=== PATIENT | male | born 1960 | race Caucasian/White ===

== ENCOUNTER → 2020-01-16 10:56 | Outpatient (BNVA) | payer MEDICAID, SELFPAY | PROVIDERS: PCP Family Medicine; Visit Provider Internal Medicine | DX: Z95.2 Presence of prosthetic heart valve (principal); Z51.81 Encounter for therapeutic drug level monitoring; Z79.01 Long term (current) use of anticoagulants | CPT/HCPCS: 85610; 99211 ==

== ENCOUNTER → 2020-01-23 09:07 | Outpatient (REF) | payer MEDICAID, SELFPAY ==
--- NOTE | 2020-01-23 | NM_ITS ---
Myocardial perfusion study Indication: Atypical chest pain is identified. Patient with cardiomyopathy to evaluate for myocardial ischemia Technique: The patient was brought in for a Lexiscan perfusion study on 01/23/2020. Patient performed low-level exercise and was injected 0.4 mg of Lexiscan intravenously. Within a minute of injection, 25 mCi of sestamibi was given intravenously. Images were obtained using the SPECT gamma camera interlaced with the gating device. Images were obtained in supine position. Resting perfusion study was performed on 01/29/2020. Patient was administered 25 mCi of sestamibi intravenously at rest. Images were then obtained in supine position. Images were obtained with and without CT attenuation. Total DLP 64 mGY-cm Images were processed with the software and compared side to side in short axis, horizontal long axis and vertical long axis views. Findings: The stress perfusion study showed non attenuated images show moderately reduced uptake in the distal septum and mildly reduced uptake in the septum as well as moderately reduced uptake in the inferior wall of the LV myocardium. Remainder of the LV myocardium is normally perfused. Attenuation corrected images show moderately reduced uptake in the distal septum and apex as well as mildly reduced uptake in the septum of the LV myocardium.. The gated study shows reduced LV systolic function with calculated LVEF of 31%. LV cavity is moderately dilated size. The gated study shows diffusely reduced wall thickening and contraction of segments. Resting study shows normal uptake of radiotracer in all segments of LV myocardium on non attenuated as well as attenuated corrected images.. Gating at rest reveals diffuse wall motion hypokinesis with ejection fraction at 40%. The findings are consistent with reversible defect of the distal septum and apex suggestive of ischemia.. NM/NM danya perf SPECT rest & str Impression: 1. Myocardial perfusion imaging study shows moderate intensity distal septum and apical ischemia 2. Gated LVEF is 31% with stress and 40% with rest 3. Transient ischemic dilatation present EKG is nondiagnostic for ischemia :
--- NOTE | 2020-01-23 09:15 | CA_ITS ---
Acquisition Time: 2020-01-23 09:30:53 Total Exercise Time: 00:02:00 Test Indications: Chest Pain Medications: WARFARIN GABEPENTIN RESPERIDOL METOPROLOL ATORVASTATIN LISINOPRIL OMEPRAZOLE Protocol: LEXISCAN Max HR: 106 BPM 65% of Pred: 162 BPM Max BP: 140/070 mmHG Max Work Load: 1.0 METS Pharmacological stress test using Lexiscan while sitting. Tolerated well, denies any anginal sx. Mild nausea from lexiscan that resolved in recovery period. EKG pt is V-pacing, LBBB, Occ. PVC's noted in recovery period. Non-diagnostic for ischemia. Nuclear images to follow. Normotensive response to test. Test reviewed with Dr. Woodruff. Referred By: Greta Vasquez Overread By: Ashley Sanchez
== END ==
LOC: HO.CARD 09:07
PROVIDERS: PCP Family Medicine; Visit Provider Physician Assistant Medical
DX: R07.9 Chest pain, unspecified (principal); R06.02 Shortness of breath
CPT/HCPCS: 78452; 93017; A9500; J0280; J2785

== ENCOUNTER → 2020-01-29 14:07 | Outpatient (BNVA) | payer MEDICAID, SELFPAY | PROVIDERS: PCP Family Medicine; Referring Provider Family Medicine; Visit Provider Internal Medicine | DX: Z95.2 Presence of prosthetic heart valve (principal); Z51.81 Encounter for therapeutic drug level monitoring; Z79.01 Long term (current) use of anticoagulants | CPT/HCPCS: 85610; 99211 ==

== ENCOUNTER 2020-02-13 09:38 | Outpatient (REF) | payer MEDICAID, SELFPAY ==
[2020-02-13 10:48] LABS: INTERNATIONAL NORM RATIO 1.7 (0.9-1.1); Prothrombin Time 20.3 SEC (10.8-13.0)
== END 2020-02-13 09:39 | disposition home or self-care (01) ==
LOC: HO.LAB 09:38
PROVIDERS: PCP Family Medicine; Visit Provider Physician Assistant Medical
DX: I50.30 Unspecified diastolic (congestive) heart failure (principal); F10.10 Alcohol abuse, uncomplicated; F14.10 Cocaine abuse, uncomplicated; Z95.2 Presence of prosthetic heart valve; J45.909 Unspecified asthma, uncomplicated; G45.9 Transient cerebral ischemic attack, unspecified; K22.70 Barrett's esophagus without dysplasia; K70.9 Alcoholic liver disease, unspecified; D69.6 Thrombocytopenia, unspecified
CPT/HCPCS: 36415; 85610; 99212

== ENCOUNTER → 2020-02-27 09:36 | Outpatient (BNVA) | payer MEDICAID, SELFPAY | PROVIDERS: PCP Family Medicine; Visit Provider Internal Medicine | DX: Z95.2 Presence of prosthetic heart valve (principal); Z51.81 Encounter for therapeutic drug level monitoring; Z79.01 Long term (current) use of anticoagulants | CPT/HCPCS: 85610; 99211 ==

== ENCOUNTER → 2020-03-19 09:24 | Outpatient (BNVA) | payer MEDICAID, SELFPAY | PROVIDERS: PCP Family Medicine; Visit Provider Internal Medicine | DX: Z95.2 Presence of prosthetic heart valve (principal); Z51.81 Encounter for therapeutic drug level monitoring; Z79.01 Long term (current) use of anticoagulants | CPT/HCPCS: 85610; 99211 ==

== ENCOUNTER 2020-04-02 13:12 | Outpatient (REF) | payer MEDICAID, SELFPAY ==
[2020-04-02 14:30] LABS: MANUAL DIFF FLAG NO
[2020-04-02 14:32] LABS: Basophils Percent Auto 0.6 % (0-2); Eosinophils Absolute Auto 0.2 X10*3/uL (0.0-0.4); Eosinophils Percent Auto 2.6 % (0-4); Hematocrit 36.9 % (42-52); Hemoglobin 12.1 g/dl (14.0-18.0); Imm Gran Abs Auto 0.03 X10*3/uL (0.00-0.03); Imm Gran Pct Auto 0.4 % (0.0-0.4); Lymphocytes Absolute Auto 1.8 X10*3/uL (1.2-4.9); Lymphocytes Percent Auto 25.3 % (20-40); Mean Corpuscular HGB Conc 32.8 g/dl (31.0-36.0); Mean Corpuscular Hemoglobin 30.3 pg (27.0-33.0); Mean Corpuscular Volume 92.5 fL (80-98); Mean Platelet Volume 9.4 fL (9.4-12.4); Monocytes Absolute Auto 0.8 X10*3/uL (0.1-1.2); Monocytes Percent Auto 11.2 % (2-11); Neutrophils Absolute Auto 4.3 X10*3/uL (2.0-8.3); Neutrophils Percent Auto 59.9 % (45-73); Platelet Count 284 X10*3/uL (160-400); Red Blood Count 3.99 X10*6/uL (4.60-5.80); Red Cell Distribution Width 19.5 % (11.0-16.0); White Blood Count 7.2 X10*3/uL (4.8-10.8)
[2020-04-02 14:38] LABS: INTERNATIONAL NORM RATIO 1.2 (0.9-1.1); Prothrombin Time 14.4 SEC (10.8-13.0)
[2020-04-02 15:06] LABS: Anion Gap 11 (12-20); Blood Urea Nitrogen 12 mg/dL (9-16); Calcium 9.1 mg/dL (8.4-10.2); Carbon Dioxide 28 mmol/L (22-29); Chloride 103 mmol/L (96-108); Estimated Glomerular Filt Rate > 60; Glucose Random 95 mg/dL (60-115); Potassium 4.8 mmol/l (3.3-5.1); Sodium 137 mmol/L (135-145)
== END 2020-04-02 13:13 | disposition home or self-care (01) ==
LOC: HO.LAB 13:12
PROVIDERS: PCP Family Medicine; Visit Provider Physician Assistant Medical
DX: I11.0 Hypertensive heart disease with heart failure (principal); I50.20 Unspecified systolic (congestive) heart failure; I35.9 Nonrheumatic aortic valve disorder, unspecified; E78.5 Hyperlipidemia, unspecified; I42.9 Cardiomyopathy, unspecified
CPT/HCPCS: 36415; 80048; 85025; 85610; 99211

== ENCOUNTER → 2020-04-08 13:24 | Outpatient (BNVA) | payer MEDICAID, SELFPAY | PROVIDERS: PCP Family Medicine; Visit Provider Internal Medicine | DX: Z95.2 Presence of prosthetic heart valve (principal); Z51.81 Encounter for therapeutic drug level monitoring; Z79.01 Long term (current) use of anticoagulants | CPT/HCPCS: 85610; 99211 ==

== ENCOUNTER → 2020-04-16 13:15 | Outpatient (BNVA) | payer MEDICAID, SELFPAY | PROVIDERS: PCP Family Medicine; Visit Provider Internal Medicine | DX: Z95.2 Presence of prosthetic heart valve (principal); Z51.81 Encounter for therapeutic drug level monitoring; Z79.01 Long term (current) use of anticoagulants | CPT/HCPCS: 85610; 99211 ==

== ENCOUNTER → 2020-04-19 13:07 | Outpatient (BNVA) | payer MEDICAID, SELFPAY | PROVIDERS: PCP Family Medicine; Visit Provider Internal Medicine | DX: Z95.2 Presence of prosthetic heart valve (principal); Z51.81 Encounter for therapeutic drug level monitoring; Z79.01 Long term (current) use of anticoagulants | CPT/HCPCS: 85610; 99211 ==

== ENCOUNTER 2020-05-15 13:18 | Outpatient (REF) | payer MEDICAID, SELFPAY ==
[2020-05-15 14:13] LABS: MANUAL DIFF FLAG NO
[2020-05-15 14:22] LABS: INTERNATIONAL NORM RATIO 1.9 (0.9-1.1); Prothrombin Time 22.9 SEC (10.8-13.0)
[2020-05-15 14:30] LABS: Basophils Percent Auto 0.4 % (0-2); Eosinophils Absolute Auto 0.3 X10*3/uL (0.0-0.4); Eosinophils Percent Auto 3.3 % (0-4); Hematocrit 40.1 % (42-52); Hemoglobin 13.1 g/dl (14.0-18.0); Imm Gran Abs Auto 0.04 X10*3/uL (0.00-0.03); Imm Gran Pct Auto 0.5 % (0.0-0.4); Lymphocytes Absolute Auto 1.6 X10*3/uL (1.2-4.9); Lymphocytes Percent Auto 21.1 % (20-40); Mean Corpuscular HGB Conc 32.7 g/dl (31.0-36.0); Mean Corpuscular Hemoglobin 30.5 pg (27.0-33.0); Mean Corpuscular Volume 93.3 fL (80-98); Mean Platelet Volume 10.3 fL (9.4-12.4); Monocytes Absolute Auto 0.8 X10*3/uL (0.1-1.2); Monocytes Percent Auto 10.5 % (2-11); Neutrophils Absolute Auto 4.8 X10*3/uL (2.0-8.3); Neutrophils Percent Auto 64.2 % (45-73); Platelet Count 233 X10*3/uL (160-400); Red Cell Distribution Width 17.1 % (11.0-16.0); White Blood Count 7.5 X10*3/uL (4.8-10.8)
[2020-05-15 14:36] LABS: Anion Gap 15 (12-20); Blood Urea Nitrogen 19 mg/dL (9-16); Calcium 9.2 mg/dL (8.4-10.2); Carbon Dioxide 27 mmol/L (22-29); Chloride 103 mmol/L (96-108); Estimated Glomerular Filt Rate > 60; Glucose Random 117 mg/dL (60-115); Potassium 4.3 mmol/L (3.3-5.1); Sodium 141 mmol/L (135-145)
== END 2020-05-15 13:19 | disposition home or self-care (01) ==
LOC: HO.LAB 13:18
PROVIDERS: PCP Family Medicine; Visit Provider Physician Assistant Medical
DX: R07.9 Chest pain, unspecified (principal); I10 Essential (primary) hypertension; Z87.19 Personal history of other diseases of the digestive system
CPT/HCPCS: 36415; 80048; 85025; 85610; 99211

== ENCOUNTER → 2020-05-24 11:24 | Outpatient (BNVA) | payer MEDICAID, SELFPAY | PROVIDERS: PCP Family Medicine; Visit Provider Internal Medicine | DX: Z95.2 Presence of prosthetic heart valve (principal); Z51.81 Encounter for therapeutic drug level monitoring; Z79.01 Long term (current) use of anticoagulants | CPT/HCPCS: Q3014 ==

== ENCOUNTER → 2020-05-27 13:18 | Outpatient (BNVA) | payer MEDICAID, SELFPAY | PROVIDERS: PCP Family Medicine; Visit Provider Internal Medicine | DX: Z95.2 Presence of prosthetic heart valve (principal); Z51.81 Encounter for therapeutic drug level monitoring; Z79.01 Long term (current) use of anticoagulants | CPT/HCPCS: 99211 ==

== ENCOUNTER → 2020-05-29 12:11 | Outpatient (BNVA) | payer MEDICAID, SELFPAY | PROVIDERS: PCP Family Medicine; Visit Provider Internal Medicine | DX: Z95.2 Presence of prosthetic heart valve (principal); Z51.81 Encounter for therapeutic drug level monitoring; Z79.01 Long term (current) use of anticoagulants | CPT/HCPCS: Q3014 ==

== ENCOUNTER → 2020-05-31 13:40 | Outpatient (BNVA) | payer MEDICAID, SELFPAY | PROVIDERS: PCP Family Medicine; Visit Provider Internal Medicine | DX: Z95.2 Presence of prosthetic heart valve (principal); Z51.81 Encounter for therapeutic drug level monitoring; Z79.01 Long term (current) use of anticoagulants | CPT/HCPCS: Q3014 ==

== ENCOUNTER → 2020-06-04 11:48 | Outpatient (BNVA) | payer MEDICAID, SELFPAY | PROVIDERS: PCP Family Medicine; Visit Provider Internal Medicine | DX: Z95.2 Presence of prosthetic heart valve (principal); Z51.81 Encounter for therapeutic drug level monitoring; Z79.01 Long term (current) use of anticoagulants | CPT/HCPCS: Q3014 ==

== ENCOUNTER → 2020-06-11 13:42 | Outpatient (BNVA) | payer MEDICAID, SELFPAY | PROVIDERS: PCP Family Medicine; Visit Provider Internal Medicine | DX: Z95.2 Presence of prosthetic heart valve (principal); Z51.81 Encounter for therapeutic drug level monitoring; Z79.01 Long term (current) use of anticoagulants | CPT/HCPCS: Q3014 ==

== ENCOUNTER → 2020-06-18 15:29 | Outpatient (BNVA) | payer MEDICAID, SELFPAY | PROVIDERS: PCP Family Medicine; Visit Provider Internal Medicine | DX: Z95.2 Presence of prosthetic heart valve (principal); Z51.81 Encounter for therapeutic drug level monitoring; Z79.01 Long term (current) use of anticoagulants | CPT/HCPCS: Q3014 ==

== ENCOUNTER → 2020-06-25 11:21 | Outpatient (BNVA) | payer MEDICAID, SELFPAY | PROVIDERS: PCP Family Medicine; Visit Provider Internal Medicine | DX: Z95.2 Presence of prosthetic heart valve (principal); Z51.81 Encounter for therapeutic drug level monitoring; Z79.01 Long term (current) use of anticoagulants | CPT/HCPCS: Q3014 ==

== ENCOUNTER → 2020-07-02 12:05 | Outpatient (BNVA) | payer MEDICAID, SELFPAY | PROVIDERS: PCP Family Medicine; Visit Provider Internal Medicine | DX: Z95.2 Presence of prosthetic heart valve (principal); Z51.81 Encounter for therapeutic drug level monitoring; Z79.01 Long term (current) use of anticoagulants | CPT/HCPCS: Q3014 ==

== ENCOUNTER → 2020-07-09 11:34 | Outpatient (BNVA) | payer MEDICAID, SELFPAY | PROVIDERS: PCP Family Medicine; Visit Provider Internal Medicine | DX: Z95.2 Presence of prosthetic heart valve (principal); Z79.01 Long term (current) use of anticoagulants; Z51.81 Encounter for therapeutic drug level monitoring | CPT/HCPCS: Q3014 ==

== ENCOUNTER → 2020-07-16 15:51 | Outpatient (BNVA) | payer MEDICAID, SELFPAY | PROVIDERS: PCP Family Medicine; Visit Provider Internal Medicine | DX: Z95.2 Presence of prosthetic heart valve (principal); Z79.01 Long term (current) use of anticoagulants; Z51.81 Encounter for therapeutic drug level monitoring | CPT/HCPCS: Q3014 ==

== ENCOUNTER → 2020-07-23 14:59 | Outpatient (BNVA) | payer MEDICAID, SELFPAY | PROVIDERS: PCP Family Medicine; Visit Provider Internal Medicine | DX: Z95.2 Presence of prosthetic heart valve (principal); Z79.01 Long term (current) use of anticoagulants; Z51.81 Encounter for therapeutic drug level monitoring | CPT/HCPCS: Q3014 ==

== ENCOUNTER → 2020-07-26 11:29 | Outpatient (BNVA) | payer MEDICAID, SELFPAY | PROVIDERS: PCP Family Medicine; Visit Provider Internal Medicine | DX: Z95.2 Presence of prosthetic heart valve (principal); Z79.01 Long term (current) use of anticoagulants; Z51.81 Encounter for therapeutic drug level monitoring | CPT/HCPCS: Q3014 ==

== ENCOUNTER → 2020-08-02 10:50 | Outpatient (BNVA) | payer MEDICAID, SELFPAY | PROVIDERS: PCP Family Medicine; Visit Provider Internal Medicine | DX: Z95.2 Presence of prosthetic heart valve (principal); Z51.81 Encounter for therapeutic drug level monitoring; Z79.01 Long term (current) use of anticoagulants | CPT/HCPCS: Q3014 ==

== ENCOUNTER → 2020-08-07 11:27 | Outpatient (BNVA) | payer MEDICAID, SELFPAY | PROVIDERS: PCP Family Medicine; Visit Provider Internal Medicine | DX: Z51.81 Encounter for therapeutic drug level monitoring (principal) | CPT/HCPCS: Q3014 ==

== ENCOUNTER → 2020-08-09 16:46 | Outpatient (BNVA) | payer MEDICAID, SELFPAY | PROVIDERS: PCP Family Medicine; Visit Provider Internal Medicine | DX: Z95.2 Presence of prosthetic heart valve (principal); Z79.01 Long term (current) use of anticoagulants; Z51.81 Encounter for therapeutic drug level monitoring | CPT/HCPCS: Q3014 ==

== ENCOUNTER → 2020-08-16 10:54 | Outpatient (BNVA) | payer MEDICAID, SELFPAY | PROVIDERS: PCP Internal Medicine; Visit Provider Internal Medicine ==

== ENCOUNTER → 2020-08-23 13:46 | Outpatient (BNVA) | payer MEDICAID, SELFPAY | PROVIDERS: PCP Internal Medicine; Visit Provider Internal Medicine | DX: Z95.2 Presence of prosthetic heart valve (principal); Z51.81 Encounter for therapeutic drug level monitoring; Z79.01 Long term (current) use of anticoagulants | CPT/HCPCS: Q3014 ==

== ENCOUNTER → 2020-08-26 10:54 | Outpatient (BNVA) | payer MEDICAID, SELFPAY | PROVIDERS: PCP Family Medicine; Visit Provider Internal Medicine | DX: Z95.2 Presence of prosthetic heart valve (principal) | CPT/HCPCS: Q3014 ==

== ENCOUNTER → 2020-08-30 14:50 | Outpatient (BNVA) | payer MEDICAID, SELFPAY | PROVIDERS: PCP Family Medicine; Visit Provider Internal Medicine ==

== ENCOUNTER → 2020-09-06 12:13 | Outpatient (BNVA) | payer MEDICAID, SELFPAY | PROVIDERS: PCP Family Medicine; Visit Provider Internal Medicine ==

== ENCOUNTER → 2020-09-13 15:52 | Outpatient (BNVA) | payer MEDICAID, SELFPAY | PROVIDERS: PCP Family Medicine; Visit Provider Internal Medicine ==

== ENCOUNTER → 2020-09-20 12:01 | Outpatient (BNVA) | payer MEDICAID, SELFPAY | PROVIDERS: PCP Family Medicine; Visit Provider Internal Medicine ==

== ENCOUNTER → 2020-09-26 08:41 | Outpatient (BNVA) | payer MEDICAID, SELFPAY | PROVIDERS: PCP Family Medicine; Visit Provider Nurse Practitioner ==

== ENCOUNTER → 2020-09-27 12:05 | Outpatient (BNVA) | payer MEDICAID, SELFPAY | PROVIDERS: PCP Family Medicine; Visit Provider Internal Medicine ==

== ENCOUNTER → 2020-10-04 12:01 | Outpatient (BNVA) | payer MEDICAID, SELFPAY | PROVIDERS: PCP Family Medicine; Visit Provider Internal Medicine | DX: Z95.2 Presence of prosthetic heart valve (principal) | CPT/HCPCS: Q3014 ==

== ENCOUNTER → 2020-10-11 15:34 | Outpatient (BNVA) | payer MEDICAID, SELFPAY | PROVIDERS: PCP Family Medicine; Visit Provider Internal Medicine ==

== ENCOUNTER 2020-10-18 02:51 | Inpatient (IN) | payer MEDICAID, SELFPAY ==
[2020-10-18] VITALS (12 sets, daily range): BP systolic 110–131; BP diastolic 62–72; PULSE 78–123; RESP 11–28; TEMP 36.4–36.8; O2SAT 94–98; BMI 23.0
--- NOTE | 2020-10-18 | ECG_ITS ---
Test Reason : CHEST PAIN Blood Pressure : / mmHG Vent. Rate : 102 BPM Atrial Rate : 102 BPM P-R Int : 156 ms QRS Dur : 164 ms QT Int : 400 ms P-R-T Axes : 025 072 259 degrees QTc Int : 521 ms Atrial-sensed ventricular-paced rhythm Abnormal ECG When compared with ECG of 19;46 Vent. rate has decreased 7bpm Referred By: Ne Trejo Electronically Signed By:Roosevelt Woodruff
--- NOTE | ~2020-10-18 | CT_ITS ---
EXAMINATION: CONTRAST-ENHANCED CT OF THE CHEST; CONTRAST-ENHANCED CT OF THE ABDOMEN AND PELVIS INDICATION: Cough, shortness of breath, diffuse abdominal discomfort COMPARISON: 05/20/2019 TECHNIQUE: 85 mL Omnipaque 350 IV contrast was utilized. Multidetector helical imaging was performed through the chest, abdomen, and pelvis. Coronal and sagittal reformatted images were created at the technologist workstation. DLP: 1535 mGy-cm DOSE LOWERING TECHNIQUES: This CT examination was performed using dose optimization techniques as appropriate, variously including the following: - Automated exposure control - Adjustment of mA and/or kV according to patient size (this includes techniques or standardized protocols for targeted exams were dose is matched to indication/reason for exam; i.e. extremities or head) - Use of iterative reconstruction technique FINDINGS: Chest: There is mild subsegmental atelectasis bilaterally without additional consolidation. Detailed assessment of the lung parenchyma is limited due to respiratory motion artifact. No pneumothorax or pleural effusion. The visualized thyroid gland is unremarkable. There are subcentimeter mediastinal lymph nodes within the range of normal variation. Mild cardiomegaly; no pericardial effusion. There are scattered calcifications along the aorta. Pacer wires and prosthetic aortic valve noted. Coronary artery calcifications are present. No axillary lymphadenopathy is present. Status post sternotomy. Degenerative changes are noted in the spine. Abdomen/Pelvis: The liver is homogeneous in attenuation without intrahepatic biliary ductal dilatation. Small hypodensity near the gallbladder fundus is too small to characterize, unchanged from 04/08/2018 and likely a cyst. The gallbladder is unremarkable. Redemonstrated calcification along the inferior aspect of the spleen with overlying contour deformity which may reflect scarring. The pancreas and adrenal glands are within normal limits. Bilateral nephrograms are symmetric. No hydronephrosis. No obstructing renal or ureteral calculi are present. A 3 mm calculus is noted in the mid to upper left kidney medially. The urinary bladder is unremarkable. The prostate and seminal vesicles are unremarkable. The small and large bowel are unremarkable without evidence of obstruction or pericolonic inflammatory change. No free fluid or free air is identified. There is atherosclerotic calcification along the aorta and iliac arteries. No retroperitoneal or pelvic lymphadenopathy is seen. Degenerative changes are noted in the spine. CT/CT abdomen pelvis w con IMPRESSION: No acute findings identified in the chest/abdomen/pelvis. Chronic appearing changes as described above.
--- NOTE | ~2020-10-18 | XR_ITS ---
EXAMINATION: XR CHEST CLINICAL INFORMATION: Chest pain COMPARISON: 09/22/2019 TECHNIQUE: Frontal view of the chest was obtained. FINDINGS: Right-sided pacemaker lead tips overlie the right atrium and right ventricle. Redemonstrated sternal wires and aortic valve prosthesis. Lung volumes are symmetric. No focal consolidation is seen. No evidence of pneumothorax, pleural effusion, or pulmonary edema. The cardiomediastinal contour is unremarkable. No acute osseous findings are seen. XR/XR chest 1V IMPRESSION: No acute cardiopulmonary findings.
--- NOTE | ~2020-10-18 | CT_ITS ---
EXAMINATION: CT SOFT TISSUE NECK WITH CONTRAST CLINICAL INFORMATION: Sore throat, concern for epiglottitis versus abscess COMPARISON: 11/18/2016 TECHNIQUE: Following the intravenous administration of 85 mL of Omnipaque 350 intravenous contrast, helical imaging was performed in the axial plane with generation of coronal and sagittal reformatted images. This CT examination was performed using dose optimization techniques as appropriate, variously including the following: *Automated exposure control *Adjustment of mA and/or kV according to patient size (this includes techniques or standardized protocols for targeted exams where dose is matched to indication/reason for exam; i.e. extremities or head) *Use of iterative reconstruction technique DLP: 1535 mGy-cm FINDINGS: Partially limited evaluation due to motion artifact. There is a thickened appearance of the epiglottis and aryepiglottic folds. There is mild asymmetric stranding in the right cervical tissues posterior to the submandibular gland and medial to the sternocleidomastoid. There is some prevertebral soft tissue thickening in the lower neck. For no discrete abscess is seen. No cervical adenopathy is identified. The parotid glands are homogeneous in attenuation. The submandibular glands are normal. The parapharyngeal fat is preserved. There is calcification at the common carotid artery bifurcations bilaterally. No retropharyngeal fluid collection is seen. The thyroid gland is normal. The superior mediastinum is unremarkable. The lung apices are clear. There is mucosal thickening of the visualized left maxillary sinus. Included mastoid air cells are well-aerated. There are degenerative changes of the lower cervical spine with disc space narrowing and endplate osteophyte formation. The imaged portions of the brain parenchyma are unremarkable. CT/CT soft tissue neck w con IMPRESSION: Thickened appearance of the epiglottis and aryepiglottic folds, suspicious for epiglottitis. Prevertebral soft tissue thickening in the lower neck.
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
[2020-10-18] MEDS: dexAMETHasone sod phosphate 10 MG/ML VIAL IVPUSH (03:27)
[2020-10-18] MEDS: cefTRIAXone sodium 2 GM in 0.9 % Sodium Chloride 50 ML IV (03:40)
[2020-10-18 03:50] LABS: Venous Blood Gas Refer to POC result
[2020-10-18 03:50] LABS: VBG Base Excess -0.9 mmol/L; VBG HCO3 22 mmol/L (22-26); VBG pCO2 34 mmHg; VBG pH 7.42 (7.32-7.43); VBG pO2 212 mmHg
[2020-10-18 03:52] LABS: Basophils Percent Auto 0.3 % (0-2); Eosinophils Percent Auto 0.3 % (0-4); Hemoglobin 11.7 g/dl (14.0-18.0); Imm Gran Abs Auto 0.18 X10*3/uL (0.00-0.03); Imm Gran Pct Auto 1.4 % (0.0-0.4); Lymphocytes Absolute Auto 1.1 X10*3/uL (1.2-4.9); Lymphocytes Percent Auto 8.8 % (20-40); MANUAL DIFF FLAG SCAN; Mean Corpuscular HGB Conc 33.4 g/dl (31.0-36.0); Mean Corpuscular Hemoglobin 28.3 pg (27.0-33.0); Mean Corpuscular Volume 84.7 fL (80-98); Mean Platelet Volume 9.7 fL (9.4-12.4); Monocytes Absolute Auto 1.9 X10*3/uL (0.1-1.2); Monocytes Percent Auto 14.8 % (2-11); Neutrophils Absolute Auto 9.7 X10*3/uL (2.0-8.3); Neutrophils Percent Auto 74.4 % (45-73); Platelet Count 267 X10*3/uL (160-400); Red Blood Count 4.13 X10*6/uL (4.60-5.80); Red Cell Distribution Width 18.9 % (11.0-16.0); SCAN SMEAR FLAG 1
[2020-10-18 03:58] LABS: Strep A Nucleic Acid Positive (Negative)
[2020-10-18 04:00] LABS: Lactic Acid 1.1 mmol/L (0.5-2.0); SLIDE REVIEW VERIFIED
[2020-10-18 04:02] LABS: COVID-19 Test Negative (Negative); IDNOW Serial# 9DD0AD1C
[2020-10-18] MEDS: iohexoL 350 MG/ML 100 ML INFUS..BTL 85 ML IV (04:09)
[2020-10-18 04:10] LABS: B Type Natriuretic Peptide 144 pg/mL (<100); Troponin-I High Sensitivity 5.2 ng/L (<3.5-35.0)
[2020-10-18 04:13] LABS: Prothrombin Time 100.3 SEC (9.9-13.0)
[2020-10-18 04:13] LABS: Ethanol 37 mg/dL
[2020-10-18 04:19] LABS: Alanine Aminotransferase 19 U/L (0-40); Albumin Level 3.8 g/dL (3.5-5.0); Alkaline Phosphatase 120 U/L (39-117); Anion Gap 15 (12-20); Aspartate Amino Transferase 20 U/L (5-37); Bilirubin Total 0.4 mg/dL (0.0-1.0); Blood Urea Nitrogen 6 mg/dL (9-16); Calcium 8.7 mg/dL (8.4-10.2); Carbon Dioxide 21 mmol/L (22-29); Chloride 100 mmol/L (96-108); Creatinine Clr Calc Pharmacy 117.2; Estimated Glomerular Filt Rate > 60; Glucose Random 119 mg/dL (60-115); Lipase 11 U/L (8-78); Magnesium 1.4 mg/dL (1.6-2.6); Potassium 4.1 mmol/L (3.3-5.1); Sodium 132 mmol/L (135-145); Total Protein 7.2 g/dL (6.5-8.0)
[2020-10-18 04:23] LABS: INTERNATIONAL NORM RATIO 8.4 (0.9-1.1)
[2020-10-18] MEDS: Magnesium Sulfate/D5W 1 GM/100 ML PIGGYBACK IV (04:49)
[2020-10-18 05:13] LABS: Appearance Urine CLEAR; Color Urine YELLOW; Glucose Urine UA NEG (NEG); Leukocyte Esterase Urine NEG (NEG); Nitrite Urine NEG (NEG); Specific Gravity - Urine <= 1.005 (1.005-1.025); Urine Blood NEG (NEG); Urine Ketones NEG (NEG); Urine Protein NEG (NEG-TRACE)
[2020-10-18 05:34] LABS: Amphetamine Screen Urine Not Detected (Not Detect); Barbiturates, Urine Not Detected (Not Detect); Benzodiazepines Screen Urine Not Detected (Not Detect); Cannabinoid Screen Urine Not Detected (Not Detect); Cocaine Screen Urine Not Detected (Not Detect); Opiate Screen Urine Not Detected (Not Detect); Phencyclidine Screen Urine Not Detected (Not Detect)
--- NOTE | 2020-10-18 06:02 | PM.IMHP ---
History of Present Illness Date of Service: 10/18/20 Chief Complaint: Sore throat, dyspnea, cough Canadian-speaking only, history is obtained with the help of log sawyer 60-year-old male with past medical history of COPD/asthma, TIA, Harrell's esophagus, history of cocaine abuse, aortic valve replacement on anticoagulation, AAA repair, complete heart block status post pacemaker, HTN, TBI, history of lower GI bleed who presents to the hospital with complaints of sore throat, cough, sputum production, and dyspnea. Patient reports that his symptoms started 2 days ago, he denies any chest pain, reports no fever no chills, no abdominal pain, some nausea which 1 episode of vomiting, had diarrhea but resolved, no urinary symptoms and no lower extremity edema. He denies any melena, no bright red blood per rectum, no hemoptysis, no hematemesis. On arrival to the ED patient vitals are significant for temp of 98.2?, heart rate of 112, respiratory rate of 28, blood pressure of 117/65, satting 97% on room air. Patient is now 93% on room air Labs are significant for WBC count of 13, hemoglobin of 11.7, P T of 100.3?, INR of 8.4. Sodium of 132, magnesium of 1.4, BNP of 144, his serology showed positive S.Pyogenes Soft tissue neck CT showed thickened appearance of the epiglottitis and the aryepiglottic folds. Suspicious for epiglottitis. Perivertebral soft tissue thickening in the lower neck. Abdominal CT, chest CT showed no acute abnormal findings Patient will be admitted for further management Review of Systems Review of Systems: Yes all other systems are reviewed and are negative [facility] Medical History Alcohol abuse Alcoholic liver disease Cocaine abuse Hypertension Pacemaker Short-segment Harrell's esophagus Skull fracture Surgical History Aortic valve replaced History of esophagogastroduodenoscopy (EGD) Social History Household Members: None Housing: Apartment Do you presently have visiting nurse or other home services: Yes Alcohol intake: current Alcohol intake frequency: a few times a week Alcohol type: beer Patient Tobacco Use Status: Current everyday Tobacco user Tobacco use type: Cigarette Cigarette Packs Per Day: 0.5 Smoked in Last 30 Days: Yes Patient Interested in Nicotine Replacement: Yes Patient Given Instructions on How to Stop Smoking: Yes Date Education Initiated: 10/18/20 Second Hand Smoke Exposure: No Use of substances other than those prescribed or required for medical reasons: No Substance Use Type: Crack/Cocaine Substance Use Frequency: Chronic Longstanding Currently Displaying Signs/Symptoms of Drug Intoxication Withdrawal: No Have you been hit, kicked, punched, or otherwise hurt by someone within the past year? If so, by whom?: No Do you feel safe in your current relationship?: No Current Relationship Is there a partner from a previous relationship who is making you feel unsafe now?: No Are you made to feel afraid or neglected: No Advance Directives: Yes Advance Directives on File: Yes Advance Directives Date on File: 10/18/20 Do you have thoughts of harming others: None Do you have a plan to hurt others: No Plan Recently lost weight without trying: No Nutrition Risks: No Nutritional Risk service: No Current occupational status: disabled Meds Allergies Allergy/AdvReac Type Severity Reaction Status Date / Time lorazepam [From ATIVAN] AdvReac Severe OPPOSITE Verified 09/27/20 12:05 EFFECT PSYCOTIC EFECTS Home Medications Medication Instructions Recorded Confirmed Last Taken Type acetaminophen 1,000 mg PO QID PRN 04/19/20 10/18/20 Unknown History albuterol sulfate [ProAir HFA] 2 puff PO Q4-6H PRN 10/18/20 10/18/20 Unknown History melatonin 2 tab PO BEDTIME PRN 10/18/20 10/18/20 Unknown History Physical Exam Vital Signs and Narrative: Vital Signs: Last Vital Signs Temp 98.2 F 10/18/20 03:06 Pulse 112 H 10/18/20 03:06 Resp 28 H 10/18/20 03:06 BP 117/65 10/18/20 03:06 Pulse Ox 97 10/18/20 03:06 Body Mass Index 23.0 Const: Other: Patient appears comfortable, in no respiratory distress, able to speak in sentences with no difficulty General: cooperative and no acute distress Orientation/consciousness: patient oriented x3 Eyes: General: appearance normal, both eyes and all related structures Resp: Other: Minimal stridor, rhonchi bilaterally Effort & Inspection: normal respiratory effort and able to speak in complete sentences Cardio: Rate: regular rate Rhythm: regular rhythm GI: Palpation (GI): Soft to palpation Auscultation: normal bowel sounds Skin: General skin exam: no rashes or lesions noted Neuro: General: patient oriented x3 Cognition (Neuro): normal cognition Extrem: General: Yes normal to inspection and Yes no pedal edema Results Labs CBC and Chem 7: 10/19/20 05:42 10/19/20 05:42 Labs: Laboratory Results - last 24 hr 10/18/20 10/18/20 10/18/20 03:39 03:39 03:39 MCV 84.7 MCH 28.3 MCHC 33.4 RDW 18.9 H Plt Count 267 MPV 9.7 Immature Gran % (Auto) 1.4 H Neut % (Auto) 74.4 H Lymph % (Auto) 8.8 L [place] % (Auto) 14.8 H Eos % (Auto) 0.3 Baso % (Auto) 0.3 Lymph # (Auto) 1.1 L [place] # (Auto) 1.9 H Eos # (Auto) 0.0 Baso # (Auto) 0.0 Abs Immat Gran (auto) 0.18 H Absolute Neuts (auto) 9.7 H Absolute Nucleated RBC 0.000 Nucleated RBC % (auto) 0.0 Smear Tech's Comments VERIFIED PT INR VBG pH VBG pCO2 VBG pO2 VBG HCO3 VBG O2 Saturation VBG Base Excess Anion Gap 15 Estim Creat Clear Calc 117.2 Estimated GFR > 60 Random Glucose 119 H Lactic Acid 1.1 Calcium 8.7 Magnesium 1.4 L* Total Bilirubin 0.4 AST 20 ALT 19 Alkaline Phosphatase 120 H Troponin I High Sens B-Natriuretic Peptide Total Protein 7.2 Albumin 3.8 Lipase 11 Urine Color Urine Appearance Urine pH Ur Specific [place] Urine Protein Urine Glucose (UA) Urine Ketones Urine Blood Urine Nitrite Ur Leukocyte Esterase Urine Opiates Screen Ur Barbiturates Screen Ur Phencyclidine Scrn Ur Amphetamines Screen U Benzodiazepines Scrn Urine Cocaine Screen U Marijuana (THC) Screen Ethyl Alcohol COVID-19 (VICTOR M) COVID-19 Clin Com S. pyogenes GrpA PRATIMA 10/18/20 10/18/20 10/18/20 03:39 03:39 03:39 MCV MCH MCHC RDW Plt Count MPV Immature Gran % (Auto) Neut % (Auto) Lymph % (Auto) [place] % (Auto) Eos % (Auto) Baso % (Auto) Lymph # (Auto) [place] # (Auto) Eos # (Auto) Baso # (Auto) Abs Immat Gran (auto) Absolute Neuts (auto) Absolute Nucleated RBC Nucleated RBC % (auto) Smear Tech's Comments PT INR VBG pH VBG pCO2 VBG pO2 VBG HCO3 VBG O2 Saturation VBG Base Excess Anion Gap Estim Creat Clear Calc Estimated GFR Random Glucose Lactic Acid Calcium Magnesium Total Bilirubin AST ALT Alkaline Phosphatase Troponin I High Sens 5.2 B-Natriuretic Peptide 144 H Total Protein Albumin Lipase Urine Color Urine Appearance Urine pH Ur Specific [place] Urine Protein Urine Glucose (UA) Urine Ketones Urine Blood Urine Nitrite Ur Leukocyte Esterase Urine Opiates Screen Ur Barbiturates Screen Ur Phencyclidine Scrn Ur Amphetamines Screen U Benzodiazepines Scrn Urine Cocaine Screen U Marijuana (THC) Screen Ethyl Alcohol 37 COVID-19 (VICTOR M) Negative COVID-19 Clin Com See Note S. pyogenes GrpA PRATIMA 10/18/20 10/18/20 10/18/20 03:39 03:42 03:46 MCV MCH MCHC RDW Plt Count MPV Immature Gran % (Auto) Neut % (Auto) Lymph % (Auto) [place] % (Auto) Eos % (Auto) Baso % (Auto) Lymph # (Auto) [place] # (Auto) Eos # (Auto) Baso # (Auto) Abs Immat Gran (auto) Absolute Neuts (auto) Absolute Nucleated RBC Nucleated RBC % (auto) Smear Tech's Comments PT 100.3 H INR 8.4 H* D VBG pH 7.42 VBG pCO2 34 VBG pO2 212 VBG HCO3 22 VBG O2 Saturation 99.0 VBG Base Excess -0.9 Anion Gap Estim Creat Clear Calc Estimated GFR Random Glucose Lactic Acid Calcium Magnesium Total Bilirubin AST ALT Alkaline Phosphatase Troponin I High Sens B-Natriuretic Peptide Total Protein Albumin Lipase Urine Color Urine Appearance Urine pH Ur Specific [place] Urine Protein Urine Glucose (UA) Urine Ketones Urine Blood Urine Nitrite Ur Leukocyte Esterase Urine Opiates Screen Ur Barbiturates Screen Ur Phencyclidine Scrn Ur Amphetamines Screen U Benzodiazepines Scrn Urine Cocaine Screen U Marijuana (THC) Screen Ethyl Alcohol COVID-19 (VICTOR M) COVID-19 Clin Com S. pyogenes GrpA PRATIMA Positive A 10/18/20 10/18/20 05:07 05:07 MCV MCH MCHC RDW Plt Count MPV Immature Gran % (Auto) Neut % (Auto) Lymph % (Auto) [place] % (Auto) Eos % (Auto) Baso % (Auto) Lymph # (Auto) [place] # (Auto) Eos # (Auto) Baso # (Auto) Abs Immat Gran (auto) Absolute Neuts (auto) Absolute Nucleated RBC Nucleated RBC % (auto) Smear Tech's Comments PT INR VBG pH VBG pCO2 VBG pO2 VBG HCO3 VBG O2 Saturation VBG Base Excess Anion Gap Estim Creat Clear Calc Estimated GFR Random Glucose Lactic Acid Calcium Magnesium Total Bilirubin AST ALT Alkaline Phosphatase Troponin I High Sens B-Natriuretic Peptide Total Protein Albumin Lipase Urine Color YELLOW Urine Appearance CLEAR Urine pH 6.0 Ur Specific [place] <= 1.005 Urine Protein NEG Urine Glucose (UA) NEG Urine Ketones NEG Urine Blood NEG Urine Nitrite NEG Ur Leukocyte Esterase NEG Urine Opiates Screen Not Detected Ur Barbiturates Screen Not Detected Ur Phencyclidine Scrn Not Detected Ur Amphetamines Screen Not Detected U Benzodiazepines Scrn Not Detected Urine Cocaine Screen Not Detected U Marijuana (THC) Screen Not Detected Ethyl Alcohol COVID-19 (VICTOR M) COVID-19 Clin Com S. pyogenes GrpA PRATIMA Imaging Radiologist's Impressions: Impressions Chest X-Ray 10/18/20 03:14 IMPRESSION: No acute cardiopulmonary findings. Soft Tissue Neck CT 10/18/20 03:29 IMPRESSION: Thickened appearance of the epiglottis and aryepiglottic folds, suspicious for epiglottitis. Prevertebral soft tissue thickening in the lower neck. Abdomen/Pelvis CT 10/18/20 03:37 IMPRESSION: No acute findings identified in the chest/abdomen/pelvis. Chronic appearing changes as described above. Chest CT 10/18/20 03:53 IMPRESSION: No acute findings identified in the chest/abdomen/pelvis. Chronic appearing changes as described above. Assessment and Plan (1) Sepsis: Status: Acute (2) Epiglottitis: Status: Acute (3) Hypomagnesemia: Status: Acute (4) Strep pharyngitis: Status: Acute (5) Supratherapeutic INR: Status: Acute (6) Asthma with COPD with exacerbation: Status: Acute This is a 60-year-old male with past medical history of asthma/COPD, aortic valve replacement, TBI, presents to the hospital with complaints of sore throat, shortness of breath, cough and sputum production # sepsis - possible source for angiitis versus COPD - has tachycardia, tachypnea, leukocytosis - afebrile - started on broad-spectrum antibiotics - follow cultures # asthma/COPD exacerbation - cough, dyspnea, sputum production - will start him on Solu-Medrol 40 IV b.i.d., DuoNeb scheduled and p.r.n. - monitor respiratory status # epiglottitis - S. pyogenes positive - as well as CT imaging suggestive of pancolitis - patient maintaining airway, able to speak in full sentences with no respiratory distress, satting 93% on room air - will start him on broad-spectrum antibiotics - will monitor respiratory status with low threshold for intubation although patient is completely hemodynamically stable and not requiring any oxygen supplementation # supratherapeutic INR - patient on Coumadin for history of aortic valve replacement - no active bleed, hemoglobin stable - will hold Coumadin - give vitamin K incase of need for intubation - follow PT INR # hypomagnesemia - repleted - will repeat Mag level All other chronic medications will be reconciled once reviewed by ED/pharmacy staff DVT prophylaxis: Warfarin Quality Stroke Does the patient have a stroke diagnosis?: No VTE Prior VTE?: No VTE Risk Level:: Medical - moderate - high VTE Device Contraindication: Treatment Not Indicated VTE Drug Contraindication: N/A - Med Ordered
[2020-10-18] MEDS: Throat Lozenge, Medicated LOZENGE 1 LOZENGE MUCOUS MEM (06:10)
[2020-10-18] MEDS: Phytonadione (Vit K1) 5 MG in 0.9 % Sodium Chloride 50 ML 50.5 MG IV (06:43)
[2020-10-18 07:26] LABS: Magnesium 1.9 mg/dL (1.6-2.6)
[2020-10-18] MEDS: vancomycin HCL 1,500 MG in 0.9 % Sodium Chloride 500 ML 333.33 MG IV (07:55)
[2020-10-18] MEDS: Albuterol/Iprat 2.5/0.5MG 3 ML AMPUL.NEB INHALE ×4 (07:58→20:16)
--- NOTE | 2020-10-18 08:00 | PC.NURSE ---
pt arousable to voice. asks for food. explained patient condition was not such that he could eat. Meds administered as ordered; RT in room for updraft
[2020-10-18] MEDS: methylPREDNISolone Sod Succ 40 MG/ML VIAL IVPUSH ×2 (08:57→19:06)
--- NOTE | 2020-10-18 12:22 | PM.EVENT ---
Event Note Date of Service: 10/18/20 Event Note: Patient was seen and evaluated this morning Reporting feeling better, speech has improved but he still complaining of throat pain To continue steroids, antibiotic of vancomycin and ceftriaxone will touch base with transfer line at [facility] and speak to ENT provider to see if the patient needs transfer and to get advise about treatment
[2020-10-18] MEDS: Ketorolac Tromethamine 15 MG/ML VIAL IVPUSH ×2 (12:58→20:28)
[2020-10-18] MEDS: 0.9 % Sodium Chloride Flush 3 ML SYRINGE IVFLUSH ×2 (16:41→21:35)
[2020-10-18] MEDS: Acetaminophen 325 MG TABLET 650 MG PO ×2 (16:41→23:35)
[2020-10-18] MEDS: vancomycin HCL 1,000 MG in 0.9 % Sodium Chloride 250 ML 270 MG IV (20:28)
[2020-10-18] MEDS: Melatonin 3 MG TABLET 9 MG PO (20:52)
[2020-10-19] VITALS (9 sets, daily range): BP systolic 121–149; BP diastolic 67–84; PULSE 95–120; RESP 15–20; TEMP 36.4–37.1; O2SAT 95–100
[2020-10-19] MEDS: traZODone HCL 25 MG HALFTAB PO ×2 (00:12→23:52)
[2020-10-19] MEDS: Ketorolac Tromethamine 15 MG/ML VIAL IVPUSH ×3 (04:44→23:51)
[2020-10-19] MEDS: methylPREDNISolone Sod Succ 40 MG/ML VIAL IVPUSH ×2 (04:45→18:20)
[2020-10-19] MEDS: cefTRIAXone sodium 1 GM in 0.9 % Sodium Chloride 50 ML IV (04:48)
[2020-10-19 05:58] LABS: MANUAL DIFF FLAG NO
[2020-10-19 06:13] LABS: Basophils Percent Auto 0.1 % (0-2); Hemoglobin 11.8 g/dl (14.0-18.0); Imm Gran Abs Auto 0.28 X10*3/uL (0.00-0.03); Imm Gran Pct Auto 1.7 % (0.0-0.4); Lymphocytes Absolute Auto 0.6 X10*3/uL (1.2-4.9); Lymphocytes Percent Auto 3.7 % (20-40); Mean Corpuscular HGB Conc 33.7 g/dl (31.0-36.0); Mean Corpuscular Hemoglobin 28.6 pg (27.0-33.0); Mean Platelet Volume 10.2 fL (9.4-12.4); Monocytes Percent Auto 6.3 % (2-11); Neutrophils Absolute Auto 14.6 X10*3/uL (2.0-8.3); Neutrophils Percent Auto 88.2 % (45-73); Platelet Count 338 X10*3/uL (160-400); Red Blood Count 4.12 X10*6/uL (4.60-5.80); Red Cell Distribution Width 19.3 % (11.0-16.0); White Blood Count 16.5 X10*3/uL (4.8-10.8)
[2020-10-19 06:24] LABS: Prothrombin Time 11.2 SEC (9.9-13.0)
[2020-10-19] MEDS: vancomycin HCL 1,000 MG in 0.9 % Sodium Chloride 250 ML 270 MG IV ×2 (06:28→18:22)
[2020-10-19 06:44] LABS: Anion Gap 17 (12-20); Blood Urea Nitrogen 16 mg/dL (9-16); Carbon Dioxide 19 mmol/L (22-29); Chloride 101 mmol/L (96-108); Creatinine Clr Calc Pharmacy 108.4; Estimated Glomerular Filt Rate > 60; Glucose Random 172 mg/dL (60-115); Potassium 4.3 mmol/L (3.3-5.1); Sodium 133 mmol/L (135-145)
[2020-10-19] MEDS: 0.9 % Sodium Chloride Flush 3 ML SYRINGE IVFLUSH ×3 (07:54→23:54)
[2020-10-19] MEDS: Albuterol/Iprat 2.5/0.5MG 3 ML AMPUL.NEB INHALE (07:56)
--- NOTE | 2020-10-19 08:59 | MHC.CM.PN ---
PATIENT LIVES ALONE. HE IS FULLY INDEPENDENT WITH HIS ADLS. NO CANE OR WALKER BUT DOES FEEL HE COULD BENEFIT FROM USE OF A CANE AND IS ASKING FOR A PRESCRIPTION FOR ONE. PATIENT HAS M-F CERTIFIED HYPERBARIC TECHNICIAN SERVICES FOR ONE HOUR EACH DAY. HCP IS ON FILE AND VERIFIED. PATIENT HAS A VISITING NURSE ON [place] FOR MEDICATION MANAGEMENT AND LABS. HE IS UNABLE TO RECALL THE [facility] NAME. [facility] REFERRAL PLACED TO [facility]
[2020-10-19] MEDS: Butalb/Acetamin/Caff 50/325/40 TABLET 1 TAB PO ×2 (10:56→16:25)
[2020-10-19] MEDS: PHENobarbitaL sodium 130 MG/ML VIAL 308 MG IM (12:32)
--- NOTE | 2020-10-19 14:03 | P.PNIM_ITS ---
Subjective Subjective Date of Service: 10/19/20 Interval History: the patient was seen and evaluated this morning Laying in bed, feels anxious and having tremors Reported decrease pain in his throat added he is able to eat with no difficulty swallowing Denies any fever, chills or shortness of breath No reported other overnight events. Systemic review: No fever, chills but reports feeling anxious and having a lot of tremors No chest pain, palpitation No shortness of breath or coughing No abdominal pain, nausea or vomiting No urinary symptoms No any rash or wounds Physical Exam Vital Signs: Vital Signs: Last Vital Signs Temp 98.0 F 10/19/20 12:00 Pulse 107 H 10/19/20 12:00 Resp 19 10/19/20 12:00 BP 134/71 10/19/20 12:00 Pulse Ox 95 10/19/20 12:00 Body Mass Index 23.0 Const: Other: Constitutional : Alert, oriented, anxious, having tremors Neck : Normal inspection, Supple, no congestion on the throat but some erythema Cardiovascular : RRR, S1 S2, no lower extremity edema, tachycardia Respiratory : Good bilateral air entry, no crackles, wheezes or rhonchi Gastrointestinal: soft, lax, Normal bowel sounds, Non tender Skin : Warm/Dry, No rash Neurological : Alert & oriented x3, No focal deficit Objective Data Current Medications Generic Name Dose Route Start Last Admin Trade Name Freq PRN Reason Stop Dose Admin Acetaminophen 650 mg 10/18/20 06:22 10/18/20 23:35 Acetaminophen 325 Mg Tablet PO 650 mg Q6H PRN Administration Pain, Mild (Pain Scale 1-3) Acetaminophen/Butalbital/Caffeine 1 tab 10/19/20 10:39 10/19/20 10:56 Butalb/Acetamin/Caff 50/325/40 Tablet PO 1 tab Q4H PRN Administration Headache Albuterol/Ipratropium 3 ml 10/18/20 06:22 Albuterol/Iprat 2.5/0.5mg 3 Ml Ampul.Neb INHALE RQ4H PRN Shortness of Breath/Wheezing Docusate Sodium 100 mg 10/18/20 06:22 Docusate Sodium 100 Mg Capsule PO DAILY PRN Constipation Ceftriaxone Sodium 1 gm/ 50 mls @ 100 mls/hr 10/19/20 05:00 10/19/20 05:22 Sodium Chloride IV Infused Q24H [facility] Infusion Vancomycin HCl 1,000 mg/ 270 mls @ 270 mls/hr 10/18/20 19:00 10/19/20 07:53 Sodium Chloride IV Infused Q12H [facility] Infusion Ketorolac Tromethamine 15 mg 10/18/20 11:35 10/19/20 04:44 Ketorolac Tromethamine 15 Mg/Ml Vial IVPUSH 15 mg Q6H PRN Administration Pain, Moderate (Pain Scale 4-6 Medication 1 each 10/19/20 11:15 No Benzodiazepines MISCELLANE DAILY [facility] Melatonin 9 mg 10/18/20 20:39 10/18/20 20:52 Melatonin 3 Mg Tablet PO 9 mg BEDTIME PRN Administration insomnia Methylprednisolone Sodium Succinate 40 mg 10/18/20 06:22 10/19/20 04:45 Methylprednisolone Sod Succ 40 Mg/Ml Vial IVPUSH 40 mg Q12H [facility] Administration Ondansetron HCl 4 mg 10/18/20 06:22 Ondansetron Hcl 4 Mg/2 Ml Vial IVPUSH Q8H PRN Nausea and Vomiting Pharmacy Consult 1 each 10/18/20 06:22 Consult Rx Vancomycin Dosing MISCELLANE DAILY PRN Consult order Pharmacy Consult 1 each 10/18/20 06:33 Consult Rx Perform Med Rec MISCELLANE ONCE PRN Consult order Phenobarbital 60 mg 10/20/20 09:00 Phenobarbital 30 Mg Tablet PO 10/21/20 21:01 BID [facility] Protocol Phenobarbital 30 mg 10/22/20 09:00 Phenobarbital 30 Mg Tablet PO 10/23/20 21:01 BID [facility] Protocol Phenobarbital 30 mg 10/24/20 09:00 Phenobarbital 30 Mg Tablet PO 10/25/20 09:01 DAILY [facility] Protocol Phenobarbital Sodium 231 mg 10/19/20 14:00 Phenobarbital Sodium 130 Mg/Ml Vial IM 10/19/20 17:01 Q3H [facility] Protocol Sodium Chloride 3 ml 10/18/20 08:00 10/19/20 07:54 0.9 % Sodium Chloride Flush 3 Ml Syringe IVFLUSH 3 ml QSHIFT [facility] Administration Labs CBC & Chem 7: 10/19/20 05:42 10/19/20 05:42 Labs: Laboratory Results - last 24 hr 10/19/20 10/19/20 10/19/20 05:42 05:42 05:42 WBC 16.5 H RBC 4.12 L Hgb 11.8 L Hct 35.0 L MCV 85.0 MCH 28.6 MCHC 33.7 RDW 19.3 H Plt Count 338 D MPV 10.2 Immature Gran % (Auto) 1.7 H Neut % (Auto) 88.2 H Lymph % (Auto) 3.7 L [place] % (Auto) 6.3 Eos % (Auto) 0.0 Baso % (Auto) 0.1 Lymph # (Auto) 0.6 L [place] # (Auto) 1.0 Eos # (Auto) 0.0 Baso # (Auto) 0.0 Abs Immat Gran (auto) 0.28 H Absolute Neuts (auto) 14.6 H Absolute Nucleated RBC 0.000 Nucleated RBC % (auto) 0.0 PT 11.2 D INR 1.0 Sodium 133 L Potassium 4.3 Chloride 101 Carbon Dioxide 19 L Anion Gap 17 BUN 16 D Creatinine 0.80 Estim Creat Clear Calc 108.4 Estimated GFR > 60 Random Glucose 172 H D Calcium 9.0 Microbiology Microbiology Results: Microbiology 10/18/20 05:07 Blood Culture - Preliminary Blood - Venous No growth after 24 hours. 10/18/20 04:22 Blood Culture - Preliminary Blood - Venous No growth after 24 hours. Quality Stroke Does the patient have a stroke diagnosis?: No VTE Prior VTE?: No VTE Risk Level:: Medical - moderate - high VTE Device Contraindication: N/A - Device Ordered VTE Drug Contraindication: Treatment Not Indicated Assessment and Plan (1) Sepsis: Status: Acute (2) Epiglottitis: Status: Acute (3) Hypomagnesemia: Status: Acute (4) Strep pharyngitis: Status: Acute (5) Supratherapeutic INR: Status: Acute (6) Asthma with COPD with exacerbation: Status: Acute Assessment and Plan: This is a 60-year-old male with past medical history of asthma/COPD, aortic valve replacement, TBI, presents to the hospital with complaints of sore throat, shortness of breath, cough and sputum production # Sepsis # Secondary to epiglottitis Positive strep throat screen Improving Decrease swelling he is able to tolerate diet More Discussed with ENT team at [facility] who recommended no need for transfer as the patient is improving Continue broad-spectrum antibiotics Pending cultures # asthma/COPD exacerbation Continue Solu-Medrol 40 IV b.i.d. DuoNeb p.r.n. Xopenex nebulizer # alcohol withdrawal Daily beer drinker Start phenobarbital protocol Advised to quit drinking at all # subtherapeutic INR Who presented with INR of 8, received vitamin K Start warfarin 10 mg for now Bridge with full-dose Lovenox follow PT INR with goal 2-3 # hypomagnesemia repleted Follow Mag level DVT prophylaxis: Warfarin
[2020-10-19] MEDS: Enoxaparin Sodium 80 MG/0.8 ML SYRINGE 75 MG SUBCUT ×2 (14:57→23:55)
[2020-10-19] MEDS: PHENobarbitaL sodium 130 MG/ML VIAL 231 MG IM ×2 (14:58→18:19)
--- NOTE | 2020-10-19 15:42 | PC.NURSE ---
pt started on ciwa scale today refused to be high risk,
[2020-10-19] MEDS: Warfarin Sodium 10 MG TABLET PO (18:20)
[2020-10-19 18:57] LABS: Vancomycin Trough 8.9 mcg/mL (10.0-20.0)
[2020-10-19] MEDS: Acetaminophen 325 MG TABLET 650 MG PO (19:49)
[2020-10-19] MEDS: Melatonin 3 MG TABLET 9 MG PO (20:28)
[2020-10-20] VITALS (8 sets, daily range): BP systolic 121–150; BP diastolic 69–79; PULSE 96–106; RESP 15–19; TEMP 36.2–36.7; O2SAT 93–98
[2020-10-20] MEDS: Acetaminophen 325 MG TABLET 650 MG PO (03:27)
[2020-10-20] MEDS: cefTRIAXone sodium 1 GM in 0.9 % Sodium Chloride 50 ML IV (03:44)
[2020-10-20] MEDS: Ketorolac Tromethamine 15 MG/ML VIAL IVPUSH ×4 (05:00→23:30)
--- NOTE | 2020-10-20 05:35 | PC.NURSE ---
Patient c/o severe pain to left deltoid. Swollen and hardened with some bruising. Same temperature as surrounding tissues. Pain not totally relieved by Tylenol and Toradol. Also elevated, also ice packs. Patient stated pain started after phenobarbitol injections. Weaver Hand assessed and requested MD to see patient.
--- NOTE | 2020-10-20 05:59 | P.EN_ITS ---
Event Note Date of Service: 10/20/20 Event Note: pt complaining of pain at the site of left deltoid phenobarb injec tion site. has decreased ROM due to pain, no numbness tingling or parasthesia at the site.; no evidence of significant edema. will apply warm compress, monitor for worsening pain/prosthesia
--- NOTE | 2020-10-20 06:07 | PC.NURSE ---
MD in to see patient ,ordered warm compress and directed us to monitor for increased or migrating swelling/hardness and notify
[2020-10-20 06:41] LABS: INTERNATIONAL NORM RATIO 1.1 (0.9-1.1); Prothrombin Time 12.3 SEC (9.9-13.0)
[2020-10-20] MEDS: oxyCODONE HCl Immed Release 5 MG TABLET PO ×3 (06:50→20:38)
[2020-10-20 06:56] LABS: Anion Gap 15 (12-20); Blood Urea Nitrogen 19 mg/dL (9-16); Calcium 8.7 mg/dL (8.4-10.2); Carbon Dioxide 21 mmol/L (22-29); Chloride 103 mmol/L (96-108); Estimated Glomerular Filt Rate > 60; Glucose Random 153 mg/dL (60-115); Potassium 4.4 mmol/L (3.3-5.1); Sodium 135 mmol/L (135-145)
[2020-10-20] MEDS: PHENobarbitaL 30 MG TABLET 60 MG PO ×2 (08:44→20:38)
[2020-10-20] MEDS: methylPREDNISolone Sod Succ 40 MG/ML VIAL IVPUSH ×2 (08:44→18:37)
[2020-10-20] MEDS: vancomycin HCL 1,250 MG in 0.9 % Sodium Chloride 250 ML 166.67 MG IV ×2 (08:44→20:11)
[2020-10-20] MEDS: 0.9 % Sodium Chloride Flush 3 ML SYRINGE IVFLUSH ×3 (08:46→20:40)
--- NOTE | 2020-10-20 12:57 | P.PNIM_ITS ---
Subjective Subjective Date of Service: 10/20/20 Interval History: the patient was seen and evaluated this morning Laying in bed, anxiety and tremors improved Having left shoulder pain from phenobarbital and injection Reported decrease pain in his throat added he is able to eat with no difficulty swallowing Denies any fever, chills or shortness of breath No reported other overnight events. Systemic review: No fever, chills but reports pain in his left shoulder No chest pain, palpitation No shortness of breath or coughing No abdominal pain, nausea or vomiting No urinary symptoms No any rash or wounds Physical Exam Vital Signs: Vital Signs: Last Vital Signs Temp 97.7 F 10/20/20 08:00 Pulse 97 10/20/20 08:00 Resp 19 10/20/20 08:00 BP 121/78 10/20/20 08:00 Pulse Ox 97 10/20/20 08:00 Body Mass Index 23.0 Const: Other: Constitutional : Alert, oriented, anxious, having tremors Neck : Normal inspection, Supple, no congestion on the throat but some erythema Cardiovascular : RRR, S1 S2, no lower extremity edema, tachycardia Respiratory : Good bilateral air entry, no crackles, wheezes or rhonchi Gastrointestinal: soft, lax, Normal bowel sounds, Non tender Skin : Warm/Dry, left shoulder mildly indurated with local tenderness but no drainage or bleeding noticed Neurological : Alert & oriented x3, No focal deficit Objective Data Current Medications Generic Name Dose Route Start Last Admin Trade Name Freq PRN Reason Stop Dose Admin Acetaminophen 650 mg 10/18/20 06:22 10/20/20 03:27 Acetaminophen 325 Mg Tablet PO 650 mg Q6H PRN Administration Pain, Mild (Pain Scale 1-3) Acetaminophen/Butalbital/Caffeine 1 tab 10/19/20 10:39 10/19/20 16:25 Butalb/Acetamin/Caff 50/325/40 Tablet PO 1 tab Q4H PRN Administration Headache Albuterol/Ipratropium 3 ml 10/18/20 06:22 Albuterol/Iprat 2.5/0.5mg 3 Ml Ampul.Neb INHALE RQ4H PRN Shortness of Breath/Wheezing Docusate Sodium 100 mg 10/18/20 06:22 Docusate Sodium 100 Mg Capsule PO DAILY PRN Constipation Enoxaparin Sodium 75 mg 10/19/20 14:30 10/19/20 23:55 Enoxaparin Sodium 80 Mg/0.8 Ml Syringe 1 mg/kg (75 mg) 75 mg SUBCUT Administration Q12H [facility] Ceftriaxone Sodium 1 gm/ 50 mls @ 100 mls/hr 10/19/20 05:00 10/20/20 06:07 Sodium Chloride IV Infused Q24H [facility] Infusion Vancomycin HCl 1,250 mg/ 250 mls @ 166.667 mls/hr 10/20/20 07:00 10/20/20 10:33 Sodium Chloride IV Infused Q12H [facility] Infusion Ketorolac Tromethamine 15 mg 10/18/20 11:35 10/20/20 11:10 Ketorolac Tromethamine 15 Mg/Ml Vial IVPUSH 15 mg Q6H PRN Administration Pain, Moderate (Pain Scale 4-6 Ketorolac Tromethamine 15 mg 10/20/20 10:53 Ketorolac Tromethamine 15 Mg/Ml Vial IVPUSH Q6H PRN Pain, Moderate (Pain Scale 4-6 Levalbuterol HCl 1.25 mg 10/19/20 14:15 10/20/20 07:45 Levalbuterol Hcl 1.25 Mg/0.5 Ml Vial.Neb INHALE 1.25 mg RTID CAMMY Administration Medication 1 each 10/19/20 11:15 No Benzodiazepines MISCELLANE DAILY [facility] Melatonin 9 mg 10/18/20 20:39 10/19/20 20:28 Melatonin 3 Mg Tablet PO 9 mg BEDTIME PRN Administration insomnia Methylprednisolone Sodium Succinate 40 mg 10/18/20 06:22 10/20/20 08:44 Methylprednisolone Sod Succ 40 Mg/Ml Vial IVPUSH 40 mg Q12H [facility] Administration Ondansetron HCl 4 mg 10/18/20 06:22 Ondansetron Hcl 4 Mg/2 Ml Vial IVPUSH Q8H PRN Nausea and Vomiting Pharmacy Consult 1 each 10/18/20 06:22 Consult Rx Vancomycin Dosing MISCELLANE DAILY PRN Consult order Pharmacy Consult 1 each 10/18/20 06:33 Consult Rx Perform Med Rec MISCELLANE ONCE PRN Consult order Phenobarbital 60 mg 10/20/20 09:00 10/20/20 08:44 Phenobarbital 30 Mg Tablet PO 10/21/20 21:01 60 mg BID [facility] Administration Protocol Phenobarbital 30 mg 10/22/20 09:00 Phenobarbital 30 Mg Tablet PO 10/23/20 21:01 BID [facility] Protocol Phenobarbital 30 mg 10/24/20 09:00 Phenobarbital 30 Mg Tablet PO 10/25/20 09:01 DAILY [facility] Protocol Sodium Chloride 3 ml 10/18/20 08:00 10/20/20 08:46 0.9 % Sodium Chloride Flush 3 Ml Syringe IVFLUSH 3 ml QSHIFT [facility] Administration Warfarin Sodium 10 mg 10/19/20 18:00 10/19/20 18:20 Warfarin Sodium 10 Mg Tablet PO 10 mg DAILY@1800 [facility] Administration Labs CBC & Chem 7: 10/19/20 05:42 10/20/20 05:30 Labs: Laboratory Results - last 24 hr 10/19/20 10/20/20 10/20/20 18:15 05:30 05:30 PT 12.3 INR 1.1 Sodium 135 Potassium 4.4 Chloride 103 Carbon Dioxide 21 L Anion Gap 15 BUN 19 H Creatinine 0.85 Estim Creat Clear Calc 102.0 Estimated GFR > 60 Random Glucose 153 H Calcium 8.7 Vancomycin Trough 8.9 L Microbiology Microbiology Results: Microbiology 10/18/20 05:07 Blood Culture - Preliminary Blood - Venous No growth after 48 hours. 10/18/20 04:22 Blood Culture - Preliminary Blood - Venous No growth after 48 hours. Quality Stroke Does the patient have a stroke diagnosis?: No VTE Prior VTE?: No VTE Risk Level:: Medical - moderate - high VTE Device Contraindication: Treatment Not Indicated VTE Drug Contraindication: N/A - Med Ordered Assessment and Plan (1) Sepsis: Status: Acute (2) Epiglottitis: Status: Acute (3) Hypomagnesemia: Status: Acute (4) Strep pharyngitis: Status: Acute (5) Supratherapeutic INR: Status: Acute (6) Asthma with COPD with exacerbation: Status: Acute Assessment and Plan: This is a 60-year-old male with past medical history of asthma/COPD, aortic valve replacement, TBI, presents to the hospital with complaints of sore throat, shortness of breath, cough and sputum production # Sepsis # Secondary to epiglottitis Positive strep throat screen Improving Decrease swelling he is able to tolerate diet More Discussed with ENT team at [facility] who recommended no need for transfer as the patient is improving Continue broad-spectrum antibiotics Negative cultures # left shoulder pain Induration after phenobarbital injection Cold compressors Toradol Monitor for the need of imaging # asthma/COPD exacerbation Continue Solu-Medrol 40 IV b.i.d. DuoNeb p.r.n. Xopenex nebulizer # alcohol withdrawal Daily beer drinker Continue phenobarbital protocol Advised to quit drinking at all # subtherapeutic INR Who presented with INR of 8, received vitamin K INR 1.1 today Continue warfarin 10 mg for now Bridge with full-dose Lovenox follow PT INR with goal 2-3 # hypomagnesemia repleted Follow Mag level DVT prophylaxis: Warfarin
[2020-10-20] MEDS: Enoxaparin Sodium 80 MG/0.8 ML SYRINGE 75 MG SUBCUT (14:43)
[2020-10-20] MEDS: Butalb/Acetamin/Caff 50/325/40 TABLET 1 TAB PO (16:54)
[2020-10-20] MEDS: Warfarin Sodium 10 MG TABLET PO (18:37)
[2020-10-20] MEDS: Melatonin 3 MG TABLET 9 MG PO (20:39)
[2020-10-21] MEDS: Enoxaparin Sodium 80 MG/0.8 ML SYRINGE 75 MG SUBCUT (02:33)
[2020-10-21] MEDS: oxyCODONE HCl Immed Release 5 MG TABLET PO ×2 (02:37→09:44)
[2020-10-21] MEDS: Docusate Sodium 100 MG CAPSULE PO (02:41)
[2020-10-21] MEDS: Butalb/Acetamin/Caff 50/325/40 TABLET 1 TAB PO (02:44)
[2020-10-21 03:37] VITALS: BP 148/85; PULSE 85; RESP 16; TEMP 36.4; O2SAT 99
[2020-10-21] MEDS: cefTRIAXone sodium 1 GM in 0.9 % Sodium Chloride 50 ML IV (05:08)
[2020-10-21] MEDS: methylPREDNISolone Sod Succ 40 MG/ML VIAL IVPUSH (06:24)
[2020-10-21] MEDS: vancomycin HCL 1,250 MG in 0.9 % Sodium Chloride 250 ML 166.67 MG IV (06:25)
[2020-10-21 07:20] VITALS: PULSE 71; O2SAT 93
[2020-10-21] MEDS: PHENobarbitaL 30 MG TABLET 60 MG PO (07:41)
[2020-10-21] MEDS: Ketorolac Tromethamine 15 MG/ML VIAL IVPUSH (07:42)
[2020-10-21 07:43] VITALS: BP 135/75; PULSE 92; RESP 18; TEMP 36.3; O2SAT 96
[2020-10-21] MEDS: 0.9 % Sodium Chloride Flush 3 ML SYRINGE IVFLUSH (07:45)
[2020-10-21 07:52] LABS: INTERNATIONAL NORM RATIO 1.6 (0.9-1.1); Prothrombin Time 18.8 SEC (9.9-13.0)
[2020-10-21] MEDS: predniSONE 20 MG TABLET 40 MG PO (09:44)
--- NOTE | 2020-10-21 12:18 | MHC.CM.PN ---
PT DISCHARGING TODAY HOME SELF-CARE W/ PREDNISONE TAPER, ORAL DOXYCYCLINE AND CEFUROXIME Q12 X 6DAYS AND PRN OXYCODONE, PT HAS SELF-ARRANGED TRANSPORT.
--- NOTE | 2020-10-21 12:23 | PM.DS ---
DS: Providers Provider Date of Service: 10/21/20 Date of admission: 10/18/20 06:02 Primary care physician: Nathalie Hsu MD DS: Diagnosis Discharge Diagnosis (1) Sepsis: Status: Acute (2) Epiglottitis: Status: Acute (3) Hypomagnesemia: Status: Acute (4) Strep pharyngitis: Status: Acute (5) Supratherapeutic INR: Status: Acute (6) Asthma with COPD with exacerbation: Status: Acute DS: Medications Discharge Medications Home Medications: Home Medications Medication Instructions Recorded Confirmed acetaminophen 1,000 mg PO QID PRN 04/19/20 10/18/20 albuterol sulfate [ProAir HFA] 2 puff PO Q4-6H PRN 10/18/20 10/18/20 melatonin 2 tab PO BEDTIME PRN 10/18/20 10/18/20 Previous Rx's Medication Instructions Recorded warfarin 5 mg tablet 5 mg PO DAILY #90 tab 01/16/20 dicyclomine 20 mg tablet 20 mg PO TID 30 Days #90 tab 09/26/20 simethicone 180 mg capsule 180 mg PO QID 30 Days #120 cap 09/26/20 cefuroxime axetil 500 mg PO Q12H 6 Days #12 tab 10/21/20 doxycycline hyclate 100 mg PO Q12H 6 Days #12 tab 10/21/20 oxycodone 5 mg PO Q6H PRN 12 Days tab 10/21/20 prednisone See Taper PO DAILY #18 tab 10/21/20 DS: Summary Hospital Course Hospital Course: Admission note HPI 60-year-old male with past medical history of COPD/asthma, TIA, Harrell's esophagus, history of cocaine abuse, aortic valve replacement on anticoagulation, AAA repair, complete heart block status post pacemaker, HTN, TBI, history of lower GI bleed who presents to the hospital with complaints of sore throat, cough, sputum production, and dyspnea. Patient reports that his symptoms started 2 days ago, he denies any chest pain, reports no fever no chills, no abdominal pain, some nausea which 1 episode of vomiting, had diarrhea but resolved, no urinary symptoms and no lower extremity edema. He denies any melena, no bright red blood per rectum, no hemoptysis, no hematemesis. On arrival to the ED patient vitals are significant for temp of 98.2?, heart rate of 112, respiratory rate of 28, blood pressure of 117/65, satting 97% on room air. Patient is now 93% on room air Labs are significant for WBC count of 13, hemoglobin of 11.7, P T of 100.3?, INR of 8.4. Sodium of 132, magnesium of 1.4, BNP of 144, his serology showed positive S.Pyogenes Soft tissue neck CT showed thickened appearance of the epiglottitis and the aryepiglottic folds. Suspicious for epiglottitis. Perivertebral soft tissue thickening in the lower neck. Abdominal CT, chest CT showed no acute abnormal findings Hospital course The patient was admitted to the hospital with difficulty breathing and sore throat found to have epiglottitis on CT scan of the soft tissue of the neck. Admitted for sepsis diagnosis as throat swab was positive for some drip evaluations. Treated with broad-spectrum antibiotics of vancomycin and ceftriaxone with addition methylprednisolone with good response over the course of hospital stay as his sore throat resolved and he was able to tolerate oral diet. The case was discussed with ENT team at [facility] who did not feel the patient needs transfer to [facility]. Blood cultures remain negative. He was treated as well for alcohol withdrawal with phenobarbital protocol with good response. He developed left shoulder pain and bruises from the phenobarbital shot with mildly decreased range of motion in the left shoulder improved with usage of cold compressors and pain medications. Treated for asthma with nebulizers and steroids. Ambulated free on room with no reported dyspnea. Noted to have elevated INR of 8.6 at time of presentation. Received vitamin K in the emergency with reversal of INR 2 1. Started on warfarin and bridging with Lovenox for history of aortic valve replacement. INR 1.6 this morning and was covered with Lovenox a will be discharged home to continue his home dose warfarin of 5 mg and repeat INR as outpatient. Time Spent with Patient Time attestation: Total time spent providing and/or coordinating discharge services: Discharge coordination time: Greater than 30 minutes Quality: Stroke Does the patient have a stroke diagnosis?: No Physical Exam Vital Signs: Vital Signs: Last Vital Signs Temp 97.3 F 10/21/20 07:43 Pulse 92 10/21/20 07:43 Resp 18 10/21/20 07:43 BP 135/75 10/21/20 07:43 Pulse Ox 96 10/21/20 07:43 Body Mass Index 23.0 Const: Other: Constitutional : Alert, oriented, anxious, having tremors Neck : Normal inspection, Supple, no congestion on the throat but some erythema Cardiovascular : RRR, S1 S2, no lower extremity edema, Respiratory : Good bilateral air entry, no crackles, wheezes or rhonchi Gastrointestinal: soft, lax, Normal bowel sounds, Non tender Skin : Warm/Dry, left shoulder mildly local tenderness but no drainage or bleeding noticed, ecchymosis Likely of from being on blood thinners Neurological : Alert & oriented x3, No focal deficit DS: Data Data Completed and Pending Labs on day of discharge: Laboratory Results - last 24 hr 10/21/20 07:04 PT 18.8 H D INR 1.6 H Preliminary micro results at discharge 10/18/20 05:07 Blood Culture - Preliminary Blood - Venous No growth after 48 hours. 10/18/20 04:22 Blood Culture - Preliminary Blood - Venous No growth after 48 hours. Discharge Plan Discharge Patient Disposition: Home, Self-Care Discharge Diagnosis: Epiglottitis Abnormal INR Referrals: Nathalie Hsu MD [Primary Care Provider] - 1 Week Discharge Medications: New cefuroxime axetil 500 mg Tablet 500 mg PO Q12H 6 Days Qty: 12 RF: 0 doxycycline hyclate 100 mg Tablet 100 mg PO Q12H 6 Days Qty: 12 RF: 0 oxycodone 5 mg Tablet 5 mg PO Q6H PRN (Reason: Pain, Severe (Pain Scale 7-10)) 12 Days RF: 0 prednisone 10 mg tablet See Taper mg PO DAILY Qty: 18 RF: 0 Continued acetaminophen 500 mg Capsule 1,000 mg PO QID PRN (Reason: Pain) RF: 0 albuterol sulfate [ProAir HFA] 90 mcg/actuation HFA aerosol inhaler 2 puff PO Q4-6H PRN (Reason: dyspnea) RF: 0 melatonin 5 mg tablet 2 tab PO BEDTIME PRN (Reason: insomnia) RF: 0 warfarin 5 mg tablet 5 mg PO DAILY Qty: 90 RF: 0 dicyclomine 20 mg tablet 20 mg PO TID 30 Days Qty: 90 RF: 3 simethicone 180 mg capsule 180 mg PO QID 30 Days Qty: 120 RF: 3 Discharge Orders: Discharge Order (Routine); Ordered 10/21/20 Ordered By: Areli Villela Diet: advance to usual diet Activity on Discharge: As tolerated Stand Alone Forms: Patient Portal Discharge page Care Plan Goals: Read below Health Concerns: Read below Plan of Treatment: You were admitted to the hospital for evaluation difficulty breathing. Found to significant throat infection with inflammation your epiglottis. Tested positive for Strept throat. Treated with IV antibiotics and steroids with good response over the course of hospital stay. Your treated as well for alcohol withdrawal with phenobarbital shots. You have injection site inflammation and bruising. Assessment: Continue doxycycline and Ceftin as prescribed Continue tapering dose of steroids To use oxycodone as needed for pain
== END 2020-10-21 12:38 | disposition home or self-care (01) | DRG 720 ==
LOC: HO.ED 06:09 → HO.EDOVER 06:30 → HO.S3 09:08
PROVIDERS: Admitting Provider Internal Medicine; Emergency Provider Student in an Organized Health Care Education/Training Program; PCP Family Medicine; Visit Provider Student in an Organized Health Care Education/Training Program
DX: A41.9 Sepsis, unspecified organism (principal); E83.42 Hypomagnesemia; J44.1 Chronic obstructive pulmonary disease with (acute) exacerbation; J05.10 Acute epiglottitis without obstruction; J45.901 Unspecified asthma with (acute) exacerbation; F10.139 Alcohol abuse with withdrawal, unspecified; R79.1 Abnormal coagulation profile; T80.89XA Other complications following infusion, transfusion and therapeutic injection, initial encounter; F17.210 Nicotine dependence, cigarettes, uncomplicated; J02.0 Streptococcal pharyngitis; Z20.822 Contact with and (suspected) exposure to COVID-19; Z95.0 Presence of cardiac pacemaker; Z71.6 Tobacco abuse counseling; Z79.01 Long term (current) use of anticoagulants; Z79.899 Other long term (current) drug therapy
CPT/HCPCS: 36415; 70491; 71045; 71260; 74177; 80048; 80053; 80202; 80307; 81003; 82077; 82803; 83605; 83690; 83735; 83880; 84484; 85025; 85610; 87040; 87635; 87651; 93005; 94640; 99285; J0696; J1100; J1650; J1885; J2560; J2920; J3370; J3430; J3475; Q9967

== ENCOUNTER → 2020-10-23 14:00 | Outpatient (BNVA) | payer MEDICAID, SELFPAY | PROVIDERS: PCP Family Medicine; Visit Provider Internal Medicine | DX: Z95.2 Presence of prosthetic heart valve (principal); Z51.81 Encounter for therapeutic drug level monitoring; Z79.01 Long term (current) use of anticoagulants | CPT/HCPCS: Q3014 ==

== ENCOUNTER → 2020-10-25 12:01 | Outpatient (BNVA) | payer MEDICAID, SELFPAY | PROVIDERS: PCP Family Medicine; Visit Provider Internal Medicine | DX: Z95.2 Presence of prosthetic heart valve (principal) | CPT/HCPCS: Q3014 ==

== ENCOUNTER → 2020-10-28 14:55 | Outpatient (BNVA) | payer MEDICAID, SELFPAY | PROVIDERS: PCP Family Medicine; Visit Provider Internal Medicine | DX: Z95.2 Presence of prosthetic heart valve (principal); Z51.81 Encounter for therapeutic drug level monitoring; Z79.01 Long term (current) use of anticoagulants | CPT/HCPCS: Q3014 ==

== ENCOUNTER → 2020-10-30 10:32 | Outpatient (BNVA) | payer MEDICAID, SELFPAY | PROVIDERS: PCP Family Medicine; Visit Provider Internal Medicine | DX: Z95.2 Presence of prosthetic heart valve (principal) | CPT/HCPCS: Q3014 ==

== ENCOUNTER → 2020-10-31 10:22 | Outpatient (BNVA) | payer MEDICAID, SELFPAY | PROVIDERS: PCP Family Medicine; Visit Provider Internal Medicine ==

== ENCOUNTER → 2020-11-01 14:41 | Outpatient (BNVA) | payer MEDICAID, SELFPAY | PROVIDERS: PCP Family Medicine; Visit Provider Internal Medicine | DX: Z95.2 Presence of prosthetic heart valve (principal) | CPT/HCPCS: Q3014 ==

== ENCOUNTER → 2020-11-04 15:49 | Outpatient (BNVA) | payer MEDICAID, SELFPAY | PROVIDERS: PCP Family Medicine; Visit Provider Internal Medicine | DX: Z95.2 Presence of prosthetic heart valve (principal) | CPT/HCPCS: Q3014 ==

== ENCOUNTER → 2020-11-08 14:04 | Outpatient (BNVA) | payer MEDICAID, SELFPAY | PROVIDERS: PCP Family Medicine; Visit Provider Internal Medicine | DX: Z95.2 Presence of prosthetic heart valve (principal) | CPT/HCPCS: Q3014 ==

== ENCOUNTER → 2020-11-11 15:19 | Outpatient (BNVA) | payer MEDICAID, SELFPAY | PROVIDERS: PCP Family Medicine; Visit Provider Internal Medicine | DX: Z95.2 Presence of prosthetic heart valve (principal); Z79.01 Long term (current) use of anticoagulants; Z51.81 Encounter for therapeutic drug level monitoring | CPT/HCPCS: Q3014 ==

== ENCOUNTER → 2020-11-13 13:31 | Outpatient (BNVA) | payer MEDICAID, SELFPAY | PROVIDERS: PCP Family Medicine; Visit Provider Internal Medicine | DX: Z95.2 Presence of prosthetic heart valve (principal); Z79.01 Long term (current) use of anticoagulants; Z51.81 Encounter for therapeutic drug level monitoring | CPT/HCPCS: Q3014 ==

== ENCOUNTER → 2020-11-15 15:39 | Outpatient (BNVA) | payer MEDICAID, SELFPAY | PROVIDERS: PCP Family Medicine; Visit Provider Internal Medicine | DX: Z95.2 Presence of prosthetic heart valve (principal) | CPT/HCPCS: Q3014 ==

== ENCOUNTER → 2020-11-18 14:45 | Outpatient (BNVA) | payer MEDICAID, SELFPAY | PROVIDERS: PCP Family Medicine; Visit Provider Internal Medicine | DX: Z95.2 Presence of prosthetic heart valve (principal) | CPT/HCPCS: Q3014 ==

== ENCOUNTER → 2020-11-21 14:20 | Outpatient (BNVA) | payer MEDICAID, SELFPAY | PROVIDERS: PCP Family Medicine; Visit Provider Internal Medicine | DX: Z95.2 Presence of prosthetic heart valve (principal) | CPT/HCPCS: Q3014 ==

== ENCOUNTER → 2020-11-29 12:01 | Outpatient (BNVA) | payer MEDICAID, SELFPAY | PROVIDERS: PCP Family Medicine; Visit Provider Internal Medicine | DX: Z95.2 Presence of prosthetic heart valve (principal); Z51.81 Encounter for therapeutic drug level monitoring; Z79.01 Long term (current) use of anticoagulants | CPT/HCPCS: Q3014 ==

== ENCOUNTER → 2020-12-02 14:39 | Outpatient (BNVA) | payer MEDICAID, SELFPAY | PROVIDERS: PCP Family Medicine; Visit Provider Internal Medicine ==

== ENCOUNTER → 2020-12-06 14:07 | Outpatient (BNVA) | payer MEDICAID, SELFPAY | PROVIDERS: PCP Family Medicine; Visit Provider Internal Medicine | DX: Z13.89 Encounter for screening for other disorder (principal) | CPT/HCPCS: Q3014 ==

== ENCOUNTER → 2020-12-13 10:54 | Outpatient (BNVA) | payer MEDICAID, SELFPAY | PROVIDERS: PCP Family Medicine; Visit Provider Internal Medicine ==

== ENCOUNTER → 2020-12-20 11:58 | Outpatient (BNVA) | payer MEDICAID, SELFPAY | PROVIDERS: PCP Family Medicine; Visit Provider Internal Medicine ==

== ENCOUNTER → 2020-12-27 13:11 | Outpatient (BNVA) | payer MEDICAID, SELFPAY | PROVIDERS: PCP Family Medicine; Visit Provider Internal Medicine ==

== ENCOUNTER → 2021-01-03 11:53 | Outpatient (BNVA) | payer MEDICAID, SELFPAY | PROVIDERS: PCP Family Medicine; Visit Provider Internal Medicine | DX: Z95.2 Presence of prosthetic heart valve (principal) | CPT/HCPCS: Q3014 ==

== ENCOUNTER → 2021-01-10 14:13 | Outpatient (BNVA) | payer MEDICAID, SELFPAY | PROVIDERS: PCP Family Medicine; Visit Provider Internal Medicine | DX: Z95.2 Presence of prosthetic heart valve (principal); Z51.81 Encounter for therapeutic drug level monitoring; Z79.01 Long term (current) use of anticoagulants | CPT/HCPCS: Q3014 ==

== ENCOUNTER → 2021-01-17 12:08 | Outpatient (BNVA) | payer MEDICAID, SELFPAY | PROVIDERS: PCP Family Medicine; Visit Provider Internal Medicine ==

== ENCOUNTER → 2021-01-24 12:00 | Outpatient (BNVA) | payer MEDICAID, SELFPAY | PROVIDERS: PCP Family Medicine; Visit Provider Internal Medicine ==

== ENCOUNTER → 2021-01-31 15:21 | Outpatient (BNVA) | payer MEDICAID, SELFPAY | PROVIDERS: PCP Family Medicine; Visit Provider Internal Medicine | DX: Z95.2 Presence of prosthetic heart valve (principal) | CPT/HCPCS: Q3014 ==

== ENCOUNTER → 2021-02-07 15:20 | Outpatient (BNVA) | payer MEDICAID, SELFPAY | PROVIDERS: PCP Family Medicine; Visit Provider Internal Medicine | DX: Z95.2 Presence of prosthetic heart valve (principal) | CPT/HCPCS: Q3014 ==

== ENCOUNTER → 2021-02-14 11:47 | Outpatient (BNVA) | payer MEDICAID, SELFPAY | PROVIDERS: PCP Family Medicine; Visit Provider Internal Medicine ==

== ENCOUNTER → 2021-02-21 12:31 | Outpatient (BNVA) | payer MEDICAID, SELFPAY | PROVIDERS: PCP Family Medicine; Visit Provider Internal Medicine | DX: Z95.2 Presence of prosthetic heart valve (principal); Z51.81 Encounter for therapeutic drug level monitoring; Z79.01 Long term (current) use of anticoagulants | CPT/HCPCS: Q3014 ==

== ENCOUNTER → 2021-03-03 15:06 | Outpatient (BNVA) | payer MEDICAID, SELFPAY | PROVIDERS: PCP Family Medicine; Visit Provider Internal Medicine ==

== ENCOUNTER → 2021-03-14 13:52 | Outpatient (BNVA) | payer MEDICAID, SELFPAY | PROVIDERS: PCP Family Medicine; Visit Provider Internal Medicine | DX: Z95.2 Presence of prosthetic heart valve (principal) | CPT/HCPCS: Q3014 ==

== ENCOUNTER → 2021-03-19 14:57 | Outpatient (BNVA) | payer MEDICAID, SELFPAY | PROVIDERS: PCP Family Medicine; Visit Provider Internal Medicine | DX: Z79.01 Long term (current) use of anticoagulants (principal) | CPT/HCPCS: Q3014 ==

== ENCOUNTER → 2021-03-27 13:15 | Outpatient (BNVA) | payer MEDICAID, SELFPAY | PROVIDERS: PCP Family Medicine; Visit Provider Internal Medicine | DX: Z95.2 Presence of prosthetic heart valve (principal) | CPT/HCPCS: Q3014 ==

== ENCOUNTER → 2021-04-03 12:14 | Outpatient (BNVA) | payer MEDICAID, SELFPAY | PROVIDERS: PCP Family Medicine; Visit Provider Internal Medicine | DX: Z95.2 Presence of prosthetic heart valve (principal); Z51.81 Encounter for therapeutic drug level monitoring; Z79.01 Long term (current) use of anticoagulants | CPT/HCPCS: Q3014 ==

== ENCOUNTER → 2021-04-07 11:51 | Outpatient (BNVA) | payer MEDICAID, SELFPAY | PROVIDERS: PCP Family Medicine; Visit Provider Internal Medicine ==

== ENCOUNTER → 2021-04-18 14:32 | Outpatient (BNVA) | payer MEDICAID, SELFPAY | PROVIDERS: PCP Family Medicine; Visit Provider Internal Medicine ==

== ENCOUNTER → 2021-04-22 15:04 | Outpatient (BNVA) | payer MEDICAID, SELFPAY | PROVIDERS: PCP Family Medicine; Visit Provider Nurse Practitioner Family | DX: M54.16 Radiculopathy, lumbar region (principal) | CPT/HCPCS: 99202 ==

== ENCOUNTER → 2021-04-25 14:25 | Outpatient (BNVA) | payer MEDICAID, SELFPAY | PROVIDERS: PCP Family Medicine; Visit Provider Internal Medicine ==

== ENCOUNTER 2021-05-01 13:12 | Outpatient (REF) | payer MEDICAID, SELFPAY ==
--- NOTE | ~2021-05-01 | CT_ITS ---
EXAMINATION: CT LUMBAR SPINE WITHOUT CONTRAST CLINICAL INFORMATION: 61-year-old with lumbar radiculopathy. COMPARISON: None TECHNIQUE: Volumetric CT imaging of the lumbar spine was done with multiplanar reformatted reconstructions. This CT examination was performed using dose optimization techniques as appropriate, variously including the following: *Automated exposure control. *Adjustment of mA and/or kV according to patient size (this includes techniques or standardized protocols for targeted exams where dose is matched to indication/reason for exam; i.e. extremities or head). *Use of iterative reconstruction technique. DLP; 483 mGy-cm FINDINGS: Alignment: Mild mid lumbar dextroscoliosis. The lumbosacral spine is anatomically aligned in the sagittal plane. Lumbosacral Junction: Normal. 5 hxg-jsz-bbhgaht lumbar vertebra. Vertebral Bodies: Mild chronic anterior wedge compression fracture deformity of L2 and slight chronic anterior wedging of L1. Vertebral body heights are otherwise well maintained. Disc Spaces and Endplates: Moderate disc space height loss at L5-S1 with intradiscal vacuum disc phenomenon and degenerative endplate sclerosis, with anterior and paravertebral spondylosis. Jllw-qs-vkbxufdk disc space height loss asymmetric to the right at L4-L5 with anterior and paravertebral spondylosis and mild disc space height loss at L3-L4 with paravertebral and anterior spondylosis. Prominent Schmorl's node along the inferior endplate of T12 with intradiscal vacuum disc phenomenon at T12-L1. Central Schmorl's nodes at L1-L2. SPINAL LEVELS: L5-S1: Diffuse disc bulging is noted with posterolateral disc osteophyte complex on the right. Moderate bilateral facet arthropathy noted with prominent concentric epidural fat at this level and a somewhat constricted appearance to the dural sac consistent with epidural lipomatosis. There is crowding of the subarticular zones bilaterally with encroachment on the traversing S1 nerve roots bilaterally and there is moderate left-sided and severe right-sided neural foraminal stenosis with impingement on the exiting L5 nerve roots, right more than left. Possible conjoined nerve root sleeve on the left at the level of the left L4 lateral recess. L4-L5: Concentric disc bulging is noted with prominent epidural fat, ligamentum flavum thickening and mild bilateral facet arthropathy. There is moderate central spinal canal stenosis and there is crowding of the subarticular zones bilaterally. There is mild right-sided and minimal left-sided neural foraminal stenosis. L3-L4: Disc bulging is noted with a superimposed left wdtoizmrjwpn-zd-ckhppgysh disc herniation with flattening of the dural sac asymmetric to the left. There is ligamentum flavum thickening and there is kfgo-ob-hdgzwpiy facet arthropathy, left more than right, with narrowing of the left subarticular zone and a slightly prominent dorsal epidural fat pad. There is ajvl-bc-xcquubqg central spinal canal stenosis and there is moderate left-sided neural foraminal stenosis, with disc herniation noted slightly encroaching on the exiting left L3 nerve root. L2-L3: Diffuse disc bulging is noted with mild flattening of the ventral dural sac with mild ligamentum flavum thickening. There is moderate right and mild left-sided facet arthropathy. There is some crowding of the left subarticular zone as well and there is mild left-sided neural foraminal stenosis without neural impingement. L1-L2: No disc bulge or herniation. No significant facet arthrosis, canal or neural foraminal stenosis. T12-L1: No disc bulge or herniation. Moderate right-sided facet arthropathy noted with mild right-sided neural foraminal stenosis. Paraspinal/Retroperitoneal: The paravertebral soft tissues are grossly unremarkable. There are atheromatous vascular calcifications of the abdominal aorta and iliac vessels. CT/CT lumbar spine wo con IMPRESSION: 1. Mild lumbar dextroscoliosis with otherwise normal spinal alignment. Juzr-zo-wprxsmsx anterior wedge compression deformities of L2 and L1. 2. Multilevel discogenic degenerative changes, with multilevel disc bulging, spondylosis and facet arthropathy with lower lumbar epidural lipomatosis with a relatively constricted appearance to the dural sac in the lower lumbar canal. Left subarticular to foraminal disc herniation at L3-L4. 3. Moderate central spinal canal stenosis at L4-L5, yici-fd-eximsyof central spinal canal stenosis at L3-L4 and multilevel crowding of the subarticular zones as detailed above. 4. Multilevel bilateral neural foraminal stenosis, most extensive on the right at L5-S1 with right L5 nerve root impingement and, to a lesser degree, on the left at L5-S1 with probable left L5 nerve root impingement. Neural foraminal stenosis also noted on the left at L3-L4 with disc herniation encroaching on the exiting left L3 nerve root.
== END 2021-05-01 13:13 | disposition home or self-care (01) ==
LOC: HO.CT 13:12
PROVIDERS: Visit Provider Nurse Practitioner Family
DX: M54.16 Radiculopathy, lumbar region (principal)
CPT/HCPCS: 72131

== ENCOUNTER → 2021-05-02 13:40 | Outpatient (BNVA) | payer MEDICAID, SELFPAY | PROVIDERS: PCP Family Medicine; Visit Provider Internal Medicine ==

== ENCOUNTER → 2021-05-09 10:08 | Outpatient (BNVA) | payer MEDICAID, SELFPAY | PROVIDERS: PCP Family Medicine; Visit Provider Internal Medicine | DX: Z95.2 Presence of prosthetic heart valve (principal); Z51.81 Encounter for therapeutic drug level monitoring; Z79.01 Long term (current) use of anticoagulants | CPT/HCPCS: Q3014 ==

== ENCOUNTER → 2021-05-14 12:34 | Outpatient (BNVA) | payer MEDICAID, SELFPAY | PROVIDERS: PCP Family Medicine; Visit Provider Internal Medicine | DX: Z95.2 Presence of prosthetic heart valve (principal); Z51.81 Encounter for therapeutic drug level monitoring; Z79.01 Long term (current) use of anticoagulants | CPT/HCPCS: Q3014 ==

== ENCOUNTER → 2021-05-16 14:53 | Outpatient (BNVA) | payer MEDICAID, SELFPAY | PROVIDERS: PCP Family Medicine; Visit Provider Internal Medicine | DX: Z95.2 Presence of prosthetic heart valve (principal); Z51.81 Encounter for therapeutic drug level monitoring; Z79.01 Long term (current) use of anticoagulants | CPT/HCPCS: Q3014 ==

== ENCOUNTER → 2021-05-19 17:09 | Outpatient (BNVA) | payer MEDICAID, SELFPAY | PROVIDERS: PCP Family Medicine; Visit Provider Internal Medicine | DX: Z95.2 Presence of prosthetic heart valve (principal); Z51.81 Encounter for therapeutic drug level monitoring; Z79.01 Long term (current) use of anticoagulants | CPT/HCPCS: 99211 ==

== ENCOUNTER → 2021-05-23 16:27 | Outpatient (BNVA) | payer MEDICAID, SELFPAY | PROVIDERS: PCP Family Medicine; Visit Provider Internal Medicine ==

== ENCOUNTER → 2021-06-05 10:40 | Outpatient (BNVA) | payer MEDICAID, SELFPAY | PROVIDERS: PCP Family Medicine; Visit Provider Internal Medicine | DX: Z95.2 Presence of prosthetic heart valve (principal); Z51.81 Encounter for therapeutic drug level monitoring; Z79.01 Long term (current) use of anticoagulants | CPT/HCPCS: Q3014 ==

== ENCOUNTER → 2021-06-11 14:37 | Outpatient (BNVA) | payer MEDICAID, SELFPAY | PROVIDERS: PCP Family Medicine; Visit Provider Internal Medicine | DX: Z95.2 Presence of prosthetic heart valve (principal); Z51.81 Encounter for therapeutic drug level monitoring; Z79.01 Long term (current) use of anticoagulants | CPT/HCPCS: Q3014 ==

== ENCOUNTER 2021-07-17 11:32 | Outpatient (REF) | payer MEDICAID, SELFPAY ==
[2021-07-17 12:01] LABS: INTERNATIONAL NORM RATIO 1.7 (0.9-1.1); Prothrombin Time 19.2 SEC (9.9-13.0)
== END 2021-07-17 11:33 | disposition home or self-care (01) ==
LOC: HO.LAB 11:32
PROVIDERS: Visit Provider Family Medicine
DX: Z79.01 Long term (current) use of anticoagulants (principal)
CPT/HCPCS: 36415; 85610

== ENCOUNTER 2021-10-10 01:43 | Inpatient (IN) | payer MEDICAID, SELFPAY ==
[2021-10-10] VITALS (8 sets, daily range): BP systolic 119–140; BP diastolic 68–79; PULSE 82–95; RESP 16–20; TEMP 36.8–36.9; O2SAT 95–99
--- NOTE | ~2021-10-10 | CT_ITS ---
EXAMINATION: CT HEAD WITHOUT CONTRAST CLINICAL INFORMATION: Fall. Pain. COMPARISON: 04/08/2018 TECHNIQUE: Contiguous axial imaging was performed from the skull base to vertex without intravenous contrast. This CT examination was performed using dose optimization techniques as appropriate, variously including the following: * Automated exposure control * Adjustment of mA and/or kV according to patient size (this includes techniques or standardized protocols for targeted exams where dose is matched to indication/reason for exam; i.e. extremities or head) Use of iterative reconstruction technique DLP: 1551 mGy-cm. In conjunction with the chest, abdomen, pelvis CT FINDINGS: There is no evidence of acute intracranial hemorrhage or territorial infarction. No abnormal mass effect or midline shift is seen. [place] to white matter differentiation is well preserved. No extra-axial fluid collections are identified. No hydrocephalus. Proportional prominence of the ventricles and sulcal spaces is consistent with mild volume loss. There is no abnormal attenuation within the brain parenchyma. Prior left craniotomy. No acute soft tissue or osseous abnormality. Moderate opacification of the left maxillary sinus.. The mastoid air cells and visualized portions of the paranasal sinuses are otherwise well aerated. CT/CT head/brain wo con IMPRESSION: No acute intracranial pathology.
--- NOTE | ~2021-10-10 | CT_ITS ---
EXAMINATION: CT LUMBAR SPINE WITHOUT CONTRAST CLINICAL INFORMATION: Status post fall. Back pain. Supratherapeutic INR. COMPARISON: CT of the lumbar spine done on 05/01/2021. TECHNIQUE: Spiral axial CT of the lumbosacral spine was performed without contrast. Subsequently, reconstructed images were obtained in sagittal and axial plane including axial reconstructions in 1.5 mm slice thickness. This CT examination was performed using dose optimization techniques as appropriate, variously including the following: *Automated exposure control *Adjustment of mA and/or kV according to patient size (this includes techniques or standardized protocols for targeted exams where dose is matched to indication/reason for exam; i.e. extremities or head) *Use of iterative reconstruction technique DLP; 520 mGy-cm FINDINGS: Persistent stable mild to moderate, mid to anterior compression fracture of T12 and L2 vertebral bodies appear unchanged since most recent prior study dated 05/01/2021. No evidence of any new compression fracture since the prior study. The alignment is intact. Significant facet joint arthritic changes are noted throughout the entire lumbar spine, unchanged. Spinal levels: T12-L1: Unremarkable. L1-L2: Unremarkable. L2-L3: Mild diffuse disc bulge is present, unchanged. L3-L4: Moderate diffuse disc bulge and facet joint hypertrophic changes are producing mild central spinal canal and moderate left neural foraminal narrowing, similar to prior study. L4-L5: Moderate diffuse disc bulge, facet joint hypertrophic changes are producing mild central spinal canal, moderate right neural foraminal and mild left neural foraminal narrowing, unchanged. L5-S1: Moderate diffuse disc bulge and moderate facet joint hypertrophic changes are producing mild central spinal canal and moderate bilateral foraminal narrowing, unchanged. Diffuse atherosclerotic disease of the aorta and is branches. There is no evidence of any paraspinal soft tissue hematoma identified. Solitary radiopaque density is identified within the mid posterior left kidney, measures approximately 0.3 cm at its maximum dimension, most consistent with nonobstructing calculus (23:6). CT/CT lumbar spine wo con IMPRESSION: No significant change since most recent prior CT of the lumbar spine dated 05/01/2021. Specifically, previously documented mild to moderate mid to anterior compression fracture of T12 and L2 vertebral bodies remain stable and no evidence of any new spine fracture or paraspinal soft tissue hematoma identified. Incidental note is made of a 0.3 cm nonobstructing radiopaque left renal calculus.
--- NOTE | ~2021-10-10 | CT_ITS ---
EXAMINATION: CT CHEST WITHOUT CONTRAST CT ABDOMEN AND PELVIS WITHOUT CONTRAST CLINICAL INFORMATION: Fall. Left chest wall tenderness. Lower back pain radiating into the abdomen. COMPARISON: 10/18/2020 TECHNIQUE: Multidetector volumetric imaging was performed through the chest, abdomen and pelvis without contrast. Sagittal and coronal reformatted images were obtained on the technologist's workstation. Axial MIP volume rendering provided. This CT examination was performed using dose optimization techniques as appropriate, variously including the following: *Automated exposure control *Adjustment of mA and/or kV according to patient size (this includes techniques or standardized protocols for targeted exams where dose is matched to indication/reason for exam; i.e. extremities or head) *Use of iterative reconstruction technique DLP: 1551 mGy-cm In conjunction with the head CT. FINDINGS: CHEST: Lungs: The central airways are patent. There is focal right upper lobe groundglass opacity in the perihilar region. No dense consolidation. No pleural effusion or pneumothorax. There is a right middle lobe 0.5 cm nodule on series 20 image 262. This is not clearly seen on prior. Right lower lobe 0.3 cm nodule on image 300. This is also not seen on prior. Mediastinum: The heart is of normal size. Coronary artery calcifications are present. Status post median sternotomy consistent with prior CABG. Right chest wall pacer with leads at the right atrium and right ventricle. Aortic valvular hardware. There is no pericardial effusion. Central vascular structures are unremarkable. No hilar or mediastinal lymphadenopathy. Chest Wall/Axilla: No lymphadenopathy. No chest wall mass. ABDOMEN/PELVIS: Liver, Gallbladder, Biliary Tree: The liver is normal in size, shape, and attenuation. No focal hepatic lesion or biliary ductal dilatation is present. The gallbladder is unremarkable with no evidence of radiopaque gallstones, gallbladder wall thickening, or pericholecystic inflammatory changes. Pancreas: Unremarkable. Spleen: Calcifications in the peripheral spleen are unchanged. Size spleen. Adrenal Glands: Unremarkable. Kidneys and Ureters: The kidneys are normal in size, shape, and attenuation. No hydronephrosis or hydroureter. 0.3 cm left midpole renal calculus is 7.5 cm from the posterior axillary line. Bladder: Unremarkable. Gastrointestinal Tract: The stomach and small bowel appear unremarkable. No dilated loops of bowel or evidence of obstruction. No diverticulosis. No colonic wall thickening or adjacent inflammatory changes. No free air or free fluid. The appendix is not seen. There is no pericecal inflammation to suggest acute appendicitis. Abdominal Wall: No hernia is demonstrated. Lymphovascular Structures: Lymph nodes: Normal. Vascular: Normal caliber aorta with moderate atherosclerotic calcification. Pelvic Viscera: The prostate and seminal vesicles are unremarkable. OSSEOUS STRUCTURES: No suspicious sclerotic or lytic bone lesions are identified. Degenerative changes throughout the spine. No acute fracture or malalignment of the thoracolumbar spine. Median sternotomy wires. The sternum is intact. No scapular fracture. No rib fracture identified. Intact pelvis. CT/CT abdomen pelvis wo con IMPRESSION: No acute traumatic findings of the chest, abdomen, or pelvis. No fractures are identified. There is a new groundglass opacity in the right upper lobe. This may be infectious or inflammatory. Additionally, multiple pulmonary nodules are identified, which are not clearly visualized on previous imaging. The largest measures 0.5 cm. According to the UPDATED 2017 Fleischner Society recommendations, the advised follow-up imaging for solid nodules < 6 mm is: LOW RISK PATIENT: No routine follow-up. HIGH RISK PATIENT: Optional CT at 12 months. Nonobstructing left renal calculus.
[2021-10-10 02:23] LABS: MANUAL DIFF FLAG NO
[2021-10-10 02:25] LABS: Basophils Percent Auto 0.4 % (0-2); Eosinophils Absolute Auto 0.4 X10*3/uL (0.0-0.4); Eosinophils Percent Auto 4.7 % (0-4); Hematocrit 35.3 % (42.0-52.0); Imm Gran Abs Auto 0.02 X10*3/uL (0.00-0.03); Imm Gran Pct Auto 0.3 % (0.0-0.4); Lymphocytes Absolute Auto 1.7 X10*3/uL (1.2-4.9); Lymphocytes Percent Auto 22.6 % (20-40); Mean Corpuscular Hemoglobin 29.3 pg (27.0-33.0); Mean Corpuscular Volume 86.1 fL (80.0-98.0); Mean Platelet Volume 9.4 fL (9.4-12.4); Monocytes Absolute Auto 0.8 X10*3/uL (0.1-1.2); Monocytes Percent Auto 9.8 % (2-11); Neutrophils Absolute Auto 4.7 x10*3/uL (2.0-8.3); Neutrophils Percent Auto 62.2 % (45-73); Platelet Count 259 X10*3/uL (160-400); Red Cell Distribution Width 17.2 % (11.0-16.0); White Blood Count 7.6 X10*3/uL (4.8-10.8)
[2021-10-10 02:39] LABS: Prothrombin Time 148.6 SEC (10.0-13.1)
[2021-10-10 02:45] LABS: Alanine Aminotransferase 58 U/L (0-40); Albumin Level 3.9 g/dL (3.5-5.0); Alkaline Phosphatase 125 U/L (39-117); Anion Gap 15 (12-20); Aspartate Amino Transferase 49 U/L (5-37); Bilirubin Total 0.4 mg/dL (0.0-1.0); Blood Urea Nitrogen 24 mg/dL (9-16); Calcium 8.8 mg/dL (8.4-10.2); Carbon Dioxide 25 mmol/L (22-29); Chloride 101 mmol/L (96-108); Estimated Glomerular Filt Rate 38; Glucose Random 104 mg/dL (60-115); Potassium 4.8 mmol/L (3.3-5.1); Sodium 136 mmol/L (135-145); Total Protein 7.2 g/dL (6.5-8.0)
[2021-10-10 02:48] LABS: INTERNATIONAL NORM RATIO 11.7 (0.9-1.1); Partial Thromboplastin Time 74.1 SEC (24.1-38.0)
[2021-10-10 03:08] LABS: Lipase 25 U/L (8-78)
[2021-10-10 03:19] LABS: Appearance Urine HAZY; Color Urine DK YELLOW; Glucose Urine UA NEG (NEG); Leukocyte Esterase Urine NEG (NEG); Nitrite Urine NEG (NEG); Specific Gravity - Urine >= 1.030 (1.005-1.025); UACC Culture Trigger NO; Urine Blood TRACE (NEG); Urine Ketones 5 MG/DL (NEG); Urine Protein 2+ MG/DL (NEG-TRACE)
[2021-10-10 03:23] LABS: Bacteria Urine TRACE /LPF; Mucus Urine 1+ /LPF; RBC Urine 0-2 /HPF (0); Squamous Epithelial Cell Urine 1+ /LPF; WBC Urine 0-2 /HPF (0-4)
--- NOTE | 2021-10-10 03:33 | ED_ITS ---
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 Patient also reports some chest wall discomfort and says that he was called and told that his lab values needed evaluation in the emergency room. Patient states that he has been drinking alcohol over the holidays but states that his last drink was on October 06 and he denies any seizures when abstaining from alcohol. Related Data Home Medications Medication Instructions Recorded Confirmed acetaminophen 500 mg capsule 1,000 mg PO QID PRN Pain 04/19/20 03/27/21 albuterol sulfate 90 mcg/actuation 2 puff PO Q4-6H PRN dyspnea 10/18/20 03/27/21 aerosol inhaler (ProAir HFA) melatonin 5 mg tablet 2 tab PO BEDTIME PRN insomnia 10/18/20 03/27/21 acetaminophen 500 mg tablet 500 mg PO BID PRN pain 11/18/20 01/31/21 amlodipine 2.5 mg tablet 2.5 mg PO QAM 11/18/20 03/27/21 atorvastatin 20 mg tablet 20 mg PO QAM 11/18/20 03/27/21 blood pressure test kit-large #1 ea 11/18/20 01/31/21 folic acid 1 mg tablet 1 mg PO QAM 11/18/20 03/27/21 hydrocortisone 2.5 % topical cream WI BID PRN 11/18/20 03/27/21 with perineal applicator (Proctosol HC) lidocaine 5 % topical patch 0 patch topical 11/18/20 03/27/21 lisinopril 10 mg tablet 10 mg PO QAM 11/18/20 03/27/21 magnesium oxide 400 mg (241.3 mg 800 mg PO 11/18/20 03/27/21 magnesium) tablet metoprolol succinate 50 mg 50 mg PO QAM 11/18/20 03/27/21 tablet,extended release 24 hr pantoprazole 40 mg tablet,delayed 40 mg PO 11/18/20 03/27/21 release thiamine HCl (vitamin B1) 100 mg 100 mg PO QAM 11/18/20 03/27/21 tablet trazodone 50 mg tablet 50 mg PO BEDTIME PRN 11/21/20 03/27/21 olanzapine 2.5 mg tablet 2.5 mg PO DAILY 12/02/20 03/27/21 zolpidem 10 mg tablet 10 mg PO BEDTIME PRN 12/02/20 03/27/21 buspirone 10 mg tablet 10 mg PO TID 01/31/21 03/27/21 Previous Rx's Medication Instructions Recorded warfarin 5 mg tablet 5 mg PO DAILY #90 tabs 01/16/20 cefuroxime axetil 500 mg tablet 500 mg PO Q12H 6 days #12 tabs 10/21/20 doxycycline hyclate 100 mg tablet 100 mg PO Q12H 6 days #12 tabs 10/21/20 oxycodone 5 mg tablet 5 mg PO Q6H PRN Pain, Severe (Pain 10/21/20 Scale 7-10) 12 days prednisone 10 mg tablet See Taper PO DAILY #18 tabs 10/21/20 dicyclomine 20 mg tablet 20 mg PO TID #90 tabs 02/20/21 simethicone 180 mg capsule 180 mg PO QID #120 caps 02/20/21 Allergies Allergy/AdvReac Type Severity Reaction Status Date / Time lorazepam [From ATIVAN] AdvReac Severe OPPOSITE Verified 07/17/21 11:28 EFFECT PSYCOTIC EFECTS Review of Systems Review of Systems: Pertinent positives and negatives as stated in HPI 10 point review of systems is otherwise negative. [facility] Past Medical History Source: nursing notes reviewed Medical History Alcohol abuse Alcoholic liver disease Cocaine abuse Hypertension Pacemaker Short-segment Harrell's esophagus Skull fracture Surgical History Aortic valve replaced History of esophagogastroduodenoscopy (EGD) Social History Social History Household Members: None Housing: Apartment Do you presently have visiting nurse or other home services: Yes Alcohol intake: current Alcohol intake frequency: a few times a week Alcohol type: beer Patient Tobacco Use Status: Current everyday Tobacco user Tobacco use type: Cigarette Cigarette Packs Per Day: 0.5 Second Hand Smoke Exposure: No Substance Use Type: Crack/Cocaine Advance Directives: Yes Advance Directives on File: Yes Advance Directives Date on File: 10/18/20 service: No Current occupational status: disabled Physical Exam ED Vital Signs: Vital Signs - 24 hr 10/10/21 03:44 10/10/21 04:08 Pulse Rate 82 Respiratory Rate 16 20 Blood Pressure 126/68 Pulse Oximetry 97 Oxygen Delivery Method Room Air VITAL SIGNS: Reviewed. GENERAL: Well developed, well nourished, in no acute distress. HEAD: Normocephalic/atraumatic EYES: PERRLA, EOMI EARS: Ext canals without abnormality OROPHARYNX: no oral lesions noted, posterior pharynx clear, no bleeding gums noted NECK: Supple, no adenopathy LUNGS: Normal breath sounds. No adventitious sounds or accessory muscle use. SpO2<> CARDIOVASCULAR: Regular rate and rhythm without noted murmurs, no JVD or lower extremity edema. ABDOMEN: Soft, non-tender, non-distended with bowel sounds. BACK: No midline vertebral tenderness or deformity use/step-offs noted MUSCULOSKELETAL: No tenderness, deformities, or effusions noted on gross inspection. EXTREMITIES: No cyanosis, clubbing or edema. SKIN: Inspection of the skin reveals no rashes, but bruising noted, small in nature, to extremities NEUROLOGIC: Alert and oriented x 4. Strength and sensation to light touch were grossly intact x 4. Course Course Course Narrative: 61-year-old male with history and clinical presentation consistent with supratherapeutic INR recent history of alcohol use and complaining of back pain and having reported a fall in the bathroom on Wednesday. Review of all investigations demonstrates a supratherapeutic INR level. I discussed this case with the inpatient hospitalist who accepts admission for observation. Medical Decision Making Lab Data Result diagrams: 10/10/21 02:17 10/10/21 02:17 Labs: Lab Results 10/10/21 10/10/21 10/10/21 Range/Units 02:17 02:17 02:17 WBC 7.6 (4.8-10.8) X10*3/uL RBC 4.10 L (4.60-5.80) X10*6/uL Hgb 12.0 L (14.0-18.0) g/dl Hct 35.3 L (42.0-52.0) % MCV 86.1 (80.0-98.0) fL MCH 29.3 (27.0-33.0) pg MCHC 34.0 (31.0-36.0) g/dl RDW 17.2 H (11.0-16.0) % Plt Count 259 (160-400) X10*3/uL MPV 9.4 (9.4-12.4) fL Immature Gran % (Auto) 0.3 (0.0-0.4) % Neut % (Auto) 62.2 (45-73) % Lymph % (Auto) 22.6 (20-40) % [place] % (Auto) 9.8 (2-11) % Eos % (Auto) 4.7 H (0-4) % Baso % (Auto) 0.4 (0-2) % Lymph # (Auto) 1.7 (1.2-4.9) X10*3/uL [place] # (Auto) 0.8 (0.1-1.2) X10*3/uL Eos # (Auto) 0.4 (0.0-0.4) X10*3/uL Baso # (Auto) 0.0 (0.0-0.2) X10*3/uL Abs Immat Gran (auto) 0.02 (0.00-0.03) X10*3/uL Absolute Neuts (auto) 4.7 (2.0-8.3) x10*3/uL Absolute Nucleated RBC 0.000 (0.0-0.012) X10*3/uL Nucleated RBC % (auto) 0.0 (0.0-0.2) /100WBC PT 148.6 H (10.0-13.1) SEC INR 11.7 H* D (0.9-1.1) APTT 74.1 H* (24.1-38.0) SEC Sodium 136 (135-145) mmol/L Potassium 4.8 (3.3-5.1) mmol/L Chloride 101 (96-108) mmol/L Carbon Dioxide 25 (22-29) mmol/L Anion Gap 15 (12-20) BUN 24 H (9-16) mg/dL Creatinine 1.82 H (0.5-1.4) mg/dL Estim Creat Clear Calc TNP Estimated GFR 38 Random Glucose 104 (60-115) mg/dL Calcium 8.8 (8.4-10.2) mg/dL Total Bilirubin 0.4 (0.0-1.0) mg/dL AST 49 H D (5-37) U/L ALT 58 H (0-40) U/L Alkaline Phosphatase 125 H (39-117) U/L Total Protein 7.2 (6.5-8.0) g/dL Albumin 3.9 (3.5-5.0) g/dL Lipase 25 (8-78) U/L Urine Color Urine Appearance Urine pH (5.0-8.0) Ur Specific [place] (1.005-1.025) Urine Protein (NEG-TRACE) MG/DL Urine Glucose (UA) (NEG) MG/DL Urine Ketones (NEG) MG/DL Urine Blood (NEG) Urine Nitrite (NEG) Ur Leukocyte Esterase (NEG) Urine RBC (0) /HPF Urine WBC (0-4) /HPF Ur Squamous Epith Cells /LPF Urine Bacteria /LPF Hyaline Casts /LPF Urine Mucus /LPF /11/24 Range/Units 03:01 WBC (4.8-10.8) X10*3/uL RBC (4.60-5.80) X10*6/uL Hgb (14.0-18.0) g/dl Hct (42.0-52.0) % MCV (80.0-98.0) fL MCH (27.0-33.0) pg MCHC (31.0-36.0) g/dl RDW (11.0-16.0) % Plt Count (160-400) X10*3/uL MPV (9.4-12.4) fL Immature Gran % (Auto) (0.0-0.4) % Neut % (Auto) (45-73) % Lymph % (Auto) (20-40) % [place] % (Auto) (2-11) % Eos % (Auto) (0-4) % Baso % (Auto) (0-2) % Lymph # (Auto) (1.2-4.9) X10*3/uL [place] # (Auto) (0.1-1.2) X10*3/uL Eos # (Auto) (0.0-0.4) X10*3/uL Baso # (Auto) (0.0-0.2) X10*3/uL Abs Immat Gran (auto) (0.00-0.03) X10*3/uL Absolute Neuts (auto) (2.0-8.3) x10*3/uL Absolute Nucleated RBC (0.0-0.012) X10*3/uL Nucleated RBC % (auto) (0.0-0.2) /100WBC PT (10.0-13.1) SEC INR (0.9-1.1) APTT (24.1-38.0) SEC Sodium (135-145) mmol/L Potassium (3.3-5.1) mmol/L Chloride (96-108) mmol/L Carbon Dioxide (22-29) mmol/L Anion Gap (12-20) BUN (9-16) mg/dL Creatinine (0.5-1.4) mg/dL Estim Creat Clear Calc Estimated GFR Random Glucose (60-115) mg/dL Calcium (8.4-10.2) mg/dL Total Bilirubin (0.0-1.0) mg/dL AST (5-37) U/L ALT (0-40) U/L Alkaline Phosphatase (39-117) U/L Total Protein (6.5-8.0) g/dL Albumin (3.5-5.0) g/dL Lipase (8-78) U/L Urine Color DK YELLOW Urine Appearance HAZY Urine pH 6.0 (5.0-8.0) Ur Specific [place] >= 1.030 H (1.005-1.025) Urine Protein 2+ H (NEG-TRACE) MG/DL Urine Glucose (UA) NEG (NEG) MG/DL Urine Ketones 5 (NEG) MG/DL Urine Blood TRACE (NEG) Urine Nitrite NEG (NEG) Ur Leukocyte Esterase NEG (NEG) Urine RBC 0-2 (0) /HPF Urine WBC 0-2 (0-4) /HPF Ur Squamous Epith Cells 1+ /LPF Urine Bacteria TRACE /LPF Hyaline Casts 1-4 /LPF Urine Mucus 1+ /LPF Discharge Plan Discharge Clinical Impression: Current use of anticoagulant therapy, Supratherapeutic INR Patient Disposition: Admitted As Inpatient Prescriptions: No Action acetaminophen 500 mg Capsule 1,000 mg PO QID PRN (Reason: Pain) dicyclomine 20 mg tablet 20 mg PO TID Qty: 90 3RF simethicone 180 mg capsule 180 mg PO QID Qty: 120 3RF albuterol sulfate [ProAir HFA] 90 mcg/actuation HFA aerosol inhaler 2 puff PO Q4-6H PRN (Reason: dyspnea) melatonin 5 mg tablet 2 tab PO BEDTIME PRN (Reason: insomnia) cefuroxime axetil 500 mg Tablet 500 mg PO Q12H 6 Days Qty: 12 0RF doxycycline hyclate 100 mg Tablet 100 mg PO Q12H 6 Days Qty: 12 0RF oxycodone 5 mg Tablet 5 mg PO Q6H PRN (Reason: Pain, Severe (Pain Scale 7-10)) 12 Days 0RF prednisone 10 mg tablet See Taper PO DAILY Qty: 18 0RF Taper: Prednisone 30 mg daily for 3 Days and 0 Hour 20 mg daily for 3 Days and 0 Hour 10 mg daily for 3 Days and 0 Hour warfarin 5 mg tablet 5 mg PO DAILY Qty: 90 0RF Protocol: Dose Management Condition: Wednesday (Week One) Dose/Route: 7.5 mg Instruction: 1.5 x 5 mg tablets Condition: Wednesday Dose/Route: 5 mg Instruction: 1 x 5 mg tablet Condition: Wednesday Dose/Route: 5 mg Instruction: 1 x 5 mg tablet Condition: Wednesday Dose/Route: 5 mg Instruction: 1 x 5 mg tablet Condition: Dose/Route: 5 mg Instruction: 1 x 5 mg tablet Condition: Wednesday Dose/Route: 5 mg Instruction: 1 x 5 mg tablet Condition: Wednesday Dose/Route: 5 mg Instruction: 1 x 5 mg tablet Condition: Wednesday (Week Two) Dose/Route: 7.5 mg Instruction: 1.5 x 5 mg tablets Condition: Wednesday Dose/Route: 5 mg Instruction: 1 x 5 mg tablet Condition: Wednesday Dose/Route: 5 mg Instruction: 1 x 5 mg tablet Condition: Wednesday Dose/Route: 7.5 mg Instruction: 1.5 x 5 mg tablets Condition: Dose/Route: 5 mg Instruction: 1 x 5 mg tablet Condition: Wednesday Dose/Route: 5 mg Instruction: 1 x 5 mg tablet Condition: Wednesday Dose/Route: 5 mg Instruction: 1 x 5 mg tablet Protocol Text: Adjustment Start Date: Wednesday06/11/21 INR Value: 3.4 INR Date: 06/11/21 Recheck Date: 06/19/21 Additional Instructions: REDUCE DOSE TO 5MG TODAY EAT GREENS TO LOWER INR NO RED FRUIT/ORANGE VEG FOR 2 DAYS zolpidem 10 mg tablet 10 mg PO BEDTIME PRN olanzapine 2.5 mg tablet 2.5 mg PO DAILY lisinopril 10 mg tablet 10 mg PO QAM pantoprazole 40 mg tablet,delayed release (DR/EC) 40 mg PO magnesium oxide 400 mg (241.3 mg magnesium) tablet 800 mg PO amlodipine 2.5 mg tablet 2.5 mg PO QAM thiamine HCl (vitamin B1) 100 mg tablet 100 mg PO QAM metoprolol succinate 50 mg tablet extended release 24 hr 50 mg PO QAM atorvastatin 20 mg tablet 20 mg PO QAM (DME) blood pressure test kit-large Kit See Rx Instructions .ROUTE DIRECTED Qty: 1 Rx Instructions: As directed folic acid 1 mg tablet 1 mg PO QAM lidocaine 5 % adhesive patch,medicated 0 patch topical hydrocortisone [Proctosol HC] 2.5 % cream with perineal applicator WI BID PRN acetaminophen 500 mg tablet 500 mg PO BID PRN (Reason: pain) trazodone 50 mg tablet 50 mg PO BEDTIME PRN buspirone 10 mg tablet 10 mg PO TID
[2021-10-10] MEDS: HYDROmorphone HCl 0.5 MG/0.5 ML SYRINGE 0.25 MG IVPUSH (03:44)
[2021-10-10] MEDS: 0.9 % Sodium Chloride 1,000 ML 999 ML IV (03:48)
--- NOTE | 2021-10-10 05:32 | PC.NURSE ---
Provider is aware of critical lab value INR 11.7, PT 148.6, aPTT 74.1-no s/s of active bleeding noted.
--- NOTE | 2021-10-10 08:54 | PC.NURSE ---
hospitalist at bedside with jig box operator. pt is willing to stay for admission. states he drinks but infrequently. fell in bathtub on 4th when he was drinking but hasn't had ETOH since. denies ever having withdrawal sx. pt has been ambulating in department, seeking food and coffee frequently. .
[2021-10-10 09:21] LABS: COVID-19 Test Negative (Negative)
--- NOTE | 2021-10-10 09:48 | PHA.MEDREC ---
Addendum entered by Soraya Cantrell [facility] 10/10/21 09:54: When asked about OTC medications pt also stated he bought a perc for the pain the other day. Original Note: Pharmacy Consult ? Medication Reconciliation Pharmacy has completed the medication reconciliation. Clinical Project Coordinator services used, pt poor historian. Could only name his ambien; asked about warfarin dosing but he stated he is unsure because he can't read or write. Stated he gets all of his medications from [facility] so his pharmacy claim history should be accurate, stated he takes a lot of them and confirmed he takes everything that has been filled recently. Med rec done based on claim history.
--- NOTE | 2021-10-10 09:53 | P.HPHOSP_ITS ---
History of Present Illness Date of Service: 10/10/21 Chief Complaint: Fall 2 days ago This is a 61 year old male with a PMH as outlined below who presents to the ED after he sustained a fall 2 days prior to admission. Despite the use of a Lao speaking client solutions manager, the history is limited as the patient is a vague historian. The patient reports he drank on the 06 of October and later that night sustained a fall. He denies any loss of consciousness. He came to the ED today because his chronic lower back pain was bothering him and he was concerned. He denies any weakness or numbness in the leg that is new. He denies any bladder/bowel incontinence nor retention. He reports his back pain his chronic from a fracture. Upon arrival to the ED, the patients work up revealed an elevated INR (He is on coumadin) and EDGAR. He was given IV pain meds and IVF. His imaging studies including chest head, chest, abdomen/pelvis, lumbar spine are negative for any acute fidings. Review of Systems Review of Systems: negative except [facility] Medical History Alcohol abuse Alcoholic liver disease Cocaine abuse Hypertension Pacemaker Short-segment Harrell's esophagus Skull fracture Surgical History Aortic valve replaced History of esophagogastroduodenoscopy (EGD) Social History Household Members: None Housing: Apartment Do you presently have visiting nurse or other home services: Yes Alcohol intake: current Alcohol intake frequency: a few times a week Alcohol type: beer Patient Tobacco Use Status: Current everyday Tobacco user Tobacco use type: Cigarette Cigarette Packs Per Day: 0.5 Second Hand Smoke Exposure: No Substance Use Type: Crack/Cocaine Advance Directives: Yes Advance Directives on File: Yes Advance Directives Date on File: 10/18/20 service: No Current occupational status: disabled Meds Allergies Allergy/AdvReac Type Severity Reaction Status Date / Time lorazepam [From ATIVAN] AdvReac Severe OPPOSITE Verified 07/17/21 11:28 EFFECT PSYCOTIC EFECTS Active Medications: Current Medications Acetaminophen (Acetaminophen 325 Mg Tablet) 650 mg PO Q6H PRN PRN Reason: Pain, Mild (Pain Scale 1-3) Lactated Ringer's (Lr) 1,000 mls @ 100 mls/hr IVCONT .Q10H [facility] Stop: 10/11/21 05:59 Ondansetron HCl (Ondansetron Hcl 4 Mg/2 Ml Vial) 4 mg IVPUSH Q8H PRN PRN Reason: Nausea and Vomiting Pharmacy Consult (Consult Rx Perform Med Rec) 1 each MISCELLANE ONCE PRN PRN Reason: Consult order Sodium Chloride (0.9 % Sodium Chloride Flush 3 Ml Syringe) 3 ml IVFLUSH QSHIFT [facility] Home Medications Medication Instructions Recorded Confirmed Last Taken Type albuterol sulfate 90 mcg/actuation 2 puff PO Q4H PRN dyspnea 10/18/20 10/10/21 Unknown History aerosol inhaler (ProAir HFA) melatonin 5 mg tablet 2 tab PO BEDTIME PRN insomnia 10/18/20 10/10/21 Unknown History amlodipine 2.5 mg tablet 2.5 mg PO DAILY 11/18/20 10/10/21 Unknown History atorvastatin 20 mg tablet 20 mg PO DAILY 11/18/20 10/10/21 Unknown History blood pressure test kit-large #1 ea 11/18/20 01/31/21 Unknown History folic acid 1 mg tablet 1 mg PO DAILY 11/18/20 10/10/21 Unknown History lidocaine 5 % topical patch 1 patch topical DAILY 11/18/20 10/10/21 Unknown History lisinopril 10 mg tablet 10 mg PO DAILY 11/18/20 10/10/21 Unknown History magnesium oxide 400 mg (241.3 mg 800 mg PO BID 11/18/20 10/10/21 Unknown History magnesium) tablet metoprolol succinate 50 mg 50 mg PO DAILY 11/18/20 10/10/21 Unknown History tablet,extended release 24 hr pantoprazole 40 mg tablet,delayed 40 mg PO BID 11/18/20 10/10/21 Unknown History release thiamine HCl (vitamin B1) 100 mg 100 mg PO DAILY 11/18/20 10/10/21 Unknown History tablet zolpidem 10 mg tablet 10 mg PO BEDTIME PRN Sleep 12/02/20 10/10/21 10/10/21 History buspirone 10 mg tablet 10 mg PO TID 01/31/21 10/10/21 Unknown History clopidogrel 75 mg tablet 1 tab PO DAILY 10/10/21 10/10/21 Unknown History olanzapine 5 mg tablet 1 tab PO DAILY 10/10/21 10/10/21 Unknown History Physical Exam Vital Signs and Narrative: Vital Signs: Last Vital Signs Temp 98.5 F 10/10/21 08:56 Pulse 84 10/10/21 08:56 Resp 18 10/10/21 08:56 BP 136/79 10/10/21 08:56 Pulse Ox 95 10/10/21 08:56 O2 Del Method 10/10/21 08:56 Const: Other: Constitutional - Awake and Alert, No apparent distress Eyes - PERRLA, EOMI Cardiovascular - S1S2, RRR, No edema Respiratory - Normal lung expansion, Normal respiratory effort, No respiratory distress, CTA bilaterally Gastrointestinal - NT / ND; +BS; No rebound or guarding - No CVA tenderness Extremities - no calf tenderness bilaterally, no swelling Musculoskeletal - Normal inspection, normal ROM; some spinal TTP; SLR neg b/l Skin - Warm/Dry Neurological - Alert & oriented x3, No focal defiicit; b/l LE strength 5/5; no sensory deficits; no saddle anestheia Psychological - Appropriate affect Results Labs CBC and Chem 7: 10/10/21 02:17 10/10/21 02:17 Labs: Laboratory Results - last 24 hr 10/10/21 10/10/21 10/10/21 02:17 02:17 02:17 MCV 86.1 MCH 29.3 MCHC 34.0 RDW 17.2 H Plt Count 259 MPV 9.4 Immature Gran % (Auto) 0.3 Neut % (Auto) 62.2 Lymph % (Auto) 22.6 Sully % (Auto) 9.8 Eos % (Auto) 4.7 H Baso % (Auto) 0.4 Lymph # (Auto) 1.7 Sully # (Auto) 0.8 Eos # (Auto) 0.4 Baso # (Auto) 0.0 Abs Immat Gran (auto) 0.02 Absolute Neuts (auto) 4.7 Absolute Nucleated RBC 0.000 Nucleated RBC % (auto) 0.0 PT 148.6 H INR 11.7 H* D APTT 74.1 H* Anion Gap 15 Estim Creat Clear Calc TNP Estimated GFR 38 Random Glucose 104 Calcium 8.8 Total Bilirubin 0.4 AST 49 H D ALT 58 H Alkaline Phosphatase 125 H Total Protein 7.2 Albumin 3.9 Lipase 25 Urine Color Urine Appearance Urine pH Ur Specific [place] Urine Protein Urine Glucose (UA) Urine Ketones Urine Blood Urine Nitrite Ur Leukocyte Esterase Urine RBC Urine WBC Ur Squamous Epith Cells Urine Bacteria Hyaline Casts Urine Mucus COVID-19 ([facility]) COVID-19 Clin Com 10/10/21 10/10/21 03:01 09:00 MCV MCH MCHC RDW Plt Count MPV Immature Gran % (Auto) Neut % (Auto) Lymph % (Auto) Sully % (Auto) Eos % (Auto) Baso % (Auto) Lymph # (Auto) S[place] # (Auto) Eos # (Auto) Baso # (Auto) Abs Immat Gran (auto) Absolute Neuts (auto) Absolute Nucleated RBC Nucleated RBC % (auto) PT INR APTT Anion Gap Estim Creat Clear Calc Estimated GFR Random Glucose Calcium Total Bilirubin AST ALT Alkaline Phosphatase Total Protein Albumin Lipase Urine Color DK YELLOW Urine Appearance HAZY Urine pH 6.0 Ur Specific [place] >= 1.030 H Urine Protein 2+ H Urine Glucose (UA) NEG Urine Ketones 5 Urine Blood TRACE Urine Nitrite NEG Ur Leukocyte Esterase NEG Urine RBC 0-2 Urine WBC 0-2 Ur Squamous Epith Cells 1+ Urine Bacteria TRACE Hyaline Casts 1-4 Urine Mucus 1+ COVID-19 ([facility]CTOR M) Negative COVID-19 Clin Com See Note Imaging Radiologist's Impressions: Impressions Abdomen/Pelvis CT 10/10/21 04:05 IMPRESSION: No acute traumatic findings of the chest, abdomen, or pelvis. No fractures are identified. There is a new groundglass opacity in the right upper lobe. This may be infectious or inflammatory. Additionally, multiple pulmonary nodules are identified, which are not clearly visualized on previous imaging. The largest measures 0.5 cm. According to the UPDATED 2017 Fleischner Society recommendations, the advised follow-up imaging for solid nodules < 6 mm is: LOW RISK PATIENT: No routine follow-up. HIGH RISK PATIENT: Optional CT at 12 months. Nonobstructing left renal calculus. Chest CT 10/10/21 04:05 IMPRESSION: No acute traumatic findings of the chest, abdomen, or pelvis. No fractures are identified. There is a new groundglass opacity in the right upper lobe. This may be infectious or inflammatory. Additionally, multiple pulmonary nodules are identified, which are not clearly visualized on previous imaging. The largest measures 0.5 cm. According to the UPDATED 2017 Fleischner Society recommendations, the advised follow-up imaging for solid nodules < 6 mm is: LOW RISK PATIENT: No routine follow-up. HIGH RISK PATIENT: Optional CT at 12 months. Nonobstructing left renal calculus. Head CT 10/10/21 04:05 IMPRESSION: No acute intracranial pathology. Assessment and Plan (1) Supratherapeutic INR: Status: Acute Plan This is a 61 yo M with multiple medical issues including asthma/copd, AVR on coumadin, TBI, alcohol abuse (he denies daily drinking but rather endorses heavy binge episodes -- last drink 4 days [employer]), who presents with complaints of back pain after sustaining a fall several days prior to arrival. He is found to have EDGAR and a supratherapeutic INR. He will be admitted for further care. 1. EDGAR SCr 1.82 on admission (more than double his baseline of 0.8) gentle IVF as he has a HFrEF check bmp tomorrow check cpk 2. supratherapuetic INR, AVR (mechanical) hold coumadin repeat inr tomorrow hold of on vitamin k 3. Back pain due to lumbar radiculopathy R > L chronic and repeat imaging stable no alarm symptoms pain control monitor 4. Chronic HFrEF continue baseline meds 5. Mood baseline meds 6. Alcohol abuse reports episodes of binge drinking denies prior withdrawal symptoms monitor with ciwa for now as he is not exhibiting withdrawal symptoms Full Code DVT pptx -- supratherapeutic INR Inlight of his EDGAR and supratherapeutic INR, I anticipate a medically necessary, inpatient hospitalization, which is likely to span at least 2 midnights for treatment and monitoring of the above mentioned conditions. This cannot be completed in a less acute setting. Quality Stroke Does the patient have a stroke diagnosis?: No VTE Prior VTE?: No VTE Risk Level:: Medical - moderate - high VTE Device Contraindication: Treatment Not Indicated VTE Drug Contraindication: N/A - Med Ordered
[2021-10-10] MEDS: Lactated Ringers 1,000 ML 60 ML IVCONT (10:59)
[2021-10-10] MEDS: oxyCODONE HCl Immed Release 5 MG TABLET PO ×3 (10:59→22:58)
--- NOTE | 2021-10-10 11:06 | PC.NURSE ---
medicated for lower back pain. pt is aware of admission, need to call for help and avoid falls, and CT order. resting quietly now in bed.
--- NOTE | 2021-10-10 13:16 | PC.NURSE ---
rn to rn with Pauline in [place].
[2021-10-10] MEDS: Acetaminophen 325 MG TABLET 650 MG PO (14:49)
[2021-10-10] MEDS: Metoprolol Succinate ER 50 MG TAB.ER.24H PO (16:53)
[2021-10-10] MEDS: Omeprazole 20 MG CAPSULE.DR PO (16:53)
--- NOTE | 2021-10-10 19:03 | PC.NURSE ---
PATIENT IS INDEPENDENT WITH ALL HIS OWN CARE ,ATE 100 % OF MEALS .
[2021-10-10] MEDS: busPIRone HCl 10 MG TABLET PO (21:48)
[2021-10-10] MEDS: Magnesium Oxide 400 MG TABLET 800 MG PO (21:48)
[2021-10-10] MEDS: Melatonin 3 MG TABLET 6 MG PO (21:48)
[2021-10-10] MEDS: Zolpidem Tartrate 5 MG TABLET PO (21:52)
--- NOTE | 2021-10-11 00:30 | PC.NURSE ---
RESTING COMF,MONITOR V PACED.IV FLUIDS RUNNING.CIWA 0
[2021-10-11] MEDS: Lactated Ringers 1,000 ML 60 ML IVCONT (04:05)
[2021-10-11] MEDS: oxyCODONE HCl Immed Release 5 MG TABLET PO (05:09)
[2021-10-11] MEDS: Omeprazole 20 MG CAPSULE.DR PO (05:09)
[2021-10-11 06:25] VITALS: BP 136/96; PULSE 97; RESP 19; O2SAT 96
[2021-10-11 08:12] LABS: Hematocrit 36.2 % (42.0-52.0); Hemoglobin 11.9 g/dl (14.0-18.0); Mean Corpuscular HGB Conc 32.9 g/dl (31.0-36.0); Mean Corpuscular Hemoglobin 28.5 pg (27.0-33.0); Mean Corpuscular Volume 86.8 fL (80.0-98.0); Mean Platelet Volume 10.3 fL (9.4-12.4); Platelet Count 262 X10*3/uL (160-400); Red Blood Count 4.17 X10*6/uL (4.60-5.80); Red Cell Distribution Width 17.5 % (11.0-16.0); White Blood Count 6.8 X10*3/uL (4.8-10.8)
[2021-10-11 08:15] LABS: INTERNATIONAL NORM RATIO 4.3 (0.9-1.1)
[2021-10-11] MEDS: busPIRone HCl 10 MG TABLET PO (08:32)
[2021-10-11] MEDS: Magnesium Oxide 400 MG TABLET 800 MG PO (08:32)
[2021-10-11] MEDS: Atorvastatin Calcium 20 MG TABLET PO (08:32)
[2021-10-11] MEDS: Folic Acid 1 MG TABLET PO (08:32)
[2021-10-11] MEDS: Acetaminophen 325 MG TABLET 650 MG PO (08:32)
[2021-10-11] MEDS: lisinopriL 10 MG TABLET PO (08:33)
[2021-10-11] MEDS: amLODIPine Besylate 2.5 MG TABLET PO (08:33)
[2021-10-11] MEDS: Lidocaine 4 % Patch ADH..PATCH 1 PATCH TRANSDERMA (08:33)
[2021-10-11] MEDS: Thiamine HCL 100 MG TABLET PO (08:33)
[2021-10-11] MEDS: OLANZapine 5 MG TABLET PO (08:33)
[2021-10-11] MEDS: Metoprolol Succinate ER 50 MG TAB.ER.24H PO (08:33)
[2021-10-11 08:40] LABS: Anion Gap 12 (12-20); Blood Urea Nitrogen 9 mg/dL (9-16); Calcium 9.2 mg/dL (8.4-10.2); Carbon Dioxide 28 mmol/L (22-29); Chloride 101 mmol/L (96-108); Estimated Glomerular Filt Rate > 60; Glucose Random 96 mg/dL (60-115); Potassium 4.7 mmol/L (3.3-5.1); Sodium 136 mmol/L (135-145)
--- NOTE | 2021-10-11 09:53 | P.DS_ITS ---
DS: Providers Provider Date of Service: 10/11/21 Date of admission: 10/10/21 09:50 Primary care physician: [facility] DS: Diagnosis Discharge Diagnosis (1) EDGAR (acute kidney injury): Status: Acute (2) Supratherapeutic INR: Status: Acute DS: Summary Hospital Course Hospital Course: HPI: This is a 61 year old male with a PMH as outlined below who presents to the ED after he sustained a fall 2 days prior to admission. Despite the use of a Citizen [place] speaking seismic interpreter, the history is limited as the patient is a vague historian. The patient reports he drank on the 06 of October and later that night sustained a fall. He denies any loss of consciousness. He came to the ED today because his chronic lower back pain was bothering him and he was concerned. He denies any weakness or numbness in the leg that is new. He denies any bladder/bowel incontinence nor retention. He reports his back pain his chronic from a fracture. Upon arrival to the ED, the patients work up revealed an elevated INR (He is on coumadin) and EDGAR. He was given IV pain meds and IVF. His imaging studies including chest head, chest, abdomen/pelvis, lumbar spine are negative for any acute fidings. Hopsital Course: Patient was treated with gentle hydration for his acute kidney injury. His Coumadin was obviously held for supratherapeutic INR. A CT of the lumbar spine revealed note significant changes since prior scans. His back pain resolved with analgesics. His INR is down trending. Patient was advised additional 24 hours in the hospital to ensure stability of both his INR as well as acute renal failure. However, he requested discharge and that he will follow-up with [facility] early next week for repeat blood work. Joint decision was made and he was discharged home. Time Spent with Patient Time attestation: Total time spent providing and/or coordinating discharge services: Discharge coordination time: Greater than 30 minutes Quality: Safe Use of Opioids Does Pt have an Active Cancer Diagnosis on the Problem List?: No Quality: Stroke Does the patient have a stroke diagnosis?: No Physical Exam Vital Signs: Vital Signs: Last Vital Signs Temp 98.3 F 10/10/21 19:54 Pulse 97 10/11/21 06:25 Resp 19 10/11/21 06:25 BP 136/96 H 10/11/21 06:25 Pulse Ox 96 10/11/21 06:25 O2 Del Method 10/11/21 06:25 Const: Other: General - no acute distress, appears comfortable Cardiovascular - regular rate and rhythm, S1-S2 Lungs - normal respiratory effort, clear to auscultation bilaterally, no wheezing Abdomen - soft, nontender, no rebound or guarding Extremities - no edema bilaterally Neuro - awake and alert, no focal deficits DS: Data Data Completed and Pending Completed studies during hospitalization [Text1]: Procedures Detoxification Services for Substance Abuse Treatment (10/18/20) Labs on day of discharge: Laboratory Results - last 24 hr 10/11/21 10/11/21 10/11/21 07:50 07:50 07:50 WBC 6.8 RBC 4.17 L Hgb 11.9 L Hct 36.2 L MCV 86.8 MCH 28.5 MCHC 32.9 RDW 17.5 H Plt Count 262 MPV 10.3 Absolute Nucleated RBC 0.000 Nucleated RBC % (auto) 0.0 PT 53.0 H INR 4.3 H D Sodium 136 Potassium 4.7 Chloride 101 Carbon Dioxide 28 Anion Gap 12 BUN 9 D Creatinine 0.77 Estim Creat Clear Calc TNP Estimated GFR > 60 Random Glucose 96 Calcium 9.2 Total Creatine Kinase 10/11/21 07:50 WBC RBC Hgb Hct MCV MCH MCHC RDW Plt Count MPV Absolute Nucleated RBC Nucleated RBC % (auto) PT INR Sodium Potassium Chloride Carbon Dioxide Anion Gap BUN Creatinine Estim Creat Clear Calc Estimated GFR Random Glucose Calcium Total Creatine Kinase 127 Discharge Plan Discharge Patient Disposition: Home, Self-Care Discharge Diagnosis: EDGAR Supratherapeutic INR Referrals: [facility] [Primary Care Provider] - 1 Week Discharge Medications: Continued albuterol sulfate [ProAir HFA] 90 mcg/actuation HFA aerosol inhaler 2 puff PO Q4H PRN (Reason: dyspnea) melatonin 5 mg tablet 2 tab PO BEDTIME PRN (Reason: insomnia) clopidogrel 75 mg tablet 1 tab PO DAILY olanzapine 5 mg tablet 1 tab PO DAILY zolpidem 10 mg tablet 10 mg PO BEDTIME PRN (Reason: Sleep) lisinopril 10 mg tablet 10 mg PO DAILY pantoprazole 40 mg tablet,delayed release (DR/EC) 40 mg PO BID magnesium oxide 400 mg (241.3 mg magnesium) tablet 800 mg PO BID amlodipine 2.5 mg tablet 2.5 mg PO DAILY thiamine HCl (vitamin B1) 100 mg tablet 100 mg PO DAILY metoprolol succinate 50 mg tablet extended release 24 hr 50 mg PO DAILY atorvastatin 20 mg tablet 20 mg PO DAILY (DME) blood pressure test kit-large Kit See Rx Instructions .ROUTE DIRECTED Qty: 1 Rx Instructions: As directed folic acid 1 mg tablet 1 mg PO DAILY lidocaine 5 % adhesive patch,medicated 1 patch topical DAILY buspirone 10 mg tablet 10 mg PO TID Held warfarin 5 mg tablet 5 mg PO DAILY Qty: 90 0RF Hold Instructions: Resume on 10/13/21. Do not restart until repeat INR at [facility] on 10/13/21 Protocol: Dose Management Condition: Wednesday (Week One) Dose/Route: 7.5 mg Instruction: 1.5 x 5 mg tablets Condition: Wednesday Dose/Route: 5 mg Instruction: 1 x 5 mg tablet Condition: Wednesday Dose/Route: 5 mg Instruction: 1 x 5 mg tablet Condition: Wednesday Dose/Route: 5 mg Instruction: 1 x 5 mg tablet Condition: Dose/Route: 5 mg Instruction: 1 x 5 mg tablet Condition: Wednesday Dose/Route: 5 mg Instruction: 1 x 5 mg tablet Condition: Wednesday Dose/Route: 5 mg Instruction: 1 x 5 mg tablet Condition: Wednesday (Week Two) Dose/Route: 7.5 mg Instruction: 1.5 x 5 mg tablets Condition: Wednesday Dose/Route: 5 mg Instruction: 1 x 5 mg tablet Condition: Wednesday Dose/Route: 5 mg Instruction: 1 x 5 mg tablet Condition: Wednesday Dose/Route: 7.5 mg Instruction: 1.5 x 5 mg tablets Condition: Dose/Route: 5 mg Instruction: 1 x 5 mg tablet Condition: Wednesday Dose/Route: 5 mg Instruction: 1 x 5 mg tablet Condition: Wednesday Dose/Route: 5 mg Instruction: 1 x 5 mg tablet Protocol Text: Adjustment Start Date: Wednesday06/11/21 INR Value: 3.4 INR Date: 06/11/21 Recheck Date: 06/19/21 Additional Instructions: REDUCE DOSE TO 5MG TODAY EAT GREENS TO LOWER INR NO RED FRUIT/ORANGE VEG FOR 2 DAYS Discharge Orders: Discharge Order (Routine); Ordered 10/11/21 Ordered By: Gianfranco Mcknight Diet: Advance to usual diet Activity on Discharge: As tolerated Stand Alone Forms: Patient Portal Discharge page Other Ambulatory Orders: Prothrombin Time INR (Routine) Timeframe: [id number] Facility: [facility] - Location: Laboratory Ordered By: Gianfranco Mcknight Care Plan Goals: To stay healthy and out of the hospital. Health Concerns: Elevated INR kidney injury Plan of Treatment: Follow up at [facility] on Wednesday10/13/21 for INR check. DO not take coumadin until this Assessment: see d/c summary
--- NOTE | 2021-10-11 11:16 | PC.NURSE ---
pt discharged with banquet chef at bedside, discharge instructions given to patient. pt's son picking up pt from main entrance. safety and fall precautions maintained. call lambert within reach. Iv removed, tele removed, all belongings with patient
== END 2021-10-11 11:16 | disposition home or self-care (01) | DRG 469 ==
LOC: HO.ED 06:44 → HO.EDOVER 09:56
PROVIDERS: Admitting Provider Family Medicine; Emergency Provider Student in an Organized Health Care Education/Training Program; PCP Family Medicine; Visit Provider Family Medicine
DX: N17.9 Acute kidney failure, unspecified (principal); I50.22 Chronic systolic (congestive) heart failure; F10.10 Alcohol abuse, uncomplicated; R79.1 Abnormal coagulation profile; F17.210 Nicotine dependence, cigarettes, uncomplicated; M54.16 Radiculopathy, lumbar region; Z20.822 Contact with and (suspected) exposure to COVID-19; Z95.2 Presence of prosthetic heart valve; Z71.6 Tobacco abuse counseling; Z79.01 Long term (current) use of anticoagulants; Z79.02 Long term (current) use of antithrombotics/antiplatelets; Z79.899 Other long term (current) drug therapy
CPT/HCPCS: 36415; 70450; 71250; 72131; 74176; 80048; 80053; 81001; 82550; 83690; 85025; 85027; 85610; 85730; 87635; 99219; 99285; J1170

== ENCOUNTER 2021-10-21 12:54 | Emergency (ER) | payer MEDICAID, SELFPAY ==
[2021-10-21] VITALS (9 sets, daily range): BP systolic 131–157; BP diastolic 59–83; PULSE 74–101; RESP 14–18; TEMP 36.1; O2SAT 95–100; BMI 25.8; BMI 28.8
--- NOTE | ~2021-10-21 | CT_ITS ---
EXAMINATION: CT HEAD WITHOUT CONTRAST CLINICAL INFORMATION: Altered mental status. COMPARISON: None TECHNIQUE: Contiguous axial imaging was performed from the skull base to vertex without intravenous administration of contrast. This CT examination was performed using dose optimization techniques as appropriate, variously including the following: *Automated exposure control *Adjustment of mA and/or kV according to patient size (this includes techniques or standardized protocols for targeted exams where dose is matched to indication/reason for exam; i.e. extremities or head) *Use of iterative reconstruction technique DLP: 1219 mGy-cm CT/CT head/brain wo con FINDINGS/IMPRESSION: The study is severely limited by motion artifact, and is therefore virtually nondiagnostic. There is an approximately 5 x 3.5 x 2.5 cm acute right temporal intraparenchymal hemorrhage with associated edema. There is a suspicion of an approximately 1.5 cm acute left temporal intraparenchymal hemorrhage (image 2, series 2). There is a question of a pontine infarct versus artifact, identified on the first image of series 2. There may be mild compression of the right lateral ventricle related to edema from the right temporal hemorrhage/edema. No significant midline shift is seen. No obvious extra-axial collection is noted. DC Daniels was directly informed of the findings by telephone at approximately 2:20 PM on October 21, 2021.
--- NOTE | ~2021-10-21 | XR_ITS ---
EXAMINATION: XR CHEST CLINICAL INFORMATION: Post intubation COMPARISON: CT scan of October 10, 2021 and chest x-ray of October 18, 2020 TECHNIQUE: AP portable view of the chest was obtained. FINDINGS: Endotracheal tube tip is seen approximately 3 cm above the nabor. Enteric catheter is seen overlying the region of the stomach. There is a left atelectasis/scarring seen at the left base. Heart normal size. There is some central peribronchial cuffing present which may relate to pulmonary vascular congestion. No airspace edema is present. Patient status post median sternotomy and mitral valve surgery. Pacemaker seen in place. Surgical clips seen overlying the left lateral chest. XR/XR chest 1V IMPRESSION: Endotracheal tube tip approximately 3 cm above the nabor.
--- NOTE | 2021-10-21 13:11 | ED.AMS ---
HPI - Altered Mental Status General Chief Complaint: Altered Mental Status Stated Complaint: etoh intoxication,uncooperative per ems Time Seen by Provider: 10/21/21 13:09 Source: patient, EMS and old records reviewed Mode of arrival: EMS Limitations: altered mental status History of Present Illness HPI narrative: 61 yo male with hx of AVR on coumadin recently seen here with INR 11.7 DC on 10/11, IBS, EDGAR, TIA, alcohol abuse EMS was called as patient was mumbling, acting strange ?ETOH intoxication. Family present on scene and EMS notes that patient was able to communicate with him. EMS removed a hospital band from 10/19 on his wrist (couldn't tell me the hospital) and he has posterior scalp shmuel. Patient is agitated, attempting to leave multiple times, mumbling to himself. No new head trauma noted. A neighbor called 911 for patient acting confused MD complaint: altered mental status and confusion Onset (ago): unknown Timing confirmed by: other (neighbor) Severity: moderate Consistency of symptoms: constant Context: alcohol abuse and trauma (has old shmuel to posterior scalp) Associated symptoms: denies other symptoms Related Data Home Medications Medication Instructions Recorded Confirmed albuterol sulfate 90 mcg/actuation 2 puff PO Q4H PRN dyspnea 10/18/20 10/10/21 aerosol inhaler (ProAir HFA) melatonin 5 mg tablet 2 tab PO BEDTIME PRN insomnia 10/18/20 10/10/21 amlodipine 2.5 mg tablet 2.5 mg PO DAILY 11/18/20 10/10/21 atorvastatin 20 mg tablet 20 mg PO DAILY 11/18/20 10/10/21 blood pressure test kit-large #1 ea 11/18/20 01/31/21 folic acid 1 mg tablet 1 mg PO DAILY 11/18/20 10/10/21 lidocaine 5 % topical patch 1 patch topical DAILY 11/18/20 10/10/21 lisinopril 10 mg tablet 10 mg PO DAILY 11/18/20 10/10/21 magnesium oxide 400 mg (241.3 mg 800 mg PO BID 11/18/20 10/10/21 magnesium) tablet metoprolol succinate 50 mg 50 mg PO DAILY 11/18/20 10/10/21 tablet,extended release 24 hr pantoprazole 40 mg tablet,delayed 40 mg PO BID 11/18/20 10/10/21 release thiamine HCl (vitamin B1) 100 mg 100 mg PO DAILY 11/18/20 10/10/21 tablet zolpidem 10 mg tablet 10 mg PO BEDTIME PRN Sleep 12/02/20 10/10/21 buspirone 10 mg tablet 10 mg PO TID 01/31/21 10/10/21 clopidogrel 75 mg tablet 1 tab PO DAILY 10/10/21 10/10/21 olanzapine 5 mg tablet 1 tab PO DAILY 10/10/21 10/10/21 Previous Rx's Medication Instructions Recorded warfarin 5 mg tablet 5 mg PO DAILY #90 tabs 01/16/20 Allergies Allergy/AdvReac Type Severity Reaction Status Date / Time lorazepam [From ATIVAN] AdvReac Severe OPPOSITE Verified 07/17/21 11:28 EFFECT PSYCOTIC EFECTS Review of Systems Review of Systems: ROS unable to be obtained due to altered mental status [facility] Past Medical History Attestation statement: The following information was validated with the patient. Medical History Alcohol abuse Alcoholic liver disease Cocaine abuse Hypertension Pacemaker Short-segment Harrell's esophagus Skull fracture Surgical History Aortic valve replaced History of esophagogastroduodenoscopy (EGD) Social History Social History Household Members: None Housing: Apartment Do you presently have visiting nurse or other home services: Yes Alcohol intake: current Alcohol intake frequency: a few times a week Alcohol type: beer Patient Tobacco Use Status: Current everyday Tobacco user Tobacco use type: Cigarette Cigarette Packs Per Day: 0.5 Second Hand Smoke Exposure: No Substance Use Type: Crack/Cocaine Advance Directives Date on File: 10/18/20 service: No Current occupational status: disabled Physical Exam ED Vital Signs: Vital Signs - 24 hr 10/21/21 13:30 10/21/21 14:17 Temperature 97.0 F Pulse Rate 82 90 Respiratory Rate 16 14 Blood Pressure 132/59 L 131/78 Pulse Oximetry 96 95 Oxygen Delivery Method Room Air Nasal Cannula Oxygen Flow Rate 2 BMI result Body Mass Index 28.8 Appearance: Confused, mumbling to himself, moderate acute distress. Eyes: Pupils equal, round and reactive to light. 3mm ENT: Pharynx normal. old appearing shmuel incision intact posterior scalp Neck: Normal inspection. Neck supple. CVS: Normal heart rate and rhythm. Pulses normal. Respiratory: No respiratory distress. Breath sounds normal. Abdomen: Soft and nontender. atrauamatic Skin: Skin warm and dry. Normal skin color. Normal skin turgor. Extremities: No lower extremity edema. old bruises on forearm, old gauze and tape over bilateral ACs Neuro: Confused, moving all extremities No motor deficit. No sensory deficit. mumbling to himself repeatedly ripping things off and trying to get up Course Course Course Narrative: agitated on CT table given allergy to ativan - causing psychotic effects, IV fentanyl ordered in addition to olanzapine ICH noted, INR 1.8 has valve - mechanical IPH 132/59 called sister Elizabeth - patient fell on Thursday 10/19 went to [facility] family unsure what else happened, patient is FULL CODE. call to [facility] for transfer 207pm - from transfer line was admitted 10/19 overnight had small SAH, small R frontal subdural hematoma today's CT scan large R temporal intraparenchymal hemorrhage no obvious shift has mechanical valve INR 1.8 but with significant bleed at this time, will ask Neurology at [facility] if they want Kcentra pharmacy has medication ready Dr. Ho aware with INR 1.8 just to hold off at this time on Kcentra please discuss with MICU attending call from ICU fellow Delfin, will discuss with Neuro ICU Circeo. Potentially reverse INR waiting to hear back from attending. at this point the patient is so agitated, requiring restraints I think this is going to affect his blood pressures (highest 156 / 100 when he was fighting with staff) and cause more harm will intubate for better BP/sedation control and safety, patient mumbling unsure at this time if he would even be able to clear his airway. BP remains under [address] Levi Hoyt Neuro critical - accepted at this time they want to hold reversal they need to discuss with stroke service in order to give Kcentra. They want to wait til he gets to [facility] and if bleed progresses will give Kcentra. one gram of keppra given The study is severely limited by motion artifact, and is therefore virtually nondiagnostic. ? There is an approximately 5 x 3.5 x 2.5 cm acute right temporal intraparenchymal hemorrhage with associated edema. There is a suspicion of an approximately 1.5 cm acute left temporal intraparenchymal hemorrhage (image 2, series 2). ? There is a question of a pontine infarct versus artifact, identified on the first image of series 2. ? There may be mild compression of the right lateral ventricle related to edema from the right temporal hemorrhage/edema. No significant midline shift is seen. ? No obvious extra-axial collection is noted. ? DC Frances was directly informed of the findings by telephone at approximately 2:20 PM on October 21, 2021. MDM - Altered Mental Status MDM Narrative Medical decision making narrative: 61 yo male with hx of AVR on coumadin recently seen here with INR 11.7 DC on 10/11, IBS, EDGAR, TIA, alcohol abuse here with c/o confusion, mumbling he is difficult to keep in bed and a fall risk - at this time recent elevation in INR as well as shmuel seen on head - will need labs including ETOH level. CT scan for ICH ordered. Given inability to control the patient and get CT scan will obtain give IM zyprexa (has benzo allergy per records). Dispo per results and findings. Lab Data Result diagrams: 10/21/21 13:29 10/21/21 13:29 Labs: Lab Results 10/21/21 10/21/21 10/21/21 Range/Units 13:29 13:29 13:29 WBC 9.6 (4.8-10.8) X10*3/uL RBC 3.57 L (4.60-5.80) X10*6/uL Hgb 10.3 L (14.0-18.0) g/dl Hct 31.1 L (42.0-52.0) % MCV 87.1 (80.0-98.0) fL MCH 28.9 (27.0-33.0) pg MCHC 33.1 (31.0-36.0) g/dl RDW 17.4 H (11.0-16.0) % Plt Count 417 H D (160-400) X10*3/uL MPV 9.2 L (9.4-12.4) fL Immature Gran % (Auto) 0.9 H (0.0-0.4) % Neut % (Auto) 81.6 H (45-73) % Lymph % (Auto) 9.8 L (20-40) % Republic % (Auto) 7.4 (2-11) % Eos % (Auto) 0.1 (0-4) % Baso % (Auto) 0.2 (0-2) % Lymph # (Auto) 0.9 L (1.2-4.9) X10*3/uL Republic # (Auto) 0.7 (0.1-1.2) X10*3/uL Eos # (Auto) 0.0 (0.0-0.4) X10*3/uL Baso # (Auto) 0.0 (0.0-0.2) X10*3/uL Abs Immat Gran (auto) 0.09 H (0.00-0.03) X10*3/uL Absolute Neuts (auto) 7.8 (2.0-8.3) x10*3/uL Absolute Nucleated RBC 0.000 (0.0-0.012) X10*3/uL Nucleated RBC % (auto) 0.0 (0.0-0.2) /100WBC PT 21.5 H (10.0-13.1) SEC INR 1.8 H D (0.9-1.1) Sodium 126 L (135-145) mmol/L Potassium 4.2 (3.3-5.1) mmol/L Chloride 94 L (96-108) mmol/L Carbon Dioxide 23 (22-29) mmol/L Anion Gap 13 (12-20) BUN 15 D (9-16) mg/dL Creatinine 1.21 (0.5-1.4) mg/dL Estim Creat Clear Calc 67.0 Estimated GFR > 60 Random Glucose 118 H (60-115) mg/dL Calcium 8.8 (8.4-10.2) mg/dL Magnesium 1.9 (1.6-2.6) mg/dL Total Bilirubin 0.6 (0.0-1.0) mg/dL Direct Bilirubin 0.3 (0.0-0.5) mg/dL AST 16 D (5-37) U/L ALT 13 (0-40) U/L Alkaline Phosphatase 81 D (39-117) U/L Total Protein 7.1 (6.5-8.0) g/dL Albumin 3.9 (3.5-5.0) g/dL Ethyl Alcohol mg/dL COVID-19 (VICTOR M) (Negative) COVID-19 Clin Com 10/21/21 10/21/21 Range/Units 13:29 13:29 WBC (4.8-10.8) X10*3/uL RBC (4.60-5.80) X10*6/uL Hgb (14.0-18.0) g/dl Hct (42.0-52.0) % MCV (80.0-98.0) fL MCH (27.0-33.0) pg MCHC (31.0-36.0) g/dl RDW (11.0-16.0) % Plt Count (160-400) X10*3/uL MPV (9.4-12.4) fL Immature Gran % (Auto) (0.0-0.4) % Neut % (Auto) (45-73) % Lymph % (Auto) (20-40) % Republic % (Auto) (2-11) % Eos % (Auto) (0-4) % Baso % (Auto) (0-2) % Lymph # (Auto) (1.2-4.9) X10*3/uL Republic # (Auto) (0.1-1.2) X10*3/uL Eos # (Auto) (0.0-0.4) X10*3/uL Baso # (Auto) (0.0-0.2) X10*3/uL Abs Immat Gran (auto) (0.00-0.03) X10*3/uL Absolute Neuts (auto) (2.0-8.3) x10*3/uL Absolute Nucleated RBC (0.0-0.012) X10*3/uL Nucleated RBC % (auto) (0.0-0.2) /100WBC PT (10.0-13.1) SEC INR (0.9-1.1) Sodium (135-145) mmol/L Potassium (3.3-5.1) mmol/L Chloride (96-108) mmol/L Carbon Dioxide (22-29) mmol/L Anion Gap (12-20) BUN (9-16) mg/dL Creatinine (0.5-1.4) mg/dL Estim Creat Clear Calc Estimated GFR Random Glucose (60-115) mg/dL Calcium (8.4-10.2) mg/dL Magnesium (1.6-2.6) mg/dL Total Bilirubin (0.0-1.0) mg/dL Direct Bilirubin (0.0-0.5) mg/dL AST (5-37) U/L ALT (0-40) U/L Alkaline Phosphatase (39-117) U/L Total Protein (6.5-8.0) g/dL Albumin (3.5-5.0) g/dL Ethyl Alcohol < 10 mg/dL COVID-19 (VICTOR M) Negative (Negative) COVID-19 Clin Com See Note Procedures Intubation Time out performed: Yes sedative: Etomidate Mg Given: 20 paralytic: Rocuronium Mg Given: 50 Laryngoscope: other (glidescope) ET Tube Size: 7.5 ET Tube Uncuffed: Yes Tube Secured Depth (cm): 25 Tube Secured Location: teeth Tube Placement Confirmation: visualized tube passing through cords, equal breath sounds bilaterally, no breath sounds over epigastrium and confirmation by capnometry Patient Tolerated Procedure: well and no complications Intubation Complications: none Critical Care Time Critical Care Time Critical Care Time: Yes Total Critical Care Time: 90 Attestation: review of records, medical consult, tertiary center transfer, family discussion I attest to this time spent taking care of the patient Discharge Plan Discharge Clinical Impression: Intraparenchymal hemorrhage of brain Patient Disposition: [facility] Transfer Details: [facility] Prescriptions: No Action albuterol sulfate [ProAir HFA] 90 mcg/actuation HFA aerosol inhaler 2 puff PO Q4H PRN (Reason: dyspnea) melatonin 5 mg tablet 2 tab PO BEDTIME PRN (Reason: insomnia) clopidogrel 75 mg tablet 1 tab PO DAILY olanzapine 5 mg tablet 1 tab PO DAILY warfarin 5 mg tablet 5 mg PO DAILY Qty: 90 0RF Hold Instructions: Resume on 10/13/21. Do not restart until repeat INR at [facility] on 10/13/21 Protocol: Dose Management Condition: Wednesday (Week One) Dose/Route: 7.5 mg Instruction: 1.5 x 5 mg tablets Condition: Wednesday Dose/Route: 5 mg Instruction: 1 x 5 mg tablet Condition: Wednesday Dose/Route: 5 mg Instruction: 1 x 5 mg tablet Condition: Wednesday Dose/Route: 5 mg Instruction: 1 x 5 mg tablet Condition: Dose/Route: 5 mg Instruction: 1 x 5 mg tablet Condition: Wednesday Dose/Route: 5 mg Instruction: 1 x 5 mg tablet Condition: Wednesday Dose/Route: 5 mg Instruction: 1 x 5 mg tablet Condition: Wednesday (Week Two) Dose/Route: 7.5 mg Instruction: 1.5 x 5 mg tablets Condition: Wednesday Dose/Route: 5 mg Instruction: 1 x 5 mg tablet Condition: Wednesday Dose/Route: 5 mg Instruction: 1 x 5 mg tablet Condition: Wednesday Dose/Route: 7.5 mg Instruction: 1.5 x 5 mg tablets Condition: Dose/Route: 5 mg Instruction: 1 x 5 mg tablet Condition: Wednesday Dose/Route: 5 mg Instruction: 1 x 5 mg tablet Condition: Wednesday Dose/Route: 5 mg Instruction: 1 x 5 mg tablet Protocol Text: Adjustment Start Date: Wednesday06/11/21 INR Value: 3.4 INR Date: 06/11/21 Recheck Date: 06/19/21 Additional Instructions: REDUCE DOSE TO 5MG TODAY EAT GREENS TO LOWER INR NO RED FRUIT/ORANGE VEG FOR 2 DAYS zolpidem 10 mg tablet 10 mg PO BEDTIME PRN (Reason: Sleep) lisinopril 10 mg tablet 10 mg PO DAILY pantoprazole 40 mg tablet,delayed release (DR/EC) 40 mg PO BID magnesium oxide 400 mg (241.3 mg magnesium) tablet 800 mg PO BID amlodipine 2.5 mg tablet 2.5 mg PO DAILY thiamine HCl (vitamin B1) 100 mg tablet 100 mg PO DAILY metoprolol succinate 50 mg tablet extended release 24 hr 50 mg PO DAILY atorvastatin 20 mg tablet 20 mg PO DAILY (DME) blood pressure test kit-large Kit See Rx Instructions .ROUTE DIRECTED Qty: 1 Rx Instructions: As directed folic acid 1 mg tablet 1 mg PO DAILY lidocaine 5 % adhesive patch,medicated 1 patch topical DAILY buspirone 10 mg tablet 10 mg PO TID
[2021-10-21] MEDS: OLANZapine 10 MG VIAL 5 MG IM (13:36)
[2021-10-21 13:39] LABS: MANUAL DIFF FLAG NO
[2021-10-21 13:41] LABS: Basophils Percent Auto 0.2 % (0-2); Eosinophils Percent Auto 0.1 % (0-4); Hematocrit 31.1 % (42.0-52.0); Hemoglobin 10.3 g/dl (14.0-18.0); Imm Gran Abs Auto 0.09 X10*3/uL (0.00-0.03); Imm Gran Pct Auto 0.9 % (0.0-0.4); Lymphocytes Absolute Auto 0.9 X10*3/uL (1.2-4.9); Lymphocytes Percent Auto 9.8 % (20-40); Mean Corpuscular HGB Conc 33.1 g/dl (31.0-36.0); Mean Corpuscular Hemoglobin 28.9 pg (27.0-33.0); Mean Corpuscular Volume 87.1 fL (80.0-98.0); Mean Platelet Volume 9.2 fL (9.4-12.4); Monocytes Absolute Auto 0.7 X10*3/uL (0.1-1.2); Monocytes Percent Auto 7.4 % (2-11); Neutrophils Absolute Auto 7.8 x10*3/uL (2.0-8.3); Neutrophils Percent Auto 81.6 % (45-73); Platelet Count 417 X10*3/uL (160-400); Red Blood Count 3.57 X10*6/uL (4.60-5.80); Red Cell Distribution Width 17.4 % (11.0-16.0); White Blood Count 9.6 X10*3/uL (4.8-10.8)
[2021-10-21] MEDS: Thiamine HCL 200 MG in 0.9 % Sodium Chloride 100 ML 204 MG IV (13:44)
[2021-10-21] MEDS: ondansetron HCL 4 MG/2 ML VIAL IVPUSH (13:44)
[2021-10-21 13:49] LABS: INTERNATIONAL NORM RATIO 1.8 (0.9-1.1); Prothrombin Time 21.5 SEC (10.0-13.1)
[2021-10-21 13:56] LABS: COVID-19 Test Negative (Negative); Ethanol < 10 mg/dL; IDNOW Serial# 16C4AD1C
[2021-10-21 14:01] LABS: Alanine Aminotransferase 13 U/L (0-40); Albumin Level 3.9 g/dL (3.5-5.0); Alkaline Phosphatase 81 U/L (39-117); Anion Gap 13 (12-20); Aspartate Amino Transferase 16 U/L (5-37); Bilirubin Direct 0.3 mg/dL (0.0-0.5); Bilirubin Total 0.6 mg/dL (0.0-1.0); Blood Urea Nitrogen 15 mg/dL (9-16); Calcium 8.8 mg/dL (8.4-10.2); Carbon Dioxide 23 mmol/L (22-29); Chloride 94 mmol/L (96-108); Estimated Glomerular Filt Rate > 60; Glucose Random 118 mg/dL (60-115); Magnesium 1.9 mg/dL (1.6-2.6); Potassium 4.2 mmol/L (3.3-5.1); Sodium 126 mmol/L (135-145); Total Protein 7.1 g/dL (6.5-8.0)
[2021-10-21] MEDS: fentaNYL citrate/PF 100 MCG/2 ML VIAL 50 MCG IVPUSH (14:11)
--- NOTE | 2021-10-21 14:14 | PC.NURSE ---
@[phone] manuel dunn a call for the [facility] transfer line. dr jackson picked up the call right away
[2021-10-21] MEDS: Etomidate 20 MG/10 ML VIAL IVPUSH (14:56)
[2021-10-21] MEDS: Rocuronium Bromide 50 MG/5 ML VIAL IVPUSH (14:56)
--- NOTE | 2021-10-21 14:59 | PC.NURSE ---
PT WWAS INCONTINENT OF LARGE AMOUNT OF STOOL
--- NOTE | 2021-10-21 14:59 | PC.NURSE ---
INTUBATED BY DR PAL. 7.5 ET TUBE 25CM AT THE LIP, NO DIFFICULTIES NOTED.
[2021-10-21] MEDS: propofoL 1,000 MG/100 ML VIAL 16.38 MG IVCONT (15:06)
--- NOTE | 2021-10-21 15:08 | PC.NURSE ---
18FR OG TUBE PLACED
[2021-10-21] MEDS: fentaNYL citrate/NS 1,000 MCG/100 ML PLAST..BAG 2.5 MCG IVCONT (15:10)
--- NOTE | 2021-10-21 15:11 | PC.NURSE ---
Addendum entered by Linda Frye 10/21/21 15:25: @ [phone] [facility] PT TX LINE ALLISON GIVES A ROOM CHANGE OF: LEZAMA 5B, ROOM 12 Original Note: @ 1503 CALL RECEIVED FROM [facility] PT TX LINE WITH ROOM ASSIGNMENT TEJA 4B, BED 10 RN TO RN: [phone] CADET
[2021-10-21 15:50] LABS: Appearance Urine CLEAR; Color Urine YELLOW; Glucose Urine UA NEG (NEG); Leukocyte Esterase Urine NEG (NEG); Nitrite Urine NEG (NEG); Specific Gravity - Urine >= 1.030 (1.005-1.025); UACC Culture Trigger NO; Urine Blood 2+ (NEG); Urine Ketones 15 MG/DL (NEG); Urine Protein 1+ MG/DL (NEG-TRACE)
[2021-10-21 16:04] LABS: Amphetamine Screen Urine Not Detected (Not Detect); Barbiturates, Urine Not Detected (Not Detect); Benzodiazepines Screen Urine POSITIVE (Not Detect); Cannabinoid Screen Urine Not Detected (Not Detect); Cocaine Screen Urine Not Detected (Not Detect); Fentanyl, urine POSITIVE (Not Detect); Opiate Screen Urine POSITIVE (Not Detect); Phencyclidine Screen Urine Not Detected (Not Detect)
[2021-10-21 16:17] LABS: Renal Epithelial Cells Urine 2+ /LPF; Squamous Epithelial Cell Urine 1+ /LPF; WBC Urine 0-2 /HPF (0-4)
[2021-10-21 16:18] LABS: Mucus Urine TRACE /LPF
== END 2021-10-21 16:24 | disposition short-term general hospital (02) ==
LOC: HO.ED 15:13
PROVIDERS: Emergency Provider Emergency Medicine; PCP Family Medicine
DX: S06.369A Traumatic hemorrhage of cerebrum, unspecified, with loss of consciousness of unspecified duration, initial encounter (principal); W19.XXXA Unspecified fall, initial encounter; R45.1 Restlessness and agitation; Z20.822 Contact with and (suspected) exposure to COVID-19; I10 Essential (primary) hypertension; F14.10 Cocaine abuse, uncomplicated; F10.10 Alcohol abuse, uncomplicated; Y90.0 Blood alcohol level of less than 20 mg/100 ml; F17.210 Nicotine dependence, cigarettes, uncomplicated; Z95.2 Presence of prosthetic heart valve; Z95.0 Presence of cardiac pacemaker; Z79.02 Long term (current) use of antithrombotics/antiplatelets; Z79.01 Long term (current) use of anticoagulants; Z79.899 Other long term (current) drug therapy; Z91.81 History of falling; Y93.9 Activity, unspecified; Y92.039 Unspecified place in apartment as the place of occurrence of the external cause; Y99.9 Unspecified external cause status; Z86.73 Personal history of transient ischemic attack (TIA), and cerebral infarction without residual deficits
CPT/HCPCS: 31500; 36415; 70450; 71045; 80048; 80076; 80307; 81001; 82077; 83735; 85025; 85610; 87635; 94002; 96365; 96366; 96367; 96372; 96375; 99283; 99285; J2405; J3010; J3411

== ENCOUNTER → 2022-04-20 09:36 | Outpatient (BNVA) | payer MEDICAID, SELFPAY | PROVIDERS: PCP Family Medicine; Visit Provider Internal Medicine | DX: M54.16 Radiculopathy, lumbar region (principal); M51.36 Other intervertebral disc degeneration, lumbar region; M48.062 Spinal stenosis, lumbar region with neurogenic claudication | CPT/HCPCS: 20553; 99212; J2795; J3301 ==

== ENCOUNTER 2022-05-11 13:43 | Observation (INO) | payer MEDICAID, SELFPAY ==
--- NOTE | 2022-05-11 | ECG_ITS ---
Test Reason : cx pain Blood Pressure : / mmHG Vent. Rate : 080 BPM Atrial Rate : 080 BPM P-R Int : 152 ms QRS Dur : 194 ms QT Int : 456 ms P-R-T Axes : 049 078 228 degrees QTc Int : 525 ms Atrial-sensed ventricular-paced rhythm Abnormal ECG When compared with ECG of 11-MAY-2022 14:48, Vent. rate has decreased BY 4 BPM Referred By: Generic ED Physician Electronically Signed By:EMILIE LEVY MD
--- NOTE | ~2022-05-11 | XR_ITS ---
EXAMINATION: XR CHEST CLINICAL INFORMATION: Chest pain COMPARISON: Chest x-ray 10/21/2021 TECHNIQUE: Frontal view of the chest was obtained. FINDINGS: Unchanged blunting of the lateral left costophrenic angle which may represent mild pleural thickening or unchanged trace pleural effusion. No airspace consolidation. No pneumothorax. Tortuous descending thoracic aorta. Normal heart size. No evidence of pulmonary edema. Status post median sternotomy with multiple sternal wires. A cardiac valve prosthesis and right-sided dual-chamber pacer with lead tips terminating in the right atrium and right ventricle. Couple of surgical clips project over the left hemithorax. No acute osseous injury. XR/XR chest 1V IMPRESSION: 1. No acute pulmonary process. 2. Unchanged blunting of the lateral left costophrenic angle which may represent mild pleural thickening or trace pleural effusion.
--- NOTE | ~2022-05-11 | CT_ITS ---
EXAMINATION: CT HEAD WITHOUT CONTRAST CLINICAL INFORMATION: Rule out intracranial hemorrhage. History of surgery 7 years ago COMPARISON: Head CT 10/21/2021 TECHNIQUE: Imaging was performed from the skull base to vertex without intravenous administration of contrast. This CT examination was performed using dose optimization techniques as appropriate, variously including the following: *Automated exposure control *Adjustment of mA and/or kV according to patient size (this includes techniques or standardized protocols for targeted exams where dose is matched to indication/reason for exam; i.e. extremities or head) *Use of iterative reconstruction technique Total exam dose length product: 700 mGy-cm FINDINGS: No intra or extra-axial fluid collection, hemorrhage, or mass. No ventriculomegaly. No midline shift or herniation. Basal cisterns are patent. Sequeira-white matter differentiation is maintained. Encephalomalacia in the right temporal lobe at the site of the prior intraparenchymal hemorrhage and smaller area in the anterior left temporal lobe. Proportional prominence of the ventricles and sulcal spaces is consistent with mild volume loss. There is no abnormal attenuation within the brain parenchyma. Status post left parietal craniotomy. No calvarial fracture. Minimal mucosal thickening and chronic hyperostosis of the visualized left maxillary sinus. Visualized paranasal sinuses and mastoid air cells are normally aerated. CT/CT head/brain wo IV con IMPRESSION: 1. No intracranial hemorrhage or other acute intracranial abnormality. 2. Encephalomalacia in the right temporal lobe and smaller area in the left temporal lobe at the site of prior intraparenchymal hemorrhages.
[2022-05-11 14:23] VITALS: BP 137/63; PULSE 60; RESP 18; TEMP 36.8; O2SAT 96; BMI 26.6
--- NOTE | 2022-05-11 14:25 | ECG_ITS ---
Test Reason : CHest pain Blood Pressure : / mmHG Vent. Rate : 084 BPM Atrial Rate : 084 BPM P-R Int : 150 ms QRS Dur : 188 ms QT Int : 452 ms P-R-T Axes : 031 057 214 degrees QTc Int : 534 ms Atrial-sensed ventricular-paced rhythm Abnormal ECG When compared with ECG of 18-OCT-2020 03:09, Vent. rate has decreased BY 18 BPM Referred By: Hero Walker Electronically Signed By:EMILIE LEVY MD
--- NOTE | 2022-05-11 14:31 | ED.GENADULT ---
HPI - General Adult General Chief complaint: Chest Pain <ANA Hudson - Last Filed: 05/11/22 19:36> Stated complaint: High INR brought in by home nurse <ANA Hudson - Last Filed: 05/11/22 19:36> Time Seen by Provider: 05/11/22 18:34 <ANA Hudson - Last Filed: 05/11/22 19:36> Source: patient <Baljinder Joiner MD - Last Filed: 05/11/22 19:32> History of Present Illness HPI narrative: Patient sent in by visiting nurse because of high INR. No bleeding. He is on warfarin chronically. He also complains of diarrhea over the past 5 days. He is having cramping in his hands and his feet. No nausea vomiting. Diarrhea is watery. He states he has been drinking normally. No fevers or chills. No respiratory symptoms. He states he occasionally gets chest pain. It is sharp stabbing and fleeting. No pain right now <Baljinder Joiner MD - Last Filed: 05/11/22 19:32> Related Data Home medications: Home Medications Medication Instructions Recorded Confirmed melatonin 5 mg tablet 2 tab PO BEDTIME PRN insomnia 10/18/20 04/20/22 amlodipine 2.5 mg tablet 2.5 mg PO DAILY 11/18/20 04/20/22 atorvastatin 20 mg tablet 20 mg PO DAILY 11/18/20 04/20/22 blood pressure test kit-large #1 ea 11/18/20 04/20/22 folic acid 1 mg tablet 1 mg PO DAILY 11/18/20 04/20/22 lidocaine 5 % topical patch 1 patch topical DAILY 11/18/20 04/20/22 lisinopril 10 mg tablet 10 mg PO DAILY 11/18/20 04/20/22 magnesium oxide 400 mg (241.3 mg 800 mg PO BID 11/18/20 04/20/22 magnesium) tablet metoprolol succinate 50 mg 50 mg PO DAILY 11/18/20 04/20/22 tablet,extended release 24 hr pantoprazole 40 mg tablet,delayed 40 mg PO BID 11/18/20 04/20/22 release thiamine HCl (vitamin B1) 100 mg 100 mg PO DAILY 11/18/20 04/20/22 tablet zolpidem 10 mg tablet 10 mg PO BEDTIME PRN Sleep 12/02/20 04/20/22 clopidogrel 75 mg tablet 1 tab PO DAILY 10/10/21 04/20/22 olanzapine 5 mg tablet 1 tab PO DAILY 10/10/21 04/20/22 Previous Rx's Medication Instructions Recorded warfarin 5 mg tablet 5 mg PO DAILY #90 tabs 01/16/20 <ANA Hudson - Last Filed: 05/11/22 19:36> Allergies/adverse reactions: Allergies Allergy/AdvReac Type Severity Reaction Status Date / Time lorazepam [From ATIVAN] AdvReac Severe OPPOSITE Verified 04/20/22 09:45 EFFECT PSYCOTIC EFECTS <ANA Hudson - Last Filed: 05/11/22 19:36> Review of Systems Constitutional: Comments: No fevers or chills. Some malaise. <Baljinder Joiner MD - Last Filed: 05/11/22 19:32> Cardiovascular: Comments: Chest pain is described <Baljinder Joiner MD - Last Filed: 05/11/22 19:32> Respiratory: Comments: No respiratory symptoms <Baljinder Joiner MD - Last Filed: 05/11/22 19:32> Gastrointestinal: Comments: Watery diarrhea for the past 5 days. Abdominal cramping. No nausea vomiting. <Baljinder Joiner MD - Last Filed: 05/11/22 19:32> Musculoskeletal: Comments: Peripheral cramping. <Baljinder Joiner MD - Last Filed: 05/11/22 19:32> Integumentary/Breasts: Comments: No new rash <Baljinder Joiner MD - Last Filed: 05/11/22 19:32> Neurologic: Comments: No new focal weakness. <Baljinder Joiner MD - Last Filed: 05/11/22 19:32> [facility] Past Medical History Medical History: Medical History Alcohol abuse Alcoholic liver disease Cocaine abuse Hypertension Pacemaker Short-segment Harrell's esophagus Skull fracture <ANA Hudson - Last Filed: 05/11/22 19:36> Surgical History: Surgical History Aortic valve replaced History of esophagogastroduodenoscopy (EGD) <ANA Hudson - Last Filed: 05/11/22 19:36> Social History Social History: Social History Household Members: None Housing: Apartment Do you presently have visiting nurse or other home services: Yes Alcohol intake: current Alcohol intake frequency: a few times a week Alcohol type: beer Patient Tobacco Use Status: Current everyday Tobacco user Tobacco use type: Cigarette Cigarette Packs Per Day: 0.5 Smoked in Last 30 Days: Yes Second Hand Smoke Exposure: No Use of substances other than those prescribed or required for medical reasons: Yes Substance Use Type: Crack/Cocaine Advance Directives: Yes Advance Directives on File: Yes Advance Directives Date on File: 10/11/21 service: No Current occupational status: disabled <ANA Hudson - Last Filed: 05/11/22 19:36> Physical Exam ED Vital Signs: Vital Signs - 24 hr 05/11/22 14:23 05/11/22 18:31 Temperature 98.3 F Pulse Rate 60 82 Respiratory Rate 18 26 H Blood Pressure 137/63 Pulse Oximetry 96 97 Oxygen Delivery Method Room Air Room Air BMI result Body Mass Index 26.6 <ANA Hudson - Last Filed: 05/11/22 19:36> Vital Signs - 24 hr 05/11/22 14:23 05/11/22 18:31 Temperature 98.3 F Pulse Rate 60 82 Respiratory Rate 18 26 H Blood Pressure 137/63 Pulse Oximetry 96 97 Oxygen Delivery Method Room Air Room Air BMI result Body Mass Index 26.6 <Baljinder Joiner MD - Last Filed: 05/11/22 19:32> Const Other: Awake alert. No acute distress <Baljinder Joiner MD - Last Filed: 05/11/22 19:32> Resp Other: Clear and equal bilaterally without wheezes rales or rhonchi <Baljinder Joiner MD - Last Filed: 05/11/22 19:32> Cardio Other: Regular rate and rhythm without murmurs rubs or gallops <Baljinder Joiner MD - Last Filed: 05/11/22 19:32> GI Other: Soft, nontender, nondistended. Bowel sounds are normal. <Baljinder Joiner MD - Last Filed: 05/11/22 19:32> Skin Other: Warm and dry without rash <Baljinder Joiner MD - Last Filed: 05/11/22 19:32> Neuro Other: Nonfocal neuro exam <Baljinder Joiner MD - Last Filed: 05/11/22 19:32> Course Course Course Narrative: RME: 62 yold male presents to the ED for elevated INR as per nurse who checked his INR at home. patient denies any rectal bleeding/dysuria/vomitting blood/hematuria. patietn also states chest pain for couple of days. patient also states cramping in arms and legs. Upper extremities normal with normal neuro/vascular/motor exam. Lower extremity negative for swelling, pitting edema, calf tenderness, open wounds, or coolness. Lower extremities motor/neuro/vascular exam intact. EKG, labs, coags, CPK, and magnesium ordered. Patient educated on stopping smoking which can cause peripheral vascular disease can cause cramping in lower extremities. <ANA Hudson - Last Filed: 05/11/22 19:36> Medications Administered Generic Name Dose Route Start Last Admin Trade Name Freq PRN Reason Stop Dose Admin Sodium Chloride 1,000 mls @ 999 mls/hr 05/11/22 18:45 05/11/22 18:54 Ns IV 05/11/22 19:45 999 mls/hr .Q1H1M CAMMY Administration Discontinued Medications Generic Name Dose Route Start Last Admin Trade Name Freq PRN Reason Stop Dose Admin Diphenhydramine HCl 25 mg 05/11/22 18:44 05/11/22 18:54 Diphenhydramine Hcl 50 Mg/Ml Vial IVPUSH 05/11/22 18:45 25 mg ONCE ONE Administration Ondansetron HCl 4 mg 05/11/22 18:44 05/11/22 18:54 Ondansetron Hcl 4 Mg/2 Ml Vial IVPUSH 05/11/22 18:45 4 mg ONCE ONE Administration <ANA Hudson - Last Filed: 05/11/22 19:36> Medications Administered Generic Name Dose Route Start Last Admin Trade Name Freq PRN Reason Stop Dose Admin Sodium Chloride 1,000 mls @ 999 mls/hr 05/11/22 18:45 05/11/22 18:54 Ns IV 05/11/22 19:45 999 mls/hr .Q1H1M CAMMY Administration Discontinued Medications Generic Name Dose Route Start Last Admin Trade Name Jessenia PRN Reason Stop Dose Admin Diphenhydramine HCl 25 mg 05/11/22 18:44 05/11/22 18:54 Diphenhydramine Hcl 50 Mg/Ml Vial IVPUSH 05/11/22 18:45 25 mg ONCE ONE Administration Ondansetron HCl 4 mg 05/11/22 18:44 05/11/22 18:54 Ondansetron Hcl 4 Mg/2 Ml Vial IVPUSH 05/11/22 18:45 4 mg ONCE ONE Administration <Baljinder Joiner MD - Last Filed: 05/11/22 19:32> Medical Decision Making Medical Decision Making MDM Narrative: Patient with high INR with a history of intracranial hemorrhage 1 year ago. No headache or signs of bleeding at the moment however. He also has a secondary complaint of diarrhea and cramping. Will check electrolytes as well as INR. 18:58. White count is 11.6 Hemoglobin is 12.2 which is slightly higher than his baseline of 10.3. Chemistries are normal including electrolytes, magnesium, calcium. No evidence of renal failure. No other blood abnormalities to account for or peripheral cramping Will treat with IV fluids, antiemetics, IV Benadryl. No benzodiazepines as patient has an adverse reaction from Ativan. 19:16. Lab report shows his INR is 26. He has no evidence of bleeding at this time fortunately. I will treat him with IV vitamin K. In the meantime will observe. If he shows evidence of bleeding will at that point treat with FFP and Kcentra. <Baljinder Joiner MD - Last Filed: 05/11/22 19:32> Lab Data Result Diagrams: 05/11/22 16:47 05/11/22 16:47 <ANA Hudson - Last Filed: 05/11/22 19:36> Labs: Lab Results 05/11/22 05/11/22 05/11/22 Range/Units 16:47 16:47 16:47 WBC 11.6 H (4.8-10.8) X10*3/uL RBC 4.77 D (4.60-5.80) X10*6/uL Hgb 12.2 L (14.0-18.0) g/dl Hct 37.9 L D (42.0-52.0) % MCV 79.5 L (80.0-98.0) fL MCH 25.6 L (27.0-33.0) pg MCHC 32.2 (31.0-36.0) g/dl RDW 20.2 H (11.0-16.0) % Plt Count 335 (160-400) X10*3/uL MPV 8.4 L (9.4-12.4) fL Immature Gran % (Auto) 0.3 (0.0-0.4) % Neut % (Auto) 74.3 H (45-73) % Lymph % (Auto) 16.4 L (20-40) % Tillman % (Auto) 7.2 (2-11) % Eos % (Auto) 1.4 (0-4) % Baso % (Auto) 0.4 (0-2) % Lymph # (Auto) 1.9 (1.2-4.9) X10*3/uL Tillman # (Auto) 0.8 (0.1-1.2) X10*3/uL Eos # (Auto) 0.2 (0.0-0.4) X10*3/uL Baso # (Auto) 0.1 (0.0-0.2) X10*3/uL Abs Immat Gran (auto) 0.03 (0.00-0.03) X10*3/uL Absolute Neuts (auto) 8.6 H (2.0-8.3) x10*3/uL Absolute Nucleated RBC 0.000 (0.0-0.012) X10*3/uL Nucleated RBC % (auto) 0.0 (0.0-0.2) /100WBC PT (10.0-13.1) SEC INR (0.9-1.1) APTT (26.0-36.4) SEC Sodium 138 (135-145) mmol/L Potassium 4.3 (3.3-5.1) mmol/L Chloride 104 (96-108) mmol/L Carbon Dioxide 25 (22-29) mmol/L Anion Gap 13 (12-20) BUN 9 (9-16) mg/dL Creatinine 0.90 (0.5-1.4) mg/dL Estim Creat Clear Calc 77.7 Estimated GFR > 60 Random Glucose 126 H (60-115) mg/dL Calcium 9.3 (8.4-10.2) mg/dL Magnesium 1.8 (1.6-2.6) mg/dL Total Bilirubin 0.3 (0.0-1.0) mg/dL AST 21 (5-37) U/L ALT 19 (0-40) U/L Alkaline Phosphatase 101 (39-117) U/L Total Creatine Kinase 170 (38-174) U/L Troponin I High Sens 6.5 (<3.5-35.0) ng/L B-Natriuretic Peptide (<100) pg/mL Total Protein 7.9 (6.5-8.0) g/dL Albumin 4.3 (3.5-5.0) g/dL Influenza Type A (PCR) (Negative) Influenza Type B (PCR) (Negative) RSV RNA Qual (PCR) (Negative) SARS-CoV-2 RNA (RT-PCR) (Negative) 05/11/22 05/11/22 05/11/22 Range/Units 16:47 16:47 18:31 WBC (4.8-10.8) X10*3/uL RBC (4.60-5.80) X10*6/uL Hgb (14.0-18.0) g/dl Hct (42.0-52.0) % MCV (80.0-98.0) fL MCH (27.0-33.0) pg MCHC (31.0-36.0) g/dl RDW (11.0-16.0) % Plt Count (160-400) X10*3/uL MPV (9.4-12.4) fL Immature Gran % (Auto) (0.0-0.4) % Neut % (Auto) (45-73) % Lymph % (Auto) (20-40) % Tillman % (Auto) (2-11) % Eos % (Auto) (0-4) % Baso % (Auto) (0-2) % Lymph # (Auto) (1.2-4.9) X10*3/uL Tillman # (Auto) (0.1-1.2) X10*3/uL Eos # (Auto) (0.0-0.4) X10*3/uL Baso # (Auto) (0.0-0.2) X10*3/uL Abs Immat Gran (auto) (0.00-0.03) X10*3/uL Absolute Neuts (auto) (2.0-8.3) x10*3/uL Absolute Nucleated RBC (0.0-0.012) X10*3/uL Nucleated RBC % (auto) (0.0-0.2) /100WBC PT > 320.0 H (10.0-13.1) SEC INR > 26.0 H* D (0.9-1.1) APTT 96.0 H* (26.0-36.4) SEC Sodium (135-145) mmol/L Potassium (3.3-5.1) mmol/L Chloride (96-108) mmol/L Carbon Dioxide (22-29) mmol/L Anion Gap (12-20) BUN (9-16) mg/dL Creatinine (0.5-1.4) mg/dL Estim Creat Clear Calc Estimated GFR Random Glucose (60-115) mg/dL Calcium (8.4-10.2) mg/dL Magnesium (1.6-2.6) mg/dL Total Bilirubin (0.0-1.0) mg/dL AST (5-37) U/L ALT (0-40) U/L Alkaline Phosphatase (39-117) U/L Total Creatine Kinase (38-174) U/L Troponin I High Sens (<3.5-35.0) ng/L B-Natriuretic Peptide 238 H (<100) pg/mL Total Protein (6.5-8.0) g/dL Albumin (3.5-5.0) g/dL Influenza Type A (PCR) NEGATIVE (Negative) Influenza Type B (PCR) NEGATIVE (Negative) RSV RNA Qual (PCR) NEGATIVE (Negative) SARS-CoV-2 RNA (RT-PCR) NEGATIVE (Negative) <ANA Hudson - Last Filed: 05/11/22 19:36> Lab Results 05/11/22 05/11/22 05/11/22 Range/Units 16:47 16:47 16:47 WBC 11.6 H (4.8-10.8) X10*3/uL RBC 4.77 D (4.60-5.80) X10*6/uL Hgb 12.2 L (14.0-18.0) g/dl Hct 37.9 L D (42.0-52.0) % MCV 79.5 L (80.0-98.0) fL MCH 25.6 L (27.0-33.0) pg MCHC 32.2 (31.0-36.0) g/dl RDW 20.2 H (11.0-16.0) % Plt Count 335 (160-400) X10*3/uL MPV 8.4 L (9.4-12.4) fL Immature Gran % (Auto) 0.3 (0.0-0.4) % Neut % (Auto) 74.3 H (45-73) % Lymph % (Auto) 16.4 L (20-40) % Tillman % (Auto) 7.2 (2-11) % Eos % (Auto) 1.4 (0-4) % Baso % (Auto) 0.4 (0-2) % Lymph # (Auto) 1.9 (1.2-4.9) X10*3/uL Tillman # (Auto) 0.8 (0.1-1.2) X10*3/uL Eos # (Auto) 0.2 (0.0-0.4) X10*3/uL Baso # (Auto) 0.1 (0.0-0.2) X10*3/uL Abs Immat Gran (auto) 0.03 (0.00-0.03) X10*3/uL Absolute Neuts (auto) 8.6 H (2.0-8.3) x10*3/uL Absolute Nucleated RBC 0.000 (0.0-0.012) X10*3/uL Nucleated RBC % (auto) 0.0 (0.0-0.2) /100WBC PT (10.0-13.1) SEC INR (0.9-1.1) APTT (26.0-36.4) SEC Sodium 138 (135-145) mmol/L Potassium 4.3 (3.3-5.1) mmol/L Chloride 104 (96-108) mmol/L Carbon Dioxide 25 (22-29) mmol/L Anion Gap 13 (12-20) BUN 9 (9-16) mg/dL Creatinine 0.90 (0.5-1.4) mg/dL Estim Creat Clear Calc 77.7 Estimated GFR > 60 Random Glucose 126 H (60-115) mg/dL Calcium 9.3 (8.4-10.2) mg/dL Magnesium 1.8 (1.6-2.6) mg/dL Total Bilirubin 0.3 (0.0-1.0) mg/dL AST 21 (5-37) U/L ALT 19 (0-40) U/L Alkaline Phosphatase 101 (39-117) U/L Total Creatine Kinase 170 (38-174) U/L Troponin I High Sens 6.5 (<3.5-35.0) ng/L B-Natriuretic Peptide (<100) pg/mL Total Protein 7.9 (6.5-8.0) g/dL Albumin 4.3 (3.5-5.0) g/dL Influenza Type A (PCR) (Negative) Influenza Type B (PCR) (Negative) RSV RNA Qual (PCR) (Negative) SARS-CoV-2 RNA (RT-PCR) (Negative) 05/11/22 05/11/22 05/11/22 Range/Units 16:47 16:47 18:31 WBC (4.8-10.8) X10*3/uL RBC (4.60-5.80) X10*6/uL Hgb (14.0-18.0) g/dl Hct (42.0-52.0) % MCV (80.0-98.0) fL MCH (27.0-33.0) pg MCHC (31.0-36.0) g/dl RDW (11.0-16.0) % Plt Count (160-400) X10*3/uL MPV (9.4-12.4) fL Immature Gran % (Auto) (0.0-0.4) % Neut % (Auto) (45-73) % Lymph % (Auto) (20-40) % Tillman % (Auto) (2-11) % Eos % (Auto) (0-4) % Baso % (Auto) (0-2) % Lymph # (Auto) (1.2-4.9) X10*3/uL Tillman # (Auto) (0.1-1.2) X10*3/uL Eos # (Auto) (0.0-0.4) X10*3/uL Baso # (Auto) (0.0-0.2) X10*3/uL Abs Immat Gran (auto) (0.00-0.03) X10*3/uL Absolute Neuts (auto) (2.0-8.3) x10*3/uL Absolute Nucleated RBC (0.0-0.012) X10*3/uL Nucleated RBC % (auto) (0.0-0.2) /100WBC PT > 320.0 H (10.0-13.1) SEC INR > 26.0 H* D (0.9-1.1) APTT 96.0 H* (26.0-36.4) SEC Sodium (135-145) mmol/L Potassium (3.3-5.1) mmol/L Chloride (96-108) mmol/L Carbon Dioxide (22-29) mmol/L Anion Gap (12-20) BUN (9-16) mg/dL Creatinine (0.5-1.4) mg/dL Estim Creat Clear Calc Estimated GFR Random Glucose (60-115) mg/dL Calcium (8.4-10.2) mg/dL Magnesium (1.6-2.6) mg/dL Total Bilirubin (0.0-1.0) mg/dL AST (5-37) U/L ALT (0-40) U/L Alkaline Phosphatase (39-117) U/L Total Creatine Kinase (38-174) U/L Troponin I High Sens (<3.5-35.0) ng/L B-Natriuretic Peptide 238 H (<100) pg/mL Total Protein (6.5-8.0) g/dL Albumin (3.5-5.0) g/dL Influenza Type A (PCR) NEGATIVE (Negative) Influenza Type B (PCR) NEGATIVE (Negative) RSV RNA Qual (PCR) NEGATIVE (Negative) SARS-CoV-2 RNA (RT-PCR) NEGATIVE (Negative) <Baljinder Joiner MD - Last Filed: 05/11/22 19:32> Discharge Plan Discharge Clinical Impression: Coagulopathy, Warfarin toxicity <ANA Hudson - Last Filed: 05/11/22 19:36> Patient Disposition: Admitted As Inpatient <ANA Hudson - Last Filed: 05/11/22 19:36>
[2022-05-11 16:52] LABS: MANUAL DIFF FLAG NO
[2022-05-11 16:54] LABS: Basophils Absolute Auto 0.1 X10*3/uL (0.0-0.2); Basophils Percent Auto 0.4 % (0-2); Eosinophils Absolute Auto 0.2 X10*3/uL (0.0-0.4); Eosinophils Percent Auto 1.4 % (0-4); Hematocrit 37.9 % (42.0-52.0); Hemoglobin 12.2 g/dl (14.0-18.0); Imm Gran Abs Auto 0.03 X10*3/uL (0.00-0.03); Imm Gran Pct Auto 0.3 % (0.0-0.4); Lymphocytes Absolute Auto 1.9 X10*3/uL (1.2-4.9); Lymphocytes Percent Auto 16.4 % (20-40); Mean Corpuscular HGB Conc 32.2 g/dl (31.0-36.0); Mean Corpuscular Hemoglobin 25.6 pg (27.0-33.0); Mean Corpuscular Volume 79.5 fL (80.0-98.0); Mean Platelet Volume 8.4 fL (9.4-12.4); Monocytes Absolute Auto 0.8 X10*3/uL (0.1-1.2); Monocytes Percent Auto 7.2 % (2-11); Neutrophils Absolute Auto 8.6 x10*3/uL (2.0-8.3); Neutrophils Percent Auto 74.3 % (45-73); Platelet Count 335 X10*3/uL (160-400); Red Blood Count 4.77 X10*6/uL (4.60-5.80); Red Cell Distribution Width 20.2 % (11.0-16.0); White Blood Count 11.6 X10*3/uL (4.8-10.8)
[2022-05-11 17:08] LABS: Alanine Aminotransferase 19 U/L (0-40); Albumin Level 4.3 g/dL (3.5-5.0); Alkaline Phosphatase 101 U/L (39-117); Anion Gap 13 (12-20); Aspartate Amino Transferase 21 U/L (5-37); Bilirubin Total 0.3 mg/dL (0.0-1.0); Blood Urea Nitrogen 9 mg/dL (9-16); Calcium 9.3 mg/dL (8.4-10.2); Carbon Dioxide 25 mmol/L (22-29); Chloride 104 mmol/L (96-108); Creatinine Clr Calc Pharmacy 77.7; Estimated Glomerular Filt Rate > 60; Glucose Random 126 mg/dL (60-115); Magnesium 1.8 mg/dL (1.6-2.6); Potassium 4.3 mmol/L (3.3-5.1); Sodium 138 mmol/L (135-145); Total Protein 7.9 g/dL (6.5-8.0)
[2022-05-11 17:13] LABS: B Type Natriuretic Peptide 238 pg/mL (<100)
[2022-05-11 17:14] LABS: Troponin-I High Sensitivity 6.5 ng/L (<3.5-35.0)
[2022-05-11 17:44] LABS: Influenza A PCR NEGATIVE (Negative); Influenza B PCR NEGATIVE (Negative); Resp Syncy Virus RNA Qual PCR NEGATIVE (Negative); SARS COV2 PCR INHOUSE NEGATIVE (Negative)
[2022-05-11 18:31] VITALS: PULSE 82; RESP 26; O2SAT 97
--- NOTE | 2022-05-11 18:48 | PC.NURSE ---
pt brought back from waiting room, reports 6/10 chest pain radiating to abdomen and both flank sides. Pt reports this pain has been going on for four days now. he also reports arthritic pains in both hands and feet. Pt is normal sinus with atrial pacing on the monitor
[2022-05-11] MEDS: ondansetron HCL 4 MG/2 ML VIAL IVPUSH (18:54)
[2022-05-11] MEDS: diphenhydrAMINE HCL 50 MG/ML VIAL 25 MG IVPUSH (18:54)
[2022-05-11] MEDS: 0.9 % Sodium Chloride 1,000 ML 999 ML IV (18:54)
[2022-05-11 19:14] LABS: INTERNATIONAL NORM RATIO > 26.0 (0.9-1.1); Prothrombin Time > 320.0 SEC (10.0-13.1)
[2022-05-11] MEDS: Phytonadione (Vit K1) 10 MG in 0.9 % Sodium Chloride 50 ML 51 MG IV (19:36)
[2022-05-11 20:01] VITALS: BP 134/91; PULSE 71; RESP 17; O2SAT 94
[2022-05-11 20:04] VITALS: BMI 29.9
[2022-05-11 21:31] VITALS: BP 126/89; PULSE 94; RESP 17; TEMP 36.8; O2SAT 94
--- NOTE | 2022-05-11 21:57 | PHA.MEDREC ---
med rec complete, patient does not know names of medications, states via v belt builder that he gets a medbox and takes them all. List based on pharmacy claim history Pharmacy Consult ? Medication Reconciliation Pharmacy has completed the medication reconciliation.
--- NOTE | 2022-05-11 22:10 | P.HPHOSP_ITS ---
History of Present Illness Date of Service: 05/11/22 Chief Complaint: elevated INR 62-year-old male with past medical history of alcoholic liver disease, cocaine abuse, hypertension, thrombocytopenia, History of intracranial hemorrhage, asthma, various esophagus, aortic valve replacement on Coumadin, presents to the hospital with abnormal INR. Gibraltarian-speaking only, history is obtained with the help of an career agent. Patient reports that his visiting nurse came to check his INR, was found to be too high therefore he was sent to the ER. Patient denies any hematemesis, hemoptysis, no epistaxis, no melena or hematochezia. Denies any headache, change in vision, reports no numbness weakness or tingling. patient reports no chest pain, no shortness of breath, no abdominal pain nausea or vomiting, no diarrhea constipation, no urinary symptoms and no lower extremity edema. He reports constant cramping in his calf area for the past 2 weeks. reports no new medication, no new antibiotic, and takes 5 mg of Coumadin daily with no increased dose. On arrival to the ED patient has a WBC count of 9.6, hemoglobin of 10.3, hematocrit 31.1, INR of more than 26, PT of 320, PTT of 96, labs otherwise unr emarkable. Head CT shows history of encephalomalacia, with no acute intracranial abnormality patient given IV K 10 mg, and Kcentra, with improvement his INR patient will be admitted for observation Review of Systems Review of Systems: Yes all other systems are reviewed and are negative [facility] Medical History Alcohol abuse Alcoholic liver disease Cocaine abuse Hypertension Pacemaker Short-segment Harrell's esophagus Skull fracture Surgical History Aortic valve replaced H/O aortic valve replacement History of esophagogastroduodenoscopy (EGD) Social History Household Members: None Housing: Apartment Do you presently have visiting nurse or other home services: Yes Alcohol intake: current Alcohol intake frequency: a few times a week Alcohol type: beer Patient Tobacco Use Status: Current everyday Tobacco user Tobacco use type: Cigarette Cigarette Packs Per Day: 0.5 Smoked in Last 30 Days: Yes Patient Interested in Nicotine Replacement: No Patient Given Instructions on How to Stop Smoking: Yes Date Education Initiated: 05/12/22 Second Hand Smoke Exposure: Yes Use of substances other than those prescribed or required for medical reasons: Yes Substance Use Type: Crack/Cocaine Advance Directives: Yes Advance Directives on File: Yes Advance Directives Date on File: 10/11/21 Nutrition Risks: No Nutritional Risk service: No Current occupational status: disabled Meds Allergies Allergy/AdvReac Type Severity Reaction Status Date / Time lorazepam [From ATIVAN] AdvReac Severe OPPOSITE Verified 04/20/22 09:45 EFFECT PSYCOTIC EFECTS Home Medications Medication Instructions Recorded Confirmed Last Taken Type melatonin 5 mg tablet 2 tab PO BEDTIME PRN insomnia 10/18/20 05/11/22 Unknown History amlodipine 2.5 mg tablet 2.5 mg PO DAILY 11/18/20 05/11/22 Unknown History atorvastatin 20 mg tablet 20 mg PO DAILY 11/18/20 05/11/22 Unknown History blood pressure test kit-large #1 ea 11/18/20 04/20/22 Unknown History folic acid 1 mg tablet 1 mg PO DAILY 11/18/20 05/11/22 Unknown History lidocaine 5 % topical patch 1 patch topical DAILY 11/18/20 05/11/22 Unknown History lisinopril 10 mg tablet 10 mg PO DAILY 11/18/20 05/11/22 Unknown History magnesium oxide 400 mg (241.3 mg 800 mg PO BID 11/18/20 05/11/22 Unknown History magnesium) tablet metoprolol succinate 50 mg 50 mg PO DAILY 11/18/20 05/11/22 Unknown History tablet,extended release 24 hr pantoprazole 40 mg tablet,delayed 40 mg PO BID 11/18/20 05/11/22 Unknown History release thiamine HCl (vitamin B1) 100 mg 100 mg PO DAILY 11/18/20 05/11/22 Unknown History tablet zolpidem 10 mg tablet 10 mg PO BEDTIME PRN Sleep 12/02/20 05/11/22 10/10/21 History clopidogrel 75 mg tablet 1 tab PO DAILY 10/10/21 05/11/22 Unknown History olanzapine 5 mg tablet 1 tab PO BEDTIME 10/10/21 05/11/22 Unknown History acetaminophen 500 mg tablet 500 mg PO BID PRN Mild Pain (Scale 05/11/22 05/11/22 Unknown History Score 1-4) albuterol sulfate 90 mcg/actuation 2 puff inhalation Q4H PRN 05/11/22 05/11/22 Unknown History aerosol inhaler (Ventolin HFA) Respiratory Distress buspirone 10 mg tablet 10 mg PO TID 05/11/22 05/11/22 Unknown History hydroxyzine pamoate 50 mg capsule 50 mg PO BEDTIME PRN Sleep 05/11/22 05/11/22 Unknown History warfarin 5 mg tablet 5 mg PO DAILY 05/11/22 05/11/22 Unknown History Physical Exam Vital Signs and Narrative: Vital Signs: Last Vital Signs Temp 98.3 F 05/11/22 21:31 Pulse 94 05/11/22 21:31 Resp 17 05/11/22 21:31 BP 126/89 05/11/22 21:31 Pulse Ox 94 05/11/22 21:31 O2 Del Method 05/11/22 21:31 BMI result Body Mass Index 29.9 Const: General: cooperative and no acute distress Orientation/consciousness: patient oriented x3 Eyes: General: appearance normal, both eyes and all related structures Resp: Effort & Inspection: normal respiratory effort Auscultation: clear to auscultation bilaterally Cardio: Rate: regular rate Rhythm: regular rhythm GI: Palpation (GI): Soft to palpation Auscultation: normal bowel sounds Skin: General skin exam: no rashes or lesions noted Neuro: General: patient oriented x3 Cognition (Neuro): normal cognition Extrem: General: Yes normal to inspection and Yes no pedal edema Results Labs 05/11/22 16:47 05/11/22 16:47 Labs: Laboratory Results - last 24 hr 05/11/22 05/11/22 05/11/22 16:47 16:47 16:47 MCV 79.5 L MCH 25.6 L MCHC 32.2 RDW 20.2 H Plt Count 335 MPV 8.4 L Immature Gran % (Auto) 0.3 Neut % (Auto) 74.3 H Lymph % (Auto) 16.4 L Miller % (Auto) 7.2 Eos % (Auto) 1.4 Baso % (Auto) 0.4 Lymph # (Auto) 1.9 Miller # (Auto) 0.8 Eos # (Auto) 0.2 Baso # (Auto) 0.1 Abs Immat Gran (auto) 0.03 Absolute Neuts (auto) 8.6 H Absolute Nucleated RBC 0.000 Nucleated RBC % (auto) 0.0 PT INR APTT Anion Gap 13 Estim Creat Clear Calc 77.7 Estimated GFR > 60 Random Glucose 126 H Calcium 9.3 Magnesium 1.8 Total Bilirubin 0.3 AST 21 ALT 19 Alkaline Phosphatase 101 Total Creatine Kinase 170 Troponin I High Sens 6.5 B-Natriuretic Peptide Total Protein 7.9 Albumin 4.3 Influenza Type A (PCR) Influenza Type B (PCR) RSV RNA Qual (PCR) SARS-CoV-2 RNA (RT-PCR) 05/11/22 05/11/22 05/11/22 16:47 16:47 18:31 MCV MCH MCHC RDW Plt Count MPV Immature Gran % (Auto) Neut % (Auto) Lymph % (Auto) Miller % (Auto) Eos % (Auto) Baso % (Auto) Lymph # (Auto) Miller # (Auto) Eos # (Auto) Baso # (Auto) Abs Immat Gran (auto) Absolute Neuts (auto) Absolute Nucleated RBC Nucleated RBC % (auto) PT > 320.0 H INR > 26.0 H* D APTT 96.0 H* Anion Gap Estim Creat Clear Calc Estimated GFR Random Glucose Calcium Magnesium Total Bilirubin AST ALT Alkaline Phosphatase Total Creatine Kinase Troponin I High Sens B-Natriuretic Peptide 238 H Total Protein Albumin Influenza Type A (PCR) NEGATIVE Influenza Type B (PCR) NEGATIVE RSV RNA Qual (PCR) NEGATIVE SARS-CoV-2 RNA (RT-PCR) NEGATIVE Imaging Radiologist's Impressions: Impressions Chest X-Ray 05/11/22 15:08 IMPRESSION: 1. No acute pulmonary process. 2. Unchanged blunting of the lateral left costophrenic angle which may represent mild pleural thickening or trace pleural effusion. Head CT 05/11/22 19:57 IMPRESSION: 1. No intracranial hemorrhage or other acute intracranial abnormality. 2. Encephalomalacia in the right temporal lobe and smaller area in the left temporal lobe at the site of prior intraparenchymal hemorrhages. Assessment and Plan (1) Coagulopathy: Status: Acute (2) Warfarin toxicity: Status: Acute Plan 62-year-old male with past medical history of aortic valve replacement on Coumadin Presents with elevated INR # coagulopathy/warfarin toxicity /supratherapeutic INR - unclear etiology, likely multifactorial in the setting of liver cirrhosis,patient denies taking more than his scheduled 5 mg daily, he also reports no new medication - patient received 10 mg of IV vitamin K, as well as Kcentra - no evidence of bleed - will follow PT INR # hypertension - stable - continue amlodipine as well as lisinopril # Harrell's esophagus - continue pantoprazole DVT prophylaxis: SCDs Time Spent With Patient Time: Total time managing care of this patient today ____ minutes. Quality Stroke Does the patient have a stroke diagnosis?: No VTE Prior VTE?: No VTE Risk Level:: Medical - moderate - high VTE Device Contraindication: N/A - Device Ordered VTE Drug Contraindication: Treatment Not Indicated
[2022-05-11 22:32] VITALS: BP 131/87; PULSE 79; RESP 19; O2SAT 95
[2022-05-11 22:53] LABS: Magnesium 1.7 mg/dL (1.6-2.6); Phosphorus 3.1 mg/dL (2.7-4.5)
[2022-05-11 23:18] LABS: Prothrombin Time 11.7 SEC (10.0-13.1)
[2022-05-11] MEDS: Cyclobenzaprine HCl 10 MG TABLET PO (23:18)
--- NOTE | 2022-05-12 00:30 | PC.NURSE ---
Pt sleeping at this time, respirations are even and unlabored, no apparent distress. Pt awaiting bed assignment at this time
[2022-05-12 03:37] VITALS: BP 150/76; PULSE 80; RESP 20; TEMP 36.8; O2SAT 92
[2022-05-12 07:27] LABS: Prothrombin Time 11.6 SEC (10.0-13.1)
[2022-05-12 07:37] VITALS: BP 136/72; PULSE 80; RESP 20; TEMP 36.7; O2SAT 96
[2022-05-12 07:40] LABS: Alanine Aminotransferase 17 U/L (0-40); Albumin Level 3.9 g/dL (3.5-5.0); Alkaline Phosphatase 89 U/L (39-117); Anion Gap 16 (12-20); Aspartate Amino Transferase 18 U/L (5-37); Bilirubin Total 1.1 mg/dL (0.0-1.0); Blood Urea Nitrogen 9 mg/dL (9-16); Calcium 9.2 mg/dL (8.4-10.2); Carbon Dioxide 20 mmol/L (22-29); Chloride 106 mmol/L (96-108); Creatinine Clr Calc Pharmacy 101.1; Estimated Glomerular Filt Rate > 60; Glucose Random 88 mg/dL (60-115); Potassium 4.4 mmol/L (3.3-5.1); Sodium 138 mmol/L (135-145); Total Protein 6.8 g/dL (6.5-8.0)
[2022-05-12] MEDS: Acetaminophen 325 MG TABLET 650 MG PO (08:01)
[2022-05-12] MEDS: Thiamine HCL 100 MG TABLET PO (08:02)
[2022-05-12] MEDS: lisinopriL 10 MG TABLET PO (08:02)
[2022-05-12] MEDS: amLODIPine Besylate 2.5 MG TABLET PO (08:02)
[2022-05-12] MEDS: Metoprolol Succinate ER 50 MG TAB.ER.24H PO (08:02)
[2022-05-12] MEDS: Clopidogrel Bisulfate 75 MG TABLET PO (08:03)
[2022-05-12] MEDS: Folic Acid 1 MG TABLET PO (08:03)
[2022-05-12] MEDS: busPIRone HCl 10 MG TABLET PO (08:03)
[2022-05-12] MEDS: Atorvastatin Calcium 20 MG TABLET PO (08:03)
[2022-05-12] MEDS: Magnesium Oxide 400 MG TABLET 800 MG PO (08:03)
[2022-05-12] MEDS: 0.9 % Sodium Chloride Flush 3 ML SYRINGE IVFLUSH (08:03)
--- NOTE | 2022-05-12 09:14 | MHC.CM.PN ---
CM spoke with Patient over the phone with the assist of a Technical Support Coordinator and addressed the MURPHY with him (original given to Patient and a copy has been placed on the chart). Patient lives alone in an apartment and he receives 1 hour/day of [employer] services. Home/resume said services is the goal and CM has initiated and will follow for dc planning. Patient has received Moderna/Covid vax x2 and his PCP is Dr. Nathalie Hsu.
[2022-05-12 10:57] VITALS: BP 129/64; PULSE 73; RESP 20; TEMP 36.5; O2SAT 95
--- NOTE | 2022-05-12 12:07 | P.DS_ITS ---
DS: Providers Provider Date of Service: 05/12/22 Date of admission: 05/11/22 22:07 Primary care physician: Nathalie Hsu MD DS: Diagnosis Discharge Diagnosis (1) Coagulopathy: Status: Deleted (2) Warfarin toxicity: Status: Acute DS: Summary Hospital Course Hospital Course: from initial hpi: Chief Complaint: elevated INR ?62-year-old male with past medical history of alcoholic liver disease, cocaine abuse, hypertension, thrombocytopenia,? History of intracranial hemorrhage, asthma, various esophagus, aortic valve replacement on Coumadin, presents to the hospital with abnormal INR.? ?Namibian-speaking only, history is obtained with the help of an motor vehicle parts interpreter.? Patient reports that his visiting nurse came to check his INR, was found to be too high therefore he was sent to the ER.? Patient denies any hematemesis, hemoptysis, no epistaxis, no melena or hematochezia.? Denies any headache, change in vision, reports no numbness weakness or tingling. ?patient reports no chest pain, no shortness of breath, no abdominal pain nausea or vomiting, no diarrhea constipation, no urinary symptoms and no lower extremity edema.? He reports constant cramping in his calf area for the past 2 weeks.? ?reports no new medication, no new antibiotic, and takes 5 mg of Coumadin daily with no increased dose. On arrival to the ED patient has a WBC count of 9.6, hemoglobin of 10.3, hematocrit 31.1, INR of more than 26,? PT of 320, PTT of 96, labs otherwise unremarkable.? Head CT shows history of encephalomalacia, with no acute intracranial abnormality ?patient given IV K 10 mg,? and Kcentra, with improvement his INR ?patient will be admitted for observation hospital course: Patient was admitted for elevated INR. He received vitamin K and Kcentra as well as ffps and INR return to 1. He had no evidence of bleeding. He will be discharged on Coumadin. He is advised to completely avoid alcohol and to monitor INR closely. For hypertension is continue and amlodipine and lisinopril. For Harrell's esophagus was continued on PPI. For alcohol dependence he is recommended to avoid alcohol. For history of chronic systolic CHF he remained euvolemic. Time Spent with Patient Time attestation: Total time managing care of this patient today ____ minutes. Discharge coordination time: Greater than 30 minutes Quality: Safe Use of Opioids Does Pt have an Active Cancer Diagnosis on the Problem List?: No Quality: Stroke Does the patient have a stroke diagnosis?: No Physical Exam Vital Signs: Vital Signs: Last Vital Signs Temp 97.7 F 05/12/22 10:57 Pulse 73 05/12/22 10:57 Resp 20 05/12/22 10:57 BP 129/64 05/12/22 10:57 Pulse Ox 95 05/12/22 10:57 O2 Del Method 05/12/22 10:57 BMI result Body Mass Index 29.9 DS: Data Data Completed and Pending Completed studies during hospitalization [Text1]: Procedures Detoxification Services for Substance Abuse Treatment (10/18/20) Labs on day of discharge: Laboratory Results - last 24 hr 05/11/22 05/11/22 05/11/22 16:47 16:47 16:47 WBC 11.6 H RBC 4.77 D Hgb 12.2 L Hct 37.9 L D MCV 79.5 L MCH 25.6 L MCHC 32.2 RDW 20.2 H Plt Count 335 MPV 8.4 L Immature Gran % (Auto) 0.3 Neut % (Auto) 74.3 H Lymph % (Auto) 16.4 L Hamilton % (Auto) 7.2 Eos % (Auto) 1.4 Baso % (Auto) 0.4 Lymph # (Auto) 1.9 Hamilton # (Auto) 0.8 Eos # (Auto) 0.2 Baso # (Auto) 0.1 Abs Immat Gran (auto) 0.03 Absolute Neuts (auto) 8.6 H Absolute Nucleated RBC 0.000 Nucleated RBC % (auto) 0.0 PT INR APTT Sodium 138 Potassium 4.3 Chloride 104 Carbon Dioxide 25 Anion Gap 13 BUN 9 Creatinine 0.90 Estim Creat Clear Calc 77.7 Estimated GFR > 60 Random Glucose 126 H Calcium 9.3 Phosphorus Magnesium 1.8 Total Bilirubin 0.3 AST 21 ALT 19 Alkaline Phosphatase 101 Total Creatine Kinase 170 Troponin I High Sens 6.5 B-Natriuretic Peptide Total Protein 7.9 Albumin 4.3 Influenza Type A (PCR) Influenza Type B (PCR) RSV RNA Qual (PCR) SARS-CoV-2 RNA (RT-PCR) 05/11/22 05/11/22 05/11/22 16:47 16:47 18:31 WBC RBC Hgb Hct MCV MCH MCHC RDW Plt Count MPV Immature Gran % (Auto) Neut % (Auto) Lymph % (Auto) Hamilton % (Auto) Eos % (Auto) Baso % (Auto) Lymph # (Auto) Hamilton # (Auto) Eos # (Auto) Baso # (Auto) Abs Immat Gran (auto) Absolute Neuts (auto) Absolute Nucleated RBC Nucleated RBC % (auto) PT > 320.0 H INR > 26.0 H* D APTT 96.0 H* Sodium Potassium Chloride Carbon Dioxide Anion Gap BUN Creatinine Estim Creat Clear Calc Estimated GFR Random Glucose Calcium Phosphorus Magnesium Total Bilirubin AST ALT Alkaline Phosphatase Total Creatine Kinase Troponin I High Sens B-Natriuretic Peptide 238 H Total Protein Albumin Influenza Type A (PCR) NEGATIVE Influenza Type B (PCR) NEGATIVE RSV RNA Qual (PCR) NEGATIVE SARS-CoV-2 RNA (RT-PCR) NEGATIVE 05/11/22 05/11/22 05/12/22 22:26 22:26 06:53 WBC RBC Hgb Hct MCV MCH MCHC RDW Plt Count MPV Immature Gran % (Auto) Neut % (Auto) Lymph % (Auto) Hamilton % (Auto) Eos % (Auto) Baso % (Auto) Lymph # (Auto) Hamilton # (Auto) Eos # (Auto) Baso # (Auto) Abs Immat Gran (auto) Absolute Neuts (auto) Absolute Nucleated RBC Nucleated RBC % (auto) PT 11.7 INR 1.0 D APTT Sodium 138 Potassium 4.4 Chloride 106 Carbon Dioxide 20 L Anion Gap 16 BUN 9 Creatinine 0.78 Estim Creat Clear Calc 101.1 Estimated GFR > 60 Random Glucose 88 Calcium 9.2 Phosphorus 3.1 Magnesium 1.7 Total Bilirubin 1.1 H AST 18 ALT 17 Alkaline Phosphatase 89 Total Creatine Kinase Troponin I High Sens B-Natriuretic Peptide Total Protein 6.8 Albumin 3.9 Influenza Type A (PCR) Influenza Type B (PCR) RSV RNA Qual (PCR) SARS-CoV-2 RNA (RT-PCR) 05/12/22 06:53 WBC RBC Hgb Hct MCV MCH MCHC RDW Plt Count MPV Immature Gran % (Auto) Neut % (Auto) Lymph % (Auto) Hamilton % (Auto) Eos % (Auto) Baso % (Auto) Lymph # (Auto) Hamilton # (Auto) Eos # (Auto) Baso # (Auto) Abs Immat Gran (auto) Absolute Neuts (auto) Absolute Nucleated RBC Nucleated RBC % (auto) PT 11.6 INR 1.0 APTT Sodium Potassium Chloride Carbon Dioxide Anion Gap BUN Creatinine Estim Creat Clear Calc Estimated GFR Random Glucose Calcium Phosphorus Magnesium Total Bilirubin AST ALT Alkaline Phosphatase Total Creatine Kinase Troponin I High Sens B-Natriuretic Peptide Total Protein Albumin Influenza Type A (PCR) Influenza Type B (PCR) RSV RNA Qual (PCR) SARS-CoV-2 RNA (RT-PCR) Discharge Plan Discharge Anticipated Discharge Date/Time: 05/12/22 10:15 Patient Disposition: Home Health Service Discharge Diagnosis: warfarin toxicity Referrals: [facility] [Outside] - 1 Week Nathalie Hsu MD [Primary Care Provider] - 1 Week Discharge Medications: New oxycodone 5 mg tablet 5 mg PO Q8H PRN (Reason: moderate pain (scale score 5-6)) Qty: 14 0RF Rx Instructions: Partial Fill upon patient request. Continued melatonin 5 mg tablet 2 tab PO BEDTIME PRN (Reason: insomnia) clopidogrel 75 mg tablet 1 tab PO DAILY olanzapine 5 mg tablet 1 tab PO BEDTIME hydroxyzine pamoate 50 mg Capsule 50 mg PO BEDTIME PRN (Reason: Sleep) warfarin 5 mg Tablet 5 mg PO DAILY acetaminophen 500 mg Tablet 500 mg PO BID PRN (Reason: Mild Pain (Scale Score 1-4)) buspirone 10 mg Tablet 10 mg PO TID albuterol sulfate [Ventolin HFA] 90 mcg/actuation Hfa Aerosol Inhaler 2 puff INHALATION Q4H PRN (Reason: Respiratory Distress) zolpidem 10 mg tablet 10 mg PO BEDTIME PRN (Reason: Sleep) lisinopril 10 mg tablet 10 mg PO DAILY pantoprazole 40 mg tablet,delayed release (DR/EC) 40 mg PO BID magnesium oxide 400 mg (241.3 mg magnesium) tablet 800 mg PO BID amlodipine 2.5 mg tablet 2.5 mg PO DAILY thiamine HCl (vitamin B1) 100 mg tablet 100 mg PO DAILY metoprolol succinate 50 mg tablet extended release 24 hr 50 mg PO DAILY atorvastatin 20 mg tablet 20 mg PO DAILY (DME) blood pressure test kit-large Kit See Rx Instructions .ROUTE DIRECTED Qty: 1 Rx Instructions: As directed folic acid 1 mg tablet 1 mg PO DAILY lidocaine 5 % adhesive patch,medicated 1 patch topical DAILY Protocol: Apply to: Apply to: AFFECTED AREA Discharge Orders: Discharge Order (Routine); Ordered 05/12/22 Ordered By: Gerardo Marin Diet: Advance to usual diet Activity on Discharge: As tolerated Stand Alone Forms: Patient Portal Discharge page Care Plan Goals: recovery Health Concerns: labile inr Plan of Treatment: complete etoh abstinance, close inr monitoring Assessment: see above Discharge Date/Time: 05/12/22 11:58
--- NOTE | 2022-05-12 12:08 | MHC.CM.PN ---
Patient has been medically cleared for dc to home today with services. Patient states that he does have a Nurse who comes to his house to check his blood but he does not know the name of the VNA. Family is not reachable at numbers listed to inquire if they know the name of the VNA. CM called Patient's PCP who was only able to give the name, Josh. CM spoke to Josh from [facility], who indicated that the active [facility]NA is [facility]. [facility] has let [facility] know of today's dc and dc summary will be sent to [facility] as well.
== END 2022-05-12 11:58 | disposition home health service (06) ==
LOC: HO.ED 19:27 → HO.EDOVER 22:17 → HO.IMC 05-12 02:01
PROVIDERS: Physician Assistant; Admitting Provider Internal Medicine; Emergency Provider Emergency Medicine; PCP Family Medicine; Visit Provider Internal Medicine
DX: D68.9 Coagulation defect, unspecified (principal); T45.515A Adverse effect of anticoagulants, initial encounter; Y92.9 Unspecified place or not applicable; R07.9 Chest pain, unspecified; R19.7 Diarrhea, unspecified; I10 Essential (primary) hypertension; K22.70 Barrett's esophagus without dysplasia; K70.9 Alcoholic liver disease, unspecified; F10.10 Alcohol abuse, uncomplicated; F14.10 Cocaine abuse, uncomplicated; Z95.0 Presence of cardiac pacemaker; Z20.822 Contact with and (suspected) exposure to COVID-19
CPT/HCPCS: 0241U; 36415; 70450; 71045; 80053; 82550; 83735; 83880; 84100; 84484; 85025; 85610; 85730; 93005; 96361; 96365; 96367; 96375; 99222; 99285; J1200; J2405; J3430; J7168

== ENCOUNTER → 2022-06-12 08:40 | Outpatient (BNVA) | payer MEDICAID, SELFPAY | PROVIDERS: PCP Family Medicine; Visit Provider Internal Medicine | DX: M54.16 Radiculopathy, lumbar region (principal); M79.18 Myalgia, other site | CPT/HCPCS: 20553; 99212 ==

== ENCOUNTER 2022-08-05 06:02 | Outpatient (REF) | payer MEDICAID, SELFPAY | END 2022-08-05 06:03 | disposition home or self-care (01) | LOC: CF 06:02 | PROVIDERS: Visit Provider Internal Medicine | DX: Z13.89 Encounter for screening for other disorder (principal) ==

== ENCOUNTER 2022-09-09 06:15 | Outpatient (REF) | payer MEDICAID, SELFPAY ==
--- NOTE | ~2022-09-09 | FL_ITS ---
EXAMINATION: XR FLUOROSCOPY WITH IMAGES CLINICAL INFORMATION: Radiculopathy, lumbar region. COMPARISON: None available. TECHNIQUE: Fluoroscopy Supervised By: Dr. Vega. Fluoroscopy Time: 0.2 minutes. Cumulative Dose: 4.17 mGy. DAP: 0.657 Gycm2. Images: 3. FINDINGS: Images demonstrate needle placement over the lower sacrum and contrast in the epidural space. FL/FL guidance in treatment room IMPRESSION: Fluoroscopy guidance for pain management procedure.
== END 2022-09-09 06:16 | disposition home or self-care (01) ==
LOC: CF 06:15
PROVIDERS: Visit Provider Internal Medicine
DX: M54.16 Radiculopathy, lumbar region (principal)
CPT/HCPCS: 62323; J1040

== ENCOUNTER 2022-09-28 11:26 | Emergency (ER) | payer MEDICAID, SELFPAY ==
--- NOTE | ~2022-09-28 | XR_ITS ---
EXAMINATION: XR CHEST CLINICAL INFORMATION: Chest pain COMPARISON: None available. TECHNIQUE: 2 views of the chest were obtained. FINDINGS: The lungs are well-expanded and clear of acute process. The heart size and pulmonary vascularity is normal. There is aortic cardiac valve prosthesis. There are dual pacer electrodes in right atrium and right ventricle. There are median sternotomy sutures as well. No gross bony abnormality seen. XR/XR chest 2V IMPRESSION: Unremarkable chest exam
--- NOTE | 2022-09-28 12:12 | ECG_ITS ---
Test Reason : cp Blood Pressure : / mmHG Vent. Rate : 090 BPM Atrial Rate : 090 BPM P-R Int : 162 ms QRS Dur : 184 ms QT Int : 428 ms P-R-T Axes : -19 079 -84 degrees QTc Int : 523 ms Atrial-sensed ventricular-paced rhythm Abnormal ECG When compared with ECG of 11-MAY-2022 18:37, Vent. rate has increased BY 10 BPM Referred By: Johnna Fairchild Electronically Signed By:YENIFER JJ
--- NOTE | 2022-09-28 12:14 | ED.GENADULT ---
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 No fever. Additionally he reports cramping/numbness to his fingers/ toes for the last few months, was evaluated at [facility] for this. Related Data Home Medications Medication Instructions Recorded Confirmed melatonin 5 mg tablet 2 tab PO BEDTIME PRN insomnia 10/18/20 06/04/22 amlodipine 2.5 mg tablet 2.5 mg PO DAILY 11/18/20 06/04/22 atorvastatin 20 mg tablet 20 mg PO DAILY 11/18/20 06/04/22 blood pressure test kit-large #1 ea 11/18/20 06/04/22 folic acid 1 mg tablet 1 mg PO DAILY 11/18/20 06/04/22 lidocaine 5 % topical patch 1 patch topical DAILY 11/18/20 06/04/22 lisinopril 10 mg tablet 10 mg PO DAILY 11/18/20 06/04/22 magnesium oxide 400 mg (241.3 mg 800 mg PO BID 11/18/20 06/04/22 magnesium) tablet metoprolol succinate 50 mg 50 mg PO DAILY 11/18/20 06/04/22 tablet,extended release 24 hr pantoprazole 40 mg tablet,delayed 40 mg PO BID 11/18/20 06/04/22 release thiamine HCl (vitamin B1) 100 mg 100 mg PO DAILY 11/18/20 06/04/22 tablet zolpidem 10 mg tablet 10 mg PO BEDTIME PRN Sleep 12/02/20 06/04/22 clopidogrel 75 mg tablet 1 tab PO DAILY 10/10/21 06/04/22 olanzapine 5 mg tablet 1 tab PO BEDTIME 10/10/21 06/04/22 acetaminophen 500 mg tablet 500 mg PO BID PRN Mild Pain (Scale 05/11/22 06/04/22 Score 1-4) albuterol sulfate 90 mcg/actuation 2 puff inhalation Q4H PRN 05/11/22 06/04/22 aerosol inhaler (Ventolin HFA) Respiratory Distress buspirone 10 mg tablet 10 mg PO TID 05/11/22 06/04/22 hydroxyzine pamoate 50 mg capsule 50 mg PO BEDTIME PRN Sleep 05/11/22 06/04/22 warfarin 5 mg tablet 5 mg PO DAILY 05/11/22 06/04/22 enoxaparin 60 mg/0.6 mL mg subcut BID 06/12/22 subcutaneous syringe sacubitril 24 mg-valsartan 26 mg 1 tab PO 06/12/22 tablet (Entresto) Previous Rx's Medication Instructions Recorded oxycodone 5 mg tablet 5 mg PO Q8H PRN moderate pain 05/12/22 (scale score 5-6) #14 tabs pantoprazole 40 mg tablet,delayed 40 mg PO DAILY #20 tabs 09/28/22 release (Protonix) Allergies Allergy/AdvReac Type Severity Reaction Status Date / Time lorazepam [From ATIVAN] AdvReac Severe OPPOSITE Verified 09/28/22 12:20 EFFECT PSYCOTIC EFECTS Review of Systems Review of Systems: Yes all other systems are reviewed and are negative PMFSH Past Medical History Medical History Alcohol abuse Alcoholic liver disease Chronic systolic CHF (congestive heart failure) Cocaine abuse Coronary artery disease Hypertension Intracranial hemorrhage Pacemaker Short-segment Harrell's esophagus Skull fracture Surgical History Aortic valve replaced H/O aortic valve replacement History of esophagogastroduodenoscopy (EGD) S/P CABG (coronary artery bypass graft) Social History Social History Household Members: None Housing: Apartment Do you presently have visiting nurse or other home services: Yes Alcohol intake: current Alcohol intake frequency: a few times a week Alcohol type: beer Patient Tobacco Use Status: Current everyday Tobacco user Tobacco use type: Cigarette Cigarette Packs Per Day: 0.5 Smoked in Last 30 Days: Yes Second Hand Smoke Exposure: Yes Use of substances other than those prescribed or required for medical reasons: Yes Substance Use Type: Marijuana Advance Directives: Yes Advance Directives on File: Yes Advance Directives Date on File: 10/11/21 service: No Current occupational status: unemployed Physical Exam ED Vital Signs: Vital Signs - 24 hr 09/28/22 12:15 09/28/22 12:55 09/28/22 14:04 Temperature Pulse Rate 90 81 72 Respiratory Rate 20 16 15 Blood Pressure 96/56 L 94/55 L 108/63 Pulse Oximetry 98 97 98 Oxygen Delivery Method Room Air Room Air Room Air 09/28/22 14:47 09/28/22 15:36 Temperature 98.2 F Pulse Rate 79 76 Respiratory Rate 18 16 Blood Pressure 115/65 108/57 L Pulse Oximetry 98 96 Oxygen Delivery Method Room Air Room Air BMI result Body Mass Index 33.8 Const General: no acute distress Nutritional Appearance: average body habitus Orientation/consciousness: oriented to person and patient oriented x3 Limitations: no limitations HENMT Head: Yes normal to inspection Ears: external ears normal General nose exam: Normal external nose present Mouth: Normal oral and palatal mucosa present and oropharynx normal Throat: Yes posterior oropharynx normal Eyes General: appearance normal, both eyes and all related structures Neck Neck: Yes normal visual inspection Chest Chest palpation & inspection: normal inspection of the chest Resp Auscultation: clear to auscultation bilaterally Cardio Jugular venous distension: no JVD Rate: regular rate Rhythm: regular rhythm Heart sounds: S1 normal heart sound present and S2 normal heart sound present GI Inspection: Yes normal to inspection Palpation (GI): Soft to palpation, nontender and No hepatosplenomegaly present Auscultation: normal bowel sounds General: Yes no CVA tenderness Back/Spine/Pelvis Back: no CVA tenderness Skin General skin exam: no rashes or lesions noted Neuro General: oriented to person and patient oriented x3 Cranial nerves: Yes CN's II-XII intact bilaterally Motor exam (neuro): 5/5 motor strength present throughout Extrem General: Yes normal to inspection Psych Appearance: grossly normal Course Course Course Narrative: RME - 62 yo Ukrainian speaking male with history of ETOH liver disease, CAD, 3rd degree heart block, CHF who presents to the ER from home via EMS for evaluation of N/V/D, abdominal pain and chest pain for the last 2 days after eating hamburgers on 09/25. He also reports severe cramping in his hands, legs and feet. Pain in the chest is across the entire chest and started after vomiting. Radiates to the bilateral arms and jaw at times. BP 90/50s in triage Plan: IVF, labs, EKG, CXR Medications Administered Discontinued Medications Generic Name Dose Route Start Last Admin Trade Name Jessenia PRN Reason Stop Dose Admin Acetaminophen 975 mg 09/28/22 13:26 09/28/22 13:38 Acetaminophen 325 Mg Tablet PO 09/28/22 13:27 975 mg ONCE ONE Administration Al Hydroxide/Mg Hydroxide 30 ml 09/28/22 15:05 09/28/22 15:36 Magnesium Hydrox/Alum Hydrox 30 Ml Oral.Susp PO 09/28/22 15:06 30 ml ONCE ONE Administration Belladonna Alkaloids/Phenobarbital 10 ml 09/28/22 15:05 09/28/22 15:35 Phenobarb/Hyoscy/Atropine/Scop 10 Ml Elixir PO 09/28/22 15:06 10 ml ONCE ONE Administration Sodium Chloride 1,000 mls @ 999 mls/hr 09/28/22 12:30 09/28/22 15:36 Ns IVCONT 09/28/22 13:30 Infused .Q1H1M CAMMY Infusion Lidocaine HCl 15 ml 09/28/22 15:05 09/28/22 15:36 Lidocaine Hcl Viscous 2 % 15 Ml Solution MUCOUS MEM 09/28/22 15:06 15 ml ONCE ONE Administration Pantoprazole Sodium 40 mg 09/28/22 13:24 09/28/22 13:38 Pantoprazole Sodium 40 Mg/10 Ml Vial IVPUSH 09/28/22 13:25 40 mg ONCE ONE Administration Medical Decision Making Differential Diagnosis Differential Diagnoses: The differential diagnosis associated with the presentation includes (liver failure, pancreatitis, CAD, CHF, food poisoning, gastroenteritis were all considered. ) Admission/Observation Consideration of admission/observation: Escalation of care including admission/observation considered (Upon arrival, this 62 yo with known cardiac disease with pacemaker, cirrhosis, CHF was considered for admission.) Lab Data MDM Lab Attestation statement: I reviewed the patient's lab results. (Significant for coagulation abnormalities, hyponatremia) 09/28/22 12:29 09/28/22 12:29 Labs: Lab Results 09/28/22 09/28/22 09/28/22 Range/Units 12:29 12:29 12:29 WBC 9.2 (4.8-10.8) X10*3/uL RBC 4.71 (4.60-5.80) X10*6/uL Hgb 13.0 L (14.0-18.0) g/dl Hct 39.7 L (42.0-52.0) % MCV 84.3 (80.0-98.0) fL MCH 27.6 (27.0-33.0) pg MCHC 32.7 (31.0-36.0) g/dl RDW 18.4 H (11.0-16.0) % Plt Count 377 (160-400) X10*3/uL MPV 8.8 L (9.4-12.4) fL Immature Gran % (Auto) 0.4 (0.0-0.4) % Neut % (Auto) 70.5 (45-73) % Lymph % (Auto) 18.2 L (20-40) % [place] % (Auto) 9.6 (2-11) % Eos % (Auto) 0.8 (0-4) % Baso % (Auto) 0.5 (0-2) % Lymph # (Auto) 1.7 (1.2-4.9) X10*3/uL [place] # (Auto) 0.9 (0.1-1.2) X10*3/uL Eos # (Auto) 0.1 (0.0-0.4) X10*3/uL Baso # (Auto) 0.1 (0.0-0.2) X10*3/uL Abs Immat Gran (auto) 0.04 H (0.00-0.03) X10*3/uL Absolute Neuts (auto) 6.5 (2.0-8.3) x10*3/uL Absolute Nucleated RBC 0.000 (0.0-0.012) X10*3/uL Nucleated RBC % (auto) 0.0 (0.0-0.2) /100WBC PT 28.2 H (10.0-13.1) SEC INR 2.4 H (0.9-1.1) APTT 56.1 H D (26.0-36.4) SEC Sodium 133 L (135-145) mmol/L Potassium 4.3 (3.3-5.1) mmol/L Chloride 102 (96-108) mmol/L Carbon Dioxide 23 (22-29) mmol/L Anion Gap 12 (12-20) BUN 14 (9-16) mg/dL Creatinine 1.35 (0.5-1.4) mg/dL Estim Creat Clear Calc 53.9 Estimated GFR 54 Random Glucose 121 H (60-115) mg/dL Calcium 9.5 (8.4-10.2) mg/dL Magnesium 1.7 (1.6-2.6) mg/dL Total Bilirubin 0.6 (0.0-1.0) mg/dL Direct Bilirubin 0.2 (0.0-0.5) mg/dL AST 19 (5-37) U/L ALT 20 (0-40) U/L Alkaline Phosphatase 88 (39-117) U/L Troponin I High Sens (<3.5-35.0) ng/L B-Natriuretic Peptide (<100) pg/mL Total Protein 7.6 (6.5-8.0) g/dL Albumin 4.3 (3.5-5.0) g/dL Lipase 19 (8-78) U/L Urine Color Urine Appearance Urine pH (5.0-9.0) Ur Specific Mcintosh (1.005-1.025) Urine Protein (Neg-Trace) mg/dL Urine Glucose (UA) (Negative) mg/dL Urine Ketones (Negative) mg/dL Urine Blood (Negative) Urine Nitrite (Negative) Ur Leukocyte Esterase (Negative) Urine RBC (0-2) /HPF Urine WBC (0-5) /HPF Ur Squamous Epith Cells (0-2) /HPF Urine Bacteria (None Seen) Hyaline Casts (0-2) /LPF Urine Opiates Screen (Not Detect) Urine Fentanyl Screen (Not Detect) Ur Barbiturates Screen (Not Detect) Ur Phencyclidine Scrn (Not Detect) Ur Amphetamines Screen (Not Detect) U Benzodiazepines Scrn (Not Detect) Urine Cocaine Screen (Not Detect) U Marijuana (THC) Screen (Not Detect) Ethyl Alcohol mg/dL 09/28/22 09/28/22 09/28/22 Range/Units 12:29 12:29 12:29 WBC (4.8-10.8) X10*3/uL RBC (4.60-5.80) X10*6/uL Hgb (14.0-18.0) g/dl Hct (42.0-52.0) % MCV (80.0-98.0) fL MCH (27.0-33.0) pg MCHC (31.0-36.0) g/dl RDW (11.0-16.0) % Plt Count (160-400) X10*3/uL MPV (9.4-12.4) fL Immature Gran % (Auto) (0.0-0.4) % Neut % (Auto) (45-73) % Lymph % (Auto) (20-40) % [place] % (Auto) (2-11) % Eos % (Auto) (0-4) % Baso % (Auto) (0-2) % Lymph # (Auto) (1.2-4.9) X10*3/uL [place] # (Auto) (0.1-1.2) X10*3/uL Eos # (Auto) (0.0-0.4) X10*3/uL Baso # (Auto) (0.0-0.2) X10*3/uL Abs Immat Gran (auto) (0.00-0.03) X10*3/uL Absolute Neuts (auto) (2.0-8.3) x10*3/uL Absolute Nucleated RBC (0.0-0.012) X10*3/uL Nucleated RBC % (auto) (0.0-0.2) /100WBC PT (10.0-13.1) SEC INR (0.9-1.1) APTT (26.0-36.4) SEC Sodium (135-145) mmol/L Potassium (3.3-5.1) mmol/L Chloride (96-108) mmol/L Carbon Dioxide (22-29) mmol/L Anion Gap (12-20) BUN (9-16) mg/dL Creatinine (0.5-1.4) mg/dL Estim Creat Clear Calc Estimated GFR Random Glucose (60-115) mg/dL Calcium (8.4-10.2) mg/dL Magnesium (1.6-2.6) mg/dL Total Bilirubin (0.0-1.0) mg/dL Direct Bilirubin (0.0-0.5) mg/dL AST (5-37) U/L ALT (0-40) U/L Alkaline Phosphatase (39-117) U/L Troponin I High Sens 3.7 (<3.5-35.0) ng/L B-Natriuretic Peptide 90 (<100) pg/mL Total Protein (6.5-8.0) g/dL Albumin (3.5-5.0) g/dL Lipase (8-78) U/L Urine Color Urine Appearance Urine pH (5.0-9.0) Ur Specific Mcintosh (1.005-1.025) Urine Protein (Neg-Trace) mg/dL Urine Glucose (UA) (Negative) mg/dL Urine Ketones (Negative) mg/dL Urine Blood (Negative) Urine Nitrite (Negative) Ur Leukocyte Esterase (Negative) Urine RBC (0-2) /HPF Urine WBC (0-5) /HPF Ur Squamous Epith Cells (0-2) /HPF Urine Bacteria (None Seen) Hyaline Casts (0-2) /LPF Urine Opiates Screen (Not Detect) Urine Fentanyl Screen (Not Detect) Ur Barbiturates Screen (Not Detect) Ur Phencyclidine Scrn (Not Detect) Ur Amphetamines Screen (Not Detect) U Benzodiazepines Scrn (Not Detect) Urine Cocaine Screen (Not Detect) U Marijuana (THC) Screen (Not Detect) Ethyl Alcohol < 10 mg/dL 09/28/22 09/28/22 Range/Units 13:12 13:12 WBC (4.8-10.8) X10*3/uL RBC (4.60-5.80) X10*6/uL Hgb (14.0-18.0) g/dl Hct (42.0-52.0) % MCV (80.0-98.0) fL MCH (27.0-33.0) pg MCHC (31.0-36.0) g/dl RDW (11.0-16.0) % Plt Count (160-400) X10*3/uL MPV (9.4-12.4) fL Immature Gran % (Auto) (0.0-0.4) % Neut % (Auto) (45-73) % Lymph % (Auto) (20-40) % [place] % (Auto) (2-11) % Eos % (Auto) (0-4) % Baso % (Auto) (0-2) % Lymph # (Auto) (1.2-4.9) X10*3/uL [place] # (Auto) (0.1-1.2) X10*3/uL Eos # (Auto) (0.0-0.4) X10*3/uL Baso # (Auto) (0.0-0.2) X10*3/uL Abs Immat Gran (auto) (0.00-0.03) X10*3/uL Absolute Neuts (auto) (2.0-8.3) x10*3/uL Absolute Nucleated RBC (0.0-0.012) X10*3/uL Nucleated RBC % (auto) (0.0-0.2) /100WBC PT (10.0-13.1) SEC INR (0.9-1.1) APTT (26.0-36.4) SEC Sodium (135-145) mmol/L Potassium (3.3-5.1) mmol/L Chloride (96-108) mmol/L Carbon Dioxide (22-29) mmol/L Anion Gap (12-20) BUN (9-16) mg/dL Creatinine (0.5-1.4) mg/dL Estim Creat Clear Calc Estimated GFR Random Glucose (60-115) mg/dL Calcium (8.4-10.2) mg/dL Magnesium (1.6-2.6) mg/dL Total Bilirubin (0.0-1.0) mg/dL Direct Bilirubin (0.0-0.5) mg/dL AST (5-37) U/L ALT (0-40) U/L Alkaline Phosphatase (39-117) U/L Troponin I High Sens (<3.5-35.0) ng/L B-Natriuretic Peptide (<100) pg/mL Total Protein (6.5-8.0) g/dL Albumin (3.5-5.0) g/dL Lipase (8-78) U/L Urine Color Dark Yellow Urine Appearance Cloudy Urine pH 5.0 (5.0-9.0) Ur Specific Mcintosh >= 1.030 H (1.005-1.025) Urine Protein 30 (1+) H (Neg-Trace) mg/dL Urine Glucose (UA) Negative (Negative) mg/dL Urine Ketones Trace (Negative) mg/dL Urine Blood Negative (Negative) Urine Nitrite Negative (Negative) Ur Leukocyte Esterase Trace H (Negative) Urine RBC 0-2 (0-2) /HPF Urine WBC 0-5 (0-5) /HPF Ur Squamous Epith Cells 11-20 (0-2) /HPF Urine Bacteria None Seen (None Seen) Hyaline Casts 6-10 (0-2) /LPF Urine Opiates Screen Not Detected (Not Detect) Urine Fentanyl Screen Not Detected (Not Detect) Ur Barbiturates Screen Not Detected (Not Detect) Ur Phencyclidine Scrn Not Detected (Not Detect) Ur Amphetamines Screen Not Detected (Not Detect) U Benzodiazepines Scrn Not Detected (Not Detect) Urine Cocaine Screen Not Detected (Not Detect) U Marijuana (THC) Screen Not Detected (Not Detect) Ethyl Alcohol mg/dL Independent Interpretation I performed an independent interpretation of an: EKG (Sinus 90 bpm, ventricular paced, no acute ST or T wave changes.) and Plain X-Ray (CXR: no CHF, possible blunting of the left costophrenic angle) Radiology Impression Discussion of test interpretation with radiology: I have reviewed the radiologist's reading. Tests considered The following testing was considered but not selected: Considered CT of abd/pelvis but patient's abd exam was soft, nonfocal. No fever. No white count. Chronic Conditions Patient?s care impacted by: Other (CAD, CHF, liver cirrhosis) Social Determinants Patient?s care significantly limited by Social Determinants of Health including: Alcoholism and drug addiction in family Discharge Plan Discharge Clinical Impression: Gastroenteritis Patient Disposition: Home, Self-Care Instructions: Gastroenteritis (ED) Prescriptions: New pantoprazole [Protonix] 40 mg tablet,delayed release (DR/EC) 40 mg PO DAILY Qty: 20 0RF No Action melatonin 5 mg tablet 2 tab PO BEDTIME PRN (Reason: insomnia) clopidogrel 75 mg tablet 1 tab PO DAILY olanzapine 5 mg tablet 1 tab PO BEDTIME hydroxyzine pamoate 50 mg Capsule 50 mg PO BEDTIME PRN (Reason: Sleep) warfarin 5 mg Tablet 5 mg PO DAILY acetaminophen 500 mg Tablet 500 mg PO BID PRN (Reason: Mild Pain (Scale Score 1-4)) buspirone 10 mg Tablet 10 mg PO TID albuterol sulfate [Ventolin HFA] 90 mcg/actuation Hfa Aerosol Inhaler 2 puff INHALATION Q4H PRN (Reason: Respiratory Distress) oxycodone 5 mg tablet 5 mg PO Q8H PRN (Reason: moderate pain (scale score 5-6)) Qty: 14 0RF Rx Instructions: Partial Fill upon patient request. zolpidem 10 mg tablet 10 mg PO BEDTIME PRN (Reason: Sleep) lisinopril 10 mg tablet 10 mg PO DAILY pantoprazole 40 mg tablet,delayed release (DR/EC) 40 mg PO BID magnesium oxide 400 mg (241.3 mg magnesium) tablet 800 mg PO BID amlodipine 2.5 mg tablet 2.5 mg PO DAILY thiamine HCl (vitamin B1) 100 mg tablet 100 mg PO DAILY metoprolol succinate 50 mg tablet extended release 24 hr 50 mg PO DAILY atorvastatin 20 mg tablet 20 mg PO DAILY (DME) blood pressure test kit-large Kit See Rx Instructions .ROUTE DIRECTED Qty: 1 Rx Instructions: As directed folic acid 1 mg tablet 1 mg PO DAILY lidocaine 5 % adhesive patch,medicated 1 patch topical DAILY Protocol: Apply to: Apply to: AFFECTED AREA Entresto 24-26 mg tablet 1 tab PO enoxaparin 60 mg/0.6 mL syringe subcut BID Referrals: [facility] [Primary Care Provider] - 5 days
[2022-09-28 12:15] VITALS: BP 96/56; PULSE 90; RESP 20; O2SAT 98; BMI 33.8
[2022-09-28 12:39] LABS: MANUAL DIFF FLAG NO
[2022-09-28 12:40] LABS: Basophils Absolute Auto 0.1 X10*3/uL (0.0-0.2); Basophils Percent Auto 0.5 % (0-2); Eosinophils Absolute Auto 0.1 X10*3/uL (0.0-0.4); Eosinophils Percent Auto 0.8 % (0-4); Hematocrit 39.7 % (42.0-52.0); Imm Gran Abs Auto 0.04 X10*3/uL (0.00-0.03); Imm Gran Pct Auto 0.4 % (0.0-0.4); Lymphocytes Absolute Auto 1.7 X10*3/uL (1.2-4.9); Lymphocytes Percent Auto 18.2 % (20-40); Mean Corpuscular HGB Conc 32.7 g/dl (31.0-36.0); Mean Corpuscular Hemoglobin 27.6 pg (27.0-33.0); Mean Corpuscular Volume 84.3 fL (80.0-98.0); Mean Platelet Volume 8.8 fL (9.4-12.4); Monocytes Absolute Auto 0.9 X10*3/uL (0.1-1.2); Monocytes Percent Auto 9.6 % (2-11); Neutrophils Absolute Auto 6.5 x10*3/uL (2.0-8.3); Neutrophils Percent Auto 70.5 % (45-73); Platelet Count 377 X10*3/uL (160-400); Red Blood Count 4.71 X10*6/uL (4.60-5.80); Red Cell Distribution Width 18.4 % (11.0-16.0); White Blood Count 9.2 X10*3/uL (4.8-10.8)
[2022-09-28 12:45] LABS: INTERNATIONAL NORM RATIO 2.4 (0.9-1.1); Prothrombin Time 28.2 SEC (10.0-13.1)
[2022-09-28 12:48] LABS: Partial Thromboplastin Time 56.1 SEC (26.0-36.4)
[2022-09-28 12:55] VITALS: BP 94/55; PULSE 81; RESP 16; O2SAT 97
[2022-09-28 12:55] LABS: Alanine Aminotransferase 20 U/L (0-40); Albumin Level 4.3 g/dL (3.5-5.0); Alkaline Phosphatase 88 U/L (39-117); Anion Gap 12 (12-20); Aspartate Amino Transferase 19 U/L (5-37); Bilirubin Direct 0.2 mg/dL (0.0-0.5); Bilirubin Total 0.6 mg/dL (0.0-1.0); Blood Urea Nitrogen 14 mg/dL (9-16); Calcium 9.5 mg/dL (8.4-10.2); Carbon Dioxide 23 mmol/L (22-29); Chloride 102 mmol/L (96-108); Creatinine Clr Calc Pharmacy 53.9; Estimated Glomerular Filt Rate 54; Glucose Random 121 mg/dL (60-115); Magnesium 1.7 mg/dL (1.6-2.6); Potassium 4.3 mmol/L (3.3-5.1); Sodium 133 mmol/L (135-145); Total Protein 7.6 g/dL (6.5-8.0)
[2022-09-28 12:56] LABS: Ethanol < 10 mg/dL
[2022-09-28] MEDS: 0.9 % Sodium Chloride 1,000 ML 999 ML IVCONT (12:58)
[2022-09-28 13:00] LABS: B Type Natriuretic Peptide 90 pg/mL (<100)
[2022-09-28 13:02] LABS: Troponin-I High Sensitivity 3.7 ng/L (<3.5-35.0)
[2022-09-28 13:06] LABS: Lipase 19 U/L (8-78)
[2022-09-28 13:20] LABS: Appearance Urine Cloudy; Color Urine Dark Yellow; Glucose Urine UA Negative (Negative); Leukocyte Esterase Urine Trace (Negative); Nitrite Urine Negative (Negative); Specific Gravity - Urine >= 1.030 (1.005-1.025); UMIC TRIGGER UACC YES; Urine Blood Negative (Negative); Urine Ketones Trace mg/dL (Negative); Urine Protein 30 (1+) mg/dL (Neg-Trace)
--- NOTE | 2022-09-28 13:21 | PC.NURSE ---
Alert and oriented, mostly chilean speaking. Via foreign language interpreter states that on wednesday he ate two hamburgers and felt sick the next day. When mathematical scientist checked expiration date the meat was two years . States has had nausea, vomiting, and diarrhea ever since. States abdominal and chest pain. nsr on monitor. States has had pain in lower legs for months that feels like a cramp. Strong pedal pulses bilat.
[2022-09-28 13:30] LABS: Bacteria Urine None Seen (None Seen); RBC Urine 0-2 /HPF (0-2); WBC Urine 0-5 /HPF (0-5)
[2022-09-28 13:33] LABS: Amphetamine Screen Urine Not Detected (Not Detect); Barbiturates, Urine Not Detected (Not Detect); Benzodiazepines Screen Urine Not Detected (Not Detect); Cannabinoid Screen Urine Not Detected (Not Detect); Cocaine Screen Urine Not Detected (Not Detect); Fentanyl, urine Not Detected (Not Detect); Opiate Screen Urine Not Detected (Not Detect); Phencyclidine Screen Urine Not Detected (Not Detect)
[2022-09-28] MEDS: Pantoprazole Sodium 40 MG/10 ML VIAL IVPUSH (13:38)
[2022-09-28] MEDS: Acetaminophen 325 MG TABLET 975 MG PO (13:38)
[2022-09-28 14:04] VITALS: BP 108/63; PULSE 72; RESP 15; O2SAT 98
--- NOTE | 2022-09-28 14:43 | PC.NURSE ---
Patient reports his stomach feels better but still has some lower leg/ foot pain that feels like cramping , provider aware.
[2022-09-28 14:47] VITALS: BP 115/65; PULSE 79; RESP 18; O2SAT 98
[2022-09-28] MEDS: PHENobarb/Hyoscy/Atropine/Scop 10 ML ELIXIR PO (15:35)
[2022-09-28 15:36] VITALS: BP 108/57; PULSE 76; RESP 16; TEMP 36.8; O2SAT 96
[2022-09-28] MEDS: Magnesium Hydrox/Alum Hydrox 30 ML ORAL.SUSP PO (15:36)
[2022-09-28] MEDS: Lidocaine HCl Viscous 2 % 15 ML SOLUTION MUCOUS MEM (15:36)
--- NOTE | 2022-09-28 15:39 | PC.NURSE ---
patient a&ox3 c/o 01/12 pain to chest, abd and flank, pt vss, manager monitoring intact pt atrial paced, call lambert within reach, will continue to monitor.
--- NOTE | 2022-09-28 16:55 | PC.NURSE ---
pt discharged per provider order, VSS, NSR on monitor technician, IV removed w/o complications.
== END 2022-09-28 16:55 | disposition home or self-care (01) ==
PROVIDERS: Physician Assistant; Emergency Provider Emergency Medicine
DX: K52.9 Noninfective gastroenteritis and colitis, unspecified (principal); I11.0 Hypertensive heart disease with heart failure; I50.9 Heart failure, unspecified; K70.30 Alcoholic cirrhosis of liver without ascites; F10.10 Alcohol abuse, uncomplicated; Y90.0 Blood alcohol level of less than 20 mg/100 ml; Z95.0 Presence of cardiac pacemaker; F17.210 Nicotine dependence, cigarettes, uncomplicated; Z79.01 Long term (current) use of anticoagulants; Z79.899 Other long term (current) drug therapy; Z79.02 Long term (current) use of antithrombotics/antiplatelets
CPT/HCPCS: 36415; 71046; 80048; 80076; 80307; 81001; 83690; 83735; 83880; 84484; 85025; 85610; 85730; 93005; 96361; 96374; 99284; 99285

== ENCOUNTER 2022-10-21 11:25 | Emergency (ER) | payer MEDICAID, SELFPAY ==
--- NOTE | ~2022-10-21 | XR_ITS ---
EXAMINATION: XR CHEST CLINICAL INFORMATION: Chest pain after vomiting COMPARISON: Previous chest x-ray most recent September 2022 TECHNIQUE: 2 views of the chest were obtained. FINDINGS: The cardiac and mediastinal contours are stable. There are postsurgical changes and aortic valve ring. There is a right subclavian dual chamber pacemaker unchanged in position. The thoracic aorta is calcified and tortuous. The lungs are clear. No pleural effusion. No pneumothorax or pneumomediastinum. Degenerative changes of the spine. XR/XR chest 2V IMPRESSION: No evidence for acute disease in the chest.
[2022-10-21 11:43] VITALS: BP 122/67; PULSE 83; RESP 20; TEMP 36.4; O2SAT 98; BMI 29.0
--- NOTE | 2022-10-21 11:44 | ED_ITS ---
HPI - General Adult General Chief complaint: Nausea/Vomiting/Diarrhea Stated complaint: diharea, vomiting, chest pain Time Seen by Provider: 10/21/22 13:21 Source: patient Mode of arrival: ambulatory Limitations: no limitations History of Present Illness HPI narrative: 62-year-old male presents with abdominal pain, nausea, vomiting and diarrhea. Symptoms started 2 months ago. Symptoms are intermittent. As far as the nausea vomiting, he has had 2 episodes today. Been nonbilious nonbloody. There is no clear relieving or exacerbating features. Denies any fevers or chills. He also has nonbloody diarrhea. This is a regular thing for him. He has some intermittent abdominal cramping. The pain is generalized. Does not radiate. There is no clear relieving or exacerbating features. Patient is complaining of bilateral foot cramping as well. Related Data Home Medications Medication Instructions Recorded Confirmed melatonin 5 mg tablet 2 tab PO BEDTIME PRN insomnia 10/18/20 06/04/22 amlodipine 2.5 mg tablet 2.5 mg PO DAILY 11/18/20 06/04/22 atorvastatin 20 mg tablet 20 mg PO DAILY 11/18/20 06/04/22 blood pressure test kit-large #1 ea 11/18/20 06/04/22 folic acid 1 mg tablet 1 mg PO DAILY 11/18/20 06/04/22 lidocaine 5 % topical patch 1 patch topical DAILY 11/18/20 06/04/22 lisinopril 10 mg tablet 10 mg PO DAILY 11/18/20 06/04/22 magnesium oxide 400 mg (241.3 mg 800 mg PO BID 11/18/20 06/04/22 magnesium) tablet metoprolol succinate 50 mg 50 mg PO DAILY 11/18/20 06/04/22 tablet,extended release 24 hr pantoprazole 40 mg tablet,delayed 40 mg PO BID 11/18/20 06/04/22 release thiamine HCl (vitamin B1) 100 mg 100 mg PO DAILY 11/18/20 06/04/22 tablet zolpidem 10 mg tablet 10 mg PO BEDTIME PRN Sleep 12/02/20 06/04/22 clopidogrel 75 mg tablet 1 tab PO DAILY 10/10/21 06/04/22 olanzapine 5 mg tablet 1 tab PO BEDTIME 10/10/21 06/04/22 acetaminophen 500 mg tablet 500 mg PO BID PRN Mild Pain (Scale 05/11/22 06/04/22 Score 1-4) albuterol sulfate 90 mcg/actuation 2 puff inhalation Q4H PRN 05/11/22 06/04/22 aerosol inhaler (Ventolin HFA) Respiratory Distress buspirone 10 mg tablet 10 mg PO TID 05/11/22 06/04/22 hydroxyzine pamoate 50 mg capsule 50 mg PO BEDTIME PRN Sleep 05/11/22 06/04/22 warfarin 5 mg tablet 5 mg PO DAILY 05/11/22 06/04/22 enoxaparin 60 mg/0.6 mL mg subcut BID 06/12/22 subcutaneous syringe sacubitril 24 mg-valsartan 26 mg 1 tab PO 06/12/22 tablet (Entresto) Previous Rx's Medication Instructions Recorded oxycodone 5 mg tablet 5 mg PO Q8H PRN moderate pain 05/12/22 (scale score 5-6) #14 tabs pantoprazole 40 mg tablet,delayed 40 mg PO DAILY #20 tabs 09/28/22 release (Protonix) ondansetron 4 mg disintegrating 4 mg PO Q8H PRN nausea and 10/21/22 tablet vomiting #10 tabs Allergies Allergy/AdvReac Type Severity Reaction Status Date / Time lorazepam [From ATIVAN] AdvReac Severe OPPOSITE Verified 09/28/22 12:20 EFFECT PSYCOTIC EFECTS Review of Systems Review of Systems: CONSTITUTIONAL: Denies weight loss, fever and chills. HEENT: Denies changes in vision and hearing. RESPIRATORY: Denies SOB and cough. CV: Denies palpitations no CP. GI: Denies abdominal pain, nausea, vomiting and diarrhea. : Denies dysuria and urinary frequency. MSK: + myalgia and joint pain. SKIN: Denies rash and pruritus. NEUROLOGICAL: Denies headache and syncope. PSYCHIATRIC: Denies recent changes in mood. Denies anxiety and depression. All other ROS are negative unless in HPI PMFSH Past Medical History Medical History Alcohol abuse Alcoholic liver disease Chronic systolic CHF (congestive heart failure) Cocaine abuse Coronary artery disease Hypertension Intracranial hemorrhage Pacemaker Short-segment Harrell's esophagus Skull fracture Surgical History Aortic valve replaced H/O aortic valve replacement History of esophagogastroduodenoscopy (EGD) S/P CABG (coronary artery bypass graft) Social History Social History Household Members: None Housing: Apartment Do you presently have visiting nurse or other home services: Yes Alcohol intake: current Alcohol intake frequency: a few times a week Alcohol type: beer Patient Tobacco Use Status: Current everyday Tobacco user Tobacco use type: Cigarette Cigarette Packs Per Day: 0.5 Second Hand Smoke Exposure: Yes Substance Use Type: Marijuana Advance Directives: Yes Advance Directives on File: Yes Advance Directives Date on File: 10/11/21 service: No Current occupational status: unemployed Physical Exam ED Vital Signs: Vital Signs - 24 hr 10/21/22 11:43 10/21/22 14:17 10/21/22 16:16 Temperature 97.5 F 98.5 F 98.9 F Pulse Rate 83 73 74 Respiratory Rate 20 18 18 Blood Pressure 122/67 128/74 130/70 Pulse Oximetry 98 96 95 Oxygen Delivery Method Room Air Room Air Room Air 10/21/22 19:43 Temperature 98.7 F Pulse Rate 82 Respiratory Rate 16 Blood Pressure 106/67 Pulse Oximetry 96 Oxygen Delivery Method Room Air BMI result Body Mass Index 29.0 GEN: Well developed, no acute distress, alert, oriented HEENT: Normocephalic, atraumatic, normal external ears, nose appears normal, no oropharyngeal edema or exudates Eyes: Normal to appearance Neck: Supple, no lymphadenopathy Respiratory: Talks in complete sentences, no respiratory distress, clear to auscultation bilaterally Cardiovascular: Regular rate and rhythm, no murmurs rubs or gallops Abdomen: Soft, nontender, nondistended, no guarding, no rebound Back: No CVA tenderness Extremities: No clubbing cyanosis or edema Neurologic: No focal neurologic deficits, cranial nerves 2-12 intact, strength is 5/5 bilaterally Skin: No rash Course Course Course Narrative: RME - 62 yo Italian speaking male with history of ETOH liver disease, complete heart block s/p PPM, CAD s/p CABG, HTN, CHF, aortic vavle replacemend on Coumadin who presents to the ER for evaluation of N/V/D that started yesterday along with chest pain when he vomits. Reports pain in his chest and whole body is 10/10. c/o burning abdominal pain and muscle cramping. Plan: EKG, CXR, lab workup Reevaluation(s) Reevaluation #1: Patient's lab work has returned. There is no elevated white blood cell count. Has mild stable anemia if not improved. Patient's INR is appropriate. Patient's sodium level is moderately low. Patient also has protein urea. Will treat patient symptomatically at this time and re-evaluate. Patient may warrant hospitalization for low sodium level. Patient's low sodium levels may very well be GI related. He might have hypovolemic low sodium due to GI fluid loss., Time: 14:20 Reevaluation #2: I have ordered serum osmolality and urine osmolality. Would like to help determine the etiology low sodium levels. Reevaluation #3: Sodium levels are much better after 1 L of IV fluids. Will discharge patient home with close follow-up. Medications Administered Discontinued Medications Generic Name Dose Route Start Last Admin Trade Name Rodneyq PRN Reason Stop Dose Admin Famotidine 20 mg 10/21/22 14:08 10/21/22 14:45 Famotidine/Pf 20 Mg/2 Ml Vial IVPUSH 10/21/22 14:09 20 mg ONCE ONE Administration Sodium Chloride 1,000 mls @ 999 mls/hr 10/21/22 14:15 10/21/22 16:16 Ns IV 10/21/22 15:15 Infused .Q1H1M CAMMY Infusion Morphine Sulfate 4 mg 10/21/22 14:10 10/21/22 14:42 Morphine Sulfate 4 Mg/Ml Cartridge IVPUSH 10/21/22 14:11 4 mg ONCE ONE Administration Protocol Ondansetron HCl 4 mg 10/21/22 14:08 10/21/22 14:45 Ondansetron Hcl 4 Mg/2 Ml Vial IVPUSH 10/21/22 14:09 4 mg ONCE ONE Administration Medical Decision Making Medical Decision Making MDM Narrative: Patient presents nausea, vomiting, diarrhea, abdominal pain, chest pain, no shortness of breath. Examination is benign. Differential diagnosis includes gastroenteritis, malabsorption, bacterial overgrowth, IBD, IBS. Chest pain appears to be atypical and has been going on for 2 months. The pain is across his chest and not associated with exertion. Does appear to be mostly associated with his vomiting. My plan will be to get an x-ray of his chest, EKG, cardiac enzymes, CBC, electrolytes. Differential Diagnosis Differential Diagnoses: The differential diagnosis associated with the presentation includes (See above) Admission/Observation Consideration of admission/observation: Escalation of care including admission/observation considered Lab Data MDM Lab Attestation statement: I reviewed the patient's lab results. 10/21/22 12:11 10/21/22 12:11 Labs: Lab Results 10/21/22 10/21/22 10/21/22 Range/Units 12:11 12:11 12:11 WBC 7.0 (4.8-10.8) X10*3/uL RBC 4.64 (4.60-5.80) X10*6/uL Hgb 13.1 L (14.0-18.0) g/dl Hct 38.2 L (42.0-52.0) % MCV 82.3 (80.0-98.0) fL MCH 28.2 (27.0-33.0) pg MCHC 34.3 (31.0-36.0) g/dl RDW 19.9 H (11.0-16.0) % Plt Count 355 (160-400) X10*3/uL MPV 8.7 L (9.4-12.4) fL Immature Gran % (Auto) 0.3 (0.0-0.4) % Neut % (Auto) 73.5 H (45-73) % Lymph % (Auto) 15.1 L (20-40) % Edwards % (Auto) 10.1 (2-11) % Eos % (Auto) 0.3 (0-4) % Baso % (Auto) 0.7 (0-2) % Lymph # (Auto) 1.1 L (1.2-4.9) X10*3/uL Edwards # (Auto) 0.7 (0.1-1.2) X10*3/uL Eos # (Auto) 0.0 (0.0-0.4) X10*3/uL Baso # (Auto) 0.1 (0.0-0.2) X10*3/uL Abs Immat Gran (auto) 0.02 (0.00-0.03) X10*3/uL Absolute Neuts (auto) 5.2 (2.0-8.3) x10*3/uL Absolute Nucleated RBC 0.000 (0.0-0.012) X10*3/uL Nucleated RBC % (auto) 0.0 (0.0-0.2) /100WBC PT 33.2 H (10.0-13.1) SEC INR 2.8 H (0.9-1.1) APTT 47.3 H (26.0-36.4) SEC Sodium 126 L (135-145) mmol/L Potassium 5.0 (3.3-5.1) mmol/L Chloride 96 (96-108) mmol/L Carbon Dioxide 20 L (22-29) mmol/L Anion Gap TNP BUN 12 (9-16) mg/dL Creatinine 0.87 (0.5-1.4) mg/dL Estim Creat Clear Calc 89.4 Estimated GFR > 60 Random Glucose 94 (60-115) mg/dL Osmolality Calcium 9.7 (8.4-10.2) mg/dL Magnesium 1.5 L (1.6-2.6) mg/dL Total Bilirubin 0.7 (0.0-1.0) mg/dL Direct Bilirubin 0.3 (0.0-0.5) mg/dL AST 32 (5-37) U/L ALT 33 (0-40) U/L Alkaline Phosphatase 84 (39-117) U/L Troponin I High Sens (<3.5-35.0) ng/L Total Protein 8.0 (6.5-8.0) g/dL Albumin 4.4 (3.5-5.0) g/dL Lipase 11 (8-78) U/L Urine Color Urine Appearance Urine pH (5.0-9.0) Ur Specific [place] (1.005-1.025) Urine Protein (Neg-Trace) mg/dL Urine Glucose (UA) (Negative) mg/dL Urine Ketones (Negative) mg/dL Urine Blood (Negative) Urine Nitrite (Negative) Ur Leukocyte Esterase (Negative) Urine RBC (0-2) /HPF Urine WBC (0-5) /HPF Ur Squamous Epith Cells (0-2) /HPF Urine Bacteria (None Seen) Hyaline Casts (0-2) /LPF Urine Osmolality (373-1093) mosm/kg Ur Random Sodium mmol/L Urine Creatinine mg/dL Urine Opiates Screen (Not Detect) Urine Fentanyl Screen (Not Detect) Ur Barbiturates Screen (Not Detect) Ur Phencyclidine Scrn (Not Detect) Ur Amphetamines Screen (Not Detect) U Benzodiazepines Scrn (Not Detect) Urine Cocaine Screen (Not Detect) U Marijuana (THC) Screen (Not Detect) Ethyl Alcohol mg/dL 10/21/22 10/21/22 10/21/22 Range/Units 12:11 12:11 12:11 WBC (4.8-10.8) X10*3/uL RBC (4.60-5.80) X10*6/uL Hgb (14.0-18.0) g/dl Hct (42.0-52.0) % MCV (80.0-98.0) fL MCH (27.0-33.0) pg MCHC (31.0-36.0) g/dl RDW (11.0-16.0) % Plt Count (160-400) X10*3/uL MPV (9.4-12.4) fL Immature Gran % (Auto) (0.0-0.4) % Neut % (Auto) (45-73) % Lymph % (Auto) (20-40) % Edwards % (Auto) (2-11) % Eos % (Auto) (0-4) % Baso % (Auto) (0-2) % Lymph # (Auto) (1.2-4.9) X10*3/uL Edwards # (Auto) (0.1-1.2) X10*3/uL Eos # (Auto) (0.0-0.4) X10*3/uL Baso # (Auto) (0.0-0.2) X10*3/uL Abs Immat Gran (auto) (0.00-0.03) X10*3/uL Absolute Neuts (auto) (2.0-8.3) x10*3/uL Absolute Nucleated RBC (0.0-0.012) X10*3/uL Nucleated RBC % (auto) (0.0-0.2) /100WBC PT (10.0-13.1) SEC INR (0.9-1.1) APTT (26.0-36.4) SEC Sodium (135-145) mmol/L Potassium (3.3-5.1) mmol/L Chloride (96-108) mmol/L Carbon Dioxide (22-29) mmol/L Anion Gap BUN (9-16) mg/dL Creatinine (0.5-1.4) mg/dL Estim Creat Clear Calc Estimated GFR Random Glucose (60-115) mg/dL Osmolality Calcium (8.4-10.2) mg/dL Magnesium (1.6-2.6) mg/dL Total Bilirubin (0.0-1.0) mg/dL Direct Bilirubin (0.0-0.5) mg/dL AST (5-37) U/L ALT (0-40) U/L Alkaline Phosphatase (39-117) U/L Troponin I High Sens 4.5 (<3.5-35.0) ng/L Total Protein (6.5-8.0) g/dL Albumin (3.5-5.0) g/dL Lipase (8-78) U/L Urine Color Yellow Urine Appearance Clear Urine pH 5.5 (5.0-9.0) Ur Specific [place] 1.010 (1.005-1.025) Urine Protein 30 (1+) H (Neg-Trace) mg/dL Urine Glucose (UA) Negative (Negative) mg/dL Urine Ketones Trace (Negative) mg/dL Urine Blood Negative (Negative) Urine Nitrite Negative (Negative) Ur Leukocyte Esterase Negative (Negative) Urine RBC 0-2 (0-2) /HPF Urine WBC 0-5 (0-5) /HPF Ur Squamous Epith Cells 0-2 (0-2) /HPF Urine Bacteria None Seen (None Seen) Hyaline Casts 0-2 (0-2) /LPF Urine Osmolality (373-1093) mosm/kg Ur Random Sodium mmol/L Urine Creatinine mg/dL Urine Opiates Screen (Not Detect) Urine Fentanyl Screen (Not Detect) Ur Barbiturates Screen (Not Detect) Ur Phencyclidine Scrn (Not Detect) Ur Amphetamines Screen (Not Detect) U Benzodiazepines Scrn (Not Detect) Urine Cocaine Screen (Not Detect) U Marijuana (THC) Screen (Not Detect) Ethyl Alcohol < 10 mg/dL 10/21/22 10/21/22 10/21/22 Range/Units 12:11 12:11 12:11 WBC (4.8-10.8) X10*3/uL RBC (4.60-5.80) X10*6/uL Hgb (14.0-18.0) g/dl Hct (42.0-52.0) % MCV (80.0-98.0) fL MCH (27.0-33.0) pg MCHC (31.0-36.0) g/dl RDW (11.0-16.0) % Plt Count (160-400) X10*3/uL MPV (9.4-12.4) fL Immature Gran % (Auto) (0.0-0.4) % Neut % (Auto) (45-73) % Lymph % (Auto) (20-40) % Edwards % (Auto) (2-11) % Eos % (Auto) (0-4) % Baso % (Auto) (0-2) % Lymph # (Auto) (1.2-4.9) X10*3/uL Edwards # (Auto) (0.1-1.2) X10*3/uL Eos # (Auto) (0.0-0.4) X10*3/uL Baso # (Auto) (0.0-0.2) X10*3/uL Abs Immat Gran (auto) (0.00-0.03) X10*3/uL Absolute Neuts (auto) (2.0-8.3) x10*3/uL Absolute Nucleated RBC (0.0-0.012) X10*3/uL Nucleated RBC % (auto) (0.0-0.2) /100WBC PT (10.0-13.1) SEC INR (0.9-1.1) APTT (26.0-36.4) SEC Sodium (135-145) mmol/L Potassium (3.3-5.1) mmol/L Chloride (96-108) mmol/L Carbon Dioxide (22-29) mmol/L Anion Gap BUN (9-16) mg/dL Creatinine (0.5-1.4) mg/dL Estim Creat Clear Calc Estimated GFR Random Glucose (60-115) mg/dL Osmolality Calcium (8.4-10.2) mg/dL Magnesium (1.6-2.6) mg/dL Total Bilirubin (0.0-1.0) mg/dL Direct Bilirubin (0.0-0.5) mg/dL AST (5-37) U/L ALT (0-40) U/L Alkaline Phosphatase (39-117) U/L Troponin I High Sens (<3.5-35.0) ng/L Total Protein (6.5-8.0) g/dL Albumin (3.5-5.0) g/dL Lipase (8-78) U/L Urine Color Urine Appearance Urine pH (5.0-9.0) Ur Specific [place] (1.005-1.025) Urine Protein (Neg-Trace) mg/dL Urine Glucose (UA) (Negative) mg/dL Urine Ketones (Negative) mg/dL Urine Blood (Negative) Urine Nitrite (Negative) Ur Leukocyte Esterase (Negative) Urine RBC (0-2) /HPF Urine WBC (0-5) /HPF Ur Squamous Epith Cells (0-2) /HPF Urine Bacteria (None Seen) Hyaline Casts (0-2) /LPF Urine Osmolality 281 L (373-1093) mosm/kg Ur Random Sodium 23.0 mmol/L Urine Creatinine 72.40 mg/dL Urine Opiates Screen Not Detected (Not Detect) Urine Fentanyl Screen Not Detected (Not Detect) Ur Barbiturates Screen Not Detected (Not Detect) Ur Phencyclidine Scrn Not Detected (Not Detect) Ur Amphetamines Screen Not Detected (Not Detect) U Benzodiazepines Scrn Not Detected (Not Detect) Urine Cocaine Screen Not Detected (Not Detect) U Marijuana (THC) Screen Not Detected (Not Detect) Ethyl Alcohol mg/dL 10/21/22 10/21/22 10/21/22 Range/Units 12:11 14:22 19:34 WBC (4.8-10.8) X10*3/uL RBC (4.60-5.80) X10*6/uL Hgb (14.0-18.0) g/dl Hct (42.0-52.0) % MCV (80.0-98.0) fL MCH (27.0-33.0) pg MCHC (31.0-36.0) g/dl RDW (11.0-16.0) % Plt Count (160-400) X10*3/uL MPV (9.4-12.4) fL Immature Gran % (Auto) (0.0-0.4) % Neut % (Auto) (45-73) % Lymph % (Auto) (20-40) % Edwards % (Auto) (2-11) % Eos % (Auto) (0-4) % Baso % (Auto) (0-2) % Lymph # (Auto) (1.2-4.9) X10*3/uL Edwards # (Auto) (0.1-1.2) X10*3/uL Eos # (Auto) (0.0-0.4) X10*3/uL Baso # (Auto) (0.0-0.2) X10*3/uL Abs Immat Gran (auto) (0.00-0.03) X10*3/uL Absolute Neuts (auto) (2.0-8.3) x10*3/uL Absolute Nucleated RBC (0.0-0.012) X10*3/uL Nucleated RBC % (auto) (0.0-0.2) /100WBC PT (10.0-13.1) SEC INR (0.9-1.1) APTT (26.0-36.4) SEC Sodium (135-145) mmol/L Potassium (3.3-5.1) mmol/L Chloride (96-108) mmol/L Carbon Dioxide (22-29) mmol/L Anion Gap BUN (9-16) mg/dL Creatinine (0.5-1.4) mg/dL Estim Creat Clear Calc Estimated GFR Random Glucose (60-115) mg/dL Osmolality Cancelled 286 Calcium (8.4-10.2) mg/dL Magnesium (1.6-2.6) mg/dL Total Bilirubin (0.0-1.0) mg/dL Direct Bilirubin (0.0-0.5) mg/dL AST (5-37) U/L ALT (0-40) U/L Alkaline Phosphatase (39-117) U/L Troponin I High Sens (<3.5-35.0) ng/L Total Protein (6.5-8.0) g/dL Albumin (3.5-5.0) g/dL Lipase (8-78) U/L Urine Color Yellow Urine Appearance Clear Urine pH 5.5 (5.0-9.0) Ur Specific [place] <= 1.005 (1.005-1.025) Urine Protein Negative (Neg-Trace) mg/dL Urine Glucose (UA) Negative (Negative) mg/dL Urine Ketones Trace (Negative) mg/dL Urine Blood Negative (Negative) Urine Nitrite Negative (Negative) Ur Leukocyte Esterase Negative (Negative) Urine RBC 0-2 (0-2) /HPF Urine WBC 0-5 (0-5) /HPF Ur Squamous Epith Cells 0-2 (0-2) /HPF Urine Bacteria None Seen (None Seen) Hyaline Casts 0-2 (0-2) /LPF Urine Osmolality (373-1093) mosm/kg Ur Random Sodium mmol/L Urine Creatinine mg/dL Urine Opiates Screen (Not Detect) Urine Fentanyl Screen (Not Detect) Ur Barbiturates Screen (Not Detect) Ur Phencyclidine Scrn (Not Detect) Ur Amphetamines Screen (Not Detect) U Benzodiazepines Scrn (Not Detect) Urine Cocaine Screen (Not Detect) U Marijuana (THC) Screen (Not Detect) Ethyl Alcohol mg/dL 10/21/22 Range/Units 19:34 WBC (4.8-10.8) X10*3/uL RBC (4.60-5.80) X10*6/uL Hgb (14.0-18.0) g/dl Hct (42.0-52.0) % MCV (80.0-98.0) fL MCH (27.0-33.0) pg MCHC (31.0-36.0) g/dl RDW (11.0-16.0) % Plt Count (160-400) X10*3/uL MPV (9.4-12.4) fL Immature Gran % (Auto) (0.0-0.4) % Neut % (Auto) (45-73) % Lymph % (Auto) (20-40) % Edwards % (Auto) (2-11) % Eos % (Auto) (0-4) % Baso % (Auto) (0-2) % Lymph # (Auto) (1.2-4.9) X10*3/uL [place] # (Auto) (0.1-1.2) X10*3/uL Eos # (Auto) (0.0-0.4) X10*3/uL Baso # (Auto) (0.0-0.2) X10*3/uL Abs Immat Gran (auto) (0.00-0.03) X10*3/uL Absolute Neuts (auto) (2.0-8.3) x10*3/uL Absolute Nucleated RBC (0.0-0.012) X10*3/uL Nucleated RBC % (auto) (0.0-0.2) /100WBC PT (10.0-13.1) SEC INR (0.9-1.1) APTT (26.0-36.4) SEC Sodium 134 L (135-145) mmol/L Potassium 4.7 (3.3-5.1) mmol/L Chloride 105 (96-108) mmol/L Carbon Dioxide 22 (22-29) mmol/L Anion Gap 12 BUN 12 (9-16) mg/dL Creatinine 1.07 (0.5-1.4) mg/dL Estim Creat Clear Calc 72.7 Estimated GFR > 60 Random Glucose 101 (60-115) mg/dL Osmolality Calcium 9.4 (8.4-10.2) mg/dL Magnesium (1.6-2.6) mg/dL Total Bilirubin (0.0-1.0) mg/dL Direct Bilirubin (0.0-0.5) mg/dL AST (5-37) U/L ALT (0-40) U/L Alkaline Phosphatase (39-117) U/L Troponin I High Sens (<3.5-35.0) ng/L Total Protein (6.5-8.0) g/dL Albumin (3.5-5.0) g/dL Lipase (8-78) U/L Urine Color Urine Appearance Urine pH (5.0-9.0) Ur Specific [place] (1.005-1.025) Urine Protein (Neg-Trace) mg/dL Urine Glucose (UA) (Negative) mg/dL Urine Ketones (Negative) mg/dL Urine Blood (Negative) Urine Nitrite (Negative) Ur Leukocyte Esterase (Negative) Urine RBC (0-2) /HPF Urine WBC (0-5) /HPF Ur Squamous Epith Cells (0-2) /HPF Urine Bacteria (None Seen) Hyaline Casts (0-2) /LPF Urine Osmolality (373-1093) mosm/kg Ur Random Sodium mmol/L Urine Creatinine mg/dL Urine Opiates Screen (Not Detect) Urine Fentanyl Screen (Not Detect) Ur Barbiturates Screen (Not Detect) Ur Phencyclidine Scrn (Not Detect) Ur Amphetamines Screen (Not Detect) U Benzodiazepines Scrn (Not Detect) Urine Cocaine Screen (Not Detect) U Marijuana (THC) Screen (Not Detect) Ethyl Alcohol mg/dL Patient's troponin is negative. Given the duration of his symptoms, it is essentially diagnostic troponin that he is not having acute coronary syndrome Independent Interpretation I performed an independent interpretation of an: EKG (Atrial sensed, ventricularly paced EKG, heart rate 80, no acute abnormalities) and Plain X-Ray (No acute cardiopulmonary disease) External Record Review External record reviewed: Inpatient record Prescription Management I considered prescription management with: Pain Medication and Antibiotic Critical Care Time Critical Care Time Critical Care Time: Yes Total Critical Care Time: 45 Attestation: Approximately 45 minutes of critical care time spent with patient in terms of direct patient care, interpretation and medical data, review of medical data, documentation, management of acute event acutely life-threatening or severe morbidity related condition all outside of any procedures. Discharge Plan Discharge Clinical Impression: Dehydration, Acute hyponatremia, Nausea vomiting and diarrhea Patient Disposition: Still a Patient Instructions: Dehydration (ED), Liquids and Hydration for Athletes (ED), Hyponatremia (ED), Acute Diarrhea (ED) Additional Instructions: Zofran every 8 hours as needed for nausea Probiotic daily like Culturelle. Ask your pharmacist for assistance Prescriptions: New ondansetron 4 mg tablet,disintegrating 4 mg PO Q8H PRN (Reason: nausea and vomiting) Qty: 10 0RF No Action melatonin 5 mg tablet 2 tab PO BEDTIME PRN (Reason: insomnia) clopidogrel 75 mg tablet 1 tab PO DAILY olanzapine 5 mg tablet 1 tab PO BEDTIME hydroxyzine pamoate 50 mg Capsule 50 mg PO BEDTIME PRN (Reason: Sleep) warfarin 5 mg Tablet 5 mg PO DAILY acetaminophen 500 mg Tablet 500 mg PO BID PRN (Reason: Mild Pain (Scale Score 1-4)) buspirone 10 mg Tablet 10 mg PO TID albuterol sulfate [Ventolin HFA] 90 mcg/actuation Hfa Aerosol Inhaler 2 puff INHALATION Q4H PRN (Reason: Respiratory Distress) oxycodone 5 mg tablet 5 mg PO Q8H PRN (Reason: moderate pain (scale score 5-6)) Qty: 14 0RF Rx Instructions: Partial Fill upon patient request. pantoprazole [Protonix] 40 mg tablet,delayed release (DR/EC) 40 mg PO DAILY Qty: 20 0RF zolpidem 10 mg tablet 10 mg PO BEDTIME PRN (Reason: Sleep) lisinopril 10 mg tablet 10 mg PO DAILY pantoprazole 40 mg tablet,delayed release (DR/EC) 40 mg PO BID magnesium oxide 400 mg (241.3 mg magnesium) tablet 800 mg PO BID amlodipine 2.5 mg tablet 2.5 mg PO DAILY thiamine HCl (vitamin B1) 100 mg tablet 100 mg PO DAILY metoprolol succinate 50 mg tablet extended release 24 hr 50 mg PO DAILY atorvastatin 20 mg tablet 20 mg PO DAILY (DME) blood pressure test kit-large Kit See Rx Instructions .ROUTE DIRECTED Qty: 1 Rx Instructions: As directed folic acid 1 mg tablet 1 mg PO DAILY lidocaine 5 % adhesive patch,medicated 1 patch topical DAILY Protocol: Apply to: Apply to: AFFECTED AREA Entresto 24-26 mg tablet 1 tab PO enoxaparin 60 mg/0.6 mL syringe subcut BID Referrals: Brigido Alcantara [Physician] - 10 days
--- NOTE | 2022-10-21 11:45 | ECG_ITS ---
Test Reason : CHEST PAIN Blood Pressure : / mmHG Vent. Rate : 080 BPM Atrial Rate : 080 BPM P-R Int : 162 ms QRS Dur : 194 ms QT Int : 450 ms P-R-T Axes : -27 051 155 degrees QTc Int : 519 ms Atrial-sensed ventricular-paced rhythm Abnormal ECG When compared with ECG of 28-SEP-2022 12:17, Vent. rate has decreased BY 10 BPM Referred By: Johnna Fairchild Electronically Signed By:Roosevelt Woodruff
[2022-10-21 12:17] LABS: MANUAL DIFF FLAG NO
[2022-10-21 12:19] LABS: Basophils Absolute Auto 0.1 X10*3/uL (0.0-0.2); Basophils Percent Auto 0.7 % (0-2); Eosinophils Percent Auto 0.3 % (0-4); Hematocrit 38.2 % (42.0-52.0); Hemoglobin 13.1 g/dl (14.0-18.0); Imm Gran Abs Auto 0.02 X10*3/uL (0.00-0.03); Imm Gran Pct Auto 0.3 % (0.0-0.4); Lymphocytes Absolute Auto 1.1 X10*3/uL (1.2-4.9); Lymphocytes Percent Auto 15.1 % (20-40); Mean Corpuscular HGB Conc 34.3 g/dl (31.0-36.0); Mean Corpuscular Hemoglobin 28.2 pg (27.0-33.0); Mean Corpuscular Volume 82.3 fL (80.0-98.0); Mean Platelet Volume 8.7 fL (9.4-12.4); Monocytes Absolute Auto 0.7 X10*3/uL (0.1-1.2); Monocytes Percent Auto 10.1 % (2-11); Neutrophils Absolute Auto 5.2 x10*3/uL (2.0-8.3); Neutrophils Percent Auto 73.5 % (45-73); Platelet Count 355 X10*3/uL (160-400); Red Blood Count 4.64 X10*6/uL (4.60-5.80); Red Cell Distribution Width 19.9 % (11.0-16.0)
[2022-10-21 12:20] LABS: Appearance Urine Clear; Color Urine Yellow; Glucose Urine UA Negative (Negative); Leukocyte Esterase Urine Negative (Negative); Nitrite Urine Negative (Negative); PH 5.5 (5.0-9.0); UMIC TRIGGER UACC YES; Urine Blood Negative (Negative); Urine Ketones Trace mg/dL (Negative); Urine Protein 30 (1+) mg/dL (Neg-Trace)
[2022-10-21 12:22] LABS: Bacteria Urine None Seen (None Seen); Hyaline Casts Urine 0-2 /LPF (0-2); RBC Urine 0-2 /HPF (0-2); Squamous Epithelial Cell Urine 0-2 /HPF (0-2); WBC Urine 0-5 /HPF (0-5)
[2022-10-21 12:24] LABS: INTERNATIONAL NORM RATIO 2.8 (0.9-1.1); Prothrombin Time 33.2 SEC (10.0-13.1)
[2022-10-21 12:27] LABS: Partial Thromboplastin Time 47.3 SEC (26.0-36.4)
[2022-10-21 12:36] LABS: Amphetamine Screen Urine Not Detected (Not Detect); Barbiturates, Urine Not Detected (Not Detect); Benzodiazepines Screen Urine Not Detected (Not Detect); Cannabinoid Screen Urine Not Detected (Not Detect); Cocaine Screen Urine Not Detected (Not Detect); Fentanyl, urine Not Detected (Not Detect); Opiate Screen Urine Not Detected (Not Detect); Phencyclidine Screen Urine Not Detected (Not Detect)
[2022-10-21 12:42] LABS: Ethanol < 10 mg/dL
[2022-10-21 12:50] LABS: Troponin-I High Sensitivity 4.5 ng/L (<3.5-35.0)
[2022-10-21 14:16] LABS: Alanine Aminotransferase 33 U/L (0-40); Albumin Level 4.4 g/dL (3.5-5.0); Alkaline Phosphatase 84 U/L (39-117); Aspartate Amino Transferase 32 U/L (5-37); Bilirubin Direct 0.3 mg/dL (0.0-0.5); Bilirubin Total 0.7 mg/dL (0.0-1.0); Blood Urea Nitrogen 12 mg/dL (9-16); Calcium 9.7 mg/dL (8.4-10.2); Chloride 96 mmol/L (96-108); Creatinine Clr Calc Pharmacy 89.4; Estimated Glomerular Filt Rate > 60; Glucose Random 94 mg/dL (60-115); Lipase 11 U/L (8-78); Magnesium 1.5 mg/dL (1.6-2.6); Sodium 126 mmol/L (135-145)
[2022-10-21 14:17] VITALS: BP 128/74; PULSE 73; RESP 18; TEMP 36.9; O2SAT 96
[2022-10-21 14:28] LABS: Appearance Urine Clear; Color Urine Yellow; Glucose Urine UA Negative (Negative); Leukocyte Esterase Urine Negative (Negative); Nitrite Urine Negative (Negative); PH 5.5 (5.0-9.0); Specific Gravity - Urine <= 1.005 (1.005-1.025); Urine Blood Negative (Negative); Urine Ketones Trace mg/dL (Negative); Urine Protein Negative (Neg-Trace)
[2022-10-21 14:31] LABS: Bacteria Urine None Seen (None Seen); Hyaline Casts Urine 0-2 /LPF (0-2); RBC Urine 0-2 /HPF (0-2); Squamous Epithelial Cell Urine 0-2 /HPF (0-2); WBC Urine 0-5 /HPF (0-5)
[2022-10-21] MEDS: Morphine Sulfate 4 MG/ML CARTRIDGE IVPUSH (14:42)
[2022-10-21] MEDS: ondansetron HCL 4 MG/2 ML VIAL IVPUSH (14:45)
[2022-10-21] MEDS: Famotidine/PF 20 MG/2 ML VIAL IVPUSH (14:45)
[2022-10-21] MEDS: 0.9 % Sodium Chloride 1,000 ML 999 ML IV (14:45)
[2022-10-21 16:16] VITALS: BP 130/70; PULSE 74; RESP 18; TEMP 37.2; O2SAT 95
[2022-10-21 18:18] LABS: Osmolality Urine 281 mosm/kg (373-1093)
[2022-10-21 18:41] LABS: Carbon Dioxide 20 mmol/L (22-29)
[2022-10-21 19:43] VITALS: BP 106/67; PULSE 82; RESP 16; TEMP 37.1; O2SAT 96
[2022-10-21 20:01] LABS: Anion Gap 12 (12-20); Blood Urea Nitrogen 12 mg/dL (9-16); Calcium 9.4 mg/dL (8.4-10.2); Carbon Dioxide 22 mmol/L (22-29); Chloride 105 mmol/L (96-108); Creatinine Clr Calc Pharmacy 72.7; Estimated Glomerular Filt Rate > 60; Glucose Random 101 mg/dL (60-115); Potassium 4.7 mmol/L (3.3-5.1); Sodium 134 mmol/L (135-145)
[2022-10-21 20:06] LABS: Osmolality, Serum 286 mosm/kg (281-305)
== END 2022-10-21 21:01 | disposition home or self-care (01) ==
PROVIDERS: Physician Assistant; Emergency Provider Emergency Medicine
DX: E86.0 Dehydration (principal); E87.1 Hypo-osmolality and hyponatremia; R11.2 Nausea with vomiting, unspecified; R19.7 Diarrhea, unspecified; I11.0 Hypertensive heart disease with heart failure; I50.9 Heart failure, unspecified; F17.210 Nicotine dependence, cigarettes, uncomplicated; Z95.4 Presence of other heart-valve replacement; Z79.01 Long term (current) use of anticoagulants; Z79.899 Other long term (current) drug therapy
CPT/HCPCS: 36415; 71046; 80048; 80076; 80307; 81001; 83690; 83735; 83930; 83935; 84300; 84484; 85025; 85610; 85730; 93005; 96361; 96374; 96375; 99284; J2270; J2405

== ENCOUNTER → 2022-10-21 11:45 | Outpatient (BNV) | payer MEDICAID, SELFPAY | PROVIDERS: Emergency Provider Emergency Medicine; Visit Provider Internal Medicine Cardiovascular Disease | DX: R94.31 Abnormal electrocardiogram [ECG] [EKG] (principal) | CPT/HCPCS: 93010 ==

== ENCOUNTER 2022-11-17 10:14 | Inpatient (IN) | payer MEDICAID, SELFPAY ==
[2022-11-17] VITALS (9 sets, daily range): BP systolic 105–144; BP diastolic 56–71; PULSE 75–109; RESP 14–23; TEMP 36.1–37.4; O2SAT 94–96; BMI 25.8; BMI 26.0
--- NOTE | ~2022-11-17 | XR_ITS ---
EXAMINATION: XR CHEST CLINICAL INFORMATION: Dizziness COMPARISON: . TECHNIQUE: Frontal view of the chest was obtained. FINDINGS: Median sternotomy wires, valve prosthesis and bipolar pacer are seen. Heart and mediastinum within normal limits. No vascular congestion, consolidations or effusions. Surgical clips overlying the left hemithorax. XR/XR chest 1V IMPRESSION: No acute cardiopulmonary disease or interval change.
--- NOTE | ~2022-11-17 | US_ITS ---
EXAMINATION: US ABDOMEN LIMITED CLINICAL INFORMATION: Epigastric pain, nausea/vomiting liver disease.. COMPARISON: CT abdomen and pelvis without contrast. TECHNIQUE: Real-time imaging of the right upper quadrant abdominal viscera. FINDINGS: PANCREAS: Partially visualized body the pancreas is homogeneous echotexture. Rest of the pancreas is obscured by overlying gas. LIVER: The liver is borderline enlarged measuring 15.6 cm. The liver contour is normal. Parenchymal echogenicity is slightly increased. No focal hepatic lesion. There is no intrahepatic biliary duct dilatation seen. GALLBLADDER: Normal. The gallbladder is physiologically distended without evidence of stones, sludge, polyps, wall thickening or pericholecystic fluid. COMMON BILE DUCT: Normal in caliber measuring 0.5 cm in diameter. RIGHT KIDNEY: No hydronephrosis. No renal calculi or focal parenchymal lesions. The kidney measures 10.5 cm in maximum dimension. There is anechoic lower pole cyst measuring 0.7 x 0.8 x 0.9 cm. FREE FLUID: None. US/US abdomen limited IMPRESSION: 1. Slightly echogenic liver without focal lesion. 2. Small cyst lower pole right kidney. 3. Visualized pancreas, gallbladder, CBD and the right kidney is unremarkable.
--- NOTE | ~2022-11-17 | CT_ITS ---
EXAMINATION: CT HEAD WITHOUT CONTRAST CLINICAL INFORMATION: Headache elevated INR COMPARISON: None available. TECHNIQUE: Contiguous axial imaging was performed from the skull base to vertex without intravenous administration of contrast. This CT examination was performed using dose optimization techniques as appropriate, variously including the following: *Automated exposure control *Adjustment of mA and/or kV according to patient size (this includes techniques or standardized protocols for targeted exams where dose is matched to indication/reason for exam; i.e. extremities or head) *Use of iterative reconstruction technique DLP: 758 mGy-cm FINDINGS: There is no acute intra-axial, extra-axial bleed, masses or midline shift. There is hypodensity in the anterior right temporal lobe consistent with old encephalomalacia, unchanged to previous exam 05/11/2022.. There is small area of hypodensity in the anterior left temporal lobe as well. There is no acute infarction or edema. The finley to white matter difference is maintained normal. Ex vacuole dilatation of temporal horn right lateral ventricle is noted. Bone windows reveal diffuse mucoperiosteal thickening bilateral maxillary sinus with an air-fluid level in the left maxillary sinus. Rest the paranasal sinuses and mastoids are well-aerated. There is a left parietal craniotomy noted. No other calvarial abnormality. No scalp soft tissue swelling. CT/CT head/brain wo IV con IMPRESSION: No acute intracranial process. Encephalomalacia in the right temporal lobe and a small area in the left temporal lobe from previous intraparenchymal hemorrhages. Left parietal craniotomy from previous intervention. Interval chronic bilateral maxillary sinus inflammatory changes.
--- NOTE | 2022-11-17 10:21 | ECG_ITS ---
Test Reason : cp Blood Pressure : / mmHG Vent. Rate : 100 BPM Atrial Rate : 100 BPM P-R Int : 134 ms QRS Dur : 184 ms QT Int : 420 ms P-R-T Axes : 029 077 257 degrees QTc Int : 541 ms Atrial-sensed ventricular-paced rhythm Abnormal ECG When compared with ECG of 21-OCT-2022 12:00, Vent. rate has increased BY 20 BPM Referred By: Generic ED Physician Electronically Signed By:NETTA CID
[2022-11-17 10:41] LABS: MANUAL DIFF FLAG NO
[2022-11-17 10:44] LABS: Basophils Percent Auto 0.7 % (0-2); Hematocrit 32.8 % (42.0-52.0); Hemoglobin 11.7 g/dl (14.0-18.0); Imm Gran Abs Auto 0.01 X10*3/uL (0.00-0.03); Imm Gran Pct Auto 0.2 % (0.0-0.4); Lymphocytes Absolute Auto 0.6 X10*3/uL (1.2-4.9); Lymphocytes Percent Auto 10.3 % (20-40); Mean Corpuscular HGB Conc 35.7 g/dl (31.0-36.0); Mean Corpuscular Volume 81.4 fL (80.0-98.0); Mean Platelet Volume 8.8 fL (9.4-12.4); Monocytes Absolute Auto 0.6 X10*3/uL (0.1-1.2); Monocytes Percent Auto 10.6 % (2-11); Neutrophils Absolute Auto 4.7 x10*3/uL (2.0-8.3); Neutrophils Percent Auto 78.2 % (45-73); Platelet Count 243 X10*3/uL (160-400); Red Blood Count 4.03 X10*6/uL (4.60-5.80); Red Cell Distribution Width 19.1 % (11.0-16.0)
[2022-11-17 10:58] LABS: Anion Gap 16 (12-20); Blood Urea Nitrogen 8 mg/dL (9-16); Calcium 9.1 mg/dL (8.4-10.2); Carbon Dioxide 19 mmol/L (22-29); Chloride 93 mmol/L (96-108); Estimated Glomerular Filt Rate > 60; Glucose Random 103 mg/dL (60-115); Potassium 4.7 mmol/L (3.3-5.1); Sodium 123 mmol/L (135-145)
[2022-11-17 11:06] LABS: Troponin-I High Sensitivity 11.4 ng/L (<3.5-35.0)
--- NOTE | 2022-11-17 11:18 | ED.GENADULT ---
HPI - General Adult General Chief complaint: General Medical Stated complaint: Chest pain/HBP Time Seen by Provider: 11/17/22 12:30 Source: patient, RN notes reviewed and old records reviewed Mode of arrival: ambulatory History of Present Illness HPI narrative: 62-year-old male with past medical history of alcoholic liver disease, cocaine abuse, hypertension, thrombocytopenia,?history of intracranial hemorrhage, asthma, various esophagus, aortic valve replacement on Coumadin, presents to the ED complaining of CP, headache, lightheadedness, abdominal discomfort, nausea, nonbloody vomiting and emesis x few days. Reports decreased p.o. intake. Admits was [facility] for [facility]R check today was elevated to 6.9. reports drinking ETOH only on the weekends, denies history of withdrawal/ withdrawal seizures or other illicit drug use. Denies known fever/chills , dysuria/ hematuria, pedal edema, melena/bloody stool, hematuria, falls Related Data Home Medications Medication Instructions Recorded Confirmed melatonin 5 mg tablet 2 tab PO BEDTIME PRN insomnia 10/18/20 11/17/22 amlodipine 2.5 mg tablet 2.5 mg PO DAILY 11/18/20 11/17/22 atorvastatin 20 mg tablet 20 mg PO DAILY 11/18/20 11/17/22 blood pressure test kit-large #1 ea 11/18/20 06/04/22 folic acid 1 mg tablet 1 mg PO DAILY 11/18/20 11/17/22 lidocaine 5 % topical patch 1 patch topical DAILY 11/18/20 11/17/22 magnesium oxide 400 mg (241.3 mg 800 mg PO BID 11/18/20 11/17/22 magnesium) tablet metoprolol succinate 50 mg 50 mg PO DAILY 11/18/20 11/17/22 tablet,extended release 24 hr pantoprazole 40 mg tablet,delayed 40 mg PO BID 11/18/20 11/17/22 release thiamine HCl (vitamin B1) 100 mg 100 mg PO DAILY 11/18/20 11/17/22 tablet zolpidem 10 mg tablet 10 mg PO BEDTIME PRN Sleep 12/02/20 11/17/22 clopidogrel 75 mg tablet 1 tab PO DAILY 10/10/21 06/04/22 olanzapine 5 mg tablet 1 tab PO BEDTIME 10/10/21 11/17/22 acetaminophen 500 mg tablet 500 mg PO BID PRN Mild Pain (Scale 05/11/22 11/17/22 Score 1-4) albuterol sulfate 90 mcg/actuation 2 puff inhalation Q4H PRN 05/11/22 11/17/22 aerosol inhaler (Ventolin HFA) Respiratory Distress buspirone 10 mg tablet 10 mg PO TID 05/11/22 11/17/22 hydroxyzine pamoate 50 mg capsule 50 mg PO BEDTIME PRN Sleep 05/11/22 11/17/22 warfarin 5 mg tablet 5 mg PO DAILY 05/11/22 06/04/22 sacubitril 24 mg-valsartan 26 mg 1 tab PO BID 06/12/22 11/17/22 tablet (Entresto) Previous Rx's Medication Instructions Recorded oxycodone 5 mg tablet 5 mg PO Q8H PRN moderate pain 05/12/22 (scale score 5-6) #14 tabs ondansetron 4 mg disintegrating 4 mg PO Q8H PRN nausea and 10/21/22 tablet vomiting #10 tabs Allergies Allergy/AdvReac Type Severity Reaction Status Date / Time lorazepam [From ATIVAN] AdvReac Severe OPPOSITE Verified 09/28/22 12:20 EFFECT PSYCOTIC EFECTS Review of Systems Review of Systems: Constitutional: No Fever, No Chills, + Fatigue, + Malaise ENT/Mouth: No Ear Pain, No Nasal Congestion, No Sinus Pain, No Hoarseness, No sore throat, No Rhinorrhea, No Swallowing Difficulty Eyes: No Eye Pain, No Swelling, No Redness, No Vision Changes Cardiovascular: + Chest Pain, No SOB, No Dyspnea on Exertion, No Orthopnea, No Edema, No Palpitations Respiratory: No Cough, No Sputum, No Wheezing, No Dyspnea Gastrointestinal: + Nausea, + Vomiting, + Diarrhea, No Constipation, + Abdominal pain, No Hematochezia, No Melena Genitourinary: No irregular bleeding, No Dysuria, No Urinary Frequency, No Hematuria, No Flank Pain Musculoskeletal: No joint pain, No Myalgias, No Joint Swelling Skin: No Skin Lesions, No rash Neuro: + Weakness, No Numbness, No Paresthesias, No Loss of Consciousness, + lightheaded, + Headache Yes all other systems are reviewed and are negative Constitutional: Constitutional: Reports as per [facility] Past Medical History Attestation statement: The following information was validated with the patient. Source: old records reviewed Medical History Alcohol abuse Alcoholic liver disease Chronic systolic CHF (congestive heart failure) Cocaine abuse Coronary artery disease Hypertension Intracranial hemorrhage Pacemaker Short-segment Harrell's esophagus Skull fracture Surgical History Aortic valve replaced H/O aortic valve replacement History of esophagogastroduodenoscopy (EGD) S/P CABG (coronary artery bypass graft) Social History Social History Household Members: None Housing: Apartment Do you presently have visiting nurse or other home services: Yes Alcohol intake: current Alcohol intake frequency: a few times a week Alcohol type: beer Patient Tobacco Use Status: Current everyday Tobacco user Tobacco use type: Cigarette Cigarette Packs Per Day: 0.5 Second Hand Smoke Exposure: Yes Substance Use Type: Marijuana Advance Directives: Yes Advance Directives on File: Yes Advance Directives Date on File: 10/11/21 service: No Current occupational status: unemployed Physical Exam ED Vital Signs: Vital Signs - 24 hr 11/17/22 10:39 11/17/22 12:48 11/17/22 13:44 Temperature 98.0 F Pulse Rate 109 H 92 89 Respiratory Rate 16 20 23 H Blood Pressure 129/71 130/66 119/56 L Pulse Oximetry 95 96 95 Oxygen Delivery Method Room Air Room Air Room Air 11/17/22 14:52 11/17/22 14:58 11/17/22 14:58 Temperature 99.3 F Pulse Rate 86 80 85 Respiratory Rate 14 Blood Pressure 126/62 114/63 114/59 L Pulse Oximetry 95 Oxygen Delivery Method Room Air 11/17/22 14:58 11/17/22 15:56 Temperature 99.1 F Pulse Rate 90 84 Respiratory Rate 20 Blood Pressure 121/71 144/69 H Pulse Oximetry 95 Oxygen Delivery Method Room Air BMI result Body Mass Index 25.8 Const Other: tremulous General: cooperative and no acute distress Orientation/consciousness: patient oriented x3 Limitations: no limitations HENMT Head: Yes normal to inspection and Yes atraumatic Ears: hearing grossly normal bilaterally General nose exam: Normal external nose present Face and sinus: Yes normal facial exam Eyes General: appearance normal, both eyes and all related structures Pupils: Equal, round and reactive pupils present EOM: EOMs intact bilaterally Neck Neck: Yes normal visual inspection and Yes no meningeal signs Resp Effort & Inspection: normal respiratory effort and no respiratory distress Auscultation: clear to auscultation bilaterally and no wheezes Cardio Rate: regular rate Heart sounds: S1 normal heart sound present and S2 normal heart sound present GI Inspection: Yes normal to inspection Palpation (GI): Soft to palpation, Tenderness to palpation present (GI) in the epigastrum and in the RUQ; with no rebound tenderness, no guarding and not rigid General: Yes no CVA tenderness Back/Spine/Pelvis Back: no CVA tenderness Skin Rashes: no rashes Wounds: no wounds Neuro Other: no tongue fasciculations General: patient oriented x3, tone normal, moves all extremities and no meningeal signs Cranial nerves: Yes CN's II-XII intact bilaterally and Yes Equal, round and reactive pupils present Extrem General: Yes normal to inspection Course Course Course Narrative: This is an RME: Additional HPI, ROS, PE not included below will be deferred to primary provider. 62 year old male presents w/ nausea, vomiting, shaking, cp, dizziness for a few days worsening. Hx of alcohol abuse however denies this. Denies hx of w/ drawl. Upon chart review NA+ of 123. Paitent doesnt apppwar well will bring back to a room charge aware. Plan- labs, ekg, ciwa -1438-- no leukocytosis. Chronic anemia. INR 8.4, PTT 62.3 >> no evidence of bleeding at this time, due to headache will pain CT head > case discussed with Dr. Edwards will give 5mg of IV Vitamin K - hyponatremic to 123 likely from volume depletion > hyponatremia is acute on chronic - Troponin x2 equivocal, mi unlikely. BNP chronically elevated - ethanol 26, tox screen otherwise negative >> concern for beer potomania > patient received 1 L IVF upon arrival, repeat sodium 123 after fluid US abdomen limited IMPRESSION: 1.? Slightly echogenic liver without focal lesion. 2.? Small cyst lower pole right kidney. 3.? Visualized pancreas, gallbladder, CBD and the right kidney is unremarkable. ? XR chest 1V IMPRESSION: No acute cardiopulmonary disease or interval change. 1534--CT head/brain wo IV con IMPRESSION: No acute intracranial process. ? Encephalomalacia in the right temporal lobe and a small area in the left temporal lobe from previous intraparenchymal hemorrhages. ? Left parietal craniotomy from previous intervention. ? Interval chronic bilateral maxillary sinus inflammatory changes. > plan to admit for further management Medications Administered Generic Name Dose Route Start Last Admin Trade Name Freq PRN Reason Stop Dose Admin Phenobarbital Sodium 205.4 mg 11/17/22 16:00 11/17/22 16:21 Phenobarbital Sodium 130 Mg/Ml Vial Im Q3hx2 IM 11/17/22 19:01 205.4 mg Q3H CAMMY Administration Protocol Discontinued Medications Generic Name Dose Route Start Last Admin Trade Name Freq PRN Reason Stop Dose Admin Chlordiazepoxide HCl 50 mg 11/17/22 12:35 11/17/22 13:01 Chlordiazepoxide Hcl 25 Mg Capsule PO 11/17/22 12:36 50 mg ONCE ONE Administration Magnesium Sulfate 2 gm in 50 mls @ 25 mls/hr 11/17/22 12:33 11/17/22 14:50 Magnesium Sulfate/H2o IV 11/17/22 14:32 Infused ONCE ONE Infusion Phytonadione 5 mg/ Sodium 50.5 mls @ 50.5 mls/hr 11/17/22 13:24 11/17/22 15:48 Chloride IV 11/17/22 14:23 Infused ONCE ONE Infusion Ondansetron HCl 4 mg 11/17/22 11:54 11/17/22 11:58 Ondansetron Hcl 4 Mg/2 Ml Vial IVPUSH 11/17/22 11:55 4 mg ONCE ONE Administration Phenobarbital Sodium 273 mg 11/17/22 13:00 11/17/22 13:41 Phenobarbital Sodium 130 Mg/Ml Im Once IM 11/17/22 13:01 273 mg ONCE ONE Administration Protocol Medical Decision Making Medical Decision Making MDM Narrative: 62-year-old male with past medical history of alcoholic liver disease, cocaine abuse, hypertension, thrombocytopenia,?history of intracranial hemorrhage, asthma, various esophagus, aortic valve replacement on Coumadin, presents to the ED complaining of CP, headache, lightheadedness, abdominal discomfort, nausea, nonbloody vomiting and emesis x few days. Reports decreased p.o. intake. On exam initially tachycardic, tremulous, no tongue fasciculations however concern for EtOH withdrawal. Abdomen soft with epigastric/ RUQ tenderness, no rebound or guarding, lungs CTA. No focal neuro deficits. Concern for ETOH withdrawal/dependence vs cirrhosis/hepatitis vs coagulopathy vs ACS vs dehydration/metabolic abnormalities. Rule out cholecystitis / lithiasis and pancreatitis. Lower suspicion for appendicitis/diverticulitis, renal stone plan: EKG, labs, UA, CXR, abdomen ultrasound, IVF, antiemetic, p.o. Librium, phenobarb protocol, anticipate admission Please refer to course for remaining clinical decision making, interpretation of labs/imaging results, and discussions with consultants and/or family members. Differential Diagnosis Differential Diagnoses: The differential diagnosis associated with the presentation includes As above Admission/Observation Consideration of admission/observation: Escalation of care including admission/observation considered Consult Healthcare Provider Management of the patient was discussed with: Hospitalist Lab Data MDM Lab Attestation statement: I reviewed the patient's lab results. 11/17/22 10:33 11/17/22 10:33 Labs: Lab Results 11/17/22 11/17/22 11/17/22 Range/Units 10:33 10:33 10:33 WBC 6.0 (4.8-10.8) X10*3/uL RBC 4.03 L (4.60-5.80) X10*6/uL Hgb 11.7 L (14.0-18.0) g/dl Hct 32.8 L (42.0-52.0) % MCV 81.4 (80.0-98.0) fL MCH 29.0 (27.0-33.0) pg MCHC 35.7 (31.0-36.0) g/dl RDW 19.1 H (11.0-16.0) % Plt Count 243 D (160-400) X10*3/uL MPV 8.8 L (9.4-12.4) fL Immature Gran % (Auto) 0.2 (0.0-0.4) % Neut % (Auto) 78.2 H (45-73) % Lymph % (Auto) 10.3 L (20-40) % Barron % (Auto) 10.6 (2-11) % Eos % (Auto) 0.0 (0-4) % Baso % (Auto) 0.7 (0-2) % Lymph # (Auto) 0.6 L (1.2-4.9) X10*3/uL Barron # (Auto) 0.6 (0.1-1.2) X10*3/uL Eos # (Auto) 0.0 (0.0-0.4) X10*3/uL Baso # (Auto) 0.0 (0.0-0.2) X10*3/uL Abs Immat Gran (auto) 0.01 (0.00-0.03) X10*3/uL Absolute Neuts (auto) 4.7 (2.0-8.3) x10*3/uL Absolute Nucleated RBC 0.000 (0.0-0.012) X10*3/uL Nucleated RBC % (auto) 0.0 (0.0-0.2) /100WBC PT (11.1-13.3) SEC INR (0.9-1.1) APTT (26.0-36.4) SEC Sodium 123 L (135-145) mmol/L Potassium 4.7 (3.3-5.1) mmol/L Chloride 93 L (96-108) mmol/L Carbon Dioxide 19 L (22-29) mmol/L Anion Gap 16 (12-20) BUN 8 L (9-16) mg/dL Creatinine 1.00 (0.5-1.4) mg/dL Estim Creat Clear Calc 75.0 Estimated GFR > 60 Random Glucose 103 (60-115) mg/dL Osmolality (281-305) mosm/kg Calcium 9.1 (8.4-10.2) mg/dL Magnesium 1.2 L* (1.6-2.6) mg/dL Total Bilirubin 0.4 (0.0-1.0) mg/dL Direct Bilirubin 0.2 (0.0-0.5) mg/dL AST 51 H (5-37) U/L ALT 46 H (0-40) U/L Alkaline Phosphatase 80 (39-117) U/L Troponin I High Sens 11.4 D (<3.5-35.0) ng/L B-Natriuretic Peptide (<100) pg/mL Total Protein 7.4 (6.5-8.0) g/dL Albumin 4.1 (3.5-5.0) g/dL Lipase 15 (8-78) U/L Urine Color Urine Appearance Urine pH (5.0-9.0) Ur Specific [place] (1.005-1.025) Urine Protein (Neg-Trace) mg/dL Urine Glucose (UA) (Negative) mg/dL Urine Ketones (Negative) mg/dL Urine Blood (Negative) Urine Nitrite (Negative) Ur Leukocyte Esterase (Negative) Urine RBC (0-2) /HPF Urine WBC (0-5) /HPF Ur Squamous Epith Cells (0-2) /HPF Urine Bacteria (None Seen) Hyaline Casts (0-2) /LPF Urine Osmolality (373-1093) mosm/kg Ur Random Sodium mmol/L Ur Random Potassium mmol/L Ur Random Chloride mmol/L Urine Opiates Screen (Not Detect) Urine Fentanyl Screen (Not Detect) Ur Barbiturates Screen (Not Detect) Ur Phencyclidine Scrn (Not Detect) Ur Amphetamines Screen (Not Detect) U Benzodiazepines Scrn (Not Detect) Urine Cocaine Screen (Not Detect) U Marijuana (THC) Screen (Not Detect) Ethyl Alcohol 26 mg/dL 11/17/22 11/17/22 11/17/22 Range/Units 12:05 12:05 12:50 WBC (4.8-10.8) X10*3/uL RBC (4.60-5.80) X10*6/uL Hgb (14.0-18.0) g/dl Hct (42.0-52.0) % MCV (80.0-98.0) fL MCH (27.0-33.0) pg MCHC (31.0-36.0) g/dl RDW (11.0-16.0) % Plt Count (160-400) X10*3/uL MPV (9.4-12.4) fL Immature Gran % (Auto) (0.0-0.4) % Neut % (Auto) (45-73) % Lymph % (Auto) (20-40) % Barron % (Auto) (2-11) % Eos % (Auto) (0-4) % Baso % (Auto) (0-2) % Lymph # (Auto) (1.2-4.9) X10*3/uL Barron # (Auto) (0.1-1.2) X10*3/uL Eos # (Auto) (0.0-0.4) X10*3/uL Baso # (Auto) (0.0-0.2) X10*3/uL Abs Immat Gran (auto) (0.00-0.03) X10*3/uL Absolute Neuts (auto) (2.0-8.3) x10*3/uL Absolute Nucleated RBC (0.0-0.012) X10*3/uL Nucleated RBC % (auto) (0.0-0.2) /100WBC PT 102.3 H (11.1-13.3) SEC INR 8.4 H* D (0.9-1.1) APTT 62.3 H* D (26.0-36.4) SEC Sodium (135-145) mmol/L Potassium (3.3-5.1) mmol/L Chloride (96-108) mmol/L Carbon Dioxide (22-29) mmol/L Anion Gap (12-20) BUN (9-16) mg/dL Creatinine (0.5-1.4) mg/dL Estim Creat Clear Calc Estimated GFR Random Glucose (60-115) mg/dL Osmolality (281-305) mosm/kg Calcium (8.4-10.2) mg/dL Magnesium (1.6-2.6) mg/dL Total Bilirubin (0.0-1.0) mg/dL Direct Bilirubin (0.0-0.5) mg/dL AST (5-37) U/L ALT (0-40) U/L Alkaline Phosphatase (39-117) U/L Troponin I High Sens (<3.5-35.0) ng/L B-Natriuretic Peptide 128 H (<100) pg/mL Total Protein (6.5-8.0) g/dL Albumin (3.5-5.0) g/dL Lipase (8-78) U/L Urine Color Urine Appearance Urine pH (5.0-9.0) Ur Specific [place] (1.005-1.025) Urine Protein (Neg-Trace) mg/dL Urine Glucose (UA) (Negative) mg/dL Urine Ketones (Negative) mg/dL Urine Blood (Negative) Urine Nitrite (Negative) Ur Leukocyte Esterase (Negative) Urine RBC (0-2) /HPF Urine WBC (0-5) /HPF Ur Squamous Epith Cells (0-2) /HPF Urine Bacteria (None Seen) Hyaline Casts (0-2) /LPF Urine Osmolality (373-1093) mosm/kg Ur Random Sodium 58.0 mmol/L Ur Random Potassium 41.4 mmol/L Ur Random Chloride 69.0 mmol/L Urine Opiates Screen (Not Detect) Urine Fentanyl Screen (Not Detect) Ur Barbiturates Screen (Not Detect) Ur Phencyclidine Scrn (Not Detect) Ur Amphetamines Screen (Not Detect) U Benzodiazepines Scrn (Not Detect) Urine Cocaine Screen (Not Detect) U Marijuana (THC) Screen (Not Detect) Ethyl Alcohol mg/dL 11/17/22 11/17/22 11/17/22 Range/Units 12:50 12:50 12:50 WBC (4.8-10.8) X10*3/uL RBC (4.60-5.80) X10*6/uL Hgb (14.0-18.0) g/dl Hct (42.0-52.0) % MCV (80.0-98.0) fL MCH (27.0-33.0) pg MCHC (31.0-36.0) g/dl RDW (11.0-16.0) % Plt Count (160-400) X10*3/uL MPV (9.4-12.4) fL Immature Gran % (Auto) (0.0-0.4) % Neut % (Auto) (45-73) % Lymph % (Auto) (20-40) % Barron % (Auto) (2-11) % Eos % (Auto) (0-4) % Baso % (Auto) (0-2) % Lymph # (Auto) (1.2-4.9) X10*3/uL Barron # (Auto) (0.1-1.2) X10*3/uL Eos # (Auto) (0.0-0.4) X10*3/uL Baso # (Auto) (0.0-0.2) X10*3/uL Abs Immat Gran (auto) (0.00-0.03) X10*3/uL Absolute Neuts (auto) (2.0-8.3) x10*3/uL Absolute Nucleated RBC (0.0-0.012) X10*3/uL Nucleated RBC % (auto) (0.0-0.2) /100WBC PT (11.1-13.3) SEC INR (0.9-1.1) APTT (26.0-36.4) SEC Sodium (135-145) mmol/L Potassium (3.3-5.1) mmol/L Chloride (96-108) mmol/L Carbon Dioxide (22-29) mmol/L Anion Gap (12-20) BUN (9-16) mg/dL Creatinine (0.5-1.4) mg/dL Estim Creat Clear Calc Estimated GFR Random Glucose (60-115) mg/dL Osmolality (281-305) mosm/kg Calcium (8.4-10.2) mg/dL Magnesium (1.6-2.6) mg/dL Total Bilirubin (0.0-1.0) mg/dL Direct Bilirubin (0.0-0.5) mg/dL AST (5-37) U/L ALT (0-40) U/L Alkaline Phosphatase (39-117) U/L Troponin I High Sens (<3.5-35.0) ng/L B-Natriuretic Peptide (<100) pg/mL Total Protein (6.5-8.0) g/dL Albumin (3.5-5.0) g/dL Lipase (8-78) U/L Urine Color Yellow Urine Appearance Clear Urine pH 5.5 (5.0-9.0) Ur Specific [place] 1.015 (1.005-1.025) Urine Protein 30 (1+) H (Neg-Trace) mg/dL Urine Glucose (UA) Negative (Negative) mg/dL Urine Ketones Trace (Negative) mg/dL Urine Blood Trace H (Negative) Urine Nitrite Negative (Negative) Ur Leukocyte Esterase Negative (Negative) Urine RBC 0-2 (0-2) /HPF Urine WBC 0-5 (0-5) /HPF Ur Squamous Epith Cells 0-2 (0-2) /HPF Urine Bacteria None Seen (None Seen) Hyaline Casts 0-2 (0-2) /LPF Urine Osmolality 363 L (373-1093) mosm/kg Ur Random Sodium mmol/L Ur Random Potassium mmol/L Ur Random Chloride mmol/L Urine Opiates Screen Not Detected (Not Detect) Urine Fentanyl Screen Not Detected (Not Detect) Ur Barbiturates Screen Not Detected (Not Detect) Ur Phencyclidine Scrn Not Detected (Not Detect) Ur Amphetamines Screen Not Detected (Not Detect) U Benzodiazepines Scrn Not Detected (Not Detect) Urine Cocaine Screen Not Detected (Not Detect) U Marijuana (THC) Screen Not Detected (Not Detect) Ethyl Alcohol mg/dL 11/17/22 11/17/22 11/17/22 Range/Units 13:32 13:32 13:32 WBC (4.8-10.8) X10*3/uL RBC (4.60-5.80) X10*6/uL Hgb (14.0-18.0) g/dl Hct (42.0-52.0) % MCV (80.0-98.0) fL MCH (27.0-33.0) pg MCHC (31.0-36.0) g/dl RDW (11.0-16.0) % Plt Count (160-400) X10*3/uL MPV (9.4-12.4) fL Immature Gran % (Auto) (0.0-0.4) % Neut % (Auto) (45-73) % Lymph % (Auto) (20-40) % [place] % (Auto) (2-11) % Eos % (Auto) (0-4) % Baso % (Auto) (0-2) % Lymph # (Auto) (1.2-4.9) X10*3/uL [place] # (Auto) (0.1-1.2) X10*3/uL Eos # (Auto) (0.0-0.4) X10*3/uL Baso # (Auto) (0.0-0.2) X10*3/uL Abs Immat Gran (auto) (0.00-0.03) X10*3/uL Absolute Neuts (auto) (2.0-8.3) x10*3/uL Absolute Nucleated RBC (0.0-0.012) X10*3/uL Nucleated RBC % (auto) (0.0-0.2) /100WBC PT (11.1-13.3) SEC INR (0.9-1.1) APTT (26.0-36.4) SEC Sodium (135-145) mmol/L Potassium (3.3-5.1) mmol/L Chloride (96-108) mmol/L Carbon Dioxide (22-29) mmol/L Anion Gap (12-20) BUN (9-16) mg/dL Creatinine (0.5-1.4) mg/dL Estim Creat Clear Calc Estimated GFR Random Glucose (60-115) mg/dL Osmolality 254 L (281-305) mosm/kg Calcium (8.4-10.2) mg/dL Magnesium (1.6-2.6) mg/dL Total Bilirubin (0.0-1.0) mg/dL Direct Bilirubin (0.0-0.5) mg/dL AST (5-37) U/L ALT (0-40) U/L Alkaline Phosphatase (39-117) U/L Troponin I High Sens 13.3 (<3.5-35.0) ng/L B-Natriuretic Peptide (<100) pg/mL Total Protein (6.5-8.0) g/dL Albumin (3.5-5.0) g/dL Lipase (8-78) U/L Urine Color Urine Appearance Urine pH (5.0-9.0) Ur Specific [place] (1.005-1.025) Urine Protein (Neg-Trace) mg/dL Urine Glucose (UA) (Negative) mg/dL Urine Ketones (Negative) mg/dL Urine Blood (Negative) Urine Nitrite (Negative) Ur Leukocyte Esterase (Negative) Urine RBC (0-2) /HPF Urine WBC (0-5) /HPF Ur Squamous Epith Cells (0-2) /HPF Urine Bacteria (None Seen) Hyaline Casts (0-2) /LPF Urine Osmolality (373-1093) mosm/kg Ur Random Sodium mmol/L Ur Random Potassium mmol/L Ur Random Chloride mmol/L Urine Opiates Screen (Not Detect) Urine Fentanyl Screen (Not Detect) Ur Barbiturates Screen (Not Detect) Ur Phencyclidine Scrn (Not Detect) Ur Amphetamines Screen (Not Detect) U Benzodiazepines Scrn (Not Detect) Urine Cocaine Screen (Not Detect) U Marijuana (THC) Screen (Not Detect) Ethyl Alcohol < 10 mg/dL 11/17/22 Range/Units 13:32 WBC (4.8-10.8) X10*3/uL RBC (4.60-5.80) X10*6/uL Hgb (14.0-18.0) g/dl Hct (42.0-52.0) % MCV (80.0-98.0) fL MCH (27.0-33.0) pg MCHC (31.0-36.0) g/dl RDW (11.0-16.0) % Plt Count (160-400) X10*3/uL MPV (9.4-12.4) fL Immature Gran % (Auto) (0.0-0.4) % Neut % (Auto) (45-73) % Lymph % (Auto) (20-40) % [place] % (Auto) (2-11) % Eos % (Auto) (0-4) % Baso % (Auto) (0-2) % Lymph # (Auto) (1.2-4.9) X10*3/uL [place] # (Auto) (0.1-1.2) X10*3/uL Eos # (Auto) (0.0-0.4) X10*3/uL Baso # (Auto) (0.0-0.2) X10*3/uL Abs Immat Gran (auto) (0.00-0.03) X10*3/uL Absolute Neuts (auto) (2.0-8.3) x10*3/uL Absolute Nucleated RBC (0.0-0.012) X10*3/uL Nucleated RBC % (auto) (0.0-0.2) /100WBC PT (11.1-13.3) SEC INR (0.9-1.1) APTT (26.0-36.4) SEC Sodium 123 L (135-145) mmol/L Potassium 5.0 (3.3-5.1) mmol/L Chloride 96 (96-108) mmol/L Carbon Dioxide 19 L (22-29) mmol/L Anion Gap 13 (12-20) BUN 8 L (9-16) mg/dL Creatinine 0.91 (0.5-1.4) mg/dL Estim Creat Clear Calc 82.4 Estimated GFR > 60 Random Glucose 101 (60-115) mg/dL Osmolality (281-305) mosm/kg Calcium 8.6 (8.4-10.2) mg/dL Magnesium (1.6-2.6) mg/dL Total Bilirubin (0.0-1.0) mg/dL Direct Bilirubin (0.0-0.5) mg/dL AST (5-37) U/L ALT (0-40) U/L Alkaline Phosphatase (39-117) U/L Troponin I High Sens (<3.5-35.0) ng/L B-Natriuretic Peptide (<100) pg/mL Total Protein (6.5-8.0) g/dL Albumin (3.5-5.0) g/dL Lipase (8-78) U/L Urine Color Urine Appearance Urine pH (5.0-9.0) Ur Specific [place] (1.005-1.025) Urine Protein (Neg-Trace) mg/dL Urine Glucose (UA) (Negative) mg/dL Urine Ketones (Negative) mg/dL Urine Blood (Negative) Urine Nitrite (Negative) Ur Leukocyte Esterase (Negative) Urine RBC (0-2) /HPF Urine WBC (0-5) /HPF Ur Squamous Epith Cells (0-2) /HPF Urine Bacteria (None Seen) Hyaline Casts (0-2) /LPF Urine Osmolality (373-1093) mosm/kg Ur Random Sodium mmol/L Ur Random Potassium mmol/L Ur Random Chloride mmol/L Urine Opiates Screen (Not Detect) Urine Fentanyl Screen (Not Detect) Ur Barbiturates Screen (Not Detect) Ur Phencyclidine Scrn (Not Detect) Ur Amphetamines Screen (Not Detect) U Benzodiazepines Scrn (Not Detect) Urine Cocaine Screen (Not Detect) U Marijuana (THC) Screen (Not Detect) Ethyl Alcohol mg/dL Independent Interpretation I performed an independent interpretation of an: EKG ( my interpretation EKG is atrial sensed ventricular paced at a rate of 100. QTC 541. No STEMI) Radiology Impression Discussion of test interpretation with radiology: I have reviewed the radiologist's reading. External Record Review External record reviewed: Inpatient record, Office record, Outpatient record, Prior outpatient labs, Prior outpatient radiology, Primary care record and Outside ED record Tests considered The following testing was considered but not selected: As above Prescription Management I considered prescription management with: Pain Medication and Antibiotic Chronic Conditions Patient?s care impacted by: Other ( CHF, ETOH dependence,) Social Determinants Patient?s care significantly limited by Social Determinants of Health including: Alcoholism and drug addiction in family, Problems related to primary support group and Other Social Determinant of Health Critical Care Time Critical Care Time Critical Care Time: Yes Total Critical Care Time: 50 Attestation: I have personally provided critical care time exclusive of time spent on separately billable procedures. Time includes review of lab data, radiology results, discussion with consultants, and monitoring for potential decompensation. Intervention performed as documented. Discharge Plan Discharge Clinical Impression: Nausea & vomiting, Hyponatremia, Supratherapeutic INR Patient Disposition: Admitted As Inpatient
[2022-11-17 11:53] LABS: Ethanol 26 mg/dL
[2022-11-17] MEDS: ondansetron HCL 4 MG/2 ML VIAL IVPUSH (11:58)
[2022-11-17 12:22] LABS: Magnesium 1.2 mg/dL (1.6-2.6)
[2022-11-17 12:34] LABS: Prothrombin Time 102.3 SEC (11.1-13.3)
[2022-11-17] MEDS: Magnesium Sulfate/H2O 2 GM/50 ML PIGGYBACK IV ×2 (12:41→17:12)
[2022-11-17 12:45] LABS: INTERNATIONAL NORM RATIO 8.4 (0.9-1.1)
[2022-11-17 12:58] LABS: Appearance Urine Clear; Color Urine Yellow; Glucose Urine UA Negative (Negative); Leukocyte Esterase Urine Negative (Negative); Nitrite Urine Negative (Negative); PH 5.5 (5.0-9.0); Specific Gravity - Urine 1.015 (1.005-1.025); UMIC TRIGGER UACC YES; Urine Blood Trace (Negative); Urine Ketones Trace mg/dL (Negative); Urine Protein 30 (1+) mg/dL (Neg-Trace)
[2022-11-17] MEDS: chlordiazePOXIDE HCl 25 MG CAPSULE 50 MG PO (13:01)
[2022-11-17 13:02] LABS: Bacteria Urine None Seen (None Seen); Hyaline Casts Urine 0-2 /LPF (0-2); RBC Urine 0-2 /HPF (0-2); Squamous Epithelial Cell Urine 0-2 /HPF (0-2); WBC Urine 0-5 /HPF (0-5)
[2022-11-17 13:07] LABS: Amphetamine Screen Urine Not Detected (Not Detect); Barbiturates, Urine Not Detected (Not Detect); Benzodiazepines Screen Urine Not Detected (Not Detect); Cannabinoid Screen Urine Not Detected (Not Detect); Cocaine Screen Urine Not Detected (Not Detect); Fentanyl, urine Not Detected (Not Detect); Opiate Screen Urine Not Detected (Not Detect); Phencyclidine Screen Urine Not Detected (Not Detect)
[2022-11-17 13:10] LABS: Potassium Urine Random 41.4 mmol/L
[2022-11-17 13:13] LABS: Osmolality Urine 363 mosm/kg (373-1093)
[2022-11-17 13:15] LABS: Partial Thromboplastin Time 62.3 SEC (26.0-36.4)
[2022-11-17 13:19] LABS: Alanine Aminotransferase 46 U/L (0-40); Albumin Level 4.1 g/dL (3.5-5.0); Alkaline Phosphatase 80 U/L (39-117); Aspartate Amino Transferase 51 U/L (5-37); Bilirubin Direct 0.2 mg/dL (0.0-0.5); Bilirubin Total 0.4 mg/dL (0.0-1.0); Lipase 15 U/L (8-78); Total Protein 7.4 g/dL (6.5-8.0)
[2022-11-17 13:29] LABS: B Type Natriuretic Peptide 128 pg/mL (<100)
[2022-11-17] MEDS: PHENobarbitaL sodium 130 MG/ML IM ONCE 273 MG IM (13:41)
[2022-11-17 13:53] LABS: Osmolality, Serum 254 mosm/kg (281-305)
[2022-11-17 13:57] LABS: Ethanol < 10 mg/dL
[2022-11-17 13:58] LABS: Anion Gap 13 (12-20); Blood Urea Nitrogen 8 mg/dL (9-16); Calcium 8.6 mg/dL (8.4-10.2); Carbon Dioxide 19 mmol/L (22-29); Chloride 96 mmol/L (96-108); Creatinine Clr Calc Pharmacy 82.4; Estimated Glomerular Filt Rate > 60; Glucose Random 101 mg/dL (60-115); Sodium 123 mmol/L (135-145)
[2022-11-17 14:04] LABS: Troponin-I High Sensitivity 13.3 ng/L (<3.5-35.0)
[2022-11-17] MEDS: Phytonadione (Vit K1) 5 MG in 0.9 % Sodium Chloride 50 ML 50.5 MG IV (14:46)
--- NOTE | 2022-11-17 16:02 | MHC.EDTECH ---
THIS PCT ASSUMED CARE OF PATIENT AT 1500 ,VITALS SIGN TAKEN AND PATIENT BELONGINGS LIST DONE ,PT WATCHING TELEVISION .
--- NOTE | 2022-11-17 16:18 | P.HPHOSP_ITS ---
History of Present Illness Date of Service: 11/17/22 Chief Complaint: chest pain, n/v diarrhea 62-year-old male with past medical history of alcoholic liver disease, cocaine abuse, hypertension, thrombocytopenia, history of intracranial hemorrhage, asthma, aortic valve replacement on Coumadin, presents to the ED with a constellation of sympotoms including chest pain accros the chest that is constant and worse with vomiiting, headache, lighte, lightheadedness, abdominal pain in the epigastric area, nausea vomiting and non-bloody diarrhea. INR is 8.4, no active bleeding, recieved 5 of vitamin K; Sodium is 123. Ethanol was 26, phenobarb protocol started for impending alcohol withdrawal Review of Systems Review of Systems: Gen: no fever Resp: no sob, no cough CV: no chest, no PERDOMO, no leg edema GI: No+ n/v, + abd pain and diarrea Neuro: No confusion [facility] Medical History Alcohol abuse Alcoholic liver disease Chronic systolic CHF (congestive heart failure) Cocaine abuse Coronary artery disease Hypertension Intracranial hemorrhage Pacemaker Short-segment Harrell's esophagus Skull fracture Surgical History Aortic valve replaced H/O aortic valve replacement History of esophagogastroduodenoscopy (EGD) S/P CABG (coronary artery bypass graft) Social History Household Members: None Housing: Apartment Do you presently have visiting nurse or other home services: Yes ([employer]) Alcohol intake: current Alcohol intake frequency: a few times a week Alcohol type: beer Patient Tobacco Use Status: Current everyday Tobacco user Tobacco use type: Cigarette Cigarette Packs Per Day: 0.5 Smoked in Last 30 Days: Yes Patient Interested in Nicotine Replacement: Yes Patient Given Instructions on How to Stop Smoking: Yes Date Education Initiated: 11/17/22 Second Hand Smoke Exposure: No Use of substances other than those prescribed or required for medical reasons: No Substance Use Type: Marijuana Currently Displaying Signs/Symptoms of Drug Intoxication Withdrawal: No Have you been hit, kicked, punched, or otherwise hurt by someone within the past year? If so, by whom?: No Do you feel safe in your current relationship?: Yes Is there a partner from a previous relationship who is making you feel unsafe now?: No Are you made to feel afraid or neglected: No Advance Directives: Yes Advance Directives on File: Yes Advance Directives Date on File: 10/11/21 Do you have thoughts of harming others: None Do you have a plan to hurt others: No Plan Recently lost weight without trying: No How much weight loss: Unsure Eating poorly because of decreased appetite: No Nutrition screen score: 2 Nutrition Risks: No Nutritional Risk Poor oral hygiene: No service: No Current occupational status: unemployed Meds Allergies Allergy/AdvReac Type Severity Reaction Status Date / Time lorazepam [From ATIVAN] AdvReac Severe OPPOSITE Verified 09/28/22 12:20 EFFECT PSYCOTIC EFECTS Active Medications: Current Medications Pharmacy Consult (Consult Rx Etoh Phenob Im/Po) 1 each MISCELLANE ONCE PRN; Protocol PRN Reason: Consult order Phenobarbital (Phenobarbital 15 Mg Tablet) 45 mg PO BID CAMMY; Protocol Stop: 11/19/22 21:01 Phenobarbital (Phenobarbital 30 Mg Tablet) 30 mg PO BID CAMMY Stop: 11/21/22 21:01 Phenobarbital (Phenobarbital 15 Mg Tablet) 15 mg PO DAILY [facility]; Protocol Stop: 11/23/22 09:01 Phenobarbital Sodium (Phenobarbital Sodium 130 Mg/Ml Vial Im Q3hx2) 205.4 mg IM Q3H CAMMY; Protocol Stop: 11/17/22 19:01 Home Medications Medication Instructions Recorded Confirmed Last Taken Type melatonin 5 mg tablet 2 tab PO BEDTIME PRN insomnia 10/18/20 11/17/22 Unknown History amlodipine 2.5 mg tablet 2.5 mg PO DAILY 11/18/20 11/17/22 Unknown History atorvastatin 20 mg tablet 20 mg PO DAILY 11/18/20 11/17/22 Unknown History blood pressure test kit-large #1 ea 11/18/20 06/04/22 Unknown History folic acid 1 mg tablet 1 mg PO DAILY 11/18/20 11/17/22 Unknown History lidocaine 5 % topical patch 1 patch topical DAILY 11/18/20 11/17/22 Unknown History magnesium oxide 400 mg (241.3 mg 800 mg PO BID 11/18/20 11/17/22 Unknown History magnesium) tablet metoprolol succinate 50 mg 50 mg PO DAILY 11/18/20 11/17/22 Unknown History tablet,extended release 24 hr pantoprazole 40 mg tablet,delayed 40 mg PO BID 11/18/20 11/17/22 Unknown History release thiamine HCl (vitamin B1) 100 mg 100 mg PO DAILY 11/18/20 11/17/22 Unknown History tablet zolpidem 10 mg tablet 10 mg PO BEDTIME 12/02/20 11/17/22 10/10/21 History clopidogrel 75 mg tablet 1 tab PO DAILY 10/10/21 11/17/22 Unknown History olanzapine 5 mg tablet 1 tab PO BEDTIME 10/10/21 11/17/22 Unknown History acetaminophen 500 mg tablet 500 mg PO BID PRN Mild Pain (Scale 05/11/22 11/17/22 Unknown History Score 1-4) albuterol sulfate 90 mcg/actuation 2 puff inhalation Q4H PRN 05/11/22 11/17/22 Unknown History aerosol inhaler (Ventolin HFA) Respiratory Distress buspirone 10 mg tablet 10 mg PO TID 05/11/22 11/17/22 Unknown History hydroxyzine pamoate 50 mg capsule 50 mg PO BEDTIME 05/11/22 11/17/22 Unknown History warfarin 5 mg tablet 5 mg PO DAILY 05/11/22 11/17/22 Unknown History sacubitril 24 mg-valsartan 26 mg 1 tab PO BID 06/12/22 11/17/22 Unknown History tablet (Entresto) hydroxyzine pamoate 50 mg capsule 50 mg PO BEDTIME PRN insomnia 11/17/22 11/17/22 Unknown History Physical Exam Vital Signs and Narrative: Vital Signs: Last Vital Signs Temp 99.1 F 11/17/22 15:56 Pulse 84 11/17/22 15:56 Resp 20 11/17/22 15:56 BP 144/69 H 11/17/22 15:56 Pulse Ox 95 11/17/22 15:56 O2 Del Method Room Air 11/17/22 15:56 BMI result Body Mass Index 25.8 Const: Other: Constitutional: Alert, in no distress, overweight. Mental Status: Oriented to person, place and time. Eyes: Pupils are equal, round and reactive to light. Ear, Nose and Throat: Oropharynx clear, mucous membranes moist. Ears and nose without eformities. . Respiratory: Clear to auscultation. No wheezing, rales or rhonchi. Cardiovascular: S1 S2 regular. No murmurs, rubs or gallops. Gastrointestinal: Abdomen soft, non-tender, non-distended. Normal bowel sounds.? Neurologic: Cranial nerves II-XII grossly intact. No focal neurological deficits . Moves all extremities spontaneously.? Skin: No rashes or lesions.? Musculoskeletal: No cyanosis or clubbing. Psychiatric: Normal mood and affect? Results Labs 11/17/22 10:33 11/17/22 13:32 Labs: Laboratory Results - last 24 hr 11/17/22 11/17/22 11/17/22 10:33 10:33 12:05 MCV 81.4 MCH 29.0 MCHC 35.7 RDW 19.1 H Plt Count 243 D MPV 8.8 L Immature Gran % (Auto) 0.2 Neut % (Auto) 78.2 H Lymph % (Auto) 10.3 L [place] % (Auto) 10.6 Eos % (Auto) 0.0 Baso % (Auto) 0.7 Lymph # (Auto) 0.6 L [place] # (Auto) 0.6 Eos # (Auto) 0.0 Baso # (Auto) 0.0 Abs Immat Gran (auto) 0.01 Absolute Neuts (auto) 4.7 Absolute Nucleated RBC 0.000 Nucleated RBC % (auto) 0.0 PT 102.3 H INR 8.4 H* D APTT 62.3 H* D Anion Gap 16 Estim Creat Clear Calc 75.0 Estimated GFR > 60 Random Glucose 103 Osmolality Calcium 9.1 Magnesium 1.2 L* Total Bilirubin 0.4 Direct Bilirubin 0.2 AST 51 H ALT 46 H Alkaline Phosphatase 80 B-Natriuretic Peptide Total Protein 7.4 Albumin 4.1 Lipase 15 Urine Color Urine Appearance Urine pH Ur Specific [place] Urine Protein Urine Glucose (UA) Urine Ketones Urine Blood Urine Nitrite Ur Leukocyte Esterase Urine RBC Urine WBC Ur Squamous Epith Cells Urine Bacteria Hyaline Casts Urine Osmolality Ur Random Sodium Ur Random Potassium Ur Random Chloride Urine Opiates Screen Urine Fentanyl Screen Ur Barbiturates Screen Ur Phencyclidine Scrn Ur Amphetamines Screen U Benzodiazepines Scrn Urine Cocaine Screen U Marijuana (THC) Screen Ethyl Alcohol 26 11/17/22 11/17/22 11/17/22 12:05 12:50 12:50 MCV MCH MCHC RDW Plt Count MPV Immature Gran % (Auto) Neut % (Auto) Lymph % (Auto) [place] % (Auto) Eos % (Auto) Baso % (Auto) Lymph # (Auto) [place] # (Auto) Eos # (Auto) Baso # (Auto) Abs Immat Gran (auto) Absolute Neuts (auto) Absolute Nucleated RBC Nucleated RBC % (auto) PT INR APTT Anion Gap Estim Creat Clear Calc Estimated GFR Random Glucose Osmolality Calcium Magnesium Total Bilirubin Direct Bilirubin AST ALT Alkaline Phosphatase B-Natriuretic Peptide 128 H Total Protein Albumin Lipase Urine Color Urine Appearance Urine pH Ur Specific [place] Urine Protein Urine Glucose (UA) Urine Ketones Urine Blood Urine Nitrite Ur Leukocyte Esterase Urine RBC Urine WBC Ur Squamous Epith Cells Urine Bacteria Hyaline Casts Urine Osmolality 363 L Ur Random Sodium 58.0 Ur Random Potassium 41.4 Ur Random Chloride 69.0 Urine Opiates Screen Urine Fentanyl Screen Ur Barbiturates Screen Ur Phencyclidine Scrn Ur Amphetamines Screen U Benzodiazepines Scrn Urine Cocaine Screen U Marijuana (THC) Screen Ethyl Alcohol 11/17/22 11/17/22 11/17/22 12:50 12:50 13:32 MCV MCH MCHC RDW Plt Count MPV Immature Gran % (Auto) Neut % (Auto) Lymph % (Auto) [place] % (Auto) Eos % (Auto) Baso % (Auto) Lymph # (Auto) [place] # (Auto) Eos # (Auto) Baso # (Auto) Abs Immat Gran (auto) Absolute Neuts (auto) Absolute Nucleated RBC Nucleated RBC % (auto) PT INR APTT Anion Gap Estim Creat Clear Calc Estimated GFR Random Glucose Osmolality Calcium Magnesium Total Bilirubin Direct Bilirubin AST ALT Alkaline Phosphatase B-Natriuretic Peptide Total Protein Albumin Lipase Urine Color Yellow Urine Appearance Clear Urine pH 5.5 Ur Specific [place] 1.015 Urine Protein 30 (1+) H Urine Glucose (UA) Negative Urine Ketones Trace Urine Blood Trace H Urine Nitrite Negative Ur Leukocyte Esterase Negative Urine RBC 0-2 Urine WBC 0-5 Ur Squamous Epith Cells 0-2 Urine Bacteria None Seen Hyaline Casts 0-2 Urine Osmolality Ur Random Sodium Ur Random Potassium Ur Random Chloride Urine Opiates Screen Not Detected Urine Fentanyl Screen Not Detected Ur Barbiturates Screen Not Detected Ur Phencyclidine Scrn Not Detected Ur Amphetamines Screen Not Detected U Benzodiazepines Scrn Not Detected Urine Cocaine Screen Not Detected U Marijuana (THC) Screen Not Detected Ethyl Alcohol < 10 11/17/22 11/17/22 13:32 13:32 MCV MCH MCHC RDW Plt Count MPV Immature Gran % (Auto) Neut % (Auto) Lymph % (Auto) [place] % (Auto) Eos % (Auto) Baso % (Auto) Lymph # (Auto) [place] # (Auto) Eos # (Auto) Baso # (Auto) Abs Immat Gran (auto) Absolute Neuts (auto) Absolute Nucleated RBC Nucleated RBC % (auto) PT INR APTT Anion Gap 13 Estim Creat Clear Calc 82.4 Estimated GFR > 60 Random Glucose 101 Osmolality 254 L Calcium 8.6 Magnesium Total Bilirubin Direct Bilirubin AST ALT Alkaline Phosphatase B-Natriuretic Peptide Total Protein Albumin Lipase Urine Color Urine Appearance Urine pH Ur Specific [place] Urine Protein Urine Glucose (UA) Urine Ketones Urine Blood Urine Nitrite Ur Leukocyte Esterase Urine RBC Urine WBC Ur Squamous Epith Cells Urine Bacteria Hyaline Casts Urine Osmolality Ur Random Sodium Ur Random Potassium Ur Random Chloride Urine Opiates Screen Urine Fentanyl Screen Ur Barbiturates Screen Ur Phencyclidine Scrn Ur Amphetamines Screen U Benzodiazepines Scrn Urine Cocaine Screen U Marijuana (THC) Screen Ethyl Alcohol Imaging Radiologist's Impressions: Impressions Chest X-Ray 11/17/22 13:05 IMPRESSION: No acute cardiopulmonary disease or interval change. Abdomen Ultrasound 11/17/22 13:50 IMPRESSION: 1. Slightly echogenic liver without focal lesion. 2. Small cyst lower pole right kidney. 3. Visualized pancreas, gallbladder, CBD and the right kidney is unremarkable. Head CT 11/17/22 14:36 IMPRESSION: No acute intracranial process. Encephalomalacia in the right temporal lobe and a small area in the left temporal lobe from previous intraparenchymal hemorrhages. Left parietal craniotomy from previous intervention. Interval chronic bilateral maxillary sinus inflammatory changes. Assessment and Plan (1) Nausea & vomiting: Status: Acute (2) Hyponatremia: Status: Acute (3) Supratherapeutic INR: Status: Acute Plan 62-year-old male with past medical history of alcoholic liver disease, cocaine abuse, hypertension, thrombocytopenia, history of intracranial hemorrhage, asthma, aortic valve replacement on Coumadin, presents to the ED with a constellation of sympotoms including chest pain accros the chest that is constant and worse with vomiiting, headache, lightheadedness, abdominal pain in the epigastric area, nausea vomiting and non-bloody diarrhea. INR is 8.4, no active bleeding, recieved 5 of vitamin K; Sodium is 123. #Chest pain--very atypical and I think associated with peristent nausea and vomitting #Hyponatremia--acute on chronic likely hypovolemic, should improve with IVF, frequent check #Abdominal pain/epigastric pain, suspect related to alcoholic gastritis, IV Pepcid and oral PPI tomorrow #Coagulopathy from coumadin, given vitamin K, will closely monitor INR #Hypomagnesemia--IV Mag #Mechanical aortic valve, anticoagulation with coumain admission for at least 2 midnights for hypOnatremia, chest pain, and impending alcohol withdrawal Time Spent With Patient Time: Total time managing care of this patient today ____ minutes. Quality Stroke Does the patient have a stroke diagnosis?: No VTE Prior VTE?: No VTE Risk Level:: Medical - low VTE Device Contraindication: Treatment Not Indicated VTE Drug Contraindication: Treatment Not Indicated
[2022-11-17] MEDS: PHENobarbitaL sodium 130 MG/ML VIAL IM Q3Hx2 205.4 MG IM ×2 (16:21→19:28)
--- NOTE | 2022-11-17 16:55 | PHA.MEDREC ---
Pharmacy Consult ? Medication Reconciliation Pharmacy has completed the medication reconciliation. Patient get [facility] from [facility] pharmacy. Patient reports his medications ahve no changed. Recieved list from pharmacy. Patient reported his warfarin dose as 5 mg every day. Nancy Reyes, PharmD
[2022-11-17] MEDS: Famotidine/PF 20 MG/2 ML VIAL IVPUSH (17:02)
[2022-11-17] MEDS: 0.9 % Sodium Chloride 1,000 ML 75 ML IVCONT (17:02)
[2022-11-17 18:37] LABS: Sodium 128 mmol/L (135-145)
--- NOTE | 2022-11-17 19:17 | MHC.EDTECH ---
PATIENT ATE 100 % OF DINNER ,DRANK 360 ML FLUIDS .
--- NOTE | 2022-11-17 20:16 | PC.NURSE ---
Pt alert and oriented, given IM phenobarb by this RN. Tolerating well. Ciwa scale is 2 for mild headache and tremor felt at finger tips. Pt ate 2 sandwiches and ambulated to the bathroom. NS running at 75/hr through #20 r-upper arm. A paced on tele in the 70's. VSS. Report given to Michelle on [facility]MC pt going to 473, transporter notified.
[2022-11-17] MEDS: Acetaminophen 325 MG TABLET 650 MG PO (22:03)
[2022-11-17] MEDS: Melatonin 3 MG TABLET 6 MG PO (22:04)
[2022-11-17] MEDS: 0.9 % Sodium Chloride Flush 3 ML SYRINGE IVFLUSH (22:09)
[2022-11-18 03:19] VITALS: BP 124/69; PULSE 91; RESP 18; TEMP 36.7; O2SAT 97
[2022-11-18] MEDS: Acetaminophen 325 MG TABLET 650 MG PO (04:26)
[2022-11-18] MEDS: 0.9 % Sodium Chloride 1,000 ML 75 ML IVCONT (05:29)
[2022-11-18 07:17] LABS: INTERNATIONAL NORM RATIO 1.2 (0.9-1.1); Prothrombin Time 14.8 SEC (11.1-13.3)
[2022-11-18 07:32] LABS: Anion Gap 13 (12-20); Blood Urea Nitrogen 11 mg/dL (9-16); Carbon Dioxide 23 mmol/L (22-29); Chloride 101 mmol/L (96-108); Creatinine Clr Calc Pharmacy 82.4; Estimated Glomerular Filt Rate > 60; Glucose Random 86 mg/dL (60-115); Potassium 4.8 mmol/L (3.3-5.1); Sodium 132 mmol/L (135-145)
[2022-11-18 07:47] VITALS: BP 122/61; PULSE 78; RESP 20; TEMP 36.2; O2SAT 96
[2022-11-18] MEDS: PHENobarbitaL 15 MG TABLET 45 MG PO (08:22)
[2022-11-18] MEDS: Thiamine HCL 100 MG TABLET PO (08:22)
[2022-11-18] MEDS: busPIRone HCl 10 MG TABLET PO ×2 (08:22→15:53)
[2022-11-18] MEDS: Omeprazole 20 MG CAPSULE.DR PO (08:23)
[2022-11-18] MEDS: Clopidogrel Bisulfate 75 MG TABLET PO (08:23)
[2022-11-18] MEDS: Atorvastatin Calcium 20 MG TABLET PO (08:23)
[2022-11-18] MEDS: Lidocaine 4 % Patch ADH..PATCH 1 PATCH TRANSDERMA (08:23)
[2022-11-18] MEDS: 0.9 % Sodium Chloride Flush 3 ML SYRINGE IVFLUSH ×2 (08:23→15:55)
[2022-11-18] MEDS: amLODIPine Besylate 2.5 MG TABLET PO (08:23)
[2022-11-18] MEDS: Sacubitril/Valsartan 24/26 1 TAB TABLET PO (08:23)
[2022-11-18] MEDS: Metoprolol Succinate ER 50 MG TAB.ER.24H PO (08:23)
[2022-11-18] MEDS: Folic Acid 1 MG TABLET PO (08:23)
[2022-11-18] MEDS: Magnesium Oxide 400 MG TABLET 800 MG PO (08:23)
--- NOTE | 2022-11-18 09:43 | MHC.CM.PN ---
CM met with Patient at bedside with Polish translation assistance. 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 Patient has a [employer] 1hour/day M-F and home/resume said services is the goal. CM has initiated and will follow for dc planning. PCP is from [facility] and Sister/Elizabeth is the HCP.
--- NOTE | 2022-11-18 11:13 | P.PNIM_ITS ---
Subjective Subjective Date of Service: 11/18/22 Interval History: He is feeling better this morning, no n/v, INR has dropped to 1.2 Physical Exam Vital Signs: Vital Signs: Last Vital Signs Temp 97.2 F 11/18/22 07:47 Pulse 78 11/18/22 07:47 Resp 20 11/18/22 07:47 BP 122/61 11/18/22 07:47 Pulse Ox 96 11/18/22 07:47 O2 Del Method Room Air 11/18/22 07:47 BMI result Body Mass Index 26.0 Const: Other: General: AO X 3, no acute distress Resp: CTA bilateral CVS: S1,S2,RRR GI: +BS, NT, no distention Skin: No rash Neuro: motor grossly intact Psych: appropriate affect Objective Data Active Medications Acetaminophen (Acetaminophen 325 Mg Tablet) 650 mg PO Q6H PRN PRN Reason: Pain, Mild (Pain Scale 1-3) Last Admin: 11/18/22 04:26 Dose: 650 mg Documented By: JESS Albuterol Sulfate (Albuterol Sulfate 90 Mcg 8 Gm Inhaler) 2 puff INHALE Q4H PRN PRN Reason: Respiratory Distress Amlodipine Besylate (Amlodipine Besylate 2.5 Mg Tablet) 2.5 mg PO DAILY [facility]; Protocol Last Admin: 11/18/22 08:23 Dose: 2.5 mg Documented By: LUCIAN Atorvastatin Calcium (Atorvastatin Calcium 20 Mg Tablet) 20 mg PO DAILY [facility] Last Admin: 11/18/22 08:23 Dose: 20 mg Documented By: LUCIAN Buspirone HCl (Buspirone Hcl 10 Mg Tablet) 10 mg PO TID [facility] Last Admin: 11/18/22 08:22 Dose: 10 mg Documented By: LUCIAN Clopidogrel Bisulfate (Clopidogrel Bisulfate 75 Mg Tablet) 75 mg PO DAILY [facility] Last Admin: 11/18/22 08:23 Dose: 75 mg Documented By: LUCIAN Enoxaparin Sodium (Enoxaparin Sodium 80 Mg/0.8 Ml Syringe) 80 mg 1 mg/kg (80 mg) SUBCUT Q12H [facility] Folic Acid (Folic Acid 1 Mg Tablet) 1 mg PO DAILY [facility] Last Admin: 11/18/22 08:23 Dose: 1 mg Documented By: LUCIAN Hydroxyzine HCl (Hydroxyzine Hcl 50 Mg Tablet) 50 mg PO BEDTIME [facility] Hydroxyzine HCl (Hydroxyzine Hcl 50 Mg Tablet) 50 mg PO BEDTIME PRN PRN Reason: insomnia Lidocaine (Lidocaine 4 % Patch Adh..Patch) 1 patch TRANSDERMA DAILY [facility] Last Admin: 11/18/22 08:23 Dose: 1 patch Documented By: LUCIAN Magnesium Oxide (Magnesium Oxide 400 Mg Tablet) 800 mg PO BID [facility] Last Admin: 11/18/22 08:23 Dose: 800 mg Documented By: LUCIAN Melatonin (Melatonin 3 Mg Tablet) 6 mg PO BEDTIME PRN PRN Reason: Insomnia Last Admin: 11/17/22 22:04 Dose: 6 mg Documented By: JESS Melatonin (Melatonin 3 Mg Tablet) 9 mg PO BEDTIME PRN PRN Reason: insomnia Metoprolol Succinate (Metoprolol Succinate Er 50 Mg Tab.Er.24h) 50 mg PO DAILY [facility]; Protocol Last Admin: 11/18/22 08:23 Dose: 50 mg Documented By: LUCIAN Olanzapine (Olanzapine 5 Mg Tablet) 5 mg PO BEDTIME [facility] Omeprazole (Omeprazole 20 Mg Capsule.Dr) 20 mg PO BID@0630,1630 [facility] Last Admin: 11/18/22 08:23 Dose: 20 mg Documented By: LUCIAN Ondansetron HCl (Ondansetron Hcl 4 Mg/2 Ml Vial) 4 mg IVPUSH Q8H PRN PRN Reason: Nausea and Vomiting Oxycodone HCl (Oxycodone Hcl Immed Release 5 Mg Tablet) 5 mg PO Q8H PRN PRN Reason: moderate pain (scale score 5-6) Pharmacy Consult (Consult Rx Etoh Phenob Im/Po) 1 each MISCELLANE ONCE PRN; Protocol PRN Reason: Consult order Phenobarbital (Phenobarbital 15 Mg Tablet) 45 mg PO BID [facility]; Protocol Stop: 11/19/22 21:01 Last Admin: 11/18/22 08:22 Dose: 45 mg Documented By: LUCIAN Phenobarbital (Phenobarbital 30 Mg Tablet) 30 mg PO BID [facility] Stop: 11/21/22 21:01 Phenobarbital (Phenobarbital 15 Mg Tablet) 15 mg PO DAILY [facility]; Protocol Stop: 11/23/22 09:01 Sacubitril/Valsartan (Sacubitril/Valsartan 1 Tab Tablet) 1 tab PO BID [facility]; Protocol Last Admin: 11/18/22 08:23 Dose: 1 tab Documented By: LUCIAN Sodium Chloride (0.9 % Sodium Chloride Flush 3 Ml Syringe) 3 ml IVFLUSH QSHIFT [facility] Last Admin: 11/18/22 08:23 Dose: 3 ml Documented By: LUCIAN Thiamine HCl (Thiamine Hcl 100 Mg Tablet) 100 mg PO DAILY [facility] Last Admin: 11/18/22 08:22 Dose: 100 mg Documented By: LUCIAN Warfarin Sodium (Warfarin Sodium 5 Mg Tablet) 5 mg PO DAILY@1800 [facility] Zolpidem Tartrate (Zolpidem Tartrate 5 Mg Tablet) 5 mg PO BEDTIME [facility] Labs 11/17/22 10:33 11/18/22 06:48 Labs: Laboratory Results - last 24 hr 11/17/22 11/17/22 11/17/22 10:33 12:05 12:05 PT 102.3 H INR 8.4 H* D APTT 62.3 H* D Anion Gap Estim Creat Clear Calc Estimated GFR Random Glucose Osmolality Calcium Magnesium 1.2 L* Total Bilirubin 0.4 Direct Bilirubin 0.2 AST 51 H ALT 46 H Alkaline Phosphatase 80 B-Natriuretic Peptide 128 H Total Protein 7.4 Albumin 4.1 Lipase 15 Urine Color Urine Appearance Urine pH Ur Specific [place] Urine Protein Urine Glucose (UA) Urine Ketones Urine Blood Urine Nitrite Ur Leukocyte Esterase Urine RBC Urine WBC Ur Squamous Epith Cells Urine Bacteria Hyaline Casts Urine Osmolality Ur Random Sodium Ur Random Potassium Ur Random Chloride Urine Opiates Screen Urine Fentanyl Screen Ur Barbiturates Screen Ur Phencyclidine Scrn Ur Amphetamines Screen U Benzodiazepines Scrn Urine Cocaine Screen U Marijuana (THC) Screen Ethyl Alcohol 26 11/17/22 11/17/22 11/17/22 12:50 12:50 12:50 PT INR APTT Anion Gap Estim Creat Clear Calc Estimated GFR Random Glucose Osmolality Calcium Magnesium Total Bilirubin Direct Bilirubin AST ALT Alkaline Phosphatase B-Natriuretic Peptide Total Protein Albumin Lipase Urine Color Yellow Urine Appearance Clear Urine pH 5.5 Ur Specific [place] 1.015 Urine Protein 30 (1+) H Urine Glucose (UA) Negative Urine Ketones Trace Urine Blood Trace H Urine Nitrite Negative Ur Leukocyte Esterase Negative Urine RBC 0-2 Urine WBC 0-5 Ur Squamous Epith Cells 0-2 Urine Bacteria None Seen Hyaline Casts 0-2 Urine Osmolality 363 L Ur Random Sodium 58.0 Ur Random Potassium 41.4 Ur Random Chloride 69.0 Urine Opiates Screen Urine Fentanyl Screen Ur Barbiturates Screen Ur Phencyclidine Scrn Ur Amphetamines Screen U Benzodiazepines Scrn Urine Cocaine Screen U Marijuana (THC) Screen Ethyl Alcohol 11/17/22 11/17/22 11/17/22 12:50 13:32 13:32 PT INR APTT Anion Gap Estim Creat Clear Calc Estimated GFR Random Glucose Osmolality 254 L Calcium Magnesium Total Bilirubin Direct Bilirubin AST ALT Alkaline Phosphatase B-Natriuretic Peptide Total Protein Albumin Lipase Urine Color Urine Appearance Urine pH Ur Specific [place] Urine Protein Urine Glucose (UA) Urine Ketones Urine Blood Urine Nitrite Ur Leukocyte Esterase Urine RBC Urine WBC Ur Squamous Epith Cells Urine Bacteria Hyaline Casts Urine Osmolality Ur Random Sodium Ur Random Potassium Ur Random Chloride Urine Opiates Screen Not Detected Urine Fentanyl Screen Not Detected Ur Barbiturates Screen Not Detected Ur Phencyclidine Scrn Not Detected Ur Amphetamines Screen Not Detected U Benzodiazepines Scrn Not Detected Urine Cocaine Screen Not Detected U Marijuana (THC) Screen Not Detected Ethyl Alcohol < 10 11/17/22 11/18/22 11/18/22 13:32 06:48 06:48 PT 14.8 H D INR 1.2 H D APTT Anion Gap 13 13 Estim Creat Clear Calc 82.4 82.4 Estimated GFR > 60 > 60 Random Glucose 101 86 Osmolality Calcium 8.6 9.0 Magnesium Total Bilirubin Direct Bilirubin AST ALT Alkaline Phosphatase B-Natriuretic Peptide Total Protein Albumin Lipase Urine Color Urine Appearance Urine pH Ur Specific [place] Urine Protein Urine Glucose (UA) Urine Ketones Urine Blood Urine Nitrite Ur Leukocyte Esterase Urine RBC Urine WBC Ur Squamous Epith Cells Urine Bacteria Hyaline Casts Urine Osmolality Ur Random Sodium Ur Random Potassium Ur Random Chloride Urine Opiates Screen Urine Fentanyl Screen Ur Barbiturates Screen Ur Phencyclidine Scrn Ur Amphetamines Screen U Benzodiazepines Scrn Urine Cocaine Screen U Marijuana (THC) Screen Ethyl Alcohol Assessment and Plan (1) Nausea & vomiting: Status: Acute (2) Hyponatremia: Status: Acute (3) Supratherapeutic INR: Status: Acute Plan 62-year-old male with past medical history of alcoholic liver disease, cocaine abuse, hypertension, thrombocytopenia, history of intracranial hemorrhage, asthma, aortic valve replacement on Coumadin, presents to the ED with a constellation of sympotoms including chest pain accros the chest that is constant and worse with vomiiting, headache, lightheadedness, abdominal pain in the epigastric area, nausea vomiting and non-bloody diarrhea. INR is 8.4, no active bleeding, recieved 5 of vitamin K; Sodium is 123. #Chest pain--very atypical, trop negative and resolved #Hyponatremia--acute on chronic likely hypovolemic, improved, stop fluid #Abdominal pain/epigastric pain, suspect related to alcoholic gastritis, IV P epcid and oral PPI today #Coagulopathy from coumadin, given vitamin K with overcorrection and now INR low and will start Lovenox for mechanical valvl #Hypomagnesemia--IV Mag, repeat level today #Mechanical aortic valve, anticoagulation with coumain, lovenox resume coumadin admission for at least 2 midnights for hypOnatremia, chest pain, and impending alcohol withdrawal Time Spent With Patient Time: Total time managing care of this patient today ____ minutes. Quality Stroke Does the patient have a stroke diagnosis?: No VTE Prior VTE?: No VTE Risk Level:: Medical - low VTE Device Contraindication: Treatment Not Indicated VTE Drug Contraindication: Treatment Not Indicated
[2022-11-18 11:27] VITALS: BP 117/65; PULSE 76; RESP 20; TEMP 36.3; O2SAT 96
[2022-11-18 11:44] LABS: Magnesium 1.9 mg/dL (1.6-2.6)
[2022-11-18] MEDS: Enoxaparin Sodium 80 MG/0.8 ML SYRINGE SUBCUT (13:19)
[2022-11-18 15:31] VITALS: BP 120/69; PULSE 77; RESP 20; TEMP 36.6; O2SAT 95
--- NOTE | 2022-11-18 16:24 | PM.DS ---
DS: Providers Provider Date of Service: 11/18/22 Date of admission: 11/17/22 16:38 Primary care physician: Nathalie Hsu MD DS: Diagnosis Discharge Diagnosis (1) Nausea & vomiting: Status: Acute (2) Hyponatremia: Status: Acute (3) Supratherapeutic INR: Status: Acute DS: Summary Hospital Course Hospital Course: Admission HPI 62-year-old male with past medical history of alcoholic liver disease, cocaine abuse, hypertension, thrombocytopenia, history of intracranial hemorrhage, asthma, aortic valve replacement on Coumadin, presents to the ED with a constellation of sympotoms including? chest pain accros the chest that is constant and worse with vomiiting, headache, lighte, lightheadedness, abdominal pain in the epigastric area, nausea vomiting? and non-bloody diarrhea. INR is 8.4, no active bleeding, recieved? 5 of vitamin K; Sodium is 123. Ethanol was 26, phenobarb protocol started for impending alcohol withdrawal Hospital course: Patient was admitted overnight, and given IVF to correct sodium level, INR level predictably came down to 1.2 after vitamin K the prior day, given history of mechanical valve, he was giving lovenox. Coumadin to be restarted today. He is adamant about leaving the hospital and would leave AMA if not discharged, he knows self administration of lovenox and has done it before. He will therefore be discharged with Lovenox injection with daily INR checked either at clinic or by nurses until INR is therapeutic between 2 and 3. His nausea and vomitting have resolved, he is tolerating regular diet. He is not withdrawing from alcohol, and alcohol cessation has been discussed with him. Time Spent with Patient Time attestation: Total time managing care of this patient today ____ minutes. Discharge coordination time: Greater than 30 minutes Quality: Safe Use of Opioids Does Pt have an Active Cancer Diagnosis on the Problem List?: No Quality: Stroke Does the patient have a stroke diagnosis?: No Physical Exam Vital Signs: Vital Signs: Last Vital Signs Temp 97.9 F 11/18/22 15:31 Pulse 77 11/18/22 15:31 Resp 20 11/18/22 15:31 BP 120/69 11/18/22 15:31 Pulse Ox 95 11/18/22 15:31 O2 Del Method Room Air 11/18/22 15:31 BMI result Body Mass Index 26.0 DS: Data Data Completed and Pending Completed studies during hospitalization [Text1]: Procedures Detoxification Services for Substance Abuse Treatment (10/18/20) Labs on day of discharge: Laboratory Results - last 24 hr 11/17/22 11/18/22 11/18/22 18:23 06:48 06:48 PT 14.8 H D INR 1.2 H D Sodium 128 L 132 L Potassium 4.8 Chloride 101 Carbon Dioxide 23 Anion Gap 13 BUN 11 Creatinine 0.91 Estim Creat Clear Calc 82.4 Estimated GFR > 60 Random Glucose 86 Calcium 9.0 Magnesium 1.9 Discharge Plan Discharge Anticipated Discharge Date/Time: 11/18/22 16:14 Patient Disposition: Home Health Service Discharge Diagnosis: Alcoholic gastritis, coagulopathy Referrals: Nathalie Hsu MD [Primary Care Provider] - 1 Week Discharge Medications: New enoxaparin 80 mg/0.8 mL Syringe 80 mg subcut Q12H Qty: 9 0RF Rx Instructions: next dose 10 pm tonight Continued melatonin 5 mg tablet 2 tab PO BEDTIME PRN (Reason: insomnia) clopidogrel 75 mg tablet 1 tab PO DAILY olanzapine 5 mg tablet 1 tab PO BEDTIME hydroxyzine pamoate 50 mg Capsule 50 mg PO BEDTIME warfarin 5 mg Tablet 5 mg PO DAILY acetaminophen 500 mg Tablet 500 mg PO BID PRN (Reason: Mild Pain (Scale Score 1-4)) buspirone 10 mg Tablet 10 mg PO TID albuterol sulfate [Ventolin HFA] 90 mcg/actuation Hfa Aerosol Inhaler 2 puff INHALATION Q4H PRN (Reason: Respiratory Distress) oxycodone 5 mg tablet 5 mg PO Q8H PRN (Reason: moderate pain (scale score 5-6)) Qty: 14 0RF Rx Instructions: Partial Fill upon patient request. hydroxyzine pamoate 50 mg capsule 50 mg PO BEDTIME PRN (Reason: insomnia) ondansetron 4 mg tablet,disintegrating 4 mg PO Q8H PRN (Reason: nausea and vomiting) Qty: 10 0RF zolpidem 10 mg tablet 10 mg PO BEDTIME pantoprazole 40 mg tablet,delayed release (DR/EC) 40 mg PO BID magnesium oxide 400 mg (241.3 mg magnesium) tablet 800 mg PO BID amlodipine 2.5 mg tablet 2.5 mg PO DAILY thiamine HCl (vitamin B1) 100 mg tablet 100 mg PO DAILY metoprolol succinate 50 mg tablet extended release 24 hr 50 mg PO DAILY atorvastatin 20 mg tablet 20 mg PO DAILY (DME) blood pressure test kit-large Kit See Rx Instructions .ROUTE DIRECTED Qty: 1 Rx Instructions: As directed folic acid 1 mg tablet 1 mg PO DAILY lidocaine 5 % adhesive patch,medicated 1 patch topical DAILY Protocol: Apply to: Apply to: AFFECTED AREA Entresto 24-26 mg tablet 1 tab PO BID Discharge Orders: Discharge Order (Routine); Ordered 11/18/22 Ordered By: Mookie Arauz Diet: Advance to usual diet Activity on Discharge: As tolerated Stand Alone Forms: Patient Portal Discharge page Care Plan Goals: Recovery from low sodium, nausea vomitting and abnormal coumadin level Health Concerns: low sodium, high fluctuating INR level Plan of Treatment: Avoid drinking excessive water Take Lovenox shots as directed until INR level is 2 to 3 continue taking coumadin as before You need to have your level daily until level is 2 to 3 Go to clinic tomorrow to have INR level (coumadin level ) check Assessment: see above
--- NOTE | 2022-11-19 08:11 | MHC.CM.PN ---
Pt was discharged back home yesterday evening with resumption of [facility], D/C summary faxed to Zohra at [facility] this morning.
== END 2022-11-18 17:28 | disposition home health service (06) | DRG 426 ==
LOC: HO.ED 15:35 → HO.EDOVER 16:41 → HO.IMC 19:36
PROVIDERS: Physician Assistant; Admitting Provider Internal Medicine; Emergency Provider Emergency Medicine; PCP Family Medicine; Visit Provider Internal Medicine
DX: E87.1 Hypo-osmolality and hyponatremia (principal); K70.9 Alcoholic liver disease, unspecified; E83.42 Hypomagnesemia; F10.10 Alcohol abuse, uncomplicated; F17.210 Nicotine dependence, cigarettes, uncomplicated; I10 Essential (primary) hypertension; R79.1 Abnormal coagulation profile; F14.11 Cocaine abuse, in remission; J45.909 Unspecified asthma, uncomplicated; K29.20 Alcoholic gastritis without bleeding; E86.1 Hypovolemia; Z95.0 Presence of cardiac pacemaker; Z95.2 Presence of prosthetic heart valve; Z95.1 Presence of aortocoronary bypass graft; Y90.1 Blood alcohol level of 20-39 mg/100 ml; Z71.6 Tobacco abuse counseling; Z79.01 Long term (current) use of anticoagulants; Z79.02 Long term (current) use of antithrombotics/antiplatelets; Z79.899 Other long term (current) drug therapy
CPT/HCPCS: 36415; 70450; 71045; 76705; 80048; 80076; 80307; 81001; 82436; 83690; 83735; 83880; 83930; 83935; 84133; 84295; 84300; 84484; 85025; 85610; 85730; 93005; 99285; J1650; J2405; J2560; J3430; J3475

== ENCOUNTER → 2022-11-17 16:38 | Outpatient (BNV) | payer MEDICAID, SELFPAY | PROVIDERS: Admitting Provider Internal Medicine; Emergency Provider Emergency Medicine; Visit Provider Internal Medicine | DX: R11.2 Nausea with vomiting, unspecified (principal); E87.1 Hypo-osmolality and hyponatremia; R79.1 Abnormal coagulation profile | CPT/HCPCS: 99223; 99239 ==

== ENCOUNTER 2022-11-30 13:49 | Outpatient (REF) | payer MEDICAID, SELFPAY ==
--- NOTE | ~2022-11-30 | XR_ITS ---
EXAMINATION: XR HIP, RIGHT CLINICAL INFORMATION: Chronic pain. COMPARISON: None available. TECHNIQUE: AP and frog-leg lateral views of the right hip. FINDINGS: There is bony demineralization. The right acetabular joint space is well-maintained. The right femoral head is smooth. There is no fracture or dislocation. There is a right pelvic phlebolith. There are atherosclerotic calcifications. XR/XR hip RT min 2V IMPRESSION: Unremarkable right hip.
--- NOTE | ~2022-11-30 | XR_ITS ---
EXAMINATION: XR LUMBOSACRAL SPINE CLINICAL INFORMATION: Chronic right hip pain. COMPARISON: CT lumbar spine dated 10/10/2021; lumbar spine radiographs dated 12/24/2016. TECHNIQUE: AP and lateral views of the lumbar spine were obtained. Lateral views were obtained in flexion, extension, and neutral positions. FINDINGS: There is bony demineralization. There is a mild lumbar rotatory dextroscoliosis. At T9-T10, there is marked disc space narrowing, with vacuum disc phenomenon. There are moderate T12, minimal L1 and mild L2 and L3 anterior wedge compression fractures. These are stable from the prior CT examination. No acute fracture or spondylolisthesis is seen. At L5-S1, there is moderate disc space narrowing. There is multi-level lumbar spondylosis. There is facet arthropathy, most pronounced at L5-S1. There are aortoiliac atherosclerotic calcifications. XR/XR lumbar spine 2-3V IMPRESSION: 1. There are stable multi-level thoracolumbar compression fractures, as detailed. 2. There is moderate degenerative disc disease at L5-S1, with facet arthropathy. 3. There is multi-level level thoracolumbar spondylosis. 4. There is a mild lumbar rotatory dextroscoliosis.
== END 2022-11-30 13:50 | disposition home or self-care (01) ==
LOC: HO.HHCX 13:49
PROVIDERS: Visit Provider Student in an Organized Health Care Education/Training Program
DX: M25.551 Pain in right hip (principal)
CPT/HCPCS: 72100; 73502

== ENCOUNTER 2023-01-14 11:05 | Outpatient (REF) | payer MEDICAID, SELFPAY ==
--- NOTE | ~2023-01-14 | MM_ITS ---
EXAMINATION: BONE DENSITOMETRY CLINICAL INDICATION: History of vertebral fracture. Chronic lower back pain without sciatica. COMPARISON: This is the patient's baseline examination. TECHNIQUE: Using a [employer] DXA System (software version: 13.1) manufactured by [employer], dual-energy x-ray absorptiometry was performed of the lumbar spine and left hip. The images are of good technical quality. Summary results are attached. FINDINGS: AP SPINE L1-L4 (excluding L3): The data of L1-L4 has been changed to exclude the L3 vertebral body, because degenerative sclerosis at this level may cause overestimation of lumbar spine density. BMD 0.998 g/cm2, Z-score -1.5, T-score -1.8, osteopenia. LEFT FEMUR, NECK: BMD 0.859 g/cm2, Z-score -0.7, T-score -1.6, osteopenia. LEFT FEMUR, TOTAL: BMD 0.883 g/cm2, Z-score -1.1, T-score -1.5, osteopenia. IDENTIFIED RISK FACTORS: History of adult fracture. Renal disease. Current smoker. Alcohol (3 or more units per day). Recurrent falls. HISTORY OF FRACTURE: Pelvis. Humerus. MEDICATIONS: None listed. MM/XR DEXA axial skeleton IMPRESSION: 1. DIAGNOSIS: Osteopenia based on the lowest T-score value of -1.8 in the lumbar spine applying World Health Organization criteria. 2. 10-YEAR FRACTURE RISK PREDICTION, FRAX: Major osteoporotic fracture (clinical spine, forearm, hip or shoulder) 7.6%. Hip fracture 2.1%. 3. Treatment Recommendations: NOF guidelines recommend consideration for treatment in postmenopausal women and men age 50 and older presenting with the following: -A hip or vertebral (clinical or morphometric) fracture. -T-score less than or equal to -2.5 at the femoral neck or spine after appropriate evaluation to exclude secondary causes. -Low bone mass at the hip or spine and a 10-year fracture probability by FRAX of greater than or equal to 3% for hip fracture or greater than or equal to 20% for major osteoporotic fracture based on the [place] adapted WHO algorithm. 4. Other Recommendations: All treatment decisions require clinical judgment and consideration of individual patient factors, including patient preferences, comorbidities, previous drug use, risk factors not captured in the FRAX model (e.g. frailty, falls, vitamin D deficiency, increased bone turnover, interval significant decline in bone density) and possible under or overestimation of fracture risk by FRAX. Additional medical evaluation for secondary cause of low bone mineral density may be appropriate. FUTURE SCAN RECOMMENDATION: People with diagnosed cases of osteoporosis or at high risk for fracture should have regular bone mineral density tests. For patients eligible for Medicare, routine testing is allowed once every 2 years. The testing frequency can be increased to one year for patients who have rapidly progressing disease, those who are receiving or discontinuing medical therapy to restore bone mass, or have additional risk factors.
== END 2023-01-14 11:06 | disposition home or self-care (01) ==
LOC: HO.MAMMO 11:05
PROVIDERS: PCP Family Medicine; Visit Provider Student in an Organized Health Care Education/Training Program
DX: Z13.820 Encounter for screening for osteoporosis (principal); Z87.81 Personal history of (healed) traumatic fracture
CPT/HCPCS: 77080

== ENCOUNTER 2023-01-16 14:55 | Emergency (ER) | payer MEDICAID, SELFPAY ==
--- NOTE | ~2023-01-16 | CT_ITS ---
EXAMINATION: CT CHEST WITHOUT CONTRAST CLINICAL INFORMATION: Fall, left-sided rib tenderness, on warfarin. R/O rib fractures, pneumothorax, hemothorax. COMPARISON: 10/10/2021. TECHNIQUE: Multidetector volumetric CT imaging of the chest was done. Axial MIP volume rendering provided. Sagittal and coronal reformatted images were obtained. This CT examination was performed using dose optimization techniques as appropriate, variously including the following: *Automated exposure control *Adjustment of mA and/or kV according to patient size (this includes techniques or standardized protocols for targeted exams where dose is matched to indication/reason for exam; i.e. extremities or head) *Use of iterative reconstruction technique DLP: 321 mGy-cm FINDINGS: LUNGS: Scattered, bilateral groundglass and interstitial lung densities, possibly with a perihilar predominance, however many extending to the lung peripheries. The findings are new compared with most recent prior study dated 10/10/2021. No consolidation. MEDIASTINUM: Status post aortic valve replacement. Severe coronary arterial calcification. Heart upper normal in size to mildly enlarged. Tips of right subclavian pulse generator device leads in right HM and right ventricular apex. 1.2 cm precarinal lymph node (image 20, series 3), not significant changed. CORONARY ARTERY CALCIFICATION: Severe. PLEURA: There is no pleural effusion. No pleural mass or thickening. AXILLA: No lymphadenopathy by size criteria. UPPER ABDOMEN: Small hiatus hernia. OSSEOUS STRUCTURES: Fracture at the lateral aspect of the left eighth rib (image 36, series 7), displaced approximately one half bone shaft's width. Degenerative changes of lower thoracic spine. Mild compression deformity of T12, unchanged. Status post median sternotomy. CT/CT chest wo IV con IMPRESSION: Fracture at the lateral aspect of the left eighth rib. No evidence of pneumothorax or pleural fluid. Scattered, bilateral groundglass and interstitial lung densities, possibly with a perihilar predominance, however many extending to the lung peripheries, new compared with 10/10/2021. Differential diagnosis is extensive and includes, but is not limited to, viral pneumonia, pulmonary edema, etc. Additional findings, as above.
--- NOTE | ~2023-01-16 | CT_ITS ---
EXAMINATION: CT brain without contrast and chest. CLINICAL INDICATION: Chest pain, abdominal pain. Head strike. COMPARISON: CT brain 11/17/2022. TECHNIQUE: Chest 2 views. 5 mm thin axial and reformatted 2 mm thin sagittal and coronal images of brain were obtained without contrast. DLP 379. This CT examination was performed using dose optimization technique as appropriate, variously including the following: Automated exposure control Adjustment of MA and/or KV according to patient size(this includes techniques or standardized protocols for targeted exams where dose is matched to indication/reason for exam; extremities or head. Use of iterative reconstruction techniques. FINDINGS: CHEST: The lungs are well-expanded and clear. Heart size and pulmonary vascularity is normal. There are pacer electrodes in right atrium and right ventricle. There is cardiac valve prosthesis and median sternotomy sutures from previous intervention. There are surgical shmuel overlying the left mid hemithorax likely in the chest wall. No gross bony abnormality seen. Brain: There is no acute intra-axial, extra-axial bleed, masses or midline shift. There is no acute infarction in evolution. There is a right anterior temporal lobe encephalomalacia from previous insult. The lateral ventricles are symmetrical in size and configuration but enlarged. There is a left parietal craniotomy from previous intervention. There is no scalp soft tissue normality. There is mild mucoperiosteal thickening with air-fluid level left maxillary sinus. Rest of the paranasal sinuses and mastoid air cells are well-aerated. CT/CT head/brain wo IV con IMPRESSION: No acute intracranial process seen. No change in left parietal craniotomy and right anterior temporal lobe encephalomalacia.
--- NOTE | 2023-01-16 14:58 | ECG_ITS ---
Test Reason : S/P DIZZINESS Blood Pressure : / mmHG Vent. Rate : 100 BPM Atrial Rate : 100 BPM P-R Int : 134 ms QRS Dur : 190 ms QT Int : 426 ms P-R-T Axes : -10 058 155 degrees QTc Int : 549 ms Atrial-sensed ventricular-paced rhythm Abnormal ECG When compared with ECG of 17-NOV-2022 10:27, No significant change was found Referred By: Generic ED Physician Electronically Signed By:GENESIS WALKER MD
[2023-01-16 14:59] VITALS: BP 91/56; PULSE 109; RESP 17; TEMP 37.3; O2SAT 95; BMI 30.9
--- NOTE | 2023-01-16 15:01 | ED_ITS ---
HPI - Dizziness General Chief Complaint: General Medical Stated Complaint: FELL HAS PACEMAKER HIGH BP DIZZY Time Seen by Provider: 01/16/23 19:56 Source: patient Mode of arrival: ambulatory Limitations: language barrier (Cambodian speaking only, staff interpreter used) History of Present Illness HPI Narrative: 62 yo male with history of pacemaker, alcoholic liver disease, cocaine abuse, hypertension, thrombocytopenia,?history of intracranial hemorrhage, asthma, various esophagus, aortic valve replacement on Coumadin here with complaints of vomiting, diarrhea, chest pain/abdominal pain, dizziness with subsequent fall 2 days ago with head strike and ?LOC. Patient states that on Wednesday he was in his bathroom in a had soap in his eyes. He lost his balance and fell. He states that he struck his left side of his chest on the bathtub and then fell into the bathtub striking his head. He may have had a momentary loss of consciousness but he is not certain. He states that he did scrape his knees and elbows when he got out of the bathtub. He is currently complaining of a constant, left-sided chest pain in the area where he struck the bathtub. The pain is 10/10 is worse with movement and with breathing. He is also complaining of constant, throbbing headache with associated nausea and vomiting. He states whenever he eats or drinks he has diarrhea. The patient does have and aortic valve replacement and is on warfarin. He states that he gets this PT/INR check on Tuesdays. Related Data Home Medications Medication Instructions Recorded Confirmed melatonin 5 mg tablet 2 tab PO BEDTIME PRN insomnia 10/18/20 11/17/22 amlodipine 2.5 mg tablet 2.5 mg PO DAILY 11/18/20 11/17/22 atorvastatin 20 mg tablet 20 mg PO DAILY 11/18/20 11/17/22 blood pressure test kit-large #1 ea 11/18/20 06/04/22 folic acid 1 mg tablet 1 mg PO DAILY 11/18/20 11/17/22 lidocaine 5 % topical patch 1 patch topical DAILY 11/18/20 11/17/22 magnesium oxide 400 mg (241.3 mg 800 mg PO BID 11/18/20 11/17/22 magnesium) tablet metoprolol succinate 50 mg 50 mg PO DAILY 11/18/20 11/17/22 tablet,extended release 24 hr pantoprazole 40 mg tablet,delayed 40 mg PO BID 11/18/20 11/17/22 release thiamine HCl (vitamin B1) 100 mg 100 mg PO DAILY 11/18/20 11/17/22 tablet zolpidem 10 mg tablet 10 mg PO BEDTIME 12/02/20 11/17/22 clopidogrel 75 mg tablet 1 tab PO DAILY 10/10/21 11/17/22 olanzapine 5 mg tablet 1 tab PO BEDTIME 10/10/21 11/17/22 acetaminophen 500 mg tablet 500 mg PO BID PRN Mild Pain (Scale 05/11/22 11/17/22 Score 1-4) albuterol sulfate 90 mcg/actuation 2 puff inhalation Q4H PRN 05/11/22 11/17/22 aerosol inhaler (Ventolin HFA) Respiratory Distress buspirone 10 mg tablet 10 mg PO TID 05/11/22 11/17/22 hydroxyzine pamoate 50 mg capsule 50 mg PO BEDTIME 05/11/22 11/17/22 warfarin 5 mg tablet 5 mg PO DAILY 05/11/22 11/17/22 sacubitril 24 mg-valsartan 26 mg 1 tab PO BID 06/12/22 11/17/22 tablet (Entresto) hydroxyzine pamoate 50 mg capsule 50 mg PO BEDTIME PRN insomnia 11/17/22 11/17/22 Previous Rx's Medication Instructions Recorded oxycodone 5 mg tablet 5 mg PO Q8H PRN moderate pain 05/12/22 (scale score 5-6) #14 tabs ondansetron 4 mg disintegrating 4 mg PO Q8H PRN nausea and 10/21/22 tablet vomiting #10 tabs enoxaparin 80 mg/0.8 mL 80 mg (0.8 mL) subcut Q12H #9 mL 11/18/22 subcutaneous syringe oxycodone 5 mg tablet 5 mg PO Q6H PRN pain #14 tabs 01/16/23 Allergies Allergy/AdvReac Type Severity Reaction Status Date / Time lorazepam [From ATIVAN] AdvReac Severe OPPOSITE Verified 09/28/22 12:20 EFFECT PSYCOTIC EFECTS Review of Systems 2 Review of Systems: Yes all other systems are reviewed and are negative [facility] Past Medical History [facility] Narrative: Social history: The patient smokes 10-12 cigarettes per day. He continues to drink alcohol 2 times a week, he states he drinks 4-5 course lytes per week. He denies drug use. Medical History Intracranial hemorrhage Coronary artery disease Chronic systolic CHF (congestive heart failure) Hypertension Short-segment Harrell's esophagus Pacemaker Skull fracture Alcoholic liver disease Cocaine abuse Alcohol abuse Surgical History S/P CABG (coronary artery bypass graft) H/O aortic valve replacement History of esophagogastroduodenoscopy (EGD) Aortic valve replaced Social History Social History Household Members: None Housing: Apartment Do you presently have visiting nurse or other home services: Yes ([employer]) Alcohol intake: current Alcohol intake frequency: 3 or more drinks per day Alcohol type: beer Patient Tobacco Use Status: Current everyday Tobacco user Tobacco use type: Cigarette Cigarette Packs Per Day: 0.5 Smoked in Last 30 Days: Yes Second Hand Smoke Exposure: No Use of substances other than those prescribed or required for medical reasons: No Substance Use Type: Marijuana Advance Directives: Yes Advance Directives on File: Yes Advance Directives Date on File: 10/11/21 service: No Current occupational status: unemployed Physical Exam 2 Vital Signs: Vital Signs: Last Vital Signs Temp 98.2 F 01/16/23 19:49 Pulse 83 01/16/23 19:52 Resp 18 01/16/23 19:49 BP 96/50 L 01/16/23 19:52 Pulse Ox 94 01/16/23 19:49 O2 Del Method Room Air 01/16/23 19:49 BMI result Body Mass Index 30.9 Vital signs were normal Exam: General: Awake, alert in no distress Head: Normocephalic, tender left scalp with no ecchymosis or hematoma EENT: PERRL, Lids normal, sclera normal, conjunctiva normal, nose normal , ears normal, throat without erythema or exudates Neck: Supple, no adenopathy, trachea midline and nontender Lung: breath sounds symmetric, no wheezing, rales or rhonchi. Patient does have a clicking sounds in the left lung with deep inspiration Chest: symmetric movement, ecchymosis to left lateral chest with significant tenderness with palpation over the area of ecchymosis, no crepitus Heart: regular rate and rhythm, normal S1, S2 no murmurs or rubs Abdomen: soft, non-tender, nondistended, normal bowel sounds Back: no vertebral tenderness, no CVAT Extremities: no deformities, moves all extremities symmetrically, patient does have areas of ecchymosis and abrasion on his extremities from the fall Neuro: Awake, alert, oriented, normal speech, cranial nerves intact, moves all extremities symmetrically Psych: Pleasant, cooperative Course Course Course Narrative: This is a rapid medical exam. deferred additional HPI, ROS, PE to primary provider. 62 yo male with history of pacemaker, alcoholic liver disease, cocaine abuse, hypertension, thrombocytopenia,?history of intracranial hemorrhage, asthma, various esophagus, aortic valve replacement on Coumadin here with complaints of vomiting, diarrhea, chest pain/abdominal pain, dizziness with subsequent fall 2 days ago with head strike and ?LOC. Will obtain labs, EKG, CXR, CT head Medications Administered Discontinued Medications Generic Name Dose Route Start Last Admin Trade Name Freq PRN Reason Stop Dose Admin Oxycodone HCl 5 mg 01/16/23 20:26 01/16/23 20:59 Oxycodone Hcl Immed Release 5 Mg Tablet PO 01/16/23 20:27 5 mg ONCE STA Administration Medical Decision Making Medical Decision Making MDM Narrative: 62 yo male with history of pacemaker, alcoholic liver disease, cocaine abuse, hypertension, thrombocytopenia,?history of intracranial hemorrhage, asthma, various esophagus, aortic valve replacement on Coumadin here with complaints of vomiting, diarrhea, chest pain/abdominal pain, dizziness with subsequent fall on Wednesday (5 days prior to evaluation). Vital signs were unremarkable. Exam did reveal left-sided lateral ecchymosis with palpable tenderness with palpation in this area, there is a clicking sound with auscultation of breath sounds, breath sounds are symmetric . The patient also has tenderness palpation of his left scalp area. Following evaluation was ordered on the patient: CBC, BMP, liver panel, lipase, magnesium, troponin, PT/INR, lipase, high sensitive troponin I, EKG, CT scan of the brain without IV contrast, chest x-ray two view and CT chest without IV contrast 21:35 The patient's laboratory evaluation revealed anemia with an H&H of 11 and 31.8 with a normal MCV-this is chronic. Patient's sodium is low at 126-chronic. Bicarb was low 14. Glucose elevated 119. Magnesium was elevated 1.5. Bilirubin elevated 1.3. AST and ALT elevated 157 and 156. High sensitive troponin I detectable but not elevated at 3.4. Lipase was normal at 16. Urinalysis pending. INR was supratherapeutic at 4.9. The patient did have a detectable troponin therefore I will repeat a troponin now. Patient's low sodium is chronic and the patient's supratherapeutic INR secondary to his Coumadin therapy. CT scan of the head was unremarkable and chest x-ray revealed no acute fracture or bleed. Given his ecchymosis and tenderness the left side of his chest with a clicking sound with auscultation and concerned that he may have fractures that may have been missed on the plain x-ray therefore I ordered a CT scan of the chest without IV contrast. Patient was treated with oxycodone 5 mg orally. 23:16 The patient required a 2nd dose of oxycodone 5 mg orally Repeat troponin was below detectable limits suggesting the patient did not have myocardial infarction/injury as the cause of his pain. CT scan of the chest without IV contrast did reveal and acute fracture of the lateral aspect of the 8th rib with no pneumothorax or hemothorax-this explains the patient's pain. Patient advised to stop taking ibuprofen and Tylenol and was prescribed oxycodone 5 mg every 4-6 hours as needed for pain He was advised to stop drinking since he has alcoholic liver disease He was advised to stop his warfarin for 2 days and to get a repeat INR on Wednesday01/19/2023. Differential Diagnosis Differential Diagnoses: The differential diagnosis associated with the presentation includes Differential diagnosis includes was not limited to skull fracture, intracranial bleed, rib fractures hemothorax, pneumothorax, myocardial infarction, myocardial ischemia Admission/Observation Consideration of admission/observation: Escalation of care including admission/observation considered Lab Data [facility] Lab Attestation statement: I reviewed the patient's lab results. Please see MDM 01/16/23 15:22 01/16/23 15:22 Labs: Lab Results 01/16/23 01/16/23 Range/Units 15:22 20:14 WBC 9.2 (4.8-10.8) X10*3/uL RBC 3.79 L (4.60-5.80) X10*6/uL Hgb 11.2 L (14.0-18.0) g/dl Hct 31.8 L (42.0-52.0) % MCV 83.9 (80.0-98.0) fL MCH 29.6 (27.0-33.0) pg MCHC 35.2 (31.0-36.0) g/dl RDW 16.5 H (11.0-16.0) % Plt Count 195 (160-400) X10*3/uL MPV 9.5 (9.4-12.4) fL Immature Gran % (Auto) 0.4 (0.0-0.4) % Neut % (Auto) 81.1 H (45-73) % Lymph % (Auto) 10.7 L (20-40) % [place] % (Auto) 6.8 (2-11) % Eos % (Auto) 0.7 (0-4) % Baso % (Auto) 0.3 (0-2) % Lymph # (Auto) 1.0 L (1.2-4.9) X10*3/uL [place] # (Auto) 0.6 (0.1-1.2) X10*3/uL Eos # (Auto) 0.1 (0.0-0.4) X10*3/uL Baso # (Auto) 0.0 (0.0-0.2) X10*3/uL Abs Immat Gran (auto) 0.04 H (0.00-0.03) X10*3/uL Absolute Neuts (auto) 7.5 (2.0-8.3) x10*3/uL Absolute Nucleated RBC 0.000 (0.0-0.012) X10*3/uL Nucleated RBC % (auto) 0.0 (0.0-0.2) /100WBC PT 60.3 H D (11.1-13.3) SEC INR 4.9 H D (0.9-1.1) Sodium 126 L (135-145) mmol/L Potassium 4.0 (3.3-5.1) mmol/L Chloride 99 (96-108) mmol/L Carbon Dioxide 14 L (22-29) mmol/L Anion Gap 17 (12-20) BUN 10 (9-16) mg/dL Creatinine 1.00 (0.5-1.4) mg/dL Estim Creat Clear Calc 74.8 Estimated GFR > 60 Random Glucose 119 H (60-115) mg/dL Calcium 8.9 (8.4-10.2) mg/dL Magnesium 1.5 L (1.6-2.6) mg/dL Total Bilirubin 1.3 H (0.0-1.0) mg/dL Direct Bilirubin 0.8 H (0.0-0.5) mg/dL AST 157 H (5-37) U/L ALT 256 H (0-40) U/L Alkaline Phosphatase 107 (39-117) U/L Troponin I High Sens 3.4 D < 2.7 (<3.5-35.0) ng/L Total Protein 7.0 (6.5-8.0) g/dL Albumin 3.7 (3.5-5.0) g/dL Lipase 16 (8-78) U/L Urine Color Yellow Urine Appearance Clear Urine pH 5.5 (5.0-9.0) Ur Specific [place] 1.015 (1.005-1.025) Urine Protein 30 (1+) H (Neg-Trace) mg/dL Urine Glucose (UA) Negative (Negative) mg/dL Urine Ketones Negative (Negative) mg/dL Urine Blood Trace H (Negative) Urine Nitrite Negative (Negative) Ur Leukocyte Esterase Negative (Negative) Urine RBC 0-2 (0-2) /HPF Urine WBC 0-5 (0-5) /HPF Ur Squamous Epith Cells 0-2 (0-2) /HPF Urine Bacteria None Seen (None Seen) Hyaline Casts 0-2 (0-2) /LPF Independent Interpretation I performed an independent interpretation of an: EKG and Plain X-Ray Interpretation: My interpretation patient's one-view chest x-ray is as follows: One-view chest x-ray revealed no acute disease, right-sided pacemaker, wires appear to be intact The EKG done at 15:14 hours is as follows: Paced rhythm with a rate of 100. Radiology Impression Discussion of test interpretation with radiology: I have reviewed the radiologist's reading. Radiologist Impression: CT head/brain wo IV con IMPRESSION: No acute intracranial process seen. No change in left parietal craniotomy and right anterior temporal lobe encephalomalacia. Dictated By: Soto Tripathi MD XR chest 2V with CT Brain IMPRESSION: No acute intracranial process seen. (CT BRAIN) No change in left parietal craniotomy and right anterior temporal lobe encephalomalacia. Dictated By: Soto Tripathi MD CT chest wo IV con IMPRESSION: Fracture at the lateral aspect of the left eighth rib. No evidence of pneumothorax or pleural fluid. Scattered, bilateral groundglass and interstitial lung densities, possibly with a perihilar predominance, however many extending to the lung peripheries, new compared with 10/10/2021. Differential diagnosis is extensive and includes, but is not limited to, viral pneumonia, pulmonary edema, etc. Additional findings, as above. Dictated By: Jefferson Adorno Discharge Plan Discharge Clinical Impression: Abnormal LFTs, Alcohol use disorder, Supratherapeutic INR Fall Qualifiers: Encounter type: initial encounter Qualified Code(s): W19.XXXA - Unspecified fall, initial encounter Closed head injury Qualifiers: Encounter type: initial encounter Qualified Code(s): S09.90XA - Unspecified injury of head, initial encounter Left rib fracture Qualifiers: Encounter type: initial encounter Rib fracture type: single rib Fracture type: closed Qualified Code(s): S22.32XA - Fracture of one rib, left side, initial encounter for closed fracture Patient Disposition: Home, Self-Care Instructions: Rib Fracture (ED), Head Injury (ED) Additional Instructions: The CT scan of your head was normal, there was no skull fracture or bleeding in the brain The CT scan of your chest revealed a fracture/broken bone of your left 8th rib- this explains your pain. Your liver tests were elevated this is caused by your alcohol use, you need to stop drinking otherwise you will developed liver failure. Your PT/INR were elevated at 60.3 and 4.9. Your INR is supposed to be between 2 and 3. I want you to stop taking your Coumadin/warfarin on Wednesday and Wednesday. On 01/19/2023, you need to have your INR recheck and your dose of Coumadin/warfarin on Wednesday will need to be determined by your visiting nurse/provider You cannot take Tylenol because of your liver disease and you cannot take anti- inflammatory medications such as ibuprofen, Advil, Motrin, Aleve, naproxen while your taking warfarin I am prescribing oxycodone 5 mg pills, you can take 1 pill every 4-6 hours as needed for pain. Continue taking your other medications as prescribed Follow-up with your doctor in 2 days. Please return to the emergency department if your symptoms get worse or if you develop any symptoms that are concerning to you. Prescriptions: New oxycodone 5 mg tablet 5 mg PO Q6H PRN (Reason: pain) Qty: 14 0RF Rx Instructions: Patient may request partial refill; Partial Fill upon patient request. No Action melatonin 5 mg tablet 2 tab PO BEDTIME PRN (Reason: insomnia) clopidogrel 75 mg tablet 1 tab PO DAILY olanzapine 5 mg tablet 1 tab PO BEDTIME hydroxyzine pamoate 50 mg Capsule 50 mg PO BEDTIME warfarin 5 mg Tablet 5 mg PO DAILY acetaminophen 500 mg Tablet 500 mg PO BID PRN (Reason: Mild Pain (Scale Score 1-4)) buspirone 10 mg Tablet 10 mg PO TID albuterol sulfate [Ventolin HFA] 90 mcg/actuation Hfa Aerosol Inhaler 2 puff INHALATION Q4H PRN (Reason: Respiratory Distress) oxycodone 5 mg tablet 5 mg PO Q8H PRN (Reason: moderate pain (scale score 5-6)) Qty: 14 0RF Rx Instructions: Partial Fill upon patient request. hydroxyzine pamoate 50 mg capsule 50 mg PO BEDTIME PRN (Reason: insomnia) enoxaparin 80 mg/0.8 mL Syringe 80 mg subcut Q12H Qty: 9 0RF Rx Instructions: next dose 10 pm tonight ondansetron 4 mg tablet,disintegrating 4 mg PO Q8H PRN (Reason: nausea and vomiting) Qty: 10 0RF zolpidem 10 mg tablet 10 mg PO BEDTIME pantoprazole 40 mg tablet,delayed release (DR/EC) 40 mg PO BID magnesium oxide 400 mg (241.3 mg magnesium) tablet 800 mg PO BID amlodipine 2.5 mg tablet 2.5 mg PO DAILY thiamine HCl (vitamin B1) 100 mg tablet 100 mg PO DAILY metoprolol succinate 50 mg tablet extended release 24 hr 50 mg PO DAILY atorvastatin 20 mg tablet 20 mg PO DAILY (DME) blood pressure test kit-large Kit See Rx Instructions .ROUTE DIRECTED Qty: 1 Rx Instructions: As directed folic acid 1 mg tablet 1 mg PO DAILY lidocaine 5 % adhesive patch,medicated 1 patch topical DAILY Protocol: Apply to: Apply to: AFFECTED AREA Entresto 24-26 mg tablet 1 tab PO BID Print Language: Cambodian
[2023-01-16 15:27] LABS: MANUAL DIFF FLAG NO
[2023-01-16 15:28] LABS: Basophils Percent Auto 0.3 % (0-2); Eosinophils Absolute Auto 0.1 X10*3/uL (0.0-0.4); Eosinophils Percent Auto 0.7 % (0-4); Hematocrit 31.8 % (42.0-52.0); Hemoglobin 11.2 g/dl (14.0-18.0); Imm Gran Abs Auto 0.04 X10*3/uL (0.00-0.03); Imm Gran Pct Auto 0.4 % (0.0-0.4); Lymphocytes Percent Auto 10.7 % (20-40); Mean Corpuscular HGB Conc 35.2 g/dl (31.0-36.0); Mean Corpuscular Hemoglobin 29.6 pg (27.0-33.0); Mean Corpuscular Volume 83.9 fL (80.0-98.0); Mean Platelet Volume 9.5 fL (9.4-12.4); Monocytes Absolute Auto 0.6 X10*3/uL (0.1-1.2); Monocytes Percent Auto 6.8 % (2-11); Neutrophils Absolute Auto 7.5 x10*3/uL (2.0-8.3); Neutrophils Percent Auto 81.1 % (45-73); Platelet Count 195 X10*3/uL (160-400); Red Blood Count 3.79 X10*6/uL (4.60-5.80); Red Cell Distribution Width 16.5 % (11.0-16.0); White Blood Count 9.2 X10*3/uL (4.8-10.8)
[2023-01-16 15:36] LABS: INTERNATIONAL NORM RATIO 4.9 (0.9-1.1); Prothrombin Time 60.3 SEC (11.1-13.3)
[2023-01-16 15:57] LABS: Alanine Aminotransferase 256 U/L (0-40); Albumin Level 3.7 g/dL (3.5-5.0); Alkaline Phosphatase 107 U/L (39-117); Anion Gap 17 (12-20); Aspartate Amino Transferase 157 U/L (5-37); Bilirubin Direct 0.8 mg/dL (0.0-0.5); Bilirubin Total 1.3 mg/dL (0.0-1.0); Blood Urea Nitrogen 10 mg/dL (9-16); Calcium 8.9 mg/dL (8.4-10.2); Carbon Dioxide 14 mmol/L (22-29); Chloride 99 mmol/L (96-108); Creatinine Clr Calc Pharmacy 74.8; Estimated Glomerular Filt Rate > 60; Glucose Random 119 mg/dL (60-115); Lipase 16 U/L (8-78); Magnesium 1.5 mg/dL (1.6-2.6); Sodium 126 mmol/L (135-145)
[2023-01-16 16:04] LABS: Troponin-I High Sensitivity 3.4 ng/L (<3.5-35.0)
[2023-01-16 19:49] VITALS: BP 132/52; PULSE 86; RESP 18; TEMP 36.8; O2SAT 94
[2023-01-16 19:50] VITALS: BP 132/52; PULSE 83
[2023-01-16 19:52] VITALS: BP 109/49; BP 96/50; PULSE 83
[2023-01-16 20:29] LABS: Appearance Urine Clear; Color Urine Yellow; Glucose Urine UA Negative (Negative); Leukocyte Esterase Urine Negative (Negative); Nitrite Urine Negative (Negative); PH 5.5 (5.0-9.0); Specific Gravity - Urine 1.015 (1.005-1.025); UMIC TRIGGER UACC YES; Urine Blood Trace (Negative); Urine Ketones Negative (Negative); Urine Protein 30 (1+) mg/dL (Neg-Trace)
[2023-01-16 20:48] LABS: Troponin-I High Sensitivity < 2.7 ng/L (<3.5-35.0)
[2023-01-16] MEDS: oxyCODONE HCl Immed Release 5 MG TABLET PO (20:59)
[2023-01-16 21:08] LABS: Bacteria Urine None Seen (None Seen); Hyaline Casts Urine 0-2 /LPF (0-2); RBC Urine 0-2 /HPF (0-2); Squamous Epithelial Cell Urine 0-2 /HPF (0-2); WBC Urine 0-5 /HPF (0-5)
[2023-01-17] MEDS: oxyCODONE HCl Immed Release 5 MG TABLET PO (00:39)
[2023-01-17 00:42] VITALS: BP 112/69; PULSE 80; RESP 14; TEMP 36.7; O2SAT 97
== END 2023-01-17 00:51 | disposition home or self-care (01) ==
PROVIDERS: Nurse Practitioner Family; Emergency Provider Emergency Medicine Emergency Medical Services; PCP Family Medicine
DX: S22.32XA Fracture of one rib, left side, initial encounter for closed fracture (principal); S09.90XA Unspecified injury of head, initial encounter; W19.XXXA Unspecified fall, initial encounter; Y93.9 Activity, unspecified; Y92.9 Unspecified place or not applicable; Y99.9 Unspecified external cause status; F10.90 Alcohol use, unspecified, uncomplicated; R11.10 Vomiting, unspecified; I10 Essential (primary) hypertension; R19.7 Diarrhea, unspecified; K44.9 Diaphragmatic hernia without obstruction or gangrene; J98.4 Other disorders of lung; R07.9 Chest pain, unspecified; R10.9 Unspecified abdominal pain; D64.9 Anemia, unspecified; R79.89 Other specified abnormal findings of blood chemistry; Z95.0 Presence of cardiac pacemaker; Z79.01 Long term (current) use of anticoagulants; Z79.899 Other long term (current) drug therapy
CPT/HCPCS: 36415; 70450; 71046; 71250; 80048; 80076; 81001; 83690; 83735; 84484; 85025; 85610; 93005; 99285

== ENCOUNTER 2023-02-09 10:36 | Inpatient (IN) | payer MEDICAID, SELFPAY ==
--- NOTE | ~2023-02-09 | CT_ITS ---
Lastly CT head/brain wo IV con CLINICAL INFORMATION: Reason for Exam Fall on coumadin supratherapeutic COMPARISON: No prior CT scan available for comparison. TECHNIQUE: Department standard protocol. This CT examination was performed using dose optimization techniques as appropriate, variously including the following: *Automated exposure control *Adjustment of mA and/or kV according to patient size (this includes techniques or standardized protocols for targeted exams where dose is matched to indication/reason for exam; i.e. extremities or head) *Use of iterative reconstruction technique FINDINGS: CEREBRAL HEMISPHERES: There is encephalomalacia atrophy right temporal lobe, this is most likely sequela of prior brain injury brain infarct. This has not changed from prior exam. BRAIN PARENCHYMA: Normal finley-white matter differentiation. SUBDURAL SPACE: No bleed. BASAL GANGLIA AND PINEAL GLAND: Unremarkable VENTRICLES: Symmetric and normal in size. CEREBELLUM AND BRAINSTEM: No space-occupying mass, hemorrhage or acute infarct. CEREBELLOPONTINE ANGLES: No lesion found. ORBITS: No intraorbital mass. VESSELS: Unremarkable SKULL BASE: Unremarkable INCLUDED SINUSES AT SKULL BASE: Clear SKULL AND SKIN: Postsurgical changes of from prior left craniotomy. CT/CT head/brain wo IV con IMPRESSION: * No CT evidence of intracranial bleed. * Encephalomalacia right temporal lobe, this is most likely sequela of prior brain injury brain infarct. This has not changed from prior exam. * Postsurgical changes from prior left craniotomy.
--- NOTE | ~2023-02-09 | XR_ITS ---
EXAMINATION: XR CHEST 2 VIEW CLINICAL INFORMATION: Pain COMPARISON: 01/16/2023 TECHNIQUE: PA and lateral views of the chest obtained. FINDINGS: Right subclavian pacemaker, poststernotomy and aortic valve replacement changes are again evident. The lungs are clear. There are no pleural effusions. The cardiomedial stable. XR/XR chest 2V IMPRESSION: No acute cardiopulmonary disease or interval change.
--- NOTE | ~2023-02-09 | CT_ITS ---
EXAMINATION: CT ABDOMEN AND PELVIS WITH CONTRAST CLINICAL INFORMATION: Abdominal pain COMPARISON: Ultrasound abdomen 11/17/2022, CT abdomen pelvis 10/10/2021 TECHNIQUE: Multidetector volumetric images were obtained from the superior aspect of the liver through the pubic symphysis following administration 85 mL of Omnipaque 350 intravenous contrast. Sagittal and coronal reformatted images were obtained on the technologist's workstation. Oral contrast: No This CT examination was performed using dose optimization techniques as appropriate, variously including the following: *Automated exposure control *Adjustment of mA and/or kV according to patient size (this includes techniques or standardized protocols for targeted exams where dose is matched to indication/reason for exam; i.e. extremities or head) *Use of iterative reconstruction technique DLP: 569 mGy-cm FINDINGS: LUNG BASES: Status post median sternotomy. Pacemaker wires are present LIVER, GALLBLADDER, AND BILIARY TREE: The liver is normal in size, shape, and attenuation. No focal hepatic lesion or biliary ductal dilatation is present. The gallbladder is unremarkable with no evidence of radiopaque gallstones, gallbladder wall thickening, or obvious pericholecystic inflammatory changes. PANCREAS: Unremarkable. SPLEEN: Unremarkable. A coarse calcification is seen in the spleen. ADRENAL GLANDS: Unremarkable. KIDNEYS AND URETERS: The kidneys are normal in size, shape, and attenuation. There is a single punctate 2 mm calculus present within mid to upper left kidney consistent with a nonobstructing calculus. No hydronephrosis, hydroureter, or additional calculi seen. No perinephric stranding. 2 mm hypodensity present at the lower pole left kidney consistent with a benign Bosniak class one cyst needs no additional imaging or follow-up. BLADDER: Unremarkable. GASTROINTESTINAL TRACT: A small hiatal hernia is present. The small and large bowel are unremarkable. The appendix is unremarkable. ABDOMINAL WALL: No significant hernia is appreciated. LYMPH NODES: No retroperitoneal lymphadenopathy. VASCULAR: Calcific atherosclerotic changes are seen in the aorta and iliofemoral vessels without aneurysm. PELVIC VISCERA: The prostate and seminal vesicles are unremarkable. OSSEOUS STRUCTURES: Mild biconvex thoracolumbar scoliosis is present with degenerative changes seen CT/CT abdomen pelvis w IV con IMPRESSION: 1. A cause for the patient's abdominal pain has not been found. 2. Incidental note made of a single punctate 2 mm nonobstructing left renal calculus, small hiatal hernia and other findings described above. Fleischner guidelines were followed.
[2023-02-09 11:11] VITALS: BP 120/73; PULSE 95; RESP 20; TEMP 36.7; O2SAT 95; BMI 29.2
--- NOTE | 2023-02-09 11:13 | ED_ITS ---
HPI - General Adult General Chief complaint: Abdominal Pain Stated complaint: Diarrhea/HBP Time Seen by Provider: 02/09/23 12:50 Source: patient and information assurance Mode of arrival: ambulatory History of Present Illness HPI narrative: 63-year-old male arrives with complaints of abdominal pain and nausea and vomiting since Wednesday with bloody stools when he wipes after going to the bathroom, he reports being on chronic anticoagulation. Patient states that he fell on Wednesday and hit his head as well as is left upper arm, he reports he does not drink every day. Related Data Home Medications Medication Instructions Recorded Confirmed melatonin 5 mg tablet 2 tab PO BEDTIME PRN insomnia 10/18/20 02/09/23 amlodipine 2.5 mg tablet 2.5 mg PO DAILY 11/18/20 02/09/23 atorvastatin 20 mg tablet 20 mg PO DAILY 11/18/20 02/09/23 blood pressure test kit-large #1 ea 11/18/20 02/09/23 folic acid 1 mg tablet 1 mg PO DAILY 11/18/20 02/09/23 lidocaine 5 % topical patch 1 patch topical DAILY 11/18/20 02/09/23 magnesium oxide 400 mg (241.3 mg 800 mg PO BID 11/18/20 02/09/23 magnesium) tablet metoprolol succinate 50 mg 50 mg PO DAILY 11/18/20 02/09/23 tablet,extended release 24 hr pantoprazole 40 mg tablet,delayed 40 mg PO BID 11/18/20 02/09/23 release thiamine HCl (vitamin B1) 100 mg 100 mg PO DAILY 11/18/20 02/09/23 tablet zolpidem 10 mg tablet 10 mg PO BEDTIME PRN Insomnia 12/02/20 02/09/23 clopidogrel 75 mg tablet 1 tab PO DAILY 10/10/21 02/09/23 olanzapine 5 mg tablet 1 tab PO BEDTIME 10/10/21 02/09/23 acetaminophen 500 mg tablet 500 mg PO BID PRN Mild Pain (Scale 05/11/22 02/09/23 Score 1-4) albuterol sulfate 90 mcg/actuation 2 puff inhalation Q4H PRN 05/11/22 02/09/23 aerosol inhaler (Ventolin HFA) Respiratory Distress buspirone 10 mg tablet 10 mg PO TID 05/11/22 02/09/23 warfarin 5 mg tablet 5 mg PO DAILY 05/11/22 02/09/23 sacubitril 24 mg-valsartan 26 mg 1 tab PO BID 06/12/22 02/09/23 tablet (Entresto) hydroxyzine pamoate 50 mg capsule 50 mg PO BEDTIME PRN insomnia 11/17/22 02/09/23 budesonide-formoterol HFA 160 2 puff inhalation BID 02/09/23 02/09/23 mcg-4.5 mcg/actuation aerosol inhaler (Symbicort) Previous Rx's Medication Instructions Recorded ondansetron 4 mg disintegrating 4 mg PO Q8H PRN nausea and 10/21/22 tablet vomiting #10 tabs oxycodone 5 mg tablet 5 mg PO Q6H PRN pain #14 tabs 01/16/23 Allergies Allergy/AdvReac Type Severity Reaction Status Date / Time lorazepam [From ATIVAN] AdvReac Severe OPPOSITE Verified 02/09/23 11:15 EFFECT PSYCOTIC EFECTS Review of Systems 2 Review of Systems: Pertinent positives and negatives as stated in HPI [facility] Past Medical History Source: nursing notes reviewed Medical History Intracranial hemorrhage Coronary artery disease Chronic systolic CHF (congestive heart failure) Hypertension Short-segment Harrell's esophagus Pacemaker Skull fracture Alcoholic liver disease Cocaine abuse Alcohol abuse Surgical History S/P CABG (coronary artery bypass graft) H/O aortic valve replacement History of esophagogastroduodenoscopy (EGD) Aortic valve replaced Social History Social History Household Members: None Housing: Apartment Do you presently have visiting nurse or other home services: Yes ([employer]) Alcohol intake: current Alcohol intake frequency: a few times a week Alcohol type: beer Patient Tobacco Use Status: Current everyday Tobacco user Tobacco use type: Cigarette Cigarette Packs Per Day: 0.5 Smoked in Last 30 Days: Yes Second Hand Smoke Exposure: No Use of substances other than those prescribed or required for medical reasons: No Substance Use Type: Marijuana Advance Directives: Yes Advance Directives on File: Yes Advance Directives Date on File: 10/11/21 service: No Current occupational status: unemployed Physical Exam ED Vital Signs: Vital Signs - 24 hr 02/09/23 11:11 02/09/23 12:20 02/09/23 14:42 Temperature 98.1 F Pulse Rate 95 85 94 Respiratory Rate 20 22 H 27 H Blood Pressure 120/73 137/85 139/81 Pulse Oximetry 95 94 Oxygen Delivery Method Room Air Room Air BMI result Body Mass Index 29.2 VITAL SIGNS: Reviewed. GENERAL: Well developed, well nourished, in no acute distress. HEAD: Normocephalic/atraumatic EYES: PERRLA, EOMI, scleral icterus EARS: Ext canals without abnormality NOSE: Nares patent bilateral OROPHARYNX: no oral lesions noted, posterior pharynx clear NECK: Supple, no adenopathy LUNGS: Normal breath sounds. No adventitious sounds or accessory muscle use. SpO2<95> CARDIOVASCULAR: Regular rate and rhythm without noted murmurs, no JVD or lower extremity edema. ABDOMEN: Soft, diffusely tender without rebound, non-distended with bowel sounds. EMANUEL: Excoriations in the don anal area without inflamed hemorrhoids, scant brown stool on tip of finger without gross blood and not melanotic MUSCULOSKELETAL: No tenderness, deformities, or effusions noted on gross inspection. EXTREMITIES: No cyanosis, clubbing or edema. SKIN: Inspection of the skin reveals no rashes NEUROLOGIC: Alert and oriented x 4. Strength and sensation to light touch were grossly intact x 4. Course Course Course Narrative: RME performed by Karly Quinn PA-C. Patient is a 63 year old assigned male at presenting to the emergency department with chest pain, dark stools, nausea, and vomiting. Patient has been feeling overall unwell for the last few days. Patient is coumadin. Patient is a smoker and admits to alcohol use. Labs, imaging, and swabs ordered. Patient placed back in the waiting room pending room availability and results. Medications Administered Generic Name Dose Route Start Last Admin Trade Name Freq PRN Reason Stop Dose Admin Phenobarbital Sodium 287.3 mg 02/09/23 17:30 02/09/23 18:14 Phenobarbital Sodium 130 Mg/Ml Vial Im Q3hx2 IM 02/09/23 20:31 287.3 mg Q3H CAMMY Administration Protocol Discontinued Medications Generic Name Dose Route Start Last Admin Trade Name Freq PRN Reason Stop Dose Admin Magnesium Sulfate 2 gm in 50 mls @ 150 mls/hr 02/09/23 13:38 02/09/23 14:10 Magnesium Sulfate/H2o IV 02/09/23 13:57 Infused ONCE ONE Infusion Phytonadione 10 mg/ Sodium 51 mls @ 51 mls/hr 02/09/23 14:10 02/09/23 17:10 Chloride IV 02/09/23 15:09 Infused ONCE ONE Infusion Sodium Chloride 1,000 mls @ 999 mls/hr 02/09/23 14:15 02/09/23 17:10 Ns IV 02/09/23 15:15 999 mls/hr .Q1H1M CAMMY Administration Iohexol 100 ml 02/09/23 15:49 02/09/23 15:50 Iohexol 350 Mg/Ml 100 Ml Infus..Btl IV 02/09/23 15:50 85 ml ONCE ONE Administration Phenobarbital Sodium 382.2 mg 02/09/23 14:30 02/09/23 14:35 Phenobarbital Sodium 130 Mg/Ml Im Once IM 02/09/23 14:31 382.2 mg ONCE ONE Administration Protocol Medical Decision Making Medical Decision Making MDM Narrative: 63-year-old male with history and clinical presentation very concerning as he lives at home by himself, sustained a fall on Wednesday and although he does not present with any focal findings his INR is supratherapeutic at 9, patient also states significant abdominal pain with nausea and vomiting since Wednesday that is likely prevented him from consuming alcohol and he is currently scoring a CIWA of 24. Patient was started on a phenobarb protocol. On review of all investigations there is no leukocytosis or left shift, there is no thrombocytopenia and patient has stable normocytic anemia. Coagulation studies demonstrate grossly abnormal values and will initiate gradual reversal with vitamin K due to concerns of possible intra-abdominal bleeding and patient reports of bleeding although no evidence of acute anemia on lab work suspect that this may be due in part to suspected dehydration from 2 days of nausea and vomiting. Magnesium level is noted to be low and will be repleted with 2 g of magnesium sulfate, awaiting lipase levels as I do suspect the possibility of pancreatitis as well. Guaiac is positive. Urinalysis is negative for infection or hematuria. Viral testing negative for influenza/RSV/COVID. Chest x-ray does not demonstrate any infiltrate or venous congestion and otherwise my interpretation is in agreement with radiology's impression. Unless there is evidence of acute bleeding, patient does not require immediate reversal of INR. Signed out to Dr Stewart - follow-up CT scans Patient had CT and abdominal CT negative for acute patient does drink beer initial CIWA score was 24 started on phenobarb protocol. Will admit patient for alcohol withdrawal and supratherapeutic INR with slight GI bleed H&H stable at this time Differential Diagnosis Differential Diagnoses: The differential diagnosis associated with the presentation includes Please see the discussion above Admission/Observation Consideration of admission/observation: Escalation of care including admission/observation considered Please see the discussion above Consult Healthcare Provider Management of the patient was discussed with: Hospitalist Please see the discussion above Lab Data MDM Lab Attestation statement: I reviewed the patient's lab results. Please see the discussion above 02/09/23 12:14 02/09/23 13:04 Labs: Lab Results 02/09/23 02/09/23 02/09/23 Range/Units 12:14 12:22 13:04 WBC 5.7 (4.8-10.8) X10*3/uL RBC 4.33 L (4.60-5.80) X10*6/uL Hgb 12.9 L (14.0-18.0) g/dl Hct 37.3 L (42.0-52.0) % MCV 86.1 (80.0-98.0) fL MCH 29.8 (27.0-33.0) pg MCHC 34.6 (31.0-36.0) g/dl RDW 17.1 H (11.0-16.0) % Plt Count 295 D (160-400) X10*3/uL MPV 8.8 L (9.4-12.4) fL Immature Gran % (Auto) 0.4 (0.0-0.4) % Neut % (Auto) 67.5 (45-73) % Lymph % (Auto) 21.2 (20-40) % [place] % (Auto) 10.2 (2-11) % Eos % (Auto) 0.2 (0-4) % Baso % (Auto) 0.5 (0-2) % Lymph # (Auto) 1.2 (1.2-4.9) X10*3/uL [place] # (Auto) 0.6 (0.1-1.2) X10*3/uL Eos # (Auto) 0.0 (0.0-0.4) X10*3/uL Baso # (Auto) 0.0 (0.0-0.2) X10*3/uL Abs Immat Gran (auto) 0.02 (0.00-0.03) X10*3/uL Absolute Neuts (auto) 3.8 (2.0-8.3) x10*3/uL Absolute Nucleated RBC 0.000 (0.0-0.012) X10*3/uL Nucleated RBC % (auto) 0.0 (0.0-0.2) /100WBC PT 109.6 H D (11.1-13.3) SEC INR 9.0 H* D (0.9-1.1) APTT 71.2 H* (26.0-36.4) SEC Sodium 127 L (135-145) mmol/L Potassium 4.3 (3.3-5.1) mmol/L Chloride 97 (96-108) mmol/L Carbon Dioxide 19 L (22-29) mmol/L Anion Gap 15 (12-20) BUN 5 L (9-16) mg/dL Creatinine 0.80 (0.5-1.4) mg/dL Estim Creat Clear Calc 96.3 Estimated GFR > 60 Random Glucose 80 (60-115) mg/dL Calcium 9.1 (8.4-10.2) mg/dL Magnesium 1.3 L* (1.6-2.6) mg/dL Total Bilirubin 0.5 (0.0-1.0) mg/dL AST 65 H (5-37) U/L ALT 51 H (0-40) U/L Alkaline Phosphatase 115 (39-117) U/L Troponin I High Sens 4.9 D (<3.5-35.0) ng/L Total Protein 7.8 (6.5-8.0) g/dL Albumin 4.2 (3.5-5.0) g/dL Lipase 14 (8-78) U/L Urine Color Yellow Urine Appearance Clear Urine pH 5.5 (5.0-9.0) Ur Specific [place] 1.010 (1.005-1.025) Urine Protein 30 (1+) H (Neg-Trace) mg/dL Urine Glucose (UA) Negative (Negative) mg/dL Urine Ketones Negative (Negative) mg/dL Urine Blood Trace H (Negative) Urine Nitrite Negative (Negative) Ur Leukocyte Esterase Negative (Negative) Urine RBC 0-2 (0-2) /HPF Urine WBC 0-5 (0-5) /HPF Ur Squamous Epith Cells 0-2 (0-2) /HPF Urine Bacteria None Seen (None Seen) Hyaline Casts 0-2 (0-2) /LPF Stool Occult Blood (NEGATIVE) Influenza Type A (PCR) NEGATIVE (Negative) Influenza Type B (PCR) NEGATIVE (Negative) RSV RNA Qual (PCR) NEGATIVE (Negative) SARS-CoV-2 RNA (RT-PCR) NEGATIVE (Negative) Blood Type Antibody Screen 02/09/23 02/09/23 Range/Units 13:42 14:23 WBC (4.8-10.8) X10*3/uL RBC (4.60-5.80) X10*6/uL Hgb (14.0-18.0) g/dl Hct (42.0-52.0) % MCV (80.0-98.0) fL MCH (27.0-33.0) pg MCHC (31.0-36.0) g/dl RDW (11.0-16.0) % Plt Count (160-400) X10*3/uL MPV (9.4-12.4) fL Immature Gran % (Auto) (0.0-0.4) % Neut % (Auto) (45-73) % Lymph % (Auto) (20-40) % [place] % (Auto) (2-11) % Eos % (Auto) (0-4) % Baso % (Auto) (0-2) % Lymph # (Auto) (1.2-4.9) X10*3/uL [place] # (Auto) (0.1-1.2) X10*3/uL Eos # (Auto) (0.0-0.4) X10*3/uL Baso # (Auto) (0.0-0.2) X10*3/uL Abs Immat Gran (auto) (0.00-0.03) X10*3/uL Absolute Neuts (auto) (2.0-8.3) x10*3/uL Absolute Nucleated RBC (0.0-0.012) X10*3/uL Nucleated RBC % (auto) (0.0-0.2) /100WBC PT (11.1-13.3) SEC INR (0.9-1.1) APTT (26.0-36.4) SEC Sodium (135-145) mmol/L Potassium (3.3-5.1) mmol/L Chloride (96-108) mmol/L Carbon Dioxide (22-29) mmol/L Anion Gap (12-20) BUN (9-16) mg/dL Creatinine (0.5-1.4) mg/dL Estim Creat Clear Calc Estimated GFR Random Glucose (60-115) mg/dL Calcium (8.4-10.2) mg/dL Magnesium (1.6-2.6) mg/dL Total Bilirubin (0.0-1.0) mg/dL AST (5-37) U/L ALT (0-40) U/L Alkaline Phosphatase (39-117) U/L Troponin I High Sens (<3.5-35.0) ng/L Total Protein (6.5-8.0) g/dL Albumin (3.5-5.0) g/dL Lipase (8-78) U/L Urine Color Urine Appearance Urine pH (5.0-9.0) Ur Specific Porter (1.005-1.025) Urine Protein (Neg-Trace) mg/dL Urine Glucose (UA) (Negative) mg/dL Urine Ketones (Negative) mg/dL Urine Blood (Negative) Urine Nitrite (Negative) Ur Leukocyte Esterase (Negative) Urine RBC (0-2) /HPF Urine WBC (0-5) /HPF Ur Squamous Epith Cells (0-2) /HPF Urine Bacteria (None Seen) Hyaline Casts (0-2) /LPF Stool Occult Blood POSITIVE (NEGATIVE) Influenza Type A (PCR) (Negative) Influenza Type B (PCR) (Negative) RSV RNA Qual (PCR) (Negative) SARS-CoV-2 RNA (RT-PCR) (Negative) Blood Type O Positive Antibody Screen NEGATIVE Independent Interpretation I performed an independent interpretation of an: EKG Interpretation: Atrial sensed ventricular paced rhythm, HR-98, no acute changes when compared to prior EKG. Radiology Impression Discussion of test interpretation with radiology: I have reviewed the radiologist's reading. Radiologist Impression: Please see the discussion above External Record Review External record reviewed: Outpatient record, Prior outpatient labs and Prior outpatient radiology Chronic Conditions Patient?s care impacted by: Other Alcohol abuse Critical Care Time Critical Care Time Critical Care Time: Yes Total Critical Care Time: 90 Attestation: I personally attest to this time spent taking care of the patient. Discharge Plan Discharge Clinical Impression: Alcohol withdrawal, Supratherapeutic INR Patient Disposition: Admitted As Inpatient
--- NOTE | 2023-02-09 11:15 | ECG_ITS ---
Test Reason : CP Blood Pressure : / mmHG Vent. Rate : 098 BPM Atrial Rate : 098 BPM P-R Int : 144 ms QRS Dur : 186 ms QT Int : 428 ms P-R-T Axes : 016 070 -38 degrees QTc Int : 546 ms Atrial-sensed ventricular-paced rhythm Abnormal ECG When compared with ECG of 16-JAN-2023 15:14, Vent. rate has decreased BY 2 BPM Referred By: Karly Quinn Electronically Signed By:GENESIS WALKER MD
[2023-02-09 12:19] LABS: MANUAL DIFF FLAG NO
[2023-02-09 12:20] VITALS: BP 137/85; PULSE 85; RESP 22; O2SAT 94
[2023-02-09 12:22] LABS: Basophils Percent Auto 0.5 % (0-2); Eosinophils Percent Auto 0.2 % (0-4); Hematocrit 37.3 % (42.0-52.0); Hemoglobin 12.9 g/dl (14.0-18.0); Imm Gran Abs Auto 0.02 X10*3/uL (0.00-0.03); Imm Gran Pct Auto 0.4 % (0.0-0.4); Lymphocytes Absolute Auto 1.2 X10*3/uL (1.2-4.9); Lymphocytes Percent Auto 21.2 % (20-40); Mean Corpuscular HGB Conc 34.6 g/dl (31.0-36.0); Mean Corpuscular Hemoglobin 29.8 pg (27.0-33.0); Mean Corpuscular Volume 86.1 fL (80.0-98.0); Mean Platelet Volume 8.8 fL (9.4-12.4); Monocytes Absolute Auto 0.6 X10*3/uL (0.1-1.2); Monocytes Percent Auto 10.2 % (2-11); Neutrophils Absolute Auto 3.8 x10*3/uL (2.0-8.3); Neutrophils Percent Auto 67.5 % (45-73); Platelet Count 295 X10*3/uL (160-400); Red Blood Count 4.33 X10*6/uL (4.60-5.80); Red Cell Distribution Width 17.1 % (11.0-16.0); White Blood Count 5.7 X10*3/uL (4.8-10.8)
[2023-02-09 12:34] LABS: Prothrombin Time 109.6 SEC (11.1-13.3)
[2023-02-09 12:36] LABS: Appearance Urine Clear; Color Urine Yellow; Glucose Urine UA Negative (Negative); Leukocyte Esterase Urine Negative (Negative); Nitrite Urine Negative (Negative); PH 5.5 (5.0-9.0); UMIC TRIGGER UACC YES; Urine Blood Trace (Negative); Urine Ketones Negative (Negative); Urine Protein 30 (1+) mg/dL (Neg-Trace)
[2023-02-09 12:41] LABS: Bacteria Urine None Seen (None Seen); Hyaline Casts Urine 0-2 /LPF (0-2); RBC Urine 0-2 /HPF (0-2); Squamous Epithelial Cell Urine 0-2 /HPF (0-2); WBC Urine 0-5 /HPF (0-5)
[2023-02-09 12:44] LABS: Partial Thromboplastin Time 71.2 SEC (26.0-36.4)
[2023-02-09 12:46] LABS: Troponin-I High Sensitivity 4.9 ng/L (<3.5-35.0)
[2023-02-09 13:15] LABS: Influenza A PCR NEGATIVE (Negative); Influenza B PCR NEGATIVE (Negative); Resp Syncy Virus RNA Qual PCR NEGATIVE (Negative); SARS COV2 PCR INHOUSE NEGATIVE (Negative)
[2023-02-09 13:39] LABS: Alanine Aminotransferase 51 U/L (0-40); Albumin Level 4.2 g/dL (3.5-5.0); Alkaline Phosphatase 115 U/L (39-117); Anion Gap 15 (12-20); Aspartate Amino Transferase 65 U/L (5-37); Bilirubin Total 0.5 mg/dL (0.0-1.0); Blood Urea Nitrogen 5 mg/dL (9-16); Calcium 9.1 mg/dL (8.4-10.2); Carbon Dioxide 19 mmol/L (22-29); Chloride 97 mmol/L (96-108); Creatinine Clr Calc Pharmacy 96.3; Estimated Glomerular Filt Rate > 60; Glucose Random 80 mg/dL (60-115); Magnesium 1.3 mg/dL (1.6-2.6); Potassium 4.3 mmol/L (3.3-5.1); Sodium 127 mmol/L (135-145); Total Protein 7.8 g/dL (6.5-8.0)
[2023-02-09 13:50] LABS: OBS Int Ctl Valid YES; OBS1 POSITIVE (NEGATIVE)
[2023-02-09] MEDS: Magnesium Sulfate/H2O 2 GM/50 ML PIGGYBACK IV (13:50)
[2023-02-09] MEDS: Phytonadione (Vit K1) 10 MG in 0.9 % Sodium Chloride 50 ML 51 MG IV (14:30)
[2023-02-09] MEDS: PHENobarbitaL sodium 130 MG/ML IM ONCE 382.2 MG IM (14:35)
[2023-02-09 14:37] LABS: Lipase 14 U/L (8-78)
[2023-02-09 14:42] VITALS: BP 139/81; PULSE 94; RESP 27
--- NOTE | 2023-02-09 15:17 | PC.NURSE ---
phytonadione paused per MD for CT scan. will restart once pt back in room
[2023-02-09] MEDS: iohexoL 350 MG/ML 100 ML INFUS..BTL IV (15:50)
--- NOTE | 2023-02-09 16:48 | PHA.MEDREC ---
Pharmacy Consult ? Medication Reconciliation Pharmacy has completed the medication reconciliation. Patient reports using [facility] from [facility] pharmacy. Patient able to confirm warfarin dose and medications out of [facility]. Nancy Reyes, AlexandruD
--- NOTE | 2023-02-09 17:03 | PC.NURSE ---
pt [id number] visiting with pt. left number with this RN for update on pt with pt permission. Clay: [phone]
[2023-02-09] MEDS: 0.9 % Sodium Chloride 1,000 ML 999 ML IV (17:10)
[2023-02-09] MEDS: PHENobarbitaL sodium 130 MG/ML VIAL IM Q3Hx2 287.3 MG IM ×2 (18:14→21:36)
--- NOTE | 2023-02-09 18:49 | PC.NURSE ---
pt medicated per jun. urinal at bedside. pt asking for pain medication and something for anxiety. provider aware. IV patent. rr even/unlabored. pt aware of plan of care. awaiting admit orders.
--- NOTE | 2023-02-09 19:40 | P.HPHOSP_ITS ---
History of Present Illness Date of Service: 02/09/23 Chief Complaint: Abnormal labs This is a 63-year-old male with pertinent history of aortic valve replacement on Coumadin, alcohol use disorder with alcoholic liver disease, history of cocaine use disorder, congestive heart failure with reduced ejection history of intracranial hemorrhage, CAD status post CABG, mood disorder who presents to the emergency department for evaluation of supratherapeutic INR and concerns for hematochezia. Patient states he is compliant with Coumadin. He was told by his home nurse that his INR was elevated and he was asked to the come to the ER. Does report painless bleeding while he is passing stools that started 1 day prior to presentation. No abdominal pain, fever, chills. States he drinks about 8 cans of beer every day and his last drink was on Wednesday. Denies history of alcohol withdrawal seizures. No hematemesis. Patient states he fell likely due to alcohol use. Did not lose consciousness. No chest discomfort, palpitations, shortness of breath, changes in urinary habits. In the emergency department, INR found to be elevated and stool occult blood positive Review of Systems 2 Constitutional: Constitutional: Reports fatigue and Reports lethargy Cardiovascular: Cardiovascular: Reports no additional cardiovascular complaints Respiratory: Respiratory: Reports no additional respiratory complaints Gastrointestinal: Gastrointestinal: Reports hematochezia Genitourinary: Genitourinary: Reports no additional male genitourinary complaints Endocrine: Endocrine: Reports fatigue PMFSH Medical History Intracranial hemorrhage Coronary artery disease Chronic systolic CHF (congestive heart failure) Hypertension Short-segment Harrell's esophagus Pacemaker Skull fracture Alcoholic liver disease Cocaine abuse Alcohol abuse Pertinent family history: No family history of early CAD Surgical History S/P CABG (coronary artery bypass graft) H/O aortic valve replacement History of esophagogastroduodenoscopy (EGD) Aortic valve replaced Social History Household Members: None Housing: Apartment Do you presently have visiting nurse or other home services: 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) Alcohol intake: current Alcohol intake frequency: a few times a week Alcohol type: beer Patient Tobacco Use Status: Current everyday Tobacco user Tobacco use type: Cigarette Cigarette Packs Per Day: 0.5 Smoked in Last 30 Days: Yes Second Hand Smoke Exposure: No Use of substances other than those prescribed or required for medical reasons: No Substance Use Type: Marijuana Advance Directives: Yes Advance Directives on File: Yes Advance Directives Date on File: 10/11/21 Nutrition Risks: Acute nausea or vomiting x1 week service: No Current occupational status: unemployed Meds Allergies Allergy/AdvReac Type Severity Reaction Status Date / Time lorazepam [From ATIVAN] AdvReac Severe OPPOSITE Verified 02/09/23 11:15 EFFECT PSYCOTIC EFECTS Active Medications: Current Medications Acetaminophen (Acetaminophen 325 Mg Tablet) 650 mg PO Q6H PRN PRN Reason: Pain, Mild (Pain Scale 1-3) Thiamine HCl 100 mg/ Sodium (Chloride) 101 mls @ 202 mls/hr IV ONCE ONE Stop: 02/09/23 20:05 Melatonin (Melatonin 3 Mg Tablet) 6 mg PO BEDTIME PRN PRN Reason: Insomnia Ondansetron HCl (Ondansetron Hcl 4 Mg/2 Ml Vial) 4 mg IVPUSH Q8H PRN PRN Reason: Nausea and Vomiting Pharmacy Consult (Consult Rx Etoh Phenob Im/Po) 1 each MISCELLANE ONCE PRN; Protocol PRN Reason: Consult order Phenobarbital (Phenobarbital 15 Mg Tablet) 45 mg PO BID [facility]; Protocol Stop: 02/11/23 21:01 Phenobarbital (Phenobarbital 15 Mg Tablet) 15 mg PO BID [facility]; Protocol Stop: 02/13/23 21:01 Phenobarbital (Phenobarbital 15 Mg Tablet) 15 mg PO DAILY [facility]; Protocol Stop: 02/15/23 09:01 Phenobarbital Sodium (Phenobarbital Sodium 130 Mg/Ml Vial Im Q3hx2) 287.3 mg IM Q3H [facility]; Protocol Stop: 02/09/23 20:31 Last Admin: 02/09/23 18:14 Dose: 287.3 mg Sodium Chloride (0.9 % Sodium Chloride Flush 3 Ml Syringe) 3 [facility] Medications Medication Instructions Recorded Confirmed Last Taken Type melatonin 5 mg tablet 2 tab PO BEDTIME PRN insomnia 10/18/20 02/09/23 Unknown History amlodipine 2.5 mg tablet 2.5 mg PO DAILY 11/18/20 02/09/23 Unknown History atorvastatin 20 mg tablet 20 mg PO DAILY 11/18/20 02/09/23 Unknown History blood pressure test kit-large #1 ea 11/18/20 02/09/23 Unknown History folic acid 1 mg tablet 1 mg PO DAILY 11/18/20 02/09/23 Unknown History lidocaine 5 % topical patch 1 patch topical DAILY 11/18/20 02/09/23 Unknown History magnesium oxide 400 mg (241.3 mg 800 mg PO BID 11/18/20 02/09/23 Unknown History magnesium) tablet metoprolol succinate 50 mg 50 mg PO DAILY 11/18/20 02/09/23 Unknown History tablet,extended release 24 hr pantoprazole 40 mg tablet,delayed 40 mg PO BID 11/18/20 02/09/23 Unknown History release thiamine HCl (vitamin B1) 100 mg 100 mg PO DAILY 11/18/20 02/09/23 Unknown History tablet zolpidem 10 mg tablet 10 mg PO BEDTIME PRN Insomnia 12/02/20 02/09/23 10/10/21 History clopidogrel 75 mg tablet 1 tab PO DAILY 10/10/21 02/09/23 Unknown History olanzapine 5 mg tablet 1 tab PO BEDTIME 10/10/21 02/09/23 Unknown History acetaminophen 500 mg tablet 500 mg PO BID PRN Mild Pain (Scale 05/11/22 02/09/23 Unknown History Score 1-4) albuterol sulfate 90 mcg/actuation 2 puff inhalation Q4H PRN 05/11/22 02/09/23 Unknown History aerosol inhaler (Ventolin HFA) Respiratory Distress buspirone 10 mg tablet 10 mg PO TID 05/11/22 02/09/23 Unknown History warfarin 5 mg tablet 5 mg PO DAILY 05/11/22 02/09/23 Unknown History sacubitril 24 mg-valsartan 26 mg 1 tab PO BID 06/12/22 02/09/23 Unknown History tablet (Entresto) hydroxyzine pamoate 50 mg capsule 50 mg PO BEDTIME PRN insomnia 11/17/22 02/09/23 Unknown History budesonide-formoterol HFA 160 2 puff inhalation BID 02/09/23 02/09/23 Unknown History mcg-4.5 mcg/actuation aerosol inhaler (Symbicort) Physical Exam 2 Vital Signs and Narrative: Vital Signs: Last Vital Signs Temp 98.1 F 02/09/23 11:11 Pulse 94 02/09/23 14:42 Resp 27 H 02/09/23 14:42 BP 139/81 02/09/23 14:42 Pulse Ox 94 02/09/23 12:20 O2 Del Method Room Air 02/09/23 12:20 BMI result Body Mass Index 29.2 Middle-aged male lying in bed in no distress Neck supple, no JVD Regular rate and rhythm, S1-S2 heard Regular breath sounds bilaterally, no wheezing or crackles appreciated Abdomen soft nontender, no guarding, no rigidity Patient is awake, alert and oriented to self, place, time and person ; no focal motor deficit Psych: Normal mood No pedal edema Results Labs 02/09/23 12:14 02/09/23 13:04 Labs: Laboratory Results - last 24 hr 02/09/23 02/09/23 02/09/23 12:14 12:22 13:04 MCV 86.1 MCH 29.8 MCHC 34.6 RDW 17.1 H Plt Count 295 D MPV 8.8 L Immature Gran % (Auto) 0.4 Neut % (Auto) 67.5 Lymph % (Auto) 21.2 [place] % (Auto) 10.2 Eos % (Auto) 0.2 Baso % (Auto) 0.5 Lymph # (Auto) 1.2 [place] # (Auto) 0.6 Eos # (Auto) 0.0 Baso # (Auto) 0.0 Abs Immat Gran (auto) 0.02 Absolute Neuts (auto) 3.8 Absolute Nucleated RBC 0.000 Nucleated RBC % (auto) 0.0 PT 109.6 H D INR 9.0 H* D APTT 71.2 H* Anion Gap 15 Estim Creat Clear Calc 96.3 Estimated GFR > 60 Random Glucose 80 Calcium 9.1 Magnesium 1.3 L* Total Bilirubin 0.5 AST 65 H ALT 51 H Alkaline Phosphatase 115 Total Protein 7.8 Albumin 4.2 Lipase 14 Urine Color Yellow Urine Appearance Clear Urine pH 5.5 Ur Specific [place] 1.010 Urine Protein 30 (1+) H Urine Glucose (UA) Negative Urine Ketones Negative Urine Blood Trace H Urine Nitrite Negative Ur Leukocyte Esterase Negative Urine RBC 0-2 Urine WBC 0-5 Ur Squamous Epith Cells 0-2 Urine Bacteria None Seen Hyaline Casts 0-2 Stool Occult Blood Influenza Type A (PCR) NEGATIVE Influenza Type B (PCR) NEGATIVE RSV RNA Qual (PCR) NEGATIVE SARS-CoV-2 RNA (RT-PCR) NEGATIVE Blood Type Antibody Screen 02/09/23 02/09/23 13:42 14:23 MCV MCH MCHC RDW Plt Count MPV Immature Gran % (Auto) Neut % (Auto) Lymph % (Auto) [place] % (Auto) Eos % (Auto) Baso % (Auto) Lymph # (Auto) [place] # (Auto) Eos # (Auto) Baso # (Auto) Abs Immat Gran (auto) Absolute Neuts (auto) Absolute Nucleated RBC Nucleated RBC % (auto) PT INR APTT Anion Gap Estim Creat Clear Calc Estimated GFR Random Glucose Calcium Magnesium Total Bilirubin AST ALT Alkaline Phosphatase Total Protein Albumin Lipase Urine Color Urine Appearance Urine pH Ur Specific [place] Urine Protein Urine Glucose (UA) Urine Ketones Urine Blood Urine Nitrite Ur Leukocyte Esterase Urine RBC Urine WBC Ur Squamous Epith Cells Urine Bacteria Hyaline Casts Stool Occult Blood POSITIVE Influenza Type A (PCR) Influenza Type B (PCR) RSV RNA Qual (PCR) SARS-CoV-2 RNA (RT-PCR) Blood Type O Positive Antibody Screen NEGATIVE Imaging Radiologist's Impressions: Impressions Chest X-Ray 02/09/23 11:44 IMPRESSION: No acute cardiopulmonary disease or interval change. Abdomen/Pelvis CT 02/09/23 15:51 IMPRESSION: 1. A cause for the patient's abdominal pain has not been found. 2. Incidental note made of a single punctate 2 mm nonobstructing left renal calculus, small hiatal hernia and other findings described above. Fleischner guidelines were followed. Head CT 02/09/23 15:51 IMPRESSION: * No CT evidence of intracranial bleed. * Encephalomalacia right temporal lobe, this is most likely sequela of prior brain injury brain infarct. This has not changed from prior exam. * Postsurgical changes from prior left craniotomy. Assessment and Plan (1) Supratherapeutic INR: Status: Acute (2) Alcohol withdrawal: Status: Acute (3) GI bleed: Status: Acute Plan This is a 63-year-old male with pertinent history of aortic valve replacement on Coumadin, alcohol use disorder with alcoholic liver disease, history of cocaine use disorder, congestive heart failure with reduced ejection history of intracranial hemorrhage, CAD status post CABG, mood disorder who presents to the emergency department for evaluation of supratherapeutic INR and concerns for hematochezia. #. Supratherapeutic INR: No life-threatening bleed, given vitamin K in the ER. Closely monitor INR. Hold Coumadin #. ?GI bleed: Will admit patient with cardiac monitoring. Administered IV Protonix. Will keep patient NPO and consult GI. Hold Plavix and Coumadin #. Alcohol use disorder with concerns for withdrawal: Phenobarb protocol initiated in the ER. Initiating thiamine and folic acid. Consulting Addiction Team, appreciate assistance #. Mechanical fall in the setting of above. CT cervical spine pending #. Moderate hyponatremia, chronic: Serum and urine studies pending. Continue to monitor #. Hypomagnesemia: Repleted. Repeat levels in a.m. #. Essential hypertension/congestive heart failure with reduced ejection fraction: Patient is euvolemic. Hold Entresto and amlodipine in the setting of possible GI bleed #. CAD status post CABG: Holding Plavix as above. Not on high-intensity statin #. Mood disorder: Continue home mood stabilizers Med rec pending DVT prophylaxis: Mechanical Admit as inpatient and will require two night minimum hospital stay for close monitoring of INR and evaluation of possible GI bleed. Specialist consult pending Quality Stroke Does the patient have a stroke diagnosis?: No VTE Prior VTE?: No VTE Risk Level:: Medical - moderate - high VTE Device Contraindication: N/A - Device Ordered VTE Drug Contraindication: Treatment Not Indicated
[2023-02-09 19:46] VITALS: BP 132/90; PULSE 82; RESP 18; TEMP 36.6; O2SAT 96
--- NOTE | 2023-02-09 19:48 | MHC.EDTECH ---
This tech took over care of patient at 1900, hourly rounds and vitals completed, Patient had 1500ML of urine output in urinals that were at bedside. Patient is resting comfortably at this time and call lambert within reach.
--- NOTE | 2023-02-09 19:52 | MHC.EDTECH ---
Belonging list completed and copy in chart
[2023-02-09] MEDS: Thiamine HCL 100 MG in 0.9 % Sodium Chloride 100 ML 202 MG IV (20:04)
[2023-02-09] MEDS: Pantoprazole Sodium 40 MG/10 ML VIAL 80 MG IVPUSH (20:09)
[2023-02-09 21:00] LABS: Osmolality, Serum 270 mosm/kg (281-305)
--- NOTE | 2023-02-09 21:10 | MHC.EDTECH ---
Assisted to bathroom to move his bowels,instructed patient if needed to urinate we need a sample. patient has a steady gait
--- NOTE | 2023-02-09 22:11 | MHC.EDTECH ---
Hourly rounds competed and call petra looney
[2023-02-10 01:33] VITALS: BP 131/77; PULSE 83; RESP 18; TEMP 36.7; O2SAT 98
[2023-02-10 05:19] LABS: Amphetamine Screen Urine Not Detected (Not Detect); Barbiturates, Urine POSITIVE (Not Detect); Benzodiazepines Screen Urine Not Detected (Not Detect); Cannabinoid Screen Urine Not Detected (Not Detect); Cocaine Screen Urine Not Detected (Not Detect); Fentanyl, urine Not Detected (Not Detect); Opiate Screen Urine Not Detected (Not Detect); Osmolality Urine 441 mosm/kg (373-1093); Phencyclidine Screen Urine Not Detected (Not Detect)
[2023-02-10] MEDS: Acetaminophen 325 MG TABLET 650 MG PO (05:34)
[2023-02-10 06:04] LABS: MANUAL DIFF FLAG NO
[2023-02-10 06:11] LABS: INTERNATIONAL NORM RATIO 1.1 (0.9-1.1); Prothrombin Time 13.1 SEC (11.1-13.3)
[2023-02-10 06:13] LABS: Basophils Percent Auto 0.5 % (0-2); Eosinophils Absolute Auto 0.1 X10*3/uL (0.0-0.4); Eosinophils Percent Auto 0.8 % (0-4); Hemoglobin 12.3 g/dl (14.0-18.0); Imm Gran Abs Auto 0.03 X10*3/uL (0.00-0.03); Imm Gran Pct Auto 0.5 % (0.0-0.4); Lymphocytes Absolute Auto 1.1 X10*3/uL (1.2-4.9); Lymphocytes Percent Auto 18.5 % (20-40); Mean Corpuscular HGB Conc 33.2 g/dl (31.0-36.0); Mean Corpuscular Hemoglobin 29.1 pg (27.0-33.0); Mean Corpuscular Volume 87.5 fL (80.0-98.0); Mean Platelet Volume 9.2 fL (9.4-12.4); Monocytes Absolute Auto 0.7 X10*3/uL (0.1-1.2); Monocytes Percent Auto 10.7 % (2-11); Neutrophils Absolute Auto 4.2 x10*3/uL (2.0-8.3); Platelet Count 273 X10*3/uL (160-400); Red Blood Count 4.23 X10*6/uL (4.60-5.80); Red Cell Distribution Width 17.4 % (11.0-16.0); White Blood Count 6.2 X10*3/uL (4.8-10.8)
[2023-02-10 06:33] LABS: Alanine Aminotransferase 45 U/L (0-40); Alkaline Phosphatase 108 U/L (39-117); Anion Gap 15 (12-20); Aspartate Amino Transferase 53 U/L (5-37); Bilirubin Total 1.1 mg/dL (0.0-1.0); Blood Urea Nitrogen 5 mg/dL (9-16); Calcium 9.1 mg/dL (8.4-10.2); Carbon Dioxide 21 mmol/L (22-29); Chloride 102 mmol/L (96-108); Creatinine Clr Calc Pharmacy 101.3; Estimated Glomerular Filt Rate > 60; Glucose Random 77 mg/dL (60-115); Magnesium 1.8 mg/dL (1.6-2.6); Sodium 134 mmol/L (135-145); Total Protein 7.5 g/dL (6.5-8.0)
[2023-02-10 07:05] VITALS: BP 113/63; PULSE 82; RESP 16; TEMP 37; O2SAT 96
[2023-02-10] MEDS: Folic Acid 1 MG TABLET PO (07:55)
[2023-02-10] MEDS: PHENobarbitaL 15 MG TABLET 45 MG PO (07:55)
[2023-02-10] MEDS: Thiamine HCL 100 MG TABLET PO (07:55)
[2023-02-10] MEDS: 0.9 % Sodium Chloride Flush 3 ML SYRINGE IVFLUSH (07:58)
--- NOTE | 2023-02-10 09:33 | P.CNGI_ITS ---
History of Present Illness Data of Consult Service Date: 02/10/23 Requesting physician: Dimitry Diamond Primary Care Provider: Nathalie Hsu MD [facility] Reason for consult: GI bleed This is a 63y.o M with PMH of TBI, polysubstance use disorder, who is here for elevated INR. GI has been consulted for question of painless rectal bleeding. EGD 2016 (Dr Martínez): 3 cm BE without dysplasia, gastritis with HP negative [facility] 2011 (Dr Zhang): good prep no polyps. diverticulosis. Recall in 10y. 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) Alcohol intake: current Alcohol intake frequency: a few times a week Alcohol type: beer Patient Tobacco Use Status: Current everyday Tobacco user Tobacco use type: Cigarette Cigarette Packs Per Day: 0.5 Smoked in Last 30 Days: Yes Second Hand Smoke Exposure: No Use of substances other than those prescribed or required for medical reasons: No Substance Use Type: Marijuana Advance Directives: Yes Advance Directives on File: Yes Advance Directives Date on File: 10/11/21 Nutrition Risks: Acute nausea or vomiting x1 week service: No Current occupational status: unemployed Meds Allergies Allergy/AdvReac Type Severity Reaction Status Date / Time lorazepam [From ATIVAN] AdvReac Severe OPPOSITE Verified 02/09/23 11:15 EFFECT PSYCOTIC EFECTS Active Medications: Current Medications Acetaminophen (Acetaminophen 325 Mg Tablet) 650 mg PO Q6H PRN PRN Reason: Pain, Mild (Pain Scale 1-3) Last Admin: 02/10/23 05:34 Dose: 650 mg Folic Acid (Folic Acid 1 Mg Tablet) 1 mg PO DAILY [facility] Last Admin: 02/10/23 07:55 Dose: 1 mg Melatonin (Melatonin 3 Mg Tablet) 6 mg PO BEDTIME PRN PRN Reason: Insomnia Ondansetron HCl (Ondansetron Hcl 4 Mg/2 Ml Vial) 4 mg IVPUSH Q8H PRN PRN Reason: Nausea and Vomiting Pharmacy Consult (Consult Rx Etoh Phenob Im/Po) 1 each MISCELLANE ONCE PRN; Protocol PRN Reason: Consult order Phenobarbital (Phenobarbital 15 Mg Tablet) 45 mg PO BID [facility]; Protocol Stop: 02/11/23 21:01 Last Admin: 02/10/23 07:55 Dose: 45 mg Phenobarbital (Phenobarbital 15 Mg Tablet) 15 mg PO BID [facility]; Protocol Stop: 02/13/23 21:01 Phenobarbital (Phenobarbital 15 Mg Tablet) 15 mg PO DAILY [facility]; Protocol Stop: 02/15/23 09:01 Sodium Chloride (0.9 % Sodium Chloride Flush 3 Ml Syringe) 3 ml IVFLUSH QSHIFT [facility] Last Admin: 02/10/23 07:58 Dose: 3 ml Thiamine HCl (Thiamine Hcl 100 Mg Tablet) 100 mg PO DAILY [facility] Last Admin: 02/10/23 07:55 Dose: 100 mg Home Medications Medication Instructions Recorded Confirmed Last Taken Type melatonin 5 mg tablet 2 tab PO BEDTIME PRN insomnia 10/18/20 02/09/23 Unknown History amlodipine 2.5 mg tablet 2.5 mg PO DAILY 11/18/20 02/09/23 Unknown History atorvastatin 20 mg tablet 20 mg PO DAILY 11/18/20 02/09/23 Unknown History blood pressure test kit-large #1 ea 11/18/20 02/09/23 Unknown History folic acid 1 mg tablet 1 mg PO DAILY 11/18/20 02/09/23 Unknown History lidocaine 5 % topical patch 1 patch topical DAILY 11/18/20 02/09/23 Unknown History magnesium oxide 400 mg (241.3 mg 800 mg PO BID 11/18/20 02/09/23 Unknown History magnesium) tablet metoprolol succinate 50 mg 50 mg PO DAILY 11/18/20 02/09/23 Unknown History tablet,extended release 24 hr pantoprazole 40 mg tablet,delayed 40 mg PO BID 11/18/20 02/09/23 Unknown History release thiamine HCl (vitamin B1) 100 mg 100 mg PO DAILY 11/18/20 02/09/23 Unknown History tablet zolpidem 10 mg tablet 10 mg PO BEDTIME PRN Insomnia 12/02/20 02/09/23 10/10/21 History clopidogrel 75 mg tablet 1 tab PO DAILY 10/10/21 02/09/23 Unknown History olanzapine 5 mg tablet 1 tab PO BEDTIME 10/10/21 02/09/23 Unknown History acetaminophen 500 mg tablet 500 mg PO BID PRN Mild Pain (Scale 05/11/22 02/09/23 Unknown History Score 1-4) albuterol sulfate 90 mcg/actuation 2 puff inhalation Q4H PRN 05/11/22 02/09/23 Unknown History aerosol inhaler (Ventolin HFA) Respiratory Distress buspirone 10 mg tablet 10 mg PO TID 05/11/22 02/09/23 Unknown History warfarin 5 mg tablet 5 mg PO DAILY 05/11/22 02/09/23 Unknown History sacubitril 24 mg-valsartan 26 mg 1 tab PO BID 06/12/22 02/09/23 Unknown History tablet (Entresto) hydroxyzine pamoate 50 mg capsule 50 mg PO BEDTIME PRN insomnia 11/17/22 02/09/23 Unknown History budesonide-formoterol HFA 160 2 puff inhalation BID 02/09/23 02/09/23 Unknown History mcg-4.5 mcg/actuation aerosol inhaler (Symbicort) Physical Exam 2 Vital Signs: Vital Signs: Last Vital Signs Temp 98.6 F 02/10/23 07:05 Pulse 82 02/10/23 07:05 Resp 16 02/10/23 07:05 BP 113/63 02/10/23 07:05 Pulse Ox 96 02/10/23 07:05 O2 Del Method Room Air 02/10/23 07:05 BMI result Body Mass Index 29.2 Results Labs 02/10/23 04:30 02/10/23 04:30 Labs: Short CBC 02/09/23 02/10/23 Range/Units 12:14 04:30 WBC 5.7 6.2 (4.8-10.8) X10*3/uL Hgb 12.9 L 12.3 L (14.0-18.0) g/dl Hct 37.3 L 37.0 L (42.0-52.0) % Plt Count 295 D 273 (160-400) X10*3/uL BMP 02/09/23 02/10/23 13:04 04:30 Sodium 127 L 134 L Potassium 4.3 4.0 Chloride 97 102 Carbon Dioxide 19 L 21 L BUN 5 L 5 L Creatinine 0.80 0.76 Calcium 9.1 9.1 Liver Function 02/09/23 02/10/23 Range/Units 13:04 04:30 Total Bilirubin 0.5 1.1 H (0.0-1.0) mg/dL AST 65 H 53 H (5-37) U/L ALT 51 H 45 H (0-40) U/L Alkaline Phosphatase 115 108 (39-117) U/L Albumin 4.2 4.0 (3.5-5.0) g/dL Urine 02/09/23 Range/Units 12:22 Urine Color Yellow Urine Appearance Clear Urine pH 5.5 (5.0-9.0) Ur Specific [place] 1.010 (1.005-1.025) Urine Protein 30 (1+) H (Neg-Trace) mg/dL Urine Glucose (UA) Negative (Negative) mg/dL Procedures Date of Service Date of Service: 02/10/23
--- NOTE | 2023-02-10 10:15 | MHC.CM.PN ---
CM MET WITH PT WITH AUDIO TECHNICIAN PT REPORTS HE LIVES ALONE AND HAS ONE HOUR OF [employer] M-F HE ALSO REPORTS BEING ACTIVE WITH [facility] PT DENIES USE OF DME PCP: SCOTTIE INIGUEZ HCP ON FILE DCP: HOME RESUME [employer] AND [facility] BROTHER OR SON TO TRANSPORT
[2023-02-10 10:44] VITALS: BP 135/75; PULSE 94; RESP 20; TEMP 36.8; O2SAT 96
--- NOTE | 2023-02-10 11:37 | PM.DS ---
DS: Providers Provider Date of Service: 02/10/23 Date of admission: 02/09/23 19:38 Primary care physician: Nathalie Hsu MD Consults: 02/09/23 19:36 Consult to Gastroenterology Routine Consulting Provider: Lisbeth Johnson Reason for consultation: ?GI bleed 02/09/23 19:40 Addiction Medicine Routine Consulting Provider: Yrn Covering Reason for consultation: alcohol use disorder DS: Diagnosis Discharge Diagnosis (1) Supratherapeutic INR: Status: Acute (2) Alcohol withdrawal: Status: Acute (3) GI bleed: Status: Acute DS: Summary Hospital Course Hospital Course: from initial hpi: 63M PMH mechanical aortic valve replacement on Coumadin, alcohol use disorder with alcoholic liver disease, history of cocaine use disorder, congestive heart failure with reduced ejection, history of intracranial hemorrhage, CAD status post CABG, mood disorder who presents to the emergency department for evaluation of supratherapeutic INR and concerns for hematochezia. Patient states he is compliant with Coumadin. He was told by his home nurse that his INR was elevated and he was asked to the come to the ER. Does report painless bleeding while he is passing stools that started 1 day prior to presentation. No abdominal pain, fever, chills. States he drinks about 8 cans of beer every day and his last drink was on Wednesday. Denies history of alcohol withdrawal seizures. No hematemesis. Patient states he fell likely due to alcohol use. Did not lose consciousness. No chest discomfort, palpitations, shortness of breath, changes in urinary habits. In the emergency department, INR found to be elevated and stool occult blood positive hospital course: Patient was monitored for GI bleed. His bleeding stopped hemoglobin remained stable. INR was reversed. He was seen by Gastroenterology who recommended outpatient scope. He will restart on Coumadin and monitor INR closely. Will stop Plavix. Unfortunately given mechanical valve patient has no alternative to Coumadin. For alcohol dependence patient was treated with phenobarbital and is not demonstrating any evidence of withdrawal at this time. For mechanical fall trauma workup was negative. For chronic moderate hyponatremia BMP remained stable. Hypomagnesemia was replaced. For hypertension Will continue with amlodipine. For chronic systolic CHF will continue with Entresto. For CAD status post CABG Plavix has been held. Patient is feeling better will be discharged home. Time Attestation Discharge coordination time: Greater than 30 minutes Quality: Safe Use of Opioids Does Pt have an Active Cancer Diagnosis on the Problem List?: No Quality: Stroke Does the patient have a stroke diagnosis?: No Physical Exam Vital Signs: Vital Signs: Last Vital Signs Temp 98.2 F 02/10/23 10:44 Pulse 94 02/10/23 10:44 Resp 20 02/10/23 10:44 BP 135/75 02/10/23 10:44 Pulse Ox 96 02/10/23 10:44 O2 Del Method Room Air 02/10/23 10:44 BMI result Body Mass Index 29.2 General: AO X 3, no acute distress Resp: CTA bilateral, no accessory muscles used CVS: S1,S2,RRR GI: soft, non tender, non distended Neuro: motor grossly intact, alert Psych: appropriate affect, appropriate insight DS: Data Data Completed and Pending Completed studies during hospitalization [Text1]: Procedures Detoxification Services for Substance Abuse Treatment (11/17/22) Labs on day of discharge: Laboratory Results - last 24 hr 02/09/23 02/09/23 02/09/23 12:14 12:22 13:04 WBC 5.7 RBC 4.33 L Hgb 12.9 L Hct 37.3 L MCV 86.1 MCH 29.8 MCHC 34.6 RDW 17.1 H Plt Count 295 D MPV 8.8 L Immature Gran % (Auto) 0.4 Neut % (Auto) 67.5 Lymph % (Auto) 21.2 [place] % (Auto) 10.2 Eos % (Auto) 0.2 Baso % (Auto) 0.5 Lymph # (Auto) 1.2 [place] # (Auto) 0.6 Eos # (Auto) 0.0 Baso # (Auto) 0.0 Abs Immat Gran (auto) 0.02 Absolute Neuts (auto) 3.8 Absolute Nucleated RBC 0.000 Nucleated RBC % (auto) 0.0 PT 109.6 H D INR 9.0 H* D APTT 71.2 H* Sodium 127 L Potassium 4.3 Chloride 97 Carbon Dioxide 19 L Anion Gap 15 BUN 5 L Creatinine 0.80 Estim Creat Clear Calc 96.3 Estimated GFR > 60 Random Glucose 80 Osmolality Calcium 9.1 Magnesium 1.3 L* Total Bilirubin 0.5 AST 65 H ALT 51 H Alkaline Phosphatase 115 Troponin I High Sens 4.9 D Total Protein 7.8 Albumin 4.2 Lipase 14 Urine Color Yellow Urine Appearance Clear Urine pH 5.5 Ur Specific [place] 1.010 Urine Protein 30 (1+) H Urine Glucose (UA) Negative Urine Ketones Negative Urine Blood Trace H Urine Nitrite Negative Ur Leukocyte Esterase Negative Urine RBC 0-2 Urine WBC 0-5 Ur Squamous Epith Cells 0-2 Urine Bacteria None Seen Hyaline Casts 0-2 Urine Osmolality Ur Random Sodium Stool Occult Blood Urine Opiates Screen Urine Fentanyl Screen Ur Barbiturates Screen Ur Phencyclidine Scrn Ur Amphetamines Screen U Benzodiazepines Scrn Urine Cocaine Screen U Marijuana (THC) Screen Influenza Type A (PCR) NEGATIVE Influenza Type B (PCR) NEGATIVE RSV RNA Qual (PCR) NEGATIVE SARS-CoV-2 RNA (RT-PCR) NEGATIVE Blood Type Antibody Screen 02/09/23 02/09/23 02/09/23 13:42 14:23 20:31 WBC RBC Hgb Hct MCV MCH MCHC RDW Plt Count MPV Immature Gran % (Auto) Neut % (Auto) Lymph % (Auto) [place] % (Auto) Eos % (Auto) Baso % (Auto) Lymph # (Auto) [place] # (Auto) Eos # (Auto) Baso # (Auto) Abs Immat Gran (auto) Absolute Neuts (auto) Absolute Nucleated RBC Nucleated RBC % (auto) PT INR APTT Sodium Potassium Chloride Carbon Dioxide Anion Gap BUN Creatinine Estim Creat Clear Calc Estimated GFR Random Glucose Osmolality 270 L Calcium Magnesium Total Bilirubin AST ALT Alkaline Phosphatase Troponin I High Sens Total Protein Albumin Lipase Urine Color Urine Appearance Urine pH Ur Specific [place] Urine Protein Urine Glucose (UA) Urine Ketones Urine Blood Urine Nitrite Ur Leukocyte Esterase Urine RBC Urine WBC Ur Squamous Epith Cells Urine Bacteria Hyaline Casts Urine Osmolality Ur Random Sodium Stool Occult Blood POSITIVE Urine Opiates Screen Urine Fentanyl Screen Ur Barbiturates Screen Ur Phencyclidine Scrn Ur Amphetamines Screen U Benzodiazepines Scrn Urine Cocaine Screen U Marijuana (THC) Screen Influenza Type A (PCR) Influenza Type B (PCR) RSV RNA Qual (PCR) SARS-CoV-2 RNA (RT-PCR) Blood Type O Positive Antibody Screen NEGATIVE 02/10/23 02/10/23 04:30 05:03 WBC 6.2 RBC 4.23 L Hgb 12.3 L Hct 37.0 L MCV 87.5 MCH 29.1 MCHC 33.2 RDW 17.4 H Plt Count 273 MPV 9.2 L Immature Gran % (Auto) 0.5 H Neut % (Auto) 69.0 Lymph % (Auto) 18.5 L [place] % (Auto) 10.7 Eos % (Auto) 0.8 Baso % (Auto) 0.5 Lymph # (Auto) 1.1 L [place] # (Auto) 0.7 Eos # (Auto) 0.1 Baso # (Auto) 0.0 Abs Immat Gran (auto) 0.03 Absolute Neuts (auto) 4.2 Absolute Nucleated RBC 0.000 Nucleated RBC % (auto) 0.0 PT 13.1 D INR 1.1 D APTT Sodium 134 L Potassium 4.0 Chloride 102 Carbon Dioxide 21 L Anion Gap 15 BUN 5 L Creatinine 0.76 Estim Creat Clear Calc 101.3 Estimated GFR > 60 Random Glucose 77 Osmolality Calcium 9.1 Magnesium 1.8 Total Bilirubin 1.1 H AST 53 H ALT 45 H Alkaline Phosphatase 108 Troponin I High Sens Total Protein 7.5 Albumin 4.0 Lipase Urine Color Urine Appearance Urine pH Ur Specific [place] Urine Protein Urine Glucose (UA) Urine Ketones Urine Blood Urine Nitrite Ur Leukocyte Esterase Urine RBC Urine WBC Ur Squamous Epith Cells Urine Bacteria Hyaline Casts Urine Osmolality 441 Ur Random Sodium 80.0 Stool Occult Blood Urine Opiates Screen Not Detected Urine Fentanyl Screen Not Detected Ur Barbiturates Screen POSITIVE H Ur Phencyclidine Scrn Not Detected Ur Amphetamines Screen Not Detected U Benzodiazepines Scrn Not Detected Urine Cocaine Screen Not Detected U Marijuana (THC) Screen Not Detected Influenza Type A (PCR) Influenza Type B (PCR) RSV RNA Qual (PCR) SARS-CoV-2 RNA (RT-PCR) Blood Type Antibody Screen Discharge Plan Discharge Anticipated Discharge Date/Time: 02/10/23 11:34 Patient Disposition: Home, Self-Care Discharge Diagnosis: supreatherapeutic inr, gi bleed Referrals: Nathalie Hsu MD [Primary Care Provider] - 1 Week Lisbeth Johnson MD [Physician] - 1 Week Discharge Medications: Continued melatonin 5 mg tablet 2 tab PO BEDTIME PRN (Reason: insomnia) olanzapine 5 mg tablet 1 tab PO BEDTIME warfarin 5 mg Tablet 5 mg PO DAILY acetaminophen 500 mg Tablet 500 mg PO BID PRN (Reason: Mild Pain (Scale Score 1-4)) buspirone 10 mg Tablet 10 mg PO TID albuterol sulfate [Ventolin HFA] 90 mcg/actuation Hfa Aerosol Inhaler 2 puff INHALATION Q4H PRN (Reason: Respiratory Distress) hydroxyzine pamoate 50 mg capsule 50 mg PO BEDTIME PRN (Reason: insomnia) oxycodone 5 mg tablet 5 mg PO Q6H PRN (Reason: pain) Qty: 14 0RF Rx Instructions: Patient may request partial refill; Partial Fill upon patient request. ondansetron 4 mg tablet,disintegrating 4 mg PO Q8H PRN (Reason: nausea and vomiting) Qty: 10 0RF budesonide-formoterol [Symbicort] 160-4.5 mcg/actuation HFA aerosol inhaler 2 puff inhalation BID zolpidem 10 mg tablet 10 mg PO BEDTIME PRN (Reason: Insomnia) pantoprazole 40 mg tablet,delayed release (DR/EC) 40 mg PO BID magnesium oxide 400 mg (241.3 mg magnesium) tablet 800 mg PO BID amlodipine 2.5 mg tablet 2.5 mg PO DAILY thiamine HCl (vitamin B1) 100 mg tablet 100 mg PO DAILY metoprolol succinate 50 mg tablet extended release 24 hr 50 mg PO DAILY atorvastatin 20 mg tablet 20 mg PO DAILY (DME) blood pressure test kit-large Kit See Rx Instructions .ROUTE DIRECTED Qty: 1 Rx Instructions: As directed folic acid 1 mg tablet 1 mg PO DAILY lidocaine 5 % adhesive patch,medicated 1 patch topical DAILY Protocol: Apply to: Apply to: AFFECTED AREA Entresto 24-26 mg tablet 1 tab PO BID Discontinued clopidogrel 75 mg tablet 1 tab PO DAILY Discharge Orders: Discharge Order (Routine); Ordered 02/10/23 Ordered By: Gerardo Marin Diet: no etoh Activity on Discharge: As tolerated Stand Alone Forms: Patient Portal Discharge page Care Plan Goals: recovery Health Concerns: supratherapeutic inr, gi bleed Plan of Treatment: restart coumadin and monitor closely, stop plavix, follow up with gi Assessment: see above
--- NOTE | 2023-02-10 13:45 | MHC.CM.PN ---
Pt was medically cleared for DC, he will go home via private transport, self care.
--- NOTE | 2023-02-10 14:00 | MHC.RECOVRN ---
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 Pt had presented to the ED reporting vomiting and diarrhea with bloody stool on coumadin. Upon evaluation, pt admitted for supratherapeutic INR, alcohol withdrawal, and GI bleed. Pt sitting on bed, awake, alert, easily engages in conversation, pleasant and looking forward to going home. Pt reports alcohol use, 8 beers daily off and on since age 20. Pt denies parental hx AUD, however reports brother has struggled with alcohol use and has gone with him to meetings. Pt is interested in reducing/abstaining, feels like he is able to stop independently. Discussed recovery resources and supports, pt declines referrals. Pt reports he has VNA and a psychiatrist he meets with weekly for support and does not need anything else. Pt denies other questions or concerns.
== END 2023-02-10 15:21 | disposition home or self-care (01) | DRG 253 ==
LOC: HO.ED 16:44 → HO.EDOVER 19:43 → HO.IMC 02-10 09:34
PROVIDERS: Physician Assistant Medical; Student in an Organized Health Care Education/Training Program; Admitting Provider Student in an Organized Health Care Education/Training Program; Emergency Provider Internal Medicine; PCP Family Medicine; Visit Provider Internal Medicine
DX: K92.2 Gastrointestinal hemorrhage, unspecified (principal); E87.1 Hypo-osmolality and hyponatremia; I50.22 Chronic systolic (congestive) heart failure; K70.9 Alcoholic liver disease, unspecified; F17.210 Nicotine dependence, cigarettes, uncomplicated; I25.10 Atherosclerotic heart disease of native coronary artery without angina pectoris; F10.139 Alcohol abuse with withdrawal, unspecified; R79.1 Abnormal coagulation profile; Z20.822 Contact with and (suspected) exposure to COVID-19; E83.42 Hypomagnesemia; Z95.2 Presence of prosthetic heart valve; Z95.1 Presence of aortocoronary bypass graft; Z95.0 Presence of cardiac pacemaker; Z71.6 Tobacco abuse counseling; Z79.01 Long term (current) use of anticoagulants; Z79.899 Other long term (current) drug therapy
CPT/HCPCS: 0241U; 36415; 70450; 71046; 72125; 74177; 80053; 80307; 81001; 82272; 83690; 83735; 83930; 83935; 84300; 84484; 85025; 85610; 85730; 86850; 86900; 86901; 93005; 99285; C9113; J2560; J3411; J3430; J3475; Q9967

== ENCOUNTER → 2023-02-09 19:38 | Outpatient (BNV) | payer MEDICAID, SELFPAY | PROVIDERS: Admitting Provider Student in an Organized Health Care Education/Training Program; Emergency Provider Internal Medicine; PCP Family Medicine; Visit Provider Student in an Organized Health Care Education/Training Program | DX: R79.1 Abnormal coagulation profile (principal); F10.939 Alcohol use, unspecified with withdrawal, unspecified; K92.2 Gastrointestinal hemorrhage, unspecified | CPT/HCPCS: 99223; 99239 ==

== ENCOUNTER 2023-03-03 09:52 | Outpatient (REF) | payer MEDICAID, SELFPAY ==
[2023-03-03 11:24] LABS: MANUAL DIFF FLAG NO
[2023-03-03 11:34] LABS: Basophils Absolute Auto 0.1 X10*3/uL (0.0-0.2); Basophils Percent Auto 1.1 % (0-2); Eosinophils Absolute Auto 0.1 X10*3/uL (0.0-0.4); Eosinophils Percent Auto 0.8 % (0-4); Hematocrit 33.3 % (42.0-52.0); Imm Gran Abs Auto 0.03 X10*3/uL (0.00-0.03); Imm Gran Pct Auto 0.4 % (0.0-0.4); Lymphocytes Absolute Auto 1.6 X10*3/uL (1.2-4.9); Lymphocytes Percent Auto 22.3 % (20-40); Mean Corpuscular Hemoglobin 29.6 pg (27.0-33.0); Mean Corpuscular Volume 89.5 fL (80.0-98.0); Mean Platelet Volume 9.4 fL (9.4-12.4); Monocytes Absolute Auto 0.6 X10*3/uL (0.1-1.2); Monocytes Percent Auto 8.1 % (2-11); Neutrophils Absolute Auto 4.9 x10*3/uL (2.0-8.3); Neutrophils Percent Auto 67.3 % (45-73); Platelet Count 408 X10*3/uL (160-400); Red Blood Count 3.72 X10*6/uL (4.60-5.80); Red Cell Distribution Width 18.1 % (11.0-16.0); White Blood Count 7.3 X10*3/uL (4.8-10.8)
[2023-03-03 12:12] LABS: Alanine Aminotransferase 17 U/L (0-40); Albumin Level 4.2 g/dL (3.5-5.0); Alkaline Phosphatase 89 U/L (39-117); Anion Gap 12 (12-20); Aspartate Amino Transferase 22 U/L (5-37); Bilirubin Direct 0.2 mg/dL (0.0-0.5); Bilirubin Total 0.3 mg/dL (0.0-1.0); Blood Urea Nitrogen 6 mg/dL (9-16); Calcium 9.4 mg/dL (8.4-10.2); Carbon Dioxide 25 mmol/L (22-29); Chloride 103 mmol/L (96-108); Estimated Glomerular Filt Rate > 60; Ferritin 26 ng/mL (20-250); Glucose Random 96 mg/dL (60-115); Iron 18 mcg/dL (45-160); Magnesium 1.6 mg/dL (1.6-2.6); Percent Iron Saturation 5 % (15-50); Sodium 136 mmol/L (135-145); Total Iron Binding Capacity 335 mcg/dL (228-428); Total Protein 7.9 g/dL (6.5-8.0); Unsaturated Iron Binding 317 ug/dL
[2023-03-03 12:15] LABS: Vitamin B12 259 pg/mL (200-900)
== END 2023-03-03 09:53 | disposition home or self-care (01) ==
LOC: HO.HHCL 09:52
PROVIDERS: Visit Provider Family Medicine
DX: K92.2 Gastrointestinal hemorrhage, unspecified (principal); E83.42 Hypomagnesemia; K70.9 Alcoholic liver disease, unspecified
CPT/HCPCS: 36415; 80048; 80076; 82607; 82728; 83540; 83735; 85025

== ENCOUNTER 2023-04-01 14:56 | Emergency (ER) | payer MEDICAID, SELFPAY ==
--- NOTE | ~2023-04-01 | CT_ITS ---
EXAMINATION: CT CERVICAL SPINE WITHOUT CONTRAST CLINICAL INFORMATION: Pain after head strike COMPARISON: 02/09/2023 TECHNIQUE: Thin section axial imaging with sagittal and coronal reformats are obtained. This CT examination was performed using dose optimization techniques as appropriate, variously including the following: *Automated exposure control *Adjustment of mA and/or kV according to patient size (this includes techniques or standardized protocols for targeted exams where dose is matched to indication/reason for exam; i.e. extremities or head) *Use of iterative reconstruction technique DLP: 420 mGy-cm FINDINGS: There is advanced degenerative change noted C5-C6 and C6-C7. No fracture or destructive process or significant encroachment on the spinal canal. The prevertebral soft tissues are normal. Incidental note is made of extensive atherosclerotic calcification in the right and left common carotid bulbs. CT/CT cervical spine wo IV con IMPRESSION: Multilevel degenerative change but no fracture. Fleischner guidelines were followed.
--- NOTE | ~2023-04-01 | CT_ITS ---
EXAMINATION: CT HEAD WITHOUT CONTRAST CLINICAL INFORMATION: Head strike. On blood thinners. COMPARISON: 02/09/2023 TECHNIQUE: Contiguous axial imaging was performed from the skull base to vertex without intravenous administration of contrast. This CT examination was performed using dose optimization techniques as appropriate, variously including the following: *Automated exposure control *Adjustment of mA and/or kV according to patient size (this includes techniques or standardized protocols for targeted exams where dose is matched to indication/reason for exam; i.e. extremities or head) *Use of iterative reconstruction technique DLP: 686 mGy-cm FINDINGS: Right temporal encephalomalacia unchanged. Areas of chronic ischemic change or gliosis are observed particularly in the posterior left frontal lobe. No change. There is prominence to the sulci and ventricles but no evidence for intra or extra-axial fluid collection, hemorrhage, mass, or mass effect. Post craniotomy changes overlie the left parietal bone. No change. No acute fracture. Small amount of fluid incidentally seen in the left maxillary sinus. CT/CT head/brain wo IV con IMPRESSION: No acute intracranial pathology. No evidence for intracranial hemorrhage.
--- NOTE | ~2023-04-01 | XR_ITS ---
EXAMINATION: XR CHEST CLINICAL INFORMATION: Shortness of breath after a fall COMPARISON: Chest x-ray February 10, 2020 TECHNIQUE: 2 views of the chest were obtained. FINDINGS: Status post median sternotomy for cardiac valve repair. No change position of pacemaker leads in right atrium and right ventricle. Vascular calcifications of thoracic aorta. No acute abnormality. There is no pulmonary vascular congestion. Lungs are normally aerated. No pleural effusion and no pneumothorax. XR/XR chest 2V IMPRESSION: No acute abnormality of the chest.
--- NOTE | 2023-04-01 14:59 | ECG_ITS ---
Test Reason : cp Blood Pressure : / mmHG Vent. Rate : 096 BPM Atrial Rate : 096 BPM P-R Int : 124 ms QRS Dur : 182 ms QT Int : 422 ms P-R-T Axes : -10 043 137 degrees QTc Int : 533 ms Atrial-sensed ventricular-paced rhythm with occasional Premature ventricular complexes Abnormal ECG When compared with ECG of 09-FEB-2023 11:22, Premature ventricular complexes are now Present Referred By: Generic ED Physician Electronically Signed By:YENIFER JJ
[2023-04-01 15:16] VITALS: BP 117/60; PULSE 86; RESP 22; TEMP 36.2; O2SAT 92; BMI 32.0
--- NOTE | 2023-04-01 15:16 | ED_ITS ---
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 Patient is an alcoholic and smoker who fell yesterday falling on buttock and side, causing a small laceration to buttock with ecchymosis. Onset (ago): day(s) Severity: mild Related Data Home Medications Medication Instructions Recorded Confirmed melatonin 5 mg tablet 2 tab PO BEDTIME PRN insomnia 10/18/20 02/09/23 amlodipine 2.5 mg tablet 2.5 mg PO DAILY 11/18/20 02/09/23 atorvastatin 20 mg tablet 20 mg PO DAILY 11/18/20 02/09/23 blood pressure test kit-large #1 ea 11/18/20 02/09/23 folic acid 1 mg tablet 1 mg PO DAILY 11/18/20 02/09/23 lidocaine 5 % topical patch 1 patch topical DAILY 11/18/20 02/09/23 magnesium oxide 400 mg (241.3 mg 800 mg PO BID 11/18/20 02/09/23 magnesium) tablet metoprolol succinate 50 mg 50 mg PO DAILY 11/18/20 02/09/23 tablet,extended release 24 hr pantoprazole 40 mg tablet,delayed 40 mg PO BID 11/18/20 02/09/23 release thiamine HCl (vitamin B1) 100 mg 100 mg PO DAILY 11/18/20 02/09/23 tablet zolpidem 10 mg tablet 10 mg PO BEDTIME PRN Insomnia 12/02/20 02/09/23 olanzapine 5 mg tablet 1 tab PO BEDTIME 10/10/21 02/09/23 acetaminophen 500 mg tablet 500 mg PO BID PRN Mild Pain (Scale 05/11/22 02/09/23 Score 1-4) albuterol sulfate 90 mcg/actuation 2 puff inhalation Q4H PRN 05/11/22 02/09/23 aerosol inhaler (Ventolin HFA) Respiratory Distress buspirone 10 mg tablet 10 mg PO TID 05/11/22 02/09/23 warfarin 5 mg tablet 5 mg PO DAILY 05/11/22 02/09/23 sacubitril 24 mg-valsartan 26 mg 1 tab PO BID 06/12/22 02/09/23 tablet (Entresto) hydroxyzine pamoate 50 mg capsule 50 mg PO BEDTIME PRN insomnia 11/17/22 02/09/23 budesonide-formoterol HFA 160 2 puff inhalation BID 02/09/23 02/09/23 mcg-4.5 mcg/actuation aerosol inhaler (Symbicort) Previous Rx's Medication Instructions Recorded ondansetron 4 mg disintegrating 4 mg PO Q8H PRN nausea and 10/21/22 tablet vomiting #10 tabs oxycodone 5 mg tablet 5 mg PO Q6H PRN pain #14 tabs 01/16/23 Allergies Allergy/AdvReac Type Severity Reaction Status Date / Time lorazepam [From ATIVAN] AdvReac Severe OPPOSITE Verified 04/01/23 15:19 EFFECT PSYCOTIC EFECTS Review of Systems 2 Review of Systems: Yes all other systems are reviewed and are negative Neurologic: Denies Sensory deficit (Neuro) [facility] Past Medical History Medical History Intracranial hemorrhage Coronary artery disease Chronic systolic CHF (congestive heart failure) Hypertension Short-segment Harrell's esophagus Pacemaker Skull fracture Alcoholic liver disease Cocaine abuse Alcohol abuse Surgical History S/P CABG (coronary artery bypass graft) H/O aortic valve replacement History of esophagogastroduodenoscopy (EGD) Aortic valve replaced Social History Social History Household Members: None Housing: Apartment Do you presently have visiting nurse or other home services: No Alcohol intake: current Alcohol intake frequency: a few times a week Alcohol type: beer Comment: refuses bed alarm Patient Tobacco Use Status: Current everyday Tobacco user Tobacco use type: Cigarette Cigarette Packs Per Day: 0.5 Cigarettes Per Day: 10.0 Second Hand Smoke Exposure: No Substance Use Type: Marijuana Advance Directives: Yes Advance Directives on File: Yes Advance Directives Date on File: 10/11/21 service: No Current occupational status: unemployed Physical Exam ED Vital Signs: Vital Signs - 24 hr 04/01/23 15:16 04/01/23 17:06 Temperature 97.2 F Pulse Rate 86 88 Respiratory Rate 22 H 20 Blood Pressure 117/60 149/58 H Pulse Oximetry 92 Oxygen Delivery Method Room Air BMI result Body Mass Index 32.0 Const Other: male looking much older than stated age Nutritional Appearance: average body habitus Orientation/consciousness: oriented to person and patient oriented x3 Limitations: no limitations HENMT Head: Yes normal to inspection Ears: external ears normal General nose exam: Normal external nose present Mouth: Normal oral and palatal mucosa present and oropharynx normal Throat: Yes posterior oropharynx normal Eyes General: appearance normal, both eyes and all related structures Neck Neck: Yes normal visual inspection Chest Chest palpation & inspection: normal inspection of the chest Resp Other: diffuse wheezing Cardio Jugular venous distension: no JVD Rate: regular rate Rhythm: regular rhythm Heart sounds: S1 normal heart sound present and S2 normal heart sound present GI Inspection: Yes normal to inspection Palpation (GI): Soft to palpation, nontender and No hepatosplenomegaly present Auscultation: normal bowel sounds General: Yes no CVA tenderness Back/Spine/Pelvis Back: no CVA tenderness Skin Other: ecchymosis to buttock with small skin tear, ecchymosis to left flank Neuro General: oriented to person and patient oriented x3 Cranial nerves: Yes CN's II-XII intact bilaterally Motor exam (neuro): 5/5 motor strength present throughout Sensory Exam: No Sensory deficit (Neuro) Extrem General: Yes normal to inspection Psych Appearance: grossly normal Course Course Course Narrative: RME:?63 yo male with pmhx of etoh abuse, CHF here w/ son for evaluation of head pain, chest pain, and SOB s/p unwitnessed fall last night. patient lives alone. son at bedside arrived at house aprox 1 hours ago, states pt told him he fell last night. does not remember how he fell or long he was down for. reports headache, unsure if he hit his hed. daily etoh consumption. hx of etoh withdrawal szs. on warfarin. +abrasion to left allen labs, ekg, trop, cxr, serology, CT ordered Full HPI, ROS and PE to be performed by the primary ED provider. Reevaluation(s) Reevaluation #1: smoking cessation: I spent 3 minutes counseling patient about the importance of smoking cessation and way to stop smoking. Reevaluation #2: Patient alert, ambulating well despite hyponatremia, his RBC is at baseline will not scan pelvis or abdomen. Patient to hold coumadin for 3 days and needs repeat of INR level Time: 17:41 Medical Decision Making Differential Diagnosis Differential Diagnoses: The differential diagnosis associated with the presentation includes (cerebral bleed, cervical fracture, abdominal bleed, rib fracture, ptx were all considered) Admission/Observation Consideration of admission/observation: Escalation of care including admission/observation considered (upon arrival patient was considered for admission) Lab Data MDM Lab Attestation statement: I reviewed the patient's lab results. (over anticoagulation, anemia, hyponatremia were all reviewed) 04/01/23 15:54 04/01/23 15:53 Labs: Lab Results 04/01/23 04/01/23 Range/Units 15:53 15:54 WBC 11.5 H (4.8-10.8) X10*3/uL RBC 3.83 L (4.60-5.80) X10*6/uL Hgb 11.0 L (14.0-18.0) g/dl Hct 32.4 L (42.0-52.0) % MCV 84.6 (80.0-98.0) fL MCH 28.7 (27.0-33.0) pg MCHC 34.0 (31.0-36.0) g/dl RDW 16.8 H (11.0-16.0) % Plt Count 384 (160-400) X10*3/uL MPV 8.8 L (9.4-12.4) fL Immature Gran % (Auto) 0.3 (0.0-0.4) % Neut % (Auto) 85.0 H (45-73) % Lymph % (Auto) 7.7 L (20-40) % [place] % (Auto) 6.4 (2-11) % Eos % (Auto) 0.2 (0-4) % Baso % (Auto) 0.4 (0-2) % Lymph # (Auto) 0.9 L (1.2-4.9) X10*3/uL [place] # (Auto) 0.7 (0.1-1.2) X10*3/uL Eos # (Auto) 0.0 (0.0-0.4) X10*3/uL Baso # (Auto) 0.1 (0.0-0.2) X10*3/uL Abs Immat Gran (auto) 0.04 H (0.00-0.03) X10*3/uL Absolute Neuts (auto) 9.8 H (2.0-8.3) x10*3/uL Absolute Nucleated RBC 0.000 (0.0-0.012) X10*3/uL Nucleated RBC % (auto) 0.0 (0.0-0.2) /100WBC PT 64.9 H D (11.1-13.3) SEC INR 5.3 H* D (0.9-1.1) Sodium 124 L (135-145) mmol/L Potassium 4.8 (3.3-5.1) mmol/L Chloride 93 L (96-108) mmol/L Carbon Dioxide 21 L (22-29) mmol/L Anion Gap 15 (12-20) BUN 8 L (9-16) mg/dL Creatinine 0.84 (0.5-1.4) mg/dL Estim Creat Clear Calc 95.6 Estimated GFR > 60 Random Glucose 84 (60-115) mg/dL Calcium 9.2 (8.4-10.2) mg/dL Magnesium 1.4 L* (1.6-2.6) mg/dL Total Bilirubin 0.5 (0.0-1.0) mg/dL AST 36 (5-37) U/L ALT 21 (0-40) U/L Alkaline Phosphatase 90 (39-117) U/L Total Creatine Kinase 459 H (38-174) U/L Troponin I High Sens 6.7 (<3.5-35.0) ng/L B-Natriuretic Peptide 138 H (<100) pg/mL Total Protein 8.1 H (6.5-8.0) g/dL Albumin 4.2 (3.5-5.0) g/dL Lipase 10 (8-78) U/L Ethyl Alcohol < 10 mg/dL Influenza Type A (PCR) NEGATIVE (Negative) Influenza Type B (PCR) NEGATIVE (Negative) RSV RNA Qual (PCR) NEGATIVE (Negative) SARS-CoV-2 RNA (RT-PCR) NEGATIVE (Negative) Independent Interpretation I performed an independent interpretation of an: EKG (sinus 90 with ventricular pacing, no st or twave changes), Plain X-Ray (CXR: no rib fracture no infiltrate) and CT Scan (brain with atrophy, no bleed) Radiology Impression Discussion of test interpretation with radiology: I have reviewed the radiologist's reading. Independent Historian Clinical information obtained from an independent historian. History obtained from or confirmed by: Other (son) External Record Review External record reviewed: Outpatient record Chronic Conditions Patient?s care impacted by: Hypertension and Other (afib, chf) Social Determinants Patient?s care significantly limited by Social Determinants of Health including: Alcoholism and drug addiction in family Discharge Plan Discharge Clinical Impression: Alcohol abuse, Warfarin toxicity, Alcoholic liver disease, Ecchymosis, Acute hyponatremia Patient Disposition: Home, Self-Care Instructions: Liver Disease Diet (DC), Hyponatremia (ED), Abuse of Alcohol (ED), Blood Thinners (ED) Additional Instructions: Hold coumadin for 3 days and then have INR repeated. Liberalize salt in your diet, must stop drinking alcohol Prescriptions: No Action melatonin 5 mg tablet 2 tab PO BEDTIME PRN (Reason: insomnia) olanzapine 5 mg tablet 1 tab PO BEDTIME warfarin 5 mg Tablet 5 mg PO DAILY acetaminophen 500 mg Tablet 500 mg PO BID PRN (Reason: Mild Pain (Scale Score 1-4)) buspirone 10 mg Tablet 10 mg PO TID albuterol sulfate [Ventolin HFA] 90 mcg/actuation Hfa Aerosol Inhaler 2 puff INHALATION Q4H PRN (Reason: Respiratory Distress) hydroxyzine pamoate 50 mg capsule 50 mg PO BEDTIME PRN (Reason: insomnia) oxycodone 5 mg tablet 5 mg PO Q6H PRN (Reason: pain) Qty: 14 0RF Rx Instructions: Patient may request partial refill; Partial Fill upon patient request. ondansetron 4 mg tablet,disintegrating 4 mg PO Q8H PRN (Reason: nausea and vomiting) Qty: 10 0RF budesonide-formoterol [Symbicort] 160-4.5 mcg/actuation HFA aerosol inhaler 2 puff inhalation BID zolpidem 10 mg tablet 10 mg PO BEDTIME PRN (Reason: Insomnia) pantoprazole 40 mg tablet,delayed release (DR/EC) 40 mg PO BID magnesium oxide 400 mg (241.3 mg magnesium) tablet 800 mg PO BID amlodipine 2.5 mg tablet 2.5 mg PO DAILY thiamine HCl (vitamin B1) 100 mg tablet 100 mg PO DAILY metoprolol succinate 50 mg tablet extended release 24 hr 50 mg PO DAILY atorvastatin 20 mg tablet 20 mg PO DAILY (DME) blood pressure test kit-large Kit See Rx Instructions .ROUTE DIRECTED Qty: 1 Rx Instructions: As directed folic acid 1 mg tablet 1 mg PO DAILY lidocaine 5 % adhesive patch,medicated 1 patch topical DAILY Protocol: Apply to: Apply to: AFFECTED AREA Entresto 24-26 mg tablet 1 tab PO BID Referrals: Nathalie Hsu MD [Primary Care Provider] - 2 days
[2023-04-01 15:59] LABS: MANUAL DIFF FLAG NO
[2023-04-01 16:00] LABS: Basophils Absolute Auto 0.1 X10*3/uL (0.0-0.2); Basophils Percent Auto 0.4 % (0-2); Eosinophils Percent Auto 0.2 % (0-4); Hematocrit 32.4 % (42.0-52.0); Imm Gran Abs Auto 0.04 X10*3/uL (0.00-0.03); Imm Gran Pct Auto 0.3 % (0.0-0.4); Lymphocytes Absolute Auto 0.9 X10*3/uL (1.2-4.9); Lymphocytes Percent Auto 7.7 % (20-40); Mean Corpuscular Hemoglobin 28.7 pg (27.0-33.0); Mean Corpuscular Volume 84.6 fL (80.0-98.0); Mean Platelet Volume 8.8 fL (9.4-12.4); Monocytes Absolute Auto 0.7 X10*3/uL (0.1-1.2); Monocytes Percent Auto 6.4 % (2-11); Neutrophils Absolute Auto 9.8 x10*3/uL (2.0-8.3); Platelet Count 384 X10*3/uL (160-400); Red Blood Count 3.83 X10*6/uL (4.60-5.80); Red Cell Distribution Width 16.8 % (11.0-16.0); White Blood Count 11.5 X10*3/uL (4.8-10.8)
[2023-04-01 16:13] LABS: Prothrombin Time 64.9 SEC (11.1-13.3)
[2023-04-01 16:17] LABS: INTERNATIONAL NORM RATIO 5.3 (0.9-1.1)
[2023-04-01 16:18] LABS: Alanine Aminotransferase 21 U/L (0-40); Albumin Level 4.2 g/dL (3.5-5.0); Alkaline Phosphatase 90 U/L (39-117); Anion Gap 15 (12-20); Aspartate Amino Transferase 36 U/L (5-37); Bilirubin Total 0.5 mg/dL (0.0-1.0); Blood Urea Nitrogen 8 mg/dL (9-16); Calcium 9.2 mg/dL (8.4-10.2); Carbon Dioxide 21 mmol/L (22-29); Chloride 93 mmol/L (96-108); Creatinine Clr Calc Pharmacy 95.6; Estimated Glomerular Filt Rate > 60; Ethanol < 10 mg/dL; Glucose Random 84 mg/dL (60-115); Lipase 10 U/L (8-78); Magnesium 1.4 mg/dL (1.6-2.6); Potassium 4.8 mmol/L (3.3-5.1); Sodium 124 mmol/L (135-145); Total Protein 8.1 g/dL (6.5-8.0)
[2023-04-01 16:19] LABS: B Type Natriuretic Peptide 138 pg/mL (<100)
[2023-04-01 16:21] LABS: Troponin-I High Sensitivity 6.7 ng/L (<3.5-35.0)
[2023-04-01 16:50] LABS: Influenza A PCR NEGATIVE (Negative); Influenza B PCR NEGATIVE (Negative); Resp Syncy Virus RNA Qual PCR NEGATIVE (Negative); SARS COV2 PCR INHOUSE NEGATIVE (Negative)
[2023-04-01 17:06] VITALS: BP 149/58; PULSE 88; RESP 20
--- NOTE | 2023-04-01 17:08 | PC.NURSE ---
PT HAS MULTIPLE BRUISING ON HIS FLANK,BUTTOCKS -SKIN TEAR PRESENT AND ABRASION ON HIS KNEE
[2023-04-01] MEDS: Diphth,Pertus(ACell),Tet Adult 0.5 ML SYRINGE IM (18:54)
[2023-04-01] MEDS: Acetaminophen 325 MG TABLET 650 MG PO (18:57)
--- NOTE | 2023-04-01 19:15 | PC.NURSE ---
pt a&o x4, pleasant, calm, and cooperative. ivorian speaking only. pt reports abdomen and chest pain from fall. sts he was drinking all weekend for the holidays. is not going to drink alcohol anymore. pt medicated per mar for pain and tetanus vaccine. pt has bruising to left buttocks. t/w went to floor to grab pink foam since ED out of stock. pt lost patience after being discharged and left without dressing. pt with steady gait.
== END 2023-04-01 19:18 | disposition home or self-care (01) ==
PROVIDERS: Physician Assistant Medical; Emergency Provider Emergency Medicine; PCP Family Medicine
DX: T45.511A Poisoning by anticoagulants, accidental (unintentional), initial encounter (principal); S31.801A Laceration without foreign body of unspecified buttock, initial encounter; R07.9 Chest pain, unspecified; R51.9 Headache, unspecified; E87.1 Hypo-osmolality and hyponatremia; F12.90 Cannabis use, unspecified, uncomplicated; F17.210 Nicotine dependence, cigarettes, uncomplicated; I11.0 Hypertensive heart disease with heart failure; I50.22 Chronic systolic (congestive) heart failure; K70.9 Alcoholic liver disease, unspecified; W18.30XA Fall on same level, unspecified, initial encounter; Y92.9 Unspecified place or not applicable; Y99.9 Unspecified external cause status; Y93.9 Activity, unspecified; Y90.0 Blood alcohol level of less than 20 mg/100 ml; S80.812A Abrasion, left lower leg, initial encounter; Z20.822 Contact with and (suspected) exposure to COVID-19; Z20.828 Contact with and (suspected) exposure to other viral communicable diseases; Z79.899 Other long term (current) drug therapy; Z23 Encounter for immunization; Z95.0 Presence of cardiac pacemaker; Z95.1 Presence of aortocoronary bypass graft; Z79.01 Long term (current) use of anticoagulants; Z95.2 Presence of prosthetic heart valve
CPT/HCPCS: 0241U; 36415; 70450; 71046; 72125; 80053; 80307; 82550; 83690; 83735; 83880; 84484; 85025; 85610; 90471; 90715; 93005; 99284; 99285

== ENCOUNTER → 2023-04-01 14:59 | Outpatient (BNV) | payer MEDICAID, SELFPAY | PROVIDERS: Emergency Provider Emergency Medicine; PCP Family Medicine; Visit Provider Internal Medicine | DX: I49.3 Ventricular premature depolarization (principal); I49.1 Atrial premature depolarization | CPT/HCPCS: 93010 ==

== ENCOUNTER 2023-04-02 07:27 | Inpatient (IN) | payer MEDICAID, SELFPAY ==
[2023-04-02] VITALS (7 sets, daily range): BP systolic 91–138; BP diastolic 50–77; PULSE 85–111; RESP 11–20; TEMP 36.1–36.4; O2SAT 92–97; BMI 28.0
--- NOTE | ~2023-04-02 | CT_ITS ---
STUDY: Unenhanced CT of the chest, abdomen and pelvis INDICATION: Fall, abdominal and chest trauma greater than 24 hours. COMPARISON: 04/01/2023 chest radiograph. 02/09/[address], 01/16/[address] TECHNIQUE: Continuous helical imaging obtained through the chest, abdomen and pelvis without IV contrast. Oral contrast was also not administered. Reconstructed images performed in the coronal and sagittal planes. This CT examination was performed using dose optimization techniques as appropriate, variously including the following: *Automated exposure control *Adjustment of mA and/or kV according to patient size (this includes techniques or standardized protocols for targeted exams where dose is matched to indication/reason for exam; i.e. extremities or head) *Use of iterative reconstruction technique TOTAL EXAM DLP: 656 mGy-cm for abdomen and pelvis, 255 mGy-cm for chest FINDINGS: ACLS SPECIALIST: Median sternotomy wires, valve replacement, pacer. Clear lungs. Nonobstructive bowel pattern. CHEST: Airways and lungs: Trachea and bronchi are patent. Evaluation of the lung colon limited due to respiratory motion. Atelectasis. Residual bilateral patchy bilateral groundglass and reticular opacities again seen with overall improvement. 5 mm right middle lobe nodule, 10:83, 7:32, previously measured 3 mm. Other scattered 2-3 mm pulmonary nodules again identified. Pleura: No effusions, pneumothoraces or masses. Mild thickening adjacent to old displaced left posterolateral rib fracture again seen. Mediastinum: Unremarkable thyroid. Small hiatal hernia with diffusely dilated esophagus. Multiple prominent spinal lymph nodes again identified possible enlargement 1.7 cm left paratracheal lymph node, previously 1.6 cm. Heart and great vessels: Enlarged heart. Trace pericardial effusion. Degree of coronary calcifications: At least moderately severe with stenting. Pacer and aortic valve replacement. Nonaneurysmal aorta with atherosclerotic calcifications extending into the branch vessels not enlarged pulmonary arteries. Chest wall and axilla: Hyperdensities adjacent to the left pectoralis. Mild gynecomastia. Nonspecific axillary lymph nodes. ABDOMEN AND PELVIS: Study limited by motion. Hepatobiliary: Diffuse hypodensity to the liver parenchyma. No liver lesions, intra or extrahepatic biliary ductal dilatation. Unchanged appearance of the intact spleen with calcification. Pancreas and adrenal glands are unremarkable. Kidneys stable in appearance including punctate left upper pole calcification. Unremarkable ureters and bladder. Decompressed stomach. Nonobstructive bowel pattern. Decompressed descending colon. Mildly prominent prostate. Pelvic phleboliths. Atherosclerotic calcifications nonaneurysmal aorta and branch vessels. Normal caliber inferior vena cava. No pathologic lymphadenopathy. BONES AND SOFT TISSUES: Old displaced left posterolateral rib fracture with mild pleural thickening. Median sternotomy wires. No change moderate T12, mild L1 superior endplate compression deformities. No change leftL2-L3 disc bulge with impression on the thecal sac. Again noted, L4-L5 disc bulge with ligamentum flavum and facet hypertrophy, likely right neuroforaminal encroachment and broad L5-S1 disc bulge with vacuum disc phenomena and bilateral neuroforaminal encroachment. Left buttock soft tissue stranding, likely post traumatic. No organized hematomas. CT/CT abdomen pelvis wo IV con IMPRESSION: No acute intrathoracic, intra-abdominal or pelvic pathology status. Left buttock soft tissue stranding, likely posttraumatic. Improved, but residual bilateral pulmonary opacities. Interval enlargement right middle lobe pulmonary nodule, now 5 mm. Slight enlargement left paratracheal lymph node. 3 month follow-up LDCT recommended. No change small hiatal hernia and punctate nonobstructing left upper pole renal calculus.
--- NOTE | 2023-04-02 07:36 | ECG_ITS ---
Test Reason : CHEST PAIN Blood Pressure : / mmHG Vent. Rate : 105 BPM Atrial Rate : 105 BPM P-R Int : 130 ms QRS Dur : 180 ms QT Int : 412 ms P-R-T Axes : 030 078 253 degrees QTc Int : 544 ms Atrial-sensed ventricular-paced rhythm with occasional Premature ventricular complexes Abnormal ECG When compared with ECG of 01-APR-2023 15:05, Vent. rate has increased BY 9 BPM Referred By: Christ Restrepo Electronically Signed By:YENIFER JJ
--- NOTE | 2023-04-02 07:50 | ED.CHESTPAIN ---
HPI - Chest Pain General Chief Complaint: Chest Pain Stated Complaint: CP Time Seen by Provider: 04/02/23 07:31 Source: patient Mode of arrival: ambulatory Limitations: no limitations History of Present Illness HPI narrative: 63-year-old male presents complaints of chest pain, back pain, pain to his right buttocks, feels shaky and anxious, patient reports chest pain is substernal, nonradiating, patient reports a fall few days ( wednesday) ago he said he came here he had a head scan of his head, and discharged home. Patient reports he has a history of alcohol abuse last drink was on [place]. No history of alcohol withdrawal seizures or delirium tremens per patient. He reports he just does not feel right and feels muscle soreness throughout. On cumadin Related Data Home Medications Medication Instructions Recorded Confirmed melatonin 5 mg tablet 2 tab PO BEDTIME PRN insomnia 10/18/20 02/09/23 amlodipine 2.5 mg tablet 2.5 mg PO DAILY 11/18/20 02/09/23 atorvastatin 20 mg tablet 20 mg PO DAILY 11/18/20 02/09/23 blood pressure test kit-large #1 ea 11/18/20 02/09/23 folic acid 1 mg tablet 1 mg PO DAILY 11/18/20 02/09/23 lidocaine 5 % topical patch 1 patch topical DAILY 11/18/20 02/09/23 magnesium oxide 400 mg (241.3 mg 800 mg PO BID 11/18/20 02/09/23 magnesium) tablet metoprolol succinate 50 mg 50 mg PO DAILY 11/18/20 02/09/23 tablet,extended release 24 hr pantoprazole 40 mg tablet,delayed 40 mg PO BID 11/18/20 02/09/23 release thiamine HCl (vitamin B1) 100 mg 100 mg PO DAILY 11/18/20 02/09/23 tablet zolpidem 10 mg tablet 10 mg PO BEDTIME PRN Insomnia 12/02/20 02/09/23 olanzapine 5 mg tablet 1 tab PO BEDTIME 10/10/21 02/09/23 acetaminophen 500 mg tablet 500 mg PO BID PRN Mild Pain (Scale 05/11/22 02/09/23 Score 1-4) albuterol sulfate 90 mcg/actuation 2 puff inhalation Q4H PRN 05/11/22 02/09/23 aerosol inhaler (Ventolin HFA) Respiratory Distress buspirone 10 mg tablet 10 mg PO TID 05/11/22 02/09/23 warfarin 5 mg tablet 5 mg PO DAILY 05/11/22 02/09/23 sacubitril 24 mg-valsartan 26 mg 1 tab PO BID 06/12/22 02/09/23 tablet (Entresto) hydroxyzine pamoate 50 mg capsule 50 mg PO BEDTIME PRN insomnia 11/17/22 02/09/23 budesonide-formoterol HFA 160 2 puff inhalation BID 02/09/23 02/09/23 mcg-4.5 mcg/actuation aerosol inhaler (Symbicort) Previous Rx's Medication Instructions Recorded ondansetron 4 mg disintegrating 4 mg PO Q8H PRN nausea and 10/21/22 tablet vomiting #10 tabs oxycodone 5 mg tablet 5 mg PO Q6H PRN pain #14 tabs 01/16/23 Allergies Allergy/AdvReac Type Severity Reaction Status Date / Time lorazepam [From ATIVAN] AdvReac Severe OPPOSITE Verified 04/01/23 15:19 EFFECT PSYCOTIC EFECTS Review of Systems Review of Systems: Constitutional : No Weight loss, No Fever, No Chills, No Fatigue, No Malaise ENT/Mouth : No sore throat, No Rhinorrhea Eyes: No Eye Pain, No Swelling, No Redness Cardiovascular : + Chest Pain, No SOB, No Dyspnea on Exertion, No Orthopnea, No Edema, No Palpitations Respiratory : No Cough, No Sputum, No Wheezing Gastrointestinal : No Nausea, No Vomiting, No Diarrhea, No Constipation, No abdominal Pain, No Hematochezia, No Melena Genitourinary : No Dysuria, No Urinary Frequency, No Hematuria, Musculoskeletal : No joint pain, + Myalgias, No Joint Swelling Skin : No Skin Lesions, No rash Neuro : No Weakness, No Numbness, No Dizziness, No Headache Psych : + Anxiety/Panic, No Depression All other systems reviewed and are negative Yes all other systems are reviewed and are negative [facility] Past Medical History Attestation statement: The following information was validated with the patient. Source: old records reviewed and nursing notes reviewed Medical History Intracranial hemorrhage Coronary artery disease Chronic systolic CHF (congestive heart failure) Hypertension Short-segment Harrell's esophagus Pacemaker Skull fracture Alcoholic liver disease Cocaine abuse Alcohol abuse Surgical History S/P CABG (coronary artery bypass graft) H/O aortic valve replacement History of esophagogastroduodenoscopy (EGD) Aortic valve replaced Social History Social History Household Members: None Housing: Apartment Do you presently have visiting nurse or other home services: No Alcohol intake: current Alcohol intake frequency: 0-2 drinks per day Alcohol type: beer Comment: refuses bed alarm Patient Tobacco Use Status: Current everyday Tobacco user Tobacco use type: Cigarette Cigarette Packs Per Day: 0.5 Cigarettes Per Day: 10.0 Smoked in Last 30 Days: Yes Second Hand Smoke Exposure: No Use of substances other than those prescribed or required for medical reasons: No Substance Use Type: Marijuana Advance Directives: Yes Advance Directives on File: Yes Advance Directives Date on File: 10/11/21 service: No Current occupational status: unemployed Physical Exam Vital Signs: Vital Signs: Last Vital Signs Pulse 109 H 04/02/23 10:21 Resp 20 04/02/23 10:21 BP 138/77 04/02/23 10:21 Pulse Ox 95 04/02/23 10:21 O2 Del Method Room Air 04/02/23 10:21 BMI result Body Mass Index 28.0 noted to be tachycardic. Appearance: Alert.? Oriented X3.? No acute distress.? Head: Normocephalic, atraumatic, no step-offs or deformities Eyes: Pupils equal, round and reactive to light.? ENT: Pharynx normal.? Neck: Normal inspection.? Neck supple.? CVS: rapid regular rhythm likely sinus tachycardia with a heart rate around 130 beats per minute. Pulses normal.? Respiratory: No respiratory distress.? Breath sounds normal.? Abdomen: Soft and nontender.? Skin: Skin warm and dry.? Normal skin color.? Normal skin turgor.?+ noted to have ecchymosis to his right flank, right buttocks, right lower quadrant. Extremities: No lower extremity edema.? No calf ttp. 5/5 strength to bilateral upper and lower extremities UE fine tremors noted Back: No midline tenderness, no C-spine tenderness, full range of motion, no CVA tenderness bilaterally Neuro: Oriented X 3.? No motor deficit.? No sensory deficit. CN 2-12 intact. No saddle paresthesias, ambulating with steady gait normal coordination. Course Reevaluation(s) Reevaluation #1: CBC with a normocytic anemia that appears to be around his baseline. Chemistry low sodium 130, improved from yesterday normal Mag today however we did replete magnesium, EKG nonischemic troponin 6.9. Total CPK 465 not consistent with rhabdo. Patient is still supratherapeutic INR 4.3 improving from yesterday. Yesterday patient had a unremarkable CT of the head. Today CT chest, abdomen pelvis obtained. CT chest no acute intrathoracic, CT abdomen no acute intra-abdominal or pelvic pathology. There is left buttock soft tissue stranding likely posttraumatic from fall on Wednesday. Stable H&H I do not suspect active bleeding at this time. Patient is an evident alcohol withdrawal on will require hospital admission he has been here 2 days in a row now. Last drink was on the . Plan at this time hospital admission Time: 10:54 Medications Administered Discontinued Medications Generic Name Dose Route Start Last Admin Trade Name Jessenia PRN Reason Stop Dose Admin Magnesium Sulfate 2 gm in 50 mls @ 25 mls/hr 04/02/23 07:48 04/02/23 09:12 Magnesium Sulfate/H2o IV 04/02/23 09:47 25 mls/hr ONCE ONE Administration Thiamine HCl 200 mg/ Sodium 102 mls @ 204 mls/hr 04/02/23 07:48 04/02/23 09:37 Chloride IV 04/02/23 08:17 204 mls/hr ONCE ONE Infusion Folic Acid 1 mg/ Sodium 50.2 mls @ 100.4 mls/hr 04/02/23 07:48 04/02/23 09:30 Chloride IV 04/02/23 08:17 100 mls/hr ONCE ONE Infusion Lorazepam 2 mg 04/02/23 07:47 04/02/23 09:12 Lorazepam 2 Mg/Ml Vial IVPUSH 04/02/23 07:48 2 mg ONCE ONE Administration Morphine Sulfate 4 mg 04/02/23 07:52 04/02/23 09:11 Morphine Sulfate 4 Mg/Ml Cartridge IVPUSH 04/02/23 07:53 4 mg ONCE ONE Administration Protocol Medical Decision Making Medical Decision Making [facility] Narrative: [id number] 63-year-old male presents with body aches and pains, fatigue, malaise, anxiety, chest pain, daily drinker last drink was [place] however. Recent fall on Wednesday the reporting pain throughout. Physical exam rapid regular rhythm likely sinus tachycardia with a heart rate around 130 beats per minute. Also noted to have ecchymosis to his right flank, right buttocks, right lower quadrant. No saddle paresthesias, ambulating with steady gait normal coordination. No midline neck tenderness or midline tenderness to back/spine. Alert and oriented x4 On my exam CIWA- 9 Concerns for acute alcohol withdrawal versus hyponatremia versus beer potomania versus electrolyte abnormalities. Will rule out traumatic injuries to chest, abdomen and pelvis as there is traumatic ecchymosis from fall on Wednesday and he was not scanned his last visit. Will also rule out rhabdomyolysis. Unlikely ACS, pulmonary embolism, dissection. No signs of pneumonia or respiratory distress at this time Patient placed on seizure precaution Patient will require hospital admission 2 mg of IV Ativan ordered to raise seizure threshold. Differential Diagnosis Differential Diagnoses: The differential diagnosis associated with the presentation includes Concerns for acute alcohol withdrawal versus hyponatremia versus beer potomania versus electrolyte abnormalities. Will rule out traumatic injuries to chest, abdomen and pelvis as there is traumatic ecchymosis from fall on Wednesday and he was not scanned his last visit. Will also rule out rhabdomyolysis. Unlikely ACS, pulmonary embolism, dissection. No signs of pneumonia or respiratory distress at this time Admission/Observation Consideration of admission/observation: Escalation of care including admission/observation considered likely Lab Data MDM Lab Attestation statement: I reviewed the patient's lab results. 04/02/23 09:06 04/02/23 09:06 Labs: Lab Results 04/02/23 04/02/23 Range/Units 09:06 10:28 WBC 8.2 (4.8-10.8) X10*3/uL RBC 3.83 L (4.60-5.80) X10*6/uL Hgb 10.9 L (14.0-18.0) g/dl Hct 32.2 L (42.0-52.0) % MCV 84.1 (80.0-98.0) fL MCH 28.5 (27.0-33.0) pg MCHC 33.9 (31.0-36.0) g/dl RDW 17.0 H (11.0-16.0) % Plt Count 415 H (160-400) X10*3/uL MPV 9.3 L (9.4-12.4) fL Immature Gran % (Auto) 0.5 H (0.0-0.4) % Neut % (Auto) 81.8 H (45-73) % Lymph % (Auto) 8.6 L (20-40) % Woods % (Auto) 8.5 (2-11) % Eos % (Auto) 0.1 (0-4) % Baso % (Auto) 0.5 (0-2) % Lymph # (Auto) 0.7 L (1.2-4.9) X10*3/uL [place] # (Auto) 0.7 (0.1-1.2) X10*3/uL Eos # (Auto) 0.0 (0.0-0.4) X10*3/uL Baso # (Auto) 0.0 (0.0-0.2) X10*3/uL Abs Immat Gran (auto) 0.04 H (0.00-0.03) X10*3/uL Absolute Neuts (auto) 6.7 (2.0-8.3) x10*3/uL Absolute Nucleated RBC 0.000 (0.0-0.012) X10*3/uL Nucleated RBC % (auto) 0.0 (0.0-0.2) /100WBC PT 52.0 H (11.1-13.3) SEC INR 4.3 H (0.9-1.1) Sodium 130 L (135-145) mmol/L Potassium 4.2 (3.3-5.1) mmol/L Chloride 98 (96-108) mmol/L Carbon Dioxide 22 (22-29) mmol/L Anion Gap 14 (12-20) BUN 11 (9-16) mg/dL Creatinine 0.92 (0.5-1.4) mg/dL Estim Creat Clear Calc 82.1 Estimated GFR > 60 Random Glucose 114 (60-115) mg/dL Calcium 9.7 (8.4-10.2) mg/dL Magnesium 1.6 (1.6-2.6) mg/dL Total Bilirubin 0.6 (0.0-1.0) mg/dL AST 44 H (5-37) U/L ALT 26 (0-40) U/L Alkaline Phosphatase 92 (39-117) U/L Total Creatine Kinase 465 H (38-174) U/L Troponin I High Sens 6.9 (<3.5-35.0) ng/L Total Protein 8.2 H (6.5-8.0) g/dL Albumin 4.1 (3.5-5.0) g/dL Urine Color Yellow Urine Appearance Clear Urine pH 6.0 (5.0-9.0) Ur Specific [place] 1.010 (1.005-1.025) Urine Protein Trace (Neg-Trace) mg/dL Urine Glucose (UA) Negative (Negative) mg/dL Urine Ketones Trace (Negative) mg/dL Urine Blood Negative (Negative) Urine Nitrite Negative (Negative) Ur Leukocyte Esterase Negative (Negative) Ethyl Alcohol < 10 mg/dL Blood Type O Positive Antibody Screen NEGATIVE Independent Interpretation I performed an independent interpretation of an: EKG and CT Scan Radiology Impression Discussion of test interpretation with radiology: I have reviewed the radiologist's reading. External Record Review External record reviewed: Inpatient record, Office record, Outpatient record, Prior outpatient labs, Prior outpatient radiology, Primary care record and Outside ED record Critical Care Time Critical Care Time Critical Care Time: Yes Total Critical Care Time: 35 Attestation: I attest to this time spent taking care of the patient, obtaining history, physical, reviewing labs, imaging, speaking to my attending, speaking to specialist. Discharge Plan Discharge Clinical Impression: Alcohol withdrawal, Acute hyponatremia Patient Disposition: Admitted As Inpatient Prescriptions: No Action melatonin 5 mg tablet 2 tab PO BEDTIME PRN (Reason: insomnia) olanzapine 5 mg tablet 1 tab PO BEDTIME warfarin 5 mg Tablet 5 mg PO DAILY acetaminophen 500 mg Tablet 500 mg PO BID PRN (Reason: Mild Pain (Scale Score 1-4)) buspirone 10 mg Tablet 10 mg PO TID albuterol sulfate [Ventolin HFA] 90 mcg/actuation Hfa Aerosol Inhaler 2 puff INHALATION Q4H PRN (Reason: Respiratory Distress) hydroxyzine pamoate 50 mg capsule 50 mg PO BEDTIME PRN (Reason: insomnia) oxycodone 5 mg tablet 5 mg PO Q6H PRN (Reason: pain) Qty: 14 0RF Rx Instructions: Patient may request partial refill; Partial Fill upon patient request. ondansetron 4 mg tablet,disintegrating 4 mg PO Q8H PRN (Reason: nausea and vomiting) Qty: 10 0RF budesonide-formoterol [Symbicort] 160-4.5 mcg/actuation HFA aerosol inhaler 2 puff inhalation BID zolpidem 10 mg tablet 10 mg PO BEDTIME PRN (Reason: Insomnia) pantoprazole 40 mg tablet,delayed release (DR/EC) 40 mg PO BID magnesium oxide 400 mg (241.3 mg magnesium) tablet 800 mg PO BID amlodipine 2.5 mg tablet 2.5 mg PO DAILY thiamine HCl (vitamin B1) 100 mg tablet 100 mg PO DAILY metoprolol succinate 50 mg tablet extended release 24 hr 50 mg PO DAILY atorvastatin 20 mg tablet 20 mg PO DAILY (DME) blood pressure test kit-large Kit See Rx Instructions .ROUTE DIRECTED Qty: 1 Rx Instructions: As directed folic acid 1 mg tablet 1 mg PO DAILY lidocaine 5 % adhesive patch,medicated 1 patch topical DAILY Protocol: Apply to: Apply to: AFFECTED AREA Entresto 24-26 mg tablet 1 tab PO BID
[2023-04-02] MEDS: Morphine Sulfate 4 MG/ML CARTRIDGE IVPUSH (09:11)
[2023-04-02] MEDS: Folic Acid 1 MG in 0.9 % Sodium Chloride 50 ML 100.4 MG IV (09:12)
[2023-04-02] MEDS: Magnesium Sulfate/H2O 2 GM/50 ML PIGGYBACK IV (09:12)
[2023-04-02] MEDS: LORazepam 2 MG/ML VIAL IVPUSH (09:12)
[2023-04-02 09:14] LABS: MANUAL DIFF FLAG NO
[2023-04-02 09:18] LABS: Basophils Percent Auto 0.5 % (0-2); Eosinophils Percent Auto 0.1 % (0-4); Hematocrit 32.2 % (42.0-52.0); Hemoglobin 10.9 g/dl (14.0-18.0); Imm Gran Abs Auto 0.04 X10*3/uL (0.00-0.03); Imm Gran Pct Auto 0.5 % (0.0-0.4); Lymphocytes Absolute Auto 0.7 X10*3/uL (1.2-4.9); Lymphocytes Percent Auto 8.6 % (20-40); Mean Corpuscular HGB Conc 33.9 g/dl (31.0-36.0); Mean Corpuscular Hemoglobin 28.5 pg (27.0-33.0); Mean Corpuscular Volume 84.1 fL (80.0-98.0); Mean Platelet Volume 9.3 fL (9.4-12.4); Monocytes Absolute Auto 0.7 X10*3/uL (0.1-1.2); Monocytes Percent Auto 8.5 % (2-11); Neutrophils Absolute Auto 6.7 x10*3/uL (2.0-8.3); Neutrophils Percent Auto 81.8 % (45-73); Platelet Count 415 X10*3/uL (160-400); Red Blood Count 3.83 X10*6/uL (4.60-5.80); White Blood Count 8.2 X10*3/uL (4.8-10.8)
[2023-04-02] MEDS: Thiamine HCL 200 MG in 0.9 % Sodium Chloride 100 ML 204 MG IV (09:19)
[2023-04-02 09:22] LABS: INTERNATIONAL NORM RATIO 4.3 (0.9-1.1)
[2023-04-02 09:38] LABS: Alanine Aminotransferase 26 U/L (0-40); Albumin Level 4.1 g/dL (3.5-5.0); Alkaline Phosphatase 92 U/L (39-117); Anion Gap 14 (12-20); Aspartate Amino Transferase 44 U/L (5-37); Bilirubin Total 0.6 mg/dL (0.0-1.0); Blood Urea Nitrogen 11 mg/dL (9-16); Calcium 9.7 mg/dL (8.4-10.2); Carbon Dioxide 22 mmol/L (22-29); Chloride 98 mmol/L (96-108); Creatinine Clr Calc Pharmacy 82.1; Estimated Glomerular Filt Rate > 60; Ethanol < 10 mg/dL; Glucose Random 114 mg/dL (60-115); Magnesium 1.6 mg/dL (1.6-2.6); Potassium 4.2 mmol/L (3.3-5.1); Sodium 130 mmol/L (135-145); Total Protein 8.2 g/dL (6.5-8.0)
--- NOTE | 2023-04-02 09:38 | PC.NURSE ---
Folic acid and Thiamine both infused without complications; I could not discontinue in the computer
[2023-04-02 09:41] LABS: Troponin-I High Sensitivity 6.9 ng/L (<3.5-35.0)
[2023-04-02 10:45] LABS: Appearance Urine Clear; Color Urine Yellow; Glucose Urine UA Negative (Negative); Leukocyte Esterase Urine Negative (Negative); Nitrite Urine Negative (Negative); Urine Blood Negative (Negative); Urine Ketones Trace mg/dL (Negative); Urine Protein Trace mg/dL (Neg-Trace)
[2023-04-02] MEDS: Acetaminophen 325 MG TABLET 650 MG PO (11:07)
--- NOTE | 2023-04-02 11:12 | PC.NURSE ---
there has been no seizure activity noted, pads are in place.
[2023-04-02] MEDS: PHENobarbitaL sodium 130 MG/ML IM ONCE 306 MG IM (11:39)
--- NOTE | 2023-04-02 11:39 | PHA.MEDREC ---
Pharmacy Consult ? Medication Reconciliation Pharmacy has completed the medication reconciliation. Utilized sample dye mixer services. Patient states that they were told by an MD to hold warfarin for 1 week, and to resume on 04/07/23.
[2023-04-02] MEDS: LORazepam 2 MG/ML VIAL 1 MG IVPUSH (13:29)
--- NOTE | 2023-04-02 14:20 | P.HPHOSP_ITS ---
History of Present Illness Date of Service: 04/02/23 Chief Complaint: Chest pain 63-year-old gentleman presented to [facility] due to symptoms of retrosternal chest pain with no radiation, lower back pain,b/l buttock pain, shakiness and anxiety patient fell on Wednesday, patient unaware how he felt but he admitted to drinking 6 beers that day and has had history of prior falls due to alcohol intoxication patient was seen at [facility] on 04/01 and was noted to have right buttock ecchymosis and small laceration, he noted to have elevated INR he was recommended to hold Coumadin for 3 days but since he was not feeling well with above symptoms he came to ED his last drink was on Hazel he denies history of alcohol withdrawal seizure or delirium tremens complaining of generalized muscle ache he is noted to have an elevated INR of 4.3, flat troponin, CPK 465, sodium of 130 that is chronically low is stable hematocrit patient is started on phenobarb protocol and is being admitted to [facility] due to alcohol withdrawal symptoms, generalized pain due to fall and supratherapeutic INR. Review of Systems 2 Review of Systems: General no headache, no dizziness, no fever chills. CVS reproducible chest pain, no palpitation. Respiratory no cough, no sob Gastrointestinal no nausea ,no vomiting, no abdominal pain Musculoskeletal generalized pain mostly lower back no urgency, no frequency [facility] History Intracranial hemorrhage Coronary artery disease Chronic systolic CHF (congestive heart failure) Hypertension Short-segment Harrell's esophagus Pacemaker Skull fracture Alcoholic liver disease Cocaine abuse Alcohol abuse Surgical History S/P CABG (coronary artery bypass graft) H/O aortic valve replacement History of esophagogastroduodenoscopy (EGD) Aortic valve replaced Social History Household Members: None Housing: Apartment Alcohol intake: current Alcohol intake frequency: 0-2 drinks per day Alcohol type: beer Comment: patient refuses alarms , and fall prevention measures Patient Tobacco Use Status: Current everyday Tobacco user Tobacco use type: Cigarette Cigarette Packs Per Day: 10 Cigarettes Per Day: 200.0 Smoked in Last 30 Days: Yes Patient Interested in Nicotine Replacement: Yes Second Hand Smoke Exposure: No Use of substances other than those prescribed or required for medical reasons: No Substance Use Type: Marijuana Currently Displaying Signs/Symptoms of Drug Intoxication Withdrawal: No Have you been hit, kicked, punched, or otherwise hurt by someone within the past year? If so, by whom?: No Is there a partner from a previous relationship who is making you feel unsafe now?: No Advance Directives: Yes Advance Directives on File: Yes Advance Directives Date on File: 10/11/21 Nutrition Risks: No Nutritional Risk service: No Current occupational status: unemployed Meds Allergies Allergy/AdvReac Type Severity Reaction Status Date / Time lorazepam [From ATIVAN] AdvReac Severe OPPOSITE Verified 04/01/23 15:19 EFFECT PSYCOTIC EFECTS Active Medications: Current Medications Acetaminophen (Acetaminophen 325 Mg Tablet) 650 mg PO Q6H PRN PRN Reason: Pain, Mild (Pain Scale 1-3) Albuterol Sulfate (Albuterol Sulfate 90 Mcg 8 Gm Inhaler) 2 puff INHALE Q4H PRN PRN Reason: Respiratory Distress Atorvastatin Calcium (Atorvastatin Calcium 20 Mg Tablet) 20 mg PO DAILY [facility] Buspirone HCl (Buspirone Hcl 10 Mg Tablet) 10 mg PO TID CAMMY Fluticasone/Vilanterol (Fluticasone/Vilanterol 200/25 Blst.W.Dev) 1 puff INHALE RDAILY [facility] Folic Acid (Folic Acid 1 Mg Tablet) 1 mg PO DAILY [facility] Hydroxyzine HCl (Hydroxyzine Hcl 50 Mg Tablet) 50 mg PO BEDTIME PRN PRN Reason: insomnia Magnesium Hydroxide (Milk Of Magnesia 30 Ml Oral.Susp) 30 ml PO DAILY PRN PRN Reason: Constipation Magnesium Oxide (Magnesium Oxide 400 Mg Tablet) 800 mg PO BID [facility] Melatonin (Melatonin 3 Mg Tablet) 6 mg PO BEDTIME PRN PRN Reason: Insomnia Metoprolol Succinate (Metoprolol Succinate Er 50 Mg Tab.Er.24h) 50 mg PO DAILY CAMMY; Protocol Olanzapine (Olanzapine 5 Mg Tablet) 5 mg PO BEDTIME CAMMY Ondansetron HCl (Ondansetron Hcl 4 Mg/2 Ml Vial) 4 mg IVPUSH Q8H PRN PRN Reason: Nausea and Vomiting Oxycodone HCl (Oxycodone Hcl Immed Release 5 Mg Tablet) 5 mg PO Q6H PRN PRN Reason: Pain, Severe (Pain Scale 7-10) Pharmacy Consult (Consult Rx Etoh Phenob Im/Po) 1 each MISCELLANE ONCE PRN; Protocol PRN Reason: Consult order Phenobarbital (Phenobarbital 15 Mg Tablet) 45 mg PO BID [facility] Stop: 04/04/23 09:01 Phenobarbital (Phenobarbital 15 Mg Tablet) 15 mg PO BID [facility] Stop: 04/06/23 09:01 Phenobarbital (Phenobarbital 15 Mg Tablet) 15 mg PO DAILY [facility] Stop: 04/08/23 09:01 Phenobarbital Sodium (Phenobarbital Sodium 130 Mg/Ml Vial Im Q3hx2) 230 mg IM Q3H CAMMY Stop: 04/02/23 18:01 Sodium Chloride (0.9 % Sodium Chloride Flush 3 Ml Syringe) 3 ml IVFLUSH QSHIFT [facility] Thiamine HCl (Thiamine Hcl 100 Mg Tablet) 100 mg PO DAILY [facility] Home Medications Medication Instructions Recorded Confirmed Last Taken Type melatonin 5 mg tablet 2 tab PO BEDTIME PRN insomnia 10/18/20 04/02/23 Unknown History atorvastatin 20 mg tablet 20 mg PO DAILY 11/18/20 04/02/23 04/02/23 09:00 History blood pressure test kit-large #1 ea 11/18/20 02/09/23 Unknown History folic acid 1 mg tablet 1 mg PO DAILY 11/18/20 04/02/23 04/02/23 09:00 History lidocaine 5 % topical patch 1 patch topical DAILY 11/18/20 04/02/23 04/02/23 09:00 History magnesium oxide 400 mg (241.3 mg 800 mg PO BID 11/18/20 04/02/23 04/02/23 09:00 History magnesium) tablet metoprolol succinate 50 mg 50 mg PO DAILY 11/18/20 04/02/23 04/02/23 09:00 History tablet,extended release 24 hr pantoprazole 40 mg tablet,delayed 40 mg PO BID 11/18/20 04/02/23 04/02/23 09:00 History release thiamine HCl (vitamin B1) 100 mg 100 mg PO DAILY 11/18/20 04/02/23 04/02/23 09:00 History tablet zolpidem 10 mg tablet 10 mg PO BEDTIME PRN Insomnia 12/02/20 04/02/23 10/10/21 History olanzapine 5 mg tablet 1 tab PO BEDTIME 10/10/21 04/02/23 Unknown History acetaminophen 500 mg tablet 500 mg PO BID PRN Mild Pain (Scale 05/11/22 04/02/23 Unknown History Score 1-4) albuterol sulfate 90 mcg/actuation 2 puff inhalation Q4H PRN 05/11/22 04/02/23 Unknown History aerosol inhaler (Ventolin HFA) Respiratory Distress buspirone 10 mg tablet 10 mg PO TID 05/11/22 04/02/23 04/02/23 09:00 History warfarin 5 mg tablet 5 mg PO DAILY 05/11/22 04/02/23 04/02/23 09:00 History sacubitril 24 mg-valsartan 26 mg 1 tab PO BID 06/12/22 04/02/23 04/02/23 09:00 History tablet (Entresto) hydroxyzine pamoate 50 mg capsule 50 mg PO BEDTIME PRN insomnia 11/17/22 04/02/23 Unknown History budesonide-formoterol HFA 160 2 puff inhalation BID 02/09/23 04/02/23 04/02/23 09:00 History mcg-4.5 mcg/actuation aerosol inhaler (Symbicort) Physical Exam 2 Vital Signs and Narrative: Vital Signs: Last Vital Signs Pulse 107 H 04/02/23 11:46 Resp 16 04/02/23 11:46 BP 95/50 L 04/02/23 11:46 Pulse Ox 94 04/02/23 11:46 O2 Del Method Room Air 04/02/23 11:46 BMI result Body Mass Index 28.0 Const: Other: General awake alert x3, resting in bed in mild distress due to pain HEENT: PERRLA anicteric sclera Neck supple, no JVD. CVS regular rate rhythm, Respiratory lungs clear to auscultation, no respiratory distress, no wheeze, no rhonchi. Gastrointestinal abdomen soft, non tender, bowel sounds audible, no guarding , no rigidity. Extremities no edema. Neuro nonfocal, moving all 4 extremity speech clear, no tremors. Skin ecchymosis left buttock/flank Psych appropriate affect Results Labs 04/03/23 06:21 04/03/23 06:21 Labs: Laboratory Results - last 24 hr 04/02/23 04/02/23 09:06 10:28 MCV 84.1 MCH 28.5 MCHC 33.9 RDW 17.0 H Plt Count 415 H MPV 9.3 L Immature Gran % (Auto) 0.5 H Neut % (Auto) 81.8 H Lymph % (Auto) 8.6 L [place] % (Auto) 8.5 Eos % (Auto) 0.1 Baso % (Auto) 0.5 Lymph # (Auto) 0.7 L [place] # (Auto) 0.7 Eos # (Auto) 0.0 Baso # (Auto) 0.0 Abs Immat Gran (auto) 0.04 H Absolute Neuts (auto) 6.7 Absolute Nucleated RBC 0.000 Nucleated RBC % (auto) 0.0 PT 52.0 H INR 4.3 H Anion Gap 14 Estim Creat Clear Calc 82.1 Estimated GFR > 60 Random Glucose 114 Calcium 9.7 Magnesium 1.6 Total Bilirubin 0.6 AST 44 H ALT 26 Alkaline Phosphatase 92 Total Creatine Kinase 465 H Total Protein 8.2 H Albumin 4.1 Urine Color Yellow Urine Appearance Clear Urine pH 6.0 Ur Specific [place] 1.010 Urine Protein Trace Urine Glucose (UA) Negative Urine Ketones Trace Urine Blood Negative Urine Nitrite Negative Ur Leukocyte Esterase Negative Ethyl Alcohol < 10 Blood Type O Positive Antibody Screen NEGATIVE Imaging Radiologist's Impressions: Impressions Abdomen/Pelvis CT 04/02/23 08:18 IMPRESSION: No acute intrathoracic, intra-abdominal or pelvic pathology status. Left buttock soft tissue stranding, likely posttraumatic. Improved, but residual bilateral pulmonary opacities. Interval enlargement right middle lobe pulmonary nodule, now 5 mm. Slight enlargement left paratracheal lymph node. 3 month follow-up LDCT recommended. No change small hiatal hernia and punctate nonobstructing left upper pole renal calculus. Chest CT 04/02/23 08:18 IMPRESSION: No acute intrathoracic, intra-abdominal or pelvic pathology status. Left buttock soft tissue stranding, likely posttraumatic. Improved, but residual bilateral pulmonary opacities. Interval enlargement right middle lobe pulmonary nodule, now 5 mm. Slight enlargement left paratracheal lymph node. 3 month follow-up LDCT recommended. No change small hiatal hernia and punctate nonobstructing left upper pole renal calculus. Assessment and Plan (1) Alcohol withdrawal: Status: Acute (2) Supratherapeutic INR: Status: Acute Plan 63-year-old male with pertinent history of aortic valve replacement on Coumadin, alcohol use disorder with alcoholic liver disease, history of cocaine use disorder, congestive heart failure with reduced ejection history of intracranial hemorrhage, CAD status post CABG, mood disorder who presents to the emergency department #. Alcohol use disorder with concerns for withdrawal: Continue Phenobarb protocol initiated in the ER, thiamine and folic acid. Addiction Team consult. Monitor magnesium level and electrolytes #. Supratherapeutic INR: Hold Coumadin follow PT INR #. Mechanical fall in the setting of alcohol intoxication with mildly elevated CPK and multiple ecchymosis strongly recommend to abstain from alcohol, pain medication. #. Chronic hyponatremia. Due to beer potomania,restrict po fluids #. Essential hypertension/congestive heart failure with reduced ejection fraction: No acute decompensation continue beta-blockers, hold Entresto and amlodipine for soft blood pressures #. CAD status post CABG: Holding Plavix , continue statins and beta-blockers #. Mood disorder: Continue home mood stabilizers # tobacco use disorder place on nicotine patch counseling done DVT prophylaxis: Mechanical/will hold coumdin elevated inr Admit as inpatient and will require two night minimum hospital stay for close monitoring of INR and alcohol withdrawal Quality Stroke Does the patient have a stroke diagnosis?: No VTE Prior VTE?: No VTE Risk Level:: Medical - moderate - high VTE Device Contraindication: Treatment Not Indicated VTE Drug Contraindication: N/A - Med Ordered
[2023-04-02] MEDS: busPIRone HCl 10 MG TABLET PO (15:44)
[2023-04-02] MEDS: PHENobarbitaL sodium 130 MG/ML VIAL IM Q3Hx2 230 MG IM ×2 (15:45→17:58)
[2023-04-02] MEDS: 0.9 % Sodium Chloride Flush 3 ML SYRINGE IVFLUSH (15:53)
[2023-04-02] MEDS: Nicotine 21 MG PATCH.TD24 TRANSDERMA (17:58)
[2023-04-02] MEDS: oxyCODONE HCl Immed Release 5 MG TABLET PO (18:04)
[2023-04-03 03:18] VITALS: BP 113/64; PULSE 93; RESP 19; TEMP 36.9
[2023-04-03] MEDS: oxyCODONE HCl Immed Release 5 MG TABLET PO ×2 (04:03→09:55)
[2023-04-03] MEDS: hydrOXYzine HCL 50 MG TABLET PO (04:16)
[2023-04-03 06:36] LABS: Hematocrit 29.8 % (42.0-52.0); Mean Corpuscular HGB Conc 33.6 g/dl (31.0-36.0); Mean Corpuscular Hemoglobin 28.7 pg (27.0-33.0); Mean Corpuscular Volume 85.6 fL (80.0-98.0); Mean Platelet Volume 9.4 fL (9.4-12.4); Platelet Count 355 X10*3/uL (160-400); Red Blood Count 3.48 X10*6/uL (4.60-5.80); Red Cell Distribution Width 17.2 % (11.0-16.0); White Blood Count 9.3 X10*3/uL (4.8-10.8)
[2023-04-03 06:42] LABS: INTERNATIONAL NORM RATIO 2.6 (0.9-1.1); Prothrombin Time 31.6 SEC (11.1-13.3)
[2023-04-03 06:51] LABS: Anion Gap 12 (12-20); Blood Urea Nitrogen 16 mg/dL (9-16); Carbon Dioxide 23 mmol/L (22-29); Chloride 100 mmol/L (96-108); Creatinine Clr Calc Pharmacy 71.9; Estimated Glomerular Filt Rate > 60; Glucose Random 116 mg/dL (60-115); Magnesium 1.8 mg/dL (1.6-2.6); Potassium 4.3 mmol/L (3.3-5.1); Sodium 131 mmol/L (135-145)
[2023-04-03 07:35] VITALS: BP 124/69; PULSE 89; RESP 20; TEMP 36.6; O2SAT 94
[2023-04-03] MEDS: Magnesium Oxide 400 MG TABLET 800 MG PO (08:09)
[2023-04-03] MEDS: Nicotine 21 MG PATCH.TD24 TRANSDERMA (08:09)
[2023-04-03] MEDS: PHENobarbitaL 15 MG TABLET 45 MG PO (08:10)
[2023-04-03] MEDS: Folic Acid 1 MG TABLET PO (08:10)
[2023-04-03] MEDS: busPIRone HCl 10 MG TABLET PO (08:10)
[2023-04-03] MEDS: Thiamine HCL 100 MG TABLET PO (08:10)
[2023-04-03] MEDS: Atorvastatin Calcium 20 MG TABLET PO (08:10)
[2023-04-03] MEDS: Metoprolol Succinate ER 50 MG TAB.ER.24H PO (08:10)
[2023-04-03] MEDS: 0.9 % Sodium Chloride Flush 3 ML SYRINGE IVFLUSH (09:55)
--- NOTE | 2023-04-03 10:08 | PC.NURSE ---
This nurse and dr Hoang discussed with patient the importance of obtaining from using alcohol post discharge. Patient was informed, once again, that he is at high risk of bleeding, if he should fall, due to his necessary use of Coumadin. The patient stated that he would not drink and was aware of the risks. Patients family will be educated on risks associated with continued alcohol use when they tile picker patient upon discharge.
--- NOTE | 2023-04-03 10:17 | MHC.CM.PN ---
CM met with Patient at bedside with the assist of a Word Processing Operator. Patient lives alone in an apartment and he uses a cane to assist with mobility. Patient is active with [facility](he is unsure of the agency) and he has a [facility] 5 hours/week. Home/resume said services is the goal and CM has initiated and will follow for dc planning. Patient's Sister/Elizabeth is the HCP and the PCP is Dr. Nathalie Hsu.
[2023-04-03 11:03] VITALS: BP 123/62; PULSE 84; RESP 20; TEMP 36.1; O2SAT 95
--- NOTE | 2023-04-03 13:03 | P.DS_ITS ---
DS: Providers Provider Date of Service: 04/03/23 Date of admission: 04/02/23 13:47 Primary care physician: Nathalie Hsu MD Consults: 04/02/23 16:45 Addiction Medicine Routine Consulting Provider: Addiction Covering Reason for consultation: etoh Has provider been notified: No DS: Diagnosis Discharge Diagnosis (1) Alcohol withdrawal: Status: Acute (2) Supratherapeutic INR: Status: Acute DS: Summary Hospital Course Hospital Course: History of presenting illness: Date of Service: 04/02/23 Chief Complaint: Chest pain 63-year-old gentleman presented to [facility] due to symptoms of retrosternal chest pain with no radiation, lower back pain,b/l buttock pain, shakiness and anxiety patient fell on Wednesday, patient unaware how he fel t but he admitted to drinking 6 beers that day and has had history of prior falls due to alcohol intoxication patient was seen at [facility] on 04/01 and was noted to have right buttock ecchymosis and small laceration, he noted to have elevated INR he was recommended to hold Coumadin for 3 days but since he was not feeling well with above symptoms he came to ED his last drink was on Hazel he denies history of alcohol withdrawal seizure or delirium tremens complaining of generalized muscle ache he is noted to have an elevated INR of 4.3, flat troponin, CPK 465, sodium of 130 that is chronically low is stable hematocrit patient is started on phenobarb protocol and is being admitted to [facility] due to alcohol withdrawal symptoms, generalized pain due to fall and supratherapeutic INR. Hospital course: 63-year-old male with pertinent history of aortic valve replacement on Coumadin, alcohol use disorder with alcoholic liver disease, history of cocaine use disorder, congestive heart failure with reduced ejection history of intracranial hemorrhage, CAD status post CABG, mood disorder who presents to the emergency department #. Admitted to medical floor with a diagnosis Alcohol use disorder with concerns for withdrawal, treated with phenobarb protocol, thiamine and folic acid, patient had no withdrawal symptoms ,no tremors have steady gait he is eager to be discharged home, strongly recommended abstinence from alcohol. #. Supratherapeutic INR: Coumadin was held INR dropped to 2.6 will resume Coumadin with strong recommendation not to drink alcohol due to high risk for fall and head bleed patient understands the consequences, he is awake alert and is motivated to stop drinking. #. Mechanical fall in the setting of alcohol intoxication with mildly elevated CPK and multiple ecchymosis strongly recommend to abstain from alcohol,stable hematocrit Steady gait will discharge home. #. Chronic hyponatremia. Due to beer potomania, sodium improved and stable #. Essential hypertension/congestive heart failure with reduced ejection fraction: No acute decompensation continue beta-blockers, and Entresto will DC Norvasc. #. CAD status post CABG: continue statins and beta-blockers, as per patient he is not on Plavix #. Mood disorder: Continue home mood stabilizers. # tobacco use disorder placed on nicotine patch counseling done. Time Attestation Discharge coordination time: Greater than 30 minutes Quality: Safe Use of Opioids Does Pt have an Active Cancer Diagnosis on the Problem List?: No Quality: Stroke Does the patient have a stroke diagnosis?: No Physical Exam Vital Signs: Vital Signs: Last Vital Signs Temp 97.0 F 04/03/23 11:03 Pulse 84 04/03/23 11:03 Resp 20 04/03/23 11:03 BP 123/62 04/03/23 11:03 Pulse Ox 95 04/03/23 11:03 O2 Del Method Room Air 04/03/23 11:03 BMI result Body Mass Index 28.0 Const: Other: General awake alert x3, in no acute distress. Neck supple, no JVD. CVS regular rate rhythm, Respiratory lungs clear to auscultation, no respiratory distress, no wheeze, no rhonchi. Gastrointestinal abdomen soft, non tender, bowel sounds audible, no guarding , no rigidity. Extremities no edema. Neuro nonfocal, moving all 4 extremity speech clear, no tremors, Steady gait. Skin ecchymosis left buttock/flank Psych appropriate affect DS: Data Data Completed and Pending Completed studies during hospitalization [Text1]: Procedures Detoxification Services for Substance Abuse Treatment (02/09/23) Labs on day of discharge: Laboratory Results - last 24 hr 04/03/23 06:21 WBC 9.3 RBC 3.48 L Hgb 10.0 L Hct 29.8 L MCV 85.6 MCH 28.7 MCHC 33.6 RDW 17.2 H Plt Count 355 MPV 9.4 Absolute Nucleated RBC 0.000 Nucleated RBC % (auto) 0.0 PT 31.6 H D INR 2.6 H Sodium 131 L Potassium 4.3 Chloride 100 Carbon Dioxide 23 Anion Gap 12 BUN 16 Creatinine 1.05 Estim Creat Clear Calc 71.9 Estimated GFR > 60 Random Glucose 116 H Calcium 9.0 D Magnesium 1.8 Discharge Plan Discharge Anticipated Discharge Date/Time: 04/03/23 12:18 Patient Disposition: Home Health Service Discharge Diagnosis: Alcohol use disorder with concern for withdrawal Mechanical fall with left buttock hematoma Generalized pain Supratherapeutic INR Referrals: Resume Current [facility] EMERGENCY DEPARTMENT MANAGER [Other] - 1 Week Nathalie Hsu MD [Primary Care Provider] - 1 Week Discharge Medications: New nicotine 21 mg/24 hr Patch 24 Hour 21 mg transdermal DAILY Qty: 28 0RF Continued melatonin 5 mg tablet 2 tab PO BEDTIME PRN (Reason: insomnia) olanzapine 5 mg tablet 1 tab PO BEDTIME warfarin 5 mg Tablet 5 mg PO DAILY Rx Instructions: PER PT ON HOLD; START AGAIN 04/07/23 acetaminophen 500 mg Tablet 500 mg PO BID PRN (Reason: Mild Pain (Scale Score 1-4)) buspirone 10 mg Tablet 10 mg PO TID albuterol sulfate [Ventolin HFA] 90 mcg/actuation Hfa Aerosol Inhaler 2 puff INHALATION Q4H PRN (Reason: Respiratory Distress) hydroxyzine pamoate 50 mg capsule 50 mg PO BEDTIME PRN (Reason: insomnia) budesonide-formoterol [Symbicort] 160-4.5 mcg/actuation HFA aerosol inhaler 2 puff inhalation BID zolpidem 10 mg tablet 10 mg PO BEDTIME PRN (Reason: Insomnia) pantoprazole 40 mg tablet,delayed release (DR/EC) 40 mg PO BID magnesium oxide 400 mg (241.3 mg magnesium) tablet 800 mg PO BID thiamine HCl (vitamin B1) 100 mg tablet 100 mg PO DAILY metoprolol succinate 50 mg tablet extended release 24 hr 50 mg PO DAILY atorvastatin 20 mg tablet 20 mg PO DAILY (DME) blood pressure test kit-large Kit See Rx Instructions .ROUTE DIRECTED Qty: 1 Rx Instructions: As directed folic acid 1 mg tablet 1 mg PO DAILY lidocaine 5 % adhesive patch,medicated 1 patch topical DAILY Protocol: Apply to: Apply to: AFFECTED AREA Entresto 24-26 mg tablet 1 tab PO BID Discontinued clopidogrel 75 mg tablet 75 mg PO DAILY amlodipine 2.5 mg tablet 2.5 mg PO DAILY Discharge Orders: Discharge Order (Routine); Ordered 04/03/23 Ordered By: Jama Hoang Diet: Low fat, low cholesterol Activity on Discharge: As tolerated Stand Alone Forms: Patient Portal Discharge page Care Plan Goals: Strongly recommend to abstain from alcohol Stop Plavix Stop Norvasc Take Coumadin 5 mg daily and check INR closely Health Concerns: Take all other medications as prescribed Plan of Treatment: Outpatient follow-up with primary care physician and hospital superintendent Assessment: As above
--- NOTE | 2023-04-03 13:08 | MHC.CM.PN ---
Patient has been medically cleared for dc to home today to resume his current [facility].
--- NOTE | 2023-04-03 16:07 | MHC.RECOVRN ---
Received Addiction Medicine consult for alcohol use. Chart reviewed. Pt d/c prior to being seen.
== END 2023-04-03 13:08 | disposition home health service (06) | DRG 775 ==
LOC: HO.ED 10:56 → HO.EDOVER 13:53 → HO.IMC 19:25
PROVIDERS: Physician Assistant; Admitting Provider Hospitalist; Emergency Provider Emergency Medicine; PCP Family Medicine; Visit Provider Hospitalist
DX: F10.939 Alcohol use, unspecified with withdrawal, unspecified (principal); I11.0 Hypertensive heart disease with heart failure; I50.22 Chronic systolic (congestive) heart failure; F39 Unspecified mood [affective] disorder; I25.10 Atherosclerotic heart disease of native coronary artery without angina pectoris; E87.1 Hypo-osmolality and hyponatremia; F17.210 Nicotine dependence, cigarettes, uncomplicated; R79.1 Abnormal coagulation profile; Z95.0 Presence of cardiac pacemaker; Z95.2 Presence of prosthetic heart valve; Z91.81 History of falling; Z71.6 Tobacco abuse counseling; Z95.1 Presence of aortocoronary bypass graft; Z79.01 Long term (current) use of anticoagulants; Z79.899 Other long term (current) drug therapy
CPT/HCPCS: 36415; 71250; 74176; 80048; 80053; 80307; 81003; 82550; 83735; 84484; 85025; 85027; 85610; 86850; 86900; 86901; 93005; 99285; J2060; J2270; J2560; J3411; J3475

== ENCOUNTER → 2023-04-02 07:36 | Outpatient (BNV) | payer MEDICAID, SELFPAY | PROVIDERS: Admitting Provider Hospitalist; Emergency Provider Emergency Medicine; PCP Family Medicine; Visit Provider Internal Medicine | DX: I48.91 Unspecified atrial fibrillation (principal) | CPT/HCPCS: 93010 ==

== ENCOUNTER → 2023-04-02 13:47 | Outpatient (BNV) | payer MEDICAID, SELFPAY | PROVIDERS: Admitting Provider Hospitalist; Emergency Provider Emergency Medicine; PCP Family Medicine; Visit Provider Hospitalist | DX: F10.939 Alcohol use, unspecified with withdrawal, unspecified (principal); R79.1 Abnormal coagulation profile | CPT/HCPCS: 99223; 99239 ==

== ENCOUNTER 2023-04-30 08:01 | Emergency (ER) | payer MEDICAID, SELFPAY ==
--- NOTE | ~2023-04-30 | XR_ITS ---
EXAMINATION: XR CHEST CLINICAL INFORMATION: Chest pain COMPARISON: Previous chest x-ray most recent March 2023 TECHNIQUE: Frontal view of the chest was obtained. FINDINGS: The cardiac and mediastinal contours are stable. Heart valve ring, coronary artery stent and median sternotomy wires. Right subclavian dual-chamber pacemaker appears unchanged. The lungs are clear. No pleural effusion or pneumothorax. New surgical clips project over the left lower chest. Bony structures are unremarkable. XR/XR chest 1V IMPRESSION: No evidence for acute disease in the chest.
--- NOTE | ~2023-04-30 | CT_ITS ---
EXAMINATION: CT ABDOMEN AND PELVIS WITH CONTRAST CLINICAL INFORMATION: Abdominal pain, nausea and vomiting and belching COMPARISON: Previous CT scans most recent March 2023 TECHNIQUE: Multidetector volumetric images were obtained from the superior aspect of the liver through the pubic symphysis following administration 85 mL of Omnipaque 350 intravenous contrast. Sagittal and coronal reformatted images were obtained on the technologist's workstation. Oral contrast: Yes This CT examination was performed using dose optimization techniques as appropriate, variously including the following: *Automated exposure control *Adjustment of mA and/or kV according to patient size (this includes techniques or standardized protocols for targeted exams where dose is matched to indication/reason for exam; i.e. extremities or head) *Use of iterative reconstruction technique DLP: 353 mGy-cm FINDINGS: Exam is significantly limited due to motion. LUNG BASES: Lung bases are clear. Pacemaker lead. LIVER, GALLBLADDER, AND BILIARY TREE: The liver is normal in size, shape, and attenuation. No focal hepatic lesion or biliary ductal dilatation is present. The gallbladder is unremarkable with no evidence of radiopaque gallstones, gallbladder wall thickening, or obvious pericholecystic inflammatory changes. PANCREAS: Unremarkable. SPLEEN: Stable small calcification in the spleen. Spleen is otherwise unremarkable. ADRENAL GLANDS: Unremarkable. KIDNEYS AND URETERS: Stable small calcification in the upper pole of the left kidney. It is uncertain whether this represents a stone or vascular calcification. The kidneys are otherwise unremarkable. BLADDER: Unremarkable. GASTROINTESTINAL TRACT: The small and large bowel are unremarkable. The appendix is is not seen. No inflammatory changes in the right lower quadrant. ABDOMINAL WALL: No significant hernia is appreciated. LYMPH NODES: Normal. VASCULAR: Severe atherosclerotic disease. No hernia. PELVIC VISCERA: Unremarkable. OSSEOUS STRUCTURES: Mild compression fractures of the T12 and L2 vertebral bodies, stable. Multilevel degenerative changes of the spine CT/CT abdomen pelvis w IV con IMPRESSION: Limited exam due to motion. No acute findings. Fleischner guidelines were followed.
--- NOTE | 2023-04-30 08:04 | ECG_ITS ---
Test Reason : chest pain Blood Pressure : / mmHG Vent. Rate : 074 BPM Atrial Rate : 074 BPM P-R Int : 152 ms QRS Dur : 184 ms QT Int : 450 ms P-R-T Axes : 038 076 -74 degrees QTc Int : 499 ms Atrial-sensed ventricular-paced rhythm Abnormal ECG When compared with ECG of 02-APR-2023 08:02, Premature ventricular complexes are no longer Present Vent. rate has decreased BY 31 BPM Referred By: Generic ED Physician Electronically Signed By:Roosevelt Woodruff
[2023-04-30 08:11] VITALS: BP 125/50; PULSE 71; RESP 18; TEMP 36.4; O2SAT 97; BMI 27.7
--- NOTE | 2023-04-30 08:30 | ED.CHESTPAIN ---
HPI - Chest Pain General Chief Complaint: Chest Pain Stated Complaint: Chest Pain Time Seen by Provider: 04/30/23 08:22 Source: patient, old records reviewed and seismic interpreter ([place]) Mode of arrival: ambulatory Limitations: no limitations History of Present Illness HPI narrative: 63 yo male with PMH of cirrhosis, GIB, heart block s/p PPM, GERD, ETOH abuse hx of falls and withdrawal recent admit in March, hyponatremia, HTN, CHF here with c/o eating a sandwich from a corner store yesterday that tasted bad then he developed upper abdominal pain n/v/d and doesn't feel well. His last drink was wednesday. He denies any falls. He notes no antibiotics or known sick contacts MD complaint: other (n/v/d weakness, anxiety, abdominal cramps) Onset (ago): day(s) (yesterday) Timing of current episode: episodic Prior episodes: Yes Onset: during rest Pain location: epigastric Pain radiation: none Severity: mild Quality: other (cramping) Relieving factors: nothing Exacerbating factors: eating Context: other (started after eating bad tasting sandwhich) Associated symptoms: nausea, vomiting and other (diarrhea) Treatment prior to arrival: none Related Data Home Medications Medication Instructions Recorded Confirmed melatonin 5 mg tablet 2 tab PO BEDTIME PRN insomnia 10/18/20 04/02/23 atorvastatin 20 mg tablet 20 mg PO DAILY 11/18/20 04/02/23 blood pressure test kit-large #1 ea 11/18/20 02/09/23 folic acid 1 mg tablet 1 mg PO DAILY 11/18/20 04/02/23 lidocaine 5 % topical patch 1 patch topical DAILY 11/18/20 04/02/23 magnesium oxide 400 mg (241.3 mg 800 mg PO BID 11/18/20 04/02/23 magnesium) tablet metoprolol succinate 50 mg 50 mg PO DAILY 11/18/20 04/02/23 tablet,extended release 24 hr pantoprazole 40 mg tablet,delayed 40 mg PO BID 11/18/20 04/02/23 release thiamine HCl (vitamin B1) 100 mg 100 mg PO DAILY 11/18/20 04/02/23 tablet zolpidem 10 mg tablet 10 mg PO BEDTIME PRN Insomnia 12/02/20 04/02/23 olanzapine 5 mg tablet 1 tab PO BEDTIME 10/10/21 04/02/23 acetaminophen 500 mg tablet 500 mg PO BID PRN Mild Pain (Scale 05/11/22 04/02/23 Score 1-4) albuterol sulfate 90 mcg/actuation 2 puff inhalation Q4H PRN 05/11/22 04/02/23 aerosol inhaler (Ventolin HFA) Respiratory Distress buspirone 10 mg tablet 10 mg PO TID 05/11/22 04/02/23 warfarin 5 mg tablet 5 mg PO DAILY 05/11/22 04/02/23 sacubitril 24 mg-valsartan 26 mg 1 tab PO BID 06/12/22 04/02/23 tablet (Entresto) hydroxyzine pamoate 50 mg capsule 50 mg PO BEDTIME PRN insomnia 11/17/22 04/02/23 budesonide-formoterol HFA 160 2 puff inhalation BID 02/09/23 04/02/23 mcg-4.5 mcg/actuation aerosol inhaler (Symbicort) Previous Rx's Medication Instructions Recorded nicotine 21 mg/24 hr daily 21 mg transdermal DAILY #28 ea 04/03/23 transdermal patch ondansetron 4 mg disintegrating 4 mg PO Q8H PRN nausea and 04/30/23 tablet vomiting #20 tabs Allergies Allergy/AdvReac Type Severity Reaction Status Date / Time lorazepam [From ATIVAN] AdvReac Severe OPPOSITE Verified 04/01/23 15:19 EFFECT PSYCOTIC EFECTS Review of Systems Review of Systems: Constitutional : No Weight loss, No Fever, No Chills ENT/Mouth : No sore throat, No Rhinorrhea Eyes: No Swelling, No Redness Cardiovascular : No Chest Pain, No SOB, NoEdema Respiratory : No Cough, No Sputum, No Wheezing Gastrointestinal : Positive Nausea, Positive Vomiting, positive Diarrhea, positive abdominal Pain, No Hematochezia, No Melena Genitourinary : No Dysuria, No Urinary Frequency, No Hematuria, No Urgency Musculoskeletal : No joint pain, No Myalgias, No Joint Swelling Skin : No Skin Lesions, No rash Neuro : No Weakness, No Numbness, No Dizziness, No Headache Psych : No Anxiety/Panic, No Depression Heme/Lymph: No Bruising, No Lymphadenopathy Endocrine : No Polyuria, No Polydipsia All other systems reviewed and are negative. [facility] Past Medical History Attestation statement: The following information was validated with the patient. Source: old records reviewed Medical History Intracranial hemorrhage Coronary artery disease Chronic systolic CHF (congestive heart failure) Hypertension Short-segment Harrell's esophagus Pacemaker Skull fracture Alcoholic liver disease Cocaine abuse Alcohol abuse Surgical History S/P CABG (coronary artery bypass graft) H/O aortic valve replacement History of esophagogastroduodenoscopy (EGD) Aortic valve replaced Social History Social History Household Members: None Housing: Apartment Alcohol intake: current Alcohol intake frequency: a few times a week Alcohol type: beer Comment: patient refuses alarms , and fall prevention measures Patient Tobacco Use Status: Current everyday Tobacco user Tobacco use type: Cigarette Cigarette Packs Per Day: 10 Cigarettes Per Day: 200.0 Smoked in Last 30 Days: Yes Second Hand Smoke Exposure: No Use of substances other than those prescribed or required for medical reasons: No Substance Use Type: Marijuana Advance Directives: Yes Advance Directives on File: Yes Advance Directives Date on File: 10/11/21 service: No Current occupational status: unemployed Physical Exam Vital Signs: Vital Signs: Last Vital Signs Temp 97.4 F 04/30/23 12:15 Pulse 87 04/30/23 12:15 Resp 18 04/30/23 12:15 BP 138/51 L 04/30/23 12:15 Pulse Ox 95 04/30/23 12:15 O2 Del Method Room Air 04/30/23 12:15 BMI result Body Mass Index 27.7 Appearance: Alert. Oriented X3. No acute distress. Eyes: Pupils equal, round and reactive to light. ENT: Pharynx normal. Atraumatic Neck: Normal inspection. Neck supple. CVS: Normal heart rate and rhythm. Pulses normal. Respiratory: No respiratory distress. Breath sounds normal. Abdomen: Soft and mild epigastric ttp has lidocaine patches in place Skin: Skin warm and dry. Normal skin color. Normal skin turgor. Extremities: No lower extremity edema. No calf ttp Neuro: Oriented X 3. No motor deficit. No sensory deficit. Course Course Course Narrative: no signs of alcohol withdrawal asked for anxiety med on arrival gave low dose phenobarb has ativan allergy Reevaluation(s) Reevaluation #1: on discharge c/o epigastric pain again will give IV morphine and obtain CT scan for pathology but suspect gastritis Reevaluation #2: no acute findings on CT scan Medications Administered Discontinued Medications Generic Name Dose Route Start Last Admin Trade Name Jessenia PRN Reason Stop Dose Admin Al Hydroxide/Mg Hydroxide 15 ml 04/30/23 10:27 04/30/23 10:32 Magnesium Hydrox/Alum Hydrox 30 Ml Oral.Susp PO 04/30/23 10:28 15 ml ONCE ONE Administration Magnesium Sulfate 2 gm in 50 mls @ 25 mls/hr 04/30/23 08:36 04/30/23 11:33 Magnesium Sulfate/H2o IV 04/30/23 10:35 Infused ONCE ONE Infusion Sodium Chloride 500 mls @ 500 mls/hr 04/30/23 08:45 04/30/23 09:53 Ns IV 04/30/23 09:44 Infused .Q1H CAMMY Infusion Thiamine HCl 200 mg/ Sodium 102 mls @ 204 mls/hr 04/30/23 08:37 04/30/23 09:23 Chloride IV 04/30/23 09:06 Infused ONCE ONE Infusion Iohexol 85 ml 04/30/23 12:15 04/30/23 12:16 Iohexol 350 Mg/Ml 75 Ml Infus..Btl IV 04/30/23 12:16 85 ml ONCE ONE Administration Lidocaine HCl 15 ml 04/30/23 10:27 04/30/23 10:33 Lidocaine Hcl Viscous 2 % 15 Ml Solution MUCOUS MEM 04/30/23 10:28 15 ml ONCE ONE Administration Morphine Sulfate 4 mg 04/30/23 11:38 04/30/23 12:15 Morphine Sulfate 4 Mg/Ml Cartridge IVPUSH 04/30/23 11:39 4 mg ONCE ONE Administration Protocol Ondansetron HCl 4 mg 04/30/23 08:36 04/30/23 08:53 Ondansetron Hcl 4 Mg/2 Ml Vial IVPUSH 04/30/23 08:37 4 mg ONCE ONE Administration Phenobarbital 30 mg 04/30/23 08:37 04/30/23 08:53 Phenobarbital 30 Mg Tablet PO 04/30/23 08:38 30 mg ONCE ONE Administration Medical Decision Making Medical Decision Making MDM Narrative: 63 yo male with PMH of cirrhosis, GIB, heart block s/p PPM, GERD, ETOH abuse hx of falls and withdrawal recent admit in March, hyponatremia, HTN, CHF here with n/v/d and abdominal cramps after eating a bad tasting sandwhich at a store. He denies GIB symptoms. At this time he will need basic labs, IVF, PO ativan for anxiety, empiric magnesium and thiamine. He has no localized ttp - possible viral syndrome, food toxicity, lyte abnormality, alcohol withdrawal. Differential Diagnosis Differential Diagnoses: The differential diagnosis associated with the presentation includes viral syndrome, food toxicity, lyte derangement, alcohol withdrawal Admission/Observation Consideration of admission/observation: Escalation of care including admission/observation considered repleted magnesium EKG nonischemic CXR negative trop flat x 2 CT scan negative Lab Data MDM Lab Attestation statement: I reviewed the patient's lab results. 04/30/23 08:42 04/30/23 09:35 Labs: Lab Results 04/30/23 04/30/23 04/30/23 Range/Units 08:42 09:35 10:41 WBC 7.1 (4.8-10.8) X10*3/uL RBC 3.52 L (4.60-5.80) X10*6/uL Hgb 10.1 L (14.0-18.0) g/dl Hct 30.1 L (42.0-52.0) % MCV 85.5 (80.0-98.0) fL MCH 28.7 (27.0-33.0) pg MCHC 33.6 (31.0-36.0) g/dl RDW 16.2 H (11.0-16.0) % Plt Count 319 (160-400) X10*3/uL MPV 8.8 L (9.4-12.4) fL Immature Gran % (Auto) 0.3 (0.0-0.4) % Neut % (Auto) 68.0 (45-73) % Lymph % (Auto) 20.5 (20-40) % [place] % (Auto) 8.6 (2-11) % Eos % (Auto) 1.8 (0-4) % Baso % (Auto) 0.8 (0-2) % Lymph # (Auto) 1.5 (1.2-4.9) X10*3/uL [place] # (Auto) 0.6 (0.1-1.2) X10*3/uL Eos # (Auto) 0.1 (0.0-0.4) X10*3/uL Baso # (Auto) 0.1 (0.0-0.2) X10*3/uL Abs Immat Gran (auto) 0.02 (0.00-0.03) X10*3/uL Absolute Neuts (auto) 4.9 (2.0-8.3) x10*3/uL Absolute Nucleated RBC 0.000 (0.0-0.012) X10*3/uL Nucleated RBC % (auto) 0.0 (0.0-0.2) /100WBC PT 18.3 H D (11.1-13.3) SEC INR 1.5 H (0.9-1.1) Sodium 131 L (135-145) mmol/L Potassium 5.7 H 4.6 (3.3-5.1) mmol/L Chloride 102 (96-108) mmol/L Carbon Dioxide 20 L (22-29) mmol/L Anion Gap 15 (12-20) BUN 9 (9-16) mg/dL Creatinine 1.01 (0.5-1.4) mg/dL Estim Creat Clear Calc 79.4 Estimated GFR > 60 Random Glucose 82 (60-115) mg/dL Calcium 8.8 (8.4-10.2) mg/dL Magnesium 1.4 L* (1.6-2.6) mg/dL Total Bilirubin 0.4 (0.0-1.0) mg/dL Direct Bilirubin 0.1 (0.0-0.5) mg/dL AST 29 (5-37) U/L ALT 15 (0-40) U/L Alkaline Phosphatase 61 (39-117) U/L Troponin I High Sens 5.0 4.0 (<3.5-35.0) ng/L Total Protein 7.5 (6.5-8.0) g/dL Albumin 3.9 (3.5-5.0) g/dL Lipase 12 (8-78) U/L COVID-19 (VICTOR M) Negative (Negative) COVID-19 Clin Com See Note Influenza Type A (PRATIMA) Negative (Negative) Influenza Type B (PRATIMA) Negative (Negative) Influenza A & B Note See Note Independent Interpretation I performed an independent interpretation of an: EKG and Plain X-Ray (normal ) Interpretation: Rate: 74 Rhythm: atrial sensed paced [place]: normal Normal P waves. Normal [place]. Normal QRS complex. ST T wave : inverted t waves I and aVL V5-V6, tall t waves ant leads qTC: 499 prior studies: no change from prior The study has been interpreted contemporaneously by me. . Radiology Impression Discussion of test interpretation with radiology: I have reviewed the radiologist's reading. External Record Review External record reviewed: Inpatient record Critical Care Time Critical Care Time Critical Care Time: Yes Total Critical Care Time: 40 Attestation: IV magnesium repletion, repeat medications, repeat troponin I attest to this time spent taking care of the patient Discharge Plan Discharge Clinical Impression: Hypomagnesemia, Alcohol abuse, Nausea & vomiting Patient Disposition: Home, Self-Care Instructions: Acute Nausea and Vomiting (ED), Hypomagnesemia (ED), Alcohol Use Disorder (ED) Additional Instructions: you were given vitamins and magnesium. stay hydrated. return for fevers, vomiting, confusion, worsening pain or any other concerns. eat a bland diet and advance slowly over the next day. INR 1.5 follow up with coumadin clinic it is low te dieron vitaminas y magnesio. Mantente hidratado. Regrese si tiene fiebre, v?mitos, confusi?n, dolor que empeora o cualquier otra inquietud. llevar braden dieta blanda y avanzar lentamente orlando el d?a siguiente. El seguimiento de INR 1,5 con la cl?carlo Coumadin es bajo. Prescriptions: New ondansetron 4 mg tablet,disintegrating 4 mg PO Q8H PRN (Reason: nausea and vomiting) Qty: 20 0RF No Action melatonin 5 mg tablet 2 tab PO BEDTIME PRN (Reason: insomnia) olanzapine 5 mg tablet 1 tab PO BEDTIME warfarin 5 mg Tablet 5 mg PO DAILY Rx Instructions: PER PT ON HOLD; START AGAIN 04/07/23 acetaminophen 500 mg Tablet 500 mg PO BID PRN (Reason: Mild Pain (Scale Score 1-4)) buspirone 10 mg Tablet 10 mg PO TID albuterol sulfate [Ventolin HFA] 90 mcg/actuation Hfa Aerosol Inhaler 2 puff INHALATION Q4H PRN (Reason: Respiratory Distress) hydroxyzine pamoate 50 mg capsule 50 mg PO BEDTIME PRN (Reason: insomnia) nicotine 21 mg/24 hr Patch 24 Hour 21 mg transdermal DAILY Qty: 28 0RF budesonide-formoterol [Symbicort] 160-4.5 mcg/actuation HFA aerosol inhaler 2 puff inhalation BID zolpidem 10 mg tablet 10 mg PO BEDTIME PRN (Reason: Insomnia) pantoprazole 40 mg tablet,delayed release (DR/EC) 40 mg PO BID magnesium oxide 400 mg (241.3 mg magnesium) tablet 800 mg PO BID thiamine HCl (vitamin B1) 100 mg tablet 100 mg PO DAILY metoprolol succinate 50 mg tablet extended release 24 hr 50 mg PO DAILY atorvastatin 20 mg tablet 20 mg PO DAILY (DME) blood pressure test kit-large Kit See Rx Instructions .ROUTE DIRECTED Qty: 1 Rx Instructions: As directed folic acid 1 mg tablet 1 mg PO DAILY lidocaine 5 % adhesive patch,medicated 1 patch topical DAILY Protocol: Apply to: Apply to: AFFECTED AREA Entresto 24-26 mg tablet 1 tab PO BID Print Language: Honduran
[2023-04-30 08:47] LABS: MANUAL DIFF FLAG NO
[2023-04-30 08:48] LABS: Basophils Absolute Auto 0.1 X10*3/uL (0.0-0.2); Basophils Percent Auto 0.8 % (0-2); Eosinophils Absolute Auto 0.1 X10*3/uL (0.0-0.4); Eosinophils Percent Auto 1.8 % (0-4); Hematocrit 30.1 % (42.0-52.0); Hemoglobin 10.1 g/dl (14.0-18.0); Imm Gran Abs Auto 0.02 X10*3/uL (0.00-0.03); Imm Gran Pct Auto 0.3 % (0.0-0.4); Lymphocytes Absolute Auto 1.5 X10*3/uL (1.2-4.9); Lymphocytes Percent Auto 20.5 % (20-40); Mean Corpuscular HGB Conc 33.6 g/dl (31.0-36.0); Mean Corpuscular Hemoglobin 28.7 pg (27.0-33.0); Mean Corpuscular Volume 85.5 fL (80.0-98.0); Mean Platelet Volume 8.8 fL (9.4-12.4); Monocytes Absolute Auto 0.6 X10*3/uL (0.1-1.2); Monocytes Percent Auto 8.6 % (2-11); Neutrophils Absolute Auto 4.9 x10*3/uL (2.0-8.3); Platelet Count 319 X10*3/uL (160-400); Red Blood Count 3.52 X10*6/uL (4.60-5.80); Red Cell Distribution Width 16.2 % (11.0-16.0); White Blood Count 7.1 X10*3/uL (4.8-10.8)
[2023-04-30 08:53] LABS: INTERNATIONAL NORM RATIO 1.5 (0.9-1.1); Prothrombin Time 18.3 SEC (11.1-13.3)
[2023-04-30] MEDS: 0.9 % Sodium Chloride 500 ML IV (08:53)
[2023-04-30] MEDS: Thiamine HCL 200 MG in 0.9 % Sodium Chloride 100 ML 204 MG IV (08:53)
[2023-04-30] MEDS: ondansetron HCL 4 MG/2 ML VIAL IVPUSH (08:53)
[2023-04-30] MEDS: PHENobarbitaL 30 MG TABLET PO (08:53)
[2023-04-30 09:03] VITALS: PULSE 78
[2023-04-30 09:04] LABS: COVID-19 Test Negative (Negative); IDNOW Serial# 08D9AD1C; IDNOW Serial# 152EDE1D; Influenza A Negative (Negative); Influenza B2 Negative (Negative)
--- NOTE | 2023-04-30 09:04 | PC.NURSE ---
patient a&ox3, iv inserted labs drawn, ekg performed, nasal swabs obtained, income tax advisor applied- vpaced 70s, vss, pt medicated per order, call lambert within reach, will continue to monitor
[2023-04-30 09:10] LABS: Alanine Aminotransferase 15 U/L (0-40); Albumin Level 3.9 g/dL (3.5-5.0); Alkaline Phosphatase 61 U/L (39-117); Anion Gap 15 (12-20); Aspartate Amino Transferase 29 U/L (5-37); Bilirubin Direct 0.1 mg/dL (0.0-0.5); Bilirubin Total 0.4 mg/dL (0.0-1.0); Blood Urea Nitrogen 9 mg/dL (9-16); Calcium 8.8 mg/dL (8.4-10.2); Carbon Dioxide 20 mmol/L (22-29); Chloride 102 mmol/L (96-108); Creatinine Clr Calc Pharmacy 79.4; Estimated Glomerular Filt Rate > 60; Glucose Random 82 mg/dL (60-115); Lipase 12 U/L (8-78); Magnesium 1.4 mg/dL (1.6-2.6); Potassium 5.7 mmol/L (3.3-5.1); Sodium 131 mmol/L (135-145); Total Protein 7.5 g/dL (6.5-8.0)
[2023-04-30] MEDS: Magnesium Sulfate/H2O 2 GM/50 ML PIGGYBACK IV (09:33)
--- NOTE | 2023-04-30 09:34 | PC.NURSE ---
tech to redraw labs, pt medicated with mag per order, pt c/o 01/12 chest pain
[2023-04-30 10:04] LABS: Potassium 4.6 mmol/L (3.3-5.1)
[2023-04-30 10:30] VITALS: BP 137/46; PULSE 80; RESP 12; TEMP 36.5; O2SAT 96
[2023-04-30] MEDS: Magnesium Hydrox/Alum Hydrox 30 ML ORAL.SUSP 15 ML PO (10:32)
[2023-04-30] MEDS: Lidocaine HCl Viscous 2 % 15 ML SOLUTION MUCOUS MEM (10:33)
--- NOTE | 2023-04-30 10:33 | PC.NURSE ---
pt c/o excessive burping, provider notified, pt medicated per order
--- NOTE | 2023-04-30 10:51 | PC.NURSE ---
repeat trop drawn per order
--- NOTE | 2023-04-30 11:50 | PC.NURSE ---
pt to CT scan
[2023-04-30 12:15] VITALS: BP 138/51; PULSE 87; RESP 18; TEMP 36.3; O2SAT 95
[2023-04-30] MEDS: Morphine Sulfate 4 MG/ML CARTRIDGE IVPUSH (12:15)
[2023-04-30] MEDS: iohexoL 350 MG/ML 75 ML INFUS..BTL 85 ML IV (12:16)
--- NOTE | 2023-04-30 12:21 | PC.NURSE ---
patient a&ox3, vss, nuclear monitoring technician intact-vpaced, pt medicated for 10/10 pain, call lambert within reach will continue to monitor
[2023-04-30 13:00] VITALS: BP 153/63; PULSE 90; RESP 18; TEMP 36.7; O2SAT 92
[2023-04-30 14:12] VITALS: BP 158/74; PULSE 94; RESP 14; TEMP 36.6; O2SAT 99
== END 2023-04-30 14:14 | disposition home or self-care (01) ==
PROVIDERS: Emergency Provider Emergency Medicine; PCP Family Medicine
DX: E83.42 Hypomagnesemia (principal); F10.10 Alcohol abuse, uncomplicated; Y90.9 Presence of alcohol in blood, level not specified; R11.2 Nausea with vomiting, unspecified; R10.13 Epigastric pain; F41.9 Anxiety disorder, unspecified; F17.210 Nicotine dependence, cigarettes, uncomplicated; Z11.52 Encounter for screening for COVID-19
CPT/HCPCS: 36415; 71045; 74177; 80048; 80076; 83690; 83735; 84132; 84484; 85025; 85610; 87502; 87635; 93005; 96361; 96365; 96366; 96375; 99285; J2270; J2405; J3411; J3475; Q9967

== ENCOUNTER → 2023-04-30 08:04 | Outpatient (BNV) | payer MEDICAID, SELFPAY | PROVIDERS: Emergency Provider Emergency Medicine; PCP Family Medicine; Visit Provider Internal Medicine Cardiovascular Disease | DX: I49.9 Cardiac arrhythmia, unspecified (principal) | CPT/HCPCS: 93010 ==

== ENCOUNTER 2023-05-17 14:16 | Inpatient (IN) | payer MEDICAID, SELFPAY ==
[2023-05-17] VITALS (11 sets, daily range): BP systolic 57–128; BP diastolic 33–75; PULSE 76–96; RESP 12–22; TEMP 36.1–37; O2SAT 88–98; BMI 26.6
--- NOTE | ~2023-05-17 | CT_ITS ---
EXAMINATION: CT HEAD WITHOUT CONTRAST CT CERVICAL SPINE WITHOUT CONTRAST CLINICAL INFORMATION: 63-year-old male head injury and neck injury COMPARISON: 04/01/2020 and 02/09/2023 TECHNIQUE: CT of the head and cervical spine were performed without intravenous contrast. Multiplanar reformats were rendered and reviewed. This CT examination was performed using dose optimization techniques as appropriate, variously including the following: *Automated exposure control *Adjustment of mA and/or kV according to patient size (this includes techniques or standardized protocols for targeted exams where dose is matched to indication/reason for exam; i.e. extremities or head) *Use of iterative reconstruction technique DLP: 724.47 mGy- cm for the head and 536.52mGy cm for cervical spine FINDINGS: CT head: Patient is status post craniotomy with a stable appearance since previous study there is compression plate visualized along the craniotomy site on the left parietal lobe there are no new fractures identified. No intracranial hemorrhage, large infarction, or mass lesion is seen. No extra-axial collection is appreciated. Ventricles and sulci still are mildly prominent without evidence of hydrocephalus. The visualized paranasal sinuses and mastoid air cells are clear. CT cervical spine: The cervical alignment is normal. The craniocervical junction is normal. The vertebral body heights are maintained. No cervical spine fracture is seen. There is straightening of cervical lordosis and multilevel degenerative changes in cervical spine with narrowing of C5-C6 and C6-C7 intervertebral disc spaces with marginal spurring. The paraspinal soft tissues are within normal limits. The partially imaged lung apices are clear. CT/CT cervical spine wo IV con IMPRESSION: CT head: No acute intracranial finding. Status post left parietal craniotomy and mild volume loss CT cervical spine: No cervical spine fracture or traumatic malalignment identified. Degenerative changes in muscle spasm with straightening of cervical lordosis
--- NOTE | ~2023-05-17 | CT_ITS ---
EXAMINATION: CT CHEST, ABDOMEN, AND PELVIS WITH CONTRAST CLINICAL INFORMATION: Trauma COMPARISON: abdomen from 04/30/2023 TECHNIQUE: Multidetector volumetric CT imaging of the chest, abdomen, and pelvis was obtained without the administration of intravenous contrast . Axial MIP volume rendering provided. Sagittal and coronal reformatted images were obtained. This CT examination was performed using dose optimization techniques as appropriate, variously including the following: *Automated exposure control *Adjustment of mA and/or kV according to patient size (this includes techniques or standardized protocols for targeted exams where dose is matched to indication/reason for exam; i.e. extremities or head) *Use of iterative reconstruction technique DLP: 214.56 Mgycm port the chest and 532.47 Mgycm for the abdomen and pelvis. FINDINGS: Examination is limited due to respiratory motion. LUNGS: There are diffuse groundglass opacities seen through the upper lobes and lower lobes consistent with pneumonia. Due to motion evaluation of nodules is limited. There is no pleural effusion. MEDIASTINUM: Aorta is nondilated. Pacemaker leads visualized through the right atrium and ventricle. Patient is status post medial sternotomy for CABG. There is no pericardial effusion seen the heart is prominent. CORONARY ARTERY CALCIFICATION: There are coronary artery calcification but patient is status post CABG. PLEURA: There is no pleural effusion. No pleural mass or thickening. AXILLA: No lymphadenopathy by size criteria. LIVER, GALLBLADDER, AND BILIARY TREE: Liver is homogeneous, enlarged. Without intrahepatic masses or ductal dilatation seen. Unremarkable appearance of the gallbladder. PANCREAS: Unremarkable SPLEEN: Splenic calcifications present. Spleen is mildly enlarged. There is no fluid collection surrounding spleen. ADRENAL GLANDS: Unremarkable KIDNEYS AND URETERS: The kidneys appear unremarkable in size, shape, and attenuation. No hydronephrosis, hydroureter, or calculi seen. BLADDER: Unremarkable GASTROINTESTINAL TRACT: The small and large bowel appear unremarkable. ABDOMINAL WALL: Questionable abdominal wall limited due to motion LYMPH NODES: No evidence of adenopathy by size criteria. VASCULAR: There are atherosclerotic calcification of abdominal aorta and common iliac arteries but no evidence of aneurysmal dilatation. PELVIC VISCERA: Unremarkable OSSEOUS STRUCTURES: There are multilevel degenerative changes in thoracic and lumbar spine without evidence of acute fractures. There is mild wedge-shaped deformity of L2 and T12 vertebral bodies, seen on the previous study. Patient is status post median sternotomy. CT/CT abdomen pelvis wo IV con IMPRESSION: 1. Limited study due to respiratory motion. 2. Diffuse groundglass opacities consistent with pneumonia bilaterally. 3. Cardiomegaly. 4. Hepatosplenomegaly. 5. Chronic compression deformities of L2 and T12
--- NOTE | ~2023-05-17 | XR_ITS ---
EXAMINATION: XR CHEST CLINICAL INFORMATION: Cough. COMPARISON: 04/30/2023. TECHNIQUE: Frontal view of the chest was obtained. FINDINGS: The cardiomediastinal silhouette is stable. There has been a prior median sternotomy. Pacer leads are in place. There is pulmonary vascular congestion as well as diffuse increased markings and patchy bilateral multifocal infiltrates. There is blunting of the costophrenic angles. The bony structures and soft tissues are unremarkable. XR/XR chest 1V IMPRESSION: Pulmonary vascular congestion, increased markings and patchy bilateral multifocal infiltrates, likely representing pulmonary edema. Pneumonia considered less likely.
--- NOTE | ~2023-05-17 | CT_ITS ---
EXAMINATION: CT HEAD WITHOUT CONTRAST CLINICAL INFORMATION: Worsening encephalopathy COMPARISON: CT brain 05/17/2023 TECHNIQUE: Contiguous axial imaging was performed from the skull base to vertex without intravenous administration of contrast. This CT examination was performed using dose optimization techniques as appropriate, variously including the following: *Automated exposure control *Adjustment of mA and/or kV according to patient size (this includes techniques or standardized protocols for targeted exams where dose is matched to indication/reason for exam; i.e. extremities or head) *Use of iterative reconstruction technique DLP: 781 mGy-cm FINDINGS: There is no acute intra-axial, extra-axial bleed, masses or midline shift. There is right lateral temporal lobe encephalomalacia from old insult. The lateral ventricles are symmetrical in size but moderately enlarged. There is mild prominence of cerebral cortical sulci.. The finley to white matter differentiation is maintained. Bone windows reveal left parietal craniotomy changes. Otherwise rest of the calvarium is unremarkable. Bilateral paranasal sinuses and mastoid air cells are well-aerated except for minimal mucoperiosteal thickening or debris in the dependent segment of left maxillary sinus. CT/CT head/brain wo IV con IMPRESSION: 1. No acute intracranial process seen. 2. Right lateral temporal lobe encephalomalacia from old insult. 3. Left parietal craniotomy changes.
--- NOTE | 2023-05-17 14:29 | ED_ITS ---
HPI - General Adult General Chief complaint: Altered Mental Status Stated complaint: bp high, hallucinating Time Seen by Provider: 05/17/23 14:34 Source: family, RN notes reviewed and old records reviewed History of Present Illness HPI narrative: 63-year-old male with past medical history of cirrhosis, GIB, heart block s/p pacemaker, GERD, EtOH abuse with history of recurrent falls, hyponatremia, HTN, CHF, on Coumadin, presenting to ED with [id number] for noted altered mental status/hallucinations, and suspected fall a couple days ago. History obtained from [id number] who states patient has been walking with a limp/bend over and suspicious he fell. Patient lives home alone. History limited due to patient's acute mental status Related Data Home Medications Medication Instructions Recorded Confirmed melatonin 5 mg tablet 2 tab PO BEDTIME PRN insomnia 10/18/20 04/02/23 atorvastatin 20 mg tablet 20 mg PO DAILY 11/18/20 04/02/23 blood pressure test kit-large #1 ea 11/18/20 02/09/23 folic acid 1 mg tablet 1 mg PO DAILY 11/18/20 04/02/23 lidocaine 5 % topical patch 1 patch topical DAILY 11/18/20 04/02/23 magnesium oxide 400 mg (241.3 mg 800 mg PO BID 11/18/20 04/02/23 magnesium) tablet metoprolol succinate 50 mg 50 mg PO DAILY 11/18/20 04/02/23 tablet,extended release 24 hr pantoprazole 40 mg tablet,delayed 40 mg PO BID 11/18/20 04/02/23 release thiamine HCl (vitamin B1) 100 mg 100 mg PO DAILY 11/18/20 04/02/23 tablet zolpidem 10 mg tablet 10 mg PO BEDTIME PRN Insomnia 12/02/20 04/02/23 olanzapine 5 mg tablet 1 tab PO BEDTIME 10/10/21 04/02/23 acetaminophen 500 mg tablet 500 mg PO BID PRN Mild Pain (Scale 05/11/22 04/02/23 Score 1-4) albuterol sulfate 90 mcg/actuation 2 puff inhalation Q4H PRN 05/11/22 04/02/23 aerosol inhaler (Ventolin HFA) Respiratory Distress buspirone 10 mg tablet 10 mg PO TID 05/11/22 04/02/23 warfarin 5 mg tablet 5 mg PO DAILY 05/11/22 04/02/23 sacubitril 24 mg-valsartan 26 mg 1 tab PO BID 06/12/22 04/02/23 tablet (Entresto) hydroxyzine pamoate 50 mg capsule 50 mg PO BEDTIME PRN insomnia 11/17/22 04/02/23 budesonide-formoterol HFA 160 2 puff inhalation BID 02/09/23 04/02/23 mcg-4.5 mcg/actuation aerosol inhaler (Symbicort) clopidogrel 75 mg tablet 75 mg PO QAM 05/17/23 Previous Rx's Medication Instructions Recorded nicotine 21 mg/24 hr daily 21 mg transdermal DAILY #28 ea 04/03/23 transdermal patch ondansetron 4 mg disintegrating 4 mg PO Q8H PRN nausea and 04/30/23 tablet vomiting #20 tabs Allergies Allergy/AdvReac Type Severity Reaction Status Date / Time lorazepam [From ATIVAN] AdvReac Severe OPPOSITE Verified 04/01/23 15:19 EFFECT PSYCOTIC EFECTS Review of Systems 2 Review of Systems: History limited due to patient's acute mental status Yes all other systems are reviewed and are negative Constitutional: Constitutional: Reports as per [facility] Past Medical History Attestation statement: The following information was validated with the patient. Source: old records reviewed Medical History Intracranial hemorrhage Coronary artery disease Chronic systolic CHF (congestive heart failure) Hypertension Short-segment Harrell's esophagus Pacemaker Skull fracture Alcoholic liver disease Cocaine abuse Alcohol abuse Surgical History S/P CABG (coronary artery bypass graft) H/O aortic valve replacement History of esophagogastroduodenoscopy (EGD) Aortic valve replaced Social History Social History Household Members: None Housing: Apartment Alcohol intake: current Alcohol intake frequency: 3 or more drinks per day Alcohol type: beer Comment: patient refuses alarms , and fall prevention measures Patient Tobacco Use Status: Current everyday Tobacco user Tobacco use type: Cigarette Cigarette Packs Per Day: 10 Cigarettes Per Day: 200.0 Smoked in Last 30 Days: Yes Second Hand Smoke Exposure: No Substance Use Type: Marijuana Advance Directives: Yes Advance Directives on File: Yes Advance Directives Date on File: 10/11/21 service: No Current occupational status: unemployed Physical Exam ED Vital Signs: Vital Signs - 24 hr 05/17/23 14:29 05/17/23 15:44 05/17/23 16:00 Temperature 97.9 F 97 F Pulse Rate 96 79 80 Respiratory Rate 12 18 18 Blood Pressure 57/33 L 96/41 L 103/52 L Pulse Oximetry 88 L 98 93 Oxygen Delivery Method Room Air Nasal Cannula Nasal Cannula Oxygen Flow Rate 4 2 BMI result Body Mass Index 26.6 Const Other: Lethargic General: ill appearing Limitations: altered mental status HENKY Head: Yes normal to inspection and Yes atraumatic Ears: hearing grossly normal bilaterally General nose exam: Normal external nose present Face and sinus: Yes normal facial exam Eyes General: appearance normal, both eyes and all related structures Pupils: Equal, round and reactive pupils present EOM: EOMs intact bilaterally Neck Neck: Yes normal visual inspection and Yes no meningeal signs Resp Effort & Inspection: normal respiratory effort and no respiratory distress Auscultation: clear to auscultation bilaterally Cardio Rate: regular rate Heart sounds: S1 normal heart sound present and S2 normal heart sound present GI Inspection: Yes normal to inspection Palpation (GI): Soft to palpation, nontender, no guarding and not rigid Back/Spine/Pelvis Other: No midline cervical/thoracic/lumbar spinous tenderness/step-off or deformity Skin Rashes: no rashes Wounds: no wounds Neuro General: tone normal, moves all extremities and no meningeal signs Cranial nerves: Yes CN's II-XII intact bilaterally and Yes Equal, round and reactive pupils present Extrem General: Yes normal to inspection Course Course Course Narrative: RME performed by Karly Quinn PA-C. Patient is a 63 year old assigned male at presenting to the emergency department with a fall and delusions. Detailed physical exam and review of systems are deferred to the doctor of naturopathic medicine. Labs, imaging, and swabs ordered. Charge nurse made aware. -1612--leukocytosis of 13.4 > no evidence of infection. Still low suspicion for severe sepsis. Acute on chronic anemia 9.04/30. Acute on chronic hyponatremia to 126 > likely from beer potomania. EDGAR with a BUN of 34 and creatinine of 2.47 -lactic acid 2.0. Acute on chronic transaminitis. CPK elevated to 3655. -ethanol negative > phenobarb protocol initiated -1619--INR elevated to 11.9, PTT 66.7 > no evidence of active bleeding, H/H stable. Bedside FAST negative for free fluid > will hold Coumadin at this time. No need for vitamin K -1630--ED care transferred to [facility] pending remaining labs, UA and imaging. Plan for admission. Reevaluation(s) Reevaluation #1: I assumed care of patient. At this time infection is suspected, CT findings consistent with diffuse ground-glass opacities, pneumonia bilaterally, will cover with ceftriaxone and azithromycin. CT head and cervical spine without acute abnormality. CT abdomen and pelvis without acute etiology. Nursing staff has advised me at this time that when they presented to the room they found him consuming an unknown pill. When asked he reports that it is Ambien, and reportedly has taken 4 of them. Time: 17:22 Medications Administered Generic Name Dose Route Start Last Admin Trade Name Freq PRN Reason Stop Dose Admin Albumin Human 100 mls @ 100 mls/hr 05/17/23 16:15 05/17/23 17:05 Kedbumin 25 % IV 05/17/23 18:14 100 mls/hr Q1H CAMMY Administration Discontinued Medications Generic Name Dose Route Start Last Admin Trade Name Freq PRN Reason Stop Dose Admin Sodium Chloride 1,000 mls @ 999 mls/hr 05/17/23 14:45 05/17/23 16:06 Ns IV 05/17/23 15:45 Infused .Q1H1M CAMYM Infusion Sodium Chloride 1,000 mls @ 999 mls/hr 05/17/23 15:00 05/17/23 16:06 Ns IV 05/17/23 16:00 Infused .Q1H1M CAMMY Infusion Sodium Chloride 1,000 mls @ 999 mls/hr 05/17/23 15:15 05/17/23 16:42 Ns IV 05/17/23 16:15 Infused .Q1H1M CAMMY Infusion Thiamine HCl 100 mg/ Sodium 101 mls @ 202 mls/hr 05/17/23 16:11 05/17/23 16:39 Chloride IV 05/17/23 16:40 202 mls/hr ONCE ONE Administration Medical Decision Making Medical Decision Making MDM Narrative: 63-year-old male with past medical history of cirrhosis, GIB, heart block s/p pacemaker, GERD, EtOH abuse with history of recurrent falls, hyponatremia, HTN, CHF, on Coumadin, presenting to ED with [id number] for noted altered mental status/hallucinations, and suspected fall a couple days ago. On exam hypotensive, hypoxic 88% on RA, lethargic/sluggish, no evidence of trauma, bedside FAST negative for free fluid, abdomen soft/nontender. Concern for internal bleeding/anemia vs ICH vs ETOH/substance abuse vs metabolic/infectious etiology. Low suspicion for severe sepsis at this time. Dr. Baron at bedside, IV line placed to left EJ and right foot Plan: EKG, labs, UA, CT head/C-spine/chest/abdomen/pelvis, type and screen, viral testing, IV fluid resuscitation, anticipate admission Please refer to course for remaining clinical decision making, interpretation of labs/imaging results, and discussions with consultants and/or family members. Differential Diagnosis Differential Diagnoses: The differential diagnosis associated with the presentation includes As above Admission/Observation Consideration of admission/observation: Escalation of care including admission/observation considered Lab Data MDM Lab Attestation statement: I reviewed the patient's lab results. 05/17/23 15:05 05/17/23 15:05 Labs: Lab Results 05/17/23 05/17/23 05/17/23 Range/Units 14:38 15:05 15:08 WBC 13.4 H (4.8-10.8) X10*3/uL RBC 3.21 L (4.60-5.80) X10*6/uL Hgb 9.1 L (14.0-18.0) g/dl Hct 26.0 L (42.0-52.0) % MCV 81.0 (80.0-98.0) fL MCH 28.3 (27.0-33.0) pg MCHC 35.0 (31.0-36.0) g/dl RDW 16.1 H (11.0-16.0) % Plt Count 199 D (160-400) X10*3/uL MPV 10.2 (9.4-12.4) fL Immature Gran % (Auto) 1.2 H (0.0-0.4) % Neut % (Auto) 85.8 H (45-73) % Lymph % (Auto) 4.8 L (20-40) % [place] % (Auto) 7.9 (2-11) % Eos % (Auto) 0.2 (0-4) % Baso % (Auto) 0.1 (0-2) % Lymph # (Auto) 0.6 L (1.2-4.9) X10*3/uL [place] # (Auto) 1.1 (0.1-1.2) X10*3/uL Eos # (Auto) 0.0 (0.0-0.4) X10*3/uL Baso # (Auto) 0.0 (0.0-0.2) X10*3/uL Abs Immat Gran (auto) 0.16 H (0.00-0.03) X10*3/uL Absolute Neuts (auto) 11.5 H (2.0-8.3) x10*3/uL Absolute Nucleated RBC 0.000 (0.0-0.012) X10*3/uL Nucleated RBC % (auto) 0.0 (0.0-0.2) /100WBC PT (11.1-13.3) SEC INR (0.9-1.1) APTT (26.0-36.8) SEC Sodium 126 L (135-145) mmol/L Potassium 4.8 (3.3-5.1) mmol/L Chloride 99 (96-108) mmol/L Carbon Dioxide 16 L (22-29) mmol/L Anion Gap 16 (12-20) BUN 34 H (9-16) mg/dL Creatinine 2.47 H (0.5-1.4) mg/dL Estim Creat Clear Calc 33.5 Estimated GFR 27 POC Glucose 131 H (60-115) mg/dL Random Glucose 113 (60-115) mg/dL Lactic Acid 2.0 (0.5-2.0) mmol/L Calcium 7.7 L D (8.4-10.2) mg/dL Magnesium 1.6 (1.6-2.6) mg/dL Total Bilirubin 1.1 H (0.0-1.0) mg/dL AST 368 H (5-37) U/L ALT 454 H (0-40) U/L Alkaline Phosphatase 91 (39-117) U/L Total Creatine Kinase 3655 H (38-174) U/L Troponin I High Sens 8.1 D (<3.5-35.0) ng/L B-Natriuretic Peptide 111 H (<100) pg/mL Total Protein 5.9 L (6.5-8.0) g/dL Albumin 3.0 L (3.5-5.0) g/dL Lipase 5 L (8-78) U/L Urine Color Urine Appearance Urine pH (5.0-9.0) Ur Specific [place] (1.005-1.025) Urine Protein (Neg-Trace) mg/dL Urine Glucose (UA) (Negative) mg/dL Urine Ketones (Negative) mg/dL Urine Blood (Negative) Urine Nitrite (Negative) Ur Leukocyte Esterase (Negative) Urine RBC (0-2) /HPF Urine WBC (0-5) /HPF Ur Squamous Epith Cells (0-2) /HPF Urine Bacteria (None Seen) Hyaline Casts (0-2) /LPF Ethyl Alcohol < 10 mg/dL COVID-19 (VICTOR M) Negative (Negative) COVID-19 Clin Com See Note Influenza Type A (PRATIMA) Negative (Negative) Influenza Type B (PRATIMA) Negative (Negative) Influenza A & B Note See Note Blood Type Antibody Screen 05/17/23 05/17/23 Range/Units 15:43 16:41 WBC (4.8-10.8) X10*3/uL RBC (4.60-5.80) X10*6/uL Hgb (14.0-18.0) g/dl Hct (42.0-52.0) % MCV (80.0-98.0) fL MCH (27.0-33.0) pg MCHC (31.0-36.0) g/dl RDW (11.0-16.0) % Plt Count (160-400) X10*3/uL MPV (9.4-12.4) fL Immature Gran % (Auto) (0.0-0.4) % Neut % (Auto) (45-73) % Lymph % (Auto) (20-40) % [place] % (Auto) (2-11) % Eos % (Auto) (0-4) % Baso % (Auto) (0-2) % Lymph # (Auto) (1.2-4.9) X10*3/uL [place] # (Auto) (0.1-1.2) X10*3/uL Eos # (Auto) (0.0-0.4) X10*3/uL Baso # (Auto) (0.0-0.2) X10*3/uL Abs Immat Gran (auto) (0.00-0.03) X10*3/uL Absolute Neuts (auto) (2.0-8.3) x10*3/uL Absolute Nucleated RBC (0.0-0.012) X10*3/uL Nucleated RBC % (auto) (0.0-0.2) /100WBC PT 145.3 H D (11.1-13.3) SEC INR 11.9 H* D (0.9-1.1) APTT 66.7 H* (26.0-36.8) SEC Sodium (135-145) mmol/L Potassium (3.3-5.1) mmol/L Chloride (96-108) mmol/L Carbon Dioxide (22-29) mmol/L Anion Gap (12-20) BUN (9-16) mg/dL Creatinine (0.5-1.4) mg/dL Estim Creat Clear Calc Estimated GFR POC Glucose (60-115) mg/dL Random Glucose (60-115) mg/dL Lactic Acid (0.5-2.0) mmol/L Calcium (8.4-10.2) mg/dL Magnesium (1.6-2.6) mg/dL Total Bilirubin (0.0-1.0) mg/dL AST (5-37) U/L ALT (0-40) U/L Alkaline Phosphatase (39-117) U/L Total Creatine Kinase (38-174) U/L Troponin I High Sens (<3.5-35.0) ng/L B-Natriuretic Peptide (<100) pg/mL Total Protein (6.5-8.0) g/dL Albumin (3.5-5.0) g/dL Lipase (8-78) U/L Urine Color Yellow Urine Appearance Clear Urine pH 5.5 (5.0-9.0) Ur Specific [place] <= 1.005 (1.005-1.025) Urine Protein Trace (Neg-Trace) mg/dL Urine Glucose (UA) Negative (Negative) mg/dL Urine Ketones Negative (Negative) mg/dL Urine Blood Large (3+) H (Negative) Urine Nitrite Negative (Negative) Ur Leukocyte Esterase Negative (Negative) Urine RBC 0-2 (0-2) /HPF Urine WBC 0-5 (0-5) /HPF Ur Squamous Epith Cells 0-2 (0-2) /HPF Urine Bacteria None Seen (None Seen) Hyaline Casts 0-2 (0-2) /LPF Ethyl Alcohol mg/dL COVID-19 (VICTOR M) (Negative) COVID-19 Clin Com Influenza Type A (PRATIMA) (Negative) Influenza Type B (PRATIMA) (Negative) Influenza A & B Note Blood Type O Positive Antibody Screen NEGATIVE Independent Interpretation I performed an independent interpretation of an: EKG and CT Scan Radiology Impression Discussion of test interpretation with radiology: I have reviewed the radiologist's reading. Radiologist Impression: CT/CT abdomen pelvis wo IV con IMPRESSION: 1. Limited study due to respiratory motion. 2. Diffuse groundglass opacities consistent with pneumonia bilaterally. 3. Cardiomegaly. 4. Hepatosplenomegaly. 5. Chronic compression deformities of L2 and T12 CT/CT head/brain wo IV con IMPRESSION: CT head: No acute intracranial finding. Status post left parietal craniotomy and mild volume loss CT cervical spine: No cervical spine fracture or traumatic malalignment identified. Degenerative changes in muscle spasm with straightening of cervical lordosis Independent Historian Clinical information obtained from an independent historian. History obtained from or confirmed by: Other (brother in law) External Record Review External record reviewed: Inpatient record, Office record, Outpatient record, Prior outpatient labs, Prior outpatient radiology, Primary care record and Outside ED record Tests considered The following testing was considered but not selected: As above Chronic Conditions Patient?s care impacted by: Other Social Determinants Patient?s care significantly limited by Social Determinants of Health including: Low income and Alcoholism and drug addiction in family Critical Care Time Critical Care Time Critical Care Time: Yes Total Critical Care Time: 60 Attestation: I have personally provided critical care time exclusive of time spent on separately billable procedures. Time includes review of lab data, radiology results, discussion with consultants, and monitoring for potential decompensation. Intervention performed as documented. Discharge Plan Discharge Clinical Impression: ETOH abuse, Fall, Supratherapeutic INR, EDGAR (acute kidney injury), Rhabdomyolysis, Sepsis Patient Disposition: Admitted As Inpatient
--- NOTE | 2023-05-17 14:30 | ECG_ITS ---
Test Reason : AMS Blood Pressure : / mmHG Vent. Rate : 080 BPM Atrial Rate : 080 BPM P-R Int : 132 ms QRS Dur : 198 ms QT Int : 488 ms P-R-T Axes : 000 072 214 degrees QTc Int : 562 ms Atrial-sensed ventricular-paced rhythm Abnormal ECG When compared with ECG of 30-APR-2023 08:06, Vent. rate has increased BY 6 BPM Referred By: Karly Quinn Electronically Signed By:Roosevelt Woodruff
[2023-05-17 14:43] LABS: Glucose, Whole Blood 131 mg/dL (60-115)
[2023-05-17] MEDS: 0.9 % Sodium Chloride 1,000 ML 999 ML IV ×3 (14:57→15:34)
--- NOTE | 2023-05-17 15:00 | PC.NURSE ---
brother in [facility]- Clay Teran [phone]
[2023-05-17 15:16] LABS: MANUAL DIFF FLAG NO
[2023-05-17 15:17] LABS: Basophils Percent Auto 0.1 % (0-2); Eosinophils Percent Auto 0.2 % (0-4); Hemoglobin 9.1 g/dl (14.0-18.0); Imm Gran Abs Auto 0.16 X10*3/uL (0.00-0.03); Imm Gran Pct Auto 1.2 % (0.0-0.4); Lymphocytes Absolute Auto 0.6 X10*3/uL (1.2-4.9); Lymphocytes Percent Auto 4.8 % (20-40); Mean Corpuscular Hemoglobin 28.3 pg (27.0-33.0); Mean Platelet Volume 10.2 fL (9.4-12.4); Monocytes Absolute Auto 1.1 X10*3/uL (0.1-1.2); Monocytes Percent Auto 7.9 % (2-11); Neutrophils Absolute Auto 11.5 x10*3/uL (2.0-8.3); Neutrophils Percent Auto 85.8 % (45-73); Platelet Count 199 X10*3/uL (160-400); Red Blood Count 3.21 X10*6/uL (4.60-5.80); Red Cell Distribution Width 16.1 % (11.0-16.0); White Blood Count 13.4 X10*3/uL (4.8-10.8)
[2023-05-17 15:33] LABS: COVID-19 Test Negative (Negative); IDNOW Serial# 152EDE1D; IDNOW Serial# 9DB6401D; Influenza A Negative (Negative); Influenza B2 Negative (Negative)
[2023-05-17 16:03] LABS: Lipase 5 U/L (8-78)
[2023-05-17 16:06] LABS: B Type Natriuretic Peptide 111 pg/mL (<100)
[2023-05-17 16:07] LABS: Alanine Aminotransferase 454 U/L (0-40); Alkaline Phosphatase 91 U/L (39-117); Anion Gap 16 (12-20); Aspartate Amino Transferase 368 U/L (5-37); Bilirubin Total 1.1 mg/dL (0.0-1.0); Blood Urea Nitrogen 34 mg/dL (9-16); Calcium 7.7 mg/dL (8.4-10.2); Carbon Dioxide 16 mmol/L (22-29); Chloride 99 mmol/L (96-108); Creatinine Clr Calc Pharmacy 33.5; Estimated Glomerular Filt Rate 27; Ethanol < 10 mg/dL; Glucose Random 113 mg/dL (60-115); Magnesium 1.6 mg/dL (1.6-2.6); Potassium 4.8 mmol/L (3.3-5.1); Sodium 126 mmol/L (135-145); Total Protein 5.9 g/dL (6.5-8.0)
[2023-05-17 16:10] LABS: Prothrombin Time 145.3 SEC (11.1-13.3)
[2023-05-17 16:18] LABS: INTERNATIONAL NORM RATIO 11.9 (0.9-1.1); Partial Thromboplastin Time 66.7 SEC (26.0-36.8)
[2023-05-17 16:23] LABS: Troponin-I High Sensitivity 8.1 ng/L (<3.5-35.0)
[2023-05-17] MEDS: Thiamine HCL 100 MG in 0.9 % Sodium Chloride 100 ML 202 MG IV (16:39)
[2023-05-17 16:49] LABS: Appearance Urine Clear; Color Urine Yellow; Glucose Urine UA Negative (Negative); Leukocyte Esterase Urine Negative (Negative); Nitrite Urine Negative (Negative); PH 5.5 (5.0-9.0); Specific Gravity - Urine <= 1.005 (1.005-1.025); UMIC TRIGGER UACC YES; Urine Blood Large (3+) (Negative); Urine Ketones Negative (Negative); Urine Protein Trace mg/dL (Neg-Trace)
[2023-05-17 16:56] LABS: Bacteria Urine None Seen (None Seen); Hyaline Casts Urine 0-2 /LPF (0-2); RBC Urine 0-2 /HPF (0-2); Squamous Epithelial Cell Urine 0-2 /HPF (0-2); WBC Urine 0-5 /HPF (0-5)
[2023-05-17] MEDS: Albumin Human 25 % 100 ML IV ×2 (17:05→18:08)
--- NOTE | 2023-05-17 17:22 | PC.NURSE ---
This RN entered room and patient was observed taking white pills, patient stated it was for pain. Declined initially to let RN see pills and continued to try to take while round pill. Stating he already took 4 pills. When asked again what the pills were for he stated for sleep . Charge nurse and provider notified. Order to hod phenobarb at this time. Patient changed over by security and belongings locked in POD. 1 intact pill found on patient and brought to pharmacist for review
--- NOTE | 2023-05-17 18:02 | PC.NURSE ---
Patient ambulated out of room, removed IJ, ripped IV tubing in half and attempted to walk down hallway. Pressure dressing applied , re directed back to room. Provider aware,
[2023-05-17] MEDS: cefTRIAXone sodium 1 GM in 0.9 % Sodium Chloride 50 ML IV (18:07)
[2023-05-17] MEDS: Doxycycline Hyclate 100 MG in 0.9 % Sodium Chloride 250 ML 166.67 MG IV (18:14)
--- NOTE | 2023-05-17 18:40 | PM.IMHP ---
History of Present Illness Date of Service: 05/17/23 Attending physician on admission: Dimitry Diamond Chief Complaint: confusion 63-year-old male with pertinent history of aortic valve replacement on Coumadin, alcohol use disorder with alcoholic liver disease, history of cocaine use disorder, congestive heart failure with reduced ejection history of intracranial hemorrhage, CAD status post CABG, mood disorder presented to the ED at with his sister and niece due to lethargy and weakness. The patient is confused disoriented even to self and cannot obtain history. Call placed to Roxy randall, who assists with history. She states he drinks alot of alcohol and has been trying to cut back and she reports he has been confused. She is concerned about him taking his medications correctly. When she arrived to his apartment, he was not walking well, was lethargic, and they brought him in for further evaluation. On arrival, patient hypotensive to 57/53, responded well to IV fluids and albumin with blood pressure on admission 110/54. He was also noted to be hypoxic to 83% on room air and has been maintaining oximetry 92-94% on 4 L supplemental O2. There is a leukocytosis of 13.4. H/H 9.1/26.0%, consistent with baseline. Creatinine 2.47, baseline 1. BUN 34. Sodium 126, baseline around 130-131. CO2 16. AST 368, ALT 464. Total CK 3655. Troponin 8.1. BNP 111. Urinalysis unremarkable except for 3+ blood, ethyl alcohol level below detectable limits. Negative for COVID-19, influenza. PT 145.3, INR 11.9. PTT [address] negative for any acute intracranial abnormality including hemorrhage. CT cervical spine negative for any acute osseous abnormality. CT abdomen/pelvis shows hepatosplenomegaly, negative for any acute intra-abdominal pathology. Chest CT shows diffuse ground-glass opacities consistent with pneumonia bilaterally as well as chronic compression deformities of L2 and T12. In the Ed, given 3L IV NS, IV albumin x2, 1g ctx, doxycycline, IV thiamine. In the ED, pt confused and was observed taking 4 unknown tablets which were believed to be Ambien, but markings on remaining pills illegible. Review of Systems Review of Systems: Yes Unobtainable due to mental status PMFSH Medical History Intracranial hemorrhage Coronary artery disease Chronic systolic CHF (congestive heart failure) Hypertension Short-segment Harrell's esophagus Pacemaker Skull fracture Alcoholic liver disease Cocaine abuse Alcohol abuse Surgical History S/P CABG (coronary artery bypass graft) H/O aortic valve replacement History of esophagogastroduodenoscopy (EGD) Aortic valve replaced Social History Household Members: None Housing: Apartment Alcohol intake: current Alcohol intake frequency: 3 or more drinks per day Alcohol type: beer Comment: patient refuses alarms , and fall prevention measures Patient Tobacco Use Status: Current everyday Tobacco user Tobacco use type: Cigarette Cigarette Packs Per Day: 10 Cigarettes Per Day: 200.0 Smoked in Last 30 Days: Yes Second Hand Smoke Exposure: No Substance Use Type: Marijuana Advance Directives: Yes Advance Directives on File: Yes Advance Directives Date on File: 10/11/21 service: No Current occupational status: unemployed Meds Allergies Allergy/AdvReac Type Severity Reaction Status Date / Time lorazepam [From ATIVAN] AdvReac Severe OPPOSITE Verified 04/01/23 15:19 EFFECT PSYCOTIC EFECTS Active Medications: Current Medications Acetaminophen (Acetaminophen 325 Mg Tablet) 650 mg PO Q6H PRN PRN Reason: Pain, Mild (Pain Scale 1-3) Ceftriaxone Sodium 1 gm/ (Sodium Chloride) 50 mls @ 100 mls/hr IV Q24H [facility] Last Admin: 05/17/23 18:07 Dose: 100 mls/hr Doxycycline Hyclate 100 mg/ (Sodium Chloride) 250 mls @ 166.67 mls/hr IV Q12H [facility] Last Admin: 05/17/23 18:14 Dose: 166.67 mls/hr Sodium Chloride (Ns) 1,000 mls @ 100 mls/hr IVCONT .Q10H [facility] Ondansetron HCl (Ondansetron Hcl 4 Mg/2 Ml Vial) 4 mg IVPUSH Q8H PRN PRN Reason: Nausea and Vomiting Pharmacy Consult (Consult Rx Etoh Phenob Im/Po) 1 each MISCELLANE ONCE PRN; Protocol PRN Reason: Consult order Senna (Sennosides 8.6 Mg Tablet) 17.2 mg PO BEDTIME PRN PRN Reason: Constipation Sodium Chloride (0.9 % Sodium Chloride Flush 3 Ml Syringe) 3 ml IVFLUSH QSHIFT [facility] Home Medications Medication Instructions Recorded Confirmed Last Taken Type melatonin 5 mg tablet 2 tab PO BEDTIME PRN insomnia 10/18/20 05/17/23 Unknown History atorvastatin 20 mg tablet 20 mg PO DAILY 11/18/20 05/17/23 04/02/23 09:00 History blood pressure test kit-large #1 ea 11/18/20 02/09/23 Unknown History folic acid 1 mg tablet 1 mg PO DAILY 11/18/20 05/17/23 04/02/23 09:00 History lidocaine 5 % topical patch 1 patch topical DAILY 11/18/20 05/17/23 04/02/23 09:00 History magnesium oxide 400 mg (241.3 mg 800 mg PO BID 11/18/20 05/17/23 04/02/23 09:00 History magnesium) tablet metoprolol succinate 50 mg 50 mg PO DAILY 11/18/20 05/17/23 04/02/23 09:00 History tablet,extended release 24 hr pantoprazole 40 mg tablet,delayed 40 mg PO BID 11/18/20 05/17/23 04/02/23 09:00 History release thiamine HCl (vitamin B1) 100 mg 100 mg PO DAILY 11/18/20 05/17/23 04/02/23 09:00 History tablet zolpidem 10 mg tablet 10 mg PO BEDTIME PRN Insomnia 12/02/20 05/17/23 10/10/21 History olanzapine 5 mg tablet 1 tab PO BEDTIME 10/10/21 05/17/23 Unknown History acetaminophen 500 mg tablet 500 mg PO BID PRN Mild Pain (Scale 05/11/22 05/17/23 Unknown History Score 1-4) albuterol sulfate 90 mcg/actuation 2 puff inhalation Q4H PRN 05/11/22 05/17/23 Unknown History aerosol inhaler (Ventolin HFA) Respiratory Distress buspirone 10 mg tablet 10 mg PO TID 05/11/22 05/17/23 04/02/23 09:00 History warfarin 5 mg tablet 5 mg PO DAILY 05/11/22 04/02/23 04/02/23 09:00 History sacubitril 24 mg-valsartan 26 mg 1 tab PO BID 06/12/22 05/17/23 04/02/23 09:00 History tablet (Entresto) hydroxyzine pamoate 50 mg capsule 50 mg PO BEDTIME PRN insomnia 11/17/22 05/17/23 Unknown History budesonide-formoterol HFA 160 2 puff inhalation BID 02/09/23 05/17/23 04/02/23 09:00 History mcg-4.5 mcg/actuation aerosol inhaler (Symbicort) clopidogrel 75 mg tablet 75 mg PO QAM 05/17/23 05/17/23 Unknown History Physical Exam Vital Signs and Narrative: Vital Signs: Last Vital Signs Temp 97 F 05/17/23 16:00 Pulse 81 05/17/23 18:17 Resp 18 05/17/23 18:17 BP 110/54 L 05/17/23 18:21 Pulse Ox 92 05/17/23 18:17 O2 Del Method Nasal Cannula 05/17/23 18:17 O2 Flow Rate 4 05/17/23 18:17 BMI result Body Mass Index 26.6 Constitutional - Awake and Alert, No apparent distress Eyes - PERRLA, EOMI Cardiovascular - S1S2, RRR, No edema Respiratory - Normal lung expansion, Normal respiratory effort, No respiratory distress, CTA bilaterally Gastrointestinal - NT / ND; +BS; No rebound or guarding Extremities - no calf tenderness bilaterally, no swelling Skin - Warm/Dry Neurological - Alert & disoriented,unable to participate in CN exam, 5/5 strength BUE and BLE, moving all extremities, trying to get out of bed Psychological - Appropriate affect Results Labs 05/17/23 15:05 05/17/23 20:15 Labs: Laboratory Results - last 24 hr 05/17/23 05/17/23 05/17/23 14:38 15:05 15:08 MCV 81.0 MCH 28.3 MCHC 35.0 RDW 16.1 H Plt Count 199 D MPV 10.2 Immature Gran % (Auto) 1.2 H Neut % (Auto) 85.8 H Lymph % (Auto) 4.8 L Day % (Auto) 7.9 Eos % (Auto) 0.2 Baso % (Auto) 0.1 Lymph # (Auto) 0.6 L Day # (Auto) 1.1 Eos # (Auto) 0.0 Baso # (Auto) 0.0 Abs Immat Gran (auto) 0.16 H Absolute Neuts (auto) 11.5 H Absolute Nucleated RBC 0.000 Nucleated RBC % (auto) 0.0 PT INR APTT Anion Gap 16 Estim Creat Clear Calc 33.5 Estimated GFR 27 POC Glucose 131 H Random Glucose 113 Lactic Acid 2.0 Calcium 7.7 L D Magnesium 1.6 Total Bilirubin 1.1 H AST 368 H ALT 454 H Alkaline Phosphatase 91 Total Creatine Kinase 3655 H B-Natriuretic Peptide 111 H Total Protein 5.9 L Albumin 3.0 L Lipase 5 L Urine Color Urine Appearance Urine pH Ur Specific [place] Urine Protein Urine Glucose (UA) Urine Ketones Urine Blood Urine Nitrite Ur Leukocyte Esterase Urine RBC Urine WBC Ur Squamous Epith Cells Urine Bacteria Hyaline Casts Ethyl Alcohol < 10 COVID-19 (VICTOR M) Negative COVID-19 Clin Com See Note Influenza Type A (PRATIMA) Negative Influenza Type B (PRATIMA) Negative Influenza A & B Note See Note Blood Type Antibody Screen 05/17/23 05/17/23 15:43 16:41 MCV MCH MCHC RDW Plt Count MPV Immature Gran % (Auto) Neut % (Auto) Lymph % (Auto) Day % (Auto) Eos % (Auto) Baso % (Auto) Lymph # (Auto) Day # (Auto) Eos # (Auto) Baso # (Auto) Abs Immat Gran (auto) Absolute Neuts (auto) Absolute Nucleated RBC Nucleated RBC % (auto) PT 145.3 H D INR 11.9 H* D APTT 66.7 H* Anion Gap Estim Creat Clear Calc Estimated GFR POC Glucose Random Glucose Lactic Acid Calcium Magnesium Total Bilirubin AST ALT Alkaline Phosphatase Total Creatine Kinase B-Natriuretic Peptide Total Protein Albumin Lipase Urine Color Yellow Urine Appearance Clear Urine pH 5.5 Ur Specific [place] <= 1.005 Urine Protein Trace Urine Glucose (UA) Negative Urine Ketones Negative Urine Blood Large (3+) H Urine Nitrite Negative Ur Leukocyte Esterase Negative Urine RBC 0-2 Urine WBC 0-5 Ur Squamous Epith Cells 0-2 Urine Bacteria None Seen Hyaline Casts 0-2 Ethyl Alcohol COVID-19 (VICTOR M) COVID-19 Clin Com Influenza Type A (PRATIMA) Influenza Type B (PRATIMA) Influenza A & B Note Blood Type O Positive Antibody Screen NEGATIVE Imaging Radiologist's Impressions: Impressions Abdomen/Pelvis CT 05/17/23 15:57 IMPRESSION: 1. Limited study due to respiratory motion. 2. Diffuse groundglass opacities consistent with pneumonia bilaterally. 3. Cardiomegaly. 4. Hepatosplenomegaly. 5. Chronic compression deformities of L2 and T12 Cervical Spine CT 05/17/23 15:57 IMPRESSION: CT head: No acute intracranial finding. Status post left parietal craniotomy and mild volume loss CT cervical spine: No cervical spine fracture or traumatic malalignment identified. Degenerative changes in muscle spasm with straightening of cervical lordosis Chest CT 05/17/23 15:57 IMPRESSION: 1. Limited study due to respiratory motion. 2. Diffuse groundglass opacities consistent with pneumonia bilaterally. 3. Cardiomegaly. 4. Hepatosplenomegaly. 5. Chronic compression deformities of L2 and T12 Head CT 05/17/23 15:57 IMPRESSION: CT head: No acute intracranial finding. Status post left parietal craniotomy and mild volume loss CT cervical spine: No cervical spine fracture or traumatic malalignment identified. Degenerative changes in muscle spasm with straightening of cervical lordosis Assessment and Plan (1) Sepsis: Status: Acute (2) Rhabdomyolysis: Status: Acute (3) EDGAR (acute kidney injury): Status: Acute (4) Supratherapeutic INR: Status: Acute (5) Fall: Status: Acute (6) ETOH abuse: Status: Acute (7) Acute hyponatremia: Status: Acute Plan 63-year-old male with pertinent history of aortic valve replacement on Coumadin, alcohol use disorder with alcoholic liver disease, history of cocaine use disorder, congestive heart failure with reduced ejection history of intracranial hemorrhage, CAD status post CABG, mood disorder admitted for further management of acute metabolic encephalopathy with bilateral pneumonia, hypoxia, alcohol withdrawal, and supratherapeutic INR at high risk of bleeding. #Acute toxic metabolic encephalopathy- likely multifactorial in setting of etoh withdrawal, medication overdose (was observed taking 4 tablets in ED thought to be ambien- unintentional OD, pt encephalopathic in ED), infection -Head CT negative for acute intracranial abn -check ammonia level -Hold all sedating medications -Hold on phenobarbital at this time due given ambien ingestion. Monitor on ciwa closely -monitor mentation -sitter consult -Keep NPO for now until mentation in proves due to aspiration risk -admit to med/tele #Acute alcohol withdrawal -per niece report pt has been trying to cut back on etoh use and drinks alot -monitor on ciwa -hold phenobarb at this time due to above -IV thiamine, folic acid -addiction med consult #Bilateral pneumonia with acute hypoxemic respiratory failure -leukocytosis, no other SIRS criteria on admission. Hypotension likely related to medication misuse, not infection -IV ceftriaxone and doxycycline (initiated 05/17) -strep pneumo antigen, Legionella antigen, sputum culture pending -continue supplemental O2 to maintain oximetry >92% -follow CBC, cultures #Hypotension -likely related to medication misuse in the setting of acute encephalopathy, not infection -hold antihypertensives at this time # supratherapeutic INR -likely related to medication misuse secondary to encephalopathy -hold Coumadin -INR 11.9, monitor daily -no reversal indicated given mechanical mitral valve -head CT negative for any intracranial hemorrhage -sitter consult for strict bed rest at this time to prevent falls # acute rhabdomyolysis -resuscitated with IVF in ED -follow CK # acute kidney injury-acute rhabdomyolysis -Creat 2.47, baseline around 1 -received IVF in ED -avoid nephrotoxins -monitor I&O -follow renal function, lytes # acute on chronic hyponatremia -likely in the setting of chronic alcohol use/beer potomania -Received IV NS x 3L in ED -fluid restrictions as diet advances -repeat BMP now, follow -consider nephrology consult #Acute transaminitis -r/t etoh use -trend lft's # general weakness/falls -PT eval #Chronic normocytic anemia -h/h baseline, above transfusion threshold -monitor closely given INR #s/p mitral valve replacement -hold coumadin, resume once inr therapeutic #HTN/CHF -hold metoprolol, entresto given hypotension -no acute decompensation of congestive heart failure, hold on additional IVF # CAD s/p CABG -hold Plavix, metoprolol -continue statin # mood disorder -continue home medications # tobacco use disorder -cessation counseling once mentation improves -nicotine patch for NRT DVT prophylaxis- SCPs Full code Pt Roxy julian, who is HCP requests call prior to discharge. Does not feel patient is safe to return home Patient requires inpatient stay at least 2 midnights for management of acute toxic metabolic encephalopathy related to alcohol withdrawal, medication misuse, infection with associated bilateral pneumonia and hypoxia requiring close monitoring of mentation, monitoring and management of for alcohol withdrawal, IV antibiotics, and supplemental O2 Quality Stroke Does the patient have a stroke diagnosis?: No VTE Prior VTE?: No VTE Risk Level:: Medical - moderate - high VTE Device Contraindication: N/A - Device Ordered VTE Drug Contraindication: Treatment Not Indicated
--- NOTE | 2023-05-17 18:51 | PHA.MEDREC ---
Pharmacy Consult ? Medication Reconciliation Pharmacy has completed the medication reconciliation. Patient used med boxes all [facility] pharmacy. Confirm with pharmacy the Plavix is still med box even though was discontinued when patient was in the hospital in March. Patient just report yes to everything even it asked open stalin question. Patient sister only know that patient is on a blood thinner but no clue on the dose. Informed ANA Reynoso that dose cannot be confirmed at this time, and she will F/U as warfarin will be held for a few days. Nancy Reyes, AlexandruD
--- NOTE | 2023-05-17 19:23 | PC.NURSE ---
pt appears confused trying to get oob and pulling at medical devices/NC. 1:1 sitter at bedside. pt repositioned. vss. afebrile. iv abx infusing. pt urinated on floor unable to obtain sample.
[2023-05-17] MEDS: 0.9 % Sodium Chloride 1,000 ML 100 ML IVCONT (20:01)
[2023-05-17 20:39] LABS: Anion Gap 15 (12-20); Blood Urea Nitrogen 25 mg/dL (9-16); Calcium 7.9 mg/dL (8.4-10.2); Carbon Dioxide 17 mmol/L (22-29); Chloride 104 mmol/L (96-108); Creatinine Clr Calc Pharmacy 53.5; Estimated Glomerular Filt Rate 46; Glucose Random 108 mg/dL (60-115); Potassium 4.6 mmol/L (3.3-5.1); Sodium 131 mmol/L (135-145)
[2023-05-17 20:41] LABS: Ammonia 23 umol/L (13-55); Prothrombin Time 192.3 SEC (11.1-13.3)
--- NOTE | 2023-05-17 21:14 | PC.NURSE ---
pt had incontinence changed new bed linen provided. warm blanket given. pt in [place] reports he is comfortable. 2114 critical inr 15.[address] Diamond notified.
[2023-05-17 21:16] LABS: INTERNATIONAL NORM RATIO 15.8 (0.9-1.1)
[2023-05-17] MEDS: OLANZapine 5 MG TABLET PO (21:41)
[2023-05-17] MEDS: Magnesium Oxide 400 MG TABLET 800 MG PO (21:41)
[2023-05-17] MEDS: busPIRone HCl 10 MG TABLET PO (21:41)
--- NOTE | 2023-05-17 21:47 | PC.NURSE ---
pt tolerated po meds well with water.
[2023-05-17] MEDS: Phytonadione (Vit K1) Oral 10 MG/ML AMPUL 2.5 MG PO (21:59)
--- NOTE | 2023-05-17 22:06 | PC.NURSE ---
pt tolerated po vitamin K well.
[2023-05-17] MEDS: 0.9 % Sodium Chloride Flush 3 ML SYRINGE IVFLUSH (23:31)
--- NOTE | 2023-05-18 | ECG_ITS ---
Test Reason : chest pain Blood Pressure : / mmHG Vent. Rate : 097 BPM Atrial Rate : 097 BPM P-R Int : 136 ms QRS Dur : 186 ms QT Int : 428 ms P-R-T Axes : 013 072 -39 degrees QTc Int : 543 ms Atrial-sensed ventricular-paced rhythm Abnormal ECG When compared with ECG of 17-MAY-2023 15:36, Vent. rate has increased BY 17 BPM Referred By: Fredo Diamond Electronically Signed By:Roosevelt Woodruff
[2023-05-18 03:54] VITALS: BP 140/62; PULSE 89; RESP 18; TEMP 37.3; O2SAT 90
[2023-05-18] MEDS: 0.9 % Sodium Chloride 1,000 ML 80 ML IVCONT (05:33)
[2023-05-18] MEDS: Doxycycline Hyclate 100 MG in 0.9 % Sodium Chloride 250 ML 166.67 MG IV ×2 (05:33→17:35)
[2023-05-18 06:24] LABS: MANUAL DIFF FLAG NO
[2023-05-18 06:30] LABS: Basophils Percent Auto 0.2 % (0-2); Eosinophils Absolute Auto 0.1 X10*3/uL (0.0-0.4); Eosinophils Percent Auto 0.9 % (0-4); Hematocrit 27.6 % (42.0-52.0); Hemoglobin 9.7 g/dl (14.0-18.0); Imm Gran Abs Auto 0.07 X10*3/uL (0.00-0.03); Imm Gran Pct Auto 0.6 % (0.0-0.4); Lymphocytes Absolute Auto 0.6 X10*3/uL (1.2-4.9); Lymphocytes Percent Auto 5.2 % (20-40); Mean Corpuscular HGB Conc 35.1 g/dl (31.0-36.0); Mean Corpuscular Volume 79.5 fL (80.0-98.0); Mean Platelet Volume 9.6 fL (9.4-12.4); Monocytes Absolute Auto 1.2 X10*3/uL (0.1-1.2); Neutrophils Absolute Auto 9.1 x10*3/uL (2.0-8.3); Neutrophils Percent Auto 82.1 % (45-73); Platelet Count 199 X10*3/uL (160-400); Red Blood Count 3.47 X10*6/uL (4.60-5.80); Red Cell Distribution Width 16.2 % (11.0-16.0); White Blood Count 11.1 X10*3/uL (4.8-10.8)
[2023-05-18 06:48] LABS: Alanine Aminotransferase 404 U/L (0-40); Albumin Level 3.4 g/dL (3.5-5.0); Alkaline Phosphatase 89 U/L (39-117); Anion Gap 13 (12-20); Aspartate Amino Transferase 309 U/L (5-37); Bilirubin Direct 0.8 mg/dL (0.0-0.5); Bilirubin Total 1.2 mg/dL (0.0-1.0); Blood Urea Nitrogen 14 mg/dL (9-16); Calcium 8.3 mg/dL (8.4-10.2); Carbon Dioxide 19 mmol/L (22-29); Chloride 110 mmol/L (96-108); Creatinine Clr Calc Pharmacy 98.7; Estimated Glomerular Filt Rate > 60; Glucose Random 102 mg/dL (60-115); Potassium 4.4 mmol/L (3.3-5.1); Sodium 138 mmol/L (135-145); Total Protein 6.4 g/dL (6.5-8.0)
[2023-05-18 07:02] LABS: Glucose, Whole Blood 116 mg/dL (60-115)
[2023-05-18 07:17] VITALS: BP 107/58; PULSE 92; RESP 20; TEMP 37.2; O2SAT 92
[2023-05-18 07:19] LABS: Prothrombin Time 119.8 SEC (11.1-13.3)
[2023-05-18 07:43] LABS: INTERNATIONAL NORM RATIO 9.8 (0.9-1.1)
[2023-05-18] MEDS: Fluticasone/Vilanterol 200/25 BLST.W.DEV 1 PUFF INHALE (08:13)
[2023-05-18 08:15] VITALS: PULSE 82; RESP 17; O2SAT 92
[2023-05-18] MEDS: ondansetron HCL 4 MG/2 ML VIAL IVPUSH (08:27)
[2023-05-18] MEDS: Acetaminophen 325 MG TABLET 650 MG PO ×2 (08:28→16:10)
[2023-05-18] MEDS: Atorvastatin Calcium 20 MG TABLET PO (08:29)
[2023-05-18] MEDS: Lidocaine 4 % Patch ADH..PATCH 1 PATCH TRANSDERMA (08:29)
[2023-05-18] MEDS: busPIRone HCl 10 MG TABLET PO ×3 (08:29→20:30)
--- NOTE | 2023-05-18 08:41 | MHC.CM.PN ---
Patient is documented to be confused and disoriented even to self; CM spoke with Sister/HCP/SHYANNE @ [phone]. Patient lives alone in an apartment with the assistance of a [employer]. Home/resume [employer] VS Recovery Team intervention r/t ETOH VS STR is the tentative plan and CM has initiated and will follow for dc planning. PCP is Dr. Nathalie Hsu.
[2023-05-18 08:49] LABS: Iron 8 mcg/dL (45-160); Percent Iron Saturation 4 % (15-50); Total Iron Binding Capacity 211 mcg/dL (228-428); Unsaturated Iron Binding 203 ug/dL
[2023-05-18] MEDS: Dextrose 5 % 1,000 ML 80 ML IVCONT ×2 (08:49→22:50)
[2023-05-18] MEDS: 0.9 % Sodium Chloride Flush 3 ML SYRINGE IVFLUSH ×2 (08:50→16:11)
[2023-05-18] MEDS: Magnesium Oxide 400 MG TABLET 800 MG PO ×2 (08:51→20:29)
[2023-05-18] MEDS: Thiamine HCL 100 MG in 0.9 % Sodium Chloride 100 ML 202 MG IV (08:51)
[2023-05-18 09:10] LABS: Ferritin 282 ng/mL (20-250); Procalcitonin 18.09 ng/mL
[2023-05-18] MEDS: Folic Acid 1 MG in 0.9 % Sodium Chloride 50 ML 100.4 MG IV (10:38)
[2023-05-18 10:39] LABS: Sodium 137 mmol/L (135-145)
[2023-05-18 11:17] VITALS: BP 113/57; PULSE 118; RESP 20; TEMP 36.3; O2SAT 92
[2023-05-18] MEDS: PHENobarbitaL sodium 130 MG/ML IM ONCE 170 MG IM (11:22)
--- NOTE | 2023-05-18 12:43 | PM.CNNEP ---
History of Present Illness Reason for Consult Consult date: 05/18/23 Chief Complaint Chief complaint: encephalopathy, pneumonia History of Present Illness Narrative: 63-year-old male with alcohol use disorder with alcoholic liver disease, history of cocaine use disorder, congestive heart failure with reduced ejection fraction, history of intracranial hemorrhage, CAD status post CABG, mood disorder presented to the ED due to lethargy and weakness. At presentation, the patient is confused disoriented even to self and cannot obtain history. According to niece, he drinks alot of alcohol and has been trying to cut back and she reports he has been confused. She is concerned about him taking his medications correctly. When she arrived to his apartment, he was not walking well, was lethargic, and they brought him in for further evaluation. On arrival, patient hypotensive to 57/53, responded well to IV fluids and albumin with blood pressure on admission 110/54. He was also noted to be hypoxic to 83% on room air and has been maintaining oximetry 92-94% on 4 L supplemental O2. There is a leukocytosis of 13.4. H/H 9.1/26.0%, consistent with baseline. Creatinine 2.47, baseline 1. BUN 34. Sodium 126, baseline around 130-131. CO2 16. AST 368, ALT 464. Total CK 3655. Troponin 8.1. BNP 111. Urinalysis unremarkable except for 3+ blood, ethyl alcohol level below detectable limits. Negative for COVID-19, influenza. PT 145.3, INR 11.9. PTT [address] negative for any acute intracranial abnormality including hemorrhage. CT cervical spine negative for any acute osseous abnormality. CT abdomen/pelvis shows hepatosplenomegaly, negative for any acute intra-abdominal pathology. Chest CT shows diffuse ground-glass opacities consistent with pneumonia bilaterally as well as chronic compression deformities of L2 and T12. In the Ed, given 3L IV NS, IV albumin x2, 1g ctx, doxycycline, IV thiamine. He was admitted for further management. Nephrology is being consulted to assist in his clinical care during his current hospital stay. Review of Systems Review of Systems Yes Unobtainable due to mental condition PMFSH Past Medical History Medical History Intracranial hemorrhage Coronary artery disease Chronic systolic CHF (congestive heart failure) Hypertension Short-segment Harrell's esophagus Pacemaker Skull fracture Alcoholic liver disease Cocaine abuse Alcohol abuse Surgical History Surgical History S/P CABG (coronary artery bypass graft) H/O aortic valve replacement History of esophagogastroduodenoscopy (EGD) Aortic valve replaced Social History Social History Household Members: None Housing: Apartment Do you presently have visiting nurse or other home services: Yes Alcohol intake: current Alcohol intake frequency: 3 or more drinks per day Alcohol type: beer Comment: patient refuses alarms , and fall prevention measures Patient Tobacco Use Status: Current everyday Tobacco user Tobacco use type: Cigarette Cigarette Packs Per Day: 1 Cigarettes Per Day: 20.0 Second Hand Smoke Exposure: No Substance Use Type: Marijuana Advance Directives Date on File: 10/11/21 service: No Current occupational status: unemployed Meds Allergies Allergy/AdvReac Type Severity Reaction Status Date / Time lorazepam [From ATIVAN] AdvReac Severe OPPOSITE Verified 04/01/23 15:19 EFFECT PSYCOTIC EFECTS Active Medications: Current Medications Acetaminophen (Acetaminophen 325 Mg Tablet) 650 mg PO Q6H PRN PRN Reason: Pain, Mild (Pain Scale 1-3) Last Admin: 05/18/23 08:28 Dose: 650 mg Albuterol Sulfate (Albuterol Sulfate 90 Mcg 8 Gm Inhaler) 2 puff INHALE Q4H PRN PRN Reason: Respiratory Distress Atorvastatin Calcium (Atorvastatin Calcium 20 Mg Tablet) 20 mg PO DAILY [facility] Last Admin: 05/18/23 08:29 Dose: 20 mg Buspirone HCl (Buspirone Hcl 10 Mg Tablet) 10 mg PO TID [facility] Last Admin: 05/18/23 08:29 Dose: 10 mg Fluticasone/Vilanterol (Fluticasone/Vilanterol 200/25 Blst.W.Dev) 1 puff INHALE RDAILY [facility] Last Admin: 05/18/23 08:13 Dose: 1 puff Ceftriaxone Sodium 1 gm/ (Sodium Chloride) 50 mls @ 100 mls/hr IV Q24H [facility] Last Infusion: 05/17/23 19:00 Dose: Infused Doxycycline Hyclate 100 mg/ (Sodium Chloride) 250 mls @ 166.67 mls/hr IV Q12H [facility] Last Infusion: 05/18/23 08:51 Dose: Infused Thiamine HCl 100 mg/ Sodium (Chloride) 101 mls @ 202 mls/hr IV DAILY [facility] Last Infusion: 05/18/23 10:35 Dose: Infused Folic Acid 1 mg/ Sodium (Chloride) 50.2 mls @ 100.4 mls/hr IV DAILY [facility] Last Infusion: 05/18/23 11:18 Dose: Infused Dextrose (D5w) 1,000 mls @ 80 mls/hr IVCONT .[id number] [facility] Last Admin: 05/18/23 08:49 Dose: 80 mls/hr Lidocaine (Lidocaine 4 % Patch Adh..Patch) 1 patch TRANSDERMA DAILY [facility] Last Admin: 05/18/23 08:29 Dose: 1 patch Magnesium Oxide (Magnesium Oxide 400 Mg Tablet) 800 mg PO BID [facility] Last Admin: 05/18/23 08:51 Dose: 800 mg Melatonin (Melatonin 3 Mg Tablet) 6 mg PO BEDTIME PRN PRN Reason: Insomnia Nicotine (Nicotine 21 Mg Patch.Td24) 21 mg TRANSDERMA DAILY [facility] Last Admin: 05/18/23 10:33 Dose: Not Given Olanzapine (Olanzapine 5 Mg Tablet) 5 mg PO BEDTIME [facility] Last Admin: 05/17/23 21:41 Dose: 5 mg Omeprazole (Omeprazole 20 Mg Capsule.Dr) 20 mg PO BID@0630,1630 [facility] Last Admin: 05/18/23 05:31 Dose: Not Given Ondansetron HCl (Ondansetron Hcl 4 Mg/2 Ml Vial) 4 mg IVPUSH Q8H PRN PRN Reason: Nausea and Vomiting Last Admin: 05/18/23 08:27 Dose: 4 mg Pharmacy Consult (Consult Rx Etoh Phenob Im/Po) 1 each MISCELLANE ONCE PRN; Protocol PRN Reason: Consult order Phenobarbital (Phenobarbital 15 Mg Tablet) 45 mg PO BID [facility] Stop: 05/20/23 21:01 Phenobarbital (Phenobarbital 30 Mg Tablet) 30 mg PO BID [facility] Stop: 05/22/23 21:01 Phenobarbital (Phenobarbital 30 Mg Tablet) 30 mg PO DAILY [facility] Stop: 05/24/23 09:01 Phenobarbital Sodium (Phenobarbital Sodium 130 Mg/Ml Vial Im Q3hx2) 127 mg IM Q3H [facility] Stop: 05/18/23 17:16 Senna (Sennosides 8.6 Mg Tablet) 17.2 mg PO BEDTIME PRN PRN Reason: Constipation Sodium Chloride (0.9 % Sodium Chloride Flush 3 Ml Syringe) 3 ml IVFLUSH QSHIFT [facility] Last Admin: 05/18/23 08:50 Dose: 3 ml Home Medications Medication Instructions Recorded Confirmed Last Taken Type melatonin 5 mg tablet 2 tab PO BEDTIME PRN insomnia 10/18/20 05/17/23 Unknown History atorvastatin 20 mg tablet 20 mg PO DAILY 11/18/20 05/17/23 04/02/23 09:00 History blood pressure test kit-large #1 ea 11/18/20 02/09/23 Unknown History folic acid 1 mg tablet 1 mg PO DAILY 11/18/20 05/17/23 04/02/23 09:00 History lidocaine 5 % topical patch 1 patch topical DAILY 11/18/20 05/17/23 04/02/23 09:00 History magnesium oxide 400 mg (241.3 mg 800 mg PO BID 11/18/20 05/17/23 04/02/23 09:00 History magnesium) tablet metoprolol succinate 50 mg 50 mg PO DAILY 11/18/20 05/17/23 04/02/23 09:00 History tablet,extended release 24 hr pantoprazole 40 mg tablet,delayed 40 mg PO BID 11/18/20 05/17/23 04/02/23 09:00 History release thiamine HCl (vitamin B1) 100 mg 100 mg PO DAILY 11/18/20 05/17/23 04/02/23 09:00 History tablet zolpidem 10 mg tablet 10 mg PO BEDTIME PRN Insomnia 12/02/20 05/17/23 10/10/21 History olanzapine 5 mg tablet 1 tab PO BEDTIME 10/10/21 05/17/23 Unknown History acetaminophen 500 mg tablet 500 mg PO BID PRN Mild Pain (Scale 05/11/22 05/17/23 Unknown History Score 1-4) albuterol sulfate 90 mcg/actuation 2 puff inhalation Q4H PRN 05/11/22 05/17/23 Unknown History aerosol inhaler (Ventolin HFA) Respiratory Distress buspirone 10 mg tablet 10 mg PO TID 05/11/22 05/17/23 04/02/23 09:00 History warfarin 5 mg tablet 5 mg PO DAILY 05/11/22 04/02/23 04/02/23 09:00 History sacubitril 24 mg-valsartan 26 mg 1 tab PO BID 06/12/22 05/17/23 04/02/23 09:00 History tablet (Entresto) hydroxyzine pamoate 50 mg capsule 50 mg PO BEDTIME PRN insomnia 11/17/22 05/17/23 Unknown History budesonide-formoterol HFA 160 2 puff inhalation BID 02/09/23 05/17/23 04/02/23 09:00 History mcg-4.5 mcg/actuation aerosol inhaler (Symbicort) clopidogrel 75 mg tablet 75 mg PO QAM 05/17/23 05/17/23 Unknown History Physical Exam Vital Signs: Last Vital Signs Temp 97.3 F 05/18/23 11:17 Pulse 118 H 05/18/23 11:17 Resp 20 05/18/23 11:17 BP 113/57 L 05/18/23 11:17 Pulse Ox 92 05/18/23 11:17 O2 Del Method Nasal Cannula 05/18/23 11:17 O2 Flow Rate 3 05/18/23 11:17 BMI result Body Mass Index 26.6 Const General: comfortable and no acute distress HEENT Head: Yes normocephalic Mouth: Normal oral and palatal mucosa present Eyes EOM: EOMs intact bilaterally Neck Neck: Yes supple Resp Auscultation: clear to auscultation bilaterally Cardio Jugular venous distension: no JVD Rate: regular rate GI Palpation (GI): Soft to palpation Auscultation: normal bowel sounds General: Yes no CVA tenderness Back/Spine/Pelvis Back: no CVA tenderness Skin General skin exam: no rashes or lesions noted Neuro General: moves all extremities Extrem General: Yes no pedal edema Results Lab Results 05/18/23 06:19 05/18/23 10:21 Lab results: Chemistry 05/17/23 05/17/23 05/18/23 15:05 20:15 06:19 Sodium 126 L 131 L 138 Potassium 4.8 4.6 4.4 Carbon Dioxide 16 L 17 L 19 L BUN 34 H 25 H 14 Creatinine 2.47 H 1.55 H 0.84 Calcium 7.7 L D 7.9 L 8.3 L 05/18/23 10:21 Sodium 137 Potassium Carbon Dioxide BUN Creatinine Calcium Hematology 05/17/23 05/18/23 15:05 06:19 WBC 13.4 H 11.1 H Hgb 9.1 L 9.7 L Plt Count 199 D 199 Urinalysis 05/17/23 16:41 Urine Color Yellow Urine Appearance Clear Urine pH 5.5 Ur Specific [place] <= 1.005 Urine Protein Trace Urine Glucose (UA) Negative Urine Ketones Negative Urine Blood Large (3+) H Urine Nitrite Negative Ur Leukocyte Esterase Negative Urine RBC 0-2 Urine WBC 0-5 Ur Squamous Epith Cells 0-2 Hyaline Casts 0-2 Assessment and Plan (1) EDGAR (acute kidney injury): Status: Acute Plan Mr. Caballero had EDGAR due to compromise in renal perfusion which has been resolved. He was hyponatremic but due to resuscitation his serum sodium has gone up. He is hemodynamically stable now. Given he has history of hyponatremia he had been already started on intravenous dextrose. Will watch his serum sodium closely to avoid central pontine myelinolysis. Further management is pending involving data Procedures Date of Service Date of Service: 05/18/23
--- NOTE | 2023-05-18 12:49 | HO.PM.IMPN ---
Subjective Subjective Date of Service: 05/18/23 Interval History: anxious, confused c/o cough, dyspnea disoriented This history was taken in [place]an from the patient. Review of Systems Review of Systems: Yes all other systems are reviewed and are negative Physical Exam Vital Signs: Vital Signs: Last Vital Signs Temp 97.3 F 05/18/23 11:17 Pulse 118 H 05/18/23 11:17 Resp 20 05/18/23 11:17 BP 113/57 L 05/18/23 11:17 Pulse Ox 92 05/18/23 11:17 O2 Del Method Nasal Cannula 05/18/23 11:17 O2 Flow Rate 3 05/18/23 11:17 BMI result Body Mass Index 26.6 Gen: anxious HEENT: sclera anicteric, moist mucus membranes Neck: supple Lungs: clear to auscultation bilaterally Heart: tachycardic, mechanical S2 Abd: soft, non-tender, non-distended Ext: no edema Skin: warm/well-perfused Neuro: alert and oriented only to self, tremulous, no asterixis Psych: impaired insight Objective Data Active Medications Acetaminophen (Acetaminophen 325 Mg Tablet) 650 mg PO Q6H PRN PRN Reason: Pain, Mild (Pain Scale 1-3) Last Admin: 05/18/23 08:28 Dose: 650 mg Documented By: HORACIO Albuterol Sulfate (Albuterol Sulfate 90 Mcg 8 Gm Inhaler) 2 puff INHALE Q4H PRN PRN Reason: Respiratory Distress Atorvastatin Calcium (Atorvastatin Calcium 20 Mg Tablet) 20 mg PO DAILY [facility] Last Admin: 05/18/23 08:29 Dose: 20 mg Documented By: HORACIO Buspirone HCl (Buspirone Hcl 10 Mg Tablet) 10 mg PO TID [facility] Last Admin: 05/18/23 08:29 Dose: 10 mg Documented By: HORACIO Fluticasone/Vilanterol (Fluticasone/Vilanterol 200/25 Blst.W.Dev) 1 puff INHALE RDAILY [facility] Last Admin: 05/18/23 08:13 Dose: 1 puff Documented By: DIEGO Ceftriaxone Sodium 1 gm/ (Sodium Chloride) 50 mls @ 100 mls/hr IV Q24H [facility] Last Infusion: 05/17/23 19:00 Dose: Infused Documented By: DWIGHT Doxycycline Hyclate 100 mg/ (Sodium Chloride) 250 mls @ 166.67 mls/hr IV Q12H [facility] Last Infusion: 05/18/23 08:51 Dose: Infused Documented By: HORACIO Thiamine HCl 100 mg/ Sodium (Chloride) 101 mls @ 202 mls/hr IV DAILY [facility] Last Infusion: 05/18/23 10:35 Dose: Infused Documented By: HORACIO Folic Acid 1 mg/ Sodium (Chloride) 50.2 mls @ 100.4 mls/hr IV DAILY [facility] Last Infusion: 05/18/23 11:18 Dose: Infused Documented By: HORACIO Dextrose (D5w) 1,000 mls @ 80 mls/hr IVCONT .[id number] [facility] Last Admin: 05/18/23 08:49 Dose: 80 mls/hr Documented By: HORACIO Lidocaine (Lidocaine 4 % Patch Adh..Patch) 1 patch TRANSDERMA DAILY [facility] Last Admin: 05/18/23 08:29 Dose: 1 patch Documented By: HORACIO Magnesium Oxide (Magnesium Oxide 400 Mg Tablet) 800 mg PO BID [facility] Last Admin: 05/18/23 08:51 Dose: 800 mg Documented By: HORACIO Melatonin (Melatonin 3 Mg Tablet) 6 mg PO BEDTIME PRN PRN Reason: Insomnia Nicotine (Nicotine 21 Mg Patch.Td24) 21 mg TRANSDERMA DAILY [facility] Last Admin: 05/18/23 10:33 Dose: Not Given Documented By: HORACIO Non-Admin Reason: Patient Refused Olanzapine (Olanzapine 5 Mg Tablet) 5 mg PO BEDTIME [facility] Last Admin: 05/17/23 21:41 Dose: 5 mg Documented By: DWIGHT Omeprazole (Omeprazole 20 Mg Capsule.) 20 mg PO BID@0630,1630 [facility] Last Admin: 05/18/23 05:31 Dose: Not Given Documented By: RONALD Non-Admin Reason: NPO Ondansetron HCl (Ondansetron Hcl 4 Mg/2 Ml Vial) 4 mg IVPUSH Q8H PRN PRN Reason: Nausea and Vomiting Last Admin: 05/18/23 08:27 Dose: 4 mg Documented By: HORACIO Pharmacy Consult (Consult Rx Etoh Phenob Im/Po) 1 each MISCELLANE ONCE PRN; Protocol PRN Reason: Consult order Phenobarbital (Phenobarbital 15 Mg Tablet) 45 mg PO BID [facility] Stop: 05/20/23 21:01 Phenobarbital (Phenobarbital 30 Mg Tablet) 30 mg PO BID [facility] Stop: 05/22/23 21:01 Phenobarbital (Phenobarbital 30 Mg Tablet) 30 mg PO DAILY [facility] Stop: 05/24/23 09:01 Phenobarbital Sodium (Phenobarbital Sodium 130 Mg/Ml Vial Im Q3hx2) 127 mg IM Q3H [facility] Stop: 05/18/23 17:16 Senna (Sennosides 8.6 Mg Tablet) 17.2 mg PO BEDTIME PRN PRN Reason: Constipation Sodium Chloride (0.9 % Sodium Chloride Flush 3 Ml Syringe) 3 ml IVFLUSH QSHIFT [facility] Last Admin: 05/18/23 08:50 Dose: 3 ml Documented By: HORACIO Labs 05/18/23 06:19 05/18/23 10:21 Labs: Laboratory Results - last 24 hr 05/17/23 05/17/23 05/17/23 14:38 15:05 15:08 MCV 81.0 MCH 28.3 MCHC 35.0 RDW 16.1 H Plt Count 199 D MPV 10.2 Immature Gran % (Auto) 1.2 H Neut % (Auto) 85.8 H Lymph % (Auto) 4.8 L [place] % (Auto) 7.9 Eos % (Auto) 0.2 Baso % (Auto) 0.1 Lymph # (Auto) 0.6 L [place] # (Auto) 1.1 Eos # (Auto) 0.0 Baso # (Auto) 0.0 Abs Immat Gran (auto) 0.16 H Absolute Neuts (auto) 11.5 H Absolute Nucleated RBC 0.000 Nucleated RBC % (auto) 0.0 PT INR APTT Anion Gap 16 Estim Creat Clear Calc 33.5 Estimated GFR 27 POC Glucose 131 H Random Glucose 113 Lactic Acid 2.0 Calcium 7.7 L D Magnesium 1.6 Iron TIBC % Saturation Unsat Iron Binding Ferritin Total Bilirubin 1.1 H Direct Bilirubin AST 368 H ALT 454 H Alkaline Phosphatase 91 Ammonia Total Creatine Kinase 3655 H Troponin I High Sens 8.1 D B-Natriuretic Peptide 111 H Total Protein 5.9 L Albumin 3.0 L Lipase 5 L Procalcitonin Urine Color Urine Appearance Urine pH Ur Specific [place] Urine Protein Urine Glucose (UA) Urine Ketones Urine Blood Urine Nitrite Ur Leukocyte Esterase Urine RBC Urine WBC Ur Squamous Epith Cells Urine Bacteria Hyaline Casts Ethyl Alcohol < 10 COVID-19 (VICTOR M) Negative COVID-19 Clin Com See Note Influenza Type A (PRATIMA) Negative Influenza Type B (PRATIMA) Negative Influenza A & B Note See Note Blood Type Antibody Screen 05/17/23 05/17/23 05/17/23 15:43 16:41 20:15 MCV MCH MCHC RDW Plt Count MPV Immature Gran % (Auto) Neut % (Auto) Lymph % (Auto) [place] % (Auto) Eos % (Auto) Baso % (Auto) Lymph # (Auto) [place] # (Auto) Eos # (Auto) Baso # (Auto) Abs Immat Gran (auto) Absolute Neuts (auto) Absolute Nucleated RBC Nucleated RBC % (auto) PT 145.3 H D 192.3 H D INR 11.9 H* D 15.8 H* D APTT 66.7 H* Anion Gap 15 Estim Creat Clear Calc 53.5 Estimated GFR 46 POC Glucose Random Glucose 108 Lactic Acid Calcium 7.9 L Magnesium Iron TIBC % Saturation Unsat Iron Binding Ferritin Total Bilirubin Direct Bilirubin AST ALT Alkaline Phosphatase Ammonia 23 Total Creatine Kinase Troponin I High Sens B-Natriuretic Peptide Total Protein Albumin Lipase Procalcitonin Urine Color Yellow Urine Appearance Clear Urine pH 5.5 Ur Specific [place] <= 1.005 Urine Protein Trace Urine Glucose (UA) Negative Urine Ketones Negative Urine Blood Large (3+) H Urine Nitrite Negative Ur Leukocyte Esterase Negative Urine RBC 0-2 Urine WBC 0-5 Ur Squamous Epith Cells 0-2 Urine Bacteria None Seen Hyaline Casts 0-2 Ethyl Alcohol COVID-19 ([facility]CTOR M) COVID-19 Clin Com Influenza Type A (PRATIMA) Influenza Type B (PRATIMA) Influenza A & B Note Blood Type O Positive Antibody Screen NEGATIVE 05/18/23 05/18/23 06:19 06:58 MCV 79.5 L MCH 28.0 MCHC 35.1 RDW 16.2 H Plt Count 199 MPV 9.6 Immature Gran % (Auto) 0.6 H Neut % (Auto) 82.1 H Lymph % (Auto) 5.2 L [place] % (Auto) 11.0 Eos % (Auto) 0.9 Baso % (Auto) 0.2 Lymph # (Auto) 0.6 L [place] # (Auto) 1.2 Eos # (Auto) 0.1 Baso # (Auto) 0.0 Abs Immat Gran (auto) 0.07 H Absolute Neuts (auto) 9.1 H Absolute Nucleated RBC 0.000 Nucleated RBC % (auto) 0.0 PT 119.8 H D INR 9.8 H* D APTT Anion Gap 13 Estim Creat Clear Calc 98.7 Estimated GFR > 60 POC Glucose 116 H Random Glucose 102 Lactic Acid Calcium 8.3 L Magnesium Iron 8 L TIBC 211 L % Saturation 4 L Unsat Iron Binding 203 Ferritin 282 H Total Bilirubin 1.2 H Direct Bilirubin 0.8 H AST 309 H ALT 404 H Alkaline Phosphatase 89 Ammonia Total Creatine Kinase 2386 H Troponin I High Sens B-Natriuretic Peptide Total Protein 6.4 L Albumin 3.4 L Lipase Procalcitonin 18.09 Urine Color Urine Appearance Urine pH Ur Specific [place] Urine Protein Urine Glucose (UA) Urine Ketones Urine Blood Urine Nitrite Ur Leukocyte Esterase Urine RBC Urine WBC Ur Squamous Epith Cells Urine Bacteria Hyaline Casts Ethyl Alcohol COVID-19 (VICTOR M) COVID-19 Clin Com Influenza Type A (PRATIMA) Influenza Type B (PRATIMA) Influenza A & B Note Blood Type Antibody Screen Assessment and Plan (1) Sepsis: Status: Acute Plan d2 63yo M with hx aortic valve replacement anticoagulated on warfarin, AUD with liver disease, hx cocaine abuse disorder, HFrEF s/p AICD, hx intracranial hemorrhage, CAD s/p CABG, mood disorder Came in lethargic, confused, and weak Found to be hypotensive, which resolved with colloid + crystalloid resuscitation Hypoxic with ground-glass infiltrate, negative for Covid-19 or influenza Also with EDGAR, rhabdomyolysis, and hyponatremia INR supratherapeutic May have taken 4 tablets of Ambien in the ED Acute hypoxic resp failure due to pneumonia - ceftriaxone + doxycycline 05/17- - BCx, pneumococcal + Legionella urine antigen tests, trend PCT, respiratory pathogen panel - wean O2 as tolerated AUD with high risk withdrawal - Start low-dose phenobarbital taper given history of possible Ambien ingestion in ED with careful attention to neurologic status. Thiamine, folate. Addiction Medicine consultation. Toxic-metabolic encephalopathy - Due to EtOH withdrawal, PNA, hypothermia Hyponatremia - Corrected too quickly on NS, will switch to D5W and check Na q4h Hypotension - Suspected due to medication misuse rather than sepsis. Resolved with crystalloid + colloid resuscitation. Rhabdomyolysis - Fluid resuscitation, recheck CPK daily until <1000 Supratherapeutic INR Mechanical aortic valve - Not bleeding. High risk for clot. Will hold off on vit K for now and monitor INR daily. EDGAR, prerenal - Resolved with fluid resuscitation. EtOH liver disease - Monitor LFTs Chronic anemia - Due to iron deficiency + chronic disease. Monitor H+H. Chronic HFrEF - Held metoprolol + Entresto due to hypotension. CAD s/p CABG - Held clopidogrel due to supratherapeutic INR + metoprolol due to hypotension Mood disorder - Olanzapine Polysubstance abuse - Urine toxicology screen. Addiction Medicine consult. VTE ppx - SCDs Dispo - Will likely need STR In my clinical judgment, the patient requires continued inpatient hospitalization for the following reasons: hypoxia, metabolic derangement Total time managing care of this patient today: 60 minutes. Quality Stroke Does the patient have a stroke diagnosis?: No VTE Prior VTE?: No VTE Risk Level:: Medical - moderate - high VTE Device Contraindication: N/A - Device Ordered VTE Drug Contraindication: Treatment Not Indicated
[2023-05-18 14:03] LABS: Sodium 138 mmol/L (135-145)
[2023-05-18] MEDS: PHENobarbitaL sodium 130 MG/ML VIAL IM Q3Hx2 127 MG IM ×2 (14:04→17:21)
[2023-05-18 15:48] LABS: Adenovirus PCR Not Detected (Not Detect.); Bordetella parapertussis PCR Not Detected (Not Detect.); Bordetella pertussis PCR Not Detected (Not Detect.); Chlamydia pneumoniae PCR Not Detected (Not Detect.); Coronavirus 229E PCR Not Detected (Not Detect.); Coronavirus HKU1 PCR Not Detected (Not Detect.); Coronavirus NL63 PCR Not Detected (Not Detect.); Coronavirus OC43 PCR Not Detected (Not Detect.); Human metapneumovirus PCR Not Detected (Not Detect.); Influenza A PCR Not Detected (Not Detect.); Influenza B PCR Not Detected (Not Detect.); Mycoplasma pneumoniae PCR Not Detected (Not Detect.); Parainfluenza 1 PCR Not Detected (Not Detect.); Parainfluenza 2 PCR Not Detected (Not Detect.); Parainfluenza 3 PCR Not Detected (Not Detect.); Parainfluenza 4 PCR Not Detected (Not Detect.); RSV PCR Not Detected (Not Detect.); Rhino/Enterovirus PCR Not Detected (Not Detect.)
[2023-05-18 15:58] LABS: SARS-CoV-2 PCR Not Detected (Not Detect.)
[2023-05-18 16:00] VITALS: BP 102/55; PULSE 100; RESP 16; TEMP 37.1; O2SAT 87
[2023-05-18] MEDS: Omeprazole 20 MG CAPSULE.DR PO (16:11)
[2023-05-18] MEDS: cefTRIAXone sodium 1 GM in 0.9 % Sodium Chloride 50 ML IV (17:41)
[2023-05-18 18:41] LABS: Sodium 138 mmol/L (135-145)
[2023-05-18 19:47] LABS: Troponin-I High Sensitivity 4.8 ng/L (<3.5-35.0)
[2023-05-18 20:00] VITALS: BP 129/60; PULSE 94; RESP 20; TEMP 36.4; O2SAT 90
[2023-05-18] MEDS: OLANZapine 5 MG TABLET PO (20:30)
[2023-05-18] MEDS: Melatonin 3 MG TABLET 6 MG PO (20:41)
[2023-05-18 22:49] LABS: Sodium 137 mmol/L (135-145)
[2023-05-19] VITALS (10 sets, daily range): BP systolic 107–139; BP diastolic 59–70; PULSE 58–103; RESP 18–24; TEMP 36.1–37.5; O2SAT 87–95
--- NOTE | 2023-05-19 | ECG_ITS ---
Test Reason : chest pain Blood Pressure : / mmHG Vent. Rate : 099 BPM Atrial Rate : 099 BPM P-R Int : 140 ms QRS Dur : 182 ms QT Int : 418 ms P-R-T Axes : 000 133 208 degrees QTc Int : 536 ms Atrial-sensed ventricular-paced rhythm Abnormal ECG When compared with ECG of 18-MAY-2023 19:34, Vent. rate has increased BY 2 BPM Referred By: Fredo Diamond Electronically Signed By:Roosevelt Woodruff
--- NOTE | 2023-05-19 00:31 | PC.NURSE ---
Addendum entered by Annita Luo RN 05/19/23 02:02: EKG obtained, results forwarded to Dr. Lagos. Original Note: Pt c/o chest pain. On tele/ V-paced, HR 102, 4L NC 92-93%, BP 137/67, R 19 even, unlabored, afebrile. Dr. Lagos Notified.
[2023-05-19] MEDS: Acetaminophen 325 MG TABLET 650 MG PO ×2 (01:30→12:42)
[2023-05-19] MEDS: Zolpidem Tartrate 5 MG TABLET PO (01:53)
[2023-05-19 02:29] LABS: Troponin-I High Sensitivity < 2.7 ng/L (<3.5-35.0)
[2023-05-19] MEDS: Doxycycline Hyclate 100 MG in 0.9 % Sodium Chloride 250 ML 166.67 MG IV ×2 (05:33→17:38)
[2023-05-19] MEDS: Omeprazole 20 MG CAPSULE.DR PO ×2 (05:35→16:54)
[2023-05-19 07:27] LABS: Hematocrit 25.7 % (42.0-52.0); Hemoglobin 8.8 g/dl (14.0-18.0); Mean Corpuscular HGB Conc 34.2 g/dl (31.0-36.0); Mean Corpuscular Volume 81.8 fL (80.0-98.0); Mean Platelet Volume 10.3 fL (9.4-12.4); Platelet Count 185 X10*3/uL (160-400); Red Blood Count 3.14 X10*6/uL (4.60-5.80); Red Cell Distribution Width 16.9 % (11.0-16.0); White Blood Count 11.5 X10*3/uL (4.8-10.8)
[2023-05-19 07:34] LABS: Prothrombin Time 49.2 SEC (11.1-13.3)
[2023-05-19] MEDS: 0.9 % Sodium Chloride 1,000 ML 50 ML IVCONT (07:45)
[2023-05-19] MEDS: Fluticasone/Vilanterol 200/25 BLST.W.DEV 1 PUFF INHALE (07:50)
[2023-05-19 07:54] LABS: Alanine Aminotransferase 348 U/L (0-40); Albumin Level 3.2 g/dL (3.5-5.0); Alkaline Phosphatase 122 U/L (39-117); Anion Gap 13 (12-20); Aspartate Amino Transferase 196 U/L (5-37); Bilirubin Total 1.3 mg/dL (0.0-1.0); Blood Urea Nitrogen 7 mg/dL (9-16); Calcium 8.5 mg/dL (8.4-10.2); Carbon Dioxide 20 mmol/L (22-29); Chloride 106 mmol/L (96-108); Creatinine Clr Calc Pharmacy 113.6; Estimated Glomerular Filt Rate > 60; Glucose Random 134 mg/dL (60-115); Potassium 4.4 mmol/L (3.3-5.1); Sodium 135 mmol/L (135-145); Total Protein 6.6 g/dL (6.5-8.0)
[2023-05-19 08:01] LABS: Magnesium 1.3 mg/dL (1.6-2.6)
[2023-05-19 08:20] LABS: Folate 14.1 ng/mL (> or = 4.0); Vitamin B12 602 pg/mL (200-900)
[2023-05-19 08:31] LABS: Amphetamine Screen Urine Not Detected (Not Detect); Barbiturates, Urine POSITIVE (Not Detect); Benzodiazepines Screen Urine Not Detected (Not Detect); Cannabinoid Screen Urine Not Detected (Not Detect); Cocaine Screen Urine Not Detected (Not Detect); Fentanyl, urine Not Detected (Not Detect); Opiate Screen Urine Not Detected (Not Detect); Phencyclidine Screen Urine Not Detected (Not Detect)
[2023-05-19] MEDS: Thiamine HCL 100 MG in 0.9 % Sodium Chloride 100 ML 202 MG IV (08:58)
[2023-05-19] MEDS: busPIRone HCl 10 MG TABLET PO ×3 (08:59→21:13)
[2023-05-19] MEDS: Magnesium Sulfate/H2O 2 GM/50 ML PIGGYBACK IV (08:59)
[2023-05-19] MEDS: PHENobarbitaL 15 MG TABLET 45 MG PO ×2 (08:59→21:13)
[2023-05-19] MEDS: Atorvastatin Calcium 20 MG TABLET PO (08:59)
[2023-05-19] MEDS: Magnesium Oxide 400 MG TABLET 800 MG PO ×2 (08:59→21:13)
[2023-05-19] MEDS: Folic Acid 1 MG in 0.9 % Sodium Chloride 50 ML 100.4 MG IV (08:59)
[2023-05-19] MEDS: Metoprolol Succinate ER 50 MG TAB.ER.24H PO (08:59)
[2023-05-19] MEDS: 0.9 % Sodium Chloride Flush 3 ML SYRINGE IVFLUSH (08:59)
[2023-05-19] MEDS: Lidocaine 4 % Patch ADH..PATCH 1 PATCH TRANSDERMA (09:00)
--- NOTE | 2023-05-19 10:25 | P.PNIM_ITS ---
Subjective Subjective Date of Service: 05/19/23 Interval History: This history was taken in Georgian from the patient. Wants to go home, denies any complaints other than anxiety. Mg low. Review of Systems Review of Systems: Yes all other systems are reviewed and are negative Physical Exam 2 Vital Signs: Vital Signs: Last Vital Signs Temp 97.0 F 05/19/23 07:08 Pulse 93 05/19/23 07:53 Resp 18 05/19/23 07:53 BP 139/70 05/19/23 07:08 Pulse Ox 95 05/19/23 07:08 O2 Del Method Nasal Cannula 05/19/23 07:08 O2 Flow Rate 5 05/19/23 07:08 BMI result Body Mass Index 26.6 Gen: anxious HEENT: sclera anicteric, moist mucus membranes Neck: supple Lungs: clear to auscultation bilaterally Heart: regular, mechanical S2 Abd: soft, non-tender, non-distended Ext: no edema Skin: warm/well-perfused Neuro: alert and oriented to self/place, no tremor or asterixis Psych: impaired insight Objective Data Active Medications Acetaminophen (Acetaminophen 325 Mg Tablet) 650 mg PO Q6H PRN PRN Reason: Pain, Mild (Pain Scale 1-3) Last Admin: 05/19/23 01:30 Dose: 650 mg Documented By: ABDOUL Albuterol Sulfate (Albuterol Sulfate 90 Mcg 8 Gm Inhaler) 2 puff INHALE Q4H PRN PRN Reason: Respiratory Distress Atorvastatin Calcium (Atorvastatin Calcium 20 Mg Tablet) 20 mg PO DAILY [facility] Last Admin: 05/19/23 08:59 Dose: 20 mg Documented By: JACINTO Buspirone HCl (Buspirone Hcl 10 Mg Tablet) 10 mg PO TID [facility] Last Admin: 05/19/23 08:59 Dose: 10 mg Documented By: JACINTO Fluticasone/Vilanterol (Fluticasone/Vilanterol 200/25 Blst.W.Dev) 1 puff INHALE RDAILY [facility] Last Admin: 05/19/23 07:50 Dose: 1 puff Documented By: BOUCHRA Ceftriaxone Sodium 1 gm/ (Sodium Chloride) 50 mls @ 100 mls/hr IV Q24H [facility] Last Infusion: 05/18/23 18:12 Dose: Infused Documented By: HORACIO Doxycycline Hyclate 100 mg/ (Sodium Chloride) 250 mls @ 166.67 mls/hr IV Q12H [facility] Last Infusion: 05/19/23 07:03 Dose: Infused Documented By: JACINTO Thiamine HCl 100 mg/ Sodium (Chloride) 101 mls @ 202 mls/hr IV DAILY [facility] Last Infusion: 05/19/23 09:28 Dose: Infused Documented By: JACINTO Folic Acid 1 mg/ Sodium (Chloride) 50.2 mls @ 100.4 mls/hr IV DAILY [facility] Last Infusion: 05/19/23 09:29 Dose: Infused Documented By: JACINTO Lidocaine (Lidocaine 4 % Patch Adh..Patch) 1 patch TRANSDERMA DAILY [facility] Last Admin: 05/19/23 09:00 Dose: 1 patch Documented By: JACINTO Magnesium Oxide (Magnesium Oxide 400 Mg Tablet) 800 mg PO BID [facility] Last Admin: 05/19/23 08:59 Dose: 800 mg Documented By: JACINTO Melatonin (Melatonin 3 Mg Tablet) 6 mg PO BEDTIME PRN PRN Reason: Insomnia Last Admin: 05/18/23 20:41 Dose: 6 mg Documented By: ABDOUL Metoprolol Succinate (Metoprolol Succinate Er 50 Mg Tab.Er.24h) 50 mg PO DAILY [facility]; Protocol Last Admin: 05/19/23 08:59 Dose: 50 mg Documented By: JACINTO Nicotine (Nicotine 21 Mg Patch.Td24) 21 mg TRANSDERMA DAILY [facility] Last Admin: 05/19/23 10:00 Dose: Not Given Documented By: JACINTO Non-Admin Reason: Patient Refused Olanzapine (Olanzapine 5 Mg Tablet) 5 mg PO BEDTIME [facility] Last Admin: 05/18/23 20:30 Dose: 5 mg Documented By: ABDOUL Omeprazole (Omeprazole 20 Mg Capsule.Dr) 20 mg PO BID@0630,1630 [facility] Last Admin: 05/19/23 05:35 Dose: 20 mg Documented By: DELMIS Ondansetron HCl (Ondansetron Hcl 4 Mg/2 Ml Vial) 4 mg IVPUSH Q8H PRN PRN Reason: Nausea and Vomiting Last Admin: 05/18/23 08:27 Dose: 4 mg Documented By: HORACIO Pharmacy Consult (Consult Rx Etoh Phenob Im/Po) 1 each MISCELLANE ONCE PRN; Protocol PRN Reason: Consult order Phenobarbital (Phenobarbital 15 Mg Tablet) 45 mg PO BID [facility] Stop: 05/20/23 21:01 Last Admin: 05/19/23 08:59 Dose: 45 mg Documented By: JACINTO Phenobarbital (Phenobarbital 30 Mg Tablet) 30 mg PO BID [facility] Stop: 05/22/23 21:01 Phenobarbital (Phenobarbital 30 Mg Tablet) 30 mg PO DAILY [facility] Stop: 05/24/23 09:01 Senna (Sennosides 8.6 Mg Tablet) 17.2 mg PO BEDTIME PRN PRN Reason: Constipation Sodium Chloride (0.9 % Sodium Chloride Flush 3 Ml Syringe) 3 ml IVFLUSH QSHIFT [facility] Last Admin: 05/19/23 08:59 Dose: 3 ml Documented By: JACINTO Labs 05/19/23 06:52 05/19/23 06:52 Labs: Laboratory Results - last 24 hr 05/18/23 05/18/23 05/19/23 13:33 18:12 01:59 MCV MCH MCHC RDW Plt Count MPV Absolute Nucleated RBC Nucleated RBC % (auto) PT INR Anion Gap Estim Creat Clear Calc Estimated GFR Random Glucose Calcium Magnesium Total Bilirubin AST ALT Alkaline Phosphatase Total Creatine Kinase Troponin I High Sens 4.8 < 2.7 Total Protein Albumin Vitamin B12 Folate Urine Opiates Screen Urine Fentanyl Screen Ur Barbiturates Screen Ur Phencyclidine Scrn Ur Amphetamines Screen U Benzodiazepines Scrn Urine Cocaine Screen U Marijuana (THC) Screen Respiratory Panel Peterson See Note Adenovirus (Rapid PCR) Not Detected B.pert (TEM-PCR) Not Detected B.parapertussis DNA PCR Not Detected C. pneumoniae DNA (PCR) Not Detected Coronavirus OC43 (PCR) Not Detected Coronavirus HKU1 (PCR) Not Detected Coronavirus 229E (PCR) Not Detected Coronavirus NL63 (PCR) Not Detected Human Metapneumovir PCR Not Detected Influenza A (RT-PCR) Not Detected Influenza B (RT-PCR) Not Detected M. pneumoniae (PCR) Not Detected Parainfluenza 1 (PCR) Not Detected Parainfluenza 2 (PCR) Not Detected Parainfluenza 3 (PCR) Not Detected Parainfluenza 4 (PCR) Not Detected RSV (PCR) Not Detected Entero/Rhino (PCR) Not Detected SARS-CoV-2 RNA (RT-PCR) Not Detected 05/19/23 05/19/23 06:52 08:12 MCV 81.8 MCH 28.0 MCHC 34.2 RDW 16.9 H Plt Count 185 MPV 10.3 Absolute Nucleated RBC 0.000 Nucleated RBC % (auto) 0.0 PT 49.2 H D INR 4.0 H D Anion Gap 13 Estim Creat Clear Calc 113.6 Estimated GFR > 60 Random Glucose 134 H Calcium 8.5 Magnesium 1.3 L* Total Bilirubin 1.3 H AST 196 H ALT 348 H Alkaline Phosphatase 122 H Total Creatine Kinase 883 H Troponin I High Sens Total Protein 6.6 Albumin 3.2 L Vitamin B12 602 Folate 14.1 Urine Opiates Screen Not Detected Urine Fentanyl Screen Not Detected Ur Barbiturates Screen POSITIVE H Ur Phencyclidine Scrn Not Detected Ur Amphetamines Screen Not Detected U Benzodiazepines Scrn Not Detected Urine Cocaine Screen Not Detected U Marijuana (THC) Screen Not Detected Respiratory Panel [place] Adenovirus (Rapid PCR) B.pert (TEM-PCR) B.parapertussis DNA PCR C. pneumoniae DNA (PCR) Coronavirus OC43 (PCR) Coronavirus HKU1 (PCR) Coronavirus 229E (PCR) Coronavirus NL63 (PCR) Human Metapneumovir PCR Influenza A (RT-PCR) Influenza B (RT-PCR) M. pneumoniae (PCR) Parainfluenza 1 (PCR) Parainfluenza 2 (PCR) Parainfluenza 3 (PCR) Parainfluenza 4 (PCR) RSV (PCR) Entero/Rhino (PCR) SARS-CoV-2 RNA (RT-PCR) Microbiology Microbiology Results: Microbiology 05/17/23 15:08 Blood Culture - Preliminary Blood - Venous No growth after 24 hours. 05/17/23 15:08 Blood Culture - Preliminary Blood - Venous No growth after 24 hours. Assessment and Plan (1) Sepsis: Status: Acute Plan d3 63yo M with hx aortic valve replacement anticoagulated on warfarin, AUD with liver disease, hx cocaine abuse disorder, HFrEF s/p AICD, hx intracranial hemorrhage, CAD s/p CABG, mood disorder Came in lethargic, confused, and weak Found to be hypotensive, which resolved with colloid + crystalloid resuscitation Hypoxic with ground-glass infiltrate, negative for Covid-19 or influenza Also with EDGAR, rhabdomyolysis, and hyponatremia INR supratherapeutic May have taken 4 tablets of Ambien in the ED Acute hypoxic resp failure due to pneumonia - ceftriaxone + doxycycline 05/17- - BCx, pneumococcal + Legionella urine antigen tests, trend PCT, respiratory pathogen panel negative, check MRSA swab - wean O2 as tolerated AUD with high risk withdrawal - Started low-dose phenobarbital taper given history of possible Ambien ingestion in ED with careful attention to neurologic status. Thiamine, folate. Addiction Medicine consultation. Extra dose of phenobarbital now. Toxic-metabolic encephalopathy - Due to EtOH withdrawal, PNA; resolved. HypoMg - Replete; recheck level in AM. Hyponatremia - Corrected too quickly on NS so switched to D5W. Na stable; d/c D5W Hypotension - Suspected due to medication misuse rather than sepsis. Resolved with crystalloid + colloid resuscitation. Rhabdomyolysis - CPK <1000 now, d/c IV fluids Supratherapeutic INR Mechanical aortic valve - Not bleeding. High risk for clot so did not give vit K. Monitor INR daily until <3 then resume warfarin EDGAR, prerenal - Resolved with fluid resuscitation. EtOH liver disease - Monitor LFTs Chronic anemia - Due to iron deficiency + chronic disease. Monitor H+H. Chronic HFrEF - Held metoprolol + Entresto due to hypotension; resume metoprolol today CAD s/p CABG - Held clopidogrel due to supratherapeutic INR + metoprolol due to hypotension; resume metoprolol today Mood disorder - Olanzapine Polysubstance abuse - Addiction Medicine consult. Screen HBV/HCV/HIV jim given hx cocaine abuse [Utox negative this admission] VTE ppx - SCDs Dispo - Will likely need STR In my clinical judgment, the patient requires continued inpatient hospitalization for the following reasons: hypoxia, metabolic derangement Total time managing care of this patient today: 50 minutes. Quality Stroke Does the patient have a stroke diagnosis?: No VTE Prior VTE?: No VTE Risk Level:: Medical - moderate - high VTE Device Contraindication: N/A - Device Ordered VTE Drug Contraindication: Treatment Not Indicated
--- NOTE | 2023-05-19 10:41 | ECG_ITS ---
Test Reason : cp Blood Pressure : / mmHG Vent. Rate : 099 BPM Atrial Rate : 099 BPM P-R Int : 118 ms QRS Dur : 184 ms QT Int : 414 ms P-R-T Axes : -15 038 -35 degrees QTc Int : 531 ms Atrial-sensed ventricular-paced rhythm Abnormal ECG When compared with ECG of 19-MAY-2023 01:45, No significant change was found Referred By: Ravi Smith Electronically Signed By:Roosevelt Woodruff
[2023-05-19] MEDS: PHENobarbitaL sodium 130 MG/ML VIAL IM Q3Hx2 IM (11:04)
[2023-05-19 12:06] LABS: MRSA Nasal PCR NEGATIVE (Negative); SA Nasal PCR NEGATIVE (Negative)
[2023-05-19 14:28] LABS: Troponin-I High Sensitivity 4.5 ng/L (<3.5-35.0)
--- NOTE | 2023-05-19 16:05 | PC.NURSE ---
Pt complained f chest pain this AM. No worsening SOB. No palpitations. No pain radiating to left shoulder or jaw. Dr. Smith notified. EKG ordered and completed. Trops ordered and completed. Trops negative. EKG with no changes. Pt medicated with tylenol for pain.
[2023-05-19] MEDS: cefTRIAXone sodium 1 GM in 0.9 % Sodium Chloride 50 ML IV (16:54)
[2023-05-19] MEDS: OLANZapine 5 MG TABLET PO (21:13)
[2023-05-19] MEDS: Zolpidem Tartrate 5 MG TABLET 10 MG PO (21:23)
[2023-05-20] VITALS (8 sets, daily range): BP systolic 112–150; BP diastolic 57–77; PULSE 95–115; RESP 16–20; TEMP 36.4–37.3; O2SAT 88–94
[2023-05-20] MEDS: Acetaminophen 325 MG TABLET 650 MG PO ×2 (00:36→09:40)
[2023-05-20] MEDS: Doxycycline Hyclate 100 MG in 0.9 % Sodium Chloride 250 ML 166.67 MG IV ×2 (06:10→20:04)
[2023-05-20] MEDS: Omeprazole 20 MG CAPSULE.DR PO ×2 (06:10→18:16)
[2023-05-20] MEDS: 0.9 % Sodium Chloride Flush 3 ML SYRINGE IVFLUSH ×4 (06:14→20:11)
[2023-05-20 06:23] LABS: Hematocrit 26.2 % (42.0-52.0); Hemoglobin 8.8 g/dl (14.0-18.0); Mean Corpuscular HGB Conc 33.6 g/dl (31.0-36.0); Mean Corpuscular Hemoglobin 27.8 pg (27.0-33.0); Mean Corpuscular Volume 82.9 fL (80.0-98.0); Mean Platelet Volume 10.5 fL (9.4-12.4); Platelet Count 207 X10*3/uL (160-400); Red Blood Count 3.16 X10*6/uL (4.60-5.80); Red Cell Distribution Width 17.2 % (11.0-16.0); White Blood Count 11.4 X10*3/uL (4.8-10.8)
[2023-05-20 06:24] LABS: INTERNATIONAL NORM RATIO 1.9 (0.9-1.1); Prothrombin Time 23.2 SEC (11.1-13.3)
[2023-05-20 06:41] LABS: Alanine Aminotransferase 265 U/L (0-40); Albumin Level 3.4 g/dL (3.5-5.0); Alkaline Phosphatase 173 U/L (39-117); Anion Gap 11 (12-20); Aspartate Amino Transferase 96 U/L (5-37); Bilirubin Total 1.2 mg/dL (0.0-1.0); Blood Urea Nitrogen 9 mg/dL (9-16); Calcium 9.1 mg/dL (8.4-10.2); Carbon Dioxide 26 mmol/L (22-29); Chloride 104 mmol/L (96-108); Creatinine Clr Calc Pharmacy 112.1; Estimated Glomerular Filt Rate > 60; Glucose Random 99 mg/dL (60-115); Potassium 3.7 mmol/L (3.3-5.1); Sodium 137 mmol/L (135-145); Total Protein 6.9 g/dL (6.5-8.0)
[2023-05-20 06:48] LABS: Magnesium 1.4 mg/dL (1.6-2.6)
[2023-05-20 06:57] LABS: HBS Num1 0.27 mIU/mL (0-7.99); HBsAGNum1 0.37 S/CO (0.00-0.99); HIV AB/AG Nonreactive (Nonreactive); HIV Num 1 0.06 S/CO (0.00-0.99); Hepatitis B Core Antibody Nonreactive (Nonreactive); Hepatitis B Surface Antigen Negative (Negative); ~HepC Num1 0.16 S/CO (0.00-0.79); ~Hepatitis B Surface Antibody NONREACTIVE (Nonreactive); ~Hepatitis C Antibody Nonreactive (Nonreactive)
[2023-05-20 06:59] LABS: Procalcitonin 3.72 ng/mL
[2023-05-20] MEDS: Fluticasone/Vilanterol 200/25 BLST.W.DEV 1 PUFF INHALE (07:41)
[2023-05-20 07:44] LABS: OBS Int Ctl Valid YES
[2023-05-20 07:45] LABS: OBS1 NEGATIVE (NEGATIVE)
[2023-05-20] MEDS: Nicotine 21 MG PATCH.TD24 TRANSDERMA (08:15)
[2023-05-20] MEDS: PHENobarbitaL 15 MG TABLET 45 MG PO ×2 (08:16→20:00)
[2023-05-20] MEDS: Thiamine HCL 100 MG TABLET PO (08:16)
[2023-05-20] MEDS: Metoprolol Succinate ER 50 MG TAB.ER.24H PO (08:16)
[2023-05-20] MEDS: Folic Acid 1 MG TABLET PO (08:16)
[2023-05-20] MEDS: Magnesium Sulfate/H2O 2 GM/50 ML PIGGYBACK IV (08:17)
[2023-05-20] MEDS: Atorvastatin Calcium 20 MG TABLET PO (08:17)
[2023-05-20] MEDS: busPIRone HCl 10 MG TABLET PO ×3 (08:17→20:00)
[2023-05-20] MEDS: Magnesium Oxide 400 MG TABLET 800 MG PO ×2 (08:17→20:00)
[2023-05-20] MEDS: Lidocaine 4 % Patch ADH..PATCH 1 PATCH TRANSDERMA (08:17)
[2023-05-20] MEDS: Sacubitril/Valsartan 24/26 1 TAB TABLET PO ×2 (09:41→20:00)
[2023-05-20] MEDS: Enoxaparin Sodium 150 MG/ML SYRINGE 135 MG SUBCUT (09:41)
--- NOTE | 2023-05-20 12:27 | P.PNIM_ITS ---
Subjective Subjective Date of Service: 05/20/23 Interval History: short of breath and on 6L O2 less anxious denies GI bleeding This history was taken in Sami from the patient. Review of Systems Review of Systems: Yes all other systems are reviewed and are negative Physical Exam 2 Vital Signs: Vital Signs: Last Vital Signs Temp 98.9 F 05/20/23 11:04 Pulse 96 05/20/23 11:04 Resp 20 05/20/23 11:04 BP 120/57 L 05/20/23 11:04 Pulse Ox 93 05/20/23 11:04 O2 Del Method Humidified O2 05/20/23 11:04 O2 Flow Rate 6 05/20/23 11:04 BMI result Body Mass Index 26.6 Gen: NAD HEENT: sclera anicteric, moist mucus membranes Neck: supple Lungs: clear to auscultation bilaterally Heart: regular, mechanical S2 Abd: soft, non-tender, non-distended Ext: no edema Skin: warm/well-perfused Neuro: alert and oriented to self/place, no tremor or asterixis Psych: impaired insight Objective Data Active Medications Acetaminophen (Acetaminophen 325 Mg Tablet) 650 mg PO Q6H PRN PRN Reason: Pain, Mild (Pain Scale 1-3) Last Admin: 05/20/23 09:40 Dose: 650 mg Documented By: WINNIE Albuterol Sulfate (Albuterol Sulfate 90 Mcg 8 Gm Inhaler) 2 puff INHALE Q4H PRN PRN Reason: Respiratory Distress Atorvastatin Calcium (Atorvastatin Calcium 20 Mg Tablet) 20 mg PO DAILY [facility] Last Admin: 05/20/23 08:17 Dose: 20 mg Documented By: WINNIE Buspirone HCl (Buspirone Hcl 10 Mg Tablet) 10 mg PO TID [facility] Last Admin: 05/20/23 08:17 Dose: 10 mg Documented By: WINNIE Enoxaparin Sodium (Enoxaparin Sodium 150 Mg/Ml Syringe) 135 mg 1.5 mg/kg (135 mg) SUBCUT Q24H [facility] Last Admin: 05/20/23 09:41 Dose: 135 mg Documented By: WINNIE Fluticasone/Vilanterol (Fluticasone/Vilanterol 200/25 Blst.W.Dev) 1 puff INHALE RDAILY [facility] Last Admin: 05/20/23 07:41 Dose: 1 puff Documented By: BOUCHRA Folic Acid (Folic Acid 1 Mg Tablet) 1 mg PO DAILY [facility] Last Admin: 05/20/23 08:16 Dose: 1 mg Documented By: WINNIE Ceftriaxone Sodium 1 gm/ (Sodium Chloride) 50 mls @ 100 mls/hr IV Q24H [facility] Last Infusion: 05/19/23 17:43 Dose: Infused Documented By: MIGUEL Doxycycline Hyclate 100 mg/ (Sodium Chloride) 250 mls @ 166.67 mls/hr IV Q12H [facility] Last Infusion: 05/20/23 08:20 Dose: Infused Documented By: WINNIE Lidocaine (Lidocaine 4 % Patch Adh..Patch) 1 patch TRANSDERMA DAILY [facility] Last Admin: 05/20/23 08:17 Dose: 1 patch Documented By: WINNIE Magnesium Oxide (Magnesium Oxide 400 Mg Tablet) 800 mg PO BID [facility] Last Admin: 05/20/23 08:17 Dose: 800 mg Documented By: WINNIE Melatonin (Melatonin 3 Mg Tablet) 6 mg PO BEDTIME PRN PRN Reason: Insomnia Last Admin: 05/18/23 20:41 Dose: 6 mg Documented By: ABDOUL Metoprolol Succinate (Metoprolol Succinate Er 50 Mg Tab.Er.24h) 50 mg PO DAILY [facility]; Protocol Last Admin: 05/20/23 08:16 Dose: 50 mg Documented By: WINNIE Nicotine (Nicotine 21 Mg Patch.Td24) 21 mg TRANSDERMA DAILY [facility] Last Admin: 05/20/23 08:15 Dose: 21 mg Documented By: WINNIE Nicotine Polacrilex (Nicotine Polacrilex 2 Mg Gum) 2 mg BUCCAL Q1H PRN PRN Reason: Nicotine Cravings Olanzapine (Olanzapine 5 Mg Tablet) 5 mg PO BEDTIME [facility] Last Admin: 05/19/23 21:13 Dose: 5 mg Documented By: ZAKIYA Omeprazole (Omeprazole 20 Mg Capsule.) 20 mg PO BID@0630,1630 [facility] Last Admin: 05/20/23 06:10 Dose: 20 mg Documented By: ZAKIYA Ondansetron HCl (Ondansetron Hcl 4 Mg/2 Ml Vial) 4 mg IVPUSH Q8H PRN PRN Reason: Nausea and Vomiting Last Admin: 05/18/23 08:27 Dose: 4 mg Documented By: HORACIO Pharmacy Consult (Consult Rx Etoh Phenob Im/Po) 1 each MISCELLANE ONCE PRN; Protocol PRN Reason: Consult order Phenobarbital (Phenobarbital 15 Mg Tablet) 45 mg PO BID [facility] Stop: 05/20/23 21:01 Last Admin: 05/20/23 08:16 Dose: 45 mg Documented By: WINNIE Phenobarbital (Phenobarbital 30 Mg Tablet) 30 mg PO BID [facility] Stop: 05/22/23 21:01 Phenobarbital (Phenobarbital 30 Mg Tablet) 30 mg PO DAILY [facility] Stop: 05/24/23 09:01 Sacubitril/Valsartan (Sacubitril/Valsartan 1 Tab Tablet) 1 tab PO BID [facility]; Protocol Last Admin: 05/20/23 09:41 Dose: 1 tab Documented By: WINNIE Senna (Sennosides 8.6 Mg Tablet) 17.2 mg PO BEDTIME PRN PRN Reason: Constipation Sodium Chloride (0.9 % Sodium Chloride Flush 3 Ml Syringe) 3 ml IVFLUSH QSHIFT [facility] Last Admin: 05/20/23 08:21 Dose: 3 ml Documented By: WINNIE Thiamine HCl (Thiamine Hcl 100 Mg Tablet) 100 mg PO DAILY [facility] Last Admin: 05/20/23 08:16 Dose: 100 mg Documented By: WINNIE Warfarin Sodium (Warfarin Sodium 5 Mg Tablet) 5 mg PO DAILY@1800 [facility] Zolpidem Tartrate (Zolpidem Tartrate 5 Mg Tablet) 10 mg PO BEDTIME PRN PRN Reason: Insomnia Last Admin: 05/19/23 21:23 Dose: 10 mg Documented By: ZAKIYA Labs 05/20/23 06:01 05/20/23 06:01 Labs: Laboratory Results - last 24 hr 05/19/23 05/20/23 05/20/23 14:00 06:01 07:29 MCV 82.9 MCH 27.8 MCHC 33.6 RDW 17.2 H Plt Count 207 MPV 10.5 Absolute Nucleated RBC 0.000 Nucleated RBC % (auto) 0.0 PT 23.2 H D INR 1.9 H D Anion Gap 11 L Estim Creat Clear Calc 112.1 Estimated GFR > 60 Random Glucose 99 Calcium 9.1 D Magnesium 1.4 L* Total Bilirubin 1.2 H AST 96 H ALT 265 H Alkaline Phosphatase 173 H Troponin I High Sens 4.5 D Total Protein 6.9 Albumin 3.4 L Procalcitonin 3.72 Stool Occult Blood NEGATIVE Hep Bs Antigen Negative Hep Bs Antibody NONREACTIVE Hep B Core Total Ab Nonreactive Hepatitis C Ab (EIA) Nonreactive HIV 1&2 Ab/P24 Ag 4thGn Nonreactive Microbiology Microbiology Results: Microbiology 05/17/23 15:08 Blood Culture - Preliminary Blood - Venous No growth after 48 hours. 05/17/23 15:08 Blood Culture - Preliminary Blood - Venous No growth after 48 hours. Assessment and Plan (1) Sepsis: Status: Acute Plan d4 63yo M with hx aortic valve replacement anticoagulated on warfarin, AUD with liver disease, hx cocaine abuse disorder, HFrEF s/p AICD, hx intracranial hemorrhage, CAD s/p CABG, mood disorder Came in lethargic, confused, and weak Found to be hypotensive, which resolved with colloid + crystalloid resuscitation Hypoxic with ground-glass infiltrate, negative for Covid-19 or influenza Also with EDGAR, rhabdomyolysis, and hyponatremia INR supratherapeutic May have taken 4 tablets of Ambien in the ED Acute hypoxic resp failure due to pneumonia - ceftriaxone + doxycycline 05/17- - BCx negative @ 48h, pneumococcal + Legionella urine antigen tests pending, trend PCT, respiratory pathogen panel negative, MRSA swab negative - wean O2 as tolerated AUD with high risk withdrawal - Started low-dose phenobarbital taper given history of possible Ambien ingestion in ED with careful attention to neurologic status. Thiamine, folate. Addiction Medicine consultation pending. Extra dose of phenobarbital given 05/19. Toxic-metabolic encephalopathy - Due to EtOH withdrawal, PNA; resolving. HypoMg - Replete IV; recheck level in AM. Continue PO maintenance Hyponatremia - Resolved. Did get D5W due to overly quick correction. Hypotension - Suspected due to medication misuse rather than sepsis. Resolved with crystalloid + colloid resuscitation. Rhabdomyolysis - CPK <1000, now off IV fluids Supratherapeutic INR Mechanical aortic valve - Not bleeding. High risk for clot so did not give vit K. INR 1.9 today. Will give 1.5 mg/kg enoxaparin and resume warfarin. Check INR daily, goal 2-3. EDGAR, prerenal - Resolved with fluid resuscitation. EtOH liver disease - Monitor LFTs which are improving. Chronic anemia - Due to iron deficiency + chronic disease. Monitor H+H. FOBT negative. Chronic HFrEF - Held metoprolol + Entresto due to hypotension; resumed metoprolol yesterday + will resume Entresto today. CAD s/p CABG - Held clopidogrel due to supratherapeutic INR + metoprolol due to hypotension; resumed metoprolol. Mood disorder - Olanzapine Polysubstance abuse - Addiction Medicine consult. Screen HBV/HCV/HIV negative VTE ppx - SCDs Dispo - Will likely need STR/IPR In my clinical judgment, the patient requires continued inpatient hospitalization for the following reasons: hypoxia, metabolic derangement Total time managing care of this patient today: 35 minutes. Quality Stroke Does the patient have a stroke diagnosis?: No VTE Prior VTE?: No VTE Risk Level:: Medical - moderate - high VTE Device Contraindication: N/A - Device Ordered VTE Drug Contraindication: Treatment Not Indicated
--- NOTE | 2023-05-20 12:52 | HO.ADDICTCON ---
History of Present Illness Date of Service: 05/20/2023 Chief Complaint: encephalopathy, pneumonia Reason for Consult: AUD Sources of Information: patient interviewed and chart reviewed HPI Narrative: Patient is a 63 year old [place] speaking male with numerous chronic health issues, further complicated by long history of alcohol use disorder. Medically admitted following a fall at home. Seen today in room 461., he was awake, alert, pleasant and engaged in interview. He reports he has been drinking for many years, starting in his late teens Currently drinking 12 beers and 4-5 nips daily. Denies any history of treatment including ATS or outpatient Denies any history of withdrawal seizures. Reports problematic cocaine use for many years, however states he stopped 4-5 years ago. Denies any other substance use. Lives alone Reporting that he has friends and family that are very supportive to him Engaged with primary care at [facility] and stating that he wishes to be seen by their recovery support program Review of Systems Constitutional: Reports as per HPI Diagnostics Vital Signs (24Hr): Vital Signs - 24 hr 05/19/23 13:00 05/19/23 13:10 05/19/23 15:00 Temperature 98.0 F Pulse Rate 90 Respiratory Rate 20 Blood Pressure 119/63 Pulse Oximetry 87 L 93 95 Oxygen Delivery Method Aerosol Mask Large Bore Nasal Cannula Nasal Cannula Oxygen Flow Rate 5 6 6 05/19/23 20:00 05/20/23 00:00 05/20/23 04:00 Temperature 97.7 F 99.2 F 97.6 F Pulse Rate 95 115 H 95 Respiratory Rate 20 20 20 Blood Pressure 138/63 145/69 H 135/63 Pulse Oximetry 94 88 L 91 L Oxygen Delivery Method Nasal Cannula Nasal Cannula Nasal Cannula Oxygen Flow Rate 6 6 8 05/20/23 06:57 05/20/23 07:44 05/20/23 11:04 Temperature 97.7 F 98.9 F Pulse Rate 98 97 96 Respiratory Rate 20 20 20 Blood Pressure 150/77 H 120/57 L Pulse Oximetry 94 93 Oxygen Delivery Method Humidified O2 Humidified O2 Oxygen Flow Rate 8 6 BMI result Body Mass Index 26.6 Labs 05/20/23 06:01 05/20/23 06:01 Labs: Laboratory Results - last 48 hr 05/18/23 05/18/23 05/18/23 13:33 13:51 18:12 WBC RBC Hgb Hct MCV MCH MCHC RDW Plt Count MPV Absolute Nucleated RBC Nucleated RBC % (auto) PT INR Sodium 138 138 Potassium Chloride Carbon Dioxide Anion Gap BUN Creatinine Estim Creat Clear Calc Estimated GFR Random Glucose Calcium Magnesium Total Bilirubin AST ALT Alkaline Phosphatase Total Creatine Kinase Troponin I High Sens 4.8 Total Protein Albumin Vitamin B12 Folate Procalcitonin Nasal Screen MRSA (PCR) Nasal S. aureus Screen Nasal MRSA/S.aureus Interp Stool Occult Blood Urine Opiates Screen Urine Fentanyl Screen Ur Barbiturates Screen Ur Phencyclidine Scrn Ur Amphetamines Screen U Benzodiazepines Scrn Urine Cocaine Screen U Marijuana (THC) Screen Respiratory Panel Peterson See Note Adenovirus (Rapid PCR) Not Detected B.pert (TEM-PCR) Not Detected B.parapertussis DNA PCR Not Detected C. pneumoniae DNA (PCR) Not Detected Coronavirus OC43 (PCR) Not Detected Coronavirus HKU1 (PCR) Not Detected Coronavirus 229E (PCR) Not Detected Coronavirus NL63 (PCR) Not Detected Hep Bs Antigen Hep Bs Antibody Hep B Core Total Ab Hepatitis C Ab (EIA) HIV 1&2 Ab/P24 Ag 4thGn Human Metapneumovir PCR Not Detected Influenza A (RT-PCR) Not Detected Influenza B (RT-PCR) Not Detected M. pneumoniae (PCR) Not Detected Parainfluenza 1 (PCR) Not Detected Parainfluenza 2 (PCR) Not Detected Parainfluenza 3 (PCR) Not Detected Parainfluenza 4 (PCR) Not Detected RSV (PCR) Not Detected Entero/Rhino (PCR) Not Detected SARS-CoV-2 RNA (RT-PCR) Not Detected 05/18/23 05/19/23 05/19/23 22:28 01:59 06:52 WBC 11.5 H RBC 3.14 L Hgb 8.8 L Hct 25.7 L MCV 81.8 MCH 28.0 MCHC 34.2 RDW 16.9 H Plt Count 185 MPV 10.3 Absolute Nucleated RBC 0.000 Nucleated RBC % (auto) 0.0 PT 49.2 H D INR 4.0 H D Sodium 137 135 Potassium 4.4 Chloride 106 Carbon Dioxide 20 L Anion Gap 13 BUN 7 L Creatinine 0.73 Estim Creat Clear Calc 113.6 Estimated GFR > 60 Random Glucose 134 H Calcium 8.5 Magnesium 1.3 L* Total Bilirubin 1.3 H AST 196 H ALT 348 H Alkaline Phosphatase 122 H Total Creatine Kinase 883 H Troponin I High Sens < 2.7 Total Protein 6.6 Albumin 3.2 L Vitamin B12 602 Folate 14.1 Procalcitonin Nasal Screen MRSA (PCR) Nasal S. aureus Screen Nasal MRSA/S.aureus Interp Stool Occult Blood Urine Opiates Screen Urine Fentanyl Screen Ur Barbiturates Screen Ur Phencyclidine Scrn Ur Amphetamines Screen U Benzodiazepines Scrn Urine Cocaine Screen U Marijuana (THC) Screen Respiratory Panel Peterson Adenovirus (Rapid PCR) B.pert (TEM-PCR) B.parapertussis DNA PCR C. pneumoniae DNA (PCR) Coronavirus OC43 (PCR) Coronavirus HKU1 (PCR) Coronavirus 229E (PCR) Coronavirus NL63 (PCR) Hep Bs Antigen Hep Bs Antibody Hep B Core Total Ab Hepatitis C Ab (EIA) HIV 1&2 Ab/P24 Ag 4thGn Human Metapneumovir PCR Influenza A (RT-PCR) Influenza B (RT-PCR) M. pneumoniae (PCR) Parainfluenza 1 (PCR) Parainfluenza 2 (PCR) Parainfluenza 3 (PCR) Parainfluenza 4 (PCR) RSV (PCR) Entero/Rhino (PCR) SARS-CoV-2 RNA (RT-PCR) 05/19/23 05/19/23 05/20/23 08:12 14:00 06:01 WBC 11.4 H RBC 3.16 L Hgb 8.8 L Hct 26.2 L MCV 82.9 MCH 27.8 MCHC 33.6 RDW 17.2 H Plt Count 207 MPV 10.5 Absolute Nucleated RBC 0.000 Nucleated RBC % (auto) 0.0 PT 23.2 H D INR 1.9 H D Sodium 137 Potassium 3.7 Chloride 104 Carbon Dioxide 26 Anion Gap 11 L BUN 9 Creatinine 0.74 Estim Creat Clear Calc 112.1 Estimated GFR > 60 Random Glucose 99 Calcium 9.1 D Magnesium 1.4 L* Total Bilirubin 1.2 H AST 96 H ALT 265 H Alkaline Phosphatase 173 H Total Creatine Kinase Troponin I High Sens 4.5 D Total Protein 6.9 Albumin 3.4 L Vitamin B12 Folate Procalcitonin 3.72 Nasal Screen MRSA (PCR) NEGATIVE Nasal S. aureus Screen NEGATIVE Nasal MRSA/S.aureus Interp SEE NOTE Stool Occult Blood Urine Opiates Screen Not Detected Urine Fentanyl Screen Not Detected Ur Barbiturates Screen POSITIVE H Ur Phencyclidine Scrn Not Detected Ur Amphetamines Screen Not Detected U Benzodiazepines Scrn Not Detected Urine Cocaine Screen Not Detected U Marijuana (THC) Screen Not Detected Respiratory Panel Peterson Adenovirus (Rapid PCR) B.pert (TEM-PCR) B.parapertussis DNA PCR C. pneumoniae DNA (PCR) Coronavirus OC43 (PCR) Coronavirus HKU1 (PCR) Coronavirus 229E (PCR) Coronavirus NL63 (PCR) Hep Bs Antigen Negative Hep Bs Antibody NONREACTIVE Hep B Core Total Ab Nonreactive Hepatitis C Ab (EIA) Nonreactive HIV 1&2 Ab/P24 Ag 4thGn Nonreactive Human Metapneumovir PCR Influenza A (RT-PCR) Influenza B (RT-PCR) M. pneumoniae (PCR) Parainfluenza 1 (PCR) Parainfluenza 2 (PCR) Parainfluenza 3 (PCR) Parainfluenza 4 (PCR) RSV (PCR) Entero/Rhino (PCR) SARS-CoV-2 RNA (RT-PCR) 05/20/23 07:29 WBC RBC Hgb Hct MCV MCH MCHC RDW Plt Count MPV Absolute Nucleated RBC Nucleated RBC % (auto) PT INR Sodium Potassium Chloride Carbon Dioxide Anion Gap BUN Creatinine Estim Creat Clear Calc Estimated GFR Random Glucose Calcium Magnesium Total Bilirubin AST ALT Alkaline Phosphatase Total Creatine Kinase Troponin I High Sens Total Protein Albumin Vitamin B12 Folate Procalcitonin Nasal Screen MRSA (PCR) Nasal S. aureus Screen Nasal MRSA/S.aureus Interp Stool Occult Blood NEGATIVE Urine Opiates Screen Urine Fentanyl Screen Ur Barbiturates Screen Ur Phencyclidine Scrn Ur Amphetamines Screen U Benzodiazepines Scrn Urine Cocaine Screen U Marijuana (THC) Screen Respiratory Panel Peterson Adenovirus (Rapid PCR) B.pert (TEM-PCR) B.parapertussis DNA PCR C. pneumoniae DNA (PCR) Coronavirus OC43 (PCR) Coronavirus HKU1 (PCR) Coronavirus 229E (PCR) Coronavirus NL63 (PCR) Hep Bs Antigen Hep Bs Antibody Hep B Core Total Ab Hepatitis C Ab (EIA) HIV 1&2 Ab/P24 Ag 4thGn Human Metapneumovir PCR Influenza A (RT-PCR) Influenza B (RT-PCR) M. pneumoniae (PCR) Parainfluenza 1 (PCR) Parainfluenza 2 (PCR) Parainfluenza 3 (PCR) Parainfluenza 4 (PCR) RSV (PCR) Entero/Rhino (PCR) SARS-CoV-2 RNA (RT-PCR) Imaging Radiology Impressions: ITS Impressions Abdomen/Pelvis CT 05/17/23 15:57 IMPRESSION: 1. Limited study due to respiratory motion. 2. Diffuse groundglass opacities consistent with pneumonia bilaterally. 3. Cardiomegaly. 4. Hepatosplenomegaly. 5. Chronic compression deformities of L2 and T12 Cervical Spine CT 05/17/23 15:57 IMPRESSION: CT head: No acute intracranial finding. Status post left parietal craniotomy and mild volume loss CT cervical spine: No cervical spine fracture or traumatic malalignment identified. Degenerative changes in muscle spasm with straightening of cervical lordosis Chest CT 05/17/23 15:57 IMPRESSION: 1. Limited study due to respiratory motion. 2. Diffuse groundglass opacities consistent with pneumonia bilaterally. 3. Cardiomegaly. 4. Hepatosplenomegaly. 5. Chronic compression deformities of L2 and T12 Head CT 05/17/23 15:57 IMPRESSION: CT head: No acute intracranial finding. Status post left parietal craniotomy and mild volume loss CT cervical spine: No cervical spine fracture or traumatic malalignment identified. Degenerative changes in muscle spasm with straightening of cervical lordosis Mental Status Exam Mental Status Exam Level of Consciousness: Awake and Appropriate Patient Behavior: Appropriate and Talkative Mood Description: Relaxed Affect Description: Relaxed Speech Pattern: Clear Medications Medications Current Medications Acetaminophen (Acetaminophen 325 Mg Tablet) 650 mg PO Q6H PRN PRN Reason: Pain, Mild (Pain Scale 1-3) Last Admin: 05/20/23 09:40 Dose: 650 mg Albuterol Sulfate (Albuterol Sulfate 90 Mcg 8 Gm Inhaler) 2 puff INHALE Q4H PRN PRN Reason: Respiratory Distress Atorvastatin Calcium (Atorvastatin Calcium 20 Mg Tablet) 20 mg PO DAILY [facility] Last Admin: 05/20/23 08:17 Dose: 20 mg Buspirone HCl (Buspirone Hcl 10 Mg Tablet) 10 mg PO TID [facility] Last Admin: 05/20/23 08:17 Dose: 10 mg Enoxaparin Sodium (Enoxaparin Sodium 150 Mg/Ml Syringe) 135 mg 1.5 mg/kg (135 mg) SUBCUT Q24H [facility] Last Admin: 05/20/23 09:41 Dose: 135 mg Fluticasone/Vilanterol (Fluticasone/Vilanterol 200/25 Blst.W.Dev) 1 puff INHALE RDAILY [facility] Last Admin: 05/20/23 07:41 Dose: 1 puff Folic Acid (Folic Acid 1 Mg Tablet) 1 mg PO DAILY [facility] Last Admin: 05/20/23 08:16 Dose: 1 mg Ceftriaxone Sodium 1 gm/ (Sodium Chloride) 50 mls @ 100 mls/hr IV Q24H [facility] Last Infusion: 05/19/23 17:43 Dose: Infused Doxycycline Hyclate 100 mg/ (Sodium Chloride) 250 mls @ 166.67 mls/hr IV Q12H [facility] Last Infusion: 05/20/23 08:20 Dose: Infused Lidocaine (Lidocaine 4 % Patch Adh..Patch) 1 patch TRANSDERMA DAILY [facility] Last Admin: 05/20/23 08:17 Dose: 1 patch Magnesium Oxide (Magnesium Oxide 400 Mg Tablet) 800 mg PO BID [facility] Last Admin: 05/20/23 08:17 Dose: 800 mg Melatonin (Melatonin 3 Mg Tablet) 6 mg PO BEDTIME PRN PRN Reason: Insomnia Last Admin: 05/18/23 20:41 Dose: 6 mg Metoprolol Succinate (Metoprolol Succinate Er 50 Mg Tab.Er.24h) 50 mg PO DAILY [facility]; Protocol Last Admin: 05/20/23 08:16 Dose: 50 mg Nicotine (Nicotine 21 Mg Patch.Td24) 21 mg TRANSDERMA DAILY [facility] Last Admin: 05/20/23 08:15 Dose: 21 mg Nicotine Polacrilex (Nicotine Polacrilex 2 Mg Gum) 2 mg BUCCAL Q1H PRN PRN Reason: Nicotine Cravings Olanzapine (Olanzapine 5 Mg Tablet) 5 mg PO BEDTIME [facility] Last Admin: 05/19/23 21:13 Dose: 5 mg Omeprazole (Omeprazole 20 Mg Capsule.Dr) 20 mg PO BID@0630,1630 [facility] Last Admin: 05/20/23 06:10 Dose: 20 mg Ondansetron HCl (Ondansetron Hcl 4 Mg/2 Ml Vial) 4 mg IVPUSH Q8H PRN PRN Reason: Nausea and Vomiting Last Admin: 05/18/23 08:27 Dose: 4 mg Pharmacy Consult (Consult Rx Etoh Phenob Im/Po) 1 each MISCELLANE ONCE PRN; Protocol PRN Reason: Consult order Phenobarbital (Phenobarbital 15 Mg Tablet) 45 mg PO BID [facility] Stop: 05/20/23 21:01 Last Admin: 05/20/23 08:16 Dose: 45 mg Phenobarbital (Phenobarbital 30 Mg Tablet) 30 mg PO BID [facility] Stop: 05/22/23 21:01 Phenobarbital (Phenobarbital 30 Mg Tablet) 30 mg PO DAILY [facility] Stop: 05/24/23 09:01 Sacubitril/Valsartan (Sacubitril/Valsartan 1 Tab Tablet) 1 tab PO BID [facility]; Protocol Last Admin: 05/20/23 09:41 Dose: 1 tab Senna (Sennosides 8.6 Mg Tablet) 17.2 mg PO BEDTIME PRN PRN Reason: Constipation Sodium Chloride (0.9 % Sodium Chloride Flush 3 Ml Syringe) 3 ml IVFLUSH QSHIFT [facility] Last Admin: 05/20/23 08:21 Dose: 3 ml Thiamine HCl (Thiamine Hcl 100 Mg Tablet) 100 mg PO DAILY [facility] Last Admin: 05/20/23 08:16 Dose: 100 mg Warfarin Sodium (Warfarin Sodium 5 Mg Tablet) 5 mg PO DAILY@1800 [facility] Zolpidem Tartrate (Zolpidem Tartrate 5 Mg Tablet) 10 mg PO BEDTIME PRN PRN Reason: Insomnia Last Admin: 05/19/23 21:23 Dose: 10 mg Allergies Allergies Allergy/AdvReac Type Severity Reaction Status Date / Time lorazepam [From ATIVAN] AdvReac Severe OPPOSITE Verified 04/01/23 15:19 EFFECT PSYCOTIC EFECTS Assessment & Plan Assessment & Plan (1) Alcohol use disorder, severe, dependence: Status: Acute Code(s): F10.20 - Alcohol dependence, uncomplicated Assessment and Plan: may benefit from Naltrexone to either support abstaining from alcohol or at least decreasing amount he drinks daily will connect with recovery support at [facility] prior to discharge Total time managing care of this patient today ___45_ minutes. PMFSH Past Medical History Medical History Intracranial hemorrhage Coronary artery disease Chronic systolic CHF (congestive heart failure) Hypertension Short-segment Harrell's esophagus Pacemaker Skull fracture Alcoholic liver disease Cocaine abuse Alcohol abuse Surgical History Surgical History S/P CABG (coronary artery bypass graft) H/O aortic valve replacement History of esophagogastroduodenoscopy (EGD) Aortic valve replaced Social History Social History Household Members: None Housing: Apartment Do you presently have visiting nurse or other home services: Yes Alcohol intake: current Alcohol intake frequency: 3 or more drinks per day Alcohol type: beer Comment: patient refuses alarms , and fall prevention measures Patient Tobacco Use Status: Current everyday Tobacco user Tobacco use type: Cigarette Cigarette Packs Per Day: 1 Cigarettes Per Day: 20.0 Second Hand Smoke Exposure: No Substance Use Type: Marijuana Advance Directives Date on File: 10/11/21 service: No Current occupational status: unemployed
--- NOTE | 2023-05-20 14:44 | MHC.CM.PN ---
PT rec inpatient pulmonary rehab. This CM called pts sister/HCP Elizabeth to discuss, this CM left voicemail, CM will await return call.
[2023-05-20] MEDS: Warfarin Sodium 5 MG TABLET PO (18:16)
[2023-05-20] MEDS: cefTRIAXone sodium 1 GM in 0.9 % Sodium Chloride 50 ML IV (18:17)
[2023-05-20] MEDS: OLANZapine 5 MG TABLET PO (20:00)
[2023-05-20] MEDS: Zolpidem Tartrate 5 MG TABLET 10 MG PO (20:00)
[2023-05-21 02:29] LABS: Strep Pneumo Ag urine Not Detected (Not Detected)
[2023-05-21 03:39] VITALS: BP 122/60; PULSE 110; RESP 16; TEMP 36.8; O2SAT 92
[2023-05-21 03:52] LABS: Venous Blood Gas Refer to POC result
[2023-05-21 03:58] LABS: VBG Base Excess 6.8 mmol/L; VBG HCO3 29 mmol/L (22-26); VBG pCO2 36 mmHg; VBG pH 7.51 (7.32-7.43); VBG pO2 62 mmHg
--- NOTE | 2023-05-21 04:44 | PM.EVENT ---
Event Note Date of Service: 05/21/23 Event Note: Patient with increasing oxygen requirements overnight. Bilateral crackles upon evaluation. Obtained chest x-ray which was concerning for pulmonary edema. Ordered 40 mg IV Lasix. Obtaining BNP Time Spent With Patient Time: Total time managing care of this patient today ____ minutes.
[2023-05-21 05:39] LABS: Hematocrit 25.4 % (42.0-52.0); Hemoglobin 8.6 g/dl (14.0-18.0); Mean Corpuscular HGB Conc 33.9 g/dl (31.0-36.0); Mean Corpuscular Hemoglobin 28.1 pg (27.0-33.0); Platelet Count 189 X10*3/uL (160-400); Red Blood Count 3.06 X10*6/uL (4.60-5.80); Red Cell Distribution Width 17.2 % (11.0-16.0); White Blood Count 10.1 X10*3/uL (4.8-10.8)
[2023-05-21 05:45] LABS: INTERNATIONAL NORM RATIO 1.5 (0.9-1.1); Prothrombin Time 17.7 SEC (11.1-13.3)
[2023-05-21] MEDS: Furosemide 40 MG/4 ML VIAL IVPUSH ×3 (05:47→17:48)
[2023-05-21] MEDS: Doxycycline Hyclate 100 MG in 0.9 % Sodium Chloride 250 ML 166.67 MG IV (05:48)
[2023-05-21 05:59] LABS: Anion Gap 11 (12-20); Blood Urea Nitrogen 10 mg/dL (9-16); Calcium 8.8 mg/dL (8.4-10.2); Carbon Dioxide 28 mmol/L (22-29); Chloride 102 mmol/L (96-108); Creatinine Clr Calc Pharmacy 127.6; Estimated Glomerular Filt Rate > 60; Glucose Random 101 mg/dL (60-115); Magnesium 1.7 mg/dL (1.6-2.6); Potassium 3.9 mmol/L (3.3-5.1); Sodium 137 mmol/L (135-145)
[2023-05-21 06:05] LABS: B Type Natriuretic Peptide 1014 pg/mL (<100)
--- NOTE | 2023-05-21 07:00 | CA_ITS ---
Transthoracic Echocardiogram Patient (Last, First, Middle): Omid Caballero, Gender: Male Date of : 1960 Age: 63 Procedure Date: 05/21/2023 Procedure Type: Transthoracic Echocardiogram Location: [facility] [place] Height: 175.26 cm Weight: 85.28 kg BSA: 2.01 m2 Heart Rate: 103 bpm BP: 122 / 60 mmHg Facilities Maintenance Assistant: Referring MD: Ravi Smith MD Symptoms: CHF Study Quality: Adequate ECG Rhythm: Atrial Fibrillation Conclusions: - Normal left ventricular cavity size. There is severely increased left ventricular wall thickness. The left ventricular systolic function is borderline reduced. The visually estimated ejection fraction is between 45-50%. - Mildly increased right ventricular cavity size. There is normal right ventricular systolic function. - A bioprosthetic aortic valve is present. The prosthetic aortic valve appears to be functioning normally. There is no aortic valve stenosis. There is no aortic valve regurgitation. Findings Left Ventricle Normal left ventricular cavity size. There is severely increased left ventricular wall thickness. The left ventricular systolic function is borderline reduced. The visually estimated ejection fraction is between 45 50%. There is no evidence of regional wall motion abnormalities. There is paradoxical septal motion consistent with a left bundle branch block. Diastolic function is indeterminate on the basis of available data. Right Ventricle Mildly increased right ventricular cavity size. There is normal right ventricular systolic function. Atria Both atria are likely dilated. Aortic Valve A bioprosthetic aortic valve is present. The prosthetic aortic valve appears to be functioning normally. There is no aortic valve stenosis. There is no aortic valve regurgitation. Mitral Valve There is no mitral valve regurgitation. There is no mitral valve stenosis. Pulmonic Valve The pulmonic valve is normal. There is no pulmonic valve regurgitation. Tricuspid Valve Normal tricuspid valve structure. There is trace tricuspid valve regurgitation. Normal right atrial pressure. There is no evidence of pulmonary hypertension. Great Vessels There is mild dilatation of the sinuses of Valsalva measuring 4.00 cm. The visualized portions of the pulmonary artery and branches are normal. Venous The inferior vena cava is normal in size and collapses greater than 50% with inspiration. Pericardium/Pleural There is no evidence of pericardial effusion. Prior Study Comparison No prior study available for comparison. Measurements 2D Linear Measurements IVSd: 1.50 0.6-0.9/0.6-1.0 cm LVIDd: 4.74 3.9-5.3/4.2-5.9 cm LVIDd Index: 2.36 2.4-3.2/2.2-3.1 cm/m2 LVIDs: 3.20 2.0-3.6 cm LVPWd: 1.43 0.7-1.1 cm LA Diam: 4.00 2.7-3.8/3.0-4.0 cm LAIDs Index: 1.99 1.5-2.3 cm/m2 LV Mass: 358.51 67-162/88-224 g LV Mass Index: 178.36 43-95/49-115 g/m2 LVOT Diam: 2.00 3.0+(-)1.3 cm 2D Systolic Function EF 4C: 39.10 >55% EF 2C: 44.70 >55% EF BiP: 43.00 >55% Mitral Valve MV VTI: 0.22 MV Pk Jhonatan: 1.46 MV Mn Jhonatan: 0.98 MV Pk Grad: 9.00 MV Mn Grad: 5.00 MV Pk E: 1.46 MV Decel Time: 112.00 E'Lateral: 18.50 E'Medial: 12.00 E/E' Med: 12.20 E/E' Lat: 7.90 PHT: 33.00 MVA PHT: 6.67 MVA Continuity: 2.12 Decel Refugio: 13.02 Aortic Valve AoV Pk Jhonatan: 2.65 AoV Mn Jhonatan: 1.89 AoV VTI: 0.43 AoV Pk Grad: 28.00 Aov Mn Grad: 16.00 DIEUDONNE Cont.VTI: 1.11 LVOT LVOT Pk Jhonatan: 0.91 LVOT Mn Jhonatan: 0.60 LVOT VTI: 0.15 LVOT Pk Grad: 3.00 LVOT Mn Grad: 2.00 LVOT Diam: 2.00 LVOT Area: 3.14 Diastolic Function MV Pk E: 1.46 E'Medial: 12.00 E/E' Med: 12.20 E' Laterial: 18.50 E/E' Lat: 7.90 Right Ventricle TAPSE (mm): 27.50 TVS' Jhonatan: 16.30 Tricuspid Valve TR Pk Jhonatan: 2.35 TR Pk Grad: 22.00 RA Press: 3.00 RVSP: 25.00 Great Vessels Aorta Sinus of Valsalva: 4.00 2.0-3.5 cm Ao Asc: 2.90 2.1-3.4 cm Pulmonary Valve PV Pk Jhonatan: 1.26 Peak PV Grad: 6.00 Updated in Other Vendor System with Status of Final Roosevelt Woodruff MD electronically signed on 05/21/2023 5:06:50 PM with status of Final
[2023-05-21] MEDS: Fluticasone/Vilanterol 200/25 BLST.W.DEV 1 PUFF INHALE (07:43)
[2023-05-21 07:45] VITALS: PULSE 108; RESP 16; O2SAT 91
[2023-05-21] MEDS: Lidocaine 4 % Patch ADH..PATCH 1 PATCH TRANSDERMA (07:53)
[2023-05-21] MEDS: Enoxaparin Sodium 150 MG/ML SYRINGE 135 MG SUBCUT (07:54)
[2023-05-21] MEDS: Atorvastatin Calcium 20 MG TABLET PO (07:54)
[2023-05-21] MEDS: Folic Acid 1 MG TABLET PO (07:55)
[2023-05-21] MEDS: Sacubitril/Valsartan 24/26 1 TAB TABLET PO ×2 (07:55→19:41)
[2023-05-21] MEDS: Thiamine HCL 100 MG TABLET PO (07:55)
[2023-05-21] MEDS: Nicotine Polacrilex 2 MG GUM BUCCAL ×2 (07:55→17:48)
[2023-05-21] MEDS: Metoprolol Succinate ER 50 MG TAB.ER.24H PO (07:55)
[2023-05-21] MEDS: Magnesium Oxide 400 MG TABLET 800 MG PO ×2 (07:55→19:38)
[2023-05-21] MEDS: Nicotine 21 MG PATCH.TD24 TRANSDERMA (07:57)
[2023-05-21] MEDS: 0.9 % Sodium Chloride Flush 3 ML SYRINGE IVFLUSH ×2 (07:57→17:50)
[2023-05-21] MEDS: PHENobarbitaL 30 MG TABLET PO ×2 (07:58→19:39)
[2023-05-21] MEDS: busPIRone HCl 10 MG TABLET PO ×3 (07:58→19:38)
[2023-05-21] MEDS: Acetaminophen 325 MG TABLET 650 MG PO ×2 (11:41→17:48)
[2023-05-21 11:55] VITALS: BP 128/77; PULSE 111; RESP 20; TEMP 36.7; O2SAT 95
--- NOTE | 2023-05-21 12:41 | HO.PM.IMPN ---
Subjective Subjective Date of Service: 05/21/23 Interval History: worsening hypoxia and dyspnea overnight, found to have pulmonary edema started on IV furosemide. Diuresing and feeling better coughing Review of Systems Review of Systems: Yes all other systems are reviewed and are negative Physical Exam Vital Signs: Vital Signs: Last Vital Signs Temp 98.0 F 05/21/23 11:55 Pulse 111 H 05/21/23 11:55 Resp 20 05/21/23 11:55 BP 128/77 05/21/23 11:55 Pulse Ox 95 05/21/23 11:55 O2 Del Method Nasal Cannula 05/21/23 11:55 O2 Flow Rate 10 05/21/23 11:55 BMI result Body Mass Index 26.6 Gen: mild resp distress HEENT: sclera anicteric, moist mucus membranes Neck: supple, JVD Lungs: bilateral inspiratory crackles Heart: regular, mechanical S2 Abd: soft, non-tender, non-distended Ext: no edema Skin: warm/well-perfused Neuro: alert and oriented to self/place, no tremor or asterixis Psych: impaired insight Objective Data Active Medications Acetaminophen (Acetaminophen 325 Mg Tablet) 650 mg PO Q6H PRN PRN Reason: Pain, Mild (Pain Scale 1-3) Last Admin: 05/21/23 11:41 Dose: 650 mg Documented By: WINNIE Albuterol Sulfate (Albuterol Sulfate 90 Mcg 8 Gm Inhaler) 2 puff INHALE Q4H PRN PRN Reason: Respiratory Distress Atorvastatin Calcium (Atorvastatin Calcium 20 Mg Tablet) 20 mg PO DAILY [facility] Last Admin: 05/21/23 07:54 Dose: 20 mg Documented By: WINNIE Buspirone HCl (Buspirone Hcl 10 Mg Tablet) 10 mg PO TID [facility] Last Admin: 05/21/23 07:58 Dose: 10 mg Documented By: WINNIE Doxycycline Monohydrate (Doxycycline Monohydrate 100 Mg Capsule) 100 mg PO Q12H [facility] Enoxaparin Sodium (Enoxaparin Sodium 150 Mg/Ml Syringe) 135 mg 1.5 mg/kg (135 mg) SUBCUT Q24H [facility] Last Admin: 05/21/23 07:54 Dose: 135 mg Documented By: WINNIE Fluticasone/Vilanterol (Fluticasone/Vilanterol 200/25 Blst.W.Dev) 1 puff INHALE RDAILY [facility] Last Admin: 05/21/23 07:43 Dose: 1 puff Documented By: BOUCHRA Folic Acid (Folic Acid 1 Mg Tablet) 1 mg PO DAILY [facility] Last Admin: 05/21/23 07:55 Dose: 1 mg Documented By: WINNIE Furosemide (Furosemide 40 Mg/4 Ml Vial) 40 mg IVPUSH BID@0900,1800 [facility]; Protocol Ceftriaxone Sodium 1 gm/ (Sodium Chloride) 50 mls @ 100 mls/hr IV Q24H [facility] Last Infusion: 05/20/23 19:21 Dose: Infused Documented By: WINNIE Lidocaine (Lidocaine 4 % Patch Adh..Patch) 1 patch TRANSDERMA DAILY [facility] Last Admin: 05/21/23 07:53 Dose: 1 patch Documented By: WINNIE Magnesium Oxide (Magnesium Oxide 400 Mg Tablet) 800 mg PO BID [facility] Last Admin: 05/21/23 07:55 Dose: 800 mg Documented By: WINNIE Melatonin (Melatonin 3 Mg Tablet) 6 mg PO BEDTIME PRN PRN Reason: Insomnia Last Admin: 05/18/23 20:41 Dose: 6 mg Documented By: ABDOUL Metoprolol Succinate (Metoprolol Succinate Er 50 Mg Tab.Er.24h) 50 mg PO DAILY [facility]; Protocol Last Admin: 05/21/23 07:55 Dose: 50 mg Documented By: WINNIE Nicotine (Nicotine 21 Mg Patch.Td24) 21 mg TRANSDERMA DAILY [facility] Last Admin: 05/21/23 07:57 Dose: 21 mg Documented By: WINNIE Nicotine Polacrilex (Nicotine Polacrilex 2 Mg Gum) 2 mg BUCCAL Q1H PRN PRN Reason: Nicotine Cravings Last Admin: 05/21/23 07:55 Dose: 2 mg Documented By: WINNIE Olanzapine (Olanzapine 5 Mg Tablet) 5 mg PO BEDTIME [facility] Last Admin: 05/20/23 20:00 Dose: 5 mg Documented By: ZAKIYA Omeprazole (Omeprazole 20 Mg Capsule.Dr) 20 mg PO BID@0630,1630 [facility] Last Admin: 05/21/23 06:23 Dose: Not Given Documented By: ZAKIYA Non-Admin Reason: Patient Refused Ondansetron HCl (Ondansetron Hcl 4 Mg/2 Ml Vial) 4 mg IVPUSH Q8H PRN PRN Reason: Nausea and Vomiting Last Admin: 05/18/23 08:27 Dose: 4 mg Documented By: HORACIO Pharmacy Consult (Consult Rx Etoh Phenob Im/Po) 1 each MISCELLANE ONCE PRN; Protocol PRN Reason: Consult order Phenobarbital (Phenobarbital 30 Mg Tablet) 30 mg PO BID [facility] Stop: 05/22/23 21:01 Last Admin: 05/21/23 07:58 Dose: 30 mg Documented By: WINNIE Phenobarbital (Phenobarbital 30 Mg Tablet) 30 mg PO DAILY [facility] Stop: 05/24/23 09:01 Sacubitril/Valsartan (Sacubitril/Valsartan 1 Tab Tablet) 1 tab PO BID [facility]; Protocol Last Admin: 05/21/23 07:55 Dose: 1 tab Documented By: WINNIE Senna (Sennosides 8.6 Mg Tablet) 17.2 mg PO BEDTIME PRN PRN Reason: Constipation Sodium Chloride (0.9 % Sodium Chloride Flush 3 Ml Syringe) 3 ml IVFLUSH QSHIFT [facility] Last Admin: 05/21/23 07:57 Dose: 3 ml Documented By: WINNIE Thiamine HCl (Thiamine Hcl 100 Mg Tablet) 100 mg PO DAILY [facility] Last Admin: 05/21/23 07:55 Dose: 100 mg Documented By: WINNIE Warfarin Sodium (Warfarin Sodium 5 Mg Tablet) 5 mg PO DAILY@1800 [facility] Last Admin: 05/20/23 18:16 Dose: 5 mg Documented By: WINNIE Zolpidem Tartrate (Zolpidem Tartrate 5 Mg Tablet) 10 mg PO BEDTIME PRN PRN Reason: Insomnia Last Admin: 05/20/23 20:00 Dose: 10 mg Documented By: ZAKIYA Labs 05/21/23 05:22 05/21/23 05:22 Labs: Laboratory Results - last 24 hr 05/17/23 05/21/23 05/21/23 22:00 03:49 05:22 MCV 83.0 MCH 28.1 MCHC 33.9 RDW 17.2 H Plt Count 189 MPV 10.0 Absolute Nucleated RBC 0.000 Nucleated RBC % (auto) 0.0 PT 17.7 H D INR 1.5 H VBG pH 7.51 H VBG pCO2 36 VBG pO2 62 VBG HCO3 29 H VBG O2 Saturation 92.0 VBG Base Excess 6.8 Anion Gap 11 L Estim Creat Clear Calc 127.6 Estimated GFR > 60 Random Glucose 101 Calcium 8.8 Magnesium 1.7 B-Natriuretic Peptide 1014 H Ur Strep pneumoniae Ag Not Detected Assessment and Plan (1) Sepsis: Status: Acute Plan d5 63yo M with hx aortic valve replacement anticoagulated on warfarin, AUD with liver disease, hx cocaine abuse disorder, HFrEF s/p AICD, hx intracranial hemorrhage, CAD s/p CABG, mood disorder Came in lethargic, confused, and weak Found to be hypotensive, which resolved with colloid + crystalloid resuscitation Hypoxic with ground-glass infiltrate, negative for Covid-19 or influenza Also with EDGAR, rhabdomyolysis, and hyponatremia INR supratherapeutic May have taken 4 tablets of Ambien in the ED Acute hypoxic resp failure due to pneumonia and CHF exacerbation - ceftriaxone + doxycycline 05/17- - BCx negative @ 48h, pneumococcal urine antigen negative, Legionella urine antigen test pending, trend PCT, respiratory pathogen panel negative, MRSA swab negative - wean O2 as tolerated Acute-chronic HFrEF - TTE, continue diuresis with IV furosemide, monitor BMP/BNP/Mg/I+O. Continue Entresto + metoprolol succinate AUD with high risk withdrawal - Started low-dose phenobarbital taper given history of possible Ambien ingestion in ED with careful attention to neurologic status. Thiamine, folate. Addiction Medicine consulted, to consider naltrexone Extra dose of phenobarbital given 05/19. Toxic-metabolic encephalopathy - Due to EtOH withdrawal, PNA; resolving. HypoMg - Repleted. Continue PO maintenance Hyponatremia - Resolved. Did get D5W due to overly quick correction. Hypotension - Suspected due to medication misuse rather than sepsis. Resolved with crystalloid + colloid resuscitation. Rhabdomyolysis - CPK <1000, now off IV fluids Supratherapeutic INR Mechanical aortic valve - Not bleeding. High risk for clot so did not give vit K. INR 1.9 05/20, resumed warfarin. INR 1.5 today. Continue 1.5 mg/kg enoxaparin SQ daily until INR >2 x48h. EDGAR, prerenal - Resolved with fluid resuscitation. EtOH liver disease - Monitor LFTs which are improving. Chronic anemia - Due to iron deficiency + chronic disease. Monitor H+H. FOBT negative. Chronic HFrEF - Held metoprolol + Entresto due to hypotension; resumed metoprolol succinate + Entresto CAD s/p CABG - Held clopidogrel due to supratherapeutic INR + metoprolol due to hypotension; resumed metoprolol succinate Mood disorder - Olanzapine Polysubstance abuse - Addiction Medicine consult. Screen HBV/HCV/HIV negative VTE ppx - SCDs Dispo - Will likely need STR/IPR In my clinical judgment, the patient requires continued inpatient hospitalization for the following reasons: hypoxia, diuresis, IV ABX Total time managing care of this patient today: 50 minutes. Quality Stroke Does the patient have a stroke diagnosis?: No VTE Prior VTE?: No VTE Risk Level:: Medical - moderate - high VTE Device Contraindication: N/A - Device Ordered VTE Drug Contraindication: Treatment Not Indicated
[2023-05-21 15:42] VITALS: BP 126/58; PULSE 110; RESP 20; TEMP 36.2; O2SAT 93
[2023-05-21] MEDS: Doxycycline Monohydrate 100 MG CAPSULE PO (17:48)
[2023-05-21] MEDS: Omeprazole 20 MG CAPSULE.DR PO (17:48)
[2023-05-21] MEDS: Warfarin Sodium 5 MG TABLET PO (17:49)
[2023-05-21] MEDS: cefTRIAXone sodium 1 GM in 0.9 % Sodium Chloride 50 ML IV (17:49)
[2023-05-21 19:07] VITALS: BP 115/65; PULSE 105; RESP 20; TEMP 36.6; O2SAT 92
[2023-05-21] MEDS: OLANZapine 5 MG TABLET PO (19:38)
[2023-05-21] MEDS: Zolpidem Tartrate 5 MG TABLET 10 MG PO (19:40)
[2023-05-21 23:57] VITALS: BP 122/67; PULSE 95; RESP 18; TEMP 36.1; O2SAT 92
[2023-05-22] VITALS (7 sets, daily range): BP systolic 100–134; BP diastolic 55–80; PULSE 82–101; RESP 16–20; TEMP 36–37; O2SAT 93–98
[2023-05-22] MEDS: 0.9 % Sodium Chloride Flush 3 ML SYRINGE IVFLUSH ×4 (00:16→19:58)
[2023-05-22] MEDS: Acetaminophen 325 MG TABLET 650 MG PO (01:57)
[2023-05-22] MEDS: Doxycycline Monohydrate 100 MG CAPSULE PO ×2 (05:51→18:01)
[2023-05-22] MEDS: Omeprazole 20 MG CAPSULE.DR PO ×2 (05:51→16:33)
[2023-05-22 07:38] LABS: INTERNATIONAL NORM RATIO 1.6 (0.9-1.1); Prothrombin Time 19.1 SEC (11.1-13.3)
[2023-05-22 07:54] LABS: B Type Natriuretic Peptide 226 pg/mL (<100)
[2023-05-22 08:03] LABS: Alanine Aminotransferase 135 U/L (0-40); Alkaline Phosphatase 196 U/L (39-117); Anion Gap 11 (12-20); Aspartate Amino Transferase 43 U/L (5-37); Bilirubin Direct 0.3 mg/dL (0.0-0.5); Bilirubin Total 0.6 mg/dL (0.0-1.0); Blood Urea Nitrogen 14 mg/dL (9-16); Carbon Dioxide 30 mmol/L (22-29); Chloride 99 mmol/L (96-108); Creatinine Clr Calc Pharmacy 133.8; Estimated Glomerular Filt Rate > 60; Glucose Random 96 mg/dL (60-115); Magnesium 1.5 mg/dL (1.6-2.6); Potassium 4.1 mmol/L (3.3-5.1); Sodium 136 mmol/L (135-145); Total Protein 6.8 g/dL (6.5-8.0)
[2023-05-22 08:11] LABS: Procalcitonin 1.46 ng/mL
[2023-05-22] MEDS: Fluticasone/Vilanterol 200/25 BLST.W.DEV 1 PUFF INHALE (08:21)
[2023-05-22] MEDS: Lidocaine 4 % Patch ADH..PATCH 1 PATCH TRANSDERMA (09:25)
[2023-05-22] MEDS: Nicotine 21 MG PATCH.TD24 TRANSDERMA (09:25)
[2023-05-22] MEDS: Enoxaparin Sodium 150 MG/ML SYRINGE 135 MG SUBCUT (09:25)
[2023-05-22] MEDS: busPIRone HCl 10 MG TABLET PO ×3 (09:27→19:56)
[2023-05-22] MEDS: Folic Acid 1 MG TABLET PO (09:27)
[2023-05-22] MEDS: Atorvastatin Calcium 20 MG TABLET PO (09:27)
[2023-05-22] MEDS: Magnesium Oxide 400 MG TABLET 800 MG PO ×2 (09:27→19:56)
[2023-05-22] MEDS: Furosemide 40 MG/4 ML VIAL IVPUSH ×2 (09:28→18:03)
[2023-05-22] MEDS: PHENobarbitaL 30 MG TABLET PO ×2 (09:28→19:56)
[2023-05-22] MEDS: Sacubitril/Valsartan 24/26 1 TAB TABLET PO ×2 (09:28→19:55)
[2023-05-22] MEDS: Magnesium Sulfate/H2O 2 GM/50 ML PIGGYBACK IV ×2 (09:28→10:22)
[2023-05-22] MEDS: Thiamine HCL 100 MG TABLET PO (09:28)
[2023-05-22] MEDS: Metoprolol Succinate ER 50 MG TAB.ER.24H PO (09:29)
--- NOTE | 2023-05-22 13:31 | HO.PM.IMPN ---
Subjective Subjective Date of Service: 05/22/23 Interval History: Dyspnea improved O2 down to 6L NC Urinated 2250 mL yesterday This history was taken in [place] from the patient. Review of Systems Review of Systems: Yes all other systems are reviewed and are negative Physical Exam Vital Signs: Vital Signs: Last Vital Signs Temp 96.9 F 05/22/23 11:21 Pulse 90 05/22/23 11:21 Resp 19 05/22/23 11:21 BP 101/58 L 05/22/23 11:21 Pulse Ox 98 05/22/23 11:21 O2 Del Method Nasal Cannula 05/22/23 11:21 O2 Flow Rate 6 05/22/23 11:21 BMI result Body Mass Index 26.6 Gen: NAD HEENT: sclera anicteric, moist mucus membranes Neck: supple, JVD Lungs: bilateral inspiratory crackles Heart: regular, mechanical S2 Abd: soft, non-tender, non-distended Ext: no edema Skin: warm/well-perfused Neuro: alert and oriented to self/place, no tremor or asterixis Psych: impaired insight Objective Data Active Medications Acetaminophen (Acetaminophen 325 Mg Tablet) 650 mg PO Q6H PRN PRN Reason: Pain, Mild (Pain Scale 1-3) Last Admin: 05/22/23 01:57 Dose: 650 mg Documented By: MARKUS Albuterol Sulfate (Albuterol Sulfate 90 Mcg 8 Gm Inhaler) 2 puff INHALE Q4H PRN PRN Reason: Respiratory Distress Atorvastatin Calcium (Atorvastatin Calcium 20 Mg Tablet) 20 mg PO DAILY [facility] Last Admin: 05/22/23 09:27 Dose: 20 mg Documented By: SAUNDRA Buspirone HCl (Buspirone Hcl 10 Mg Tablet) 10 mg PO TID [facility] Last Admin: 05/22/23 09:27 Dose: 10 mg Documented By: SAUNDRA Doxycycline Monohydrate (Doxycycline Monohydrate 100 Mg Capsule) 100 mg PO Q12H [facility] Last Admin: 05/22/23 05:51 Dose: 100 mg Documented By: GAMA Enoxaparin Sodium (Enoxaparin Sodium 150 Mg/Ml Syringe) 135 mg 1.5 mg/kg (135 mg) SUBCUT Q24H [facility] Last Admin: 05/22/23 09:25 Dose: 135 mg Documented By: SAUNDRA Fluticasone/Vilanterol (Fluticasone/Vilanterol 200/25 Blst.W.Dev) 1 puff INHALE RDAILY [facility] Last Admin: 05/22/23 08:21 Dose: 1 puff Documented By: MICHAEL Folic Acid (Folic Acid 1 Mg Tablet) 1 mg PO DAILY [facility] Last Admin: 05/22/23 09:27 Dose: 1 mg Documented By: SAUNDRA Furosemide (Furosemide 40 Mg/4 Ml Vial) 40 mg IVPUSH BID@0900,1800 [facility]; Protocol Last Admin: 05/22/23 09:28 Dose: 40 mg Documented By: SAUNDRA Ceftriaxone Sodium 1 gm/ (Sodium Chloride) 50 mls @ 100 mls/hr IV Q24H [facility] Last Infusion: 05/21/23 18:40 Dose: Infused Documented By: WINNIE Lidocaine (Lidocaine 4 % Patch Adh..Patch) 1 patch TRANSDERMA DAILY [facility] Last Admin: 05/22/23 09:25 Dose: 1 patch Documented By: SAUNDRA Magnesium Oxide (Magnesium Oxide 400 Mg Tablet) 800 mg PO BID [facility] Last Admin: 05/22/23 09:27 Dose: 800 mg Documented By: SAUNDRA Melatonin (Melatonin 3 Mg Tablet) 6 mg PO BEDTIME PRN PRN Reason: Insomnia Last Admin: 05/18/23 20:41 Dose: 6 mg Documented By: ABDOUL Metoprolol Succinate (Metoprolol Succinate Er 50 Mg Tab.Er.24h) 50 mg PO DAILY [facility]; Protocol Last Admin: 05/22/23 09:29 Dose: 50 mg Documented By: SAUNDRA Nicotine (Nicotine 21 Mg Patch.Td24) 21 mg TRANSDERMA DAILY [facility] Last Admin: 05/22/23 09:25 Dose: 21 mg Documented By: SAUNDRA Nicotine Polacrilex (Nicotine Polacrilex 2 Mg Gum) 2 mg BUCCAL Q1H PRN PRN Reason: Nicotine Cravings Last Admin: 05/21/23 17:48 Dose: 2 mg Documented By: WINNIE Olanzapine (Olanzapine 5 Mg Tablet) 5 mg PO BEDTIME [facility] Last Admin: 05/21/23 19:38 Dose: 5 mg Documented By: MAGDALENA Omeprazole (Omeprazole 20 Mg Capsule.Dr) 20 mg PO BID@0630,1630 [facility] Last Admin: 05/22/23 05:51 Dose: 20 mg Documented By: GAMA Ondansetron HCl (Ondansetron Hcl 4 Mg/2 Ml Vial) 4 mg IVPUSH Q8H PRN PRN Reason: Nausea and Vomiting Last Admin: 05/18/23 08:27 Dose: 4 mg Documented By: HORACIO Pharmacy Consult (Consult Rx Etoh Phenob Im/Po) 1 each MISCELLANE ONCE PRN; Protocol PRN Reason: Consult order Phenobarbital (Phenobarbital 30 Mg Tablet) 30 mg PO BID [facility] Stop: 05/22/23 21:01 Last Admin: 05/22/23 09:28 Dose: 30 mg Documented By: SAUNDRA Phenobarbital (Phenobarbital 30 Mg Tablet) 30 mg PO DAILY [facility] Stop: 05/24/23 09:01 Sacubitril/Valsartan (Sacubitril/Valsartan 1 Tab Tablet) 1 tab PO BID [facility]; Protocol Last Admin: 05/22/23 09:28 Dose: 1 tab Documented By: SAUNDRA Senna (Sennosides 8.6 Mg Tablet) 17.2 mg PO BEDTIME PRN PRN Reason: Constipation Sodium Chloride (0.9 % Sodium Chloride Flush 3 Ml Syringe) 3 ml IVFLUSH QSHIFT [facility] Last Admin: 05/22/23 09:29 Dose: 3 ml Documented By: SAUNDRA Thiamine HCl (Thiamine Hcl 100 Mg Tablet) 100 mg PO DAILY [facility] Last Admin: 05/22/23 09:28 Dose: 100 mg Documented By: SAUNDRA Warfarin Sodium (Warfarin Sodium 5 Mg Tablet) 5 mg PO DAILY@1800 [facility] Last Admin: 05/21/23 17:49 Dose: 5 mg Documented By: WINNIE Zolpidem Tartrate (Zolpidem Tartrate 5 Mg Tablet) 10 mg PO BEDTIME PRN PRN Reason: Insomnia Last Admin: 05/21/23 19:40 Dose: 10 mg Documented By: BEIT Labs 05/21/23 05:22 05/22/23 07:03 Labs: Laboratory Results - last 24 hr 05/22/23 07:03 PT 19.1 H INR 1.6 H Anion Gap 11 L Estim Creat Clear Calc 133.8 Estimated GFR > 60 Random Glucose 96 Calcium 9.0 Magnesium 1.5 L Total Bilirubin 0.6 Direct Bilirubin 0.3 AST 43 H ALT 135 H Alkaline Phosphatase 196 H B-Natriuretic Peptide 226 H Total Protein 6.8 Albumin 3.0 L Procalcitonin 1.46 Assessment and Plan (1) Sepsis: Status: Acute Plan d6 63yo M with hx aortic valve replacement anticoagulated on warfarin, AUD with liver disease, hx cocaine abuse disorder, HFrEF s/p AICD, hx intracranial hemorrhage, CAD s/p CABG, mood disorder came in lethargic, confused, and weak found to be hypotensive [resolved with colloid + crystalloid resuscitation] hypoxic with ground-glass infiltrate, negative for Covid-19 or influenza also with EDGAR, rhabdo, hypoNa, supratherapeutic INR may have taken 4 tablets of Ambien in the ED acute hypoxic resp failure due to pneumonia and CHF exacerbation - ceftriaxone + doxycycline 05/17-05/24 - BCx negative @ 48h, pneumococcal urine antigen negative, Legionella urine antigen test pending, PCT coming down, respiratory pathogen panel negative, MRSA swab negative - wean O2 as tolerated acute-chronic HFrEF - TTE 05/21/23: - Normal left ventricular cavity size. There is severely increased left ventricular wall thickness. The left ventricular systolic function is borderline reduced. The visually estimated ejection fraction is between 45-50%. - Mildly increased right ventricular cavity size. There is normal right ventricular systolic function. - A bioprosthetic aortic valve is present. The prosthetic aortic valve appears to be functioning normally. There is no aortic valve stenosis. There is no aortic valve regurgitation. - continue diuresis with IV furosemide, monitor BMP/BNP/Mg/I+O - continue Entresto + metoprolol succinate AUD with high risk withdrawal - start phenobarbital taper at low dose given history of possible Ambien. - continue thiamine, folate - Addiction Medicine consulted, to consider naltrexone toxic-metabolic encephalopathy - due to EtOH withdrawal, PNA; resolving hypoMg - replete IV, recheck level in AM; continue PO maintenance hyponatremia - resolved. did get D5W due to overly quick correction. hypotension - suspected due to medication misuse rather than sepsis. resolved with crystalloid + colloid resuscitation. rhabdomyolysis - CPK <1000, now off IV fluids supratherapeutic INR with mechanical aortic valve - not bleeding. high risk for clot so did not give vit K. INR 1.9 05/20, resumed warfarin. INR 1.6 today. Continue 1.5 mg/kg enoxaparin SQ daily until INR >2 x48h. EDGAR, prerenal - resolved with fluid resuscitation. EtOH liver disease - LFTs improving chronic anemia - due to iron deficiency + chronic disease. FOBT negative CAD s/p CABG - held clopidogrel due to supratherapeutic INR + metoprolol due to hypotension; resumed metoprolol succinate + clopidogrel mood disorder - olanzapine polysubstance abuse - addiction Medicine consult. screen for HBV/HCV/HIV negative VTE ppx - warfarin, enoxaparin dispo - per PT needs STR/IPR In my clinical judgment, the patient requires continued inpatient hospitalization for the following reasons: hypoxia, diuresis, IV ABX Total time managing care of this patient today: 40 minutes. Quality Stroke Does the patient have a stroke diagnosis?: No VTE Prior VTE?: No VTE Risk Level:: Medical - moderate - high VTE Device Contraindication: N/A - Device Ordered VTE Drug Contraindication: Treatment Not Indicated
[2023-05-22] MEDS: Clopidogrel Bisulfate 75 MG TABLET PO (14:18)
[2023-05-22] MEDS: Warfarin Sodium 5 MG TABLET PO (18:01)
[2023-05-22] MEDS: cefTRIAXone sodium 1 GM in 0.9 % Sodium Chloride 50 ML IV (18:01)
[2023-05-22] MEDS: Zolpidem Tartrate 5 MG TABLET 10 MG PO (19:55)
[2023-05-22] MEDS: OLANZapine 5 MG TABLET PO (19:55)
[2023-05-22] MEDS: Melatonin 3 MG TABLET 6 MG PO (19:56)
[2023-05-23] VITALS (9 sets, daily range): BP systolic 105–160; BP diastolic 59–87; PULSE 94–107; RESP 16–20; TEMP 36.3–38; O2SAT 91–99
[2023-05-23] MEDS: Omeprazole 20 MG CAPSULE.DR PO ×2 (06:22→15:33)
[2023-05-23] MEDS: Doxycycline Monohydrate 100 MG CAPSULE PO ×2 (06:22→17:30)
[2023-05-23 07:17] LABS: INTERNATIONAL NORM RATIO 1.5 (0.9-1.1); Prothrombin Time 18.4 SEC (11.1-13.3)
[2023-05-23 07:20] LABS: Anion Gap 11 (12-20); Blood Urea Nitrogen 16 mg/dL (9-16); Calcium 8.9 mg/dL (8.4-10.2); Carbon Dioxide 32 mmol/L (22-29); Chloride 98 mmol/L (96-108); Creatinine Clr Calc Pharmacy 120.2; Estimated Glomerular Filt Rate > 60; Glucose Random 110 mg/dL (60-115); Magnesium 1.7 mg/dL (1.6-2.6); Potassium 3.9 mmol/L (3.3-5.1); Sodium 137 mmol/L (135-145)
[2023-05-23] MEDS: Fluticasone/Vilanterol 200/25 BLST.W.DEV 1 PUFF INHALE (07:45)
--- NOTE | 2023-05-23 07:58 | HO.PM.IMPN ---
Subjective Subjective Date of Service: 05/23/23 Interval History: Seen in follow up for pneumonia, hypoxia, chf Interval history: Dyspnea improved, wants to go home. O2 down to 4L NC. febrile to 100.4 today, -1025ml x 24 hours Review of Systems Review of Systems: Yes all other systems are reviewed and are negative Physical Exam Vital Signs: Vital Signs: Last Vital Signs Temp 97.7 F 05/23/23 03:35 Pulse 94 05/23/23 07:46 Resp 20 05/23/23 07:46 BP 130/64 05/23/23 03:35 Pulse Ox 95 05/23/23 03:35 O2 Del Method Nasal Cannula 05/23/23 03:35 O2 Flow Rate 2 05/23/23 03:35 BMI result Body Mass Index 26.6 Gen: NAD HEENT: sclera anicteric, moist mucus membranes Neck: supple, JVD Lungs: bilateral inspiratory crackles Heart: regular, mechanical S2 Abd: soft, non-tender, non-distended Ext: no edema Skin: warm/well-perfused Neuro: alert x3 but poor insight, no tremor or asterixis Psych: impaired insight Objective Data Active Medications Acetaminophen (Acetaminophen 325 Mg Tablet) 650 mg PO Q6H PRN PRN Reason: Pain, Mild (Pain Scale 1-3) Last Admin: 05/22/23 01:57 Dose: 650 mg Documented By: MARKUS Albuterol Sulfate (Albuterol Sulfate 90 Mcg 8 Gm Inhaler) 2 puff INHALE Q4H PRN PRN Reason: Respiratory Distress Atorvastatin Calcium (Atorvastatin Calcium 20 Mg Tablet) 20 mg PO DAILY [facility] Last Admin: 05/22/23 09:27 Dose: 20 mg Documented By: SAUNDRA Buspirone HCl (Buspirone Hcl 10 Mg Tablet) 10 mg PO TID [facility] Last Admin: 05/22/23 19:56 Dose: 10 mg Documented By: DARREL Clopidogrel Bisulfate (Clopidogrel Bisulfate 75 Mg Tablet) 75 mg PO DAILY [facility] Last Admin: 05/22/23 14:18 Dose: 75 mg Documented By: SAUNDRA Doxycycline Monohydrate (Doxycycline Monohydrate 100 Mg Capsule) 100 mg PO Q12H [facility] Last Admin: 05/23/23 06:22 Dose: 100 mg Documented By: GAMA Enoxaparin Sodium (Enoxaparin Sodium 150 Mg/Ml Syringe) 135 mg 1.5 mg/kg (135 mg) SUBCUT Q24H [facility] Last Admin: 05/22/23 09:25 Dose: 135 mg Documented By: SAUNDRA Fluticasone/Vilanterol (Fluticasone/Vilanterol 200/25 Blst.W.Dev) 1 puff INHALE RDAILY [facility] Last Admin: 05/23/23 07:45 Dose: 1 puff Documented By: DIEGO Folic Acid (Folic Acid 1 Mg Tablet) 1 mg PO DAILY [facility] Last Admin: 05/22/23 09:27 Dose: 1 mg Documented By: SAUNDRA Furosemide (Furosemide 40 Mg/4 Ml Vial) 40 mg IVPUSH BID@0900,1800 [facility]; Protocol Last Admin: 05/22/23 18:03 Dose: 40 mg Documented By: SAUNDRA Ceftriaxone Sodium 1 gm/ (Sodium Chloride) 50 mls @ 100 mls/hr IV Q24H [facility] Last Infusion: 05/22/23 18:34 Dose: Infused Documented By: SAUNDRA Lidocaine (Lidocaine 4 % Patch Adh..Patch) 1 patch TRANSDERMA DAILY [facility] Last Admin: 05/22/23 09:25 Dose: 1 patch Documented By: SAUNDRA Magnesium Oxide (Magnesium Oxide 400 Mg Tablet) 800 mg PO BID [facility] Last Admin: 05/22/23 19:56 Dose: 800 mg Documented By: DARREL Melatonin (Melatonin 3 Mg Tablet) 6 mg PO BEDTIME PRN PRN Reason: Insomnia Last Admin: 05/22/23 19:56 Dose: 6 mg Documented By: DARREL Metoprolol Succinate (Metoprolol Succinate Er 50 Mg Tab.Er.24h) 50 mg PO DAILY [facility]; Protocol Last Admin: 05/22/23 09:29 Dose: 50 mg Documented By: SAUNDRA Nicotine (Nicotine 21 Mg Patch.Td24) 21 mg TRANSDERMA DAILY [facility] Last Admin: 05/22/23 09:25 Dose: 21 mg Documented By: SAUNDRA Nicotine Polacrilex (Nicotine Polacrilex 2 Mg Gum) 2 mg BUCCAL Q1H PRN PRN Reason: Nicotine Cravings Last Admin: 05/21/23 17:48 Dose: 2 mg Documented By: WINNIE Olanzapine (Olanzapine 5 Mg Tablet) 5 mg PO BEDTIME [facility] Last Admin: 05/22/23 19:55 Dose: 5 mg Documented By: DARREL Omeprazole (Omeprazole 20 Mg Capsule.) 20 mg PO BID@0630,1630 [facility] Last Admin: 05/23/23 06:22 Dose: 20 mg Documented By: GAMA Ondansetron HCl (Ondansetron Hcl 4 Mg/2 Ml Vial) 4 mg IVPUSH Q8H PRN PRN Reason: Nausea and Vomiting Last Admin: 05/18/23 08:27 Dose: 4 mg Documented By: HORACIO Pharmacy Consult (Consult Rx Etoh Phenob Im/Po) 1 each MISCELLANE ONCE PRN; Protocol PRN Reason: Consult order Phenobarbital (Phenobarbital 30 Mg Tablet) 30 mg PO DAILY [facility] Stop: 05/24/23 09:01 Sacubitril/Valsartan (Sacubitril/Valsartan 1 Tab Tablet) 1 tab PO BID [facility]; Protocol Last Admin: 05/22/23 19:55 Dose: 1 tab Documented By: DARREL Senna (Sennosides 8.6 Mg Tablet) 17.2 mg PO BEDTIME PRN PRN Reason: Constipation Sodium Chloride (0.9 % Sodium Chloride Flush 3 Ml Syringe) 3 ml IVFLUSH QSHIFT [facility] Last Admin: 05/22/23 19:58 Dose: 3 ml Documented By: DARREL Thiamine HCl (Thiamine Hcl 100 Mg Tablet) 100 mg PO DAILY [facility] Last Admin: 05/22/23 09:28 Dose: 100 mg Documented By: SAUNDRA Warfarin Sodium (Warfarin Sodium 5 Mg Tablet) 5 mg PO DAILY@1800 [facility] Last Admin: 05/22/23 18:01 Dose: 5 mg Documented By: SAUNDRA Zolpidem Tartrate (Zolpidem Tartrate 5 Mg Tablet) 10 mg PO BEDTIME PRN PRN Reason: Insomnia Last Admin: 05/22/23 19:55 Dose: 10 mg Documented By: DARREL Labs 05/21/23 05:22 05/23/23 06:26 Labs: Laboratory Results - last 24 hr 05/22/23 05/23/23 07:03 06:26 PT 18.4 H INR 1.5 H Anion Gap 11 L 11 L Estim Creat Clear Calc 133.8 120.2 Estimated GFR > 60 > 60 Random Glucose 96 110 Calcium 9.0 8.9 Magnesium 1.5 L 1.7 Total Bilirubin 0.6 Direct Bilirubin 0.3 AST 43 H ALT 135 H Alkaline Phosphatase 196 H Total Protein 6.8 Albumin 3.0 L Procalcitonin 1.46 Microbiology Microbiology Results: Microbiology 05/17/23 15:08 Blood Culture - Final Blood - Venous No growth after 5 days. 05/17/23 15:08 Blood Culture - Final Blood - Venous No growth after 5 days. Assessment and Plan (1) Alcohol use disorder, severe, dependence: Status: Acute (2) Sepsis: Status: Acute (3) Rhabdomyolysis: Status: Acute (4) EDGAR (acute kidney injury): Status: Acute (5) Supratherapeutic INR: Status: Acute (6) Chronic systolic CHF (congestive heart failure): Status: Acute Plan 63yo M with hx aortic valve replacement anticoagulated on warfarin, AUD with liver disease, hx cocaine abuse disorder, HFrEF s/p AICD, hx intracranial hemorrhage, CAD s/p CABG, mood disorder came in lethargic, confused, and weak found to be hypotensive [resolved with colloid + crystalloid resuscitation] hypoxic with ground-glass infiltrate, negative for Covid-19 or influenza also with EDGAR, rhabdo, hypoNa, supratherapeutic INR may have taken 4 tablets of Ambien in the ED acute hypoxic resp failure due to pneumonia and CHF exacerbation - ceftriaxone + doxycycline 05/17-05/24 - BCx negative @ 48h, pneumococcal urine antigen negative, Legionella urine antigen test pending, PCT coming down, respiratory pathogen panel negative, MRSA swab negative - wean O2 as tolerated acute-chronic HFrEF - TTE 05/21/23: - Normal left ventricular cavity size. There is severely increased left ventricular wall thickness. The left ventricular systolic function is borderline reduced. The visually estimated ejection fraction is between 45-50%. - Mildly increased right ventricular cavity size. There is normal right ventricular systolic function. - A bioprosthetic aortic valve is present. The prosthetic aortic valve appears to be functioning normally. There is no aortic valve stenosis. There is no aortic valve regurgitation. -diuresing well: -1025ml x24 hours, - continue diuresis with IV furosemide, monitor BMP/BNP/Mg/I+O - continue Entresto + metoprolol succinate AUD with high risk withdrawal - start phenobarbital taper at low dose given history of possible Ambien. - continue thiamine, folate - Addiction Medicine consulted, to consider naltrexone toxic-metabolic encephalopathy - due to EtOH withdrawal, PNA; resolving hypoMg - replete IV, recheck level in AM; continue PO maintenance hyponatremia - resolved. did get D5W due to overly quick correction. hypotension - suspected due to medication misuse rather than sepsis. resolved with crystalloid + colloid resuscitation. rhabdomyolysis - CPK <1000, now off IV fluids supratherapeutic INR with mechanical aortic valve - not bleeding. high risk for clot so did not give vit K. INR 1.9 05/20, resumed warfarin. INR 1.5 today. Continue 1.5 mg/kg enoxaparin SQ daily until INR >2 x48h. EDGAR, prerenal - resolved with fluid resuscitation. EtOH liver disease - LFTs improving chronic anemia - due to iron deficiency + chronic disease. FOBT negative CAD s/p CABG - held clopidogrel due to supratherapeutic INR + metoprolol due to hypotension; resumed metoprolol succinate + clopidogrel mood disorder - olanzapine polysubstance abuse - addiction Medicine consult. screen for HBV/HCV/HIV negative VTE ppx - warfarin, enoxaparin dispo - per PT needs STR/IPR In my clinical judgment, the patient requires continued inpatient hospitalization for the following reasons: hypoxia, diuresis, IV ABX, safe dispo to inpt pulm rehab Quality Stroke Does the patient have a stroke diagnosis?: No VTE Prior VTE?: No VTE Risk Level:: Medical - moderate - high VTE Device Contraindication: N/A - Device Ordered VTE Drug Contraindication: Treatment Not Indicated
[2023-05-23] MEDS: Enoxaparin Sodium 150 MG/ML SYRINGE 135 MG SUBCUT (09:28)
[2023-05-23] MEDS: Nicotine 21 MG PATCH.TD24 TRANSDERMA (09:28)
[2023-05-23] MEDS: busPIRone HCl 10 MG TABLET PO ×3 (09:30→20:35)
[2023-05-23] MEDS: Thiamine HCL 100 MG TABLET PO (09:30)
[2023-05-23] MEDS: Metoprolol Succinate ER 50 MG TAB.ER.24H PO (09:30)
[2023-05-23] MEDS: Magnesium Oxide 400 MG TABLET 800 MG PO ×2 (09:30→20:35)
[2023-05-23] MEDS: Furosemide 40 MG/4 ML VIAL IVPUSH ×2 (09:30→17:30)
[2023-05-23] MEDS: Sacubitril/Valsartan 24/26 1 TAB TABLET PO ×2 (09:30→20:35)
[2023-05-23] MEDS: Folic Acid 1 MG TABLET PO (09:30)
[2023-05-23] MEDS: Atorvastatin Calcium 20 MG TABLET PO (09:31)
[2023-05-23] MEDS: PHENobarbitaL 30 MG TABLET PO (09:31)
[2023-05-23] MEDS: 0.9 % Sodium Chloride Flush 3 ML SYRINGE IVFLUSH ×2 (09:31→15:32)
[2023-05-23] MEDS: Clopidogrel Bisulfate 75 MG TABLET PO (09:31)
[2023-05-23] MEDS: Acetaminophen 325 MG TABLET 650 MG PO (16:03)
[2023-05-23] MEDS: cefTRIAXone sodium 1 GM in 0.9 % Sodium Chloride 50 ML IV (17:30)
[2023-05-23] MEDS: Warfarin Sodium 5 MG TABLET PO (17:30)
[2023-05-23] MEDS: OLANZapine 5 MG TABLET PO (20:35)
[2023-05-23] MEDS: Zolpidem Tartrate 5 MG TABLET 10 MG PO (20:35)
[2023-05-24] MEDS: 0.9 % Sodium Chloride Flush 3 ML SYRINGE IVFLUSH ×4 (00:17→19:48)
[2023-05-24 03:37] VITALS: BP 112/59; PULSE 102; RESP 20; TEMP 36.4; O2SAT 94
[2023-05-24] MEDS: Doxycycline Monohydrate 100 MG CAPSULE PO ×2 (05:49→17:34)
[2023-05-24] MEDS: Omeprazole 20 MG CAPSULE.DR PO ×2 (05:49→16:04)
[2023-05-24 07:23] LABS: INTERNATIONAL NORM RATIO 1.3 (0.9-1.1); Prothrombin Time 15.7 SEC (11.1-13.3)
--- NOTE | 2023-05-24 07:40 | HO.PM.IMPN ---
Subjective Subjective Date of Service: 05/24/23 Interval History: Seen in follow up for pneumonia, hypoxia, chf Interval history: Dyspnea improved, wants to go home. Seems more confused today- speaks lao/german, spoke lao to provider yesterday, continues speaking german today despite advisement that I need an interpretor. O2 down to 1L NC. -730ml x 24 hours. Afebrile Review of Systems Review of Systems: Yes all other systems are reviewed and are negative Physical Exam Vital Signs: Vital Signs: Last Vital Signs Temp 97.6 F 05/24/23 03:37 Pulse 102 H 05/24/23 03:37 Resp 20 05/24/23 03:37 BP 112/59 L 05/24/23 03:37 Pulse Ox 94 05/24/23 03:37 O2 Del Method Nasal Cannula 05/24/23 03:37 O2 Flow Rate 4 05/24/23 03:37 BMI result Body Mass Index 26.6 Constitutional - Awake and Alert, No apparent distress Eyes - PERRLA, EOMI Neck - +JVD Cardiovascular - S1S2, RRR, No edema Respiratory - Normal lung expansion, Normal respiratory effort, No respiratory distress, expiratory wheeze RUL, otherwise CTA Gastrointestinal - NT / ND; +BS; No rebound or guarding Extremities - no calf tenderness bilaterally, no swelling Skin - Warm/Dry Neurological - Alert & oriented x3 Psychological - Appropriate affect Objective Data Active Medications Acetaminophen (Acetaminophen 325 Mg Tablet) 650 mg PO Q6H PRN PRN Reason: Pain, Mild, fever Last Admin: 05/23/23 16:03 Dose: 650 mg Documented By: SAUNDRA Albuterol Sulfate (Albuterol Sulfate 90 Mcg 8 Gm Inhaler) 2 puff INHALE Q4H PRN PRN Reason: Respiratory Distress Atorvastatin Calcium (Atorvastatin Calcium 20 Mg Tablet) 20 mg PO DAILY [facility] Last Admin: 05/23/23 09:31 Dose: 20 mg Documented By: SAUNDRA Buspirone HCl (Buspirone Hcl 10 Mg Tablet) 10 mg PO TID [facility] Last Admin: 05/23/23 20:35 Dose: 10 mg Documented By: ABDOUL Clopidogrel Bisulfate (Clopidogrel Bisulfate 75 Mg Tablet) 75 mg PO DAILY [facility] Last Admin: 05/23/23 09:31 Dose: 75 mg Documented By: SAUNDRA Doxycycline Monohydrate (Doxycycline Monohydrate 100 Mg Capsule) 100 mg PO Q12H [facility] Last Admin: 05/24/23 05:49 Dose: 100 mg Documented By: LAMBERTO Enoxaparin Sodium (Enoxaparin Sodium 150 Mg/Ml Syringe) 135 mg 1.5 mg/kg (135 mg) SUBCUT Q24H [facility] Last Admin: 05/23/23 09:28 Dose: 135 mg Documented By: SAUNDRA Fluticasone/Vilanterol (Fluticasone/Vilanterol 200/25 Blst.W.Dev) 1 puff INHALE RDAILY [facility] Last Admin: 05/23/23 07:45 Dose: 1 puff Documented By: DIEGO Folic Acid (Folic Acid 1 Mg Tablet) 1 mg PO DAILY [facility] Last Admin: 05/23/23 09:30 Dose: 1 mg Documented By: SAUNDRA Furosemide (Furosemide 40 Mg/4 Ml Vial) 40 mg IVPUSH BID@0900,1800 [facility]; Protocol Last Admin: 05/23/23 17:30 Dose: 40 mg Documented By: SAUNDRA Ceftriaxone Sodium 1 gm/ (Sodium Chloride) 50 mls @ 100 mls/hr IV Q24H [facility] Last Infusion: 05/23/23 18:32 Dose: Infused Documented By: SAUNDRA Lidocaine (Lidocaine 4 % Patch Adh..Patch) 1 patch TRANSDERMA DAILY [facility] Last Admin: 05/23/23 09:32 Dose: Not Given Documented By: SAUNDRA Non-Admin Reason: Patient Refused Magnesium Oxide (Magnesium Oxide 400 Mg Tablet) 800 mg PO BID [facility] Last Admin: 05/23/23 20:35 Dose: 800 mg Documented By: ABDOUL Melatonin (Melatonin 3 Mg Tablet) 6 mg PO BEDTIME PRN PRN Reason: Insomnia Last Admin: 05/22/23 19:56 Dose: 6 mg Documented By: DARREL Metoprolol Succinate (Metoprolol Succinate Er 50 Mg Tab.Er.24h) 50 mg PO DAILY [facility]; Protocol Last Admin: 05/23/23 09:30 Dose: 50 mg Documented By: SAUNDRA Nicotine (Nicotine 21 Mg Patch.Td24) 21 mg TRANSDERMA DAILY [facility] Last Admin: 05/23/23 09:28 Dose: 21 mg Documented By: SAUNDRA Nicotine Polacrilex (Nicotine Polacrilex 2 Mg Gum) 2 mg BUCCAL Q1H PRN PRN Reason: Nicotine Cravings Last Admin: 05/21/23 17:48 Dose: 2 mg Documented By: WINNIE Olanzapine (Olanzapine 5 Mg Tablet) 5 mg PO BEDTIME [facility] Last Admin: 05/23/23 20:35 Dose: 5 mg Documented By: ABDOUL Omeprazole (Omeprazole 20 Mg Capsule.Dr) 20 mg PO BID@0630,1630 [facility] Last Admin: 05/24/23 05:49 Dose: 20 mg Documented By: LAMBERTO Ondansetron HCl (Ondansetron Hcl 4 Mg/2 Ml Vial) 4 mg IVPUSH Q8H PRN PRN Reason: Nausea and Vomiting Last Admin: 05/18/23 08:27 Dose: 4 mg Documented By: HORACIO Pharmacy Consult (Consult Rx Etoh Phenob Im/Po) 1 each MISCELLANE ONCE PRN; Protocol PRN Reason: Consult order Phenobarbital (Phenobarbital 30 Mg Tablet) 30 mg PO DAILY [facility] Stop: 05/24/23 09:01 Last Admin: 05/23/23 09:31 Dose: 30 mg Documented By: SAUNDRA Sacubitril/Valsartan (Sacubitril/Valsartan 1 Tab Tablet) 1 tab PO BID [facility]; Protocol Last Admin: 05/23/23 20:35 Dose: 1 tab Documented By: ABDOUL Senna (Sennosides 8.6 Mg Tablet) 17.2 mg PO BEDTIME PRN PRN Reason: Constipation Sodium Chloride (0.9 % Sodium Chloride Flush 3 Ml Syringe) 3 ml IVFLUSH QSHIFT [facility] Last Admin: 05/24/23 00:17 Dose: 3 ml Documented By: LAMBERTO Thiamine HCl (Thiamine Hcl 100 Mg Tablet) 100 mg PO DAILY [facility] Last Admin: 05/23/23 09:30 Dose: 100 mg Documented By: SAUNDRA Warfarin Sodium (Warfarin Sodium 5 Mg Tablet) 5 mg PO DAILY@1800 [facility] Last Admin: 05/23/23 17:30 Dose: 5 mg Documented By: SAUNDRA Zolpidem Tartrate (Zolpidem Tartrate 5 Mg Tablet) 10 mg PO BEDTIME PRN PRN Reason: Insomnia Last Admin: 02/18/24 20:35 Dose: 10 mg Documented By: ABDOUL Labs 05/21/23 05:22 05/24/23 08:02 Labs: Laboratory Results - last 24 hr 05/24/23 06:29 PT 15.7 H INR 1.3 H Assessment and Plan (1) Alcohol use disorder, severe, dependence: Status: Acute (2) Sepsis: Status: Acute (3) Rhabdomyolysis: Status: Acute (4) EDGAR (acute kidney injury): Status: Acute (5) Supratherapeutic INR: Status: Acute (6) Chronic systolic CHF (congestive heart failure): Status: Acute Plan 63yo M with hx aortic valve replacement anticoagulated on warfarin, AUD with liver disease, hx cocaine abuse disorder, HFrEF s/p AICD, hx intracranial hemorrhage, CAD s/p CABG, mood disorder came in lethargic, confused, and weak found to be hypotensive [resolved with colloid + crystalloid resuscitation] hypoxic with ground-glass infiltrate, negative for Covid-19 or influenza also with EDGAR, rhabdo, hypoNa, supratherapeutic INR may have taken 4 tablets of Ambien in the ED acute hypoxic resp failure due to pneumonia and CHF exacerbation - ceftriaxone + doxycycline 05/17-05/24 - BCx negative @ 48h, pneumococcal urine antigen negative, Legionella urine antigen test pending, PCT coming down, respiratory pathogen panel negative, MRSA swab negative - wean O2 as tolerated acute-chronic HFrEF - TTE 05/21/23: - Normal left ventricular cavity size. There is severely increased left ventricular wall thickness. The left ventricular systolic function is borderline reduced. The visually estimated ejection fraction is between 45-50%. - Mildly increased right ventricular cavity size. There is normal right ventricular systolic function. - A bioprosthetic aortic valve is present. The prosthetic aortic valve appears to be functioning normally. There is no aortic valve stenosis. There is no aortic valve regurgitation. -diuresing well: -730ml x24 hours - Reduce lasix to 40mg daily, monitor BMP/BNP/Mg/I+O -given persistent JVD, cardiology consult placed - continue Entresto + metoprolol succinate AUD with high risk withdrawal - Started on phenobarbital at reduced dose due to possible ambien OD in ED. Completed - continue thiamine, folate - Addiction Medicine consulted, to consider naltrexone on discharge toxic-metabolic encephalopathy - due to EtOH withdrawal, PNA, however seems worse today (05/24) -head ct, ammonia, liver panel, tsh w/ reflex free t4, UA/UC ordered -discontinue ambien. Trazodone ordered in its place -monitor mentation hypoMg - replete IV, recheck level in AM; continue PO maintenance hyponatremia - resolved. did get D5W due to overly quick correction. hypotension - suspected due to medication misuse rather than sepsis. resolved with crystalloid + colloid resuscitation. rhabdomyolysis - CPK <1000, now off IV fluids supratherapeutic INR with mechanical aortic valve - not bleeding. high risk for clot so did not give vit K. INR 1.9 05/20, resumed warfarin, dose increased to 6mg (05/24). INR 1.3 today (05/24). Continue 1.5 mg/kg enoxaparin SQ daily until INR >2 x48h. EDGAR, prerenal - resolved with fluid resuscitation. EtOH liver disease - LFTs improving chronic anemia - due to iron deficiency + chronic disease. FOBT negative CAD s/p CABG - held clopidogrel due to supratherapeutic INR + metoprolol due to hypotension; resumed metoprolol succinate + clopidogrel mood disorder - olanzapine polysubstance abuse - addiction Medicine consult. screen for HBV/HCV/HIV negative VTE ppx - warfarin, enoxaparin dispo - per PT needs STR/IPR In my clinical judgment, the patient requires continued inpatient hospitalization for the following reasons: hypoxia, diuresis, IV ABX, encephalopathy, safe dispo to inpt pul rehab Quality Stroke Does the patient have a stroke diagnosis?: No VTE Prior VTE?: No VTE Risk Level:: Medical - moderate - high VTE Device Contraindication: N/A - Device Ordered VTE Drug Contraindication: Treatment Not Indicated
[2023-05-24 07:45] VITALS: BP 105/68; PULSE 87; RESP 20; TEMP 36.5; O2SAT 98
[2023-05-24] MEDS: Fluticasone/Vilanterol 200/25 BLST.W.DEV 1 PUFF INHALE (08:02)
[2023-05-24 08:04] VITALS: PULSE 101; RESP 18; O2SAT 97
[2023-05-24 08:28] LABS: Anion Gap 12 (12-20); Blood Urea Nitrogen 17 mg/dL (9-16); Calcium 9.3 mg/dL (8.4-10.2); Carbon Dioxide 30 mmol/L (22-29); Chloride 96 mmol/L (96-108); Creatinine Clr Calc Pharmacy 127.6; Estimated Glomerular Filt Rate > 60; Glucose Random 97 mg/dL (60-115); Potassium 3.9 mmol/L (3.3-5.1); Sodium 134 mmol/L (135-145)
[2023-05-24] MEDS: Furosemide 40 MG/4 ML VIAL IVPUSH (08:28)
[2023-05-24] MEDS: PHENobarbitaL 30 MG TABLET PO (08:28)
[2023-05-24] MEDS: Lidocaine 4 % Patch ADH..PATCH 1 PATCH TRANSDERMA (08:28)
[2023-05-24] MEDS: busPIRone HCl 10 MG TABLET PO ×3 (08:28→19:47)
[2023-05-24] MEDS: Atorvastatin Calcium 20 MG TABLET PO (08:28)
[2023-05-24] MEDS: Clopidogrel Bisulfate 75 MG TABLET PO (08:28)
[2023-05-24] MEDS: Thiamine HCL 100 MG TABLET PO (08:28)
[2023-05-24] MEDS: Sacubitril/Valsartan 24/26 1 TAB TABLET PO ×2 (08:29→19:48)
[2023-05-24] MEDS: Folic Acid 1 MG TABLET PO (08:29)
[2023-05-24] MEDS: Magnesium Oxide 400 MG TABLET 800 MG PO ×2 (08:29→19:47)
[2023-05-24] MEDS: Metoprolol Succinate ER 50 MG TAB.ER.24H PO (08:30)
[2023-05-24] MEDS: Enoxaparin Sodium 150 MG/ML SYRINGE 135 MG SUBCUT (08:31)
[2023-05-24] MEDS: Nicotine 21 MG PATCH.TD24 TRANSDERMA (08:39)
--- NOTE | 2023-05-24 10:47 | MHC.CM.PN ---
PT AWAITING STR PLACEMENT, NOT MEDICALLY CLEARED TODAY DUE TO INCREASED CONFUSION [facility] IS THE ONLY FACILITY FOLLOWING AT THIS TIME, UPDATES SENT
[2023-05-24 11:15] VITALS: BP 101/63; PULSE 94; RESP 20; TEMP 36.3; O2SAT 99
[2023-05-24 14:21] LABS: Ammonia 41 umol/L (13-55)
[2023-05-24 14:35] LABS: Alanine Aminotransferase 133 U/L (0-40); Albumin Level 3.2 g/dL (3.5-5.0); Alkaline Phosphatase 226 U/L (39-117); Aspartate Amino Transferase 77 U/L (5-37); Bilirubin Direct 0.2 mg/dL (0.0-0.5); Bilirubin Total 0.3 mg/dL (0.0-1.0); Total Protein 7.1 g/dL (6.5-8.0)
[2023-05-24 14:50] LABS: TSH reflex Free T4 0.57 uIU/mL (0.32-4.0)
[2023-05-24 15:39] VITALS: BP 95/67; PULSE 97; RESP 20; TEMP 36.4; O2SAT 92
[2023-05-24 16:05] LABS: Appearance Urine Clear; Color Urine Yellow; Glucose Urine UA Negative (Negative); Leukocyte Esterase Urine Negative (Negative); Nitrite Urine Negative (Negative); PH 7.5 (5.0-9.0); UMIC TRIGGER UACC YES; Urine Blood Negative (Negative); Urine Ketones Negative (Negative); Urine Protein 30 (1+) mg/dL (Neg-Trace)
[2023-05-24 16:10] LABS: Bacteria Urine None Seen (None Seen); Hyaline Casts Urine 0-2 /LPF (0-2); RBC Urine 0-2 /HPF (0-2); Squamous Epithelial Cell Urine 0-2 /HPF (0-2); WBC Urine 0-5 /HPF (0-5)
[2023-05-24] MEDS: cefTRIAXone sodium 1 GM in 0.9 % Sodium Chloride 50 ML IV (17:35)
[2023-05-24] MEDS: Warfarin Sodium 6 MG TABLET PO (17:35)
[2023-05-24 19:37] VITALS: BP 105/51; PULSE 89; RESP 20; TEMP 37.3; O2SAT 89
[2023-05-24] MEDS: traZODone HCL 50 MG TABLET PO (19:47)
[2023-05-24] MEDS: OLANZapine 5 MG TABLET PO (19:48)
[2023-05-25] VITALS (8 sets, daily range): BP systolic 102–113; BP diastolic 57–69; PULSE 82–98; RESP 16–20; TEMP 36.2–37.1; O2SAT 91–97
[2023-05-25] MEDS: Doxycycline Monohydrate 100 MG CAPSULE PO ×2 (05:26→18:24)
[2023-05-25] MEDS: Omeprazole 20 MG CAPSULE.DR PO ×2 (05:26→14:42)
[2023-05-25 06:49] LABS: INTERNATIONAL NORM RATIO 1.1 (0.9-1.1); Prothrombin Time 13.6 SEC (11.1-13.3)
[2023-05-25 06:56] LABS: Anion Gap 16 (12-20); Blood Urea Nitrogen 17 mg/dL (9-16); Calcium 9.1 mg/dL (8.4-10.2); Carbon Dioxide 27 mmol/L (22-29); Chloride 96 mmol/L (96-108); Estimated Glomerular Filt Rate > 60; Glucose Random 115 mg/dL (60-115); Potassium 3.9 mmol/L (3.3-5.1); Sodium 135 mmol/L (135-145)
[2023-05-25] MEDS: Nicotine 21 MG PATCH.TD24 TRANSDERMA (08:19)
[2023-05-25] MEDS: Enoxaparin Sodium 150 MG/ML SYRINGE 135 MG SUBCUT (08:19)
[2023-05-25] MEDS: Acetaminophen 325 MG TABLET 650 MG PO ×2 (08:20→18:24)
[2023-05-25] MEDS: busPIRone HCl 10 MG TABLET PO ×3 (08:20→20:36)
[2023-05-25] MEDS: Metoprolol Succinate ER 50 MG TAB.ER.24H PO (08:20)
[2023-05-25] MEDS: Magnesium Oxide 400 MG TABLET 800 MG PO ×2 (08:20→20:35)
[2023-05-25] MEDS: Furosemide 40 MG/4 ML VIAL IVPUSH (08:20)
[2023-05-25] MEDS: Atorvastatin Calcium 20 MG TABLET PO (08:20)
[2023-05-25] MEDS: Clopidogrel Bisulfate 75 MG TABLET PO (08:20)
[2023-05-25] MEDS: Folic Acid 1 MG TABLET PO (08:20)
[2023-05-25] MEDS: Thiamine HCL 100 MG TABLET PO (08:20)
[2023-05-25] MEDS: Sacubitril/Valsartan 24/26 1 TAB TABLET PO ×2 (08:20→20:36)
[2023-05-25] MEDS: 0.9 % Sodium Chloride Flush 3 ML SYRINGE IVFLUSH ×2 (08:20→14:46)
[2023-05-25] MEDS: Fluticasone/Vilanterol 200/25 BLST.W.DEV 1 PUFF INHALE (08:34)
[2023-05-25] MEDS: Thiamine HCL 200 MG in 0.9 % Sodium Chloride 100 ML 204 MG IV ×2 (10:27→18:24)
--- NOTE | 2023-05-25 12:35 | MHC.CM.PN ---
Addendum entered by Lita Holman 05/25/23 16:13: This CM received a phone call from pts HCP Elizabeth, she did not speak [place]. This CM called Elizabeth back with system architect. This CM discussed D/C plan with Elizabeth and that PT rec STR and [facility] was the only facility interested/following, also that if [facility] unable to offer a bed, we may have to refer to [facility]. Additionally this CM explained to Elizabeth that the pt is not medically cleared for D/C and has been more confused, Delmar confirms that this is not the pts baseline but he does get confused when he is sick. Original Note: EMR reviewed and per MD rounds, pt is not medically cleared for D/C due to management of pneumonia requiring IV abx, encephalopathy (pt with more confusion today), and hypoxia requiring supplemental O2. CM will continue to follow.
--- NOTE | 2023-05-25 13:02 | HO.PM.IMPN ---
Subjective Subjective Date of Service: 05/25/23 Interval History: pneumonia, hypoxia, chf Review of Systems Dyspnea improving but still sob with mimimum excersion. confusion somewhat improving also subtherapeutic inr O2 down to 1-2L NC. Physical Exam Vital Signs: Vital Signs: Last Vital Signs Temp 97.3 F 05/25/23 11:09 Pulse 89 05/25/23 11:09 Resp 18 05/25/23 11:09 BP 104/63 05/25/23 11:09 Pulse Ox 93 05/25/23 11:09 O2 Del Method Nasal Cannula 05/25/23 11:09 O2 Flow Rate 2 05/25/23 11:09 BMI result Body Mass Index 26.6 Appearance: Alert.? Oriented -mental status improving. cvs: rrr, [id number]. res: clear to auscultation ,no rhonchii or wheezing abd: no rebound or guarding ,nt, bs present. ext pulses present , no cyanosis . neuro: axo3 , nonfocal. Objective Data Active Medications Acetaminophen (Acetaminophen 325 Mg Tablet) 650 mg PO Q6H PRN PRN Reason: Pain, Mild, fever Last Admin: 05/25/23 08:20 Dose: 650 mg Documented By: MIGUEL Albuterol Sulfate (Albuterol Sulfate 90 Mcg 8 Gm Inhaler) 2 puff INHALE Q4H PRN PRN Reason: Respiratory Distress Atorvastatin Calcium (Atorvastatin Calcium 20 Mg Tablet) 20 mg PO DAILY [facility] Last Admin: 05/25/23 08:20 Dose: 20 mg Documented By: MIGUEL Buspirone HCl (Buspirone Hcl 10 Mg Tablet) 10 mg PO TID [facility] Last Admin: 05/25/23 08:20 Dose: 10 mg Documented By: MIGUEL Clopidogrel Bisulfate (Clopidogrel Bisulfate 75 Mg Tablet) 75 mg PO DAILY [facility] Last Admin: 05/25/23 08:20 Dose: 75 mg Documented By: MIGUEL Doxycycline Monohydrate (Doxycycline Monohydrate 100 Mg Capsule) 100 mg PO Q12H [facility] Last Admin: 05/25/23 05:26 Dose: 100 mg Documented By: BEAU Enoxaparin Sodium (Enoxaparin Sodium 150 Mg/Ml Syringe) 135 mg 1.5 mg/kg (135 mg) SUBCUT Q24H [facility] Last Admin: 05/25/23 08:19 Dose: 135 mg Documented By: MIGUEL Fluticasone/Vilanterol (Fluticasone/Vilanterol 200/25 Blst.W.Dev) 1 puff INHALE RDAILY [facility] Last Admin: 05/25/23 08:34 Dose: 1 puff Documented By: RENETTA Folic Acid (Folic Acid 1 Mg Tablet) 1 mg PO DAILY [facility] Last Admin: 05/25/23 08:20 Dose: 1 mg Documented By: MIGUEL Furosemide (Furosemide 40 Mg/4 Ml Vial) 40 mg IVPUSH DAILY [facility]; Protocol Last Admin: 05/25/23 08:20 Dose: 40 mg Documented By: MIGUEL Ceftriaxone Sodium 1 gm/ (Sodium Chloride) 50 mls @ 100 mls/hr IV Q24H [facility] Last Infusion: 05/24/23 19:39 Dose: Infused Documented By: BEAU Thiamine HCl 200 mg/ Sodium (Chloride) 102 mls @ 204 mls/hr IV Q8H [facility] Last Infusion: 05/25/23 11:05 Dose: Infused Documented By: MIGUEL Lidocaine (Lidocaine 4 % Patch Adh..Patch) 1 patch TRANSDERMA DAILY [facility] Last Admin: 05/25/23 08:27 Dose: Not Given Documented By: MIGUEL Non-Admin Reason: Patient Refused Magnesium Oxide (Magnesium Oxide 400 Mg Tablet) 800 mg PO BID [facility] Last Admin: 05/25/23 08:20 Dose: 800 mg Documented By: MIGUEL Melatonin (Melatonin 3 Mg Tablet) 6 mg PO BEDTIME PRN PRN Reason: Insomnia Last Admin: 05/22/23 19:56 Dose: 6 mg Documented By: DARREL Metoprolol Succinate (Metoprolol Succinate Er 50 Mg Tab.Er.24h) 50 mg PO DAILY [facility]; Protocol Last Admin: 05/25/23 08:20 Dose: 50 mg Documented By: MIGUEL Nicotine (Nicotine 21 Mg Patch.Td24) 21 mg TRANSDERMA DAILY [facility] Last Admin: 05/25/23 08:19 Dose: 21 mg Documented By: MIGUEL Nicotine Polacrilex (Nicotine Polacrilex 2 Mg Gum) 2 mg BUCCAL Q1H PRN PRN Reason: Nicotine Cravings Last Admin: 05/21/23 17:48 Dose: 2 mg Documented By: WINNIE Olanzapine (Olanzapine 5 Mg Tablet) 5 mg PO BEDTIME [facility] Last Admin: 05/24/23 19:48 Dose: 5 mg Documented By: BEAU Omeprazole (Omeprazole 20 Mg Capsule.Dr) 20 mg PO BID@0630,1630 [facility] Last Admin: 05/25/23 05:26 Dose: 20 mg Documented By: BEAU Ondansetron HCl (Ondansetron Hcl 4 Mg/2 Ml Vial) 4 mg IVPUSH Q8H PRN PRN Reason: Nausea and Vomiting Last Admin: 05/18/23 08:27 Dose: 4 mg Documented By: HORACIO Pharmacy Consult (Consult Rx Etoh Phenob Im/Po) 1 each MISCELLANE ONCE PRN; Protocol PRN Reason: Consult order Sacubitril/Valsartan (Sacubitril/Valsartan 1 Tab Tablet) 1 tab PO BID [facility]; Protocol Last Admin: 05/25/23 08:20 Dose: 1 tab Documented By: MIGUEL Senna (Sennosides 8.6 Mg Tablet) 17.2 mg PO BEDTIME PRN PRN Reason: Constipation Sodium Chloride (0.9 % Sodium Chloride Flush 3 Ml Syringe) 3 ml IVFLUSH QSHIFT [facility] Last Admin: 05/25/23 08:20 Dose: 3 ml Documented By: MIGUEL Thiamine HCl (Thiamine Hcl 100 Mg Tablet) 100 mg PO DAILY [facility] Last Admin: 05/25/23 08:20 Dose: 100 mg Documented By: MIGUEL Trazodone HCl (Trazodone Hcl 50 Mg Tablet) 50 mg PO BEDTIME MRX1 [facility] Last Admin: 05/24/23 22:02 Dose: Not Given Documented By: BEAU Non-Admin Reason: Duplicate Order Warfarin Sodium (Warfarin Sodium 6 Mg Tablet) 6 mg PO DAILY@1800 [facility] Last Admin: 05/24/23 17:35 Dose: 6 mg Documented By: ZAN Warfarin Sodium (Warfarin Sodium 0.5 Mg Halftab) 0.5 mg PO DAILY@1800 [facility] Labs 05/21/23 05:22 05/25/23 05:52 Labs: Laboratory Results - last 24 hr 05/24/23 05/24/23 05/25/23 14:02 15:58 05:52 PT 13.6 H INR 1.1 Anion Gap 16 Estim Creat Clear Calc 122.0 Estimated GFR > 60 Random Glucose 115 Calcium 9.1 Total Bilirubin 0.3 Direct Bilirubin 0.2 AST 77 H ALT 133 H Alkaline Phosphatase 226 H Ammonia 41 Total Protein 7.1 Albumin 3.2 L TSH 0.57 Urine Color Yellow Urine Appearance Clear Urine pH 7.5 Ur Specific [place] 1.020 Urine Protein 30 (1+) H Urine Glucose (UA) Negative Urine Ketones Negative Urine Blood Negative Urine Nitrite Negative Ur Leukocyte Esterase Negative Urine RBC 0-2 Urine WBC 0-5 Ur Squamous Epith Cells 0-2 Urine Bacteria None Seen Hyaline Casts 0-2 Assessment and Plan (1) EDGAR (acute kidney injury): Status: Acute (2) Supratherapeutic INR: Status: Acute (3) Alcohol use disorder, severe, dependence: Status: Acute Plan 63yo M with hx aortic valve replacement anticoagulated on warfarin, AUD with liver disease, hx cocaine abuse disorder, HFrEF s/p AICD, hx intracranial hemorrhage, CAD s/p CABG, mood disorder came in lethargic, confused, and weak found to be hypotensive [resolved with colloid + crystalloid resuscitation],hypoxic with ground-glass infiltrate, negative for Covid-19 or influenza,also with EDGAR, rhabdo, hypoNa, supratherapeutic INR.may have taken 4 tablets of Ambien in the ED acute hypoxic resp failure due to pneumonia and CHF exacerbation ceftriaxone + doxycycline 05/17-05/24, BCx negative @ 48h, pneumococcal urine antigen negative, Legionella urine antigen test pending, PCT coming down, respiratory pathogen panel negative, MRSA swab negative, wean O2 as tolerated. acute-chronic HFrEF - TTE 05/21/23:Normal left ventricular cavity size. There is severely increased left ventricular wall thickness. The left ventricular systolic function is borderline reduced. The visually estimated ejection fraction is between 45-50%. Mildly increased right ventricular cavity size. There is normal right ventricular systolic function. A bioprosthetic aortic valve is present. The prosthetic aortic valve appears to be functioning normally. There is no aortic valve stenosis. There is no aortic valve regurgitation. plan i/o: 16/02 liter continue lasix 40mg daily, monitor BMP/BNP/Mg/I+O, Entresto + metoprolol succinate. AUD with high risk withdrawal- Started on phenobarbital at reduced dose due to possible ambien OD in ED. continue thiamine, folate Addiction Medicine consulted, to consider naltrexone on discharge toxic-metabolic encephalopathy due to EtOH withdrawal, PNA, however seems mental status improivng (05/25) head ct, ammonia-seems fine,lfts;s improving,ua negative. discontinue ambien, on Trazodone. -monitor mentation hypoMg- repleted and resolved. hyponatremia:resolved. hypotension:suspected due to medication misuse rather than sepsis. resolved with crystalloid + colloid resuscitation. rhabdomyolysis CPK <1000, off IV fluids supratherapeutic INR with mechanical aortic valve not bleeding. high risk for clot so did not give vit K. INR 1.9 05/20, resumed warfarin, dose increased to 6.5mg (05/25) today. INR 1.1today Continue 1.5 mg/kg enoxaparin SQ daily until INR >2 x48h. EDGAR, prerenal: resolved with fluid resuscitation. EtOH liver disease- LFTs improving chronic anemia- due to iron deficiency + chronic disease. FOBT negative CAD s/p CABG:resumed metoprolol succinate + clopidogrel mood disorder- olanzapine polysubstance abuse- addiction Medicine consult. screen for HBV/HCV/HIV negative VTE ppx- warfarin, enoxaparin dispo- per PT needs STR/IPR In my clinical judgment, the patient requires continued inpatient hospitalization for the following reasons: hypoxia, diuresis, IV ABX, encephalopathy, safe dispo to inpt pul rehab Quality Stroke Does the patient have a stroke diagnosis?: No VTE Prior VTE?: No VTE Risk Level:: Medical - moderate - high VTE Device Contraindication: N/A - Device Ordered VTE Drug Contraindication: Treatment Not Indicated
[2023-05-25] MEDS: Warfarin Sodium 6 MG TABLET PO (18:24)
[2023-05-25] MEDS: cefTRIAXone sodium 1 GM in 0.9 % Sodium Chloride 50 ML IV (18:25)
--- NOTE | 2023-05-25 18:40 | PC.NURSE ---
1800 warfarin 0.5mg dose late d/t med not available in hospital per facility search. Pharmacy contacted x2 at [phone] and [phone]. [place] [id number] and admin to pt per JUN. safety precautions remain in place, call lambert within reach.
[2023-05-25] MEDS: Warfarin Sodium 0.5 MG HALFTAB PO (18:43)
[2023-05-25] MEDS: traZODone HCL 50 MG TABLET PO ×2 (20:35→23:33)
[2023-05-25] MEDS: OLANZapine 5 MG TABLET PO (20:36)
[2023-05-25] MEDS: Melatonin 3 MG TABLET 6 MG PO (23:32)
[2023-05-26] VITALS (10 sets, daily range): BP systolic 112–133; BP diastolic 57–68; PULSE 72–88; RESP 16–20; TEMP 36.1–36.6; O2SAT 88–98
[2023-05-26] MEDS: Thiamine HCL 200 MG in 0.9 % Sodium Chloride 100 ML 204 MG IV ×3 (04:53→18:00)
[2023-05-26] MEDS: Omeprazole 20 MG CAPSULE.DR PO ×2 (05:07→16:59)
[2023-05-26] MEDS: Doxycycline Monohydrate 100 MG CAPSULE PO ×2 (05:07→17:57)
[2023-05-26 08:01] LABS: Prothrombin Time 12.3 SEC (11.1-13.3)
[2023-05-26] MEDS: Fluticasone/Vilanterol 200/25 BLST.W.DEV 1 PUFF INHALE (08:34)
[2023-05-26 08:36] LABS: Anion Gap 13 (12-20); Blood Urea Nitrogen 16 mg/dL (9-16); Calcium 9.7 mg/dL (8.4-10.2); Carbon Dioxide 27 mmol/L (22-29); Chloride 99 mmol/L (96-108); Creatinine Clr Calc Pharmacy 118.5; Estimated Glomerular Filt Rate > 60; Glucose Random 101 mg/dL (60-115); Potassium 4.2 mmol/L (3.3-5.1); Sodium 135 mmol/L (135-145)
[2023-05-26] MEDS: Acetaminophen 325 MG TABLET 650 MG PO (08:57)
[2023-05-26] MEDS: Atorvastatin Calcium 20 MG TABLET PO (08:58)
[2023-05-26] MEDS: busPIRone HCl 10 MG TABLET PO ×3 (08:58→19:45)
[2023-05-26] MEDS: Metoprolol Succinate ER 50 MG TAB.ER.24H PO (08:58)
[2023-05-26] MEDS: Thiamine HCL 100 MG TABLET PO (08:58)
[2023-05-26] MEDS: Nicotine 21 MG PATCH.TD24 TRANSDERMA (08:58)
[2023-05-26] MEDS: Magnesium Oxide 400 MG TABLET 800 MG PO ×2 (08:58→19:45)
[2023-05-26] MEDS: Sacubitril/Valsartan 24/26 1 TAB TABLET PO ×2 (08:58→19:45)
[2023-05-26] MEDS: Clopidogrel Bisulfate 75 MG TABLET PO (08:58)
[2023-05-26] MEDS: Folic Acid 1 MG TABLET PO (08:58)
[2023-05-26] MEDS: Furosemide 40 MG/4 ML VIAL IVPUSH (08:59)
[2023-05-26] MEDS: Enoxaparin Sodium 150 MG/ML SYRINGE 135 MG SUBCUT (08:59)
[2023-05-26] MEDS: 0.9 % Sodium Chloride Flush 3 ML SYRINGE IVFLUSH ×4 (09:00→23:16)
--- NOTE | 2023-05-26 14:17 | MHC.CM.PN ---
EMR reviewed and per MD rounds, pt is not medically cleared for D/C due to pt remaining confused. Pt is improving and its anticipated that pt will be ready for D/C in 1 or 2 more days. Emeli following for STR bed. CM will continue to follow.
--- NOTE | 2023-05-26 14:55 | P.PNIM_ITS ---
Subjective Subjective Date of Service: 05/26/23 Interval History: pneumonia, hypoxia, chf Review of Systems Patient shortness of breath improving, Mental status improving but still somewhat confused. Physical Exam 2 Vital Signs: Vital Signs: Last Vital Signs Temp 97.6 F 05/26/23 12:00 Pulse 88 05/26/23 12:00 Resp 16 05/26/23 12:00 BP 113/65 05/26/23 12:00 Pulse Ox 96 05/26/23 12:00 O2 Del Method Room Air 05/26/23 12:00 O2 Flow Rate 96 05/26/23 12:00 BMI result Body Mass Index 26.6 Appearance: Alert.? Oriented -mental status improving. cvs: rrr, [id number]. res: clear to auscultation ,no rhonchii or wheezing abd: no rebound or guarding ,nt, bs present. ext pulses present , no cyanosis . neuro: axo3 , nonfoc Objective Data Active Medications Acetaminophen (Acetaminophen 325 Mg Tablet) 650 mg PO Q6H PRN PRN Reason: Pain, Mild, fever Last Admin: 05/26/23 08:57 Dose: 650 mg Documented By: SANG Albuterol Sulfate (Albuterol Sulfate 90 Mcg 8 Gm Inhaler) 2 puff INHALE Q4H PRN PRN Reason: Respiratory Distress Atorvastatin Calcium (Atorvastatin Calcium 20 Mg Tablet) 20 mg PO DAILY [facility] Last Admin: 05/26/23 08:58 Dose: 20 mg Documented By: SNAG Buspirone HCl (Buspirone Hcl 10 Mg Tablet) 10 mg PO TID [facility] Last Admin: 05/26/23 14:28 Dose: 10 mg Documented By: SANG Clopidogrel Bisulfate (Clopidogrel Bisulfate 75 Mg Tablet) 75 mg PO DAILY [facility] Last Admin: 05/26/23 08:58 Dose: 75 mg Documented By: SANG Doxycycline Monohydrate (Doxycycline Monohydrate 100 Mg Capsule) 100 mg PO Q12H [facility] Last Admin: 05/26/23 05:07 Dose: 100 mg Documented By: TEA Enoxaparin Sodium (Enoxaparin Sodium 150 Mg/Ml Syringe) 135 mg 1.5 mg/kg (135 mg) SUBCUT Q24H [facility] Last Admin: 05/26/23 08:59 Dose: 135 mg Documented By: SANG Fluticasone/Vilanterol (Fluticasone/Vilanterol 200/25 Blst.W.Dev) 1 puff INHALE RDAILY [facility] Last Admin: 05/26/23 08:34 Dose: 1 puff Documented By: ANGELO Folic Acid (Folic Acid 1 Mg Tablet) 1 mg PO DAILY [facility] Last Admin: 05/26/23 08:58 Dose: 1 mg Documented By: SANG Furosemide (Furosemide 40 Mg/4 Ml Vial) 40 mg IVPUSH DAILY [facility]; Protocol Last Admin: 05/26/23 08:59 Dose: 40 mg Documented By: SANG Ceftriaxone Sodium 1 gm/ (Sodium Chloride) 50 mls @ 100 mls/hr IV Q24H [facility] Last Infusion: 05/25/23 19:08 Dose: Infused Documented By: MIGUEL Thiamine HCl 200 mg/ Sodium (Chloride) 102 mls @ 204 mls/hr IV Q8H [facility] Last Infusion: 05/26/23 12:22 Dose: Infused Documented By: SANG Lidocaine (Lidocaine 4 % Patch Adh..Patch) 1 patch TRANSDERMA DAILY [facility] Last Admin: 05/26/23 09:00 Dose: Not Given Documented By: SANG Non-Admin Reason: Patient Refused Magnesium Oxide (Magnesium Oxide 400 Mg Tablet) 800 mg PO BID [facility] Last Admin: 05/26/23 08:58 Dose: 800 mg Documented By: SANG Melatonin (Melatonin 3 Mg Tablet) 6 mg PO BEDTIME PRN PRN Reason: Insomnia Last Admin: 05/25/23 23:32 Dose: 6 mg Documented By: TEA Metoprolol Succinate (Metoprolol Succinate Er 50 Mg Tab.Er.24h) 50 mg PO DAILY [facility]; Protocol Last Admin: 05/26/23 08:58 Dose: 50 mg Documented By: SANG Nicotine (Nicotine 21 Mg Patch.Td24) 21 mg TRANSDERMA DAILY [facility] Last Admin: 05/26/23 08:58 Dose: 21 mg Documented By: SANG Nicotine Polacrilex (Nicotine Polacrilex 2 Mg Gum) 2 mg BUCCAL Q1H PRN PRN Reason: Nicotine Cravings Last Admin: 05/21/23 17:48 Dose: 2 mg Documented By: HO.GUILMAT Olanzapine (Olanzapine 5 Mg Tablet) 5 mg PO BEDTIME [facility] Last Admin: 05/25/23 20:36 Dose: 5 mg Documented By: TEA Omeprazole (Omeprazole 20 Mg Capsule.) 20 mg PO BID@0630,1630 [facility] Last Admin: 05/26/23 05:07 Dose: 20 mg Documented By: TEA Ondansetron HCl (Ondansetron Hcl 4 Mg/2 Ml Vial) 4 mg IVPUSH Q8H PRN PRN Reason: Nausea and Vomiting Last Admin: 05/18/23 08:27 Dose: 4 mg Documented By: HORACIO Pharmacy Consult (Consult Rx Etoh Phenob Im/Po) 1 each MISCELLANE ONCE PRN; Protocol PRN Reason: Consult order Sacubitril/Valsartan (Sacubitril/Valsartan 1 Tab Tablet) 1 tab PO BID [facility]; Protocol Last Admin: 05/26/23 08:58 Dose: 1 tab Documented By: SANG Senna (Sennosides 8.6 Mg Tablet) 17.2 mg PO BEDTIME PRN PRN Reason: Constipation Sodium Chloride (0.9 % Sodium Chloride Flush 3 Ml Syringe) 3 ml IVFLUSH QSHIFT [facility] Last Admin: 05/26/23 09:00 Dose: 3 ml Documented By: SANG Thiamine HCl (Thiamine Hcl 100 Mg Tablet) 100 mg PO DAILY [facility] Last Admin: 05/26/23 08:58 Dose: 100 mg Documented By: SANG Trazodone HCl (Trazodone Hcl 50 Mg Tablet) 50 mg PO BEDTIME MRX1 [facility] Last Admin: 05/25/23 23:33 Dose: 50 mg Documented By: TEA Warfarin Sodium (Warfarin Sodium 6 Mg Tablet) 6 mg PO DAILY@1800 [facility] Last Admin: 05/25/23 18:24 Dose: 6 mg Documented By: MIGUEL Warfarin Sodium (Warfarin Sodium 0.5 Mg Halftab) 0.5 mg PO DAILY@1800 [facility] Last Admin: 05/25/23 18:43 Dose: 0.5 mg Documented By: MIGUEL Labs 05/21/23 05:22 05/26/23 07:11 Labs: Laboratory Results - last 24 hr 05/26/23 07:11 Hold Purple Top SEE NOTE PT 12.3 INR 1.0 Anion Gap 13 Estim Creat Clear Calc 118.5 Estimated GFR > 60 Random Glucose 101 Calcium 9.7 D Assessment and Plan (1) EDGAR (acute kidney injury): Status: Acute (2) Supratherapeutic INR: Status: Acute (3) Alcohol use disorder, severe, dependence: Status: Acute Plan 63yo M with hx aortic valve replacement anticoagulated on warfarin, AUD with liver disease, hx cocaine abuse disorder, HFrEF s/p AICD, hx intracranial hemorrhage, CAD s/p CABG, mood disorder came in lethargic, confused, and weak found to be hypotensive [resolved with colloid + crystalloid resuscitation],hypoxic with ground-glass infiltrate, negative for Covid-19 or influenza,also with EDGAR, rhabdo, hypoNa, supratherapeutic INR.may have taken 4 tablets of Ambien in the ED acute hypoxic resp failure due to pneumonia and CHF exacerbation ceftriaxone + doxycycline 05/17-05/24, BCx negative @ 48h, pneumococcal urine antigen negative, Legionella urine antigen test pending, PCT coming down, respiratory pathogen panel negative, MRSA swab negative, wean O2 as tolerated. acute-chronic HFrEF - TTE 05/21/23:Normal left ventricular cavity size. There is severely increased left ventricular wall thickness. The left ventricular systolic function is borderline reduced. The visually estimated ejection fraction is between 45-50%. Mildly increased right ventricular cavity size. There is normal right ventricular systolic function. A bioprosthetic aortic valve is present. The prosthetic aortic valve appears to be functioning normally. There is no aortic valve stenosis. There is no aortic valve regurgitation. plan i/o: 16/02 liter continue lasix 40mg daily, monitor BMP/BNP/Mg/I+O, Entresto + metoprolol succinate. AUD with high risk withdrawal- Started on phenobarbital at reduced dose due to possible ambien OD in ED. continue thiamine, folate Addiction Medicine consulted, to consider naltrexone on discharge toxic-metabolic encephalopathy due to EtOH withdrawal, PNA, however seems mental status improivng (05/25) head ct, ammonia-seems fine,lfts;s improving,ua negative. discontinue ambien, on Trazodone,also added iv thiamine . -monitor mentation hypoMg- repleted and resolved. hyponatremia:resolved. hypotension:suspected due to medication misuse rather than sepsis. resolved with crystalloid + colloid resuscitation. rhabdomyolysis CPK <1000, off IV fluids supratherapeutic INR with mechanical aortic valve not bleeding. high risk for clot so did not give vit K. INR 1.9 05/20, resumed warfarin, dose increased to 6.5mg (05/25) today. INR 1.1today Continue 1.5 mg/kg enoxaparin SQ daily until INR >2 x48h. EDGAR, prerenal: resolved with fluid resuscitation. EtOH liver disease- LFTs improving chronic anemia- due to iron deficiency + chronic disease. FOBT negative CAD s/p CABG:resumed metoprolol succinate + clopidogrel mood disorder- olanzapine polysubstance abuse- addiction Medicine consult. screen for HBV/HCV/HIV negative VTE ppx- warfarin, enoxaparin dispo- per PT needs STR/IPR In my clinical judgment, the patient requires continued inpatient hospitalization for the following reasons: hypoxia, diuresis, IV ABX, encephalopathy, safe dispo to inpt pulm rehab Quality Stroke Does the patient have a stroke diagnosis?: No VTE Prior VTE?: No VTE Risk Level:: Medical - moderate - high VTE Device Contraindication: N/A - Device Ordered VTE Drug Contraindication: Treatment Not Indicated
[2023-05-26] MEDS: Warfarin Sodium 6 MG TABLET PO (17:58)
[2023-05-26] MEDS: Warfarin Sodium 0.5 MG HALFTAB PO (17:58)
[2023-05-26] MEDS: cefTRIAXone sodium 1 GM in 0.9 % Sodium Chloride 50 ML IV (17:59)
[2023-05-26] MEDS: OLANZapine 5 MG TABLET PO (19:45)
[2023-05-26] MEDS: traZODone HCL 50 MG TABLET PO ×2 (19:45→23:16)
[2023-05-27] VITALS (7 sets, daily range): BP systolic 107–128; BP diastolic 57–68; PULSE 71–85; RESP 16–20; TEMP 36.1–36.9; O2SAT 93–98
[2023-05-27] MEDS: Melatonin 3 MG TABLET 6 MG PO ×2 (00:54→20:04)
[2023-05-27] MEDS: Thiamine HCL 200 MG in 0.9 % Sodium Chloride 100 ML 204 MG IV ×3 (01:56→17:48)
[2023-05-27] MEDS: Doxycycline Monohydrate 100 MG CAPSULE PO ×2 (05:54→17:48)
[2023-05-27] MEDS: Omeprazole 20 MG CAPSULE.DR PO ×2 (05:54→15:00)
[2023-05-27 05:58] LABS: Legionella Ag Urine Not Detected (Not Detected)
[2023-05-27 07:07] LABS: Prothrombin Time 12.1 SEC (11.1-13.3)
[2023-05-27] MEDS: Fluticasone/Vilanterol 200/25 BLST.W.DEV 1 PUFF INHALE (08:33)
[2023-05-27] MEDS: 0.9 % Sodium Chloride Flush 3 ML SYRINGE IVFLUSH ×2 (09:14→16:54)
[2023-05-27] MEDS: Enoxaparin Sodium 150 MG/ML SYRINGE 135 MG SUBCUT (09:15)
[2023-05-27] MEDS: Nicotine 21 MG PATCH.TD24 TRANSDERMA (09:15)
[2023-05-27] MEDS: Furosemide 40 MG/4 ML VIAL IVPUSH (09:17)
[2023-05-27] MEDS: Folic Acid 1 MG TABLET PO (09:18)
[2023-05-27] MEDS: Thiamine HCL 100 MG TABLET PO (09:18)
[2023-05-27] MEDS: Clopidogrel Bisulfate 75 MG TABLET PO (09:18)
[2023-05-27] MEDS: Sacubitril/Valsartan 24/26 1 TAB TABLET PO ×2 (09:18→20:03)
[2023-05-27] MEDS: busPIRone HCl 10 MG TABLET PO ×3 (09:18→20:03)
[2023-05-27] MEDS: Magnesium Oxide 400 MG TABLET 800 MG PO ×2 (09:18→20:03)
[2023-05-27] MEDS: Atorvastatin Calcium 20 MG TABLET PO (09:18)
[2023-05-27] MEDS: Metoprolol Succinate ER 50 MG TAB.ER.24H PO (09:18)
[2023-05-27] MEDS: Acetaminophen 325 MG TABLET 650 MG PO (09:23)
--- NOTE | 2023-05-27 13:43 | HO.PM.IMPN ---
Subjective Subjective Date of Service: 05/27/23 Interval History: pneumonia, hypoxia, chf Review of Systems sob and mental status improving no fever or chills Physical Exam Vital Signs: Vital Signs: Last Vital Signs Temp 97.4 F 05/27/23 11:45 Pulse 85 05/27/23 11:45 Resp 18 05/27/23 11:45 BP 107/60 05/27/23 11:45 Pulse Ox 94 05/27/23 11:45 O2 Del Method Room Air 05/27/23 11:45 O2 Flow Rate 2 05/27/23 04:00 BMI result Body Mass Index 26.6 Appearance: Alert.? Oriented -mental status improving. cvs: rrr, [id number]. res: clear to auscultation ,no rhonchii or wheezing abd: no rebound or guarding ,nt, bs present. ext pulses present , no cyanosis . neuro: axo2 ( does not month),moves all ext Objective Data Active Medications Acetaminophen (Acetaminophen 325 Mg Tablet) 650 mg PO Q6H PRN PRN Reason: Pain, Mild, fever Last Admin: 05/27/23 09:23 Dose: 650 mg Documented By: LIZ Albuterol Sulfate (Albuterol Sulfate 90 Mcg 8 Gm Inhaler) 2 puff INHALE Q4H PRN PRN Reason: Respiratory Distress Atorvastatin Calcium (Atorvastatin Calcium 20 Mg Tablet) 20 mg PO DAILY [facility] Last Admin: 05/27/23 09:18 Dose: 20 mg Documented By: LIZ Buspirone HCl (Buspirone Hcl 10 Mg Tablet) 10 mg PO TID [facility] Last Admin: 05/27/23 09:18 Dose: 10 mg Documented By: LIZ Clopidogrel Bisulfate (Clopidogrel Bisulfate 75 Mg Tablet) 75 mg PO DAILY [facility] Last Admin: 05/27/23 09:18 Dose: 75 mg Documented By: LIZ Doxycycline Monohydrate (Doxycycline Monohydrate 100 Mg Capsule) 100 mg PO Q12H [facility] Last Admin: 05/27/23 05:54 Dose: 100 mg Documented By: JINNY Enoxaparin Sodium (Enoxaparin Sodium 150 Mg/Ml Syringe) 135 mg 1.5 mg/kg (135 mg) SUBCUT Q24H [facility] Last Admin: 05/27/23 09:15 Dose: 135 mg Documented By: LIZ Fluticasone/Vilanterol (Fluticasone/Vilanterol 200/25 Blst.W.Dev) 1 puff INHALE RDAILY [facility] Last Admin: 05/27/23 08:33 Dose: 1 puff Documented By: BOUCHRA Folic Acid (Folic Acid 1 Mg Tablet) 1 mg PO DAILY [facility] Last Admin: 05/27/23 09:18 Dose: 1 mg Documented By: LIZ Furosemide (Furosemide 40 Mg/4 Ml Vial) 40 mg IVPUSH DAILY [facility]; Protocol Last Admin: 05/27/23 09:17 Dose: 40 mg Documented By: LIZ Ceftriaxone Sodium 1 gm/ (Sodium Chloride) 50 mls @ 100 mls/hr IV Q24H [facility] Last Infusion: 05/26/23 18:50 Dose: Infused Documented By: DIOGO Thiamine HCl 200 mg/ Sodium (Chloride) 102 mls @ 204 mls/hr IV Q8H [facility] Last Infusion: 05/27/23 10:11 Dose: Infused Documented By: LIZ Lidocaine (Lidocaine 4 % Patch Adh..Patch) 1 patch TRANSDERMA DAILY [facility] Last Admin: 05/27/23 09:19 Dose: Not Given Documented By: LIZ Non-Admin Reason: Patient Refused Magnesium Oxide (Magnesium Oxide 400 Mg Tablet) 800 mg PO BID [facility] Last Admin: 05/27/23 09:18 Dose: 800 mg Documented By: LIZ Melatonin (Melatonin 3 Mg Tablet) 6 mg PO BEDTIME PRN PRN Reason: Insomnia Last Admin: 05/27/23 00:54 Dose: 6 mg Documented By: JINNY Metoprolol Succinate (Metoprolol Succinate Er 50 Mg Tab.Er.24h) 50 mg PO DAILY [facility]; Protocol Last Admin: 05/27/23 09:18 Dose: 50 mg Documented By: LIZ Nicotine (Nicotine 21 Mg Patch.Td24) 21 mg TRANSDERMA DAILY [facility] Last Admin: 05/27/23 09:15 Dose: 21 mg Documented By: LIZ Nicotine Polacrilex (Nicotine Polacrilex 2 Mg Gum) 2 mg BUCCAL Q1H PRN PRN Reason: Nicotine Cravings Last Admin: 05/21/23 17:48 Dose: 2 mg Documented By: WINNIE Olanzapine (Olanzapine 5 Mg Tablet) 5 mg PO BEDTIME [facility] Last Admin: 05/26/23 19:45 Dose: 5 mg Documented By: DIOGO Omeprazole (Omeprazole 20 Mg Capsule.) 20 mg PO BID@0630,1630 [facility] Last Admin: 05/27/23 05:54 Dose: 20 mg Documented By: JINNY Ondansetron HCl (Ondansetron Hcl 4 Mg/2 Ml Vial) 4 mg IVPUSH Q8H PRN PRN Reason: Nausea and Vomiting Last Admin: 05/18/23 08:27 Dose: 4 mg Documented By: HORACIO Pharmacy Consult (Consult Rx Etoh Phenob Im/Po) 1 each MISCELLANE ONCE PRN; Protocol PRN Reason: Consult order Sacubitril/Valsartan (Sacubitril/Valsartan 1 Tab Tablet) 1 tab PO BID [facility]; Protocol Last Admin: 05/27/23 09:18 Dose: 1 tab Documented By: LIZ Senna (Sennosides 8.6 Mg Tablet) 17.2 mg PO BEDTIME PRN PRN Reason: Constipation Sodium Chloride (0.9 % Sodium Chloride Flush 3 Ml Syringe) 3 ml IVFLUSH QSHIFT [facility] Last Admin: 05/27/23 09:14 Dose: 3 ml Documented By: LIZ Thiamine HCl (Thiamine Hcl 100 Mg Tablet) 100 mg PO DAILY [facility] Last Admin: 05/27/23 09:18 Dose: 100 mg Documented By: LIZ Trazodone HCl (Trazodone Hcl 50 Mg Tablet) 50 mg PO BEDTIME MRX1 [facility] Last Admin: 05/26/23 23:16 Dose: 50 mg Documented By: JINNY Warfarin Sodium 1 mg/ Warfarin (Sodium 6 mg) 7 mg PO DAILY@1800 [facility] Labs 05/21/23 05:22 05/26/23 07:11 Labs: Laboratory Results - last 24 hr 05/17/23 05/27/23 22:00 06:11 PT 12.1 INR 1.0 Ur L.pneumophila Ag Not Detected Assessment and Plan (1) EDGAR (acute kidney injury): Status: Acute (2) Supratherapeutic INR: Status: Acute (3) Alcohol use disorder, severe, dependence: Status: Acute Plan 63yo M with hx aortic valve replacement anticoagulated on warfarin, AUD with liver disease, hx cocaine abuse disorder, HFrEF s/p AICD, hx intracranial hemorrhage, CAD s/p CABG, mood disorder came in lethargic, confused, and weak found to be hypotensive [resolved with colloid + crystalloid resuscitation],hypoxic with ground-glass infiltrate, negative for Covid-19 or influenza,also with EDGAR, rhabdo, hypoNa, supratherapeutic INR.may have taken 4 tablets of Ambien in the ED acute hypoxic resp failure due to pneumonia and CHF exacerbation BCx negative @ 48h, pneumococcal urine antigen negative, Legionella urine antigen test neg, PCT coming down, respiratory pathogen panel negative, MRSA swab negative,off oxygen. on ceftriaxone + doxycycline 05/17-05/24. acute-chronic HFrEF - TTE 05/21/23:Normal left ventricular cavity size. There is severely increased left ventricular wall thickness. The left ventricular systolic function is borderline reduced. The visually estimated ejection fraction is between 45-50%. Mildly increased right ventricular cavity size. There is normal right ventricular systolic function. A bioprosthetic aortic valve is present. The prosthetic aortic valve appears to be functioning normally. There is no aortic valve stenosis. There is no aortic valve regurgitation. plan i/o: liter continue lasix 40mg daily, monitor BMP/BNP/Mg/I+O, Entresto + metoprolol succinate. AUD with high risk withdrawal- Started on phenobarbital at reduced dose due to possible ambien OD in ED. continue thiamine, folate,Addiction Medicine consulted, to consider naltrexone on discharge toxic-metabolic encephalopathy due to EtOH withdrawal, PNA. head ct, ammonia-seems fine,lfts;s improving,ua negative. however seems mental status improivng (05/25) discontinue ambien, on Trazodone, iv thiamine(05/25) ,monitor mentation. hypoMg and hyponatremia:resolved. hypotension:suspected due to medication misuse rather than sepsis. resolved with crystalloid + colloid resuscitation. rhabdomyolysis:CPK <1000, off IV fluids supratherapeutic INR with mechanical aortic valve not bleeding. high risk for clot so did not give vit K. INR 1.1 still subtherapeutic. warfarin adjusted to 7 mg daily and continue 1.5 mg/kg enoxaparin SQ daily until INR >2 x48h. EDGAR, prerenal: resolved with fluid resuscitation. EtOH liver disease- LFTs improving chronic anemia- due to iron deficiency + chronic disease. FOBT negative CAD s/p CABG:resumed metoprolol succinate + clopidogrel mood disorder- olanzapine polysubstance abuse- addiction Medicine consult. screen for HBV/HCV/HIV negative VTE ppx- warfarin, enoxaparin dispo- per PT needs STR/IPR In my clinical judgment, the patient requires continued inpatient hospitalization for the following reasons: hypoxia, diuresis, IV ABX, encephalopathy,subtherapeutic inr , safe dispo to in pul rehab Quality Stroke Does the patient have a stroke diagnosis?: No VTE Prior VTE?: No VTE Risk Level:: Medical - moderate - high VTE Device Contraindication: N/A - Device Ordered VTE Drug Contraindication: Treatment Not Indicated
--- NOTE | 2023-05-27 13:50 | MHC.CM.PN ---
Addendum entered by Lita Holman 05/27/23 14:42: This CM called [facility] and confirmed that pt is active with their services for SN. Original Note: This CM met with pt and educational guidance counselor to discuss D/C plan. Pt states he is not willing to go to [facility]. Pt states he wants to go home to his apartment today but has agreed to stay until tomorrow. Pts states he would like [facility] if possible and will have his DIRECTOR OF PHOTOGRAPHY (1hr/day) also. Pt has family who will transport him home.
[2023-05-27] MEDS: cefTRIAXone sodium 1 GM in 0.9 % Sodium Chloride 50 ML IV (18:05)
[2023-05-27] MEDS: traZODone HCL 50 MG TABLET PO (20:04)
[2023-05-27] MEDS: OLANZapine 5 MG TABLET PO (20:04)
[2023-05-28] VITALS (7 sets, daily range): BP systolic 97–136; BP diastolic 53–67; PULSE 73–95; RESP 16–18; TEMP 36.3–37; O2SAT 93–98
[2023-05-28] MEDS: Thiamine HCL 200 MG in 0.9 % Sodium Chloride 100 ML 204 MG IV ×3 (01:22→18:44)
[2023-05-28] MEDS: 0.9 % Sodium Chloride Flush 3 ML SYRINGE IVFLUSH ×4 (01:22→20:05)
[2023-05-28] MEDS: Doxycycline Monohydrate 100 MG CAPSULE PO ×2 (06:09→17:40)
[2023-05-28] MEDS: Omeprazole 20 MG CAPSULE.DR PO (06:09)
[2023-05-28 07:22] LABS: Prothrombin Time 12.3 SEC (11.1-13.3)
[2023-05-28] MEDS: Fluticasone/Vilanterol 200/25 BLST.W.DEV 1 PUFF INHALE (08:17)
[2023-05-28] MEDS: Enoxaparin Sodium 150 MG/ML SYRINGE 135 MG SUBCUT (08:57)
[2023-05-28] MEDS: Metoprolol Succinate ER 50 MG TAB.ER.24H PO (09:05)
[2023-05-28] MEDS: Magnesium Oxide 400 MG TABLET 800 MG PO ×2 (09:05→20:01)
[2023-05-28] MEDS: Folic Acid 1 MG TABLET PO (09:05)
[2023-05-28] MEDS: Famotidine 20 MG TABLET PO ×2 (09:05→20:01)
[2023-05-28] MEDS: Atorvastatin Calcium 20 MG TABLET PO (09:05)
[2023-05-28] MEDS: Nicotine 21 MG PATCH.TD24 TRANSDERMA (09:07)
[2023-05-28] MEDS: Furosemide 40 MG TABLET PO (09:07)
[2023-05-28] MEDS: busPIRone HCl 10 MG TABLET PO ×3 (09:07→20:01)
[2023-05-28] MEDS: Sacubitril/Valsartan 24/26 1 TAB TABLET PO ×2 (09:08→20:01)
[2023-05-28] MEDS: Clopidogrel Bisulfate 75 MG TABLET PO (09:09)
[2023-05-28 09:23] LABS: Hematocrit 29.6 % (42.0-52.0); Hemoglobin 9.7 g/dl (14.0-18.0)
[2023-05-28] MEDS: Acetaminophen 325 MG TABLET 650 MG PO (15:04)
--- NOTE | 2023-05-28 15:21 | P.PNIM_ITS ---
Subjective Subjective Date of Service: 05/28/23 Interval History: pneumonia, hypoxia, chf Review of Systems sob and mental status improving subtherapeutic inr no fever or chills Physical Exam 2 Vital Signs: Vital Signs: Last Vital Signs Temp 97.9 F 05/28/23 11:58 Pulse 78 05/28/23 11:58 Resp 16 05/28/23 11:58 BP 109/59 L 05/28/23 11:58 Pulse Ox 97 05/28/23 11:58 O2 Del Method Room Air 05/28/23 11:58 O2 Flow Rate 2 05/27/23 04:00 BMI result Body Mass Index 26.6 Appearance: Alert.? Oriented -mental status improving. cvs: rrr, [id number]. res: clear to auscultation ,no rhonchii or wheezing abd: no rebound or guarding ,nt, bs present. ext pulses present , no cyanosis . neuro: axo3,moves all ext Objective Data Active Medications Acetaminophen (Acetaminophen 325 Mg Tablet) 650 mg PO Q6H PRN PRN Reason: Pain, Mild, fever Last Admin: 05/28/23 15:04 Dose: 650 mg Documented By: RO Albuterol Sulfate (Albuterol Sulfate 90 Mcg 8 Gm Inhaler) 2 puff INHALE Q4H PRN PRN Reason: Respiratory Distress Atorvastatin Calcium (Atorvastatin Calcium 20 Mg Tablet) 20 mg PO DAILY [facility] Last Admin: 05/28/23 09:05 Dose: 20 mg Documented By: RO Buspirone HCl (Buspirone Hcl 10 Mg Tablet) 10 mg PO TID [facility] Last Admin: 05/28/23 15:04 Dose: 10 mg Documented By: RO Clopidogrel Bisulfate (Clopidogrel Bisulfate 75 Mg Tablet) 75 mg PO DAILY [facility] Last Admin: 05/28/23 09:09 Dose: 75 mg Documented By: RO Doxycycline Monohydrate (Doxycycline Monohydrate 100 Mg Capsule) 100 mg PO Q12H [facility] Last Admin: 05/28/23 06:09 Dose: 100 mg Documented By: DOBROB Enoxaparin Sodium (Enoxaparin Sodium 150 Mg/Ml Syringe) 135 mg 1.5 mg/kg (135 mg) SUBCUT Q24H [facility] Last Admin: 05/28/23 08:57 Dose: 135 mg Documented By: RO Famotidine (Famotidine 20 Mg Tablet) 20 mg PO BID [facility] Last Admin: 05/28/23 09:05 Dose: 20 mg Documented By: RO Fluticasone/Vilanterol (Fluticasone/Vilanterol 200/25 Blst.W.Dev) 1 puff INHALE RDAILY [facility] Last Admin: 05/28/23 08:17 Dose: 1 puff Documented By: BOUCHRA Folic Acid (Folic Acid 1 Mg Tablet) 1 mg PO DAILY [facility] Last Admin: 05/28/23 09:05 Dose: 1 mg Documented By: RO Furosemide (Furosemide 40 Mg Tablet) 40 mg PO DAILY [facility]; Protocol Last Admin: 05/28/23 09:07 Dose: 40 mg Documented By: RO Ceftriaxone Sodium 1 gm/ (Sodium Chloride) 50 mls @ 100 mls/hr IV Q24H [facility] Last Infusion: 05/27/23 18:52 Dose: Infused Documented By: KRISTYNORRJacqueline Thiamine HCl 200 mg/ Sodium (Chloride) 102 mls @ 204 mls/hr IV Q8H [facility] Last Infusion: 05/28/23 10:16 Dose: Infused Documented By: RO Lidocaine (Lidocaine 4 % Patch Adh..Patch) 1 patch TRANSDERMA DAILY [facility] Last Admin: 05/28/23 09:13 Dose: Not Given Documented By: RO Non-Admin Reason: Patient Refused Magnesium Oxide (Magnesium Oxide 400 Mg Tablet) 800 mg PO BID [facility] Last Admin: 05/28/23 09:05 Dose: 800 mg Documented By: RO Melatonin (Melatonin 3 Mg Tablet) 6 mg PO BEDTIME PRN PRN Reason: Insomnia Last Admin: 05/27/23 20:04 Dose: 6 mg Documented By: DOBROB Metoprolol Succinate (Metoprolol Succinate Er 50 Mg Tab.Er.24h) 50 mg PO DAILY [facility]; Protocol Last Admin: 05/28/23 09:05 Dose: 50 mg Documented By: RO Nicotine (Nicotine 21 Mg Patch.Td24) 21 mg TRANSDERMA DAILY [facility] Last Admin: 05/28/23 09:07 Dose: 21 mg Documented By: RO Nicotine Polacrilex (Nicotine Polacrilex 2 Mg Gum) 2 mg BUCCAL Q1H PRN PRN Reason: Nicotine Cravings Last Admin: 05/21/23 17:48 Dose: 2 mg Documented By: WINNIE Olanzapine (Olanzapine 5 Mg Tablet) 5 mg PO BEDTIME [facility] Last Admin: 05/27/23 20:04 Dose: 5 mg Documented By: GRETA Ondansetron HCl (Ondansetron Hcl 4 Mg/2 Ml Vial) 4 mg IVPUSH Q8H PRN PRN Reason: Nausea and Vomiting Last Admin: 05/18/23 08:27 Dose: 4 mg Documented By: HORACIO Sacubitril/Valsartan (Sacubitril/Valsartan 1 Tab Tablet) 1 tab PO BID [facility]; Protocol Last Admin: 05/28/23 09:08 Dose: 1 tab Documented By: RO Senna (Sennosides 8.6 Mg Tablet) 17.2 mg PO BEDTIME PRN PRN Reason: Constipation Sodium Chloride (0.9 % Sodium Chloride Flush 3 Ml Syringe) 3 ml IVFLUSH QSHIFT [facility] Last Admin: 05/28/23 09:13 Dose: 3 ml Documented By: RO Trazodone HCl (Trazodone Hcl 50 Mg Tablet) 50 mg PO BEDTIME MRX1 [facility] Last Admin: 05/27/23 23:50 Dose: Not Given Documented By: GRETA Non-Admin Reason: Patient Asleep Warfarin Sodium 1 mg/ Warfarin (Sodium 6 mg) 7 mg PO DAILY@1800 [facility] Last Admin: 05/27/23 17:48 Dose: 7 mg Documented By: CTORRZ Labs 05/28/23 08:22 05/26/23 07:11 Labs: Laboratory Results - last 24 hr 05/28/23 06:29 Hold Purple Top SEE NOTE PT 12.3 INR 1.0 Assessment and Plan (1) EDGAR (acute kidney injury): Status: Acute (2) Supratherapeutic INR: Status: Acute (3) Alcohol use disorder, severe, dependence: Status: Acute Plan 63yo M with hx aortic valve replacement anticoagulated on warfarin, AUD with liver disease, hx cocaine abuse disorder, HFrEF s/p AICD, hx intracranial hemorrhage, CAD s/p CABG, mood disorder came in lethargic, confused, and weak found to be hypotensive [resolved with colloid + crystalloid resuscitation],hypoxic with ground-glass infiltrate, negative for Covid-19 or influenza,also with EDGAR, rhabdo, hypoNa, supratherapeutic INR.may have taken 4 tablets of Ambien in the ED acute hypoxic resp failure due to pneumonia and CHF exacerbation BCx negative @ 48h, pneumococcal urine antigen negative, Legionella urine antigen test neg, PCT coming down, respiratory pathogen panel negative, MRSA swab negative,off oxygen. on ceftriaxone + doxycycline 05/17-05/24. acute-chronic HFrEF - TTE 05/21/23:Normal left ventricular cavity size. There is severely increased left ventricular wall thickness. The left ventricular systolic function is borderline reduced. The visually estimated ejection fraction is between 45-50%. Mildly increased right ventricular cavity size. There is normal right ventricular systolic function. A bioprosthetic aortic valve is present. The prosthetic aortic valve appears to be functioning normally. There is no aortic valve stenosis. There is no aortic valve regurgitation. plan i/o: liter continue lasix 40mg daily, monitor BMP/BNP/Mg/I+O, Entresto + metoprolol succinate. AUD with high risk withdrawal- Started on phenobarbital at reduced dose due to possible ambien OD in ED. continue thiamine, folate,Addiction Medicine consulted, to consider naltrexone on discharge toxic-metabolic encephalopathy due to EtOH withdrawal, PNA. head ct, ammonia-seems fine,lfts;s improving,ua negative. however seems mental status improivng (05/25) discontinue ambien, on Trazodone, iv thiamine(05/25) ,monitor mentation. hypoMg and hyponatremia:resolved. hypotension:suspected due to medication misuse rather than sepsis. resolved with crystalloid + colloid resuscitation. rhabdomyolysis:CPK <1000, off IV fluids supratherapeutic INR with mechanical aortic valve not bleeding. high risk for clot so did not give vit K. INR 1.1 still subtherapeutic. warfarin adjusted to 8 mg daily and continue 1.5 mg/kg enoxaparin SQ daily until INR >2 x48h. EDGAR, prerenal: resolved with fluid resuscitation. EtOH liver disease- LFTs improving chronic anemia- due to iron deficiency + chronic disease. FOBT negative CAD s/p CABG:resumed metoprolol succinate + clopidogrel mood disorder- olanzapine polysubstance abuse- addiction Medicine consult. screen for HBV/HCV/HIV negative VTE ppx- warfarin, enoxaparin dispo- per PT needs STR/IPR In my clinical judgment, the patient requires continued inpatient hospitalization for the following reasons: hypoxia, diuresis, IV ABX, encephalopathy,subtherapeutic inr , safe dispo to inpt pulm rehab, subtherapeutic inr. Quality Stroke Does the patient have a stroke diagnosis?: No VTE Prior VTE?: No VTE Risk Level:: Medical - moderate - high VTE Device Contraindication: N/A - Device Ordered VTE Drug Contraindication: Treatment Not Indicated
--- NOTE | 2023-05-28 16:27 | MHC.CM.PN ---
EMR reviewed and per MD rounds, pt is not medically cleared for D/C today, CM will continue to follow.
[2023-05-28] MEDS: Warfarin Sodium 4 MG TABLET 8 MG PO (17:40)
[2023-05-28] MEDS: cefTRIAXone sodium 1 GM in 0.9 % Sodium Chloride 50 ML IV (17:41)
[2023-05-28] MEDS: OLANZapine 5 MG TABLET PO (20:01)
[2023-05-28] MEDS: Melatonin 3 MG TABLET 6 MG PO (20:01)
[2023-05-28] MEDS: traZODone HCL 50 MG TABLET PO ×2 (20:01→20:07)
[2023-05-29] MEDS: Acetaminophen 325 MG TABLET 650 MG PO (01:50)
[2023-05-29] MEDS: Thiamine HCL 200 MG in 0.9 % Sodium Chloride 100 ML 204 MG IV ×2 (01:50→10:43)
[2023-05-29 03:36] VITALS: BP 120/69; PULSE 78; RESP 20; TEMP 36.6; O2SAT 93
[2023-05-29] MEDS: Doxycycline Monohydrate 100 MG CAPSULE PO (06:07)
[2023-05-29] MEDS: Folic Acid 1 MG TABLET PO (07:53)
[2023-05-29] MEDS: Atorvastatin Calcium 20 MG TABLET PO (07:53)
[2023-05-29] MEDS: Sacubitril/Valsartan 24/26 1 TAB TABLET PO (07:53)
[2023-05-29] MEDS: Metoprolol Succinate ER 50 MG TAB.ER.24H PO (07:53)
[2023-05-29] MEDS: busPIRone HCl 10 MG TABLET PO (07:53)
[2023-05-29] MEDS: Enoxaparin Sodium 150 MG/ML SYRINGE 135 MG SUBCUT (07:53)
[2023-05-29] MEDS: Clopidogrel Bisulfate 75 MG TABLET PO (07:54)
[2023-05-29] MEDS: Magnesium Oxide 400 MG TABLET 800 MG PO (07:54)
[2023-05-29] MEDS: Nicotine 21 MG PATCH.TD24 TRANSDERMA (07:54)
[2023-05-29] MEDS: Famotidine 20 MG TABLET PO (07:54)
[2023-05-29] MEDS: Furosemide 40 MG TABLET PO (07:54)
[2023-05-29] MEDS: 0.9 % Sodium Chloride Flush 3 ML SYRINGE IVFLUSH (07:55)
[2023-05-29 08:00] VITALS: BP 126/73; PULSE 73; RESP 20; TEMP 36.4; O2SAT 97
[2023-05-29] MEDS: Fluticasone/Vilanterol 200/25 BLST.W.DEV 1 PUFF INHALE (08:13)
[2023-05-29 08:14] VITALS: PULSE 73; RESP 18; O2SAT 97
[2023-05-29 08:30] LABS: Prothrombin Time 12.1 SEC (11.1-13.3)
--- NOTE | 2023-05-29 10:57 | MHC.CM.PN ---
Addendum entered by Maegan Haley 05/29/23 15:24: DCS AND NEW FACE TO FACE ORDERS FAXED TO [facility] [phone] Original Note: CM MET WITH PT TO DISCUSS DC PLANS WITH THE HELP OF A MAXILLOFACIAL SURGEON PT IS AWARE HE WILL GO HOME TODAY HE HAS DECLINED STR HE WAS INFORMED PT WOULD BE ADDED TO THE VNA ORDERS HE IS ALSO AWARE HIS INR WILL BE DRAWN ON WEDNESDAY AND HE WILL DC ON [place] PT REPORTS HE FEELS COMFORTABLE ADMINISTERING [place] AND IS AWARE THE HOME NURSE WILL NOT COME DAILY PT REPORTS HIS SON WILL PICK HIM UP AROUND 1200 HOURS
[2023-05-29 11:31] VITALS: BP 107/60; PULSE 83; RESP 20; TEMP 36.4; O2SAT 98
--- NOTE | 2023-05-29 12:30 | P.DS_ITS ---
DS: Providers Provider Date of Service: 05/29/23 Date of admission: 05/17/23 18:35 Primary care physician: Nathalie Hsu MD Consults: 05/17/23 18:34 Consult for Sitter Routine Reason for consultation: encephalopathy, high risk of bleeding INR 11 05/17/23 19:05 Addiction Medicine Routine Consulting Provider: Addiction Covering Reason for consultation: etoh dependence 05/18/23 07:53 Consult to Nephrology Routine Consulting Provider: [facility] Reason for consultation: Hyponatremia corrected too quickly DS: Diagnosis Discharge Diagnosis (1) EDGAR (acute kidney injury): Status: Acute (2) Supratherapeutic INR: Status: Acute (3) Alcohol use disorder, severe, dependence: Status: Acute DS: Summary Hospital Course Hospital Course: 63-year-old male with pertinent history of aortic valve replacement on Coumadin, alcohol use disorder with alcoholic liver disease, history of cocaine use dis order, congestive heart failure with reduced ejection history of intracranial hemorrhage, CAD status post CABG, mood disorder presented to the ED at with his sister and niece due to lethargy and weakness. The patient is confused disoriented even to self and cannot obtain history. Call placed to Roxy randall, who assists with history. She states he drinks alot of alcohol and has been trying to cut back and she reports he has been confused. She is concerned about him taking his medications correctly. When she arrived to his apartment, he was not walking well, was lethargic, and they brought him in for further evaluation. On arrival, patient hypotensive to 57/53, responded well to IV fluids and albumin with blood pressure on admission 110/54. He was also noted to be hypoxic to 83% on room air and has been maintaining oximetry 92-94% on 4 L supplemental O2. There is a leukocytosis of 13.4. H/H 9.1/26.0%, consistent with baseline. Creatinine 2.47, baseline 1. BUN 34. Sodium 126, baseline around 130-131. CO2 16. AST 368, ALT 464. Total CK 3655. Troponin 8.1. BNP 111. Urinalysis unremarkable except for 3+ blood, ethyl alcohol level below detectable limits. Negative for COVID-19, influenza. PT 145.3, INR 11.9. PTT [address] negative for any acute intracranial abnormality including hemorrhage. CT cervical spine negative for any acute osseous abnormality. CT abdomen/pelvis shows hepatosplenomegaly, negative for any acute intra-abdominal pathology. Chest CT shows diffuse ground-glass opacities consistent with pneumonia bilaterally as well as chronic compression deformities of L2 and T12. In the Ed, given 3L IV NS, IV albumin x2, 1g ctx, doxycycline, IV thiamine. In the ED, pt confused and was observed taking 4 unknown tablets which were believed to be Ambien, but markings on remaining pills illegible. Hospital course: Patient had admitted with encephalopathy, supratherapeutic INR, EDGAR, rhabdo, hyponatremia, and was hypotensive-received IV fluids for hypotension, also IV antibiotics for pneumonia, he had acute hypoxemic respiratory failure with pneumonia/CHF-received IV diuretics, diuresed well and hypoxia seems to be resolved. details as below: acute-chronic HFrEF: Patient is euvolemic, switched to p.o. Lasix 40 mg daily now, CHF education given, patient was advised strongly to check daily weights ,also if weight gain2 pounds or more in 1 week,may need outpatient lasix adjustement,moniter renal function and electrolytes outpatient. Further management outpatient. Pneumonia: Patient completed his antibiotics, repeat chest imaging in 2-3 weeks to see resolution of pneumonia. Toxic metabolic encephalopathy multifactorial(electrolyte abnormalities, alcohol use, pneumonia,possible extra ambien use ): Seems to be resolved to baseline with supportive care as above,hold ambien until seen by pcp. hypotension:suspected due to medication misuse rather than sepsis. resolved with crystalloid + colloid resuscitation. edgar and rhabdomyolysis:improved to CPK <1000 with ivf, creatnine 0.7 , off IV fluids Hypomagnesemia repleted and resolved. Continue home magnesium. Hyponatremia: Possibly related to fluids, decreased p.o. intake: Seems to be resolved with supportive care and diuresis. alcohol use : strongly advised to abstain from alcohol , follow up outpatient with pcp ,consider consider naltrexone outpatient. ch. normocytic anemia : h/h stable 9.7/29.6 , moniter cbc outpatient and further management outpatient. elevated lft's -multifactorial( alcohol use ,chf might also contributing)-LFTs improving, monitor LFTs outpatient, further management and workup outpatient. Supratherapeutic INR in the setting of aortic valve replacement history: Patient INR improved with holding warfarin , needed bridging since inr remain subtherapeutic for 3-4 days - we will send him with lovenox/warfrain (dose adjusted to 7.5 mg po daily) ,check inr in 2 days ( 05/31)-moniter inr and outpatient adjustment for warfarin with strong recommendation not to drink alcohol due to high risk for fall and head bleed patient understands the consequences, he is awake alert and is motivated to stop drinking.nursing staff teach lovenox injection and also patient has vna at home . plan: continue po lasix 40 mg po daily. Monitor BMP, CBC, Lft's ,INR in 2 days repeat chest imaging in 2-3 weeks to see resolution of pneumonia. Above management discussed with the patient in detail length he understand and in agreement with the above plan, time spent 50 minutes and 50% time spent on counseling. Time Attestation Discharge coordination time: Greater than 30 minutes Quality: Safe Use of Opioids Does Pt have an Active Cancer Diagnosis on the Problem List?: No Quality: Stroke Does the patient have a stroke diagnosis?: No Physical Exam Vital Signs: Vital Signs: Last Vital Signs Temp 97.5 F 05/29/23 11:31 Pulse 83 05/29/23 11:31 Resp 20 05/29/23 11:31 BP 107/60 05/29/23 11:31 Pulse Ox 98 05/29/23 11:31 O2 Del Method Room Air 05/29/23 11:31 O2 Flow Rate 2 05/27/23 04:00 BMI result Body Mass Index 26.6 Appearance: Alert.? Oriented x3,seems at his baseline. cvs: rrr, [id number]. res: clear to auscultation ,no rhonchii or wheezing abd: no rebound or guarding ,nt, bs present. ext pulses present , no cyanosis . neuro: axo3,moves all ext DS: Data Data Completed and Pending Completed studies during hospitalization [Text1]: Procedures Detoxification Services for Substance Abuse Treatment (04/02/23) Labs on day of discharge: Laboratory Results - last 24 hr 05/29/23 08:13 PT 12.1 INR 1.0 Imaging Chest x-ray: Radiologist's impression: ITS Impressions Abdomen/Pelvis CT 05/17/23 15:57 IMPRESSION: 1. Limited study due to respiratory motion. 2. Diffuse groundglass opacities consistent with pneumonia bilaterally. 3. Cardiomegaly. 4. Hepatosplenomegaly. 5. Chronic compression deformities of L2 and T12 Cervical Spine CT 05/17/23 15:57 IMPRESSION: CT head: No acute intracranial finding. Status post left parietal craniotomy and mild volume loss CT cervical spine: No cervical spine fracture or traumatic malalignment identified. Degenerative changes in muscle spasm with straightening of cervical lordosis Chest CT 05/17/23 15:57 IMPRESSION: 1. Limited study due to respiratory motion. 2. Diffuse groundglass opacities consistent with pneumonia bilaterally. 3. Cardiomegaly. 4. Hepatosplenomegaly. 5. Chronic compression deformities of L2 and T12 Head CT 05/17/23 15:57 IMPRESSION: CT head: No acute intracranial finding. Status post left parietal craniotomy and mild volume loss CT cervical spine: No cervical spine fracture or traumatic malalignment identified. Degenerative changes in muscle spasm with straightening of cervical lordosis Chest X-Ray 05/21/23 03:57 IMPRESSION: Pulmonary vascular congestion, increased markings and patchy bilateral multifocal infiltrates, likely representing pulmonary edema. Pneumonia considered less likely. Head CT 05/24/23 15:14 IMPRESSION: 1. No acute intracranial process seen. 2. Right lateral temporal lobe encephalomalacia from old insult. 3. Left parietal craniotomy changes. echo: Normal left ventricular cavity size. There is severely increased left ventricular wall thickness. The left ventricular systolic function is borderline reduced. The visually estimated ejection fraction is between 45-50%. - Mildly increased right ventricular cavity size. There is normal right ventricular systolic function. - A bioprosthetic aortic valve is present. The prosthetic aortic valve appears to be functioning normally. There is no aortic valve stenosis. There is no aortic valve regurgitation. Discharge Plan Discharge Anticipated Discharge Date/Time: 05/29/23 11:46 Patient Disposition: Home Health Service Discharge Diagnosis: Pneumonia , alcohol withdrawal , chf execerbatio n,edgar,rhabdo. Referrals: [facility] [Outside] (Nurse should see you Wednesday) Nathalie Hsu MD [Primary Care Provider] - 1 Week Discharge Medications: New enoxaparin 150 mg/mL Syringe 135 mg subcut Q24H Qty: 1 0RF Rx Instructions: Will need for 5 days or stop earlier if inr 2.5 or above furosemide 40 mg Tablet 40 mg PO DAILY Qty: 30 0RF Protocol: Hold for SBP< HOLD for SBP < : 90 Continued melatonin 5 mg tablet 2 tab PO BEDTIME PRN (Reason: insomnia) olanzapine 5 mg tablet 1 tab PO BEDTIME acetaminophen 500 mg Tablet 500 mg PO BID PRN (Reason: Mild Pain (Scale Score 1-4)) buspirone 10 mg Tablet 10 mg PO TID albuterol sulfate [Ventolin HFA] 90 mcg/actuation Hfa Aerosol Inhaler 2 puff INHALATION Q4H PRN (Reason: Respiratory Distress) hydroxyzine pamoate 50 mg capsule 50 mg PO BEDTIME PRN (Reason: insomnia) nicotine 21 mg/24 hr Patch 24 Hour 21 mg transdermal DAILY Qty: 28 0RF budesonide-formoterol [Symbicort] 160-4.5 mcg/actuation HFA aerosol inhaler 2 puff inhalation BID ondansetron 4 mg tablet,disintegrating 4 mg PO Q8H PRN (Reason: nausea and vomiting) Qty: 20 0RF clopidogrel 75 mg tablet 75 mg PO QAM pantoprazole 40 mg tablet,delayed release (DR/EC) 40 mg PO BID magnesium oxide 400 mg (241.3 mg magnesium) tablet 800 mg PO BID thiamine HCl (vitamin B1) 100 mg tablet 100 mg PO DAILY metoprolol succinate 50 mg tablet extended release 24 hr 50 mg PO DAILY atorvastatin 20 mg tablet 20 mg PO DAILY (DME) blood pressure test kit-large Kit See Rx Instructions .ROUTE DIRECTED Qty: 1 Rx Instructions: As directed folic acid 1 mg tablet 1 mg PO DAILY lidocaine 5 % adhesive patch,medicated 1 patch topical DAILY Protocol: Apply to: Apply to: AFFECTED AREA Entresto 24-26 mg tablet 1 tab PO BID Changed warfarin 5 mg Tablet 7.5 mg PO DAILY Qty: 10 0RF Held zolpidem 10 mg tablet 10 mg PO BEDTIME PRN (Reason: Insomnia) Hold Instructions: Resume on 06/04/23. hold until seen by pcp. Discharge Orders: Discharge Order (Routine); Ordered 05/29/23 Ordered By: Mikael Grier Diet: Advance to usual diet Activity on Discharge: As tolerated Stand Alone Forms: Patient Portal Discharge page Other Ambulatory Orders: Complete Blood Count no Diff (Routine) Timeframe: 1 Week Facility: [facility] - Location: Laboratory Ordered By: Mikael Grier Comprehensive Met. Panel (Routine) Timeframe: 1 Week Facility: [facility] - Location: Laboratory Ordered By: Mikael Grier Prothrombin Time INR (Routine) Timeframe: 2 Days Facility: [facility] - Location: Laboratory Ordered By: Mikael Grier Care Plan Goals: Patient had admitted with encephalopathy, supratherapeutic INR, EDGAR, rhabdo, hyponatremia, and was hypotensive-received IV fluids for hypotension, also IV antibiotics for pneumonia, he had acute hypoxemic respiratory failure with pneumonia/CHF-received IV diuretics, diuresed well and hypoxia seems to be resolved. Toxic metabolic encephalopathy multifactorial(electrolyte abnormalities, alcohol use, pneumonia,possible extra ambien use ): Seems to be resolved to baseline with supportive care as above,hold ambien until seen by pcp. hypotension:suspected due to medication misuse rather than sepsis. resolved with crystalloid + colloid resuscitation. edgar and rhabdomyolysis:improved to CPK <1000 with ivf, creatnine 0.7 , off IV fluids Hypomagnesemia repleted and resolved. Continue home magnesium. Hyponatremia: Possibly related to fluids, decreased p.o. intake: Seems to be resolved with supportive care and diuresis. Pneumonia: Patient completed his antibiotics, repeat chest imaging in 2-3 weeks to see resolution of pneumonia. acute-chronic HFrEF: Patient is euvolemic, switched to p.o. Lasix 40 mg daily now, CHF education given, patient was advised strongly to check daily weights ,also if weight gain2 pounds or more in 1 week,may need outpatient lasix adjustement,moniter renal function and electrolytes outpatient. Further management outpatient. alcohol use : strongly advised to abstain from alcohol , follow up outpatient with pcp ,consider consider naltrexone outpatient. ch. normocytic anemia : h/h stable 9.7/29.6 , moniter cbc outpatient and further management outpatient. elevated lft's -multifactorial( alcohol use ,chf might also contributing)-LFTs improving, monitor LFTs outpatient, further management and workup outpatient. Supratherapeutic INR in the setting of aortic valve replacement history: Patient INR improved with holding warfarin , needed bridging since inr remain subtherapeutic for 3-4 days - we will send him with lovenox/warfrain (dose adjusted to 7.5 mg po daily) ,check inr in 2 days ( 05/31)-moniter inr and outpatient adjustment for warfarin with strong recommendation not to drink alcohol due to high risk for fall and head bleed patient understands the consequences, he is awake alert and is motivated to stop drinking. patient has vna at home . Health Concerns: continue po lasix 40 mg po daily. Monitor BMP, CBC, Lft's ,INR in 2 days repeat chest imaging in 2-3 weeks to see resolution of pneumonia. as above. Plan of Treatment: As above. Assessment: As above.
--- NOTE | 2023-05-29 12:58 | W.MHC.F2F ---
Service Date Service Date: 05/29/23 Encounter Date of encounter: 05/29/23 Encounter: Alcohol withdrawal, CHF, pneumonia, multiple electrolytic abnormalities, rhabdomyolysis, EDGAR Reasons for Services Signs and symptoms assessed: Monitor for any shortness a breath or any weight gain or leg edema Reason for physical therapy: home safety and mobility, therapeutic exercises, restore joint function, gait/transfer training, assess need for DME, ADL training, energy conservation and other MD Overseeing Care: Nathalie Hsu Homebound: Leaving the home is medically contraindicated at this time without the asist of a device and/or another person due th the listed conditions above and below. Reason homebound: weakness related to hospital stay Homebound supporting statement: Patient is generalized weak has multiple comorbidities including Alcohol withdrawal, CHF, pneumonia, multiple electrolytic abnormalities, rhabdomyolysis, EDGAR-need help to go to appointments, INR monitoring lab draws, with PT Certification: Based on the above findings, I certify that this patient is confined to the home and needs intermittent long-term care, physical therapy and/or speech therapy, or continues to need occupational therapy. The patient is under my care, and I have initiated the establishment of the plan of care. The patient will be followed by a physician who will periodically review the plan of care. Time Spent With Patient Time: Total time managing care of this patient today ____ minutes.
== END 2023-05-29 14:23 | disposition home health service (06) | DRG 812 ==
LOC: HO.ED 16:50 → HO.EDOVER 18:53 → HO.IMC 20:06
PROVIDERS: Family Medicine; Physician Assistant; Physician Assistant Medical; Student in an Organized Health Care Education/Training Program; Admitting Provider Physician Assistant; Emergency Provider Emergency Medicine; PCP Family Medicine; Visit Provider Internal Medicine
DX: T42.6X1A Poisoning by other antiepileptic and sedative-hypnotic drugs, accidental (unintentional), initial encounter (principal); J96.01 Acute respiratory failure with hypoxia; A41.9 Sepsis, unspecified organism; G92.8 Other toxic encephalopathy; I50.23 Acute on chronic systolic (congestive) heart failure; J18.9 Pneumonia, unspecified organism; M62.82 Rhabdomyolysis; I11.0 Hypertensive heart disease with heart failure; N17.9 Acute kidney failure, unspecified; E87.1 Hypo-osmolality and hyponatremia; D63.8 Anemia in other chronic diseases classified elsewhere; D50.9 Iron deficiency anemia, unspecified; I95.2 Hypotension due to drugs; F10.239 Alcohol dependence with withdrawal, unspecified; F39 Unspecified mood [affective] disorder; K70.9 Alcoholic liver disease, unspecified; Z71.6 Tobacco abuse counseling; F19.10 Other psychoactive substance abuse, uncomplicated; F17.210 Nicotine dependence, cigarettes, uncomplicated; E83.42 Hypomagnesemia; R79.1 Abnormal coagulation profile; I25.10 Atherosclerotic heart disease of native coronary artery without angina pectoris; Z20.822 Contact with and (suspected) exposure to COVID-19; Z79.01 Long term (current) use of anticoagulants; Z95.0 Presence of cardiac pacemaker; Z95.2 Presence of prosthetic heart valve; Z95.1 Presence of aortocoronary bypass graft; Z79.02 Long term (current) use of antithrombotics/antiplatelets; Z79.899 Other long term (current) drug therapy
CPT/HCPCS: 36415; 70450; 71045; 71250; 72125; 74176; 80048; 80053; 80076; 80307; 81001; 82140; 82272; 82550; 82607; 82728; 82746; 82803; 82947; 83540; 83605; 83690; 83735; 83880; 84145; 84295; 84443; 84484; 85014; 85018; 85025; 85027; 85610; 85730; 86704; 86706; 86803; 86850; 86900; 86901; 87040; 87340; 87389; 87449; 87502; 87633; 87635; 87640; 87641; 87899; 92950; 93005; 93306; 94640; 97116; 97163; 97530; 99285; J0696; J1650; J1940; J2405; J2560; J3411; J3475; P9047; Q9957

== ENCOUNTER → 2023-05-17 14:30 | Outpatient (BNV) | payer MEDICAID, SELFPAY | PROVIDERS: Admitting Provider Physician Assistant; Emergency Provider Emergency Medicine; PCP Family Medicine; Visit Provider Internal Medicine Cardiovascular Disease | DX: R94.31 Abnormal electrocardiogram [ECG] [EKG] (principal) | CPT/HCPCS: 93010 ==

== ENCOUNTER 2023-05-17 18:35 | Outpatient (BNV) | payer MEDICAID, SELFPAY | END 2023-05-18 19:34 | PROVIDERS: Admitting Provider Physician Assistant; Emergency Provider Emergency Medicine; PCP Family Medicine; Visit Provider Internal Medicine Cardiovascular Disease | DX: R94.31 Abnormal electrocardiogram [ECG] [EKG] (principal) | CPT/HCPCS: 93010 ==

== ENCOUNTER 2023-05-17 18:35 | Outpatient (BNV) | payer MEDICAID, SELFPAY | END 2023-05-19 01:45 | PROVIDERS: Admitting Provider Physician Assistant; Emergency Provider Emergency Medicine; PCP Family Medicine; Visit Provider Internal Medicine Cardiovascular Disease | DX: R07.9 Chest pain, unspecified (principal); R94.31 Abnormal electrocardiogram [ECG] [EKG] | CPT/HCPCS: 93010 ==

== ENCOUNTER 2023-05-17 18:35 | Outpatient (BNV) | payer MEDICAID, SELFPAY | END 2023-05-21 07:00 | PROVIDERS: Admitting Provider Physician Assistant; Emergency Provider Emergency Medicine; PCP Family Medicine; Visit Provider Internal Medicine Cardiovascular Disease | DX: R94.31 Abnormal electrocardiogram [ECG] [EKG] (principal); A41.9 Sepsis, unspecified organism | CPT/HCPCS: 93306 ==

== ENCOUNTER → 2023-05-17 18:35 | Outpatient (BNV) | payer OTHER, SELFPAY | PROVIDERS: Admitting Provider Physician Assistant; Emergency Provider Emergency Medicine; PCP Family Medicine; Visit Provider Nurse Practitioner Psychiatric/Mental Health | DX: F10.20 Alcohol dependence, uncomplicated (principal) | CPT/HCPCS: 99232 ==

== ENCOUNTER → 2023-05-17 18:35 | Outpatient (BNV) | payer MEDICAID, SELFPAY | PROVIDERS: Admitting Provider Physician Assistant; Emergency Provider Emergency Medicine; PCP Family Medicine; Visit Provider Internal Medicine Nephrology | DX: N17.9 Acute kidney failure, unspecified (principal) | CPT/HCPCS: 99223 ==

== ENCOUNTER → 2023-05-17 18:35 | Outpatient (BNV) | payer MEDICAID, SELFPAY | PROVIDERS: Admitting Provider Physician Assistant; Emergency Provider Emergency Medicine; PCP Family Medicine; Visit Provider Physician Assistant | DX: N17.9 Acute kidney failure, unspecified (principal); R79.1 Abnormal coagulation profile; F10.239 Alcohol dependence with withdrawal, unspecified | CPT/HCPCS: 99223; 99231; 99232; 99233; 99239; G0180 ==

== ENCOUNTER 2023-06-09 10:49 | Outpatient (REF) | payer MEDICAID, SELFPAY ==
--- NOTE | ~2023-06-09 | XR_ITS ---
EXAMINATION: XR CHEST CLINICAL INFORMATION: Recent pneumonia. COMPARISON: Most recent chest radiograph dated 05/21/2023. TECHNIQUE: 2 views of the chest were obtained. FINDINGS: Chronic interstitial prominence is redemonstrated. Interval decrease in patchy bilateral airspace opacities when compared to the prior examination. Minimal persistence. No new airspace consolidation. No pleural effusion or pneumothorax. Stable cardiac mediastinal silhouette. Right chest wall pacer with leads in unchanged position. Sternal wires and valvuloplasty are redemonstrated. XR/XR chest 2V IMPRESSION: Interval decrease in patchy bilateral airspace opacities when compared to the prior examination. No new airspace consolidation.
[2023-06-09 13:07] LABS: MANUAL DIFF FLAG NO
[2023-06-09 13:32] LABS: Basophils Absolute Auto 0.1 X10*3/uL (0.0-0.2); Basophils Percent Auto 0.9 % (0-2); Eosinophils Absolute Auto 0.3 X10*3/uL (0.0-0.4); Eosinophils Percent Auto 3.6 % (0-4); Hematocrit 34.2 % (42.0-52.0); Hemoglobin 10.6 g/dl (14.0-18.0); Imm Gran Abs Auto 0.03 X10*3/uL (0.00-0.03); Imm Gran Pct Auto 0.4 % (0.0-0.4); Lymphocytes Absolute Auto 2.1 X10*3/uL (1.2-4.9); Lymphocytes Percent Auto 30.3 % (20-40); Mean Corpuscular Hemoglobin 27.3 pg (27.0-33.0); Mean Corpuscular Volume 88.1 fL (80.0-98.0); Mean Platelet Volume 9.3 fL (9.4-12.4); Monocytes Absolute Auto 0.6 X10*3/uL (0.1-1.2); Monocytes Percent Auto 9.1 % (2-11); Neutrophils Absolute Auto 3.9 x10*3/uL (2.0-8.3); Neutrophils Percent Auto 55.7 % (45-73); Platelet Count 576 X10*3/uL (160-400); Red Blood Count 3.88 X10*6/uL (4.60-5.80); Red Cell Distribution Width 17.4 % (11.0-16.0)
[2023-06-09 14:41] LABS: Anion Gap 10 (12-20); Blood Urea Nitrogen 14 mg/dL (9-16); Calcium 9.2 mg/dL (8.4-10.2); Carbon Dioxide 24 mmol/L (22-29); Chloride 109 mmol/L (96-108); Estimated Glomerular Filt Rate > 60; Glucose Random 88 mg/dL (60-115); Iron 27 mcg/dL (45-160); Magnesium 1.5 mg/dL (1.6-2.6); Percent Iron Saturation 8 % (15-50); Sodium 139 mmol/L (135-145); Total Iron Binding Capacity 330 mcg/dL (228-428); Unsaturated Iron Binding 303 ug/dL
[2023-06-09 14:45] LABS: Ferritin 40 ng/mL (20-250)
[2023-06-09 15:18] LABS: Folate > 20.0 ng/mL (> or = 4.0)
== END 2023-06-09 10:50 | disposition home or self-care (01) ==
LOC: HO.HHCL 10:49
PROVIDERS: Visit Provider Family Medicine
DX: D64.9 Anemia, unspecified (principal); F10.20 Alcohol dependence, uncomplicated; J18.9 Pneumonia, unspecified organism
CPT/HCPCS: 36415; 71046; 80048; 82728; 82746; 83540; 83735; 85025

== ENCOUNTER 2023-07-01 10:23 | Outpatient (REF) | payer MEDICAID, SELFPAY ==
[2023-07-01 11:45] LABS: Alanine Aminotransferase 11 U/L (0-40); Albumin Level 3.8 g/dL (3.5-5.0); Alkaline Phosphatase 92 U/L (39-117); Aspartate Amino Transferase 18 U/L (5-37); Bilirubin Direct 0.2 mg/dL (0.0-0.5); Bilirubin Total 0.5 mg/dL (0.0-1.0); Total Protein 7.6 g/dL (6.5-8.0)
== END 2023-07-01 10:24 | disposition home or self-care (01) ==
LOC: HO.HHCL 10:23
PROVIDERS: Visit Provider Family Medicine
DX: F10.20 Alcohol dependence, uncomplicated (principal)
CPT/HCPCS: 36415; 80076

== ENCOUNTER 2023-09-15 11:37 | Inpatient (IN) | payer MEDICAID, SELFPAY ==
[2023-09-15] VITALS (8 sets, daily range): BP systolic 94–125; BP diastolic 44–71; PULSE 77–94; RESP 16–23; TEMP 36.4–37; O2SAT 94–97; BMI 30.6
--- NOTE | ~2023-09-15 | XR_ITS ---
EXAMINATION: XR CHEST CLINICAL INFORMATION: Chest pain COMPARISON: 06/09/2023. TECHNIQUE: 2 views of the chest were obtained. The PA view is at low lung volumes. Slightly rotated to the left. FINDINGS: Status post median sternotomy. Valve prosthesis ring is noted. There are pacer wires in position. No evidence for pneumothorax. There is no dominant airspace consolidation seen. Hilar regions and pulmonary vascularity are unremarkable. There is some compression of parenchymal markings at low lung volumes. Small left pleural effusion noted. Thoracic spondylitic changes seen. XR/XR chest 2V IMPRESSION: Postsurgical changes. Small left pleural effusion. No dominant consolidations. Some compression of parenchymal markings related to low lung volumes.
--- NOTE | ~2023-09-15 | CT_ITS ---
EXAMINATION: CT ABDOMEN AND PELVIS WITHOUT CONTRAST CLINICAL INFORMATION: Abdominal pain COMPARISON: Previous CT of the abdomen and pelvis May 2023 TECHNIQUE: Multidetector volumetric images were obtained from the superior aspect of the liver through the pubic symphysis without intravenous contrast. Sagittal and coronal reformatted images were obtained on the technologist's workstation. Oral contrast: No This CT examination was performed using dose optimization techniques as appropriate, variously including the following: *Automated exposure control *Adjustment of mA and/or kV according to patient size (this includes techniques or standardized protocols for targeted exams where dose is matched to indication/reason for exam; i.e. extremities or head) *Use of iterative reconstruction technique DLP: 582 mGy-cm FINDINGS: LUNG BASES: The visualized lung bases are clear. The heart is enlarged. LIVER, GALLBLADDER, AND BILIARY TREE: The liver is normal in size, shape, and attenuation. No focal hepatic lesion or biliary ductal dilatation is present. The gallbladder is unremarkable with no evidence of radiopaque gallstones, gallbladder wall thickening, or obvious pericholecystic inflammatory changes. PANCREAS: Unremarkable. SPLEEN: Stable splenic calcification. ADRENAL GLANDS: Unremarkable. KIDNEYS AND URETERS: The kidneys are normal in size, shape, and attenuation. No hydronephrosis. 2 left renal calcifications, question representing vascular calcifications versus small stones. BLADDER: Unremarkable. GASTROINTESTINAL TRACT: The small and large bowel are unremarkable. The appendix is not seen. No inflammatory changes in the right lower quadrant. ABDOMINAL WALL: No significant hernia is appreciated. LYMPH NODES: Normal. VASCULAR: There is severe atherosclerotic disease. PELVIC VISCERA: Unremarkable. OSSEOUS STRUCTURES: Degenerative changes of the spine. CT/CT abdomen pelvis wo IV con IMPRESSION: No acute findings. Severe atherosclerotic disease. Small left renal calcifications, question representing vascular calcifications versus small stones. No hydronephrosis. Enlarged heart. Fleischner guidelines were followed.
--- NOTE | 2023-09-15 11:45 | ECG_ITS ---
Test Reason : CHEST PAIN Blood Pressure : / mmHG Vent. Rate : 082 BPM Atrial Rate : 082 BPM P-R Int : 142 ms QRS Dur : 196 ms QT Int : 460 ms P-R-T Axes : -10 065 153 degrees QTc Int : 537 ms Atrial-sensed ventricular-paced rhythm Abnormal ECG When compared with ECG of 19-MAY-2023 10:40, No significant changes seen Referred By: Generic ED Physician Electronically Signed By:YENIFER JJ
--- NOTE | 2023-09-15 11:52 | PC.NURSE ---
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
--- NOTE | 2023-09-15 12:55 | ED_ITS ---
HPI - Chest Pain General Chief Complaint: Chest Pain Stated Complaint: ABD PAIN,VOMITING X3 DAYS PER EMS Time Seen by Provider: 09/15/23 12:55 History of Present Illness ED Provider: Dr. Redmond HPI narrative: 63 y/o M patient; PMH AVR on Coumadin, alcohol use disorder with alcoholic liver disease, hx cocaine use disorder, CHF with reduced EF, CHB s/p pacemaker, hx intracranial hemorrhage, CAD s/p CABG, mood disorder; presents from home reporting three days of nausea/vomiting/diarrhea. Associated with central non- radiating chest pain. Associated with a cough productive of yellow sputum. States last ethanol intake was yesterday. Otherwise denies: cough/congestion, fever or chills, SOB, abdominal pain, syncope. Active nicotine use. Related Data Home Medications ?Medication ?Instructions ?Recorded ?Confirmed melatonin 5 mg tablet 2 tab PO BEDTIME PRN insomnia 10/18/20 05/17/23 atorvastatin 20 mg tablet 20 mg PO DAILY 11/18/20 05/17/23 blood pressure test kit-large #1 ea 11/18/20 02/09/23 folic acid 1 mg tablet 1 mg PO DAILY 11/18/20 05/17/23 lidocaine 5 % topical patch 1 patch topical DAILY 11/18/20 05/17/23 magnesium oxide 400 mg (241.3 mg 800 mg PO BID 11/18/20 05/17/23 magnesium) tablet metoprolol succinate 50 mg 50 mg PO DAILY 11/18/20 05/17/23 tablet,extended release 24 hr pantoprazole 40 mg tablet,delayed 40 mg PO BID 11/18/20 05/17/23 release thiamine HCl (vitamin B1) 100 mg 100 mg PO DAILY 11/18/20 05/17/23 tablet zolpidem 10 mg tablet 10 mg PO BEDTIME PRN Insomnia 12/02/20 05/17/23 olanzapine 5 mg tablet 1 tab PO BEDTIME 10/10/21 05/17/23 acetaminophen 500 mg tablet 500 mg PO BID PRN Mild Pain (Scale 05/11/22 05/17/23 Score 1-4) albuterol sulfate 90 mcg/actuation 2 puff inhalation Q4H PRN 05/11/22 05/17/23 aerosol inhaler (Ventolin HFA) Respiratory Distress buspirone 10 mg tablet 10 mg PO TID 05/11/22 05/17/23 sacubitril 24 mg-valsartan 26 mg 1 tab PO BID 06/12/22 05/17/23 tablet (Entresto) hydroxyzine pamoate 50 mg capsule 50 mg PO BEDTIME PRN insomnia 11/17/22 05/17/23 budesonide-formoterol HFA 160 2 puff inhalation BID 02/09/23 05/17/23 mcg-4.5 mcg/actuation aerosol inhaler (Symbicort) clopidogrel 75 mg tablet 75 mg PO QAM 05/17/23 05/17/23 Previous Rx's ?Medication ?Instructions ?Recorded nicotine 21 mg/24 hr daily 21 mg transdermal DAILY #28 ea 04/03/23 transdermal patch ondansetron 4 mg disintegrating 4 mg PO Q8H PRN nausea and 04/30/23 tablet vomiting #20 tabs enoxaparin 150 mg/mL subcutaneous 135 mg (0.9 mL) subcut Q24H #1 mL 05/29/23 syringe furosemide 40 mg tablet 40 mg PO DAILY #30 tabs 05/29/23 warfarin 5 mg tablet 7.5 mg (1.5 x 5 mg) PO DAILY #10 05/29/23 tabs Allergies Allergy/AdvReac Type Severity Reaction Status Date / Time lorazepam [From ATIVAN] AdvReac Severe OPPOSITE Verified 09/15/23 11:51 EFFECT PSYCOTIC EFECTS Review of Systems 2 Review of Systems: Yes all other systems are reviewed and are negative Neurologic: Denies Sensory deficit (Neuro) PMFSH Past Medical History Attestation statement: The following information was validated with the patient. Source: old records reviewed Medical History Sepsis Rhabdomyolysis EDGAR (acute kidney injury) Supratherapeutic INR Fall Acute hyponatremia Intracranial hemorrhage Coronary artery disease Chronic systolic CHF (congestive heart failure) Hypertension Short-segment Harrell's esophagus Pacemaker Skull fracture Alcoholic liver disease Cocaine abuse Alcohol abuse Surgical History S/P CABG (coronary artery bypass graft) H/O aortic valve replacement History of esophagogastroduodenoscopy (EGD) Aortic valve replaced Social History Social History Household Members: None Housing: Apartment Do you presently have visiting nurse or other home services: Yes Alcohol intake: current Alcohol intake frequency: a few times a week Alcohol type: beer Comment: pt refused, to have assistance with ambulation, chair and bed alarm Patient Tobacco Use Status: Current everyday Tobacco user Tobacco use type: Cigarette Cigarette Packs Per Day: 1 Cigarettes Per Day: 20.0 Smoked in Last 30 Days: Yes Second Hand Smoke Exposure: No Use of substances other than those prescribed or required for medical reasons: No Substance Use Type: Marijuana Advance Directives: Yes Advance Directives on File: Yes Advance Directives Date on File: 10/11/21 service: No Current occupational status: unemployed Physical Exam 2 Vital Signs: Vital Signs: Last Vital Signs Temp 97.5 F 09/15/23 20:32 Pulse 77 09/15/23 20:32 Resp 16 09/15/23 20:32 BP 94/44 L 09/15/23 20:32 Pulse Ox 95 09/15/23 20:32 O2 Del Method Room Air 09/15/23 20:32 BMI result Body Mass Index 30.6 Patient is afebrile with mild tachypnea, without hypoxia, normotensive. Const: General: cooperative Orientation/consciousness: patient oriented x3 HEENT: Head: Yes normal to inspection and Yes atraumatic Eyes: General: appearance normal, both eyes and all related structures P upils: Equal, round and reactive pupils present EOM: EOMs intact bilaterally Neck: Neck: Yes full ROM and No tender Chest: Chest palpation & inspection: normal inspection of the chest and normal palpation of entire chest wall Resp: Effort & Inspection: normal respiratory effort, able to speak in complete sentences and no respiratory distress Auscultation: clear to auscultation bilaterally Cardio: Rate: regular rate Rhythm: regular rhythm GI: Inspection: Yes normal to inspection and No distended Palpation (GI): S oft to palpation, not firm, nontender and no guarding Auscultation: normal bowel sounds Neuro: General: patient oriented x3 Cranial nerves: Yes Equal, round and reactive pupils present Motor exam (neuro): 5/5 motor strength present throughout Sensory Exam: No Sensory deficit (Neuro) Course Course Course Narrative: Patient is afebrile and hemodynamically stable. Ordered for cardiorespiratory and abdominal labs. Ordered EKG and CXR. Laboratories studies reviewed. Baseline anemia 9.5 No significant leukocytosis. Hyponatremia 126 (last 139 in 06/2023). Suspect likely beer potomania. However pending serum osm, urine osm, urine sodium. Chloride 92. Troponin 24.1. Elevated compared to prior troponin levels. Second EKG requested. Repeat troponin 19.3. Provided ASA 324mg PO. Patient's PT/INR is still pending. UA and Utox unremarkable. Ethanol 22. Pending CT Abdomen/Pelvis, CXR, PT/INR. Reevaluation(s) Reevaluation #1: CXR without acute abnormalities. While on CT table patient's IV infiltrated, decision to obtain CT Abdomen/Pelvis W/O Contrast. Pending CT read. Plan: Transition care to Dr. Trejo pending CT results, re-evaluation, and admission for elevated troponin and hyponatremia. Condition: Stable Medications Administered Discontinued Medications Generic Name Dose Route Start Last Admin Trade Name Freq PRN Reason Stop Dose Admin Acetaminophen 650 mg 09/15/23 16:31 09/15/23 16:38 Acetaminophen 325 Mg Tablet PO 09/15/23 16:32 650 mg ONCE ONE Administration Aspirin 324 mg 09/15/23 19:10 09/15/23 20:04 Aspirin 81 Mg Tab.Chew PO 09/15/23 19:11 324 mg ONCE ONE Administration Medical Decision Making Lab Data 09/15/23 13:23 09/15/23 13:23 Labs: Lab Results 09/15/23 09/15/23 09/15/23 Range/Units 12:54 13:16 13:23 WBC 5.4 (4.8-10.8) X10*3/uL RBC 3.67 L (4.60-5.80) X10*6/uL Hgb 9.5 L (14.0-18.0) g/dl Hct 28.9 L (42.0-52.0) % MCV 78.7 L (80.0-98.0) fL MCH 25.9 L (27.0-33.0) pg MCHC 32.9 (31.0-36.0) g/dl RDW 18.2 H (11.0-16.0) % Plt Count 247 D (160-400) X10*3/uL MPV 9.1 L (9.4-12.4) fL Immature Gran % (Auto) 0.4 (0.0-0.4) % Neut % (Auto) 68.5 (45-73) % Lymph % (Auto) 21.1 (20-40) % Maverick % (Auto) 9.4 (2-11) % Eos % (Auto) 0.2 (0-4) % Baso % (Auto) 0.4 (0-2) % Lymph # (Auto) 1.1 L (1.2-4.9) X10*3/uL [place] # (Auto) 0.5 (0.1-1.2) X10*3/uL Eos # (Auto) 0.0 (0.0-0.4) X10*3/uL Baso # (Auto) 0.0 (0.0-0.2) X10*3/uL Abs Immat Gran (auto) 0.02 (0.00-0.03) X10*3/uL Absolute Neuts (auto) 3.7 (2.0-8.3) x10*3/uL Absolute Nucleated RBC 0.000 (0.0-0.012) X10*3/uL Nucleated RBC % (auto) 0.0 (0.0-0.2) /100WBC Sodium 126 L (135-145) mmol/L Potassium 3.8 (3.3-5.1) mmol/L Chloride 92 L (96-108) mmol/L Carbon Dioxide 25 (22-29) mmol/L Anion Gap 13 (12-20) BUN 6 L (9-16) mg/dL Creatinine 0.84 (0.5-1.4) mg/dL Estim Creat Clear Calc 93.6 Estimated GFR > 60 Random Glucose 90 (60-115) mg/dL Osmolality (281-305) mosm/kg Calcium 9.1 (8.4-10.2) mg/dL Total Bilirubin 0.5 (0.0-1.0) mg/dL Direct Bilirubin 0.2 (0.0-0.5) mg/dL AST 23 (5-37) U/L ALT 16 (0-40) U/L Alkaline Phosphatase 68 (39-117) U/L Troponin I High Sens 24.1 D (<3.5-35.0) ng/L B-Natriuretic Peptide 363 H (<100) pg/mL Total Protein 7.5 (6.5-8.0) g/dL Albumin 4.1 (3.5-5.0) g/dL Lipase 11 (8-78) U/L Urine Color Yellow Urine Appearance Clear Urine pH 5.5 (5.0-9.0) Ur Specific [place] <= 1.005 (1.005-1.025) Urine Protein Negative (Neg-Trace) mg/dL Urine Glucose (UA) Negative (Negative) mg/dL Urine Ketones Negative (Negative) mg/dL Urine Blood Negative (Negative) Urine Nitrite Negative (Negative) Ur Leukocyte Esterase Negative (Negative) Urine Osmolality (373-1093) mosm/kg Ur Random Sodium mmol/L Urine Opiates Screen (Not Detect) Ur Buprenorphine Scrn (Not Detect) ng/mL Ur Oxycodone Screen (Not Detect) ng/mL Urine Methadone Screen (Not Detect) ng/mL Urine Fentanyl Screen (Not Detect) Ur Barbiturates Screen (Not Detect) Ur Phencyclidine Scrn (Not Detect) Ur Amphetamines Screen (Not Detect) U Benzodiazepines Scrn (Not Detect) Urine Cocaine Screen (Not Detect) U Marijuana (THC) Screen (Not Detect) Ethyl Alcohol 22 mg/dL Influenza Type A (PCR) NEGATIVE (Negative) Influenza Type B (PCR) NEGATIVE (Negative) RSV RNA Qual (PCR) NEGATIVE (Negative) SARS-CoV-2 RNA (RT-PCR) NEGATIVE (Negative) 09/15/23 09/15/23 09/15/23 Range/Units 13:29 15:17 15:29 WBC (4.8-10.8) X10*3/uL RBC (4.60-5.80) X10*6/uL Hgb (14.0-18.0) g/dl Hct (42.0-52.0) % MCV (80.0-98.0) fL MCH (27.0-33.0) pg MCHC (31.0-36.0) g/dl RDW (11.0-16.0) % Plt Count (160-400) X10*3/uL MPV (9.4-12.4) fL Immature Gran % (Auto) (0.0-0.4) % Neut % (Auto) (45-73) % Lymph % (Auto) (20-40) % Maverick % (Auto) (2-11) % Eos % (Auto) (0-4) % Baso % (Auto) (0-2) % Lymph # (Auto) (1.2-4.9) X10*3/uL Ma[place]ick # (Auto) (0.1-1.2) X10*3/uL Eos # (Auto) (0.0-0.4) X10*3/uL Baso # (Auto) (0.0-0.2) X10*3/uL Abs Immat Gran (auto) (0.00-0.03) X10*3/uL Absolute Neuts (auto) (2.0-8.3) x10*3/uL Absolute Nucleated RBC (0.0-0.012) X10*3/uL Nucleated RBC % (auto) (0.0-0.2) /100WBC Sodium (135-145) mmol/L Potassium (3.3-5.1) mmol/L Chloride (96-108) mmol/L Carbon Dioxide (22-29) mmol/L Anion Gap (12-20) BUN (9-16) mg/dL Creatinine (0.5-1.4) mg/dL Estim Creat Clear Calc Estimated GFR Random Glucose (60-115) mg/dL Osmolality 264 L (281-305) mosm/kg Calcium (8.4-10.2) mg/dL Total Bilirubin (0.0-1.0) mg/dL Direct Bilirubin (0.0-0.5) mg/dL AST (5-37) U/L ALT (0-40) U/L Alkaline Phosphatase (39-117) U/L Troponin I High Sens 19.3 (<3.5-35.0) ng/L B-Natriuretic Peptide (<100) pg/mL Total Protein (6.5-8.0) g/dL Albumin (3.5-5.0) g/dL Lipase (8-78) U/L Urine Color Urine Appearance Urine pH (5.0-9.0) Ur Specific [place] (1.005-1.025) Urine Protein (Neg-Trace) mg/dL Urine Glucose (UA) (Negative) mg/dL Urine Ketones (Negative) mg/dL Urine Blood (Negative) Urine Nitrite (Negative) Ur Leukocyte Esterase (Negative) Urine Osmolality 143 L (373-1093) mosm/kg Ur Random Sodium 28.0 mmol/L Urine Opiates Screen Not Detected (Not Detect) Ur Buprenorphine Scrn Not Detected (Not Detect) ng/mL Ur Oxycodone Screen Not Detected (Not Detect) ng/mL Urine Methadone Screen Not Detected (Not Detect) ng/mL Urine Fentanyl Screen Not Detected (Not Detect) Ur Barbiturates Screen Not Detected (Not Detect) Ur Phencyclidine Scrn Not Detected (Not Detect) Ur Amphetamines Screen Not Detected (Not Detect) U Benzodiazepines Scrn Not Detected (Not Detect) Urine Cocaine Screen Not Detected (Not Detect) U Marijuana (THC) Screen Not Detected (Not Detect) Ethyl Alcohol mg/dL Influenza Type A (PCR) (Negative) Influenza Type B (PCR) (Negative) RSV RNA Qual (PCR) (Negative) SARS-CoV-2 RNA (RT-PCR) (Negative) Independent Interpretation I performed an independent interpretation of an: EKG Interpretation: Atrial sensed, ventricular paced at 82BPM Radiology Impression Discussion of test interpretation with radiology: I have reviewed the radiologist's reading. Radiologist Impression: EXAMINATION: XR CHEST CLINICAL INFORMATION: Chest pain COMPARISON: 06/09/2023. TECHNIQUE: 2 views of the chest were obtained. The PA view is at low lung volumes. Slightly rotated to the left. FINDINGS: Status post median sternotomy. Valve prosthesis ring is noted. There are pacer wires in position. No evidence for pneumothorax. There is no dominant airspace consolidation seen. Hilar regions and pulmonary vascularity are unremarkable. There is some compression of parenchymal markings at low lung volumes. Small left pleural effusion noted. Thoracic spondylitic changes seen. XR/XR chest 2V IMPRESSION: Postsurgical changes. Small left pleural effusion. No dominant consolidations. Some compression of parenchymal markings related to low lung volumes. Discharge Plan Discharge Clinical Impression: Hyponatremia, Elevated troponin, Abdominal pain Patient Disposition: Still a Patient Prescriptions: No Action melatonin 5 mg tablet 2 tab PO BEDTIME PRN (Reason: insomnia) olanzapine 5 mg tablet 1 tab PO BEDTIME acetaminophen 500 mg Tablet 500 mg PO BID PRN (Reason: Mild Pain (Scale Score 1-4)) buspirone 10 mg Tablet 10 mg PO TID albuterol sulfate [Ventolin HFA] 90 mcg/actuation Hfa Aerosol Inhaler 2 puff INHALATION Q4H PRN (Reason: Respiratory Distress) hydroxyzine pamoate 50 mg capsule 50 mg PO BEDTIME PRN (Reason: insomnia) nicotine 21 mg/24 hr Patch 24 Hour 21 mg transdermal DAILY Qty: 28 0RF budesonide-formoterol [Symbicort] 160-4.5 mcg/actuation HFA aerosol inhaler 2 puff inhalation BID ondansetron 4 mg tablet,disintegrating 4 mg PO Q8H PRN (Reason: nausea and vomiting) Qty: 20 0RF clopidogrel 75 mg tablet 75 mg PO QAM enoxaparin 150 mg/mL Syringe 135 mg subcut Q24H Qty: 1 0RF Rx Instructions: Will need for 5 days or stop earlier if inr 2.5 or above furosemide 40 mg Tablet 40 mg PO DAILY Qty: 30 0RF Protocol: Hold for SBP< HOLD for SBP < : 90 warfarin 5 mg Tablet 7.5 mg PO DAILY Qty: 10 0RF zolpidem 10 mg tablet 10 mg PO BEDTIME PRN (Reason: Insomnia) Hold Instructions: Resume on 06/04/23. hold until seen by pcp. pantoprazole 40 mg tablet,delayed release (DR/EC) 40 mg PO BID magnesium oxide 400 mg (241.3 mg magnesium) tablet 800 mg PO BID thiamine HCl (vitamin B1) 100 mg tablet 100 mg PO DAILY metoprolol succinate 50 mg tablet extended release 24 hr 50 mg PO DAILY atorvastatin 20 mg tablet 20 mg PO DAILY (DME) blood pressure test kit-large Kit See Rx Instructions .ROUTE DIRECTED Qty: 1 Rx Instructions: As directed folic acid 1 mg tablet 1 mg PO DAILY lidocaine 5 % adhesive patch,medicated 1 patch topical DAILY Protocol: Apply to: Apply to: AFFECTED AREA Entresto 24-26 mg tablet 1 tab PO BID Print Language: Estonian
[2023-09-15 13:02] LABS: Appearance Urine Clear; Color Urine Yellow; Glucose Urine UA Negative (Negative); Leukocyte Esterase Urine Negative (Negative); Nitrite Urine Negative (Negative); PH 5.5 (5.0-9.0); Specific Gravity - Urine <= 1.005 (1.005-1.025); Urine Blood Negative (Negative); Urine Ketones Negative (Negative); Urine Protein Negative (Neg-Trace)
[2023-09-15 13:27] LABS: MANUAL DIFF FLAG NO
[2023-09-15 13:36] LABS: Basophils Percent Auto 0.4 % (0-2); Eosinophils Percent Auto 0.2 % (0-4); Hematocrit 28.9 % (42.0-52.0); Hemoglobin 9.5 g/dl (14.0-18.0); Imm Gran Abs Auto 0.02 X10*3/uL (0.00-0.03); Imm Gran Pct Auto 0.4 % (0.0-0.4); Lymphocytes Absolute Auto 1.1 X10*3/uL (1.2-4.9); Lymphocytes Percent Auto 21.1 % (20-40); Mean Corpuscular HGB Conc 32.9 g/dl (31.0-36.0); Mean Corpuscular Hemoglobin 25.9 pg (27.0-33.0); Mean Corpuscular Volume 78.7 fL (80.0-98.0); Mean Platelet Volume 9.1 fL (9.4-12.4); Monocytes Absolute Auto 0.5 X10*3/uL (0.1-1.2); Monocytes Percent Auto 9.4 % (2-11); Neutrophils Absolute Auto 3.7 x10*3/uL (2.0-8.3); Neutrophils Percent Auto 68.5 % (45-73); Platelet Count 247 X10*3/uL (160-400); Red Blood Count 3.67 X10*6/uL (4.60-5.80); Red Cell Distribution Width 18.2 % (11.0-16.0); White Blood Count 5.4 X10*3/uL (4.8-10.8)
[2023-09-15 13:42] LABS: Ethanol 22 mg/dL
[2023-09-15 13:44] LABS: Alanine Aminotransferase 16 U/L (0-40); Albumin Level 4.1 g/dL (3.5-5.0); Alkaline Phosphatase 68 U/L (39-117); Anion Gap 13 (12-20); Aspartate Amino Transferase 23 U/L (5-37); Bilirubin Direct 0.2 mg/dL (0.0-0.5); Bilirubin Total 0.5 mg/dL (0.0-1.0); Blood Urea Nitrogen 6 mg/dL (9-16); Calcium 9.1 mg/dL (8.4-10.2); Carbon Dioxide 25 mmol/L (22-29); Chloride 92 mmol/L (96-108); Creatinine Clr Calc Pharmacy 93.6; Estimated Glomerular Filt Rate > 60; Glucose Random 90 mg/dL (60-115); Lipase 11 U/L (8-78); Potassium 3.8 mmol/L (3.3-5.1); Sodium 126 mmol/L (135-145); Total Protein 7.5 g/dL (6.5-8.0)
[2023-09-15 13:50] LABS: B Type Natriuretic Peptide 363 pg/mL (<100)
[2023-09-15 13:51] LABS: Troponin-I High Sensitivity 24.1 ng/L (<3.5-35.0)
[2023-09-15 13:51] LABS: Amphetamine Screen Urine Not Detected (Not Detect); Barbiturates, Urine Not Detected (Not Detect); Benzodiazepines Screen Urine Not Detected (Not Detect); Buprenorphine Scr Not Detected (Not Detect); Cannabinoid Screen Urine Not Detected (Not Detect); Cocaine Screen Urine Not Detected (Not Detect); Fentanyl, urine Not Detected (Not Detect); Methadone Screen, Urine Not Detected (Not Detect); Opiate Screen Urine Not Detected (Not Detect); Oxycodone Screen Urine Not Detected (Not Detect); Phencyclidine Screen Urine Not Detected (Not Detect)
--- NOTE | 2023-09-15 14:00 | ECG_ITS ---
Test Reason : ELEVEATED TROP Blood Pressure : / mmHG Vent. Rate : 080 BPM Atrial Rate : 080 BPM P-R Int : 140 ms QRS Dur : 198 ms QT Int : 466 ms P-R-T Axes : 016 070 153 degrees QTc Int : 537 ms Atrial-sensed ventricular-paced rhythm Abnormal ECG When compared with ECG of 15-SEP-2023 11:51, No significant changes seen Referred By: Hannah Redmond Electronically Signed By:YENIFER JJ
[2023-09-15 14:04] LABS: Influenza A PCR NEGATIVE (Negative); Influenza B PCR NEGATIVE (Negative); Resp Syncy Virus RNA Qual PCR NEGATIVE (Negative); SARS COV2 PCR INHOUSE NEGATIVE (Negative)
[2023-09-15 14:49] LABS: Osmolality Urine 143 mosm/kg (373-1093)
[2023-09-15 15:48] LABS: Osmolality, Serum 264 mosm/kg (281-305)
--- NOTE | 2023-09-15 15:48 | PC.NURSE ---
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 Face flushed, warm and dry. A Paced on tele, breathing even and unlabored
[2023-09-15 16:00] LABS: Troponin-I High Sensitivity 19.3 ng/L (<3.5-35.0)
[2023-09-15] MEDS: Acetaminophen 325 MG TABLET 650 MG PO (16:38)
[2023-09-15] MEDS: Aspirin 81 MG TAB.CHEW 324 MG PO (20:04)
--- NOTE | 2023-09-15 22:35 | PHA.MEDREC ---
Pharmacy Consult ? Medication Reconciliation Pharmacy has completed the medication reconciliation.Med rec complete, patient is unable to tell us what his dose of warfarin is. The most recently filled dose is 2 mg daily, by the amount filled he should have been out of pills, but he states he is taking them every day.
[2023-09-16] VITALS (12 sets, daily range): BP systolic 93–135; BP diastolic 46–70; PULSE 71–94; RESP 16–20; TEMP 36.5–37.3; O2SAT 92–99
[2023-09-16 02:19] LABS: Sodium 130 mmol/L (135-145)
--- NOTE | 2023-09-16 02:32 | P.HPHOSP_ITS ---
History of Present Illness Date of Service: 09/16/23 Attending physician on admission: Carmen Abarca Chief Complaint: Abdominal pain and vomiting Omid Caballero is a 63 years old man with past medical history significant for alcohol abuse on acamprosate, HFrEF (45-50 %), aortic valve replacement on warfarin, alcoholic liver disease, CAD s/p CABG, s/p AICD, hyperlipidemia and essential hypertension presents to the emergency department complaining of upper abdominal pain that started couple of days associated with nausea, nonbloody vomiting and watery nonbloody greenish diarrhea. He describes the pain as burning sensation without radiation. He admits that he drank about 9 beers couple of days ago. He said that he does not drink everyday. Denies fever or chills. Denies headache, chest pain or shortness on breath. He did not report any acute urinary symptoms. In the ED, he was found to have stable vital signs. Last blood pressure is 101/47. There is no tachycardia fever. Oxygen saturation is normal on room air. Blood workup showed no leukocytosis. Hemoglobin is 9.5 which is at baseline. Platelets are normal. Sodium level at 13:23 was 126 (stat Na+ ordered -130). There are no other electrolyte imbalances. Creatinine is 0.84. Osmolality is 264. LFTs are normal. Troponin is flat x2. BNP is elevated at 363. CXR showed small left pleural effusion (however, abd pelvis CT scan showed clear lung bases). Abdomen pelvis CT scan without contrast showed no acute findings no hydronephrosis and cardiomegaly. ECG showed atrial sensed ventricular paced rhythm, HR 80 bpm. ED tx: Acetaminophen 650 mg PO, aspirin 325 mg PO. Review of Systems 2 Review of Systems: All 12 systems were reviewed and normal except as noted in HPI. [facility] Medical History Sepsis Rhabdomyolysis EDGAR (acute kidney injury) Supratherapeutic INR Fall Acute hyponatremia Intracranial hemorrhage Coronary artery disease Chronic systolic CHF (congestive heart failure) Hypertension Short-segment Harrell's esophagus Pacemaker Skull fracture Alcoholic liver disease Cocaine abuse Alcohol abuse Surgical History S/P CABG (coronary artery bypass graft) H/O aortic valve replacement History of esophagogastroduodenoscopy (EGD) Aortic valve replaced Social History Household Members: None Housing: Apartment Do you presently have visiting nurse or other home services: Yes Alcohol intake: current Alcohol intake frequency: a few times a week Alcohol type: beer Comment: pt refused, to have assistance with ambulation, chair and bed alarm Patient Tobacco Use Status: Current everyday Tobacco user Tobacco use type: Cigarette Cigarette Packs Per Day: 1 Cigarettes Per Day: 20.0 Smoked in Last 30 Days: Yes Second Hand Smoke Exposure: No Use of substances other than those prescribed or required for medical reasons: No Substance Use Type: Marijuana Advance Directives: Yes Advance Directives on File: Yes Advance Directives Date on File: 10/11/21 service: No Current occupational status: unemployed Meds Allergies Allergy/AdvReac Type Severity Reaction Status Date / Time lorazepam [From ATIVAN] AdvReac Severe OPPOSITE Verified 09/15/23 11:51 EFFECT PSYCOTIC EFECTS Active Medications: Current Medications Acetaminophen (Acetaminophen 325 Mg Tablet) 650 mg PO Q6H PRN PRN Reason: Pain, Mild (Pain Scale 1-3) Sodium Chloride (Ns) 1,000 mls @ 999 mls/hr IV .Q1H1M CAMMY Stop: 09/16/23 03:00 Thiamine HCl 100 mg/ Sodium (Chloride) 101 mls @ 202 mls/hr IV DAILY CAMMY Stop: 09/19/23 02:29 Dextrose/Sodium Chloride (D5ns) 1,000 mls @ 75 mls/hr IVCONT .[id number] [facility] Ondansetron HCl (Ondansetron Hcl 4 Mg/2 Ml Vial) 4 mg IVPUSH Q4H PRN PRN Reason: Nausea and Vomiting Pantoprazole Sodium (Pantoprazole Sodium 40 Mg/10 Ml Vial) 40 mg IVPUSH BID@0630,1630 [facility] Sodium Chloride (0.9 % Sodium Chloride Flush 3 Ml Syringe) 3 ml IVFLUSH QSHIFT [facility] Home Medications ?Medication ?Instructions ?Recorded ?Confirmed ?Last Taken ?Type melatonin 5 mg tablet 2 tab PO BEDTIME PRN insomnia 10/18/20 09/15/23 Unknown History atorvastatin 20 mg tablet 20 mg PO DAILY 11/18/20 09/15/23 04/02/23 09:00 History blood pressure test kit-large #1 ea 11/18/20 02/09/23 Unknown History folic acid 1 mg tablet 1 mg PO DAILY 11/18/20 09/15/23 04/02/23 09:00 History lidocaine 5 % topical patch 1 patch topical DAILY 11/18/20 09/15/23 04/02/23 09:00 History magnesium oxide 400 mg (241.3 mg 400 mg PO BID 11/18/20 09/15/23 04/02/23 09:00 History magnesium) tablet metoprolol succinate 50 mg 50 mg PO DAILY 11/18/20 09/15/23 04/02/23 09:00 History tablet,extended release 24 hr pantoprazole 40 mg tablet,delayed 40 mg PO BID 11/18/20 09/15/23 04/02/23 09:00 History release thiamine HCl (vitamin B1) 100 mg 100 mg PO DAILY 11/18/20 09/15/23 04/02/23 09:00 History tablet zolpidem 10 mg tablet 10 mg PO BEDTIME PRN Insomnia 12/02/20 09/15/23 10/10/21 History olanzapine 5 mg tablet 1 tab PO BEDTIME 10/10/21 09/15/23 Unknown History acetaminophen 500 mg tablet 500 mg PO BID PRN Mild Pain (Scale 05/11/22 09/15/23 Unknown History Score 1-4) albuterol sulfate 90 mcg/actuation 2 puff inhalation Q4H PRN 05/11/22 09/15/23 Unknown History aerosol inhaler (Ventolin HFA) Respiratory Distress buspirone 10 mg tablet 10 mg PO TID 05/11/22 09/15/23 04/02/23 09:00 History sacubitril 24 mg-valsartan 26 mg 1 tab PO BID 06/12/22 09/15/23 04/02/23 09:00 History tablet (Entresto) budesonide-formoterol HFA 160 2 puff inhalation BID 02/09/23 09/15/23 04/02/23 09:00 History mcg-4.5 mcg/actuation aerosol inhaler (Symbicort) clopidogrel 75 mg tablet 75 mg PO DAILY 05/17/23 09/15/23 Unknown History acamprosate 333 mg tablet,delayed 666 mg PO BID 09/15/23 09/15/23 Unknown History release warfarin 2 mg tablet 2 mg PO DAILY 09/15/23 09/15/23 Unknown History Physical Exam 2 Vital Signs and Narrative: Vital Signs: Last Vital Signs Temp 97.7 F 09/16/23 01:59 Pulse 71 09/16/23 01:59 Resp 20 09/16/23 01:59 BP 101/47 L 09/16/23 01:59 Pulse Ox 95 09/16/23 01:59 O2 Del Method Room Air 09/16/23 01:59 BMI result Body Mass Index 30.6 Constitutional - Sleeping comfortably. He was awaken without issues and was able to provide his HPI. Pleasant. Cooperative. Afebrile. HEENT - Pupils equally round. Normal sclerae. Dry oral mucosa Heart - S1S2, RRR, metallic click Lungs - Normal lung expansion, Normal respiratory effort, No respiratory distress, CTA bilaterally Abdomen - Nondistended. Increased bowel sounds Epigastric tenderness without rebound or guarding. Extremities - no calf tenderness bilaterally, no swelling Musculoskeletal - Normal inspection, normal ROM Skin - Warm/Dry Neurological - Alert & oriented x3. No focal weakness grossly noted. Normal speech. Psychological - Appropriate affect Results Labs 09/15/23 13:23 09/16/23 02:05 Labs: Laboratory Results - last 24 hr 09/15/23 09/15/23 09/15/23 12:54 13:16 13:23 MCV 78.7 L MCH 25.9 L MCHC 32.9 RDW 18.2 H Plt Count 247 D MPV 9.1 L Immature Gran % (Auto) 0.4 Neut % (Auto) 68.5 Lymph % (Auto) 21.1 [place] % (Auto) 9.4 Eos % (Auto) 0.2 Baso % (Auto) 0.4 Lymph # (Auto) 1.1 L [place] # (Auto) 0.5 Eos # (Auto) 0.0 Baso # (Auto) 0.0 Abs Immat Gran (auto) 0.02 Absolute Neuts (auto) 3.7 Absolute Nucleated RBC 0.000 Nucleated RBC % (auto) 0.0 Anion Gap 13 Estim Creat Clear Calc 93.6 Estimated GFR > 60 Random Glucose 90 Osmolality Calcium 9.1 Total Bilirubin 0.5 Direct Bilirubin 0.2 AST 23 ALT 16 Alkaline Phosphatase 68 Troponin I High Sens 24.1 D B-Natriuretic Peptide 363 H Total Protein 7.5 Albumin 4.1 Lipase 11 Urine Color Yellow Urine Appearance Clear Urine pH 5.5 Ur Specific [place] <= 1.005 Urine Protein Negative Urine Glucose (UA) Negative Urine Ketones Negative Urine Blood Negative Urine Nitrite Negative Ur Leukocyte Esterase Negative Urine Osmolality Ur Random Sodium Urine Opiates Screen Ur Buprenorphine Scrn Ur Oxycodone Screen Urine Methadone Screen Urine Fentanyl Screen Ur Barbiturates Screen Ur Phencyclidine Scrn Ur Amphetamines Screen U Benzodiazepines Scrn Urine Cocaine Screen U Marijuana (THC) Screen Ethyl Alcohol 22 Influenza Type A (PCR) NEGATIVE Influenza Type B (PCR) NEGATIVE RSV RNA Qual (PCR) NEGATIVE SARS-CoV-2 RNA (RT-PCR) NEGATIVE 09/15/23 09/15/23 09/15/23 13:29 15:17 15:29 MCV MCH MCHC RDW Plt Count MPV Immature Gran % (Auto) Neut % (Auto) Lymph % (Auto) [place] % (Auto) Eos % (Auto) Baso % (Auto) Lymph # (Auto) [place] # (Auto) Eos # (Auto) Baso # (Auto) Abs Immat Gran (auto) Absolute Neuts (auto) Absolute Nucleated RBC Nucleated RBC % (auto) Anion Gap Estim Creat Clear Calc Estimated GFR Random Glucose Osmolality 264 L Calcium Total Bilirubin Direct Bilirubin AST ALT Alkaline Phosphatase Troponin I High Sens 19.3 B-Natriuretic Peptide Total Protein Albumin Lipase Urine Color Urine Appearance Urine pH Ur Specific [place] Urine Protein Urine Glucose (UA) Urine Ketones Urine Blood Urine Nitrite Ur Leukocyte Esterase Urine Osmolality 143 L Ur Random Sodium 28.0 Urine Opiates Screen Not Detected Ur Buprenorphine Scrn Not Detected Ur Oxycodone Screen Not Detected Urine Methadone Screen Not Detected Urine Fentanyl Screen Not Detected Ur Barbiturates Screen Not Detected Ur Phencyclidine Scrn Not Detected Ur Amphetamines Screen Not Detected U Benzodiazepines Scrn Not Detected Urine Cocaine Screen Not Detected U Marijuana (THC) Screen Not Detected Ethyl Alcohol Influenza Type A (PCR) Influenza Type B (PCR) RSV RNA Qual (PCR) SARS-CoV-2 RNA (RT-PCR) Imaging Radiologist's Impressions: Impressions Chest X-Ray 09/15/23 13:15 IMPRESSION: Postsurgical changes. Small left pleural effusion. No dominant consolidations. Some compression of parenchymal markings related to low lung volumes. Abdomen/Pelvis CT 09/15/23 17:35 IMPRESSION: No acute findings. Severe atherosclerotic disease. Small left renal calcifications, question representing vascular calcifications versus small stones. No hydronephrosis. Enlarged heart. Fleischner guidelines were followed. Assessment and Plan (1) Abdominal pain: Qualifiers: Abdominal location: epigastric Qualified Code(s): R10.13 - Epigastric pain Status: Acute (2) Hyponatremia: Status: Acute (3) ETOH abuse: Status: Acute Plan Omid Caballero is a 63 y/o man admitted with: * Epigastric burning pain pain associated with nausea and vomiting. Lipase and LFTs normal, suspecting acute gastritis and/esophagitis secondary to alcohol use (drank 8-9 beers recently). Admit to hospitalist service. Protonix 40 mg IV twice daily. Antiemetic therapy as needed. Gentle hydration. Recheck lipase. * Burning chest pain, likely secondary to above ECG atrial and ventricular rhythm. Troponin flat. Cardiology consult. * Hyponatremia, likely secondary to nausea, vomiting and diarrhea + diuretic use. Gentle hydration. Continue to monitor Na+ level. * HFrEF (EF 45-50%) s/p AICD. No symptoms of acute decompensation. CXR showed small pleural effusion, however, abd CT scan showed clear lung bases. Continue Entresto and furosemide. * Alcoholic liver disease with ongoing alcohol abuse. Patient was advised to abstain for alcohol consumption. He takes acamprosate. LFTs are normal today. CIWA protocol. Thiamine IV + IV fluids with D5. Folic acid and magnesium. I do not recommend this patient to continue the use Ambien as it is contraindicated in alcoholic patients. * Aortic valve replacement on warfarin. Check INR now. Continue warfarin unless INR is supratherapeutic. * CAD s/p CAD. Continue Plavix, metoprolol and statin. * Hyperlipidemia. Continue statin. * Hypertension. Continue metoprolol. * Mood disorder. Continue Zyprexa and buspirone. Code status: Full DVT prophylaxis: Warfarin Patient will need hospitalization for at least 2 midnights acute gastroenteritis symptoms treatment with IV fluids, anti reflux antiemetic therapy. He will also need close monitoring of sodium level and vital signs. Quality Stroke Does the patient have a stroke diagnosis?: No VTE Prior VTE?: No VTE Risk Level:: Medical - moderate - high VTE Device Contraindication: N/A - Device Ordered VTE Drug Contraindication: N/A - Med Ordered
[2023-09-16] MEDS: 0.9 % Sodium Chloride 1,000 ML 999 ML IV (02:36)
[2023-09-16] MEDS: Pantoprazole Sodium 40 MG/10 ML VIAL IVPUSH (03:43)
[2023-09-16] MEDS: Thiamine HCL 100 MG in 0.9 % Sodium Chloride 100 ML 202 MG IV (03:43)
[2023-09-16 04:34] LABS: MANUAL DIFF FLAG NO
[2023-09-16 04:35] LABS: Basophils Percent Auto 0.3 % (0-2); Eosinophils Absolute Auto 0.1 X10*3/uL (0.0-0.4); Eosinophils Percent Auto 1.6 % (0-4); Hematocrit 27.2 % (42.0-52.0); Hemoglobin 8.9 g/dl (14.0-18.0); Imm Gran Abs Auto 0.01 X10*3/uL (0.00-0.03); Imm Gran Pct Auto 0.3 % (0.0-0.4); Lymphocytes Absolute Auto 1.1 X10*3/uL (1.2-4.9); Lymphocytes Percent Auto 28.1 % (20-40); Mean Corpuscular HGB Conc 32.7 g/dl (31.0-36.0); Mean Corpuscular Hemoglobin 25.9 pg (27.0-33.0); Mean Corpuscular Volume 79.3 fL (80.0-98.0); Mean Platelet Volume 9.1 fL (9.4-12.4); Monocytes Absolute Auto 0.7 X10*3/uL (0.1-1.2); Neutrophils Percent Auto 51.7 % (45-73); Platelet Count 236 X10*3/uL (160-400); Red Blood Count 3.43 X10*6/uL (4.60-5.80); Red Cell Distribution Width 18.6 % (11.0-16.0); White Blood Count 3.8 X10*3/uL (4.8-10.8)
[2023-09-16 04:41] LABS: INTERNATIONAL NORM RATIO 3.7 (0.9-1.1); Prothrombin Time 45.4 SEC (11.1-13.3)
[2023-09-16] MEDS: Dextrose 5 % and 0.9 % NaCl 1,000 ML 75 ML IVCONT (04:45)
[2023-09-16 04:49] LABS: Alanine Aminotransferase 13 U/L (0-40); Albumin Level 3.6 g/dL (3.5-5.0); Alkaline Phosphatase 60 U/L (39-117); Anion Gap 12 (12-20); Aspartate Amino Transferase 15 U/L (5-37); Bilirubin Total 0.4 mg/dL (0.0-1.0); Blood Urea Nitrogen 9 mg/dL (9-16); Calcium 8.7 mg/dL (8.4-10.2); Carbon Dioxide 24 mmol/L (22-29); Chloride 101 mmol/L (96-108); Creatinine Clr Calc Pharmacy 100.8; Estimated Glomerular Filt Rate > 60; Glucose Random 97 mg/dL (60-115); Lipase 11 U/L (8-78); Potassium 3.5 mmol/L (3.3-5.1); Sodium 133 mmol/L (135-145); Total Protein 6.6 g/dL (6.5-8.0)
[2023-09-16 04:57] LABS: Troponin-I High Sensitivity 11.5 ng/L (<3.5-35.0)
[2023-09-16] MEDS: LORazepam 0.5 MG TABLET PO (07:19)
--- NOTE | 2023-09-16 07:24 | PC.NURSE ---
pt alert and oriented, skin appropriate for ethnicity, respirations even and unlabored, ls clear but oxygen level does vary from 93% on room air to 90% currently maintains at 93% on room air, pt is reporting left sided chest pain and feeling slightly anxious, no visible tremor at this time, pt is eating his breakfast
--- NOTE | 2023-09-16 08:36 | MHC.CM.PN ---
Patient lives alone in an apartment and he has [employer] and a SP[employer]ER; home/resume said services is the goal and CM has initiated and will follow for dc planning. Sister/Elizabeth is the HCP and the PCP is Dr. Nathalie Hsu.
[2023-09-16] MEDS: Fluticasone/Vilanterol 200/25 BLST.W.DEV 1 PUFF INHALE (09:11)
[2023-09-16] MEDS: Magnesium Oxide 400 MG TABLET PO (09:40)
[2023-09-16] MEDS: Folic Acid 1 MG TABLET PO (09:40)
[2023-09-16] MEDS: busPIRone HCl 10 MG TABLET PO (09:41)
[2023-09-16] MEDS: Clopidogrel Bisulfate 75 MG TABLET PO (09:41)
[2023-09-16] MEDS: Furosemide 40 MG TABLET PO (09:41)
[2023-09-16] MEDS: Sacubitril/Valsartan 24/26 1 TAB TABLET PO (10:34)
[2023-09-16] MEDS: Sucralfate 1 GM TABLET PO (11:25)
--- NOTE | 2023-09-16 13:10 | PM.EVENT ---
Event Note Date of Service: 09/16/23 Event Note: Day hospitalist update S: This history was taken in Georgian from the patient. C/o burning epigstric and lower chest pain + reflux. No chest pressure. No diaphoresis. O: Temp Pulse Resp BP Pulse Ox O2 Del Method O2 Flow Rate 98.0 F 84 18 107/56 L 93 Room Air 96 09/16/23 12:47 09/16/23 12:47 09/16/23 12:47 09/16/23 12:47 09/16/23 12:47 09/16/23 12:47 09/16/23 11:02 Gen: in no acute distress HEENT: sclera anicteric, moist mucus membranes Neck: supple Lungs: clear to auscultation bilaterally Heart: regular rate and rhythm, no murmurs Abd: soft, non-tender, non-distended Ext: no edema Skin: warm/well-perfused Neuro: alert and oriented x3, no focal findings Psych: appropriate affect A/P: d1 63yo M with AUD on acamprosate, HF with mildly reduced EF 45%, aortic valve replacement on warfarin, alcoholic liver dz, CAD s/p CABG with AICD in place, HLD, HTN presenting with burning chest + upper abd pain with nausea + vomiting + diarrhea suspected alcoholic gastritis - IV PPI, sucralfate atypical chest pain - troponins flat, suspect gastritis as above hypovolemic hyponatremia - corrected 7 mEq over 15 hr; recheck at 24 hr; stop IV fluids CAD - continue clopidogrel, statin aortic valve replacement on warfarin - INR 3.7; hold warfarin; check INR daily chronic HFrEF - continue Entresto, furosemide, metoprolol succinate AUD - acamprosate, thiamine, folate, CIWA, Addiction Medicine consult mood disorder - olanzapine, busprione VTE ppx - warfarin dispo - TBD In my clinical judgment, the patient requires continued hospitalization for the following reasons: hypoNa, chest pain workup Time Spent With Patient Time: Total time managing care of this patient today ____ minutes.
[2023-09-16 13:38] LABS: Sodium 133 mmol/L (135-145)
--- NOTE | 2023-09-16 15:29 | P.DS_ITS ---
DS: Providers Provider Date of Service: 09/16/23 Date of admission: 09/16/23 01:37 Primary care physician: Nathalie Hsu MD Consults: 09/16/23 08:06 Addiction Medicine Routine Consulting Provider: Addiction Covering Reason for consultation: AUD DS: Diagnosis Discharge Diagnosis (1) Hyponatremia: Status: Acute (2) ETOH abuse: Status: Acute (3) Alcohol use disorder, severe, dependence: Status: Acute (4) Alcoholic gastritis: Status: Acute (5) Supratherapeutic INR: Status: Acute (6) Atypical chest pain: Status: Acute (7) Left against medical advice: Status: Acute DS: Summary Hospital Course Hospital Course: from H+P by hospitalist Carmen Guzman, 09/16/23: Omid Caballero is a 63 years old man with past medical history significant for alcohol abuse on acamprosate, HFrEF (45-50 %), aortic valve replacement on warfarin, alcoholic liver disease, CAD s/p CABG, s/p AICD, hyperlipidemia and essential hypertension presents to the emergency department complaining of upper abdominal pain that started couple of days associated with nausea, nonbloody vomiting and watery nonbloody greenish diarrhea. He describes the pain as burn ing sensation without radiation. He admits that he drank about 9 beers couple of days ago. He said that he does not drink everyday. Denies fever or chills. Denies headache, chest pain or shortness on breath. He did not report any acute urinary symptoms. In the ED, he was found to have stable vital signs. Last blood pressure is 101/47. There is no tachycardia fever. Oxygen saturation is normal on room air. Blood workup showed no leukocytosis. Hemoglobin is 9.5 which is at baseline. Platelets are normal. Sodium level at 13:23 was 126 (stat Na+ ordered -130). There are no other electrolyte imbalances. Creatinine is 0.84. Osmolality is 264. LFTs are normal. Troponin is flat x2. BNP is elevated at 363. CXR showed small left pleural effusion (however, abd pelvis CT scan showed clear lung bases). Abdomen pelvis CT scan without contrast showed no acute findings no hydronephrosis and cardiomegaly. ECG showed atrial sensed ventricular paced rhythm, HR 80 bpm. ED tx: Acetaminophen 650 mg PO, aspirin 325 mg PO. and my progress note 09/16/23: 63yo M with AUD on acamprosate, HF with mildly reduced EF 45%, aortic valve replacement on warfarin, alcoholic liver dz, CAD s/p CABG with AICD in place, HLD, HTN presenting with burning chest + upper abd pain with nausea + vomiting + diarrhea suspected alcoholic gastritis - IV PPI, sucralfate atypical chest pain - troponins flat, suspect gastritis as above hypovolemic hyponatremia - corrected 7 mEq over 15 hr; recheck at 24 hr; stop IV fluids CAD - continue clopidogrel, statin aortic valve replacement on warfarin - INR 3.7; hold warfarin; check INR daily chronic HFrEF - continue Entresto, furosemide, metoprolol succinate AUD - acamprosate, thiamine, folate, CIWA, Addiction Medicine consult mood disorder - olanzapine, busprione Unfortunately, quite suddenly, the patient decided to sign out AMA on 09/16/23 at 15:00 despite counseling on the risks of doing so. He was counseled to follow up with his primary care doctor as soon as possible. He should hold warfarin until INR is 3 or less. Time Attestation Discharge Coordination Time (in mins): 35 Quality: Safe Use of Opioids Does Pt have an Active Cancer Diagnosis on the Problem List?: No Quality: Stroke Does the patient have a stroke diagnosis?: No Physical Exam Vital Signs: Vital Signs: Last Vital Signs Temp 99.1 F 09/16/23 14:42 Pulse 94 09/16/23 14:42 Resp 17 09/16/23 14:42 BP 98/50 L 09/16/23 14:58 Pulse Ox 99 09/16/23 14:42 O2 Del Method Room Air 09/16/23 14:42 O2 Flow Rate 96 09/16/23 11:02 BMI result Body Mass Index 30.6 Gen: in no acute distress HEENT: sclera anicteric, moist mucus membranes Neck: supple Lungs: clear to auscultation bilaterally Heart: regular rate and rhythm, no murmurs Abd: soft, non-tender, non-distended Ext: no edema Skin: warm/well-perfused Neuro: alert and oriented x3, no focal findings Psych: appropriate affect DS: Data Data Completed and Pending Completed studies during hospitalization [Text1]: Laboratory Results WBC 3.8 X10*3/uL (4.8-10.8) L 09/16/23 04:25 RBC 3.43 X10*6/uL (4.60-5.80) L 09/16/23 04:25 Hgb 8.9 g/dl (14.0-18.0) L 09/16/23 04:25 Hct 27.2 % (42.0-52.0) L 09/16/23 04:25 MCV 79.3 fL (80.0-98.0) L 09/16/23 04:25 MCH 25.9 pg (27.0-33.0) L 09/16/23 04:25 MCHC 32.7 g/dl (31.0-36.0) 09/16/23 04:25 RDW 18.6 % (11.0-16.0) H 09/16/23 04:25 Plt Count 236 X10*3/uL (160-400) 09/16/23 04:25 MPV 9.1 fL (9.4-12.4) L 09/16/23 04:25 Immature Gran % (Auto) 0.3 % (0.0-0.4) 09/16/23 04:25 Neut % (Auto) 51.7 % (45-73) 09/16/23 04:25 Lymph % (Auto) 28.1 % (20-40) 09/16/23 04:25 [place] % (Auto) 18.0 % (2-11) H 09/16/23 04:25 Eos % (Auto) 1.6 % (0-4) 09/16/23 04:25 Baso % (Auto) 0.3 % (0-2) 09/16/23 04:25 Lymph # (Auto) 1.1 X10*3/uL (1.2-4.9) L 09/16/23 04:25 [place] # (Auto) 0.7 X10*3/uL (0.1-1.2) 09/16/23 04:25 Eos # (Auto) 0.1 X10*3/uL (0.0-0.4) 09/16/23 04:25 Baso # (Auto) 0.0 X10*3/uL (0.0-0.2) 09/16/23 04:25 Abs Immat Gran (auto) 0.01 X10*3/uL (0.00-0.03) 09/16/23 04:25 Absolute Neuts (auto) 2.0 x10*3/uL (2.0-8.3) 09/16/23 04:25 Absolute Nucleated RBC 0.000 X10*3/uL (0.0-0.012) 09/16/23 04:25 Nucleated RBC % (auto) 0.0 /100WBC (0.0-0.2) 09/16/23 04:25 PT 45.4 SEC (11.1-13.3) H D 09/16/23 04:25 INR 3.7 (0.9-1.1) H D 09/16/23 04:25 Sodium 133 mmol/L (135-145) L 09/16/23 13:15 Potassium 3.5 mmol/L (3.3-5.1) 09/16/23 04:25 Chloride 101 mmol/L (96-108) 09/16/23 04:25 Carbon Dioxide 24 mmol/L (22-29) 09/16/23 04:25 Anion Gap 12 (12-20) 09/16/23 04:25 BUN 9 mg/dL (9-16) 09/16/23 04:25 Creatinine 0.78 mg/dL (0.5-1.4) 09/16/23 04:25 Estim Creat Clear Calc 100.8 09/16/23 04:25 Estimated GFR > 60 09/16/23 04:25 Random Glucose 97 mg/dL (60-115) 09/16/23 04:25 Osmolality 264 mosm/kg (281-305) L 09/15/23 15:17 Calcium 8.7 mg/dL (8.4-10.2) 09/16/23 04:25 Total Bilirubin 0.4 mg/dL (0.0-1.0) 09/16/23 04:25 Direct Bilirubin 0.2 mg/dL (0.0-0.5) 09/15/23 13:23 AST 15 U/L (5-37) 09/16/23 04:25 ALT 13 U/L (0-40) 09/16/23 04:25 Alkaline Phosphatase 60 U/L (39-117) 09/16/23 04:25 Troponin I High Sens 11.5 ng/L (<3.5-35.0) 09/16/23 04:25 B-Natriuretic Peptide 363 pg/mL (<100) H 09/15/23 13:23 Total Protein 6.6 g/dL (6.5-8.0) 09/16/23 04:25 Albumin 3.6 g/dL (3.5-5.0) 09/16/23 04:25 Lipase 11 U/L (8-78) 09/16/23 04:25 Urine Color Yellow 09/15/23 12:54 Urine Appearance Clear 09/15/23 12:54 Urine pH 5.5 (5.0-9.0) 09/15/23 12:54 Ur Specific [place] <= 1.005 (1.005-1.025) 09/15/23 12:54 Urine Protein Negative mg/dL (Neg-Trace) 09/15/23 12:54 Urine Glucose (UA) Negative mg/dL (Negative) 09/15/23 12:54 Urine Ketones Negative mg/dL (Negative) 09/15/23 12:54 Urine Blood Negative (Negative) 09/15/23 12:54 Urine Nitrite Negative (Negative) 09/15/23 12:54 Ur Leukocyte Esterase Negative (Negative) 09/15/23 12:54 Urine Osmolality 143 mosm/kg (373-1093) L 09/15/23 13:29 Ur Random Sodium 28.0 mmol/L 09/15/23 13:29 Urine Opiates Screen Not Detected (Not Detect) 09/15/23 13:29 Ur Buprenorphine Scrn Not Detected ng/mL (Not Detect) 09/15/23 13:29 Ur Oxycodone Screen Not Detected ng/mL (Not Detect) 09/15/23 13:29 Urine Methadone Screen Not Detected ng/mL (Not Detect) 09/15/23 13:29 Urine Fentanyl Screen Not Detected (Not Detect) 09/15/23 13:29 Ur Barbiturates Screen Not Detected (Not Detect) 09/15/23 13:29 Ur Phencyclidine Scrn Not Detected (Not Detect) 09/15/23 13:29 Ur Amphetamines Screen Not Detected (Not Detect) 09/15/23 13:29 U Benzodiazepines Scrn Not Detected (Not Detect) 09/15/23 13:29 Urine Cocaine Screen Not Detected (Not Detect) 09/15/23 13:29 U Marijuana (THC) Screen Not Detected (Not Detect) 09/15/23 13:29 Ethyl Alcohol 22 mg/dL 09/15/23 13:23 Influenza Type A (PCR) NEGATIVE (Negative) 09/15/23 13:16 Influenza Type B (PCR) NEGATIVE (Negative) 09/15/23 13:16 RSV RNA Qual (PCR) NEGATIVE (Negative) 09/15/23 13:16 SARS-CoV-2 RNA (RT-PCR) NEGATIVE (Negative) 09/15/23 13:16 Impressions Chest X-Ray 09/15/23 13:15 IMPRESSION: Postsurgical changes. Small left pleural effusion. No dominant consolidations. Some compression of parenchymal markings related to low lung volumes. Abdomen/Pelvis CT 09/15/23 17:35 IMPRESSION: No acute findings. Severe atherosclerotic disease. Small left renal calcifications, question representing vascular calcifications versus small stones. No hydronephrosis. Enlarged heart. Fleischner guidelines were followed. Labs on day of discharge: Laboratory Results - last 24 hr 09/15/23 09/15/23 09/16/23 15:17 15:29 02:05 WBC RBC Hgb Hct MCV MCH MCHC RDW Plt Count MPV Immature Gran % (Auto) Neut % (Auto) Lymph % (Auto) [place] % (Auto) Eos % (Auto) Baso % (Auto) Lymph # (Auto) [place] # (Auto) Eos # (Auto) Baso # (Auto) Abs Immat Gran (auto) Absolute Neuts (auto) Absolute Nucleated RBC Nucleated RBC % (auto) PT INR Sodium 130 L Potassium Chloride Carbon Dioxide Anion Gap BUN Creatinine Estim Creat Clear Calc Estimated GFR Random Glucose Osmolality 264 L Calcium Total Bilirubin AST ALT Alkaline Phosphatase Troponin I High Sens 19.3 Total Protein Albumin Lipase 09/16/23 09/16/23 04:25 13:15 WBC 3.8 L RBC 3.43 L Hgb 8.9 L Hct 27.2 L MCV 79.3 L MCH 25.9 L MCHC 32.7 RDW 18.6 H Plt Count 236 MPV 9.1 L Immature Gran % (Auto) 0.3 Neut % (Auto) 51.7 Lymph % (Auto) 28.1 [place] % (Auto) 18.0 H Eos % (Auto) 1.6 Baso % (Auto) 0.3 Lymph # (Auto) 1.1 L [place] # (Auto) 0.7 Eos # (Auto) 0.1 Baso # (Auto) 0.0 Abs Immat Gran (auto) 0.01 Absolute Neuts (auto) 2.0 Absolute Nucleated RBC 0.000 Nucleated RBC % (auto) 0.0 PT 45.4 H D INR 3.7 H D Sodium 133 L 133 L Potassium 3.5 Chloride 101 Carbon Dioxide 24 Anion Gap 12 BUN 9 Creatinine 0.78 Estim Creat Clear Calc 100.8 Estimated GFR > 60 Random Glucose 97 Osmolality Calcium 8.7 Total Bilirubin 0.4 AST 15 ALT 13 Alkaline Phosphatase 60 Troponin I High Sens 11.5 Total Protein 6.6 Albumin 3.6 Lipase 11 Discharge Plan Discharge Patient Disposition: Left Against Medical Advice Discharge Diagnosis: atypical chest pain, alcoholic gastritis, left against medical advice Referrals: Nathalie Hsu MD [Primary Care Provider] - 1 Week Discharge Medications: No Action melatonin 5 mg tablet 2 tab PO BEDTIME PRN (Reason: insomnia) olanzapine 5 mg tablet 1 tab PO BEDTIME acetaminophen 500 mg Tablet 500 mg PO BID PRN (Reason: Mild Pain (Scale Score 1-4)) buspirone 10 mg Tablet 10 mg PO TID albuterol sulfate [Ventolin HFA] 90 mcg/actuation Hfa Aerosol Inhaler 2 puff INHALATION Q4H PRN (Reason: Respiratory Distress) acamprosate 333 mg tablet,delayed release (DR/EC) 666 mg PO BID warfarin 2 mg Tablet 2 mg PO DAILY budesonide-formoterol [Symbicort] 160-4.5 mcg/actuation HFA aerosol inhaler 2 puff inhalation BID ondansetron 4 mg tablet,disintegrating 4 mg PO Q8H PRN (Reason: nausea and vomiting) Qty: 20 0RF clopidogrel 75 mg tablet 75 mg PO DAILY furosemide 40 mg Tablet 40 mg PO DAILY Qty: 30 0RF Protocol: Hold for SBP< HOLD for SBP < : 90 zolpidem 10 mg tablet 10 mg PO BEDTIME PRN (Reason: Insomnia) Hold Instructions: Resume on 06/04/23. hold until seen by pcp. pantoprazole 40 mg tablet,delayed release (DR/EC) 40 mg PO BID magnesium oxide 400 mg (241.3 mg magnesium) tablet 400 mg PO BID thiamine HCl (vitamin B1) 100 mg tablet 100 mg PO DAILY metoprolol succinate 50 mg tablet extended release 24 hr 50 mg PO DAILY atorvastatin 20 mg tablet 20 mg PO DAILY (DME) blood pressure test kit-large Kit See Rx Instructions .ROUTE DIRECTED Qty: 1 Rx Instructions: As directed folic acid 1 mg tablet 1 mg PO DAILY lidocaine 5 % adhesive patch,medicated 1 patch topical DAILY Protocol: Apply to: Apply to: AFFECTED AREA Entresto 24-26 mg tablet 1 tab PO BID Discharge Orders: Discharge Order (Routine); Ordered 09/16/23 Ordered By: Ravi Smith Diet: Advance to usual diet Activity on Discharge: As tolerated Stand Alone Forms: Against Medical Advice Print Language: Albanian Other Ambulatory Orders: Prothrombin Time INR (Routine) Timeframe: 1 Day Facility: [facility] - Location: Laboratory Ordered By: Ravi Smith Care Plan Goals: sobriety Health Concerns: atypical chest pain, alcoholic gastritis, left against medical advice Plan of Treatment: avoid alcohol INR is 3.7 today. Hold warfarin until INR is 3 or less. Please follow up with your primary care doctor within 1 week. Return to the hospital if you experience recurrent or worsening symptoms. Assessment: See Discharge Summary.
== END 2023-09-16 15:36 | disposition left against medical advice (07) | DRG 241 ==
LOC: HO.ED 21:08 → HO.EDOVER 09-16 01:40 → HO.IMC 09-16 14:10 → HO.EDOVER 09-16 15:30
PROVIDERS: Admitting Provider Internal Medicine; Emergency Provider Emergency Medicine; PCP Family Medicine; Visit Provider Family Medicine
DX: K29.20 Alcoholic gastritis without bleeding (principal); E87.1 Hypo-osmolality and hyponatremia; K70.9 Alcoholic liver disease, unspecified; I50.22 Chronic systolic (congestive) heart failure; E86.1 Hypovolemia; R79.1 Abnormal coagulation profile; I25.10 Atherosclerotic heart disease of native coronary artery without angina pectoris; F17.210 Nicotine dependence, cigarettes, uncomplicated; F10.20 Alcohol dependence, uncomplicated; Z20.822 Contact with and (suspected) exposure to COVID-19; Y90.1 Blood alcohol level of 20-39 mg/100 ml; Z95.1 Presence of aortocoronary bypass graft; Z95.2 Presence of prosthetic heart valve; Z71.6 Tobacco abuse counseling; Z95.810 Presence of automatic (implantable) cardiac defibrillator; Z79.01 Long term (current) use of anticoagulants; Z79.02 Long term (current) use of antithrombotics/antiplatelets; Z79.899 Other long term (current) drug therapy
CPT/HCPCS: 0241U; 36415; 71046; 74176; 80048; 80053; 80076; 80307; 81003; 83690; 83880; 83930; 83935; 84295; 84300; 84484; 85025; 85610; 93005; 94640; 96361; 96365; 96375; 99222; 99285; C9113; J3411

== ENCOUNTER → 2023-09-15 11:45 | Outpatient (BNV) | payer MEDICAID, SELFPAY | PROVIDERS: Emergency Provider Emergency Medicine; PCP Family Medicine; Visit Provider Internal Medicine | DX: R94.31 Abnormal electrocardiogram [ECG] [EKG] (principal) | CPT/HCPCS: 93010 ==

== ENCOUNTER → 2023-09-16 01:37 | Outpatient (BNV) | payer MEDICAID, SELFPAY | PROVIDERS: Admitting Provider Internal Medicine; Emergency Provider Emergency Medicine; PCP Family Medicine; Visit Provider Internal Medicine | DX: E87.1 Hypo-osmolality and hyponatremia (principal); F10.288 Alcohol dependence with other alcohol-induced disorder; K29.20 Alcoholic gastritis without bleeding; Z53.29 Procedure and treatment not carried out because of patient's decision for other reasons; R79.1 Abnormal coagulation profile; R07.89 Other chest pain; R10.13 Epigastric pain | CPT/HCPCS: 99236; 99499 ==

== ENCOUNTER 2023-10-07 16:22 | Emergency (ER) | payer MEDICAID, SELFPAY ==
--- NOTE | ~2023-10-07 | XR_ITS ---
EXAMINATION: XR CHEST CLINICAL INFORMATION: Chest pain COMPARISON: 09/15/2023 TECHNIQUE: Frontal view of the chest was obtained. FINDINGS: Lungs are clear cardiomediastinal silhouette revealed status post median sternotomy for aortic valve replacement. XR/XR chest 1V IMPRESSION: No active cardiopulmonary disease
[2023-10-07 16:30] VITALS: BP 103/51; BP 132/60; PULSE 72; PULSE 83; RESP 14; TEMP 36.4; O2SAT 95; O2SAT 97; BMI 29.1
--- NOTE | 2023-10-07 16:30 | ED_ITS ---
HPI - Chest Pain General Chief Complaint: Chest Pain Stated Complaint: chest pain, vomiting x2days, pacemaker Time Seen by Provider: 10/07/23 16:30 History of Present Illness ED Provider: Mary LIU narrative: The patient is a 63-year-old male with a complex medical history who says that he cast to check 3 days ago on Wednesday. He then had alcohol. After drinking the alcohol you develop nausea, vomiting, and diarrhea. He would several episodes of vomiting and he developed chest pain that he attributes to the multiple episodes of vomiting. He says he has felt unwell for about 2 days. He does not know if he has had a fever. Related Data Home Medications ?Medication ?Instructions ?Recorded ?Confirmed melatonin 5 mg tablet 2 tab PO BEDTIME PRN insomnia 10/18/20 09/15/23 atorvastatin 20 mg tablet 20 mg PO DAILY 11/18/20 09/15/23 blood pressure test kit-large #1 ea 11/18/20 02/09/23 folic acid 1 mg tablet 1 mg PO DAILY 11/18/20 09/15/23 lidocaine 5 % topical patch 1 patch topical DAILY 11/18/20 09/15/23 magnesium oxide 400 mg (241.3 mg 400 mg PO BID 11/18/20 09/15/23 magnesium) tablet metoprolol succinate 50 mg 50 mg PO DAILY 11/18/20 09/15/23 tablet,extended release 24 hr pantoprazole 40 mg tablet,delayed 40 mg PO BID 11/18/20 09/15/23 release thiamine HCl (vitamin B1) 100 mg 100 mg PO DAILY 11/18/20 09/15/23 tablet zolpidem 10 mg tablet 10 mg PO BEDTIME PRN Insomnia 12/02/20 09/15/23 olanzapine 5 mg tablet 1 tab PO BEDTIME 10/10/21 09/15/23 acetaminophen 500 mg tablet 500 mg PO BID PRN Mild Pain (Scale 05/11/22 09/15/23 Score 1-4) albuterol sulfate 90 mcg/actuation 2 puff inhalation Q4H PRN 05/11/22 09/15/23 aerosol inhaler (Ventolin HFA) Respiratory Distress buspirone 10 mg tablet 10 mg PO TID 05/11/22 09/15/23 sacubitril 24 mg-valsartan 26 mg 1 tab PO BID 06/12/22 09/15/23 tablet (Entresto) budesonide-formoterol HFA 160 2 puff inhalation BID 02/09/23 09/15/23 mcg-4.5 mcg/actuation aerosol inhaler (Symbicort) clopidogrel 75 mg tablet 75 mg PO DAILY 05/17/23 09/15/23 acamprosate 333 mg tablet,delayed 666 mg PO BID 09/15/23 09/15/23 release warfarin 2 mg tablet 2 mg PO DAILY 09/15/23 09/15/23 Previous Rx's ?Medication ?Instructions ?Recorded ondansetron 4 mg disintegrating 4 mg PO Q8H PRN nausea and 04/30/23 tablet vomiting #20 tabs furosemide 40 mg tablet 40 mg PO DAILY #30 tabs 05/29/23 Allergies Allergy/AdvReac Type Severity Reaction Status Date / Time lorazepam [From ATIVAN] AdvReac Severe OPPOSITE Verified 10/07/23 16:39 EFFECT PSYCOTIC EFECTS Review of Systems 2 Review of Systems: Yes all other systems are reviewed and are negative [facility] Past Medical History Medical History Sepsis Rhabdomyolysis EDGAR (acute kidney injury) Supratherapeutic INR Fall Acute hyponatremia Intracranial hemorrhage Coronary artery disease Chronic systolic CHF (congestive heart failure) Hypertension Short-segment Harrell's esophagus Pacemaker Skull fracture Alcoholic liver disease Cocaine abuse Alcohol abuse Surgical History (Updated 09/16/23 @ 15:33 by Ravi Smith MD) Aortic valve replaced S/P CABG (coronary artery bypass graft) H/O aortic valve replacement History of esophagogastroduodenoscopy (EGD) Social History Social History Household Members: None Housing: Apartment Do you presently have visiting nurse or other home services: Yes Alcohol intake: current Alcohol intake frequency: a few times a week Alcohol type: beer Comment: pt refused, to have assistance with ambulation, chair and bed alarm Patient Tobacco Use Status: Current everyday Tobacco user Tobacco use type: Cigarette Cigarette Packs Per Day: 1 Cigarettes Per Day: 20.0 Smoked in Last 30 Days: No Second Hand Smoke Exposure: No Use of substances other than those prescribed or required for medical reasons: No Substance Use Type: Marijuana Advance Directives: No Advance Directives Information Provided: No Advance Directives Date on File: 10/11/21 Do you have a plan to hurt others: No Plan service: No Current occupational status: unemployed Physical Exam 2 Vital Signs: Vital Signs: Last Vital Signs Temp 98.2 F 10/07/23 20:03 Pulse 82 10/07/23 20:03 Resp 18 10/07/23 20:03 BP 131/66 10/07/23 20:03 Pulse Ox 96 10/07/23 20:03 O2 Del Method Room Air 10/07/23 20:03 BMI result Body Mass Index 29.1 Const: Other: The patient is awake and alert. He is requesting medicine for his chest pain. Does not appear in obvious distress. No increased work of breathing. HEENT: Other: Face is symmetrical. Mucous membranes moist. Eyes: Other: Pupils are round equal, conjunctivae are clear Neck: Other: Neck is supple, no obvious JVD Resp: Effort & Inspection: normal respiratory effort Auscultation: clear to auscultation bilaterally Cardio: Rate: regular rate Rhythm: regular rhythm Heart sounds: S1 normal heart sound present and S2 normal heart sound present GI: Other: The abdomen is soft and does not seem tender. Skin: Other: Skin is dry and unremarkable Neuro: Other: The patient is awake and alert. Face is symmetrical. Speech is clear. He moves his extremities symmetrically. He seems grossly neurologically intact. Extrem: Other: No peripheral edema. No calf swelling or tenderness. Excellent dorsalis pedis pulses. Medications Administered Discontinued Medications Generic Name Dose Route Start Last Admin Trade Name Freq PRN Reason Stop Dose Admin Acetaminophen 975 mg 10/07/23 19:36 10/07/23 19:54 Acetaminophen 325 Mg Tablet PO 10/07/23 19:37 975 mg ONCE ONE Administration Al Hydroxide/Mg Hydroxide 60 ml 10/07/23 16:53 10/07/23 17:06 Magnesium Hydrox/Alum Hydrox 30 Ml Oral.Susp PO 10/07/23 16:54 60 ml ONCE ONE Administration Sodium Chloride 1,000 mls @ 999 mls/hr 10/07/23 18:00 10/07/23 20:02 Ns IV 10/07/23 19:00 Infused .Q1H1M [facility]MY Infusion Ondansetron HCl 4 mg 10/07/23 17:49 10/07/23 18:42 Ondansetron Hcl 4 Mg/2 Ml Vial IVPUSH 10/07/23 17:50 4 mg ONCE ONE Administration Medical Decision Making Medical Decision Making [facility] Narrative: The patient is a 63-year-old male who presented by ambulance complaining of chest pain and vomiting and diarrhea and body aches. The patient is vital signs were unremarkable. His clinical exam seems benign. His EKG shows a paced rhythm consistent with previous EKGs. His chest x-ray is clear. He has a normal troponin after 2 days of symptoms. He has a normal white count with a normal differential. His CRP is normal. His abdomen seems benign. His alcohol level is 191. He did not have any vomiting or diarrhea in the emergency department. His vital signs remained stable. Overall I felt that his workup was extremely benign and reassuring although his INR was 4.1. He says that he gets his warfarin dosing advice from Nathalie Hsu at the [facility]. Patient looks appropriate for discharge. He has advised to not take his warfarin dose today. He is advised to call the [facility] tomorrow for advice about ongoing warfarin dosing. He is also advised to try to use alcohol less. Lab Data 10/07/23 17:04 10/07/23 17:04 Labs: Lab Results 10/07/23 10/07/23 10/07/23 Range/Units 17:04 17:07 17:56 WBC 6.9 (4.8-10.8) X10*3/uL RBC 4.08 L (4.60-5.80) X10*6/uL Hgb 10.3 L (14.0-18.0) g/dl Hct 32.0 L (42.0-52.0) % MCV 78.4 L (80.0-98.0) fL MCH 25.2 L (27.0-33.0) pg MCHC 32.2 (31.0-36.0) g/dl RDW 16.6 H (11.0-16.0) % Plt Count 330 D (160-400) X10*3/uL MPV 9.0 L (9.4-12.4) fL Immature Gran % (Auto) 0.4 (0.0-0.4) % Neut % (Auto) 53.5 (45-73) % Lymph % (Auto) 32.8 (20-40) % [place] % (Auto) 12.2 H (2-11) % Eos % (Auto) 0.4 (0-4) % Baso % (Auto) 0.7 (0-2) % Lymph # (Auto) 2.3 (1.2-4.9) X10*3/uL [place] # (Auto) 0.8 (0.1-1.2) X10*3/uL Eos # (Auto) 0.0 (0.0-0.4) X10*3/uL Baso # (Auto) 0.1 (0.0-0.2) X10*3/uL Abs Immat Gran (auto) 0.03 (0.00-0.03) X10*3/uL Absolute Neuts (auto) 3.7 (2.0-8.3) x10*3/uL Absolute Nucleated RBC 0.000 (0.0-0.012) X10*3/uL Nucleated RBC % (auto) 0.0 (0.0-0.2) /100WBC PT 49.6 H (11.1-13.3) SEC INR 4.1 H (0.9-1.1) VBG pH 7.45 H (7.32-7.43) VBG pCO2 34 mmHg VBG pO2 50 mmHg VBG HCO3 24 (22-26) mmol/L VBG O2 Saturation 85.0 % VBG Base Excess 0.8 mmol/L Sodium 129 L (135-145) mmol/L Potassium 3.4 (3.3-5.1) mmol/L Chloride 96 (96-108) mmol/L Carbon Dioxide 20 L (22-29) mmol/L Anion Gap 16 (12-20) BUN 12 (9-16) mg/dL Creatinine 1.14 (0.5-1.4) mg/dL Estim Creat Clear Calc 65.2 Estimated GFR > 60 Random Glucose 100 (60-115) mg/dL Calcium 9.0 (8.4-10.2) mg/dL Magnesium 1.7 (1.6-2.6) mg/dL Total Bilirubin 0.3 (0.0-1.0) mg/dL Direct Bilirubin 0.1 (0.0-0.5) mg/dL AST 27 (5-37) U/L ALT 18 (0-40) U/L Alkaline Phosphatase 69 (39-117) U/L Troponin I High Sens 10.4 (<3.5-35.0) ng/L C-Reactive Protein 0.20 (< or = 0.50) mg/dL B-Natriuretic Peptide 81 (<100) pg/mL Total Protein 7.6 (6.5-8.0) g/dL Albumin 4.2 (3.5-5.0) g/dL Lipase 13 (8-78) U/L Urine Color Yellow Urine Appearance Clear Urine pH 5.5 (5.0-9.0) Ur Specific [place] <= 1.005 (1.005-1.025) Urine Protein Negative (Neg-Trace) mg/dL Urine Glucose (UA) Negative (Negative) mg/dL Urine Ketones Negative (Negative) mg/dL Urine Blood Negative (Negative) Urine Nitrite Negative (Negative) Ur Leukocyte Esterase Negative (Negative) Urine Opiates Screen Not Detected (Not Detect) Ur Buprenorphine Scrn Not Detected (Not Detect) ng/mL Ur Oxycodone Screen Not Detected (Not Detect) ng/mL Urine Methadone Screen Not Detected (Not Detect) ng/mL Urine Fentanyl Screen Not Detected (Not Detect) Ur Barbiturates Screen Not Detected (Not Detect) Ur Phencyclidine Scrn Not Detected (Not Detect) Ur Amphetamines Screen Not Detected (Not Detect) U Benzodiazepines Scrn Not Detected (Not Detect) Urine Cocaine Screen Not Detected (Not Detect) U Marijuana (THC) Screen Not Detected (Not Detect) Ethyl Alcohol 191 mg/dL Influenza Type A (PCR) NEGATIVE (Negative) Influenza Type B (PCR) NEGATIVE (Negative) RSV RNA Qual (PCR) NEGATIVE (Negative) SARS-CoV-2 RNA (RT-PCR) NEGATIVE (Negative) Independent Interpretation I performed an independent interpretation of an: EKG Interpretation: EKG at 16:46 shows an atrial sensed ventricular paced rhythm at 80 beats per minute. Similar to previous EKGs. Discharge Plan Discharge Clinical Impression: Chest pain, Body aches Additional Instructions: Your testing today is reassuring. Your INR, the blood test for your warfarin, however was higher than it should be at 4.1. Do not take your warfarin today. Tomorrow please call the [facility] for advice about your next dose of warfarin. Please do your best to try to reduce your alcohol use. Follow up soon with your regular doctor. Return to the emergency room if worse. Prescriptions: No Action melatonin 5 mg tablet 2 tab PO BEDTIME PRN (Reason: insomnia) olanzapine 5 mg tablet 1 tab PO BEDTIME acetaminophen 500 mg Tablet 500 mg PO BID PRN (Reason: Mild Pain (Scale Score 1-4)) buspirone 10 mg Tablet 10 mg PO TID albuterol sulfate [Ventolin HFA] 90 mcg/actuation Hfa Aerosol Inhaler 2 puff INHALATION Q4H PRN (Reason: Respiratory Distress) acamprosate 333 mg tablet,delayed release (DR/EC) 666 mg PO BID warfarin 2 mg Tablet 2 mg PO DAILY budesonide-formoterol [Symbicort] 160-4.5 mcg/actuation HFA aerosol inhaler 2 puff inhalation BID ondansetron 4 mg tablet,disintegrating 4 mg PO Q8H PRN (Reason: nausea and vomiting) Qty: 20 0RF clopidogrel 75 mg tablet 75 mg PO DAILY furosemide 40 mg Tablet 40 mg PO DAILY Qty: 30 0RF Protocol: Hold for SBP< HOLD for SBP < : 90 zolpidem 10 mg tablet 10 mg PO BEDTIME PRN (Reason: Insomnia) Hold Instructions: Resume on 06/04/23. hold until seen by pcp. pantoprazole 40 mg tablet,delayed release (DR/EC) 40 mg PO BID magnesium oxide 400 mg (241.3 mg magnesium) tablet 400 mg PO BID thiamine HCl (vitamin B1) 100 mg tablet 100 mg PO DAILY metoprolol succinate 50 mg tablet extended release 24 hr 50 mg PO DAILY atorvastatin 20 mg tablet 20 mg PO DAILY (DME) blood pressure test kit-large Kit See Rx Instructions .ROUTE DIRECTED Qty: 1 Rx Instructions: As directed folic acid 1 mg tablet 1 mg PO DAILY lidocaine 5 % adhesive patch,medicated 1 patch topical DAILY Protocol: Apply to: Apply to: AFFECTED AREA Entresto 24-26 mg tablet 1 tab PO BID Referrals: Nathalie Hsu MD [Physician] - (high INR, 4.1) Interventions: ED Discharge Assessment Last Done: 10/07/23 20:03 Print Language: Ugandan
[2023-10-07 16:43] VITALS: BP 132/60; PULSE 78; PULSE 79; RESP 15; TEMP 36.4; O2SAT 94
--- NOTE | 2023-10-07 16:46 | ECG_ITS ---
Test Reason : CHEST PAIN Blood Pressure : / mmHG Vent. Rate : 080 BPM Atrial Rate : 080 BPM P-R Int : 130 ms QRS Dur : 214 ms QT Int : 494 ms P-R-T Axes : 000 069 -06 degrees QTc Int : 569 ms Atrial-sensed ventricular-paced rhythm Abnormal ECG When compared with ECG of 15-SEP-2023 14:10, No significant change was found Referred By: Brian Hernandez Electronically Signed By:YENIFER JJ
[2023-10-07] MEDS: Magnesium Hydrox/Alum Hydrox 30 ML ORAL.SUSP 60 ML PO (17:06)
[2023-10-07 17:14] LABS: MANUAL DIFF FLAG NO
[2023-10-07 17:15] LABS: Venous Blood Gas Refer to POC result
[2023-10-07 17:15] LABS: VBG Base Excess 0.8 mmol/L; VBG HCO3 24 mmol/L (22-26); VBG pCO2 34 mmHg; VBG pH 7.45 (7.32-7.43); VBG pO2 50 mmHg
[2023-10-07 17:16] LABS: Basophils Absolute Auto 0.1 X10*3/uL (0.0-0.2); Basophils Percent Auto 0.7 % (0-2); Eosinophils Percent Auto 0.4 % (0-4); Hemoglobin 10.3 g/dl (14.0-18.0); Imm Gran Abs Auto 0.03 X10*3/uL (0.00-0.03); Imm Gran Pct Auto 0.4 % (0.0-0.4); Lymphocytes Absolute Auto 2.3 X10*3/uL (1.2-4.9); Lymphocytes Percent Auto 32.8 % (20-40); Mean Corpuscular HGB Conc 32.2 g/dl (31.0-36.0); Mean Corpuscular Hemoglobin 25.2 pg (27.0-33.0); Mean Corpuscular Volume 78.4 fL (80.0-98.0); Monocytes Absolute Auto 0.8 X10*3/uL (0.1-1.2); Monocytes Percent Auto 12.2 % (2-11); Neutrophils Absolute Auto 3.7 x10*3/uL (2.0-8.3); Neutrophils Percent Auto 53.5 % (45-73); Platelet Count 330 X10*3/uL (160-400); Red Blood Count 4.08 X10*6/uL (4.60-5.80); Red Cell Distribution Width 16.6 % (11.0-16.0); White Blood Count 6.9 X10*3/uL (4.8-10.8)
[2023-10-07 17:22] LABS: INTERNATIONAL NORM RATIO 4.1 (0.9-1.1); Prothrombin Time 49.6 SEC (11.1-13.3)
[2023-10-07 17:36] LABS: B Type Natriuretic Peptide 81 pg/mL (<100)
[2023-10-07 17:43] LABS: Alanine Aminotransferase 18 U/L (0-40); Albumin Level 4.2 g/dL (3.5-5.0); Alkaline Phosphatase 69 U/L (39-117); Anion Gap 16 (12-20); Aspartate Amino Transferase 27 U/L (5-37); Bilirubin Direct 0.1 mg/dL (0.0-0.5); Bilirubin Total 0.3 mg/dL (0.0-1.0); Blood Urea Nitrogen 12 mg/dL (9-16); Carbon Dioxide 20 mmol/L (22-29); Chloride 96 mmol/L (96-108); Creatinine Clr Calc Pharmacy 65.2; Estimated Glomerular Filt Rate > 60; Ethanol 191 mg/dL; Glucose Random 100 mg/dL (60-115); Lipase 13 U/L (8-78); Magnesium 1.7 mg/dL (1.6-2.6); Potassium 3.4 mmol/L (3.3-5.1); Sodium 129 mmol/L (135-145); Total Protein 7.6 g/dL (6.5-8.0)
[2023-10-07 17:44] LABS: Troponin-I High Sensitivity 10.4 ng/L (<3.5-35.0)
[2023-10-07 17:53] LABS: Influenza A PCR NEGATIVE (Negative); Influenza B PCR NEGATIVE (Negative); Resp Syncy Virus RNA Qual PCR NEGATIVE (Negative); SARS COV2 PCR INHOUSE NEGATIVE (Negative)
[2023-10-07 18:24] LABS: Appearance Urine Clear; Color Urine Yellow; Glucose Urine UA Negative (Negative); Leukocyte Esterase Urine Negative (Negative); Nitrite Urine Negative (Negative); PH 5.5 (5.0-9.0); Specific Gravity - Urine <= 1.005 (1.005-1.025); Urine Blood Negative (Negative); Urine Ketones Negative (Negative); Urine Protein Negative (Neg-Trace)
[2023-10-07 18:40] LABS: Amphetamine Screen Urine Not Detected (Not Detect); Barbiturates, Urine Not Detected (Not Detect); Benzodiazepines Screen Urine Not Detected (Not Detect); Buprenorphine Scr Not Detected (Not Detect); Cannabinoid Screen Urine Not Detected (Not Detect); Cocaine Screen Urine Not Detected (Not Detect); Fentanyl, urine Not Detected (Not Detect); Methadone Screen, Urine Not Detected (Not Detect); Opiate Screen Urine Not Detected (Not Detect); Oxycodone Screen Urine Not Detected (Not Detect); Phencyclidine Screen Urine Not Detected (Not Detect)
[2023-10-07] MEDS: ondansetron HCL 4 MG/2 ML VIAL IVPUSH (18:42)
[2023-10-07] MEDS: 0.9 % Sodium Chloride 1,000 ML 999 ML IV (18:43)
[2023-10-07 19:23] VITALS: BP 131/66; PULSE 82; RESP 18; TEMP 36.8; O2SAT 96
[2023-10-07] MEDS: Acetaminophen 325 MG TABLET 975 MG PO (19:54)
[2023-10-07 20:03] VITALS: BP 131/66; PULSE 82; RESP 18; TEMP 36.8; O2SAT 96
--- NOTE | 2023-10-07 20:05 | PC.NURSE ---
D/c instructions provided with assistance from astrobiologist. Pt verbalkized understanding of d/c instuctions. Pt alert an oriented X4, ambulating with steady gait. attempted to call ride but no transportation at this time.Pt verbalized he was ok to walk and would do so.
== END 2023-10-07 20:00 | disposition home or self-care (01) ==
PROVIDERS: Emergency Provider Emergency Medicine
DX: R07.89 Other chest pain (principal); R11.2 Nausea with vomiting, unspecified; M79.10 Myalgia, unspecified site; R06.02 Shortness of breath; Z95.0 Presence of cardiac pacemaker; Z03.818 Encounter for observation for suspected exposure to other biological agents ruled out; Z79.899 Other long term (current) drug therapy
CPT/HCPCS: 0241U; 71045; 80048; 80076; 80307; 81003; 82803; 83690; 83735; 83880; 84484; 85025; 85610; 86140; 93005; 96361; 96374; 99284; 99285; J2405

== ENCOUNTER → 2023-10-07 16:46 | Outpatient (BNV) | payer MEDICAID, SELFPAY | PROVIDERS: Emergency Provider Emergency Medicine; Visit Provider Internal Medicine | DX: R94.31 Abnormal electrocardiogram [ECG] [EKG] (principal) | CPT/HCPCS: 93010 ==

== ENCOUNTER 2023-12-08 11:00 | Emergency (ER) | payer MEDICAID, SELFPAY ==
--- NOTE | ~2023-12-08 | CT_ITS ---
EXAMINATION: CT CHEST WITHOUT IV CONTRAST CT ABDOMEN AND PELVIS WITH CONTRAST CLINICAL INFORMATION: Left chest wall pain after fall with history of rib fractures along with left upper quadrant pain. COMPARISON: CT abdomen and pelvis 09/15/2023, CT chest abdomen pelvis 05/17/2023 TECHNIQUE: Multidetector volumetric imaging was performed of the chest without IV contrast and then through the abdomen and pelvis following administration of 85 mL of Omnipaque 350. Sagittal and coronal reformatted images were obtained on the technologist's workstation. This CT examination was performed using dose optimization techniques as appropriate, variously including the following: *Automated exposure control *Adjustment of mA and/or kV according to patient size (this includes techniques or standardized protocols for targeted exams where dose is matched to indication/reason for exam; i.e. extremities or head) *Use of iterative reconstruction technique DLP: 573 mGy-cm FINDINGS: CHEST: Lung: The diffuse pulmonary infiltrates seen at the time of 05/17/2023 study have cleared. There is mild emphysema and bronchial thickening . No suspicious lung masses, infiltrates or pneumothorax seen. A right lower lobe 4 mm pulmonary nodule is present (7:319). Mediastinum: Status post median sternotomy with right chest wall pacemaker. There is mild cardiac enlargement. Aortic valve prosthesis is present. There is a 1.3 cm short axis right precarinal lymph node but no gross adenopathy. Coronary Artery Calcium: Extensive Pericardium/Pleura: No significant effusion. No pleural mass or thickening. Chest Wall/Axilla: Multiple left side rib fractures are present. Fracture of the sixth left rib anteriorly has periosteal reaction and is subacute/chronic although an associated component cannot be excluded. There are acute fractures seen involving the left seventh, eighth, ninth and 10th ribs laterally with the 10th rib somewhat posterior. There is a fracture which may be subacute involving the right 11th lateral rib with no other right-sided rib fractures seen. ABDOMEN/PELVIS: Peritoneal Space: No significant free air or free fluid identified. Liver, Gallbladder, Biliary Tree: The liver is normal in size, shape, and attenuation. No focal hepatic lesion or biliary ductal dilatation is present. The gallbladder is unremarkable with no evidence of radiopaque gallstones, gallbladder wall thickening, or obvious pericholecystic inflammatory changes. Pancreas: Unremarkable Spleen: Chronic calcification is present in the spleen. No evidence of splenic injury. Adrenal Glands: Unremarkable Kidneys and Ureters: The kidneys are normal in size, shape, and attenuation. No hydronephrosis, hydroureter, or calculi seen. Some renal vascular calcifications are present on the left. No perinephric stranding. A benign tiny cortical Bosniak class I renal cyst is noted on the right which requires no additional imaging or follow up. No solid renal masses are seen. Bladder: Unremarkable Gastrointestinal Tract: The small and large bowel are unremarkable. The appendix is unremarkable. Abdominal Wall: No significant hernia is appreciated. Lymph Nodes: No lymphadenopathy. Vascular: Calcific atherosclerotic changes are present in the aorta and iliofemoral vessels. There is no evidence of an abdominal aortic aneurysm.. The IVC appears unremarkable. PELVIC VISCERA: Minimally prominent prostate. Normal seminal vesicles OSSEUS STRUCTURES: See discussion above regarding rib fractures. Nondisplaced fracture of the left spinous process of L2-L3 and L4. No pelvic fractures are seen. CT/CT abdomen pelvis w IV con IMPRESSION: 1. Multiple left-sided rib fractures as described above. 2. Nondisplaced fractures of the left spinous process of L2 through L4. 3. Other incidental findings as described above including emphysema, 4 mm right lower lobe pulmonary nodule, mild cardiomegaly with aortic valve prosthesis, coronary artery disease, calcified spleen, PVD, mildly prominent prostate and other findings described above. Fleischner guidelines were followed. Electronically signed by: Deniz Loo MD 12/08/2023 06:49 PM EDT
--- NOTE | ~2023-12-08 | XR_ITS ---
EXAMINATION: XR CHEST CLINICAL INFORMATION: Chest pain. COMPARISON: 09/15/2023 TECHNIQUE: Frontal view of the chest was obtained. FINDINGS: Right pectoral pacemaker with leads terminating in the atrium and right ventricle. Status post aortic valve annuloplasty and coronary stenting. Surgical clips in the left axilla. Cardiac and mediastinal contours are normal. No consolidation, pneumothorax, or pleural effusion. Pulmonary vasculature is unremarkable. No acute osseous findings. XR/XR chest 1V IMPRESSION: No acute pulmonary findings. Electronically signed by: Keron Malcolm MD 12/08/2023 03:54 PM EDT
--- NOTE | ~2023-12-08 | CT_ITS ---
EXAM: CT scan of the head and cervical spine. INDICATION: s/p fall on thinners TECHNIQUE: A noncontrast CT scan was performed from the skull base to the vertex. A noncontrast CT scan of the cervical spine was performed from the base of the skull through T1 at 2.5 mm and 1.25 mm collimation. Coronal and sagittal reformats were obtained at the acquisition workstation. This CT examination was performed using dose optimization techniques as appropriate, variously including the following: *Automated exposure control *Adjustment of mA and/or kV according to patient size (this includes techniques or standardized protocols for targeted exams where dose is matched to indication/reason for exam; i.e. extremities or head) *Use of iterative reconstruction technique DLP: 633 and 426 mGy-cm COMPARISON: Baseline 05/24/2023 FINDINGS: Head: There is no evidence of acute intracranial hemorrhage or territorial infarction. [place]-white matter differentiation is preserved. No abnormal mass effect or midline shift. No extra-axial fluid collections. Similar degree of encephalomalacia right temporal lobe and minimally left temporal lobe similar to baseline. Left craniotomy changes. Scattered periventricular and deep white matter hypodensities consistent with microangiopathy. The ventricles and sulcal spaces are proportional without hydrocephalus. No acute osseous or soft tissue abnormalities. The mastoid air cells and visualized portions of the paranasal sinuses are well aerated. Cervical Spine: The atlantooccipital and atlantoaxial articulations remain well aligned. Reversal of the normal cervical lordosis. Otherwise, there is anatomic alignment of the vertebral bodies and posterior elements. No evidence of acute fracture or subluxation. The vertebral body heights and disc spaces are notable for relatively pronounced degenerative disc space narrowing at C5-6 and C6-7. There is no prevertebral soft tissue swelling. The thyroid gland and remaining cervical soft tissues are normal in appearance. The lung apices demonstrate no abnormalities. CT/CT cervical spine wo IV con IMPRESSION: No acute intracranial pathology. No acute fracture subluxation cervical spine. Electronically signed by: Vincent Macedo MD 12/08/2023 06:48 PM EDT
--- NOTE | 2023-12-08 11:17 | ECG_ITS ---
Test Reason : CHEST PAIN Blood Pressure : / mmHG Vent. Rate : 098 BPM Atrial Rate : 098 BPM P-R Int : 146 ms QRS Dur : 184 ms QT Int : 434 ms P-R-T Axes : 011 046 149 degrees QTc Int : 554 ms Atrial-sensed ventricular-paced rhythm Abnormal ECG When compared with ECG of 07-OCT-2023 16:46, Vent. rate has increased BY 18 BPM Referred By: Generic ED Physician Electronically Signed By:NETTA CID
[2023-12-08 11:20] VITALS: BP 130/80; PULSE 108; O2SAT 97
[2023-12-08 11:26] VITALS: BP 124/71; PULSE 96; RESP 16; TEMP 37; O2SAT 97; BMI 25.5
[2023-12-08 11:49] LABS: MANUAL DIFF FLAG NO
[2023-12-08 11:50] LABS: Basophils Absolute Auto 0.1 X10*3/uL (0.0-0.2); Eosinophils Absolute Auto 0.1 X10*3/uL (0.0-0.4); Eosinophils Percent Auto 2.1 % (0-4); Hematocrit 36.9 % (42.0-52.0); Hemoglobin 11.9 g/dl (14.0-18.0); Imm Gran Abs Auto 0.01 X10*3/uL (0.00-0.03); Imm Gran Pct Auto 0.2 % (0.0-0.4); Lymphocytes Absolute Auto 1.2 X10*3/uL (1.2-4.9); Lymphocytes Percent Auto 20.7 % (20-40); Mean Corpuscular HGB Conc 32.2 g/dl (31.0-36.0); Mean Corpuscular Hemoglobin 25.6 pg (27.0-33.0); Mean Corpuscular Volume 79.5 fL (80.0-98.0); Mean Platelet Volume 8.2 fL (9.4-12.4); Monocytes Absolute Auto 0.5 X10*3/uL (0.1-1.2); Monocytes Percent Auto 9.2 % (2-11); Neutrophils Absolute Auto 3.9 x10*3/uL (2.0-8.3); Neutrophils Percent Auto 66.8 % (45-73); Platelet Count 347 X10*3/uL (160-400); Red Blood Count 4.64 X10*6/uL (4.60-5.80); Red Cell Distribution Width 18.7 % (11.0-16.0); White Blood Count 5.8 X10*3/uL (4.8-10.8)
--- NOTE | 2023-12-08 11:54 | ED.CHESTPAIN ---
HPI - Chest Pain General Chief Complaint: Chest Pain Stated Complaint: CP SINCE FALL 3W AGO,VOMITING TODAY PER EMS Time Seen by Provider: 12/08/23 11:53 Source: patient Mode of arrival: ambulatory Limitations: language barrier History of Present Illness HPI narrative: This is a 63yom with a pmhx of alcohol abuse, alcoholic liver disease, HFrEF, cocaine abuse, CAD s/p CABG, HTN, HLD, history of AICD, Harrell's esophagus, CABG, history of aortic valve replacement on Warfarin who presents for evaluation of left chest wall pain, nausea, vomiting and diarrhea. Patient states he fells onto a small heater about 4 weeks ago. He states he was seen at [facility] and found to have rib fractures. He states he was in the hospital for about a week. He states he fell again a couple days ago and states his left side his hurting again. He states he also hit his head. He states he passed out a little bit . He states no neck pain or paresthesias. He states no chest pain or dyspnea. He states emesis and diarrhea for a few days. He states no hematemesis, melena or hematochezia. He states no urinary symptoms. He states no fevers or chills. He states he has not had any alcohol today. He states that last time he drank alcohol was over the weekend. Related Data Home Medications ?Medication ?Instructions ?Recorded ?Confirmed melatonin 5 mg tablet 2 tab PO BEDTIME PRN insomnia 10/18/20 09/15/23 atorvastatin 20 mg tablet 20 mg PO DAILY 11/18/20 09/15/23 blood pressure test kit-large #1 ea 11/18/20 02/09/23 folic acid 1 mg tablet 1 mg PO DAILY 11/18/20 09/15/23 lidocaine 5 % topical patch 1 patch topical DAILY 11/18/20 09/15/23 magnesium oxide 400 mg (241.3 mg 400 mg PO BID 11/18/20 09/15/23 magnesium) tablet metoprolol succinate 50 mg 50 mg PO DAILY 11/18/20 09/15/23 tablet,extended release 24 hr pantoprazole 40 mg tablet,delayed 40 mg PO BID 11/18/20 09/15/23 release thiamine HCl (vitamin B1) 100 mg 100 mg PO DAILY 11/18/20 09/15/23 tablet zolpidem 10 mg tablet 10 mg PO BEDTIME PRN Insomnia 12/02/20 09/15/23 olanzapine 5 mg tablet 1 tab PO BEDTIME 10/10/21 09/15/23 acetaminophen 500 mg tablet 500 mg PO BID PRN Mild Pain (Scale 05/11/22 09/15/23 Score 1-4) albuterol sulfate 90 mcg/actuation 2 puff inhalation Q4H PRN 05/11/22 09/15/23 aerosol inhaler (Ventolin HFA) Respiratory Distress buspirone 10 mg tablet 10 mg PO TID 05/11/22 09/15/23 sacubitril 24 mg-valsartan 26 mg 1 tab PO BID 06/12/22 09/15/23 tablet (Entresto) budesonide-formoterol HFA 160 2 puff inhalation BID 02/09/23 09/15/23 mcg-4.5 mcg/actuation aerosol inhaler (Symbicort) clopidogrel 75 mg tablet 75 mg PO DAILY 05/17/23 09/15/23 acamprosate 333 mg tablet,delayed 666 mg PO BID 09/15/23 09/15/23 release warfarin 2 mg tablet 2 mg PO DAILY 09/15/23 09/15/23 Previous Rx's ?Medication ?Instructions ?Recorded ondansetron 4 mg disintegrating 4 mg PO Q8H PRN nausea and 04/30/23 tablet vomiting #20 tabs furosemide 40 mg tablet 40 mg PO DAILY #30 tabs 05/29/23 Allergies Allergy/AdvReac Type Severity Reaction Status Date / Time lorazepam [From ATIVAN] AdvReac Severe OPPOSITE Verified 12/08/23 11:27 EFFECT PSYCOTIC EFECTS Review of Systems Review of Systems: ROS as per HPI [facility] Past Medical History Medical History Sepsis Rhabdomyolysis EDGAR (acute kidney injury) Supratherapeutic INR Fall Acute hyponatremia Intracranial hemorrhage Coronary artery disease Chronic systolic CHF (congestive heart failure) Hypertension Short-segment Harrell's esophagus Pacemaker Skull fracture Alcoholic liver disease Cocaine abuse Alcohol abuse Surgical History (Updated 09/16/23 @ 15:33 by Ravi Smith MD) Aortic valve replaced S/P CABG (coronary artery bypass graft) H/O aortic valve replacement History of esophagogastroduodenoscopy (EGD) Social History Social History Household Members: None Housing: Apartment Do you presently have visiting nurse or other home services: Yes Alcohol intake: current Alcohol intake frequency: a few times a week Alcohol type: beer Comment: pt refused, to have assistance with ambulation, chair and bed alarm Patient Tobacco Use Status: Current everyday Tobacco user Tobacco use type: Cigarette Cigarette Packs Per Day: 1 Cigarettes Per Day: 20.0 Second Hand Smoke Exposure: No Substance Use Type: Marijuana Advance Directives: Yes Advance Directives on File: Yes Advance Directives Date on File: 10/11/21 Do you have a plan to hurt others: No Plan service: No Current occupational status: unemployed Physical Exam Vital Signs: Vital Signs: Last Vital Signs Temp 98.1 F 12/08/23 19:35 Pulse 89 12/08/23 19:35 Resp 19 12/08/23 19:35 BP 138/71 12/08/23 19:35 Pulse Ox 98 12/08/23 19:35 O2 Del Method Room Air 12/08/23 19:35 BMI result Body Mass Index 25.5 Gen: NAD, AOx3 HEENT: NCAT, EOMI, normal conjunctiva, no periorbital postauricular ecchymosis CV: RRR, 2+ bilateral radial pulses Pulm: CTAB, no increased work of breathing GI: Soft, NTND, no rebound, guarding or rigidity Neuro: Grossly non focal, GCS 15 MSK: No extremity deformity, tenderness palpation of the left chest wall without overlying skin changes, no midline vertebral tenderness to palpation or palpable step-offs, full active range of motion with neck flexion/extension and lateral 45 degree rotation Medications Administered Discontinued Medications Generic Name Dose Route Start Last Admin Trade Name Freq PRN Reason Stop Dose Admin Lactated Ringer's 500 mls @ 500 mls/hr 12/08/23 12:15 12/08/23 14:49 Lr IV 12/08/23 13:14 Infused .Q1H CAMMY Infusion Phytonadione 5 mg/ Sodium 50.5 mls @ 51 mls/hr 12/08/23 12:43 12/08/23 18:31 Chloride IV 12/08/23 13:42 Infused ONCE ONE Infusion Iohexol 100 ml 12/08/23 14:37 12/08/23 14:37 Iohexol 350 Mg/Ml 100 Ml Infus..Btl IV 12/08/23 14:38 85 ml ONCE ONE Administration Morphine Sulfate 2 mg 12/08/23 12:16 12/08/23 12:58 Morphine Sulfate 2 Mg/Ml Cartridge IVPUSH 12/08/23 12:17 2 mg ONCE ONE Administration Protocol Ondansetron HCl 4 mg 12/08/23 12:14 12/08/23 12:58 Ondansetron Hcl 4 Mg/2 Ml Vial IVPUSH 12/08/23 12:15 4 mg ONCE ONE Administration Procedures EJ/Peripheral Line Arm L: Skin Cleansed in Sterile Fashion: Yes Size (gauge): 20 IV Secured and Dressing Applied: Yes Patient Tolerated Procedure: well Additional Comments: Ultrasound guided 2.5 inch 20 gauge peripheral IV Medical Decision Making Medical Decision Making MDM Narrative: Differential diagnosis includes, but is not limited to rib contusion, rib fracture pneumothorax, hemothorax, intracranial hemorrhage, gastroenteritis, injury, electrolyte abnormality. Patient is treated supportively with 500cc IV LR at 500cc/hr, 2mg IV morphine, 4mg IV Zofran. Patient is afebrile and hemodynamically stable on room air. Exam appears benign and reassuring. 1245 - I am notified by lab of critical INR of 13.4. Patient is hemodynamically stable with apparent benign exam as above. He is hemodynamically stable with no apparent clinically significant/over life-threatening bleeding at this time. Thus, will provide 5mg IV Vitamin K for reversal at this time. Of note PT 163.5 and aPTT 62.4. Patient is stable awaiting CT imaging for further evaluation. Hemoglobin stable at 11.9 (previous 10.3). CMP overall reassuring with Na 134, CO2 19, Glu 132, AST 42. Lipase WNL. I reviewed radiology impression of diagnostic imaging as below, which are notable for multiple acute left-sided rib fractures involving left 7th, 8th, 9th and 10th ribs laterally with the 10th rib somewhat posterior. There is a fracture which may be subacute involving the right 11th lateral rib. Nondisplaced fractures of the left spinous process L2 through L4. Otherwise CT images are trauma negative. Given above acute trauma and supratherapeutic INR, I discussed case and management with [facility] and patient is subsequently accepted for transfer there for trauma evaluation. Patient is accepted under care of Dr. Gtz. Critical Care Time: A total of 45 minutes spent in direct patient care with coordinating critical resuscitation, procedures, reviewing records, discussing with consultants, reviewing labs, and/or managing patient. Admission/Observation Consideration of admission/observation: Escalation of care including admission/observation considered Lab Data MDM Lab Attestation statement: I reviewed the patient's lab results. 12/08/23 11:45 12/08/23 11:45 Labs: Lab Results 12/08/23 Range/Units 11:45 WBC 5.8 (4.8-10.8) X10*3/uL RBC 4.64 (4.60-5.80) X10*6/uL Hgb 11.9 L (14.0-18.0) g/dl Hct 36.9 L (42.0-52.0) % MCV 79.5 L (80.0-98.0) fL MCH 25.6 L (27.0-33.0) pg MCHC 32.2 (31.0-36.0) g/dl RDW 18.7 H (11.0-16.0) % Plt Count 347 (160-400) X10*3/uL MPV 8.2 L (9.4-12.4) fL Immature Gran % (Auto) 0.2 (0.0-0.4) % Neut % (Auto) 66.8 (45-73) % Lymph % (Auto) 20.7 (20-40) % [place] % (Auto) 9.2 (2-11) % Eos % (Auto) 2.1 (0-4) % Baso % (Auto) 1.0 (0-2) % Lymph # (Auto) 1.2 (1.2-4.9) X10*3/uL [place] # (Auto) 0.5 (0.1-1.2) X10*3/uL Eos # (Auto) 0.1 (0.0-0.4) X10*3/uL Baso # (Auto) 0.1 (0.0-0.2) X10*3/uL Abs Immat Gran (auto) 0.01 (0.00-0.03) X10*3/uL Absolute Neuts (auto) 3.9 (2.0-8.3) x10*3/uL Absolute Nucleated RBC 0.000 (0.0-0.012) X10*3/uL Nucleated RBC % (auto) 0.0 (0.0-0.2) /100WBC PT 163.5 H D (11.1-13.3) SEC INR 13.4 H* D (0.9-1.1) APTT 62.4 H* (26.0-36.8) SEC Hold Blue Top SEE NOTE Sodium 134 L (135-145) mmol/L Potassium 4.9 D (3.3-5.1) mmol/L Chloride 102 (96-108) mmol/L Carbon Dioxide 19 L (22-29) mmol/L Anion Gap 18 (12-20) BUN 10 (9-16) mg/dL Creatinine 1.17 (0.5-1.4) mg/dL Estim Creat Clear Calc 67.5 Estimated GFR > 60 Random Glucose 132 H (60-115) mg/dL Calcium 9.7 D (8.4-10.2) mg/dL Total Bilirubin 0.6 (0.0-1.0) mg/dL AST 42 H (5-37) U/L ALT 27 (0-40) U/L Alkaline Phosphatase 92 (39-117) U/L Troponin I High Sens 7.0 (<3.5-35.0) ng/L Total Protein 8.6 H (6.5-8.0) g/dL Albumin 4.6 (3.5-5.0) g/dL Lipase 9 (8-78) U/L Independent Interpretation I performed an independent interpretation of an: EKG and Plain X-Ray Interpretation: I independently reviewed and interpreted patient's chest x-ray which demonstrates no focal consolidation or pneumothorax. I independently reviewed injury the patient's EKG which demonstrates paced rhythm at 98 beats per minute, DC 146, QRS 184, QTC 554, no STEMI (compared to prior EKG October 07, 2023 there are no diagnostic ischemic changes) Radiology Impression Discussion of test interpretation with radiology: I have reviewed the radiologist's reading. Radiologist Impression: XR/XR chest 1V IMPRESSION: No active cardiopulmonary disease Dictated By: Fatmata Veronica MD Signed By: <Electronically signed by Fatmata Veronica MD in OV> 10/07/[address]/CT head/brain wo IV con IMPRESSION: No acute intracranial pathology. No acute fracture subluxation cervical spine. Electronically signed by: Vincent Macedo MD 12/08/2023 06:48 PM EDT RP Dictated By: Vincent Macedo MD Signed By: <Electronically signed by Vincent Macedo MD in [place]> 12/08/[address]/CT abdomen pelvis w IV con IMPRESSION: 1. Multiple left-sided rib fractures as described above. 2. Nondisplaced fractures of the left spinous process of L2 through L4. 3. Other incidental findings as described above including emphysema, 4 mm right lower lobe pulmonary nodule, mild cardiomegaly with aortic valve prosthesis, coronary artery disease, calcified spleen, PVD, mildly prominent prostate and other findings described above. Fleischner guidelines were followed. Electronically signed by: Deniz Loo MD 12/08/2023 06:49 PM EDT RP Dictated By: Deniz Loo MD Signed By: <Electronically signed by Deniz Loo MD in OV> 12/08/[address]/CT cervical spine wo IV con IMPRESSION: No acute intracranial pathology. No acute fracture subluxation cervical spine. Electronically signed by: Vincent Macedo MD 12/08/2023 06:48 PM EDT RP Dictated By: Vincent Macedo MD Signed By: <Electronically signed by Vincent Macedo MD in OV> 12/08/23 184 Discharge Plan Discharge Clinical Impression: Multiple fractures of left lower extremity and ribs, Supratherapeutic INR Patient Disposition: [facility] Transfer Details: Transferred to [facility] ED under care of Dr. Gtz Prescriptions: No Action melatonin 5 mg tablet 2 tab PO BEDTIME PRN (Reason: insomnia) olanzapine 5 mg tablet 1 tab PO BEDTIME acetaminophen 500 mg Tablet 500 mg PO BID PRN (Reason: Mild Pain (Scale Score 1-4)) buspirone 10 mg Tablet 10 mg PO TID albuterol sulfate [Ventolin HFA] 90 mcg/actuation Hfa Aerosol Inhaler 2 puff INHALATION Q4H PRN (Reason: Respiratory Distress) acamprosate 333 mg tablet,delayed release (DR/EC) 666 mg PO BID warfarin 2 mg Tablet 2 mg PO DAILY budesonide-formoterol [Symbicort] 160-4.5 mcg/actuation HFA aerosol inhaler 2 puff inhalation BID ondansetron 4 mg tablet,disintegrating 4 mg PO Q8H PRN (Reason: nausea and vomiting) Qty: 20 0RF clopidogrel 75 mg tablet 75 mg PO DAILY furosemide 40 mg Tablet 40 mg PO DAILY Qty: 30 0RF Protocol: Hold for SBP< HOLD for SBP < : 90 zolpidem 10 mg tablet 10 mg PO BEDTIME PRN (Reason: Insomnia) pantoprazole 40 mg tablet,delayed release (DR/EC) 40 mg PO BID magnesium oxide 400 mg (241.3 mg magnesium) tablet 400 mg PO BID thiamine HCl (vitamin B1) 100 mg tablet 100 mg PO DAILY metoprolol succinate 50 mg tablet extended release 24 hr 50 mg PO DAILY atorvastatin 20 mg tablet 20 mg PO DAILY (DME) blood pressure test kit-large Kit See Rx Instructions .ROUTE DIRECTED Qty: 1 Rx Instructions: As directed folic acid 1 mg tablet 1 mg PO DAILY lidocaine 5 % adhesive patch,medicated 1 patch topical DAILY Protocol: Apply to: Apply to: AFFECTED AREA Entresto 24-26 mg tablet 1 tab PO BID Print Language: Malagasy
[2023-12-08 12:05] LABS: Alanine Aminotransferase 27 U/L (0-40); Albumin Level 4.6 g/dL (3.5-5.0); Alkaline Phosphatase 92 U/L (39-117); Anion Gap 18 (12-20); Aspartate Amino Transferase 42 U/L (5-37); Bilirubin Total 0.6 mg/dL (0.0-1.0); Blood Urea Nitrogen 10 mg/dL (9-16); Calcium 9.7 mg/dL (8.4-10.2); Carbon Dioxide 19 mmol/L (22-29); Chloride 102 mmol/L (96-108); Creatinine Clr Calc Pharmacy 67.5; Estimated Glomerular Filt Rate > 60; Glucose Random 132 mg/dL (60-115); Potassium 4.9 mmol/L (3.3-5.1); Sodium 134 mmol/L (135-145); Total Protein 8.6 g/dL (6.5-8.0)
[2023-12-08 12:30] VITALS: BP 136/74; PULSE 87; RESP 19; TEMP 36.9; O2SAT 99
[2023-12-08 12:36] LABS: Lipase 9 U/L (8-78)
[2023-12-08 12:38] LABS: Prothrombin Time 163.5 SEC (11.1-13.3)
[2023-12-08 12:44] LABS: INTERNATIONAL NORM RATIO 13.4 (0.9-1.1); Partial Thromboplastin Time 62.4 SEC (26.0-36.8)
[2023-12-08] MEDS: Morphine Sulfate 2 MG/ML CARTRIDGE IVPUSH ×2 (12:58→20:10)
[2023-12-08] MEDS: Lactated Ringers 500 ML IV (12:58)
[2023-12-08] MEDS: ondansetron HCL 4 MG/2 ML VIAL IVPUSH (12:58)
--- NOTE | 2023-12-08 13:18 | PC.NURSE ---
patient difficult IV stick, upon ct scan bringing patient for scan patient was noted to have redness to IV site. denies any pain/itchiness to the area. IV was removed, attempted to start new IV unsuccessfully.
--- NOTE | 2023-12-08 14:33 | PC.NURSE ---
provider at bedside for ultrasound guided IV. call placed to pharmacy concerning vitamin K - state it is okay to continue to administer at this time. at ct scan.
[2023-12-08] MEDS: iohexoL 350 MG/ML 100 ML INFUS..BTL IV (14:37)
[2023-12-08] MEDS: Phytonadione (Vit K1) 5 MG in 0.9 % Sodium Chloride 50 ML 51 MG IV (14:55)
--- NOTE | 2023-12-08 14:56 | PC.NURSE ---
vitamin k infusing at this time, patient requesting pain medication
[2023-12-08 14:57] VITALS: BP 143/78; PULSE 82; RESP 20; TEMP 36.9; O2SAT 100
[2023-12-08 19:35] VITALS: BP 138/71; PULSE 89; RESP 19; TEMP 36.7; O2SAT 98
[2023-12-08] MEDS: Lidocaine 4 % Patch ADH..PATCH 1 PATCH TRANSDERMA (20:10)
[2023-12-08] MEDS: oxyCODONE HCl Immed Release 5 MG TABLET PO (20:11)
[2023-12-08 20:47] VITALS: BP 138/71; PULSE 89; RESP 19; TEMP 36.7; O2SAT 98
--- NOTE | 2023-12-08 20:47 | PC.NURSE ---
pt is axox4 report given to [facility] [place] passenger vessel chefKHAI Kendall transferred with mabel. at time of d/c resp even and unlabored, landy, vss.
== END 2023-12-08 20:00 | disposition short-term general hospital (02) ==
PROVIDERS: Emergency Provider Emergency Medicine
DX: S22.49XA Multiple fractures of ribs, unspecified side, initial encounter for closed fracture (principal); S27.9XXA Injury of unspecified intrathoracic organ, initial encounter; S32.048A Other fracture of fourth lumbar vertebra, initial encounter for closed fracture; S32.028A Other fracture of second lumbar vertebra, initial encounter for closed fracture; W20.8XXA Other cause of strike by thrown, projected or falling object, initial encounter; Y93.9 Activity, unspecified; Y92.9 Unspecified place or not applicable; Y99.9 Unspecified external cause status; R79.1 Abnormal coagulation profile; R07.9 Chest pain, unspecified; R11.2 Nausea with vomiting, unspecified; R19.7 Diarrhea, unspecified; I50.20 Unspecified systolic (congestive) heart failure; R10.12 Left upper quadrant pain; Z95.810 Presence of automatic (implantable) cardiac defibrillator; Z95.1 Presence of aortocoronary bypass graft; Z79.899 Other long term (current) drug therapy
CPT/HCPCS: 36415; 70450; 71045; 71250; 72125; 74177; 80053; 83690; 84484; 85025; 85610; 85730; 93005; 96361; 96365; 96366; 96375; 96376; 99285; J2270; J2405; J3430; J7120; Q9967

== ENCOUNTER 2023-12-27 11:38 | Outpatient (REF) | payer MEDICAID, SELFPAY ==
[2023-12-27 13:39] LABS: MANUAL DIFF FLAG NO
[2023-12-27 13:42] LABS: Basophils Absolute Auto 0.1 X10*3/uL (0.0-0.2); Basophils Percent Auto 0.9 % (0-2); Eosinophils Absolute Auto 0.2 X10*3/uL (0.0-0.4); Eosinophils Percent Auto 2.4 % (0-4); Hematocrit 31.1 % (42.0-52.0); Hemoglobin 9.7 g/dl (14.0-18.0); Imm Gran Abs Auto 0.02 X10*3/uL (0.00-0.03); Imm Gran Pct Auto 0.3 % (0.0-0.4); Lymphocytes Absolute Auto 1.7 X10*3/uL (1.2-4.9); Lymphocytes Percent Auto 25.3 % (20-40); Mean Corpuscular HGB Conc 31.2 g/dl (31.0-36.0); Mean Corpuscular Hemoglobin 25.9 pg (27.0-33.0); Mean Corpuscular Volume 83.2 fL (80.0-98.0); Mean Platelet Volume 9.5 fL (9.4-12.4); Monocytes Absolute Auto 0.6 X10*3/uL (0.1-1.2); Monocytes Percent Auto 8.8 % (2-11); Neutrophils Absolute Auto 4.1 x10*3/uL (2.0-8.3); Neutrophils Percent Auto 62.3 % (45-73); Platelet Count 441 X10*3/uL (160-400); Red Blood Count 3.74 X10*6/uL (4.60-5.80); Red Cell Distribution Width 20.2 % (11.0-16.0); White Blood Count 6.6 X10*3/uL (4.8-10.8)
[2023-12-27 14:13] LABS: Alanine Aminotransferase 13 U/L (0-40); Albumin Level 4.2 g/dL (3.5-5.0); Alkaline Phosphatase 71 U/L (39-117); Aspartate Amino Transferase 15 U/L (5-37); Bilirubin Direct < 0.2 mg/dL (0.0-0.5); Bilirubin Total 0.2 mg/dL (0.0-1.0); Total Protein 7.6 g/dL (6.5-8.0)
== END 2023-12-27 11:39 | disposition home or self-care (01) ==
LOC: HO.HHCL 11:38
PROVIDERS: Visit Provider Family Medicine
DX: K70.9 Alcoholic liver disease, unspecified (principal)
CPT/HCPCS: 36415; 80076; 85025

== ENCOUNTER 2024-01-19 09:14 | Outpatient (REF) | payer MEDICAID, SELFPAY ==
[2024-01-19 11:44] LABS: MANUAL DIFF FLAG NO
[2024-01-19 11:55] LABS: Basophils Percent Auto 0.7 % (0-2); Eosinophils Absolute Auto 0.2 X10*3/uL (0.0-0.4); Eosinophils Percent Auto 3.6 % (0-4); Hematocrit 29.3 % (42.0-52.0); Hemoglobin 9.3 g/dl (14.0-18.0); Imm Gran Abs Auto 0.01 X10*3/uL (0.00-0.03); Imm Gran Pct Auto 0.2 % (0.0-0.4); Lymphocytes Absolute Auto 1.7 X10*3/uL (1.2-4.9); Lymphocytes Percent Auto 39.4 % (20-40); Mean Corpuscular HGB Conc 31.7 g/dl (31.0-36.0); Mean Corpuscular Hemoglobin 26.1 pg (27.0-33.0); Mean Corpuscular Volume 82.1 fL (80.0-98.0); Mean Platelet Volume 9.7 fL (9.4-12.4); Monocytes Absolute Auto 0.6 X10*3/uL (0.1-1.2); Neutrophils Absolute Auto 1.9 x10*3/uL (2.0-8.3); Neutrophils Percent Auto 42.1 % (45-73); Platelet Count 333 X10*3/uL (160-400); Red Blood Count 3.57 X10*6/uL (4.60-5.80); Red Cell Distribution Width 21.4 % (11.0-16.0); White Blood Count 4.4 X10*3/uL (4.8-10.8)
[2024-01-19 11:58] LABS: INTERNATIONAL NORM RATIO 4.4 (0.9-1.1); Prothrombin Time 51.4 SEC (10.9-12.4)
[2024-01-19 12:21] LABS: Alanine Aminotransferase 171 U/L (0-40); Albumin Level 3.8 g/dL (3.5-5.0); Alkaline Phosphatase 64 U/L (39-117); Anion Gap 13 (12-20); Aspartate Amino Transferase 26 U/L (5-37); Bilirubin Direct 0.2 mg/dL (0.0-0.5); Bilirubin Total 0.4 mg/dL (0.0-1.0); Blood Urea Nitrogen 11 mg/dL (9-16); Calcium 8.9 mg/dL (8.4-10.2); Carbon Dioxide 19 mmol/L (22-29); Chloride 107 mmol/L (96-108); Estimated Glomerular Filt Rate > 60; Glucose Random 85 mg/dL (60-115); Iron 23 mcg/dL (45-160); Percent Iron Saturation 6 % (15-50); Potassium 4.3 mmol/L (3.3-5.1); Sodium 135 mmol/L (135-145); Total Iron Binding Capacity 357 mcg/dL (228-428); Total Protein 6.8 g/dL (6.5-8.0); Unsaturated Iron Binding 334 ug/dL
[2024-01-19 12:31] LABS: Ferritin 72 ng/mL (20-250); TSH reflex Free T4 0.38 uIU/mL (0.32-4.0)
[2024-01-19 12:42] LABS: Folate 14.8 ng/mL (> or = 4.0); Vitamin B12 301 pg/mL (200-900)
== END 2024-01-19 09:15 | disposition home or self-care (01) ==
LOC: HO.HHCL 09:14
PROVIDERS: Family Medicine; Visit Provider Family Medicine
DX: Z95.2 Presence of prosthetic heart valve (principal); D64.9 Anemia, unspecified; R74.01 Elevation of levels of liver transaminase levels; N17.9 Acute kidney failure, unspecified
CPT/HCPCS: 36415; 80048; 80076; 82607; 82728; 82746; 83540; 84443; 85025; 85610

== ENCOUNTER 2024-01-23 01:56 | Inpatient (IN) | payer MEDICAID, SELFPAY ==
--- NOTE | ~2024-01-23 | CT_ITS ---
EXAMINATION: CT HEAD WITHOUT CONTRAST CT CERVICAL SPINE WITHOUT CONTRAST CLINICAL INFORMATION: Fall. Pain. COMPARISON: None available. TECHNIQUE: Contiguous axial imaging was performed through the head and cervical spine without intravenous administration of contrast. Sagittal and coronal reformatted images also obtained. This CT examination was performed using dose optimization techniques as appropriate, variously including the following: *Automated exposure control *Adjustment of mA and/or kV according to patient size (this includes techniques or standardized protocols for targeted exams where dose is matched to indication/reason for exam; i.e. extremities or head) *Use of iterative reconstruction technique DLP: 1385 mGy-cm FINDINGS: There is mild cerebral volume loss with prominence of the lateral and the third ventricles. The cortical sulci are widened appropriately. There is minimal bilateral periventricular and central white matter diminished attenuation. Bitemporal and inferior right frontal encephalomalacia is again noted. There is no acute territorial defect, hemorrhage or midline shift. The extra-axial spaces are unremarkable. Calvarium/scalp: Intact. Maxillofacial sinuses and mastoids: Clear as visualized. Cervical spine: There is mild curvature of the cervical spine convex to the right on the coronal images. There is straightening of the expected cervical spine curvature on the sagittal images. There is mild to moderate diffuse cervical disc degenerative change most pronounced at C5-6 and C6-7 with loss of disc space, endplate change and posterior osteophytes associated with diffuse [id number] facet osteoarthritic hypertrophic change with multilevel mild spinal canal and multilevel neuroforaminal narrowing moderate at C5-6 and C6-7 on the right and mild at the remaining levels. There is no fracture. The soft tissues are unremarkable. The visualized upper lung colon are clear. CT/CT head/brain wo IV con IMPRESSION: 1. No acute intracranial pathology. 2. Mild cerebral volume loss and minimal chronic white matter microangiopathy. 3. Bitemporal and inferior right frontal encephalomalacia. 4. No acute cervical spine abnormality. 5. Multilevel cervical spondylosis and facet arthropathy. Electronically signed by: Buster Vásquez MD 01/23/2024 04:40 AM EDT
--- NOTE | ~2024-01-23 | CT_ITS ---
EXAMINATION: CT HEAD WITHOUT CONTRAST CT CERVICAL SPINE WITHOUT CONTRAST CLINICAL INFORMATION: Fall. Pain. COMPARISON: None available. TECHNIQUE: Contiguous axial imaging was performed through the head and cervical spine without intravenous administration of contrast. Sagittal and coronal reformatted images also obtained. This CT examination was performed using dose optimization techniques as appropriate, variously including the following: *Automated exposure control *Adjustment of mA and/or kV according to patient size (this includes techniques or standardized protocols for targeted exams where dose is matched to indication/reason for exam; i.e. extremities or head) *Use of iterative reconstruction technique DLP: 1385 mGy-cm FINDINGS: There is mild cerebral volume loss with prominence of the lateral and the third ventricles. The cortical sulci are widened appropriately. There is minimal bilateral periventricular and central white matter diminished attenuation. Bitemporal and inferior right frontal encephalomalacia is again noted. There is no acute territorial defect, hemorrhage or midline shift. The extra-axial spaces are unremarkable. Calvarium/scalp: Intact. Maxillofacial sinuses and mastoids: Clear as visualized. Cervical spine: There is mild curvature of the cervical spine convex to the right on the coronal images. There is straightening of the expected cervical spine curvature on the sagittal images. There is mild to moderate diffuse cervical disc degenerative change most pronounced at C5-6 and C6-7 with loss of disc space, endplate change and posterior osteophytes associated with diffuse [id number] facet osteoarthritic hypertrophic change with multilevel mild spinal canal and multilevel neuroforaminal narrowing moderate at C5-6 and C6-7 on the right and mild at the remaining levels. There is no fracture. The soft tissues are unremarkable. The visualized upper lung colon are clear. CT/CT cervical spine wo IV con IMPRESSION: 1. No acute intracranial pathology. 2. Mild cerebral volume loss and minimal chronic white matter microangiopathy. 3. Bitemporal and inferior right frontal encephalomalacia. 4. No acute cervical spine abnormality. 5. Multilevel cervical spondylosis and facet arthropathy. Electronically signed by: Buster Vásquez MD 01/23/2024 04:40 AM EDT
[2024-01-23 02:05] VITALS: BP 118/72; PULSE 84; O2SAT 99
[2024-01-23 02:06] VITALS: BP 121/70; PULSE 83; RESP 18; TEMP 36.4; O2SAT 99; BMI 28.0
--- NOTE | 2024-01-23 02:31 | ECG_ITS ---
Test Reason : CP Blood Pressure : / mmHG Vent. Rate : 080 BPM Atrial Rate : 080 BPM P-R Int : 106 ms QRS Dur : 212 ms QT Int : 490 ms P-R-T Axes : 006 039 178 degrees QTc Int : 565 ms Atrial-sensed ventricular-paced rhythm Abnormal ECG When compared with ECG of 08-DEC-2023 11:17, Vent. rate has decreased BY 18 BPM Referred By: Andres Stewart Electronically Signed By:YENIFER JJ
--- NOTE | 2024-01-23 02:56 | ED_ITS ---
HPI - Fall General Chief Complaint: Fall Stated Complaint: Fall Time Seen by Provider: 01/23/24 02:24 Source: patient Mode of arrival: ambulatory Limitations: no limitations History of Present Illness ED Provider: anthony LIU Narrative: 63 years old man with past medical history significant for alcohol abuse on acamprosate, HFrEF (45-50 %), aortic valve replacement on warfarin, alcoholic liver disease, CAD s/p CABG, s/p AICD, hyperlipidemia and essential hypertension comes here as he had few drinks earlier was at the store came out lost balance and fell no loss of consciousness hit his head and left knee to the ground also complaining of chest pain for last 2 months with increased anxiety Related Data Home Medications ?Medication ?Instructions ?Recorded ?Confirmed melatonin 5 mg tablet 2 tab PO BEDTIME PRN insomnia 10/18/20 09/15/23 atorvastatin 20 mg tablet 20 mg PO DAILY 11/18/20 09/15/23 blood pressure test kit-large #1 ea 11/18/20 02/09/23 folic acid 1 mg tablet 1 mg PO DAILY 11/18/20 09/15/23 lidocaine 5 % topical patch 1 patch topical DAILY 11/18/20 09/15/23 magnesium oxide 400 mg (241.3 mg 400 mg PO BID 11/18/20 09/15/23 magnesium) tablet metoprolol succinate 50 mg 50 mg PO DAILY 11/18/20 09/15/23 tablet,extended release 24 hr pantoprazole 40 mg tablet,delayed 40 mg PO BID 11/18/20 09/15/23 release thiamine HCl (vitamin B1) 100 mg 100 mg PO DAILY 11/18/20 09/15/23 tablet zolpidem 10 mg tablet 10 mg PO BEDTIME PRN Insomnia 12/02/20 09/15/23 olanzapine 5 mg tablet 1 tab PO BEDTIME 10/10/21 09/15/23 acetaminophen 500 mg tablet 500 mg PO BID PRN Mild Pain (Scale 05/11/22 09/15/23 Score 1-4) albuterol sulfate 90 mcg/actuation 2 puff inhalation Q4H PRN 05/11/22 09/15/23 aerosol inhaler (Ventolin HFA) Respiratory Distress buspirone 10 mg tablet 10 mg PO TID 05/11/22 09/15/23 sacubitril 24 mg-valsartan 26 mg 1 tab PO BID 06/12/22 09/15/23 tablet (Entresto) budesonide-formoterol HFA 160 2 puff inhalation BID 02/09/23 09/15/23 mcg-4.5 mcg/actuation aerosol inhaler (Symbicort) clopidogrel 75 mg tablet 75 mg PO DAILY 05/17/23 09/15/23 acamprosate 333 mg tablet,delayed 666 mg PO BID 09/15/23 09/15/23 release warfarin 2 mg tablet 2 mg PO DAILY 09/15/23 09/15/23 Previous Rx's ?Medication ?Instructions ?Recorded ondansetron 4 mg disintegrating 4 mg PO Q8H PRN nausea and 04/30/23 tablet vomiting #20 tabs furosemide 40 mg tablet 40 mg PO DAILY #30 tabs 05/29/23 Allergies Allergy/AdvReac Type Severity Reaction Status Date / Time lorazepam [From ATIVAN] AdvReac Severe OPPOSITE Verified 01/23/24 02:08 EFFECT PSYCOTIC EFECTS Review of Systems 2 Review of Systems: Yes all other systems are reviewed and are negative [facility] Past Medical History Medical History Sepsis Rhabdomyolysis EDGAR (acute kidney injury) Supratherapeutic INR Fall Acute hyponatremia Intracranial hemorrhage Coronary artery disease Chronic systolic CHF (congestive heart failure) Hypertension Short-segment Harrell's esophagus Pacemaker Skull fracture Alcoholic liver disease Cocaine abuse Alcohol abuse Surgical History Aortic valve replaced S/P CABG (coronary artery bypass graft) H/O aortic valve replacement History of esophagogastroduodenoscopy (EGD) Social History Social History Household Members: None Housing: Apartment Do you presently have visiting nurse or other home services: Yes Alcohol intake: current Alcohol intake frequency: a few times a week Alcohol type: beer Comment: pt refused, to have assistance with ambulation, chair and bed alarm Patient Tobacco Use Status: Current everyday Tobacco user Tobacco use type: Cigarette Cigarette Packs Per Day: 1 Cigarettes Per Day: 20.0 Smoked in Last 30 Days: No Second Hand Smoke Exposure: No Use of substances other than those prescribed or required for medical reasons: No Substance Use Type: Marijuana Advance Directives: Yes Advance Directives on File: Yes Advance Directives Date on File: 10/11/21 Do you have a plan to hurt others: No Plan service: No Current occupational status: unemployed Physical Exam 2 Vital Signs: Vital Signs: Last Vital Signs Temp 97.6 F 01/23/24 06:14 Pulse 77 01/23/24 06:14 Resp 21 H 01/23/24 06:14 BP 112/56 L 01/23/24 06:14 Pulse Ox 94 01/23/24 06:14 O2 Del Method Nasal Cannula 01/23/24 06:14 O2 Flow Rate 2 01/23/24 06:14 BMI result Body Mass Index 28.0 Appearance: Alert. Oriented X3. No acute distress. etoh+ Eyes: PERRLA, No Nystagmus ENT: Pharynx normal. Oral Mucosa moist Neck: Normal inspection. Neck supple. CVS: Normal heart rate and rhythm. Pulses normal. Valve click+ Respiratory: No respiratory distress. Equal air entry bilateral, no wheezing/rales/rhonchi Abdomen: Soft and nontender. Bowel sounds are present, no mass palpable, no CVA tenderness Skin: Skin warm and dry. Normal skin color. Normal skin turgor. Extremities: No lower extremity edema. No calf tenderness left leg superficial abrasion of the knee good range of movement nontender Neuro: Oriented X 3. No motor deficit. No sensory deficit.No cerebellar signs , cranial nerves II-XII intact Medications Administered Generic Name Dose Route Start Last Admin Trade Name Freq PRN Reason Stop Dose Admin Sodium Chloride 1,000 mls @ 125 mls/hr 01/23/24 03:54 01/23/24 04:02 Ns IVCONT 01/23/24 11:53 125 mls/hr .Q8H ONE Administration Pantoprazole Sodium 40 mg 01/23/24 06:30 01/23/24 06:13 Pantoprazole Sodium 40 Mg/10 Ml Vial IVPUSH 40 mg DAILY@0630 CAMMY Administration Discontinued Medications Generic Name Dose Route Start Last Admin Trade Name Freq PRN Reason Stop Dose Admin Magnesium Sulfate 2 gm in 50 mls @ 150 mls/hr 01/23/24 03:54 01/23/24 04:39 Magnesium Sulfate/H2o IV 01/23/24 04:13 Infused ONCE ONE Infusion Thiamine HCl 100 mg/ Sodium 101 mls @ 202 mls/hr 01/23/24 04:26 01/23/24 05:18 Chloride IV 01/23/24 04:55 Infused ONCE STA Infusion Sodium Chloride 250 mls @ 999 mls/hr 01/23/24 04:30 01/23/24 05:18 Ns IV 01/23/24 04:45 Infused .Q16M CAMMY Infusion Medical Decision Making Medical Decision Making [facility] Narrative: Patient alcoholic came after fall CT scan of the head and C-spine negative lab workup showed hyponatremia with sodium of 120 without see any significant change in sensorium patient's urine osmolality was 147 with sodium of less than 20 and serum osmolarity was 293 meeting the criteria for isoosmolar hyponatremia from alcohol use not SIADH started on normal saline at 125 cc/hour with slow rise in sodium about 8-10 mEq in 24 hours repeat sodium was 123 admitted to the hospitalist service Differential Diagnosis Differential Diagnoses: The differential diagnosis associated with the presentation includes SIADH/hypovolemic hyponatremia/isovolumetric hyponatremia Admission/Observation Consideration of admission/observation: Escalation of care including admission/observation considered Consult Healthcare Provider Management of the patient was discussed with: Hospitalist Lab Data [facility] Lab Attestation statement: I reviewed the patient's lab results. 01/23/24 02:52 01/23/24 05:10 Labs: Lab Results 01/23/24 01/23/24 Range/Units 02:52 03:29 WBC 8.3 (4.8-10.8) X10*3/uL RBC 3.37 L (4.60-5.80) X10*6/uL Hgb 9.0 L (14.0-18.0) g/dl Hct 26.8 L (42.0-52.0) % MCV 79.5 L (80.0-98.0) fL MCH 26.7 L (27.0-33.0) pg MCHC 33.6 (31.0-36.0) g/dl RDW 20.1 H (11.0-16.0) % Plt Count 320 (160-400) X10*3/uL MPV 9.0 L (9.4-12.4) fL Immature Gran % (Auto) 0.4 (0.0-0.4) % Neut % (Auto) 77.6 H (45-73) % Lymph % (Auto) 15.0 L (20-40) % Kimble % (Auto) 5.9 (2-11) % Eos % (Auto) 0.5 (0-4) % Baso % (Auto) 0.6 (0-2) % Lymph # (Auto) 1.2 (1.2-4.9) X10*3/uL [place] # (Auto) 0.5 (0.1-1.2) X10*3/uL Eos # (Auto) 0.0 (0.0-0.4) X10*3/uL Baso # (Auto) 0.1 (0.0-0.2) X10*3/uL Abs Immat Gran (auto) 0.03 (0.00-0.03) X10*3/uL Absolute Neuts (auto) 6.4 (2.0-8.3) x10*3/uL Absolute Nucleated RBC 0.000 (0.0-0.012) X10*3/uL Nucleated RBC % (auto) 0.0 (0.0-0.2) /100WBC PT 70.3 H D (10.9-12.4) SEC INR 6.0 H* (0.9-1.1) Sodium 120 L* 121 L (135-145) mmol/L Potassium 3.7 4.6 D (3.3-5.1) mmol/L Chloride 94 L 93 L (96-108) mmol/L Carbon Dioxide 15 L 16 L (22-29) mmol/L Anion Gap 15 17 (12-20) BUN 8 L 8 L (9-16) mg/dL Creatinine 0.96 0.99 (0.5-1.4) mg/dL Estim Creat Clear Calc 94.7 91.9 Estimated GFR > 60 > 60 Random Glucose 92 79 (60-115) mg/dL Calcium 8.4 8.6 (8.4-10.2) mg/dL Magnesium 1.3 L* (1.6-2.6) mg/dL Total Bilirubin 0.3 (0.0-1.0) mg/dL AST 20 (5-37) U/L ALT 62 H (0-40) U/L Alkaline Phosphatase 63 (39-117) U/L Troponin I High Sens 3.3 D (<3.5-35.0) ng/L Total Protein 6.5 (6.5-8.0) g/dL Albumin 3.7 (3.5-5.0) g/dL Ethyl Alcohol 193 mg/dL Independent Interpretation I performed an independent interpretation of an: EKG Interpretation: Pacemaker with rhythm with heart rate of 80 beats per minute no acute ST-T changes no acute ischemia Critical Care Time Critical Care Time Critical Care Time: Yes Total Critical Care Time: 45 Attestation: The patient was critically ill with a high probability of imminent or life threatening deterioration. I spent greater than 50???minutes of discontinuous time evaluating the patient,delivering critical care at the bedside, discussing and evaluating pertinent data with consultants. Critical care time does not include time spent performing separately billable procedures or teaching. Total time spent performing critical care was 45?minutes. Discharge Plan Discharge Clinical Impression: Acute hyponatremia, Alcohol use disorder, severe, dependence Patient Disposition: Admitted As Inpatient
[2024-01-23 02:57] LABS: MANUAL DIFF FLAG NO
[2024-01-23 02:58] LABS: Basophils Absolute Auto 0.1 X10*3/uL (0.0-0.2); Basophils Percent Auto 0.6 % (0-2); Eosinophils Percent Auto 0.5 % (0-4); Hematocrit 26.8 % (42.0-52.0); Imm Gran Abs Auto 0.03 X10*3/uL (0.00-0.03); Imm Gran Pct Auto 0.4 % (0.0-0.4); Lymphocytes Absolute Auto 1.2 X10*3/uL (1.2-4.9); Mean Corpuscular HGB Conc 33.6 g/dl (31.0-36.0); Mean Corpuscular Hemoglobin 26.7 pg (27.0-33.0); Mean Corpuscular Volume 79.5 fL (80.0-98.0); Monocytes Absolute Auto 0.5 X10*3/uL (0.1-1.2); Monocytes Percent Auto 5.9 % (2-11); Neutrophils Absolute Auto 6.4 x10*3/uL (2.0-8.3); Neutrophils Percent Auto 77.6 % (45-73); Platelet Count 320 X10*3/uL (160-400); Red Blood Count 3.37 X10*6/uL (4.60-5.80); Red Cell Distribution Width 20.1 % (11.0-16.0); White Blood Count 8.3 X10*3/uL (4.8-10.8)
[2024-01-23 03:15] LABS: Prothrombin Time 70.3 SEC (10.9-12.4)
[2024-01-23 03:16] LABS: Alanine Aminotransferase 62 U/L (0-40); Albumin Level 3.7 g/dL (3.5-5.0); Alkaline Phosphatase 63 U/L (39-117); Anion Gap 15 (12-20); Aspartate Amino Transferase 20 U/L (5-37); Bilirubin Total 0.3 mg/dL (0.0-1.0); Blood Urea Nitrogen 8 mg/dL (9-16); Calcium 8.4 mg/dL (8.4-10.2); Carbon Dioxide 15 mmol/L (22-29); Chloride 94 mmol/L (96-108); Creatinine Clr Calc Pharmacy 94.7; Estimated Glomerular Filt Rate > 60; Ethanol 193 mg/dL; Glucose Random 92 mg/dL (60-115); Potassium 3.7 mmol/L (3.3-5.1); Sodium 120 mmol/L (135-145); Total Protein 6.5 g/dL (6.5-8.0)
[2024-01-23 03:17] LABS: Troponin-I High Sensitivity 3.3 ng/L (<3.5-35.0)
[2024-01-23 03:50] LABS: Magnesium 1.3 mg/dL (1.6-2.6)
[2024-01-23 03:51] LABS: Anion Gap 17 (12-20); Blood Urea Nitrogen 8 mg/dL (9-16); Calcium 8.6 mg/dL (8.4-10.2); Carbon Dioxide 16 mmol/L (22-29); Chloride 93 mmol/L (96-108); Creatinine Clr Calc Pharmacy 91.9; Estimated Glomerular Filt Rate > 60; Glucose Random 79 mg/dL (60-115); Potassium 4.6 mmol/L (3.3-5.1); Sodium 121 mmol/L (135-145)
[2024-01-23] MEDS: 0.9 % Sodium Chloride 1,000 ML 125 ML IVCONT (04:02)
[2024-01-23] MEDS: Magnesium Sulfate/H2O 2 GM/50 ML PIGGYBACK IV (04:02)
--- NOTE | 2024-01-23 04:30 | P.HPHOSP_ITS ---
History of Present Illness Date of Service: 01/23/24 Attending physician on admission: Carmen Abarca Chief Complaint: Found by PD crawling on the road Omid Caballero is a 63 years old man with past medical history significant for alcohol abuse on acamprosate, HFrEF (45-50 %), aortic valve replacement on warfarin, CAD s/p CABG, s/p AICD, hyperlipidemia and essential hypertension was brought to the emergency department for evaluation after he was found by PD crawling on the road. HPI was obtained from ED notes and staff as the patient is currently intoxicated with alcohol. Apparently he hit his head a left knee to the ground. It has not been observed any event of vomiting, diarrhea, loss of consciousness or seizures. In the ED, he was found to have normal vital signs. Blood workup showed no leukocytosis. Hemoglobin is 9.0 which is at baseline. Platelets are normal. INR is 6.0. Sodium is 121 (it was 120), chloride 93, potassium 4.6, CO2 16 anion gap 17. BUN is 8 and creatinine 0.99. Magnesium is 1.3. LFTs are unremarkable except for elevated ALT, 62. ETOH level is 193. Head and c-spine CT scan were obtained. ECG showed atrial-sensed ventricular-paced rhythm. ED tx: Magnesium 2 g IV Review of Systems 2 Review of Systems: Yes Unobtainable due to mental status PMFSH Medical History Sepsis Rhabdomyolysis EDGAR (acute kidney injury) Supratherapeutic INR Fall Acute hyponatremia Intracranial hemorrhage Coronary artery disease Chronic systolic CHF (congestive heart failure) Hypertension Short-segment Harrell's esophagus Pacemaker Skull fracture Alcoholic liver disease Cocaine abuse Alcohol abuse Surgical History Aortic valve replaced S/P CABG (coronary artery bypass graft) H/O aortic valve replacement History of esophagogastroduodenoscopy (EGD) Social History Household Members: None Housing: Apartment Do you presently have visiting nurse or other home services: Yes Alcohol intake: current Alcohol intake frequency: a few times a week Alcohol type: beer Comment: pt refused, to have assistance with ambulation, chair and bed alarm Patient Tobacco Use Status: Current everyday Tobacco user Tobacco use type: Cigarette Cigarette Packs Per Day: 1 Cigarettes Per Day: 20.0 Smoked in Last 30 Days: No Second Hand Smoke Exposure: No Use of substances other than those prescribed or required for medical reasons: No Substance Use Type: Marijuana Advance Directives: Yes Advance Directives on File: Yes Advance Directives Date on File: 10/11/21 Do you have a plan to hurt others: No Plan service: No Current occupational status: unemployed Meds Allergies Allergy/AdvReac Type Severity Reaction Status Date / Time lorazepam [From ATIVAN] AdvReac Severe OPPOSITE Verified 01/23/24 02:08 EFFECT PSYCOTIC EFECTS Active Medications: Current Medications Folic Acid (Folic Acid 1 Mg Tablet) 1 mg PO DAILY CAMMY Sodium Chloride (Ns) 1,000 mls @ 125 mls/hr IVCONT .Q8H ONE Stop: 01/23/24 11:53 Last Admin: 01/23/24 04:02 Dose: 125 mls/hr Thiamine HCl 100 mg/ Sodium (Chloride) 101 mls @ 202 mls/hr IV ONCE STA Stop: 01/23/24 04:55 Sodium Chloride (Ns) 250 mls @ 999 mls/hr IV .Q16M CAMMY Stop: 01/23/24 04:45 Multivitamins/Vitamin C (Multivitamin Tablet) 1 tab PO DAILY [facility] Sodium Chloride (0.9 % Sodium Chloride Flush 3 Ml Syringe) 3 ml IVFLUSH QSHIFT [facility] Home Medications ?Medication ?Instructions ?Recorded ?Confirmed ?Last Taken ?Type melatonin 5 mg tablet 2 tab PO BEDTIME PRN insomnia 10/18/20 09/15/23 Unknown History atorvastatin 20 mg tablet 20 mg PO DAILY 11/18/20 09/15/23 04/02/23 09:00 History blood pressure test kit-large #1 ea 11/18/20 02/09/23 Unknown History folic acid 1 mg tablet 1 mg PO DAILY 11/18/20 09/15/23 04/02/23 09:00 History lidocaine 5 % topical patch 1 patch topical DAILY 11/18/20 09/15/23 04/02/23 09:00 History magnesium oxide 400 mg (241.3 mg 400 mg PO BID 11/18/20 09/15/23 04/02/23 09:00 History magnesium) tablet metoprolol succinate 50 mg 50 mg PO DAILY 11/18/20 09/15/23 04/02/23 09:00 History tablet,extended release 24 hr pantoprazole 40 mg tablet,delayed 40 mg PO BID 11/18/20 09/15/23 04/02/23 09:00 History release thiamine HCl (vitamin B1) 100 mg 100 mg PO DAILY 11/18/20 09/15/23 04/02/23 09:00 History tablet zolpidem 10 mg tablet 10 mg PO BEDTIME PRN Insomnia 12/02/20 09/15/23 10/10/21 History olanzapine 5 mg tablet 1 tab PO BEDTIME 10/10/21 09/15/23 Unknown History acetaminophen 500 mg tablet 500 mg PO BID PRN Mild Pain (Scale 05/11/22 09/15/23 Unknown History Score 1-4) albuterol sulfate 90 mcg/actuation 2 puff inhalation Q4H PRN 05/11/22 09/15/23 Unknown History aerosol inhaler (Ventolin HFA) Respiratory Distress buspirone 10 mg tablet 10 mg PO TID 05/11/22 09/15/23 04/02/23 09:00 History sacubitril 24 mg-valsartan 26 mg 1 tab PO BID 06/12/22 09/15/23 04/02/23 09:00 History tablet (Entresto) budesonide-formoterol HFA 160 2 puff inhalation BID 02/09/23 09/15/23 04/02/23 09:00 History mcg-4.5 mcg/actuation aerosol inhaler (Symbicort) clopidogrel 75 mg tablet 75 mg PO DAILY 05/17/23 09/15/23 Unknown History acamprosate 333 mg tablet,delayed 666 mg PO BID 09/15/23 09/15/23 Unknown History release warfarin 2 mg tablet 2 mg PO DAILY 09/15/23 09/15/23 Unknown History Physical Exam 2 Vital Signs and Narrative: Vital Signs: Last Vital Signs Temp 97.6 F 01/23/24 02:06 Pulse 83 01/23/24 02:06 Resp 18 01/23/24 02:06 BP 121/70 01/23/24 02:06 Pulse Ox 99 01/23/24 02:06 O2 Del Method Room Air 01/23/24 02:06 BMI result Body Mass Index 28.0 Constitutional - Intoxicated. Open eyes upon calling his name and falls asleep quickly. HEENT - Scalp: no open wounds, abrasions or bumps. PERRL. Normal sclerae. Dry oral mucosa. Heart - S1S2, RRR, (+) murmur. Lungs - Normal lung expansion, Normal respiratory effort, No respiratory distress, CTA bilaterally Abdomen - NT / ND; +BS; No rebound or guarding Extremities - no calf tenderness bilaterally, no swelling. Left knee abrasion w/o effusions. Musculoskeletal - Normal inspection, normal ROM Skin - Warm/Dry Neurological - Lethargic, dysarthric speech. No facial droop. Moving all extremities equally. Psychological - No agitation. Results Labs 01/23/24 02:52 01/23/24 03:29 Labs: Laboratory Results - last 24 hr 01/23/24 01/23/24 02:52 03:29 MCV 79.5 L MCH 26.7 L MCHC 33.6 RDW 20.1 H Plt Count 320 MPV 9.0 L Immature Gran % (Auto) 0.4 Neut % (Auto) 77.6 H Lymph % (Auto) 15.0 L [place] % (Auto) 5.9 Eos % (Auto) 0.5 Baso % (Auto) 0.6 Lymph # (Auto) 1.2 [place] # (Auto) 0.5 Eos # (Auto) 0.0 Baso # (Auto) 0.1 Abs Immat Gran (auto) 0.03 Absolute Neuts (auto) 6.4 Absolute Nucleated RBC 0.000 Nucleated RBC % (auto) 0.0 PT 70.3 H D INR 6.0 H* Anion Gap 15 17 Estim Creat Clear Calc 94.7 91.9 Estimated GFR > 60 > 60 Random Glucose 92 79 Calcium 8.4 8.6 Magnesium 1.3 L* Total Bilirubin 0.3 AST 20 ALT 62 H Alkaline Phosphatase 63 Troponin I High Sens 3.3 D Total Protein 6.5 Albumin 3.7 Ethyl Alcohol 193 Assessment and Plan (1) Acute hyponatremia: Status: Acute (2) Toxic encephalopathy: Status: Acute (3) Supratherapeutic INR: Status: Acute (4) Anemia: Status: Acute (5) ETOH abuse: Status: Acute (6) Alcoholic liver disease: Status: Acute (7) Normal anion gap metabolic acidosis: Status: Acute (8) Head trauma: Status: Acute Plan Omid Caballero is a 63 y/o man admitted with: * Acute toxic encephalopathy due to alcohol intoxication; possibly mixing sedative home medications with alcohol (olanzapine, Ambien, buspirone, melatonin). Admit to hospitalist service. NPO. Aspiration and fall precautions. Check urine drug screen. It has been recommended to STOP prescribing Ambien to Mr. Caballero as this is contraindicated in patients with alcoholic liver disease and ongoing alcohol abuse. During a previous hospitalization (May 2023) patient was observed taking 4 unknown tablets which were believed to be Ambien. * Acute on chronic hyponatremia likely multifactorial: Alcohol (beer potomania), diuretic use. Urine osmolality and urine sodium are still pending. Gentle IV fluids. Continue to monitor sodium level closely. * Head trauma. Head and c-spine CT scan are negative for acute bleeding, fractures or dislocations. * Supratherapeutic INR. No active bleeding. Hold warfarin and resume when INR is therapeutic. INR daily. * Normal anion gap metabolic acidosis. Gentle hydration. Check venous blood gas. Continue to monitor CO2. * Hypomagnesemia. Secondary to alcohol abuse. Replete as needed. Telemetry. Continue to monitor magnesium level. * HFrEF (EF 45-50%) s/p AICD. No signs of acute decompensation. Continue Entresto. * Chronic anemia. Hemoglobin at baseline. Continue to monitor Hgb. * Alcohol abuse. Patient has been advised to abstain from alcohol use in the past. He takes acamprosate. [facility] protocol. Thiamine IV, folic acid, multivitamin and magnesium. Will start therapy with phenobarbital as needed for alcohol withdrawal symptoms. Will avoid fluids with D5 due to low sodium. Additional medicine consult. * Aortic valve replacement on warfarin. Warfarin on hold due to supratherapeutic INR. Resume warfarin when INR is therapeutic. * CAD s/p CAD. Continue Plavix, metoprolol and statin. * Hyperlipidemia. Continue statin. * Hypertension. Continue metoprolol. * Mood disorder. Hold olanzapine and buspirone due to toxic encephalopathy. DVT prophylaxis: INR is supratherapeutic. GI prophylaxis: Protonix IV. Code status: Full Patient will need hospitalization for at least 2 midnights for acute encephalopathy and hyponatremia treatment secondary to alcoholic intoxication with continuous neurological exam, IV thiamine, gentle IV fluids and close monitoring of sodium and INR level. Quality Stroke Does the patient have a stroke diagnosis?: No VTE Prior VTE?: No VTE Risk Level:: Medical - moderate - high VTE Device Contraindication: Treatment Not Indicated VTE Drug Contraindication: N/A - Med Ordered
[2024-01-23] MEDS: Thiamine HCL 100 MG in 0.9 % Sodium Chloride 100 ML 202 MG IV (04:38)
[2024-01-23] MEDS: 0.9 % Sodium Chloride 250 ML 999 ML IV (04:40)
[2024-01-23 05:23] LABS: Venous Blood Gas Refer to POC result
[2024-01-23 05:29] LABS: Appearance Urine Clear; Color Urine Yellow; Glucose Urine UA Negative (Negative); Leukocyte Esterase Urine Negative (Negative); Nitrite Urine Negative (Negative); PH 5.5 (5.0-9.0); Specific Gravity - Urine <= 1.005 (1.005-1.025); Urine Blood Negative (Negative); Urine Ketones Negative (Negative); Urine Protein Negative (Neg-Trace)
[2024-01-23 05:40] LABS: Osmolality, Serum 293 mosm/kg (281-305)
[2024-01-23 05:43] LABS: Osmolality Urine 147 mosm/kg (373-1093)
[2024-01-23 05:46] LABS: Alanine Aminotransferase 61 U/L (0-40); Albumin Level 3.7 g/dL (3.5-5.0); Alkaline Phosphatase 68 U/L (39-117); Amphetamine Screen Urine Not Detected (Not Detect); Anion Gap 15 (12-20); Aspartate Amino Transferase 24 U/L (5-37); Barbiturates, Urine Not Detected (Not Detect); Benzodiazepines Screen Urine Not Detected (Not Detect); Bilirubin Total 0.3 mg/dL (0.0-1.0); Blood Urea Nitrogen 8 mg/dL (9-16); Buprenorphine Scr Not Detected (Not Detect); Calcium 7.9 mg/dL (8.4-10.2); Cannabinoid Screen Urine Not Detected (Not Detect); Carbon Dioxide 18 mmol/L (22-29); Chloride 94 mmol/L (96-108); Cocaine Screen Urine Not Detected (Not Detect); Creatinine Clr Calc Pharmacy 96.8; Estimated Glomerular Filt Rate > 60; Fentanyl, urine Not Detected (Not Detect); Glucose Random 87 mg/dL (60-115); Methadone Screen, Urine Not Detected (Not Detect); Opiate Screen Urine Not Detected (Not Detect); Oxycodone Screen Urine Not Detected (Not Detect); Phencyclidine Screen Urine Not Detected (Not Detect); Potassium 4.1 mmol/L (3.3-5.1); Sodium 123 mmol/L (135-145); Total Protein 6.6 g/dL (6.5-8.0)
[2024-01-23 05:48] LABS: Chloride Urine Random < 20.0 mmol/L; Potassium Urine Random 6.6 mmol/L; Sodium Urine Random < 20.0 mmol/L
[2024-01-23] MEDS: Pantoprazole Sodium 40 MG/10 ML VIAL IVPUSH (06:13)
[2024-01-23 06:14] VITALS: BP 112/56; PULSE 77; RESP 21; TEMP 36.4; O2SAT 94
--- NOTE | 2024-01-23 06:51 | PC.NURSE ---
report given to Cora RIDLEY
--- NOTE | 2024-01-23 08:57 | MHC.EDTECH ---
pt transferred with one assist to bedside commode, tolerated well.
--- NOTE | 2024-01-23 09:20 | PHA.MEDREC ---
Addendum entered by Edith Pichardo [facility] 01/23/24 09:34: med rec reviewed by [facility] Addendum entered by Tony Peres 01/23/24 09:29: Correction: Warfarin was stated to be 5 mg daily. Original Note: Pharmacy Consult ? Medication Reconciliation Pharmacy has completed the medication reconciliation. Patient is a poor historian of medications. Patient states they have a nurse that visits them daily, but does not have the contact information of the nurse. Utilized claim history to confirm meds. Patient was able to state that they take warfarin 2 mg daily, acamprosate, and lovenox, as well as stated that all medbox meds were being taken.
[2024-01-23] MEDS: Folic Acid 1 MG TABLET PO (09:38)
[2024-01-23] MEDS: Multivitamin TABLET 1 TAB PO (09:38)
[2024-01-23] MEDS: 0.9 % Sodium Chloride Flush 3 ML SYRINGE IVFLUSH (09:39)
--- NOTE | 2024-01-23 10:43 | PC.NURSE ---
This RN went in with healthcare interpreter as patient had no idea where he was or what happened last night, this Rn provided information to patient and provided emotional support.
[2024-01-23 12:21] LABS: Anion Gap 13 (12-20); Blood Urea Nitrogen 6 mg/dL (9-16); Calcium 8.8 mg/dL (8.4-10.2); Carbon Dioxide 19 mmol/L (22-29); Chloride 103 mmol/L (96-108); Creatinine Clr Calc Pharmacy 116.6; Estimated Glomerular Filt Rate > 60; Glucose Random 86 mg/dL (60-115); Potassium 4.5 mmol/L (3.3-5.1); Sodium 130 mmol/L (135-145)
[2024-01-23 13:02] VITALS: BP 136/65; PULSE 72; RESP 19; TEMP 37.2; O2SAT 95
--- NOTE | 2024-01-23 13:10 | PM.EVENT ---
Event Note Date of Service: 01/23/24 Event Note: The patient was seen and evaluatd this morning and afternoon Overcorrecting with Na from 120 to 130 in 12 hours or so. Started on D5W 100cc\hr Follow BMP Q6H Diazepam for mild anxiety one time Start CIWA Time Spent With Patient Time: Total time managing care of this patient today ____ minutes.
[2024-01-23] MEDS: Morphine Sulfate 2 MG/ML CARTRIDGE IVPUSH ×2 (14:00→17:07)
[2024-01-23] MEDS: diazePAM 2 MG TABLET PO (14:00)
[2024-01-23] MEDS: busPIRone HCl 10 MG TABLET PO ×2 (14:01→21:37)
[2024-01-23] MEDS: Lidocaine 4 % Patch ADH..PATCH 1 PATCH TRANSDERMA (14:03)
[2024-01-23] MEDS: Dextrose 5 % 1,000 ML 100 ML IVCONT (14:05)
[2024-01-23 15:42] VITALS: BP 102/55; PULSE 85; RESP 20; TEMP 37.5; O2SAT 94
[2024-01-23] MEDS: Pantoprazole Sodium 20 MG TABLET.DR 40 MG PO (17:06)
[2024-01-23 19:38] LABS: Anion Gap 14 (12-20); Blood Urea Nitrogen 11 mg/dL (9-16); Calcium 8.6 mg/dL (8.4-10.2); Carbon Dioxide 17 mmol/L (22-29); Chloride 105 mmol/L (96-108); Creatinine Clr Calc Pharmacy 82.7; Estimated Glomerular Filt Rate > 60; Glucose Random 134 mg/dL (60-115); Lipase 14 U/L (8-78); Potassium 4.8 mmol/L (3.3-5.1); Sodium 131 mmol/L (135-145)
[2024-01-23 20:00] VITALS: BP 100/57; PULSE 91; RESP 20; TEMP 36.7; O2SAT 94
[2024-01-23] MEDS: hydrOXYzine HCL 50 MG TABLET 100 MG PO (20:00)
[2024-01-23] MEDS: Acamprosate Calcium 333 MG TABLET.DR 666 MG PO (20:01)
[2024-01-23] MEDS: OLANZapine 5 MG TABLET PO (20:01)
[2024-01-23] MEDS: Magnesium Oxide 400 MG TABLET PO (20:01)
[2024-01-23] MEDS: Prochlorperazine Edisylate 10 MG/2 ML VIAL 5 MG IVPUSH (20:43)
[2024-01-23] MEDS: Acetaminophen 325 MG TABLET 650 MG PO (20:43)
--- NOTE | 2024-01-23 21:14 | PM.EVENT ---
Event Note Date of Service: 01/23/24 Event Note: Na+ 131 (9229) - Na+ increased 1 point in 8 hours. Will continue D5 IV infusion (but will decrease rate due to underlying systolic CHF) and continue to monitor Na+ level. Time Spent With Patient Time: Total time managing care of this patient today ____ minutes.
[2024-01-23] MEDS: Zolpidem Tartrate 5 MG TABLET 10 MG PO (21:43)
[2024-01-24] VITALS: BP 107/55; PULSE 85; RESP 22; TEMP 36.2; O2SAT 91
[2024-01-24 00:52] LABS: Anion Gap 12 (12-20); Blood Urea Nitrogen 15 mg/dL (9-16); Calcium 8.9 mg/dL (8.4-10.2); Carbon Dioxide 24 mmol/L (22-29); Chloride 104 mmol/L (96-108); Creatinine Clr Calc Pharmacy 98.9; Estimated Glomerular Filt Rate > 60; Glucose Random 98 mg/dL (60-115); Potassium 4.7 mmol/L (3.3-5.1); Sodium 135 mmol/L (135-145)
[2024-01-24] MEDS: oxyCODONE HCl Immed Release 5 MG TABLET PO ×3 (01:52→17:07)
[2024-01-24 03:47] VITALS: BP 118/58; PULSE 96; RESP 21; TEMP 36.5; O2SAT 93
[2024-01-24] MEDS: Dextrose 5 % 1,000 ML 50 ML IVCONT (04:52)
[2024-01-24] MEDS: Acetaminophen 325 MG TABLET 650 MG PO ×2 (04:56→15:13)
[2024-01-24] MEDS: Pantoprazole Sodium 20 MG TABLET.DR 40 MG PO ×2 (04:57→17:07)
[2024-01-24 07:07] LABS: INTERNATIONAL NORM RATIO 3.2 (0.9-1.1); Prothrombin Time 37.2 SEC (10.9-12.4)
[2024-01-24 07:12] LABS: Hematocrit 27.1 % (42.0-52.0); Hemoglobin 8.9 g/dl (14.0-18.0); Mean Corpuscular HGB Conc 32.8 g/dl (31.0-36.0); Mean Corpuscular Hemoglobin 26.6 pg (27.0-33.0); Mean Corpuscular Volume 81.1 fL (80.0-98.0); Platelet Count 382 X10*3/uL (160-400); Red Blood Count 3.34 X10*6/uL (4.60-5.80); White Blood Count 6.3 X10*3/uL (4.8-10.8)
[2024-01-24 07:19] LABS: Anion Gap 10 (12-20); Blood Urea Nitrogen 12 mg/dL (9-16); Calcium 9.5 mg/dL (8.4-10.2); Carbon Dioxide 24 mmol/L (22-29); Chloride 106 mmol/L (96-108); Creatinine Clr Calc Pharmacy 105.8; Estimated Glomerular Filt Rate > 60; Glucose Random 103 mg/dL (60-115); Magnesium 1.8 mg/dL (1.6-2.6); Potassium 4.3 mmol/L (3.3-5.1); Sodium 136 mmol/L (135-145)
[2024-01-24 07:31] VITALS: BP 132/63; PULSE 93; RESP 18; TEMP 37.1; O2SAT 95
[2024-01-24] MEDS: Lidocaine 4 % Patch ADH..PATCH 1 PATCH TRANSDERMA (08:29)
--- NOTE | 2024-01-24 08:29 | MHC.CM.PN ---
Addendum entered by Katelynn Soolrzano 01/24/24 11:41: Patient is still active with [facility]. Original Note: Patient lives alone in an apartment and has had [facility]; CM awaits response from [facility] to confirm if Patient is still active with them. Home with [facility] VS Recovery Team intervention r/t ETOH is the tentative plan. CM has initiated and will follow for dc planning. PCP is Dr. Nathaile Hsu and Patient may require assist with transport to home.
[2024-01-24] MEDS: Metoprolol Succinate ER 50 MG TAB.ER.24H PO (08:30)
[2024-01-24] MEDS: Multivitamin TABLET 1 TAB PO (08:30)
[2024-01-24] MEDS: Folic Acid 1 MG TABLET PO (08:30)
[2024-01-24] MEDS: Acamprosate Calcium 333 MG TABLET.DR 666 MG PO ×2 (08:30→20:42)
[2024-01-24] MEDS: Thiamine HCL 100 MG TABLET PO (08:30)
[2024-01-24] MEDS: Furosemide 40 MG TABLET PO (08:31)
[2024-01-24] MEDS: busPIRone HCl 10 MG TABLET PO ×3 (08:31→20:42)
[2024-01-24] MEDS: Magnesium Oxide 400 MG TABLET PO ×2 (08:31→20:42)
[2024-01-24] MEDS: 0.9 % Sodium Chloride Flush 3 ML SYRINGE IVFLUSH ×2 (08:31→15:16)
[2024-01-24] MEDS: Morphine Sulfate 2 MG/ML CARTRIDGE IVPUSH (09:43)
[2024-01-24] MEDS: PHENobarbitaL sodium 130 MG/ML IM ONCE 250 MG IM (10:25)
[2024-01-24] MEDS: PHENobarbitaL 30 MG TABLET PO (10:25)
--- NOTE | 2024-01-24 11:07 | P.PNIM_ITS ---
Subjective Subjective Date of Service: 01/24/24 Interval History: seen and evaluated this morning more alert and interactive but anxious having hands tremors complaining of abd pain no other events Review of Systems Review of Systems: Yes all other systems are reviewed and are negative Physical Exam 2 Vital Signs: Vital Signs: Last Vital Signs Temp 98.7 F 01/24/24 07:31 Pulse 93 01/24/24 07:31 Resp 18 01/24/24 07:31 BP 132/63 01/24/24 07:31 Pulse Ox 95 01/24/24 07:31 O2 Del Method Room Air 01/24/24 07:31 O2 Flow Rate 2 01/23/24 06:14 BMI result Body Mass Index 28.0 Const: Other: Constitutional : Awake, interactive, mildly anxious Neck : Normal inspection, Supple Cardiovascular : RRR, no JVP, no lower extremity edema Respiratory : good bilateral air entry, no crackles, wheezes or rhonchi Gastrointestinal: soft, lax, Normal bowel sounds, Non tender Skin : Warm, Dry Neurological : Alert & oriented x3, No focal deficit , mild tremors Objective Data Active Medications Acamprosate (Acamprosate Calcium 333 Mg Tablet.) 666 mg PO BID [facility] Last Admin: 01/24/24 08:30 Dose: 666 mg Documented By: SELWYN Acetaminophen (Acetaminophen 325 Mg Tablet) 650 mg PO Q6H PRN PRN Reason: Pain, Severe (Pain Scale 7-10) Last Admin: 01/24/24 04:56 Dose: 650 mg Documented By: GAMA Albuterol Sulfate (Albuterol Sulfate 90 Mcg 8 Gm Inhaler) 2 puff INHALE Q4H PRN PRN Reason: Respiratory Distress Buspirone HCl (Buspirone Hcl 10 Mg Tablet) 10 mg PO TID [facility] Last Admin: 01/24/24 08:31 Dose: 10 mg Documented By: SELWYN Fluticasone/Vilanterol (Fluticasone/Vilanterol 200/25 Blst.W.Dev) 1 puff INHALE RDAILY [facility] Last Admin: 01/24/24 07:36 Dose: Not Given Documented By: BOUCHRA Non-Admin Reason: Patient Refused Folic Acid (Folic Acid 1 Mg Tablet) 1 mg PO DAILY [facility] Last Admin: 01/24/24 08:30 Dose: 1 mg Documented By: SELWYN Folic Acid (Folic Acid 1 Mg Tablet) 1 mg PO DAILY [facility] Last Admin: 01/24/24 08:31 Dose: Not Given Documented By: SELWYN Non-Admin Reason: Previously Administered Furosemide (Furosemide 40 Mg Tablet) 40 mg PO DAILY [facility]; Protocol Last Admin: 01/24/24 08:31 Dose: 40 mg Documented By: SELWYN Hydroxyzine HCl (Hydroxyzine Hcl 50 Mg Tablet) 100 mg PO BEDTIME PRN PRN Reason: insomnia Last Admin: 01/23/24 20:00 Dose: 100 mg Documented By: PATI Dextrose (D5w) 1,000 mls @ 80 mls/hr IVCONT .[id number] [facility] Last Infusion: 01/24/24 08:25 Dose: 80 mls/hr Documented By: SELWYN Lidocaine (Lidocaine 4 % Patch Adh..Patch) 1 patch TRANSDERMA DAILY [facility] Last Admin: 01/24/24 08:29 Dose: 1 patch Documented By: SELWYN Magnesium Oxide (Magnesium Oxide 400 Mg Tablet) 400 mg PO BID [facility] Last Admin: 01/24/24 08:31 Dose: 400 mg Documented By: SELWYN Metoprolol Succinate (Metoprolol Succinate Er 50 Mg Tab.Er.24h) 50 mg PO DAILY [facility]; Protocol Last Admin: 01/24/24 08:30 Dose: 50 mg Documented By: SELWYN Multivitamins/Vitamin C (Multivitamin Tablet) 1 tab PO DAILY [facility] Last Admin: 01/24/24 08:30 Dose: 1 tab Documented By: SELWYN Olanzapine (Olanzapine 5 Mg Tablet) 5 mg PO BEDTIME [facility] Last Admin: 01/23/24 20:01 Dose: 5 mg Documented By: PATI Oxycodone HCl (Oxycodone Hcl Immed Release 5 Mg Tablet) 5 mg PO Q6H PRN PRN Reason: Pain, Severe (Pain Scale 7-10) Last Admin: 01/24/24 10:26 Dose: 5 mg Documented By: SELWYN Pantoprazole Sodium (Pantoprazole Sodium 20 Mg Tablet.Dr) 40 mg PO BID@0630,1630 [facility] Last Admin: 01/24/24 04:57 Dose: 40 mg Documented By: GAMA Pharmacy Consult (Consult Rx Etoh Phenob Im/Po) 1 each MISCELLANE ONCE PRN; Protocol PRN Reason: Consult order Phenobarbital (Phenobarbital 30 Mg Tablet) 60 mg PO BID [facility] Stop: 01/26/24 09:01 Phenobarbital (Phenobarbital 30 Mg Tablet) 30 mg PO BID [facility] Stop: 01/28/24 09:01 Phenobarbital (Phenobarbital 30 Mg Tablet) 30 mg PO Q24H [facility] Stop: 01/25/24 09:46 Last Admin: 01/24/24 10:25 Dose: 30 mg Documented By: SELWYN Phenobarbital Sodium (Phenobarbital Sodium 130 Mg/Ml Vial Im Q3hx2) 180 mg IM Q3H [facility] Stop: 01/24/24 16:01 Prochlorperazine Edisylate (Prochlorperazine Edisylate 10 Mg/2 Ml Vial) 5 mg IVPUSH Q6H PRN PRN Reason: Nausea and Vomiting Last Admin: 01/23/24 20:43 Dose: 5 mg Documented By: PATI Sodium Chloride (0.9 % Sodium Chloride Flush 3 Ml Syringe) 3 ml IVFLUSH QSHIFT [facility] Last Admin: 01/24/24 08:31 Dose: 3 ml Documented By: SELWYN Thiamine HCl (Thiamine Hcl 100 Mg Tablet) 100 mg PO DAILY [facility] Last Admin: 01/24/24 08:30 Dose: 100 mg Documented By: SELWYN Zolpidem Tartrate (Zolpidem Tartrate 5 Mg Tablet) 10 mg PO BEDTIME PRN PRN Reason: Insomnia Last Admin: 01/23/24 21:43 Dose: 10 mg Documented By: PATI Labs 01/24/24 06:18 01/24/24 06:18 Labs: Laboratory Results - last 24 hr 01/23/24 01/23/24 01/24/24 12:04 17:49 00:30 MCV MCH MCHC RDW Plt Count MPV Absolute Nucleated RBC Nucleated RBC % (auto) PT INR Anion Gap 13 14 12 Estim Creat Clear Calc 116.6 82.7 98.9 Estimated GFR > 60 > 60 > 60 Random Glucose 86 134 H 98 Calcium 8.8 D 8.6 8.9 Magnesium Lipase 14 01/24/24 06:18 MCV 81.1 MCH 26.6 L MCHC 32.8 RDW 20.0 H Plt Count 382 MPV 10.0 Absolute Nucleated RBC 0.000 Nucleated RBC % (auto) 0.0 PT 37.2 H D INR 3.2 H D Anion Gap 10 L Estim Creat Clear Calc 105.8 Estimated GFR > 60 Random Glucose 103 Calcium 9.5 D Magnesium 1.8 Lipase Assessment and Plan (1) Normal anion gap metabolic acidosis: Status: Acute (2) Toxic encephalopathy: Status: Acute (3) Acute hyponatremia: Status: Acute (4) Supratherapeutic INR: Status: Acute (5) Alcoholic gastritis: Status: Acute Plan Omid Caballero is a 63 y/o man admitted with: Acute toxic encephalopathy due to alcohol intoxication and polypharmacy (olanzapine, Ambien, buspirone, melatonin). Improved back to baseline Aspiration and fall precautions Neg drug screen It has been recommended to STOP prescribing Ambien to Mr. Caballero as this is contraindicated in patients with alcoholic liver disease and ongoing alcohol abuse. During a previous hospitalization (May 2023) patient was observed taking 4 unknown tablets which were believed to be Ambien. He Keeps asking for it. I will keep 1 dose at night to prevent him from taking pills by his own for now Acute on chronic hyponatremia likely multifactorial: Alcohol (beer potomania), diuretic use. Corrected back to baseline , monitor BMP Head trauma. Head and c-spine CT scan are negative for acute bleeding, fractures or dislocations. Supratherapeutic INR. No active bleeding. INR 3.2 today Hold warfarin and resume when INR is therapeutic. INR daily. Normal anion gap metabolic acidosis resolved Acute Hypomagnesemia. Secondary to alcohol abuse. Repleted and corrected Hx Alcohol abuse with acute withdrawal advised to abstain from alcohol use now and in the past. Continue Acamprosate. CIWA protocol. Thiamine IV, folic acid, multivitamin and magnesium start therapy with phenobarbital Addiction medicine - HFrEF (EF 45-50%) s/p AICD. No signs of acute decompensation. Continue Entresto. - Chronic anemia. Hemoglobin at baseline. Continue to monitor Hgb. - Aortic valve replacement on warfarin. Warfarin on hold due to supratherapeutic INR. Resume warfarin when INR is therapeutic. - CAD s/p CAD. Continue Plavix, metoprolol and statin. - Hyperlipidemia. Continue statin. - Hypertension. Continue metoprolol. - Mood disorder. Hold olanzapine and buspirone due to toxic encephalopathy. DVT prophylaxis: INR is supratherapeutic. Patient will need hospitalization overnight for acute alcohol withdrawal secondary to alcoholism with PHenobarb, IV thiamine, gentle IV fluids and close monitoring of INR level and mentation Quality Stroke Does the patient have a stroke diagnosis?: No VTE Prior VTE?: No VTE Risk Level:: Medical - moderate - high VTE Device Contraindication: Treatment Not Indicated VTE Drug Contraindication: N/A - Med Ordered
[2024-01-24 12:00] VITALS: BP 143/69; PULSE 89; RESP 20; TEMP 37.3; O2SAT 96
[2024-01-24 12:26] LABS: Anion Gap 10 (12-20); Blood Urea Nitrogen 10 mg/dL (9-16); Calcium 9.5 mg/dL (8.4-10.2); Carbon Dioxide 27 mmol/L (22-29); Chloride 104 mmol/L (96-108); Creatinine Clr Calc Pharmacy 105.8; Estimated Glomerular Filt Rate > 60; Glucose Random 99 mg/dL (60-115); Potassium 4.5 mmol/L (3.3-5.1); Sodium 136 mmol/L (135-145)
[2024-01-24] MEDS: PHENobarbitaL sodium 130 MG/ML VIAL IM Q3Hx2 180 MG IM ×2 (13:19→17:09)
[2024-01-24 16:00] VITALS: BP 125/55; PULSE 82; RESP 20; TEMP 37.3; O2SAT 97
[2024-01-24 18:38] LABS: Anion Gap 14 (12-20); Blood Urea Nitrogen 13 mg/dL (9-16); Calcium 9.2 mg/dL (8.4-10.2); Carbon Dioxide 23 mmol/L (22-29); Chloride 104 mmol/L (96-108); Creatinine Clr Calc Pharmacy 89.2; Estimated Glomerular Filt Rate > 60; Glucose Random 121 mg/dL (60-115); Potassium 4.6 mmol/L (3.3-5.1); Sodium 136 mmol/L (135-145)
[2024-01-24 20:00] VITALS: BP 121/57; PULSE 71; RESP 20; TEMP 36.6; O2SAT 96
[2024-01-24] MEDS: PHENobarbitaL 30 MG TABLET 60 MG PO (20:41)
[2024-01-24] MEDS: OLANZapine 5 MG TABLET PO (20:42)
[2024-01-25] VITALS: BP 130/59; PULSE 78; RESP 20; TEMP 36.9; O2SAT 92
[2024-01-25 03:41] VITALS: BP 107/58; PULSE 84; RESP 20; TEMP 36.7; O2SAT 96
[2024-01-25] MEDS: Acetaminophen 325 MG TABLET 650 MG PO (06:29)
[2024-01-25] MEDS: Pantoprazole Sodium 20 MG TABLET.DR 40 MG PO (06:29)
[2024-01-25 06:35] LABS: INTERNATIONAL NORM RATIO 1.6 (0.9-1.1); Prothrombin Time 18.7 SEC (10.9-12.4)
[2024-01-25] MEDS: Fluticasone/Vilanterol 200/25 BLST.W.DEV 1 PUFF INHALE (07:47)
[2024-01-25 07:50] VITALS: PULSE 92; RESP 17; O2SAT 94
[2024-01-25 07:52] VITALS: BP 121/68; PULSE 81; RESP 20; TEMP 37; O2SAT 93
[2024-01-25] MEDS: PHENobarbitaL 30 MG TABLET 60 MG PO (08:22)
[2024-01-25] MEDS: Acamprosate Calcium 333 MG TABLET.DR 666 MG PO (08:22)
[2024-01-25] MEDS: Thiamine HCL 100 MG TABLET PO (08:22)
[2024-01-25] MEDS: Magnesium Oxide 400 MG TABLET PO (08:22)
[2024-01-25] MEDS: Multivitamin TABLET 1 TAB PO (08:22)
[2024-01-25] MEDS: busPIRone HCl 10 MG TABLET PO (08:22)
[2024-01-25] MEDS: Metoprolol Succinate ER 50 MG TAB.ER.24H PO (08:22)
[2024-01-25] MEDS: Folic Acid 1 MG TABLET PO (08:22)
[2024-01-25] MEDS: Furosemide 40 MG TABLET PO (08:23)
[2024-01-25] MEDS: 0.9 % Sodium Chloride Flush 3 ML SYRINGE IVFLUSH ×2 (08:23)
[2024-01-25] MEDS: Lidocaine 4 % Patch ADH..PATCH 1 PATCH TRANSDERMA (08:25)
[2024-01-25] MEDS: oxyCODONE HCl Immed Release 5 MG TABLET PO (10:26)
--- NOTE | 2024-01-25 11:16 | PM.DS ---
DS: Providers Provider Date of Service: 01/25/24 Date of admission: 01/23/24 04:24 Date of discharge: 01/25/24 Primary care physician: Nathalie Hsu MD Consults: 01/23/24 13:49 Addiction Medicine Routine Consulting Provider: Yrn Harris Reason for consultation: ETOH abuse DS: Diagnosis Discharge Diagnosis (1) Normal anion gap metabolic acidosis: Status: Acute (2) Toxic encephalopathy: Status: Acute (3) Acute hyponatremia: Status: Acute (4) Supratherapeutic INR: Status: Acute (5) Alcoholic gastritis: Status: Acute DS: Summary Hospital Course Hospital Course: from initial hpi: 63 years old man with past medical history significant for alcohol abuse on acamprosate, HFrEF (45-50 %), aortic valve replacement on warfarin, CAD s/p CABG, s/p AICD, hyperlipidemia and essential hypertension was brought to the emergency department for evaluation after he was found by PD crawling on the road. HPI was obtained from ED notes and staff as the patient is currently intoxicated with alcohol. Apparently he hit his head a left knee to the ground. It has not been observed any event of vomiting, diarrhea, loss of consciousness or seizures. In the ED, he was found to have normal vital signs. Blood workup showed no leukocytosis. Hemoglobin is 9.0 which is at baseline. Platelets are normal. INR is 6.0. Sodium is 121 (it was 120), chloride 93, potassium 4.6, CO2 16 anion gap 17. BUN is 8 and creatinine 0.99. Magnesium is 1.3. LFTs are unremarkable except for elevated ALT, 62. ETOH level is 193. Head and c-spine CT scan were obtained. ECG showed atrial-sensed ventricular-paced rhythm. ED tx: Magnesium 2 g IV hospital course: Patient was admitted for acute toxic metabolic encephalopathy due to alcohol dependence with intoxication and polypharmacy. Patient's mental status slowly returned to baseline, he is recommended to avoid excess medications especially zolpidem as well as discontinuing alcohol. For acute on chronic hyponatremia likely multifactorial due to alcohol and diuretic use sodium was slowly returned to normal, did require D5W to slow correction. For supratherapeutic INR Coumadin was held INR now 1.6 and Coumadin to be restarted. Acute hypomagnesemia was replaced. Alcohol dependence with withdrawal was treated with phenobarbital, patient will continue on acamprosate. For chronic systolic CHF was continued on Entresto, 4 history of mechanical aortic valve will restart Coumadin. For coronary artery disease was continued on Plavix, statin. For hypertension continued on metoprolol. For hyperlipidemia continue statin. Patient is feeling better will be discharged home. Time Attestation Discharge Coordination Time (in mins): 34 Quality: Safe Use of Opioids Does Pt have an Active Cancer Diagnosis on the Problem List?: No Quality: Stroke Does the patient have a stroke diagnosis?: No Physical Exam Vital Signs: Vital Signs: Last Vital Signs Temp 98.6 F 01/25/24 07:52 Pulse 81 01/25/24 07:52 Resp 20 01/25/24 07:52 BP 121/68 01/25/24 07:52 Pulse Ox 93 01/25/24 07:52 O2 Del Method Room Air 01/25/24 07:52 O2 Flow Rate 2 01/23/24 06:14 BMI result Body Mass Index 28.0 Const: Other: Constitutional : Awake, interactive, nad Neck : Normal inspection, Supple Cardiovascular : RRR, no JVP, no lower extremity edema Respiratory : good bilateral air entry, no crackles, wheezes or rhonchi Gastrointestinal: soft, lax, Normal bowel sounds, Non tender Skin : Warm, Dry Neurological : Alert & oriented x3, No focal deficit , DS: Data Data Completed and Pending Completed studies during hospitalization [Text1]: Procedures Detoxification Services for Substance Abuse Treatment (05/17/23) Labs on day of discharge: Laboratory Results - last 24 hr 01/24/24 01/24/24 01/25/24 11:53 18:12 05:53 Hold Purple Top SEE NOTE PT 18.7 H D INR 1.6 H Sodium 136 136 Potassium 4.5 4.6 Chloride 104 104 Carbon Dioxide 27 23 Anion Gap 10 L 14 BUN 10 13 Creatinine 0.86 1.02 Estim Creat Clear Calc 105.8 89.2 Estimated GFR > 60 > 60 Random Glucose 99 121 H Calcium 9.5 9.2 Troponin I High Sens Cancelled Discharge Plan Discharge Anticipated Discharge Date/Time: 01/25/24 11:13 Patient Disposition: Home, Self-Care Discharge Diagnosis: hyponatremia, fall, etoh Referrals: Nathalie Hsu MD [Primary Care Provider] - 1 Week Discharge Medications: Continued melatonin 5 mg tablet 2 tab PO BEDTIME PRN (Reason: insomnia) olanzapine 5 mg tablet 1 tab PO BEDTIME acetaminophen 500 mg Tablet 500 mg PO BID PRN (Reason: Mild Pain (Scale Score 1-4)) buspirone 10 mg Tablet 10 mg PO TID albuterol sulfate [Ventolin HFA] 90 mcg/actuation Hfa Aerosol Inhaler 2 puff INHALATION Q4H PRN (Reason: Respiratory Distress) acamprosate 333 mg tablet,delayed release (DR/EC) 666 mg PO BID hydroxyzine pamoate 50 mg capsule 100 mg PO BEDTIME PRN (Reason: insomnia) warfarin 5 mg tablet 5 mg PO DAILY budesonide-formoterol [Symbicort] 160-4.5 mcg/actuation HFA aerosol inhaler 2 puff inhalation BID clopidogrel 75 mg tablet 75 mg PO DAILY furosemide 40 mg Tablet 40 mg PO DAILY Qty: 30 0RF Protocol: Hold for SBP< HOLD for SBP < : 90 zolpidem 10 mg tablet 10 mg PO BEDTIME PRN (Reason: Insomnia) pantoprazole 40 mg tablet,delayed release (DR/EC) 40 mg PO BID magnesium oxide 400 mg (241.3 mg magnesium) tablet 400 mg PO BID thiamine HCl (vitamin B1) 100 mg tablet 100 mg PO DAILY metoprolol succinate 50 mg tablet extended release 24 hr 50 mg PO DAILY atorvastatin 20 mg tablet 20 mg PO DAILY (DME) blood pressure test kit-large Kit See Rx Instructions .ROUTE DIRECTED Qty: 1 Rx Instructions: As directed folic acid 1 mg tablet 1 mg PO DAILY lidocaine 5 % adhesive patch,medicated 1 patch topical DAILY Protocol: Apply to: Apply to: AFFECTED AREA Entresto 24-26 mg tablet 1 tab PO BID Discontinued enoxaparin 80 mg/0.8 mL syringe 80 mg subcut Q12H Rx Instructions: END: 01/25/24 Discharge Orders: Discharge Order (Routine); Ordered 01/25/24 Ordered By: Gerardo Marin Diet: Advance to usual diet Activity on Discharge: As tolerated Stand Alone Forms: Patient Portal Discharge page Print Language: Indonesian Care Plan Goals: Recovery Health Concerns: Alcohol dependence Plan of Treatment: Avoid alcohol Assessment: See above
--- NOTE | 2024-01-25 11:25 | MHC.CM.PN ---
Patient has been medically cleared for dc to home today, with services. Patient is active with [facility], who has been notified of today's dc.
--- NOTE | 2024-01-25 12:24 | MHC.CM.PN ---
Patient will be taking the [facility] home today at 12:30 PM.
--- NOTE | 2024-01-25 13:08 | MHC.RECOVRN ---
Attempted to meet with pt to complete AUDIT C brief intervention, pt dc prior to meeting.
== END 2024-01-25 12:38 | disposition home health service (06) | DRG 812 ==
LOC: HO.ED 04:03 → HO.EDOVER 04:39 → HO.IMC 12:09
PROVIDERS: Student in an Organized Health Care Education/Training Program; Admitting Provider Internal Medicine; Emergency Provider Internal Medicine; PCP Family Medicine; Visit Provider Internal Medicine
DX: T42.6X1A Poisoning by other antiepileptic and sedative-hypnotic drugs, accidental (unintentional), initial encounter (principal); G92.8 Other toxic encephalopathy; E87.1 Hypo-osmolality and hyponatremia; E78.5 Hyperlipidemia, unspecified; F17.210 Nicotine dependence, cigarettes, uncomplicated; I25.10 Atherosclerotic heart disease of native coronary artery without angina pectoris; I11.0 Hypertensive heart disease with heart failure; I50.22 Chronic systolic (congestive) heart failure; F10.229 Alcohol dependence with intoxication, unspecified; Y90.6 Blood alcohol level of 120-199 mg/100 ml; E83.42 Hypomagnesemia; R79.1 Abnormal coagulation profile; Z95.1 Presence of aortocoronary bypass graft; Z95.810 Presence of automatic (implantable) cardiac defibrillator; Z95.2 Presence of prosthetic heart valve; Z79.01 Long term (current) use of anticoagulants; Z71.6 Tobacco abuse counseling; Z79.02 Long term (current) use of antithrombotics/antiplatelets; Z79.899 Other long term (current) drug therapy
CPT/HCPCS: 36415; 70450; 72125; 80048; 80053; 80307; 81003; 82436; 83690; 83735; 83930; 83935; 84133; 84300; 84484; 85025; 85027; 85610; 93005; 94640; 99285; J0737; J2270; J2470; J2560; J3411; J3475

== ENCOUNTER → 2024-01-23 02:31 | Outpatient (BNV) | payer MEDICAID, SELFPAY | PROVIDERS: Admitting Provider Internal Medicine; Emergency Provider Internal Medicine; PCP Family Medicine; Visit Provider Internal Medicine | DX: R94.31 Abnormal electrocardiogram [ECG] [EKG] (principal) | CPT/HCPCS: 93010 ==

== ENCOUNTER → 2024-01-23 04:24 | Outpatient (BNV) | payer MEDICAID, SELFPAY | PROVIDERS: Admitting Provider Internal Medicine; Emergency Provider Internal Medicine; PCP Family Medicine; Visit Provider Internal Medicine | DX: E87.1 Hypo-osmolality and hyponatremia (principal); G92.8 Other toxic encephalopathy; R79.1 Abnormal coagulation profile; F10.188 Alcohol abuse with other alcohol-induced disorder; D64.9 Anemia, unspecified; K70.9 Alcoholic liver disease, unspecified; E87.20 Acidosis, unspecified; S09.90XA Unspecified injury of head, initial encounter | CPT/HCPCS: 99223; 99232; 99239; 99499 ==

== ENCOUNTER 2024-03-10 10:54 | Outpatient (REF) | payer MEDICAID, SELFPAY ==
[2024-03-10 13:22] LABS: INTERNATIONAL NORM RATIO 2.5 (0.9-1.1); Prothrombin Time 29.7 SEC (10.9-12.4)
[2024-03-10 13:26] LABS: Hematocrit 30.8 % (42.0-52.0); Hemoglobin 9.9 g/dl (14.0-18.0); Mean Corpuscular HGB Conc 32.1 g/dl (31.0-36.0); Mean Corpuscular Hemoglobin 31.2 pg (27.0-33.0); Mean Corpuscular Volume 97.2 fL (80.0-98.0); Mean Platelet Volume 10.5 fL (9.4-12.4); Platelet Count 232 X10*3/uL (160-400); Red Blood Count 3.17 X10*6/uL (4.60-5.80); White Blood Count 10.5 X10*3/uL (4.8-10.8)
[2024-03-10 13:32] LABS: Alanine Aminotransferase 84 U/L (0-40); Albumin Level 2.9 g/dL (3.5-5.0); Alkaline Phosphatase 239 U/L (39-117); Anion Gap 10 (12-20); Aspartate Amino Transferase 97 U/L (5-37); Bilirubin Total 7.1 mg/dL (0.0-1.0); Blood Urea Nitrogen 9 mg/dL (9-16); Calcium 8.4 mg/dL (8.4-10.2); Carbon Dioxide 22 mmol/L (22-29); Chloride 110 mmol/L (96-108); Estimated Glomerular Filt Rate > 60; Glucose Random 92 mg/dL (60-115); Potassium 4.1 mmol/L (3.3-5.1); Sodium 138 mmol/L (135-145); Total Protein 7.5 g/dL (6.5-8.0)
--- OUTSIDE RECORDS SUMMARY | 2024-03-15 07:46 | XMS_ITS | Continuity of Care Document ---
Author Organization [facility] ter Address [address] [place] [id number]- Care Team Providers Care Advisory Intern Name Role Phone [place] , Nathalie James Primary Care Physician Encounter [facility] [place] Date(s): 02/12/24 - 03/01/[address] [id number]- Encounter Diagnosis Hypocalcemia(Final) - 02/12/24 Elevated INR(Final) - 02/12/24 Hypotension(Final) - 02/12/24 Jaundice(Final) - 02/12/24 Acute liver failure(Final) - 02/13/24 Discharge Disposition: A-D/C Home Attending Physician: Ivy ABDI, Remigio Admitting Physician: Maegan Ann MD Referring Physician: Not on Staff, Referring MD Encounter Type: Disch IP Allergies, Adverse Reactions, Alerts No Known Allergies Immunizations Given and Recorded Vaccine Date Status Refusal Reason SARS-CoV-2 mRNA ([id number]) vax 11/13/21 Given SARS-CoV-2 (COVID-19) mRNA-1273 vaccine 08/22/20 R ecorded SARS-CoV-2 (COVID-19) mRNA-1273 vaccine 07/25/20 R ecorded influenza virus vaccine, inactivated 06/23/18 Mateusz rded influenza virus vaccine, inactivated 12/24/10 Mateusz rded diphtheria/tetanus/pertussis, acel(DTaP) 10/24/14 Recorded tetanus/diphtheria/pertussis, acel(Tdap) 11/18/10 Recorded pneumococcal 23-valent vaccine 12/26/08 Recorded tetanus-diphtheria toxoids (Td) 01/15/98 Recorded Measles/Mumps/Rubella Virus Vaccine 01/15/98 Recor ded Medications Aldactone 25 mg oral tablet 25 mg, By Mouth, Daily, # 30 tablet, Refills 0, Tot. Refills 0, Maintenance, 02/29/24 1:49:00 PM EST, Route to Pharmacy Electronically, [facility] [place] [facility], Partial fill upon patient request if the prescription is for a schedule II opioid drug., 168, cm, 02/29/24 11:25:00 EST, Height, 82.7, kg, 02/12/24 8:21:00 EST, Dry Weight Start Date: 02/29/24 Status: Ordered Quantity: 30.0 Unit: tablet Repeat number: 1 busPIRone 10 mg oral tablet 10 mg, 1, tablet, By Mouth, 3 times a day Start Date: 10/19/21 Status: Ordered Repeat number: 1 docusate sodium 100 mg oral capsule 1 capsule = 100 mg, By Mouth, 2 times a day, PRN as needed for constipation, # 20 capsule, 0 Refills, Maintenance, 12/13/23 2:23:00 PM EDT, Capsule, [facility] [facility], Partial fill upon patient request if the prescription is for a schedule II opioid drug., 170, cm, 11/15/23 19:33:00 EDT, Height, 79, kg, 12/09/23 18:53:00 EDT, Dry Weight Start Date: 12/13/23 Status: Ordered Quantity: 20.0 Unit: capsule Repeat number: 1 ferrous sulfate (as elemental iron) 45 mg oral tablet, extended release 1 tablet = 45 mg, By Mouth, Daily, # 30 tablet, 0 Refills, Maintenance, 02/29/24 1:49:00 PM EST, ERTablet, [facility] [facility], Partial fill upon patient request if the prescription is for a schedule II opioid drug., 168, cm, 02/29/24 11:25:00 EST, Height, 82.7, kg, 02/12/24 8:21:00 EST, Dry Weight Start Date: 02/29/24 Status: Ordered Quantity: 30.0 Unit: tablet Repeat number: 1 folic acid 1 mg oral tablet 1 mg, 1, tablet, By Mouth, Daily, Maintenance, 08/08/23 9:55:00 AM EDT, Partial fill upon patient request if the prescription is for a schedule II opioid drug. Start Date: 08/08/23 Status: Ordered Repeat number: 1 furosemide 20 mg oral tablet 20 mg, By Mouth, Daily in AM, # 30 tablet, Refills 0, Tot. Refills 0, Maintenance, 02/29/24 1:49:00PM EST, Route to Pharmacy Electronically, [facility], [facility], Partial fill upon patient request if the prescription is for a schedule II opioid drug., 168, cm, 02/29/24 11:25:00 EST, Height, 82.7, kg, 02/12/24 8:21:00 EST, Dry Weight Start Date: 02/29/24 Status: Ordered Quantity: 30.0 Unit: tablet Repeat number: 1 gabapentin 100 mg oral capsule 100 mg, Capsule, Nasogastric Tube, 03/01/24 6:00:00 AM EST Start Date: 03/01/24 Stop Date: 03/01/24 Status: Completed Repeat number: 1 gabapentin 100 mg oral capsule 100 mg, By Mouth, 3 times a day, # 90 tablet, Refills 0, Tot. Refills 0, Maintenance, 02/29/24 1:49:00 PM EST, Route to Pharmacy Electronically, [facility], [facility], Partial fill upon patient request if the prescription is for a schedule II opioid drug., 168, cm, 02/29/24 11:25:00 EST, Height,82.7, kg, 02/12/24 8:21:00 EST, Dry Weight Start Date: 02/29/24 Status: Ordered Quantity: 90.0 Unit: tablet Repeat number: 1 lactulose 10 gm/15 ml oral syrup 30 mL = 20 Gm, By Mouth, 3 times a day, for 30 days, # 2,700 mL, 0 Refills, Acute 03/30/24 1:49:00 PM EST, 02/29/24 1:49:00 PM EST, Syrup, [facility] [facility], Partial fill upon patient request if the prescription is for a schedule II opioid drug., 30 mL By Mouth 3 times a day,x30 days, 168, cm, 02/29/24 11:25:00 EST, Height, 82.7, kg, 02/12/24 8:21:00 EST, Dry Weight Start Date: 02/29/24 Stop Date: 03/30/24 Status: Ordered Quantity: 2700.0 Unit: mL Repeat number: 1 lidocaine 5% topical film 1 patch, Topically, Daily, For lower back pain remove patches after 12 hours, # 30 patch, 0 Refills, Acute 03/07/24 1:15:00 PM EST, 02/06/24 1:12:00 PM EST, Patch, [facility]/pharmacy #[id number], Partial fill uponpatient request if the prescription is for a schedule II opioid drug., 1 patch Topically Daily,Instr:For lower back pain ; remove patches after 12 hours, 168, cm, 02/06/24 7:25:00 EST, Height, 82.7, kg, 02/03/24 14:55:00 EDT, Dry Weight Start Date: 02/06/24 Stop Date: 03/07/24 Status: Ordered Quantity: 30.0 Unit: patch Repeat number: 1 melatonin 5 mg oral tablet 2 tablet = 10 mg, By Mouth, Daily at bedtime, PRN for insomnia, # 60 tablet, 0 Refills, Maintenance, 02/28/15 9:57:28 AM EST, Tablet Start Date: 02/28/15 Status: Ordered Quantity: 60.0 Unit: tablet Repeat number: 1 Metoprolol Succinate ER 25 mg oral tablet, extended release 25 mg, 1, tablet, By Mouth, Daily, # 30 tablet, Refills 0, Tot. Refills 0, Maintenance, 02/29/24 1:49:00 PM EST, Route to Pharmacy Electronically, [facility], Partial fill upon patient request if the prescription is for a schedule II opioid drug., 168, cm, 02/29/24 11:25:00 EST, Height, 82.7, kg, 02/12/24 8:21:00 EST, Dry Weight Start Date: 02/29/24 Status: Ordered Quantity: 30.0 Unit: tablet Repeat number: 1 pantoprazole 40 mg oral delayed release tablet 1 tablet = 40 mg, By Mouth, 2 times a day, Maintenance, 08/08/23 9:57:00 AM EDT, CR Tablet Start Date: 08/08/23 Status: Ordered Repeat number: 1 ProAir HFA 90 mcg/inh inhalation aerosol with adapter INHALE 2 PUFFS EVERY 4 TO 6 HOURS NEEDED Start Date: 09/01/18 Status: Ordered Repeat number: 1 Symbicort 160mcg/4.5mcg Inhaler 2, puffs, Inhalation, 2 times a day, # 10.2 Gm, Refills 0, Maintenance, 08/08/23 12:33:00 AM EDT, Aerosol Start Date: 08/08/23 Status: Ordered Quantity: 10.2 Unit: g Repeat number: 1 thiamine 100 mg oral tablet 100 mg, By Mouth, Daily, for 30 days, # 30 tablet, Refills 0, Tot. Refills 0, Acute 03/30/24 1:49:00 PM EST, 02/29/24 1:49:00 PM EST, Route to Pharmacy Electronically, [facility] [facility], Partial fill upon patient request if the prescription is for a schedule II opioid drug., 168, cm, 02/29/24 11:25:00 EST, Height, 82.7, kg, 02/12/24 8:21:00 EST, Dry Weight Start Date: 02/29/24 Stop Date: 03/30/24 Status: Ordered Quantity: 30.0 Unit: tablet Repeat number: 1 warfarin 5 mg oral tablet TAKE 1 TO 2 TABLETS BY MOUTH EVERY DAY DIRECTED BY [facility] Start Date: 02/29/24 Status: Ordered Repeat number: 1 Problem List Condition Confirmation Course Effective Dates Status H ealth Status Informant Alcohol use disorder Confirmed Active Asthma Confirmed Active Chest pain Confirmed Active CAD in [place] artery Confirmed Active Alcohol use Confirmed Active GERD (gastroesophageal reflux disease) Confirmed Active INGRIS (generalized anxiety disorder) Confirmed Active HFrEF (heart failure with reduced ejection fraction) Confirmed Active Aortic valve prosthesis present Confirmed Active H/O mechanical aortic valve replacement Confirmed Active Hyperlipidemia Confirmed Active Hypertension Confirmed Active Hyponatremia Confirmed Active Elevated INR Confirmed Active Loss of consciousness Confirmed Active Severe obesity Confirmed Active Results Radiology Reports (Most Recent Ten) * Exam Date Time Procedure Performing Provider Status 02/25/24 12:10 AM Chest Portable Gale Montgomery; South (Verified) Notes: (Chest Portable) Reason For Exam: Pleuritic Pain RESULT: Chest Portable Chest Portable AP semiupright at 11:28 PM REASON: Pleuritic Pain; Clinical Question(s): Pneumonia / Pneumonia COMPARISON: 02/24/2024 FINDINGS: LINES AND TUBES: Dual-lead right subclavian infected pacemaker, leads appear intact. Enteric tube tip projects in the stomach. LUNGS AND PLEURA: Diffuse interstitial opacity, right worse than left, slightly increased. No pleural effusion. No pneumothorax. HEART, MEDIASTINUM AND TIA: Unchanged. BONES AND SOFT TISSUES: No acute abnormality. Status-post median sternotomy. IMPRESSION: Slightly worsened diffuse interstitial opacity, could be due to infection or edema. WSN: [id number] Ordering Physician: Keron Chaney Dictated By: Cal Velázquez MD Dictated Date/Time: 02/25/24 8:04 am Reviewed By: Cal Velázquez MD Signed By: Cal Velázquez MD Signed Date/Time: 02/25/24 8:04 am Transcribed By: CELENA Transcribed Date/Time: 02/25/24 8:03 am * Exam Date Time Procedure Performing Provider Status 02/23/24 12:53 AM Chest Portable Luis Enrique Bull; Nikki chappell (Verified) Notes: (Chest Portable) Reason For Exam: Fever/Increased White Count RESULT: Chest Portable Chest Portable performed 12:10 AM Reason: Fever Increased White Count; Clinical Question(s): Pneumonia COMPARISON: Multiple prior chest x-rays, the most recent of which is dated 02/21/2024. FINDINGS: LINES AND TUBES: An enteric tube extends to the stomach, with the side-port likely just past the GE junction. There is a pacer with power pack overlying the right upper chest. LUNGS AND PLEURA: Unchanged interstitial opacities with hazy opacity in the right midlung. No pleural effusion. No pneumothorax. HEART, MEDIASTINUM AND TIA: Status post median sternotomy and valve replacement. The cardiac silhouette is within normal limitsof size. Mediastinal contours are unchanged. BONES AND SOFT TISSUES: No acute abnormality. IMPRESSION: 1. Enteric tube extending to the stomach. 2. No change in interstitial opacities with more focal hazy opacity in the right midlung which may reflect asymmetric edema, atelectasis or pneumonia. WSN: [id number] Ordering Physician: Cole Howell Dictated By: Juanis Self MD Dictated Date/Time: 02/23/24 7:47 am Reviewed By: Juanis Self MD Signed By: Juanis Self MD Signed Date/Time: 02/23/24 7:47 am Transcribed By: CSB Transcribed Date/Time: 02/23/24 7:44 am * Exam Date Time Procedure Performing Provider Status 02/21/24 6:40 AM Chest Portable Gale Montgomery; Auth ( Verified) Notes: (Chest Portable) Reason For Exam: Other: RESULT: Chest Portable AP semiupright portable chest dated February 21, 2024 0630 hours. Comparison films are from February 20, 2024. HISTORY: Aspiration. FINDINGS: Today's study is significantly limited due to overlying wires. The cardiac silhouette is increased in size and unchanged. A pacemaker is present on the right. Wires extend to overlie the heart. The patient is status post median sternotomy and valvular replacement. A nasogastric tube extends off the film into the left upper quadrant. Airspace infiltrate in the right upper lobe, left upper and mid lung, and left lower lobe is once again demonstrated. Small bilateral pleural effusions are noted. Degenerative changes are noted in the spine. IMPRESSION: No significant interval change. Examination 357[address]. Thank you for allowing me to participate in the care of this patient. WSN: [id number] Ordering Physician: Rudy Mendez Dictated By: Deniz Zelaya MD Dictated Date/Time: 02/21/24 8:27 am Reviewed By: Deniz Zelaya MD Signed By: Deniz Zelaya MD Signed Date/Time: 02/21/24 8:27 am Transcribed By: CELENA Transcribed Date/Time: 02/21/24 8:26 am * Exam Date Time Procedure Performing Provider Status 02/21/24 8:17 AM Chest Portable Tanner Martinez; Auth (Verified) Notes: (Chest Portable) Reason For Exam: hypoxia;Shortness of Breath RESULT: Chest Portable Examination: Portable chest performed on 02/21/2024. History: Shortness of breath. Findings: A frontal view of the chest is compared to a prior study from the same date. Enteric tube and central line are in expected location. Pacer and valve replacement are noted. Sternal wires are intact. The cardiac silhouette is within normal limits for size. Pulmonary edema is unchanged. There are trace pleural effusions. The osseous structures are unremarkable. IMPRESSION: Stable pulmonary edema and pleural effusions. WSN: [id number] Ordering Physician: Jasmeet Singh Dictated By: Meaghan Rhodes MD Dictated Date/Time: 02/21/24 8:24 am Reviewed By: Meaghan Rhodes MD Signed By: Meaghan Rhodes MD Signed Date/Time: 02/21/24 8:24 am Transcribed By: CELENA Transcribed Date/Time: 02/21/24 8:18 am * Exam Date Time Procedure Performing Provider Status 02/21/24 7:[address] Head/Brain W/O Contrast Olga , Rico an; Auth (Verified) Notes: (CT Head/Brain W/O Contrast) Reason For Exam: Stuporous;Other: RESULT: CT Head/Brain W/O Contrast CT Head/Brain W/O Contrast INDICATION: Reason: Other:; Stuporous; Clinical Question(s): Other:; Order Comment: TECHNIQUE: Noncontrast head CT using axial technique and reconstructed in axial and coronal planes.Iterative reconstruction techniques are used to optimize dose and image quality. COMPARISON: CT head from 02/03/2024 FINDINGS: Bellperson view findings, lines and tubes: Partially imaged nasoenteric tube. Oral airway on magazine grinder loader. BRAIN AND EXTRA-AXIAL SPACES: No parenchymal hemorrhage, midline shift, or mass effect. [place]-white matter differentiation is wellpreserved. No acute infarct. Negative insular ribbon sign. Atherosclerotic vascular calcification of the carotid arteries but negative hyperdense vessel sign. Moderate prominence of the ventricles and sulci consistent with parenchymal volume loss. Chronic encephalomalacia within the right anterior temporal lobe. Milder chronic encephalomalacia within the left anterior temporal lobe. Punctate calcification in the left occipital lobe. Mild low-density white matter changes. No subarachnoid hemorrhage. No subdural or epidural collection. CALVARIUM, SKULL BASE, AND SOFT TISSUES: No fractures or suspicious bony lesions. Left parietal craniotomy changes. The paranasal sinuses and mastoid air cells are clear. Visualized orbits and globes are intact. The extracranial soft tissues are unremarkable. IMPRESSION: No acute intracranial pathology. WSN: [id number] Ordering Physician: Sacha Malone Dictated By: Cal Chin MD Dictated Date/Time: 02/21/24 7:54 am Reviewed By: Cal Chin MD Signed By: Cal Chin MD Signed Date/Time: 02/21/24 7:54 am Transcribed By: CELENA Transcribed Date/Time: 02/21/24 7:50 am * Exam Date Time Procedure Performing Provider Status 02/20/24 5:14 AM Chest Portable Mami Hartley; Auth (Verified) Notes: (Chest Portable) Reason For Exam: Aspiration suspected around 9p on 02/18;Other: RESULT: Chest Portable Chest Portable Reason: Other:; Aspiration suspected around 9p on 02 18; Clinical Question(s): Aspiration COMPARISON: Priors, most recent dated 02/19/2024 FINDINGS: LINES AND TUBES: Dual-lead left subclavian pacer/AICD wires are intact. Right IJ catheter terminates in the region of the distal SVC. Enteric tube courses below the diaphragm and off of the image. LUNGS AND PLEURA: Mild bilateral central vascular congestion. There is new mild airspace opacity in the inferior aspect of the right upper lobe and possibly in the left upper lobe. No pleural effusion. No pneumothorax. HEART, MEDIASTINUM AND TIA: Stable mildly enlarged cardiac silhouette. Mitral valve ring in place Normal mediastinal and hilar contour. BONES AND SOFT TISSUES: No acute abnormality. Median sternotomy wires are intact. IMPRESSION: Mild airspace opacities in the inferior aspect of the right upper lobe and possibly in the left upper lobe, may be secondary to atelectasis versus aspiration. WSN: [id number] Ordering Physician: Rudy Mendez Dictated By: Kelly Epps MD Dictated Date/Time: 02/20/24 8:58 am Reviewed By: Kelly Epps MD Signed By: Kelly Epps MD Signed Date/Time: 02/20/24 8:58 am Transcribed By: CELENA Transcribed Date/Time: 02/20/24 8:56 am * Exam Date Time Procedure Performing Provider Status 02/19/24 9:55 PM Chest Portable Roney Navarro; [place] (V erified) Notes: (Chest Portable) Reason For Exam: potential aspiration, AMS, rhonchi;Other: RESULT: Chest Portable Chest Portable Reason: Other:; potential aspiration, AMS, rhonchi; Clinical Question(s): Aspiration COMPARISON: 02/15/2024. FINDINGS: LINES AND TUBES: Dual-lead right subclavian pacer/AICD wires are intact. Enteric tube terminates outside the field of view, below the level of the GE junction. Right internal jugular vein catheter terminates in the mid SVC. LUNGS AND PLEURA: Increased interstitial markings throughout both lung colon. No pleural effusion. No pneumothorax. HEART, MEDIASTINUM AND TIA: Heart is normal in size. Mitral valve ring in place. Aorta is mildly calcified. BONES AND SOFT TISSUES: No acute abnormality. IMPRESSION: Persistent pulmonary edema. WSN: [id number] Ordering Physician: Rudy Mendez Dictated By: Laura Peterson MD Dictated Date/Time: 02/19/24 9:45 pm Reviewed By: Laura Peterson MD Signed By: Laura Peterson MD Signed Date/Time: 02/19/24 9:45 pm Transcribed By: CELENA Transcribed Date/Time: 02/19/24 9:44 pm * Exam Date Time Procedure Performing Provider Status 02/15/24 4:09 PM Chest Portable Florencio , Annette; Auth (Verified) Notes: (Chest Portable) Reason For Exam: Tube Placement RESULT: Chest Portable Chest Portable REASON: Tube Placement; Clinical Question(s): Tube Placement; Special Instructions: NGT placement /Tube Placement COMPARISON: Earlier today FINDINGS: LINES AND TUBES: Dual-lead implanted right subclavian pacemaker. Enteric tube tip projects in the stomach. Right internal jugular central venous catheter tip projects in the SVC. LUNGS AND PLEURA: Diffuse interstitial prominence, similar to prior. No pleural effusion. No pneumothorax. HEART, MEDIASTINUM AND TIA: Unchanged. BONES AND SOFT TISSUES: Status post median sternotomy. IMPRESSION: Enteric tube tip projects in the stomach. WSN: [id number] Ordering Physician: Rudy Mendez Dictated By: Cal Velázquez MD Dictated Date/Time: 02/15/24 4:52 pm Reviewed By: Cal Velázquez MD Signed By: Cal Velázquez MD Signed Date/Time: 02/15/24 4:52 pm Transcribed By: CELENA Transcribed Date/Time: 02/15/24 4:52 pm * Exam Date Time Procedure Performing Provider Status 02/15/24 9:01 AM Chest Portable Swapnil Tom (Verified) Notes: (Chest Portable) Reason For Exam: CHF RESULT: Chest Portable Examination: Portable chest performed on 02/15/2024. History: CHF. Findings: A frontal view of the chest is compared to a prior study dated 02/13/2024. Central line and pacer are redemonstrated. Sternotomy wires are intact. Valve replacement is noted.The cardiac silhouette is within normal limits for size. Pulmonary edema has increased since the prior study. There are no pleural effusions. The osseous structures are unremarkable. Impression: Increase in pulmonary edema. WSN: [id number] Ordering Physician: Jeffrey Hernández Dictated By: Meaghan Rhodes MD Dictated Date/Time: 02/15/24 9:32 am Reviewed By: Meaghan Rhodes MD Signed By: Meaghan Rhodes MD Signed Date/Time: 02/15/24 9:32 am Transcribed By: CELENA Transcribed Date/Time: 02/15/24 9:31 am * Exam Date Time Procedure Performing Provider Status 02/13/24 5:41 PM Abdomen AP Peri De Leon; South (V erified) Notes: (Abdomen AP) Reason For Exam: Feculant brown vomit;Nausea/Vomiting RESULT: XR Abdomen AP XR Abdomen AP 1 view INDICATION/CLINICAL QUESTION: Reason: Nausea Vomiting; Feculant brown vomit; Clinical Question(s): Obstruction COMPARISON: Bellperson radiograph from CT 02/03/2024 FINDINGS: No dilated small or large bowel IMPRESSION: No evidence of obstruction or ileus WSN: [id number] Ordering Physician: Rudy Mendez Dictated By: Andres Coombs MD Dictated Date/Time: 02/13/24 8:54 pm Reviewed By: Andres Coombs MD Signed By: Andres Coombs MD Signed Date/Time: 02/13/24 8:54 pm Transcribed By: CELENA Transcribed Date/Time: 02/13/24 8:53 pm Vital Signs Most recent to oldest [Reference Range]: 1 2 3 Height 168 cm (03/01/24 7:51 AM) 168 cm (02/29/24 8:25 PM) 168 cm (02/29/24 3:52 PM) Weight 80.9 kg (02/18/24 1:52 AM) 84.6 kg (02/17/24 5:00 AM) 85.1 kg (02/16/24 6:37 AM) Oxygen Saturation [94-100 %] 100 % (03/01/24 7:51 AM) 98 % (03/01/24 4:14 AM) 99 % (02/29/24 8:25 PM) Pulse Rate [55-90 bpm] 66 bpm (03/01/24 7:51 AM) 81 bpm (03/01/24 4:14 AM) 90 bpm (02/29/24 8:25 PM) Body Mass Index [18.5-24.99 kg/m2] 33.09 kg/m2 *>HHI* (02/12/24 8:02 AM) Blood Pressure [90-138/55-84 mm Hg] 122/67mm Hg (03/01/24 7:51 AM) 124/62mm Hg (03/01/24 4:14 AM) 130/65mm Hg (02/29/24 8:25 PM) Respiratory Rate [16-30 br/min] 20 br/min (03/01/24 7:51 AM) 15 br/min *L* (03/01/24 5:25 AM) 18 br/min (03/01/24 4:14 AM) Temperature [96.8-100.4 DegF] 97.7 DegF (03/01/24 7:51 AM) 97.7 DegF (03/01/24 4:14 AM) 98.2 DegF (02/29/24 8:25 PM) Liters per Minute 2 L/min (02/26/24 8:00 AM) 2 L/min (02/26/24 6:00 AM) 2 L/min (02/26/24 4:00 AM) Mode of Delivery (Oxygen) Room air (03/01/24 7:51 AM) Room air (03/01/24 4:14 AM) Room air (02/29/24 8:25 PM) Blood pressure sites Arm, left (03/01/24 7:51 AM) Arm, left (03/01/24 4:14 AM) Arm, left (02/29/24 8:25 PM) Temperature Route Oral (03/01/24 7:51 AM) Oral (03/01/24 4:14 AM) Oral (02/29/24 8:25 PM) Dry Weight 82.7 kg (02/12/24 8:02 AM) Weight Obtained Via Bed scale (02/18/24 1:52 AM) Bed scale (02/17/24 5:00 AM) Bed scale (02/16/24 6:37 AM) Social History Social History Type Response Smoking Status Current every day jeanette joseph entered on: 05/07/14 Sex Sex Representation Male (finding) Admission evaluation note * Lennox Blanco MD: PERFORM Event Display: Admission Note Authored Date: [id number] Patient: ??JOHNATHAN CHRISTIANSON ? Age:??64 Years?Sex:??Male?:??1960?? History of Present Illness Mr. Christianson is a [place] speaking 63-year-old male patient with a past medical history of coronary artery disease, chronic systolic heart failure (echo with EF of 20 to 25% October 2021), mechanical aortic valve replacement (on Coumadin), hypertension, hyperlipidemia, GERD, alcohol use, tobacco abuse, and anxiety??reports that he had a fall yesterday, but did not have any??head trauma, did not lose consciousness??and it was while he was in the shower.?? He reports for the past several days??having generalized malaise, nausea,??fever, chills.?? He called??EMS today because he continued to feel bad,when they arrived??he had a blood sugar of 40s??and they given glucagon and brought him to the hospital.?? He reports??that he has??pain for which she takes Tylenol daily??around??6-10 pills??but could not clarify if they were all??at the same time??or if they were spaced out throughout the day.?? I also spoke to his sister that also??expressed her concern of??him taking too much Tylenol, but again she could not clarify??how many??daily or??at single time.?? He also reports??heavy drinking intermittently, but can go??up 2 weeks without drinking.?his sister expressed at different??story??where he apparently??is drinking almost on a daily basis,??has been seen by addiction medicine, is on ??acamprosate??which he does not take.?? He sometimes is??confused, agitated??when he is not drinking, and that makes him??recur??on his alcohol use disorder.?? She says that he has had??several hospitalizations before for confusion, where they also find??abnormal liver studies, but??he??acts like sharron rapp is wrong, and continued to tell providers that he feels fine??so he can be discharged to continue drinking well.?? He reported last??drink was on Wednesday??after the election.?? In the ED??He was initially hypothermic, and tachycardic which may criteria for SIRS therefore he was given ceftriaxone, and blood cultures were sent.?? Initial labs show leukocytosis, anemia, supratherapeutic INR, hyponatremia, metabolic acidosis, with an EDGAR, elevated AST/ALT, bilirubin and lactic.?? Elevated proBNP to 1200, and troponins of 33.?? Acetaminophen level to 110 and alcohol levels 278 and ammonia 23.?? He was started on NAC and was given a 1 L bolus of fluids. Review of Systems Review of systems otherwise negative, unless stated in HPI section Objective Measurements?? Height: 168 cm (02/12/24) Weight: 93.4 kg (02/12/24) Dry Weight: 82.7 kg (02/12/24) Body Mass Index:??33.09 kg/m2??Critical (02/12/24) ? Vital Signs?? Temperature: 97.5 DegF (02/12/24 08:02:00) Temperature Route: Axillary (02/12/24 08:02:00) Pulse Rate:??92 bpm??High (02/12/24 12:51:00) Heart Rate Monitored:??93 bpm??High (02/12/24 14:00:00) Respiratory Rate: 18 br/min (02/12/24 14:00:00) Systolic Blood Pressure: 99 mm Hg (02/12/24 14:00:00) Diastolic Blood Pressure: 62 mm Hg (02/12/24 14:00:00) Blood pressure sites: Arm, left (02/12/24 14:00:00) Mean Arterial Pressure: 74 mm Hg (02/12/24 08:02:00) Pulse Pressure: 37 mm Hg (02/12/24 14:00:00) Oxygen Saturation: 100 % (02/12/24 14:00:00) Mode of Delivery (Oxygen): Room air (02/12/24 14:00:00) Early Warning Score:??13??Critical (02/12/24 07:13:11) ? Physical Exam ?General:??Alert, comfortable, interactive ?CV:??Regular rate and rhythm, diastolic click ?Respiratory:??Lungs clear bilaterally, no wheezes, no crackles ?Abdomen:??Soft, nontender, nondistended, bowel sounds ?Extremities/MSK:??Moving all extremities equally, knees with hematomas, left hand ring finger with bruising and painful to palpation ?Skin: jaundice mild on face and upper trunk, scleral icterus ?Neuro:??Normal tone and strength, moving all extremities, appropriately alert Assessment/Plan Diagnoses Acute liver failure due to drug ??(K71.10) Elevated INR ??(R79.1) Hypocalcemia ??(E83.51) Hypotension ??(I95.9) Jaundice ??(R17) 1. ??Alcoholic hepatitis without ascites ??(K70.10) ?? Assessment:??Mr. Christianson is a Angolan speaking 63-year-old male patient with a past medical history of coronary artery disease, chronic systolic heart failure (echo with EF of 20 to 25% October 2021), mechanical aortic valve replacement (on Coumadin), hypertension, hyperlipidemia, GERD, alcohol use, tobacco abuse, and anxiety??admitted for??concern of??acute liver failure secondary to medication??overuse. ?? Gastrointestinal ?Acute Liver failure v alcoholic hepatitis Has high acetaminophen level Recent CT abdomen shows hepatic steatosis but no changes consistent with cirrhosis. He does have history??of alcohol use/abuse. Elevated LFTs, elevated INR, and hyperbili consistent with liver failure MELD: 43 65-66% 90 day mortality He does not have??severely elevated liver function test as you would expect from an acute liver failure secondary to acetaminophen toxicity, and has had several episodes??recently of??elevated LFTs that resolved??and with his history of??alcohol use??is??more consistent with alcoholic hepatitis than??acute liver failure.??Per GI NAC??would not hurt him so we should continue therapy??but we shouldaddress his??alcohol use. ?? Poison control recommended: CMP,??lactate, Tylenol lvl??q6 hours GI??was consulted and they do not believe??this is??acute liver failure, but most likely acute on chronic??alcoholic hepatitis ?? Plan NAC protocol for ASA overdose MELD score labs daily (LFTs trend, Bili, INR, Na daily) Hepatitis test (Hep A, B C) Liver US for thrombosis GI consult NAC x3 ? Alcohol Use disorder Drinks per day: 5-6 beers Last drink: Wednesday night Can go weeks without drink he reports He drinks several times per week says the sister He is??nonadherent with his??acamprosate ? Plan CIWA score Withdrawal protocol Thiamine Adjuvant vitamins Addiction Consult ?? Cardio Mechanical aortic valve on warfarin HFrEF 20-25%. ?? Plan Hold warfarin CAD-last clopidogrel fill was 6 months ago we will not continue due to bleeding risk from his supratherapeutic INR, continue metoprolol HFrEF- holding entresto due to liver dysfunction Holding atorvastatin for elevated liver function ?? Hematology Supratherapeutic INR Will Hold warfarin Likely from liver failure Was given Vit k??IV will order INR after 6 hours of administration to monitor there is no bleeding no need for quick reversal ?? Plan Hold warfarin INR daily PCC if bleeding Vit k if high ?? Renal EDGAR Had normal renal function on last admission 1 week ago, right now low concern for HRS but if Cr doesn't??improve with fluids consider Type 1 HRS? Plan FeNA labs (ur??Na, Cr, Na) Will give fluids Encourage PO ?? Hyponatremia Likely from dehydration Will reassess after fluids have been given ?? Plan Urine OSM Repeat CMP ?? Infectious disease Concern for infection as he was hypothermic and tachycardic with leukocytosis Blood cx sent,??UA normal, CXR normal He got ceftriaxone ?? Plan Follow-up blood cultures Continue ceftriaxone ?? Pulm Asthma On Symbicort, but not on formulary therefore we will change to Breo ? Quality Measures Code Status: Full Diet: Regular DVT: None INR supratherapeutic OMN: on NAC therapy, supratherapeutic??INR ?? Lennox Col??MD MS Luke mcdermottVivianahernan PGY-4 [facility]??& Harjit Porter p.[phone] ?? Patient seen and plan discussed with attending, Dr. Ann Histories Allergies Allergies ?(Active and Proposed Allergies Only) No Known Medication Allergies? (Severity: Unknown severity, Onset: Unknown) NKA? (Severity: Unknown severity, Onset: Unknown) ? Past Medical History/Problem List Active Problems(17) Alcohol use Alcohol use disorder Aortic valve prosthesis present Asthma CAD in [place] artery Chest pain Diarrheal stools Elevated INR INGRIS (generalized anxiety disorder) GERD (gastroesophageal reflux disease) H/O mechanical aortic valve replacement HFrEF (heart failure with reduced ejection fraction) Hyperlipidemia Hypertension Hyponatremia Loss of consciousness Obese class I ? Past Surgical History Elevation of depressed skull fracture; with repair of dura and/or debridement of brain: 06/02/11 ? Social History Tobacco Details:??Current every day smoker ? Family History No Family History documented. ? Medications Home Medications Acamprosate (acamprosate 333 mg oral delayed release tablet)?2?tab(s)?666?Milligram?By Mouth?2 times a day Albuterol (ProAir HFA 90 mcg/inh inhalation aerosol with adapter)?INHALE 2 PUFFS EVERY 4 TO 6 HOURS NEEDED Atorvastatin (atorvastatin 20 mg oral tablet)?1?tab(s)?20?Milligram?By Mouth?Daily Budesonide-Formoterol (Symbicort 160mcg/4.5mcg Inhaler)?2?puff(s)?Inhalation?2 times a day BusPIRone (busPIRone 10 mg oral tablet)?10?Milligram?1?tablet?By Mouth?3 times a day?TAKE 1 TABLET BY MOUTH THREE TIMES DAILY IN THE MORNING, EVENING, AND BEDTIME Clopidogrel (clopidogrel 75 mg oral tablet)?75?Milligram?1?tablet?By Mouth?Daily Docusate (docusate sodium 100 mg oral capsule)?1?capsule?100?Milligram?By Mouth?2times a day?as needed?as needed for constipation Enoxaparin (Lovenox 80 mg/0.8 mL injectable solution)?80?Milligram?Subcutaneous Injection?Every 12 hours?for 7?Days?*Note: Treatment = 1mg/kg/dose* Folic Acid (folic acid 1 mg oral tablet)?1?Milligram?1?tablet?By Mouth?Daily Lidocaine Topical (lidocaine 5% topical film)?1 patch?Topically?Daily?For lower back pain remove patches after 12 hours Magnesium Oxide (magnesium oxide 400 mg oral tablet)?Milligram?1?tab(s)?400?By Mouth?Daily Melatonin (melatonin 5 mg oral tablet)?1?tab(s)?5?Milligram?By Mouth?Daily at bedtime?as needed?for insomnia?2?10 Metoprolol (Metoprolol Succinate ER 50 mg oral tablet, extended release)?1?tab(s)?50?Milligram?By Mouth?Daily Olanzapine (olanzapine 5 mg oral tablet)?5?Milligram?1?tablet?By Mouth?Daily Pantoprazole (pantoprazole 40 mg oral delayed release tablet)?1?tab(s)?40?Milligram?By Mouth?2 times a day Phenobarbital (PHENobarbital 30 mg oral tablet)?30?Milligram?By Mouth?2 times a day?for 2?Days sacubitril-valsartan (Entresto 24 mg-26 mg oral tablet)?1?tab(s)?By Mouth?2 times a day Zolpidem (zolpidem 10 mg oral tablet)?1?tab(s)?10?Milligram?By Mouth?Daily at bedtime?as needed?as needed for insomnia ? Results Recent Labs BLOOD COUNT & DIFF WBC 13.1 k/mm3 (High)?? 02/12/2024 06:42 RBC 3.57 m/mm3 (Low)?? 02/12/2024 06:42 Hgb 9.7 Gm/dL (Low)?? 02/12/2024 06:42 Hct 30.9 % (Low)?? 02/12/2024 06:42 MCV 86.6 femtoliters ()?? 02/12/2024 06:42 MCH 27.2 pg ()?? 02/12/2024 06:42 MCHC 31.4 Gm/dL (Low)?? 02/12/2024 06:42 Platelet Count 330 k/mm3 ()?? 02/12/2024 06:42 RDW-SD 66.4 femtoliters (High)?? 02/12/2024 06:42 MPV 9.3 femtoliters (Low)?? 02/12/2024 06:42 Nucleated RBC (Automated) 0.0 #/100 WBC'S ()?? 02/12/2024 06:42 Abs. NRBC 0.0 k/mm3 ()?? 02/12/2024 06:42 Abs. Neut 11.9 k/mm3 (High)?? 02/12/2024 06:42 Abs. Lymph 0.3 k/mm3 (Low)?? 02/12/2024 06:42 Abs. [place] 0.8 k/mm3 ()?? 02/12/2024 06:42 Abs. Eo 0.0 k/mm3 ()?? 02/12/2024 06:42 Abs. Baso 0.0 k/mm3 ()?? 02/12/2024 06:42 Neut % 90.7 % (High)?? 02/12/2024 06:42 Lymph % 2.5 % (Low)?? 02/12/2024 06:42 [place] % 5.9 % ()?? 02/12/2024 06:42 Eos % 0.0 % ()?? 02/12/2024 06:42 Baso % 0.1 % ()?? 02/12/2024 06:42 Hemoglobin (POC) POC Cartridge 11.6 Gm/dL (Low)?? 02/12/2024 04:42 Hematocrit (POC) POC Cartridge 34 % (Low)?? 02/12/2024 04:42 Imm Gran 0.8 % ()?? 02/12/2024 06:42 Abs. Imm Gran 0.1 k/mm3 ()?? 02/12/2024 06:42 ?? BLOOD GAS pH Venous (POC) POC Cartridge 7.13 (Low)?? 02/12/2024 04:42 pCO2 Venous (POC) POC Cartridge 23.1 mm Hg (Low)?? 02/12/2024 04:42 pO2 Venous (POC) POC Cartridge 37 mm Hg ()?? 02/12/2024 04:42 Est Bicarbonate (POC) POC Cartridge 7.6 mmol/L (Low)?? 02/12/2024 04:42 % O2 Sat Venous (POC) POC Cartridge 55 ()?? 02/12/2024 04:42 Base Excess (POC) POC Cartridge NEGATIVE 22 ()?? 02/12/2024 04:42 Specimen Type - Blood Gas VENOUS ()?? 02/12/2024 12:53 pH, Venous 7.32 (Low)?? 02/12/2024 12:53 pCO2, Venous 30 mm Hg (Low)?? 02/12/2024 12:53 pO2, Venous 50 mm Hg (High)?? 02/12/2024 12:53 Bicarbonate, Estimated(Venous) 15 mmol/L (Low)?? 02/12/2024 12:53 ?? CARDIAC Nt-Probnp 1297 pg/mL (High)?? 02/12/2024 04:34 High Sensitivity Troponin (HSTnT) 33 ng/L (High)?? 02/12/2024 04:34 ?? CHEM GENERAL Sodium 130 mmol/L (Low)?? 02/12/2024 12:44 Potassium 4.4 mmol/L ()?? 02/12/2024 12:44 Chloride 100 mmol/L ()?? 02/12/2024 12:44 Bicarbonate Level 12 mmol/L (Low)?? 02/12/2024 12:44 Anion Gap 18 (High)?? 02/12/2024 12:44 Sodium (POC) POC Cartridge 124 mmol/L (Low)?? 02/12/2024 04:42 Potassium (POC) POC Cartridge 4.3 mmol/L ()?? 02/12/2024 04:42 Glucose Level 156 mg/dL (High)?? 02/12/2024 12:44 Glucose (POC) POC Cartridge 155 (High)?? 02/12/2024 04:42 Glucose, POC 150 mg/dL (High)?? 02/12/2024 08:03 BUN 15 mg/dL ()?? 02/12/2024 12:44 Creatinine-Blood 1.71 mg/dL (High)?? 02/12/2024 12:44 Estimated GFR Creatinine 44 ML/MIN/1.73 M2 ()?? 02/12/2024 12:44 Osmolality 296 mOs/kg (High)?? 02/12/2024 04:34 Calcium 7.7 mg/dL (Low)?? 02/12/2024 12:44 Calcium, Ionized pH Corrected ACTUAL MEASURED IONIZED CALCIUM IS 1.15MMOL/L mmol/L ()?? 02/12/2024 04:34 Ionized Calcium (POC) POC Cartridge 1.01 mmol/L (Critical)?? 02/12/2024 04:42 Phosphorus 3.2 mg/dL ()?? 02/12/2024 12:44 Magnesium 2.0 mg/dL ()?? 02/12/2024 04:34 Protein, Total 6.1 Gm/dL (Low)?? 02/12/2024 12:44 Albumin 3.5 Gm/dL ()?? 02/12/2024 12:44 AG Ratio 1.3 ()?? 02/12/2024 12:44 Alkaline Phosphatase 118 units/L ()?? 02/12/2024 12:44 Lipase 26 units/L ()?? 02/12/2024 04:34 AST (SGOT) 1062 units/L (High)?? 02/12/2024 12:44 ALT (SGPT) 969 units/L (High)?? 02/12/2024 12:44 Bilirubin, Total 2.5 mg/dL (High)?? 02/12/2024 12:44 Lactate 4.0 mmol/L (High)?? 02/12/2024 12:44 ?? COAG INR >9.6 (Critical)?? 02/12/2024 12:44 Protime (PT) >100.0 seconds (High)?? 02/12/2024 12:44 APTT 56.4 seconds (High)?? 02/12/2024 12:44 ?? ENDOCRINE/TUMOR MARKER TSH 1.09 uIU/mL ()?? 02/12/2024 04:34 ?? MISC. CHEMISTRY Ammonia, Venous 29 ??mole/L ()?? 02/12/2024 04:34 ?? SEROLOGY INF DISEASE Anti Hepatitis A IgM NON REACTIVE ()?? 02/12/2024 12:44 Hepatitis B Surface Antigen NON REACTIVE ()?? 02/12/2024 12:44 Anti-HBS Quant 1538.00 mIU/mL ()?? 02/12/2024 12:44 ?? TOXICOLOGY/TDM Ethanol, Serum or Plasma 78 mg/dL (Abnormal)?? 02/12/2024 04:34 Acetaminophen Level 93 mg/L (Critical)?? 02/12/2024 12:44 ?? UA/URINALYSIS Appear/Color, Urine YELLOW ()?? 02/12/2024 10:00 Specific Jbphh, Urine 1.023 ()?? 02/12/2024 10:00 pH, Urine 5.5 ()?? 02/12/2024 10:00 Albumin, Urine 1+ (Abnormal)?? 02/12/2024 10:00 Glucose, Urine NEGATIVE ()?? 02/12/2024 10:00 Ketones, Urine TRACE (Abnormal)?? 02/12/2024 10:00 Bilirubin, Urine NEGATIVE ()?? 02/12/2024 10:00 Hemoglobin, Urine 1+ (Abnormal)?? 02/12/2024 10:00 Nitrite, Urine NEGATIVE ()?? 02/12/2024 10:00 Leukocyte, Urine NEGATIVE ()?? 02/12/2024 10:00 Urobilinogen NORMAL mg/dL ()?? 02/12/2024 10:00 WBC's, Urine 1 /HPF ()?? 02/12/2024 10:00 RBC's, Urine 1 /HPF ()?? 02/12/2024 10:00 Bacteria MODERATE HPF (Abnormal)?? 02/12/2024 10:00 Squamous Epith 1 /HPF ()?? 02/12/2024 10:00 Hyaline Cast 19 LPF (High)?? 02/12/2024 10:00 Mucus SLIGHT /LPF ()?? 02/12/2024 10:00 Hold Urine Culture Testing available 48 hours from time of collection. ()?? 02/12/2024 10:00 ?? URINE OTHER Creatinine, Urine Random 102.2 mg/dL ()?? 02/12/2024 10:00 Sodium, Urine Random 41 mmol/L ()?? 02/12/2024 10:00 Urea Nitrogen, Urine Random 225.7 mg/dL ()?? 02/12/2024 10:00 Osmolality, Urine Random 349 mOsm/kg ()?? 02/12/2024 10:00 Est Creatinine Clearance 40.10 mL/min ()?? 02/12/2024 13:36 ?? VIROLOGY COVID-19 by RT-PCR NEGATIVE ()?? 02/12/2024 06:53 ? * Maegan Ann MD: PERFORM Event Display: Admission Note Authored Date: [id number] CRITICAL CARE ATTENDING NOTE Patient seen and examined, data reviewed, case and management discussed with house staff on rounds on the date of service. ??I confirmed the findings and agree with the resident???s documentation of the assessment and plan of care we developed together as detailed above with the following highlights /additions/modifications. Diagnoses:? S/P Fall at home ?ETOH disorder ? CAD/HFrEF ? S/P AVR on Warfarin ?Acute Hepatitis/ Liver Steatosis ?Acetaminophen OD and ETOH on board ? Lactic Acidosis Plan:? Fluid resuscitation ? N-Acetylcysteine ? Vitamin K At the time of service, this patient is critically ill due to the acute impairment of 1 or more vital organ systems such that there is a high probability of imminent or life-threatening deteriorationin the patient???s condition.? Critical Care Time =??45m (This represents the total time I personally spent evaluating, managing and providing care exclusive of time spent for separately billable procedures.) ? EKG study * Event Display: EKG Authored Date: * Event Display: ECG 12-Lead Authored Date: Please click on pdf link to open report * Event Display: ECG 12-Lead Authored Date: Ventricular Rate: 105 BPM Atrial Rate: 105 BPM P-R Interval: 132 ms QRS Duration: 188 ms Q-T Interval: 426 ms QTC Calculation(Bazett): 563 ms P [place]: -2 degrees R [place]: 57 degrees T [place]: 181 degrees Atrial-sensed ventricular-paced rhythm Abnormal ECG When compared with ECG of 21-Feb-2024 01:27, Vent. rate has decreased by 5 bpm Confirmed by Clifford Rojo ([id number]) on 02/25/2024 3:12:55 PM [place]: Clifford Rojo * Event Display: ECG 12-Lead Authored Date: Please click on pdf link to open report * Event Display: ECG 12-Lead Authored Date: Ventricular Rate: 110 BPM Atrial Rate: 68 BPM QRS Duration: 186 ms Q-T Interval: 422 ms QTC Calculation(Bazett): 571 ms R [place]: 35 degrees T [place]: 220 degrees Atrial-sensed ventricular-paced rhythm Abnormal ECG When compared with ECG of 18-FEB-2024 01:11, Vent. rate has increased BY 2 BPM Confirmed by WANDA LUGO ([id number]) on 02/21/2024 4:20:56 PM [place]: WANDA LUGO * Event Display: ECG 12-Lead Authored Date: Please click on pdf link to open report * Event Display: ECG 12-Lead Authored Date: Ventricular Rate: 108 BPM Atrial Rate: 108 BPM P-R Interval: 120 ms QRS Duration: 184 ms Q-T Interval: 436 ms QTC Calculation(Bazett): 584 ms P [place]: -33 degrees R [place]: 78 degrees T [place]: 262 degrees Atrial-sensed ventricular-paced rhythm Abnormal ECG When compared with ECG of 14-FEB-2024 06:16, Premature ventricular complexes are no longer Present Vent. rate has decreased BY 18 BPM Confirmed by JASMEET MUÑIZ ([id number]) on 02/18/2024 8:29:59 AM [place]: JASMEET MUÑIZ Cardiology * Event Display: Cardiac Rhythm Strips Authored Date: * Event Display: Cardiac Rhythm Strips Authored Date: * Event Display: Cardiac Rhythm Strips Authored Date: Laboratory * Event Display: Laboratory Result Scanned by Lab Authored Date: Hospital Progress note * Kyler Medina RN: PERFORM, SIGN, VERIFY Event Display: Progress Note Hospital Authored Date: Patient: JOHNATHAN CHRISTIANSON Age: 64 years Sex: Male : 1960 Associated Diagnoses: None Author: Kyler Medina RN Findings Problem Related to Alteration in Gastrointestinal : Alteration in Gastrointestinal Func/new 02/29/2024 21:00 EST Alteration in GI status Related to Liver Failure Goals & Outcomes, Gastrointestinal Establish a regular pattern of elimination for pt, Nutritional intake is adequate for metabolic needs, Pt will achieve normal/improved fluid balance, Pt will have a bowel movement prior to discharge, Pt will maintain adequate GI function appropriate for pt, Ptwill maintain normal elimination patterns, Pt will resume/maintain adequate hemodynamic status, Pt w ill tolerate age appropriate diet prior to discharge, Resolved problem, Goals/Outcomes met, Pt willresume/maintain mental status Interventions, Gastrointestinal Assess/monitor abdomen for distention, tenderness, Assess/monitor abdominal girth & bowel function, Assess/monitor bowel pattern, bowel sounds, flatus, Assess/monitor number of bowel movements, Assess/monitor color, quantity, quality, consistency of stoo, Assess/monitor pt for nausea, vomiting, Assess/monitor effects of re-hydration, DVT prophylaxis as ordered,Elevate HOB to facilitate lung expansion, prevent aspiration, Establish toileting schedule for patient BH Goals/Interventions, Gastrointestinal Yes Gastrointestinal, Problem Start 02/12/2024 17:46 Reviewed plan with, Gastrointestinal Patient Patient Progression, Gastrointestinal Pt progressing according to plan . Alteration in Respiratory Function (new) : Alteration in Respiratory Function/new 02/29/2024 21:00 EST Alteration in Resp Status Related to Pneumonia Goals & Outcomes, Respiratory Pt will maintain/resume baseline physical assessment, Pt will notdevelop complications r/t mechanical ventilation, Pt will maintain adequate nutritional intake, Pt will maintain/resume normal fluid/electrolyte balance Interventions, Respiratory Assess/monitor tolerance to IV infusions; verify rate/dose, Assess for and report S&S of respiratory distress, Monitor sputum color & consistency. Report changes toMD Goals/Interventions, Respiratory Yes Respiratory, Problem Start 02/29/2024 3:46 Reviewed Plan with, Respiratory Patient Patient Progression, Respiratory Patient progressing according to plan . Alteration in Safety : Alteration in Safety/new 02/29/2024 21:00 EST Alteration in Safety Related to Other: Agitation, Combativeness, Restraints Goals & Outcomes, Safety Pt will remain safe & injury free Interventions, Safety Provide info on community resources for education, support, Provide teaching as needed Goals/Interventions, Safety Yes Safety, Problem Start 02/19/2024 3:14 Reviewed plan with, Safety Patient Patient Progression, Safety Pt progressing according to plan . Nursing Data Vital Signs : VITAL SIGNS SECTION 03/01/2024 4:14 EST Early Warning Score 6.00 03/01/2024 4:14 EST Temperature 97.7 DegF Temperature Route Oral Pulse Rate 81 bpm Respiratory Rate 18 br/min Systolic Blood Pressure 124 mm Hg Diastolic Blood Pressure 62 mm Hg Blood pressure sites Arm, left Pulse Pressure 62 mm Hg Oxygen Saturation 98 % Mode of Delivery (Oxygen) Room air . Narrative/Incidental pt was medically cleared and ready for discharge during shift change. Family had difference and discharge plan causing patient to stay another night. pt tolerated medication well by mouth. pt was able to ambulate independently. pt was able to speak clearly and understood the plan of care. pt had bowel movement overnight. denies nausea, pain, and SOB. no other changes overnight.. Discharge Information Case Management Discharge Plan : Case Management Discharge Plan Data 02/29/2024 12:49 EST Discharge Level of Care at Discharge Homehealth/VNA Discharge VNA/Hospice/Home Care inter Name of Agency #1 [facility] Service Categories #1 Occupational Therapy, Physical Therapy, Senior Living Service Comments #1 [facility] will contact you 24/48hrs after discharge to arrange an in home visit. please clontact agency for any questions or concerns Rehabilitation Discharge : Rehab Discharge Index 02/28/2024 13:01 EST Comments on treatment indicated 64 y/o M admitted for concern of acute liver failure secondary to medication overuse. WBAT Skilled PT for therex, castro sfers, amb c LRAD, stairs. Anticiapte home c services pending improvement in AMS Distance pt will ambulate >100 ft c LRAD Full chart review completed Yes Hospital course see comment Other findings Pt is a moderate complexity evaluation as circumstances leading to hospitalization impact POC and functional mobility Plan of care PT Gait training, Transfer training, Therapeutic exercise, Functional Activities, Balance training, Neuromuscular education 02/25/2024 8:54 EST Comments on treatment indicated f/u Full chart review completed Yes Hospital course Hospital course * Tamiko Bales RN: PERFORM, SIGN, VERIFY Event Display: Progress Note Hospital Authored Date: Patient: JOHNATHAN CHRISTIANSON Age: 64 years Sex: Male : 1960 Associated Diagnoses: None Author: Tamiko Bales RN Findings Problem Related to Alteration in Gastrointestinal : Alteration in Gastrointestinal Func/new 02/29/2024 3:00 EST Alteration in GI status Related to Liver Failure Goals & Outcomes, Gastrointestinal Establish a regular pattern of elimination for pt, Nutritional intake is adequate for metabolic needs, Pt will achieve normal/improved fluid balance, Pt will have a bowel movement prior to discharge, Pt will maintain adequate GI function appropriate for pt, Ptwill maintain normal elimination patterns, Pt will resume/maintain adequate hemodynamic status, Pt w ill tolerate age appropriate diet prior to discharge, Resolved problem, Goals/Outcomes met, Pt willresume/maintain mental status Interventions, Gastrointestinal Assess/monitor abdomen for distention, tenderness, Assess/monitor abdominal girth & bowel function, Assess/monitor bowel pattern, bowel sounds, flatus, Assess/monitor number of bowel movements BH Goals/Interventions, Gastrointestinal Yes Gastrointestinal, Problem Start 02/12/2024 17:46 Reviewed plan with, Gastrointestinal Patient Patient Progression, Gastrointestinal Pt progressing according to plan . Alteration in Safety 02/29/2024 3:00 EST Alteration in Safety Related to Other: Agitation, Combativeness, Restraints Goals & Outcomes, Safety Pt will remain safe & injury free Interventions, Safety Provide info on community resources for education, support, Provide teaching as needed Goals/Interventions, Safety Yes Safety, Problem Start 02/19/2024 3:14 Reviewed plan with, Safety Patient Patient Progression, Safety Resolved problem Safety, Problem Resolved 02/28/2024 3:46 . Narrative/Incidental Pt had d/c order in, RBC transfusion completed with no issues, and d/c instructions gone over with family. Pt was about to leave the unit with his family, his son Johnathan Fletcher called the unit multipletimes to speak to the RNs and express his concerns for his father being discharged. Pts son continued to call the unit, we explained to him that he is not on the health care proxy form and we cannot discuss his fathers condition with him. Clinical nursing [place] production supervisor Hemalatha came to the unit to talk tothe son on the phone and with the family. The son was on the phone for over an hour discussing the concerns with the family and staff. The pts sister was refusing to take the pt home per the son's concerns. Clinical spring production supervisor explained to the family that pt could leave tomorrow morning but that the situation would be the same and pt may have to take a transport service home if he does not have aride. The d/c plan was explained multiple times to the family and the son on the phone. Pts family told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 thank you for allowing us to assist you with your healthcare needs. The following includes patient education materials and information regarding your injury/illness. Our entire staffstrives to provide an excellent experience for our patients and their families. PLEASE ENSURE YOU FOLLOW-UP PER THE INSTRUCTIONS BELOW! ?? YOUR OPINION IS IMPORTANT TO US! Please complete the survey you may receive by mail or email. Your feedback will be used to make improvements to the healthcare experiences of our patients and their families. Surveys are administered by [employer] ?? If further treatment with your primary care physician or another doctor is recommended, it is important for you to keep the appointment. Call your primary care physician or return to the Emergency Department immediately if your condition worsens, fails to improve, or new symptoms develop. If you need to find a doctor, you can call [facility] Link for a referral at [phone] or toll free at [phone]) or log in to [email or web address].. ?? [facility], in keeping with [facility] guidance, no longer requires face masks for staff, patientsor visitors in most situations. Similiar to time spent indoors at other locations, there is the chance that you were exposed to repiratory viruses during your time with us (such as flu or COVID-19). If you develop symptoms concerning for a viral respiratory infection, please seek testing (and treatment if indicated) from your medical provider or home test kit. ?? You can view and manage your care through the patient portal or by using a health care duc of your choosing. [employer] is a website that allows you to securely view your medical information including your hospital discharge summary, office visit summaries, medications and follow-up visits. You can also request appointments, renew medications, and request access to your medical information using a health care duc of your choosing, or just ask a question. You can enroll at [email or web address] or register during your next office visit. You have been discharged from [facility], Patient Care Unit: W4??. If you have any questions regarding these instructions, including results of studies pending, afteryou leave, please call us and we will be happy to assist you 26/10. [facility] Your Care Team Attending Physician Adrianne Lujan MD?? Consulting Providers Adrianne Lujan MD?? Discharging Providers Adrianne Lujan MD Reason for Your Visit Acute liver failure, EDGAR, ?hepatorenal syndrome, dehydration, alcoholic ketoacidosis?? 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 Acute on chronic symptomatic anemia Agitation EDGAR (acute kidney injury) Alcohol dependence Aspiration pneumonia CAD (coronary artery disease) Complete heart block Emphysema/COPD Fever GERD (gastroesophageal reflux disease) H/O mechanical aortic valve replacement / ascending aorta tube graft repair / h.o. bicuspid aorta Hepatic steatosis Hiatal hernia Hyperlipidemia Hypernatremia Hypertension Hypomagnesemia NSVT (nonsustained ventricular tachycardia) Pacemaker Seizure disorder Status post insertion of drug-eluting stent into left anterior descending (LAD) artery Tests Performed Below is a partial list of the tests performed during your hospitalization. You may have had other tests and procedures not included in this list. Please discuss all test results with your provider. ABG Acetaminophen Level Alcohol Level Alk Phos ALT Ammonia Venous AST BASE EXCESS POC CARTRIDGE Basic Metabolic Panel Bilirubin Total + Direct Blood Culture Blood Culture #2 Blood Culture 2 Results Blood Culture Result BUN Calcium Ionized CALCIUM IONIZED POC CART Calcium Level CBC CBC w/ Differential Comprehensive Metabolic Panel COVID-19 (2019 Novel Coronavirus) PCR COVID-19 (Novel Coronavirus), Rapid PCR CPK Total Only Creatinine Creatinine Urine Culture Sputum w/ Gram Smear Electrolytes Ferritin Glucose Level GLUCOSE POC GLUCOSE POC CARTRIDGE H + H HEMATOCRIT POC CARTRIDGE HEMOGLOBIN POC CARTRIDGE HEPATIC FUNCTION PANEL Hepatitis A Ab IgM Hepatitis B Core Ab IgM Hepatitis B Surface Antibody, Quant Hepatitis B Surface Antigen Hepatitis C RNA PCR Quant High Sensitivity Troponin T HOLD GREEN TUBE HOLD LAVENDER TUBE INR Ionized Calcium Lactate Level Lactic Acid Level Legionella Antigen Urine LFT's Lipase Lytes Magnesium Level Mg Level MRSA/MSSA PCR Nasal Swab Na Urine OSMOLALITY, SERUM Phosphorus Level POTASSIUM POC CARTRIDGE ProBNP Procalcitonin Level PT (INR) PTT RETICULOCYTE COUNT SODIUM POC CARTRIDGE Sodium Urine Sputum Culture Strep Pneumoniae Urinary Ag Troponin T, High Sensitivity TSH with T4 Reflex (Adults Only) Type and Screen UREA NITROGEN, URINE MG/DL Urinalysis w/hold for Urine Culture Urine Creatinine Urine Osmolality VBG VBG POC CARTRIDGE CT Head/Brain W/O Contrast CXR Portable KUB Portable Chest US Abdominal Doppler Ltd US Ascites XR Chest Portable ALT?? AST?? Acetaminophen Level?? Add On Lab Order?? Alk Phos?? Ammonia Venous?? Anti-HBS Quant (Hepatitis B Surface Antibody, Quant)?? B Type Natriuretic Peptide (ProBNP)?? BUN?? Base Excess (Lab) POC Cartridge (BASE EXCESS POC CARTRIDGE)?? Basic Metabolic Panel?? Bilirubin Total + Direct?? Blood Culture?? Blood Culture #2?? Blood Culture 2 Results?? Blood Culture Result?? Blood Gas Arterial (ABG)?? Blood Gas Venous (VBG)?? CBC?? CBC w/ Differential?? COVID-19 (2019 Novel Coronavirus) PCR?? COVID-19 (Novel Coronavirus), Rapid PCR?? CPK Total Only?? CT Head/Brain W/O Contrast?? Calcium Level?? Comprehensive Metabolic Panel?? Creatinine?? Creatinine Urine?? Electrolytes?? Ethanol Level (Alcohol Level)?? Ferritin?? Glucose (Lab) POC Cartridge (GLUCOSE POC CARTRIDGE)?? Glucose Level?? Glucose POC?? Hematocrit (Lab) POC Cartridge (HEMATOCRIT POC CARTRIDGE)?? Hemoglobin (Lab) POC Cartridge (HEMOGLOBIN POC CARTRIDGE)?? Hepatic Function Panel (LFT's)?? Hepatitis A Ab IgM?? Hepatitis B Core Ab IgM?? Hepatitis B Surface Antigen?? Hepatitis C RNA PCR Quant?? Hgb + Hct (H + H)?? High??Sensitivity??Troponin T (Troponin T, High Sensitivity)?? Hold Green Top Tube (HOLD GREEN TUBE)?? Hold Lavender Top Tube (HOLD LAVENDER TUBE)?? Hold Lavender Tube (BB)?? INR?? Ionized Calcium?? Ionized Calcium(POC) POC Cartridge (CALCIUM IONIZED POC CART)?? Lactic Acid Level?? Legionella Antigen Urine?? Lipase?? MRSA/MSSA PCR Nasal Swab?? Magnesium Level?? Osmolality (OSMOLALITY, SERUM)?? Osmolality Urine (Urine Osmolality)?? PTT?? Phosphorus Level?? Potassium (Lab) POC Cartridge (POTASSIUM POC CARTRIDGE)?? Procalcitonin Level?? Reticulocyte Ct (RETICULOCYTE COUNT)?? Sodium (Lab) POC Cartridge (SODIUM POC CARTRIDGE)?? Sodium Urine?? Sputum Culture?? Sputum, Gram Smear w/Culture Rfx (Culture Sputum w/ Gram Smear)?? Strep Pneumoniae Urinary Ag?? TSH with T4 Reflex (Adults Only)?? Transfuse RBCs?? Type and Screen?? US Abdominal Doppler Ltd?? US Ascites?? Urea Nitrogen Urine (UREA NITROGEN, URINE MG/DL)?? Urinalysis w/hold for Urine Culture?? VBG (Lab) POC Cartridge (VBG POC CARTRIDGE)?? XR Abdomen AP (KUB)?? Chest Portable (Portable Chest)?? Primary Care Provider Nathalie Hsu MD? Advance Directive Health Care Proxy on File Yes - Health Care Proxy Discharge Vitals Temperature: 98 DegF Height: 168 cm Pulse Rate: 60 bpm Weight: 80.9 kg Respiratory Rate: 18 br/min Body Mass Index:??33.09 kg/m2??Critical Systolic Blood Pressure: 110 mm Hg Body surface area: 2.09 Diastolic Blood Pressure:??51 mm Hg??Low ?? Oxygen Saturation: 97 % ?? Studies Pending All studies ordered during this hospital stay have been completed unless listed below. Please discuss all pending results with your provider listed above in these instructions. ?? Acetaminophen Level?? Add On Lab Order?? Blood Culture #2?? Comprehensive Metabolic Panel?? Hold Lavender Tube (BB)?? INR (PT (INR))?? Transfuse RBCs?? What to do next Instructions From Your Doctor ?? -Please follow all new medications as prescribed -The cardiology doctors will arrange follow-up for you as well??and will upgrade your pacemaker to a defibrillator device -Please follow-up with your primary care provider to your??blood work can be??rechecked in the coming days to ensure your electrolytes are normal -As discussed please refrain from any further alcohol use as this was??main cause behind your??repeat hospitalizations -Please continue to follow-up with your Coumadin clinic for your??warfarin medication management and dose change ? Orders??:Cardiac diet?? Afternoon, ??After blood transfusion complete, ??02/29/24 13:53:00 EST?? Prescriptions??, ??02/29/24 13:53:00 EST?? You Need to Schedule the Following Appointments Follow Up with??Aracelis ABDI , Nathalie James When:??Within Within one week Where: [address] [place] [address] [address] [place] [phone]- Discharge Medications JOHNATHAN CHRISTIANSON :1960 Visit Date:02/12/2024 Medications: Please continue your medications until treatment is completed or stopped by your provider. Medications not listed below should be discontinued. Discuss any questions related to medications with your provider. What How Much When Instructions Next Dose New Ferrous Sulfate (ferrous sulfate (as elemental iron) 45 mg oral tablet, extended release) 1 tab(s) Oral Daily Pickup at [place] [address] Wednesday New Furosemide (furosemide 20 mg oral tablet) 20 Milligram Oral Daily in the morning Pickup at [place] [address] Wednesday New Gabapentin (gabapentin 100 mg oral capsule) 100 Milligram Oral 3 times a day Pickup at [place] [address] Wednesday Evening New Lactulose (lactulose 10 gm/ 15 ml oral syrup) 30 Milliliter Oral 3 times a day Duration: 30 Days Pickup at [place] [address] Wednesday Evening New Spironolactone (Aldactone 25 mg oral tablet) 25 Milligram Oral Daily Pickup at [place] [address] Wednesday New Thiamine (thiamine 100 mg oral tablet) 100 Milligram Oral Daily Duration: 30 Days Pickup at [place] [address] Wednesday Changed Metoprolol (Metoprolol Succinate ER 25 mg oral tablet, extended release) 1 tab(s) Oral Daily Pickup at [place] [address] Wednesday Changed Warfarin (warfarin 5 mg oral tablet) TAKE 1 TO 2 TABLETS BY MOUTH EVERY DAY DIRECTED BY COUMADIN CLINIC ?? Wednesday Unchanged Albuterol (ProAir HFA 90 mcg/ inh inhalation aerosol with adapter) INHALE 2 PUFFS EVERY 4 TO 6 HOURS NEEDED ?? as needed Unchanged Budesonide-Formoterol (Symbicort 160mcg/ 4.5mcg Inhaler) 2 puff(s) Inhalation Twice a day Wednesday Unchanged BusPIRone (busPIRone 10 mg oral tablet) 1 tab(s) Oral 3 times a day Wednesday Unchanged Docusate (docusate sodium 100 mg oral capsule) 1 capsule Oral Twice a day as needed for as needed for constipation as needed for constipation Unchanged Folic Acid (folic acid 1 mg oral tablet) 1 tab(s) Oral Daily Wednesday Unchanged Lidocaine Topical (lidocaine 5% topical film) 1 patch Topically Daily For lower back pain remove patches after 12 hours ?? Wednesday Unchanged Melatonin (melatonin 5 mg oral tablet) 2 tab(s) Oral Daily at Bedtime as needed for for insomnia as needed for for insomnia Unchanged Pantoprazole (pantoprazole 40 mg oral delayed release tablet) 1 tab(s) Oral Twice a day Wednesday Pharmacy Information [facility]: [address] [place], [place] [id number] [phone] ?? What How Much When Comments Stop Taking Acamprosate (acamprosate 333 mg oral delayed release tablet) 2 tab(s) Oral Twice a day Stop Taking Atorvastatin (atorvastatin 20 mg oral tablet) 1 tab(s) Oral Daily Stop Taking Clopidogrel (clopidogrel 75 mg oral tablet) 1 tab(s) Oral Daily Stop Taking Magnesium Oxide (magnesium oxide 400 mg oral tablet) 1 tab(s) Oral Twice a day Stop Taking Olanzapine (olanzapine 5 mg oral tablet) 1 tab(s) Oral Daily Stop Taking Phenobarbital (PHENobarbital 30 mg oral tablet) 30 Milligram Oral Twice a day Duration: 2 Days Stop Taking sacubitril-valsartan (Entresto 24 mg-26 mg oral tablet) 1 tab(s) Oral Twice a day Stop Taking Zolpidem (zolpidem 10 mg oral tablet) 1 tab(s) Oral Daily at Bedtime as needed for as needed for insomnia Prescription Given During Visit Ferrous Sulfate (ferrous sulfate (as elemental iron) 45 mg oral tablet, extended release) - 1 tablet = 45 mg, By Mouth, Daily, # 30 tablet, 0 Refills, [place] [address] [phone]?? Furosemide (furosemide 20 mg oral tablet) - 20 mg, By Mouth, Daily in AM, # 30 tablet, 0 Refills, [place] [address] [phone]?? Gabapentin (gabapentin 100 mg oral capsule) - 100 mg, By Mouth, 3 times a day, # 90 tablet, 0 Refills, [place] [address] [phone]?? Lactulose (lactulose 10 gm/15 ml oral syrup) - 30 mL = 20 Gm, By Mouth, 3 times a day, # 2,700 mL, 0 Refills, [place] [address] [phone]?? Metoprolol (Metoprolol Succinate ER 25 mg oral tablet, extended release) - 1 tablet = 25 mg, By Mouth, Daily, # 30 tablet, 0 Refills, [place] [address] [phone]?? Spironolactone (Aldactone 25 mg oral tablet) - 25 mg, By Mouth, Daily, # 30 tablet, 0 Refills, [place] [address] [phone]?? Thiamine (thiamine 100 mg oral tablet) - 100 mg, By Mouth, Daily, # 30 tablet, 0 Refills, [place] [address] [phone]?? Laboratory Results Below is a partial list of the most recent Laboratory test results done prior to this discharge. You may have had other tests and procedures not included in this list. Please discuss all test resultswith your provider. Est Creatinine Clearance - 64.09 mL/min (02/29/2024) RBC Available - IS (02/29/2024) RBC Unit ID - [id number] (02/29/2024) ABG (02/24/2024) ???pH - 7.42???pCO2 - 37 mm Hg???pO2 - 79 mm Hg???Bicarbonate, Estimated - 24 mmol/L???Specimen Type - Blood Gas - ARTERIAL???Percent O2 (FIO2) - 28% Acetaminophen Level (02/14/2024) ???Acetaminophen Level - 8 mg/L Alcohol Level (02/12/2024) ???Ethanol, Serum or Plasma - 78 mg/dL Alk Phos (02/29/2024) ???Alkaline Phosphatase - 250 units/L ALT (02/29/2024) ???ALT (SGPT) - 75 units/L Ammonia Venous (02/24/2024) ???Ammonia, Venous - 38 ??mole/L AST (02/29/2024) ???AST (SGOT) - 72 units/L BASE EXCESS POC CARTRIDGE (02/12/2024) ???Base Excess (POC) POC Cartridge - NEGATIVE 22 Basic Metabolic Panel (02/24/2024) ???Sodium - 143 mmol/L???Potassium - 3.6 mmol/L???Chloride - 110 mmol/L???Bicarbonate Level - 22 mmol/L???Anion Gap - 11???Glucose Level - 142 mg/dL???BUN - 15 mg/dL???Creatinine-Blood - 0.91 mg/dL???Estimated GFR Creatinine - 95 ML/MIN/1.73 M2???Calcium - 7.7 mg/dL Bilirubin Total + Direct (02/29/2024) ???Bilirubin, Total - 14.7 mg/dL???Bilirubin, Direct - 9.5 mg/dL???Bilirubin, Indirect - 5.2 mg/dL Blood Culture (02/23/2024) ???Blood Culture Results - Final report???Blood Culture Specimen Source - BLOOD Blood Culture #2 (02/23/2024) ???Blood Cult 2 Results - Final report???Blood Culture 2 Specimen Source - BLOOD Blood Culture 2 Results (02/23/2024) ???Blood Culture 2 Isolate 1 - Comment Blood Culture Result (02/23/2024) ???Blood Culture Isolate 1 - Comment BUN (02/29/2024) ???BUN - 17 mg/dL Calcium Ionized (02/12/2024) ???Calcium, Ionized pH Corrected - ACTUAL MEASURED IONIZED CALCIUM IS 1.15MMOL/L CALCIUM IONIZED POC CART (02/12/2024) ???Ionized Calcium (POC) POC Cartridge - 1.01 mmol/L Calcium Level (02/25/2024) ???Calcium - 7.9 mg/dL CBC (02/28/2024) ???WBC - 14.0 k/mm3???RBC - 2.41 m/mm3???Hgb - 7.0 Gm/dL???Hct - 20.8 %???MCV - 86.3 femtoliters???MCH - 29.0 pg???MCHC - 33.7 Gm/dL???Platelet Count - 191 k/mm3???RDW-SD - 89.2 femtoliters???MPV - 11.4 femtoliters???Nucleated RBC (Automated) - 0.0 #/100 WBC'S???Abs. NRBC - 0.0 k/mm3 CBC w/ Differential (02/29/2024) ???WBC - 14.4 k/mm3???RBC - 2.29 m/mm3???Hgb - 7.0 Gm/dL???Hct - 20.5 %???MCV - 89.5 femtoliters???MCH - 30.6 pg???MCHC - 34.1 Gm/dL???Platelet Count - 215 k/mm3???RDW-SD - 93.5 femtoliters???MPV - 11.6 femtoliters???Nucleated RBC (Automated) - 0.0 #/100 WBC'S???Abs. NRBC - 0.0 k/mm3???Abs. Neut - 11.2 k/mm3???Abs. Lymph - 1.4 k/mm3???Abs. [place] - 1.5 k/mm3???Abs. Eo - 0.1 k/mm3???Abs. Baso - 0.0 k/mm3???Neut % - 77.4 %???Lymph % - 9.4 %???[place] % - 10.4 %???Eos % - 0.8 %???Baso % - 0.3 %???Imm Gran - 1.7 %???Abs. Imm Gran - 0.3 k/mm3 Comprehensive Metabolic Panel (02/23/2024) ???Sodium - 144 mmol/L???Potassium - 3.8 mmol/L???Chloride - 111 mmol/L???Bicarbonate Level - 19 mmol/L???Anion Gap - 14???Glucose Level - 93 mg/dL???BUN - 19 mg/dL???Creatinine-Blood - 1.06 mg/dL???Estimated GFR Creatinine - 79 ML/MIN/1.73 M2???Calcium - 8.1 mg/dL???Protein, Total - 5.2 Gm/dL???Albumin - 2.6 Gm/dL???AG Ratio - 1.0???Alkaline Phosphatase - 242 units/L???AST (SGOT) - 85 units/L???ALT (SGPT) - 209 units/L???Bilirubin, Total - 16.4 mg/dL COVID-19 (2019 Novel Coronavirus) PCR (02/23/2024) ???COVID-19 PCR Specimen Source - NASAL???COVID-19 PCR Result - NEGATIVE COVID-19 (Novel Coronavirus), Rapid PCR (02/12/2024) ???COVID-19 by RT-PCR - NEGATIVE CPK Total Only (02/24/2024) ???CK, Total - 112 units/L Creatinine (02/29/2024) ???Creatinine-Blood - 1.07 mg/dL???Estimated GFR Creatinine - 78 ML/MIN/1.73 M2 Creatinine Urine (02/19/2024) ???Creatinine, Urine Random - 106.2 mg/dL Culture Sputum w/ Gram Smear (02/21/2024) ???Sputum Culture Specimen Source - SUCTIONED SPUTUM???Sputum Cult Epithelial Cells - Moderate???Gram Stain Evaluation - Comment???Sputum Gram Stain Result 1 - Comment???Sputum Gram Stain Result 2 - Comment???White Blood Cells - Many Electrolytes (02/29/2024) ???Sodium - 135 mmol/L???Potassium - 3.3 mmol/L???Chloride - 101 mmol/L???Bicarbonate Level - 19 mmol/L???Anion Gap - 15 Ferritin (02/22/2024) ???Ferritin Level - 257 ng/mL Glucose Level (02/29/2024) ???Glucose Level - 121 mg/dL GLUCOSE POC (02/27/2024) ???Glucose, POC - 141 mg/dL GLUCOSE POC CARTRIDGE (02/12/2024) ???Glucose (POC) POC Cartridge - 155 H + H (02/14/2024) ???Hgb - 8.3 Gm/dL???Hct - 24.0 % HEMATOCRIT POC CARTRIDGE (02/12/2024) ???Hematocrit (POC) POC Cartridge - 34 % HEMOGLOBIN POC CARTRIDGE (02/12/2024) ???Hemoglobin (POC) POC Cartridge - 11.6 Gm/dL HEPATIC FUNCTION PANEL (02/25/2024) ???Protein, Total - 5.5 Gm/dL???Albumin - 2.3 Gm/dL???Alkaline Phosphatase - Test not performed,quantity insufficient???AST (SGOT) - 84 units/L???ALT (SGPT) - 116 units/L???Bilirubin, Total - 15.5 mg/dL???Bilirubin, Direct - HEMOLYZED???Bilirubin, Indirect - Unable to calculate Hepatitis A Ab IgM (02/12/2024) ???Anti Hepatitis A IgM - NON REACTIVE Hepatitis B Core Ab IgM (02/12/2024) ???Hepatitis B Core Ab, IgM - NEGATIVE Hepatitis B Surface Antibody, Quant (02/12/2024) ???Anti-HBS Quant - 1538.00 mIU/mL Hepatitis B Surface Antigen (02/12/2024) ???Hepatitis B Surface Antigen - NON REACTIVE Hepatitis C RNA PCR Quant (02/12/2024) ???Hepatitis C Quantitation - HCV Not Detected???Test Information - Comment High Sensitivity Troponin T (02/12/2024) ???High Sensitivity Troponin (HSTnT) - 31 ng/L HOLD GREEN TUBE (02/23/2024) ???Hold Green Top - SPECIMEN DISCARDED AFTER 1 WEEK HOLD LAVENDER TUBE (02/25/2024) ???Hold Lavender Top - SPECIMEN DISCARDED AFTER 24 HOURS. INR (02/24/2024) ? ?INR - >9.6? ?Protime (PT) - 90.9 seconds Ionized Calcium (02/25/2024) ???Calcium, Ionized pH Corrected - 1.31 mmol/L Lactate Level (02/25/2024) ???Lactate - 2.8 mmol/L Lactic Acid Level (02/29/2024) ???Lactate - 2.1 mmol/L Legionella Antigen Urine (02/23/2024) ???Legionella pneumophila Antigen - NEGATIVE LFT's (02/28/2024) ???Protein, Total - 5.7 Gm/dL???Albumin - 3.0 Gm/dL???Alkaline Phosphatase - 234 units/L???AST (SGOT) - 62 units/L???ALT (SGPT) - 75 units/L???Bilirubin, Total - 16.3 mg/dL???Bilirubin, Direct - 10.5mg/dL???Bilirubin, Indirect - 5.8 mg/dL Lipase (02/12/2024) ???Lipase - 26 units/L Lytes (02/28/2024) ???Sodium - 135 mmol/L???Potassium - 3.6 mmol/L???Chloride - 101 mmol/L???Bicarbonate Level - 20 mmol/L???Anion Gap - 14 Magnesium Level (02/29/2024) ???Magnesium - 1.4 mg/dL Mg Level (02/24/2024) ???Magnesium - 2.0 mg/dL MRSA/MSSA PCR Nasal Swab (02/23/2024) ???MRSA PCR Result - Negative, MRSA target DNA not detected.???S Aureus PCR Result - Negative, SA target DNA not detected. Na Urine (02/12/2024) ???Sodium, Urine Random - 41 mmol/L OSMOLALITY, SERUM (02/19/2024) ???Osmolality - 333 mOs/kg Phosphorus Level (02/29/2024) ???Phosphorus - 2.6 mg/dL POTASSIUM POC CARTRIDGE (02/12/2024) ???Potassium (POC) POC Cartridge - 4.3 mmol/L ProBNP (02/25/2024) ???Nt-Probnp - 524 pg/mL Procalcitonin Level (02/25/2024) ???Procalcitonin - 1.36 ng/mL PT (INR) (02/29/2024) ???INR - 2.1???Protime (PT) - 21.4 seconds PTT (02/18/2024) ???APTT - 36.3 seconds RETICULOCYTE COUNT (02/21/2024) ???Retic Count - 1.7 %???Retic Count Corrected - 0.9 %???Retic Production Index - 0.4 % SODIUM POC CARTRIDGE (02/12/2024) ???Sodium (POC) POC Cartridge - 124 mmol/L Sodium Urine (02/19/2024) ???Sodium, Urine Random - 22 mmol/L Sputum Culture (02/21/2024) ???Sputum Culture Isolate 1 - Comment???Sputum Culture Status - Final report Strep Pneumoniae Urinary Ag (02/23/2024) ???S. Pneumococcus Urinary Ag - NEGATIVE???Body Fld Cult - Not indicated.???Note Bact Ag Cult - Comment???Spec Source S pneumo - Urine???Org ID S pneumo - Not indicated. Troponin T, High Sensitivity (02/25/2024) ???High Sensitivity Troponin (HSTnT) - 24 ng/L TSH with T4 Reflex (Adults Only) (02/12/2024) ???TSH - 1.09 uIU/mL Type and Screen (02/29/2024) ???Blood Type - O Positive???Antibody Screen - Negative UREA NITROGEN, URINE MG/DL (02/12/2024) ???Urea Nitrogen, Urine Random - 225.7 mg/dL Urinalysis w/hold for Urine Culture (02/12/2024) ???Appear/Color, Urine - YELLOW???Specific Jbphh, Urine - 1.023???pH, Urine - 5.5???Albumin, Urine - 1+???Glucose, Urine - NEGATIVE???Ketones, Urine - TRACE???Bilirubin, Urine - NEGATIVE???Hemoglobin, Urine - 1+???Nitrite, Urine - NEGATIVE???Leukocyte, Urine - NEGATIVE???Urobilinogen - NORMAL???WBC's, Urine - 1 /HPF???RBC's, Urine - 1 /HPF???Bacteria - MODERATE???Squamous Epith - 1 /HPF???Hyaline Cast - 19 LPF???Mucus - SLIGHT???Hold Urine Culture - Testing available 48 hours from time of collection. Urine Creatinine (02/12/2024) ???Creatinine, Urine Random - 102.2 mg/dL Urine Osmolality (02/19/2024) ???Osmolality, Urine Random - 490 mOsm/kg VBG (02/13/2024) ???Specimen Type - Blood Gas - VENOUS???pH, Venous - 7.37???pCO2, Venous - 33 mm Hg???pO2, Venous -37 mm Hg???Bicarbonate, Estimated(Venous) - 18 mmol/L VBG POC CARTRIDGE (02/12/2024) ???pH Venous (POC) POC Cartridge - 7.13???pCO2 Venous (POC) POC Cartridge - 23.1 mm Hg???pO2 Venous(POC) POC Cartridge - 37 mm Hg???Est Bicarbonate (POC) POC Cartridge - 7.6 mmol/L???% O2 Sat Venous(POC) POC Cartridge - 55???Specimen Type - Blood Gas - VENOUS You will be contacted within 72 hours with your results. Allergies (NKA means No Known Allergies) NKA No Known Medication Allergies Problems Active Problems??(19) Alcohol use?? Alcohol use disorder?? Aortic valve prosthesis present?? Aortic Valve replacement?? Asthma?? [facility] [phone]?? CAD in [place] artery?? Chest pain?? Diarrheal stools?? Elevated INR?? INGRIS (generalized anxiety disorder)?? GERD (gastroesophageal reflux disease)?? H/O mechanical aortic valve replacement?? HFrEF (heart failure with reduced ejection fraction)?? Hyperlipidemia?? Hypertension?? Hyponatremia?? Loss of consciousness?? Severe obesity?? Education Materials Below is the list of Educational Leaflet Providered with your Discharge Instructions. Valuables and Belongings I fully understand and agree that [facility] accepts no responsibility for all my personal property including clothing, toilet articles, radios, jewelry, dentures, hearing aids, rings, money, or any other property that is in my possession or is brought to me after admission. I understand certain valuables may be placed in a hospital safe for a short period of time. I understand that the hospital is not liable for loss or damage due to accident, fire, or other natural occurrence while said property is in the safe. I accept full responsibility for any personal property that I keep with me, and will not hold the hospital responsible in case of loss or disappearance. I acknowledge that i have been encouraged to send valuables and belongings home. ?? Review of Valuable and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 (02/18/24) Sodium: 138 mmol/L (02/24/24) Potassium:??3.5 mmol/L??Low (02/24/24) Chloride: 104 mmol/L (02/24/24) Bicarbonate Level:??19 mmol/L??Low (02/24/24) Glucose Level:??129 mg/dL??High (02/24/24) BUN: 20 mg/dL (02/24/24) Creatinine-Blood: 1.1 mg/dL (02/24/24) Calcium:??7.7 mg/dL??Low (02/24/24) Protein, Total:??5.9 Gm/dL??Low (02/24/24) Albumin:??2.4 Gm/dL??Low (02/24/24) Alkaline Phosphatase:??256 units/L??High (02/24/24) AST (SGOT):??67 units/L??High (02/24/24) ALT (SGPT):??141 units/L??High (02/24/24) Bilirubin, Total:??16.6 mg/dL??High (02/24/24) CK, Total: 112 units/L (02/24/24) Nt-Probnp:??718 pg/mL??High (02/24/24) TSH: 1.09 uIU/mL (02/12/24) Free T4: 1.38 ng/dL (01/12/24) Diagnostic Impression CT CT Angio Abdomen and Pelvis ?? 21:29:34 IMPRESSION: ?? No acute aortic abnormality. ?? No acute abnormality in the chest, abdomen or pelvis. Unchanged pulmonary nodules. ?? Gastroesophageal reflux or dysmotility. ?? I have personally reviewed the images and I agree with this report. WSN: [id number] ? Ordering Physician: Araceli Mcintyre ?? Signed By: Elida ABDI, Hugh Farris ECG ECG 12-Lead ?? 01:27:43 Ventricular Rate: 110 BPM Atrial Rate: 68 BPM QRS Duration: 186 ms Q-T Interval: 422 ms QTC Calculation(Bazett): 571 ms R [place]: 35 degrees T [place]: 220 degrees Atrial-sensed ventricular-paced rhythm Abnormal ECG When compared with ECG of 18-FEB-2024 01:11, Vent. rate has increased BY 2 BPM Confirmed by WANDA LUGO ([id number]) on 02/21/2024 4:20:56 PM ?? [place]: WANDA LUGO ?? Signed By: Wanda Lugo MD ?? ECG 12-Lead ?? 01:27:43 Please click on pdf link to open report ?? Signed By: Wanda Lugo MD Echo Echocardiogram - Complete ?? 11:30:23 Summary The left ventricular size is at the upper limit of normal. Left ventricular wall thickness is normal. The LV systolic function is severely reduced . The left ventricular ejection fraction is 20-25 %. The mid to distal inferoseptal, inferior and inferolateral wall is akinetic. Grade I-II, mild to moderate diastolic dysfunction with impaired LV relaxation and increased LA pressure. The right ventricle is moderately dilated. Right ventricular systolic function is normal. A pacer/ICD wire is seen in the right ventricle. There is a mechanical valve in the aortic position #29 [place] valve. The prosthetic valve appears well seated . The gradient is normal for this valve type. There was trace prosthetic valve regurgitation. There is no perivalvular leak. ?? Comparison Comparison is made to the study of March 20, 2015. No significant change. ?? Signature ?? Signed By: Darren Soto DO Problem List/Past Medical History Ongoing Alcohol use Alcohol use disorder Aortic valve prosthesis present Asthma CAD in [place] artery Chest pain Diarrheal stools Elevated INR INGRIS (generalized anxiety disorder) GERD (gastroesophageal reflux disease) H/O mechanical aortic valve replacement HFrEF (heart failure with reduced ejection fraction) Hyperlipidemia Hypertension Hyponatremia Loss of consciousness Severe obesity Procedure/Surgical History Elevation of depressed skull fracture; with repair of dura and/or debridement of brain: 06/02/11 Social History Tobacco Current every day smoker Family History No family history recorded. * Capo Herrera DO: PERFORM Event Display: Consultation Note Authored Date: [id number] Attending Attestation:??I have seen and evaluated this patient. ??I have discussed the case and itsmanagement with the resident and agree with the findings and plan as documented in the resident's note.?? * Bogdan ABDI, Lauro H: PERFORM, MODIFY, MODIFY Event Display: Consultation Note Authored Date: [id number] Patient: ??JOHNATHAN CHRISTIANSON ? Age:??64 Years?Sex:??Male?:??1960?? Referrring Provider Lennox Blanco MD Reason for Consultation LFT elevation ? liver failure History of Present Illness ?? Angolan-speaking 63-year-old male with reported past medical history of CAD, heart failure, mechanical aortic valve on Coumadin, hypertension, hyperlipidemia, GERD, anxiety, presented after a fall.??Patient has been reporting generalized malaise, nausea, chills and himself called EMS today.?? He was found to be hypoglycemic given glucagon and brought to the hospital.?? Patient was found to have significant LFT elevation and concern for liver failure and was admitted to the ICU and GI was consulted for further recommendations. ?? Patient apparently has been taking significant doses of Tylenol for his chronic pain.?? He states he has pretty bad back pain.?? There is also concern for alcohol use disorder.?? While patient tries to downplay this, his sister states that he drinks daily.?? Patient has previously been seen by addiction medicine and was supposed to be on acamprosate but apparently is not taking this.?? His last drink was on Wednesday.?? Patient was unable to quantify how much he drinks for me.?? He was also unable to quantify exactly what dose of Tylenol he takes though he apparently takes up to 10 pills daily.?? Patient denies any prior diagnosis of liver cirrhosis.?? Patient has been hemodynamically stable with mild tachycardia.?? Patient's blood work shows a normal platelet count, mild WBC elevation, elevated INR of >9.6.?? Patient's LFTs were elevated with AST/ALT of 800/790 and a total bilirubin of 3.2.?? With alkaline phosphatase of 145.?? Patient's bilirubin has done down trended to 2.5 and his LFTs have up trended further.?? Patient's lactate down trended from 13.6-4.0.?? He had normal venous ammonia levels.?? His blood ethanol levels were high at 78.?? His acetaminophen levels were also high at 110.?? Patient is alert and oriented X3.?? He denies any abdominal pain, denies history of ascites requiring paracentesis.?? Patient denies any melena, hematochezia, hematemesis.?? Patient hasreceived NAC in the ED and is continue to receive it in the ICU. ? RESULT: CT Abd/Pelvis W/ IV Contrast Only CT Chest W/ Contrast, CT Abd/Pelvis W/ IV Contrast Only ?? IMPRESSION: ?? Stable chronic changes. There is no acute abnormality. ? Review of Systems Full review of systems completed and was negative except as mentioned above in HPI Physical Exam Vitals & Measurements T:??97.9?F?? TMIN:??95.4?F?? TMAX:??97.9?F?? HR:??94??(Monitored)?? RR:??16?? BP:??84/60??SpO2:??90%?? WT:??83.4??kg?? Constitutional: Alert, in no distress. Mental Status: Oriented to person, place and time. Gastrointestinal: Abdomen soft, no tenderness,??No pulsatile mass. Neurologic: Cranial nerves II-XII grossly intact.?? Skin:?? No petechiae or purpura.??No jaundice Musculoskeletal: No cyanosis or clubbing. No gross deformities. Normal range of motion. Psychiatric: Appropriate mood and affect?? Assessment/Plan ?? 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 Angolan-speaking 63-year-old male with reported past medical history of CAD, heart failure, mechanical aortic valve on Coumadin, hypertension, hyperlipidemia, GERD, anxiety, presented after a fall.?? Patient has been reporting generalized malaise, nausea, chills and himself called EMS today.?? He was found to be hypoglycemic given glucagon and brought to the hospital.?? Patient was found to have significant LFT elevation and concern for liver failure and was admitted to the ICU and GI was consulted for further recommendations.?? Patient's LFTs are uptrending however his bilirubin is now downtrending.?? His venous ammonia level is WNL.?? There is hepatic steatosis on imaging but no signs of cirrhosis or splenomegaly.?? His platelet counts are also normal which points away from portal hypertension.?? It seems like patient does not have cirrhosis however he could have acute alcoholic hepatitis.?? It is possible that his high Tylenol intake might be worsening the problem and his LFT elevation could be mixture of both alcoholic hepatitis and drug-induced liver injury.?? Patient is on warfarin which might explain his elevated INR which is still above 9.6.?? Given his improving bilirubin, clinical picture and the fact the patient is completely alert and oriented, it is unlikely thathe has true acute liver failure.?? We agree with continuing NAC due to concern for Tylenol overuse. ?? PLan: ?? Please check Hep A IgM and IgG, Hep B cAb/sAb/sAg, and Hep C Ab Monitor MELD labs daily including bilirubin, INR, creatinine, sodium Check daily ammonia level, trend mental status clinically and check daily for asterixis Abdominal ultrasound with doppler to assess for biliary obstruction, ascites, and portal or hepaticvein thrombus Complete infectious work up including UA, blood culture, CXR, and diagnostic paracentesis if able Addiction medicine consult. Pt agrees to stop drinking completely Avoid NSAIDS and avoid tylenol. consider multimodal pain managemet for his back pain Avoid sedatives Transplant candidacy: not a candidate given ongoing alcohol use. S/p Vit K. Repeat INR levels tonight and monitor Reach out to GI if pt develops AMS, asterixis or with any Qs or concerns. ? Thank you for referring this patient to the Division of Gastroenterology, [facility].?Please feel free to reach out with any questions or concerns. ?? The patient's case and management was discussed with Dr. Jovanni Mcfadden MD Gastroenterology Fellow PGY5 Division of Gastroenterology, [facility] - [facility] (The above document was created using [employer] voice recognition software. As such, staffing account manager errors may occur. Please contact the provider for additional questions and if clarification is needed.)?? Problem List/Past Medical History Ongoing Alcohol use Alcohol use disorder Aortic valve prosthesis present Asthma CAD in [place] artery Chest pain Diarrheal stools Elevated INR INGRIS (generalized anxiety disorder) GERD (gastroesophageal reflux disease) H/O mechanical aortic valve replacement HFrEF (heart failure with reduced ejection fraction) Hyperlipidemia Hypertension Hyponatremia Loss of consciousness Obese class I Procedure/Surgical History ???Elevation of depressed skull fracture; with repair of dura and/or debridement of brain (06/02/2011) Medications Inpatient Ativan Tablet, 1 mg, By Mouth, Every 2 hours, PRN Ativan Tablet, 2 mg, By Mouth, Every 2 hours, PRN Bisacodyl Supp, 10 mg= 1 supp, Rectally, 2 times a day, PRN Breo Ellipta 200 mcg-25 mcg Inhaler, 1 puffs, Inhalation, Daily Colace Liquid, 100 mg= 10 mL, By Mouth, 2 times a day, PRN Folic Acid Tablet, 1 mg, By Mouth, Daily LORazepam Tablet, 2 mg, By Mouth, Every hour, PRN melatonin 3 mg oral tablet, 9 mg, By Mouth, Daily at bedtime, PRN Milk of Magnesia Liquid, 30 mL, By Mouth, 2 times a day, PRN Multivit Therapeutic/Minerals Tablet, 1 tablet, By Mouth, Daily olanzapine 5 mg oral tablet, 5 mg, By Mouth, Daily Ondansetron Inj, 4 mg, IV Push, Every 6 hours, PRN pantoprazole 40 mg oral delayed release tablet, 40 mg, By Mouth, 2 times a day Pyridoxine Tablet, 50 mg, By Mouth, Daily Thiamine IVPB Thiamine IVPB Thiamine Tablet, 100 mg, By Mouth, 2 times a day zolpidem 5 mg oral tablet, 10 mg, By Mouth, Daily at bedtime, PRN Home acamprosate 333 mg oral delayed release tablet, 666 mg= 2 tablet, By Mouth, 2 times a day atorvastatin 20 mg oral tablet, 20 mg= 1 tablet, By Mouth, Daily busPIRone 10 mg oral tablet, 10 mg= 1 tablet, By Mouth, 3 times a day clopidogrel 75 mg oral tablet, 75 mg= 1 tablet, By Mouth, Daily docusate sodium 100 mg oral capsule, 100 mg= 1 capsule, By Mouth, 2 times a day, PRN Entresto 24 mg-26 mg oral tablet, 1 tablet, By Mouth, 2 times a day folic acid 1 mg oral tablet, 1 mg= 1 tablet, By Mouth, Daily lidocaine 5% topical film, 1 patch, Topically, Daily Lovenox 80 mg/0.8 mL injectable solution, 80 mg, Subcutaneous Injection, Every 12 hours magnesium oxide 400 mg oral tablet, 400 mg= 1 tablet, By Mouth, 2 times a day melatonin 5 mg oral tablet, 10 mg= 2 tablet, By Mouth, Daily at bedtime, PRN Metoprolol Succinate ER 50 mg oral tablet, extended release, 50 mg= 1 tablet, By Mouth, Daily olanzapine 5 mg oral tablet, 5 mg= 1 tablet, By Mouth, Daily pantoprazole 40 mg oral delayed release tablet, 40 mg= 1 tablet, By Mouth, 2 times a day PHENobarbital 30 mg oral tablet, 30 mg, By Mouth, 2 times a day ProAir HFA 90 mcg/inh inhalation aerosol with adapter Symbicort 160mcg/4.5mcg Inhaler, 2 puffs, Inhalation, 2 times a day zolpidem 10 mg oral tablet, 10 mg= 1 tablet, By Mouth, Daily at bedtime, PRN Allergies NKA No Known Medication Allergies Social History Tobacco Current every day smoker * Adilene Baig DO Tri: PERFORM Event Display: Consultation Note Authored Date: GI Attending Note: ?? The patient was seen, examined and discussed with the??fellow. I have personally reviewed all of the labs and imaging. Additionally, I personally created the assessment and plan of care on rounds anddelineated in the above note. Additional comments as below: ?? chronic etoh use, has had similar presentations prior with very elevated INR. this is not new. given the degree of etoh it is likely accentuating the effects of tylenol. he should limit to only 2g tylenol daily. agree with course of NAC as there is nothing else to offer besides supportive care. though he does not have evidence of amari cirrhosis on imaging i don't doubt that he has chronic liver disease and likely with fibrosis. i am not sure coumadin for AC is the best medication here as his INR may fluctuate based on his self inflicted liver injury and may not accurately represent his coagulopathy status. agree with daily meld labs for now, daily mental status checks. i do not think dailyammonia is needed, HE is a clinical diagnosis. addiction medicine cons. ?? Please call with questions or concerns. Thank you for allowing me to participate in this patient's care. ?? Adilene Baig DO [facility] Gastroenterology [address], [address] [place] [address] Patient Care team information Care Team Personnel Name: Rekha Hull RN Position: [facility] RN Member Role: Primary Care Nurse Name: Aura Salinas RN Position: S RN Member Role: Primary Care Nurse Name: Natividad Kern RN Position: [facility] RN Member Role: Primary Care Nurse Name: Greta Vargas RN Position: [facility] RN Member Role: Primary Care Nurse Name: Laverne Valles RN Position: [facility] RN Member Role: Primary Care Nurse Name: Laverne Coffey RN Position: [facility] RN Member Role: Primary Care Nurse Name: Enid Bee RN Position: [facility] RN Member Role: Primary Care Nurse Name: Nathalie Hsu MD Position: [facility] Outreach Member Role: PCP Address: [address] [place] [address] [place] [address] Telecom: Name: Shreya Felton RN Position: [facility] RN Member Role: Primary Care Nurse Name: Brenda Lopez RN Position: [facility] RN Member Role: Primary Care Nurse Name: Saige Hanson RN Position: [facility] AMB Nurse Member Role: Primary Care Nurse Name: Radha Mcgraw RN Position: [facility] RN Member Role: Primary Care Nurse Name: Claudia Jimenez Position: [facility] RN Member Role: Primary Care Nurse Name: Marlene Yang RN Position: [facility] ED RN W/OE and Tasks Member Role: Primary Care Nurse Name: Nakul Louise RN Position: [facility] RN Member Role: Primary Care Nurse Name: Joel Pepper Position: [facility] RN Member Role: Primary Care Nurse Name: Kyler Medina RN Position: [facility] RN Member Role: Primary Care Nurse Name: Bethany Brantley RN Position: [facility] RN Member Role: Primary Care Nurse Name: Mike Taylor RN Position: [facility] RN Member Role: Primary Care Nurse Name: Jas Su RN Position: [facility] RN Member Role: Primary Care Nurse Name: Zabrina Viramontes RN Position: [facility] RN Member Role: Primary Care Nurse Name: Keshawn Chakraborty RN Position: [facility] RN Member Role: Primary Care Nurse Name: Desirae Strickland RN Position: [facility] RN Member Role: Primary Care Nurse Name: Nathalie Howell RN Position: [facility] RN Member Role: Primary Care Nurse Name: Teresa Cordero Position: [facility] RN Member Role: Primary Care Nurse Name: Greta Osborne RN Position: [facility] RN Member Role: Primary Care Nurse Name: Melissa Macedo RN Position: [facility] RN Member Role: Primary Care Nurse Name: Benjamín Mercado III, RN Position: [facility] RN Member Role: Primary Care Nurse Name: Maricruz Marino RN Position: [facility] RN Member Role: Primary Care Nurse Name: Brandie Ng RN Position: [facility] RN Member Role: Primary Care Nurse Name: Kleber Bullock RN Position: [facility] RN Member Role: Primary Care Nurse Name: Melissa Stark RN Position: [facility] RN Member Role: Primary Care Nurse Name: Cordelia Perez RN Position: [facility] RN Member Role: Primary Care Nurse Name: Jennifer Mac RN Position: [facility] RN Member Role: Primary Care Nurse Name: Carissa Goetz RN Position: [facility] RN Member Role: Primary Care Nurse Name: Laurence Rubin RN Position: [facility] RN Member Role: Primary Care Nurse Name: Karen Schulte RN Position: [facility] RN Member Role: Primary Care Nurse Name: Hema Mendieta RN Position: [facility] RN Member Role: Primary Care Nurse Name: Mariza Ro RN Position: [facility] RN Member Role: Primary Care Nurse Name: Dot Mcmillan RN Position: [facility] RN Member Role: Primary Care Nurse Name: Antoine Douglas RN Position: [facility] RN Member Role: Primary Care Nurse Name: Angeles Tan RN Position: [facility] RN Member Role: Primary Care Nurse Name: Renetta Heart RN Position: [facility] RN Member Role: Primary Care Nurse Name: Zo Juarez LPN Position: [facility] RN Member Role: Primary Care Nurse Name: Neris Louie RN Position: [facility] RN Member Role: Primary Care Nurse Name: Sumaya Grace RN Position: [facility] RN Member Role: Primary Care Nurse Name: Raj RIDLEY, Sarah Jacques Position: S RN Member Role: Primary Care Nurse Name: Amanda King RN Position: [facility] RN Member Role: Primary Care Nurse Care Team Related Persons Name: SOFÍA VELOZ Name: SHYANNE CHRISTIANSON Name: MARY CHRISTIANSON Name: JOHNATHAN CHRISTIANSON Insurance Providers Guarantor name: Health Plan Information #: 1 Payer: [id number] Member Number: [id number] Policy Number: Group Number: Health Plan Information #: 2 Payer: [employer] Member Number: [id number] Policy Number: Group Number:
== END 2024-03-10 10:55 | disposition home or self-care (01) ==
LOC: HO.HHCL 10:54
PROVIDERS: Visit Provider Internal Medicine
DX: D64.9 Anemia, unspecified (principal); E87.1 Hypo-osmolality and hyponatremia; N17.9 Acute kidney failure, unspecified; Z79.01 Long term (current) use of anticoagulants
CPT/HCPCS: 36415; 80053; 85027; 85610

== ENCOUNTER 2024-03-10 13:01 | Outpatient (AMB) | payer MEDICAID, SELFPAY ==
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
== END 2024-03-10 13:44 | disposition home or self-care (01) ==
PROVIDERS: PCP Family Medicine; Visit Provider Internal Medicine
DX: K72.90 Hepatic failure, unspecified without coma (principal); K74.60 Unspecified cirrhosis of liver; D64.9 Anemia, unspecified; F10.20 Alcohol dependence, uncomplicated
CPT/HCPCS: 99204

== ENCOUNTER 2024-03-22 09:06 | Outpatient (REF) | payer MEDICAID, SELFPAY ==
[2024-03-22 11:57] LABS: MANUAL DIFF FLAG NO
[2024-03-22 12:02] LABS: Basophils Absolute Auto 0.1 X10*3/uL (0.0-0.2); Basophils Percent Auto 1.2 % (0-2); Eosinophils Absolute Auto 0.2 X10*3/uL (0.0-0.4); Eosinophils Percent Auto 2.1 % (0-4); Hematocrit 30.2 % (42.0-52.0); Hemoglobin 9.9 g/dl (14.0-18.0); Imm Gran Abs Auto 0.02 X10*3/uL (0.00-0.03); Imm Gran Pct Auto 0.2 % (0.0-0.4); Lymphocytes Percent Auto 23.7 % (20-40); Mean Corpuscular HGB Conc 32.8 g/dl (31.0-36.0); Mean Corpuscular Hemoglobin 31.6 pg (27.0-33.0); Mean Corpuscular Volume 96.5 fL (80.0-98.0); Mean Platelet Volume 10.3 fL (9.4-12.4); Monocytes Absolute Auto 0.9 X10*3/uL (0.1-1.2); Monocytes Percent Auto 10.6 % (2-11); Neutrophils Absolute Auto 5.3 x10*3/uL (2.0-8.3); Neutrophils Percent Auto 62.2 % (45-73); Platelet Count 217 X10*3/uL (160-400); Red Blood Count 3.13 X10*6/uL (4.60-5.80); Red Cell Distribution Width 22.6 % (11.0-16.0); White Blood Count 8.5 X10*3/uL (4.8-10.8)
[2024-03-22 12:03] LABS: Hematocrit 30.7 % (42.0-52.0); Mean Corpuscular HGB Conc 32.6 g/dl (31.0-36.0); Mean Corpuscular Hemoglobin 31.5 pg (27.0-33.0); Mean Corpuscular Volume 96.8 fL (80.0-98.0); Platelet Count 216 X10*3/uL (160-400); Red Blood Count 3.17 X10*6/uL (4.60-5.80); Red Cell Distribution Width 22.5 % (11.0-16.0); White Blood Count 8.1 X10*3/uL (4.8-10.8)
[2024-03-22 12:11] LABS: INTERNATIONAL NORM RATIO 2.3 (0.9-1.1)
[2024-03-22 12:27] LABS: Alanine Aminotransferase 36 U/L (0-40); Alkaline Phosphatase 199 U/L (39-117); Anion Gap 7 (12-20); Aspartate Amino Transferase 52 U/L (5-37); Bilirubin Total 3.2 mg/dL (0.0-1.0); Blood Urea Nitrogen 14 mg/dL (9-16); Calcium 7.9 mg/dL (8.4-10.2); Carbon Dioxide 20 mmol/L (22-29); Chloride 112 mmol/L (96-108); Estimated Glomerular Filt Rate > 60; Glucose Random 116 mg/dL (60-115); Magnesium 1.5 mg/dL (1.6-2.6); Phosphorus 3.3 mg/dL (2.7-4.5); Potassium 3.4 mmol/L (3.3-5.1); Sodium 136 mmol/L (135-145); Total Protein 7.4 g/dL (6.5-8.0)
== END 2024-03-22 09:07 | disposition home or self-care (01) ==
LOC: HO.HHCL 09:06
PROVIDERS: Family Medicine; Visit Provider Internal Medicine
DX: K72.90 Hepatic failure, unspecified without coma (principal); K74.60 Unspecified cirrhosis of liver; F10.20 Alcohol dependence, uncomplicated
CPT/HCPCS: 36415; 80053; 83735; 84100; 85025; 85027; 85610

== ENCOUNTER 2024-03-24 12:08 | Outpatient (AMB) | payer MEDICAID, SELFPAY ==
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
[2024-03-24 12:24] VITALS: BP 137/62; PULSE 92; BMI 27.4
== END 2024-03-24 13:03 | disposition home or self-care (01) ==
PROVIDERS: PCP Family Medicine; Visit Provider Internal Medicine
DX: K72.90 Hepatic failure, unspecified without coma (principal); K74.60 Unspecified cirrhosis of liver; D64.9 Anemia, unspecified; F10.20 Alcohol dependence, uncomplicated; Z79.01 Long term (current) use of anticoagulants; R54 Age-related physical debility; I49.9 Cardiac arrhythmia, unspecified; I42.9 Cardiomyopathy, unspecified
CPT/HCPCS: 99214

== ENCOUNTER → 2024-03-24 12:08 | Outpatient (BNVA) | payer MEDICAID, SELFPAY | PROVIDERS: PCP Family Medicine; Visit Provider Internal Medicine | DX: K74.60 Unspecified cirrhosis of liver (principal); K72.90 Hepatic failure, unspecified without coma; D64.9 Anemia, unspecified; F10.20 Alcohol dependence, uncomplicated; I25.10 Atherosclerotic heart disease of native coronary artery without angina pectoris; M62.84 Sarcopenia; I49.9 Cardiac arrhythmia, unspecified; I42.9 Cardiomyopathy, unspecified; Z95.2 Presence of prosthetic heart valve; Z55.6 Problems related to health literacy; Z79.01 Long term (current) use of anticoagulants | CPT/HCPCS: 99212 ==

== ENCOUNTER 2024-04-14 12:45 | Outpatient (REF) | payer MEDICAID, SELFPAY ==
--- NOTE | ~2024-04-14 | US_ITS ---
EXAMINATION: US ABDOMEN COMPLETE CLINICAL INFORMATION: Hepatic failure, unspecified without coma. COMPARISON: Ultrasound 11/17/2022, CT examinations (numerous) most recently 12/08/2023. TECHNIQUE: Real-time grayscale and color Doppler imaging of the abdominal viscera. FINDINGS: PANCREAS: Visualized portions are unremarkable. ABDOMINAL AORTA: The proximal, mid, and distal segments are normal in caliber. INFERIOR VENA CAVA: Visualized portions are normal. LIVER: The liver is normal in size. The liver contour is normal. There is diffuse increased liver parenchymal echogenicity, consistent with hepatic steatosis. No focal hepatic lesion. There is no intrahepatic biliary duct dilatation seen. GALLBLADDER: The gallbladder is physiologically distended without evidence of stones, sludge, polyps, wall thickening or pericholecystic fluid. There is mild adenomyomatosis of the gallbladder wall as evidenced by ring down artifact. COMMON BILE DUCT: Normal in caliber measuring 0.4 cm in diameter. RIGHT KIDNEY: No hydronephrosis. No renal calculi or suspicious focal parenchymal lesions. The kidney measures 10.0 cm in maximum dimension. There is a simple lower pole cyst measuring 0.8 cm. LEFT KIDNEY: No hydronephrosis. No renal calculi or focal parenchymal lesions. The kidney measures 12.7 cm in maximum dimension. SPLEEN: The spleen measures 11.1 cm in maximum dimension. FREE FLUID: None. US/US abdomen complete IMPRESSION: 1. Mild diffusely increased hepatic parenchymal echogenicity, suggestive of mild steatosis. No focal suspicious lesion. 2. No biliary abnormality. 3. Mild adenomyomatosis of the gallbladder. Gallbladder otherwise normal. 4. 0.8 cm simple cyst right kidney. Electronically signed by: Keron Herrera MD 04/17/2024 03:49 PM [facility]
[2024-04-14 13:50] LABS: Hematocrit 40.6 % (42.0-52.0); Hemoglobin 13.6 g/dl (14.0-18.0); Mean Corpuscular HGB Conc 33.5 g/dl (31.0-36.0); Mean Corpuscular Hemoglobin 31.5 pg (27.0-33.0); Mean Platelet Volume 8.7 fL (9.4-12.4); Platelet Count 271 X10*3/uL (160-400); Red Blood Count 4.32 X10*6/uL (4.60-5.80); Red Cell Distribution Width 17.2 % (11.0-16.0); White Blood Count 9.7 X10*3/uL (4.8-10.8)
[2024-04-14 13:55] LABS: INTERNATIONAL NORM RATIO 2.7 (0.9-1.1); Prothrombin Time 31.9 SEC (10.9-12.4)
[2024-04-14 14:27] LABS: Alanine Aminotransferase 28 U/L (0-40); Albumin Level 3.8 g/dL (3.5-5.0); Alkaline Phosphatase 146 U/L (39-117); Anion Gap 10 (12-20); Aspartate Amino Transferase 35 U/L (5-37); Bilirubin Total 1.6 mg/dL (0.0-1.0); Blood Urea Nitrogen 20 mg/dL (9-16); Calcium 9.1 mg/dL (8.4-10.2); Carbon Dioxide 20 mmol/L (22-29); Chloride 112 mmol/L (96-108); Estimated Glomerular Filt Rate > 60; Glucose Random 89 mg/dL (60-115); Potassium 4.1 mmol/L (3.3-5.1); Sodium 138 mmol/L (135-145); Total Protein 8.7 g/dL (6.5-8.0)
[2024-04-18 09:49] LABS: Alpha Fetoprotein 4.7 ng/mL (<6.1)
[2024-04-21 08:47] LABS: Phosphatidylethanol 16:0-18:1 NEGATIVE; Phosphatidylethanol 16:0-18:2 NEGATIVE
== END 2024-04-14 12:46 | disposition home or self-care (01) ==
LOC: HO.US 12:45
PROVIDERS: PCP Family Medicine; Visit Provider Internal Medicine
DX: K72.90 Hepatic failure, unspecified without coma (principal); K74.60 Unspecified cirrhosis of liver
CPT/HCPCS: 36415; 76700; 80053; 80321; 82105; 85027; 85610

== ENCOUNTER → 2024-04-14 12:46 | Outpatient (BNV) | payer MEDICAID, SELFPAY | PROVIDERS: PCP Family Medicine; Visit Provider Radiology Diagnostic Radiology | DX: K72.90 Hepatic failure, unspecified without coma (principal) | CPT/HCPCS: 76700 ==

== ENCOUNTER 2024-04-28 14:42 | Outpatient (AMB) | payer MEDICAID, SELFPAY ==
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
[2024-04-28 15:05] VITALS: BP 125/66; PULSE 80; BMI 30.7
--- OUTSIDE RECORDS SUMMARY | 2024-04-28 16:07 | XMS_ITS | Encounter Summary ---
Author Organization [employer] Address [address] [place] [address] Care Team Providers Care Bed Teacher Name Role Phone Nathalie Hsu MD Primary Care Provider [phone] Shannan Barrow RN Unavailable Lisbeth Johnson Unavailable Reason for Visit * Reason Onset Date Comments Anticoagulation 03/30/2024 Encounter Details Date Type Department Care Team (Late st Contact Info) Description 03/30/2024 Telephone [facility] MEDICINE [address] [place], [place] [phone] Nathalie Hsu MD [address], [place] [id number] Anticoagulation Social History Tobacco Use Types Packs/Day Years Used Date Smoking Tobacco: Every Day Cigarettes Passive Smoke Exposure: Current Smokeless Tobacco: Never Alcohol Use Standard Drinks/Week Comments Yes 0 (1 standard drink = 0.6 oz pur e alcohol) Alcohol Answer Date Recorded Frequency of Alcohol Consumption Not on file 01/19/2024 Average Number of Drinks Not on file 024 Frequency of Binge Drinking Not on file 01/03 Score 1 01/19/2024 Depression Answer Date Recorded Patient Health Questionnaire-9 Score 0 06/09/2023 Patient Health Questionnaire-9 Score 0 06/09/2023 Last PHQ-9: Questionnaire Data Not on file 0 06/09/2023 Housing Stability Answer Date Recorded What is your housing situation today? I have memo [employer] 06/01/[address] you li ve. Do you have problems with any of the following? None of the above 06/01/2023 Food Insecurity Answer Date Recorded Within the past 12 months, y ou worried that your food would run out before you got money to buy more: Never True 06/01/2023 Within the past 12 months,th e food you bought just didn't last and you didn't have enough money to get more: Never True Transportation Answer Date Recorded In the past 12 months, has l ack of transportation kept you from medical appts, meetings, work or from getting things needed for daily living? Yes, it has kept me from medical appointments or getting medications.;Yes, it has kept me from non-medical meetings, work, or getting things that I need 06/01/2023 Utilities Answer Date Recorded In the past 12 months, has t he electric, gas, 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 threatened to shut off services in your home? No 06/01/2023 Depression Answer Date Recorded Patient Health Questionnaire-2 Score 0 06/09/2023 Sex and Gender Information Value Date Recorded Sex Assigned at Male 02/02/2022 10:17 AM EDT Legal Sex Male 10:17 AM EDT Gender Identity Male 02/02/2022 10:17 AM EDT Sexual Orientation Straight 02/02/2022 10 :17 AM EDT documented as of this encounter Miscellaneous Notes * Telephone Encounter - Shannan Barrow RN - 03/30/2024 1:36 PM EST S: Pt is due for PT/INR today due to hx of DVT's. Pt's target INR is 2.5-3.5. This RN spoke with KAVIN Duff who denies any new medications or changes in diet. Pt has been compliant with INR draws. O: INR today is: 2.5. Pt current dose is hold coumadin TU/ 5mg TH, CARVER/ 2.5mg the rest. A: Hx of DVT Risk for blood clot due to sub therapeutic INR Hx of afib Hx of prosthetic heart valve P: Pt is to take 5mg TH, CARVER/ 2.5mg the rest of the week and repeat INR 04/04/24 per VNA preference.VNA aware that we close at 1pm that day and states will call prior to then. VNA aware of dosing anddraw date. Shannan Danial, RN * Telephone Encounter - Theresa Stover RN - 03/30/2024 1:20 PM EST Incoming call to the Critical Result line 03/30/24 at 1:20 PM Name of Caller/Facility: Sherin [facility] Callback number: [phone] Reason for Call: INR of 2.5 today. Per chart review note earlier today Sherin spoke to someone president & ceo [employer] but does not know the name of the provider at this time. She received orders to hold warfarin dose 03/28/24 resume on Wednesday03/29/24 2.5mg warfarin and recheck today 03/30/24. Message to be forwarded to Nathalie Hsu MD and team nurses for follow up. documented in this encounter Plan of Treatment Not on file documented as of this encounter Procedures Procedure Name Priority Date/Time Associated Diagnosis Comments PROTHROMBIN TIME-INR Routine 03/30/2024 PROTHROMBIN TIME-INR Routine 03/28/2024 documented in this encounter Results * Prothrombin Time-INR (03/30/2024) INR 2.50 2.50 - 3.50 EXTERNAL LAB Protime EXTERNAL LAB Blood Venous blood specimen / Unknown Nathalie Hsu MD LAB BLOOD ORDERABLES Final Result EXTERNAL LAB * Prothrombin Time-INR (03/28/2024) INR 3.10 2.50 - 3.50 EXTERNAL LAB Protime EXTERNAL LAB Blood Venous blood specimen / Unknown Nathalie Hsu MD LAB BLOOD ORDERABLES Final Result EXTERNAL LAB documented in this encounter Visit Diagnoses Diagnosis History of prosthetic heart valve documented in this encounter Additional Health Concerns Assessment Noted Time PHQ-9 Depression Total Score: 0 06/09/19 24 9:13 AM EST documented as of this encounter Care Teams Bed Teacher Relationship Specialty Start Date End Date Nathalie Hsu MD [address] [place] [address] PCP - General Family Medicine 09/27/13 Shannan Barrow, RN [address] [place] [address] Registered Nurse 02/29/24 Lisbeth Johnson [address] [place] [address] Gastroenterology 03/15/24 Tonya Poole Central Office Operator SupervisorBird Trapper 01/19/24 Raman (A S) Registered Nurse 02/29/24 Marcos Verdin MD [facility] [address] [place] [address] Cardiology 03/10/24 Omid Vincent Psychiatry 03/15/24 documented as of this encounter
--- OUTSIDE RECORDS SUMMARY | 2024-04-28 16:07 | XMS_ITS | Encounter Summary ---
Author Organization [employer] Address [address] [facility] [facility] [address] [facility] [address] [address] 7t [place] [address] Care Team Providers Care Blood Tester Fowl Name Role Phone Nathalie Hsu MD Primary Care Provider [phone]- [phone] Shannan Barrow RN Unavailable [phone] Lisbeth Johnson Unavailable Reason for Visit * Reason Onset Date Comments Anticoagulation 04/04/2024 Encounter Details Date Type Department Care Team (Late st Contact Info) Description 04/04/2024 Telephone [facility] MEDICINE [address] [place] [address] Lesly Crocker RN Anticoagulation Social History Tobacco Use Types Packs/Day [...] t he electric, gas, oil or water [employer] threatened to shut off services in your [...] encounter Miscellaneous Notes * Telephone Encounter - Lesly Crocker RN - 04/04/2024 11:21 AM EST S: Pt is due for PT/INR today due to hx of DVT's. Pt target INR is 2.5-3.5. This RN spoke with KAVIN Duff who denies any new medications or changes in diet. Pt has been compliant with INR draws. O: INR today is 2.8. Pt current dose is 5 MG on , and 2.5 MG the rest of the week. A: Hx of DVT Risk for blood clot due to sub therapeutic INR Hx of afib Hx of prosthetic heart valve P: Dosing provided by covering provider Dr. Grayson as PCP Dr. Hsu is out of the office Per Dr. Grayson the pt is to continue the same dose of 5 MG every and Wednesday. 2.5 MG the rest of the week. The pt is to have PT/INR rechecked next Wednesday04/11/2024. This was reported to A nurse Duff who confirmed understanding. Lesly Crocker RN documented in this encounter Plan of Treatment Not on file documented as of this encounter Procedures Procedure Name Priority Date/Time Associated Diagnosis Comments PROTHROMBIN TIME-INR Routine 04/04/2024 documented in this encounter Results * (ABNORMAL) Prothrombin Time-INR (04/04/2024) INR 2.80(A) 0.90 - 1.10 [facility] Protime [facility] Blood Venous blood specimen / Unknown us Historical Provider LAB BLOOD ORDERABLES Kassidy izquierdo Result [facility] [address] [place] [address] [phone] documented in this encounter Visit Diagnoses Diagnosis History of prosthetic heart valve documented in this encounter Additional Health Concerns Assessment Noted Time PHQ-9 Depression Total Score: 0 06/09/19 24 9:13 AM EST documented as of this encounter Care Teams Blood Tester Fowl Relationship Specialty Start Date End Date Nathalie Hsu MD [address] [place] [address] PCP - General Family Medicine 09/27/13 Shannan Barrow RN [address] [place] [address] Registered Nurse 02/29/24 Lisbeth Johnson [address] [place] [address] 3rd [place] [address] Gastroenterology 03/15/24 Tonya Poole Staff Respiratory TherapistJoint Maker Machine 01/19/24 Raman ([facility]) Registered Nurse 02/29/24 Marcos Verdin MD [place] [facility] [address] [place] [address] Cardiology 03/10/24 Omid Vincent Psychiatry 03/15/24 documented as of this encounter
--- OUTSIDE RECORDS SUMMARY | 2024-04-28 16:07 | XMS_ITS | Encounter Summary ---
Author Organization [employer] Address [address] [facility] [address] 7t [place] [address] Care Team Providers Care Client Evaluator Name Role Phone Nathalie Hsu MD Primary Care Provider [phone]- [phone] Shannan Barrow RN Unavailable [phone] AlexLisbeth Unavailable Reason for Visit * Reason Onset Date Comments NTTS 03/30/2024 Encounter Details Date Type Department Care Team (Late st Contact Info) Description 03/30/2024 Telephone [facility] MEDICINE [address] [place], [place] [phone] Shannan Barrow, RN [address] [place] [address] NTTS Social History Tobacco Use Types Packs/Day Years [...] Encounter - Shannan Barrow RN - 03/30/2024 2:53 PM EST Sherin VALE called NTTS 03/28/24 with INR of 3.1. Ewas advised by triage nurse to hole coumadin Tu/ 2.5mg W/ recheck Th. Pt dosed by this RN earlier today. No further action needed at this time. documented in this encounter Plan of Treatment Not on file documented as of this encounter Visit Diagnoses Not on filedocumented in this encounter Additional Health Concerns Assessment Noted Time PHQ-9 Depression Total Score: 0 06/09/19 24 9:13 AM EST documented as of this encounter Care Teams Client Evaluator Relationship Specialty Start Date End Date Nathalie Hsu MD [address] [place] [address] PCP - General Family Medicine 6/25/14 Shannan Barrow, RN [address] [place] [address] Registered Nurse 02/29/24 Lisbeth Johnson [address] [facility] 3rd [place] [address] Gastroenterology 03/15/24 Tonya Poole Construction AdministratorDressmaker Or Tailor 01/19/24 Raman ([facility]) Registered Nurse 02/29/24 Marcos Verdin MD [place] [facility] [address] [place] [address] Cardiology 03/10/24 Omid [facility] Psychiatry 03/15/24 documented as of this encounter
--- OUTSIDE RECORDS SUMMARY | 2024-04-28 16:07 | XMS_ITS | Encounter Summary ---
Author Organization [employer] Address [address] 7t [place] [address] Care Team Providers Care Heel Pricker Name Role Phone Nathalie Hsu MD Primary Care Provider [phone]- [phone] Shannan Barrow RN Unavailable [phone] Lisbeth Johnson Unavailable Reason for Visit * Reason Comments Med Refill Encounter Details Date Type Department Care Team (Late st Contact Info) Description 03/30/2024 Refill [facility] MEDICINE [address] [place], [place] [phone] Nathalie Hsu MD [address] [place], [place] [phone] History of alcohol abuse; Hypomagnesemia; Mild intermittent asthma, unspecified whether complicated Social History Tobacco Use Types Packs/Day Years [...] AM EDT documented as of this encounter Plan of Treatment Not on file documented as of this encounter Visit Diagnoses Diagnosis History of alcohol abuse Nondependent alcohol abuse, in remission Hypomagnesemia Disorders of magnesium metabolism Mild intermittent asthma, unspecified whether complicated documented in this encounter Additional Health Concerns Assessment Noted Time PHQ-9 Depression Total Score: 0 06/09/19 24 9:13 AM EST documented as of this encounter Care Teams Heel Pricker Relationship Specialty Start Date End Date Nathalie Hsu MD [address] [place] [address] PCP - General Family Medicine 09/27/13 Shannan Barrow, RN [address] [place] [address] Registered Nurse 02/29/24 Lisbeth Johnson [address] [place] [address] 3[address] [place] [address] Gastroenterology 03/15/24 Tonya Poole Tool Room Lathe OperatorFinancial Analyst 01/19/24 Raman ([facility]) Registered Nurse 02/29/24 MD [place] [facility] [address] [place] [address] Cardiology 03/10/24 Omid Vincent Psychiatry 03/15/24 documented as of this encounter
--- OUTSIDE RECORDS SUMMARY | 2024-04-28 16:07 | XMS_ITS | Encounter Summary ---
Author Organization [employer] Address [address] [facility] [facility] [address] 7t [place] [address] Care Team Providers Care Sales Representative Gas Service Name Role Phone Nathalie Hsu MD Primary Care Provider [phone] Shannan Barrow RN Unavailable [phone] Lisbeth Johnson Unavailable Reason for Visit * Reason Onset Date Comments Anticoagulation 04/18/2024 Encounter Details Date Type Department Care Team (Late st Contact Info) Description 04/18/2024 Telephone [facility] MEDICINE [address] [place], [place] [phone] Nathalie Hsu MD [address] [place], [place] [phone] Anticoagulation Social History Tobacco Use Types Packs/Day [...] Telephone Encounter - Shannan Barrow RN - 04/18/2024 2:45 PM EST S: Pt is due for PT/INR today due to hx of DVT's. Pt's target INR is 2.5-3.5. This RN spoke with KAVIN Duff who denies any new medications or changes in diet. Pt has been compliant with INR draws. O: INR today is: 2.4. Pt current dose is 5mg / / Benoit/ 2.5mg the rest of the week. A: Hx of DVT Risk for blood clot due to sub therapeutic INR Hx of afib Hx of prosthetic heart valve P: INR increased from 2.1 to 2.4 in the past week on current dose. Pt is to continue same dose and and repeat INR 04/25/24. VNA aware of dosing and draw date. Shannan Barrow RN * Telephone Encounter - Theresa Stover RN - 04/18/2024 2:29 PM EST Incoming call to the Critical Result line 04/18/24 at 2:29 PM Name of Caller/Facility: Sherin KHAI Martine Kelly Callback number: [phone] Reason for Call: INR 2.4 today Message to be forwarded to Nathalie Hsu MD and team nurses for follow up. documented in this encounter Plan of Treatment Not on file documented as of this encounter Procedures Procedure Name Priority Date/Time Associated Diagnosis Comments PROTHROMBIN TIME-INR Routine 04/18/2024 documented in this encounter Results * (ABNORMAL) Prothrombin Time-INR (04/18/2024) INR 2.40(L) 2.50 - 3.50 [facility] Protime [facility] Blood Venous blood specimen / Unknown Nathalie Hsu MD LAB BLOOD ORDERABLES Final Result [facility] documented in this encounter Visit Diagnoses Diagnosis History of prosthetic heart valve documented in this encounter Additional Health Concerns Assessment Noted Time PHQ-9 Depression Total Score: 0 06/09/19 24 9:13 AM EST documented as of this encounter Care Teams Sales Representative Gas Service Relationship Specialty Start Date End Date Nathalie Hsu MD [address] [place] [address] PCP - General Family Medicine 09/27/13 Shannan Barrow, KHAI [address] [place], [place] [phone] Registered Nurse 02/29/24 Lisbeth Johnson [address] [place] [address] Drive 3rd [place] [address] Gastroenterology 03/15/24 Tonya Poole GynecologistGarment Presser 01/19/24 Raman ([facility]) Registered Nurse 02/29/24 Marcos Verdin MD [place] [facility] [address] [place] [address] Cardiology 03/10/24 Omid Vincent Psychiatry 03/15/24 documented as of this encounter
--- OUTSIDE RECORDS SUMMARY | 2024-04-28 16:07 | XMS_ITS | Encounter Summary ---
Author Organization [employer] Address [address] [facility] [address] 7t [place] [address] Care Team Providers Care Adobe Developer Name Role Phone Nathalie Hsu MD Primary Care Provider [phone]- [phone] Shannan Barrow RN Unavailable [phone] Lisbeth Johnson Unavailable Reason for Visit * Reason Comments Med Refill Encounter Details Date Type Department Care Team (Late st Contact Info) Description 04/09/2024 Refill [facility] MEDICINE [address] [place], [place] [phone] Nathalie Hsu MD [address] [place], [place] [phone] Primary insomnia Social History Tobacco Use Types Packs/Day Years [...] as of this encounter Visit Diagnoses Diagnosis Primary insomnia Persistent disorder of initiating or maintaining sleep documented in this encounter Additional Health Concerns Assessment Noted Time PHQ-9 Depression Total Score: 0 06/09/19 24 9:13 AM EST documented as of this encounter Care Teams Adobe Developer Relationship Specialty Start Date End Date Nathalie Hsu MD [address] [place] [address] PCP - General Family Medicine 09/27/13 Shannan Barrow, KHAI [address] [place] [address] Registered Nurse 02/29/24 Lisbeth Johnson [address] [place] [address] Drive 3rd [place] [address] Gastroenterology 03/15/24 Tonya Poole Quality Control Systems ManagerSwimming Pool Cleaner 01/19/24 Raman ([facility]) Registered Nurse 02/29/24 Marcos Verdin MD [place] [facility] [address] [place] [address] Cardiology 03/10/24 Omid Vincent Psychiatry 03/15/24 documented as of this encounter
--- OUTSIDE RECORDS SUMMARY | 2024-04-28 16:07 | XMS_ITS | Encounter Summary ---
Author Organization [employer] Address [address] [facility] [address] 7t [place] [address] Care Team Providers Care Embroidery Specialist Name Role Phone Nathalie Hsu MD Primary Care Provider [phone] Shannan Barrow RN Unavailable [phone] Lisbeth Johnson Unavailable Encounter Details Date Type Department Care Team (Late st Contact Info) Description 03/30/[address] [facility] MEDICINE [address] [place], [place] [phone] Nathalie Hsu MD [address] [place], [place] [phone] Social History Tobacco Use Types Packs/Day Years [...] Encounter - Shannan Barrow RN - 03/30/2024 1:26 PM EST Addressed in other encounter * Telephone Encounter - Laverne Poole MD - 03/30/2024 9:01 AM EST Can you please call and clarify with patient the concern? Message is confusing. Thanks! * Telephone Encounter - Tracee Aleman LPN - 03/30/2024 8:38 AM EST Two messages left on Critical line 03/28/24 in regards to patient INR. Message 1 received at 1:15pm and Message 2 received at 2:28pm after [facility] closing at 1PM. Messages received upon opening this morning and Sherin RIDLEY S called directly at [phone]. Sherin reports that she called main line when she was aware that [facility] was closed. She spoke to someone electronic sales and service technician but does not know the name of the provider at this time. She received orders to hold warfarin dose 03/28/24 resume on Wednesday03/29/24 2.5mg warfarin and recheck today 03/30/24. Sherin will call today after INR is obtained. INR on 03/28/24 reported as 3.1 Above forwarded to covering for PCP and Team now. documented in this encounter Plan of Treatment Not on file documented as of this encounter Visit Diagnoses Not on filedocumented in this encounter Additional Health Concerns Assessment Noted Time PHQ-9 Depression Total Score: 0 06/09/19 9:13 AM EST documented as of this encounter Care Teams Embroidery Specialist Relationship Specialty Start Date End Date Nathalie Hsu MD [address] [place] [address] PCP - General Family Medicine 09/27/13 Shannan Barrow, KHAI [address] [place] [address] Registered Nurse 02/29/24 Lisbeth Johnson [address] [place] [address] 3rd [place] [address] Gastroenterology 03/15/24 Tonya Poole Grinding Room SupervisorCommunications Media Professor 01/19/24 Raman ([facility]) Registered Nurse 02/29/24 Marcos Verdin MD [place] [facility] [address] [place] [address] Cardiology 03/10/24 Omid Vincent Psychiatry 03/15/24 documented as of this encounter
--- OUTSIDE RECORDS SUMMARY | 2024-04-28 16:07 | XMS_ITS | Encounter Summary ---
Author Organization [employer] Address [address] [facility] [address] 7t [place] [address] Care Team Providers Care Field Liability Generalist Name Role Phone Nathalie Hsu MD Primary Care Provider [phone]- [phone] Shannan Barrow RN Unavailable [phone] Lisbeth Johnson Unavailable Reason for Visit * Reason Onset Date Comments Anticoagulation 04/25/2024 Encounter Details Date Type Department Care Team (Late st Contact Info) Description 04/25/2024 Telephone [facility] MEDICINE 230 [place], [place] [phone] Nathalie Hsu MD [address] [place], [place] [phone] Anticoagulation Social History Tobacco Use Types Packs/Day [...] Telephone Encounter - Shannan Barrow RN - 04/25/2024 4:11 PM EST S: Pt is due for PT/INR today due to hx of DVT's. Pt's target INR is 2.5-3.5. This RN spoke with KAVIN Duff who denies any new medications or changes in diet. Pt has been compliant with INR draws. Shereports he is doing well, saw liver specialist who told him his liver looks better. Pt yold VNA that he is saving so much money not drinking. O: INR today is: 2.1. Pt current dose is 5mg / Th/ Benoit/ 2.5mg the rest of the week. A: Hx of DVT Risk for blood clot due to sub therapeutic INR Hx of afib Hx of prosthetic heart valve P: Pt is to take 2.5mg W, F, Sa/ 5mg the rest of the week and repeat INR 05/02/24. VNA aware of dosing and draw date. Shannan Barrow RN * Telephone Encounter - Theresa Stover RN - 04/25/2024 3:10 PM EST Incoming call to the Critical Result line 04/25/24 at 3:10 PM Name of Caller/Facility:Sheirn VALE Callback number: [phone] Reason for Call: INR of 2.1 drawn today 04/25/24 Message to be forwarded to Nathalie Hsu MD and team nurses for follow up. documented in this encounter Plan of Treatment Not on file documented as of this encounter Procedures Procedure Name Priority Date/Time Associated Diagnosis Comments PROTHROMBIN TIME-INR Routine 04/25/2024 documented in this encounter Results * (ABNORMAL) Prothrombin Time-INR (04/25/2024) INR 2.10(L) 2.50 - 3.50 [facility] Protime [facility] Blood Venous blood specimen / Unknown us Nathalie Hsu MD LAB BLOOD ORDERABLES Final Result [facility] [address] [place] [address] [phone] documented in this encounter Visit Diagnoses Diagnosis History of prosthetic heart valve documented in this encounter Additional Health Concerns Assessment Noted Time PHQ-9 Depression Total Score: 0 06/09/19 24 9:13 AM EST documented as of this encounter Care Teams Field Liability Generalist Relationship Specialty Start Date End Date Nathalie Hsu MD [address] [place] [address] PCP - General Family Medicine 09/27/13 Shannan Barrow RN [address] [place], [place] [phone] Registered Nurse 02/29/24 Alex Lisbeth [address] 3rd [place] [address] Gastroenterology 03/15/24 Tonya Poole Tieing Machine OperatorJet Dyeing Machine Operator 01/19/24 Raman ([facility]) Registered Nurse 02/29/24 MD [place] [facility] [address] [place] [address] Cardiology 03/10/24 Omid Vincent Psychiatry 03/15/24 documented as of this encounter
--- OUTSIDE RECORDS SUMMARY | 2024-04-28 16:08 | XMS_ITS | Encounter Summary ---
Author Organization [employer] Address [address] [facility] [address] 7t [place] [address] Care Team Providers Care Remote Sensing Scientist Name Role Phone Nathalie Hsu MD Primary Care Provider [phone] Shannan Barrow RN Unavailable [phone] Lisbeth Johnson Unavailable Encounter Details Date Type Department Care Team (Late st Contact Info) Description 05/12/2023 Orders Only [facility] MEDICINE 230 [place], [place] [phone] Nathalie Hsu MD [address] [place], [place] [phone] Social History Tobacco Use Types Packs/Day Years Used Date Smoking Tobacco: Every Day Cigarettes Passive Smoke Exposure: Current Smokeless Tobacco: Never Alcohol Use Standard Drinks/Week Comments Yes 0 (1 standard drink = 0.6 oz pur e alcohol) Depression Answer Date Recorded Patient Health Questionnaire-9 Score 6 05/08/2022 Housing Stability Answer Date Recorded What is your housing situation today? I have memo camara 01/18/[address] you li ve. Do you have problems with any of the following? None of the above 01/18/2023 Food Insecurity Answer Date Recorded Within the past 12 months, y ou worried that your food would run out before you got money to buy more: Never True 01/18/2023 Within the past 12 months,th e food you bought just didn't last and you didn't have enough money to get more: Never True Transportation Answer Date Recorded In the past 12 months, has l ack of transportation kept you from medical appts, meetings, work or from getting things needed for daily living? No 01/18/2023 Utilities Answer Date Recorded In the past 12 months, has t he electric, gas, 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 threatened to shut off services in your home? No 01/18/2023 Depression Answer Date Recorded Patient Health Questionnaire-2 Score 2 05/08/2022 Sex and Gender Information Value Date Recorded [...] Assessment Noted Time PHQ-9 Depression Total Score: 6 05/08/19 23 10:33 AM EST documented as of this encounter Care Teams Remote Sensing Scientist Relationship Specialty Start Date End Date Nathalie Hsu MD [address] [place] [address] PCP - General Family Medicine 09/27/13 Shannan Barrow, KHAI [address] [place] [address] Registered Nurse 02/29/24 Lisbeth Johnson [address] [place] [address] 3rd [place] [address] Gastroenterology 03/15/24 Tonya Poole Sole SplitterBlackjack Dealer 01/19/24 Raman (A [facility]) Registered Nurse 02/29/24 Marcos Verdin MD [place] [facility] [address] [place] [address] Cardiology 03/10/24 Omid Vincent Psychiatry 03/15/24 documented as of this encounter
--- OUTSIDE RECORDS SUMMARY | 2024-04-28 16:08 | XMS_ITS | Encounter Summary ---
Author Organization [email or web address] Address [address] 7t [place] [address] Care Team Providers Care Flatwork Catcher Name Role Phone Nathalie Hsu MD Primary Care Provider [phone] Shannan Barrow RN Unavailable [phone] Lisbeth Johnson Unavailable Reason for Visit * Reason Onset Date Comments Hospital Follow-up 03/07/2024 Medication Question 03/07/2024 Encounter Details Date Type Department Care Team (Late st Contact Info) Description 03/07/2024 Telephone [facility] 230 [place], [place] [phone] Nathalie Hsu MD [address] [place], [place] [phone] Hospital Follow-up; Medication Question Social History Tobacco Use Types Packs/Day Years [...] Telephone Encounter - Shannan Barrow RN - 03/08/2024 10:09 AM EST Telephone call placed to ICP number below. Male answered stating wrong number and he doesn't speak frisian (was not the pt). Telephone call placed to pt as PCP had a cancellation. Offered to cancel his other appts and book HDF for this Wednesday with PCP. Pt agreeable. Pt reports really wanting to talk to PCP because I have Hepatitis B . Informed that I don't see any record of that in discharge paperwork but that he can certainly discuss it on Wednesday with PCP. Also upset because Ambien was D/Cd at the hospital and now hecan't sleep. Reports melatonin not helping. Reports Omid Boykin psychiatrist is refusing to give it to him because of the hospital orders and is requesting we call them and tell them they can prescribe it. Informed that I would notify PCP of his concern in case she has any input prior to Wednesday but for now try to practice good sleep hygiene (no electronics before bed, dark quiet room, etc) and it may help him fall asleep easier. * Telephone Encounter - Juventino Rohith - 03/07/2024 2:00 PM EST Tc from [facility] with [facility] Software Design Engineer requesting a HDF appt. Pt is concerned about medication melatonin 5 MG tablet he still has trouble sleeping and doesn't want to stop taking. Hospital: [facility] Date of admission: 02/11 Discharge date: 03/01 Diagnosed: Liver Issues Contact pt to schedule at [phone] *Send message to [facility] Care Coordinators documented in this encounter Plan of Treatment Not on file documented as of this encounter Visit Diagnoses Not on filedocumented in this encounter Additional Health Concerns Assessment Noted Time PHQ-9 Depression Total Score: 0 06/09/19 9:13 AM EST documented as of this encounter Care Teams Flatwork Catcher Relationship Specialty Start Date End Date Nathalie Hsu MD [address] [place] [address] PCP - General Family Medicine 09/27/13 Shannan Barrow RN [address] [place] [address] Registered Nurse 02/29/24 Lisbeth Johnson [address] [place] [address] Drive 3rd [place] [address] Gastroenterology 03/15/24 Tonya Poole Brass MolderOrdnance Equipment Worker 01/19/24 Raman (A [facility]) Registered Nurse 02/29/24 Marcos Verdin MD [place] [facility] [address] [place] [address] Cardiology 03/10/24 Omid Vincent Psychiatry 03/15/24 documented as of this encounter
--- OUTSIDE RECORDS SUMMARY | 2024-04-28 16:08 | XMS_ITS | Clinical Summary ---
Author Organization [employer] Address [address] [facility] [address] [place] [address] Care Team Providers Care Hospitality Ambassador Name Role Phone Nathalie Hsu MD Primary Care Provider [phone] Shannan Barrow RN Unavailable [phone] Lisbeth Johnson Unavailable Allergies Active Allergy Reactions Criticality Noted Date Comments Zolpidem 06/09/2023 Unintentional overdose on zolpidem on multiple occasions Lorazepam High 09/28/2022 Other reaction(s): OPPOSITE EFFECT PSYCOTIC EFECTS Medications folic acid (Folvite) 1 MG tabletIndication s:History of alcohol abuse TAKE 1 TABLET BY MOUTH EVERY MORNING 90 tablet 3 12/08/19 24 Active thiamine (Vitamin B-1) 100 MG tabletIndication s:History of alcohol abuse TAKE 1 TABLET BY MOUTH EVERY MORNING 90 tablet 3 12/08/19 24 Active albuterol (Ventolin HFA) 108 (90 Base) MCG/ACT inhalerIndicatio ns:Mild intermittent asthma, unspecified whether complicated INHALE 2 PUFFS BY MOUTH EVERY 4 TO 6 HOURS NEEDED 18 g 3 12/27/19 24 Active warfarin (Coumadin) 5 MG tabletIndication s:History of prosthetic heart valve TAKE 1 TO 2 TABLETS BY MOUTH EVERY DAY DIRECTED BY COUMADIN CLINIC 60 tablet 2 03/06/20 24 Active furosemide (Lasix) 20 MG tabletIndication s:Hypertension, unspecified type Take 1 tablet (20 mg) by mouth Once per day. 90 tablet 3 03/10/20 24 Active metoprolol succinate XL (Toprol-XL) 25 MG 24 hr tabletIndication s:Hypertension, unspecified type Take 1 tablet (25 mg) by mouth Once per day. 90 tablet 3 03/10/20 24 Active spironolactone (Aldactone) 25 MG tabletIndication s:Hypertension, unspecified type Take 1 tablet (25 mg) by mouth Once per day. 90 tablet 3 03/10/20 24 Active gabapentin (Neurontin) 100 MG capsuleIndicatio ns:Pain Take 1 capsule (100 mg) by mouth 3 times daily. 90 capsule 3 03/10/20 24 Active lactulose (Chronulac) 10 GM/15ML solutionIndicati ons:Alcoholic liver disease (CMS/HCC) Take 30 mL (20 g) by mouth 3 times daily. 237 mL 3 03/10/20 24 Active lidocaine (Lidoderm) 5 % patchIndications :Pain Remove & discard patch within 12 hours or as directed by MD. 30 patch 5 03/10/20 24 Active pantoprazole (ProtoNix) 40 MG EC tabletIndication s:Gastroesophage al reflux disease without esophagitis TAKE 1 TABLET BY MOUTH TWICE DAILY IN THE MORNING AND IN THE EVENING 180 tablet 1 03/21/20 24 Active Ferrous Sulfate Dried ER 143 (45 Fe) MG tablet controlled-relea seIndications:Hi story of GI bleed Take 45 mg by mouth. 02/29/20 24 Active metoprolol succinate XL (Toprol-XL) 25 MG 24 hr tabletIndication s:Paroxysmal atrial fibrillation (CMS/HCC) Take 25 mg by mouth. 02/29/20 24 Active Farxiga 10 MGIndications:Ca rdiomyopathy, unspecified type (CMS/HCC) Take 10 mg by mouth in the morning. 03/10/20 24 Active busPIRone (Buspar) 10 MG tabletIndication s:Depressive disorder Take by mouth [address] Vincent Active hydrOXYzine pamoate (Vistaril) 50 MG capsuleIndicatio ns:Primary insomnia Take by mouth. Dr. Vincent Active melatonin 5 MG tabletIndication s:Primary insomnia TAKE 2 TABLETS BY MOUTH EVERY DAY AT BEDTIME NEEDED FOR SLEEP 60 tablet 3 04/11/19 25 Active ferrous sulfate 325 (65 Fe) MG EC tabletIndication s:Anemia, unspecified type TAKE 1 TABLET BY MOUTH EVERY DAY DO NOT BREAK, CRUSH, DISSOLVE OR CHEW 90 tablet 04/11/19 25 Active budesonide-formo terol (Symbicort) 160-4.5 MCG/ACT inhalerIndicatio ns:Mild intermittent asthma without complication INHALE 2 PUFFS BY MOUTH TWICE DAILY IN THE MORNING AND AT BEDTIME RINSE MOUTH AFTER USING. DO NOT SWALLOW 10.2 g 2 04/13/19 25 Active melatonin 5 MG tabletIndication s:Primary insomnia TAKE 2 TABLETS BY MOUTH EVERY DAY AT BEDTIME NEEDED FOR SLEEP 60 tablet 3 12/13/19 24 025 Discontinued ferrous sulfate (Fe Tabs) 325 (65 Fe) MG EC tabletIndication s:Anemia, unspecified type Take one tab po every day. Do not crush, chew, or split. 30 tablet 2 01/19/20 24 025 Discontinued budesonide-formo terol (Symbicort) 160-4.5 MCG/ACT inhalerIndicatio ns:Mild intermittent asthma without complication INHALE 2 PUFFS BY MOUTH TWICE DAILY IN THE MORNING AND AT BEDTIME RINSE MOUTH AFTER USING. DO NOT SWALLOW 10.2 g 2 01/31/20 24 025 Discontinued budesonide-formo terol (Symbicort) 160-4.5 MCG/ACT inhalerIndicatio ns:Mild intermittent asthma without complication Inhale. 08/08/19 24 025 Discontinued Active Problems Problem Noted Date Diagnosed Date Acute renal failure 01/19/2024 Overview (03/10/2024): Hx of EDGAR Assessment & Plan (03/10/2024 9:53 PM EST): Hx of EDGAR Assessment & Plan (01/19/2024 9:21 AM EDT): Hx of EDGAR -ordered labs 01/19/24 Colon cancer screening 12/27/2023 Overview (01/05/2024): -Cologuard negative 01/05/24 Assessment & Plan (12/27/2023 11:06 AM EDT): Has ColoGuard at home 12/27/23 Closed fracture of multiple ribs 11/10/2023 Overview (12/15/2023): -pt sustained closed fracture of multiple ribs 11/06/03 after fall in the setting of EtOH use -he then fell again 12/10/23 and INR was 13, transferred to [facility] Closed fracture of transvers e process of lumbar vertebra with routine healing 11/10/2023 Overview (11/10/2023): -pt sustained closed fracture of multiple ribs and lumbar vertebrae 11/06/03 after fall in the setting of EtOH use Overweight 10/22/2023 Overview (10/22/2023): Discussed weight, diet, exercise with patient in relation to health conditions. Used motivational interviewing to illicit change talk and established initial goals with patient. Assessment & Plan (10/22/2023 1:17 PM EDT): Discussed weight, diet, exercise with patient in relation to health conditions. Used motivational interviewing to illicit change talk and established initial goals with patient. Alcoholic liver disease 10/20/2023 Overview (04/27/2024): Lab Results Component Value Date AST 35 04/14/2024 AST 97 (H) 03/10/2024 AST 21 08/10/2022 ALT 28 04/14/2024 ALT 84 (H) 03/10/2024 ALT 20 08/10/2022 ALT 22 08/22/2020 TOTALBILIRUB 1.6 (H) 04/14/2024 TOTALBILIRUB 7.1 (H) 03/10/2024 INR 2.7 (H) 04/14/2024 PLT 271 04/14/2024 CREATININE 1.16 04/14/2024 CREATININE 1.21 10/21/2021 CREATININE 1.21 10/21/2021 NA 138 04/14/2024 MELD 3.0: 19 at 04/14/2024 1:41 PM MELD-Na: 21 at 04/14/2024 1:41 PM Calculated from: Serum Creatinine: 1.16 mg/dL at 04/14/2024 1:41 PM Serum Sodium: 138 mmol/L (Using max of 137 mmol/L) at 04/14/2024 1:41 PM Total Bilirubin: 1.6 mg/dL at 04/14/2024 1:41 PM Serum Albumin: 3.8 g/dL (Using max of 3.5 g/dL) at 04/14/2024 1:41 PM INR(ratio): 2.7 at 04/14/2024 1:41 PM Age at listing (hypothetical): 64 years Sex: Male at 04/14/2024 1:41 PM Computed FIB-4 Calculation unavailable. One or more values for this score either were not found within the given timeframe or did not fit some other criterion. - Imaging: CT abd and pelv 09/15/23 showed liver is normal in size, shape, and attenuation. No focal hepatic lesion or biliary ductal dilatation is present. The gallbladder is unremarkable with no evidence of radiopaque gallstones, gallbladder wall thickening, or obvious pericholecystic inflammatory changes. - Compensated: yes - EGD: none -Dieretics: lasix 20mg daily, spironolactone 25mg daily -MELD score: 24 calculated 03/2024,(estimated 3 month mortality 19.6%) -Fib 4: 5.75 calculated 03/13/24 -Hepatocellular carcinoma screening: -Varices screening: -Hx encephalopathy: yes -Hx SBP: No -Rifaximin 550 BID tarted 04/2024 -Low sodium diet discussed. Avoid hepatotoxic agents. -Followed by: Dr. Alex REZA 03/15/24 at [facility]: MELD 22 on most recent labs. INR high due to need for anticoagulation for mechanical valve. Bilirubin has halved within 2 weeks which is excellent news. Again strongly reviewed strict abstinence from etOH which hte pt has maintained so far. However, he unfortunately continues to smoke. Strongly counseled re that as well and will be referred to comprehensive care center. In terms of sarcopenia frailty, encouraged daily exercise even if starting with just 10 mins a day. Will nudge on nutritition referral. Plan: - Repeat MELD labs in 4 weeks - US Abd - Nutrition and [facility] referrals - Pt to bring his meds at next visit - Will also review indication for bidirectional endoscopy at that time - Extensively couseled on zero etOH and tobacco use -US/US abdomen complete 04/19/24 IMPRESSION: Mild diffusely increased hepatic parenchymal echogenicity, suggestive of mild steatosis. No focal suspicious lesion. No biliary abnormality. Mild adenomyomatosis of the gallbladder. Gallbladder otherwise normal. 0.8 cm simple cyst right kidney. Note with Dr. Johnson 04/26/24 Pt with complex medical course in [facility] [place] admission due to acute on chronic liver failure. MELD Na on the day of discharge: 27. Reviewed evolution and natural progression of cirrhosis with the patient. Extensively reviewed that next 28 days will be of paramount importance and he will be monitored closely for improvement in his liver function. If the liver function does not turn around may have to start discussion re palliative care. He is suboptimally controlled so will add rifaximin and assess response. Pt demonstrates sobriety from etOH for which he was congratulated and encouraged to cont the same. Frailty and sarcopenia is significant. We discussed the catabolic nature of liver disease. Reviewed lifestyle and diet changes. Educated to avoid prolonged sitting/laying down and to incorporate mild intensity activity to defend muscle mass. Add protein shakes. He will also be referred to RD. Plan: - CBC, CMP, INR today and again in 2 weeks - He was advised that will receive a call if actionable findings jim if worsening anemia req transfusion - Rifaximin 550 BID - Add protein shakes 1-2 times a day. Avoid prolonged fasting, add a night time snack such as italian yogurt, PB etc - [employer] referral - CLose follow up in 2 weeks Assessment & Plan (03/13/2024 10:02 AM EST): Lab Results Component Value Date AST 97 (H) 03/10/2024 AST 26 01/19/2024 AST 21 08/10/2022 ALT 84 (H) 03/10/2024 ALT 171 (H) 01/19/2024 ALT 20 08/10/2022 ALT 22 08/22/2020 TOTALBILIRUB 7.1 (H) 03/10/2024 TOTALBILIRUB 0.4 01/19/2024 INR 2.5 (H) 03/10/2024 PLT 232 03/10/2024 CREATININE 1.01 03/10/2024 CREATININE 1.21 10/21/2021 CREATININE 1.21 10/21/2021 NA 138 03/10/2024 - Imaging: CT abd and pelv 09/15/23 showed liver is normal in size, shape, and attenuation. No focal hepatic lesion or biliary ductal dilatation is present. The gallbladder is unremarkable with no evidence of radiopaque gallstones, gallbladder wall thickening, or obvious pericholecystic inflammatory changes. - Compensated: yes - EGD: none -Dieretics: lasix 20mg daily, spironolactone 25mg daily -MELD score: 24 calculated 03/2024, estimated 3 month mortality 19.6%) -Fib 4: 5.75 calculated 03/13/24 -Hepatocellular carcinoma screening: -Varices screening: -Hx encephalopathy: yes -Hx SBP: No -Low sodium diet discussed. Avoid hepatotoxic agents. -Followed by: New appointment with GI 03/15/24 at [facility] Assessment & Plan (01/19/2024 9:14 AM EDT): CT abd and pelv 09/15/23 showed liver is normal in size, shape, and attenuation. No focal hepatic lesion or biliary ductal dilatation is present. The gallbladder is unremarkable with no evidence of radiopaque gallstones, gallbladder wall thickening, or obvious pericholecystic inflammatory changes. -ordered hepatic function panel 12/27/23 Lab Results Component Value Date AST 15 12/27/2023 AST 21 08/10/2022 ALT 13 12/27/2023 ALT 20 08/10/2022 ALP 71 12/27/2023 DIRECTBILIRU <0.2 12/27/2023 -rechecking hepatic function panel and BMP 01/19/24 Assessment & Plan (12/27/2023 11:05 AM EDT): CT abd and pelv 09/15/23 showed liver is normal in size, shape, and attenuation. No focal hepatic lesion or biliary ductal dilatation is present. The gallbladder is unremarkable with no evidence of radiopaque gallstones, gallbladder wall thickening, or obvious pericholecystic inflammatory changes. -ordered hepatic function panel 12/27/23 Fall 06/09/2023 Anticoagulated on Coumadin 06/09/2023 Overview (10/22/2023): For prosthetic valve. INR goal 2.5-3.5 -pt discharged from multiple clinics for non adherence and uncontrolled INRs. Now followed by PCP for INR -was on Lovenox which is not FDA approved but pt did not like it and wanted to go back on coumadin. Assessment & Plan (03/10/2024 9:54 PM EST): For prosthetic valve. INR goal 2.5-3.5 -pt discharged from multiple clinics for non adherence and uncontrolled INRs. Now followed by PCP for INR -was on Lovenox which is not FDA approved but pt did not like it and wanted to go back on coumadin. Assessment & Plan (12/27/2023 11:07 AM EDT): For prosthetic valve. INR goal 2.5-3.5 -pt discharged from multiple clinics for non adherence and uncontrolled INRs. Now followed by PCP for INR -was on Lovenox which is not FDA approved but pt did not like it and wanted to go back on coumadin. Assessment & Plan (10/22/2023 11:15 AM EDT): For prosthetic valve. INR goal 2.5-3.5 -pt discharged from multiple clinics for non adherence and uncontrolled INRs. Now followed by PCP for INR -was on Lovenox which is not FDA approved but pt did not like it and wanted to go back on coumadin. Assessment & Plan (06/09/2023 9:24 AM EST): -Coumadin changed to Lovenox since 05/2022 due to INR not at goal > 90 % of the time with INRS as high as 16 and 26 in setting of ETOH with intracranial bleed however pt did not tolerate injections and hematology recommended Coumadin as first line treatment. Pt was changed back to coumadin and has continued to be uncontrolled. - Continue close monitoring on Lovenox when he is subtherapeutic Lung nodule 04/02/2023 Overview (10/22/2023): CT of chest in hospital 04/01/23 IMPRESSION: Interval enlargement right middle lobe pulmonary nodule, now 5 mm. Slight enlargement left paratracheal lymph node. 3 month follow-up LDCT recommended. LDCT ordered 10/22/23 Assessment & Plan (10/22/2023 11:13 AM EDT): CT of chest in hospital 04/01/23 IMPRESSION: Interval enlargement right middle lobe pulmonary nodule, now 5 mm. Slight enlargement left paratracheal lymph node. 3 month follow-up LDCT recommended. LDCT ordered 10/22/23 Assessment & Plan (06/09/2023 9:44 AM EST): CT of chest in hospital 04/01/23 IMPRESSION: Interval enlargement right middle lobe pulmonary nodule, now 5 mm. Slight enlargement left paratracheal lymph node. 3 month follow-up LDCT recommended. Other specified health status 03/03/2023 Overview (01/13/2024): -next comprehensive annual evaluation due after 03/03/2024 -eye care facilitated by [facility] -dental home is [facility] -health care proxy on file 02/08/2015, filed into [employer] on 06/09/23 Assessment & Plan (03/10/2024 9:55 PM EST): -next comprehensive annual evaluation due after 03/03/2024 -eye care facilitated by [facility] -dental home is [facility] -health care proxy on file 02/08/2015, filed into [employer] on 06/09/23 Assessment & Plan (01/19/2024 9:20 AM EDT): -next comprehensive annual evaluation due after 03/03/2024 -eye care facilitated by [facility] -dental home is [facility] -health care proxy on file 02/08/2015, filed into [employer] on 06/09/23 Assessment & Plan (12/27/2023 11:02 AM EDT): -next comprehensive annual evaluation due after 03/03/2024 -eye care facilitated by [facility] -dental home is [facility] - Health care proxy on file 02/08/2015, filed into [employer] on 06/09/23 Assessment & Plan (10/22/2023 11:16 AM EDT): -next physical exam due after 03/03/2024 -eye care facilitated by [facility] -dental home is [facility] - Health care proxy on file 02/08/2015, filed into [facility] on 06/09/23 Assessment & Plan (03/03/2023 9:35 AM EST): -next physical exam due after 03/03/2024 -eye care facilitated by -dental home is History of GI bleed 03/03/2023 Overview (04/15/2023): -Hgb on admission 02/09/23 12.9. Baseline 11-13. Hemocult was positive. Pt now back on Plavix and Coumadin per cardiology. -check CBC and iron studies -Advise follow up with GI to complete outpatient scope with Dr. Lisbeth Johnson. We left a message with their office 03/03/23 Assessment & Plan (03/10/2024 9:53 PM EST): -Hgb on admission 02/09/23 12.9. Baseline 1113. Hemocult was positive. Pt now back on Plavix and Coumadin per cardiology. -check CBC and iron studies -Advise follow up with GI to complete outpatient scope with Dr. Lisbeth Johnson. We left a message with their office 03/03/23 Assessment & Plan (06/09/2023 9:44 AM EST): -Hgb on admission 02/09/23 12.9. Baseline 11-13. Hemocult was positive. Pt now back on Plavix and Coumadin per cardiology. -check CBC and iron studies -Advise follow up with GI to complete outpatient scope with Dr. Lisbeth Johnson. We left a message with their office 03/03/23 Assessment & Plan (03/03/2023 9:38 AM EST): -Hgb on admission 02/09/23 12.9. Baseline 11-13. Hemocult was positive. Pt now back on Plavix and Coumadin per cardiology. -check CBC and iron studies -Advise follow up with GI to complete outpatient scope with Dr. Lisbeth Johnson. We left a message with their office 03/03/23 Harrell's esophagus 12/24/2022 Chronic systolic CHF (congestive heart failure) 12/24/2022 Complete heart block 12/24/2022 Thrombocytopenia 12/24/2022 Generalized anxiety disorder 05/08/2022 Vitamin B 12 deficiency 05/07/2022 Overview (01/19/2024): -B12 normal 08/2020 without supplementation -rechecking Vit B level 01/19/24 Assessment & Plan (01/19/2024 9:21 AM EDT): -B12 normal 08/2020 without supplementation -rechecking Vit B level 01/19/24 Assessment & Plan (08/11/2022 7:35 AM EDT): -B12 normal 08/2020 without supplementation Assessment & Plan (05/07/2022 10:40 AM EST): B12 normal 08/2020 Anemia 05/07/2022 Overview (03/13/2024): -Colonoscopy 2011 (reports states normal screening, endoscopy 02/2015 (esophagitis). -cologuard negative 11/2023 Lab Results Component Value Date FERRITIN 72 01/19/2024 FERRITIN 40 06/09/2023 HGB 9.9 (L) 03/10/2024 HGB 9.3 (L) 01/19/2024 HGB 11.7 (L) 08/10/2022 HGB 12.3 (L) 08/22/2020 HEMATOCRIT 37.1 (L) 08/10/2022 HEMATOCRIT 37.8 (L) 08/22/2020 -will refer to GI and hematology -start iron 01/19/24 -ferritin may be elevated due to acute illness, awaiting B12 Assessment & Plan (03/10/2024 9:53 PM EST): Hx of EDGAR Assessment & Plan (01/19/2024 12:47 PM EDT): -Colonoscopy 2011 (reports states normal screening, endoscopy 02/2015 (esophagitis). -cologuard negative 11/2023 Lab Results Component Value Date FERRITIN 72 01/19/2024 FERRITIN 40 06/09/2023 HGB 9.3 (L) 01/19/2024 HGB 9.7 (L) 12/27/2023 HGB 11.7 (L) 08/10/2022 HGB 12.3 (L) 08/22/2020 HEMATOCRIT 37.1 (L) 08/10/2022 HEMATOCRIT 37.8 (L) 08/22/2020 -will refer to GI and hematology -start iron 01/19/24 -ferritin may be elevated due to acute illness, awaiting B12 Assessment & Plan (10/22/2023 11:15 AM EDT): -Colonoscopy 2011 (reports states normal screening, endoscopy 02/2015 (esophagitis). -Labs on August 2020 show hemoglobin of 13.1, ferritin 25 and b12 230. Lab Results Component Value Date FERRITIN 26 03/03/2023 HGB 9.1 (L) 05/17/2023 HGB 10.1 (L) 04/30/2023 HGB 11.7 (L) 08/10/2022 HGB 12.3 (L) 08/22/2020 HEMATOCRIT 37.1 (L) 08/10/2022 HEMATOCRIT 37.8 (L) 08/22/2020 Assessment & Plan (11/30/2022 8:47 PM EDT): Pt w hx of anemia -offered today to repeat labs to monitor today as well to follow hyponatremia but pt states has apt w PCP in 4 weeks and will have then all labs ,refuse labs for now Assessment & Plan (08/10/2022 11:01 AM EDT): -Colonoscopy 2011 (reports states normal screening, endoscopy 02/2015 (esophagitis). -Labs on August 2020 show hemoglobin of 13.1, ferritin 25 and b12 230. Assessment & Plan (05/07/2022 10:41 AM EST): -Colonoscopy 2011 (reports states normal screening, endoscopy 02/2015 (esophagitis). -Labs on August 2020 show hemoglobin of 13.1, ferritin 25 and b12 230. Primary insomnia 05/07/2022 Overview (03/10/2024): - Likely due to or at least exacerbated by EtOH use. Pt is on melatonin and gets trazodone 50 mg from outside provider. Advise avoid sedating medications due to EtOH use. He now has a therapist and psychiatrist. - He was getting Ambien from psychiatry and not taking correctly with unintentional overdose. Call placed to psychiatry office and left my cell phone number to coordinate medications, minimizing sedation 06/09/23. -pt greatest concern is inability to sleep. Will reach out to psychiatry for recomemndations Assessment & Plan (03/10/2024 9:52 PM EST): - Likely due to or at least exacerbated by EtOH use. Pt is on melatonin and gets trazodone 50 mg from outside provider. Advise avoid sedating medications due to EtOH use. He now has a therapist and psychiatrist. - He was getting Ambien from psychiatry and not taking correctly with unintentional overdose. Call placed to psychiatry office and left my cell phone number to coordinate medications, minimizing sedation 06/09/23. -pt greatest concern is inability to sleep. Will reach out to psychiatry for recomemndations Assessment & Plan (06/09/2023 9:45 AM EST): - Likely due to or at least exacerbated by EtOH use. Pt is on melatonin and gets trazodone 50 mg from outside provider. Advise avoid sedating medications due to EtOH use. He now has a therapist and psychiatrist. - He was getting Ambien from psychiatry and not taking correctly with unintentional overdose. Call placed to psychiatry office and left my cell phone number to coordinate medications, minimizing sedation 06/09/23 Assessment & Plan (05/07/2022 10:41 AM EST): Likely due to or at least exacerbated by EtOH use. Pt is on melatonin and gets trazodone 50 mg from outside provider. Advise avoid sedating medications due to EtOH use. He now has a therapist and psychiatrist. Coronary artery disease 05/07/2022 Overview (03/10/2024): -Cardiac catheretization 05/2020 revealed severe lesion in the mid LAD. He underwent orbital arthrectomy with CSI and had a stent placed. -Echo 05/2020 showed an EF of 30-35% -Continue Plavix and coumadin x 1 yr. After 06/2021, d/c Plavix, restart aspirin and continue coumadin. -Continue atorvastatin 20mg daily (dose limited by transaminitis in setting of heavy EtOH use) -Continue metoprolol ER 50mg, and amlodipine 2.5mg daily -lisinopril discontinued and entresto startd by cardiology 05/2022 -F/u with director physical therapy ANA Smith -furosemide 40 mg started during hospitalization 05/17/23, decreased to 20mg daily 02/2024 hospitalization -amlodipine 5mg discontinued during hospitalization 06/2023 -seen by Dr. Marcos Verdin MD 03/10/24 -continue metoprolol 100 mg daily per note, this was decreased to 25mg daily in hospital. Will contact cardiology to see correct dose. -Farxiga started 03/09/24 Assessment & Plan (03/10/2024 9:52 PM EST): -Cardiac catheretization 05/2020 revealed severe lesion in the mid LAD. He underwent orbital arthrectomy with CSI and had a stent placed. -Echo 05/2020 showed an EF of 30-35% -Continue Plavix and coumadin x 1 yr. After 06/2021, d/c Plavix, restart aspirin and continue coumadin. -Continue atorvastatin 20mg daily (dose limited by transaminitis in setting of heavy EtOH use) -Continue metoprolol ER 50mg, and amlodipine 2.5mg daily -lisinopril discontinued and entresto startd by cardiology 05/2022 -F/u with director physical therapy ANA Smith -furosemide 40 mg started during hospitalization 05/17/23, decreased to 20mg daily 02/2024 hospitalization -amlodipine 5mg discontinued during hospitalization 06/2023 -seen by Dr. Marcos Verdin MD 03/10/24 -continue metoprolol 100 mg daily per note, this was decreased to 25mg daily in hospital. Will contact cardiology to see correct dose. -Carringtonxiga started 03/09/24 Assessment & Plan (10/22/2023 11:14 AM EDT): -Cardiac catheretization 05/2020 revealed severe lesion in the mid LAD. He underwent orbital arthrectomy with CSI and had a stent placed. -Echo 05/2020 showed an EF of 30-35% -Continue Plavix and coumadin x 1 yr. After 06/2021, d/c Plavix, restart aspirin and continue coumadin. -Continue atorvastatin 20mg daily (dose limited by transaminitis in setting of heavy EtOH use) -Continue metoprolol ER 50mg, and amlodipine 2.5mg daily -lisinopril discontinued and entresto startd by cardiology 05/2022 -F/u with director physical therapy ANA Smith -Furosemide 40 mg started during hospitalization 05/17/23 -amlodipine 5mg discontinued during hospitalization 06/2023 Assessment & Plan (06/09/2023 9:54 AM EST): -Cardiac catheretization 05/2020 revealed severe lesion in the mid LAD. He underwent orbital arthrectomy with CSI and had a stent placed. -Echo 05/2020 showed an EF of 30-35% -Continue Plavix and coumadin x 1 yr. After 06/2021, d/c Plavix, restart aspirin and continue coumadin. -Continue atorvastatin 20mg daily (dose limited by transaminitis in setting of heavy EtOH use) -Continue metoprolol ER 50mg, and amlodipine 2.5mg daily -lisinopril discontinued and entresto startd by cardiology 05/2022 -F/u with director physical therapy ANA Smith -Furosemide 40 mg started during hospitalization 05/17/23 Assessment & Plan (08/11/2022 7:36 AM EDT): -Cardiac catheretization 05/2020 revealed severe lesion in the mid LAD. He underwent orbital arthrectomy with CSI and had a stent placed. -Echo 05/2020 showed an EF of 30-35% -Continue Plavix and coumadin x 1 yr. After 06/2021, d/c Plavix, restart aspirin and continue coumadin. -Continue atorvastatin 20mg daily (dose limited by transaminitis in setting of heavy EtOH use) -Continue metoprolol ER 50mg, and amlodipine 2.5mg daily -lisinopril discontinued and entresto startd by cardiology 05/2022 -F/u with director physical therapy ANA Smith Assessment & Plan (06/03/2022 11:12 AM EST): -Cardiac catheretization 05/2020 revealed severe lesion in the mid LAD. He underwent orbital arthrectomy with CSI and had a stent placed. -Echo 05/2020 showed an EF of 30-35% -Continue Plavix and coumadin x 1 yr. After 06/2021, d/c Plavix, restart aspirin and continue coumadin. However coumadin discontinued and now on Lovenox due to INR not at goal > 90% of the time -Continue atorvastatin 20mg daily (dose limited by transaminitis in setting of heavy EtOH use) -Continue metoprolol ER 50mg, and amlodipine 2.5mg daily -lisinopril discontinued and entresto startd by cardiology 05/2022 -F/u with director physical therapy ANA Smith Assessment & Plan (05/07/2022 10:43 AM EST): -Cardiac catheretization 05/2020 revealed severe lesion in the mid LAD. He underwent orbital arthrectomy with CSI and had a stent placed. -Echo 05/2020 showed an EF of 30-35% -Continue Plavix and coumadin x 1 yr. After 06/2021, d/c Plavix, restart aspirin and continue coumadin. -Continue atorvastatin 20mg daily (dose limited by transaminitis in setting of heavy EtOH use) -Continue metoprolol ER 50mg, lisinopril 10mg daily, and amlodipine 2.5mg daily -F/u with director physical therapy ANA Smith -He is overdue for follow up and was encouraged to call. Paroxysmal atrial fibrillation 05/07/2022 Overview (03/10/2024): Asymptomatic. Rate controlled -continue metprolol succinate -patient is on Coumadin Assessment & Plan (03/10/2024 9:53 PM EST): Asymptomatic. Rate controlled -continue metprolol succinate -patient is on Coumadin Assessment & Plan (01/19/2024 9:22 AM EDT): Asymptomatic. Rate controlled -continue metprolol succinate 50mg ER -patient is on Coumadin Assessment & Plan (10/22/2023 11:14 AM EDT): Asymptomatic. Rate controlled -continue metprolol succinate 50mg ER -patient is on Coumadin Assessment & Plan (06/09/2023 9:54 AM EST): Asymptomatic. Rate controlled -continue metprolol succinate 50mg ER -patient is on Coumadin Assessment & Plan (08/11/2022 7:38 AM EDT): Asymptomatic. Rate controlled -continue metprolol succinate 50mg ER Asymptomatic. Rate controlled -patient is on Coumadin with improved INRs. He has been changed to lovenox due to presence of mechanical valve and uncontrolled INRs but could not tolerate and hematology recommended coumadin as first line. His EtOH use is improved. Assessment & Plan (06/03/2022 11:08 AM EST): Asymptomatic. Rate controlled -continue metprolol succinate 50mg ER -patient is on Lovenox due to not controlled with coumadin and has mechanical valve Assessment & Plan (05/07/2022 10:44 AM EST): Asymptomatic. Rate controlled -continue metprolol succinate 50mg ER -patient can only be anticoagulated with Coumadin due to aortic valve replacement Gastroesophageal reflux disease 05/07/2022 Overview (05/08/2022): EGD with Dr. Martínez 09/2016 revealed evidence of Harrell's Esophagitis, no dysplasia. Continue ompprazole 40mg bid via GI. Last GI note is from 08/18/2019, recommending EDG after September 2019 for 3 year follow up of [place]. Assessment & Plan (10/22/2023 11:15 AM EDT): EGD with Dr. Martínez 09/2016 revealed evidence of Harrell's Esophagitis, no dysplasia. Continue ompprazole 40mg bid via GI. Last GI note is from 08/18/2019, recommending EDG after September 2019 for 3 year follow up of [place]. Assessment & Plan (06/09/2023 11:08 AM EST): EGD with Dr. Martínez 09/2016 revealed evidence of Harrell's Esophagitis, no dysplasia. Continue ompprazole 40mg bid via GI. Last GI note is from 08/18/2019, recommending EDG after September 2019 for 3 year follow up of [place]. Assessment & Plan (08/10/2022 11:02 AM EDT): EGD with Dr. Martínez 09/2016 revealed evidence of Harrell's Esophagitis, no dysplasia. Continue ompprazole 40mg bid via GI. Last GI note is from 08/18/2019, recommending EDG after September 2019 for 3 year follow up of [place]. Assessment & Plan (05/07/2022 10:45 AM EST): EGD with Dr. Martínez 09/2016 revealed evidence of Harrell's Esophagitis, no dysplasia. Continue ompprazole 40mg bid via GI. Last GI note is from 08/18/2019, recommending EDG after September 2019 for 3 year follow up of [facility]. Cardiomyopathy 04/01/2022 Overview (03/10/2024): -Likely secondary to CAD in setting of severe alcohol use disorder. -euvolemic on exam -EF 30-35% 05/2020 -has pacemaker and mechanical aortic valve -echo 11/23/2023: moderate concentric LVH, global hypokinesis of LV contractility, EF 40-45%, indeterminate, mild pulmonary HTN diastolic dysfuntion -seen by Dr. Marcos Verdin MD 03/10/24 Assessment & Plan (03/10/2024 9:52 PM EST): -Likely secondary to CAD in setting of severe alcohol use disorder. -euvolemic on exam -EF 30-35% 05/2020 -has pacemaker and mechanical aortic valve -echo 11/23/2023: moderate concentric LVH, global hypokinesis of LV contractility, EF 40-45%, indeterminate, mild pulmonary HTN diastolic dysfuntion -seen by Dr. Marcos Verdin MD 03/10/24 Assessment & Plan (06/09/2023 9:32 AM EST): -Likely secondary to CAD in setting of severe alcohol use disorder. -euvolemic on exam -EF 30-35% 05/2020 -has pacemaker Assessment & Plan (03/03/2023 9:34 AM EST): -Likely secondary to CAD in setting of severe alcohol use disorder. -euvolemic on exam -EF 30-35% 05/2020 -has pacemaker Assessment & Plan (11/30/2022 8:45 PM EDT): Pt to f w cards in 12/08/2022 -may need to consider increasing entresto Assessment & Plan (08/10/2022 11:02 AM EDT): -Likely secondary to CAD in setting of severe alcoholu use disorder. EF 30-35% 05/2020 Assessment & Plan (06/03/2022 11:10 AM EST): -Likely secondary to CAD in setting of severe alcoholu use disorder. EF 30-35% 05/2020 Assessment & Plan (05/07/2022 10:43 AM EST): Likely secondary to CAD in setting of severe alcoholu use disorder. EF 30-35% 05/2020 Chronic midline low back pain 04/01/2022 Overview (03/03/2023): PT continues to request narcotics. Not a candidate due to severe EtOH use. Avoid all sedating medications. Judicious use of acetaminophen. He has seen PT, pain management and tried lidocaine patches Assessment & Plan (10/22/2023 11:15 AM EDT): PT continues to request narcotics. Not a candidate due to severe EtOH use. Avoid all sedating medications. Judicious use of acetaminophen. He has seen PT, pain management and tried lidocaine patches Assessment & Plan (06/09/2023 9:33 AM EST): PT continues to request narcotics. Not a candidate due to severe EtOH use. Avoid all sedating medications. Judicious use of acetaminophen. He has seen PT, pain management and tried lidocaine patches Assessment & Plan (11/30/2022 8:42 PM EDT): Pt w chronic lumbar And right hip pain -referred today for lumbar and right hip XR to reeval -lidoderm patch and low dose tylenol prn -pt to f w PCP in 4 weeks Assessment & Plan (08/11/2022 7:30 AM EDT): -Pt continues to request narcotics. Not a candidate due to severe EtOH use. Avoid all sedating medications. Judicious use of acetaminophen. -He was seen by ortho for possible injection but they would require him to hold coumdin for 7 days. I advise against this and recommend discussing with cardiology. Assessment & Plan (06/03/2022 11:14 AM EST): PT continues to request narcotics. Not a candidate due to severe EtOH use. Avoid all sedating medications. Judicious use of acetaminophen. offered PT, acupuncture, and pain management. Pt agrees to pain management. He would like a first floor apt or apt with elevator due to severe back pain. I advised him to request this through medical records. Assessment & Plan (05/07/2022 10:45 AM EST): PT continues to request narcotics. Not a candidate due to severe EtOH use. Avoid all sedating medications. Judicious use of acetaminophen. offered PT, acupuncture, and pain management. Pt agrees to pain management. He would like a first floor apt or apt with elevator due to severe back pain. I advised him to request this through medical records. History of subarachnoid hemorrhage 04/01/2022 Overview (12/24/2022): -Hospitalized for subarachnoid hemorrhage 10/2021 at [facility] after fall in the setting of supratheraputic INR of 16 and heavy alcohol use. He was changed to lovenox but could not tolerate the injections. Back on coumadin with improved INRs. He is also on plavix. ER precautions discussed. Assessment & Plan (10/22/2023 11:16 AM EDT): -Hospitalized for subarachnoid hemorrhage 10/2021 at [facility] after fall in the setting of supratheraputic INR of 16 and heavy alcohol use. He was changed to lovenox but could not tolerate the injections. Back on coumadin with improved INRs. He is also on plavix. ER precautions discussed. Assessment & Plan (06/09/2023 9:36 AM EST): -Hospitalized for subarachnoid hemorrhage 10/2021 at [facility] after fall in the setting of supratheraputic INR of 16 and heavy alcohol use. He was changed to lovenox but could not tolerate the injections. Back on coumadin with improved INRs. He is also on plavix. ER precautions discussed. Assessment & Plan (08/11/2022 7:29 AM EDT): -Hospitalized for subarachnoid hemorrhage 10/2021 at [facility] after fall in the setting of supratheraputic INR of 16 and heavy alcohol use. He was changed to lovenox but could not tolerate the injections. Back on coumadin with improved INRs. He is also on plavix. ER precautions discussed. Assessment & Plan (06/03/2022 11:07 AM EST): -Hospitalized for subarachnoid hemorrhage 10/2021 at [facility] after fall in the setting of supratheraputic INR of 16 and heavy alcohol use. Now on Lovenox and clopidogrel. Assessment & Plan (05/07/2022 10:53 AM EST): Hospitalized for subarachnoid hemorrhage 10/2021 at [facility] after fall in the setting of supratheraputic INR and heavy alcohol use. Hp f/u on 12/10/21 he reports medication making him feel dizzy. We reviewed his med box and we are removing Trazodone, Divalproex. He will continue to be increased high risk for bleed. Will cont to encouraged treatment for alcohol use disorder and monitor INR closely. -F/u 1 month. Mild intermittent asthma 01/04/2017 Overview (10/22/2023): Well controlled. Assessment & Plan (10/22/2023 1:17 PM EDT): Well controlled. Assessment & Plan (11/30/2022 8:46 PM EDT): Pt w dxed of asthma -using albuterol twice a day -prescribed symbicort BID and continue ESSENCE prn -pneumoccocal 20 vaccine today for asthma hx -to f w PCP in 4 weeks Assessment & Plan (08/11/2022 7:33 AM EDT): -Well controlled. History of prosthetic heart valve 08/08/2014 Overview (06/09/2023): Hx [address] 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 No hx CABG. Pacemaker placed for AV radha block. -Coumadin changed to Lovenox since 05/2022 due to INR not at goal > 90 % of the time with INRS as high as 16 and 26 in setting of ETOH with intracranial bleed however pt did not tolerate injections and hematology recommended Coumadin as first line treatment. Pt was changed back to coumadin and has continued to be uncontrolled. - Continue close monitoring on Lovenox when he is subtherapeutic He reprots he drinks 3-4 coors light on a Wednesday about every two weeks and has stopped daily drinking and rum - established with [facility] because insurance no longer accepted by [facility]. -Patient followed at [facility] with Dr. Cristine Deleon DO, seen 06/09/23 Assessment & Plan (03/10/2024 9:52 PM EST): Hx [address] 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 No hx CABG. Pacemaker placed for AV radha block. -Coumadin changed to Lovenox since 05/2022 due to INR not at goal > 90 % of the time with INRS as high as 16 and 26 in setting of ETOH with intracranial bleed however pt did not tolerate injections and hematology recommended Coumadin as first line treatment. Pt was changed back to coumadin and has continued to be uncontrolled. - Continue close monitoring on Lovenox when he is subtherapeutic He reprots he drinks 3-4 coors light on a Wednesday about every two weeks and has stopped daily drinking and rum - established with [facility] because insurance no longer accepted by [facility]. -Patient followed at [facility] with Dr. Cristine Deleon DO, seen 06/09/23 Assessment & Plan (01/19/2024 9:22 AM EDT): Hx [address] 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 No hx CABG. Pacemaker placed for AV radha block. -Coumadin changed to Lovenox since 05/2022 due to INR not at goal > 90 % of the time with INRS as high as 16 and 26 in setting of ETOH with intracranial bleed however pt did not tolerate injections and hematology recommended Coumadin as first line treatment. Pt was changed back to coumadin and has continued to be uncontrolled. - Continue close monitoring on Lovenox when he is subtherapeutic He reprots he drinks 3-4 coors light on a Wednesday about every two weeks and has stopped daily drinking and rum - established with [facility] because insurance no longer accepted by [facility]. -Patient followed at [facility] with Dr. Cristine Deleon DO, seen 06/09/23 Assessment & Plan (12/27/2023 11:07 AM EDT): Hx [address] 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 No hx CABG. Pacemaker placed for AV radha block. -Coumadin changed to Lovenox since 05/2022 due to INR not at goal > 90 % of the time with INRS as high as 16 and 26 in setting of ETOH with intracranial bleed however pt did not tolerate injections and hematology recommended Coumadin as first line treatment. Pt was changed back to coumadin and has continued to be uncontrolled. - Continue close monitoring on Lovenox when he is subtherapeutic He reprots he drinks 3-4 coors light on a Wednesday about every two weeks and has stopped daily drinking and rum - established with [facility] because insurance no longer accepted by [facility]. -Patient followed at [facility] with Dr. Cristine Deleon DO, seen 06/09/23 Assessment & Plan (10/22/2023 11:14 AM EDT): Hx [address] 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 No hx CABG. Pacemaker placed for AV radha block. -Coumadin changed to Lovenox since 05/2022 due to INR not at goal > 90 % of the time with INRS as high as 16 and 26 in setting of ETOH with intracranial bleed however pt did not tolerate injections and hematology recommended Coumadin as first line treatment. Pt was changed back to coumadin and has continued to be uncontrolled. - Continue close monitoring on Lovenox when he is subtherapeutic He reprots he drinks 3-4 coors light on a Wednesday about every two weeks and has stopped daily drinking and rum - established with [facility] because insurance no longer accepted by [facility]. -Patient followed at [facility] with Dr. Cristine Deleon DO, seen 06/09/23 Assessment & Plan (06/09/2023 9:32 AM EST): Hx [address] 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 No hx CABG. Pacemaker placed for AV radha block. -Coumadin changed to Lovenox since 05/2022 due to INR not at goal > 90 % of the time with INRS as high as 16 and 26 in setting of ETOH with intracranial bleed however pt did not tolerate injections and hematology recommended Coumadin as first line treatment. Pt was changed back to coumadin and has continued to be uncontrolled. - Continue close monitoring on Lovenox when he is subtherapeutic He reprots he drinks 3-4 coors light on a Wednesday about every two weeks and has stopped daily drinking and rum - established with [facility] because insurance no longer accepted by [facility]. Assessment & Plan (11/30/2022 8:51 PM EDT): hx of aortic stenosis s/p Aortic valve repair, hx of AF , cardiomyopathy with EF 25-30%, ,hx AAA repair, complete heart block s/p pacemaker,CAD s/P stent INR goal 2.5 to 3.5 -continue to f up with his director physical therapy-next apt w Dr Deleon is on 12/08/2022 - I called cards' office # [phone] and confirmed day and hour and gave info to pt -INR done today here from capillary blood is 1.4<---1.4 on 11/24/2022 --I discussed w pt in length and advised to start lovenox as bridging but pt refusing -he understands risks from be under therapeutic including risk of stroke -continue warfarin but increase to 7.5 mg today and Wednesday -pt f here at warfarin clinic -nurse staff gave info to pt of dose change for now and nurse staff to discuss w VNA -alarm signs and symptoms discussed Assessment & Plan (08/11/2022 7:24 AM EDT): Hx [address] 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 No hx CABG. Pacemaker placed for AV radha block. -Coumadin changed to Lovenox since 05/2022 due to INR not at goal > 90 % of the time with INRS as high as 16 and 26 in setting of ETOH with intracranial bleed however pt did not tolerate injections and hematology recommended Coumadin as first line treatment. Pt was changed back to coumadin and has been doing well. He reprots he drinks 3-4 coors light on a Wednesday about every two weeks and has stopped daily drinking and rum - Established with [facility] because insurance no longer accepted by [facility]. Assessment & Plan (06/03/2022 11:09 AM EST): Hx [address] 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 No hx CABG. Pacemaker placed for AV radha block. -On Lovenox since 05/2022 due to INR not at goal > 90 % of the time with INRS as high as 16 and 26 in setting of ETOH with intracranial bleed. - established with [facility] because insurance no longer accepted by [facility]. Last seen 05/2022 recommending 4 week follow up Assessment & Plan (05/07/2022 10:46 AM EST): Hx [address] 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 No hx CABG. Pacemaker placed for AV radha block. -On Coumadin, managed by [facility]. - established with [facility] because insurance no longer accepted by [facility]. Presence of cardiac pacemaker 03/07/2014 Overview (12/24/2022): -Hx of [employer] dual chamber PPM with extraction of device from the left side and reimplantation of the right side. For complete heart block. Assessment & Plan (10/22/2023 11:14 AM EDT): -Hx of [employer] Travis dual chamber PPM with extraction of device from the left side and reimplantation of the right side. For complete heart block. Assessment & Plan (08/10/2022 11:03 AM EDT): -Hx of [employer] Travis dual chamber PPM with extraction of device from the left side and reimplantation of the right side. For complete heart block. Assessment & Plan (06/03/2022 11:07 AM EST): -Hx of [employer] Travis dual chamber PPM with extraction of device from the left side and reimplantation of the right side. For complete heart block. Assessment & Plan (05/07/2022 10:46 AM EST): Hx of [employer] Travis dual chamber PPM with extraction of device from the left side and reimplantation of the right side. History of substance abuse 07/14/2012 Assessment & Plan (08/11/2022 7:29 AM EDT): -Repots abstinence from recreational drugs. Tobacco dependence 12/30/2011 Overview (12/27/2023): -Cigg/day: more than 1 pack- daily -Age started: 11 years old -Total years smokin -Pack year history: 25 Encouraged smoking cessation resources such as pharmacomtherapy, [facility] smoking cessation group, and [facility] pharmacy smoking cessation clinic -currently smoke cigarettes or quit within the past 15 years. -LDCT: ordered 10/22/23, pt wants to wait till Spring to get it done. In precontemplative stages of quitting. Motivational interviewing done. Assessment & Plan (03/10/2024 9:55 PM EST): -Cigg/day: more than 1 pack- daily -Age started: 11 years old -Total years smokin -Pack year history: 25 Encouraged smoking cessation resources such as pharmacomtherapy, [facility] smoking cessation group, and [facility] pharmacy smoking cessation clinic -currently smoke cigarettes or quit within the past 15 years. -LDCT: ordered 10/22/23, pt wants to wait till Spring to get it done. In precontemplative stages of quitting. Motivational interviewing done. Assessment & Plan (12/27/2023 11:06 AM EDT): -Cigg/day: more than 1 pack- daily -Age started: 11 years old -Total years smokin -Pack year history: 25 Encouraged smoking cessation resources such as pharmacomtherapy, [facility] smoking cessation group, and [facility] pharmacy smoking cessation clinic -currently smoke cigarettes or quit within the past 15 years. -LDCT: ordered 10/22/23, pt wants to wait till Spring to get it done. In precontemplative stages of quitting. Motivational interviewing done. Assessment & Plan (10/22/2023 11:16 AM EDT): -Cigg/day: 1- daily -Age started: 11 years old -Total years smokin -Pack year history: 25 Encouraged smoking cessation resources such as pharmacomtherapy, [facility] smoking cessation group, and [facility] pharmacy smoking cessation clinic -currently smoke cigarettes or quit within the past 15 years. -LDCT: ordered 10/22/23 In precontemplative stages of quitting. Motivational interviewing done. Assessment & Plan (06/09/2023 9:38 AM EST): Smoking 10-15 cig per day. In precontemplative stages of quitting. Motivational interviewing done. Assessment & Plan (03/03/2023 9:40 AM EST): Smoking 10-15 cig per day. In precontemplative stages of quitting. Motivational interviewing done. Depressive disorder 09/14/2011 Overview (03/03/2023): Denies AMELIA. -Continue with therapist and psychiatrist. Assessment & Plan (01/19/2024 9:14 AM EDT): Denies AMELIA. -Continue with therapist and psychiatrist. Assessment & Plan (10/22/2023 11:15 AM EDT): Denies AMELIA. -Continue with therapist and psychiatrist. Assessment & Plan (06/09/2023 9:35 AM EST): Denies AMELIA. -Continue with therapist and psychiatrist. Assessment & Plan (03/03/2023 9:40 AM EST): Denies AMELIA. -Continue with therapist and psychiatrist. Assessment & Plan (08/11/2022 7:27 AM EDT): -He has [facility] and has varying degrees of engagement in the past. Letty AMELIA. Hypertension 08/24/2011 Overview (03/10/2024): Multiple med changes, see med list Assessment & Plan (03/10/2024 9:53 PM EST): Multiple med changes, see med list Assessment & Plan (01/19/2024 9:22 AM EDT): -Continue metoprolol ER 50mg, and amlodipine 2.5mg daily -lisinopril discontinued by cardiology and Entresto started 05/2022 -furosemide 40 mg started during hospitalization 05/17/23 -amlodipine discontinued in hosptial 06/2023 Assessment & Plan (12/27/2023 11:07 AM EDT): -Continue metoprolol ER 50mg, and amlodipine 2.5mg daily -lisinopril discontinued by cardiology and Entresto started 05/2022 -furosemide 40 mg started during hospitalization 05/17[facility]23 [facility] Assessment & Plan (10/22/2023 11:13 AM EDT): -Continue metoprolol ER 50mg, and amlodipine 2.5mg daily -lisinopril discontinued by cardiology and Entresto started 05/2022 -furosemide 40 mg started during hospitalization 05/17/23 [facility] Assessment & Plan (06/09/2023 9:36 AM EST): -Continue metoprolol ER 50mg, and amlodipine 2.5mg daily -lisinopril discontinued by cardiology and Entresto started 05/2022 - Furosemide 40 mg started during hospitalization 05/17/23 Assessment & Plan (08/11/2022 7:28 AM EDT): -Continue metoprolol ER 50mg, and amlodipine 2.5mg daily -Lisinopril discontinued by cardiology and Entresto started 05/2022 Assessment & Plan (06/03/2022 11:11 AM EST): -Continue metoprolol ER 50mg, and amlodipine 2.5mg daily lisinopril discontinued by cardiology and Entresto started 05/2022 Assessment & Plan (05/07/2022 10:41 AM EST): -continue metoprolol succinate ER 50mg -continue lisinopril 10mg po daily -continue amlodipine 2.5mg daily Alcohol use disorder, severe, dependence 012 Overview (03/10/2024): Pt with long history of severe alcohol dependence with multiple hospitalizations, history of withdrawal, history of withdrawal seizures, liver disease and dangerous supratheraputic INRs. Risks discussed at each visit. -continue thiamine and folate -continue with alcohol use disorder clinic -continue with therapist and psychiatrist -continue Acamprosate 333 mg 2 tabs BID started 06/09/23 Assessment & Plan (03/10/2024 9:54 PM EST): Pt with long history of severe alcohol dependence with multiple hospitalizations, history of withdrawal, history of withdrawal seizures, liver disease and dangerous supratheraputic INRs. Risks discussed at each visit. -continue thiamine and folate -continue with alcohol use disorder clinic -continue with therapist and psychiatrist -continue Acamprosate 333 mg 2 tabs BID started 06/09/23 Assessment & Plan (12/27/2023 11:07 AM EDT): Pt with long history of severe alcohol dependence with multiple hospitalizations, history of withdrawal, history of withdrawal seizures, liver disease and dangerous supratheraputic INRs. Risks discussed at each visit. -continue thiamine and folate -continue to encourage treatment -continue with therapist and psychiatrist - Pt expressed willingness to follow up AUD clinic. AUD clinic kindly agreed to see him today. He was started on Acamprosate 333 mg 2 tabs BID 06/09/23 Alcohol Use Disorder Clinic [facility] televist tolerating the medication. Admits to 3 Coors Lights a week . Denies hard liquor use since 05/17/2023. Feels Acamprosate is working well for him as he no longer had cravings after 3 beers (12 oz size). Would like to continue the medication. Denies other concerns at this time. Denies F/C/N/V/D. Previously found to have elevated AST/ALT. Repeat LFT showed marked improvement (AST/ALT 368/454 to 20/02). -Notes decreased to 3 beers/day without withdrawal symptoms. Assessment & Plan (10/22/2023 11:16 AM EDT): Pt with long history of severe alcohol dependence with multiple hospitalizations, history of withdrawal, history of withdrawal seizures, liver disease and dangerous supratheraputic INRs. Risks discussed at each visit. -continue thiamine and folate -continue to encourage treatment -continue with therapist and psychiatrist - Pt expressed willingness to follow up AUD clinic. AUD clinic kindly agreed to see him today. He was started on Acamprosate 333 mg 2 tabs BID 06/09/23 Alcohol Use Disorder Clinic [facility] televist tolerating the medication. Admits to 3 Coors Lights a week . Denies hard liquor use since 05/17/2023. Feels Acamprosate is working well for him as he no longer had cravings after 3 beers (12 oz size). Would like to continue the medication. Denies other concerns at this time. Denies F/C/N/V/D. Previously found to have elevated AST/ALT. Repeat LFT showed marked improvement (AST/ALT 368/454 to 20/02). Assessment & Plan (06/09/2023 11:20 AM EST): Pt with long history of severe alcohol dependence with multiple hospitalizations, history of withdrawal, history of withdrawal seizures, liver disease and dangerous supratheraputic INRs. Risks discussed at each visit. -continue thiamine and folate -continue to encourage treatment -continue with therapist and psychiatrist - Pt expressed willingness to follow up AUD clinic. AUD clinic kindly agreed to see him today. He was started on Acamprosate 333 mg 2 tabs BID 06/09/23 Assessment & Plan (03/03/2023 9:38 AM EST): Pt with long history of severe alcohol dependence with multiple hospitalizations, history of withdrawal, history of withdrawal seizures, liver disease and dangerous supratheraputic INRs. He declines AUD clinic, detox or intervention. Risks discussed at each visit. -continue thiamine and folate -continue to encourage treatment -continue with therapist and psychiatrist Assessment & Plan (11/30/2022 8:41 PM EDT): Discussed in length importance to stop ETOH and offered CRS referral but pt refusing -pt states will try to drink less but states drinking less often beers ,denies heavy alcohol use Assessment & Plan (08/11/2022 7:26 AM EDT): Hx severe alcoholism in the setting of anticoagulation. Motivational interviewing done at each visit. 08/11/2022 repots he has cut down from daily drinking to 3-4 coors light a few times a week. He has been hospitalized multiple times and experienced seizures with withdrawal. He has gone to detox twice and has tried AA. He was seeing a therapist, Jennifer as well as some short term case management but lost services due to missing appointments. He is in the contemplative stages of quitting. Cessationencouraged. He understands risks of EtOH withdrawal. -Continue thiamine and folate. -He now has VMA coming into home. In the past case was closed due to him not being home but the situation has improved. Assessment & Plan (06/03/2022 11:14 AM EST): Pt with severe alcoholism in the setting of anticoagulation. Motivational interviewing done at each visit. He continues to drink heavily. He has been hospitalized multiple times and experienced seizures with withdrawal. He has gone to detox twice and has tried AA. He was seeing a therapist, Jennifer as well as some short term case management but lost services due to missing appointments. He is in the contemplative stages of quitting. Cessation via detox encouraged. He understands risks of EtOH withdrawal. -Continue thiamine and folate. -He now has VMA coming into home. In the past case was closed due to him not being home but the situation has improved Assessment & Plan (05/07/2022 10:39 AM EST): Pt with severe alcoholism in the setting of anticoagulation. Motivational interviewing done at each visit. He continues to drink heavily. He has been hospitalized multiple times and experienced seizures with withdrawal. He has gone to detox twice and has tried AA. He was seeing a therapist, Jennifer as well as some short term case management but lost services due to missing appointments. He is in the contemplative stages of quitting. Cessation via detox encouraged. He understands risks of EtOH withdrawal. -Continue thiamine and folate. -He now has VMA coming into home. In the past case was closed due to him not being home but the situation has improved Resolved Problems Problem Noted Date Diagnosed Date Resolved Date Transaminitis 01/19/2024 03/10/2024 Rhabdomyolysis 06/09/2023 10/22/2023 Sepsis 06/09/2023 10/22/2023 Ambien accidental overdose, subsequent encounter 06/09/2023 10/22/2023 Overview (06/09/2023): Confirmed with psychiatry that he is off Ambien. Assessment & Plan (06/09/2023 8:55 AM EST): Confirmed with psychiatry that he is off Ambien. Pneumonia due to infectious organism 06/09/2023 10/20/2023 EDGAR (acute kidney injury) 06/07/2023 Alcohol withdrawal 04/15/2023 04/15/2023 4 Alcohol abuse 12/24/2022 10/22/2023 Acute hyponatremia 12/24/2022 4 Lumbar radiculopathy 12/24/2022 024 Myofascial pain 12/24/2022 03/03/2023 Nausea & vomiting 12/24/2022 03/03/2023 Warfarin toxicity 12/24/2022 10/22/2023 Elevated international normalized ratio (INR) 05/08/19 23 03/03/2023 Assessment & Plan (05/08/2022 11:12 AM EST): Pt refusing ER. Understands the severity of situation. Coumidine held yesterday and today. Then contiune 2.5 mg Wednesday and Wednesday, re-check Wednesday. Although I have stressed that we are recommending he go to the ER for evaluation. History of mechanical aortic valve replacement 05/08/2022 06/03/2022 Heart failure with reduced ejection fraction 06 0506/03/2022 Chest pain 05/08/2022 08/11/2022 Subtherapeutic anticoagulation 05/07/2022 10/22/2023 Overview (06/07/2023): Pt INR severely uncontrolled ranging from subtheraputic to as high as 16. He has been discharged from 2 coumadin clinics, cardiology, and multiple VNAs. Now managed by our clinic and the VNS. He understands he is high risk for due to drinking alcohol in the setting of coumadin. Assessment & Plan (06/09/2023 11:07 AM EST): Pt INR severely uncontrolled ranging from subtheraputic to as high as 16. He has been discharged from 2 coumadin clinics, cardiology, and multiple VNAs. Now managed by our clinic and the [facility]NS. He understands he is high risk for due to drinking alcohol in the setting of coumadin. Assessment & Plan (05/07/2022 10:54 AM EST): Pt INR severely uncontrolled ranging from subtheraputic to as high as 16. He has been discharged from 2 coumadin clinics, cardiology, and multiple VNAs. Now managed by our clinic and the [facility]NS. He understands he is high risk for due to drinking alcohol in the setting of coumadin. Chronic atrial fibrillation 04/01/2022 06/03/2022 Essential hypertension 04/01/202206/03 Mental disorder 04/01/2022 08/11/2022 Overview (05/07/2022): Pt followed by Dr Carlton gomez signed 12/10/21 to discuss Pt case. I do not know his Psy diagnoses. Pt is high risk for unintentially overdose and bleeding from fall cont olanzipine Ambian discontinue from hos Assessment & Plan (08/10/2022 11:03 AM EDT): Pt followed by Dr Carlton gomez signed 12/10/21 to discuss Pt case. I do not know his Psy diagnoses. Pt is high risk for unintentially overdose and bleeding from fall cont olanzipine Ambian discontinue from hos Assessment & Plan (05/07/2022 10:54 AM EST): Pt followed by Dr Carlton gomez signed 12/10/21 to discuss Pt case. I do not know his Psy diagnoses. Pt is high risk for unintentially overdose and bleeding from fall cont olanzipine Ambian discontinue from hos Drug abuse 03/07/2014 06/03/2022 Hyperlipidemia 09/14/2011 10/22/2023 Assessment & Plan (08/11/2022 7:31 AM EDT): Lab Results Component Value Date CHOLESTEROL 161 08/10/2022 LDLCHOL 80 08/10/2022 LDLCHOL 90 08/22/2020 TRIG 109 08/10/2022 HDLCHOL 62 08/10/2022 CHOLHDLRAT 2.6 08/10/2022 -continue atorvastatin 20, not on high dose due to hx heavy EtOH Asthma 08/24/2011 06/03/2022 Overview (05/07/2022): Well controlled. Assessment & Plan (05/07/2022 10:44 AM EST): Well controlled. Encounters Date Type Department Care Team Description 04/25/2024 Telephone [facility] [address] [place] [address] Nathalie Hsu MD Anticoagulation 04/18/2024 Telephone [facility] [address] [place] [address] Nathalie Hsu MD Anticoagulation 04/14/2024 Orders Only GENERIC EXTERNAL DATA DEPARTMENT Provider, Generic External Data Alcoholic liver disease (CMS/HCC) (Primary Dx) 04/12/2024 Refill [facility] [address] [place] [address] Nathalie Hsu MD Mild intermittent asthma without complication 04/11/2024 Telephone [facility] [address] [place] [address] Nathalie Hsu MD Anticoagulation 04/11/2024 Refill [facility] [address] [place] [address] Nathalie Hsu MD Anemia, unspecified type 04/09/2024 Refill [facility] [address] [place] [address] Nathalie Hsu MD Primary insomnia 04/04/[address] [address] Lesly Crocker, RN Anticoagulation 03/30/[address] [address] Shannan Barrow, RN NTTS 03/30/[address] [address] Nathalie Hsu MD Anticoagulation 03/30/[address] [address] Nathalie Hsu MD 03/30/[address] [address] Nathalie Hsu MD History of alcohol abuse; Hypomagnesemia; Mild intermittent asthma, unspecified whether complicated 03/22/[address] [address] Nathalie Hsu MD No Show 03/22/[address] [address] Nathalie Hsu MD 03/20/2024 Refill [facility] [address] [place] [address] Nathalie Hsu MD Gastroesophageal reflux disease without esophagitis 03/15/2024 Anticoagulation - Warfarin Visit [address] [address] Greta Garibay, RN History of prosthetic heart valve 03/14/[address] [address] Nathalie Hsu MD Anticoagulation 03/10/2024 10:30 AM EST Office Visit [address] [address] Nathalie Hsu MD Alcoholic liver disease (CMS/HCC) (Primary Dx); History of GI bleed; Anemia, unspecified type; Primary insomnia; Alcohol use disorder, severe, dependence ([facility]/HCC); Cardiomyopathy, unspecified type ([facility]); Chronic coronary microvascular dysfunction; Hypertension, unspecified type; Paroxysmal atrial fibrillation ([facility]); Anticoagulated on Coumadin; History of prosthetic heart valve; Acute renal failure, unspecified acute renal failure type ([facility]); Tobacco dependence; Other specified health status; Pain 03/10/2024 Orders Only GENERIC EXTERNAL DATA DEPARTMENT Provider, Generic External Data 03/10/[address] [address] Nathalie Hsu MD Interoffice Communication 03/10/2024 Travel 03/09/[address] [address] Nathalie Hsu MD FYI 03/09/[address] [address] Nathalie Hsu MD Med Refill 03/07/2024 Patient Outreach [address] [address] Nathalie Hsu MD Transition Of Care (Tcm) (HDF - Patient was already scheduled.. Message sent to Team nurses. ) 03/07/[address] [address] Nathalie Hsu MD Hospital Follow-up; Medication Question 03/07/[address] [address] Nathalie Hsu MD Anticoagulation 03/06/[address] [address] Nathalie Hsu MD Hospital Follow-up 03/06/[address] [address] Nathalie Hsu MD Anticoagulation 03/06/[address] [address] Nathalie Hsu MD Medication Question 03/02/[address] [address] Janelle Grayson MD History of prosthetic heart valve 03/01/2024 Refill [facility] [address] [place] [address] Myah Kam, Vijay Hypertension, unspecified type (Primary Dx); Pain 03/01/2024 Telephone [facility] [address] [place] [address] Nathalie Hsu MD Anticoagulation 02/29/2024 Telephone [facility] [address] [facility] [place] [address] Shannan Barrow, RN Hospital Follow-up 02/17/2024 Telephone [facility] [address] [facility] [place] [address] Nathalie Hsu MD 02/17/2024 Telephone [facility] [address] [facility] [place] [address] Shannan Barrow, RN Patient Status 02/16/2024 Telephone [facility] [address] [facility] [place] [address] Shannan Barrow, RN Anticoagulation 02/11/2024 Telephone [facility] [address] [facility] [place] [address] Nathalie Hsu MD Anticoagulation 02/08/2024 Telephone [facility] [address] [facility] [place] [address] Nathalie Hsu MD Anticoagulation 02/08/2024 Telephone [facility] [address] [facility] [place] [address] Shannan Barrow, RN Anticoagulation 02/07/2024 Patient Outreach [facility] [place] [address] Nathalie Hsu MD Transition Of Care (Tcm) (HDF - Scheduled Patient Refused.) 02/02/2024 [place]phone [place] [phone] Nathalie Hsu MD INR 01/30/2024 Refill [facility] [place] [address] Nathalie Hsu MD Mild intermittent asthma without complication from Last 3 Months Immunizations Name Administration Dates Next Due DTaP 10/24/2014 Hep A, Adult 12/27/2023,06/09/2023 Hep B, adult 12/27/2023,10/22/2023,06/09/2023 Influenza injectable quadriv alent preservative free 06/23/2018 Influenza, IIV3, injectable 06/23/2018, 1 Influenza, Split (incl. neha fied surface antigen) 12/21/2011 MMR 01/15/1998 Moderna Covid-19 Vaccine 12+ 08/22/2020 Moderna Covid-19 Vaccine 6+ Bivalent 05/01/2022 Pfizer Covid-19 Vaccine 12+ 11/13/2021 Pfizer Covid-19 Vaccine 12+ cullen-sucrose (Sequeira Cap) 11/13/2021 Pneumococcal Conjugate PCV 20 11/30/2022 Pneumococcal Polysaccharide PPSV23 12/26/2008 TD (adult), 2 Lf tetanus tox oid, preservative free, adsorbed 01/15/1998 Td (adult), unspecified 01/15/1998 Tdap 04/01/2023,11/18/2010 Zoster, Recombinant 11/24/2022 Social History Tobacco Use Types Packs/Day Years Used Date Smoking Tobacco: Every Day Cigarettes Passive Smoke Exposure: Current Smokeless Tobacco: Never Tobacco Cessation:Ready to Q uit: Not Asked; Counseling Given: Not Answered Alcohol Use Standard Drinks/Week Comments Yes 0 [...] the past 12 months, has t he [employer], oil or water [employer] threatened to shut off services in your home? No 06/01/2023 Depression Answer Date Recorded Patient Health Questionnaire-2 Score 0 06/09/2023 Sex and Gender Information Value Date Recorded Sex Assigned at Male 02/02/2022 10:17 AM EDT Legal Sex Male 10:17 AM EDT Gender Identity Male 02/02/2022 10:17 AM EDT Sexual Orientation Straight 02/02/2022 10 :17 AM EDT Last Filed Vital Signs Vital Sign Reading Time Taken Comments Blood Pressure 103/58 03/10/2024 10:18 AM EST Pulse 80 03/10/2024 10:18 AM EST Temperature 36.1 ??C (96.9 ??F) 03/10/2024 10:[address] Respiratory Rate 19 01/19/2024 8:58 AM EDT Oxygen Saturation 96% 03/10/2024 10:18 AM EST Inhaled Oxygen Concentration - - Weight 83 kg (183 lb) 03/10/2024 10:18 AM EST Height 167.6 cm (5' 6 ) 03/10/2024 10:18 AM EST Body Mass Index 29.54 03/10/2024 10:18 AM EST Plan of Treatment Health Maintenance Due Date Last Done Comments CT Colonography 1961 FIT 1961 FOBT 1961 Sigmoidoscopy 1961 RSV Patients and Patients Aged 60 years or older (1 - Risk 60-74 years 1-dose series) 2021 Colonoscopy 03/05/2022 03/05/2012 Zoster Vaccines (2 of 2) 01/19/2023 11/24/2022 SDOH Screening 06/01/2024 06/01/2023 Depression Screening 06/08/2024 06/09/2023, 06/09/19 24 Influenza Vaccine (#1) 2024 9, 06/23/2018, 12/21/2011, Additional history exists Postponed from 12/05/2023 (Patient Refused) COVID-19 Vaccine ( season) 2024 05/01/2022, 11/13/2021, 11/13/2021, Additional history exists Postponed from 12/05/2023 (Patient Refused) Alcohol/Substance Use Screening 01/18/2025 01/19/2024 Tobacco Screening 03/10/2025 03/10/2024 Colorectal Cancer Screening 12/29/2026 FIT DNA/Cologuard 12/29/2026 12/30/2023 Lipid Panel 08/11/2027 08/10/2022, 08/22/2020 DTaP/Tdap/Td Vaccines (4 - Td or Tdap) 04/01/2033 04/01/2023, 10/24/2014, 11/18/2010, Additional history exists HIV Screening Completed 08/10/2022 Hepatitis C Screening Completed 08/10/2022 Pneumococcal Vaccine: Pediatrics (0 to 5 Years) and At-Risk Patients (6 to 64 Years) Completed 11/30/2022, 12/26/2008 Hepatitis A Vaccines Completed 12/27/2023, 06/09/19 24 Hepatitis B Vaccines Completed 12/27/2023, 10/22/2023, 06/09/2023 HIB Vaccines Aged Out No longer eligi ble based on patient's age to complete this topic HPV Vaccines Aged Out No longer eligi ble based on patient's age to complete this topic IPV Vaccines Aged Out No longer eligi ble based on patient's age to complete this topic Meningococcal Vaccine Aged Out No missael ailyn eligible based on patient's age to complete this topic RSV under 20 months Aged Out No longe r eligible based on patient's age to complete this topic Rotavirus Vaccines Aged Out No longer eligible based on patient's age to complete this topic Procedures Procedure Name Priority Date/Time Associated Diagnosis Comments PROTHROMBIN TIME-INR Routine 04/25/2024 PROTHROMBIN TIME-INR Routine 04/18/2024 DRUG MONITORING, PHOSPHATIDYLETHANOL (PETH), BLOOD Routine 04/14/2024 1:41 PM EST Alcoholic liver disease (CMS/HCC) ALPHA FETOPROTEIN, TUMOR MARKER Routine 04/14/2024 1:41 PM EST Alcoholic liver disease (CMS/HCC) COMPREHENSIVE METABOLIC PANEL Routine 04/14/2024 1:41 PM EST PROTHROMBIN TIME-INR Routine 04/14/2024 1:41 PM EST CBC Routine 04/14/2024 1:41 PM EST US ABDOMEN COMPLETE Routine 04/14/2024 1 :04 PM EST PROTHROMBIN TIME-INR Routine 04/11/2024 PROTHROMBIN TIME-INR Routine 04/04/2024 PROTHROMBIN TIME-INR Routine 03/30/2024 PROTHROMBIN TIME-INR Routine 03/28/2024 PROTHROMBIN TIME-INR Routine 03/22/2024 9:09 AM EST Alcohol use disorder, severe, dependence (CMS/HCC) CBC WITH AUTO DIFFERENTIAL Routine 03/22 9:09 AM EST Alcohol use disorder, severe, dependence (CMS/HCC) PROTHROMBIN TIME-INR Routine 03/14/2024 CBC Routine 03/10/2024 11:00 AM EST COMPREHENSIVE METABOLIC PANEL Routine 03/10/2024 11:00 AM EST PROTHROMBIN TIME-INR Routine 03/10/2024 11:00 AM EST PROTHROMBIN TIME-INR Routine 03/09/2024 PROTHROMBIN TIME-INR Routine 03/07/2024 PROTHROMBIN TIME-INR Routine 03/06/2024 PROTHROMBIN TIME-INR Routine 03/01/2024 PROTHROMBIN TIME-INR Routine 02/11/2024 PROTHROMBIN TIME-INR Routine 02/08/2024 PROTHROMBIN TIME-INR Routine 02/02/2024 LAB COLOGUARD?? COLON CANCER SCREEN Routine 12/30/2023 1:30 AM EDT Colon cancer screening HEPATITIS C AB W/REFL TO HCV RNA, QN, PCR Routine 08/10/2022 11:24 AM EDT Routine screening for STI (sexually transmitted infection) HIV 1/2 ANTIGEN/ANTIBODY, FOURTH GENERATION W/RFL Routine 08/10/2022 11:24 AM EDT Routine screening for STI (sexually transmitted infection) LIPID PANEL, STANDARD Routine 08/10/2022 11:24 AM EDT Cardiomyopathy, unspecified type (CMS/HCC) HM COLONOSCOPY Routine 03/05/2012 from Last 3 Months or Most Recently Relevant to Health Maintenance Results * (ABNORMAL) Prothrombin Time-INR (04/25/2024) Only the most recent of17 resultswithin the time period is included. INR 2.10(L) 2.50 - 3.50 [facility] Protime [facility] Blood Venous blood specimen / Unknown us Nathalie Hsu MD LAB BLOOD ORDERABLES Final Result [facility] [address] [place] [phone] * Drug Monitoring, Phosphatidylethanol (PEth), Blood (04/14/2024 1:41 PM EST) Phosphatidylethanol, Blood NEGATIVE [facility] Comment:REFERENCE RANGE: <20 ng/mLTHIS TEST PERFORMED AT:[facility] [place] [phone] DIRECTOR: SERAFIN YUSUF MD, PHD [facility] 16:0/18:2 (PLPEth) NEGATIVE [facility] Comment:REFERENCE RANGE: <20 ng/mLTHIS TEST PERFORMED AT:[facility] [place], [place] [phone] DIRECTOR: SERAFIN YUSUF MD, PHD [facility] Comments SEE NOTE [facility] Comment:This drug testing is for medical treatment only.Analysis was performed as non-forensic testing andthese results should be used only by healthcareproviders to render diagnosis or treatment, or tomonitor progress of medical conditions.LDT Notes:Confirmation tests were developed and their analyticalperformance characteristics have been determined by[facility]. It has not been cleared or approvedby the FDA. This assay has been validated pursuant tot CLIA regulations and is used for clinical purposes.Healthcare Providers needing Interpretation assistance,please contact us at [phone] ( )M-F, 8am to 10pm ESTTHIS TEST PERFORMED AT:[facility] [address] [phone] DIRECTOR: KEENAN DOWNS MD 04/14/2024 1:41 PM EST 04/14/2024 1:41 PM EST us Generic External Data Provider LAB BLOOD ORDERAB LES Final Result [facility] [address] [place] [address] [phone] * Alpha-Fetoprotein, Tumor Marker (04/14/2024 1:41 PM EST) Alpha Fetoprotein 4.7 <6.1 ng/mL [facility] Comment:This test was perfor med using the Lavon Coulterchemiluminescent method. Values obtained fromdifferent assay methods cannot be usedinterchangeably. AFP levels, regardless ofvalue, should not be interpreted as absoluteevidence of the presence or absence of disease.THIS TEST WAS PERFORMED AT:[facility] [place] [phone] DOWNS MD 04/14/2024 1:41 PM EST 04/14/2024 1:41 PM EST us Generic External Data Provider LAB BLOOD ORDERAB LES Final Result [facility] [address] [place] [address] [phone] * (ABNORMAL) CBC (04/14/2024 1:41 PM EST) Only the most recent of2 resultswithin the time period is included. Pathologist [facility] White Blood Count 9.7 4.8 - 10.8 X10*3/uL [facility] Red Blood Count 4.32(L) 4.60 - 5.80 X10*6/uL [facility] Hemoglobin 13.6(L) 14.0 - 18.0 g/dl [facility] Hematocrit 40.6(L) 42.0 - 52.0 % [facility] Mean Corpuscular Volume 94.0 80.0 - 98.0 fL [facility] Mean Corpuscular Hemoglobin 31.5 27.0 - 33.0 pg [facility] Mean Corpuscular HGB Conc 33.5 31.0 - 36.0 g/dl [facility] Red Cell Distribution Width 17.2(H) 11.0 - 16.0 % [facility] Platelet Count 271 160 - 400 X10*3/uL [facility] Mean Platelet Volume 8.7(L) 9.4 - 12.4 fL [facility] NRBC Pct Auto 0.0 0.0 - 0.2 /100WBC [facility] NRBC Abs Auto 0.000 0.0 - 0.012 X10*3/uL [facility] 04/14/2024 1:41 PM EST 04/14/2024 1:41 PM EST us Generic External Data Provider LAB BLOOD ORDERAB LES Final Result [facility] [address] [place] [address] [phone] * (ABNORMAL) Comprehensive Metabolic Panel (04/14/2024 1:41 PM EST) Only the most recent of2 resultswithin the time period is included. Sodium 138 135 - 145 mmol/L [facility] Potassium 4.1 3.3 - 5.1 mmol/L [facility] Chloride 112(H) 96 - 108 mmol/L [facility] Carbon Dioxide 20(L) 22 - 29 mmol/L [facility] Anion Gap 10(L) 12 - 20 [facility] Urea Nitrogen (BUN) 20(H) 9 - 16 mg/dL [facility] Creatinine, Serum 1.16 0.5 - 1.4 mg/dL [facility] Estimated Glomerular Filt Rate >60 [facility] Comment:Chronic Kidney Disea se: Estimated GFR < 60 mL/min/1.34u6Zybehz Kidney Disease: Estimated GFR < 15 mL/min/1.73m2 Glucose 89 60 - 115 mg/dL [facility] Calcium 9.1 8.4 - 10.2 mg/dL [facility] Bilirubin, Total 1.6(H) 0.0 - 1.0 mg/dL [facility] Aspartate Amino Transferase 35 5 - 37 U/L [facility] Alanine Aminotransferase 28 0 - 40 U/L [facility] Total Protein 8.7(H) 6.5 - 8.0 g/dL [facility] Albumin Level 3.8 3.5 - 5.0 g/dL [facility] Alkaline Phosphatase 146(H) 39 - 117 U/L [facility] 04/14/2024 1:41 PM EST 04/14/2024 1:41 PM EST us Generic External Data Provider LAB BLOOD ORDERAB LES Final Result [facility] [address] [facility] [place] [phone] * US Abdomen Complete (04/14/2024 1:04 PM EST) Anatomical Region Laterality Modality Abdomen Ultrasound 04/14/2024 1:04 PM EST Narrative 04/17/2024 3:52 PM EST ? [facility] ?[address] ?[place] [address] ? Ultrasound Report ? Signed ? Patient: Omid Caballero ?MR#: [id number] ?? 14 ? : 1960 ?Acct:[id number] ? Age/Sex: 64 / M ?ADM Date: 04/14/24 ? Loc: HO.US ? Attending Dr: Lisbeth Johnson MD ? Ordering Physician: Lisebth Johnson MD ?? Date of Service: 04/14/24 ?? Procedure(s): US abdomen complete ?? Accession Number(s): [id number] ? cc: Nathalie Hsu MD; Lisbeth Johnson MD ? EXAMINATION: ?? US ABDOMEN COMPLETE ? CLINICAL INFORMATION: ?? Hepatic failure, unspecified without coma. ? COMPARISON: ?? Ultrasound 11/17/2022, CT examinations (numerous) most recently 12/08/2023. ? TECHNIQUE: ?? Real-time grayscale and color Doppler imaging of the abdominal viscera. ? FINDINGS: ? PANCREAS: Visualized portions are unremarkable. ? ABDOMINAL AORTA: The proximal, mid, and distal segments are normal in ?? caliber. ? INFERIOR VENA CAVA: Visualized portions are normal. ? LIVER: The liver is normal in size. The liver contour is normal. There ?? is diffuse increased liver parenchymal echogenicity, consistent with ?? hepatic steatosis. ??No focal hepatic lesion. There is no intrahepatic ?? biliary duct dilatation seen. ? GALLBLADDER: The gallbladder is physiologically distended without ?? evidence of stones, sludge, polyps, wall thickening or pericholecystic ?? fluid. There is mild adenomyomatosis of the gallbladder wall as ?? evidenced by ring down artifact. ? COMMON BILE DUCT: Normal in caliber measuring 0.4 cm in diameter. ? RIGHT KIDNEY: No hydronephrosis. No renal calculi or suspicious focal ?? parenchymal lesions. The kidney measures 10.0 cm in maximum dimension. ?? There is a simple lower pole cyst measuring 0.8 cm. ? LEFT KIDNEY: No hydronephrosis. No renal calculi or focal parenchymal ?? lesions. The kidney measures 12.7 cm in maximum dimension. ? SPLEEN: The spleen measures 11.1 cm in maximum dimension. ? FREE FLUID: None. ? US/US abdomen complete ?? IMPRESSION: ?? 1. Mild diffusely increased hepatic parenchymal echogenicity, ?? suggestive of mild steatosis. No focal suspicious lesion. ?? 2. No biliary abnormality. ?? 3. Mild adenomyomatosis of the gallbladder. Gallbladder otherwise ?? normal. ?? 4. 0.8 cm simple cyst right kidney. ? Electronically signed by: ??Keron Herrera MD ??04/17/2024 03:49 PM EST RP ? Dictated By: ?Keron Herrera MD ? Signed By: ?<Electronically signed by Keron Herrera MD in OV> ?04/17/24 1549 ? DD/ 1304 ? TD/TT: 04/14/24 1319 ? Supervisor [place]: ? Procedure Note [facility], Image - 04/17/[address] [address] Ultrasound Report Signed Patient: Mandi Caballero#: [id number] 14 : 1Acct:[id number] Age/Sex: 64 / MADM Date: 04/14/24 Loc: HO.US Attending Dr: Lisbeth Johnson MD Ordering Physician: Lisbeth Johnson MD Date of Service: 04/14/24 Procedure(s): US abdomen complete Accession Number(s): [id number] cc: Nathalie Hsu MD; Lisbeth Johnson MD EXAMINATION: US ABDOMEN COMPLETE CLINICAL INFORMATION: Hepatic failure, unspecified without coma. COMPARISON: Ultrasound 11/17/2022, CT examinations (numerous) most recently 12/08/2023. TECHNIQUE: Real-time grayscale and color Doppler imaging of the abdominal viscera. FINDINGS: PANCREAS: Visualized portions are unremarkable. ABDOMINAL AORTA: The proximal, mid, and distal segments are normal in caliber. INFERIOR VENA CAVA: Visualized portions are normal. LIVER: The liver is normal in size. The liver contour is normal. There is diffuse increased liver parenchymal echogenicity, consistent with hepatic steatosis. No focal hepatic lesion. There is no intrahepatic biliary duct dilatation seen. GALLBLADDER: The gallbladder is physiologically distended without evidence of stones, sludge, polyps, wall thickening or pericholecystic fluid. There is mild adenomyomatosis of the gallbladder wall as evidenced by ring down artifact. COMMON BILE DUCT: Normal in caliber measuring 0.4 cm in diameter. RIGHT KIDNEY: No hydronephrosis. No renal calculi or suspicious focal parenchymal lesions. The kidney measures 10.0 cm in maximum dimension. There is a simple lower pole cyst measuring 0.8 cm. LEFT KIDNEY: No hydronephrosis. No renal calculi or focal parenchymal lesions. The kidney measures 12.7 cm in maximum dimension. SPLEEN: The spleen measures 11.1 cm in maximum dimension. FREE FLUID: None. US/US abdomen complete IMPRESSION: 1. Mild diffusely increased hepatic parenchymal echogenicity, suggestive of mild steatosis. No focal suspicious lesion. 2. No biliary abnormality. 3. Mild adenomyomatosis of the gallbladder. Gallbladder otherwise normal. 4. 0.8 cm simple cyst right kidney. Electronically signed by: Keron Herrera MD 04/17/2024 03:49 PM [facility] Dictated By: Keron Herrera MD Signed By: <Electronically signed by Keron Herrera MD in OV> 04/17/24 1549 DD/ 1304 TD/TT: 04/14/24 1319 Supervisor [place]: [facility] External Provider IMG US PROCEDURES Final Result * (ABNORMAL) CBC auto differential (03/22/2024 9:09 AM EST) White Blood Count 8.5 4.8 - 10.8 X10*3/uL [facility] Red Blood Count 3.13(L) 4.60 - 5.80 X10*6/uL [facility] Hemoglobin 9.9(L) 14.0 - 18.0 g/dl [facility] Hematocrit 30.2(L) 42.0 - 52.0 % [facility] Mean Corpuscular Volume 96.5 80.0 - 98.0 fL [facility] Mean Corpuscular Hemoglobin 31.6 27.0 - 33.0 pg [facility] Mean Corpuscular HGB Conc 32.8 31.0 - 36.0 g/dl [facility] Red Cell Distribution Width 22.6(H) 11.0 - 16.0 % [facility] Platelet Count 217 160 - 400 X10*3/uL [facility] Mean Platelet Volume 10.3 9.4 - 12.4 fL [facility] Neutrophils Percent Auto 62.2 45 - 73 % [facility] Imm Gran Pct Auto 0.2 0.0 - 0.4 % [facility] Lymphocytes Percent Auto 23.7 20 - 40 % [facility] Monocytes Percent Auto 10.6 2 - 11 % [facility] Eosinophils Percent Auto 2.1 0 - 4 % [facility] Basophils Percent Auto 1.2 0 - 2 % [facility] NRBC Pct Auto 0.0 0.0 - 0.2 /100WBC [facility] Neutrophils Absolute Auto 5.3 2.0 - 8.3 x10*3/uL [facility] Imm Gran Abs Auto 0.02 0.00 - 0.03 X10*3/uL [facility] Lymphocytes Absolute Auto 2.0 1.2 - 4.9 X10*3/uL [facility] Monocytes Absolute Auto 0.9 0.1 - 1.2 X10*3/uL [facility] Eosinophils Absolute Auto 0.2 0.0 - 0.4 X10*3/uL [facility] Basophils Absolute Auto 0.1 0.0 - 0.2 X10*3/uL [facility] NRBC Abs Auto 0.000 0.0 - 0.012 X10*3/uL [facility] Blood Venous blood specimen / Unknown 03/22/2024 9:09 AM EST 03/22/2024 11:51 AM EST us Nathalie Hsu MD LAB BLOOD ORDERABLES Final Result [facility] [address] [place] [address] [phone] * Cologuard?? colon cancer screening (12/30/2023 1:30 AM EDT) Cologuard Result Negative Negative 01/05/20 1:07 AM EDT [facility] (CLIA #:[id number]) Comment: NEGATIVE TEST RESULT. A negative Cologuard result indicates a low likelihood that a colorectal cancer (CRC) or advanced adenoma (adenomatous polyps with more advanced pre-malignant features) ??is present. The chance that a person with a negative Cologuard test has a colorectal cancer is less than 1 in 1500 (negative predictive value >99.9%) or has an ??advanced adenoma is less than ??5.3% (negative predictive value 94.7%). These data are based on a prospective cross-sectional study of 10,000 individuals at average risk for colorectal cancer who were screened with both Cologuard and colonoscopy. (Tien Landeros al, N Engl J Med 2014;370(14):1286- 1297) The normal value (reference range) for this assay is negative. COLOGUARD RE-SCREENING RECOMMENDATION: Periodic colorectal cancer screening is an important part of preventive healthcare for asymptomatic individuals at average risk for colorectal cancer. ??Following a negative Cologuard result, the [place] Cancer Society and U.S. Multi-Society Task Force screening guidelines recommend a Cologuard re-screening interval of 3 years. References: [employer] Cancer Society Guideline for Colorectal Cancer Screening: https://www.cancer.org/cancer/fkkuq-naljme-fkqyql/opexzfvbd-wwfsmnccm-szedfkw/ac s-rec ommendations.html.; Honorio DK, Lita CR, Luba JamesK, Colorectal Cancer Screening: Recommendations for Physicians and Patients from the U.S. Multi-Society Task Force on Colorectal Cancer Screening , Am J Gastroenterology 2017; 112:3239-6111. TEST DESCRIPTION: Composite algorithmic analysis of stool DNA-biomarkers with hemoglobin immunoassay. ?? Quantitative values of individual biomarkers are not reportable and are not associated with individual biomarker result reference ranges. Cologuard is intended for colorectal cancer screening of adults of either sex, 45 years or older, who are at average-risk for colorectal cancer (CRC). Cologuard has been approved for use by the U.S. FDA. The performance of Cologuard was established in a cross sectional study of average-risk adults aged 50-84. Cologuard performance in patients ages 45 to 49 years was estimated by sub-group analysis of near-age groups. Colonoscopies performed for a positive result may find as the most clinically significant lesion: colorectal cancer [4.0%], advanced adenoma (including sessile serrated polyps greater than or equal to 1cm diameter) [20%] or non- advanced adenoma [31%]; or no colorectal neoplasia [45%]. These estimates are derived from a prospective cross-sectional screening study of 10,000 individuals at average risk for colorectal cancer who were screened with both Cologuard and colonoscopy. (Tien Haq et al, N Engl J Med 2014;370(14):3356-7514.) Cologuard may produce a false negative or false positive result (no colorectal cancer or precancerous polyp present at colonoscopy follow up). A negative Cologuard test result does not guarantee the absence of CRC or advanced adenoma (pre-cancer). The current Cologuard screening interval is every 3 years. ([employer] Cancer Society and U.S. Multi-Society Task Force). Cologuard performance data in a 10,000 patient pivotal study using colonoscopy as the reference method can be accessed at the following location: www.[employer]fx.Phantom [employer]/results. Additional description of the Cologuard test process, warnings and precautions can be found at www.in2appsrd.com. Stool specimen (specimen) Rectal contents / Unknown 12/30/2023 1:30 AM EDT 01/01/2024 3:30 PM EDT Nathalie Hsu MD LAB MOLECULAR DIAGNOSTICS ORDERABLES Final Result [facility] (CLIA #:[id number]) [place] [address], * Hepatitis C Antibody with Reflex to HCV, RNA, Quantitative, Real-Time PCR (08/10/2022 11:24 AM EDT) Hepatitis C Antibody NON-REACT KG NON-REACT KG [facility] [place] [facility] Index 0.13 <1.00 [facility] Comment: HCV antibody was non-reactive. There is no laboratory evidence of HCV infection. In most cases, no further action is required. However, if recent HCV exposure is suspected, a test for HCV RNA (test code 79110) is suggested. For additional information please refer to http://education.Promethean/faq/UVP74r7 (This link is being provided for informational/ educational purposes only.) Blood Venous blood specimen / Unknown 08/10/2022 11:24 AM EDT 08/10/2022 11:25 AM EDT Narrative [facility] - 08/16/2022 12:40 AM EDT FASTING:NO FASTING: NO Nathalie Hsu MD LAB BLOOD ORDERABLES Final Result Performing Organization Address City/[facility]/ZIP Co de Phone Number [facility] [address], [place] [address] [facility] [address] [place] [address] * HIV-1/2 Antigen and Antibodies, Fourth Generation, with Reflexes (08/10/2022 11:24 AM EDT) HIV Antigen/Antibody, 4th Generation NON-REAC TIVE NON-REAC TIVE [facility] Comment: HIV-1 antigen and HIV-1/HIV-2 antibodies were not detected. There is no laboratory evidence of HIV infection. PLEASE NOTE: This information has been disclosed to you from records whose confidentiality may be protected by state law. ??If your state requires such protection, then the state law prohibits you from making any further disclosure of the information without the specific written consent of the person to whom it pertains, or as otherwise permitted by law. A general authorization for the release of medical or other information is NOT sufficient for this purpose. ?? For additional information please refer to http://education.Promethean/faq/FDF955 (This link is being provided for informational/ educational purposes only.) The performance of this assay has not been clinically validated in patients less than 2 years old. Blood Venous blood specimen / Unknown 08/10/2022 11:24 AM EDT 08/10/2022 11:25 AM EDT [facility] - 08/16/2022 12:40 AM EDT FASTING:NO FASTING: NO Nathalie Hsu MD LAB BLOOD ORDERABLES Final Result [facility] [address], [place] [address] [facility] [place] [facility] [address] [place] [address] * Lipid Panel, Standard (08/10/2022 11:24 AM EDT) [facility] Signature Cholesterol, Total 161 <200 mg/dL [facility] [place] [facility] HDL Cholesterol 62 > OR = 40 mg/dL [facility] [place] [facility] Triglycerides 109 <150 mg/dL [facility] [place] [facility] LDL Cholesterol 80 mg/dL (calc) [facility] [place] [facility] Comment: Reference range: <100 Desirable range <100 mg/dL for primary prevention; ?? <70 mg/dL for patients with CHD or diabetic patients with > or = 2 CHD risk factors. LDL-C is now calculated using the Gallo calculation, which is a validated novel method providing better accuracy than the Friedewald equation in the estimation of LDL-C. Anthony LITTLE et al. FLAKITA. 2013;310(19): 2846-2227 (http://education.[employer].Phantom Pay/faq/FQQ169) Chol/HDLC Ratio 2.6 <5.0 (calc) [facility] Non-HDL Cholesterol 99 <130 mg/dL (calc) [facility] Comment: For patients with diabetes plus 1 major ASCVD risk factor, treating to a non-HDL-C goal of <100 mg/dL (LDL-C of <70 mg/dL) is considered a therapeutic option. Blood Venous blood specimen / Unknown 08/10/2022 11:24 AM EDT 08/10/2022 11:25 AM EDT Narrative [facility] - 08/16/2022 12:40 AM EDT FASTING:NO FASTING: NO Nathalie Hsu MD LAB BLOOD ORDERABLES Final Result [facility] [address], [place] [address] [facility] [address] [place] [address] * Hm Colonoscopy (03/05/2012) Colonoscopy Dr. Zhang Historical Provider HEALTH MAINTENANCE Final Result from Last 3 Months or Most Recently Relevant to Health Maintenance Insurance [facility] C3 Advance Directives Documents on File Type Date Recorded Patient Pipe Organ Builder Expl anation Advance Directives and Living Will 06/10/2023 1:14 PM Health Care Proxy Care Teams Hospitality Ambassador Relationship Specialty Start Date End Date Aracelis, MD Nathalie [address] [place] [address] PCP - General Family Medicine 09/27/13 Shannan Barrow, RN [address] [place] [address] Registered Nurse 02/29/24 Lisbeth Johnson [address] [place] [address] [address] [place] [address] Gastroenterology 03/15/24 Tonya Poole Citrix ArchitectHide Shaker 01/19/24 Raman (VNA S) Registered Nurse 02/29/24 Marcos Verdin MD [facility] [address] [place] [address] Cardiology 03/10/24 Omid Vincent Psychiatry 03/15/24
--- OUTSIDE RECORDS SUMMARY | 2024-04-28 16:08 | XMS_ITS | Encounter Summary ---
Author Organization [employer] Address [address] [place] [address] Care Team Providers Care Heel Top Lift Splitter Name Role Phone Nathalie Hsu MD Primary Care Provider [phone] Shannan Barrow RN Unavailable [phone] Lisbeth Johnson Unavailable Reason for Visit * Reason Onset Date Comments INR report 03/31/2023 Encounter Details Date Type Department Care Team (Late st Contact Info) Description 03/31/2023 Telephone [facility]IC[facility] [address] [place], [place] [phone] Nathalie Hsu MD [address] [place], [place] [phone] INR report Social History Tobacco Use Types Packs/Day Years Used Date Smoking Tobacco: Every Day Cigarettes Passive Smoke Exposure: Current Smokeless Tobacco: Never Depression Answer Date Recorded Patient Health Questionnaire-9 [...] encounter Miscellaneous Notes * Telephone Encounter - Garry Jeronimorero - 03/31/2023 3:39 PM EST Tc from Raman VALE with [facility] requesting a call from a nurse to report an INR results. Please contact Raman @ [phone] documented in this encounter Plan of Treatment Not on file documented as of this encounter Visit Diagnoses Not on filedocumented in this encounter Additional Health Concerns Assessment Noted Time PHQ-9 Depression Total Score: 6 05/08/19 23 10:33 AM EST documented as of this encounter Care Teams Heel Top Lift Splitter Relationship Specialty Start Date End Date Nathalie Hsu MD [address] [place] [address] PCP - General Family Medicine 09/27/13 Shannan Barrow, RN [address] [place] [address] Registered Nurse 02/29/24 Lisbeth Johnson [address] [place] [address] [address] [place] [address] Gastroenterology 03/15/24 Tonya Poole Pocketbook MakerSolid Waste Facility Supervisor 01/19/24 Raman (KAVIN S) Registered Nurse 02/29/24 MD [facility] [address] [place] [address] Cardiology 03/10/24 Omid Vincent Psychiatry 03/15/24 documented as of this encounter
--- OUTSIDE RECORDS SUMMARY | 2024-04-28 16:08 | XMS_ITS | Encounter Summary ---
Author Organization [facility] Address [address] [facility] 7t [place] [address] Care Team Providers Care Sisal Picker Name Role Phone Nathalie Hsu MD Primary Care Provider [phone]- [phone] Shannan Barrow RN Unavailable [phone] Lisbeth Johnson Unavailable Encounter Details Date Type Department Care Team (Late st Contact Info) Description 05/12/2022 Abstract [facility] MED[facility]INE [address] [place], [place] [phone] Nathalie Hsu MD [address] [place], [place] [phone] Social History Tobacco Use Types Packs/Day Years Used Date Smoking Tobacco: Never Smokeless Tobacco: Never Depression Answer Date Recorded Patient Health Questionnaire-9 Score 6 05/08/2022 Depression Answer Date Recorded Patient Health Questionnaire-2 Score 2 05/08/2022 Sex and Gender Information Value Date Recorded Sex Assigned at Male 02/02/2022 10:17 AM EDT Legal Sex Male 10:17 AM EDT Gender Identity Male 02/02/2022 10:17 AM EDT Sexual Orientation Straight 02/02/2022 10 :17 AM EDT COVID-19 Exposure Response Date Recorded In the last 10 days, have yo u been in contact with someone who was confirmed or suspected to have Coronavirus/COVID-19? No / Unsure 05/13/2022 1:59 PM EST documented as of this encounter Plan of Treatment Not on file documented as of this encounter Procedures Procedure Name Priority Date/Time Associated Diagnosis Comments HM COLONOSCOPY Routine 03/05/2012 documented in this encounter Results * Hm Colonoscopy (03/05/2012) Colonoscopy Dr. Zhang us Historical Provider HEALTH MAINTENANCE Final Result documented in this encounter Visit Diagnoses Not on filedocumented in this encounter Additional Health Concerns Assessment Noted Time PHQ-9 Depression Total Score: 6 05/08/19 23 10:33 AM EST documented as of this encounter Care Teams Sisal Picker Relationship Specialty Start Date End Date Nathalie Hsu MD [address] [place] [address] PCP - General Family Medicine 09/27/13 Shannan Barrow RN [address] [place] [address] Registered Nurse 02/29/24 Lisbeth Johnson [address] [place] [address] Drive 3rd [place] [address] Gastroenterology 03/15/24 Tonya Poole Pier Master AssistantLap Runner 01/19/24 Raman ([facility]) Registered Nurse 02/29/24 Marcos Verdin MD [place] [facility] [address] [place] [address] Cardiology 03/10/24 Omid Vincent Psychiatry 03/15/24 documented as of this encounter
--- OUTSIDE RECORDS SUMMARY | 2024-04-28 16:08 | XMS_ITS | Encounter Summary ---
Author Organization [employer] Address [address] 7t [place] [address] Care Team Providers Care Beauty Shop Manager Name Role Phone Nathalie Hsu MD Primary Care Provider [phone]- [phone] Shannan Barrow RN Unavailable [phone] Lisbeth Johnson Unavailable Reason for Visit * Reason Comments Med Refill Encounter Details Date Type Department Care Team (Late st Contact Info) Description 02/12/2023 Refill [facility] MEDICINE 230 [place], [place] [phone] Nathalie Hsu MD [address] [place], [place] [phone] Pain Social History Tobacco Use Types Packs/Day Years [...] as of this encounter Visit Diagnoses Diagnosis Pain Generalized pain documented in this encounter Additional Health Concerns Assessment Noted Time PHQ-9 Depression Total Score: 6 05/08/19 23 10:33 AM EST documented as of this encounter Care Teams Beauty Shop Manager Relationship Specialty Start Date End Date Nathalie Hsu MD [address] [place] [address] PCP - General Family Medicine 09/27/13 Shannan Barrow, KHAI [address] [place] [address] Registered Nurse 02/29/24 Lisbeth Johnson [address] [place] [address] 3rd [place] [address] Gastroenterology 03/15/24 Tonya Poole Autocad Electrical DesignerRibbon Tier 01/19/24 Raman ([facility]) Registered Nurse 02/29/24 Marcos Verdin MD [place] [facility] [address] [place] [address] Cardiology 03/10/24 Omid Vincent Psychiatry 03/15/24 documented as of this encounter
--- OUTSIDE RECORDS SUMMARY | 2024-04-28 16:08 | XMS_ITS | Encounter Summary ---
Author Organization [employer] Address [address] 7t [place] [address] Care Team Providers Care 3D Animator Name Role Phone Nathalie Hsu MD Primary Care Provider [phone]- [phone] Shannan Barrow RN Unavailable [phone] Lisbeth Johnson Unavailable Encounter Details Date Type Department Care Team (Late st Contact Info) Description 11/08/2023 Telephone [facility] MEDICINE 230 [place], [place] [phone] Nathalie Hsu MD 230 [place], [place] [phone] Social History Tobacco Use Types Packs/Day Years [...] encounter Miscellaneous Notes * Telephone Encounter - Eliazar Gan - 11/08/2023 3:42 PM EDT Juliana [facility] calling requesting PT1 Home Address verified: Y/N: Yes Provider name or facility name: [facility]) Facility Address: [address] [place] [address] Escort needed: Y/N: Yes Do you have a wheelchair: Y/N: No If yes- Manual or electric: Visits: once a month documented in this encounter Plan of Treatment Not on file documented as of this encounter Visit Diagnoses Not on filedocumented in this encounter Additional Health Concerns Assessment Noted Time PHQ-9 Depression Total Score: 0 06/09/19 24 9:13 AM EST documented as of this encounter Care Teams 3D Animator Relationship Specialty Start Date End Date Nathalie Hsu MD [address] [place] [address] PCP - General Family Medicine 09/27/13 Shannan Barrow, RN [address] [place] [address] Registered Nurse 02/29/24 Lisbeth Johnson [address] [place] [address] 3rd [place] [address] Gastroenterology 03/15/24 Tonya Poole Adapted Physical Education SpecialistTaxi Cab Driver 01/19/24 Raman ([facility]) Registered Nurse 02/29/24 Mracos Verdin MD [place] [facility] [address] [place] [address] Cardiology 03/10/24 Omid Vincent Psychiatry 03/15/24 documented as of this encounter
--- OUTSIDE RECORDS SUMMARY | 2024-04-28 16:08 | XMS_ITS | Encounter Summary ---
Author Organization [employer] [facility] Address [address] 7t [place] [address] Care Team Providers Care Power And Recovery Superintendent Name Role Phone Nathalie Hsu MD Primary Care Provider [phone]- [phone] Shannan Barrow RN Unavailable [phone] Lisbeth Johnson Unavailable Reason for Visit * Reason Onset Date Comments Results 01/12/2023 INR Encounter Details Date Type Department Care Team (Late st Contact Info) Description 01/12/2023 Telephone [facility] MEDICINE 230 [place] [address] Nathalie Hsu MD [address] [place], [place] [phone] Results (INR) Social History Tobacco Use Types Packs/Day Years Used Date Smoking Tobacco: Every Day Cigarettes Passive Smoke Exposure: Current Smokeless Tobacco: Never Depression Answer Date Recorded Patient Health Questionnaire-9 Score 6 05/08/2022 Housing Stability Answer Date Recorded What is your housing situation today? I have memo camara 01/12/[address] you li ve. Do you have problems with any of the following? None of the above 01/12/2023 Food Insecurity Answer Date Recorded Within the past 12 months, y ou worried that your food would run out before you got money to buy more: Never True 01/12/2023 Within the past 12 months,th e food you bought just didn't last and you didn't have enough money to get more: Never True 01/2023 Transportation Answer Date Recorded In the past 12 months, has l ack of transportation kept you from medical appts, meetings, work or from getting things needed for daily living? No 01/12/2023 Utilities Answer Date Recorded In the past 12 months, has t he electric, gas, 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 threatened to shut off services in your home? No 01/12/2023 Depression Answer Date Recorded Patient Health Questionnaire-2 Score 2 05/08/2022 Sex and Gender Information Value Date Recorded Sex Assigned at Male 02/02/2022 10:17 AM EDT Legal Sex Male 10:17 AM EDT Gender Identity Male 02/02/2022 10:17 AM EDT Sexual Orientation Straight 02/02/2022 10 :17 AM EDT documented as of this encounter Miscellaneous Notes * Telephone Encounter - Ericka Smiley - 01/12/2023 12:36 PM EDT Tc from [facility] at [facility] reporting INR results. Please call [phone] documented in this encounter Plan of Treatment Not on file documented as of this encounter Visit Diagnoses Not on filedocumented in this encounter Additional Health Concerns Assessment Noted Time PHQ-9 Depression Total Score: 6 05/08/19 23 10:33 AM EST documented as of this encounter Care Teams Power And Recovery Superintendent Relationship Specialty Start Date End Date Nathalie Hsu MD 230 [place] [address] PCP - General Family Medicine 09/27/13 Shannan Barrow, KHAI 230 [place] [address] Registered Nurse 02/29/24 Lisbeth Johnson [address] 3rd [place] [address] Gastroenterology 03/15/24 Tonya Poole Homicide DetectiveCaser 01/19/24 Raman ([facility]) Registered Nurse 02/29/24 Marcos Verdin MD [place] [facility] [address] [place] [address] Cardiology 03/10/24 Omid Vincent Psychiatry 03/15/24 documented as of this encounter
--- OUTSIDE RECORDS SUMMARY | 2024-04-28 16:08 | XMS_ITS | Encounter Summary ---
Author Organization [employer] [facility] Address [address] [facility] 7t [place] [address] Care Team Providers Care Chief Cardiopulmonary Technologist Name Role Phone Nathalie Hsu MD Primary Care Provider + [phone] Shannan Barrow RN Unavailable [phone] Lisbeth Johnson Unavailable Encounter Details Date Type Department Care Team (Late st Contact Info) Description 04/01/2022 Orders Only [facility] MEDICINE 230 [place] [address] Anabell Weston, KHAI Social History Tobacco Use Types Packs/Day Years Used Date Smoking Tobacco: Never Assessed Sex and Gender Information Value Date Recorded Sex Assigned at Male 02/02/2022 10:17 AM EDT Legal Sex Male 10:17 AM EDT Gender Identity Male 02/02/2022 10:17 AM EDT Sexual Orientation Straight 02/02/2022 10 :17 AM EDT documented as of this encounter Plan of Treatment Not on file documented as of this encounter Visit Diagnoses Not on filedocumented in this encounter Care Teams Chief Cardiopulmonary Technologist Relationship Specialty Start Date End Date Nathalie Hsu MD [address] [place] [phone] PCP - General Family Medicine 09/27/13 Shannan Barrow, RN [address] [place] [address] [phone] Registered Nurse 02/29/24 Lisbeth Johnson [address] [place] [address] 3rd [place], [place] [phone] Gastroenterology 03/15/24 Tonya Poole Zigzag TopstitcherChief Deputy Clerk/Bailiff 01/19/24 Raman ([facility]) Registered Nurse 02/29/24 MD [place] [facility] [address] [place] [address] [place] Cardiology 03/10/24 Omid Vincent Psychiatry 03/15/24 documented as of this encounter
--- OUTSIDE RECORDS SUMMARY | 2024-04-28 16:08 | XMS_ITS | Encounter Summary ---
Author Organization [employer] Address [address] [address] 7t [place] [address] Care Team Providers Care Hat Blocking Machine Operator Name Role Phone Nathalie Hsu MD Primary Care Provider [phone] Shannan Barrow RN Unavailable [phone] Lisbeth Johnson Unavailable Reason for Visit * Reason Onset Date Comments Med Refill 03/09/2024 Encounter Details Date Type Department Care Team (Late st Contact Info) Description 03/09/2024 Telephone [facility] MEDICINE 230 [place], [place] [phone] Nathalie Hsu MD 230 [place], [place] [phone] Med Refill Social History Tobacco Use Types Packs/Day Years [...] encounter Miscellaneous Notes * Telephone Encounter - Bethany Roberson LPN - 03/09/2024 9:13 AM EST Medication was sent to [facility] on 12/13/23 #60 with 3 refills. * Telephone Encounter - Alf Avilez - 03/09/2024 9:07 AM EST TC from pt requesting medication refill. Medications needing refill : melatonin 5 MG tablet To be sent to: [facility] documented in this encounter Plan of Treatment Not on file documented as of this encounter Visit Diagnoses Not on filedocumented in this encounter Additional Health Concerns Assessment Noted Time PHQ-9 Depression Total Score: 0 06/09/19 9:13 AM EST documented as of this encounter Care Teams Hat Blocking Machine Operator Relationship Specialty Start Date End Date Nathalie Hsu MD [address] [place] [address] PCP - General Family Medicine 09/27/13 Shannan Barrow, RN [address] [place] [address] Registered Nurse 02/29/24 Lisbeth Johnson [address] [place] [address] 3rd [place] [address] Gastroenterology 03/15/24 Tonya Poole China DecoratorDeliver Driver 01/19/24 Raman ([facility]) Registered Nurse 02/29/24 Marcos Verdin MD [place] [facility] [address] [place] [address] Cardiology 03/10/24 Omid Vincent Psychiatry 03/15/24 documented as of this encounter
--- OUTSIDE RECORDS SUMMARY | 2024-04-28 16:08 | XMS_ITS | Encounter Summary ---
Author Organization [facility] Address [address] 7t [place] [address] Care Team Providers Care Lead Tank Mechanic Name Role Phone Nathalie Hsu MD Primary Care Provider [phone] Shannan Barrow RN Unavailable [phone] Lisbeth Johnson Unavailable Encounter Details Date Type Department Care Team (Late st Contact Info) Description 04/14/2024 Orders Only GENERIC EXTERNAL DATA DEPARTMENT Provider, Generic External Data Alcoholic liver disease (CMS/HCC) (Primary Dx) Social History Tobacco Use Types Packs/Day Years [...] the past 12 months, has t he [employer], [employer], oil or water [employer] threatened to shut off services in your [...] Procedure Name Priority Date/Time Associated Diagnosis Comments DRUG MONITORING, PHOSPHATIDYLETHANOL (PETH), BLOOD Routine 04/14/2024 1:41 PM EST Alcoholic liver disease (CMS/HCC) ALPHA FETOPROTEIN, TUMOR MARKER Routine 04/14/2024 1:41 PM EST Alcoholic liver disease (CMS/HCC) PROTHROMBIN TIME-INR Routine 04/14/2024 1:41 PM EST CBC Routine 04/14/2024 1:41 PM EST COMPREHENSIVE METABOLIC PANEL Routine 04/14/2024 1:41 PM EST US ABDOMEN COMPLETE Routine 04/14/2024 1 :04 PM EST documented in this encounter Results * Drug Monitoring, Phosphatidylethanol (PEth), Blood (04/14/2024 1:41 PM EST) Phosphatidylethanol, Blood NEGATIVE [facility] Comment:REFERENCE RANGE: <20 ng/mLTHIS TEST PERFORMED AT:[facility] [id number] [place], [place] [phone] DIRECTOR: SERAFIN YUSUF MD, PHD [facility] 16:0/18:2 (PLPEth) NEGATIVE [facility] Comment:REFERENCE RANGE: <20 ng/mLTHIS TEST PERFORMED AT:[employer] [facility]age Wireless GroupSELECT [facility] [id number] [place], [place] [phone] DIRECTOR: SERAFIN YUSUF MD, PHD [facility] Comments SEE NOTE [facility] Comment:This drug testing is for medical treatment only.Analysis was performed as non-forensic testing andthese results should be used only by healthcareproviders to render diagnosis or treatment, or tomonitor progress of medical conditions.LDT Notes:Confirmation tests were developed and their analyticalperformance characteristics have been determined by[employer]. It has not been cleared or approvedby the FDA. This assay has been validated pursuant tothe CLIA regulations and is used for clinical purposes.Healthcare Providers needing Interpretation assistance,please contact us at [phone] ( )M-F, 8am to 10pm ESTTHIS TEST PERFORMED AT:[facility] [address] [phone] DIRECTOR: KEENAN DOWNS MD 04/14/2024 1:41 PM EST 04/14/2024 1:41 PM EST us Generic External Data Provider LAB BLOOD ORDERAB LES Final Result [facility] [address] [place] [address] [phone] * Alpha-Fetoprotein, Tumor Marker (04/14/2024 1:41 PM EST) Alpha Fetoprotein 4.7 <6.1 ng/mL [facility] Comment:This test was perfor med using the Lavon Coulterchemiluminescent method. Values obtained fromdifferent assay methods cannot be usedinterchangeably. AFP levels, regardless ofvalue, should not be interpreted as absoluteevidence of the presence or absence of disease.THIS TEST WAS PERFORMED AT:[facility] [place] [phone] DOWNS MD 04/14/2024 1:41 PM EST 04/14/2024 1:41 PM EST us Generic External Data Provider LAB BLOOD ORDERAB LES Final Result [facility] [address] [place] [address] [phone] * (ABNORMAL) Comprehensive Metabolic Panel (04/14/2024 1:41 PM EST) Sodium 138 135 - 145 mmol/L [facility] Potassium 4.1 3.3 - 5.1 mmol/L [facility] Chloride 112(H) 96 - 108 mmol/L [facility] Carbon Dioxide 20(L) 22 - 29 mmol/L [facility] Anion Gap 10(L) 12 - 20 [facility] Urea Nitrogen (BUN) 20(H) 9 - 16 mg/dL [facility] Creatinine, Serum 1.16 0.5 - 1.4 mg/dL [facility] Estimated Glomerular Filt Rate >60 [facility] Comment:Chronic Kidney Disea se: Estimated GFR < 60 mL/min/1.54f5Odzkqb Kidney Disease: Estimated GFR < 15 mL/min/1.73m2 Glucose 89 60 - 115 mg/dL [facility] Calcium 9.1 8.4 - 10.2 mg/dL [facility] Bilirubin, Total 1.6(H) 0.0 - 1.0 mg/dL [facility] Aspartate Amino Transferase 35 5 - 37 U/L [facility] Alanine Aminotransferase 28 0 - 40 U/L [facility] Total Protein 8.7(H) 6.5 - 8.0 g/dL [facility] Albumin Level 3.8 3.5 - 5.0 g/dL [facility] Alkaline Phosphatase 146(H) 39 - 117 U/L [facility] 04/14/2024 1:41 PM EST 04/14/2024 1:41 PM EST Generic External Data Provider LAB BLOOD ORDERAB LES Final Result Performing Organization Address [facility] Co de Phone Number [facility] [address] [place] [phone] * (ABNORMAL) Prothrombin Time-INR (04/14/2024 1:41 PM EST) Prothrombin Time 31.9(H) 10.9 - 12.4 SEC [facility] INTERNATIONAL NORM RATIO 2.7(H) 0.9 - 1.1 [facility] Comment:INTERNATIONAL NORMAL IZED RATIO (INR) REFERENCE RANGES Reference RangeFor patients not on anticoagulant therapy: 0.9 - 1.1INR ranges for oral anticoagulanttherapy:For prevention and treatment of venous thrombosis and pulmonary embolism: 2.0 - 3.0For acute myocardial infarction with aspirin therapy: 2.0 - 3.0For acute myocardial infarction without aspirin therapy: 3.0 - 4.0For patients with mechanical prosthetic heart valves: 2.5 - 3.5 04/14/2024 1:41 PM EST 04/14/2024 1:41 PM EST [employer] External Data Provider LAB BLOOD ORDERAB LES Final Result Performing Organization Address [facility] Co de Phone Number [facility] [address] [place] [phone] * (ABNORMAL) CBC (04/14/2024 1:41 PM EST) White Blood Count 9.7 4.8 - 10.8 X10*3/uL [facility] Red Blood Count 4.32(L) 4.60 - 5.80 X10*6/uL [facility] Hemoglobin 13.6(L) 14.0 - 18.0 g/dl [facility] Hematocrit 40.6(L) 42.0 - 52.0 % [facility] Mean Corpuscular Volume 94.0 80.0 - 98.0 fL [facility] Mean Corpuscular Hemoglobin 31.5 27.0 - 33.0 pg [facility] Mean Corpuscular HGB Conc 33.5 31.0 - 36.0 g/dl [facility] Red Cell Distribution Width 17.2(H) 11.0 - 16.0 % [facility] Platelet Count 271 160 - 400 X10*3/uL [facility] Mean Platelet Volume 8.7(L) 9.4 - 12.4 fL [facility] NRBC Pct Auto 0.0 0.0 - 0.2 /100WBC [facility] NRBC Abs Auto 0.000 0.0 - 0.012 X10*3/uL [facility] 04/14/2024 1:41 PM EST 04/14/2024 1:41 PM EST us Generic External Data Provider LAB BLOOD ORDERAB LES Final Result Performing Organization Address City/State/[facility] Co de Phone Number [facility] [address] [place] [address] [phone] * US Abdomen Complete (04/14/2024 1:04 PM EST) Anatomical Region Laterality Modality Abdomen Ultrasound 04/14/2024 1:04 PM EST Narrative 04/17/2024 3:52 PM EST ? [facility] ?[address] ?[place] [address] ? Ultrasound Report ? Signed ? Patient: Omid Caballero ?MR#: [id number] ?? 14 ? : 1960 ?Acct:[id number] ? Age/Sex: 64 / M ?ADM Date: 01/10/25 ? Loc: HO.US ? Attending Dr: Lisbeth Johnson MD ? Ordering Physician: Lisbeth Johnson MD ?? Date of Service: 04/14/24 ?? Procedure(s): US abdomen complete ?? Accession Number(s): [id number] ? cc: Nathalie Hsu MD; Lisbeth Johnson [...] DD/ 1304 ? TD/TT: 04/14/24 1319 ? Respite Coordinator: ? Procedure Note Donotuseinterpreter, Image - 04/17/2024 [place] [address] Ultrasound Report Signed Patient: Mandi Caballero#: [id number] 14 : 1Acct:[id number] Age/Sex: 64 / MADM Date: 04/14/24 Loc: HO.US Attending Dr: Lisbeth Johnson MD Ordering Physician: Lisbeth Johnson MD Date of Service: 04/14/24 Procedure(s): US abdomen complete Accession Number(s): [id number] cc: Nathalie Hsu MD; Lisbeth Johnson MD [...] by: Keron Herrera MD 04/17/2024 03:49 PM EST Dictated By: Keron Herrera MD Signed By: <Electronically signed by Keron Herrera MD in OV> 04/17/24 1549 DD/ 1304 TD/TT: 04/14/24 1319 Respite Coordinator: [facility] External Provider IMG US PROCEDURES Final Result documented in this encounter Visit Diagnoses Diagnosis Alcoholic liver disease (CMS/HCC)- Primary Unspecified alcoholic liver damage documented in this encounter Additional Health Concerns Assessment Noted Time PHQ-9 Depression Total Score: 0 06/09/19 9:13 AM EST documented as of this encounter Care Teams Lead Tank Mechanic Relationship Specialty Start Date End Date Nathalie Hsu MD [address] [place] [address] PCP - General Family Medicine 09/27/13 Shannan Barrow, RN [address] [place] [address] Registered Nurse 02/29/24 Lisbeth Johnson [address] [place] [address] 3rd [place] [address] Gastroenterology 03/15/24 Tonya Poole Magazine PublisherArmored Car Guard 01/19/24 Raman ([facility]) Registered Nurse 02/29/24 Marcos Verdin MD [place] [facility] [address] [place] [address] Cardiology 12/6/Florecita Vincent Psychiatry 03/15/24 documented as of this encounter
--- OUTSIDE RECORDS SUMMARY | 2024-04-28 16:08 | XMS_ITS | Encounter Summary ---
Author Organization [facility] Address [address] 7t [place] [address] Care Team Providers Care Fiscal Assistant Name Role Phone Nathalie Hsu MD Primary Care Provider +1- [phone] Shannan Barrow RN Unavailable [phone] Lisbeth Johnson Unavailable Encounter Details Date Type Department Care Team (Late st Contact Info) Description 08/11/2023 Telephone [facility] MEDICINE 230 [place], [place] [phone] Nathalie Hsu MD 230 [place], [place] [phone] Social History Tobacco Use Types Packs/Day Years [...] documented as of this encounter Care Teams Fiscal Assistant Relationship Specialty Start Date End Date Nathalie Hsu MD 230 [place] [address] PCP - General Family Medicine 09/27/13 Shannan Barrow, KHAI 230 [place] [address] Registered Nurse 02/29/24 Lisbeth Johnson [address] 3rd [place] [address] Gastroenterology 03/15/24 Tonya Poole TunnellerCad Cam Programmer 01/19/24 Raman (JASMEETA [facility]) Registered Nurse 02/29/24 Marcos Verdin MD [place] [facility] [address] [place] [address] Cardiology 03/10/24 Omid Vincent Psychiatry 03/15/24 documented as of this encounter
--- OUTSIDE RECORDS SUMMARY | 2024-04-28 16:08 | XMS_ITS | Encounter Summary ---
Author Organization [employer] Address [address] 7t [place] [address] Care Team Providers Care Accessories Repairer Name Role Phone Nathalie Hsu MD Primary Care Provider +1- [phone] Shannan Barrow RN Unavailable [phone] Lisbeth Johnson Unavailable Reason for Visit * Reason Comments Med Refill Encounter Details Date Type Department Care Team (Late st Contact Info) Description 04/12/2024 Refill [facility] MEDICINE 230 [place], [place] [phone] Nathalie Hsu MD 230 [place], [place] [phone] Mild intermittent asthma without complication Social History Tobacco Use Types Packs/Day Years [...] as of this encounter Visit Diagnoses Diagnosis Mild intermittent asthma without complication documented in this encounter Additional Health Concerns Assessment Noted Time PHQ-9 Depression Total Score: 0 06/09/19 24 9:13 AM EST documented as of this encounter Care Teams Accessories Repairer Relationship Specialty Start Date End Date Nathalie Hsu MD 230 [place] [address] PCP - General Family Medicine 09/27/13 Shannan Barrow, KHAI 230 [place] [address] Registered Nurse 02/29/24 Lisbeth Johnson [address] [place] [address] Drive 3rd [place] [address] Gastroenterology 03/15/24 Tonya Poole Solar TechnicianTour Narrator 01/19/24 [facility] Registered Nurse 02/29/24 Marcos Verdin MD [place] [facility] [address] [place] [address] Cardiology 03/10/24 Omid Vincent Psychiatry 03/15/24 documented as of this encounter
--- OUTSIDE RECORDS SUMMARY | 2024-04-28 16:08 | XMS_ITS | Encounter Summary ---
Author Organization [employer] Address [address] 7t [place] [address] Care Team Providers Care Bus Driver/Monitor Name Role Phone Nathalie Hsu MD Primary Care Provider [phone]- [phone] Shannan Barrow RN Unavailable [phone] Lisbeth Johnson Unavailable Reason for Visit * Reason Onset Date Comments Med Refill 07/01/2023 Encounter Details Date Type Department Care Team (Late st Contact Info) Description 07/01/2023 Telephone [facility] MEDICINE 230 [place], [place] [phone] Nathalie Hsu MD 230 [place], [place] [phone] Med Refill Social History Tobacco Use Types [...] the past 12 months, has t he [employer], gas, oil or water [employer] threatened to shut off services in your [...] Telephone Encounter - Bethany Roberson LPN - 07/01/2023 9:11 AM EDT Medication was sent to [facility] on 03/03/23 90 day supply with 1 refill. * Telephone Encounter - Amie Ramsey - 07/01/2023 9:06 AM EDT TC from pt requesting medication refill. Medications needing refill : pantoprazole (ProtoNix) 40 MG EC tablet To be sent to: [facility] - [place], [place] - [address] [facility] [address] [facility] [id number] documented in this encounter Plan of Treatment Not on file documented as of this encounter Visit Diagnoses Not on filedocumented in this encounter Additional Health Concerns Assessment Noted Time PHQ-9 Depression Total Score: 0 06/09/19 24 9:13 AM EST documented as of this encounter Care Teams Bus Driver/Monitor Relationship Specialty Start Date End Date Nathalie Hsu MD 230 [place] [address] PCP - General Family Medicine 09/27/13 Shannan Barrow, RN 230 [place] [address] Registered Nurse 02/29/24 Lisbeth Johnson [address] [place] [address] Drive 3rd [place] [address] Gastroenterology 03/15/24 Tonya Poole Line InstallerSenior Chemical Process Engineer 01/19/24 Raman ([facility]) Registered Nurse 02/29/24 Marcos Verdin MD [facility] [address] [place] [address] Cardiology 03/10/24 Omid Vincent Psychiatry 03/15/24 documented as of this encounter
--- OUTSIDE RECORDS SUMMARY | 2024-04-28 16:08 | XMS_ITS | Encounter Summary ---
Author Organization [employer] Address [address] 7t [place] [address] Care Team Providers Care Grades 7 And 8 Teacher Name Role Phone Nathalie Hsu MD Primary Care Provider [phone]- [phone] Shannan Barrow RN Unavailable [phone] Lisbeth Johnson Unavailable Reason for Visit * Reason Onset Date Comments Anticoagulation 04/11/2024 Encounter Details Date Type Department Care Team (Late st Contact Info) Description 04/11/2024 Telephone [facility] MEDICINE 230 [place], [place] [phone] Nathalie Hsu MD 230 [place], [place] [phone] Anticoagulation Social History Tobacco Use Types Packs/Day [...] Telephone Encounter - Shannan Barrow RN - 04/11/2024 3:07 PM EST S: Pt is due for PT/INR today due to hx of DVT's. Pt's target INR is 2.5-3.5. This RN spoke with KAVIN Duff who denies any new medications or changes in diet. Pt has been compliant with INR draws. Sherin reports that she believes pt missed a dose, but he won't admit it . O: INR today is: 2.1. Pt current dose is 5mg Th, Benoit/ 2.5mg the rest of the week. A: Hx of DVT Risk for blood clot due to sub therapeutic INR Hx of afib Hx of prosthetic heart valve P: Pt is to take 5mg Tu/ / Benoit/ 2.5mg the rest of the week and repeat INR 04/18/24. [facility] aware of dosing and draw date. Shannan Barrow RN * Telephone Encounter - Theresa Stover RN - 04/11/2024 2:17 PM EST Incoming call to the Critical Result line 04/11/24 at 2:18 PM Name of Caller/Facility:[facility] [employer] Callback number: [phone] Reason for Call: INR 2.1 Message to be forwarded to Nathalie Hsu MD and team nurses for follow up. documented in this encounter Plan of Treatment Not on file documented as of this encounter Procedures Procedure Name Priority Date/Time Associated Diagnosis Comments PROTHROMBIN TIME-INR Routine 04/11/2024 documented in this encounter Results * (ABNORMAL) Prothrombin Time-INR (04/11/2024) INR 2.10(L) 2.50 - 3.50 EXTERNAL LAB Protime EXTERNAL LAB Blood Venous blood specimen / Unknown Nathalie Hsu MD LAB BLOOD ORDERABLES Final Result EXTERNAL LAB documented in this encounter Visit Diagnoses Diagnosis History of prosthetic heart valve documented in this encounter Additional Health Concerns Assessment Noted Time PHQ-9 Depression Total Score: 0 06/09/19 24 9:13 AM EST documented as of this encounter Care Teams Grades 7 And 8 Teacher Relationship Specialty Start Date End Date Nathalie Hsu MD 230 [place] [address] PCP - General Family Medicine 09/27/13 Shannan Barrow, KHAI 230 [place] [address] Registered Nurse 02/29/24 Lisbeth Johnson [address] 3rd [place] [address] Gastroenterology 03/15/24 Tonya Poole Ict Business Development ManagerTube Rebuilder 01/19/24 Raman ([facility]) Registered Nurse 02/29/24 Marcos Verdin MD [place] [facility] [address] [place] [address] Cardiology 03/10/24 Omid Vincent Psychiatry 03/15/24 documented as of this encounter
--- OUTSIDE RECORDS SUMMARY | 2024-04-28 16:08 | XMS_ITS | Encounter Summary ---
Author Organization [employer] [facility] Address [address] 7t [place] [address] Care Team Providers Care Vision Mixer Name Role Phone Nathalie Hsu MD Primary Care Provider [phone]- [phone] Shannan Barrow RN Unavailable [phone] Lisbeth Johnson Unavailable Encounter Details Date Type Department Care Team (Late st Contact Info) Description 11/27/2022 Orders Only [facility] MEDICINE 230 [place] [address] Jose Dockery 230 [place] [address] Social History Tobacco Use Types Packs/Day Years [...] documented as of this encounter Care Teams Vision Mixer Relationship Specialty Start Date End Date Nathalie Hsu MD [address] [place] [address] PCP - General Family Medicine 09/27/13 Shannan Barrow, RN 230 [place] [address] Registered Nurse 02/29/24 Lisbeth Johnson [address] 3rd [place] [address] Gastroenterology 03/15/24 Tonya Poole Tow Truck DispatcherLivery Car Driver 01/19/24 Raman ([facility]) Registered Nurse 02/29/24 Marcos Verdin MD [facility] [address] [place] [address] Cardiology 03/10/24 Omid Vincent Psychiatry 03/15/24 documented as of this encounter
--- OUTSIDE RECORDS SUMMARY | 2024-04-28 16:08 | XMS_ITS | Encounter Summary ---
Author Organization [employer] [facility] Address [address] 7t [place] [address] Care Team Providers Care Trail Maintenance Worker Name Role Phone Nathalie Hsu MD Primary Care Provider [phone]- [phone] Shannan Barrow RN Unavailable [phone] Lisbeth Johnson Unavailable Reason for Visit * Reason Comments Med Refill Encounter Details Date Type Department Care Team (Late st Contact Info) Description 04/11/2024 Refill [facility] 230 [place], [place] [phone] Nathalie Hsu MD 230 [place], [place] [phone] Anemia, unspecified type Social History Tobacco Use Types Packs/Day Years [...] as of this encounter Visit Diagnoses Diagnosis Anemia, unspecified type documented in this encounter Additional Health Concerns Assessment Noted Time PHQ-9 Depression Total Score: 0 06/09/19 24 9:13 AM EST documented as of this encounter Care Teams Trail Maintenance Worker Relationship Specialty Start Date End Date Nathalie Hsu MD 230 [place] [address] PCP - General Family Medicine 09/27/13 Shannan Barrow, KHAI 230 [place] [address] Registered Nurse 02/29/24 Lisbeth Johnson [address] [place] [address] Drive 3rd [place] [address] Gastroenterology 03/15/24 Tonya Poole Open Hearth Stockyard SupervisorLearning And Development Coordinator 01/19/24 [facility] Registered Nurse 02/29/24 Marcos Verdin MD [place] [facility] [address] [place] [address] Cardiology 03/10/24 Omid Vincent Psychiatry 03/15/24 documented as of this encounter
--- OUTSIDE RECORDS SUMMARY | 2024-04-28 16:08 | XMS_ITS | Encounter Summary ---
Author Organization [employer] Address [address] 7t [place] [address] Care Team Providers Care Acid Purifier Name Role Phone Nathalie Hsu MD Primary Care Provider [phone]- [phone] Shannan Barrow RN Unavailable [phone] Lisbeth Johnson Unavailable Reason for Visit * Reason Onset Date Comments Coagulation Disorder 05/12/2023 Encounter Details Date Type Department Care Team (Late st Contact Info) Description 05/12/2023 Telephone [facility] 230 [place], [place] [phone] Nathalie Hsu MD 230 [place], [place] [phone] Coagulation Disorder Social History Tobacco Use Types Packs/Day Years [...] encounter Miscellaneous Notes * Telephone Encounter - Gali Alejandre - 05/12/2023 3:27 PM EST Tc from raman (KAVIN) calling to report INR. Please contact raman at [phone] documented in this encounter Plan of Treatment Not on file documented as of this encounter Visit Diagnoses Not on filedocumented in this encounter Additional Health Concerns Assessment Noted Time PHQ-9 Depression Total Score: 6 05/08/19 23 10:33 AM EST documented as of this encounter Care Teams Acid Purifier Relationship Specialty Start Date End Date Nathalie Hsu MD [address] [place] [address] PCP - General Family Medicine 09/27/13 Shannan Barrow, RN [address] [place] [address] Registered Nurse 02/29/24 Lisbeth Johnson [address] [place] [address] 3rd [place] [address] Gastroenterology 03/15/24 Tonya Poole Data LeadAuto Air Conditioning Mechanic 01/19/24 Raman ([facility]) Registered Nurse 02/29/24 MD [place] [facility] [address] [place] [address] Cardiology 03/10/24 Omid Vincent Psychiatry 03/15/24 documented as of this encounter
--- OUTSIDE RECORDS SUMMARY | 2024-04-28 16:08 | XMS_ITS | Encounter Summary ---
Author Organization [employer] Address [address] 7t [place] [address] Care Team Providers Care Hog Grader Name Role Phone Nathalie Hsu MD Primary Care Provider [phone]- [phone] Shannan Barrow RN Unavailable [phone] Lisbeth Johnson Unavailable Reason for Visit * Reason Onset Date Comments Medication Question 02/18/2023 Encounter Details Date Type Department Care Team (Late st Contact Info) Description 02/18/2023 Telephone [facility] MEDICINE 230 [place], [place] [phone] Nathalie Hsu MD 230 [place], [place] [phone] Medication Question Social History Tobacco Use Types Packs/Day Years Used Date Smoking Tobacco: Every Day Cigarettes Passive Smoke Exposure: Current Smokeless Tobacco: Never Alcohol Answer Date Recorded Frequency of Alcohol [...] * Telephone Encounter - Eliazar Gan - 02/18/2023 9:19 AM EST Tc from [email or web address] requesting to speak to a nurse in regards to medication warfarin (Coumadin) 5 MG tablet, states would need clarification on directions due to pt INR. Please contact at [phone] documented in this encounter Plan of Treatment Not on file documented as of this encounter Visit Diagnoses Not on filedocumented in this encounter Additional Health Concerns Assessment Noted Time PHQ-9 Depression Total Score: 6 05/08/19 23 10:33 AM EST documented as of this encounter Care Teams Hog Grader Relationship Specialty Start Date End Date Nathalie Hsu MD 230 [place] [address] PCP - General Family Medicine 09/27/13 Shannan Barrow RN 230 [place] [address] Registered Nurse 02/29/24 Lisbeth Johnson [address] [facility] 3rd [place] [address] Gastroenterology 03/15/24 Tonya Poole Sweat Box AttendantFinancial Service Rep 01/19/24 Raman ([facility]) Registered Nurse 02/29/24 Marcos Verdin MD [place] [facility] [address] [place] [address] Cardiology 03/10/24 Omid Vincent Psychiatry 03/15/24 documented as of this encounter
--- OUTSIDE RECORDS SUMMARY | 2024-04-28 16:08 | XMS_ITS | Encounter Summary ---
Author Organization [employer] Address [address] 7t [place] [address] Care Team Providers Care Bed Setter Name Role Phone Nathalie Hsu MD Primary Care Provider +1- [phone] Shannan Barrow RN Unavailable [phone] Lisbeth Johnson Unavailable Reason for Visit * Reason Comments Med Refill Encounter Details Date Type Department Care Team (Late st Contact Info) Description 11/01/2023 Refill [facility] [address] [place], [place] [phone] Nathalie Hsu MD 230 [place], [place] [phone] Mild intermittent asthma, unspecified whether complicated Social [...] the past 12 months, has t he [employer], gas, 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 threatened to [...] this encounter Visit Diagnoses Diagnosis Mild intermittent asthma, unspecified whether complicated documented in this encounter Additional Health Concerns Assessment Noted Time PHQ-9 Depression Total Score: 0 06/09/19 24 9:13 AM EST documented as of this encounter Care Teams Bed Setter Relationship Specialty Start Date End Date Nathalie Hsu MD 230 [place] [address] PCP - General Family Medicine 09/27/13 Shannan Barrow, KHAI [address] [place] [address] Registered Nurse 02/29/24 Lisbeth Johnson [address] 3rd [place] [address] Gastroenterology 03/15/24 Tonya Poole Electrician AssistantCard Folder 01/19/24 Raman ([facility]) Registered Nurse 02/29/24 Marcos Verdin MD [place] [facility] [address] [place] [address] Cardiology 03/10/24 Omid Vincent Psychiatry 03/15/24 documented as of this encounter
--- OUTSIDE RECORDS SUMMARY | 2024-04-28 16:08 | XMS_ITS | Encounter Summary ---
Author Organization [employer] Address [address] 7t [place] [address] Care Team Providers Care Turning Machine Set Up Operator Name Role Phone Nathalie Hsu MD Primary Care Provider [phone]- [phone] Shannan Barrow RN Unavailable [phone] Lisbeth Johnson Unavailable Reason for Visit * Reason Comments Med Refill Encounter Details Date Type Department Care Team (Late st Contact Info) Description 02/28/2023 Refill [facility] MEDICINE 230 [place], [place] [phone] Nathalie Hsu MD 230 [place], [place] [phone] Social History Tobacco Use Types Packs/Day Years [...] documented as of this encounter Care Teams Turning Machine Set Up Operator Relationship Specialty Start Date End Date Nathalie Hsu MD 230 [place] [address] PCP - General Family Medicine 09/27/13 Shannan Barrow, KHAI 230 [place] [address] Registered Nurse 02/29/24 Lisbeth Johnson [address] [place] [address] 3rd [place] [address] Gastroenterology 03/15/24 Tonya Poole Cashier AssociateCasting Associate 01/19/24 Raman ([facility]) Registered Nurse 02/29/24 Marcos Verdin MD [place] [facility] [address] [place] [address] Cardiology 03/10/24 Omid Vincent Psychiatry 03/15/24 documented as of this encounter
== END 2024-04-28 16:01 | disposition home or self-care (01) ==
PROVIDERS: PCP Family Medicine; Visit Provider Internal Medicine
DX: K72.90 Hepatic failure, unspecified without coma (principal); K74.60 Unspecified cirrhosis of liver; D64.9 Anemia, unspecified; F10.20 Alcohol dependence, uncomplicated
CPT/HCPCS: 99214

== ENCOUNTER → 2024-04-28 14:42 | Outpatient (BNVA) | payer MEDICAID, SELFPAY | PROVIDERS: PCP Family Medicine; Visit Provider Internal Medicine | DX: K74.60 Unspecified cirrhosis of liver (principal); D64.9 Anemia, unspecified; I25.10 Atherosclerotic heart disease of native coronary artery without angina pectoris; Z55.6 Problems related to health literacy; M62.84 Sarcopenia; R54 Age-related physical debility; I42.9 Cardiomyopathy, unspecified; F10.20 Alcohol dependence, uncomplicated; Z79.01 Long term (current) use of anticoagulants; Z95.2 Presence of prosthetic heart valve | CPT/HCPCS: 99212 ==

== ENCOUNTER → 2024-05-04 13:53 | Outpatient (REF) | payer MEDICAID, SELFPAY ==
--- NOTE | 2024-05-04 13:56 | CA_ITS ---
Transthoracic Echocardiogram Patient (Last, First, Middle): Omid Caballero, Gender: Male Date of : 1960 Age: 64 Procedure Date: 05/04/2024 Procedure Type: Transthoracic Echocardiogram Location: OP Height: 167.64 cm Weight: 108.01 kg BSA: 2.15 m2 Heart Rate: 77 bpm BP: 140 / 70 mmHg Blocking Machine Operator Second: BRE Referring MD: Lisbeth Johnson MD Symptoms: I42.9 - Cardiomyopathy, unspecified Study Quality: Fair ECG Rhythm: Sinus Conclusions: - The left ventricular systolic function is mildly decreased. The visually estimated ejection fraction is between 45-50%. - There is severely increased left ventricular wall thickness. - A bioprosthetic aortic valve is present. The prosthetic aortic valve appears to be functioning normally. - There is moderate mitral annular calcification. Findings Left Ventricle Normal left ventricular cavity size. There is severely increased left ventricular wall thickness. The left ventricular systolic function is mildly decreased. The visually estimated ejection fraction is between 45-50%. There is no evidence of regional wall motion abnormalities. Evidence suggests grade I (mild) diastolic dysfunction. Right Ventricle Moderately increased right ventricular cavity size. There is normal right ventricular systolic function. There is a pacemaker wire seen in the right ventricle. Atria Both atria are normal in size. Aortic Valve A bioprosthetic aortic valve is present. The prosthetic aortic valve appears to be functioning normally. There is no aortic valve regurgitation. Mitral Valve There is moderate mitral annular calcification. There is no mitral valve regurgitation. There is no mitral valve stenosis. Pulmonic Valve The pulmonic valve is likely normal. Tricuspid Valve There is mild tricuspid valve regurgitation. There is no evidence of pulmonary hypertension. Great Vessels The asc aorta is normal in size. Venous The inferior vena cava is normal in size and collapses greater than 50% with inspiration. Pericardium/Pleural There is no evidence of pericardial effusion. Prior Study Comparison No significant change compared to prior study dated: 05/21/2023. Measurements 2D Linear Measurements IVSd: 1.68 0.6-0.9/0.6-1.0 cm LVIDd: 4.32 3.9-5.3/4.2-5.9 cm LVIDd Index: 2.01 2.4-3.2/2.2-3.1 cm/m2 LVIDs: 3.25 2.0-3.6 cm LVPWd: 1.44 0.7-1.1 cm LA Diam: 3.60 2.7-3.8/3.0-4.0 cm LAIDs Index: 1.67 1.5-2.3 cm/m2 LV Mass: 344.46 67-162/88-224 g LV Mass Index: 160.21 43-95/49-115 g/m2 LVOT Diam: 2.00 3.0+(-)1.3 cm 2D Systolic Function EF 4C: 45.70 >55% EF 2C: 56.40 >55% EF BiP: 50.80 >55% Mitral Valve MV VTI: 0.24 MV Pk Jhonatan: 1.24 MV Mn Jhonatan: 0.86 MV Pk Grad: 6.00 MV Mn Grad: 3.00 MV Pk E: 0.87 MV PK A: 1.14 MV Decel Time: 119.00 E/A: 0.80 E'Lateral: 9.68 E'Medial: 5.11 E/E' Med: 17.10 E/E' Lat: 9.00 PHT: 35.00 MVA PHT: 6.29 MVA Continuity: 2.80 Decel [place]: 7.35 Aortic Valve AoV Pk Jhonatan: 2.27 AoV Mn Jhonatan: 1.43 AoV VTI: 0.42 AoV Pk Grad: 21.00 Aov Mn Grad: 10.00 DIEUDONNE Cont.VTI: 1.60 LVOT LVOT Pk Jhonatan: 0.94 LVOT Mn Jhonatan: 0.66 LVOT VTI: 0.21 LVOT Pk Grad: 4.00 LVOT Mn Grad: 2.00 LVOT Diam: 2.00 LVOT Area: 3.14 Diastolic Function MV Pk E: 0.87 MV Pk A: 1.14 E/A: 0.80 E'Medial: 5.11 E/E' Med: 17.10 E' Laterial: 9.68 E/E' Lat: 9.00 Right Ventricle TAPSE (mm): 20.40 TVS' Jhonatan: 11.90 Tricuspid Valve TR Pk Jhonatan: 2.17 TR Pk Grad: 19.00 RA Press: 3.00 RVSP: 22.00 Great Vessels Aorta Sinus of Valsalva: 3.60 2.0-3.5 cm Ao Asc: 3.30 2.1-3.4 cm Pulmonary Valve PV Pk Jhonatan: 1.18 Peak PV Grad: 6.00 Updated in Other Vendor System with Status of Final Mark He MD electronically signed on 05/06/2024 10:35:01 AM with status of Final
--- OUTSIDE RECORDS SUMMARY | 2024-05-04 17:46 | XMS_ITS | Encounter Summary ---
Author Organization [employer] Address [address] [place] [address] Care Team Providers Care National Park Ranger Name Role Phone Nathalie Hsu MD Primary Care Provider [phone] Shannan Barrow RN Unavailable [phone] Lisbeth Johnson Unavailable Reason for Visit * Reason Comments Med Refill Encounter Details Date Type Department Care Team (Late st Contact Info) Description 04/09/2024 Refill [facility] [address] [place], [place] [phone] Nathalie Hsu MD [address] [place], [place] [phone] Primary insomnia Social History Tobacco Use Types [...] as of this encounter Plan of Treatment Upcoming Encounters Date Type Department Care Team (Late st Contact Info) Description 06/08/2024 9:30 AM EST Office Visit [facility] [address] [place] [address] Panchito Lamas DDS [address] [place] [address] documented as of this encounter Visit Diagnoses Diagnosis Primary insomnia Persistent disorder of initiating or maintaining sleep documented in this encounter Additional Health Concerns Assessment Noted Time PHQ-9 Depression Total Score: 0 06/09/19 24 9:13 AM EST documented as of this encounter Care Teams National Park Ranger Relationship Specialty Start Date End Date Nathalie Hsu MD [address] [place] [id number] PCP - General Family Medicine 09/27/13 Shannan Barrow, KHAI [address] [place] [phone] Registered Nurse 02/29/24 Lisbeth Johnson [address]rd [place] [address] Gastroenterology 03/15/24 Tonya Virgilio Mileage ClerkWeld Fitter 01/19/24 Raman ([facility]) Registered Nurse 02/29/24 Marcos Verdin MD [facility] [address] [place] [address] Cardiology 03/10/24 Omid Vincent Psychiatry 03/15/24 documented as of this encounter
--- OUTSIDE RECORDS SUMMARY | 2024-05-04 17:46 | XMS_ITS | Encounter Summary ---
Author Organization [employer] [facility] [place] [facility] Address [address] [place] [address] Care Team Providers Care Cio Name Role Phone Nathalie Hsu MD Primary Care Provider [phone] Shannan Barrow RN Unavailable [phone] Lisbeth Johnson Unavailable Reason for Visit * Reason Comments Med Refill Encounter Details Date Type Department Care Team (Late st Contact Info) Description 04/11/2024 Refill [facility] [address] [place], [place] [phone] Nathalie Hsu MD [address] [place], [place] [phone] Anemia, unspecified type Social History Tobacco Use [...] Description 06/08/2024 9:30 AM EST Office Visit [facility] [address] [place] [address] Panchito Lamas DDS [address] [place] [address] documented as of this encounter Visit Diagnoses Diagnosis Anemia, unspecified type documented in this encounter Additional Health Concerns Assessment Noted Time PHQ-9 Depression Total Score: 0 06/09/19 24 9:13 AM EST documented as of this encounter Care Teams Cio Relationship Specialty Start Date End Date Nathalie Hsu MD [address] [place] [address] PCP - General Family Medicine 09/27/13 Shannan Barrow RN [address] [place] [id number] Registered Nurse 02/29/24 Lisbeth Johnson [address]rd [place] [address] Gastroenterology 03/15/24 Tonya Virgilio President [employer]er 01/19/24 Raman ([facility]) Registered Nurse 02/29/24 Marcos Verdin MD [facility] [address] [place] [address] Cardiology 03/10/24 Omid Vincent Psychiatry 03/15/24 documented as of this encounter
--- OUTSIDE RECORDS SUMMARY | 2024-05-04 17:46 | XMS_ITS | Clinical Summary ---
Author Organization [employer] Address [address] [facility] [address] [place] [address] Care Team Providers Care Design Drafter Name Role Phone Nathalie Hsu MD Primary Care Provider [phone] Shannan Barrow RN Unavailable [phone] Lisbeth Johnson Unavailable Allergies Active Allergy [...] daily. 90 capsule 3 03/10/20 24 Active lidocaine (Lidoderm) 5 [...] SWALLOW 10.2 g 2 04/13/19 25 Active lactulose (Chronulac) 10 GM/15ML solutionIndicati ons:Alcoholic liver disease (CMS/HCC) TAKE 30 ML BY MOUTH THREE TIMES DAILY 237 mL 3 05/04/19 25 Active amoxicillin (Amoxil) 500 MG capsule Take 1 capsule (500 mg) by mouth every 8 (eight) hours for 7 days. 21 capsule 05/03/19 25 025 Active chlorhexidine (Peridex) 0.12 % solution Swish 15 mL morning and night for 1 minute. Spit, do not swallow. Do not eat or drink for 30 minutes following use. 473 mL 05/03/19 25 Active acetaminophen (Tylenol) 500 MG tablet Take 1 tablet (500 mg) by mouth every 6 (six) hours if needed for mild pain for up to 20 doses. 20 tablet 05/03/19 25 Active melatonin 5 MG tabletIndication s:Primary [...] 10.2 g 2 01/31/20 24 025 Discontinued lactulose (Chronulac) 10 GM/15ML solutionIndicati ons:Alcoholic liver disease (CMS/HCC) Take 30 mL (20 g) by mouth 3 times daily. 237 mL 3 03/10/20 24 025 Discontinued budesonide-formo terol (Symbicort) 160-4.5 MCG/ACT inhalerIndicatio ns:Mild intermittent asthma without complication Inhale. 08/08/19 24 025 Discontinued Active Problems Problem Noted Date Diagnosed Date Dental abscess 05/03/2024 Dental caries 05/03/2024 Acute renal failure 01/19/2024 Overview (03/10/2024): Hx [...] 12/10/23 and INR was 13, transferred to [facility] Closed fracture of transvers e process [...] with patient. Alcoholic liver disease 10/20/2023 Overview (04/30/2024): Lab Results Component Value Date AST 35 04/14/2024 AST 97 (H) 03/10/2024 AST 21 08/10/2022 ALT 28 04/14/2024 ALT 84 (H) 03/10/2024 ALT 20 08/10/2022 ALT 22 08/22/2020 TOTALBILIRUB 1.6 (H) 04/14/2024 TOTALBILIRUB 7.1 (H) 03/10/2024 INR 2.10 (L) 04/25/2024 INR 2.7 (H) 04/14/2024 PLT 271 04/14/2024 [...] years Sex: Male at 04/14/2024 1:41 PM - Imaging: CT abd and pelv 09/15/23 showed liver is normal in size, shape, and attenuation. No focal hepatic lesion or biliary ductal dilatation is present. The gallbladder is unremarkable with no evidence of radiopaque gallstones, gallbladder wall thickening, or obvious pericholecystic inflammatory changes. - Compensated: yes - EGD: none -Dieretics: lasix 20mg daily, spironolactone 25mg daily -MELD score: 24 calculated 03/2024, (estimated 3 month mortality 19.6%) -Fib 4: 5.75 calculated 03/13/24 -Hepatocellular carcinoma screening: CT 09/15/23 -Varices screening: after cardiology eval -Hx encephalopathy: yes -Hx SBP: No -Rifaximin 550 BID started 04/2024 -Low sodium diet discussed. Avoid hepatotoxic agents. -Followed by: Building Maintenance Worker, Dr. Johnson: 03/15/24 at [facility] G[facility]: MELD 22 on most recent labs. INR high due to need for anticoagulation for mechanical valve. -Bilirubin has halved within 2 weeks which is excellent news. -Again strongly reviewed strict abstinence from etOH which hte pt has maintained so far. However, he unfortunately continues to smoke. Strongly counseled re that as well and [facility] be [facility]. -In terms of sarcopenia frailty, encouraged daily exercise even if starting with just 10 mins a day. Will nudge on nutritition referral. Plan: - Repeat MELD labs in 4 weeks - Nutrition and CCC referrals - Pt to bring his meds [...] normal. 0.8 cm simple cyst right kidney. -Note with Dr. Johnson 04/26/24 Pt with complex medical course in [facility] including ICU admission due to acute on [...] add a night time snack such as croatian yogurt, PB etc - Trolley Operator referral - CLose follow up in 2 weeks -GI note 04/28/24 - Clarified need for CCC and Trolley Operator referrals - Due for EGD/colo - needs repeat echo ordered to follow up on cardiomyopathy prev EF 20-25% - Will also confirm his OP sales order specialist for clearance - Pt reminded to bring home meds list - Repeat MELD labs in 3 months Assessment & Plan (03/13/2024 10:02 AM EST): [...] by: New appointment with GI 03/15/24 at [facility] Assessment & Plan (01/19/2024 9:14 [...] due after 03/03/2024 -eye care facilitated by [facility] -dental home is [facility] -health care proxy on file 02/08/2015, filed into [facility] on 06/09/23 Assessment & Plan (03/10/2024 9:55 PM EST): -next comprehensive annual evaluation due after 03/03/2024 -eye care facilitated by [facility] -dental home is [facility] care proxy on file 02/08/2015, filed into [employer] on 06/09/23 Assessment & Plan (01/19/2024 9:20 AM EDT): -next comprehensive annual evaluation due after 03/03/2024 -eye care facilitated by [facility] -dental home is [facility] care proxy on file 02/08/2015, filed into [employer] on 06/09/23 Assessment & Plan (12/27/2023 11:02 AM EDT): -next comprehensive annual evaluation due after 03/03/2024 -eye care facilitated by [facility] -dental home is [facility] care proxy on file 02/08/2015, filed into [employer] on 06/09/23 Assessment & Plan (10/22/2023 11:16 AM EDT): -next physical exam due after 03/03/2024 -eye care facilitated by [facility] -dental home is [facility] care proxy on file 02/08/2015, filed into [employer] on 06/09/23 Assessment & Plan (03/03/2023 9:35 AM EST): -next physical exam due after 03/03/2024 -eye care facilitated by -dental [facility] is History of GI bleed 03/03/2023 Overview (04/15/2023): -Hgb on admission 02/09/23 12.9. Baseline 11-. Hemocult was positive. Pt now back on Plavix and Coumadin per cardiology. -check CBC and iron studies -Advise follow up with GI to complete outpatient scope with Dr. Lisbeth Johnson. We left a message with their office 03/03/23 Assessment & Plan (03/10/2024 9:53 PM EST): -Hgb on admission 02/09/23 12.9. Baseline 11. Hemocult was positive. Pt now back on Plavix and Coumadin per cardiology. -check CBC and iron studies -Advise follow up with GI to complete outpatient scope with Dr. Lisbeth Johnson. We left a message with their office 03/03/23 Assessment & Plan (06/09/2023 9:44 AM EST): -Hgb on admission 02/09/23 12.9. Baseline 11. Hemocult was positive. Pt now back on Plavix and Coumadin per cardiology. -check CBC and iron studies -Advise follow up with GI to complete outpatient scope with Dr. Lisbeth Johnson. We left a message with their office 03/03/23 Assessment & Plan (03/03/2023 9:38 AM EST): -Hgb on admission 02/09/23 12.9. Baseline 11. Hemocult was positive. Pt now back on [...] entresto startd by cardiology 05/2022 -F/u with sales order specialist ANA Smith -furosemide 40 mg started during [...] entresto startd by cardiology 05/2022 -F/u with sales order specialist ANA Smith -furosemide 40 mg started during hospitalization 05/17/23, decreased to 20mg daily 02/2024 hospitalization -amlodipine 5mg discontinued during hospitalization 06/2023 -seen by Dr. Marcos Verdin MD 03/10/24 -continue metoprolol 100 mg daily per note, this was decreased to 25mg daily in hospital. Will contact cardiology to see correct dose. -Farxiga started 03/09/24 Assessment & Plan (10/22/2023 11:14 [...] entresto startd by cardiology 05/2022 -F/u with sales order specialist ANA Smith -Furosemide 40 mg started during [...] entresto startd by cardiology 05/2022 -F/u with sales order specialist ANA Smith -Furosemide 40 mg started during [...] entresto startd by cardiology 05/2022 -F/u with sales order specialist ANA Smith Assessment & Plan (06/03/2022 11:12 [...] entresto startd by cardiology 05/2022 -F/u with sales order specialist ANA Smith Assessment & Plan (05/07/2022 10:43 [...] daily, and amlodipine 2.5mg daily -F/u with sales order specialist ANA Smith -He is overdue for follow [...] (12/24/2022): -Hospitalized for subarachnoid hemorrhage 10/2021 at [facility] after fall in the setting of supratheraputic INR of 16 and heavy alcohol use. He was changed to lovenox but could not tolerate the injections. Back on coumadin with improved INRs. He is also on plavix. ER precautions discussed. Assessment & Plan (10/22/2023 11:16 AM EDT): -Hospitalized for subarachnoid hemorrhage 10/2021 at [facility] after fall in the setting of supratheraputic INR of 16 and heavy alcohol use. He was changed to lovenox but could not tolerate the injections. Back on coumadin with improved INRs. He is also on plavix. ER precautions discussed. Assessment & Plan (06/09/2023 9:36 AM EST): -Hospitalized for subarachnoid hemorrhage 10/2021 at [facility] after fall in the setting of supratheraputic INR of 16 and heavy alcohol use. He was changed to lovenox but could not tolerate the injections. Back on coumadin with improved INRs. He is also on plavix. ER precautions discussed. Assessment & Plan (08/11/2022 7:29 AM EDT): -Hospitalized for subarachnoid hemorrhage 10/2021 at [facility] after fall in the setting of supratheraputic INR of 16 and heavy alcohol use. He was changed to lovenox but could not tolerate the injections. Back on coumadin with improved INRs. He is also on plavix. ER precautions discussed. Assessment & Plan (06/03/2022 11:07 AM EST): -Hospitalized for subarachnoid hemorrhage 10/2021 at [facility] after fall in the setting of supratheraputic INR of 16 and heavy alcohol use. Now on Lovenox and clopidogrel. Assessment & Plan (05/07/2022 10:53 AM EST): Hospitalized for subarachnoid hemorrhage 10/2021 at [facility] after fall in the setting of [...] daily drinking and rum - established with [facility] because insurance no longer accepted by [facility]. -Patient followed at [facility] with Dr. Cristine Deleon DO, seen 06/09/23 [...] daily drinking and rum - established with [facility] because insurance no longer accepted by [facility]. -Patient followed at [facility] with Dr. Cristine Deleon DO, seen 06/09/23 [...] daily drinking and rum - established with [facility] because insurance no longer accepted by [facility]. -Patient followed at [facility] with Dr. Cristine Deleon DO, seen 06/09/23 [...] daily drinking and rum - established with [facility] because insurance no longer accepted by [facility]. -Patient followed at [facility] with Dr. Cristine Deleon DO, seen 06/09/23 [...] daily drinking and rum - established with [facility] because insurance no longer accepted by [facility]. -Patient followed at [facility] with Dr. Cristine Deleon DO, seen 06/09/23 [...] daily drinking and rum - established with [facility] because insurance no longer accepted by [facility]. Assessment & Plan (11/30/2022 8:51 PM EDT): hx of aortic stenosis s/p Aortic valve repair, hx of AF , cardiomyopathy with EF 25-30%, ,hx AAA repair, complete heart block s/p pacemaker,CAD s/P stent INR goal 2.5 to 3.5 -continue to f up with his sales order specialist-next apt w Dr Deleon is on 12/08/2022 - I called cards' office # [phone] and confirmed day and hour and gave [...] daily drinking and rum - Established with [facility] because insurance no longer accepted by [facility]. Assessment & Plan (06/03/2022 11:09 AM [...] ETOH with intracranial bleed. - established with [facility] because insurance no longer accepted by [facility]. Last seen 05/2022 recommending 4 week follow up Assessment & Plan (05/07/2022 10:46 AM EST): Hx [address] 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 No hx CABG. Pacemaker placed for AV radha block. -On Coumadin, managed by [facility]. - established with [facility] because insurance no longer accepted by [facility]. Presence of cardiac pacemaker 03/07/2014 Overview [...] as pharmacomtherapy, [facility] smoking cessation group, and [facility] pharmacy smoking cessation clinic -currently smoke [...] as pharmacomtherapy, [facility] smoking cessation group, and [facility] pharmacy smoking cessation clinic -currently smoke [...] as pharmacomtherapy, [facility] smoking cessation group, and [facility] pharmacy smoking cessation clinic -currently smoke [...] as pharmacomtherapy, [facility] smoking cessation group, and [facility] pharmacy smoking cessation clinic -currently smoke [...] interviewing done. Depressive disorder 09/14/2011 Overview (03/03/2023): Letty AMELIA. -Continue with therapist and psychiatrist. Assessment & Plan (01/19/2024 9:14 AM EDT): Denadore AMELIA. -Continue with therapist and psychiatrist. Assessment & Plan (10/22/2023 11:15 AM EDT): Denadore AMELIA. -Continue with therapist and psychiatrist. Assessment & Plan (06/09/2023 9:35 AM EST): Denadore AMELIA. -Continue with therapist and psychiatrist. Assessment & Plan (03/03/2023 9:40 AM EST): Denadore AMELIA. -Continue with therapist and psychiatrist. Assessment & Plan (08/11/2022 7:27 AM EDT): -He has been referred multiple times to behavior health and has varying degrees of engagement in the past. Letty CISNEROS. Hypertension 08/24/2011 Overview (03/10/2024): Multiple med changes, [...] discontinued in hosptial 06/2023 Assessment & Plan (10/22/2023 11:13 AM EDT): -Continue metoprolol ER 50mg, and amlodipine 2.5mg daily -lisinopril discontinued by cardiology and Entresto started 05/2022 -furosemide 40 mg started during hospitalization 05/17/23 -amlodipine discontinued in hosptial 06/2023 Assessment & Plan (06/09/2023 9:36 AM [...] tabs BID 06/09/23 Alcohol Use Disorder Clinic [facility] televist tolerating the [...] tabs BID 06/09/23 Alcohol Use Disorder Clinic [facility] televist tolerating the medication. Admits to 3 [...] Alcohol abuse 12/24/2022 10/22/2023 Acute hyponatremia 12/24/2022 Lumbar radiculopathy 12/24/2022 024 Myofascial pain 12/24/2022 [...] 06/03/2022 Heart failure with reduced ejection fraction 06/03/2022 Chest pain 05/08/2022 08/11/2022 Subtherapeutic anticoagulation 05/07/2022 [...] Encounters Date Type Department Care Team Description 05/03/2024 1:00 PM EST Office Visit [facility] [address] [place] [address] Panchito Lamas DDS Dental abscess (Primary Dx); Dental caries 05/03/2024 Telephone [facility] [address] [place] [address] Shannan Barrow, RN Paperwork/Forms 05/03/2024 Refill [facility] [address] [place] [phone] Nathalie Hsu MD Alcoholic liver disease ([facility]/HCC) 05/02/2024 Telephone [facility] [address] [place] [address] Nathalie Hsu MD Anticoagulation 04/25/2024 Telephone [facility] [address] [place] [address] Nathalie Hsu MD Anticoagulation 04/18/2024 Telephone [facility] [address] [place] [address] Nathalie Hsu MD Anticoagulation 04/14/2024 Orders Only GENERIC EXTERNAL DATA DEPARTMENT Provider, Generic External Data Alcoholic liver disease ([facility]/HCC) (Primary Dx) 04/12/2024 Refill [facility] [address] [place] [address] Nathalie Hsu MD Mild intermittent asthma without complication 04/11/2024 Telephone [facility] [address] [place] [address] Nathalie Hsu MD Anticoagulation 04/11/2024 Refill [facility] [address] [place] [address] Nathalie Hsu MD Anemia, unspecified type 04/09/2024 Refill [facility] [address] [place] [address] Nathalie Hsu MD Primary insomnia 04/04/2024 Telephone [facility] [address] [place] [address] Lesly Crocker RN Anticoagulation 03/30/[address] [address] Shannan Barrow, KHAI NTTS 03/30/[address] [address] Nathalie Hsu MD Anticoagulation 03/30/[address] [address] Nathalie Hsu MD 03/30/[address] [address] Nathalie Hsu MD History of alcohol abuse; Hypomagnesemia; Mild intermittent asthma, unspecified whether complicated 03/22/[address] [address] Nathalie Hsu MD No Show 03/22/[address] [address] Nathalie Hsu MD 03/20/2024 Refill [facility] [address] [place] [address] Nathalie Hsu MD Gastroesophageal reflux disease without esophagitis 03/15/2024 Anticoagulation - Warfarin Visit [address] [address] Greta Garibay RN History of prosthetic heart valve 03/14/[address] [address] Nathalie Hsu MD Anticoagulation 03/10/2024 10:30 AM EST Office Visit [address] [address] Nathalie Hsu MD Alcoholic liver disease (CMS/HCC) (Primary Dx); History of GI bleed; Anemia, unspecified type; Primary insomnia; Alcohol use disorder, severe, dependence (CMS/HCC); Cardiomyopathy, unspecified type (CMS/HCC); Chronic coronary microvascular dysfunction; Hypertension, unspecified type; Paroxysmal atrial fibrillation (CMS/HCC); Anticoagulated on Coumadin; History of prosthetic heart valve; Acute renal failure, unspecified acute renal failure type (CMS/HCC); Tobacco dependence; Other specified health status; Pain 03/10/2024 Orders Only GENERIC EXTERNAL DATA DEPARTMENT Provider, Generic External Data 03/10/[address] [facility] [place] [address] Nathalie Hsu MD Interoffice Communication 03/10/2024 Travel 03/09/[address] [facility] [place] [address] Nathalie Hsu MD FYI 03/09/[address] [facility] [place] [address] Nathalie Hsu MD Med Refill 03/07/[address] [facility] [address] Nathalie Hsu MD Transition Of Care (Tcm) (HDF - Patient was already scheduled.. Message sent to Team nurses. ) 03/07/[address] [facility] [place] [address] Nathalie Hsu MD Hospital Follow-up; Medication Question 03/07/[address] [facility] [place] [address] Nathalie Hsu MD Anticoagulation 03/06/[address] [facility] [place] [address] Nathalie Hsu MD Hospital Follow-up 03/06/[address] [facility] [place] [address] Nathalie Hsu MD Anticoagulation 03/06/[address] [facility] [place] [address] Nathalie Hsu MD Medication Question 03/02/2024 Refill [facility] [place] [address] Janelle Grayson MD History of prosthetic heart valve 03/01/2024 Refill [facility] [place] [address] Myah Kam, Vijay Hypertension, unspecified type (Primary Dx); Pain 03/01/2024 Telephone [facility] [address] [place] [address] Nathalie Hsu MD Anticoagulation 02/29/2024 Telephone [facility] [address] Shannan Barrow, RN Hospital Follow-up 02/17/2024 Telephone [facility] [address] [place], [place] [address] [address] Nathalie Hsu MD 02/17/2024 Telephone [facility] [address] [place] [address], [place] [address] Shannna Barrow, RN Patient Status 02/16/2024 Telephone [facility] [address] [place] [address], [place] [address] Shannan Barrow, RN Anticoagulation 02/11/[address] [place] [address] Nathalie Hsu MD Anticoagulation 02/08/[address] [address] Ntahalie Hsu MD Anticoagulation 02/08/2024 Telephone [facility] [address] [place] [address] Shannan Barrow, RN Anticoagulation 02/07/2024 Patient Outreach [address] [address] Nathalie Hsu MD Transition Of Care (Tcm) (HDF - Scheduled Patient Refused.) 02/02/[address] [address] Nathalie Hsu MD INR from Last 3 Months Immunizations Name Administration [...] is your housing situation today? I have memojanneth camara 06/01/[address] you [...] 03/10/2024 10:18 AM EST Plan of Treatment Upcoming Encounters Date Type Department Care Team (Late st Contact Info) Description 06/08/2024 9:30 AM EST Office Visit [facility] [address] [place] [address] Panchito Lamas, DDS [address] [place] [address] Health Maintenance Due Date Last Done Comments CT Colonography 1961 Dental Oral Exam 1961 Dental Prophylaxis 1961 Dental X-Ray: Bitewings 1961 FIT 1961 FOBT 1961 Sigmoidoscopy 1961 [...] Alcohol/Substance Use Screening 01/18/2025 01/19/2024 Tobacco Screening 05/03/2025 05/03/2024 Colorectal Cancer Screening 12/29/2026 FIT DNA/Cologuard 12/29/2026 12/30/2023 Dental X-Ray: Full Mouth 05/04/2027 05/03/2024 Lipid Panel 08/11/2027 08/10/2022, 08/22/2020 DTaP/Tdap/Td Vaccines (4 - Td or Tdap) 04/01/2033 04/01/2023, 10/24/2014, 11/18/2010, Additional history exists HIV Screening Completed 08/10/2022 Hepatitis C Screening Completed 08/10/2022 Pneumococcal Vaccine: 50+ Years Completed 11/30/2022, 12/26/2008 Hepatitis A Vaccines Completed [...] Procedure Name Priority Date/Time Associated Diagnosis Comments LIMITED ORAL EVALUATION - PROBLEM FOCUSED Routine 05/03/2024 1:00 PM EST PANORAMIC RADIOGRAPHIC IMAGE Routine 05/03/2024 1:00 PM EST ADJUNCTIVE GENERAL SERVICES - PROFESSIONAL VISITS - CASE PRESENTATION, SUBSEQUENT TO DETAILED AND EXTENSIVE TREATMENT PLANNING Routine 05/03/2024 1:00 PM EST PROTHROMBIN TIME-INR Routine 05/02/2024 PROTHROMBIN TIME-INR Routine 04/25/2024 PROTHROMBIN TIME-INR Routine [...] Recently Relevant to Health Maintenance Results * Prothrombin Time-INR (05/02/2024) Only the most recent of18 resultswithin the time period is included. INR 3.10 2.50 - 3.50 [facility] Protime [facility] Blood Venous blood specimen / Unknown us Nathalie Hsu MD LAB BLOOD ORDERABLES Final Result [facility] [address] [place] [address] [phone] * Drug Monitoring, Phosphatidylethanol (PEth), Blood (04/14/2024 1:41 PM EST) Phosphatidylethanol, Blood NEGATIVE [facility] Comment:REFERENCE RANGE: <20 ng/mLTHIS TEST PERFORMED AT:[facility] [id number] [place] [phone] DIRECTOR: SERAFIN YUSUF MD, PHD [facility] 16:0/18:2 (PLPEth) NEGATIVE [facility] Comment:REFERENCE RANGE: <20 ng/mLTHIS TEST PERFORMED AT:[email or web address] [id number] [place] [phone] DIRECTOR: SERAFIN YUSUF MD, PHD [facility] Comments SEE NOTE [facility] Comment:This drug testing is for medical treatment only.Analysis was performed as non-forensic testing andthese results should be used only by healthcareproviders to render diagnosis or treatment, or tomonitor progress of medical conditions.LDT Notes:Confirmation tests were developed and their analyticalperformance characteristics have been determined by[employer]. It has not been cleared or approvedby the FDA. This assay has been validated pursuant tothe CLIA regulations and is used for clinical purposes.Healthcare Providers needing Interpretation assistance,please contact us at [phone] ( )M-F, 8am to 10pm ESTTHIS TEST PERFORMED AT:[facility] [address] [phone] DIRECTOR: KEENAN DOWNS MD 04/14/2024 1:41 PM EST 04/14/2024 1:41 PM EST Generic External Data Provider LAB BLOOD ORDERAB LES Final Result Performing Organization Address [facility] de Phone Number [facility] [address] [place] [phone] * Alpha-Fetoprotein, Tumor Marker (04/14/2024 1:41 PM EST) [facility] Alpha Fetoprotein 4.7 <6.1 ng/mL [facility] Comment:This test was perfor med using the Lavon Coulterchemiluminescent method. Values obtained fromdifferent assay methods cannot be usedinterchangeably. AFP levels, regardless ofvalue, should not be interpreted as absoluteevidence of the presence or absence of disease.THIS TEST WAS PERFORMED AT:[facility] [place] [phone] DOWNS MD 04/14/2024 1:41 PM EST 04/14/2024 1:41 PM EST Generic External Data Provider LAB BLOOD ORDERAB LES Final Result Performing Organization Address [facility] de Phone Number [facility] [address] [place] [phone] * (ABNORMAL) CBC (04/14/2024 1:41 PM EST) Only the most recent of2 resultswithin the time period is included. [facility] White Blood Count 9.7 4.8 - 10.8 X10*3/uL [facility] Red Blood Count 4.32(L) 4.60 - 5.80 X10*6/uL [facility] Hemoglobin 13.6(L) 14.0 - 18.0 g/dl [facility] Hematocrit 40.6(L) 42.0 - 52.0 % [facility] Mean Corpuscular Volume 94.0 80.0 - 98.0 fL [facility] Mean Corpuscular Hemoglobin 31.5 27.0 - 33.0 pg [facility] Mean Corpuscular HGB Conc 33.5 31.0 - 36.0 g/dl [facility] Red Cell Distribution Width 17.2(H) 11.0 - 16.0 % [facility] Platelet Count 271 160 - 400 X10*3/uL [facility] Mean Platelet Volume 8.7(L) 9.4 - 12.4 fL [facility] NRBC Pct Auto 0.0 0.0 - 0.2 /100WBC [facility] NRBC Abs Auto 0.000 0.0 - 0.012 X10*3/uL [facility] 04/14/2024 1:41 PM EST 04/14/2024 1:41 PM EST us Generic External Data Provider LAB BLOOD ORDERAB LES Final Result [facility] [address] [place] [phone] * (ABNORMAL) Comprehensive Metabolic Panel (04/14/2024 1:41 PM EST) Only the most recent of2 resultswithin the time period is included. Sodium 138 135 - 145 mmol/L [facility] Potassium 4.1 3.3 - 5.1 mmol/L [facility] Chloride 112(H) 96 - 108 mmol/L [facility] Carbon Dioxide 20(L) 22 - 29 mmol/L [facility] Anion Gap 10(L) 12 - 20 [facility] Urea Nitrogen (BUN) 20(H) 9 - 16 mg/dL [facility] Creatinine, Serum 1.16 0.5 - 1.4 mg/dL [facility] Estimated Glomerular Filt Rate >60 [facility] Comment:Chronic Kidney Disea se: Estimated GFR < 60 mL/min/1.02z2Njynzw Kidney Disease: Estimated GFR < 15 mL/min/1.73m2 Glucose 89 60 - 115 mg/dL [facility] Calcium 9.1 8.4 - 10.2 mg/dL [facility] Bilirubin, Total 1.6(H) 0.0 - 1.0 mg/dL [facility] Aspartate Amino Transferase 35 5 - 37 U/L [facility] Alanine Aminotransferase 28 0 - 40 U/L [facility] Total Protein 8.7(H) 6.5 - 8.0 g/dL [facility] Albumin Level 3.8 3.5 - 5.0 g/dL [facility] Alkaline Phosphatase 146(H) 39 - 117 U/L [facility] 04/14/2024 1:41 PM EST 04/14/2024 1:41 PM EST us Generic External Data Provider LAB BLOOD ORDERAB LES Final Result [facility] [address] [place] [phone] * US Abdomen Complete (04/14/2024 1:04 PM EST) Anatomical Region Laterality Modality Abdomen Ultrasound 04/14/2024 1:04 PM EST Narrative 04/17/2024 3:52 PM EST ? [facility] ?[address] ?[place] [address] ? Ultrasound Report ? Signed ? Patient: Federico,Omid ?MR#: [id number] ?? 14 ? : 1960 ?Acct:[id number] ? Age/Sex: 64 / M ?ADM Date: 04/14/24 ? Loc: HO.US ? Attending Dr: Lisbeth Johnson MD ? Ordering Physician: Lisbeth Johnson MD ?? Date of Service: 04/14/24 ?? Procedure(s): US abdomen complete ?? Accession Number(s): [id number] ? cc: Nathalie Hsu MD; Lisbeth Johnson [...] DD/ 1304 ? TD/TT: 04/14/24 1319 ? Securities Counselor: ? Procedure Note [place] - 04/17/[address] [address] Ultrasound Report Signed Patient: Mandi Caballero#: [id number] 14 : 1960cct:[id number] Age/Sex: 64 / MADM Date: 04/14/24 Loc: HO.US Attending Dr: Lisbeth Johnson MD Ordering Physician: Lisbeth Johnson MD Date of Service: 04/14/24 Procedure(s): US abdomen complete Accession Number(s): [id number] cc: Nathalie Hsu MD; Lisbeth Johnson MD [...] Keron Herrera MD 04/17/2024 03:49 PM EST RP Dictated By: Keron Herrera MD Signed By: <Electronically signed by Keron Herrera MD in OV> 04/17/24 1549 DD/ 1304 TD/TT: 04/14/24 1319 Securities Counselor: us [facility] External Provider IMG US PROCEDURES Final Result * (ABNORMAL) CBC auto differential (03/22/2024 9:09 AM EST) White Blood Count 8.5 4.8 - 10.8 X10*3/uL [facility] Red Blood Count 3.13(L) 4.60 - 5.80 X10*6/uL [facility] Hemoglobin 9.9(L) 14.0 - 18.0 g/dl [facility] Hematocrit 30.2(L) 42.0 - 52.0 % [facility] Mean Corpuscular Volume 96.5 80.0 - 98.0 fL [facility] Mean Corpuscular Hemoglobin 31.6 27.0 - 33.0 pg [facility] Mean Corpuscular HGB Conc 32.8 31.0 - 36.0 g/dl [facility] Red Cell Distribution Width 22.6(H) 11.0 - 16.0 % [facility] Platelet Count 217 160 - 400 X10*3/uL [facility] Mean Platelet Volume 10.3 9.4 - 12.4 fL [facility] Neutrophils Percent Auto 62.2 45 - 73 % [facility] Imm Gran Pct Auto 0.2 0.0 - 0.4 % [facility] Lymphocytes Percent Auto 23.7 20 - 40 % [facility] Monocytes Percent Auto 10.6 2 - 11 % [facility] Eosinophils Percent Auto 2.1 0 - 4 % [facility] Basophils Percent Auto 1.2 0 - 2 % [facility] NRBC Pct Auto 0.0 0.0 - 0.2 /100WBC [facility] Neutrophils Absolute Auto 5.3 2.0 - 8.3 x10*3/uL [facility] Imm Gran Abs Auto 0.02 0.00 - 0.03 X10*3/uL [facility] Lymphocytes Absolute Auto 2.0 1.2 - 4.9 X10*3/uL [facility] Monocytes Absolute Auto 0.9 0.1 - 1.2 X10*3/uL [facility] Eosinophils Absolute Auto 0.2 0.0 - 0.4 X10*3/uL [facility] Basophils Absolute Auto 0.1 0.0 - 0.2 X10*3/uL [facility] NRBC Abs Auto 0.000 0.0 - 0.012 X10*3/uL [facility] Blood Venous blood specimen / Unknown 03/22/2024 9:09 AM EST 03/22/2024 11:51 AM EST Nathalie Hsu MD LAB BLOOD ORDERABLES Final Result Performing Organization Address City/State/[facility] Co de Phone Number [facility] [address] [place] [phone] * Cologuard?? colon cancer screening (12/30/2023 1:30 AM EDT) Cologuard Result Negative Negative 01/05/20 1:07 AM EDT [employer] [employer] [facility] (CLIA #:[id number]) Comment: NEGATIVE TEST RESULT. A negative Cologuard [...] cancer. ??Following a negative Cologuard result, the [place] Cancer Society and U.S. Multi-Society Task Force screening guidelines recommend a Cologuard re-screening interval of 3 years. References: [place] Cancer Society Guideline for Colorectal Cancer Screening: https://www.cancer.org/cancer/rboat-obcdcg-klvfqh/vlzveorud-gsmmddzru-krcczrt/ac s-rec ommendations.html.; Honorio DK, Lita NEGRETE, Luba JamesK, Colorectal Cancer Screening: Recommendations for Physicians and Patients from the U.S. Multi-Society Task Force on Colorectal Cancer Screening , Am J Gastroenterology 2017; 112:9835-1542. TEST DESCRIPTION: Composite algorithmic analysis of stool [...] (Tien Landeros al, N Engl J Med 2014;370(14):6911-7281.) Cologuard may produce a false negative or false positive result (no colorectal cancer or precancerous polyp present at colonoscopy follow up). A negative Cologuard test result does not guarantee the absence of CRC or advanced adenoma (pre-cancer). The current Cologuard screening interval is every 3 years. ([place] Cancer Society and U.S. Multi-Society Task Force). Cologuard performance data in a 10,000 patient pivotal study using colonoscopy as the reference method can be accessed at the following location: www.Shoefitr.STinser/results. Additional description of the Cologuard test process, warnings and precautions can be found at www.foc.usrd.com. Stool specimen (specimen) Rectal contents / Unknown 12/30/2023 1:30 AM EDT 01/01/2024 3:30 PM EDT Nathalie Hsu MD LAB MOLECULAR DIAGNOSTICS ORDERABLES Final Result Performing Organization Address City/[facility] Co de Phone Number [employer] [facility] (CLIA #:[id number]) [place] [address], * Hepatitis C Antibody with Reflex to HCV, RNA, Quantitative, Real-Time PCR (08/10/2022 11:24 AM EDT) Hepatitis C Antibody NON-REACT KG NON-REACT KG [employer] [place] [facility] Index 0.13 <1.00 [facility] Comment: HCV antibody was non-reactive. There is no laboratory evidence of HCV infection. In most cases, no further action is required. However, if recent HCV exposure is suspected, a test for HCV RNA (test code 69802) is suggested. For additional information please refer to http://education.Music Nation.STinser/faq/ACN78e0 (This link is being provided for informational/ educational purposes only.) Blood Venous blood specimen / Unknown 08/10/2022 11:24 AM EDT 08/10/2022 11:25 AM EDT Narrative [facility] - 08/16/2022 12:40 AM EDT FASTING:NO FASTING: NO Nathalie Hsu MD LAB BLOOD ORDERABLES Final Result Performing Organization Address City/[facility]/ZIP Co de Phone Number [facility] [address], [place] [address] [employer] [facility] [place] [facility] [address] [place] [phone] * HIV-1/2 Antigen and Antibodies, Fourth Generation, with Reflexes (08/10/2022 11:24 AM EDT) Pathologist [facility] HIV Antigen/Antibody, 4th Generation NON-REAC TIVE NON-REAC TIVE [employer] [place] [facility] Comment: HIV-1 antigen and HIV-1/HIV-2 antibodies were [...] ?? For additional information please refer to http://education.US Emergency Registry/faq/HHX227 (This link is being provided for informational/ educational purposes only.) The performance of this assay has not been clinically validated in patients less than 2 years old. Blood Venous blood specimen / Unknown 08/10/2022 11:24 AM EDT 08/10/2022 11:25 AM EDT Narrative [facility] - 08/16/2022 12:40 AM EDT FASTING:NO FASTING: NO Nathalie Hsu MD LAB BLOOD ORDERABLES Final Result [facility] [address], [place] [address] [facility] [employer] [place] [facility] [address] [place] [phone] * Lipid Panel, Standard (08/10/2022 11:24 AM EDT) [facility] Cholesterol, Total 161 <200 mg/dL [employer] [place] [facility] HDL Cholesterol 62 > OR = 40 mg/dL [employer] [place] [facility] Triglycerides 109 <150 mg/dL [employer] [place] [facility] LDL Cholesterol 80 mg/dL (calc) [facility] Comment: Reference range: <100 Desirable range <100 mg/dL for primary prevention; ?? <70 mg/dL for patients with CHD or diabetic patients with > or = 2 CHD risk factors. LDL-C is now calculated using the Gallo calculation, which is a validated novel method providing better accuracy than the Friedewald equation in the estimation of LDL-C. Anthony SS et al. FLAKITA. 2013;310(19): 0398-2402 (http://education.Xand/faq/AXJ273) Chol/HDLC Ratio 2.6 <5.0 (calc) [facility] Non-HDL Cholesterol 99 <130 mg/dL (calc) [facility] Comment: For patients with diabetes plus 1 major ASCVD risk factor, treating to a non-HDL-C goal of <100 mg/dL (LDL-C of <70 mg/dL) is considered a therapeutic option. Blood Venous blood specimen / Unknown 08/10/2022 11:24 AM EDT 08/10/2022 11:25 AM EDT Narrative [facility] - 08/16/2022 12:40 AM EDT FASTING:NO FASTING: NO Nathalie Hsu MD LAB BLOOD ORDERABLES Final Result [facility] [address], [place] [address] [employer] [place] [facility] [address] [place] [address] * Hm Colonoscopy (03/05/2012) Colonoscopy Dr. Zhang Historical Provider HEALTH MAINTENANCE Final Result from Last 3 Months or Most Recently Relevant to Health Maintenance [facility] ST[facility] AD[facility] Advance Directives Documents on File Type Date Recorded Patient Relief Cook Expl anation Advance Directives and Living Will 06/10/2023 1:14 PM Health Care Proxy Care Teams Design Drafter Relationship Specialty Start Date End Date Crawford, MD Nathalie [address] [place] [address] PCP - General Family Medicine 09/27/13 Shannan Barrow, RN [address] [place] [address] Registered Nurse 02/29/24 Lisbeth Johnson [address] [place] [address] Drive 3rd [place] [address] Gastroenterology 03/15/24 Tonya Poole Dish WasherMerchant Tailor 01/19/24 Raman ([facility]) Registered Nurse 02/29/24 Marcos Verdin MD [employer] [facility] [address] [place] [address] Cardiology 03/10/24 Omid Vincent Psychiatry 03/15/24
--- OUTSIDE RECORDS SUMMARY | 2024-05-04 17:46 | XMS_ITS | Encounter Summary ---
Author Organization [employer] Address [address] [place] [address] Care Team Providers Care Lath Tier Name Role Phone Nathalie Hsu MD Primary Care Provider [phone] Shannan Barrow RN Unavailable [phone] Lisbeth Johnson Unavailable Reason for Visit * Reason Onset Date Comments Hospital Follow-up 03/07/2024 Medication Question 03/07/2024 Encounter Details Date Type Department Care Team (Late st Contact Info) Description 03/07/2024 Telephone [facility] [address] [place], [place] [phone] Nathalie Hsu MD [address] [place], [place] [phone] Hospital Follow-up; Medication Question Social History Tobacco [...] stating wrong number and he doesn't speak hungarian (was not the pt). Telephone call placed [...] asleep easier. * Telephone Encounter - Juventino Alfaronandez - 03/07/2024 2:00 PM EST [facility]c [facility] with [facility] Lead Setter requesting a F appt. Pt is concerned about medication melatonin 5 MG tablet he still has trouble sleeping and doesn't want to stop taking. Hospital: [facility] Date of admission: 02/11 Discharge date: 03/01 Diagnosed: Liver Issues Contact pt to schedule at [phone] *Send message to [place] Clinical Care Coordinators documented in this encounter Plan of Treatment Upcoming Encounters Date Type Department Care Team (Late st Contact Info) Description 06/08/2024 9:30 AM EST Office Visit [facility] AD[facility] [address] [place] [address] Panchito Lamas DDS [address] [place] [address] documented as of this encounter Visit Diagnoses Not on filedocumented in this encounter Additional Health Concerns Assessment Noted Time PHQ-9 Depression Total Score: 0 06/09/19 24 9:13 AM EST documented as of this encounter Care Teams Lath Tier Relationship Specialty Start Date End Date Nathalie Hsu MD [address] [place] [address] PCP - General Family Medicine 09/27/13 Shannan Barrow, KHAI [address] [place] [address] Registered Nurse 02/29/[address] [place] [address] Gastroenterology 03/15/24 Tonya Poole Family Services AssistantManager Pulmonary 01/19/24 Raman (A S) Registered Nurse 02/29/24 Marcos Verdin MD [facility] [address] [place] [address] Cardiology 03/10/24 Omid Vincent Psychiatry 03/15/24 documented as of this encounter
--- OUTSIDE RECORDS SUMMARY | 2024-05-04 17:46 | XMS_ITS | Encounter Summary ---
Author Organization [employer] Address [address] [place] [address] Care Team Providers Care Operations Administrator Name Role Phone aNthalie Hsu MD Primary Care Provider [phone] Shannan Barrow RN Unavailable [phone] Lisbeth Johnson Unavailable Reason for Visit * Reason Onset Date Comments Anticoagulation 04/25/2024 Encounter Details Date Type Department Care Team (Late st Contact Info) Description 04/25/2024 Telephone [facility] MED[facility] [address] [place], [place] [phone] Nathalie Hsu MD [address] [place], [place] [phone] Anticoagulation Social History Tobacco Use Types Packs/Day [...] aware of dosing and draw date. Shannan Barrow, RN * Telephone Encounter - Theresa Stover RN - 04/25/2024 3:10 PM EST Incoming call to the Critical Result line 04/25/24 at 3:10 PM Name of Caller/Facility:[facility] Callback number: [phone] Reason for Call: INR of 2.1 drawn today 04/25/24 Message to be forwarded to Nathalie Hsu MD and team nurses for follow up. documented in this encounter Plan of Treatment Upcoming Encounters Date Type Department Care Team (Late st Contact Info) Description 06/08/2024 9:30 AM EST Office Visit [facility] ADULT DENTAL [address] [place] [address] Panchito Lamas DDS [address] [place], [place] [phone] documented as of this encounter Procedures Procedure Name Priority Date/Time Associated Diagnosis Comments PROTHROMBIN TIME-INR Routine 04/25/2024 documented in this encounter Results * (ABNORMAL) Prothrombin Time-INR (04/25/2024) INR 2.10(L) 2.50 - 3.50 [facility] Protime [facility] Blood Venous blood specimen / Unknown us Nathalie Hsu MD LAB BLOOD ORDERABLES Final Result [facility] [address] [place] [phone] documented in this encounter Visit Diagnoses Diagnosis History of prosthetic heart valve documented in this encounter Additional Health Concerns Assessment Noted Time PHQ-9 Depression Total Score: 0 06/09/19 24 9:13 AM EST documented as of this encounter Care Teams Operations Administrator Relationship Specialty Start Date End Date Nathalie Hsu MD [address] [place] [address] PCP - General Family Medicine 09/27/13 Shannan Barrow, RN [address] [place] [address] Registered Nurse 02/29/24 Lisbeth Johnson [address] [place] [address] 3rd [place] [address] Gastroenterology 03/15/24 Tonya Poole Finishing Department SupervisorMetal Pickling Equipment Operator 01/19/24 Raman ([facility]) Registered Nurse 02/29/24 Marcos Verdin MD [facility] [address] [place] [address] Cardiology 03/10/24 Omid Vincent Psychiatry 03/15/24 documented as of this encounter
--- OUTSIDE RECORDS SUMMARY | 2024-05-04 17:46 | XMS_ITS | Encounter Summary ---
Author Organization [employer] Address [address] [facility] [facility] [facility] [address] 7t [place] [address] Care Team Providers Care Flag Decorator Name Role Phone Nathalie Hsu MD Primary Care Provider +1- [phone] Shannan Barrow RN Unavailable [phone] Lisbeth Johnson Unavailable Encounter Details Date [...] the past 12 months, has t he [employer], [employer], oil or water [employer] threatened to shut off services in your [...] Description 06/08/2024 9:30 AM EST Office Visit [facility] ADULT D[facility]AL [address] [place] [address] Panchito Lamas DDS [address] [place] [address] documented as of this encounter Procedures Procedure [...] (04/14/2024 1:41 PM EST) Phosphatidylethanol, Blood NEGATIVE [facility] Comment:REFERENCE RANGE: <20 ng/mLTHIS TEST PERFORMED AT:[facility] [address] [phone] DIRECTOR: SERAFIN YUSUF MD, PHD PEth 16:0/18:2 (PLPEth) NEGATIVE [facility] Comment:REFERENCE RANGE: <20 ng/mLTHIS TEST PERFORMED AT:[facility] [address] [phone] DIRECTOR: SERAFIN YUSUF MD, PHD [facility] Comments SEE NOTE [facility] Comment:This drug testing is for medical treatment only.Analysis was performed as non-forensic testing andthese results should be used only by healthcareproviders to render diagnosis or treatment, or tomonitor progress of medical conditions.LDT Notes:Confirmation tests were developed and their analyticalperformance characteristics have been determined by[employer]. It has not been cleared or approvedby the FDA. This assay has been validated pursuant tothe CLIA regulations and is used for clinical purposes.Healthcare Providers needing Interpretation assistance,please contact us at [phone] ( )M-F, 8am to 10pm ESTTHIS TEST PERFORMED AT:[facility] [address] [phone] DIRECTOR: KEENAN DOWNS MD 04/14/2024 1:41 PM EST 04/14/2024 1:41 PM EST us Generic External Data Provider LAB BLOOD ORDERAB LES Final Result [facility] [address] [place] [address] [phone] * Alpha-Fetoprotein, Tumor Marker (04/14/2024 1:41 PM EST) Pathologist [facility] Alpha Fetoprotein 4.7 <6.1 ng/mL [facility] Comment:This test was perfor med using the Lavon Coulterchemiluminescent method. Values obtained fromdifferent assay methods cannot be usedinterchangeably. AFP levels, regardless ofvalue, should not be interpreted as absoluteevidence of the presence or absence of disease.THIS TEST WAS PERFORMED AT:[facility] [place] [phone] DOWNS MD 04/14/2024 1:41 PM EST 04/14/2024 1:41 PM EST us Generic External Data Provider LAB BLOOD ORDERAB LES Final Result [facility] [address] [place] [address] [phone] * (ABNORMAL) Comprehensive Metabolic Panel (04/14/2024 1:41 PM EST) Pathologist [facility] Sodium 138 135 - 145 mmol/L [facility] Potassium 4.1 3.3 - 5.1 mmol/L [facility] Chloride 112(H) 96 - 108 mmol/L [facility] Carbon Dioxide 20(L) 22 - 29 mmol/L [facility] Anion Gap 10(L) 12 - 20 [facility] Urea Nitrogen (BUN) 20(H) 9 - 16 mg/dL [facility] Creatinine, Serum 1.16 0.5 - 1.4 mg/dL [facility] Estimated Glomerular Filt Rate >60 [facility] Comment:Chronic Kidney Disea se: Estimated GFR < 60 mL/min/[id number] Kidney Disease: Estimated GFR < 15 mL/min/1.73m2 Glucose 89 60 - 115 mg/dL [facility] Calcium 9.1 8.4 - 10.2 mg/dL [facility] Bilirubin, Total 1.6(H) 0.0 - 1.0 mg/dL [facility] Aspartate Amino Transferase 35 5 - 37 U/L [facility] Alanine Aminotransferase 28 0 - 40 U/L [facility] Total Protein 8.7(H) 6.5 - 8.0 g/dL [facility] Albumin Level 3.8 3.5 - 5.0 g/dL [facility] Alkaline Phosphatase 146(H) 39 - 117 U/L [facility] 04/14/2024 1:41 PM EST 04/14/2024 1:41 PM EST Generic External Data Provider LAB BLOOD ORDERAB LES Final Result Performing Organization Address [facility] de Phone Number [facility] [address] [place] [phone] * (ABNORMAL) Prothrombin Time-INR (04/14/2024 1:41 PM EST) Prothrombin Time 31.9(H) 10.9 - 12.4 SEC [facility] INTERNATIONAL NORM RATIO 2.7(H) 0.9 - 1.1 [facility] Comment:INTERNATIONAL NORMAL IZED RATIO (INR) [...] 1:41 PM EST 04/14/2024 1:41 PM EST [employer] External Data Provider LAB BLOOD ORDERAB LES Final Result Performing Organization Address [facility] de Phone Number [facility] [address] [place] [phone] * (ABNORMAL) CBC (04/14/2024 1:41 PM EST) White Blood Count 9.7 4.8 - 10.8 X10*3/uL [facility] Red Blood Count 4.32(L) 4.60 - 5.80 X10*6/uL [facility] Hemoglobin 13.6(L) 14.0 - 18.0 g/dl [facility] Hematocrit 40.6(L) 42.0 - 52.0 % [facility] Mean Corpuscular Volume 94.0 80.0 - 98.0 fL [facility] Mean Corpuscular Hemoglobin 31.5 27.0 - 33.0 pg [facility] Mean Corpuscular HGB Conc 33.5 31.0 - 36.0 g/dl [facility] Red Cell Distribution Width 17.2(H) 11.0 - 16.0 % [facility] Platelet Count 271 160 - 400 X10*3/uL [facility] Mean Platelet Volume 8.7(L) 9.4 - 12.4 fL [facility] NRBC Pct Auto 0.0 0.0 - 0.2 /100WBC [facility] NRBC Abs Auto 0.000 0.0 - 0.012 X10*3/uL [facility] 04/14/2024 1:41 PM EST 04/14/2024 1:41 PM EST us Generic External Data Provider LAB BLOOD ORDERAB LES Final Result Performing Organization Address City/State/[facility] Co de Phone Number [facility] [address] [place] [address] [phone] * US Abdomen Complete (04/14/2024 1:04 PM EST) Anatomical Region Laterality Modality Abdomen Ultrasound 04/14/2024 1:04 PM EST Narrative 04/17/2024 3:52 PM EST ? [facility] ?[address] ?[place] [address] ? Ultrasound Report ? Signed ? Patient: Federico,Omid ?MR#: [id number] ?? 14 ? : 1960 ?Acct:[id number] ? Age/Sex: 64 / M ?ADM Date: 04/14/24 ? Loc: HO.US ? Attending Dr: Lisbeth Johnson MD ? Ordering Physician: Lisbeth Johnson MD ?? Date of Service: 04/14/24 ?? Procedure(s): US abdomen complete ?? Accession Number(s): [id number] ? cc: Nathalie Hsu MD; Lisbeth Johnson [...] DD/ 1304 ? TD/TT: 04/14/24 1319 ? Hotel Or Motel Cleaning Supervisor: ? Procedure Note Don[employer], Image - 04/17/2024 [place] [address] Ultrasound Report Signed Patient: Mandi Caballero#: [id number] 14 : 1960cct:[id number] Age/Sex: 64 / MADM Date: 04/14/24 Loc: HO.US Attending Dr: Lisbeth Johnson MD Ordering Physician: Lisbeth Johnson MD Date of Service: 04/14/24 Procedure(s): US abdomen complete Accession Number(s): [id number] cc: Nathalie Hsu MD; Lisbeth Johnson MD [...] 04/17/24 1549 DD/ 1304 TD/TT: 04/14/24 1319 Hotel [employer] Motel Cleaning Supervisor: [facility] External Provider IMG US PROCEDURES Final Result documented in this encounter Visit Diagnoses Diagnosis Alcoholic liver disease (CMS/HCC)- Primary Unspecified alcoholic liver damage documented in this encounter Additional Health Concerns Assessment Noted Time PHQ-9 Depression Total Score: 0 06/09/19 9:13 AM EST documented as of this encounter Care Teams Flag Decorator Relationship Specialty Start Date End Date Nathalie Hsu MD [address] [place] [address] PCP - General Family Medicine 09/27/13 Shannan Barrow, KHAI [address] [place] [address] Registered Nurse 02/29/24 Lisbeth Johnson [address] [place] [address] Drive 3rd [place] [address] Gastroenterology 03/15/24 Tonya Poole Water Filterer HelperDevelopmental Training Counselor 01/19/24 Raman ([facility]) Registered Nurse 02/29/24 Marcos Verdin MD [place] [facility] [address] [place] [address] Cardiology 03/10/24 Omid Vincent Psychiatry 03/15/24 documented as of this encounter
--- OUTSIDE RECORDS SUMMARY | 2024-05-04 17:46 | XMS_ITS | Encounter Summary ---
Author Organization [employer] Address [address] [place] [address] Care Team Providers Care Charter Representative Name Role Phone Nathalie Hsu MD Primary Care Provider [phone]- [phone] Shannan Barrow RN Unavailable [phone] Lisbeth Johnson Unavailable Reason for Visit * Reason Onset Date Comments Anticoagulation 04/18/2024 Encounter Details Date Type Department Care Team (Late st Contact Info) Description 04/18/2024 Telephone [facility] MEDICINE [address] [place], [place] [phone] Nathalie Hsu MD [address] [place], [place] [phone] Anticoagulation Social History Tobacco Use Types Packs/Day [...] 2:29 PM Name of Caller/Facility: Sherin KHAI [facility] Callback number: [phone] Reason for Call: INR 2.4 today Message to be forwarded to Nathalie Hsu MD and team nurses for follow up. documented in this encounter Plan of Treatment Upcoming Encounters Date Type Department Care Team (Late st Contact Info) Description 06/08/2024 9:30 AM EST Office Visit [facility] ADULT DENTAL [address] [place], [place] [phone] Panchito Lamas DDS [address] [place], [place] [phone] documented as of this encounter Procedures Procedure [...] documented as of this encounter Care Teams Charter Representative Relationship Specialty Start Date End Date Nathalie Hsu MD [address] [place], [place] [phone] PCP - General Family Medicine 09/27/13 Shannan Barrow, KHAI [address] [place] [address] Registered Nurse 02/29/24 Lisbeth Johnson [address] 3rd [place] [address] Gastroenterology 03/15/24 Tonya Poole Mountain GuideBallpoint Pen Assembly Machine Operator 01/19/24 Raman ([facility]) Registered Nurse 02/29/24 Marcos Verdin MD [place] [facility] [address] [place] [address] Cardiology 03/10/24 Omid Vincent Psychiatry 03/15/24 documented as of this encounter
--- OUTSIDE RECORDS SUMMARY | 2024-05-04 17:46 | XMS_ITS | Encounter Summary ---
Author Organization [employer] Address [address] [address] 7t [place] [address] Care Team Providers Care Cardiopulmonary Supervisor Name Role Phone Nathalie Hsu MD Primary Care Provider [phone]- [phone] Shannan Barrow RN Unavailable [phone] Lisbeth Johnson Unavailable Reason for Visit * Reason Onset Date Comments Anticoagulation 04/04/2024 Encounter Details Date Type Department Care Team (Late st Contact Info) Description 04/04/2024 Telephone [facility] [address] [place] [address] Lesly Crocker RN Anticoagulation Social History Tobacco [...] t he electric, gas, oil or water [employer] threatened to shut off services in your [...] Description 06/08/2024 9:30 AM EST Office Visit [facility]ULT D[facility] [address] [facility] [place] [address] Cydney PanchitoDILEEP [address] [place] [address] documented as of this encounter Procedures Procedure Name Priority Date/Time Associated Diagnosis Comments PROTHROMBIN TIME-INR Routine 04/04/2024 documented in this encounter Results * (ABNORMAL) Prothrombin Time-INR (04/04/2024) INR 2.80(A) 0.90 - 1.10 [facility] Protime [facility] Blood Venous blood specimen / Unknown us Historical Provider LAB BLOOD ORDERABLES Kassidy l Result [facility] [address] [place] [address] [phone] documented in this encounter Visit Diagnoses Diagnosis History of prosthetic heart valve documented in this encounter Additional Health Concerns Assessment Noted Time PHQ-9 Depression Total Score: 0 06/09/19 9:13 AM EST documented as of this encounter Care Teams Cardiopulmonary Supervisor Relationship Specialty Start Date End Date Nathalie Hsu MD [address] [place] [address] PCP - General Family Medicine 09/27/13 [place] [address] Registered Nurse 02/29/24 Lisbeth Johnson [address] 3rd [place] [address] Gastroenterology 03/15/24 Tonya Poole Cutting SupervisorCarbonation Equipment Tender 01/19/24 Raman ([facility] Registered Nurse 02/29/24 Marcos Verdin MD [place] [facility] [address] [place] [address] Cardiology 03/10/24 Omid Vincent Psychiatry 03/15/24 documented as of this encounter
--- OUTSIDE RECORDS SUMMARY | 2024-05-04 17:46 | XMS_ITS | Encounter Summary ---
Author Organization [employer] Address [address] [facility] 7t [place] [address] Care Team Providers Care Track Equipment Operator Name Role Phone Nathalie Hsu MD Primary Care Provider [phone]- [phone] Shannan Barrow RN Unavailable [phone] Lisbeth Johnson Unavailable Reason for Visit * Reason Onset Date Comments Anticoagulation 04/11/2024 Encounter Details Date Type Department Care Team (Late st Contact Info) Description 04/11/2024 Telephone [facility] [address] [place], [place] [phone] Nathalie sHu MD [address] [place], [place] [phone] Anticoagulation Social History Tobacco Use Types Packs/Day [...] at 2:18 PM Name of Caller/Facility:Sherin VALE [employer] Callback number: [phone] Reason for Call: INR 2.1 Message to be forwarded to Nathalie Hsu MD and team nurses for follow up. documented in this encounter Plan of Treatment Upcoming Encounters Date Type Department Care Team (Late st Contact Info) Description 06/08/2024 9:30 AM EST Office Visit [facility] ADULT DENT[facility] [address] [place], [place] [phone] Panchito Lamas DDS [address] [place], [place] [phone] documented as of this encounter Procedures Procedure [...] documented as of this encounter Care Teams Track Equipment Operator Relationship Specialty Start Date End Date Nathalie Hsu MD [address] [place], [place] [phone] PCP - General Family Medicine 09/27/13 Shannan Barrow, RN [address] [place] [address] Registered Nurse 02/29/24 Lisbeth Johnson [address] [place] [address] 3rd [place] [address] Gastroenterology 03/15/24 Tonya Poole Diffusion Furnace OperatorSigns Cleaner 01/19/24 Raman ([facility]) Registered Nurse 02/29/24 Marcos Verdin MD [place] [facility] [address] [place] [address] Cardiology 03/10/24 Omid Vincent Psychiatry 03/15/24 documented as of this encounter
--- OUTSIDE RECORDS SUMMARY | 2024-05-04 17:46 | XMS_ITS | Encounter Summary ---
Author Organization [employer] Address [address] 7t [place] [address] Care Team Providers Care Fellmongery Worker Name Role Phone Nathalie Hsu MD Primary Care Provider [phone]- [phone] Shannan Barrow RN Unavailable [phone] Lisbeth Johnson Unavailable Reason for Visit * Reason Onset Date Comments Med Refill 07/01/2023 Encounter Details Date Type Department Care Team (Late st Contact Info) Description 07/01/2023 Telephone [facility] MEDICINE [address] [place], [place] [phone] Nathalie sHu MD [address] [place], [place] [phone] Med Refill Social History Tobacco Use Types [...] the past 12 months, has t he [employer], gas, oil or water [employer] threatened to shut off services in your [...] 9:11 AM EDT Medication was sent to [facility] on 03/03/23 90 day supply with 1 refill. * Telephone Encounter - Amie Ramsey - 07/01/2023 9:06 AM EDT TC from pt requesting medication refill. Medications needing refill : pantoprazole (ProtoNix) 40 MG EC tablet To be sent to: [facility] [place], [place] - [address] [facility] [address] [facility] [phone] documented in this encounter Plan of Treatment Upcoming Encounters Date Type Department Care Team (Late st Contact Info) Description 06/08/2024 9:30 AM EST Office Visit [facility] ADULT DENTAL [address] [place] [address] Panchito Lamas DDS [address] [place] [address] documented as of this encounter Visit Diagnoses Not on filedocumented in this encounter Additional Health Concerns Assessment Noted Time PHQ-9 Depression Total Score: 0 06/09/19 24 9:13 AM EST documented as of this encounter Care Teams Fellmongery Worker Relationship Specialty Start Date End Date Nathalie Hsu MD [address] [place] [address] PCP - General Family Medicine 09/27/13 Shannan Barrow, KHAI [address] [place] [address] Registered Nurse 02/29/24 Lisbeth Johnson [address] [place] [address] 3rd [place] [address] Gastroenterology 03/15/24 Tonya Poole Manager PublicBackbreaker 01/19/24 Raman ([facility]) Registered Nurse 02/29/24 Marcos Verdin MD [place] [facility] [address] [place] [address] Cardiology 03/10/24 Omid Vincent Psychiatry 03/15/24 documented as of this encounter
--- OUTSIDE RECORDS SUMMARY | 2024-05-04 17:46 | XMS_ITS | Encounter Summary ---
Author Organization [employer] Address [address] [facility] [address] [facility] [address] [place] [address] Care Team Providers Care Digital Watch Assembler Name Role Phone Nathalie Hsu MD Primary Care Provider [phone]- [phone] Shannan Barrow RN Unavailable [phone] Lisbeth Johnson Unavailable Reason for Visit * Reason Comments Med Refill Encounter Details Date Type Department Care Team (Late st Contact Info) Description 03/30/2024 Refill [facility] [address] [place], [place] [phone] Nathalie Hsu MD [address] [place], [place] [phone] History of alcohol abuse; Hypomagnesemia; Mild intermittent [...] Description 06/08/2024 9:30 AM EST Office Visit [facility] ADULT DENTAL [address] [place] [address] Panchito Lamas DDS [address] [place] [address] documented as of this encounter Visit Diagnoses Diagnosis History of alcohol abuse Nondependent alcohol abuse, in remission Hypomagnesemia Disorders of magnesium metabolism Mild intermittent asthma, unspecified whether complicated documented in this encounter Additional Health Concerns Assessment Noted Time PHQ-9 Depression Total Score: 0 06/09/19 24 9:13 AM EST documented as of this encounter Care Teams Digital Watch Assembler Relationship Specialty Start Date End Date Nathalie Hsu MD [address] [place] [address] PCP - General Family Medicine 09/27/13 Shannan Barrow, RN [address] [place] [address] Registered Nurse 02/29/24 Lisbeth Johnson [address] [place] [address] 3rd [place] [address] Gastroenterology 03/15/24 Tonya Poole Contact Centre SupervisorHris Administrator 01/19/24 Raman ([facility]) Registered Nurse 02/29/24 Marcos Verdin MD [place] [facility] [address] [place] [address] Cardiology 03/10/24 Omid Vincent Psychiatry 03/15/24 documented as of this encounter
--- OUTSIDE RECORDS SUMMARY | 2024-05-04 17:46 | XMS_ITS | Encounter Summary ---
Author Organization [employer] Address [address] 7t [place] [address] Care Team Providers Care Fuel Storage Technician Name Role Phone Nathalie Hsu MD Primary Care Provider [phone]- [phone] Shannan Barrow RN Unavailable [phone] Lisbeth Johnson Unavailable Reason for Visit * Reason Comments Med Refill Encounter Details Date Type Department Care Team (Late st Contact Info) Description 04/12/2024 Refill [facility] MEDICINE [address] [place], [place] [phone] Nathalie Hsu MD [address] [place], [place] [phone] Mild intermittent asthma without complication Social History [...] Description 06/08/2024 9:30 AM EST Office Visit [facility] ADULT DENTAL [address] [place] [address] Panchito Lamas DDS [address] [place] [address] documented as of this encounter Visit Diagnoses Diagnosis Mild intermittent asthma without complication documented in this encounter Additional Health Concerns Assessment Noted Time PHQ-9 Depression Total Score: 0 06/09/19 24 9:13 AM EST documented as of this encounter Care Teams Fuel Storage Technician Relationship Specialty Start Date End Date Nathalie Hsu MD [address] [place] [address] PCP - General Family Medicine 09/27/13 Shannan Barrow RN [address] [place] [address] Registered Nurse 02/29/24 Lisbeth Johnson [address] 3rd [place] [address] Gastroenterology 03/15/24 Tonya Virgilio Buffing Wheel Former MachineSheet Metal Supervisor 01/19/24 Raman ([facility]) Registered Nurse 02/29/24 Marcos Verdin MD [place] [facility] [address] [place] [address] Cardiology 03/10/24 Omid Vincent Psychiatry 03/15/24 documented as of this encounter
--- OUTSIDE RECORDS SUMMARY | 2024-05-04 17:47 | XMS_ITS | Encounter Summary ---
Author Organization [employer] Address [address] [place] [address] Care Team Providers Care Pet Walker Name Role Phone Nathalie Hsu MD Primary Care Provider [phone]- [phone] Shannan Barrow RN Unavailable [phone] Lisbeth Johnson Unavailable Reason for Visit * Reason Comments Dental Pain Pt came in as an camilla rgency with pain on his upper left side for the pass month. Panorex taken Encounter Details Date Type Department Care Team (Late st Contact Info) Description 05/03/2024 1:00 PM EST Office Visit [facility] ADULT [facility] [address] [place], [place] [phone] Panchito Lamas DDS [address] [place], [place] [phone] Dental abscess (Primary Dx); Dental caries Social History Tobacco Use Types Packs/Day Years [...] AM EDT documented as of this encounter Progress Notes * Panchito Lamas DDS - 05/03/2024 1:00 PM EST Dental procedures in this visit [id number] - ADJUNCTIVE GENERAL SERVICES - PROFESSIONAL VISITS - CASE PRESENTATION, SUBSEQUENT TO DETAILED AND EXTENSIVE TREATMENT PLANNING (Completed) Service provider: Panchito Lamas DDS Billing provider: Panchito Lamas DDS D0330 - PANORAMIC RADIOGRAPHIC IMAGE (Completed) Service provider: Panchito Lamas DDS Billing provider: Panchito Lamas DDS D0140 - LIMITED ORAL EVALUATION - PROBLEM FOCUSED (Completed) Service provider: Panchito Lamas DDS Billing provider: Panchito Lamas DDS Patient ID: Omid Caballero is a 64 y.o. male. Time Out: No data recorded Location: [facility] Tooth: Maxilla, Mandible, #15, and #29 Procedure: X-rays and Emergency Verified the above with patient, starch treating assistant, and provider. Confirmed via patient's chart, intraorally and by radiographs. Steam Fitter: not applicable Chief Complaint Patient presents with Dental Pain Pt came in as an emergency with pain on his upper left side for the pass month. Panorex taken Medical Hx: Vitals: There were no vitals taken for this visit. Past Medical History: Diagnosis Date Acute hyponatremia 12/24/2022 EDGAR (acute kidney injury) ([facility]) 06/07/2023 Alcohol use disorder, severe, dependence ([facility]) 08/24/2011 Pt with long history of severe alcohol dependence with multiple hospitalizations, history of withdrawal, history of withdrawal seizures, liver disease and dangerous supratheraputic INRs. Risks discussed at each visit. -continue thiamine and folate -continue with alcohol use disorder clinic -continue with therapist and psychiatrist -continue Acamprosate 333 mg 2 tabs BID started 06/09/23 Alcohol withdrawal ([facility]) 04/15/2023 Alcoholic liver disease ([facility]) 10/20/2023 Lab Results Component Value Date AST 97 (H) 03/10/2024 AST 26 01/19/2024 AST 21 08/10/2022 ALT 84 (H) 03/10/2024 ALT 171 (H) 01/19/2024 ALT 20 08/10/2022 ALT 22 08/22/2020 TOTALBILIRUB 7.1 (H) 03/10/2024 TOTALBILIRUB 0.4 01/19/2024 INR Ambien accidental overdose, subsequent encounter 06/09/2023 Confirmed with psychiatry that he is off Ambien. Anticoagulated on Coumadin 06/09/2023 For prosthetic valve. INR goal 2.5-3.5 -pt discharged from multiple clinics for non adherence and uncontrolled INRs. Now followed by PCP for INR -was on Lovenox which is not FDA approved but pt did not like it and wanted to go back on coumadin. 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 -euvolemic on exam -EF 30-35% 05/2020 -has pacemaker and mechanical aortic valve -echo 11/23/2023: moderate concentric LVH, global hypokinesis of LV contractility, EF 40-45%, indeterminate, mild pulmonary HTN diastolic dysfuntion -seen by Dr. Marcos Verdin MD 03/10/24 Chronic midline low back pain 04/01/2022 PT continues to request narcotics. Not a candidate due to severe EtOH use. Avoid all sedating medications. Judicious use of acetaminophen. He has seen PT, pain management and tried lidocaine patches Chronic systolic CHF (congestive heart failure) ([facility]) 12/24/2022 Coronary artery disease 05/07/2022 -Cardiac catheretization 05/2020 revealed severe lesion in the mid LAD. He underwent orbital arthrectomy with CSI and had a stent placed. -Echo 05/2020 showed an EF of 30-35% -Continue Plavix and coumadin x 1 yr. After 06/2021, d/c Plavix, restart aspirin and continue coumadin. -Continue atorvastatin 20mg daily (dose limited by transaminitis in setting of heavy EtOH use) -Continue metoprolol ER Depressive disorder 09/14/2011 Denies AMELIA. -Continue with therapist and psychiatrist. Gastroesophageal reflux disease 05/07/[address] Martínez 09/2016 revealed evidence of Harrell's Esophagitis, no dysplasia. Continue ompprazole 40mg bid via GI. Last GI note is from 08/18/2019, recommending EDG after September 2019 for 3 year follow up of Barretts. History of GI bleed 03/03/2023 -Hgb on admission 02/09/23 12.9. Baseline 11-13. Hemocult was positive. Pt now back on Plavix and Coumadin per cardiology. -check CBC and iron studies -Advise follow up with GI to complete outpatient scope with Dr. Lisbeth Johnson. We left a message with their office 03/03/23 History of prosthetic heart valve 08/08/[address] [facility] mechanical aortic [...] pt did not tolerate injections and hematology re History of subarachnoid hemorrhage 04/01/2022 -Hospitalized for subarachnoid hemorrhage 10/2021 at [facility] after fall in the setting of supratheraputic INR of 16 and heavy alcohol use. He was changed to lovenox but could not tolerate the injections. Back on coumadin with improved INRs. He is also on plavix. ER precautions discussed. 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 Slight enlargement left paratracheal lymph node. 3 month follow-up LDCT recommended. LDCT ordered 10/22/23 Mild intermittent asthma 01/04/2017 Well controlled. Pacemaker Paroxysmal atrial fibrillation ([facility]) 05/07/2022 Asymptomatic. Rate controlled -continue metprolol succinate -patient is on Coumadin Presence of cardiac pacemaker 03/07/2014 -Hx of [facility] dual chamber PPM with extraction of device from the left side and reimplantation ofthe right side. For complete heart block. Primary insomnia 05/07/2022 - Likely due to or at least [...] my cell phone number to coordinate medications, min Rhabdomyolysis 06/09/2023 Sepsis ([facility]) 06/09/2023 Subtherapeutic anticoagulation 05/07/2022 Pt INR severely uncontrolled ranging from subtheraputic to as high as 16. He has been discharged from 2 coumadin clinics, cardiology, and multiple VNAs. Now managed by our clinic and the VNS. He understands he is high risk for due to drinking alcohol in the setting of coumadin. Tobacco dependence 12/30/2011 -Cigg/day: more than 1 pack- daily -Age started: 11 years old -Total years smokin -Pack year history: 25 Encouraged smoking cessation resources such as pharmacomtherapy, [facility] smoking cessation group, and [facility] pharmacy smoking cessation clinic -currently smoke cigarettes or quit within the past 15 years. - LDCT: ordered 10/22/23, pt wants to wait till Spring to get it done. In precontempl Vitamin B 12 deficiency 05/07/2022 -B12 normal 08/2020 without supplementation -rechecking Vit B level 01/19/24 Warfarin toxicity 12/24/2022 Medications: Outpatient Encounter Medications as of 05/03/2024 Medication Sig Dispense Refill albuterol (Ventolin HFA) 108 (90 Base) MCG/ACT inhaler INHALE 2 PUFFS BY MOUTH EVERY 4 TO 6 HOURS NEEDED 18 g 3 budesonide-formoterol (Symbicort) 160-4.5 MCG/ACT inhaler INHALE 2 PUFFS BY MOUTH TWICE DAILY IN THE MORNING AND AT BEDTIME RINSE MOUTH AFTER USING. DO NOT SWALLOW 10.2 g 2 busPIRone (Buspar) 10 MG tablet Take by mouth [address] Carlton Shultzxialexis 10 MG Take 10 mg by mouth in the morning. ferrous sulfate 325 (65 Fe) MG EC tablet TAKE 1 TABLET BY MOUTH EVERY DAY DO NOT BREAK, CRUSH, DISSOLVE OR CHEW 90 tablet 0 Ferrous Sulfate Dried ER 143 (45 Fe) MG tablet controlled-release Take 45 mg by mouth. folic acid (Folvite) 1 MG tablet TAKE 1 TABLET BY MOUTH EVERY MORNING 90 tablet 3 furosemide (Lasix) 20 MG tablet Take 1 tablet (20 mg) by mouth Once per day. 90 tablet 3 gabapentin (Neurontin) 100 MG capsule Take 1 capsule (100 mg) by mouth 3 times daily. 90 capsule 3 hydrOXYzine pamoate (Vistaril) 50 MG capsule Take by mouth. Dr. Vincetn lactulose (Chronulac) 10 GM/15ML solution Take 30 mL (20 g) by mouth 3 times daily. 237 mL 3 lidocaine (Lidoderm) 5 % patch Remove & discard patch within 12 hours or as directed by MD. 30 patch 5 melatonin 5 MG tablet TAKE 2 TABLETS BY MOUTH EVERY DAY AT BEDTIME NEEDED FOR SLEEP 60 tablet 3 metoprolol succinate XL (Toprol-XL) 25 MG 24 hr tablet Take 1 tablet (25 mg) by mouth Once per day.90 tablet 3 metoprolol succinate XL (Toprol-XL) 25 MG 24 hr tablet Take 25 mg by mouth. pantoprazole (ProtoNix) 40 MG EC tablet TAKE 1 TABLET BY MOUTH TWICE DAILY IN THE MORNING AND IN THE EVENING 180 tablet 1 spironolactone (Aldactone) 25 MG tablet Take 1 tablet (25 mg) by mouth Once per day. 90 tablet 3 thiamine (Vitamin B-1) 100 MG tablet TAKE 1 TABLET BY MOUTH EVERY MORNING 90 tablet 3 warfarin (Coumadin) 5 MG tablet TAKE 1 TO 2 TABLETS BY MOUTH EVERY DAY DIRECTED BY COUMADIN CLINIC 60 tablet 2 No facility-administered encounter medications on file as of 05/03/2024. Subjective: Pain: moderate, not present at this time Duration: >5 days Objective: Tooth: #15 Radiographs Taken: Panoramic Radiographic Findings: Decay and Periapical Radiolucency Clinical Findings: Plaque calculus inflamed gingiva Swelling: Tenderness and Intraoral swelling Endo Testing: N/A Perio: Erythematous gingival Other Findings: Missing teeth acquired Diagnosis: Dental abscess, caries Assessment/Plan: EOE X ray Medical clearance request, cardiac, hepatic and biliary problems Prescription to control infection Prescriptions: Sent to [facility] on file Pt tolerated procedure well, all questions answered. Dismissed in good condition. NV: DIGNA X rays V. Exo # 15 ? Institutional Aide: Roxy Cleaning Dentist: Panchito Lamas DDS documented in this encounter Plan of Treatment Upcoming Encounters Date Type Department Care Team (Late st Contact Info) Description 06/08/2024 9:30 AM EST Office Visit [facility] [address] [place] [address] Panchito Lamas DDS [address] [place] [address] Scheduled Orders Name Type Priority Associated Diagnoses Orde r Schedule 15 15 EXTRACTION, ERUPTED TOOTH OR EXPOSED ROOT (ELEVATION AND/OR FORCEPS REMOVAL) Dental Routine 1 Occurrences s tarting 05/03/2024 documented as of this encounter Procedures Procedure Name Priority Date/Time Associated Diagnosis Comments PANORAMIC RADIOGRAPHIC IMAGE Routine 05/03/2024 1:00 PM EST LIMITED ORAL EVALUATION - PROBLEM FOCUSED Routine 05/03/2024 1:00 PM EST ADJUNCTIVE GENERAL SERVICES - PROFESSIONAL VISITS - CASE PRESENTATION, SUBSEQUENT TO DETAILED AND EXTENSIVE TREATMENT PLANNING Routine 05/03/2024 1:00 PM EST documented in this encounter Visit Diagnoses Diagnosis Dental abscess- Primary Periapical abscess without sinus Dental caries Unspecified dental caries documented in this encounter Additional Health Concerns Assessment Noted Time PHQ-9 Depression Total Score: 0 06/09/19 24 9:13 AM EST documented as of this encounter Care Teams Pet Walker Relationship Specialty Start Date End Date Nathalie Hsu MD [address] [place] [address] PCP - General Family Medicine 09/27/13 Shannan Barrow, RN [address] [place] [address] Registered Nurse 02/29/24 Lisbeth Johnson [address] [place] [address] Drive 3rd [place] [address] Gastroenterology 03/15/24 Tonya Poole Sap Bw ArchitectButcher Chicken And Fish 01/19/24 Raman ([facility]) Registered Nurse 02/29/24 Marcos Verdin MD [place] [facility] [address] [place] [address] Cardiology 03/10/24 Omid Vincent Psychiatry 03/15/24 documented as of this encounter
--- OUTSIDE RECORDS SUMMARY | 2024-05-04 17:47 | XMS_ITS | Encounter Summary ---
Author Organization [employer] Address [address] [place] [address] Care Team Providers Care Belt Polisher Name Role Phone Nathalie Hsu MD Primary Care Provider [phone]- [phone] Shannan Barrow RN Unavailable [phone] Lisbeth Johnson Unavailable Encounter Details Date Type Department Care Team (Late st Contact Info) Description 11/08/2023 Telephone [facility] [address] [place], [place] [phone] Nathalie Hsu MD [address] [place], [place] [phone] Social History Tobacco Use Types Packs/Day Years [...] Y/N: Yes Provider name or facility name: [facility] MRI DEPT) Facility Address: [address] [place] [address] Escort needed: Y/N: Yes Do you have a wheelchair: Y/N: No If yes- Manual or electric: Visits: once a month documented in this encounter Plan of Treatment Upcoming Encounters Date Type Department Care Team ([facility] st Contact Info) Description 06/08/2024 9:30 AM EST Office Visit [facility] ADULT DENTAL [address] [place], [place] [phone] Panchito Lamas DDS [address] [place], [place] [phone] documented as of this encounter Visit Diagnoses Not on filedocumented in this encounter Additional Health Concerns Assessment Noted Time PHQ-9 Depression Total Score: 0 06/09/19 24 9:13 AM EST documented as of this encounter Care Teams Belt Polisher Relationship Specialty Start Date End Date Nathalie Hsu MD [address] [place] [address] PCP - General Family Medicine 09/27/13 Shannan Barrow, RN [address] [place] [address] Registered Nurse 02/29/24 Lisbeth Johnson [address] [place] [address] 3rd [place] [address] Gastroenterology 03/15/24 Tonya Poole Manager CardiacMath Coach 01/19/24 Raman ([facility]) Registered Nurse 02/29/24 Marcos Verdin MD [place] [facility] [address] [place] [address] Cardiology 03/10/24 Omid Vincent Psychiatry 03/15/24 documented as of this encounter
--- OUTSIDE RECORDS SUMMARY | 2024-05-04 17:47 | XMS_ITS | Encounter Summary ---
Author Organization [employer] Address [address] [place] [address] Care Team Providers Care Manager Client Support Name Role Phone Nathalie Hsu MD Primary Care Provider [phone] Shannan Barrow RN Unavailable [phone] Lisbeth Johnson Unavailable Reason for Visit * Reason Onset Date Comments Results 01/12/2023 INR Encounter Details Date Type Department Care Team (Late st Contact Info) Description 01/12/2023 Telephone [facility] MED[facility] [address] [place] [address] Nahtalie Hsu MD [address] [place], [place] [phone] Results (INR) Social History Tobacco Use Types [...] 12:36 PM EDT Tc from [facility] reporting INR results. Please call [phone] documented in this encounter Plan of Treatment Upcoming Encounters Date Type Department Care Team (Late st Contact Info) Description 06/08/2024 9:30 AM EST Office Visit [facility] ADULT DENTAL [address] [place] [address] Panchito Lamas DDS [address] [place] [address] documented as of this encounter Visit Diagnoses Not on filedocumented in this encounter Additional Health Concerns Assessment Noted Time PHQ-9 Depression Total Score: 6 05/08/19 23 10:33 AM EST documented as of this encounter Care Teams Manager Client Support Relationship Specialty Start Date End Date Nathalie Hsu MD [address] [place] [address] PCP - General Family Medicine 09/27/13 Shannan Barrow, RN [address] [place] [address] Registered Nurse 02/29/24 Lisbeth Johnson [address] [place] [address] 3rd [place] [address] Gastroenterology 03/15/24 Tonya Poole Truer Pinion And WheelGuest Services Representative 01/19/24 Raman ([facility]) Registered Nurse 02/29/24 MD [facility] [facility] [address] [place] [address] Cardiology 03/10/24 Omid Vincent Psychiatry 03/15/24 documented as of this encounter
--- OUTSIDE RECORDS SUMMARY | 2024-05-04 17:47 | XMS_ITS | Encounter Summary ---
Author Organization [employer] Address [address] [place] [address] Care Team Providers Care Jail Guard Name Role Phone Nathalie Hsu MD Primary Care Provider [phone] Shannan Barrow RN Unavailable [phone] Lisbeth Johnson Unavailable Reason for Visit * Reason Comments Med Refill Encounter Details Date Type Department Care Team (Late st Contact Info) Description 02/28/2023 Refill [facility] [address] [place], [place] [phone] Nathalie Hsu MD [address] [place], [place] [phone] Social History Tobacco Use Types Packs/Day Years [...] Description 06/08/2024 9:30 AM EST Office Visit [facility] ADULT DENT[facility] [address] [place] [address] Panchito Lamas DDS [address] [place] [address] documented as of this encounter Visit Diagnoses Not on filedocumented in this encounter Additional Health Concerns Assessment Noted Time PHQ-9 Depression Total Score: 6 05/08/19 23 10:33 AM EST documented as of this encounter Care Teams Jail Guard Relationship Specialty Start Date End Date Nathalie Hsu MD [address] [place] [address] PCP - General Family Medicine 09/27/13 Shannan Barrow, RN [address] [place] [address] Registered Nurse 02/29/24 Lisbeth Johnson [address] [place] [address] Drive 3rd [place] [address] Gastroenterology 03/15/24 Tonya Poole Serging Machine Operator AutomaticLab Courier 01/19/24 Raman ([facility]) Registered Nurse 02/29/24 Marcos Verdin MD [place] [facility] [address] [place] [address] Cardiology 03/10/24 Omid Vincent Psychiatry 03/15/24 documented as of this encounter
--- OUTSIDE RECORDS SUMMARY | 2024-05-04 17:47 | XMS_ITS | Encounter Summary ---
Author Organization [employer] Address [address] [place] [address] Care Team Providers Care Contingents Supervisor Name Role Phone Nathalie Hsu MD Primary Care Provider [phone] Shannan Barrow RN Unavailable [phone] Lisbeth Johnson Unavailable Reason for Visit * Reason Onset Date Comments Paperwork/Forms 05/03/2024 Encounter Details Date Type Department Care Team (Late st Contact Info) Description 05/03/2024 Telephone [facility] [address] [place], [place] [phone] Shannan Barrow, RN [address] [place], [place] [phone] Paperwork/Forms Social History Tobacco Use Types Packs/Day Years [...] Telephone Encounter - Shannan Barrow RN - 05/03/2024 2:02 PM EST Received form from pt's dental office requesting PCP consult on POC and signature for dental procedures. Placed on PCP's desk, pending signature. documented in this encounter Plan of Treatment Upcoming Encounters Date Type Department Care Team (Late st Contact Info) Description 06/08/2024 9:30 AM EST Office Visit [facility] ADULT DENTAL [address] [place] [address] Panchito Lamas DDS [address] [place] [address] documented as of this encounter Visit Diagnoses Not on filedocumented in this encounter Additional Health Concerns Assessment Noted Time PHQ-9 Depression Total Score: 0 06/09/19 24 9:13 AM EST documented as of this encounter Care Teams Contingents Supervisor Relationship Specialty Start Date End Date Nathalie Hsu MD [address] [place] [address] PCP - General Family Medicine 09/27/13 Shannan Barrow, RN [address] [place] [address] Registered Nurse 02/29/24 Lisbeth Johnson [address] [place] [address] 3rd [place] [address] Gastroenterology 03/15/24 Tonya Poole Second Hand Paper MachineDining Room Busser 01/19/24 Raman ([facility]) Registered Nurse 02/29/24 Marcos Verdin MD [place] [facility] [address] [place] [address] Cardiology 03/10/24 Omid Vincent Psychiatry 03/15/24 documented as of this encounter
--- OUTSIDE RECORDS SUMMARY | 2024-05-04 17:47 | XMS_ITS | Encounter Summary ---
Author Organization [facility] Address [address] [facility] [address]t [place] [address] Care Team Providers Care Cocktail Waitress Name Role Phone [place], Nathalie ABDI Primary Care Provider + [phone] Shannan Barrow RN Unavailable [phone] Lisbeth Johnson Unavailable Encounter Details Date Type Department Care Team (Late st Contact Info) Description 11/27/2022 Orders Only [facility] [address] [place] [address] Jose Dockery [address] [place] [address] Social History Tobacco Use Types Packs/Day Years [...] Description 06/08/2024 9:30 AM EST Office Visit [facility] [address] [place] [address] Panchito Lamas DDS [address] [place], [place] [phone] documented as of this encounter Visit Diagnoses Not on filedocumented in this encounter Additional Health Concerns Assessment Noted Time PHQ-9 Depression Total Score: 6 05/08/19 23 10:33 AM EST documented as of this encounter Care Teams Cocktail Waitress Relationship Specialty Start Date End Date Nathalie Hsu MD [address] [place] [address] PCP - General Family Medicine 09/27/13 Shannan Barrow, RN [address] [place] [address] Registered Nurse 02/29/24 Lisbeth Johnson [address] [place] [address] 3rd [place] [address] Gastroenterology 03/15/24 Tonya Poole Repairer Resistance Welding MachinesSolar Designer/Installer 01/19/24 Raman ([facility]) Registered Nurse 02/29/24 Marcos Verdin MD [place] [facility] [address] [place] [address] Cardiology 03/10/24 Omid Vincent Psychiatry 03/15/24 documented as of this encounter
--- OUTSIDE RECORDS SUMMARY | 2024-05-04 17:47 | XMS_ITS | Encounter Summary ---
Author Organization [employer] Address [address] [place] [address] Care Team Providers Care Spanish Language Lecturer Name Role Phone Nathalie Hsu MD Primary Care Provider [phone] Shannan Barrow RN Unavailable [phone] Lisbeth Johnson Unavailable Encounter Details Date Type Department Care Team (Late st Contact Info) Description 05/12/2023 Orders Only [facility] [address] [place], [place] [phone] Nathalie Hsu MD [address] [place], [place] [phone] Social History Tobacco Use Types Packs/Day Years [...] 9:30 AM EST Office Visit [facility] ADULT DENTAL [address] [place] [address] Panchito Lamas DDS [address] [place] [address] documented as of this encounter Visit Diagnoses Not on filedocumented in this encounter Additional Health Concerns Assessment Noted Time PHQ-9 Depression Total Score: 6 05/08/19 23 10:33 AM EST documented as of this encounter Care Teams Spanish Language Lecturer Relationship Specialty Start Date End Date Nathalie Hsu MD [address] [place] [address] PCP - General Family Medicine 09/27/13 Shannan Barrow, KHAI [address] [place] [address] Registered Nurse 02/29/24 Lisbeth Johnson [address]rd [place] [address] Gastroenterology 03/15/24 Tonya Poole D[employer]ified Crops Ii FarmworkerPhotoengraving Proofer 01/19/24 Raman ([facility]) Registered Nurse 02/29/24 Marcos Verdin MD [place] [facility] [address] [place] [address] Cardiology 03/10/24 Oimd Vincent Psychiatry 03/15/24 documented as of this encounter
--- OUTSIDE RECORDS SUMMARY | 2024-05-04 17:47 | XMS_ITS | Encounter Summary ---
Author Organization [employer] Address [address] [facility] [address] 7t [place] [address] Care Team Providers Care Churn Driller Helper Name Role Phone Nathalie Hsu MD Primary Care Provider +1- [phone] Shannan Barrow RN Unavailable [phone] Lisbeth Johnson Unavailable Reason for Visit * Reason Onset Date Comments Coagulation Disorder 05/12/2023 Encounter Details Date Type Department Care Team (Late st Contact Info) Description 05/12/2023 Telephone [facility] MEDICINE [address] [place], [place] [phone] Nathalie Hsu MD 230 [place], [place] [phone] Coagulation Disorder Social History Tobacco Use Types [...] to report INR. Please contact raman at [phone] documented in this encounter Plan of Treatment Upcoming Encounters Date Type Department Care Team (Late st Contact Info) Description 06/08/2024 9:30 AM EST Office Visit [facility] ADULT DENTAL [address] [place], [place] [phone] Panchito Lamas DDS [address] [place] [address] documented as of this encounter Visit Diagnoses Not on filedocumented in this encounter Additional Health Concerns Assessment Noted Time PHQ-9 Depression Total Score: 6 05/08/19 23 10:33 AM EST documented as of this encounter Care Teams Churn Driller Helper Relationship Specialty Start Date End Date Nathalie Hsu MD [address] [place], [place] [phone] PCP - General Family Medicine 09/27/13 Shannan Barrow, KHAI [address] [place] [address] Registered Nurse 02/29/24 Lisbeth Johnson [address] [place] [address] Drive 3rd [place] [address] Gastroenterology 03/15/24 Tonya Poole Client Care RepresentativeSemiconductor Lab Technician 01/19/24 Raman (A [facility]) Registered Nurse 02/29/24 Marcos Verdin MD [place] [facility] [address] [place] [address] Cardiology 03/10/24 Omid Vincent Psychiatry 03/15/24 documented as of this encounter
--- OUTSIDE RECORDS SUMMARY | 2024-05-04 17:47 | XMS_ITS | Encounter Summary ---
Author Organization [employer] Address [address] [facility] [address] [facility] [address] 7t [place] [address] Care Team Providers Care Ship Ceiler Name Role Phone Nathalie Hsu MD Primary Care Provider [phone]- [phone] Shannan Barrow RN Unavailable [phone] Lisbeth Johnson Unavailable Reason for Visit * Reason Onset Date Comments INR report 03/31/2023 Encounter Details Date Type Department Care Team (Late st Contact Info) Description 03/31/2023 Telephone [facility] MEDICINE 230 [place], [place] [phone] Nathalie Hsu MD 230 [place], [place] [phone] INR report Social History Tobacco Use Types [...] encounter Miscellaneous Notes * Telephone Encounter - Dalicassandra Keenan Bouchra - 03/31/2023 3:39 PM EST Tc from Raman VALE with [employer] requesting a call from a nurse to report an INR results. Please contact Raman @ [phone] documented in this encounter Plan of Treatment Upcoming Encounters Date Type Department Care Team (Late st Contact Info) Description 06/08/2024 9:30 AM EST Office Visit [facility] ADULT DENTAL 230 [place] [address] Panchito Lamas DDS 230 [place] [address] documented as of this encounter Visit Diagnoses Not on filedocumented in this encounter Additional Health Concerns Assessment Noted Time PHQ-9 Depression Total Score: 6 05/08/19 23 10:33 AM EST documented as of this encounter Care Teams Ship Ceiler Relationship Specialty Start Date End Date Nathalie Hsu MD 230 [place], [place] [phone] PCP - General Family Medicine 09/27/13 Shannan Barrow, KHAI [address] [place] [address] Registered Nurse 02/29/24 Lisbeth Johnson [address] [place] [address] Drive 3rd [place] [address] Gastroenterology 03/15/24 Tonya Poole Fish Net MakerSenior Audit Manager 01/19/24 Raman (A [facility]) Registered Nurse 02/29/24 Marcos Verdin MD [place] [facility] [address] [place] [address] Cardiology 03/10/24 Omid Vincent Psychiatry 03/15/24 documented as of this encounter
--- OUTSIDE RECORDS SUMMARY | 2024-05-04 17:47 | XMS_ITS | Encounter Summary ---
Author Organization [employer] Address [address] [facility] [address] 7t [place] [address] Care Team Providers Care Forensic Anthropologist Name Role Phone Nathalie Hsu MD Primary Care Provider +1- [phone] Shannan Barrow RN Unavailable [phone] Lisbeth Johnson Unavailable Reason for Visit * Reason Comments Med Refill Encounter Details Date Type Department Care Team (Late st Contact Info) Description 02/12/2023 Refill [facility] MEDICINE 230 [place], [place] [phone] Nathalie Hsu MD 230 [place], [place] [phone] Pain Social History Tobacco Use Types Packs/Day [...] Description 06/08/2024 9:30 AM EST Office Visit [facility] ADULT DENTAL 230 [place] [address] Panchito Lamas DDS 230 [place] [address] documented as of this encounter Visit Diagnoses Diagnosis Pain Generalized pain documented in this encounter Additional Health Concerns Assessment Noted Time PHQ-9 Depression Total Score: 6 05/08/19 23 10:33 AM EST documented as of this encounter Care Teams Forensic Anthropologist Relationship Specialty Start Date End Date Nathalie Hsu MD 230 [place] [address] PCP - General Family Medicine 09/27/13 Shannan Barrow, KHAI [address] [place] [address] Registered Nurse 02/29/24 Lisbeth Johnson [address] [place] [address] Drive 3rd [place] [address] Gastroenterology 03/15/24 Tonya Poole Swiss Type Screw Machine OperatorDesign Engineering Specialist 01/19/24 Raman (A S) Registered Nurse 02/29/24 Marcos Verdin MD [place] [facility] [address] [place] [address] Cardiology 03/10/24 Omid Vincent Psychiatry 03/15/24 documented as of this encounter
--- OUTSIDE RECORDS SUMMARY | 2024-05-04 17:47 | XMS_ITS | Encounter Summary ---
Author Organization [employer] [facility] Address [address] [facility] [address] 7t [place] [address] Care Team Providers Care Carpet Yarn Winder Operator Name Role Phone Nathalie Hsu MD Primary Care Provider [phone]- [phone] Shannan Barrow RN Unavailable [phone] Lisbeth Johnson Unavailable Encounter Details Date Type Department Care Team (Late Contact Info) Description 05/12/2022 Abstract [facility] MEDICINE [address] [place] [address] Nathalie Hsu MD [address] [place] [address] Social History Tobacco Use Types Packs/Day Years [...] Encounters Date Type Department Care Team (Late Contact Info) Description 06/08/2024 9:30 AM EST Office Visit [facility] ADULT DENTAL 230 [place] [address] Panchito Lamas, DDS 230 [place] [address] documented as of this encounter Procedures Procedure Name Priority Date/Time Associated Diagnosis Comments COLONOSCOPY Routine 03/05/2012 documented in this encounter Results * Colonoscopy (03/05/2012) Colonoscopy Dr. Zhang us Historical Provider HEALTH MAINTENANCE Final Result documented in this encounter Visit Diagnoses Not on filedocumented in this encounter Additional Health Concerns Assessment Noted Time PHQ-9 Depression Total Score: 6 05/08/19 23 10:33 AM EST documented as of this encounter Care Teams Carpet Yarn Winder Operator Relationship Specialty Start Date End Date Nathalie Hsu MD 230 [place] [address] PCP - General Family Medicine 09/27/13 Shannan Barrow, KHAI 230 [place] [address] Registered Nurse 02/29/24 Lisbeth Johnson [address] [place] [address] 3rd [place] [address] Gastroenterology 03/15/24 Tonya Poole Senior Maintenance TechnicianSorter Operator 01/19/24 Raman (A [facility]) Registered Nurse 02/29/24 Marcos Verdin MD [place] [facility] [address] [place] [address] Cardiology 03/10/24 Omid Vincent Psychiatry 03/15/24 documented as of this encounter
--- OUTSIDE RECORDS SUMMARY | 2024-05-04 17:47 | XMS_ITS | Encounter Summary ---
Author Organization [employer] [facility] Address [address] [facility] [address] [facility] [address] 7t [place] [address] Care Team Providers Care Deputy Grand Jury Name Role Phone Nathalie Hsu MD Primary Care Provider [phone]- [phone] Shannan Barrow RN Unavailable [phone] Lisbeth Johnson Unavailable Encounter Details Date Type Department Care Team (Late st Contact Info) Description 08/11/2023 Telephone [facility] MEDICINE 230 [place], [place] [phone] Nathalie Hsu MD 230 [place], [place] [phone] Social History Tobacco Use Types Packs/Day Years [...] Description 06/08/2024 9:30 AM EST Office Visit [facility] ADULT DENTAL 230 [place] [address] Panchito Lamas DDS 230 [place] [address] documented as of this encounter Visit Diagnoses Not on filedocumented in this encounter Additional Health Concerns Assessment Noted Time PHQ-9 Depression Total Score: 0 06/09/19 24 9:13 AM EST documented as of this encounter Care Teams Deputy Grand Jury Relationship Specialty Start Date End Date Nathalie Hsu MD [address] [place] [address] PCP - General Family Medicine 09/27/13 Shannan Barrow, KHAI [address] [place] [address] Registered Nurse 02/29/[address] 3rd [place] [address] Gastroenterology 03/15/24 Tonya Poole Shale Processing TechnicianBacon De Rinder 01/19/24 Raman (A S) Registered Nurse 02/29/24 Marcos Verdin MD [place] [facility] [address] [place] [address] Cardiology 03/10/24 Omid Vincent Psychiatry 03/15/24 documented as of this encounter
--- OUTSIDE RECORDS SUMMARY | 2024-05-04 17:47 | XMS_ITS | Encounter Summary ---
Author Organization [employer] Address [address] [facility] [address] 7t [place] [address] Care Team Providers Care Carton And Can Supply Supervisor Name Role Phone Nathalie Hsu MD Primary Care Provider [phone]- [phone] Shannan Barrow RN Unavailable [phone] Lisbeth Johnson Unavailable Reason for Visit * Reason Onset Date Comments Anticoagulation 05/02/2024 Encounter Details Date Type Department Care Team (Late st Contact Info) Description 05/02/2024 Telephone [facility] MEDICINE [address] [place], [place] [phone] Nathalie Hsu MD 230 [place], [place] [phone] Anticoagulation Social History Tobacco Use Types Packs/Day [...] Telephone Encounter - Shannan Barrow RN - 05/02/2024 1:24 PM EST S: Pt is due for PT/INR today due to hx of DVT's. Pt's target INR is 2.5-3.5. This RN spoke with KAVIN Duff who denies any new medications or changes in diet. Pt has been compliant with INR draws. Anyaorts he is doing well. O: INR today is: 3.1. Pt current dose is 5mg Tu, Th, Benoit, M/ 2.5mg the rest of the week. A: Hx of DVT Risk for blood clot due to sub therapeutic INR Hx of afib Hx of prosthetic heart valve P: Pt is to take 5mg Tu, Th, Benoit/ 5mg the rest of the week and recheck INR 05/09/24. [facility] aware of dosing and draw date. Shannan Barrow RN * Telephone Encounter - Theresa Stover RN - 05/02/2024 12:13 PM EST Incoming call to the Critical Result line 05/02/24 at 12:13 PM Name of Caller/Facility: [facility] Callback number: [phone] Reason for Call: INR 3.1 today 05/02/24 Message to be forwarded to Nathalie Hsu MD and team nurses for follow up. documented in this encounter Plan of Treatment Upcoming Encounters Date Type Department Care Team (Late st Contact Info) Description 06/08/2024 9:30 AM EST Office Visit [facility] ADULT DENTAL 230 [place], [place] [phone] Panchito Lamas DDS [address] [place], [place] [phone] documented as of this encounter Procedures Procedure Name Priority Date/Time Associated Diagnosis Comments PROTHROMBIN TIME-INR Routine 05/02/2024 documented in this encounter Results * Prothrombin Time-INR (05/02/2024) INR 3.10 2.50 - 3.50 [facility] Protime [facility] Blood Venous blood specimen / Unknown Nathalie Hsu MD LAB BLOOD ORDERABLES Final Result [facility] [address] [place] [address] [phone] documented in this encounter Visit Diagnoses Diagnosis History of prosthetic heart valve documented in this encounter Additional Health Concerns Assessment Noted Time PHQ-9 Depression Total Score: 0 06/09/19 24 9:13 AM EST documented as of this encounter Care Teams Carton And Can Supply Supervisor Relationship Specialty Start Date End Date Nathalie Hsu MD 230 [place], [place] [phone] PCP - General Family Medicine 09/27/13 Shannan Barrow, RN 230 [place] [address] Registered Nurse 02/29/24 Lisbeth Johnson [address] [facility] 3rd [place] [address] Gastroenterology 03/15/24 Tonya Poloe Turret Punch Press OperatorArtificial Inseminator 01/19/24 Raman (A S) Registered Nurse 02/29/24 Marcos Verdin MD [place] [facility] [address] [place] [address] Cardiology 03/10/24 Omid Vincent Psychiatry 03/15/24 documented as of this encounter
--- OUTSIDE RECORDS SUMMARY | 2024-05-04 17:47 | XMS_ITS | Encounter Summary ---
Author Organization [employer] [facility] Address [address] [facility] [address] 7t [place] [address] Care Team Providers Care Lithographic Proofer Apprentice Name Role Phone Nathalie Hsu MD Primary Care Provider [phone]- [phone] Shannan Barrow RN Unavailable [phone] Lisbeth Johnson Unavailable Reason for Visit * Reason Comments Med Refill Encounter Details Date Type Department Care Team (Late st Contact Info) Description 05/03/2024 Refill [facility] MEDICINE 230 [place], [place] [phone] Nathalie Hsu MD 230 [place], [place] [phone] Alcoholic liver disease (CMS/HCC) Social History Tobacco Use Types Packs/Day Years [...] Description 06/08/2024 9:30 AM EST Office Visit [facility] ADULT DENTAL 230 [place] [address] Panchito Lamas DDS [address] [place] [address] documented as of this encounter Visit Diagnoses Diagnosis Alcoholic liver disease (CMS/HCC) Unspecified alcoholic liver damage documented in this encounter Additional Health Concerns Assessment Noted Time PHQ-9 Depression Total Score: 0 06/09/19 24 9:13 AM EST documented as of this encounter Care Teams Lithographic Proofer Apprentice Relationship Specialty Start Date End Date Nathalie Hsu MD 230 [place] [address] PCP - General Family Medicine 09/27/13 Shannan Barrow RN 230 [place] [address] Registered Nurse 02/29/24 Lisbeth Johnson [address] [place] [address] 3rd [place] [address] Gastroenterology 03/15/24 Tonya Poole Raisin Separator OperatorCarbon Paper Interleafer 01/19/24 Raman ([facility]) Registered Nurse 02/29/24 Marcos Verdin MD [place] [facility] [address] [place] [address] Cardiology 03/10/24 Omid Vincent Psychiatry 03/15/24 documented as of this encounter
--- OUTSIDE RECORDS SUMMARY | 2024-05-04 17:47 | XMS_ITS | Encounter Summary ---
Author Organization [employer] Address [address] [facility] [address] 7t [place] [address] Care Team Providers Care Dry Primer Powder Blender Name Role Phone Nathalie Hsu MD Primary Care Provider [phone]- [phone] Shannan Barrow RN Unavailable [phone] Lisbeth Johnson Unavailable Reason for Visit * Reason Onset Date Comments Medication Question 02/18/2023 Encounter Details Date Type Department Care Team (Late st Contact Info) Description 02/18/2023 Telephone [facility] MEDICINE 230 [place], [place] [phone] Nathalie Hsu MD 230 [place], [place] [phone] Medication Question Social History Tobacco Use Types [...] - 02/18/2023 9:19 AM EST Tc from [employer] requesting to speak to a nurse in regards to medication warfarin (Coumadin) 5 MG tablet, states would need clarification on directions due to pt INR. Please contact at [phone] documented in this encounter Plan of Treatment Upcoming Encounters Date Type Department Care Team (Late st Contact Info) Description 06/08/2024 9:30 AM EST Office Visit [facility] ADULT DENTAL 230 [place] [address] Panchito Lamas DDS 230 [place] [address] documented as of this encounter Visit Diagnoses Not on filedocumented in this encounter Additional Health Concerns Assessment Noted Time PHQ-9 Depression Total Score: 6 05/08/19 23 10:33 AM EST documented as of this encounter Care Teams Dry Primer Powder Blender Relationship Specialty Start Date End Date Nathalie Hsu MD 230 [place] [address] PCP - General Family Medicine 09/27/13 Shannan Barrow, RN 230 [place] [address] Registered Nurse 02/29/24 Lisbeth Johnson [address] [place] [address] 3rd [place] [address] Gastroenterology 03/15/24 Tonya Poole Brush CleanerExecutive Administrative Asst 01/19/24 Raman ([facility]) Registered Nurse 02/29/24 Marcos Verdin MD [place] [facility] [address] [place] [address] Cardiology 03/10/24 Omid Vincent Psychiatry 03/15/24 documented as of this encounter
--- OUTSIDE RECORDS SUMMARY | 2024-05-04 17:47 | XMS_ITS | Encounter Summary ---
Author Organization [employer] Address [address] [facility] 7t [place] [address] Care Team Providers Care Executive Producer Promos Name Role Phone Nathalie Hsu MD Primary Care Provider [phone] Shannan Barrow RN Unavailable [phone] Lisbeth Johnson Unavailable Encounter Details Date Type Department Care Team (Late st Contact Info) Description 04/01/2022 Orders Only [facility] MEDICINE 230 [place] [address] Anabell Weston, KHAI Social History Tobacco Use [...] [facility] ADULT DENTAL 230 [place] [address] Panchito Lamas DDS [address] [place] [address] documented as of this encounter Visit Diagnoses Not on filedocumented in this encounter Care Teams Executive Producer Promos Relationship Specialty Start Date End Date Nathalie Hsu MD 230 [place] [address] PCP - General Family Medicine 09/27/13 Shannan Barrow, RN 230 [place] [address] Registered Nurse 02/29/24 Lisbeth Johnson [address] [place] [address] 3rd [place] [address] Gastroenterology 03/15/24 Tonya Poole Trial JusticeMotorcycle Tester 01/19/24 Raman (A S) Registered Nurse 02/29/24 Marcos Verdin MD [place] [facility] [address] [place] [address] Cardiology 03/10/24 Omid Vincent Psychiatry 03/15/24 documented as of this encounter
--- OUTSIDE RECORDS SUMMARY | 2024-05-04 17:47 | XMS_ITS | Encounter Summary ---
Author Organization [employer] Address [address] [facility] [address] 7t [place] [address] Care Team Providers Care Cafeteria Monitor Name Role Phone Nathalie Hsu MD Primary Care Provider [phone]- [phone] Shannan Barrow RN Unavailable [phone] Lisbeth Johnson Unavailable Reason for Visit * Reason Comments Med Refill Encounter Details Date Type Department Care Team (Late st Contact Info) Description 11/01/2023 Refill [facility] [address] [place], [place] [phone] Nathalie Hsu MD 230 [place], [place] [phone] Mild intermittent asthma, unspecified whether complicated Social [...] the past 12 months, has t he [employer], gas, 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 threatened to [...] Description 06/08/2024 9:30 AM EST Office Visit [facility] ADULT DENTAL 230 [place] [address] Panchito Lamas DDS [address] [place] [address] documented as of this encounter Visit Diagnoses Diagnosis Mild intermittent asthma, unspecified whether complicated documented in this encounter Additional Health Concerns Assessment Noted Time PHQ-9 Depression Total Score: 0 06/09/19 24 9:13 AM EST documented as of this encounter Care Teams Cafeteria Monitor Relationship Specialty Start Date End Date Nathalie Hsu MD 230 [place] [address] PCP - General Family Medicine 09/27/13 Shannan Barrow, RN [address] [place] [address] Registered Nurse 02/29/24 Lisbeth Johnson [address] [place] [address] Drive 3rd [place] [address] Gastroenterology 03/15/24 Tonya Poole Prize JackerPhoto Producer 01/19/24 Raman ([facility]) Registered Nurse 02/29/24 Marcos Verdin MD [place] [facility] [address] [place], [place] Cardiology 03/10/24 Omid Vincent Psychiatry 03/15/24 documented as of this encounter
--- OUTSIDE RECORDS SUMMARY | 2024-05-04 17:47 | XMS_ITS | Encounter Summary ---
Author Organization [employer] Address [address] [facility] [address] [address] 7t [place] [address] Care Team Providers Care Backhoe Operator Name Role Phone Nathalie Hsu MD Primary Care Provider [phone]- [phone] Shannan Barrow RN Unavailable [phone] Lisbeth Johnson Unavailable Reason for Visit * Reason Onset Date Comments Med Refill 03/09/2024 Encounter Details Date Type Department Care Team (Late st Contact Info) Description 03/09/2024 Telephone [facility] MEDICINE 230 [place], [place] [phone] Nathalie Hsu MD 230 [place], [place] [phone] Med Refill Social History Tobacco Use Types [...] 9:13 AM EST Medication was sent to [facility] on 12/13/23 #60 with 3 refills. * Telephone Encounter - Alf Avilez - 03/09/2024 9:07 AM EST TC from pt requesting medication refill. Medications needing refill : melatonin 5 MG tablet To be sent to: [facility] documented in this encounter Plan of Treatment Upcoming Encounters Date Type Department Care Team (Late st Contact Info) Description 06/08/2024 9:30 AM EST Office Visit [facility] ADULT DENTAL 230 [place] [address] Panchito Lamas DDS 230 [place] [address] documented as of this encounter Visit Diagnoses Not on filedocumented in this encounter Additional Health Concerns Assessment Noted Time PHQ-9 Depression Total Score: 0 06/09/19 24 9:13 AM EST documented as of this encounter Care Teams Backhoe Operator Relationship Specialty Start Date End Date Nathalie Hsu MD 230 [place], [place] [phone] PCP - General Family Medicine 09/27/13 Shannan Barrow, RN [address] [place] [address] [phone] Registered Nurse 02/29/24 Lisbeth Johnson [address] [place] [address] Drive 3rd [place] [address] Gastroenterology 03/15/24 Tonya Poole Yarding And Folding Machine OperatorAcid Bath Mixer 01/19/24 Raman (A [facility]) Registered Nurse 02/29/24 Marcos Verdin MD [place] [facility] [address] [place] [address] Cardiology 03/10/24 Omid Vincent Psychiatry 03/15/24 documented as of this encounter
== END ==
LOC: HO.CARD 13:53
PROVIDERS: PCP Family Medicine; Visit Provider Internal Medicine
DX: I42.9 Cardiomyopathy, unspecified (principal); I49.9 Cardiac arrhythmia, unspecified; Z95.2 Presence of prosthetic heart valve
CPT/HCPCS: 93306

== ENCOUNTER 2024-07-07 12:56 | Outpatient (AMB) | payer MEDICAID, SELFPAY ==
--- NOTE | 2024-07-07 13:23 | MHC.OFFVIS ---
Vital Signs 07/07/24 13:32 Height 5 ft 6 in Weight 188 lb BMI 30.3 Pulse 79 Pulse Source Pulse Oximeter Pulse Oximetry (%) 97 Oxygen Delivery Method Room Air Intake Visit Reasons: Intake Allergies lorazepam [From ATIVAN] Adverse Reaction (Severe, Verified 07/07/24 13:36) OPPOSITE EFFECT PSYCOTIC EFECTS HPI HPI Intake: Details: alcohol use disorder He drinks 4-10 nips a day and smokes pack a day. Dr Lisbeth Johnson of GI where he is seen for cirrhosis wants him seen at Addiction Medicine for alcohol use disorder and tobacco use disorder He wishes to keep all his care at [facility] where he can walk to [facility]. [facility] Medical History Sepsis Rhabdomyolysis EDGAR (acute kidney injury) Supratherapeutic INR Fall Acute hyponatremia Intracranial hemorrhage Coronary artery disease Chronic systolic CHF (congestive heart failure) Hypertension Short-segment Harrell's esophagus Pacemaker Skull fracture Alcoholic liver disease Cocaine abuse Alcohol abuse Surgical History Aortic valve replaced S/P CABG (coronary artery bypass graft) H/O aortic valve replacement History of esophagogastroduodenoscopy (EGD) Social History Household Members: None Housing: Apartment Do you presently have visiting nurse or other home services: Yes ([employer]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) Alcohol intake: current Alcohol intake frequency: a few times a week Alcohol type: beer Comment: pt refused, to have assistance with ambulation, chair and bed alarm Patient Tobacco Use Status: Current everyday Tobacco user Tobacco use type: Cigarette Cigarette Packs Per Day: 1 Cigarettes Per Day: 20.0 Second Hand Smoke Exposure: No Substance Use Type: Marijuana Advance Directives Date on File: 10/11/21 service: No Current occupational status: unemployed Review of Systems Const unobtainable due to endotracheal tube Physical Exam Vital Signs: Last Vital Signs Pulse 79 07/07/24 13:32 Pulse Ox 97 07/07/24 13:32 Oxygen Delivery Method Room Air 07/07/24 13:32 BMI result Body Mass Index 30.3 Const General: cooperative Orientation/consciousness: patient oriented x3 HEENT Head: Yes normal to inspection Mouth: Normal oral and palatal mucosa present Eyes General: appearance normal, both eyes and all related structures Pupils: Equal, round and reactive pupils present Resp Effort & Inspection: normal respiratory effort Cardio Rate: regular rate Rhythm: regular rhythm GI Palpation (GI): Soft to palpation and nontender General: Yes no CVA tenderness Back/Spine/Pelvis Back: no CVA tenderness Skin General skin exam: no rashes or lesions noted Neuro General: patient oriented x3 Cranial nerves: Yes CN's II-XII intact bilaterally and Yes Equal, round and reactive pupils present Extrem General: Yes normal to inspection Psych Other: forgetful Results AMB 14 Panel Urine Drug Screen Urine Marijuana (THC) Negative Last Edit by Connor Hartley CMA on 07/07/24 13:54 Urine Cocaine Negative Last Edit by Connor Hartley CMA on 07/07/24 13:54 Urine Morphine Negative Last Edit by Connor Hartley CMA on 07/07/24 13:54 Urine Methamphetamine Negative Last Edit by Connor Hartley CMA on 07/07/24 13:54 Urine Amphetamine Negative Last Edit by Connor Hartley CMA on 07/07/24 13:54 Urine Benzodiazepine Positive Last Edit by Connor Hartley CMA on 07/07/24 13:54 Urine Barbiturates Negative Last Edit by Connor Hartley CMA on 07/07/24 13:54 Urine Methadone Negative Last Edit by Connor Hartley CMA on 07/07/24 13:54 Urine Buprenorphine Negative Last Edit by Connor Hartley CMA on 07/07/24 13:54 Urine Tricyclic Antidepressant Negative Last Edit by Connor Hartley CMA on 07/07/24 13:54 Urine MDMA Negative Last Edit by Connor Hartley CMA on 07/07/24 13:54 Urine Oxycodone Negative Last Edit by Connor Hartley CMA on 07/07/24 13:54 Urine Phencyclidine Negative Last Edit by Connor Hartley CMA on 07/07/24 13:54 Urine Propoxyphene Negative Last Edit by Connor Hartley CMA on 07/07/24 13:54 Results Reviewed Results Reviewed: Laboratory Last Values POC Urine Buprenorphine Negative 07/07/24 13:36 POC Urine Morphine Negative 07/07/24 13:36 POC Urine Oxycodone Negative 07/07/24 13:36 POC Urine Methadone Negative 07/07/24 13:36 POC Urine Propoxyphene Negative 07/07/24 13:36 POC Urine Barbiturates Negative 07/07/24 13:36 POC U Tricyclic Antidpr Negative 07/07/24 13:36 POC Urine PCP Negative 07/07/24 13:36 POC Ur Amphetamines Negative 07/07/24 13:36 POC Ur Methamphetamine Negative 07/07/24 13:36 POC Urine MDMA Negative 07/07/24 13:36 POC Ur Benzodiazepine Positive 07/07/24 13:36 POC Urine Cocaine Negative 07/07/24 13:36 POC Ur Marijuana (THC) Negative 07/07/24 13:36 Assessment & Plan Assessment & Plan (1) Tobacco abuse: Code(s): Z72.0 - Tobacco use Category: Medical (2) Alcohol use disorder, severe, dependence: Code(s): F10.20 - Alcohol dependence, uncomplicated Category: Medical (3) Difficulty demonstrating health literacy: Code(s): Z55.6 - Problems related to health literacy Category: Medical Plan See [facility] program Orders: Orders AMB 14 Panel Urine Drug Screen Today Z51.81 - Encounter for therapeutic drug level monitoring Coding Level of Care Code New Pt Level 2 (73909) Diagnoses Tobacco abuse Z72.0 Alcohol use disorder, severe, dependence F10.20 Difficulty demonstrating health literacy Z55.6
[2024-07-07 13:32] VITALS: PULSE 79; O2SAT 97; BMI 30.3
--- OUTSIDE RECORDS SUMMARY | 2024-07-07 14:44 | XMS_ITS | Encounter Summary ---
Author Organization [employer] [facility] Address [address] 7t [place] [address] Care Team Providers Care Subway Operator Name Role Phone Nathalie Hsu MD Primary Care Provider [phone] Shannan Barrow RN Unavailable [phone] Lisbeth Johnson Unavailable Reason for Referral * Consultation (Routine) - Authorized Specialty Diagnoses / Procedures Referred By Petar chahal Referred To Contact Optometry Diagnoses Vision loss Nathalie Hsu MD [address] [place] [address] Phone: tel: fax: [facility] OPTOMETRY [address] [place] [address] Phone: tel: fax: Referral ID Status Reason Start Date Expiration Date Visits Requested Visits Authorized [id number] Authorized Consult and Treat 07/05/2024 07/05/2025 1 1 Reason for Visit * Reason Onset Date Comments Referral 07/05/2024 Encounter Details Date Type Department Care Team (Late st Contact Info) Description 07/05/2024 Telephone [facility] MEDICINE [address] [place] [address] Nathalie Hsu MD [address] [place] [address] Referral Social History Tobacco Use Types Packs/Day Years Used Date Smoking Tobacco: Every Day Cigarettes Passive Smoke Exposure: Current Smokeless Tobacco: Never Alcohol Use Standard Drinks/Week Comments Not Currently 0 (1 standard drink = 0.6 oz [...] as of this encounter Miscellaneous Notes * Addendum Note - Jeyson Burt RN - 07/05/2024 2:13 PM EDTAddended by: JEYSON BURT on: 07/05/2024 02:13 PM Modules accepted: Orders * Telephone Encounter - Jeyson Burt RN - 07/05/2024 2:12 PM EDT [facility] vision referral placed per patient request. * Telephone Encounter - Ana Savage - 07/05/2024 1:57 PM EDT Patient walked in requesting eye care referral. Patient was advised of wait list and offered list of different clinics but Patient refused. Would like to be seen at vision center documented in this encounter Plan of Treatment Upcoming Encounters Date Type Department Care Team (Late st Contact Info) Description 07/14/2024 1:00 PM EDT Office Visit [facility] MEDICINE [address] [place] [address] Renny Holloway MD [address] [place] [address] 08/03/2024 8:00 AM EDT Office Visit [facility] ADULT DENTAL [address] [place] [address] Panchito Lamas DDS [address] [place] [address] 01/08/2025 10:00 AM EDT Office Visit [facility] ADULT DENTAL [address] [place] [address] Chiquita Montgomery [address] [place] [address] Scheduled Referrals Name Type Priority Associated Diagnoses Orde r Schedule Referral to [facility] Eye Care Outpatient Referral Routine Vision loss Expected: 07/05/2024 (Approximate), Expires: 07/05/2025 documented as of this encounter Visit Diagnoses Diagnosis Vision loss Unspecified visual loss documented in this encounter Additional Health Concerns Assessment Noted Time PHQ-9 Depression Total Score: 0 06/09/19 24 9:13 AM EST documented as of this encounter Care Teams Subway Operator Relationship Specialty Start Date End Date Nathalie Hsu MD [address] [place] [address] PCP - General Family Medicine 09/27/13 Shannan Barrow, RN [address] [place] [address] Registered Nurse 02/29/24 Lisbeth Johnson [address] [place] [address] 3rd [place] [address] Gastroenterology 03/15/24 Tonya Poole Gas Systems WorkerLog Stacker Operator 01/19/24 Raman (A [facility]) Registered Nurse 02/29/24 Marcos Verdin MD [facility] [address] [place] [address] Cardiology 03/10/24 Omid Vincent Psychiatry 03/15/24 documented as of this encounter
--- OUTSIDE RECORDS SUMMARY | 2024-07-07 14:44 | XMS_ITS | Encounter Summary ---
Author Organization [employer] Address [address] 7t [place] [address] Care Team Providers Care Maintenance Dispatcher Name Role Phone Nathalie Hsu MD Primary Care Provider [phone] Shannan Barrow RN Unavailable [phone] Lisbeth Johnson Unavailable Reason for Visit * Reason Comments Med Refill Encounter Details Date Type Department Care Team (Late st Contact Info) Description 07/03/2024 Refill [facility] [address] [place], [place] [phone] Nathalie Hsu MD [address] [place], [place] [phone] Alcoholic liver disease (CMS/HCC); Anemia, unspecified type Social History Tobacco Use [...] Description 07/14/2024 1:00 PM EDT Office Visit [facility] MED[facility]INE [address] [place] [address] Renny Holloway MD [address] [place] [address] 08/03/2024 8:00 AM EDT Office Visit [facility] ADULT DENTAL [address] [place] [address] Panchito Lamas DDS [address] [place] [address] 01/08/2025 10:00 AM EDT Office Visit [facility] ADULT DENTAL [address] [place] [address] Chiquita Montgomery [address] [place] [address] documented as of this encounter Visit Diagnoses Diagnosis Alcoholic liver disease (CMS/HCC) Unspecified alcoholic liver damage Anemia, unspecified type documented in this encounter Additional Health Concerns Assessment Noted Time PHQ-9 Depression Total Score: 0 06/09/19 24 9:13 AM EST documented as of this encounter Care Teams Maintenance Dispatcher Relationship Specialty Start Date End Date Nathalie Hsu MD [address] [place] [address] PCP - General Family Medicine 09/27/13 Shannan Barrow, KHAI [address] [place] [address] Registered Nurse 02/29/24 Lisbeth Johnson [address] [place] [address] 3rd [place] [address] Gastroenterology 03/15/24 Tonya Poole Bundle WrapperCleaning Specialist 01/19/24 Raman (A [facility]) Registered Nurse 02/29/24 Marcos Verdin MD [facility] [address] [place] [address] Cardiology 03/10/24 Omid Vincent Psychiatry 03/15/24 documented as of this encounter
--- OUTSIDE RECORDS SUMMARY | 2024-07-07 14:44 | XMS_ITS | Encounter Summary ---
Author Organization [employer] Address [address] [place] [address] Care Team Providers Care Marble Worker Name Role Phone Nathalie Hsu MD Primary Care Provider [phone] Shannan Barrow RN Unavailable [phone] Lisbeth Johnson Unavailable Reason for Visit * Reason Onset Date Comments PT-1 05/26/2024 Encounter Details Date Type Department Care Team (Late st Contact Info) Description 05/26/2024 Telephone [facility] [address] [place], [place] [phone] Nathalie Hsu MD [address] [place], [place] [phone] PT-1 Social History Tobacco Use Types Packs/Day Years [...] encounter Miscellaneous Notes * Telephone Encounter - Enzo Caballero - 05/26/2024 3:16 PM EST Patient calling requesting PT1 Home Address verified: Y/N: Yes Provider name or facility name: [address] [address] Escort needed: Y/N: No Do you have a wheelchair: Y/N: No If yes- Manual or electric: N/A Visits: (amount of visits) ( x monthly, weekly, daily) 2 times per month. documented in this encounter Plan of Treatment Upcoming Encounters Date Type Department Care Team (Late st Contact Info) Description 07/14/2024 1:00 PM EDT Office Visit [facility] [address] [place] [address] Renny Holloway MD [address] [place] [address] 08/03/2024 8:00 AM EDT Office Visit [facility] ADULT DENTAL [address] [place] [address] Panchito Lamas DDS [address] [place] [address] 01/08/2025 10:00 AM EDT Office Visit [facility] [address] [place] [address] Chiquita Montgomery [address] [place] [address] documented as of this encounter Visit Diagnoses Not on filedocumented in this encounter Additional Health Concerns Assessment Noted Time PHQ-9 Depression Total Score: 0 06/09/19 9:13 AM EST documented as of this encounter Care Teams Marble Worker Relationship Specialty Start Date End Date Nathalie Hsu MD [address] [place] [phone] PCP - General Family Medicine 09/27/13 Shannan Barrow, KHAI [address] [place] [address] Registered Nurse 02/29/24 Lisbeth Johnson [address] [place] [address] 3rd [place] [address] Gastroenterology 03/15/24 Tonya Poole English DrawerManaged Care Director 01/19/24 Raman ([facility]) Registered Nurse 02/29/24 Marcos Verdin MD [place] [facility] [address] [place] [address] Cardiology 03/10/24 Omid Vincent Psychiatry 03/15/24 documented as of this encounter
--- OUTSIDE RECORDS SUMMARY | 2024-07-07 14:44 | XMS_ITS | Encounter Summary ---
Author Organization [employer] [facility] Address [address] [facility] 7t [place] [address] Care Team Providers Care Mender Knit Goods Name Role Phone Nathalie Hsu MD Primary Care Provider [phone] Shannan Barrow RN Unavailable [phone] Lisbeth Johnson Unavailable Encounter Details Date Type Department Care Team (Late st Contact Info) Description 11/27/2022 Orders Only [facility] [address] [place] [address] Jose Dockery [address] [place] [address] Social History Tobacco Use Types Packs/Day Years [...] Description 07/14/2024 1:00 PM EDT Office Visit [facility] [address] [place] [phone] Renny Holloway MD [address] [place] [phone] 08/03/2024 8:00 AM EDT Office Visit [facility] ADULT DENTAL [address] [place] [address] Panchito Lamas DDS [address] [place] [address] 01/08/2025 10:00 AM EDT Office Visit [facility] ADULT DENTAL [address] [place] [address] Adalberto Montgomeryaris [address] [place] [address] documented as of this encounter Visit Diagnoses Not on filedocumented in this encounter Additional Health Concerns Assessment Noted Time PHQ-9 Depression Total Score: 6 05/08/19 23 10:33 AM EST documented as of this encounter Care Teams Mender Knit Goods Relationship Specialty Start Date End Date Nathalie Hsu MD [address] [place] [address] PCP - General Family Medicine 09/27/13 Shannan Barrow, KHAI [address] [place] [address] Registered Nurse 02/29/24 Lisbeth Johnson [address] [place] [address] 3rd [place] [address] Gastroenterology 03/15/24 Tonya Poole Slinger SequinsBall Winder 01/19/24 Raman (A [facility]) Registered Nurse 02/29/24 Marcos Verdin MD [place] [facility] [address] [place] [address] Cardiology 03/10/24 Omid Vincent Psychiatry 03/15/24 documented as of this encounter
--- OUTSIDE RECORDS SUMMARY | 2024-07-07 14:44 | XMS_ITS | Clinical Summary ---
Author Organization [employer] Address [address] [facility] [address] [place] [address] Care Team Providers Care Operations Research Scientist Name Role Phone Nathalie Hsu MD Primary Care Provider [phone] Shannan Barrow RN Unavailable [phone] Lisbeth Johnson Unavailable Allergies Active Allergy Reactions Criticality Noted Date Comments Zolpidem 06/09/2023 Unintentional overdose on zolpidem on multiple occasions Lorazepam High 09/28/2022 Other reaction(s): OPPOSITE EFFECT PSYCOTIC EFECTS Medications folic acid (Folvite) 1 MG tabletIndicatio ns:History of alcohol abuse TAKE 1 TABLET BY MOUTH EVERY MORNING 90 tablet 3 12/08/19 24 Active thiamine (Vitamin B-1) 100 MG tabletIndicatio ns:History of alcohol abuse TAKE 1 TABLET BY MOUTH EVERY MORNING 90 tablet 3 12/08/19 24 Active albuterol (Ventolin HFA) 108 (90 Base) MCG/ACT inhalerIndicati ons:Mild intermittent asthma, unspecified whether complicated INHALE 2 PUFFS BY MOUTH EVERY 4 TO 6 HOURS NEEDED 18 g 3 12/27/19 24 Active furosemide (Lasix) 20 MG tabletIndicatio ns:Hypertension , unspecified type Take 1 tablet (20 mg) by mouth Once per day. 90 tablet 3 03/10/20 24 Active metoprolol succinate XL (Toprol-XL) 25 MG 24 hr tabletIndicatio ns:Hypertension , unspecified type Take 1 tablet (25 mg) by mouth Once per day. 90 tablet 3 03/10/20 24 Active spironolactone (Aldactone) 25 MG tabletIndicatio ns:Hypertension , unspecified type Take 1 tablet (25 mg) by mouth Once per day. 90 tablet 3 03/10/20 24 Active lidocaine (Lidoderm) 5 % patchIndication s:Pain Remove & discard patch within 12 hours or as directed by MD. 30 patch 5 03/10/20 24 Active pantoprazole (ProtoNix) 40 MG EC tabletIndicatio ns:Gastroesopha geal reflux disease without esophagitis TAKE 1 TABLET BY MOUTH TWICE DAILY IN THE MORNING AND IN THE EVENING 180 tablet 1 03/21/20 24 Active Ferrous Sulfate Dried ER 143 (45 Fe) MG tablet controlled-rele aseIndications: History of GI bleed Take 45 mg by mouth. 02/29/20 24 Active metoprolol succinate XL (Toprol-XL) 25 MG 24 hr tabletIndicatio ns:Paroxysmal atrial fibrillation (CMS/HCC) Take 25 mg by mouth. 02/29/20 24 Active Farxiga 10 MGIndications:C ardiomyopathy, unspecified type (CMS/HCC) Take 10 mg by mouth in the morning. 03/10/20 24 Active busPIRone (Buspar) 10 MG tabletIndicatio ns:Depressive disorder Take by mouth [address] Vincent Active hydrOXYzine pamoate (Vistaril) 50 MG capsuleIndicati ons:Primary insomnia Take by mouth. Dr. Vincent Active melatonin 5 MG tabletIndicatio ns:Primary insomnia TAKE 2 TABLETS BY MOUTH EVERY DAY AT BEDTIME NEEDED FOR SLEEP 60 tablet 3 04/11/19 25 Active chlorhexidine (Peridex) 0.12 % solution Swish 15 mL morning and night for 1 minute. Spit, do not swallow. Do not eat or drink for 30 minutes following use. 473 mL 05/03/19 25 Active acamprosate (Campral) 333 MG EC tabletIndicatio ns:Alcohol use disorder, severe, dependence (CMS/HCC) Take 2 tablets (666 mg) by mouth 2 times daily. Do not crush, chew, or split. PLEASE RESUME THIS MEDICATION PER PATIENT REQUEST 120 tablet 2 06/10/19 25 025 Active acetaminophen (Tylenol) 500 MG tablet Take 1 tablet (500 mg) by mouth every 6 (six) hours if needed for mild pain for up to 20 doses. 20 tablet 06/20/19 25 Active acetaminophen (Tylenol) 500 MG tabletIndicatio ns:Severe dental caries,Dental root caries,Advanced periodontitis,E xcessive attrition of teeth, limited to enamel,Missing teeth, acquired,Dental calculus Take 1 tablet (500 mg) by mouth every 6 (six) hours if needed for mild pain for up to 20 doses. 20 tablet 06/21/19 25 Active ibuprofen 600 MG tablet Take 1 tablet (600 mg) by mouth every 6 (six) hours if needed for mild pain for up to 20 doses. 20 tablet 06/21/19 25 Active gabapentin (Neurontin) 100 MG capsuleIndicati ons:Pain TAKE 1 CAPSULE BY MOUTH THREE TIMES DAILY IN THE MORNING, EVENING, AND BEDTIME 90 capsule 3 06/29/19 25 Active budesonide-form oterol (Symbicort) 160-4.5 MCG/ACT inhalerIndicati ons:Mild intermittent asthma without complication INHALE 2 PUFFS BY MOUTH TWICE DAILY IN THE MORNING AND AT BEDTIME RINSE MOUTH AFTER USING. DO NOT SWALLOW 10.2 g 2 06/29/19 25 Active lactulose (Chronulac) 10 GM/15ML solutionIndicat ions:Alcoholic liver disease (CMS/HCC) TAKE 30 ML BY MOUTH THREE TIMES DAILY 237 mL 3 07/05/19 25 Active ferrous sulfate 325 (65 Fe) MG EC tabletIndicatio ns:Anemia, unspecified type TAKE 1 TABLET BY MOUTH EVERY DAY DO NOT BREAK, CRUSH, DISSOLVE OR CHEW 90 tablet 07/05/19 25 Active warfarin (Coumadin) 5 MG tabletIndicatio ns:History of prosthetic heart valve TAKE 1 TO 2 TABLETS BY MOUTH ONCE DAILY DIRECTED BY COUMADIN CLINIC 60 tablet 2 07/06/19 25 Active warfarin (Coumadin) 5 MG tabletIndicatio ns:History of prosthetic heart valve TAKE 1 TO 2 TABLETS BY MOUTH EVERY DAY DIRECTED BY COUMADIN CLINIC 60 tablet 2 03/06/20 24 025 Discontinued gabapentin (Neurontin) 100 MG capsuleIndicati ons:Pain Take 1 capsule (100 mg) by mouth 3 times daily. 90 capsule 3 03/10/20 24 025 Discontinued ferrous sulfate 325 (65 Fe) MG EC tabletIndicatio ns:Anemia, unspecified type TAKE 1 TABLET BY MOUTH EVERY DAY DO NOT BREAK, CRUSH, DISSOLVE OR CHEW 90 tablet 04/11/19 25 025 Discontinued(R eorder (will not trigger notification to Pharmacy)) budesonide-form oterol (Symbicort) 160-4.5 MCG/ACT inhalerIndicati ons:Mild intermittent asthma without complication INHALE 2 PUFFS BY MOUTH TWICE DAILY IN THE MORNING AND AT BEDTIME RINSE MOUTH AFTER USING. DO NOT SWALLOW 10.2 g 2 04/13/19 25 025 Discontinued(R eorder (will not trigger notification to Pharmacy)) lactulose (Chronulac) 10 GM/15ML solutionIndicat ions:Alcoholic liver disease (CMS/HCC) TAKE 30 ML BY MOUTH THREE TIMES DAILY 237 mL 3 05/30/19 25 025 Discontinued acetaminophen (Tylenol) 500 MG tablet Take 1 tablet (500 mg) by mouth every 6 (six) hours if needed for mild pain for up to 20 doses. 20 tablet 06/05/19 025 Discontinued(R eorder (will not trigger notification to Pharmacy)) amoxicillin (Amoxil) 500 MG capsuleIndicati ons:Severe dental caries,Dental root caries,Advanced periodontitis,E xcessive attrition of teeth, limited to enamel,Missing teeth, acquired,Dental calculus Take 4 tabs (2 grams) 1 hour prior to dental procedure 4 capsule 3 06/09/19 25 025 Discontinued amoxicillin (Amoxil) 500 MG capsule Take 1 capsule (500 mg) by mouth every 8 (eight) hours for 7 days. 21 capsule 06/21/19 25 025 Active Problems Problem Noted Date Diagnosed Date Periodontal disease 06/08/2024 Dental root caries 06/08/2024 Advanced periodontitis 06/08/2024 Excessive attrition of teeth, limited to enamel 06/08/2024 Missing teeth, acquired 06/08/2024 Dental calculus 06/08/2024 Dental abscess 05/03/2024 Severe dental caries 05/03/2024 Acute renal failure 01/19/2024 Overview [...] 12/10/23 and INR was 13, transferred to [facility] Closed fracture of transvers e process [...] diet discussed. Avoid hepatotoxic agents. -Followed by: Rough And Truing Machine Operator, Dr. Johnson: 03/15/24 at [facility]: MELD 22 on most recent labs. INR high due to need for anticoagulation for mechanical valve. -Bilirubin has halved within 2 weeks which is excellent news. -Again strongly reviewed strict abstinence from etOH which hte pt has maintained so far. However, he unfortunately continues to smoke. Strongly counseled re that as well and will be referred to comprehensive care center. 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 proxy on file 02/08/2015, filed into [facility] on 06/09/23 Assessment & Plan (03/10/2024 9:55 PM EST): -next comprehensive annual evaluation due after 03/03/2024 -eye care facilitated by [facility] [place] -dental home is [facility] -health care proxy on file 02/08/2015, filed into [employer] on 06/09/23 Assessment & Plan (01/19/2024 9:20 AM EDT): -next comprehensive annual evaluation due after 03/03/2024 -eye care facilitated by [facility] [place] -dental home is [facility] file 02/08/2015, filed into [employer] on 06/09/23 Assessment & Plan (12/27/2023 11:02 AM EDT): -next comprehensive annual evaluation due after 03/03/2024 -eye care facilitated by [facility] [place] -dental home is [facility] - [facility] care proxy on file 02/08/2015, filed into [employer] on 06/09/23 Assessment & Plan (10/22/2023 11:16 AM EDT): -next physical exam due after 03/03/2024 -eye care facilitated by [facility] [place] -dental home is [facility] - [facility] care proxy on file 02/08/2015, filed into [employer] on 06/09/23 Assessment & Plan (03/03/2023 9:35 AM EST): -next physical exam due after 03/03/2024 -eye care facilitated by -dental home is History of GI bleed 03/03/2023 Overview (04/15/2023): -Hgb on admission 02/09/23 12.9. Baseline 02-15. Hemocult was positive. Pt now back on Plavix and Coumadin per cardiology. -check CBC and iron studies -Advise follow up with GI to complete outpatient scope with Dr. Lisbeth Johnson. We left a message with their office 03/03/23 Assessment & Plan (03/10/2024 9:53 PM EST): -Hgb on admission 02/09/23 12.9. Baseline 02-15. Hemocult was positive. Pt now back on [...] entresto startd by cardiology 05/2022 -F/u with yacht rigger ANA Smith -furosemide 40 mg started during [...] entresto startd by cardiology 05/2022 -F/u with yacht rigger ANA Smith -furosemide 40 mg started during [...] entresto startd by cardiology 05/2022 -F/u with yacht rigger ANA Smith -Furosemide 40 mg started during [...] entresto startd by cardiology 05/2022 -F/u with yacht rigger ANA Smith -Furosemide 40 mg started during [...] entresto startd by cardiology 05/2022 -F/u with yacht rigger ANA Smith Assessment & Plan (06/03/2022 11:12 [...] entresto startd by cardiology 05/2022 -F/u with yacht rigger ANA Smith Assessment & Plan (05/07/2022 10:43 [...] daily, and amlodipine 2.5mg daily -F/u with yacht rigger ANA Smith -He is overdue for follow [...] (12/24/2022): -Hospitalized for subarachnoid hemorrhage 10/2021 at [facility] after fall in the setting of supratheraputic INR of 16 and heavy alcohol use. He was changed to lovenox but could not tolerate the injections. Back on coumadin with improved INRs. He is also on plavix. ER precautions discussed. Assessment & Plan (10/22/2023 11:16 AM EDT): -Hospitalized for subarachnoid hemorrhage 10/2021 at [facility] after fall in the setting of supratheraputic INR of 16 and heavy alcohol use. He was changed to lovenox but could not tolerate the injections. Back on coumadin with improved INRs. He is also on plavix. ER precautions discussed. Assessment & Plan (06/09/2023 9:36 AM EST): -Hospitalized for subarachnoid hemorrhage 10/2021 at [facility] after fall in the setting of supratheraputic INR of 16 and heavy alcohol use. He was changed to lovenox but could not tolerate the injections. Back on coumadin with improved INRs. He is also on plavix. ER precautions discussed. Assessment & Plan (08/11/2022 7:29 AM EDT): -Hospitalized for subarachnoid hemorrhage 10/2021 at [facility] after fall in the setting of supratheraputic INR of 16 and heavy alcohol use. He was changed to lovenox but could not tolerate the injections. Back on coumadin with improved INRs. He is also on plavix. ER precautions discussed. Assessment & Plan (06/03/2022 11:07 AM EST): -Hospitalized for subarachnoid hemorrhage 10/2021 at [facility] after fall in the setting of supratheraputic INR of 16 and heavy alcohol use. Now on Lovenox and clopidogrel. Assessment & Plan (05/07/2022 10:53 AM EST): Hospitalized for subarachnoid hemorrhage 10/2021 at [facility] after fall in the setting of [...] daily drinking and rum - established with [facility] because insurance no longer accepted by [facility]. -Patient followed at [facility] with Dr. Cristine Deleon DO, seen [...] daily drinking and rum - established with [facility] because insurance no longer accepted by [facility]. -Patient followed at [facility] with Dr. Cristine Deleon DO, seen [...] daily drinking and rum - established with [facility] because insurance no longer accepted by [facility]. -Patient followed at [facility] with Dr. Cristine Deleon DO, seen [...] he drinks 3-4 coors light on a Zachariah about every two weeks and has stopped daily drinking and rum - established with [facility] because insurance no longer accepted by [facility]. -Patient followed at [facility] with Dr. Cristine Deleon DO, seen [...] daily drinking and rum - established with [facility] because insurance no longer accepted by [facility]. -Patient followed at [facility] with Dr. Cristine Deleon DO, [...] daily drinking and rum - established with [facility] because insurance no longer accepted by [facility]. Assessment & Plan (11/30/2022 8:51 PM EDT): hx of aortic stenosis s/p Aortic valve repair, hx of AF , cardiomyopathy with EF 25-30%, ,hx AAA repair, complete heart block s/p pacemaker,CAD s/P stent INR goal 2.5 to 3.5 -continue to f up with his yacht rigger-next apt w Dr Deleon is on 12/08/2022 - I called cards' office # [phone] and confirmed day and hour and gave [...] daily drinking and rum - Established with [facility] because insurance no longer accepted by [facility]. Assessment & Plan (06/03/2022 11:09 AM [...] ETOH with intracranial bleed. - established with [facility] because insurance no longer accepted by [facility]. Last seen 05/2022 recommending 4 week follow up Assessment & Plan (05/07/2022 10:46 AM EST): Hx [address] 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 No hx CABG. Pacemaker placed for AV radha block. -On Coumadin, managed by [facility]. - established with [facility] because insurance no longer accepted by [facility]. Presence of cardiac pacemaker 03/07/2014 Overview [...] as pharmacomtherapy, [facility] smoking cessation group, and [facility] pharmacy smoking cessation clinic -currently smoke cigarettes [...] as pharmacomtherapy, [facility] smoking cessation group, and [facility] pharmacy smoking cessation clinic -currently smoke cigarettes [...] as pharmacomtherapy, [facility] smoking cessation group, and [facility] pharmacy smoking cessation clinic -currently smoke cigarettes [...] as pharmacomtherapy, [facility] smoking [facility], and [facility] pharmacy smoking cessation clinic -currently smoke cigarettes [...] Assessment & Plan (10/22/2023 11:15 AM EDT): Letty AMELIA. -Continue with therapist and psychiatrist. Assessment & Plan (06/09/2023 9:35 AM EST): Letty AMELIA. -Continue with therapist and psychiatrist. Assessment & Plan (03/03/2023 9:40 AM EST): Letty AMELIA. -Continue with therapist and psychiatrist. [...] tabs BID 06/09/23 Alcohol Use Disorder [facility] Support and [facility] televist tolerating the medication. Admits to 3 [...] 2 tabs BID 06/09/23 Alcohol Use Disorder [facility] Support and [facility] televist tolerating the medication. Admits to 3 [...] kidney injury) 06/07/2023 Alcohol withdrawal 04/15/2023 04/15/2023 Alcohol abuse 12/24/2022 10/22/2023 Acute hyponatremia 12/24/2022 [...] Encounters Date Type Department Care Team Description 07/05/2024 Telephone [facility] [address] [place] [address] Nathalie Hsu MD Referral 07/05/2024 Refill [facility] [address] [place] [phone] Hermelinda Hernandez ANP History of prosthetic heart valve 07/04/2024 Anticoagulation - Warfarin Visit [facility] [address] [place] [phone] Nathalie Hsu MD History of prosthetic heart valve 07/04/2024 Telephone [facility] [address] [place] [address] [phone] Nathalie Hsu MD critical lab 07/04/2024 Refill [facility] [address] [place] [address] Panchito Lamas DDS Severe dental caries; Dental root caries; Advanced periodontitis; Excessive attrition of teeth, limited to enamel; Missing teeth, acquired; Dental calculus 07/04/2024 Refill [facility] [address] [place] [address] [phone] Nathalie Hsu MD Anemia, unspecified type 07/03/2024 Refill [facility] [address] [place] [address] [phone] Nathalie Hsu MD Alcoholic liver disease (CMS/HCC); Anemia, unspecified type 06/28/2024 Refill [facility] [address] [place] [address] [phone] Nathalie Hsu MD Mild intermittent asthma without complication 06/27/2024 Telephone [facility] [address] [place] [address] [phone] Nathalie Hsu MD INR results 06/27/2024 Refill [facility] [address] [place] [phone] Nathalie Hsu MD Pain; Mild intermittent asthma without complication 06/20/2024 Telephone [facility] [address] [place] [address] [phone] Nathalie Hsu MD critical lab 06/20/2024 Telephone [facility] [address] [place] [phone] Bolano medication 06/19/2024 Refill [facility] [address] [place] [address] Nathalie Hsu MD 06/16/2024 Population Health Risk Score [facility] ([facility] [address] [id number] Provider, Population Health Generic 06/13/2024 Telephone [facility] [address] [place] [address] [phone] Nathalie Hsu MD INR/Coumadin Dosing 06/09/2024 1:15 PM EST Telemedicine [facility] [address] [place] [address] [phone] Renny Holloway MD Alcohol use disorder, severe, dependence (CMS/HCC) (Primary Dx) 06/09/2024 Travel 06/08/2024 9:30 AM EST Office Visit [facility] [address] [place] [phone] Panchito Lamas DDS Severe dental caries (Primary Dx); Dental root caries; Advanced periodontitis; Excessive attrition of teeth, limited to enamel; Missing teeth, acquired; Dental calculus 06/06/2024 Telephone [facility] [address] [place] [phone] Nathalie Hsu MD Results 06/02/2024 Refill [facility] [address] [place] [address] Nathalie Hsu MD 05/30/2024 Telephone [facility] [address] [place] [address] [phone] Nathalie Hsu MD CRITICAL RESULT CALL/INR 05/29/2024 Refill [facility] [address] [place] [phone] Nathalie Hsu MD Alcoholic liver disease (CMS/HCC) 05/26/2024 Patient Outreach [facility] [address] [place] [address] [phone] Nathalie Hsu MD Care Coordination ([facility] outreach for SDOH PT-1 and food needs-referral completed /) 05/26/2024 Telephone [facility] [address] [place] [address] [phone] Nathalie Hsu MD PT-1 05/23/2024 Telephone [facility] [address] [place] [address] [phone] Nathalie Hsu MD CRITICAL RESULT CALL 05/16/2024 Telephone [facility] [address] [place] [phone] Nathalie Hsu MD CRITICAL RESULT CALL 05/09/[address] [address] Nathalie Hsu MD Anticoagulation 05/03/2024 1:00 PM EST Office Visit [facility] [address] [place] [phone] Panchito Lamas DDS Dental abscess (Primary Dx); Dental caries 05/03/[address] [address] Shannan Barrow, KHAI Paperwork/Forms 05/03/[address] [address] Nathalie Hsu MD Alcoholic liver disease ([facility]/HCC) 05/02/2024 Telephone [facility] [address] [place] [address] [phone] Nathalie Hsu MD Anticoagulation 04/25/2024 Telephone [facility] [address] [place] [address] [phone] Nathalie Hsu MD Anticoagulation 04/18/[address] [address] Nathalie Hsu MD Anticoagulation 04/14/2024 Orders Only GENERIC EXTERNAL DATA DEPARTMENT Provider, Generic External Data Alcoholic liver disease ([facility]/HCC) (Primary Dx) 04/12/2024 Refill [facility] [address] [place] [address] [phone] Nathalie Hsu MD Mild intermittent asthma without complication 04/11/2024 Telephone [facility] [address] [place] [address] [phone] Nathalie Hsu MD Anticoagulation 04/11/2024 Refill [facility] [address] [place] [phone] Nathalie Hsu MD Anemia, unspecified type 04/09/2024 Refill [facility] [address] [place], [place] [phone] Nathalie Hsu MD Primary insomnia from Last 3 Months Immunizations Name Administration [...] Not Answered Alcohol Use Standard Drinks/Week Comments Not Currently [...] Sign Reading Time Taken Comments Blood Pressure 108/70 06/08/2024 9:49 AM EST Pulse 80 03/10/2024 10:18 AM [...] Description 07/14/2024 1:00 PM EDT Office Visit [facility] [address] [place] [address] Renny Holloway MD [address] [place] [address] 08/03/2024 8:00 AM EDT Office Visit [facility] [address] [place] [address] Panchito Lamas, DDS [address] [place] [address] 01/08/2025 10:00 AM EDT Office Visit [facility] [address] [place] [address] Chiquita Montgomery [address] [facility], [place] [id number] Health Maintenance Due Date Last Done Comments CT Colonography 1961 Dental Prophylaxis 1961 FIT 1961 FOBT 1961 Sigmoidoscopy 1961 RSV Patients and Patients Aged 60 years or older (1 - Risk 60-74 years 1-dose series) 2021 Colonoscopy 03/05/2022 03/05/2012 Zoster Vaccines (2 of 2) 01/19/2023 11/24/2022 SDOH Screening 06/01/2024 06/01/2023 Depression Screening 06/08/2024 06/09/2023, 06/09/19 24 Influenza Vaccine (#1) 2024 9, 06/23/2018, 12/21/2011, Additional history exists Postponed from 12/05/2023 (Patient Refused) Dental Oral Exam 12/10/2024 06/08/2024 COVID-19 Vaccine ( season) 2024 05/01/2022, 11/13/2021, 11/13/2021, Additional history exists Postponed from 12/05/2023 (Patient Refused) Alcohol/Substance Use Screening 01/18/2025 01/19/2024 Tobacco Screening 06/08/2025 06/08/2024 Dental X-Ray: Bitewings 06/09/2025 06/08/2024 Colorectal Cancer Screening 12/29/2026 FIT DNA/Cologuard 12/29/2026 12/30/2023 Dental X-Ray: Full Mouth 06/10/2027 06/08/2024, 04/06 Lipid Panel 08/11/2027 08/10/2022, 08/22/2020 DTaP/Tdap/Td Vaccines (4 - Td or Tdap) 04/01/2033 04/01/2023, 10/24/2014, 11/18/2010, Additional history exists HIV Screening Completed 08/10/2022 Hepatitis C Screening Completed 08/10/2022 Pneumococcal Vaccine: 50+ Years Completed 11/30/2022, 12/26/2008 Hepatitis A Vaccines Completed 12/27/2023, 06/09/19 Hepatitis B Vaccines Completed 12/27/2023, 10/22/2023, 06/09/2023 [...] Date/Time Associated Diagnosis Comments PROTHROMBIN TIME-INR Routine 07/04/2024 PROTHROMBIN TIME-INR Routine 06/27/2024 PROTHROMBIN TIME-INR Routine 06/20/2024 PROTHROMBIN TIME-INR Routine 06/13/2024 11:43 AM EDT CASE PRESENTATION, DETAILED AND EXTENSIVE TREATMENT PLANNING Routine 06/08/2024 9:30 AM EST INTRAORAL - COMPLETE SERIES OF RADIOGRAPHIC IMAGES Routine 06/08/2024 9:30 AM EST PERIODIC ORAL EVALUATION - ESTABLISHED PATIENT Routine 06/08/2024 9:30 AM EST 31 O COMPOSITE FILLING Routine 12:00 AM EST 27 I COMPOSITE FILLING Routine 12:00 AM EST 13 O COMPOSITE FILLING Routine 12:00 AM EST 12 B(V) COMPOSITE FILLING Routine 2024 12:00 AM EST 10 FI COMPOSITE FILLING Routine 06/09/19 12:00 AM EST 9 MIDL COMPOSITE FILLING Routine 025 12:00 AM EST 8 MIDL COMPOSITE FILLING Routine 025 12:00 AM EST 7 DIFL COMPOSITE FILLING Routine 12:00 AM EST 6 DIL COMPOSITE FILLING Routine 06/09/19 12:00 AM EST 4 DB COMPOSITE FILLING Routine 12:00 AM EST 28 O AMALGAM FILLING Routine 06/08/2024 12:00 AM EST 18 O AMALGAM FILLING Routine 06/08/2024 12:00 AM EST 5 MO AMALGAM FILLING Routine 06/08/2024 12:00 AM EST 2 O AMALGAM FILLING Routine 06/08/2024 1 2:00 AM EST PROTHROMBIN TIME-INR Routine 06/06/2024 PROTHROMBIN TIME-INR Routine 05/30/2024 PROTHROMBIN TIME-INR Routine 05/23/2024 PROTHROMBIN TIME-INR Routine 05/16/2024 PROTHROMBIN TIME-INR Routine 05/09/2024 LIMITED ORAL EVALUATION - PROBLEM FOCUSED Routine 05/03/2024 1:00 PM EST PANORAMIC RADIOGRAPHIC IMAGE Routine 05/03/2024 1:00 PM EST CASE PRESENTATION, DETAILED AND EXTENSIVE TREATMENT PLANNING Routine 05/03/2024 [...] :04 PM EST PROTHROMBIN TIME-INR Routine 04/11/2024 LAB COLOGUARD?? COLON CANCER SCREEN Routine 12/30/2023 [...] to Health Maintenance Results * Prothrombin Time-INR (07/04/2024) Only the most recent of14 resultswithin the time period is included. INR 3.00 0.90 - 1.10 [facility] Protime [facility] Blood Venous blood specimen / Unknown 07/04/2024 us Historical Provider LAB BLOOD ORDERABLES Kassidy l Result [facility] [address] [place] [phone] * Drug Monitoring, Phosphatidylethanol (PEth), Blood (04/14/2024 1:41 PM EST) Phosphatidylethanol, Blood NEGATIVE [facility] Comment:REFERENCE RANGE: <20 ng/mLTHIS TEST PERFORMED AT:[facility] [employer] [facility] [address] [phone] DIRECTOR: SERAFIN YUSUF MD, PHD [facility] 16:0/18:2 (PLPEth) NEGATIVE [facility] Comment:REFERENCE RANGE: <20 ng/mLTHIS TEST PERFORMED AT:[facility] [employer] [facility] [address] [phone] DIRECTOR: SERAFIN YUSUF MD, PHD [facility] Comments SEE NOTE [facility] Comment:This drug testing is for medical treatment only.Analysis was performed as non-forensic testing andthese results should be used only by healthcareproviders to render diagnosis or treatment, or tomonitor progress of medical conditions.LDT Notes:Confirmation tests were developed and their analyticalperformance characteristics have been determined by[facility]. It has not been cleared or approvedby the FDA. This assay has been validated pursuant tothe CLIA regulations and is used for clinical purposes.Healthcare Providers needing Interpretation assistance,please contact us at [phone] ( )M-F, 8am to 10pm ESTTHIS TEST PERFORMED AT:[facility] [place] [phone] DIRECTOR: KEENAN DOWNS MD 04/14/2024 1:41 PM EST 04/14/2024 1:41 PM EST us Generic External Data Provider LAB BLOOD ORDERAB LES Final Result [facility] [address] [place] [phone] * Alpha-Fetoprotein, Tumor Marker (04/14/2024 1:41 PM EST) Pathologist [facility] Alpha Fetoprotein 4.7 <6.1 ng/mL [facility] Comment:This test was perfor med using the Lavon Coulterchemiluminescent method. Values obtained fromdifferent assay methods cannot be usedinterchangeably. AFP levels, regardless ofvalue, should not be interpreted as absoluteevidence of the presence or absence of disease.THIS TEST WAS PERFORMED AT:[facility] [place] [phone] DOWNS MD 04/14/2024 1:41 PM EST 04/14/2024 1:41 PM EST us Generic External Data Provider LAB BLOOD ORDERAB LES Final Result [facility] [address] [place] [phone] * (ABNORMAL) CBC (04/14/2024 1:41 PM EST) Pathologist [facility] White Blood Count 9.7 4.8 - 10.8 X10*3/uL [facility] Red Blood Count 4.32(L) 4.60 - 5.80 X10*6/uL [facility] Hemoglobin 13.6(L) 14.0 - 18.0 g/dl [facility] Hematocrit 40.6(L) 42.0 - 52.0 % [facility] Mean Corpuscular Volume 94.0 80.0 - 98.0 fL [facility] Mean Corpuscular Hemoglobin 31.5 27.0 - 33.0 pg [facility] Mean Corpuscular HGB Conc 33.5 31.0 - 36.0 g/dl [facility] Red Cell Distribution Width 17.2(H) 11.0 - 16.0 % [facility] Platelet Count 271 160 - 400 X10*3/uL [facility] Mean Platelet Volume 8.7(L) 9.4 - 12.4 fL [facility] NRBC Pct Auto 0.0 0.0 - 0.2 /100WBC [facility] NRBC Abs Auto 0.000 0.0 - 0.012 X10*3/uL [facility] 04/14/2024 1:41 PM EST 04/14/2024 1:41 PM EST us Generic External Data Provider LAB BLOOD ORDERAB LES Final Result [facility] [address] [place], [place] [phone] * (ABNORMAL) Comprehensive Metabolic Panel (04/14/2024 1:41 PM EST) Sodium 138 135 - 145 mmol/L [facility] Potassium 4.1 3.3 - 5.1 mmol/L [facility] Chloride 112(H) 96 - 108 mmol/L [facility] Carbon Dioxide 20(L) 22 - 29 mmol/L [facility] Anion Gap 10(L) 12 - 20 [facility] Urea Nitrogen (BUN) 20(H) 9 - 16 mg/dL [facility] Creatinine, Serum 1.16 0.5 - 1.4 mg/dL [facility] Estimated Glomerular Filt Rate >60 [facility] Comment:Chronic Kidney Disea se: Estimated GFR < 60 mL/min/1.25f9Yrnvxr Kidney Disease: Estimated GFR < 15 mL/min/1.73m2 Glucose 89 60 - 115 mg/dL [facility] Calcium 9.1 8.4 - 10.2 mg/dL [facility] Bilirubin, Total 1.6(H) 0.0 - 1.0 mg/dL [facility] Aspartate Amino Transferase 35 5 - 37 U/L [facility] Alanine Aminotransferase 28 0 - 40 U/L [facility] Total Protein 8.7(H) 6.5 - 8.0 g/dL [facility] Albumin Level 3.8 3.5 - 5.0 g/dL [facility] Alkaline Phosphatase 146(H) 39 - 117 U/L [facility] 04/14/2024 1:41 PM EST 04/14/2024 1:41 PM EST us Generic External Data Provider LAB BLOOD ORDERAB LES Final Result [facility] [address] [place] [phone] * US Abdomen Complete (04/14/2024 1:04 PM EST) Anatomical Region Laterality Modality Abdomen Ultrasound 04/14/2024 1:04 PM EST Narrative 04/17/2024 3:52 PM EST ? [facility] ?[address] ?[place] [address] ? Ultrasound Report ? Signed ? Patient: Federico,Omid ?MR#: [id number] ?? 14 ? : 1960 ?Acct:[id number] ? Age/Sex: 64 / M ?ADM Date: 04/14/24 ? Loc: HO.US ? Attending Dr: Lisbeth Johnson MD ? Ordering Physician: Lisbeth Johnson MD ?? Date of Service: 04/14/24 ?? Procedure(s): US abdomen complete ?? Accession Number(s): [id number] ? cc: Nathalie Hsu MD; Lisbeth Johnson [...] DD/ 1304 ? TD/TT: 04/14/24 1319 ? Dental Tech: ? Procedure Note Lenore, Image - 04/17/[address] [address] Ultrasound Report Signed Patient: Mandi Caballero#: [id number] 14 : 1Acct:[id number] Age/Sex: 64 / MADM Date: 04/14/24 Loc: HO.US Attending Dr: Lisbeth Johnson MD Ordering Physician: Lisbeth Johnson MD Date of Service: 04/14/24 Procedure(s): US abdomen complete Accession Number(s): [id number] cc: Nathalie Hsu MD; Lisbeth Johnson MD [...] by: Keron Herrera MD 04/17/2024 03:49 PM [facility] Dictated By: Keron Herrera MD Signed By: <Electronically signed by Keron Herrera MD in OV> 04/17/24 1549 DD/ 1304 TD/TT: 04/14/24 1319 Dental Tech: [facility] External Provider IMG US PROCEDURES Final Result * Cologuard?? colon cancer screening (12/30/2023 1:30 AM EDT) Cologuard Result Negative Negative 01/05/20 1:07 AM EDT [facility] (CLIA #:[id number]) Comment: NEGATIVE TEST RESULT. A negative Cologuard [...] Haq et al, N Engl J Med 2014;370(14):1286- 1297) The normal value (reference range) for this assay is negative. COLOGUARD RE-SCREENING RECOMMENDATION: Periodic colorectal cancer screening is an important part of preventive healthcare for asymptomatic individuals at average risk for colorectal cancer. ??Following a negative Cologuard result, the [place] Cancer Society and U.S. Multi-Society Task Force screening guidelines recommend a Cologuard re-screening interval of 3 years. References: [place] [employer] Guideline for Colorectal Cancer Screening: https://www.cancer.org/cancer/gmjlh-nibazl-mldvhq/cfubtftqm-eyklgdyou-lyvyjmw/ac s-rec ommendations.html.; Honorio PINA, Lita NEGRETE, Luba JamesK, Colorectal Cancer Screening: Recommendations for Physicians and Patients from the U.S. Multi-Society Task Force on Colorectal Cancer Screening , Am J Gastroenterology 2017; 112:6135-4314. TEST DESCRIPTION: Composite algorithmic analysis of stool [...] screened with both Cologuard and colonoscopy. (Tien Plascencia. et al, N Engl J Med 2014;370(14):9827-1986.) Cologuard may produce a false negative or false positive result (no colorectal cancer or precancerous polyp present at colonoscopy follow up). A negative Cologuard test result does not guarantee the absence of CRC or advanced adenoma (pre-cancer). The current Cologuard screening interval is every 3 years. ([place] Cancer Society and U.S. Multi-Society Task Force). Cologuard performance data in a 10,000 patient pivotal study using colonoscopy as the reference method can be accessed at the following location: www.Jobmetoo/results. Additional description of the Cologuard test process, warnings and precautions can be found at www.[employer] Insiderrd.com. Stool specimen (specimen) Rectal contents / Unknown 12/30/2023 1:30 AM EDT 01/01/2024 3:30 PM EDT us Nathalie Hsu MD LAB MOLECULAR DIAGNOSTICS ORDERABLES Final Result [facility] (CLIA #:[id number]) [place] [place] [place] [address], * Hepatitis C Antibody with Reflex to HCV, RNA, Quantitative, Real-Time PCR (08/10/2022 11:24 AM EDT) Hepatitis C Antibody NON-REACT KG NON-REACT KG [facility] [place] [facility] Index 0.13 <1.00 [facility] Comment: HCV antibody was non-reactive. There is no laboratory evidence of HCV infection. In most cases, no further action is required. However, if recent HCV exposure is suspected, a test for HCV RNA (test code 21988) is suggested. For additional information please refer to http://1stGig.com.Value Investment Group/faq/CIT81f8 (This link is being provided for informational/ educational purposes only.) Blood Venous blood specimen / Unknown 08/10/2022 11:24 AM EDT 08/10/2022 11:25 AM EDT Narrative [facility] - 08/16/2022 12:40 AM EDT FASTING:NO FASTING: NO us Nathalie Hsu MD LAB BLOOD ORDERABLES Final Result [facility] [address], [place] [address] [facility] [place] [facility] [address] [place] [phone] * HIV-1/2 Antigen and Antibodies, Fourth Generation, with Reflexes (08/10/2022 11:24 AM EDT) Pathologist [facility] HIV Antigen/Antibody, 4th Generation NON-REAC TIVE NON-REAC TIVE [facility] [place] [facility] Comment: HIV-1 antigen and HIV-1/HIV-2 antibodies were [...] ?? For additional information please refer to http://1stGig.com.[employer]/faq/QAR437 (This link is being provided for informational/ educational purposes only.) The performance of this assay has not been clinically validated in patients less than 2 years old. Blood Venous blood specimen / Unknown 08/10/2022 11:24 AM EDT 08/10/2022 11:25 AM EDT Narrative [facility] - 08/16/2022 12:40 AM EDT FASTING:NO FASTING: NO Nathalie Hsu MD LAB BLOOD ORDERABLES Final Result [facility] [address], [place] [address] [facility] [place] [facility] [address] [place] [address] * Lipid Panel, Standard (08/10/2022 11:24 AM EDT) [facility] Signature Cholesterol, Total 161 <200 mg/dL [facility] [place] [facility] HDL Cholesterol 62 > OR = 40 mg/dL [facility] [place] [facility] Triglycerides 109 <150 mg/dL [facility] [place] [facility] LDL Cholesterol 80 mg/dL (calc) [facility] Comment: Reference range: <100 Desirable range <100 mg/dL for primary prevention; ?? <70 mg/dL for patients with CHD or diabetic patients with > or = 2 CHD risk factors. LDL-C is now calculated using the Anthony-Pascual calculation, which is a validated novel method providing better accuracy than the Friedewald equation in the estimation of LDL-C. Anthony LITTLE et al. FLAKITA. 2013;310(19): 1511-3218 (http://education.LumaStream/faq/VAI292) Chol/HDLC Ratio 2.6 <5.0 (calc) [facility] Non-HDL Cholesterol 99 <130 mg/dL (calc) [facility] Comment: For patients with diabetes plus 1 major ASCVD risk factor, treating to a non-HDL-C goal of <100 mg/dL (LDL-C of <70 mg/dL) is considered a therapeutic option. Blood Venous blood specimen / Unknown 08/10/2022 11:24 AM EDT 08/10/2022 11:25 AM EDT Narrative [facility] - 08/16/2022 12:40 AM EDT FASTING:NO FASTING: NO Nathalie Hsu MD LAB BLOOD ORDERABLES Final Result [facility] [address], [place] [address] [facility] [address] [place] [address] * Hm Colonoscopy (03/05/2012) Colonoscopy Dr. 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 [address] [place] [address] Cardiology 03/10/24 Omid Carlton Psychiatry 03/15/24
--- OUTSIDE RECORDS SUMMARY | 2024-07-07 14:44 | XMS_ITS | Encounter Summary ---
Author Organization [facility] Address [address] [place] [address] Care Team Providers Care Industrial Controller Name Role Phone Nathalie Hsu MD Primary Care Provider [phone] Shannan Barrow RN Unavailable [phone] Lisbeth Johnson Unavailable Reason for Visit * Reason Comments Med Refill Encounter Details Date Type Department Care Team (Late st Contact Info) Description 07/04/2024 Refill [facility] [address] [place], [place] [phone] Nathalie Hsu MD [address] [place], [place] [phone] Anemia, unspecified type Social History Tobacco Use [...] Description 07/14/2024 1:00 PM EDT Office Visit [facility] [address] [place] [phone] Renny Holloway MD [address] [place] [address] 08/03/2024 8:00 AM EDT Office Visit [facility] [address] [place] [address] Panchito Lamas DDS [address] [place] [address] 01/08/2025 10:00 AM EDT Office Visit [facility] [address] [place] [address] Chiquita Montgomery [address] [place] [address] documented as of this encounter Visit Diagnoses Diagnosis Anemia, unspecified type documented in this encounter Additional Health Concerns Assessment Noted Time PHQ-9 Depression Total Score: 0 06/09/19 24 9:13 AM EST documented as of this encounter Care Teams Industrial Controller Relationship Specialty Start Date End Date Nathalie Hsu MD [address] [place] [address] PCP - General Family Medicine 09/27/13 Shannan Barrow, RN [address] [place] [address] Registered Nurse 02/29/24 Lisbeth Johnson [address] [place] [address] 3rd [place] [address] Gastroenterology 03/15/24 Tonya Poole WinterizerCare Manager 01/19/24 Raman ([facility]) Registered Nurse 02/29/24 MD Enoc Louise [facility] [address] [place] [address] Cardiology 03/10/24 Omid Vincent Psychiatry 03/15/24 documented as of this encounter
--- OUTSIDE RECORDS SUMMARY | 2024-07-07 14:44 | XMS_ITS | Encounter Summary ---
Author Organization [employer] [facility] Address [address] [place] [address] Care Team Providers Care Jira Developer Name Role Phone Nathalie Hsu MD Primary Care Provider [phone] Shannan Barrow RN Unavailable [phone] Lisbeth Johnson Unavailable Encounter Details Date Type Department Care Team (Latest Contact Info) Description 07/04/2024 Anticoagulation - Warfarin Visit [facility] [address] [place], [place] [phone] Nathalie Hsu MD [address] [place], [place] [phone] History of prosthetic heart valve Social History Tobacco Use Types Packs/Day Years [...] as of this encounter Progress Notes * Greta Burt RN - 07/04/2024 3:08 PM EDT S: Pt is due for PT/INR today due to hx of DVT's. Pt's target INR is 2.5-3.5. This RN spoke with KAVIN Duff who denies any new medications or changes in diet. Pt has been compliant with INR draws. O: INR today is: 3.0. Pt current dose is 2.5mg Tu,Fr, Sa/5mg the rest of the week A: Hx of DVT Risk for blood clot due to sub therapeutic INR Hx of afib Hx of prosthetic heart valve P: Spoke with covering provider Dr Grayson in office. Per Dr Grayson, pt is to continue same dose schedule as above and recheck INR 07/11/24. Called KAVIN Duff at [phone] to back to advise ofplan. No answer at 3:15p, 3:30pm, left voicemails to call back [facility]. Will task to call again. Greta Burt RN * Greta Burt RN - 07/04/2024 3:08 PM EDT Telephone call to KAVIN Duff nurse. Sherin stated that she left for [place] yesterday at 2:30p and turned off her phone. Explained that [facility] nurses called her several times yesterday and left generic voicemails to call back [facility] however her voicemail states the name Brianda and there is nothing tosuggest it is a confidential [facility] voicemail. Sherin stated pt's previous [facility]NA nurse, Raman, will workwith pt while she is away and she stated she will call Raman today to explain the dosing to him. Horse Exerciser explained dosing is the same as last week: 2.5mg Tu,Fr, Sa/5mg the rest of the week. Sherin verbalized understanding, said yesterday pt continued at correct dosing. Again she stated that she willcall KAVIN Camargo. No further questions. documented in this encounter Plan of Treatment Upcoming Encounters Date Type Department Care Team (Late st Contact Info) Description 07/14/2024 1:00 PM EDT Office Visit [facility] [address] [place] [address] Renny Holloway MD [address] [place] [address] 08/03/2024 8:00 AM EDT Office Visit [facility] [address] [place] [address] Panchito Lamas DDS [address] [place] [address] 01/08/2025 10:00 AM EDT Office Visit [facility] [address] [place] [address] Chiquita Montgomery [address] [place] [address] documented as of this encounter Procedures Procedure Name Priority Date/Time Associated Diagnosis Comments PROTHROMBIN TIME-INR Routine 07/04/2024 documented in this encounter Results * Prothrombin Time-INR (07/04/2024) INR 3.00 0.90 - 1.10 [facility] Protime [facility] Blood Venous blood specimen / Unknown 07/04/2024 us Historical Provider LAB BLOOD ORDERABLES Kassidy izquierdo Result [facility] [address] [place] [address] [phone] documented in this encounter Visit Diagnoses Diagnosis History of prosthetic heart valve documented in this encounter Additional Health Concerns Assessment Noted Time PHQ-9 Depression Total Score: 0 06/09/19 24 9:13 AM EST documented as of this encounter Care Teams Jira Developer Relationship Specialty Start Date End Date Nathalie Hsu MD [address] [place] [address] PCP - General Family Medicine 09/27/13 Shannan Barrow, KHAI [address] [place] [address] Registered Nurse 02/29/[address]rd [place] [address] Gastroenterology 03/15/24 Tonya Poole Senior Java Software DeveloperInjector Assembler 01/19/24 Raman ([facility]) Registered Nurse 02/29/24 Marcos Verdin MD [place] [facility] [address] [place] [address] Cardiology 03/10/24 Omid Vincent Psychiatry 03/15/24 documented as of this encounter
--- OUTSIDE RECORDS SUMMARY | 2024-07-07 14:44 | XMS_ITS | Encounter Summary ---
Author Organization [employer] Address [address] 7t [place] [address] Care Team Providers Care Plate Former Name Role Phone Nathalie Hsu MD Primary Care Provider [phone]- [phone] Shannan Barrow RN Unavailable [phone] Lisbeth Johnson Unavailable Reason for Visit * Reason Onset Date Comments Med Refill 07/01/2023 Encounter Details Date Type Department Care Team (Late st Contact Info) Description 07/01/2023 Telephone [facility] MEDICINE [address] [place], [place] [phone] Nathalie Hsu MD 230 [place], [place] [phone] Med Refill Social History Tobacco Use Types [...] the past 12 months, has t he [employer], gas, oil or water [employer]omo threatened to shut off services in your [...] 9:11 AM EDT Medication was sent to [facility] on 03/03/23 90 day supply with 1 refill. * Telephone Encounter - Amie Ramsey - 07/01/2023 9:06 AM EDT TC from pt requesting medication refill. Medications needing refill : pantoprazole (ProtoNix) 40 MG EC tablet To be sent to: [facility] - [place], [place] - [address] [place] [address] [facility] [phone] documented in this encounter Plan of Treatment Upcoming Encounters Date Type Department Care Team (Late st Contact Info) Description 07/14/2024 1:00 PM EDT Office Visit [facility] MEDICINE [address] [place] [address] Renny Holloway MD 230 [place] [address] 08/03/2024 8:00 AM EDT Office Visit [facility] ADULT DENTAL [address] [place] [address] Panchito Lamas DDS [address] [place] [address] 01/08/2025 10:00 AM EDT Office Visit [facility] ADULT DENTAL [address] [place] [address] Chiquita Montgomery [address] [place] [address] documented as of this encounter Visit Diagnoses Not on filedocumented in this encounter Additional Health Concerns Assessment Noted Time PHQ-9 Depression Total Score: 0 06/09/19 24 9:13 AM EST documented as of this encounter Care Teams Plate Former Relationship Specialty Start Date End Date Nathalie Hsu MD 230 [place] [address] PCP - General Family Medicine 09/27/13 Shannan Barrow, KHAI [address] [place] [address] Registered Nurse 02/29/24 Lisbeth Johnson [address] [place] [address] 3rd [place] [address] Gastroenterology 03/15/24 Tonya Poole Retail CoordinatorMill Crane Operator 01/19/24 Raman (VNA [facility]) Registered Nurse 02/29/24 Marcos Verdin MD [place] [facility] [address] [place] [address] Cardiology 03/10/24 Omid Vincent Psychiatry 03/15/24 documented as of this encounter
--- OUTSIDE RECORDS SUMMARY | 2024-07-07 14:44 | XMS_ITS | Encounter Summary ---
Author Organization [employer] Address [address] 7t [place] [address] Care Team Providers Care Credit Portfolio Advisor Name Role Phone Nathalie Hsu MD Primary Care Provider [phone]- [phone] Shannan Barrow RN Unavailable [phone] Lisbeth Johnson Unavailable Reason for Visit * Reason Comments Med Refill Encounter Details Date Type Department Care Team (Late st Contact Info) Description 03/30/2024 Refill [facility] MEDICINE [address] [place], [place] [phone] Nathalie Hsu MD 230 [place], [place] [phone] History of alcohol abuse; Hypomagnesemia; Mild intermittent [...] Description 07/14/2024 1:00 PM EDT Office Visit [facility] MEDICINE [address] [place] [address] Renny Holloway MD [address] [place] [address] 08/03/2024 8:00 AM EDT Office Visit [facility] ADULT DENTAL [address] [place] [address] Panchito Lamas DDS [address] [place] [address] 01/08/2025 10:00 AM EDT Office Visit [facility] ADULT DENTAL [address] [place] [address] Chiquita Montgomery [address] [place] [address] documented as of this encounter Visit Diagnoses Diagnosis History of alcohol abuse Nondependent alcohol abuse, in remission Hypomagnesemia Disorders of magnesium metabolism Mild intermittent asthma, unspecified whether complicated documented in this encounter Additional Health Concerns Assessment Noted Time PHQ-9 Depression Total Score: 0 06/09/19 24 9:13 AM EST documented as of this encounter Care Teams Credit Portfolio Advisor Relationship Specialty Start Date End Date Nathalie Hsu MD 230 [place] [address] PCP - General Family Medicine 09/27/13 Shannan Barrow, KHAI [address] [place] [address] Registered Nurse 02/29/24 Lisbeth Johnson [address] [place] [address] 3rd [place] [address] Gastroenterology 03/15/24 Tonya Poole Reprographics TechnicianManager Cosmetics 01/19/24 Raman ([facility]NA [facility]) Registered Nurse 02/29/24 Marcos Verdin MD [place] [facility] [address] [place] [address] Cardiology 03/10/24 Omid Vincent Psychiatry 03/15/24 documented as of this encounter
--- OUTSIDE RECORDS SUMMARY | 2024-07-07 14:44 | XMS_ITS | Encounter Summary ---
Author Organization [employer] Address [address] 7t [place] [address] Care Team Providers Care Boat Person Name Role Phone Nathalie Hsu MD Primary Care Provider [phone]- [phone] Shannan Barrow RN Unavailable Lisbeth Johnson Unavailable Reason for Visit * Reason Onset Date Comments Hospital Follow-up 03/07/2024 Medication Question 03/07/2024 Encounter Details Date Type Department Care Team (Late st Contact Info) Description 03/07/2024 Telephone [facility] MEDICINE 230 [place], [place] [phone] Nathalie Hsu MD 230 [place], [place] [phone] Hospital Follow-up; Medication Question Social History Tobacco [...] stating wrong number and he doesn't speak tamazight (was not the pt). Telephone call placed [...] asleep easier. * Telephone Encounter - Juventino Newberry - 03/07/2024 2:00 PM EST Tc from [facility] with [facility] Accident Examiner requesting a HDF appt. Pt is concerned about medication melatonin 5 MG tablet he still has trouble sleeping and doesn't want to stop taking. Hospital: [facility] Date of admission: 02/11 Discharge date: 03/01 Diagnosed: Liver Issues Contact pt to schedule at [phone] *Send message to [place] Clinical Care Coordinators documented in this encounter Plan of Treatment Upcoming Encounters Date Type Department Care Team (Late st Contact Info) Description 07/14/2024 1:00 PM EDT Office Visit [facility] MEDICINE 230 [place] [address] Renny Holloway MD 230 [place] [address] 08/03/2024 8:00 AM EDT Office Visit [facility] ADULT DENTAL 230 [place] [address] Panchito Lamas DDS 230 [place] [address] 01/08/2025 10:00 AM EDT Office Visit [facility] ADULT DENTAL 230 [place] [address] Chiquita Montgomery 230 [place] [address] documented as of this encounter Visit Diagnoses Not on filedocumented in this encounter Additional Health Concerns Assessment Noted Time PHQ-9 Depression Total Score: 0 06/09/19 24 9:13 AM EST documented as of this encounter Care Teams Boat Person Relationship Specialty Start Date End Date Nathalie Hsu MD 230 [place] [address] PCP - General Family Medicine 09/27/13 Shannan Barrow, RN 230 [place] [address] Registered Nurse 02/29/24 Lisbeth Johnson [address] [place] [address] Drive 3rd [place] [address] Gastroenterology 03/15/24 Tonya Poole Cdl DriverDouble End Tenoner Setter 01/19/24 Raman ([facility]) Registered Nurse 02/29/24 Marcos Verdin MD [place] [facility] [address] [place] [address] Cardiology 03/10/24 Omid Vincent Psychiatry 03/15/24 documented as of this encounter
--- OUTSIDE RECORDS SUMMARY | 2024-07-07 14:44 | XMS_ITS | Encounter Summary ---
Author Organization [employer] [facility] Address [address] 7t [place] [address] Care Team Providers Care Insurance Claims Analyst Name Role Phone Nathalie Hsu MD Primary Care Provider [phone]- [phone] Shannan Barrow RN Unavailable [phone] Lisbeth Johnson Unavailable Reason for Visit * Reason Onset Date Comments Dr. Lamas medication 06/20/2024 Encounter Details Date Type Department Care Team ([facility] st Contact Info) Description 06/20/2024 Telephone [facility] ADULT DENTAL 230 [place], [place] [phone] Panchito Lamas DDS [address] [place], [place] [phone] Dr. Lamas medication Social History Tobacco Use Types Packs/Day Years [...] encounter Miscellaneous Notes * Telephone Encounter - Panchito Lamas DDS - 06/20/2024 8:30 AM EDT Good morning, All set. Thank you, Dr. Lamas * Telephone Encounter - Adilia Cortez - 06/20/2024 7:58 AM EDT Patient called in requesting for medication to be sent to pharmacy due to discomfort he is having. The antibiotic currently scripted is for pre med use. He is looking for regular antibiotics and painmedication. He was seen on 06/08 and waiting for appt to come in for tx. documented in this encounter Plan of Treatment Upcoming Encounters Date Type Department Care Team (Late st Contact Info) Description 07/14/2024 1:00 PM EDT Office Visit [facility] MEDICINE [address] [place] [address] Renny Hloloway MD 230 [place] [address] 08/03/2024 8:00 AM EDT Office Visit [facility] ADULT DENTAL [address] [place] [address] Panchito Lamas DDS [address] [place] [address] 01/08/2025 10:00 AM EDT Office Visit [facility] ADULT DENTAL [address] [place] [address] UlisesChiquita [address] [place] [address] documented as of this encounter Visit Diagnoses Not on filedocumented in this encounter Additional Health Concerns Assessment Noted Time PHQ-9 Depression Total Score: 0 06/09/19 24 9:13 AM EST documented as of this encounter Care Teams Insurance Claims Analyst Relationship Specialty Start Date End Date Nathalie Hsu MD [address] [place] [address] PCP - General Family Medicine 09/27/13 Shannan Barrow, RN [address] [place] [address] Registered Nurse 02/29/24 Lisbeth Johnson [address] [place] [address] Drive 3rd [place] [address] Gastroenterology 03/15/24 Tonya Poole Police CadetPilot Control Operator 01/19/24 Raman ([facility]) Registered Nurse 02/29/24 Marcos Verdin MD [place] [facility] [address] [place] [address] Cardiology 03/10/24 Omid Vincent Psychiatry 03/15/24 documented as of this encounter
--- OUTSIDE RECORDS SUMMARY | 2024-07-07 14:44 | XMS_ITS | Encounter Summary ---
Author Organization [employer] Address [address] 7t [place] [address] Care Team Providers Care Manager Sports Name Role Phone Nathalie Hsu MD Primary Care Provider [phone]- [phone] Shannan Barrow RN Unavailable [phone] Lisbeth Johnson Unavailable Reason for Visit * Reason Comments Med Refill Encounter Details Date Type Department Care Team (Late st Contact Info) Description 07/04/2024 Refill [facility] ADULT DENTAL 230 [place] [address] Panchito Lamas DDS [address] [place], [place] [phone] Severe dental caries; Dental root caries; Advanced periodontitis; Excessive attrition of teeth, limited to enamel; Missing teeth, acquired; Dental calculus Social History Tobacco Use Types Packs/Day Years [...] Description 07/14/2024 1:00 PM EDT Office Visit [facility] MEDICINE [address] [place] [address] Renny Holloway MD 230 [place] [address] 08/03/2024 8:00 AM EDT Office Visit [facility] ADULT DENTAL [address] [place] [address] Panchito Lamas DDS [address] [place] [address] 01/08/2025 10:00 AM EDT Office Visit [facility] ADULT DENTAL [address] [place] [address] Chiquita Montgomery [address] [place] [address] documented as of this encounter Visit Diagnoses Diagnosis Severe dental caries Dental root caries Advanced periodontitis Excessive attrition of teeth, limited to enamel Missing teeth, acquired Dental calculus Accretions on teeth documented in this encounter Additional Health Concerns Assessment Noted Time PHQ-9 Depression Total Score: 0 06/09/19 24 9:13 AM EST documented as of this encounter Care Teams Manager Sports Relationship Specialty Start Date End Date Nathalie Hsu MD [address] [place] [address] PCP - General Family Medicine 09/27/13 Shannan Barrow, KHAI [address] [place] [address] Registered Nurse 02/29/24 Lisbeth Johnson [address] [place] [address] Drive 3rd [place] [address] Gastroenterology 03/15/24 Tonya Poole Snuff MakerNote Taker 01/19/24 Raman (VNA S) Registered Nurse 02/29/24 Marcos Verdin MD [place] [facility] [address] [place] [address] Cardiology 03/10/24 Omid Vincent Psychiatry 03/15/24 documented as of this encounter
--- OUTSIDE RECORDS SUMMARY | 2024-07-07 14:44 | XMS_ITS | Encounter Summary ---
Author Organization [employer] Address [address] 7t [place] [address] Care Team Providers Care Field Education Director Name Role Phone Nathalie Hsu MD Primary Care Provider [phone]- [phone] Shannan Barrow RN Unavailable [phone] Lisbeth Johnson Unavailable Reason for Visit * Reason Comments Med Refill Encounter Details Date Type Department Care Team (Late st Contact Info) Description 07/05/2024 Refill [facility] MEDICINE 230 [place] [address] Hermelinda Hernandez, ANP 230 [place], [place] [phone] History of prosthetic heart valve Social History [...] encounter Miscellaneous Notes * Telephone Encounter - Greta Burt RN - 07/05/2024 2:40 PM EDT Pt dosed by PCP in conjunction with green team nurse. INR testing performed by [facility] VNA nurse in pt's home. Pt compliant with draws, last INR 3.0 on 07/04/24. Current dose is 2.5mg Tu,Fr, Sa/5mg the rest of the week, recheck INR on 07/11/24. Last office visit with PCP 03/10/24. No upcoming appts. Per protocol, will send to PCP in conjunction with refill request. documented in this encounter Plan of Treatment Upcoming Encounters Date Type Department Care Team (Late st Contact Info) Description 07/14/2024 1:00 PM EDT Office Visit [facility] MEDICINE [address] [place] [address] Renny Holloway MD 230 [place] [address] 08/03/2024 8:00 AM EDT Office Visit [facility] ADULT DENTAL 230 [place] [address] Panchito Lamas DDS 230 [place] [address] 01/08/2025 10:00 AM EDT Office Visit [facility] ADULT DENTAL 230 [place] [address] Chiquita Montgomery 230 [place] [address] documented as of this encounter Visit Diagnoses Diagnosis History of prosthetic heart valve documented in this encounter Additional Health Concerns Assessment Noted Time PHQ-9 Depression Total Score: 0 06/09/19 9:13 AM EST documented as of this encounter Care Teams Field Education Director Relationship Specialty Start Date End Date Nathalie Hsu MD [address] [place] [address] PCP - General Family Medicine 09/27/13 Shannan Barrow, RN [address] [place] [address] Registered Nurse 02/29/24 Lisbeth Johnson [address] [place] [address] Drive 3rd [place] [address] Gastroenterology 03/15/24 Tonya Poole Intelligence AgentProof Reader 01/19/24 Raman (VNA [facility]) Registered Nurse 02/29/24 Marcos Verdin MD [place] [facility] [address] [place] [address] Cardiology 03/10/24 Omid Vincent Psychiatry 03/15/24 documented as of this encounter
--- OUTSIDE RECORDS SUMMARY | 2024-07-07 14:44 | XMS_ITS | Encounter Summary ---
Author Organization [employer] Address [address] 7t [place] [address] Care Team Providers Care Smoke Control Supervisor Name Role Phone Nathalie Hsu MD Primary Care Provider [phone]- [phone] Shannan Barrow RN Unavailable [phone] Lisbeth Johnson Unavailable Reason for Visit * Reason Onset Date Comments Med Refill 03/09/2024 Encounter Details Date Type Department Care Team (Late st Contact Info) Description 03/09/2024 Telephone [facility] MEDICINE [address] [place], [place] [phone] Nathalie Hsu MD 230 [place], [place] [phone] Med Refill Social History Tobacco Use Types [...] 9:13 AM EST Medication was sent to [facility] on 12/13/23 #60 with 3 refills. * Telephone Encounter - Alf Avilez - 03/09/2024 9:07 AM EST TC from pt requesting medication refill. Medications needing refill : melatonin 5 MG tablet To be sent to: [facility] documented in this encounter Plan of Treatment Upcoming Encounters Date Type Department Care Team (Late st Contact Info) Description 07/14/2024 1:00 PM EDT Office Visit [facility] MEDICINE [address] [place] [address] Renny Holloway MD 230 [place] [address] 08/03/2024 8:00 AM EDT Office Visit [facility] ADULT DENTAL [address] [place] [address] Panchito Lamas DDS [address] [place] [address] 01/08/2025 10:00 AM EDT Office Visit [facility] ADULT DENTAL [address] [place] [address] Chiquita Montgomery [address] [place] [address] documented as of this encounter Visit Diagnoses Not on filedocumented in this encounter Additional Health Concerns Assessment Noted Time PHQ-9 Depression Total Score: 0 06/09/19 9:13 AM EST documented as of this encounter Care Teams Smoke Control Supervisor Relationship Specialty Start Date End Date Nathalie Hsu MD [address] [place] [address] PCP - General Family Medicine 09/27/13 Shannan Barrow, RN [address] [place] [address] Registered Nurse 02/29/24 Lisbeth Johnson [address] [place] [address] Drive 3rd [place] [address] Gastroenterology 03/15/24 Tonya Poole Fuel Quality TechRail Technician 01/19/24 Raman (VNA S) Registered Nurse 02/29/24 Marcos Verdin MD [place] [facility] [address] [place] [address] Cardiology 03/10/24 Omid Vincent Psychiatry 03/15/24 documented as of this encounter
--- OUTSIDE RECORDS SUMMARY | 2024-07-07 14:44 | XMS_ITS | Encounter Summary ---
Author Organization [employer] Address [address] 7t [place] [address] Care Team Providers Care Loom Control Chain Builder Name Role Phone Nathalie Hsu MD Primary Care Provider [phone] Shannan Barrow RN Unavailable [phone] Lisbeth Johnson Unavailable Reason for Visit * Reason Onset Date Comments critical lab 07/04/2024 Encounter Details Date Type Department Care Team (Late st Contact Info) Description 07/04/2024 Telephone [facility] [address] [place] [address] Nathalie Hsu MD 230 [place], [place] [phone] critical lab Social History Tobacco Use Types Packs/Day Years [...] Encounter - Greta Burt RN - 07/05/2024 8:54 AM EDT Telephone call to KAVIN Jalloh nurse. Sherin stated that she left for [place] yesterday at 2:30p and turned off her phone. Explained to her that [facility] nurses called her several times yesterday and left generic voicemails to call back [facility] however her voicemail states the name Brianda and there is nothing to suggest it is a confidential [facility] voicemail. Sherin stated pt's previous VNA nurse, Raman, will work with pt while she is away and she stated she will call Raman today to explain the dosing tohim. Cyber Transport Systems Specialist explained dosing is the same as last week: 2.5mg Tu,Fr, Sa/5mg the rest of the week. Sherin verbalized understanding, said yesterday pt continued at correct dosing. Again she stated that she will call KAVIN Camargo. No further questions. * Telephone Encounter - Greta Burt RN - 07/04/2024 3:26 PM EDT Documented in separate encounter from today 07/04/24 as well. Duplicate note below. S: Pt is due for PT/INR today due to hx of DVT's. Pt's target INR is 2.5-3.5. This RN spoke with KAVIN Jalloh who denies any new medications or changes in diet, denies any recent bleeding. Pt has been compliant with INR draws. O: INR today is: 3.0. Pt current dose is 2.5mg Tu,Fr, Sa/5mg the rest of the week A: Hx of DVT Risk for blood clot due to sub therapeutic INR Hx of afib Hx of prosthetic heart valve P: Spoke with covering provider Dr Grayson in office. Per Dr Grayson, pt is to continue same dose as stated above and recheck INR 07/11/24. Called Kelly Jalloh at [phone] to back to advise of plan. Also called [phone]. No answer at either number at 3:15p, 3:30pm, 3:40p, 4:00p left generic voicemails to call back [facility]. Will task to call again. * Telephone Encounter - Yesica Zamora RN - 07/04/2024 12:53 PM EDT TC from KAVIN jalloh with INR results INR of 3.0 No med changes at this time per nurse. Will route to PCP and team to advise. Verbal given to Greta RIDLEY documented in this encounter Plan of Treatment Upcoming Encounters Date Type Department Care Team (Late st Contact Info) Description 07/14/2024 1:00 PM EDT Office Visit [facility] MEDICINE [address] [place] [address] Renny Holloway MD 230 [place] [address] 08/03/2024 8:00 AM EDT Office Visit [facility] ADULT DENTAL [address] [place] [address] Panchito Lamas DDS [address] [place] [address] 01/08/2025 10:00 AM EDT Office Visit [facility] ADULT DENTAL [address] [place] [address] Chiquita Montgomery [address] [place] [address] documented as of this encounter Visit Diagnoses Not on filedocumented in this encounter Additional Health Concerns Assessment Noted Time PHQ-9 Depression Total Score: 0 06/09/19 24 9:13 AM EST documented as of this encounter Care Teams Loom Control Chain Builder Relationship Specialty Start Date End Date Nathalie Hsu MD [address] [place] [address] PCP - General Family Medicine 09/27/13 Shannan Barrow, RN [address] [place] [address] Registered Nurse 02/29/[address]rd [place] [address] Gastroenterology 03/15/24 Tonya Poole Equities TraderRecreational Therapist 01/19/24 Raman (JASMEETA S) Registered Nurse 02/29/24 MD [place] [facility] [address] [place] [address] Cardiology 03/10/24 Omid Vincent Psychiatry 03/15/24 documented as of this encounter
--- OUTSIDE RECORDS SUMMARY | 2024-07-07 14:45 | XMS_ITS | Encounter Summary ---
Author Organization [employer] [facility] Address [address] 7t [place] [address] Care Team Providers Care Host Hostess Name Role Phone Nathalie Hsu MD Primary Care Provider +1- [phone] Shannan Barrow RN Unavailable [phone] Lisbeth Johnson Unavailable Encounter Details Date Type Department Care Team ([facility] Contact Info) Description 05/12/2022 Abstract [facility] MEDICINE [address] [place] [address] Nathalie Hsu MD [address] [place] [address] [phone] Social History Tobacco Use Types Packs/Day Years [...] Department Care Team (Late Contact Info) Description 07/14/2024 1:00 PM EDT Office Visit [facility] MEDICINE 230 [place] [address] Renny Holloway MD 230 [place] [address] 08/03/2024 8:00 AM EDT Office Visit [facility] ADULT DENTAL 230 [place] [address] Panchito Lamas DDS 230 [place] [address] 01/08/2025 10:00 AM EDT Office Visit [facility] ADULT DENTAL [address] [place] [address] Chiquita Montgomery 230 [place] [address] documented as of this encounter Procedures Procedure [...] documented as of this encounter Care Teams Host Hostess Relationship Specialty Start Date End Date Nathalie Hsu MD [address] [place] [address] PCP - General Family Medicine 09/27/13 Shannan Barrow, RN [address] [place] [address] Registered Nurse 02/29/24 Lisbeth Johnson [address] [place] [address] Drive 3rd [place] [address] Gastroenterology 03/15/24 Tonya Poole Bucket OperatorCleaning Staff Supervisor 01/19/24 Raman ([facility] Registered Nurse 02/29/24 Marcos Verdin MD [place] [facility] [address] [place] [address] Cardiology 03/10/24 Omid Vincent Psychiatry 03/15/24 documented as of this encounter
--- OUTSIDE RECORDS SUMMARY | 2024-07-07 14:45 | XMS_ITS | Encounter Summary ---
Author Organization [employer] Address [address] 7t [place] [address] Care Team Providers Care Plant Protection Guard Name Role Phone Nathalie Hsu MD Primary Care Provider +1- [phone] Shannan Barrow RN Unavailable [phone] Lisbeth Johnson Unavailable Encounter Details Date Type Department Care Team (Late st Contact Info) Description 05/12/2023 Orders Only [facility] MEDICINE 230 [place], [place] [phone] Nathalie Hsu MD 230 [place], [place] [phone] Social History Tobacco Use Types Packs/Day Years [...] Description 07/14/2024 1:00 PM EDT Office Visit [facility] MEDICINE [address] [place] [address] Renny Holloway MD [address] [place] [address] 08/03/2024 8:00 AM EDT Office Visit [facility] ADULT DENTAL [address] [place] [address] Panchito Lamas DDS 230 [place] [address] 01/08/2025 10:00 AM EDT Office Visit [facility] ADULT DENTAL [address] [place] [address] Chiquita Montgomery 230 [place] [address] documented as of this encounter Visit Diagnoses Not on filedocumented in this encounter Additional Health Concerns Assessment Noted Time PHQ-9 Depression Total Score: 6 05/08/19 23 10:33 AM EST documented as of this encounter Care Teams Plant Protection Guard Relationship Specialty Start Date End Date Nathalie Hsu MD [address] [place] [address] PCP - General Family Medicine 09/27/13 Shannan Barrow RN [address] [place] [address], [place] [address] Registered Nurse 02/29/24 Lisbeth Johnson [address] 3rd [place] [address] Gastroenterology 03/15/24 Tonya Poole Joiner ApprenticeLicensed Marriage And Family Therapist 01/19/24 Raman ([facility]) Registered Nurse 02/29/24 Marcos Verdin MD [place] [facility] [address] [place] [address] Cardiology 03/10/24 mOid Vincent Psychiatry 03/15/24 documented as of this encounter
--- OUTSIDE RECORDS SUMMARY | 2024-07-07 14:45 | XMS_ITS | Encounter Summary ---
Author Organization [employer] Address [address] 7t [place] [address] Care Team Providers Care Socket Puller Name Role Phone Nathalie Hsu MD Primary Care Provider +1- [phone] Shannan Barrow RN Unavailable [phone] Lisbeth Johnson Unavailable Reason for Visit * Reason Comments Med Refill Encounter Details Date Type Department Care Team (Late st Contact Info) Description 11/01/2023 Refill [facility] MED [facility] PEDS [address] [place], [place] [phone] Nathalie Hsu MD 230 [place], [place] [phone] Mild intermittent asthma, unspecified whether complicated Social [...] the past 12 months, has t he [employer], gas, 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 threatened to [...] Description 07/14/2024 1:00 PM EDT Office Visit [facility] MEDICINE [address] [place] [address] Renny Holloway MD 230 [place] [address] 08/03/2024 8:00 AM EDT Office Visit [facility] ADULT DENTAL [address] [place] [address] Panchito Lamas DDS [address] [place] [address] 01/08/2025 10:00 AM EDT Office Visit [facility] ADULT DENTAL [address] [place] [address] Chiquita Montgomery 230 [place] [address] documented as of this encounter Visit Diagnoses Diagnosis Mild intermittent asthma, unspecified whether complicated documented in this encounter Additional Health Concerns Assessment Noted Time PHQ-9 Depression Total Score: 0 06/09/19 24 9:13 AM EST documented as of this encounter Care Teams Socket Puller Relationship Specialty Start Date End Date Nathalie Hsu MD 230 [place] [address] PCP - General Family Medicine 09/27/13 Shannan Barrow, RN [address] [place] [address] Registered Nurse 02/29/24 Lisbeth Johnson [address] [place] [address] 3rd [place] [address] Gastroenterology 03/15/24 Tonya Poole Sales And Marketing AssistantYardage Estimator 01/19/24 Raman ([facility]) Registered Nurse 02/29/24 Marcos Verdin MD [place] [facility] [address] [place] [address] Cardiology 03/10/24 Omid Vincent Psychiatry 03/15/24 documented as of this encounter
--- OUTSIDE RECORDS SUMMARY | 2024-07-07 14:45 | XMS_ITS | Encounter Summary ---
Author Organization [employer] [facility] Address [address] 7t [place] [address] Care Team Providers Care Pipe Line Repairer Name Role Phone Nathalie Hsu MD Primary Care Provider +1- [phone] Shannan Barrow RN Unavailable [phone] Lisbeth Johnson Unavailable Encounter Details Date Type Department Care Team (Late st Contact Info) Description 08/11/2023 Telephone [facility] MEDICINE 230 [place], [place] [phone] Nathalie Hsu MD 230 [place], [place] [phone] Social History Tobacco Use Types Packs/Day Years [...] 07/14/2024 1:00 PM EDT Office Visit [facility] MEDICINE 230 [place] [address] Renny Holloway MD 230 [place] [address] 08/03/2024 8:00 AM EDT Office Visit [facility] ADULT DENTAL [address] [place] [address] Panchito Lamas DDS 230 [place] [address] 01/08/2025 10:00 AM EDT Office Visit [facility] ADULT DENTAL [address] [place] [address] Chiquita Montgomery 230 [place] [address] documented as of this encounter Visit Diagnoses Not on filedocumented in this encounter Additional Health Concerns Assessment Noted Time PHQ-9 Depression Total Score: 0 06/09/19 24 9:13 AM EST documented as of this encounter Care Teams Pipe Line Repairer Relationship Specialty Start Date End Date Nathalie Hsu MD 230 [place] [address] PCP - General Family Medicine 09/27/13 Shannan Barrow, RN 230 [place] [address] Registered Nurse 02/29/[address] 3rd [place] [address] Gastroenterology 03/15/24 Tonya Poole BlockmanTree Planter 01/19/24 Raman (A S) Registered Nurse 02/29/24 Marcos Verdin MD [place] [facility] [address] [place] [address] Cardiology 03/10/24 Omid Vincent Psychiatry 03/15/24 documented as of this encounter
--- OUTSIDE RECORDS SUMMARY | 2024-07-07 14:45 | XMS_ITS | Encounter Summary ---
Author Organization [employer] [facility] Address [address] [facility] 7t [place] [address] Care Team Providers Care Student Teacher Name Role Phone Nathalie Hsu MD Primary Care Provider + [phone] Shannan Barrow RN Unavailable [phone] Lisbeth Johnson Unavailable Encounter Details Date Type Department Care Team (Late st Contact Info) Description 04/01/2022 Orders Only [facility] MEDICINE [address] [place] [address] Anabell Weston, KHAI Social History Tobacco Use [...] 1:00 PM EDT Office Visit [facility] MEDICINE [address] [place] [address] Renny Holloway MD [address] [place] [address] [phone] 08/03/2024 8:00 AM EDT Office Visit [facility] ADULT DENTAL [address] [place] [address] [phone] Panchito Lamas DDS 230 [place], [place] [phone] 01/08/2025 10:00 AM EDT Office Visit [facility] ADULT DENTAL 230 [place], [place] [phone] Chiquita Montgomery 230 [place] [address] documented as of this encounter Visit Diagnoses Not on filedocumented in this encounter Care Teams Student Teacher Relationship Specialty Start Date End Date Nathalie Hsu MD 230 [place] [address] PCP - General Family Medicine 09/27/13 Shannan Barrow, KHAI 230 [place] [address] Registered Nurse 02/29/24 Lisbeth Johnson [address] [place] [address] 3rd [place] [address] Gastroenterology 03/15/24 Tonya Poole Refinery Operator Helper Crude UnitFerry Captain 01/19/24 Raman ([facility]) Registered Nurse 02/29/24 Marcos Verdin MD [place] [facility] [address] [place] [address] Cardiology 03/10/24 Omid Vincent Psychiatry 03/15/24 documented as of this encounter
--- OUTSIDE RECORDS SUMMARY | 2024-07-07 14:45 | XMS_ITS | Encounter Summary ---
Author Organization [employer] Address [address] 7t [place] [address] Care Team Providers Care Weapons Specialist Name Role Phone Nathalie Hsu MD Primary Care Provider [phone]- [phone] Shannan Barrow RN Unavailable [phone] Lisbeth Johnson Unavailable Reason for Visit * Reason Comments Med Refill Encounter Details Date Type Department Care Team (Late st Contact Info) Description 02/28/2023 Refill [facility] MEDICINE 230 [place], [place] [phone] Nathalie Hsu MD 230 [place], [place] [phone] Social History Tobacco Use Types Packs/Day Years [...] Description 07/14/2024 1:00 PM EDT Office Visit [facility] MEDICINE [address] [place] [address] Renny Holloway MD [address] [place] [address] 08/03/2024 8:00 AM EDT Office Visit [facility] ADULT DENTAL 230 [place] [address] Panchito Lamas DDS [address] [place] [address] 01/08/2025 10:00 AM EDT Office Visit [facility] ADULT DENTAL 230 [place] [address] Chiquita Montgomery 230 [place] [address] documented as of this encounter Visit Diagnoses Not on filedocumented in this encounter Additional Health Concerns Assessment Noted Time PHQ-9 Depression Total Score: 6 05/08/19 23 10:33 AM EST documented as of this encounter Care Teams Weapons Specialist Relationship Specialty Start Date End Date Nathalie Hsu MD [address] [place] [address] PCP - General Family Medicine 09/27/13 Shannan Barrow RN [address] [place] [address] Registered Nurse 02/29/24 Alex Lisbeth [address] [place] [address] 3rd [place] [address] Gastroenterology 03/15/24 Tonya Poole Associate JusticeSeed Laboratory Assistant 01/19/24 Raman (A [facility]) Registered Nurse 02/29/24 Marcos Verdin MD [place] [facility] [address] [place] [address] Cardiology 03/10/24 Omid Vincent Psychiatry 03/15/24 documented as of this encounter
--- OUTSIDE RECORDS SUMMARY | 2024-07-07 14:45 | XMS_ITS | Encounter Summary ---
Author Organization [employer] Address [address] 7t [place] [address] Care Team Providers Care Warehouse Handler Name Role Phone Nathalie Hsu MD Primary Care Provider [phone]- [phone] Shannan Barrow RN Unavailable [phone] Lisbeth Johnson Unavailable Reason for Visit * Reason Comments Med Refill Encounter Details Date Type Department Care Team (Late st Contact Info) Description 02/12/2023 Refill [facility] MEDICINE 230 [place], [place] [phone] Nathalie Hsu MD 230 [place], [place] [phone] Pain Social History Tobacco Use Types Packs/Day [...] Description 07/14/2024 1:00 PM EDT Office Visit [facility] MEDICINE [address] [place] [address] Renny Holloway MD [address] [place] [address] 08/03/2024 8:00 AM EDT Office Visit [facility] ADULT DENTAL 230 [place] [address] Panchito Lamas DDS 230 [place] [address] 01/08/2025 10:00 AM EDT Office Visit [facility] ADULT DENTAL 230 [place] [address] Chiquita Montgomery 230 [place] [address] documented as of this encounter Visit Diagnoses Diagnosis Pain Generalized pain documented in this encounter Additional Health Concerns Assessment Noted Time PHQ-9 Depression Total Score: 6 05/08/19 23 10:33 AM EST documented as of this encounter Care Teams Warehouse Handler Relationship Specialty Start Date End Date Nathalie Hsu MD [address] [place] [address] PCP - General Family Medicine 09/27/13 Shannan Barrow RN [address] [place] [address] Registered Nurse 02/29/24 Alex Lisbeth [address] [place] [address] 3rd [place] [address] Gastroenterology 03/15/24 Tonya Poole Technical Sales Support SpecialistChain Hoist Operator 01/19/24 Raman (A [facility]) Registered Nurse 02/29/24 Marcos Verdin MD [place] [facility] [address] [place] [address] Cardiology 03/10/24 Omid Vincent Psychiatry 03/15/24 documented as of this encounter
--- OUTSIDE RECORDS SUMMARY | 2024-07-07 14:45 | XMS_ITS | Encounter Summary ---
Author Organization [employer] Address [address] 7t [place] [address] Care Team Providers Care Punch Press Setter Name Role Phone Nathalie Hsu MD Primary Care Provider [phone]- [phone] Shannan Barrow RN Unavailable [phone] Lisbeth Johnson Unavailable Reason for Visit * Reason Onset Date Comments Coagulation Disorder 05/12/2023 Encounter Details Date Type Department Care Team (Late st Contact Info) Description 05/12/2023 Telephone [facility] MEDICINE 230 [place], [place] [phone] Nathalie Hsu MD 230 [place], [place] [phone] Coagulation Disorder Social History Tobacco Use Types [...] to report INR. Please contact raman at [phone] documented in this encounter Plan of Treatment Upcoming Encounters Date Type Department Care Team (Late st Contact Info) Description 07/14/2024 1:00 PM EDT Office Visit [facility] MEDICINE [address] [place] [address] Renny Holloway MD 230 [place] [address] 08/03/2024 8:00 AM EDT Office Visit [facility] ADULT DENTAL [address] [place] [address] Panchito Lamas DDS 230 [place] [address] 01/08/2025 10:00 AM EDT Office Visit [facility] ADULT DENTAL [address] [place] [address] Chiquita Montgomery [address] [place] [address] documented as of this encounter Visit Diagnoses Not on filedocumented in this encounter Additional Health Concerns Assessment Noted Time PHQ-9 Depression Total Score: 6 05/08/19 23 10:33 AM EST documented as of this encounter Care Teams Punch Press Setter Relationship Specialty Start Date End Date Nathalie Hsu MD 230 [place] [address] PCP - General Family Medicine 09/27/13 Shannan Barrow, RN 230 [place] [address] Registered Nurse 02/29/24 Lisbeth Johnson [address] [place] [address] Drive 3rd [place] [address] Gastroenterology 03/15/24 Tonya Poole Waxer OperatorAircraft Captain 01/19/24 Raman (A S) Registered Nurse 02/29/24 Marcos Verdin MD [place] [facility] [address] [place] [address] Cardiology 03/10/24 Omid Vincent Psychiatry 03/15/24 documented as of this encounter
--- OUTSIDE RECORDS SUMMARY | 2024-07-07 14:45 | XMS_ITS | Encounter Summary ---
Author Organization [email or web address] Address [address] 7t [place] [address] Care Team Providers Care Safe Technician Name Role Phone Nathalie Hsu MD Primary Care Provider +1- [phone] Shannan Barrow RN Unavailable [phone] Lisbeth Johnson Unavailable Reason for Visit * Reason Onset Date Comments INR report 03/31/2023 Encounter Details Date Type Department Care Team (Late st Contact Info) Description 03/31/2023 Telephone [facility] MEDICINE 230 [place], [place] [phone] Nathalie Hsu MD 230 [place], [place] [phone] INR report Social History Tobacco Use Types [...] encounter Miscellaneous Notes * Telephone Encounter - Alexandremartita Keenan Bouchra - 03/31/2023 3:39 PM EST Tc from Raman VALE with [facility] requesting a call from a nurse to report an INR results. Please contact Raman @ [phone] documented in this encounter Plan of Treatment Upcoming Encounters Date Type Department Care Team (Late st Contact Info) Description 07/14/2024 1:00 PM EDT Office Visit [facility] MEDICINE 230 [place] [address] Renny Holloway MD 230 [place] [address] 08/03/2024 8:00 AM EDT Office Visit [facility] ADULT DENTAL 230 [place] [address] Panchito Lamas DDS 230 [place] [address] 01/08/2025 10:00 AM EDT Office Visit [facility] ADULT DENTAL 230 [place] [address] Chiquita Montgomery 230 [place] [address] documented as of this encounter Visit Diagnoses Not on filedocumented in this encounter Additional Health Concerns Assessment Noted Time PHQ-9 Depression Total Score: 6 05/08/19 23 10:33 AM EST documented as of this encounter Care Teams Safe Technician Relationship Specialty Start Date End Date Nathalie Hsu MD 230 [place] [address] PCP - General Family Medicine 09/27/13 Shannan Barrow, RN 230 [place] [address] Registered Nurse 02/29/24 Lisbeth Johnson [address] [place] [address] Drive 3rd [place] [address] Gastroenterology 03/15/24 Tonya Poole Rehabilitation CounselorLink Assembler 01/19/24 Raman (A S) Registered Nurse 02/29/24 Marcos Verdin MD [place] [facility] [address] [place] [address] Cardiology 03/10/24 Omid Vincent Psychiatry 03/15/24 documented as of this encounter
--- OUTSIDE RECORDS SUMMARY | 2024-07-07 14:45 | XMS_ITS | Encounter Summary ---
Author Organization [email or web address] [facility] Address [address] 7t [place] [address] Care Team Providers Care Battery Assembler Name Role Phone Nathalie Hsu MD Primary Care Provider [phone]- [phone] Shannan Barrow RN Unavailable [phone] Lisbeth Johnson Unavailable Reason for Visit * Reason Onset Date Comments Results 01/12/2023 INR Encounter Details Date Type Department Care Team (Late st Contact Info) Description 01/12/2023 Telephone [facility] MEDICINE 230 [place] [address] Nathalie Hsu MD 230 [place], [place] [phone] Results (INR) Social History Tobacco Use Types [...] 12:36 PM EDT Tc from Gavin at [facility] reporting INR results. Please call [phone] documented in this encounter Plan of Treatment Upcoming Encounters Date Type Department Care Team (Late st Contact Info) Description 07/14/2024 1:00 PM EDT Office Visit [facility] MEDICINE 230 [place] [address] Renny Holloway MD 230 [place] [address] 08/03/2024 8:00 AM EDT Office Visit [facility] ADULT DENTAL 230 [place] [address] Panchito Lamas DDS 230 [place] [address] 01/08/2025 10:00 AM EDT Office Visit [facility] ADULT DENTAL 230 [place] [address] Chiquita Montgomery 230 [place] [address] documented as of this encounter Visit Diagnoses Not on filedocumented in this encounter Additional Health Concerns Assessment Noted Time PHQ-9 Depression Total Score: 6 05/08/19 23 10:33 AM EST documented as of this encounter Care Teams Battery Assembler Relationship Specialty Start Date End Date Nathalie Hsu MD 230 [place] [address] PCP - General Family Medicine 09/27/13 Shannan Barrow, RN 230 [place] [address] Registered Nurse 02/29/24 Lisbeth Johnson [address] [place] [address] 3rd [place] [address] Gastroenterology 03/15/24 Tonya Poole Facility Maintenance HelperMechanic And Welder 01/19/24 Raman (A [facility]) Registered Nurse 02/29/24 Marcos Verdin MD [place] [facility] [address] [place] [address] Cardiology 03/10/24 Omid Vincent Psychiatry 03/15/24 documented as of this encounter
== END 2024-07-07 15:27 | disposition home or self-care (01) ==
LOC: HO.HCC 12:56
PROVIDERS: PCP Family Medicine; Visit Provider Internal Medicine
DX: F10.20 Alcohol dependence, uncomplicated (principal); Z72.0 Tobacco use; Z55.6 Problems related to health literacy; Z51.81 Encounter for therapeutic drug level monitoring
CPT/HCPCS: 99202

== ENCOUNTER → 2024-07-07 12:56 | Outpatient (BNVA) | payer MEDICAID, SELFPAY | PROVIDERS: PCP Family Medicine; Visit Provider Internal Medicine | DX: F10.20 Alcohol dependence, uncomplicated (principal); F17.210 Nicotine dependence, cigarettes, uncomplicated; Z55.6 Problems related to health literacy | CPT/HCPCS: 80307; 99202 ==

== ENCOUNTER 2024-07-14 13:45 | Outpatient (REF) | payer MEDICAID, SELFPAY ==
--- OUTSIDE RECORDS SUMMARY | 2024-07-14 14:07 | XMS_ITS | Encounter Summary ---
Author Organization [employer] Address [address] [address] 7t [place] [address] Care Team Providers Care Kettle Tender Name Role Phone Nathalie Hsu MD Primary Care Provider [phone]- [phone] Shannan Barrow RN Unavailable [phone] Lisbeth Johnson Unavailable Reason for Visit * Reason Onset Date Comments PT-1 05/26/2024 Encounter Details Date Type Department Care Team (Late st Contact Info) Description 05/26/2024 Telephone [facility] MEDICINE 230 [place], [place] [phone] Nathalie Hsu MD 230 [place], [place] [phone] PT-1 Social History Tobacco Use Types Packs/Day [...] Y/N: Yes Provider name or facility name: [address] [address] Escort needed: Y/N: No Do you have a wheelchair: Y/N: No If yes- Manual or electric: N/A Visits: (amount of visits) ( x monthly, weekly, daily) 2 times per month. documented in this encounter Plan of Treatment Upcoming Encounters Date Type Department Care Team (Late st Contact Info) Description 08/03/2024 8:00 AM EDT Office Visit [facility] ADULT DENTAL 230 [place] [address] Panchito Lamas DDS 230 [place] [address] 08/11/2024 1:15 PM EDT Office Visit [facility] MEDICINE 230 [place] [address] Renny Holloway MD 230 [place] [address] 11/09/2024 1:00 PM EDT Office Visit [facility] OPTOMETRY [address] [place] [address] Seth, Zabrina, OD 230 [place] [address] 01/08/2025 10:00 AM EDT Office Visit [facility] ADULT DENTAL 230 [place] [address] Ulises, Chiquita 230 [place] [address] documented as of this encounter Visit Diagnoses Not on filedocumented in this encounter Additional Health Concerns Assessment Noted Time PHQ-9 Depression Total Score: 0 06/09/19 24 9:13 AM EST documented as of this encounter Care Teams Kettle Tender Relationship Specialty Start Date End Date Nathalie Hsu MD [address] [place] [address] PCP - General Family Medicine 09/27/13 Shannan Barrow, KHAI [address] [place] [address] Registered Nurse 02/29/[address] 3rd [place] [address] Gastroenterology 03/15/24 Tonya Poole Chemical SupervisorHard Metals Hand Engraver 01/19/24 Raman (A [facility]) Registered Nurse 02/29/24 Marcos Verdin MD [place] [facility] [address] [place] [address] Cardiology 03/10/24 Omid Vincent Psychiatry 03/15/24 documented as of this encounter
--- OUTSIDE RECORDS SUMMARY | 2024-07-14 14:07 | XMS_ITS | Encounter Summary ---
Author Organization [employer] [facility] Address [address] 7t [place] [address] Care Team Providers Care Plant Tender Name Role Phone Nathalie Hsu MD Primary Care Provider [phone]- [phone] Shannan Barrow RN Unavailable [phone] Lisbeth Johnson Unavailable Reason for Visit * Reason Onset Date Comments Dr. Lamas medication 06/20/2024 Encounter Details Date Type Department Care Team ([facility] st Contact Info) Description 06/20/2024 Telephone [facility] [address] [place], [place] [phone] Panchito Lamas DDS [address] [place], [place] [phone] Dr. Lamas medication Social History Tobacco Use [...] Description 08/03/2024 8:00 AM EDT Office Visit [facility] [address] [place] [address] Panchito Lamas DDS [address] [place] [address] 08/11/2024 1:15 PM EDT Office Visit [facility] [address] [place] [address] Renny Holloway MD [address] [place] [address] 11/09/2024 1:00 PM EDT Office Visit [facility] OPT[facility] [address] [place] [address] Zabrina Ann, OD [address] [place] [address] 01/08/2025 10:00 AM EDT Office Visit [facility] [address] [place] [address] Ulises, Chiquita [address] [place] [address] documented as of this encounter Visit Diagnoses Not on filedocumented in this encounter Additional Health Concerns Assessment Noted Time PHQ-9 Depression Total Score: 0 06/09/19 24 9:13 AM EST documented as of this encounter Care Teams Plant Tender Relationship Specialty Start Date End Date Nathalie Hsu MD [address] [place] [address] PCP - General Family Medicine 09/27/13 Shannan Barrow, KHAI [address] [place] [address] Registered Nurse 02/29/24 Lisbeth Johnson [address] [place] [address] Drive 3rd [place] [address] Gastroenterology 03/15/24 Tonya Poole Dustless OperatorAssociate Technician 01/19/24 Raman [facility]) Registered Nurse 02/29/24 MD [facility] [facility] [address] [place] [address] Cardiology 03/10/24 Omid Vincent Psychiatry 03/15/24 documented as of this encounter
--- OUTSIDE RECORDS SUMMARY | 2024-07-14 14:07 | XMS_ITS | Encounter Summary ---
Author Organization [employer] Address [address] 7t [place] [address] Care Team Providers Care Electrical Journeyman Name Role Phone Nathalie Hsu MD Primary Care Provider [phone]- [phone] Shannan Barrow RN Unavailable [phone] Lisbeth Johnson Unavailable Reason for Visit * Reason Comments Med Refill Encounter Details Date Type Department Care Team (Late st Contact Info) Description 07/04/2024 Refill [facility] [address] [place] [address] Panchito Lamas DDS [address] [place], [place] [phone] Severe dental caries; Dental root caries; Advanced [...] Description 08/03/2024 8:00 AM EDT Office Visit [facility] [address] [place] [address] Panchito Lamas DDS [address] [place] [address] 08/11/2024 1:15 PM EDT Office Visit [facility] [address] [place] [address] Renny Holloway MD [address] [place] [address] 11/09/2024 1:00 PM EDT Office Visit [facility] OPT[facility]ET[facility] [address] [place] [address] Zabrina Ann, OD [address] [place] [address] 01/08/2025 10:00 AM EDT Office Visit [facility] [address] [place], [place] [phone] Chiquita Montgomery [address] [place] [address] documented as of this encounter Visit Diagnoses Diagnosis Severe dental caries Dental root caries Advanced periodontitis Excessive attrition of teeth, limited to enamel Missing teeth, acquired Dental calculus Accretions on teeth documented in this encounter Additional Health Concerns Assessment Noted Time PHQ-9 Depression Total Score: 0 06/09/19 24 9:13 AM EST documented as of this encounter Care Teams Electrical Journeyman Relationship Specialty Start Date End Date Nathalie Hsu MD [address] [place] [address] PCP - General Family Medicine 09/27/13 Shannan Barrow, KHAI [address] [place] [address] Registered Nurse 02/29/24 Lisbeth Johnson [address] [place] [address] [address] [place] [address] Gastroenterology 03/15/24 Tonya Poole Senior [employer] Software EngineerFinancial Report Service Sales Agent 01/19/24 Raman ([facility]) Registered Nurse 02/29/24 Marcos Verdin MD [place] [facility] [address] [place] [address] Cardiology 03/10/24 Omid Vincent Psychiatry 03/15/24 documented as of this encounter
--- OUTSIDE RECORDS SUMMARY | 2024-07-14 14:07 | XMS_ITS | Encounter Summary ---
Author Organization [employer] Address [address] 7t [place] [address] Care Team Providers Care Car Dryer Name Role Phone Nathalie Hsu MD Primary Care Provider [phone]- [phone] Shannan Barrow RN Unavailable [phone] Lisbeth Johnson Unavailable Reason for Visit * Reason Comments Med Refill Encounter Details Date Type Department Care Team (Late st Contact Info) Description 03/30/[address] [facility] [address] [place], [place] [phone] Nathalie Hsu MD [address] [place], [place] [phone] History of alcohol abuse; Hypomagnesemia; Mild intermittent [...] Description 08/03/2024 8:00 AM EDT Office Visit [facility] [address] [place] [address] Panchito Lamas DDS [address] [place] [address] 08/11/2024 1:15 PM EDT Office Visit [facility] [address] [place] [address] Renny Holloway MD [address] [place] [address] 11/09/2024 1:00 PM EDT Office Visit [facility] [address] [place] [address] Zabrina Ann, GEETA [address] [place] [address] 01/08/2025 10:00 AM EDT Office Visit [facility] [address] [place] [address] Chiquita Montgomery [address] [place] [address] documented as of this encounter Visit Diagnoses Diagnosis History of alcohol abuse Nondependent alcohol abuse, in remission Hypomagnesemia Disorders of magnesium metabolism Mild intermittent asthma, unspecified whether complicated documented in this encounter Additional Health Concerns Assessment Noted Time PHQ-9 Depression Total Score: 0 06/09/19 24 9:13 AM EST documented as of this encounter Care Teams Car Dryer Relationship Specialty Start Date End Date Nathalie Hsu MD [address] [place] [address] PCP - General Family Medicine 09/27/13 Shannan Barrow, KHAI [address] [place] [address] Registered Nurse 02/29/24 Lisbeth Johnson [address] [place] [address] Drive 3rd [place] [address] Gastroenterology 03/15/24 Tonya Poole Terrazzo Tile SetterSpot Facer 01/19/24 aRman ([facility]) Registered Nurse 02/29/24 Marcos Verdin MD [place] [facility] [address] [place] [address] Cardiology 03/10/24 Omid Vincent Psychiatry 03/15/24 documented as of this encounter
--- OUTSIDE RECORDS SUMMARY | 2024-07-14 14:07 | XMS_ITS | Encounter Summary ---
Author Organization [employer] Address [address]t [place] [address] Care Team Providers Care Community Artist Name Role Phone Nathalie Hsu MD Primary Care Provider [phone] Shannan Barrow RN Unavailable Lisbeth Johnson Unavailable Reason for Visit * Reason Onset Date Comments Hospital Follow-up 03/07/2024 Medication Question 03/07/2024 Encounter Details Date Type Department Care Team (Late st Contact Info) Description 03/07/2024 Telephone [facility] [address] [place], [place] [phone] Nathalie Hsu MD [address] [place], [place] [phone] Hospital Follow-up; Medication Question Social History Tobacco [...] stating wrong number and he doesn't speak bhutanese (was not the pt). Telephone call placed [...] - 03/07/2024 2:00 PM EST [facility] Print Machine Operator requesting a HDF appt. Pt is concerned about medication melatonin 5 MG tablet he still has trouble sleeping and doesn't want to stop taking. Hospital: [facility] Date of admission: 02/11 Discharge date: 03/01 Diagnosed: Liver Issues Contact pt to schedule at [phone] *Send message to [facility] Clinical Care Coordinators documented in this encounter Plan of Treatment Upcoming Encounters Date Type Department Care Team (Late st Contact Info) Description 08/03/2024 8:00 AM EDT Office Visit [facility] [address] [place] [address] Panchito Lamas DDS [address] [place] [address] 08/11/2024 1:15 PM EDT Office Visit [facility] [address] [place] [address] Renny Holloway MD [address] [place] [address] 11/09/2024 1:00 PM EDT Office Visit [facility] OPTOMET[facility] [address] [place] [address] Zabrina Ann OD [address] [place] [address] 01/08/2025 10:00 AM EDT Office Visit [facility] [address] [place] [address] Chiquita Montgomery [address] [place] [address] documented as of this encounter Visit Diagnoses Not on filedocumented in this encounter Additional Health Concerns Assessment Noted Time PHQ-9 Depression Total Score: 0 06/09/19 24 9:13 AM EST documented as of this encounter Care Teams Community Artist Relationship Specialty Start Date End Date Nathalie Hsu MD [address] [place] [address] PCP - General Family Medicine 09/27/13 Shannan Barrow, RN [address] [place] [address] Registered Nurse 02/29/24 Lisbeth Johnson [address] [place] [address] Drive 3rd [place] [address] Gastroenterology 03/15/24 Tonya Poole Contact Center DirectorElectro Mechanical Technologist 01/19/24 Raman ([facility]) Registered Nurse 02/29/24 Marcos Verdin MD [place] [facility] [address] [place] [address] Cardiology 03/10/24 Omid Vincent Psychiatry 03/15/24 documented as of this encounter
--- OUTSIDE RECORDS SUMMARY | 2024-07-14 14:08 | XMS_ITS | Encounter Summary ---
Author Organization [employer] [facility] Address [address] 7t [place] [address] Care Team Providers Care Mine Administrator Supervisor Name Role Phone [place], Nathalie ABDI Primary Care Provider + [phone] Shannan Barrow RN Unavailable [phone] Lisbeth Johnson Unavailable Encounter Details Date Type Department Care Team (Late st Contact Info) Description 11/27/2022 Orders Only [facility] MED[facility] [address] [place] [address] Jose Dockery [address] [place] [address] Social History Tobacco Use Types Packs/Day Years [...] Description 08/03/2024 8:00 AM EDT Office Visit [facility] ADULT DENTAL [address] [place], [place] [phone] Panchito Lamas DDS [address] [place], [place] [phone] 08/11/2024 1:15 PM EDT Office Visit [facility] MED[facility] [address] [place] [address] Renny Holloway MD [address] [place] [address] 11/09/2024 1:00 PM EDT Office Visit [facility] OPTOMETRY [address] [place] [address] Seth, Zabrina, OD [address] [place] [address] 01/08/2025 10:00 AM EDT Office Visit [facility] ADULT DENTAL [address] [place] [address] Ulises, Chiquita [address] [place] [address] documented as of this encounter Visit Diagnoses Not on filedocumented in this encounter Additional Health Concerns Assessment Noted Time PHQ-9 Depression Total Score: 6 05/08/19 23 10:33 AM EST documented as of this encounter Care Teams Mine Administrator Supervisor Relationship Specialty Start Date End Date Nathalie Hsu MD [address] [place] [address] PCP - General Family Medicine 09/27/13 Shannan Barrow, RN [address] [place] [address] Registered Nurse 02/29/24 Lisbeth Johnson [address] [place] [address] Drive 3rd [place] [address] Gastroenterology 03/15/24 Tonya Poole Edge SawyerConstruction Project Coordinator 01/19/24 Raman ([facility]) Registered Nurse 02/29/24 Marcos Verdin MD [place] and [facility] [address] [place] [address] Cardiology 03/10/24 Omid Vincent Psychiatry 03/15/24 documented as of this encounter
--- OUTSIDE RECORDS SUMMARY | 2024-07-14 14:08 | XMS_ITS | Clinical Summary ---
Author Organization [email or web address] Address [address] [facility] [address] [place] [address] Care Team Providers Care Professional Healthcare Representative Name Role Phone Nathalie Hsu MD Primary Care Provider [phone] Shannan Barrow RN Unavailable [phone] Lisbeth Johnson Unavailable Allergies Active Allergy [...] CLINIC 60 tablet 2 07/06/19 25 Active nicotine (Nicoderm, Step 2) 14 MG/24HR patchIndication s:Nicotine Dependence Place 1 patch on the skin 1 (one) time each day at the same time. 28 patch 2 07/15/19 25 025 Active warfarin (Coumadin) 5 MG tabletIndicatio ns:History [...] up to 20 doses. 20 tablet 06/05/19 25 025 Discontinued(R eorder (will not trigger [...] 12/10/23 and INR was 13, transferred to [facility] Closed fracture of transvers e process [...] diet discussed. Avoid hepatotoxic agents. -Followed by: Physical Anthropologist, Dr. Johnson: 03/15/24 at [facility] Gastroenterolog: MELD 22 on most recent labs. 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 - Pt reminded to bring [...] by: New appointment with GI 03/15/24 at [facility] Gastroenterology Assessment & Plan (01/19/2024 9:14 AM [...] due after 03/03/2024 -eye care facilitated by [facility] -dental home is [facility] -health care proxy on file 02/08/2015, filed [facility] on 06/09/23 Assessment & Plan (03/10/2024 9:55 PM EST): -next comprehensive annual evaluation due after 03/03/2024 -eye care facilitated by [facility] -dental home is [facility] -[facility] care proxy on file 02/08/2015, filed into [employer] on 06/09/23 Assessment & Plan (01/19/2024 9:20 AM EDT): -next comprehensive annual evaluation due after 03/03/2024 -eye care facilitated by [facility] -dental home is [facility] care proxy on file 02/08/2015, filed into [employer] on 06/09/23 Assessment & Plan (12/27/2023 11:02 AM EDT): -next comprehensive annual evaluation due after 03/03/2024 -eye care facilitated by [facility] -dental home is [facility] - [facility] care proxy on file 02/08/2015, filed into [employer] on 06/09/23 Assessment & Plan (10/22/2023 11:16 AM EDT): -next physical exam due after 03/03/2024 -eye care facilitated by [facility] -dental home is [facility] care proxy on file 02/08/2015, filed into [employer] on 06/09/23 Assessment & Plan (03/03/2023 9:35 AM EST): -next physical exam due after 03/03/2024 -eye care facilitated by -dental home is History of GI bleed 03/03/2023 Overview (04/15/2023): -Hgb on admission 02/09/23 12.9. Baseline -. Hemocult was positive. Pt now back on [...] entresto startd by cardiology 05/2022 -F/u with top printing press operator ANA Smith -furosemide 40 mg started during [...] entresto startd by cardiology 05/2022 -F/u with top printing press operator ANA Smith -furosemide 40 mg started during [...] entresto startd by cardiology 05/2022 -F/u with top printing press operator ANA Smith -Furosemide 40 mg started during [...] entresto startd by cardiology 05/2022 -F/u with top printing press operator ANA Smith -Furosemide 40 mg started during [...] entresto startd by cardiology 05/2022 -F/u with top printing press operator ANA Smith Assessment & Plan (06/03/2022 11:12 [...] entresto startd by cardiology 05/2022 -F/u with top printing press operator ANA Smith Assessment & Plan (05/07/2022 10:43 [...] daily, and amlodipine 2.5mg daily -F/u with top printing press operator ANA Smith -He is overdue for follow [...] (12/24/2022): -Hospitalized for subarachnoid hemorrhage 10/2021 at [facility] after fall in the setting of supratheraputic INR of 16 and heavy alcohol use. He was changed to lovenox but could not tolerate the injections. Back on coumadin with improved INRs. He is also on plavix. ER precautions discussed. Assessment & Plan (10/22/2023 11:16 AM EDT): -Hospitalized for subarachnoid hemorrhage 10/2021 at [facility] after fall in the setting of supratheraputic INR of 16 and heavy alcohol use. He was changed to lovenox but could not tolerate the injections. Back on coumadin with improved INRs. He is also on plavix. ER precautions discussed. Assessment & Plan (06/09/2023 9:36 AM EST): -Hospitalized for subarachnoid hemorrhage 10/2021 at [facility] after fall in the setting of supratheraputic INR of 16 and heavy alcohol use. He was changed to lovenox but could not tolerate the injections. Back on coumadin with improved INRs. He is also on plavix. ER precautions discussed. Assessment & Plan (08/11/2022 7:29 AM EDT): -Hospitalized for subarachnoid hemorrhage 10/2021 at [facility] after fall in the setting of supratheraputic INR of 16 and heavy alcohol use. He was changed to lovenox but could not tolerate the injections. Back on coumadin with improved INRs. He is also on plavix. ER precautions discussed. Assessment & Plan (06/03/2022 11:07 AM EST): -Hospitalized for subarachnoid hemorrhage 10/2021 at [facility] after fall in the setting of supratheraputic INR of 16 and heavy alcohol use. Now on Lovenox and clopidogrel. Assessment & Plan (05/07/2022 10:53 AM EST): Hospitalized for subarachnoid hemorrhage 10/2021 at [facility] after fall in the setting of [...] daily drinking and rum - established with [facility] because insurance no longer accepted by [facility]. -Patient followed at [facility] with Dr. Cristine Deleon DO, [...] daily drinking and rum - established with [facility] because insurance no longer accepted by [facility]. -Patient followed at [facility] with Dr. Cristine Deleon DO, [...] daily drinking and rum - established with [facility] because insurance no longer accepted by [facility]. -Patient followed at [facility] with Dr. Cristine Deleon DO, [...] daily drinking and rum - established with [facility] because insurance no longer accepted by [facility]. -Patient followed at [facility] with Dr. Cristine Deleon DO, [...] daily drinking and rum - established with [facility] because insurance no longer accepted by [facility]. -Patient followed at [facility] with Dr. Cristine Deleon DO, seen 06/09/23 [...] daily drinking and rum - established with [facility] because insurance no longer accepted by [facility]. Assessment & Plan (11/30/2022 8:51 PM EDT): hx of aortic stenosis s/p Aortic valve repair, hx of AF , cardiomyopathy with EF 25-30%, ,hx AAA repair, complete heart block s/p pacemaker,CAD s/P stent INR goal 2.5 to 3.5 -continue to f up with his top printing press operator-next apt w Dr Deleon is on 12/08/2022 - I called cards' office # [phone] and confirmed day and hour and gave [...] daily drinking and rum - Established with [facility] because insurance no longer accepted by [facility]. Assessment & Plan (06/03/2022 11:09 AM [...] ETOH with intracranial bleed. - established with [facility] because insurance no longer accepted by [facility]. Last seen 05/2022 recommending 4 week follow up Assessment & Plan (05/07/2022 10:46 AM EST): Hx [address] 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 No hx CABG. Pacemaker placed for AV radha block. -On Coumadin, managed by [facility]. - established with [facility] because insurance no longer accepted by [facility]. Presence of cardiac pacemaker 03/07/2014 Overview [...] as pharmacomtherapy, [facility] smoking cessation group, and [facility] pharmacy smoking cessation clinic -currently smoke [...] as pharmacomtherapy, [facility] smoking cessation group, and [facility] pharmacy smoking cessation clinic -currently smoke [...] as pharmacomtherapy, [facility] smoking cessation group, and [facility] pharmacy smoking cessation clinic -currently smoke [...] as pharmacomtherapy, [facility] smoking cessation group, and [facility] pharmacy smoking cessation clinic -currently smoke [...] interviewing done. Depressive disorder 09/14/2011 Overview (03/03/2023): [place] [facility]. -Continue with therapist and psychiatrist. Assessment [...] -He has [facility] to [facility] and has varying degrees of engagement in [...] tabs BID 06/09/23 Alcohol Use Disorder Clinic [facility] Support and [facility] televist tolerating the medication. Admits [...] tabs BID 06/09/23 Alcohol Use Disorder Clinic [facility] Support and [facility] televist tolerating the medication. Admits [...] 06/03/2022 Heart failure with reduced ejection fraction 3 06/03/2022 Chest pain 05/08/2022 08/11/2022 Subtherapeutic anticoagulation [...] Encounters Date Type Department Care Team Description 07/14/2024 1:00 PM EDT Office Visit [address] [address] Renny Holloway MD Alcohol use disorder, severe, dependence (CMS/HCC) (Primary Dx); Tobacco dependence 07/14/2024 Travel 07/11/2024 Telephone [facility] [address] [place] [address] Nathalie Hsu MD INR results 07/05/[address] [address] Nathalie Hsu MD Referral 07/05/[address] [address] Hermelinda Hernandez ANP History of prosthetic heart valve 07/04/2024 Anticoagulation - Warfarin Visit [address] [address] Nathalie Hsu MD History of prosthetic heart valve 07/04/2024 Telephone [facility] [address] [place] [address] Nathalie Hsu MD critical lab 07/04/2024 Refill [facility] ADULT DENTAL [address] [place] [address] Panchito Lamas DDS Severe dental caries; Dental root caries; Advanced periodontitis; Excessive attrition of teeth, limited to enamel; Missing teeth, acquired; Dental calculus 07/04/2024 Refill [facility] [address] [place] [address] Nathalie Hsu MD Anemia, unspecified type 07/03/2024 Refill [facility] [address] [place] [address] Nathalie Hsu MD Alcoholic liver disease ([facility]/HCC); Anemia, unspecified type 06/28/2024 Refill [facility] [address] [place] [address] Nathalie Hsu MD Mild intermittent asthma without complication 06/27/2024 Telephone [facility] [address] [place] [address] Nathalie Hsu MD INR results 06/27/2024 Refill [facility] [address] [place] [address] Nathalie Hsu MD Pain; Mild intermittent asthma without complication 06/20/[address] [address] Nathalie Hsu MD critical lab 06/20/2024 Telephone [facility] ADULT DENTAL [address] [place] [address] Bolano medication 06/19/2024 Refill [facility] [address] [place] [address] Nathalie Hsu MD 06/16/2024 Population [facility] Risk Score [facility] () Department [address] [place] [phone] Provider, Population Health Generic 06/13/[address] [address] Nathalie Hsu MD INR/Coumadin Dosing 06/09/2024 1:15 PM EST Telemedicine [address] [address] Renny Holloway MD Alcohol use disorder, severe, dependence (CMS/HCC) (Primary Dx) 06/09/2024 Travel 06/08/2024 9:30 AM EST Office Visit [facility] ADULT DENTAL [address] [place] [address] Panchito Lamas DDS Severe dental caries (Primary Dx); Dental root caries; Advanced periodontitis; Excessive attrition of teeth, limited to enamel; Missing teeth, acquired; Dental calculus 06/06/[address] [address] Nathalie Hsu MD Results 06/02/2024 Refill [facility] [address] [place] [address] Nathalie Hsu MD 05/30/[address] [address] Nathalie Hsu MD CRITICAL RESULT CALL/INR 05/29/[address] [address] Nathalie Hsu MD Alcoholic liver disease ([facility]/HCC) 05/26/2024 Patient Outreach [address] [address] Nathalie Hsu MD Care Coordination ([facility] outreach for SDOH PT-1 and food needs-referral completed /) 05/26/[address] [address] Nathalie Hsu MD PT-1 05/23/[address] [address] Nathalie Hsu MD CRITICAL RESULT CALL 05/16/[address] [address] Nathalie Hsu MD CRITICAL RESULT CALL 05/09/[address] [address] Nathalie Hsu MD Anticoagulation 05/03/2024 1:00 PM EST Office Visit [facility] ADULT DENT[facility] [address] [place] [address] Panchito Lamas DDS Dental abscess (Primary Dx); Dental caries 05/03/[address] [address] Shannan Barrow, KHAI Paperwork/Forms 05/03/[address] [address] Nathalie Hsu MD Alcoholic liver disease ([facility]/HCC) 05/02/[address] [address] Nathalie Hsu MD Anticoagulation 04/25/[address] [address] Nathalie Hsu MD Anticoagulation 04/18/[address] [address] Nathalie Hsu MD Anticoagulation from Last 3 Months Immunizations Name Administration [...] is your housing situation today? I have mmeo camara 06/01/[address] you [...] Sign Reading Time Taken Comments Blood Pressure 129/79 07/14/2024 1:20 PM EDT Pulse 88 07/14/2024 1:20 PM EDT Temperature 36.1 ??C (97 ??F) 07/14/2024 1:20 PM EDT Respiratory Rate 20 07/14/2024 1:20 PM EDT Oxygen Saturation 96% 03/10/2024 10:18 AM EST Inhaled Oxygen Concentration - - Weight 85.3 kg (188 lb 0.2 oz) 07/14/2024 1:20 P M EDT Height 167.6 cm (5' 6 ) 03/10/2024 10:18 AM EST Body Mass Index 30.35 03/10/2024 10:18 AM EST Plan of Treatment Upcoming Encounters Date Type Department Care Team (Late st Contact Info) Description 08/03/2024 8:00 AM EDT Office Visit [facility] ADULT DENTAL [address] [place] [address] Panchito Lamas DDS [address] [place] [address] 08/11/2024 1:15 PM EDT Office Visit [facility] MEDICINE [address] [place] [address] Renny Holloway MD [address] [place] [address] 11/09/2024 1:00 PM EDT Office Visit [facility] OPTOMETRY [address] [place] [address] Seth, Zabrina, OD [address] [place] [address] 01/08/2025 10:00 AM EDT Office Visit [facility] ADULT DENTAL [address] [place] [address] Ulises, Chiquita [address] [place] [address] Health Maintenance Due Date Last Done Comments [...] Date/Time Associated Diagnosis Comments PROTHROMBIN TIME-INR Routine 07/11/2024 PROTHROMBIN TIME-INR Routine 07/04/2024 PROTHROMBIN TIME-INR Routine 06/27/2024 PROTHROMBIN TIME-INR Routine 06/20/2024 PROTHROMBIN TIME-INR Routine 06/13/2024 11:43 AM EDT CASE PRESENTATION, DETAILED AND EXTENSIVE TREATMENT PLANNING Routine 06/08/2024 9:30 AM EST INTRAORAL - COMPLETE SERIES OF RADIOGRAPHIC IMAGES Routine 06/08/2024 9:30 AM EST PERIODIC ORAL EVALUATION - ESTABLISHED PATIENT Routine 06/08/2024 9:30 AM EST 31 O COMPOSITE FILLING Routine 06/08/2024 12:00 AM EST 27 I COMPOSITE FILLING Routine 06/08/2024 12:00 AM EST 13 O COMPOSITE FILLING Routine 06/08/2024 12:00 AM EST 12 B(V) COMPOSITE FILLING Routine 06/08/2024 12:00 AM EST 10 FI COMPOSITE FILLING Routine 06/08/2024 12:00 AM EST 9 MIDL COMPOSITE FILLING Routine 06/08/2024 12:00 AM EST 8 MIDL COMPOSITE FILLING Routine 06/08/2024 12:00 AM EST 7 DIFL COMPOSITE FILLING Routine 06/08/2024 12:00 AM EST 6 DIL COMPOSITE FILLING Routine 06/08/2024 12:00 AM EST 4 DB COMPOSITE FILLING Routine 06/08/2024 12:00 AM EST 28 O AMALGAM FILLING [...] TIME-INR Routine 04/25/2024 PROTHROMBIN TIME-INR Routine 04/18/2024 LAB COLOGUARD?? COLON CANCER SCREEN Routine 12/30/2023 [...] to Health Maintenance Results * Prothrombin Time-INR (07/11/2024) Only the most recent of13 resultswithin the time period is included. INR 2.50 2.50 - 3.50 EXTERNAL LAB Protime EXTERNAL LAB Blood Venous blood specimen / Unknown Nathalie Hsu MD LAB BLOOD ORDERABLES Final Result EXTERNAL LAB * Cologuard?? colon cancer screening (12/30/2023 1:30 AM EDT) Cologuard Result Negative Negative 01/05/20 1:07 AM EDT [employer] (CLIA #:[id number]) Comment: NEGATIVE TEST RESULT. A negative Cologuard [...] screened with both Cologuard and colonoscopy. (Tien Fleming, N Engl J Med 2014;370(14):1286- 1297) The normal value (reference range) for this assay is negative. COLOGUARD RE-SCREENING RECOMMENDATION: Periodic colorectal cancer screening is an important part of preventive healthcare for asymptomatic individuals at average risk for colorectal cancer. ??Following a negative Cologuard result, the [place] [employer] Society and U.S. Multi-Society Task Force screening guidelines recommend a Cologuard re-screening interval of 3 years. References: [place] [employer] Guideline for Colorectal Cancer Screening: https://www.cancer.org/cancer/ukhou-pluynj-lgirov/iwsluoiho-fvmumviif-uxvtijr/ac s-rec ommendations.html.; Honorio DK, Lita NEGRETE, Luba JamesK, Colorectal Cancer Screening: Recommendations for Physicians and Patients from the U.S. Multi-Society Task Force on Colorectal Cancer Screening , Am J Gastroenterology 2017; 112:2940-4736. TEST DESCRIPTION: Composite algorithmic analysis of stool [...] were screened with both Cologuard and colonoscopy. (Imperiale T. et al, N Engl J Med 2014;370(14):5703-5605.) Cologuard may produce a false negative or false positive result (no colorectal cancer or precancerous polyp present at colonoscopy follow up). A negative Cologuard test result does not guarantee the absence of CRC or advanced adenoma (pre-cancer). The current Cologuard screening interval is every 3 years. ([place] [employer] and U.S. Multi-Society Task Force). Cologuard performance data in a 10,000 patient pivotal study using colonoscopy as the reference method can be accessed at the following location: www.[employer]/results. Additional description of the Cologuard test process, warnings and precautions can be found at www.[facility] (SC[facility])rd.[employer]ack. Stool specimen (specimen) Rectal contents / Unknown 12/30/2023 1:30 AM EDT 01/01/2024 3:30 PM EDT Nathalie Hsu MD LAB MOLECULAR DIAGNOSTICS ORDERABLES Final Result [employer] (CLIA #:[id number]) [place] [address], * Hepatitis C Antibody with Reflex to HCV, RNA, Quantitative, Real-Time PCR (08/10/2022 11:24 AM EDT) Hepatitis C Antibody NON-REACT KG NON-REACT KG [employer] Index 0.13 <1.00 [employer] Comment: HCV antibody was non-reactive. There is no laboratory evidence of HCV infection. In most cases, no further action is required. However, if recent HCV exposure is suspected, a test for HCV RNA (test code 68678) is suggested. For additional information please refer to http://education.[facility]/faq/ZXB70q6 (This link is being provided for informational/ educational purposes only.) Blood Venous blood specimen / Unknown 08/10/2022 11:24 AM EDT 08/10/2022 11:25 AM EDT Narrative [facility] - 08/16/2022 12:40 AM EDT FASTING:NO FASTING: NO Nathalie Hsu MD LAB BLOOD ORDERABLES Final Result [facility] [address], [place] [address] [employer] [facility] [address] [place] [address] * HIV-1/2 Antigen and Antibodies, Fourth Generation, with Reflexes (08/10/2022 11:24 AM EDT) Pathologist [facility] HIV Antigen/Antibody, 4th Generation NON-REAC TIVE NON-REAC TIVE [employer] Comment: HIV-1 antigen and HIV-1/HIV-2 antibodies were [...] ?? For additional information please refer to http://education.[employer]/faq/RAW078 (This link is being provided for informational/ educational purposes only.) The performance of this assay has not been clinically validated in patients less than 2 years old. Blood Venous blood specimen / Unknown 08/10/2022 11:24 AM EDT 08/10/2022 11:25 AM EDT Narrative [facility] - 08/16/2022 12:40 AM EDT FASTING:NO FASTING: NO Nathalie Hsu MD LAB BLOOD ORDERABLES Final Result [facility] [address], [place] [address] [employer] [address] [place] [address] * Lipid Panel, Standard (08/10/2022 11:24 AM EDT) Cholesterol, Total 161 <200 mg/dL [employer] HDL Cholesterol 62 > OR = 40 mg/dL [employer] Triglycerides 109 <150 mg/dL [employer] LDL Cholesterol 80 mg/dL (calc) [employer] Comment: Reference range: <100 Desirable range <100 mg/dL for primary prevention; ?? <70 mg/dL for patients with CHD or diabetic patients with > or = 2 CHD risk factors. LDL-C is now calculated using the Gallo calculation, which is a validated novel method providing better accuracy than the Friedewald equation in the estimation of LDL-C. Anthony SS et al. FLAKITA. 2013;310(19): 8813-9122 (http://education.[employer]/faq/HPN190) Chol/HDLC Ratio 2.6 <5.0 (calc) [employer] Non-HDL Cholesterol 99 <130 mg/dL (calc) [employer] Comment: For patients with diabetes plus 1 major ASCVD risk factor, treating to a non-HDL-C goal of <100 mg/dL (LDL-C of <70 mg/dL) is considered a therapeutic option. Blood Venous blood specimen / Unknown 08/10/2022 11:24 AM EDT 08/10/2022 11:25 AM EDT Narrative [facility] - 08/16/2022 12:40 AM EDT FASTING:NO FASTING: NO Nathalie Hsu MD LAB BLOOD ORDERABLES Final Result [facility] [address], [place] [address] [employer] [address] [place] [address] * Hm Colonoscopy (03/05/2012) Colonoscopy Dr. Zhang Tosha Mak MD HEALTH MAINTENANCE Final Result from Last 3 Months or Most Recently Relevant to Health Maintenance Insurance [facility] C3 DENTAL-[facility] MEDICAID STAND ADULT Advance Directives Documents on File Type Date Recorded Patient Senior Paralegal Expl anation Advance Directives and Living Will 06/10/2023 1:14 PM Health Care Proxy Care Teams Professional Healthcare Representative Relationship Specialty Start Date End Date Nathalie Hsu MD [address] [place] [address] PCP - General Family Medicine 09/27/13 Shannan Barrow, RN [address] [place] [address] Registered Nurse 02/29/24 Lisbeth Johnson [address] [place] [address] Drive 3rd [place] [address] Gastroenterology 03/15/24 Tonya Poole Clay MinerCredit Assistant 01/19/24 Raman ([facility]) Registered Nurse 02/29/24 Marcos Verdin MD [place] [facility] [address] [place] [address] Cardiology 03/10/24 Omid Vincent Psychiatry 03/15/24
--- OUTSIDE RECORDS SUMMARY | 2024-07-14 14:08 | XMS_ITS | Encounter Summary ---
Author Organization [employer] Address [address] [facility] [address] 7t [place] [address] Care Team Providers Care Trolley Worker Name Role Phone Nathalie Hsu MD Primary Care Provider +1- [phone] Shannan Barrow RN Unavailable [phone] Lisbeth Johnson Unavailable Reason for Visit * Reason Onset Date Comments Coagulation Disorder 05/12/2023 Encounter Details Date Type Department Care Team (Late st Contact Info) Description 05/12/2023 Telephone [facility] MEDICINE 230 [place], [place] [phone] Nathalie Hsu MD 230 [place], [place] [phone] Coagulation Disorder Social History Tobacco Use Types [...] to report INR. Please contact raman at [phone] documented in this encounter Plan of Treatment Upcoming Encounters Date Type Department Care Team (Late st Contact Info) Description 08/03/2024 8:00 AM EDT Office Visit [facility] ADULT DENTAL [address] [place] [address] Panchito Lamas DDS 230 [place] [address] 08/11/2024 1:15 PM EDT Office Visit [facility] MEDICINE [address] [place] [address] Renny Holloway MD 230 [place] [address] 11/09/2024 1:00 PM EDT Office Visit [facility] OPTOMETRY [address] [place] [address] Zabrina Ann, GEETA 230 [place] [address] 01/08/2025 10:00 AM EDT Office Visit [facility]ULT [facility] [address] [place] [address] Chiquita Montgomery [address] [place], [place] [phone] documented as of this encounter Visit Diagnoses Not on filedocumented in this encounter Additional Health Concerns Assessment Noted Time PHQ-9 Depression Total Score: 6 05/08/19 23 10:33 AM EST documented as of this encounter Care Teams Trolley Worker Relationship Specialty Start Date End Date Nathalie Hsu MD [address] [place], [place] [phone] PCP - General Family Medicine 09/27/13 Shannan Barrow, KHAI [address] [place] [address] [phone] Registered Nurse 02/29/24 Lisbeth Johnson [address] [place] [address] Drive 3rd [place] [address] Gastroenterology 03/15/24 Tonya Poole Retail Loss Prevention SpecialistBrand Strategist 01/19/24 Raman ([facility]) Registered Nurse 02/29/24 Marcos Verdin MD [place] [facility] [address] [place] [address] Cardiology 03/10/24 Omid Vincent Psychiatry 03/15/24 documented as of this encounter
--- OUTSIDE RECORDS SUMMARY | 2024-07-14 14:08 | XMS_ITS | Encounter Summary ---
Author Organization [employer] Address [address] [facility] [address] 7t [place] [address] Care Team Providers Care Oil Burner Repairer Name Role Phone Nathalie Hsu MD Primary Care Provider [phone]- [phone] Shannan Barrow RN Unavailable [phone] Lisbeth Johnson Unavailable Reason for Visit * Reason Comments Med Refill Encounter Details Date Type Department Care Team (Late st Contact Info) Description 02/28/[address] [facility] MEDICINE 230 [place], [place] [phone] Nathalie Hsu MD 230 [place], [place] [phone] Social History Tobacco Use Types Packs/Day Years [...] Description 08/03/2024 8:00 AM EDT Office Visit [facility] ADULT DENTAL 230 [place] [address] Panchito Lamas DDS 230 [place] [address] 08/11/2024 1:15 PM EDT Office Visit [facility] MEDICINE 230 [place] [address] Renny Holloway MD 230 [place] [address] 11/09/2024 1:00 PM EDT Office Visit [facility] OPTOMETRY [address] [place] [address] Seth, Zabrina, OD 230 [place] [address] 01/08/2025 10:00 AM EDT Office Visit [facility] ADULT DENTAL 230 [place] [address] Ulises Chiquita 230 [place] [address] documented as of this encounter Visit Diagnoses Not on filedocumented in this encounter Additional Health Concerns Assessment Noted Time PHQ-9 Depression Total Score: 6 05/08/19 23 10:33 AM EST documented as of this encounter Care Teams Oil Burner Repairer Relationship Specialty Start Date End Date Nathalie Hsu MD 230 [place] [address] PCP - General Family Medicine 09/27/13 Shannan Barrow, RN 230 [place] [address] Registered Nurse 02/29/[address] 3rd [place] [address] Gastroenterology 03/15/24 Tonya Poole Boxing And Pressing SupervisorHelpdesk Administrator 01/19/24 Raman ([facility]) Registered Nurse 02/29/24 Marcos Verdin MD [place] [facility] [address] [place] [address] Cardiology 03/10/24 Omid Vincent Psychiatry 03/15/24 documented as of this encounter
--- OUTSIDE RECORDS SUMMARY | 2024-07-14 14:08 | XMS_ITS | Encounter Summary ---
Author Organization [employer] Address [address] [facility] [address] 7t [place] [address] Care Team Providers Care Clothing Trades Workers Name Role Phone Nathalie Hsu MD Primary Care Provider [phone]- [phone] Shannan Barrow RN Unavailable [phone] Lisbeth Johnson Unavailable Reason for Visit * Reason Comments Med Refill Encounter Details Date Type Department Care Team (Late st Contact Info) Description 02/12/2023 Refill [facility] 230 [place], [place] [phone] Nathalie Hsu MD 230 [place], [place] [phone] Pain Social History Tobacco Use Types Packs/Day [...] 8:00 AM EDT Office Visit [facility] ADULT DENTAL 230 [place] [address] Panchito Lamas DDS [address] [place] [address] 08/11/2024 1:15 PM EDT Office Visit [facility] [address] [place] [address] Renny Holloway MD 230 [place] [address] 11/09/2024 1:00 PM EDT Office Visit [facility] OPTOMETRY [address] [place] [address] Seth, Zabrina, OD 230 [place] [address] 01/08/2025 10:00 AM EDT Office Visit [facility] ADULT DENTAL 230 [place] [address] Ulises Chiquita 230 [place] [address] documented as of this encounter Visit Diagnoses Diagnosis Pain Generalized pain documented in this encounter Additional Health Concerns Assessment Noted Time PHQ-9 Depression Total Score: 6 05/08/19 23 10:33 AM EST documented as of this encounter Care Teams Clothing Trades Workers Relationship Specialty Start Date End Date Nathalie Hsu MD 230 [place] [address] PCP - General Family Medicine 09/27/13 Shannan Barrow, RN 230 [place] [address] Registered Nurse 02/29/[address] 3rd [place] [address] Gastroenterology 03/15/24 Tonya Poole Professional AthleteBmx Rider 01/19/24 Raman ([facility]) Registered Nurse 02/29/24 Marcos Verdin MD [place] [facility] [address] [place] [address] Cardiology 03/10/24 Omid Vincent Psychiatry 03/15/24 documented as of this encounter
--- OUTSIDE RECORDS SUMMARY | 2024-07-14 14:08 | XMS_ITS | Encounter Summary ---
Author Organization [facility] Address [address] [facility] [address] 7t [place] [address] Care Team Providers Care Phys Therapist Name Role Phone Nathalie Hsu MD Primary Care Provider [phone]- [phone] Shannan Barrow RN Unavailable [phone] Lisbeth Johnson Unavailable Encounter Details Date Type Department Care Team (Late st Contact Info) Description 08/11/2023 Telephone [facility] MEDICINE 230 [place], [place] [phone] Nathalie Hsu MD 230 [place], [place] [phone] Social History Tobacco Use Types Packs/Day Years [...] Description 08/03/2024 8:00 AM EDT Office Visit [facility] ADULT DENTAL 230 [place] [address] Panchito Lamas DDS 230 [place] [address] 08/11/2024 1:15 PM EDT Office Visit [facility] MEDICINE [address] [place] [address] Renny Holloway MD 230 [place] [address] 11/09/2024 1:00 PM EDT Office Visit [facility] OPTOMETRY 267 [place] [address] Zabrina Ann, GEETA 230 [place] [address] 01/08/2025 10:00 AM EDT Office Visit [facility] ADULT DENTAL 230 [place] [address] Chiquita Montgomery 230 [place] [address] documented as of this encounter Visit Diagnoses Not on filedocumented in this encounter Additional Health Concerns Assessment Noted Time PHQ-9 Depression Total Score: 0 06/09/19 24 9:13 AM EST documented as of this encounter Care Teams Phys Therapist Relationship Specialty Start Date End Date Nathalie Hsu MD 230 [place] [address] PCP - General Family Medicine 09/27/13 Shannan Barrow, RN 230 [place] [address] Registered Nurse 02/29/24 Lisbeth Johnson [address] [place] [address] 3rd [place] [address] Gastroenterology 03/15/24 Tonya Poole Title Department ManagerSwitchboard And Control Room Operator 01/19/24 Raman ([facility]) Registered Nurse 02/29/24 Marcos Verdin MD [place] [facility] [address] [place] [address] Cardiology 03/10/24 Omid Vincent Psychiatry 03/15/24 documented as of this encounter
--- OUTSIDE RECORDS SUMMARY | 2024-07-14 14:08 | XMS_ITS | Encounter Summary ---
Author Organization [employer] Address [address] 7t [place] [address] Care Team Providers Care Radiological Health Specialist Name Role Phone Nathalie Hsu MD Primary Care Provider [phone]- [phone] Shannan Barrow RN Unavailable [phone] Lisbeth Johnson Unavailable Encounter Details Date Type Department Care Team (Latest Contact Info) Description 07/14/2024 Travel Social History Tobacco Use Types Packs/Day Years [...] Description 08/03/2024 8:00 AM EDT Office Visit [facility] ADULT DENTAL 230 [place] [address] Panchito Lamas DDS 230 [place] [address] 08/11/2024 1:15 PM EDT Office Visit [facility] MEDICINE 230 [place] [address] Renny Holloway MD 230 [place] [address] 11/09/2024 1:00 PM EDT Office Visit [facility] OPTOMETRY 267 [place] [address] SethZabrina funes, OD 230 [place] [address] 01/08/2025 10:00 AM EDT Office Visit [facility] ADULT DENTAL 230 [place] [address] Chiquita Montgomery 230 [place] [address] documented as of this encounter Visit Diagnoses Not on filedocumented in this encounter Additional Health Concerns Assessment Noted Time PHQ-9 Depression Total Score: 0 06/09/19 24 9:13 AM EST documented as of this encounter Care Teams Radiological Health Specialist Relationship Specialty Start Date End Date Nathalie Hsu MD 230 [place] [address] PCP - General Family Medicine 09/27/13 Shannan Barrow, RN 230 [place] [address] Registered Nurse 02/29/24 Lisbeth Johnson [address] [place] [address] 3rd [place] [address] Gastroenterology 03/15/24 Tonya Poole Principal System Software EngineerWeb Weaver 01/19/24 Raman ([facility]) Registered Nurse 02/29/24 Marcos Verdin MD [place] [facility] [address] [place] [address] Cardiology 03/10/24 Omid Vincent Psychiatry 03/15/24 documented as of this encounter
--- OUTSIDE RECORDS SUMMARY | 2024-07-14 14:08 | XMS_ITS | Encounter Summary ---
Author Organization [employer] Address [address] [facility] [address] [facility] [address] [facility] [address] 7t [place] [address] Care Team Providers Care Manager Hospitality Name Role Phone Nathalie Hsu MD Primary Care Provider [phone]- [phone] Shannan Barrow RN Unavailable [phone] Lisbeth Johnson Unavailable Reason for Visit * Reason Comments AUD F/U Encounter Details Date Type Department Care Team (Late st Contact Info) Description 07/14/2024 1:00 PM EDT Office Visit [facility] 230 [place], [place] [phone] Renny Holloway MD 230 [place] [address] Alcohol use disorder, severe, dependence (CMS/HCC) (Primary Dx); Tobacco dependence Social History Tobacco Use Types Packs/Day Years [...] AM EDT documented as of this encounter Last Filed Vital Signs Vital Sign Reading Time Taken Comments Blood Pressure 129/79 07/14/2024 1:20 PM EDT Pulse 88 07/14/2024 1:20 PM EDT Temperature 36.1 ??C (97 ??F) 07/14/2024 1:20 PM EDT Respiratory Rate 20 07/14/2024 1:20 PM EDT Oxygen Saturation - - Inhaled Oxygen Concentration - - Weight 85.3 kg (188 lb 0.2 oz) 07/14/2024 1:20 P M EDT Height - - Body Mass Index 30.35 03/10/2024 10:18 AM EST documented in this encounter Plan of Treatment Upcoming Encounters Date Type Department Care Team (Late st Contact Info) Description 08/03/2024 8:00 AM EDT Office Visit [facility] ADULT DENTAL 230 [place] [address] Panchito Lamas DDS 230 [place] [address] 08/11/2024 1:15 PM EDT Office Visit [facility] 230 [place] [address] Renny Holloway MD 230 [place] [address] 11/09/2024 1:00 PM EDT Office Visit [facility] OPTOMETRY [address] [place] [address] Seth, Zabrina, OD 230 [place] [address] 01/08/2025 10:00 AM EDT Office Visit [facility] ADULT DENTAL 230 [place] [address] Ulises, Chiquita 230 [place] [address] Scheduled Orders Name Type Priority Associated Diagnoses Orde r Schedule Hepatic Function Panel Lab Routine Alcohol use disorder, severe, dependence (CMS/HCC) Expected: 07/14/2024 (Approximate), Expires: 07/14/2025 CBC auto differential Lab Routine Alcohol use disorder, severe, dependence (CMS/HCC) Expected: 07/14/2024 (Approximate), Expires: 07/14/2025 documented as of this encounter Visit Diagnoses Diagnosis Alcohol use disorder, severe, dependence (CMS/HCC)- Primary Tobacco dependence Tobacco use disorder documented in this encounter Additional Health Concerns Assessment Noted Time PHQ-9 Depression Total Score: 0 06/09/19 24 9:13 AM EST documented as of this encounter Care Teams Manager Hospitality Relationship Specialty Start Date End Date Nathalie Hsu MD 230 [place] [address] PCP - General Family Medicine 09/27/13 Shannan Barrow, KHAI [address] [place] [address] Registered Nurse 02/29/24 Lisbeth Johnson [address] [place] [address] 3rd [place] [address] Gastroenterology 03/15/24 Tonya Poole Coal ShovelerPhone Technician 01/19/24 Raman ([facility]) Registered Nurse 02/29/24 Marcos Verdin MD [place] and [facility] [address] [place] [address] Cardiology 03/10/24 Omid Vincent Psychiatry 03/15/24 documented as of this encounter
--- OUTSIDE RECORDS SUMMARY | 2024-07-14 14:08 | XMS_ITS | Encounter Summary ---
Author Organization [employer] Address [address] [facility] [address] 7t [place] [address] Care Team Providers Care Job Press Operator Name Role Phone Nathalie Hsu MD Primary Care Provider [phone]- [phone] Shannan Barrow RN Unavailable [phone] Lisbeth Johnson Unavailable Reason for Visit * Reason Comments Med Refill Encounter Details Date Type Department Care Team (Late st Contact Info) Description 11/01/[address] [facility] [address] [place], [place] [phone] Nathalie Hsu MD 230 [place], [place] [phone] Mild intermittent asthma, unspecified whether complicated Social [...] the past 12 months, has t he [employer] gas, 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 threatened to [...] Visit [facility] ADULT DENTAL 230 [place] [address] Panchito Lamas DDS 230 [place] [address] 08/11/2024 1:15 PM EDT Office Visit [facility] MEDICINE 230 [place] [address] Renny Holloway MD 230 [place] [address] 11/09/2024 1:00 PM EDT Office Visit [facility] OPTOMETRY [address] [place] [address] Zabrina Ann, GEETA 230 [place] [address] 01/08/2025 10:00 AM EDT Office Visit [facility] ADULT DENTAL 230 [place] [address] Chiquita Montgomery 230 [place] [address] documented as of this encounter Visit Diagnoses Diagnosis Mild intermittent asthma, unspecified whether complicated documented in this encounter Additional Health Concerns Assessment Noted Time PHQ-9 Depression Total Score: 0 06/09/19 9:13 AM EST documented as of this encounter Care Teams Job Press Operator Relationship Specialty Start Date End Date Nathalie Hsu MD 230 [place] [address] PCP - General Family Medicine 09/27/13 Shannan Barrow, KHAI 230 [place] [address] Registered Nurse 02/29/24 Lisbeth Johnson [address] [place] [address] 3rd [place] [address] Gastroenterology 03/15/24 Tonya Poole Documentation ClerkAssistant Associate Full Professor 01/19/24 Raman ([facility]) Registered Nurse 02/29/24 Marcos Verdin MD [place] [facility] [address] [place] [address] Cardiology 03/10/24 Omid Vincent Psychiatry 03/15/24 documented as of this encounter
--- OUTSIDE RECORDS SUMMARY | 2024-07-14 14:08 | XMS_ITS | Encounter Summary ---
Author Organization [employer] [facility] Address [address] 7t [place] [address] Care Team Providers Care Resaw Feeder Name Role Phone Nathalie Hsu MD Primary Care Provider [phone]- [phone] Shannan Barrow RN Unavailable [phone] Lisbeth Johnson Unavailable Reason for Visit * Reason Onset Date Comments Results 01/12/2023 INR Encounter Details Date Type Department Care Team (Late st Contact Info) Description 01/12/2023 Telephone [facility] MEDICINE [address] [place] [address] Nathalie Hsu MD 230 [place], [place] [phone] Results (INR) Social History Tobacco Use Types [...] 12:36 PM EDT Tc from [facility] reporting INR results. Please call [phone] documented in this encounter Plan of Treatment Upcoming Encounters Date Type Department Care Team (Late st Contact Info) Description 08/03/2024 8:00 AM EDT Office Visit [facility] ADULT DENTAL [address] [place] [address] Panchito Lamas DDS [address] [place] [address] 08/11/2024 1:15 PM EDT Office Visit [facility] MEDICINE [address] [place] [address] Renny Holloway MD 230 [place] [address] 11/09/2024 1:00 PM EDT Office Visit [facility] OPTOMETRY [address] [place] [address] Zabrina Ann, GEETA 230 [place] [address] 01/08/2025 10:00 AM EDT Office Visit [facility] ADULT DENTAL [address] [place] [address] Chiquita Montgomery 230 [place] [address] documented as of this encounter Visit Diagnoses Not on filedocumented in this encounter Additional Health Concerns Assessment Noted Time PHQ-9 Depression Total Score: 6 05/08/19 23 10:33 AM EST documented as of this encounter Care Teams Resaw Feeder Relationship Specialty Start Date End Date Nathalie Hsu MD 230 [place] [address] PCP - General Family Medicine 09/27/13 Shannan Barrow, KHAI 230 [place] [address] Registered Nurse 02/29/24 Lisbeth Johnson [address] [place] [address] 3rd [place] [address] Gastroenterology 03/15/24 Tonya Poole Textile Machinery Sales RepresentativeTermite Technician 01/19/24 Raman ([facility]) Registered Nurse 02/29/24 Marcos Verdin MD [place] [facility] [address] [place] [address] Cardiology 03/10/24 Omid Vincent Psychiatry 03/15/24 documented as of this encounter
--- OUTSIDE RECORDS SUMMARY | 2024-07-14 14:08 | XMS_ITS | Encounter Summary ---
Author Organization [employer] Address [address] [facility] [address] 7t [place] [address] Care Team Providers Care Car Shakeout Operator Name Role Phone Nathalie Hsu MD Primary Care Provider [phone]- [phone] Shannan Barrow RN Unavailable [phone] Lisbeth Johnson Unavailable Reason for Visit * Reason Onset Date Comments INR report 03/31/2023 Encounter Details Date Type Department Care Team (Late st Contact Info) Description 03/31/2023 Telephone [facility] MEDICINE 230 [place], [place] [phone] Nathalie Hsu MD 230 [place], [place] [phone] INR report Social History Tobacco Use Types [...] PM EST Tc from Raman VALE with [employer] requesting a call from a nurse to report an INR results. Please contact Raman @ [phone] documented in this encounter Plan of Treatment Upcoming Encounters Date Type Department Care Team (Late st Contact Info) Description 08/03/2024 8:00 AM EDT Office Visit [facility] ADULT DENTAL 230 [place] [address] Panchito Lamas DDS [address] [place] [address] 08/11/2024 1:15 PM EDT Office Visit [facility] MEDICINE 230 [place] [address] Renny Holloway MD 230 [place] [address] 11/09/2024 1:00 PM EDT Office Visit [facility] OPTOMETRY [address] [place] [address] Zabrina Ann, GEETA 230 [place] [address] 01/08/2025 10:00 AM EDT Office Visit [facility] ADULT DENTAL 230 [place] [address] Ulises, Chiquita 230 [place], [place] [phone] documented as of this encounter Visit Diagnoses Not on filedocumented in this encounter Additional Health Concerns Assessment Noted Time PHQ-9 Depression Total Score: 6 05/08/19 23 10:33 AM EST documented as of this encounter Care Teams Car Shakeout Operator Relationship Specialty Start Date End Date Nathalie Hsu MD 230 [place] [address] PCP - General Family Medicine 09/27/13 Shannan Barrow, KHAI [address] [place] [address] [phone] Registered Nurse 02/29/24 Lisbeth Johnson [address] [place] [address] 3rd [place] [address] Gastroenterology 03/15/24 Tonya Poole Jewish History ProfessorBelt Turner 01/19/24 Raman ([facility]) Registered Nurse 02/29/24 Marcos Verdin MD [place] [facility] [address] [place] [address] Cardiology 03/10/24 Omid Vincent Psychiatry 03/15/24 documented as of this encounter
--- OUTSIDE RECORDS SUMMARY | 2024-07-14 14:08 | XMS_ITS | Encounter Summary ---
Author Organization [employer] Address [address] [facility] [address] 7t [place] [address] Care Team Providers Care Tag Marker Name Role Phone Nathalie Hsu MD Primary Care Provider [phone]- [phone] Shannan Barrow RN Unavailable [phone] Lisbeth Johnson Unavailable Encounter Details Date Type Department Care Team (Late st Contact Info) Description 05/12/2023 Orders Only [facility] MEDICINE 230 [place], [place] [phone] Nathalie Hsu MD 230 [place], [place] [phone] Social History Tobacco Use Types Packs/Day Years [...] Description 08/03/2024 8:00 AM EDT Office Visit [facility] ADULT DENTAL 230 [place] [address] Panchito Lamas DDS [address] [place] [address] 08/11/2024 1:15 PM EDT Office Visit [facility] MEDICINE [address] [place] [address] Renny Holloway MD 230 [place] [address] 11/09/2024 1:00 PM EDT Office Visit [facility] OPTOMETRY [address] [place] [address] Zabrina Ann, GEETA 230 [place] [address] 01/08/2025 10:00 AM EDT Office Visit [facility] ADULT DENTAL 230 [place] [address] Chiquita Montogmery 230 [place] [address] documented as of this encounter Visit Diagnoses Not on filedocumented in this encounter Additional Health Concerns Assessment Noted Time PHQ-9 Depression Total Score: 6 05/08/19 23 10:33 AM EST documented as of this encounter Care Teams Tag Marker Relationship Specialty Start Date End Date Nathalie Hsu MD 230 [place] [address] PCP - General Family Medicine 09/27/13 Shannan Barrow, RN 230 [place] [address] Registered Nurse 02/29/24 Lisbeth Johnson [address] [place] [address] 3rd [place] [address] Gastroenterology 03/15/24 Tonya Poole Mine PatrolWool Cleaner 01/19/24 Raman ([facility]) Registered Nurse 02/29/24 Marcos Verdin MD [place] [facility] [address] [place] [address] Cardiology 03/10/24 Omid Vincent Psychiatry 03/15/24 documented as of this encounter
--- OUTSIDE RECORDS SUMMARY | 2024-07-14 14:08 | XMS_ITS | Encounter Summary ---
Author Organization [employer] Address [address] 7t [place] [address] Care Team Providers Care Shim Plug Cutter Name Role Phone Nathalie Hsu MD Primary Care Provider [phone]- [phone] Shannan Barrow RN Unavailable [phone] Lisbeth Johnson Unavailable Reason for Visit * Reason Onset Date Comments INR results 07/11/2024 Encounter Details Date Type Department Care Team (Late st Contact Info) Description 07/11/2024 Telephone [facility] [address] [place] [address] Nathalie Hsu MD [address] [place], [place] [phone] INR results Social History Tobacco Use Types Packs/Day Years [...] Telephone Encounter - Shannan Barrow RN - 07/11/2024 3:43 PM EDT S: Pt is due for PT/INR today due to hx of DVT's. Pt's target INR is 2.5-3.5. This RN spoke with VNA Sherin who denies any new medications or changes in diet. However, Sherin was on vacation and every time pt has different VNA while Sherin is off, we have noticed a trend where his INR drops. Pt has been compliant with INR draws. O: INR today is: 2.5. Pt current dose is 2.5mg Tu,Fr, Sa/ 5mg the rest of the week A: Hx of DVT Risk for blood clot due to sub therapeutic INR Hx of afib Hx of prosthetic heart valve P: Pt is to take 2.5mg Tu, Th, Sa/ 5mg the rest of the week and recheck INR 07/18/24. VNA aware of dosing and draw date. Shannan Barrow RN * Telephone Encounter - Ioana Loomis RN - 07/11/2024 3:13 PM EDT Incoming call from KAVIN Duff RN . Sherin stated the pt's INR is 2.5 today . Sherin requests a call back . A warm hand off call was placed to Shannan RIDLEY , [facility]orraine team nurses to report the INR to Dr. Hsu . Will route this message to the lorraine team nurses for review . TY. documented in this encounter Plan of Treatment Upcoming Encounters Date Type Department Care Team (Late st Contact Info) Description 08/03/2024 8:00 AM EDT Office Visit [facility] [address] [place] [address] Panchito Lamas DDS [address] [place] [address] 08/11/2024 1:15 PM EDT Office Visit [facility] [address] [place] [address] Renny Holloway MD [address] [place] [address] 11/09/2024 1:00 PM EDT Office Visit [facility] [address] [place] [address] Zabrina Ann, GEETA 230 [place] [address] 01/08/2025 10:00 AM EDT Office Visit [facility] [address] [place] [address] Chiquita Montgomery [address] [place] [address] documented as of this encounter Procedures Procedure Name Priority Date/Time Associated Diagnosis Comments PROTHROMBIN TIME-INR Routine 07/11/2024 documented in this encounter Results * Prothrombin Time-INR (07/11/2024) INR 2.50 2.50 - 3.50 EXTERNAL LAB [...] documented as of this encounter Care Teams Shim Plug Cutter Relationship Specialty Start Date End Date Nathalie Hsu MD [address] [place] [address] PCP - General Family Medicine 09/27/13 Shannan Barrow, KHAI [address] [place] [address] Registered Nurse 02/29/24 Lisbeth Johnson [address] [place] [address] 3rd [place] [address] Gastroenterology 03/15/24 Tonya Poole Press CutterElectronic Design Engineer 01/19/24 Raman (A S) Registered Nurse 02/29/24 Marcos Verdin MD [facility] [address] [place] [address] Cardiology 03/10/24 Omid Vincent Psychiatry 03/15/24 documented as of this encounter
--- OUTSIDE RECORDS SUMMARY | 2024-07-14 14:08 | XMS_ITS | Encounter Summary ---
Author Organization [employer] Address [address] 7t [place] [address] Care Team Providers Care Pacs Administrator Name Role Phone Nathalie Hsu MD Primary Care Provider [phone]- [phone] Shannan Barrow RN Unavailable [phone] Lisbeth Johnson Unavailable Encounter Details Date Type Department Care Team (Late st Contact Info) Description 05/12/2022 Abstract [facility] [address] [place] [address] Nathalie Hsu MD 230 [place] [address] Social History Tobacco Use Types Packs/Day Years [...] Department Care Team (Late Contact Info) Description 08/03/2024 8:00 AM EDT Office Visit [facility] [address] [place] [address] Panchito Lamas, DDS [address] [place] [address] 08/11/2024 1:15 PM EDT Office Visit [facility] [address] [place] [address] Renny Holloway MD 230 [place] [address] 11/09/2024 1:00 PM EDT Office Visit [facility] [address] [place] [address] Zabrina Ann, OD 230 [place] [address] 01/08/2025 10:00 AM EDT Office Visit [facility] [address] [place] [address] Ulises, Chiquita [address] [place] [address] documented as of this encounter Procedures Procedure [...] documented as of this encounter Care Teams Pacs Administrator Relationship Specialty Start Date End Date Nathalie Hsu MD [address] [place] [address] PCP - General Family Medicine 09/27/13 Shannan Barrow, KHAI [address] [place] [address] Registered Nurse 02/29/24 Lisbeth Johnson [address] 3rd [place] [address] Gastroenterology 03/15/24 Tonya Poole Supervisor Compounding And FinishingNewspaper Managing Editor 01/19/24 Raman ([facility]) Registered Nurse 02/29/24 Marcos Verdin MD [facility] [address] [place] [address] Cardiology 03/10/24 Omid Vincent Psychiatry 03/15/24 documented as of this encounter
--- OUTSIDE RECORDS SUMMARY | 2024-07-14 14:08 | XMS_ITS | Encounter Summary ---
Author Organization [employer] Address [address] 7t [place] [address] Care Team Providers Care Golf Course Laborer Name Role Phone Nathalie Hsu MD Primary Care Provider [phone] Shannan Barrow RN Unavailable [phone] Lisbeth Johnson Unavailable Reason for Visit * Reason Onset Date Comments Med Refill 03/09/2024 Encounter Details Date Type Department Care Team (Late st Contact Info) Description 03/09/2024 Telephone [facility] [address] [place], [place] [phone] Nathalie Hsu MD 230 [place], [place] [phone] Med Refill Social History Tobacco Use Types [...] 9:13 AM EST Medication was sent to [facility] on 12/13/23 #60 with 3 refills. * Telephone Encounter - Alf Avilez - 03/09/2024 9:07 AM EST TC from pt requesting medication refill. Medications needing refill : melatonin 5 MG tablet To be sent to: [facility] documented in this encounter Plan of Treatment Upcoming Encounters Date Type Department Care Team (Late st Contact Info) Description 08/03/2024 8:00 AM EDT Office Visit [facility] [address] [place] [address] Panchito Lamas DDS [address] [place] [address] 08/11/2024 1:15 PM EDT Office Visit [facility] [address] [place] [address] Renny Holloway MD [address] [place] [address] 11/09/2024 1:00 PM EDT Office Visit [facility] [address] [place] [address] SethZabrina funes, OD [address] [place] [address] 01/08/2025 10:00 AM EDT Office Visit [facility] [address] [place] [address] Ulises Chiquita [address] [place] [address] documented as of this encounter Visit Diagnoses Not on filedocumented in this encounter Additional Health Concerns Assessment Noted Time PHQ-9 Depression Total Score: 0 06/09/19 24 9:13 AM EST documented as of this encounter Care Teams Golf Course Laborer Relationship Specialty Start Date End Date Nathalie Hsu MD [address] [place] [address] PCP - General Family Medicine 09/27/13 Shannan Barrow, RN [address] [place] [address] Registered Nurse 02/29/[address] 3rd [place] [address] Gastroenterology 03/15/24 Tonya Poole Kayaking InstructorAtm Technician 01/19/24 Raman (A S) Registered Nurse 02/29/24 Marcos Verdin MD [facility] [address] [place] [address] Cardiology 03/10/24 Omid Vincent Psychiatry 03/15/24 documented as of this encounter
--- OUTSIDE RECORDS SUMMARY | 2024-07-14 14:08 | XMS_ITS | Encounter Summary ---
Author Organization [employer] Address [address] 7t [place] [address] Care Team Providers Care Electrical Power Engineer Name Role Phone Nathalie Hsu MD Primary Care Provider [phone]- [phone] Shannan Barrow RN Unavailable [phone] Lisbeth Johnson Unavailable Reason for Visit * Reason Onset Date Comments Med Refill 07/01/2023 Encounter Details Date Type Department Care Team (Late st Contact Info) Description 07/01/2023 Telephone [facility] [address] [place], [place] [phone] Nathalie Hsu MD 230 [place], [place] [phone] Med Refill Social History Tobacco Use Types [...] the past 12 months, has t he [employer], gas, oil or water [employer] threatened to shut off services in your [...] 9:11 AM EDT Medication was sent to [facility] on 03/03/23 90 day supply with 1 refill. * Telephone Encounter - Amie Ramsey - 07/01/2023 9:06 AM EDT TC from pt requesting medication refill. Medications needing refill : pantoprazole (ProtoNix) 40 MG EC tablet To be sent to: [facility] - [place], [place] - [address] [facility] 230 [facility] [phone] documented in this encounter Plan of Treatment Upcoming Encounters Date Type Department Care Team (Late st Contact Info) Description 08/03/2024 8:00 AM EDT Office Visit [facility] [address] [place] [address] Panchito Lamas DDS [address] [place] [address] 08/11/2024 1:15 PM EDT Office Visit [facility] [address] [place] [address] Renny Holloway MD [address] [place] [address] 11/09/2024 1:00 PM EDT Office Visit [facility] [address] [place] [address] Seth, Zabrina, OD 230 [place] [address] 01/08/2025 10:00 AM EDT Office Visit [facility] [address] [place] [address] Ulises, Chiquita [address] [place] [address] documented as of this encounter Visit Diagnoses Not on filedocumented in this encounter Additional Health Concerns Assessment Noted Time PHQ-9 Depression Total Score: 0 06/09/19 24 9:13 AM EST documented as of this encounter Care Teams Electrical Power Engineer Relationship Specialty Start Date End Date Nathalie Hsu MD [address] [place] [address] PCP - General Family Medicine 09/27/13 Shannan Barrow, RN [address] [place] [address] Registered Nurse 02/29/24 Lisbeth Johnson [address] [place] [address] Drive 3rd [place] [address] Gastroenterology 03/15/24 Tonya Poole Bioinformatics TechnicianRam Car Operator 01/19/24 Raman ([facility]) Registered Nurse 02/29/24 Marcos Verdin MD [place] [facility] [address] [place] [address] Cardiology 03/10/24 Omid Vincent Psychiatry 03/15/24 documented as of this encounter
--- OUTSIDE RECORDS SUMMARY | 2024-07-14 14:08 | XMS_ITS | Encounter Summary ---
Author Organization [facility] Address [address] 7t [place] [address] Care Team Providers Care Pin Drafting Machine Tender Name Role Phone Nathalie Hsu MD Primary Care Provider [phone] Shannan Barrow RN Unavailable [phone] Lisbeth Johnson Unavailable Encounter Details Date Type Department Care Team (Late st Contact Info) Description 04/01/2022 Orders Only [facility] [address] [place] [address] [phone] Anabell Weston, KHAI Social History Tobacco Use [...] 8:00 AM EDT Office Visit [facility] [address] [place] [phone] Panchito Lamas DDS [address] [place], [place] [phone] 08/11/2024 1:15 PM EDT Office Visit [facility] [address] [place] [address] Renny Holloway MD 230 [place], [place] [phone] 11/09/2024 1:00 PM EDT Office Visit [facility] [address] [place] [address] Zabrina Ann, OD 230 [place] [address] 01/08/2025 10:00 AM EDT Office Visit [facility] [address] [place] [address] Ulises, Chiquita 230 [place] [address] documented as of this encounter Visit Diagnoses Not on filedocumented in this encounter Care Teams Pin Drafting Machine Tender Relationship Specialty Start Date End Date Nathalie Hsu MD [address] [place] [address] PCP - General Family Medicine 09/27/13 Shannan Barrow, KHAI [address] [place] [address] Registered Nurse 02/29/24 Lisbeth Johnson [address] [place] [address] Drive 3rd [place] [address] Gastroenterology 03/15/24 Tonya Poole Cancer Genetics AssistantShingle Sawyer 01/19/24 Raman ([facility]) Registered Nurse 02/29/24 Marcos Verdin MD [facility] [address] [place] [address] Cardiology 03/10/24 Omid Vincent Psychiatry 03/15/24 documented as of this encounter
[2024-07-14 16:02] LABS: MANUAL DIFF FLAG NO
[2024-07-14 16:12] LABS: Basophils Absolute Auto 0.1 X10*3/uL (0.0-0.2); Eosinophils Absolute Auto 0.2 X10*3/uL (0.0-0.4); Eosinophils Percent Auto 2.4 % (0-4); Hematocrit 41.7 % (42.0-52.0); Hematocrit 42.4 % (42.0-52.0); Hemoglobin 14.3 g/dl (14.0-18.0); Imm Gran Abs Auto 0.06 X10*3/uL (0.00-0.03); Imm Gran Pct Auto 0.7 % (0.0-0.4); Lymphocytes Absolute Auto 2.9 X10*3/uL (1.2-4.9); Lymphocytes Percent Auto 31.8 % (20-40); Mean Corpuscular HGB Conc 33.7 g/dl (31.0-36.0); Mean Corpuscular HGB Conc 34.3 g/dl (31.0-36.0); Mean Corpuscular Hemoglobin 30.9 pg (27.0-33.0); Mean Corpuscular Hemoglobin 31.2 pg (27.0-33.0); Mean Corpuscular Volume 90.8 fL (80.0-98.0); Mean Corpuscular Volume 91.6 fL (80.0-98.0); Mean Platelet Volume 9.1 fL (9.4-12.4); Mean Platelet Volume 9.5 fL (9.4-12.4); Monocytes Absolute Auto 0.7 X10*3/uL (0.1-1.2); Monocytes Percent Auto 7.7 % (2-11); Neutrophils Absolute Auto 5.1 x10*3/uL (2.0-8.3); Neutrophils Percent Auto 56.4 % (45-73); Platelet Count 246 X10*3/uL (160-400); Platelet Count 258 X10*3/uL (160-400); Red Blood Count 4.59 X10*6/uL (4.60-5.80); Red Blood Count 4.63 X10*6/uL (4.60-5.80); Red Cell Distribution Width 13.9 % (11.0-16.0); Red Cell Distribution Width 14.1 % (11.0-16.0); White Blood Count 9.1 X10*3/uL (4.8-10.8)
[2024-07-14 16:16] LABS: INTERNATIONAL NORM RATIO 1.9 (0.9-1.1); Prothrombin Time 22.7 SEC (10.9-12.4)
[2024-07-14 16:28] LABS: Alanine Aminotransferase 37 U/L (0-40); Alkaline Phosphatase 131 U/L (39-117); Anion Gap 10 (12-20); Aspartate Amino Transferase 31 U/L (5-37); Bilirubin Direct 0.3 mg/dL (0.0-0.5); Bilirubin Total 0.6 mg/dL (0.0-1.0); Blood Urea Nitrogen 17 mg/dL (9-16); Carbon Dioxide 21 mmol/L (22-29); Chloride 112 mmol/L (96-108); Estimated Glomerular Filt Rate > 60; Glucose Random 93 mg/dL (60-115); Potassium 3.8 mmol/L (3.3-5.1); Sodium 139 mmol/L (135-145); Total Protein 7.8 g/dL (6.5-8.0)
== END 2024-07-14 13:46 | disposition home or self-care (01) ==
LOC: HO.HHCL 13:45
PROVIDERS: Family Medicine; Internal Medicine; Visit Provider Family Medicine
DX: F10.20 Alcohol dependence, uncomplicated (principal); K72.90 Hepatic failure, unspecified without coma; K74.60 Unspecified cirrhosis of liver
CPT/HCPCS: 36415; 80053; 80076; 82248; 85025; 85027; 85610

== ENCOUNTER 2024-07-18 00:44 | Emergency (ER) | payer MEDICAID, SELFPAY ==
[2024-07-18 00:52] VITALS: BP 103/66; PULSE 108; O2SAT 95; BMI 31.6
[2024-07-18 01:19] VITALS: BP 101/61; PULSE 99; RESP 16; TEMP 37.3; O2SAT 95
--- OUTSIDE RECORDS SUMMARY | 2024-07-18 03:02 | XMS_ITS | Encounter Summary ---
Author Organization [employer] Address [address] 7t [place] [address] Care Team Providers Care Jr. Systems Administrator Name Role Phone Nathalie Hsu MD Primary Care Provider [phone] Shannan Barrow RN Unavailable [phone] Lisbeth Johnson Unavailable Reason for Visit * Reason Comments Med Refill Encounter Details Date Type Department Care Team (Late st Contact Info) Description 03/30/2024 Refill [facility] [address] [place], [place] [phone] Nathalie Hsu MD 230 [place], [place] [phone] History of alcohol abuse; Hypomagnesemia; Mild intermittent [...] Description 08/03/2024 8:00 AM EDT Office Visit [facility] [address] [place] [address] Panchito Lamas DDS [address] [place] [address] 08/11/2024 1:15 PM EDT Office Visit [facility] [address] [place] [address] Renny Holloway MD 230 [place] [address] 11/09/2024 1:00 PM EDT Office Visit [facility] [address] [place] [address] Zabrina Ann, GEETA 230 [place] [address] 01/08/2025 10:00 AM EDT Office Visit [facility] 230 [place] [address] Chiquita Montgomery 230 [place] [address] documented as of this encounter Visit Diagnoses Diagnosis History of alcohol abuse Nondependent alcohol abuse, in remission Hypomagnesemia Disorders of magnesium metabolism Mild intermittent asthma, unspecified whether complicated documented in this encounter Additional Health Concerns Assessment Noted Time PHQ-9 Depression Total Score: 0 06/09/19 24 9:13 AM EST documented as of this encounter Care Teams Jr. Systems Administrator Relationship Specialty Start Date End Date Nathalie Hsu MD 230 [place] [address] PCP - General Family Medicine 09/27/13 Shannan Barrow, KHAI [address] [place] [address] Registered Nurse 02/29/24 Lisbeth Johnson [address] [place] [address] Drive 3rd [place] [address] Gastroenterology 03/15/24 Tonya Poole Cleat FeederHollow Ware Maker 01/19/24 Raman ([facility]) Registered Nurse 02/29/24 Marcos Verdin MD [place] [facility] [address] [place] [address] Cardiology 03/10/24 Omid Vincent Psychiatry 03/15/24 documented as of this encounter
--- OUTSIDE RECORDS SUMMARY | 2024-07-18 03:02 | XMS_ITS | Encounter Summary ---
Author Organization [employer] Address [address] 7t [place] [address] Care Team Providers Care College Scouting Coordinator Name Role Phone Nathalie Hsu MD Primary Care Provider [phone] Shannan Barrow RN Unavailable [phone] Lisbeth Johnson Unavailable Reason for Visit * Reason Onset Date Comments Med Refill 07/01/2023 Encounter Details Date Type Department Care Team (Late st Contact Info) Description 07/01/2023 Telephone [facility] [address] [place], [place] [phone] Nathalie Hsu MD [address] [place], [place] [phone] Med Refill Social History Tobacco Use Types [...] the past 12 months, has t he [employer], gas, oil or water [employer] threatened to shut off services in your [...] 9:11 AM EDT Medication was sent to [facility] on 03/03/23 90 day supply with 1 refill. * Telephone Encounter - Amie Ramsey - 07/01/2023 9:06 AM EDT TC from pt requesting medication refill. Medications needing refill : pantoprazole (ProtoNix) 40 MG EC tablet To be sent to: [facility] - [place], [place] - 230 [facility] 230 [facility] [phone] documented in this encounter Plan of Treatment Upcoming Encounters Date Type Department Care Team (Late st Contact Info) Description 08/03/2024 8:00 AM EDT Office Visit [facility] [address] [place] [address] Panchito Lamas DDS [address] [place] [address] 08/11/2024 1:15 PM EDT Office Visit [facility] [address] [place] [address] Renny Holloway MD [address] [place] [address] 11/09/2024 1:00 PM EDT Office Visit [facility] [address] [place] [address] Seth, Zabrina, OD 230 [place] [address] 01/08/2025 10:00 AM EDT Office Visit [facility] [address] [place] [address] Ulises, Chiquita [address] [place] [address] documented as of this encounter Visit Diagnoses Not on filedocumented in this encounter Additional Health Concerns Assessment Noted Time PHQ-9 Depression Total Score: 0 06/09/19 24 9:13 AM EST documented as of this encounter Care Teams College Scouting Coordinator Relationship Specialty Start Date End Date Nathalie Hsu MD [address] [place] [address] PCP - General Family Medicine 09/27/13 Shannan Barrow, RN [address] [place] [address] Registered Nurse 02/29/24 Lisbeth Johnson [address] [place] [address] Drive 3rd [place] [address] Gastroenterology 03/15/24 Tonya Poole Finished Hardware ErectorStock Sorter 01/19/24 Raman ([facility]) Registered Nurse 02/29/24 Marcos Verdin MD [facility] [address] [place] [address] Cardiology 03/10/24 Omid Vincent Psychiatry 03/15/24 documented as of this encounter
--- OUTSIDE RECORDS SUMMARY | 2024-07-18 03:02 | XMS_ITS | Encounter Summary ---
Author Organization [email or web address] Address [address] 7t [place] [address] Care Team Providers Care Knife Cutter Name Role Phone Nathalie Hsu MD Primary Care Provider [phone]- [phone] Shannan Barrow RN Unavailable Lisbeth Johnson Unavailable Encounter Details Date Type Department Care Team (Late st Contact Info) Description 07/14/2024 Orders Only GENERIC EXTERNAL DATA DEPARTMENT Provider, Generic External Data Social History Tobacco Use Types Packs/Day Years [...] Visit [facility]ULT D[facility] [address] [place] [address] Panchito Lamas DDS [address] [place] [address] 08/11/2024 1:15 PM EDT Office Visit [facility] MEDICINE [address] [place] [address] Renny Holloway MD [address] [place] [address] 11/09/2024 1:00 PM EDT Office Visit [facility] OPTOMETRY [address] [place] [address] Zabrina Ann OD [address] [place] [address] 01/08/2025 10:00 AM EDT Office Visit [facility] ADULT DENTAL [address] [place] [address] Chiquita Montgomery [address] [place] [address] documented as of this encounter Procedures Procedure Name Priority Date/Time Associated Diagnosis Comments PROTHROMBIN TIME-INR Routine 07/14/2024 1:49 PM EDT CBC Routine 07/14/2024 1:49 PM EDT COMPREHENSIVE METABOLIC PANEL Routine 07/14/2024 1:49 PM EDT documented in this encounter Results * (ABNORMAL) Comprehensive Metabolic Panel (07/14/2024 1:49 PM EDT) Sodium 139 135 - 145 mmol/L [facility] Potassium 3.8 3.3 - 5.1 mmol/L [facility] Chloride 112(H) 96 - 108 mmol/L [facility] Carbon Dioxide 21(L) 22 - 29 mmol/L [facility] Anion Gap 10(L) 12 - 20 [facility] Urea Nitrogen (BUN) 17(H) 9 - 16 mg/dL [facility] Creatinine, Serum 1.01 0.5 - 1.4 mg/dL [facility] Estimated Glomerular Filt Rate >60 [facility] Comment:Chronic Kidney Disea se: Estimated GFR < 60 mL/min/1.85t4Oklvpw Kidney Disease: Estimated GFR < 15 mL/min/1.73m2 Glucose 93 60 - 115 mg/dL [facility] Calcium 9.0 8.4 - 10.2 mg/dL [facility] Bilirubin, Total 0.6 0.0 - 1.0 mg/dL [facility] Aspartate Amino Transferase 31 5 - 37 U/L [facility] Alanine Aminotransferase 37 0 - 40 U/L [facility] Total Protein 7.8 6.5 - 8.0 g/dL [facility] Albumin Level 4.0 3.5 - 5.0 g/dL [facility] Alkaline Phosphatase 131(H) 39 - 117 U/L [facility] 07/14/2024 1:49 PM EDT 07/14/2024 3:58 PM EDT Generic External Data Provider LAB BLOOD ORDERAB LES Final Result Performing Organization Address [facility]/ZIP Co de Phone Number [facility] [address] [place] [phone] * (ABNORMAL) Prothrombin Time-INR (07/14/2024 1:49 PM EDT) Pathologist [facility] Prothrombin Time 22.7(H) 10.9 - 12.4 SEC [facility] INTERNATIONAL NORM RATIO 1.9(H) 0.9 - 1.1 [facility] Comment:INTERNATIONAL NORMAL IZED RATIO (INR) REFERENCE RANGES Reference RangeFor patients not on anticoagulant therapy: 0.9 - 1.1INR ranges for oral anticoagulanttherapy:For prevention and treatment of venous thrombosis and pulmonary embolism: 2.0 - 3.0For acute myocardial infarction with aspirin therapy: 2.0 - 3.0For acute myocardial infarction without aspirin therapy: 3.0 - 4.0For patients with mechanical prosthetic heart valves: 2.5 - 3.5 07/14/2024 1:49 PM EDT 07/14/2024 3:58 PM EDT Generic External Data Provider LAB BLOOD ORDERAB LES Final Result Performing Organization Address [facility] Co de Phone Number [facility] [address] [place] [phone] * CBC (07/14/2024 1:49 PM EDT) Pathologist [facility] White Blood Count 9.0 4.8 - 10.8 X10*3/uL [facility] Red Blood Count 4.63 4.60 - 5.80 X10*6/uL [facility] Hemoglobin 14.3 14.0 - 18.0 g/dl [facility] Hematocrit 42.4 42.0 - 52.0 % [facility] Mean Corpuscular Volume 91.6 80.0 - 98.0 fL [facility] Mean Corpuscular Hemoglobin 30.9 27.0 - 33.0 pg [facility] Mean Corpuscular HGB Conc 33.7 31.0 - 36.0 g/dl [facility] Red Cell Distribution Width 13.9 11.0 - 16.0 % [facility] Platelet Count 258 160 - 400 X10*3/uL [facility] Mean Platelet Volume 9.5 9.4 - 12.4 fL [facility] NRBC Pct Auto 0.0 0.0 - 0.2 /100WBC [facility] NRBC Abs Auto 0.000 0.0 - 0.012 X10*3/uL [facility] 07/14/2024 1:49 PM EDT 07/14/2024 3:58 PM EDT us Generic External Data Provider LAB BLOOD ORDERAB LES Final Result [facility] [address] [place] [address] [phone] documented in this encounter Visit Diagnoses Not on filedocumented in this encounter Additional Health Concerns Assessment Noted Time PHQ-9 Depression Total Score: 0 06/09/19 24 9:13 AM EST documented as of this encounter Care Teams Knife Cutter Relationship Specialty Start Date End Date Nathalie Hsu MD [address] [place] [address] PCP - General Family Medicine 09/27/13 Shannan Barrow, KHAI [address] [place] [address] Registered Nurse 02/29/24 Lisbeth Johnson [address] 3rd [place] [address] Gastroenterology 03/15/24 Tonya Poole District Commercial SuperintendentOperator Assistant I Cementing 01/19/24 Raman (A [facility]) Registered Nurse 02/29/24 Marcos Verdin MD [place] [facility] [address] [place] [address] Cardiology 03/10/24 Omid Vincent Psychiatry 03/15/24 documented as of this encounter
--- OUTSIDE RECORDS SUMMARY | 2024-07-18 03:02 | XMS_ITS | Encounter Summary ---
Author Organization [employer] Address [address] 7[address] [place] [address] Care Team Providers Care Quality Facilitator Name Role Phone Nathalie Hsu MD Primary Care Provider [phone]- [phone] Shannan Barrow RN Unavailable [phone] Lisbeth Johnson Unavailable Reason for Visit * Reason Onset Date Comments PT-1 05/26/2024 Encounter Details Date Type Department Care Team (Late st Contact Info) Description 05/26/2024 Telephone [facility] MEDICINE [address] [place], [place] [phone] Nathalie Hsu MD [address] [place], [place] [phone] PT-1 Social History Tobacco Use Types Packs/Day [...] Y/N: Yes Provider name or facility name: [address] [address] Escort needed: Y/N: No Do you have a wheelchair: Y/N: No If yes- Manual or electric: N/A Visits: (amount of visits) ( x monthly, weekly, daily) 2 times per month. documented in this encounter Plan of Treatment Upcoming Encounters Date Type Department Care Team (Late st Contact Info) Description 08/03/2024 8:00 AM EDT Office Visit [facility] ADULT DENTAL [address] [place] [address] Panchito Lamas DDS [address] [place] [address] 08/11/2024 1:15 PM EDT Office Visit [facility] MEDICINE [address] [place] [address] Renny Holloway MD [address] [place] [address] 11/09/2024 1:00 PM EDT Office Visit [facility] OPTOMETRY [address] [place] [address] Seth, Zabrina, OD [address] [place] [address] 01/08/2025 10:00 AM EDT Office Visit [facility] ADULT DENTAL [address] [place] [address] Ulises, Chiquita [address] [place] [address] documented as of this encounter Visit Diagnoses Not on filedocumented in this encounter Additional Health Concerns Assessment Noted Time PHQ-9 Depression Total Score: 0 06/09/19 24 9:13 AM EST documented as of this encounter Care Teams Quality Facilitator Relationship Specialty Start Date End Date Nathalie Hsu MD [address] [place] [address] PCP - General Family Medicine 09/27/13 Shannan Barrow, KHAI [address] [place] [address] Registered Nurse 02/29/[address]rd [place] [address] Gastroenterology 03/15/24 Tonya Poole Fabric SourcerClip Loading Machine Adjuster 01/19/24 Raman (A [facility]) Registered Nurse 02/29/24 Marcos Verdin MD [place] [facility] [address] [place] [address] Cardiology 03/10/24 Omid Vincent Psychiatry 03/15/24 documented as of this encounter
--- OUTSIDE RECORDS SUMMARY | 2024-07-18 03:02 | XMS_ITS | Encounter Summary ---
Author Organization [employer] Address [address] 7t [place] [address] Care Team Providers Care Medical Coding Technician Name Role Phone Nathalie Hsu MD Primary Care Provider [phone]- [phone] Shannan Barrow RN Unavailable [phone] Lisbeth Johnson Unavailable Reason for Visit * Reason Onset Date Comments Hospital Follow-up 03/07/2024 Medication Question 03/07/2024 Encounter Details Date Type Department Care Team (Late st Contact Info) Description 03/07/2024 Telephone [facility] MEDIC[facility] [address] [place], [place] [phone] Nathalie Hsu MD [address] [place], [place] [phone] Hospital Follow-up; Medication Question Social History Tobacco [...] stating wrong number and he doesn't speak pakistani (was not the pt). 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 Pt is concerned about medication melatonin 5 MG tablet he still has trouble sleeping and doesn't want to stop taking. Hospital: [facility] Date of admission: 02/11 Discharge date: 03/01 Diagnosed: Liver Issues Contact pt to schedule at [phone] *Send message to [place] Clinical Care Coordinators documented in this encounter Plan of Treatment Upcoming Encounters Date Type Department Care Team (Late st Contact Info) Description 08/03/2024 8:00 AM EDT Office Visit [facility] ADULT DENTAL [address] [place] [address] Panchito Lamas DDS [address] [place] [address] 08/11/2024 1:15 PM EDT Office Visit [facility] MED[facility] [address] [place] [address] Renny Holloway MD [address] [place] [address] 11/09/2024 1:00 PM EDT Office Visit [facility] OPTOMETRY [address] [place] [address] Zabrina Ann OD [address] [place] [address] 01/08/2025 10:00 AM EDT Office Visit [facility] ADULT DENTAL [address] [place] [address] Chiquita Montgomery [address] [place] [address] documented as of this encounter Visit Diagnoses Not on filedocumented in this encounter Additional Health Concerns Assessment Noted Time PHQ-9 Depression Total Score: 0 06/09/19 24 9:13 AM EST documented as of this encounter Care Teams Medical Coding Technician Relationship Specialty Start Date End Date Nathalie Hsu MD [address] [place] [address] PCP - General Family Medicine 09/27/13 Shannan Barrow, RN [address] [place] [address] Registered Nurse 02/29/24 Lisbeth Johnson [address] [place] [address] Drive 3rd [place] [address] Gastroenterology 03/15/24 Tonya Poole Plastic Boat PatcherDay Care Supervisor 01/19/24 Raman (A [facility]) Registered Nurse 02/29/24 Marcos Verdin MD [facility] [address] [place] [address] Cardiology 03/10/24 Omid Vincent Psychiatry 03/15/24 documented as of this encounter
--- OUTSIDE RECORDS SUMMARY | 2024-07-18 03:02 | XMS_ITS | Encounter Summary ---
Author Organization [employer] Address [address] 7t [place] [address] Care Team Providers Care Cognos Bi Developer Name Role Phone Nathalie Hsu MD Primary Care Provider [phone]- [phone] Shannan Barrow RN Unavailable [phone] Lisbeth Johnson Unavailable Reason for Visit * Reason Onset Date Comments Med Refill 03/09/2024 Encounter Details Date Type Department Care Team (Late st Contact Info) Description 03/09/2024 Telephone [facility] MEDICINE [address] [place], [place] [phone] Nathalie Hsu MD [address] [place], [place] [phone] Med Refill Social History Tobacco Use Types [...] 9:13 AM EST Medication was sent to [facility] on 12/13/23 #60 with 3 refills. * Telephone Encounter - Alf Avilez - 03/09/2024 9:07 AM EST TC from pt requesting medication refill. Medications needing refill : melatonin 5 MG tablet To be sent to: [facility] documented in this encounter Plan of Treatment Upcoming Encounters Date Type Department Care Team (Late st Contact Info) Description 08/03/2024 8:00 AM EDT Office Visit [facility] ADULT DENTAL [address] [place] [address] Panchito Lamas DDS [address] [place] [address] 08/11/2024 1:15 PM EDT Office Visit [facility] MEDICINE [address] [place] [address] Renny Holloway MD [address] [place] [address] 11/09/2024 1:00 PM EDT Office Visit [facility] OPTOMETRY [address] [place] [address] SethZabrina funes, OD [address] [place] [address] 01/08/2025 10:00 AM EDT Office Visit [facility] ADULT DENTAL [address] [place] [address] Ulises Chiquita [address] [place] [address] documented as of this encounter Visit Diagnoses Not on filedocumented in this encounter Additional Health Concerns Assessment Noted Time PHQ-9 Depression Total Score: 0 06/09/19 24 9:13 AM EST documented as of this encounter Care Teams Cognos Bi Developer Relationship Specialty Start Date End Date Nathalie Hsu MD [address] [place] [address] PCP - General Family Medicine 09/27/13 Shannan Barrow, RN [address] [place] [address] Registered Nurse 02/29/[address]rd [place] [address] Gastroenterology 03/15/24 Tonya Poole Workforce Management AnalystGambreler Helper 01/19/24 Raman (A S) Registered Nurse 02/29/24 Marcos Verdin MD [place] [facility] [address] [place] [address] Cardiology 03/10/24 Omid Vincent Psychiatry 03/15/24 documented as of this encounter
--- OUTSIDE RECORDS SUMMARY | 2024-07-18 03:02 | XMS_ITS | Encounter Summary ---
Author Organization [employer] Address [address] 7t [place] [address] Care Team Providers Care Study Abroad Coordinator Name Role Phone Nathalie Hsu MD Primary Care Provider [phone]- [phone] Shannan Barrow RN Unavailable [phone] AlexLisbeth Unavailable Reason for Visit * Reason Onset Date Comments Results 07/14/2024 Encounter Details Date Type Department Care Team (Late st Contact Info) Description 07/14/[address] [facility] MEDICINE [address] [place], [place] [phone] Shannan Barrow, RN [address] [place], [place] [phone] Results Social History Tobacco Use Types Packs/Day Years [...] Telephone Encounter - Shannan Barrow RN - 07/14/2024 4:29 PM EDT Received INR results order by outside provider (GI) of 1.9. telephone call placed to pt's [facility] Sherin. Advised to change tomorrow's coumadin dose from 2.5mg to 5mg. [facility] verbalized understanding and denied having any further questions or concerns at this time. documented in this encounter Plan of Treatment Upcoming Encounters Date Type Department Care Team (Late st Contact Info) Description 08/03/2024 8:00 AM EDT Office Visit [facility] ADULT DENTAL [address] [place] [address] Panchito Lamas DDS [address] [place] [address] 08/11/2024 1:15 PM EDT Office Visit [facility] MEDICINE [address] [place] [address] Renny Holloway MD [address] [place] [address] 11/09/2024 1:00 PM EDT Office Visit [facility] OPTOMETRY [address] [place] [address] Seth, Zabrina, OD [address] [place] [address] 01/08/2025 10:00 AM EDT Office Visit [facility] ADULT DENTAL [address] [place] [address] Adalberto Montgomeryaris [address] [place] [address] documented as of this encounter Visit Diagnoses Not on filedocumented in this encounter Additional Health Concerns Assessment Noted Time PHQ-9 Depression Total Score: 0 06/09/19 9:13 AM EST documented as of this encounter Care Teams Study Abroad Coordinator Relationship Specialty Start Date End Date Nathalie Hsu MD [address] [place] [address] PCP - General Family Medicine 09/27/13 Shannan Barrow, RN [address] [place] [address] Registered Nurse 02/29/24 Lisbeth Johnson [address] [place] [address] Drive 3rd [place] [address] Gastroenterology 03/15/24 Tonya Poole Paying TellerRace Car Driver 01/19/24 Raman ([facility]) Registered Nurse 02/29/24 Marcos Verdin MD [place] [facility] [address] [place] [address] Cardiology 03/10/24 Omid Vincent Psychiatry 03/15/24 documented as of this encounter
--- OUTSIDE RECORDS SUMMARY | 2024-07-18 03:02 | XMS_ITS | Encounter Summary ---
Author Organization [employer] Address [address]t [place] [address] Care Team Providers Care Outdoor Emergency Care Technician Name Role Phone Nathalie Hsu MD Primary Care Provider [phone]- [phone] Shannan Barrow RN Unavailable [phone] Lisbeth Johnson Unavailable Reason for Visit * Reason Comments Med Refill Encounter Details Date Type Department Care Team (Late st Contact Info) Description 07/04/2024 Refill [facility] [address] [place] [address] Panchito Lamas DDS [address] [place], [place] [phone] Severe dental caries; Dental root caries; Advanced [...] Description 08/03/2024 8:00 AM EDT Office Visit [facility] [address] [place] [address] Panchito Lamas DDS [address] [place] [address] 08/11/2024 1:15 PM EDT Office Visit [facility] [address] [place] [address] Renny Holloway MD [address] [place] [address] 11/09/2024 1:00 PM EDT Office Visit [facility] [address] [place] [address] Zabrina Ann, OD [address] [place] [address] 01/08/2025 10:00 AM EDT Office Visit [facility] [address] [place], [place] [phone] Chiquita Montgomery [address] [place] [address] documented as of this encounter Visit Diagnoses Diagnosis Severe dental caries Dental root caries Advanced periodontitis Excessive attrition of teeth, limited to enamel Missing teeth, acquired Dental calculus Accretions on teeth documented in this encounter Additional Health Concerns Assessment Noted Time PHQ-9 Depression Total Score: 0 06/09/19 24 9:13 AM EST documented as of this encounter Care Teams Outdoor Emergency Care Technician Relationship Specialty Start Date End Date Nathalie Hsu MD [address] [place] [address] PCP - General Family Medicine 09/27/13 Shannan Barrow, KHAI [address] [place] [address] Registered Nurse 02/29/24 Lisbeth Johnson [address] [place] [address] [address] [place] [address] Gastroenterology 03/15/24 Tonya Poole Cut Off Saw GraderMiddleware Consultant 01/19/24 Raman ([facility]) Registered Nurse 02/29/24 Marcos Verdin MD [place] [facility] [address] [place] [address] Cardiology 03/10/24 Omid Vincent Psychiatry 03/15/24 documented as of this encounter
--- OUTSIDE RECORDS SUMMARY | 2024-07-18 03:02 | XMS_ITS | Clinical Summary ---
Author Organization [employer] Address [address] [place] [address] Care Team Providers Care Pressure Steamer Tender Name Role Phone Nathalie Hsu MD Primary Care Provider [phone] Shannan Barrow RN Unavailable [phone] Lisbeth Johnson Unavailable Allergies Active Allergy [...] 12/10/23 and INR was 13, transferred to [facility] Closed fracture of transvers e [...] diet discussed. Avoid hepatotoxic agents. -Followed by: Acid Mixer, Dr. Johnson: 03/15/24 at [facility] Gastroenterolog: MELD 22 on most recent [...] 04/26/24 Pt with complex medical course in [facility] including ICU admission due to acute on [...] add a night time snack such as bulgarian yogurt, PB etc - Cathead Worker referral - CLose follow up in 2 weeks -GI note 04/28/24 - Clarified need for CCC and Cathead Worker referrals - Due for EGD/colo - needs repeat echo ordered to follow up on cardiomyopathy prev EF 20-25% - Will also confirm his OP cut off machine helper for clearance - Pt reminded to bring [...] by: New appointment with GI 03/15/24 at [facility] Gastroenterology Assessment & Plan (01/19/2024 9:14 [...] due after 03/03/2024 -eye care facilitated by [facility] -dental home is [facility] -health care proxy on file 02/08/2015, filed into [facility] on 06/09/23 Assessment & Plan (03/10/2024 9:55 PM EST): -next comprehensive annual evaluation due after 03/03/2024 -eye care facilitated by [facility] -dental home is [facility] -[facility] care proxy on file 02/08/2015, filed into [employer] on 06/09/23 Assessment & Plan (01/19/2024 9:20 AM EDT): -next comprehensive annual evaluation due after 03/03/2024 -eye care facilitated by [facility] -dental home is [facility] care proxy on file 02/08/2015, filed into [employer] on 06/09/23 Assessment & Plan (12/27/2023 11:02 AM EDT): -next comprehensive annual evaluation due after 03/03/2024 -eye care facilitated by [facility] -dental home is [facility] care proxy on file 02/08/2015, filed into [employer] on 06/09/23 Assessment & Plan (10/22/2023 11:16 AM EDT): -next physical exam due after 03/03/2024 -eye care facilitated by [facility] -dental home is [facility] care proxy on file 02/08/2015, filed into [employer] on 06/09/23 Assessment & Plan (03/03/2023 9:35 [...] entresto startd by cardiology 05/2022 -F/u with cut off machine helper ANA Smith -furosemide 40 mg started during [...] entresto startd by cardiology 05/2022 -F/u with cut off machine helper ANA Smith -furosemide 40 mg started during [...] entresto startd by cardiology 05/2022 -F/u with cut off machine helper ANA Smith -Furosemide 40 mg started during [...] entresto startd by cardiology 05/2022 -F/u with cut off machine helper ANA Smith -Furosemide 40 mg started during [...] entresto startd by cardiology 05/2022 -F/u with cut off machine helper ANA Smith Assessment & Plan (06/03/2022 11:12 [...] entresto startd by cardiology 05/2022 -F/u with cut off machine helper ANA Smith Assessment & Plan (05/07/2022 10:43 [...] daily, and amlodipine 2.5mg daily -F/u with cut off machine helper ANA Smith -He is overdue for follow [...] (12/24/2022): -Hospitalized for subarachnoid hemorrhage 10/2021 at [facility] after fall in the setting of supratheraputic INR of 16 and heavy alcohol use. He was changed to lovenox but could not tolerate the injections. Back on coumadin with improved INRs. He is also on plavix. ER precautions discussed. Assessment & Plan (10/22/2023 11:16 AM EDT): -Hospitalized for subarachnoid hemorrhage 10/2021 at [facility] after fall in the setting of supratheraputic INR of 16 and heavy alcohol use. He was changed to lovenox but could not tolerate the injections. Back on coumadin with improved INRs. He is also on plavix. ER precautions discussed. Assessment & Plan (06/09/2023 9:36 AM EST): -Hospitalized for subarachnoid hemorrhage 10/2021 at [facility] after fall in the setting of supratheraputic INR of 16 and heavy alcohol use. He was changed to lovenox but could not tolerate the injections. Back on coumadin with improved INRs. He is also on plavix. ER precautions discussed. Assessment & Plan (08/11/2022 7:29 AM EDT): -Hospitalized for subarachnoid hemorrhage 10/2021 at [facility] after fall in the setting of supratheraputic INR of 16 and heavy alcohol use. He was changed to lovenox but could not tolerate the injections. Back on coumadin with improved INRs. He is also on plavix. ER precautions discussed. Assessment & Plan (06/03/2022 11:07 AM EST): -Hospitalized for subarachnoid hemorrhage 10/2021 at [facility] after fall in the setting of supratheraputic INR of 16 and heavy alcohol use. Now on Lovenox and clopidogrel. Assessment & Plan (05/07/2022 10:53 AM EST): Hospitalized for subarachnoid hemorrhage 10/2021 at [facility] after fall in the setting [...] daily drinking and rum - established with [facility] because insurance no longer accepted by [facility]. -Patient followed at [facility] with Dr. Cristine Deleon DO, seen 06/09/23 [...] daily drinking and rum - established with [facility] because insurance no longer accepted by [facility]. -Patient followed at [facility] with Dr. Cristine Deleon DO, seen 06/09/23 [...] daily drinking and rum - established with [facility] because insurance no longer accepted by [facility]. -Patient followed at [facility] with Dr. Cristine Deleon DO, seen 06/09/23 [...] daily drinking and rum - established with [facility] because insurance no longer accepted by [facility]. -Patient followed at [facility] with Dr. Cristine Deleon DO, seen 06/09/23 [...] daily drinking and rum - established with [facility] because insurance no longer accepted by [facility]. -Patient followed at [facility] Cardiovascular [facility] with Dr. Cristine Deleon DO, [...] daily drinking and rum - established with [facility] because insurance no longer accepted by [facility]. Assessment & Plan (11/30/2022 8:51 PM EDT): hx of aortic stenosis s/p Aortic valve repair, hx of AF , cardiomyopathy with EF 25-30%, ,hx AAA repair, complete heart block s/p pacemaker,CAD s/P stent INR goal 2.5 to 3.5 -continue to f up with his cut off machine helper-next apt w Dr Deleon is on 12/08/2022 - I called cards' office # [phone] and confirmed day and hour and gave [...] daily drinking and rum - Established with [facility] because insurance no longer accepted by [facility]. Assessment & Plan (06/03/2022 11:09 AM [...] ETOH with intracranial bleed. - established with [facility] because insurance no longer accepted by [facility]. Last seen 05/2022 recommending 4 week follow up Assessment & Plan (05/07/2022 10:46 AM EST): Hx [address] 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 No hx CABG. Pacemaker placed for AV radha block. -On Coumadin, managed by [facility]. - established with [facility] because insurance no longer accepted by [facility]. Presence of cardiac pacemaker 03/07/2014 Overview [...] as pharmacomtherapy, [facility], and [facility] pharmacy smoking cessation clinic -currently smoke cigarettes [...] as pharmacomtherapy, [facility] smoking cessation [facility], and [facility] pharmacy smoking cessation clinic -currently smoke cigarettes [...] as pharmacomtherapy, [facility] smoking cessation group, and [facility] pharmacy smoking cessation clinic -currently smoke cigarettes [...] as pharmacomtherapy, [facility] smoking cessation [facility], and [facility] pharmacy smoking cessation clinic -currently smoke cigarettes [...] -[facility] and has varying degrees of engagement in [...] tabs BID 06/09/23 Alcohol Use Disorder Clinic [facility] Support and [facility] televist tolerating the medication. Admits to 3 [...] tabs BID 06/09/23 Alcohol Use Disorder Clinic [facility] Support and [facility] televist tolerating the medication. Admits to 3 [...] Description 07/14/2024 1:00 PM EDT Office Visit [address] [address] Renny Holloway MD Alcohol use disorder, severe, dependence (CMS/HCC) (Primary Dx); Tobacco dependence 07/14/[address] [address] Shannan aBrrow, KHAI Results 07/14/2024 Orders Only GENERIC EXTERNAL DATA DEPARTMENT Provider, Generic External Data 07/14/2024 Travel 07/11/2024 Telephone [facility] PEDIATRICS [address] [place] [address] Nathalie Hsu MD INR results 07/05/[address] [address] Nathalie Hsu MD Referral 07/05/[address] [address] Hermelinda Hernandez ANP History of prosthetic heart valve 07/04/2024 Anticoagulation - Warfarin Visit [address] [address] Nathalie Hsu MD History of prosthetic heart valve 07/04/2024 Telephone [facility] [address] [place] [address] Nathalie Hsu MD critical lab 07/04/2024 Refill [facility] ADULT DENTAL [address] [place] [address] Panchito Lamas DDS Severe dental caries; Dental root caries; Advanced periodontitis; Excessive attrition of teeth, limited to enamel; Missing teeth, acquired; Dental calculus 07/04/[address] [address] Nathalie Hsu MD Anemia, unspecified type 07/03/2024 Refill [facility] MEDICINE [address] [place] [address] Nathalie Hsu MD Alcoholic liver disease (CMS/HCC); Anemia, unspecified type 06/28/2024 Refill [facility] MEDICINE [address] [place] [address] Nathalie Hsu MD Mild intermittent asthma without complication 06/27/[address] [address] Nathalie Hsu MD INR results 06/27/2024 Refill [facility] MEDICINE [address] [place] [address] Nathalie Hsu MD Pain; Mild intermittent asthma without complication 06/20/2024 Telephone [facility] PEDIATR[facility] [address] [place] [address] Nathalie Hsu MD critical lab 06/20/2024 Telephone [facility] ADULT DENTAL [address] [place] [address] Bolano medication 06/19/2024 Refill [facility] CHC MED & PEDS [address] [place], [place] [phone] Nathalie Hsu MD 06/16/2024 Population Health Risk Score [facility] () Department [address] [phone] Provider, Population Health Generic 06/13/2024 Telephone [facility] MEDICINE [address] [place] [address] Nathalie Hsu MD INR/Coumadin Dosing 06/09/2024 1:15 PM EST Telemedicine [facility] MEDICINE [address] [place] [address] Renny Holloway MD Alcohol use disorder, severe, dependence (CMS/HCC) (Primary Dx) 06/09/2024 Travel 06/08/2024 9:30 AM EST Office Visit [facility] ADULT DENTAL [address] [place] [address] Panchito Lamas DDS Severe dental caries (Primary Dx); Dental root caries; Advanced periodontitis; Excessive attrition of teeth, limited to enamel; Missing teeth, acquired; Dental calculus 06/06/2024 Telephone [facility] PEDIATRICS [address] [place] [address] Nathalie Hsu MD Results 06/02/2024 Refill [facility] PEDS [address] [place] [address] Nathalie Hsu MD 05/30/[address] [address] Nathalie Hsu MD CRITICAL RESULT CALL/INR 05/29/[address] [address] Nathalie Hsu MD Alcoholic liver disease ([facility]/HCC) 05/26/2024 Patient Outreach [address] [address] Nathalie Hsu MD Care Coordination ([facility] outreach for SDOH PT-1 and food needs-referral completed /) 05/26/[address] [address] Nathalie Hsu MD PT-1 05/23/[address] [address] Nathalie Hsu MD CRITICAL RESULT CALL 05/16/[address] [address] Nathalie Hsu MD CRITICAL RESULT CALL 05/09/[address] [address] Nathalie Hsu MD Anticoagulation 05/03/2024 1:00 PM EST Office Visit [facility] ADULT DENTAL [address] [place] [address] Panchito Lamas DDS Dental abscess (Primary Dx); Dental caries 05/03/[address] [address] Shannan Barrow, KHAI Paperwork/Forms 05/03/[address] [address] Nathalie Hsu MD Alcoholic liver disease ([facility]/HCC) 05/02/[address] [address] Nathalie Hsu MD Anticoagulation 04/25/2024 Telephone [facility] MEDICINE [address] [place] [address] Nathalie Hsu MD Anticoagulation from Last 3 [...] Description 08/03/2024 8:00 AM EDT Office Visit [facility] ADULT DENTAL [address], [place] [phone] Panchito Lamas, NETTAS [address] [place] [address] 08/11/2024 1:15 PM EDT Office Visit [facility] MEDICINE [address] [place] [address] Renny Holloway MD [address] [place] [address] 11/09/2024 1:00 PM EDT Office Visit [facility] OPTOMETRY [address] [place] [address] SethZabrina funes, OD [address] [place] [address] 01/08/2025 10:00 AM EDT Office Visit [facility] ADULT DENTAL [address] [place] [address] Adalberto Montgomeryaris [address] [place] [address] Health Maintenance Due Date Last Done Comments [...] Procedure Name Priority Date/Time Associated Diagnosis Comments COMPREHENSIVE METABOLIC PANEL Routine 07/14/2024 1:49 PM EDT PROTHROMBIN TIME-INR Routine 07/14/2024 1:49 PM EDT CBC Routine 07/14/2024 1:49 PM EDT CBC WITH AUTO DIFFERENTIAL Routine 07/14/2024 1:49 PM EDT Alcohol use disorder, severe, dependence (CMS/HCC) HEPATIC FUNCTION PANEL Routine 1:49 PM EDT Alcohol use disorder, severe, dependence (CMS/HCC) PROTHROMBIN TIME-INR Routine 07/11/2024 PROTHROMBIN TIME-INR Routine [...] TIME-INR Routine 05/02/2024 PROTHROMBIN TIME-INR Routine 04/25/2024 LAB COLOGUARD?? COLON CANCER SCREEN Routine 12/30/2023 [...] Relevant to Health Maintenance Results * (ABNORMAL) CBC auto differential (07/14/2024 1:49 PM EDT) White Blood Count 9.1 4.8 - 10.8 X10*3/uL [facility] Red Blood Count 4.59(L) 4.60 - 5.80 X10*6/uL [facility] Hemoglobin 14.3 14.0 - 18.0 g/dl [facility] Hematocrit 41.7(L) 42.0 - 52.0 % [facility] Mean Corpuscular Volume 90.8 80.0 - 98.0 fL [facility] Mean Corpuscular Hemoglobin 31.2 27.0 - 33.0 pg [facility] Mean Corpuscular HGB Conc 34.3 31.0 - 36.0 g/dl [facility] Red Cell Distribution Width 14.1 11.0 - 16.0 % [facility] Platelet Count 246 160 - 400 X10*3/uL [facility] Mean Platelet Volume 9.1(L) 9.4 - 12.4 fL [facility] Neutrophils Percent Auto 56.4 45 - 73 % [facility] Imm Gran Pct Auto 0.7(H) 0.0 - 0.4 % [facility] Lymphocytes Percent Auto 31.8 20 - 40 % [facility] Monocytes Percent Auto 7.7 2 - 11 % [facility] Eosinophils Percent Auto 2.4 0 - 4 % [facility] Basophils Percent Auto 1.0 0 - 2 % [facility] NRBC Pct Auto 0.0 0.0 - 0.2 /100WBC [facility] Neutrophils Absolute Auto 5.1 2.0 - 8.3 x10*3/uL [facility] Imm Gran Abs Auto 0.06(H) 0.00 - 0.03 X10*3/uL [facility] Lymphocytes Absolute Auto 2.9 1.2 - 4.9 X10*3/uL [facility] Monocytes Absolute Auto 0.7 0.1 - 1.2 X10*3/uL [facility] Eosinophils Absolute Auto 0.2 0.0 - 0.4 X10*3/uL [facility] Basophils Absolute Auto 0.1 0.0 - 0.2 X10*3/uL [facility] NRBC Abs Auto 0.000 0.0 - 0.012 X10*3/uL [facility] Blood Venous blood specimen / Unknown 07/14/2024 1:49 PM EDT 07/14/2024 3:58 PM EDT us Renny Holloway MD LAB BLOOD ORDERABLES Final Resul t Performing Organization Address [facility]/ZIP Co de Phone Number [facility] [address] [place] [phone] * (ABNORMAL) Prothrombin Time-INR (07/14/2024 1:49 PM EDT) Only the most recent of13 resultswithin the time period is included. Prothrombin Time 22.7(H) 10.9 - 12.4 SEC [facility] INTERNATIONAL NORM RATIO 1.9(H) 0.9 - 1.1 [facility] Comment:INTERNATIONAL NORMAL IZED RATIO (INR) [...] ORDERAB LES Final Result Performing Organization Address [facility]/ZIP Co de Phone Number [facility] [address] [place] [phone] * CBC (07/14/2024 1:49 PM EDT) White Blood Count 9.0 4.8 - 10.8 X10*3/uL [facility] Red Blood Count 4.63 4.60 - 5.80 X10*6/uL [facility] Hemoglobin 14.3 14.0 - 18.0 g/dl [facility] Hematocrit 42.4 42.0 - 52.0 % [facility] Mean Corpuscular Volume 91.6 80.0 - 98.0 fL [facility] Mean Corpuscular Hemoglobin 30.9 27.0 - 33.0 pg [facility] Mean Corpuscular HGB Conc 33.7 31.0 - 36.0 g/dl [facility] Red Cell Distribution Width 13.9 11.0 - 16.0 % [facility] Platelet Count 258 160 - 400 X10*3/uL [facility] Mean Platelet Volume 9.5 9.4 - 12.4 fL [facility] NRBC Pct Auto 0.0 0.0 - 0.2 /100WBC [facility] NRBC Abs Auto 0.000 0.0 - 0.012 X10*3/uL [facility] 07/14/2024 1:49 PM EDT 07/14/2024 3:58 PM EDT us Generic External Data Provider LAB BLOOD ORDERAB LES Final Result Performing Organization Address [facility]/ZIP Co de Phone Number [facility] [address] [place] [phone] * Hepatic Function Panel (07/14/2024 1:49 PM EDT) Pathologist [facility] Bilirubin, Direct 0.3 0.0 - 0.5 mg/dL [facility] Blood Venous blood specimen / Unknown 07/14/2024 1:49 PM EDT 07/14/2024 3:58 PM EDT Renny Holloway MD LAB BLOOD ORDERABLES Final Resul t Performing Organization Address City/[facility]/ZIP Co de Phone Number [facility] [address] [place] [phone] * (ABNORMAL) Comprehensive Metabolic Panel (07/14/2024 1:49 PM EDT) Sodium 139 135 - 145 mmol/L [facility] Potassium 3.8 3.3 - 5.1 mmol/L [facility] Chloride 112(H) 96 - 108 mmol/L [facility] Carbon Dioxide 21(L) 22 - 29 mmol/L [facility] Anion Gap 10(L) 12 - 20 [facility] Urea Nitrogen (BUN) 17(H) 9 - 16 mg/dL [facility] Creatinine, Serum 1.01 0.5 - 1.4 mg/dL [facility] Estimated Glomerular Filt Rate >60 [facility] Comment:Chronic Kidney Disea se: Estimated GFR < 60 mL/min/1.40u2Omftvy Kidney Disease: Estimated GFR < 15 mL/min/1.73m2 Glucose 93 60 - 115 mg/dL [facility] Calcium 9.0 8.4 - 10.2 mg/dL [facility] Bilirubin, Total 0.6 0.0 - 1.0 mg/dL [facility] Aspartate Amino Transferase 31 5 - 37 U/L [facility] Alanine Aminotransferase 37 0 - 40 U/L [facility] Total Protein 7.8 6.5 - 8.0 g/dL [facility] Albumin Level 4.0 3.5 - 5.0 g/dL [facility] Alkaline Phosphatase 131(H) 39 - 117 U/L [facility] 07/14/2024 1:49 PM EDT 07/14/2024 3:58 PM EDT us Generic External Data Provider LAB BLOOD ORDERAB LES Final Result Performing Organization Address City/State/[facility] Co de Phone Number [facility] [address] [place] [phone] * Cologuard?? colon cancer screening (12/30/2023 1:30 AM EDT) Cologuard Result Negative Negative 01/05/20 1:07 AM EDT [facility] (CLIA #:[id number]) Comment: NEGATIVE TEST RESULT. A negative Cologuard [...] cancer. ??Following a negative Cologuard result, the [place] [employer] and U.S. Multi-Society Task Force screening guidelines recommend a Cologuard re-screening interval of 3 years. References: [place] [employer] Guideline for Colorectal Cancer Screening: https://www.cancer.org/cancer/sefsx-yjjzko-svfnhh/hfpbleldl-piucgrzka-bwohyqy/ac s-rec ommendations.html.; Honorio DK, Lita NEGRETE, Luba JamesK, Colorectal Cancer Screening: Recommendations for Physicians and Patients from the U.S. Multi-Society Task Force on Colorectal Cancer Screening , Am J Gastroenterology 2017; 112:3709-1390. TEST DESCRIPTION: Composite algorithmic analysis of stool [...] Haq et al, N Engl J Med 2014;370(14):4173-0480.) Cologuard may produce a false negative or false positive result (no colorectal cancer or precancerous polyp present at colonoscopy follow up). A negative Cologuard test result does not guarantee the absence of CRC or advanced adenoma (pre-cancer). The current Cologuard screening interval is every 3 years. ([place] [employer] and U.S. Multi-Society Task Force). Cologuard performance data in a 10,000 patient pivotal study using colonoscopy as the reference method can be accessed at the following location: www.[employer].Nephera/results. Additional description of the Cologuard test process, warnings and precautions can be found at www.cologuard.com. Stool specimen (specimen) Rectal contents / Unknown 12/30/2023 1:30 AM EDT 01/01/2024 3:30 PM EDT Nathalie Hsu MD LAB MOLECULAR DIAGNOSTICS ORDERABLES Final Result [facility] (CLIA #:[id number]) [address] [address], * Hepatitis C Antibody with Reflex to HCV, RNA, Quantitative, Real-Time PCR (08/10/2022 11:24 AM EDT) Hepatitis C Antibody NON-REACT KG NON-REACT KG [facility] [place] [employer] Index 0.13 <1.00 [facility] [place] [facility] [employer] Comment: HCV antibody was non-reactive. There is no laboratory evidence of HCV infection. In most cases, no further action is required. However, if recent HCV exposure is suspected, a test for HCV RNA (test code 73249) is suggested. For additional information please refer to http://education.SEDLine.Nephera/faq/HOB30v1 (This link is being provided for informational/ educational purposes only.) Blood Venous blood specimen / Unknown 08/10/2022 11:24 AM EDT 08/10/2022 11:25 AM EDT Narrative [facility] - 08/16/2022 12:40 AM EDT FASTING:NO FASTING: NO Nathalie Hsu MD LAB BLOOD ORDERABLES Final Result [facility] [address], [place] [address] [facility] [place] [employer] [address] [place] [phone] * HIV-1/2 Antigen and Antibodies, Fourth Generation, with Reflexes (08/10/2022 11:24 AM EDT) [facility] HIV Antigen/Antibody, 4th Generation NON-REAC TIVE NON-REAC TIVE [facility] [place] [facility] [employer] Comment: HIV-1 antigen and HIV-1/HIV-2 antibodies were [...] ?? For additional information please refer to http://education.SEDLine.Nephera/faq/UPC038 (This link is being provided for informational/ educational purposes only.) The performance of this assay has not been clinically validated in patients less than 2 years old. Blood Venous blood specimen / Unknown 08/10/2022 11:24 AM EDT 08/10/2022 11:25 AM EDT Narrative [facility] - 08/16/2022 12:40 AM EDT FASTING:NO FASTING: NO Result [facility] Nathalie Hsu MD LAB BLOOD ORDERABLES Final Result [facility] [address], [place] [address] [facility] [place] [facility] 200 [place] [address] * Lipid Panel, Standard (08/10/2022 11:24 AM EDT) Cholesterol, Total 161 <200 mg/dL [facility] [place] [facility] HDL Cholesterol 62 > OR = 40 mg/dL [facility] [place] [facility] Triglycerides 109 <150 mg/dL [facility] [place] [facility] LDL Cholesterol 80 mg/dL (calc) [facility] [place] [facility] Comment: Reference range: <100 Desirable range <100 mg/dL for primary prevention; ?? <70 mg/dL for patients with CHD or diabetic patients with > or = 2 CHD risk factors. LDL-C is now calculated using the Gallo calculation, which is a validated novel method providing better accuracy than the Friedewald equation in the estimation of LDL-C. Anthony SS et al. FLAKITA. 2013;310(19): 7949-6154 (http://education.[employer]faq/ZEU892) Chol/HDLC Ratio 2.6 <5.0 (calc) [facility] [place] [facility] Non-HDL Cholesterol 99 <130 mg/dL (calc) [facility] [place] [facility] Comment: For patients with diabetes plus 1 major ASCVD risk factor, treating to a non-HDL-C goal of <100 mg/dL (LDL-C of <70 mg/dL) is considered a therapeutic option. Blood Venous blood specimen / Unknown 08/10/2022 11:24 AM EDT 08/10/2022 11:25 AM EDT Narrative [facility] - 08/16/2022 12:40 AM EDT FASTING:NO FASTING: NO Nathalie Hsu MD LAB BLOOD ORDERABLES Final Result [facility] [address], [place] [address] [facility] 200 [place] [address] * Hm Colonoscopy (03/05/2012) Colonoscopy Dr. Zhang Tosha Provider HEALTH MAINTENANCE Final Result from Last 3 Months or Most Recently Relevant to Health Maintenance Insurance [facility] MEDICAID STAND ADULT Advance Directives Documents on File Type Date Recorded Patient Peoplesoft Analyst Expl anation Advance Directives and Living Will 06/10/2023 1:14 PM Health Care Proxy Care Teams Pressure Steamer Tender Relationship Specialty Start Date End Date Castaner, MD Nathalie 230 [place], [place] [phone] PCP - General Family Medicine 09/27/13 Shannan Barrow, RN 230 [place], [place] [phone] Registered Nurse 02/29/24 Lisbeth Johnson [address] [place] [address] 3rd [place] [address] Gastroenterology 03/15/24 Tonya Poole Mechanical Design DrafterCytotechnologist/Histotechnologist 01/19/24 Raman ([facility]) Registered Nurse 02/29/24 Marcos Verdin MD [place] [facility] [address] [place] [address] Cardiology 03/10/24 Omid Vincent Psychiatry 03/15/24
--- OUTSIDE RECORDS SUMMARY | 2024-07-18 03:03 | XMS_ITS | Encounter Summary ---
Author Organization [employer] Address [address] 7t [place] [address] Care Team Providers Care Student Development Coordinator Name Role Phone Nathalie Hsu MD Primary Care Provider +1- [phone] Shannan Barrow RN Unavailable [phone] Lisbeth Johnson Unavailable Encounter Details Date Type Department Care Team (Late st Contact Info) Description 05/12/2023 Orders Only [facility] MEDICINE 230 [place], [place] [phone] Nathalie Hsu MD 230 [place], [place] [phone] Social History Tobacco Use Types Packs/Day Years [...] Description 08/03/2024 8:00 AM EDT Office Visit [facility] ADULT DENTAL 230 [place] [address] Panchito Lamas DDS 230 [place] [address] 08/11/2024 1:15 PM EDT Office Visit [facility] MEDICINE 230 [place] [address] Renny Holloway MD 230 [place] [address] 11/09/2024 1:00 PM EDT Office Visit [facility] OPTOMETRY [address] [place] [address] Zabrina Ann, GEETA 230 [place] [address] 01/08/2025 10:00 AM EDT Office Visit [facility] ADULT DENTAL 230 [place] [address] Chiquita Montgomery 230 [place] [address] documented as of this encounter Visit Diagnoses Not on filedocumented in this encounter Additional Health Concerns Assessment Noted Time PHQ-9 Depression Total Score: 6 05/08/19 23 10:33 AM EST documented as of this encounter Care Teams Student Development Coordinator Relationship Specialty Start Date End Date Nathalie Hsu MD 230 [place] [address] PCP - General Family Medicine 09/27/13 Shannan Barrow, RN 230 [place] [address] Registered Nurse 02/29/24 Lisbeth Johnson [address] [place] [address] 3rd [place] [address] Gastroenterology 03/15/24 Tonya Poole Relay RepairerSlunk Skinner 01/19/24 Raman ([facility]) Registered Nurse 02/29/24 Marcos Verdin MD [place] and [facility] [address] [place] [address] Cardiology 03/10/24 Omid Vincent Psychiatry 03/15/24 documented as of this encounter
--- OUTSIDE RECORDS SUMMARY | 2024-07-18 03:03 | XMS_ITS | Encounter Summary ---
Author Organization [facility] Address [address] 7t [place] [address] Care Team Providers Care Fruit Or Nut Grower Name Role Phone Nathalie Hsu MD Primary Care Provider +1- [phone] Shannan Barrow RN Unavailable Lisbeth Johnson Unavailable Encounter Details Date Type Department Care Team (Late st Contact Info) Description 08/11/2023 Telephone [facility] MEDICINE 230 [place], [place] [phone] Nathalie Hsu MD 230 [place], [place] [phone] Social History Tobacco Use Types Packs/Day Years [...] 8:00 AM EDT Office Visit [facility] ADULT DENTAL 230 [place] [address] Panchito Lamas DDS 230 [place] [address] 08/11/2024 1:15 PM EDT Office Visit [facility] MEDICINE 230 [place] [address] Renny Holloway MD 230 [place] [address] 11/09/2024 1:00 PM EDT Office Visit [facility] OPTOMETRY [address] [place] [address] Zabrina Ann, GEETA 230 [place] [address] 01/08/2025 10:00 AM EDT Office Visit [facility] ADULT DENTAL 230 [place] [address] Chiquita Montgomery 230 [place] [address] documented as of this encounter Visit Diagnoses Not on filedocumented in this encounter Additional Health Concerns Assessment Noted Time PHQ-9 Depression Total Score: 0 06/09/19 24 9:13 AM EST documented as of this encounter Care Teams Fruit Or Nut Grower Relationship Specialty Start Date End Date Nathalie Hsu MD 230 [place] [address] PCP - General Family Medicine 09/27/13 Shannan Barrow, RN 230 [place] [address] Registered Nurse 02/29/24 Lisbeth Johnson [address] [place] [address] 3rd [place] [address] Gastroenterology 03/15/24 Tonya Poole Keno ManagerMachinist Instructor 01/19/24 Raman ([facility]) Registered Nurse 02/29/24 Marcos Verdin MD [place] [facility] [address] [place] [address] Cardiology 03/10/24 Omid Vincent Psychiatry 03/15/24 documented as of this encounter
--- OUTSIDE RECORDS SUMMARY | 2024-07-18 03:03 | XMS_ITS | Encounter Summary ---
Author Organization [employer] Address [address] 7t [place] [address] Care Team Providers Care Energy Scheduler Name Role Phone Nathalie Hsu MD Primary Care Provider +1- [phone] Shannan Barrow RN Unavailable [phone] Lisbeth Johnson Unavailable Reason for Visit * Reason Onset Date Comments Coagulation Disorder 05/12/2023 Encounter Details Date Type Department Care Team (Late st Contact Info) Description 05/12/2023 Telephone [facility] MEDICINE 230 [place], [place] [phone] Nathalie Hsu MD 230 [place], [place] [phone] Coagulation Disorder Social History Tobacco Use Types [...] to report INR. Please contact raman at [phone] documented in this encounter Plan of Treatment Upcoming Encounters Date Type Department Care Team (Late st Contact Info) Description 08/03/2024 8:00 AM EDT Office Visit [facility] ADULT DENTAL 230 [place] [address] Panchito Lamas DDS 230 [place] [address] 08/11/2024 1:15 PM EDT Office Visit [facility] MEDICINE 230 [place] [address] Renny Holloway MD 230 [place] [address] 11/09/2024 1:00 PM EDT Office Visit [facility] OPTOMETRY [address] [place] [address] Zabrina Ann, GEETA 230 [place] [address] 01/08/2025 10:00 AM EDT Office Visit [facility] ADULT DENT[facility] 230 [place] [address] Chiquita Montgomery 230 [place], [place] [phone] documented as of this encounter Visit Diagnoses Not on filedocumented in this encounter Additional Health Concerns Assessment Noted Time PHQ-9 Depression Total Score: 6 05/08/19 23 10:33 AM EST documented as of this encounter Care Teams Energy Scheduler Relationship Specialty Start Date End Date Nathalie Hsu MD 230 [place], [place] [phone] PCP - General Family Medicine 09/27/13 Shannan Barrow, KHAI [address] [place] [address] [phone] Registered Nurse 02/29/24 Lisbeth Johnson [address] [place] [address] Drive 3rd [place] [address] Gastroenterology 03/15/24 Tonya Poole Perinatal TechClassification Inspector 01/19/24 Raman ([facility]) Registered Nurse 02/29/24 Marcos Verdin MD [place] and [facility] [address] [place] [address] Cardiology 03/10/24 Omid Vincent Psychiatry 03/15/24 documented as of this encounter
--- OUTSIDE RECORDS SUMMARY | 2024-07-18 03:03 | XMS_ITS | Encounter Summary ---
Author Organization [facility] Address [address] [facility] 7t [place] [address] Care Team Providers Care Engineering Illustrator Name Role Phone [place], Nathalie ABDI Primary Care Provider + [phone] Shannan Barrow RN Unavailable [phone] Lisbeth Johnson Unavailable Encounter Details Date Type Department Care Team (Late st Contact Info) Description 11/27/2022 Orders Only [facility] MEDICINE 230 [place] [address] Jose Dockery 230 [place] [address] Social History Tobacco Use Types Packs/Day Years [...] Description 08/03/2024 8:00 AM EDT Office Visit [facility] ADULT DENTAL 230 [place], [place] [phone] Panchito Lamas DDS 230 [place], [place] [phone] 08/11/2024 1:15 PM EDT Office Visit [facility] MEDICINE 230 [place] [address] Renny Holloway MD 230 [place] [address] 11/09/2024 1:00 PM EDT Office Visit [facility] OPTOMETRY [address] [place] [address] Seth, Zabrina, OD 230 [place] [address] 01/08/2025 10:00 AM EDT Office Visit [facility] ADULT DENTAL 230 [place] [address] Ulises, Chiquita 230 [place] [address] documented as of this encounter Visit Diagnoses Not on filedocumented in this encounter Additional Health Concerns Assessment Noted Time PHQ-9 Depression Total Score: 6 05/08/19 23 10:33 AM EST documented as of this encounter Care Teams Engineering Illustrator Relationship Specialty Start Date End Date Nathalie Hsu MD 230 [place] [address] PCP - General Family Medicine 09/27/13 Shannan Barrow, RN [address] [place] [address] Registered Nurse 02/29/24 Lisbeth Johnson [address] [place] [address] Drive 3rd [place] [address] Gastroenterology 03/15/24 Tonya Poole Medical ScientistLand Surveying Survey Worker 01/19/24 Raman ([facility]) Registered Nurse 02/29/24 Marcos Verdin MD [place] [facility] [address] [place] [address] Cardiology 03/10/24 Omid Vincent Psychiatry 03/15/24 documented as of this encounter
--- OUTSIDE RECORDS SUMMARY | 2024-07-18 03:03 | XMS_ITS | Encounter Summary ---
Author Organization [facility] Address [address] 7t [place] [address] Care Team Providers Care Chief Human Resources Officer Name Role Phone Nathalie Hsu MD Primary Care Provider [phone]- [phone] Shannan Barrow RN Unavailable [phone] Lisbeth Johnson Unavailable Reason for Visit * Reason Onset Date Comments Results 01/12/2023 INR Encounter Details Date Type Department Care Team (Late st Contact Info) Description 01/12/2023 Telephone [facility] MEDICINE 230 [place] [address] Nathalie Hsu MD 230 [place], [place] [phone] Results (INR) Social History Tobacco Use Types [...] 12:36 PM EDT Tc from [facility] at [facility] reporting INR results. Please call [phone] documented in this encounter Plan of Treatment Upcoming Encounters Date Type Department Care Team (Late st Contact Info) Description 08/03/2024 8:00 AM EDT Office Visit [facility] ADULT DENTAL 230 [place] [address] Panchito Lamas DDS 230 [place] [address] 08/11/2024 1:15 PM EDT Office Visit [facility] MEDICINE 230 [place] [address] Renny Holloway MD 230 [place] [address] 11/09/2024 1:00 PM EDT Office Visit [facility] OPTOMETRY [address] [place] [address] Zabrina Ann, GEETA 230 [place] [address] 01/08/2025 10:00 AM EDT Office Visit [facility] ADULT DENTAL 230 [place] [address] Chiquita Montgomery 230 [place] [address] documented as of this encounter Visit Diagnoses Not on filedocumented in this encounter Additional Health Concerns Assessment Noted Time PHQ-9 Depression Total Score: 6 05/08/19 23 10:33 AM EST documented as of this encounter Care Teams Chief Human Resources Officer Relationship Specialty Start Date End Date Nathalie Hsu MD 230 [place] [address] PCP - General Family Medicine 09/27/13 Shannan Barrow, KHAI 230 [place] [address] Registered Nurse 02/29/24 Lisbeth Johnson [address] [place] [address] 3rd [place] [address] Gastroenterology 03/15/24 Tonya Poole Asphalt Tamping Machine OperatorFinancial Writer 01/19/24 Raman (A S) Registered Nurse 02/29/24 Marcos Verdin MD [place] [facility] [address] [place] [address] Cardiology 03/10/24 Omid Vincent Psychiatry 03/15/24 documented as of this encounter
--- OUTSIDE RECORDS SUMMARY | 2024-07-18 03:03 | XMS_ITS | Encounter Summary ---
Author Organization [employer] Address [address] 7t [place] [address] Care Team Providers Care Dish Person Name Role Phone Nathalie Hsu MD Primary Care Provider [phone]- [phone] Shannan Barrow RN Unavailable [phone] Lisbeth Johnson Unavailable Encounter Details Date [...] Description 08/03/2024 8:00 AM EDT Office Visit [facility] ADULT DENTAL 230 [place] [address] Panchito Lamas DDS 230 [place] [address] 08/11/2024 1:15 PM EDT Office Visit [facility] MEDICINE 230 [place] [address] Renny Holloway MD 230 [place] [address] 11/09/2024 1:00 PM EDT Office Visit [facility] OPTOMETRY 267 [place] [address] SethZabrina funes, OD 230 [place] [address] 01/08/2025 10:00 AM EDT Office Visit [facility] ADULT DENTAL 230 [place] [address] Chiquita Montgomery 230 [place] [address] documented as of this encounter Visit Diagnoses Not on filedocumented in this encounter Additional Health Concerns Assessment Noted Time PHQ-9 Depression Total Score: 0 06/09/19 24 9:13 AM EST documented as of this encounter Care Teams Dish Person Relationship Specialty Start Date End Date Nathalie Hsu MD 230 [place] [address] PCP - General Family Medicine 09/27/13 Shannan Barrow, RN 230 [place] [address] Registered Nurse 02/29/24 Lisbeth Johnson [address] [place] [address] 3rd [place] [address] Gastroenterology 03/15/24 Tonya Poole Muffler TenderTherapeutic Strategy Lead 01/19/24 Raman (A [facility]) Registered Nurse 02/29/24 Marcos Verdin MD [place] [facility] [address] [place] [address] Cardiology 03/10/24 Omid Vincent Psychiatry 03/15/24 documented as of this encounter
--- OUTSIDE RECORDS SUMMARY | 2024-07-18 03:03 | XMS_ITS | Encounter Summary ---
Author Organization [employer] Address [address] [facility] [address] 7t [place] [address] Care Team Providers Care Ruffling Machine Operator Name Role Phone Nathalie Hsu MD Primary Care Provider [phone]- [phone] Shannan Barrow RN Unavailable [phone] Lisbeth Johnson Unavailable Reason for Visit * Reason Comments Med Refill Encounter Details Date Type Department Care Team (Late st Contact Info) Description 11/01/2023 Refill [facility] MED & PEDS [address] [place], [place] [phone] Nathalie Hsu MD 230 [place], [place] [phone] Mild intermittent asthma, unspecified whether complicated Social [...] the past 12 months, has t he [employer], gas, 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 threatened to [...] Description 08/03/2024 8:00 AM EDT Office Visit [facility] ADULT DENTAL 230 [place] [address] Panchito Lamas DDS 230 [place] [address] 08/11/2024 1:15 PM EDT Office Visit [facility] MEDICINE 230 [place] [address] Renny Holloway MD 230 [place] [address] 11/09/2024 1:00 PM EDT Office Visit [facility] OPTOMETRY 267 [place] [address] Zabrina Ann, GEETA 230 [place] [address] 01/08/2025 10:00 AM EDT Office Visit [facility] ADULT DENTAL 230 [place] [address] Chiquita Montgomery 230 [place] [address] documented as of this encounter Visit Diagnoses Diagnosis Mild intermittent asthma, unspecified whether complicated documented in this encounter Additional Health Concerns Assessment Noted Time PHQ-9 Depression Total Score: 0 06/09/19 9:13 AM EST documented as of this encounter Care Teams Ruffling Machine Operator Relationship Specialty Start Date End Date Nathalie Hsu MD 230 [place] [address] PCP - General Family Medicine 09/27/13 Shannan Barrow, KHAI 230 [place] [address] Registered Nurse 02/29/24 Lisbeth Johnson [address] [place] [address] 3rd [place] [address] Gastroenterology 03/15/24 Tonya Poole Pocketed Spring AssemblerAdjunct Faculty Mathematics Department 01/19/24 Raman ([facility]) Registered Nurse 02/29/24 Marcos Verdin MD [place] [facility] [address] [place] [address] Cardiology 03/10/24 Omid Vincent Psychiatry 03/15/24 documented as of this encounter
--- OUTSIDE RECORDS SUMMARY | 2024-07-18 03:03 | XMS_ITS | Encounter Summary ---
Author Organization [employer] [facility] Address [address] [facility] 7t [place] [address] Care Team Providers Care Refuse And Recycling Worker Name Role Phone Nathalie Hsu MD Primary Care Provider + [phone] Shannan Barrow RN Unavailable [phone] Lisbeth Johnson Unavailable Encounter Details Date Type Department Care Team (Late st Contact Info) Description 04/01/2022 Orders Only [facility] MEDICINE [address] [place] [phone] Anabell Weston, KHAI Social History Tobacco Use [...] 8:00 AM EDT Office Visit [facility] ADULT DENTAL [address] [place] [phone] Panchito Lamas DDS 230 [place], [place] [phone] 08/11/2024 1:15 PM EDT Office Visit [facility] MEDICINE [address] [place] [address] Renny Holloway MD 230 [place], [place] [phone] 11/09/2024 1:00 PM EDT Office Visit [facility] OPTOMETRY [address] [place] [address] Zabrina Ann, OD 230 [place] [address] 01/08/2025 10:00 AM EDT Office Visit [facility] ADULT DENTAL 230 [place] [address] Ulises, Chiquita 230 [place] [address] documented as of this encounter Visit Diagnoses Not on filedocumented in this encounter Care Teams Refuse And Recycling Worker Relationship Specialty Start Date End Date Nathalie Hsu MD 230 [place] [address] PCP - General Family Medicine 09/27/13 Shannan Barrow, KHAI [address] [place] [address] Registered Nurse 02/29/24 Lisbeth Johnson [address] [place] [address] Drive 3rd [place] [address] Gastroenterology 03/15/24 Tonya Poole Cabin Furnishings InstallerTelegrapher Agent 01/19/24 Raman (A [facility]) Registered Nurse 02/29/24 Marcos Verdin MD [place] and [facility] [address] [place] [address] Cardiology 03/10/24 Omid Vincent Psychiatry 03/15/24 documented as of this encounter
--- OUTSIDE RECORDS SUMMARY | 2024-07-18 03:03 | XMS_ITS | Encounter Summary ---
Author Organization [employer] Address [address] [facility] [address] [facility] [address] 7t [place] [address] Care Team Providers Care Applications Engineer Name Role Phone Nathalie Hsu MD Primary Care Provider [phone]- [phone] Shannan Barrow RN Unavailable [phone] Lisbeth Johnson Unavailable Reason for Visit * Reason Comments Med Refill Encounter Details Date Type Department Care Team (Late st Contact Info) Description 02/12/2023 Refill [facility] MEDICINE 230 [place], [place] [phone] Nathalie Hsu MD 230 [place], [place] [phone] Pain Social History Tobacco Use Types Packs/Day [...] 08/03/2024 8:00 AM EDT Office Visit [facility] ADULT DENTAL 230 [place] [address] Panchito Lamas DDS [address] [place] [address] 08/11/2024 1:15 PM EDT Office Visit [facility] MEDICINE [address] [place] [address] Renny Holloway MD 230 [place] [address] 11/09/2024 1:00 PM EDT Office Visit [facility] OPTOMETRY [address] [place] [address] Seth, Zabrina, OD 230 [place] [address] 01/08/2025 10:00 AM EDT Office Visit [facility] ADULT DENTAL 230 [place] [address] Ulises Chiquita 230 [place] [address] documented as of this encounter Visit Diagnoses Diagnosis Pain Generalized pain documented in this encounter Additional Health Concerns Assessment Noted Time PHQ-9 Depression Total Score: 6 05/08/19 23 10:33 AM EST documented as of this encounter Care Teams Applications Engineer Relationship Specialty Start Date End Date Nathalie Hsu MD 230 [place] [address] PCP - General Family Medicine 09/27/13 Shannan Barrow, RN 230 [place] [address] Registered Nurse 02/29/[address] 3rd [place] [address] Gastroenterology 03/15/24 Tonya Poole Buddhist MonkField Handyman 01/19/24 Raman ([facility]) Registered Nurse 02/29/24 Marcos Verdin MD [place] [facility] [address] [place] [address] Cardiology 03/10/24 Omid Vincent Psychiatry 03/15/24 documented as of this encounter
--- OUTSIDE RECORDS SUMMARY | 2024-07-18 03:03 | XMS_ITS | Encounter Summary ---
Author Organization [employer] Address [address] 7t [place] [address] Care Team Providers Care Documentation Clerk Name Role Phone Nathalie Hsu MD Primary Care Provider [phone]- [phone] Shannan Barrow RN Unavailable [phone] Lisbeth Johnson Unavailable Reason for Visit * Reason Comments Med Refill Encounter Details Date Type Department Care Team (Late st Contact Info) Description 02/28/2023 Refill [facility] MEDICINE [address] [place], [place] [phone] Nathalie Hsu MD [address] [place], [place] [phone] Social History Tobacco Use Types Packs/Day Years [...] Description 08/03/2024 8:00 AM EDT Office Visit [facility] ADULT DENTAL [address] [place] [address] Panchito Lamas DDS [address] [place] [address] 08/11/2024 1:15 PM EDT Office Visit [facility] MEDICINE [address] [place] [address] Renny Holloway MD [address] [place] [address] 11/09/2024 1:00 PM EDT Office Visit [facility] OPTOMETRY [address] [place] [address] Seth, Zabrina, OD [address] [place] [address] 01/08/2025 10:00 AM EDT Office Visit [facility] ADULT DENTAL [address] [place] [address] Ulises Chiquita [address] [place] [address] documented as of this encounter Visit Diagnoses Not on filedocumented in this encounter Additional Health Concerns Assessment Noted Time PHQ-9 Depression Total Score: 6 05/08/19 23 10:33 AM EST documented as of this encounter Care Teams Documentation Clerk Relationship Specialty Start Date End Date Nathalie Hsu MD [address] [place] [address] PCP - General Family Medicine 09/27/13 Shannan Barrow, RN [address] [place] [address] Registered Nurse 02/29/[address]rd [place] [address] Gastroenterology 03/15/24 Tonya Poole Yeast Cake CutterManager Wellness 01/19/24 Raman ([facility]) Registered Nurse 02/29/24 Marcos Verdin MD [place] [facility] [address] [place] [address] Cardiology 03/10/24 Omid Vincent Psychiatry 03/15/24 documented as of this encounter
--- OUTSIDE RECORDS SUMMARY | 2024-07-18 03:03 | XMS_ITS | Encounter Summary ---
Author Organization [employer] Address [address] [place] [address] Care Team Providers Care Clinical Advisor Name Role Phone Nathalie Hsu MD Primary Care Provider [phone] Shannan Barrow RN Unavailable [phone] Lisbeth Johnson Unavailable Reason for Visit * Reason Comments AUD F/U Encounter Details Date Type Department Care Team (Late st Contact Info) Description 07/14/2024 1:00 PM EDT Office Visit [facility] MEDICINE [address] [place], [place] [phone] Renny Holloway MD [address] [place] [address] Alcohol use disorder, severe, dependence (CMS/HCC) (Primary [...] 10:18 AM EST documented in this encounter Progress Notes * Renny Holloway MD - 07/14/2024 1:00 PM EDT AUD PHYSICIAN VISIT 07/14/2024 UTOX from [facility] (07/07/2024): POS BZO Patient with AUD here for a follow-up. Last tele-visit was 1 month ago. Patient was last evaluated in-person by this provider on 11/26/2023. Since then he was hospitalized at [facility] in 02/2024 with acute liver failure with elevated ETOH level. AST/ALT were up to 9380/5465. Had waxing and waning hapatic encephalopahty. Also developed EDGAR with peak Cr at 3.68 with hypernatremia. These values have markedly improved. Received 2 units of pRBC during his hospitalization. Also was treated for aspiration PNA. His most recent labs (04/14/2024) showed BUN/Cr 20/1.16, N+ 138, AST/ALT 35/28, Tbili 1.6 (was up to14.7), H/H 13.6/40.6, and PLT 271. Also had Abdominal U/S (04/14/2024) which showed mild diffusely increased hepatic parenchymal echogenicity, suggestive of mild steatosis; no focal suspicious lesion; no biliary abnormality; mild adenomyomatosis of the gallbladder; 0.8 cm simple cyst right kidney. He met with GI recently for his cirrhosis follow up. Currently continuing with Lactulose. CT (01/2024) at [facility] documented to have no focal liver lesion. Currently on anticoagulation for a mechanical valve. Admits to drinking, but significantly reduced the amount to 4-5 beers since his hospital discharge. States he can have 1-2 weeks of sobriety, in-between his drinks. Would like to continue with Acamprosate Rx. Also smokes 1/3 - 1/2 PPD. Interested in Nicotine substitute. PREVIOUS HPI (11/2023): Patient presents for an AUD follow up. Recent hospital admission due to a fall at his home. States he does not recall the event, but documented as a mechanical fall. He denies being intoxicated at the time of the event. Was admitted at [facility] (11/05 - 11/16/2023) and found to have multiple rib fractures (left 2, 3, 4, 6, 7, 8, & 10 ribs), closed lumbar vertebral fractures (transverse processes of L2/L3/L4), hyponatremia (improved with IVF), EDGAR (improved from Cr 2.6 to 0.79 after IVF), and supratherapeutic INR at 8.7. Denies any GI bleeding or hemorrhage concerns. Most recent INR was 1.80 (11/24/2023). While inpatient, he was placed on a alcohol withdrawal protocol with Ativan/Diazepam. It was documented that he was intermittently agitated and delirious, but his MS improved towards the end of his admission. He was evaluated by Trauma and Neurosurgery teams. States still with some rib pain with deep inspiration, but tolerable. He started Acamprosate Rx in 06/09/2023. States he is adherent with the medication. States he still drinks 4 Coors Lights every few days, but this provider suspect under-reporting his alcohol consumption. Denies hard liquor use since 05/17/2023. Feels Acamprosate is working well for him as he no longer had cravings after 4 beers (12 oz size). Would like to continue the medication. Feels he cannot completely stop beers. Previously tried alcohol-free beers, but did not like it. Underlying insomnia, asthma, CHF/CM (EF 25-30%), HTN, h/o heart block on pacemaker, mechanical aortic valve replacement, paroxysmal atrial fibrillation, Harrell's esophagus, history of GI bleed, GERD, EDGAR, h/o thrombocytopenia, anemia, LBP, h/o subarachnoid hemorrhage, INGRIS, MDD, h/o cocaine use disorder, h/o AAA repair, and on anticoagulation. Alcohol use history: Started drinking at age 16 No previous history of inpatient detox/rehab (h/o being on the alcohol withdrawal protocol when admitted for other medical issues) No outpatient alcohol programs Never had DT or withdrawal seizures Typically dranks 4 nips +/- 6 pack beers every 2-3 days (inconsistent history) Last alcohol consumption was 2 weeks ago Typical withdrawal symptoms include tremors and diarrhea Has VNA to help managing medications daily Physical Exam Pulmonary: Effort: Pulmonary effort is normal. Neurological: Mental Status: He is alert. Psychiatric: Mood and Affect: Mood normal. Behavior: Behavior normal. Omid was seen today for aud f/u . Diagnoses and all orders for this visit: Alcohol use disorder, severe, dependence (CMS/HCC) (Primary) - Hepatic Function Panel; Future - CBC auto differential; Future Tobacco dependence - nicotine (Nicoderm, Step 2) 14 MG/24HR patch; Place 1 patch on the skin 1 (one) time each day at the same time. Patient with AUD for F/U Still drinks alcohol, but report significant reduction in use and cravings since starting Acamprosate Suspect underreporting his alcohol use Would like to resume Acamprosate PO (will continue Rx) Recently hospital visit for acute liver failure Markedly improved lab values currently Recent Abdominal U/S showed mild diffusely increased hepatic parenchymal echogenicity, suggestive of mild steatosis and without focal suspicious lesions Patient inquires about how to improve his liver function Discussed about complete cessation from alcohol DSM-5 AUD Score of 11 at the intake (severe) Discussed various treatment options Was interested in Vivitrol injection, but decided not to pursue due to hematoma/ecchymosis concerns(currently on anticoagulation with frequent supratherapeutic INR) Discussed about the risks of alcohol withdrawal in a home setting, including DT, seizure and Gradual taper of alcohol recommended if an event of relapse; alcohol-free sprit/beer recommended BH and AA support recommended Nicotine patch also prescribed for his 3 - 12 PPD tobacco use; encourage tobacco cessation Indications for ER and inpatient detox reviewed Advised to contact the clinic with any worsening symptoms Follow-up in 1 month Repeat LFT/CBC This information has been disclosed to you from records protected by federal confidentiality rules (42 CFR Part 2). The federal rules prohibit you from making any further disclosure of information inthis record that identifies a patient as having or having had a substance use disorder either directly, by reference to publicly available information, or through verification of such identification by another person unless further disclosure is expressly permitted by the written consent of the individual whose information is being disclosed or as otherwise permitted by (see2.3.1). The federal rules restrict any use of the information to investigate or prosecute with regard to a crime any patient with a substance use disorder, except as provided at 2.12??(5) and 2.65. documented in this encounter Plan of Treatment Upcoming Encounters Date Type Department Care Team (Late st Contact Info) Description 08/03/2024 8:00 AM EDT Office Visit [facility] ADULT DENTAL [address] [place] [address] Panchito Lamas DDS [address] [place] [address] 08/11/2024 1:15 PM EDT Office Visit [facility] MEDICINE [address] [place] [address] Renny Holloway MD [address] [place] [address] 11/09/2024 1:00 PM EDT Office Visit [facility] OPTOMETRY [address] [place] [address] Seth, Zabrina, OD [address] [place] [address] 01/08/2025 10:00 AM EDT Office Visit [facility] ADULT DENTAL [address] [place] [address] Adalberto Montgomeryaris [address] [place] [address] documented as of this encounter Procedures Procedure Name Priority Date/Time Associated Diagnosis Comments CBC WITH AUTO DIFFERENTIAL Routine 07/14/2024 1:49 PM EDT Alcohol use disorder, severe, dependence (CMS/HCC) HEPATIC FUNCTION PANEL Routine 07/14/2024 1:49 PM EDT Alcohol use disorder, severe, dependence (CMS/HCC) documented in this encounter Results * (ABNORMAL) CBC auto differential (07/14/2024 1:49 PM EDT) White Blood Count 9.1 4.8 - 10.8 X10*3/uL [facility] Red Blood Count 4.59(L) 4.60 - 5.80 X10*6/uL [facility] Hemoglobin 14.3 14.0 - 18.0 g/dl [facility] Hematocrit 41.7(L) 42.0 - 52.0 % [facility] Mean Corpuscular Volume 90.8 80.0 - 98.0 fL [facility] Mean Corpuscular Hemoglobin 31.2 27.0 - 33.0 pg [facility] Mean Corpuscular HGB Conc 34.3 31.0 - 36.0 g/dl [facility] Red Cell Distribution Width 14.1 11.0 - 16.0 % [facility] Platelet Count 246 160 - 400 X10*3/uL [facility] Mean Platelet Volume 9.1(L) 9.4 - 12.4 fL [facility] Neutrophils Percent Auto 56.4 45 - 73 % [facility] Imm Gran Pct Auto 0.7(H) 0.0 - 0.4 % [facility] Lymphocytes Percent Auto 31.8 20 - 40 % [facility] Monocytes Percent Auto 7.7 2 - 11 % [facility] Eosinophils Percent Auto 2.4 0 - 4 % [facility] Basophils Percent Auto 1.0 0 - 2 % [facility] NRBC Pct Auto 0.0 0.0 - 0.2 /100WBC [facility] Neutrophils Absolute Auto 5.1 2.0 - 8.3 x10*3/uL [facility] Imm Gran Abs Auto 0.06(H) 0.00 - 0.03 X10*3/uL [facility] Lymphocytes Absolute Auto 2.9 1.2 - 4.9 X10*3/uL [facility] Monocytes Absolute Auto 0.7 0.1 - 1.2 X10*3/uL [facility] Eosinophils Absolute Auto 0.2 0.0 - 0.4 X10*3/uL [facility] Basophils Absolute Auto 0.1 0.0 - 0.2 X10*3/uL [facility] NRBC Abs Auto 0.000 0.0 - 0.012 X10*3/uL [facility] Blood Venous blood specimen / Unknown 07/14/2024 1:49 PM EDT 07/14/2024 3:58 PM EDT us Renny Holloway MD LAB BLOOD ORDERABLES Final Resul t [facility] [address] [place] [address] [phone] * Hepatic Function Panel (07/14/2024 1:49 PM EDT) Bilirubin, Direct 0.3 0.0 - 0.5 mg/dL [facility] Blood Venous blood specimen / Unknown 07/14/2024 1:49 PM EDT 07/14/2024 3:58 PM EDT us Renny Holloway MD LAB BLOOD ORDERABLES Final Resul t [facility] [address] [place] [address] [phone] documented in this encounter Visit Diagnoses Diagnosis Alcohol use disorder, severe, dependence (CMS/HCC)- Primary Tobacco dependence Tobacco use disorder documented in this encounter Additional Health Concerns Assessment Noted Time PHQ-9 Depression Total Score: 0 06/09/19 24 9:13 AM EST documented as of this encounter Care Teams Clinical Advisor Relationship Specialty Start Date End Date Nathalie Hsu MD [address] [place] [address] PCP - General Family Medicine 09/27/13 Shannan Barrow, RN [address] [place] [address] Registered Nurse 02/29/24 Lisbeth Johnson [address] [place] [address] Drive 3rd [place] [address] Gastroenterology 03/15/24 Tonya Poole Pottery StriperPhysical Education Aide 01/19/24 Raman ([facility]) Registered Nurse 02/29/24 Marcos Verdin MD [place] [facility] [address] [place], [place] Cardiology 03/10/24 Omid Vincent Psychiatry 03/15/24 documented as of this encounter
--- OUTSIDE RECORDS SUMMARY | 2024-07-18 03:03 | XMS_ITS | Encounter Summary ---
Author Organization [employer] [facility] Address [address] [place] [address] Care Team Providers Care Cash Register Repairer Name Role Phone Nathalie Hsu MD Primary Care Provider [phone]- [phone] Shannan Barrow RN Unavailable [phone] Lisbeth Johnson Unavailable Encounter Details Date Type Department Care Team (Late st Contact Info) Description 05/12/2022 Abstract [facility] MEDICINE [address] [place] [phone] Nathalie Hsu MD [address] [place] [address] Social History Tobacco Use Types Packs/Day Years [...] Description 08/03/2024 8:00 AM EDT Office Visit [facility] ADULT DENTAL [address] [place] [address] Panchito Lamas, DDS [address] [place] [address] 08/11/2024 1:15 PM EDT Office Visit [facility] MEDICINE [address] [place] [address] Renny Holloway MD [address] [place] [address] 11/09/2024 1:00 PM EDT Office Visit [facility] OPTOMETRY [address] [place] [address] Zabrina Ann, OD [address] [place] [address] 01/08/2025 10:00 AM EDT Office Visit [facility] ADULT DENTAL [address] [place] [address] Ulises, Chiquita [address] [place] [address] documented as of this encounter Procedures Procedure [...] documented as of this encounter Care Teams Cash Register Repairer Relationship Specialty Start Date End Date Nathalie Hsu MD [address] [place] [address] PCP - General Family Medicine 09/27/13 Shannan Barrow, KHAI [address] [place] [address] Registered Nurse 02/29/24 Lisbeth Johnson [address] 3rd [place] [address] Gastroenterology 03/15/24 Tonya Poole Core StickerNight Clerk 01/19/24 Raman ([facility]) Registered Nurse 02/29/24 Marcos Verdin MD [place] [facility] [address] [place] [address] Cardiology 03/10/24 Omid Vincent Psychiatry 03/15/24 documented as of this encounter
--- OUTSIDE RECORDS SUMMARY | 2024-07-18 03:03 | XMS_ITS | Encounter Summary ---
Author Organization [employer] Address [address] [place] [address] Care Team Providers Care Analytical Data Scientist Name Role Phone Nathalie Hsu MD Primary Care Provider [phone] Shannan Barrow RN Unavailable [phone] Lisbeth Johnson Unavailable Reason for Visit * Reason Onset Date Comments INR report 03/31/2023 Encounter Details Date Type Department Care Team (Late st Contact Info) Description 03/31/2023 Telephone [facility] MEDICINE [address] [place], [place] [phone] Nathalie Hsu MD [address] [place], [place] [phone] INR report Social History Tobacco Use Types [...] PM EST Tc from Raman VALE with [employer] requesting a call from a nurse to report an INR results. Please contact Raman @ [phone] documented in this encounter Plan of Treatment Upcoming Encounters Date Type Department Care Team (Late st Contact Info) Description 08/03/2024 8:00 AM EDT Office Visit [facility] ADULT DENTAL [address] [place] [address] Panchito Lamas DDS [address] [place] [address] 08/11/2024 1:15 PM EDT Office Visit [facility] MEDICINE [address] [place] [address] Renny Hloloway MD [address] [place] [address] 11/09/2024 1:00 PM EDT Office Visit [facility] OPTOMETRY [address] [place] [address] Zabrina Ann, GEETA [address] [place] [address] 01/08/2025 10:00 AM EDT Office Visit [facility] ADULT DENTAL [address] [place] [address] Ulises, Chiquita [address] [place], [place] [phone] documented as of this encounter Visit Diagnoses Not on filedocumented in this encounter Additional Health Concerns Assessment Noted Time PHQ-9 Depression Total Score: 6 05/08/19 23 10:33 AM EST documented as of this encounter Care Teams Analytical Data Scientist Relationship Specialty Start Date End Date Nathalie Hsu MD [address] [place] [address] PCP - General Family Medicine 09/27/13 Shannan Barrow, KHAI [address] [place] [phone] Registered Nurse 02/29/24 Lisbeth Johnson [address] [place] [address] 3rd [place] [address] Gastroenterology 03/15/24 Tonya Poole Harvesting ManagerDriver Wheelchair 01/19/24 Raman ([facility]) Registered Nurse 02/29/24 Marcos Verdin MD [place] [facility] [address] [place] [address] Cardiology 03/10/24 Omid Vincent Psychiatry 03/15/24 documented as of this encounter
--- NOTE | 2024-07-18 03:52 | ED_ITS ---
HPI - General Adult General Chief complaint: ETOH/Substance Use Stated complaint: ETOH Time Seen by Provider: 07/18/24 01:35 Source: patient Limitations: language barrier History of Present Illness ED Provider: Sandie Sarah PA-C HPI narrative: 64-year-old male with a history of alcohol use disorder, prior alcohol withdrawal, cirrhosis, who presents intoxicated. Patient was picked up by PD, intoxicated in public. Related Data Home Medications ?Medication ?Instructions ?Recorded ?Confirmed melatonin 5 mg tablet 2 tab PO BEDTIME PRN insomnia 10/18/20 01/23/24 atorvastatin 20 mg tablet 20 mg PO DAILY 11/18/20 01/23/24 blood pressure test kit-large #1 ea 11/18/20 02/09/23 lidocaine 5 % topical patch 1 patch topical DAILY 11/18/20 01/23/24 magnesium oxide 400 mg (241.3 mg 400 mg PO BID 11/18/20 01/23/24 magnesium) tablet metoprolol succinate 50 mg 50 mg PO DAILY 11/18/20 01/23/24 tablet,extended release 24 hr pantoprazole 40 mg tablet,delayed 40 mg PO BID 11/18/20 01/23/24 release thiamine HCl (vitamin B1) 100 mg 100 mg PO DAILY 11/18/20 01/23/24 tablet olanzapine 5 mg tablet 1 tab PO BEDTIME 10/10/21 01/23/24 acetaminophen 500 mg tablet 500 mg PO BID PRN Mild Pain (Scale 05/11/22 01/23/24 Score 1-4) albuterol sulfate 90 mcg/actuation 2 puff inhalation Q4H PRN 05/11/22 01/23/24 aerosol inhaler (Ventolin HFA) Respiratory Distress buspirone 10 mg tablet 10 mg PO TID 05/11/22 01/23/24 sacubitril 24 mg-valsartan 26 mg 1 tab PO BID 06/12/22 01/23/24 tablet (Entresto) budesonide-formoterol HFA 160 2 puff inhalation BID 02/09/23 01/23/24 mcg-4.5 mcg/actuation aerosol inhaler (Symbicort) clopidogrel 75 mg tablet 75 mg PO DAILY 05/17/23 01/23/24 acamprosate 333 mg tablet,delayed 666 mg PO BID 09/15/23 01/23/24 release hydroxyzine pamoate 50 mg capsule 100 mg PO BEDTIME PRN insomnia 01/23/24 01/23/24 warfarin 5 mg tablet 5 mg PO DAILY 01/23/24 01/23/24 lactulose 10 gram/15 mL oral 30 ml PO TID 04/28/24 solution warfarin 10 mg tablet 10 mg PO DAILY 07/07/24 Previous Rx's ?Medication ?Instructions ?Recorded furosemide 40 mg tablet 40 mg PO DAILY #30 tabs 05/29/23 rifaximin 550 mg tablet 550 mg PO BID 90 days #180 tabs 03/17/24 Allergies Allergy/AdvReac Type Severity Reaction Status Date / Time lorazepam [From ATIVAN] AdvReac Severe OPPOSITE Verified 07/18/24 01:01 EFFECT PSYCOTIC EFECTS Review of Systems Review of Systems: Unable to obtain secondary to intoxication Yes all other systems are reviewed and are negative [facility] Past Medical History Attestation statement: The following information was validated with the patient. Medical History Sepsis Rhabdomyolysis EDGAR (acute kidney injury) Supratherapeutic INR Fall Acute hyponatremia Intracranial hemorrhage Coronary artery disease Chronic systolic CHF (congestive heart failure) Hypertension Short-segment Harrell's esophagus Pacemaker Skull fracture Alcoholic liver disease Cocaine abuse Alcohol abuse Surgical History Aortic valve replaced S/P CABG (coronary artery bypass graft) H/O aortic valve replacement History of esophagogastroduodenoscopy (EGD) Social History Social History Household Members: None Housing: Apartment Do you presently have visiting nurse or other home services: Yes (vna property insurance inspector) Alcohol intake: current Alcohol intake frequency: a few times a week Alcohol type: beer Comment: pt refused, to have assistance with ambulation, chair and bed alarm Patient Tobacco Use Status: Current everyday Tobacco user Tobacco use type: Cigarette Cigarette Packs Per Day: 1 Cigarettes Per Day: 20.0 Smoked in Last 30 Days: No Second Hand Smoke Exposure: No Use of substances other than those prescribed or required for medical reasons: No Substance Use Type: Marijuana Advance Directives: Yes Advance Directives on File: Yes Advance Directives Date on File: 10/11/21 service: No Current occupational status: unemployed Physical Exam ED Vital Signs: Vital Signs - 24 hr 07/18/24 01:19 Temperature 99.1 F Pulse Rate 99 Respiratory Rate 16 Blood Pressure 101/61 Pulse Oximetry 95 Oxygen Delivery Method Room Air BMI result Body Mass Index 31.6 Const Other: Sleeping, easily woken with verbal stimuli Orientation/consciousness: oriented to person HENMT Other: Alcohol halitosis Resp Effort & Inspection: normal respiratory effort Cardio Other: Normal peripheral perfusion Skin Other: Warm dry no rash Neuro General: oriented to person Psych Other: Intoxicated Medical Decision Making Medical Decision Making MDM Narrative: 64-year-old male with a history of alcohol use disorder, prior alcohol withdrawal, cirrhosis, who presents intoxicated. Patient was picked up by PD, intoxicated in public. The patient was not require a medical assessment, he was intoxicated in public, for his safety he was brought to the emergency department. We will monitor him until he is clinically sober then he will be discharged Discharge Plan Discharge Clinical Impression: Alcohol intoxication Patient Disposition: Home, Self-Care Instructions: Abuse of Alcohol (ED), Alcohol Intoxication (ED) Additional Instructions: You were monitored in the emergency room overnight for your safety, you were discharged in the morning when you were clinically sober. Prescriptions: No Action rifaximin 550 mg tablet 550 mg PO BID 90 Days Qty: 180 1RF melatonin 5 mg tablet 2 tab PO BEDTIME PRN (Reason: insomnia) olanzapine 5 mg tablet 1 tab PO BEDTIME acetaminophen 500 mg Tablet 500 mg PO BID PRN (Reason: Mild Pain (Scale Score 1-4)) buspirone 10 mg Tablet 10 mg PO TID albuterol sulfate [Ventolin HFA] 90 mcg/actuation Hfa Aerosol Inhaler 2 puff INHALATION Q4H PRN (Reason: Respiratory Distress) acamprosate 333 mg tablet,delayed release (DR/EC) 666 mg PO BID hydroxyzine pamoate 50 mg capsule 100 mg PO BEDTIME PRN (Reason: insomnia) warfarin 5 mg tablet 5 mg PO DAILY budesonide-formoterol [Symbicort] 160-4.5 mcg/actuation HFA aerosol inhaler 2 puff inhalation BID clopidogrel 75 mg tablet 75 mg PO DAILY furosemide 40 mg Tablet 40 mg PO DAILY Qty: 30 0RF Protocol: Hold for SBP< HOLD for SBP < : 90 pantoprazole 40 mg tablet,delayed release (DR/EC) 40 mg PO BID magnesium oxide 400 mg (241.3 mg magnesium) tablet 400 mg PO BID thiamine HCl (vitamin B1) 100 mg tablet 100 mg PO DAILY metoprolol succinate 50 mg tablet extended release 24 hr 50 mg PO DAILY atorvastatin 20 mg tablet 20 mg PO DAILY (DME) blood pressure test kit-large Kit See Rx Instructions .ROUTE DIRECTED Qty: 1 Rx Instructions: As directed lidocaine 5 % adhesive patch,medicated 1 patch topical DAILY Protocol: Apply to: Apply to: AFFECTED AREA Entresto 24-26 mg tablet 1 tab PO BID lactulose 10 gram/15 mL solution 30 ml PO TID warfarin 10 mg tablet 10 mg PO DAILY Print Language: Persian
--- NOTE | 2024-07-18 06:03 | PC.NURSE ---
patient ambulatory to bathroom with steady gait, very confused about event of last night. Has no memory of where he was only that he had been drinking. No wallet keys or phone on person on arrival. Attempted to call Elizabeth for picked edge sewing machine operator, patient did not want Roxy called.
[2024-07-18 06:05] VITALS: BP 124/66; PULSE 96; RESP 16; TEMP 37.2; O2SAT 93
[2024-07-18 06:24] VITALS: BP 124/66; PULSE 96; RESP 16; TEMP 37.2; O2SAT 93
--- NOTE | 2024-07-18 07:29 | PC.NURSE ---
pt being discharged at this time. transportation arranged via ED transportation van.
== END 2024-07-18 07:30 | disposition home or self-care (01) ==
PROVIDERS: Emergency Provider Internal Medicine
DX: F10.129 Alcohol abuse with intoxication, unspecified (principal); Y90.9 Presence of alcohol in blood, level not specified; I11.0 Hypertensive heart disease with heart failure; I50.22 Chronic systolic (congestive) heart failure; I25.10 Atherosclerotic heart disease of native coronary artery without angina pectoris; Z95.0 Presence of cardiac pacemaker
CPT/HCPCS: 99283; 99284

== ENCOUNTER 2024-07-28 13:32 | Outpatient (AMB) | payer MEDICAID, SELFPAY ==
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
[2024-07-28 13:53] VITALS: BP 120/72; PULSE 84; BMI 25.8
--- OUTSIDE RECORDS SUMMARY | 2024-07-28 14:14 | XMS_ITS | Encounter Summary ---
Author Organization [facility] Address [address] [place] [address] Care Team Providers Care Promotional Demonstrator Name Role Phone Nathalie Hsu MD Primary Care Provider [phone] Shannan Barrow RN Unavailable [phone] Lisbeth Johnson Unavailable Reason for Visit * Reason Comments Med Refill Encounter Details Date Type Department Care Team (Late st Contact Info) Description 03/30/2024 Refill [facility] [address] [place], [place] [phone] Nathalie Hsu MD [address] [place], [place] [phone] History of alcohol abuse; Hypomagnesemia; Mild intermittent [...] Visit [facility] [address] [place] [address] Panchito Lamas DDS [address] [place] [address] 08/11/2024 1:15 PM EDT Office Visit [facility] [address] [place] [address] Renny Holloway MD [address] [place] [address] 11/09/2024 1:00 PM EDT Office Visit [facility] OPT[facility] [address] [place] [address] Zabrina Ann, GEETA [address] [place] [address] 01/08/2025 10:00 AM EDT Office Visit [facility] [address] [place] [address] Chiquita Montgomery [address] [place] [address] documented as of this encounter Visit Diagnoses Diagnosis History of alcohol abuse Nondependent alcohol abuse, in remission Hypomagnesemia Disorders of magnesium metabolism Mild intermittent asthma, unspecified whether complicated documented in this encounter Additional Health Concerns Assessment Noted Time PHQ-9 Depression Total Score: 0 06/09/19 24 9:13 AM EST documented as of this encounter Care Teams Promotional Demonstrator Relationship Specialty Start Date End Date Nathalie Hsu MD [address] [place] [address] PCP - General Family Medicine 09/27/13 Shannan Barrow, KHAI [address] [place] [address] Registered Nurse 02/29/24 Lisbeth Johnson [address] [place] [address] Drive 3rd [place] [address] Gastroenterology 03/15/24 Tonya Poole Drum FillerGiver 01/19/24 Raman (A [facility]) Registered Nurse 02/29/24 Marcos Verdin MD [facility] [address] [place] [address] Cardiology 03/10/24 Omid Vincent Psychiatry 03/15/24 documented as of this encounter
--- OUTSIDE RECORDS SUMMARY | 2024-07-28 14:14 | XMS_ITS | Encounter Summary ---
Author Organization [facility] Address [address] [place] [address] Care Team Providers Care Experimental Technician Name Role Phone Nathalie Hsu MD Primary Care Provider [phone] Shannan Barrow RN Unavailable [phone] Lisbeth Johnson Unavailable Reason for Visit * Reason Onset Date Comments critical lab 07/25/2024 Encounter Details Date Type Department Care Team (Late st Contact Info) Description 07/25/2024 Telephone [facility] [address] [place] [address] Nathalie Hsu MD [address] [place], [place] [phone] critical lab Social History Tobacco Use Types [...] Telephone Encounter - Shannan Barrow RN - 07/25/2024 3:42 PM EDT S: Pt is due for PT/INR today due to hx of DVT's. Pt's target INR is 2.5-3.5. This RN spoke with KAVIN Duff who denies any new medications or changes in diet. However, pt did have, a few drinks overthe weekend. Has appt with GI tomorrow regarding his liver so states isn't going to drink today. JASMEETA continues to encourage abstinence in alcoholic beverages. Pt has been compliant with INR draws. O: INR today is: 3.6. Current plan: 2.5mg , , Sa/ 5mg the rest of the week. A: Hx of DVT Risk for blood clot due to sub therapeutic INR Hx of afib Hx of prosthetic heart valve P: Given that pt with + EtOH use, INR is relatively stable. Advised to continue same dose and recheck INR 08/01/24. Please try to abstain from alcohol use. VNA aware of dosing and draw date. Shannan Barrow RN * Telephone Encounter - Yesica Zamora RN - 07/25/2024 3:29 PM EDT Incoming call from Sherin RIDLEY ,visiting nurse . Sherin stated the pt 's INR today is 3.6 today . A warm hand off call was placed to Shannan peters team . Will route this message to the lorraine team nurses for review . documented in this encounter Plan of Treatment Upcoming Encounters Date Type Department Care Team (Late st Contact Info) Description 08/03/2024 8:00 AM EDT Office Visit [facility] [address] [place] [address] Panchito Lamas DDS [address] [place] [address] 08/11/2024 1:15 PM EDT Office Visit [facility] [address] [place] [address] Renny Holloway MD [address] [place] [address] 11/09/2024 1:00 PM EDT Office Visit [facility] [address] [place] [address] Zabrina Ann, GEETA [address] [place] [address] 01/08/2025 10:00 AM EDT Office Visit [facility] [address] [place] [address] Chiquita Montgomery [address] [place] [address] documented as of this encounter Procedures Procedure Name Priority Date/Time Associated Diagnosis Comments PROTHROMBIN TIME-INR Routine 07/25/2024 documented in this encounter Results * (ABNORMAL) Prothrombin Time-INR (07/25/2024) INR 3.60(H) 2.50 - 3.50 EXTERNAL LAB Protime EXTERNAL LAB Blood Venous blood specimen / Unknown Nathalie Hsu MD LAB BLOOD ORDERABLES Final Result EXTERNAL LAB documented in this encounter Visit Diagnoses Diagnosis History of prosthetic heart valve documented in this encounter Additional Health Concerns Assessment Noted Time PHQ-9 Depression Total Score: 0 06/09/19 24 9:13 AM EST documented as of this encounter Care Teams Experimental Technician Relationship Specialty Start Date End Date Nathalie Hsu MD [address] [place] [address] PCP - General Family Medicine 09/27/13 Shannan Barrow, KHAI [address] [place] [address] Registered Nurse 02/29/24 Lisbeth Johnson [address] [place] [address] 3rd [place] [address] Gastroenterology 03/15/24 Tonya Poole Associate Professor Of PathologyPlaster Molder 01/19/24 Raman (A [facility]) Registered Nurse 02/29/24 Marcos Verdin MD [facility] [address] [place] [address] Cardiology 03/10/24 Omid Vincent Psychiatry 03/15/24 documented as of this encounter
--- OUTSIDE RECORDS SUMMARY | 2024-07-28 14:14 | XMS_ITS | Encounter Summary ---
Author Organization [facility] Address [address] [place] [address] Care Team Providers Care Healthcare Management Consultant Name Role Phone Nathalie Hsu MD Primary Care Provider [phone] Shannan Barrow RN Unavailable [phone] Lisbeth Johnson Unavailable Reason for Visit * Reason Onset Date Comments Dr. Lamas medication 06/20/2024 Encounter Details Date Type Department Care Team ([facility] st Contact Info) Description 06/20/2024 Telephone [facility] [address] [place], [place] [phone] Panchito Lamas DDS [address] [place], [place] [phone] Dr. Lamas medication Social History Tobacco Use [...] Description 08/03/2024 8:00 AM EDT Office Visit [facility] [address] [place] [address] Panchito Lamas DDS [address] [place] [address] 08/11/2024 1:15 PM EDT Office Visit [facility] [address] [place] [address] Renny Holloway MD [address] [place] [address] 11/09/2024 1:00 PM EDT Office Visit [facility] [address] [place] [address] Zabrina Ann, OD [address] [place] [address] 01/08/2025 10:00 AM EDT Office Visit [facility] [address] [place] [address] Ulises, Chiquita [address] [place] [address] documented as of this encounter Visit Diagnoses Not on filedocumented in this encounter Additional Health Concerns Assessment Noted Time PHQ-9 Depression Total Score: 0 06/09/19 24 9:13 AM EST documented as of this encounter Care Teams Healthcare Management Consultant Relationship Specialty Start Date End Date Nathalie Hsu MD [address] [place] [address] PCP - General Family Medicine 09/27/13 Shannan Barrow, KHAI [address] [place] [address] Registered Nurse 02/29/24 Lisbeth Johnson [address] [place] [address] Drive 3rd [place] [address] Gastroenterology 03/15/24 Tonya Poole Cleat FeederElectronic Industrial Controls Mechanic 01/19/24 Raman [facility]) Registered Nurse 02/29/24 MD [facility] [address] [place] [address] Cardiology 03/10/24 Omid Vincent Psychiatry 03/15/24 documented as of this encounter
--- OUTSIDE RECORDS SUMMARY | 2024-07-28 14:14 | XMS_ITS | Encounter Summary ---
Author Organization [employer] Address [address] [place] [address] Care Team Providers Care Installer Technician Name Role Phone Nathalie Hsu MD Primary Care Provider [phone]- [phone] Shannan Barrow RN Unavailable [phone] Lisbeth Johnson Unavailable Reason for Visit * Reason Onset Date Comments Hospital Follow-up 03/07/2024 Medication Question 03/07/2024 Encounter Details Date Type Department Care Team (Late st Contact Info) Description 03/07/2024 Telephone [facility] MEDICINE [address] [place], [place] [phone] Nathalie Hsu MD [address] [place], [place] [phone] Hospital Follow-up; Medication Question Social History Tobacco [...] stating wrong number and he doesn't speak niuean (was not the pt). Telephone call placed [...] - 03/07/2024 2:00 PM EST Tc from [facility] with [facility] Licensed Clinical Psychologist requesting a HDF appt. Pt is concerned about medication melatonin 5 MG tablet he still has trouble sleeping and doesn't want to stop taking. Hospital: [facility] Date of admission: 02/11 Discharge date: 03/01 Diagnosed: Liver Issues Contact pt to schedule at [phone] *Send message to [place] Clinical Care Coordinators documented in this encounter Plan of Treatment Upcoming Encounters Date Type Department Care Team (Late st Contact Info) Description 08/03/2024 8:00 AM EDT Office Visit [facility] ADULT DENTAL [address] [place] [address] Panchito Lamas DDS [address] [place] [address] 08/11/2024 1:15 PM EDT Office Visit [facility] MEDICINE [address] [place] [address] Renny Holloway MD [address] [place] [address] 11/09/2024 1:00 PM EDT Office Visit [facility] OPTOMETRY [address] [place] [address] Zabrina Ann OD 230 [place] [address] 01/08/2025 10:00 AM EDT Office Visit [facility] ADULT DENTAL [address] [place] [address] Chiquita Montgomery [address] [place] [address] documented as of this encounter Visit Diagnoses Not on filedocumented in this encounter Additional Health Concerns Assessment Noted Time PHQ-9 Depression Total Score: 0 06/09/19 24 9:13 AM EST documented as of this encounter Care Teams Installer Technician Relationship Specialty Start Date End Date Nathalie Hsu MD [address] [place] [address] PCP - General Family Medicine 09/27/13 Shannan Barrow, RN [address] [place] [address] Registered Nurse 02/29/24 Lisbeth Johnson [address] [place] [address] Drive 3rd [place] [address] Gastroenterology 03/15/24 Tonya Poole Traffic SuperintendentDuck Farmer 01/19/24 Raman ([facility]) Registered Nurse 02/29/24 Marcos Verdin MD [facility] [address] [place] [address] Cardiology 03/10/24 Omid Vincent Psychiatry 03/15/24 documented as of this encounter
--- OUTSIDE RECORDS SUMMARY | 2024-07-28 14:14 | XMS_ITS | Encounter Summary ---
Author Organization [employer] Address [address] 7t [place] [address] Care Team Providers Care Night Monitor Name Role Phone Nathalie Hsu MD Primary Care Provider [phone]- [phone] Shannan Barrow RN Unavailable [phone] Lisbeth Johnson Unavailable Reason for Visit * Reason Onset Date Comments PT-1 05/26/2024 Encounter Details Date Type Department Care Team (Late st Contact Info) Description 05/26/2024 Telephone [facility] MEDICINE [address] [place], [place] [phone] Nathalie Hsu MD [address] [place], [place] [phone] PT-1 Social History Tobacco Use Types Packs/Day [...] Yes Provider name or facility name: [address] [address] Escort needed: Y/N: No Do you have a wheelchair: Y/N: No If yes- Manual or electric: N/A Visits: (amount of visits) ( x monthly, weekly, daily) 2 times per month. documented in this encounter Plan of Treatment Upcoming Encounters Date Type Department Care Team (Late st Contact Info) Description 08/03/2024 8:00 AM EDT Office Visit [facility] ADULT DENTAL [address] [place] [address] Panchito Lamas DDS [address] [place] [address] 08/11/2024 1:15 PM EDT Office Visit [facility] MEDICINE [address] [place] [address] Renny Holloway MD [address] [place] [address] 11/09/2024 1:00 PM EDT Office Visit [facility] OPTOMETRY [address] [place] [address] Seth, Zabrnia, OD [address] [place] [address] 01/08/2025 10:00 AM EDT Office Visit [facility] ADULT DENTAL [address] [place] [address] Ulises, Chiquita [address] [place] [address] documented as of this encounter Visit Diagnoses Not on filedocumented in this encounter Additional Health Concerns Assessment Noted Time PHQ-9 Depression Total Score: 0 06/09/19 24 9:13 AM EST documented as of this encounter Care Teams Night Monitor Relationship Specialty Start Date End Date Nathalie Hsu MD [address] [place] [address] PCP - General Family Medicine 09/27/13 Shannan Barrow, KHAI [address] [place] [address] Registered Nurse 02/29/[address] 3rd [place] [address] Gastroenterology 03/15/24 Tonya Poole Centrifuge Separator OperatorManager Visual 01/19/24 Raman ([facility]) Registered Nurse 02/29/24 Marcos Verdin MD [place] [facility] [address] [place] [address] Cardiology 03/10/24 Omid Vincent Psychiatry 03/15/24 documented as of this encounter
--- OUTSIDE RECORDS SUMMARY | 2024-07-28 14:14 | XMS_ITS | Encounter Summary ---
Author Organization [employer] Address [address] 7[address] [place] [address] Care Team Providers Care Compensation Supervisor Name Role Phone Nathalie Hsu MD Primary Care Provider [phone] Shannan Barrow RN Unavailable [phone] Lisbeth Johnson Unavailable Reason for Visit * Reason Comments Med Refill Encounter Details Date Type Department Care Team (Late st Contact Info) Description 07/04/2024 Refill [facility] ADULT DENTAL [address] [place] [address] Panchito Lamas DDS [address] [place], [place] [phone] Severe dental caries; Dental root caries; Advanced [...] 8:00 AM EDT Office Visit [facility] ADULT DENTAL [address] [place] [address] Panchito Lamas DDS [address] [place] [address] 08/11/2024 1:15 PM EDT Office Visit [facility] MEDICINE [address] [place] [address] Renny Holloway MD 230 [place] [address] 11/09/2024 1:00 PM EDT Office Visit [facility] OPTOMETRY [address] [place] [address] Zabrina Ann, OD 230 [place] [address] 01/08/2025 10:00 AM EDT Office Visit [facility] ADULT DENTAL [address] [place], [place] [phone] Chiquita Montgomery [address] [place] [address] documented as of this encounter Visit Diagnoses Diagnosis Severe dental caries Dental root caries Advanced periodontitis Excessive attrition of teeth, limited to enamel Missing teeth, acquired Dental calculus Accretions on teeth documented in this encounter Additional Health Concerns Assessment Noted Time PHQ-9 Depression Total Score: 0 06/09/19 24 9:13 AM EST documented as of this encounter Care Teams Compensation Supervisor Relationship Specialty Start Date End Date Nathalie Hsu MD [address] [place] [address] PCP - General Family Medicine 09/27/13 Shannan Barrow, KHAI [address] [place] [address] Registered Nurse 02/29/24 Lisbeth Johnson [address] [place] [address] [address] [place] [address] Gastroenterology 03/15/24 Tonya Poole Literary WriterSpecial Education Professor 01/19/24 Raman ([facility]) Registered Nurse 02/29/24 Marcos Verdin MD [place] [facility] [address] [place] [address] Cardiology 03/10/24 Omid Vincent Psychiatry 03/15/24 documented as of this encounter
--- OUTSIDE RECORDS SUMMARY | 2024-07-28 14:15 | XMS_ITS | Encounter Summary ---
Author Organization [employer] Address [address] [facility] [place] [address] Care Team Providers Care Lump Room Supervisor Name Role Phone Nathalie Hsu MD Primary Care Provider [phone]- [phone] Shannan Barrow RN Unavailable [phone] Lisbeth Johnson Unavailable Reason for Visit * Reason Onset Date Comments Coagulation Disorder 05/12/2023 Encounter Details Date Type Department Care Team (Late st Contact Info) Description 05/12/2023 Telephone [facility] MEDICINE [address] [place], [place] [phone] Nathalie Hsu MD [address] [place], [place] [phone] Coagulation Disorder Social History Tobacco Use Types [...] to report INR. Please contact raman at [phone] documented in this encounter Plan of Treatment Upcoming Encounters Date Type Department Care Team (Late st Contact Info) Description 08/03/2024 8:00 AM EDT Office Visit [facility] ADULT DENTAL [address] [place] [address] Panchito Lamas DDS [address] [place] [address] 08/11/2024 1:15 PM EDT Office Visit [facility] MEDICINE [address] [place] [address] Renny Holloway MD [address] [place] [address] 11/09/2024 1:00 PM EDT Office Visit [facility] OPTOMETRY [address] [place] [address] Zabrina Ann, GEETA [address] [place] [address] 01/08/2025 10:00 AM EDT Office Visit [facility]ULT [facility] [address] [place] [address] Chiquita Montgomery [address] [place], [place] [phone] documented as of this encounter Visit Diagnoses Not on filedocumented in this encounter Additional Health Concerns Assessment Noted Time PHQ-9 Depression Total Score: 6 05/08/19 23 10:33 AM EST documented as of this encounter Care Teams Lump Room Supervisor Relationship Specialty Start Date End Date Nathalie Hsu MD [address] [place], [place] [phone] PCP - General Family Medicine 09/27/13 Shannan Barrow, KHAI [address] [place] [phone] Registered Nurse 02/29/24 Lisbeth Johnson [address] [place] [address] Drive 3rd [place] [address] Gastroenterology 03/15/24 Tonya Poole Digital X Ray Service EngineerCupboard Builder 01/19/24 Raman ([facility]) Registered Nurse 02/29/24 Marcos Verdin MD [place] [facility] [address] [place] [address] Cardiology 03/10/24 Omid Vincent Psychiatry 03/15/24 documented as of this encounter
--- OUTSIDE RECORDS SUMMARY | 2024-07-28 14:15 | XMS_ITS | Encounter Summary ---
Author Organization [employer] [facility] Address [address] [facility] 7t [place] [address] Care Team Providers Care Lye Bath Operator Name Role Phone Nathalie Hsu MD Primary Care Provider + [phone] Shannan Barrow RN Unavailable [phone] Lisbeth Johnson Unavailable Encounter Details Date Type Department Care Team (Late st Contact Info) Description 04/01/2022 Orders Only [facility] MEDICINE [address] [place] [phone] Anabell Weston, KHAI Social History Tobacco Use [...] Description 08/03/2024 8:00 AM EDT Office Visit [facility] ADULT DENTAL [address] [place] [phone] Panchito Lamas DDS [address] [place], [place] [phone] 08/11/2024 1:15 PM EDT Office Visit [facility] MEDICINE [address] [place] [address] Renny Holloway MD 230 [place], [place] [phone] 11/09/2024 1:00 PM EDT Office Visit [facility] OPTOMETRY [address] [place] [address] Zabrina Ann, OD [address] [place] [address] 01/08/2025 10:00 AM EDT Office Visit [facility] ADULT DENTAL [address] [place] [address] Ulises, Chiquita [address] [place] [address] documented as of this encounter Visit Diagnoses Not on filedocumented in this encounter Care Teams Lye Bath Operator Relationship Specialty Start Date End Date Nathalie Hsu MD [address] [place] [address] PCP - General Family Medicine 09/27/13 Shannan Barrow, KHAI [address] [place] [address] Registered Nurse 02/29/24 Lisbeth Johnson [address] [place] [address] Drive 3rd [place] [address] Gastroenterology 03/15/24 Tonya Poole Public Transit SpecialistK9 Handler 01/19/24 Raman ([facility]) Registered Nurse 02/29/24 Marcos Verdin MD [facility] [address] [place] [address] Cardiology 03/10/24 Omid Vincent Psychiatry 03/15/24 documented as of this encounter
--- OUTSIDE RECORDS SUMMARY | 2024-07-28 14:15 | XMS_ITS | Clinical Summary ---
Author Organization [employer] Address [address] [place] [address] Care Team Providers Care Qa Tech Name Role Phone Nathalei Hsu MD Primary Care Provider [phone] Shannan Barrow RN Unavailable [phone] Lisbeth Johnson Unavailable Allergies Active Allergy [...] insomnia Take by mouth. Dr. Vincent Active chlorhexidine (Peridex) 0.12 % solution Swish [...] SWALLOW 10.2 g 2 06/29/19 25 Active ferrous sulfate 325 (65 Fe) [...] 28 patch 2 07/15/19 25 025 Active lactulose (Chronulac) 10 GM/15ML solutionIndicat ions:Alcoholic liver disease (CMS/HCC) TAKE 30 ML BY MOUTH THREE TIMES DAILY 237 mL 3 07/21/19 25 Active melatonin 5 MG tabletIndicatio ns:Primary insomnia TAKE 2 TABLETS BY MOUTH EVERY DAY AT BEDTIME NEEDED FOR SLEEP 60 tablet 3 07/21/19 25 Active warfarin (Coumadin) 5 MG tabletIndicatio ns:History of prosthetic heart valve TAKE 1 TO 2 TABLETS BY MOUTH EVERY DAY DIRECTED BY COUMADIN CLINIC 60 tablet 2 03/06/20 24 025 Discontinued melatonin 5 MG tabletIndicatio ns:Primary insomnia TAKE 2 TABLETS BY MOUTH EVERY DAY AT BEDTIME NEEDED FOR SLEEP 60 tablet 3 04/11/19 25 025 Discontinued(R eorder (will not trigger notification to Pharmacy)) ferrous sulfate 325 (65 Fe) MG EC tabletIndicatio ns:Anemia, unspecified type TAKE 1 TABLET BY MOUTH EVERY DAY DO NOT BREAK, CRUSH, DISSOLVE OR CHEW 90 tablet 04/11/19 25 025 Discontinued(R eorder (will not trigger notification to Pharmacy)) lactulose (Chronulac) 10 GM/15ML solutionIndicat ions:Alcoholic liver disease (CMS/HCC) TAKE 30 ML BY MOUTH THREE TIMES DAILY 237 mL 3 05/30/19 25 025 Discontinued lactulose (Chronulac) 10 GM/15ML solutionIndicat ions:Alcoholic liver disease (CMS/HCC) TAKE 30 ML BY MOUTH THREE TIMES DAILY 237 mL 3 07/05/19 25 025 Discontinued Active Problems Problem Noted Date [...] 12/10/23 and INR was 13, transferred to [facility] Closed fracture of transvers e process of [...] diet discussed. Avoid hepatotoxic agents. -Followed by: Copy Camera Operator, Dr. Johnson: 03/15/24 at [facility] Gastroenterolog: MELD 22 on most recent [...] 04/26/24 Pt with complex medical course in [facility] including ICU admission due to acute on [...] add a night time snack such as latvian yogurt, PB etc - Deployment Technician referral - CLose follow up in 2 weeks -GI note 04/28/24 - Clarified need for CCC and Deployment Technician referrals - Due for EGD/colo - needs repeat echo ordered to follow up on cardiomyopathy prev EF 20-25% - Will also confirm his OP vertical roll operator for clearance - Pt reminded to [...] by: New appointment with GI 03/15/24 at [facility] Gastroenterology Assessment & Plan (01/19/2024 9:14 [...] Overview (10/22/2023): CT of chest in hospital 12/28/23 IMPRESSION: Interval enlargement right middle lobe pulmonary [...] due after 03/03/2024 -eye care facilitated by [facility] -dental home is [facility] -health care proxy on file 02/08/2015, filed into [employer] on 06/09/23 Assessment & Plan (03/10/2024 9:55 PM EST): -next comprehensive annual evaluation due after 03/03/2024 -eye care facilitated by [facility] -dental home is [facility] -health care proxy on file 02/08/2015, filed into [employer] on 06/09/23 Assessment & Plan (01/19/2024 9:20 AM EDT): -next comprehensive annual evaluation due after 03/03/2024 -eye care facilitated by [facility] -dental home is [facility] -health care proxy on file 02/08/2015, filed into [employer] on 06/09/23 Assessment & Plan (12/27/2023 11:02 AM EDT): -next comprehensive annual evaluation due after 03/03/2024 -eye care facilitated by [facility] -dental home is [facility] care proxy on file 02/08/2015, filed into [employer] on 06/09/23 Assessment & Plan (10/22/2023 11:16 AM EDT): -next physical exam due after 03/03/2024 -eye care facilitated by [facility] -dental home is [facility] care proxy on file 02/08/2015, filed into [employer] on 06/09/23 Assessment & Plan (03/03/2023 9:35 AM EST): -next physical exam due after 03/03/2024 -eye care facilitated by -dental home is History of GI bleed 03/03/2023 Overview (04/15/2023): -Hgb on admission 02/09/23 12.9. Baseline 11. Hemocult was positive. Pt now back on Plavix and Coumadin per cardiology. -check CBC and iron studies -Advise follow up with GI to complete outpatient scope with Dr. Lisbeth Johnson. We left a message with their office 03/03/23 Assessment & Plan (03/10/2024 9:53 PM EST): -Hgb on admission 02/09/23 12.9. Baseline 11-. [...] EST): -Hgb on admission 02/09/23 12.9. Baseline 11-. [...] entresto startd by cardiology 05/2022 -F/u with vertical roll operator ANA Smith -furosemide 40 mg started [...] entresto startd by cardiology 05/2022 -F/u with vertical roll operator ANA Smith -furosemide 40 mg started [...] entresto startd by cardiology 05/2022 -F/u with vertical roll operator ANA Smith -Furosemide 40 mg started [...] entresto startd by cardiology 05/2022 -F/u with vertical roll operator ANA Smith -Furosemide 40 mg started [...] entresto startd by cardiology 05/2022 -F/u with vertical roll operator ANA Smith Assessment & Plan (06/03/2022 [...] entresto startd by cardiology 05/2022 -F/u with vertical roll operator ANA Smith Assessment & Plan (05/07/2022 [...] daily, and amlodipine 2.5mg daily -F/u with vertical roll operator ANA Smith -He is overdue for [...] (12/24/2022): -Hospitalized for subarachnoid hemorrhage 10/2021 at [facility] after fall in the setting of supratheraputic INR of 16 and heavy alcohol use. He was changed to lovenox but could not tolerate the injections. Back on coumadin with improved INRs. He is also on plavix. ER precautions discussed. Assessment & Plan (10/22/2023 11:16 AM EDT): -Hospitalized for subarachnoid hemorrhage 10/2021 at [facility] after fall in the setting of supratheraputic INR of 16 and heavy alcohol use. He was changed to lovenox but could not tolerate the injections. Back on coumadin with improved INRs. He is also on plavix. ER precautions discussed. Assessment & Plan (06/09/2023 9:36 AM EST): -Hospitalized for subarachnoid hemorrhage 10/2021 at [facility] after fall in the setting of supratheraputic INR of 16 and heavy alcohol use. He was changed to lovenox but could not tolerate the injections. Back on coumadin with improved INRs. He is also on plavix. ER precautions discussed. Assessment & Plan (08/11/2022 7:29 AM EDT): -Hospitalized for subarachnoid hemorrhage 10/2021 at [facility] after fall in the setting of supratheraputic INR of 16 and heavy alcohol use. He was changed to lovenox but could not tolerate the injections. Back on coumadin with improved INRs. He is also on plavix. ER precautions discussed. Assessment & Plan (06/03/2022 11:07 AM EST): -Hospitalized for subarachnoid hemorrhage 10/2021 at [facility] after fall in the setting of supratheraputic INR of 16 and heavy alcohol use. Now on Lovenox and clopidogrel. Assessment & Plan (05/07/2022 10:53 AM EST): Hospitalized for subarachnoid hemorrhage 10/2021 at [facility] after fall in the setting of [...] daily drinking and rum - established with [facility] because insurance no longer accepted by [facility]. -Patient followed at [facility] the [facility] with Dr. Cristine Deleon DO, seen [...] daily drinking and rum - established with [facility] because insurance no longer accepted by [facility]. -Patient followed at Count includes the [facility] with Dr. Cristine Deleon DO, seen [...] daily drinking and rum - established with [facility] because insurance no longer accepted by [facility]. -Patient followed at Count includes the [facility] with Dr. Cristine Deleon DO, seen [...] daily drinking and rum - established with [facility] because insurance no longer accepted by [facility]. -Patient followed at Count includes the [facility] with Dr. Cristine Deleon DO, seen [...] daily drinking and rum - established with [facility] because insurance no longer accepted by [facility]. -Patient followed at Count includes the [facility] with Dr. Cristine Deleon DO, seen [...] daily drinking and rum - established with [facility] because insurance no longer accepted by [facility]. Assessment & Plan (11/30/2022 8:51 PM EDT): hx of aortic stenosis s/p Aortic valve repair, hx of AF , cardiomyopathy with EF 25-30%, ,hx AAA repair, complete heart block s/p pacemaker,CAD s/P stent INR goal 2.5 to 3.5 -continue to f up with his vertical roll operator-next apt w Dr Deleon is on 12/08/2022 - I called cards' office # [phone] and confirmed day and hour and gave [...] daily drinking and rum - Established with [facility] because insurance no longer accepted by [facility]. Assessment & Plan (06/03/2022 11:09 AM EST): [...] ETOH with intracranial bleed. - established with [facility] because insurance no longer accepted by [facility]. Last seen 05/2022 recommending 4 week follow up Assessment & Plan (05/07/2022 10:46 AM EST): Hx [address] 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 No hx CABG. Pacemaker placed for AV radha block. -On Coumadin, managed by [facility]. - established with [facility] because insurance no longer accepted by [facility]. Presence of cardiac pacemaker 03/07/2014 Overview (12/24/2022): [...] as pharmacomtherapy, [facility] smoking cessation group, and [facility] pharmacy smoking cessation clinic -currently [...] as pharmacomtherapy, [facility] smoking cessation group, and [facility] pharmacy smoking cessation clinic -currently [...] as pharmacomtherapy, [facility] smoking cessation group, and [facility] pharmacy smoking cessation clinic -currently [...] as pharmacomtherapy, [facility] smoking cessation group, and [facility] pharmacy smoking cessation clinic -currently [...] -He has been referred multiple times to [facility] and has varying degrees of engagement in [...] 2.5mg daily lisinopril discontinued by cardiology and Ruddysto started 05/2022 Assessment & Plan (05/07/2022 10:41 [...] tabs BID 06/09/23 [facility] televist tolerating [...] tabs BID 06/09/23 Alcohol Use Disorder Clinic [facility] televist tolerating the [...] Encounters Date Type Department Care Team Description 07/25/2024 Telephone [facility] PEDIATRICS [address] [place] [address] Nathalie Hsu MD critical lab 07/20/2024 Refill [facility] MEDICINE [address] [place] [address] Nathalie Hsu MD Primary insomnia 07/19/2024 Refill [facility] MED[facility] [address] [place] [address] Nathalie Hsu MD Alcoholic liver disease (CMS/HCC); Primary insomnia 07/18/2024 Telephone [facility] PEDIATR[facility] [address] [place] [address] Nathalie Hsu MD INR/Coumadin Dosing 07/14/2024 1:00 PM EDT Office Visit [facility] MEDICINE [address] [place] [phone] Renny Holloway MD Alcohol use disorder, severe, dependence (CMS/HCC) (Primary Dx); Tobacco dependence 07/14/[address] [address] Shannan Barrow, KHAI Results 07/14/2024 Orders Only GENERIC EXTERNAL DATA DEPARTMENT Provider, Generic External Data 07/14/2024 Travel 07/11/2024 Telephone [facility] PED[facility] [address] [place] [phone] Nathalie Hsu MD INR results 07/05/[address] [address] Nathalie Hsu MD Referral 07/05/[address] [address] Hermelinda Hernandez ANP History of prosthetic heart valve 07/04/2024 Anticoagulation - Warfarin Visit [address] [address] Nathalie Hsu MD History of prosthetic heart valve 07/04/2024 Telephone [facility] PEDIATRICS [address] [place] [address] Nathalie Hsu MD critical lab 07/04/2024 Refill [facility] ADULT DENTAL [address] [place] [address] Panchito Lamas DDS Severe dental caries; Dental root caries; Advanced periodontitis; Excessive attrition of teeth, limited to enamel; Missing teeth, acquired; Dental calculus 07/04/2024 Refill [facility] MEDICINE [address] [place] [address] Nathalie Hsu MD Anemia, unspecified type 07/03/2024 Refill [facility] MEDICINE [address] [place] [address] Nathalie Hsu MD Alcoholic liver disease ([facility]); Anemia, unspecified type 06/28/2024 Refill [facility] MEDICINE [address] [place] [address] Nathalie Hsu MD Mild intermittent asthma without complication 06/27/2024 Telephone [facility] PEDIATRICS [address] [place] [address] Nathalie Hsu MD INR results 06/27/2024 Refill [facility] MEDICINE [address] [place] [address] Nathalie Hsu MD Pain; Mild intermittent asthma without complication 06/20/[address] [address] Nathalie Hsu MD critical lab 06/20/2024 Telephone [facility] ADULT DENTAL [address] [place] [address] Bolano medication 06/19/2024 Refill [facility] CHC MED & PEDS [address] [place], [place] [phone] Nathalie Hsu MD 06/16/2024 Population [facility] Risk Score [facility] () Department [address] [place] [phone] Provider, Population Health Generic 06/13/2024 Telephone [facility] MEDICINE [address] [place] [address] Nathalie Hsu MD INR/Coumadin Dosing 06/09/2024 1:15 PM EST Telemedicine [address] [address] Renny Holloway MD Alcohol use disorder, severe, dependence (CMS/HCC) (Primary Dx) 06/09/2024 Travel 06/08/2024 9:30 AM EST Office Visit [facility] ADULT DENTAL [address] [place] [phone] Panchito Lamas DDS Severe dental caries (Primary Dx); Dental root caries; Advanced periodontitis; Excessive attrition of teeth, limited to enamel; Missing teeth, acquired; Dental calculus 06/06/2024 Telephone [facility] PEDIATRICS [address] [place] [address] Nathalie Hsu MD Results 06/02/2024 Refill [facility] MED & PEDS [address] [place] [address] Nathalie Hsu MD 05/30/[address] [address] Nathalie Hsu MD CRITICAL RESULT CALL/INR 05/29/[address] [address] Nathalie Hsu MD Alcoholic liver disease ([facility]/HCC) 05/26/2024 Patient Outreach [address] [address] Nathalie Hsu MD Care Coordination ([facility] outreach for SDOH PT-1 and food needs-referral completed /) 05/26/[address] [address] Nathalie Hsu MD PT-1 05/23/[address] [address] Nathalie Hsu MD CRITICAL RESULT CALL 05/16/[address] [address] Nathalie Hsu MD CRITICAL RESULT CALL 05/09/[address] [address] Nathalie Hsu MD Anticoagulation 05/03/2024 1:00 PM EST Office Visit [facility] ADULT DENTAL [address] [place] [address] Panchito Lamas DDS Dental abscess (Primary Dx); Dental caries 05/03/[address] [address] Shannan Barrow, RN Paperwork/Forms 05/03/[address] [address] Nathalie Hsu MD Alcoholic liver disease ([facility]/HCC) 05/02/[address] [address] Nathalie Hsu MD Anticoagulation from Last 3 [...] your housing situation today? I have memo hoa 06/01/[address] you li [...] Description 08/03/2024 8:00 AM EDT Office Visit [facility] ADULT DENTAL [address] [place] [address] Panchito Lamas DDS [address] [place] [address] 08/11/2024 1:15 PM EDT Office Visit [facility] MEDICINE [address] [place] [address] Renny Holloway MD [address] [place] [address] 11/09/2024 1:00 PM EDT Office Visit [facility] OPTOMETRY [address] [place] [address] Seth, Zabrina, OD [address] [place] [address] 01/08/2025 10:00 AM EDT Office Visit [facility] ADULT DENTAL [address] [place] [address] Ulises, Chiquita [address] [place] [address] Health Maintenance Due Date Last Done Comments [...] Associated Diagnosis Comments PROTHROMBIN TIME-INR Routine 07/25/2024 PROTHROMBIN TIME-INR Routine 07/18/2024 COMPREHENSIVE METABOLIC PANEL Routine 07/14/2024 1:49 PM [...] 1:00 PM EST PROTHROMBIN TIME-INR Routine 05/02/2024 LAB COLOGUARD?? COLON CANCER SCREEN Routine 12/30/2023 [...] Health Maintenance Results * (ABNORMAL) Prothrombin Time-INR (07/25/2024) Only the most recent of14 resultswithin the time period is included. INR 3.60(H) 2.50 - 3.50 EXTERNAL LAB Protime EXTERNAL LAB Blood Venous blood specimen / Unknown Nathalie Hsu MD LAB BLOOD ORDERABLES Final Result EXTERNAL LAB * (ABNORMAL) CBC auto differential (07/14/2024 1:49 PM EDT) White Blood Count 9.1 4.8 - 10.8 X10*3/uL [facility] Red Blood Count 4.59(L) 4.60 - 5.80 X10*6/uL [facility] Hemoglobin 14.3 14.0 - 18.0 g/dl [facility] Hematocrit 41.7(L) 42.0 - 52.0 % [facility] Mean Corpuscular Volume 90.8 80.0 - 98.0 fL [facility] Mean Corpuscular Hemoglobin 31.2 27.0 - 33.0 pg [facility] Mean Corpuscular HGB Conc 34.3 31.0 - 36.0 g/dl [facility] Red Cell Distribution Width 14.1 11.0 - 16.0 % [facility] Platelet Count 246 160 - 400 X10*3/uL [facility] Mean Platelet Volume 9.1(L) 9.4 - 12.4 fL [facility] Neutrophils Percent Auto 56.4 45 - 73 % [facility] Imm Gran Pct Auto 0.7(H) 0.0 - 0.4 % [facility] Lymphocytes Percent Auto 31.8 20 - 40 % [facility] Monocytes Percent Auto 7.7 2 - 11 % [facility] Eosinophils Percent Auto 2.4 0 - 4 % [facility] Basophils Percent Auto 1.0 0 - 2 % [facility] NRBC Pct Auto 0.0 0.0 - 0.2 /100WBC [facility] Neutrophils Absolute Auto 5.1 2.0 - 8.3 x10*3/uL [facility] Imm Gran Abs Auto 0.06(H) 0.00 - 0.03 X10*3/uL [facility] Lymphocytes Absolute Auto 2.9 1.2 - 4.9 X10*3/uL [facility] Monocytes Absolute Auto 0.7 0.1 - 1.2 X10*3/uL [facility] Eosinophils Absolute Auto 0.2 0.0 - 0.4 X10*3/uL [facility] Basophils Absolute Auto 0.1 0.0 - 0.2 X10*3/uL [facility] NRBC Abs Auto 0.000 0.0 - 0.012 X10*3/uL [facility] Blood Venous blood specimen / Unknown 07/14/2024 1:49 PM EDT 07/14/2024 3:58 PM EDT us Renny Hloloway MD LAB BLOOD ORDERABLES Final Resul t Performing Organization Address City/[facility]/ZIP Co de Phone Number [facility] [address] [place] [phone] * CBC (07/14/2024 1:49 PM EDT) White Blood Count 9.0 4.8 - 10.8 X10*3/uL [facility] Red Blood Count 4.63 4.60 - 5.80 X10*6/uL [facility] Hemoglobin 14.3 14.0 - 18.0 g/dl [facility] Hematocrit 42.4 42.0 - 52.0 % [facility] Mean Corpuscular Volume 91.6 80.0 - 98.0 fL [facility] Mean Corpuscular Hemoglobin 30.9 27.0 - 33.0 pg [facility] Mean Corpuscular HGB Conc 33.7 31.0 - 36.0 g/dl [facility] Red Cell Distribution Width 13.9 11.0 - 16.0 % [facility] Platelet Count 258 160 - 400 X10*3/uL [facility] Mean Platelet Volume 9.5 9.4 - 12.4 fL [facility] NRBC Pct Auto 0.0 0.0 - 0.2 /100WBC [facility] NRBC Abs Auto 0.000 0.0 - 0.012 X10*3/uL [facility] 07/14/2024 1:49 PM EDT 07/14/2024 3:58 PM EDT us Generic External Data Provider LAB BLOOD ORDERAB LES Final Result Performing Organization Address City/[facility]/ZIP Co de Phone Number [facility] [address] [place] [address] [phone] * Hepatic Function Panel (07/14/2024 1:49 PM EDT) Pathologist [facility] Bilirubin, Direct 0.3 0.0 - 0.5 mg/dL [facility] Blood Venous blood specimen / Unknown 07/14/2024 1:49 PM EDT 07/14/2024 3:58 PM EDT us Renny Holloway MD LAB BLOOD ORDERABLES Final Resul t [facility] [address] [place] [phone] * (ABNORMAL) Comprehensive Metabolic Panel (07/14/2024 1:49 PM EDT) [facility] Sodium 139 135 - 145 mmol/L [facility] Potassium 3.8 3.3 - 5.1 mmol/L [facility] Chloride 112(H) 96 - 108 mmol/L [facility] Carbon Dioxide 21(L) 22 - 29 mmol/L [facility] Anion Gap 10(L) 12 - 20 [facility] Urea Nitrogen (BUN) 17(H) 9 - 16 mg/dL [facility] Creatinine, Serum 1.01 0.5 - 1.4 mg/dL [facility] Estimated Glomerular Filt Rate >60 [facility] Comment:Chronic Kidney Disea se: Estimated GFR < 60 mL/min/1.71h4Lphfyd Kidney Disease: Estimated GFR < 15 mL/min/1.73m2 Glucose 93 60 - 115 mg/dL [facility] Calcium 9.0 8.4 - 10.2 mg/dL [facility] Bilirubin, Total 0.6 0.0 - 1.0 mg/dL [facility] Aspartate Amino Transferase 31 5 - 37 U/L [facility] Alanine Aminotransferase 37 0 - 40 U/L [facility] Total Protein 7.8 6.5 - 8.0 g/dL [facility] Albumin Level 4.0 3.5 - 5.0 g/dL [facility] Alkaline Phosphatase 131(H) 39 - 117 U/L [facility] 07/14/2024 1:49 PM EDT 07/14/2024 3:58 PM EDT us Generic External Data Provider LAB BLOOD ORDERAB LES Final Result [facility] [address] [place] [address] [phone] * Cologuard?? colon cancer screening (12/30/2023 1:30 AM EDT) Cologuard Result Negative Negative 01/05/20 1:07 AM EDT [employer] (CLIA #:[id number]) Comment: NEGATIVE TEST RESULT. A negative Cologuard [...] Plascencia. et al, N Engl J Med 2014;370(14):1286- 1297) The normal value (reference range) for this assay is negative. COLOGUARD RE-SCREENING RECOMMENDATION: Periodic colorectal cancer screening is an important part of preventive healthcare for asymptomatic individuals at average risk for colorectal cancer. ??Following a negative Cologuard result, the [place] [employer] and U.S. Multi-Society Task Force screening guidelines recommend a Cologuard re-screening interval of 3 years. References: [place] [employer] Guideline for Colorectal Cancer Screening: https://www.cancer.org/cancer/titbz-wdbqfl-clbcfd/iucgwmubz-qvfdrzzdx-dqcsowq/ac s-rec ommendations.html.; Honorio PINA, Lita NEGRETE, Luba JamesK, Colorectal Cancer Screening: Recommendations for Physicians and Patients from the U.S. Multi-Society Task Force on Colorectal Cancer Screening , Am J Gastroenterology 2017; 112:7660-1024. TEST DESCRIPTION: Composite algorithmic analysis of stool [...] (Tien Landeros al, N Engl J Med 2014;370(14):2116-9883.) Cologuard may produce a false negative or false positive result (no colorectal cancer or precancerous polyp present at colonoscopy follow up). A negative Cologuard test result does not guarantee the absence of CRC or advanced adenoma (pre-cancer). The current Cologuard screening interval is every 3 years. ([place] [employer] and [place] [employer] Task Force). Cologuard performance data in a 10,000 patient pivotal study using colonoscopy as the reference method can be accessed at the following location: [email or web address] [email or web address]/results. Additional description of the Cologuard test process, warnings and precautions can be found at www.[email or web address].com. Stool specimen (specimen) Rectal contents / Unknown 12/30/2023 1:30 AM EDT 01/01/2024 3:30 PM EDT Nathalie Hsu MD LAB MOLECULAR DIAGNOSTICS ORDERABLES Final Result [employer] (CLIA #:[id number]) [place] [address], [place] [phone] * Hepatitis C Antibody with Reflex to HCV, RNA, Quantitative, Real-Time PCR (08/10/2022 11:24 AM EDT) Pathologist [facility] [place] Hepatitis C Antibody NON-REACT KG NON-REACT KG [facility] Index 0.13 <1.00 [facility] Comment: HCV antibody was non-reactive. There is no laboratory evidence of HCV infection. In most cases, no further action is required. However, if recent HCV exposure is suspected, a test for HCV RNA (test code 78124) is suggested. For additional information please refer to http://education.Efficient Cloud/faq/JXD49y2 (This link is being provided for informational/ educational purposes only.) Blood Venous blood specimen / Unknown 08/10/2022 11:24 AM EDT 08/10/2022 11:25 AM EDT Narrative [facility] - 08/16/2022 12:40 AM EDT FASTING:NO FASTING: NO Nathalie Hsu MD LAB BLOOD ORDERABLES Final Result Performing Organization Address City/[facility] Co de Phone Number [facility] [address], [place] [address] [facility] 200 [place] [address] * HIV-1/2 Antigen and Antibodies, Fourth Generation, with Reflexes (08/10/2022 11:24 AM EDT) [facility] HIV Antigen/Antibody, 4th Generation NON-REAC TIVE NON-REAC TIVE [facility] Comment: HIV-1 antigen and HIV-1/HIV-2 antibodies were [...] ?? For additional information please refer to http://Trunity.Efficient Cloud/faq/CJX190 (This link is being provided for informational/ educational purposes only.) The performance of this assay has not been clinically validated in patients less than 2 years old. Blood Venous blood specimen / Unknown 08/10/2022 11:24 AM EDT 08/10/2022 11:25 AM EDT Narrative [facility] - 08/16/2022 12:40 AM EDT FASTING:NO FASTING: NO us Nathalie Hsu MD LAB BLOOD ORDERABLES Final Result [facility] [address], [place] [address] [facility] 200 [place] [address] * Lipid Panel, Standard (08/10/2022 11:24 AM EDT) Cholesterol, Total 161 <200 mg/dL [facility] HDL Cholesterol 62 > OR = 40 mg/dL [facility] Triglycerides 109 <150 mg/dL [facility] LDL Cholesterol 80 mg/dL (calc) [facility] Comment: Reference range: <100 Desirable range <100 mg/dL for primary prevention; ?? <70 mg/dL for patients with CHD or diabetic patients with > or = 2 CHD risk factors. LDL-C is now calculated using the Gallo calculation, which is a validated novel method providing better accuracy than the Friedewald equation in the estimation of LDL-C. Anthony LITTLE et al. FLAKITA. 2013;310(19): 6466-3936 (http://education.Violet Grey.JollyDeck/faq/HFS413) Chol/HDLC Ratio 2.6 <5.0 (calc) [facility] Non-HDL Cholesterol 99 <130 mg/dL (calc) [facility] Comment: For patients with diabetes plus 1 major ASCVD risk factor, treating to a non-HDL-C goal of <100 mg/dL (LDL-C of <70 mg/dL) is considered a therapeutic option. Blood Venous blood specimen / Unknown 08/10/2022 11:24 AM EDT 08/10/2022 11:25 AM EDT Narrative [facility] - 08/16/2022 12:40 AM EDT FASTING:NO FASTING: NO Nathalie Hsu MD LAB BLOOD ORDERABLES Final Result [facility] [address], [place] [address] [facility] 200 [place] [address] * Colonoscopy (03/05/2012) Colonoscopy Dr. Zhang Historical Provider HEALTH MAINTENANCE Final Result from Last 3 Months or Most Recently Relevant to Health Maintenance Insurance [facility] C3 DENTAL-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 Advance Directives and Living Will 06/10/2023 1:14 PM Health Care Proxy Care Teams Qa Tech Relationship Specialty Start Date End Date Aracelis, MD Nathalie [address] [place] [address] PCP - General Family Medicine 09/27/13 Shannan Barrow, KHAI [address] [place] [address] Registered Nurse 02/29/24 Lisbeth Johnson [address] [place] [address] 3rd [place] [address] Gastroenterology 03/15/24 Tonya Poole Director Of AcquisitionsTourist Guide 01/19/24 Raman ([facility]) Registered Nurse 02/29/24 MD [facility] [facility] [address] [place] [address] Cardiology 03/10/24 Omid Vincent Psychiatry 03/15/24
--- OUTSIDE RECORDS SUMMARY | 2024-07-28 14:15 | XMS_ITS | Encounter Summary ---
Author Organization [employer] Address [address] 7t [place] [address] Care Team Providers Care Regional Service Manager Name Role Phone Nathalie Hsu MD Primary Care Provider [phone]- [phone] Shannan Barrow RN Unavailable [phone] Lisbeth Johnson Unavailable Reason for Visit * Reason Onset Date Comments Med Refill 03/09/2024 Encounter Details Date Type Department Care Team (Late st Contact Info) Description 03/09/2024 Telephone [facility] MEDICINE [address] [place], [place] [phone] Nathalie Hsu MD 230 [place], [place] [phone] Med Refill Social History Tobacco Use Types [...] 9:13 AM EST Medication was sent to [facility] on 12/13/23 #60 with 3 refills. * Telephone Encounter - Alf Avilez - 03/09/2024 9:07 AM EST TC from pt requesting medication refill. Medications needing refill : melatonin 5 MG tablet To be sent to: [facility] documented in this encounter Plan of Treatment Upcoming Encounters Date Type Department Care Team (Late st Contact Info) Description 08/03/2024 8:00 AM EDT Office Visit [facility] ADULT DENTAL [address] [place] [address] Panchito Lamas DDS [address] [place] [address] 08/11/2024 1:15 PM EDT Office Visit [facility] MEDICINE [address] [place] [address] Renny Holloway MD 230 [place] [address] 11/09/2024 1:00 PM EDT Office Visit [facility] OPTOMETRY [address] [place] [address] SethZabrina funes, OD 230 [place] [address] 01/08/2025 10:00 AM EDT Office Visit [facility] ADULT DENTAL [address] [place] [address] Ulises Chiquita [address] [place] [address] documented as of this encounter Visit Diagnoses Not on filedocumented in this encounter Additional Health Concerns Assessment Noted Time PHQ-9 Depression Total Score: 0 06/09/19 24 9:13 AM EST documented as of this encounter Care Teams Regional Service Manager Relationship Specialty Start Date End Date Nathalie Hsu MD [address] [place] [address] PCP - General Family Medicine 09/27/13 Shannan Barrow, RN [address] [place] [address] Registered Nurse 02/29/[address] 3rd [place] [address] Gastroenterology 03/15/24 Tonya Poole Trailer ChiefStrike On Machine Operator 01/19/24 Raman (A S) Registered Nurse 02/29/24 Marcos Verdin MD [place] [facility] [address] [place] [address] Cardiology 03/10/24 Omid Vincent Psychiatry 03/15/24 documented as of this encounter
--- OUTSIDE RECORDS SUMMARY | 2024-07-28 14:15 | XMS_ITS | Encounter Summary ---
Author Organization [facility] Address [address] 7t [place] [address] Care Team Providers Care Hand Printed Circuit Board Assembler Name Role Phone Nathalie Hsu MD Primary Care Provider [phone] Shannan Barrow RN Unavailable [phone] Lisbeth Johnson Unavailable Reason for Visit * Reason Onset Date Comments Results 01/12/2023 INR Encounter Details Date Type Department Care Team (Late st Contact Info) Description 01/12/2023 Telephone [facility] [address] [place] [address] Nathalie Hsu MD 230 [place], [place] [phone] Results (INR) Social History Tobacco Use Types [...] 12:36 PM EDT Tc from Gavin at [email or web address] reporting INR results. Please call [phone] documented in this encounter Plan of Treatment Upcoming Encounters Date Type Department Care Team (Late st Contact Info) Description 08/03/2024 8:00 AM EDT Office Visit [facility] ADULT DENTAL [address] [place] [address] Panchito Lamas DDS [address] [place] [address] 08/11/2024 1:15 PM EDT Office Visit [facility] [address] [place] [address] Renny Holloway MD 230 [place] [address] 11/09/2024 1:00 PM EDT Office Visit [facility] OPTOMETRY [address] [place] [address] Zabrina Ann, GEETA 230 [place] [address] 01/08/2025 10:00 AM EDT Office Visit [facility] ADULT DENTAL [address] [place] [address] Chiquita Montgomery 230 [place] [address] documented as of this encounter Visit Diagnoses Not on filedocumented in this encounter Additional Health Concerns Assessment Noted Time PHQ-9 Depression Total Score: 6 05/08/19 23 10:33 AM EST documented as of this encounter Care Teams Hand Printed Circuit Board Assembler Relationship Specialty Start Date End Date Nathalie Hsu MD 230 [place] [address] PCP - General Family Medicine 09/27/13 Shannan Barrow, KHAI 230 [place] [address] Registered Nurse 02/29/24 Lisbeth Johnson [address] [place] [address] 3rd [place] [address] Gastroenterology 03/15/24 Tonya Poole Trailer TechnicianRubber Off 01/19/24 Raman (A S) Registered Nurse 02/29/24 Marcos Verdin MD [place] [facility] [address] [place] [address] Cardiology 03/10/24 Omid Vincent Psychiatry 03/15/24 documented as of this encounter
--- OUTSIDE RECORDS SUMMARY | 2024-07-28 14:15 | XMS_ITS | Encounter Summary ---
Author Organization [facility] Address [address] 7t [place] [address] Care Team Providers Care Drop Count Associate Name Role Phone Nathalie Hsu MD Primary Care Provider [phone]- [phone] Shannan Barrow RN Unavailable [phone] Lisbeth Johnson Unavailable Encounter Details Date Type Department Care Team (Late st Contact Info) Description 05/12/2022 Abstract [facility] [address] [place] [address] Nathalie Hsu MD 230 [place] [address] Social History Tobacco Use Types Packs/Day Years [...] 08/03/2024 8:00 AM EDT Office Visit [facility] ADULT DENTAL 230 [place] [address] Panchito Lamas, DDS 230 [place] [address] 08/11/2024 1:15 PM EDT Office Visit [facility] 230 [place] [address] Renny Holloway MD 230 [place] [address] 11/09/2024 1:00 PM EDT Office Visit [facility] OPTOMETRY [address] [place] [address] Zabrina Ann, OD 230 [place] [address] 01/08/2025 10:00 AM EDT Office Visit [facility] ADULT DENTAL 230 [place] [address] Ulises, Chiquita 230 [place] [address] documented as of this encounter Procedures Procedure [...] documented as of this encounter Care Teams Drop Count Associate Relationship Specialty Start Date End Date Nathalie Hsu MD [address] [place] [address] PCP - General Family Medicine 09/27/13 Shannan Barrow, KHAI [address] [place] [address] Registered Nurse 02/29/24 Lisbeth Johnson [address] 3rd [place] [address] Gastroenterology 03/15/24 Tonya Poole Pipe Smoker Machine OperatorChemical Equipment Repairer 01/19/24 Raman ([facility]) Registered Nurse 02/29/24 Marcos Verdin MD [place] [facility] [address] [place] [address] Cardiology 03/10/24 Omid Vincent Psychiatry 03/15/24 documented as of this encounter
--- OUTSIDE RECORDS SUMMARY | 2024-07-28 14:15 | XMS_ITS | Encounter Summary ---
Author Organization [employer] Address [address] 7t [place] [address] Care Team Providers Care Natural Gas Basis Trader Name Role Phone Nathalie Hsu MD Primary Care Provider [phone]- [phone] Shannan Barrow RN Unavailable [phone] Lisbeth Johnson Unavailable Reason for Visit * Reason Comments Med Refill Encounter Details Date Type Department Care Team (Late st Contact Info) Description 11/01/2023 Refill [facility] [address] [place], [place] [phone] Nathalie Hsu MD 230 [place], [place] [phone] Mild intermittent asthma, unspecified whether complicated Social [...] the past 12 months, has t he [employer], gas, 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 threatened to [...] 8:00 AM EDT Office Visit [facility] 230 [place] [address] Panchito Lamas DDS 230 [place] [address] 08/11/2024 1:15 PM EDT Office Visit [facility] 230 [place] [address] Renny Holloway MD [address] [place] [address] 11/09/2024 1:00 PM EDT Office Visit [facility] OPTOMETRY [address] [place] [address] Zabrina Ann, GEETA 230 [place] [address] 01/08/2025 10:00 AM EDT Office Visit [facility] 230 [place] [address] Chiquita Montgomery 230 [place] [address] documented as of this encounter Visit Diagnoses Diagnosis Mild intermittent asthma, unspecified whether complicated documented in this encounter Additional Health Concerns Assessment Noted Time PHQ-9 Depression Total Score: 0 06/09/19 9:13 AM EST documented as of this encounter Care Teams Natural Gas Basis Trader Relationship Specialty Start Date End Date Nathalie Hsu MD 230 [place] [address] PCP - General Family Medicine 09/27/13 Shannan Barrow, KHAI [address] [place] [address] Registered Nurse 02/29/24 Lisbeth Johnson [address] [place] [address] 3rd [place] [address] Gastroenterology 03/15/24 Tonya Poole Investigation OfficerOperations Manager/Coordinator 01/19/24 Raman ([facility]) Registered Nurse 02/29/24 Marcos Verdin MD [place] [facility] [address] [place] [address] Cardiology 03/10/24 Omid Vincent Psychiatry 03/15/24 documented as of this encounter
--- OUTSIDE RECORDS SUMMARY | 2024-07-28 14:15 | XMS_ITS | Encounter Summary ---
Author Organization [employer] Address [address] 7t [place] [address] Care Team Providers Care Laboratory Analyst Name Role Phone Nathalie Hsu MD Primary Care Provider [phone]- [phone] Shannan Barrow RN Unavailable [phone] Lisbeth Johnson Unavailable Reason for Visit * Reason Comments Med Refill Encounter Details Date Type Department Care Team (Late st Contact Info) Description 02/12/2023 Refill [facility] 230 [place], [place] [phone] Nathalie Hsu MD 230 [place], [place] [phone] Pain Social History Tobacco Use Types Packs/Day [...] Description 08/03/2024 8:00 AM EDT Office Visit [facility] ADULT DENTAL [address] [place] [address] Panchito Lamas DDS [address] [place] [address] 08/11/2024 1:15 PM EDT Office Visit [facility] 230 [place] [address] Renny Holloway MD 230 [place] [address] 11/09/2024 1:00 PM EDT Office Visit [facility] OPTOMETRY [address] [place] [address] Seth, Zabrina, OD 230 [place] [address] 01/08/2025 10:00 AM EDT Office Visit [facility] ADULT DENTAL [address] [place] [address] Ulises Chiquita [address] [place] [address] documented as of this encounter Visit Diagnoses Diagnosis Pain Generalized pain documented in this encounter Additional Health Concerns Assessment Noted Time PHQ-9 Depression Total Score: 6 05/08/19 23 10:33 AM EST documented as of this encounter Care Teams Laboratory Analyst Relationship Specialty Start Date End Date Nathalie Hsu MD 230 [place] [address] PCP - General Family Medicine 09/27/13 Shannan Barrow, RN 230 [place] [address] Registered Nurse 02/29/[address] 3rd [place] [address] Gastroenterology 03/15/[address] Freight Brake CouplerLineworker 01/19/24 Raman ([facility]) Registered Nurse 02/29/24 Marcos Verdin MD [place] [facility] [address] [place] [address] Cardiology 03/10/24 Omid Vincent Psychiatry 03/15/24 documented as of this encounter
--- OUTSIDE RECORDS SUMMARY | 2024-07-28 14:15 | XMS_ITS | Encounter Summary ---
Author Organization [employer] Address [address] 7t [place] [address] Care Team Providers Care Rn School Name Role Phone Nathalie Hsu MD Primary Care Provider [phone]- [phone] Shannan Barrow RN Unavailable [phone] Lisbeth Johnson Unavailable Encounter Details Date Type Department Care Team (Late st Contact Info) Description 05/12/2023 Orders Only [facility] 230 [place], [place] [phone] Nathalie Hsu MD 230 [place], [place] [phone] Social History Tobacco Use Types Packs/Day Years [...] Description 08/03/2024 8:00 AM EDT Office Visit [facility] ADULT DENTAL 230 [place] [address] Panchito Lamas DDS 230 [place] [address] 08/11/2024 1:15 PM EDT Office Visit [facility] 230 [place] [address] Renny Holloway MD 230 [place] [address] 11/09/2024 1:00 PM EDT Office Visit [facility] OPTOMETRY [address] [place] [address] Zabrina Ann, GEETA 230 [place] [address] 01/08/2025 10:00 AM EDT Office Visit [facility] ADULT DENTAL 230 [place] [address] Chiquita Montgomery 230 [place] [address] documented as of this encounter Visit Diagnoses Not on filedocumented in this encounter Additional Health Concerns Assessment Noted Time PHQ-9 Depression Total Score: 6 05/08/19 23 10:33 AM EST documented as of this encounter Care Teams Rn School Relationship Specialty Start Date End Date Nathalie Hsu MD 230 [place] [address] PCP - General Family Medicine 09/27/13 Shannna Barrow, RN 230 [place] [address] Registered Nurse 02/29/24 Lisbeth Johnson [address] [place] [address] 3rd [place] [address] Gastroenterology 03/15/24 Tonya Poole Department Sales ManagerFreelance Art Director 01/19/24 Raman ([facility]) Registered Nurse 02/29/24 Marcos Verdin MD [place] [facility] [address] [place] [address] Cardiology 03/10/24 Omid Vincent Psychiatry 03/15/24 documented as of this encounter
--- OUTSIDE RECORDS SUMMARY | 2024-07-28 14:15 | XMS_ITS | Encounter Summary ---
Author Organization [employer] [facility] Address [address] [facility] 7t [place] [address] Care Team Providers Care Newspaper Editor Name Role Phone [place], Nathalie ABDI Primary Care Provider + [phone] Shannan Barrow RN Unavailable [phone] Lisbeth Johnson Unavailable Encounter Details Date Type Department Care Team (Late st Contact Info) Description 11/27/2022 Orders Only [facility] MED[facility]INE 230 [place] [address] Jose Dockery 230 [place] [address] Social History Tobacco Use Types Packs/Day Years [...] Visit [facility] ADULT DENTAL 230 [place], [place] [phone] Panchito Lamas DDS 230 [place], [place] [phone] 08/11/2024 1:15 PM EDT Office Visit [facility] [address] [place] [address] Renny Holloway MD 230 [place] [address] 11/09/2024 1:00 PM EDT Office Visit [facility] OPTOMETRY [address] [place] [address] Seth, Zabrina, OD 230 [place] [address] 01/08/2025 10:00 AM EDT Office Visit [facility] ADULT DENTAL 230 [place] [address] Ulises, Chiquita 230 [place] [address] documented as of this encounter Visit Diagnoses Not on filedocumented in this encounter Additional Health Concerns Assessment Noted Time PHQ-9 Depression Total Score: 6 05/08/19 23 10:33 AM EST documented as of this encounter Care Teams Newspaper Editor Relationship Specialty Start Date End Date Nathalie Hsu MD 230 [place] [address] PCP - General Family Medicine 09/27/13 Shannan Barrow, RN [address] [place] [address] Registered Nurse 02/29/[address] [place] [address] Drive 3rd [place] [address] Gastroenterology 03/15/24 Tonya Poole Application PackagerPayroll Technician 01/19/24 Raman ([facility]) Registered Nurse 02/29/24 Marcos Verdin MD [place] [facility] [address] [place] [address] Cardiology 03/10/24 Omid Vincent Psychiatry 03/15/24 documented as of this encounter
--- OUTSIDE RECORDS SUMMARY | 2024-07-28 14:15 | XMS_ITS | Encounter Summary ---
Author Organization [employer] Address [address] 7t [place] [address] Care Team Providers Care Radiological Technologist Name Role Phone Nathalie Hsu MD Primary Care Provider [phone]- [phone] Shannan Barrow RN Unavailable [phone] Lisbeth Johnson Unavailable Reason for Visit * Reason Onset Date Comments INR report 03/31/2023 Encounter Details Date Type Department Care Team (Late st Contact Info) Description 03/31/2023 Telephone [facility] [address] [place], [place] [phone] Nathalie Hsu MD [address] [place], [place] [phone] INR report Social History Tobacco Use Types [...] PM EST Tc from Raman VALE with [email or web address] requesting a call from a nurse to report an INR results. Please contact Raman @ [phone] documented in this encounter Plan of Treatment Upcoming Encounters Date Type Department Care Team (Late st Contact Info) Description 08/03/2024 8:00 AM EDT Office Visit [facility] ADULT DENT[facility] [address] [place] [address] Panchito Lamas DDS 230 [place] [address] 08/11/2024 1:15 PM EDT Office Visit [facility] [address] [place] [address] Renny Holloway MD [address] [place] [address] 11/09/2024 1:00 PM EDT Office Visit [facility] OPTOMETRY [address] [place] [address] Zabrina Ann, GEETA 230 [place] [address] 01/08/2025 10:00 AM EDT Office Visit [facility] ADULT DENT[facility] [address] [place] [address] Ulises, Chiquita 230 [place], [place] [phone] documented as of this encounter Visit Diagnoses Not on filedocumented in this encounter Additional Health Concerns Assessment Noted Time PHQ-9 Depression Total Score: 6 05/08/19 23 10:33 AM EST documented as of this encounter Care Teams Radiological Technologist Relationship Specialty Start Date End Date Nathalie Hsu MD 230 [place] [address] PCP - General Family Medicine 09/27/13 Shannan Barrow, KHAI [address] [place] [phone] Registered Nurse 02/29/24 Lisbeth Johnson [address] [place] [address] 3rd [place] [address] Gastroenterology 03/15/24 Tonya Poole UniformerHostel Manager 01/19/24 Raman ([facility]) Registered Nurse 02/29/24 Marcos Verdin MD [place] [facility] [address] [place] [address] Cardiology 03/10/24 Omid Vincent Psychiatry 03/15/24 documented as of this encounter
--- OUTSIDE RECORDS SUMMARY | 2024-07-28 14:15 | XMS_ITS | Encounter Summary ---
Author Organization [employer] Address [address] [place] [address] Care Team Providers Care Musician Instrumental Name Role Phone Nathalie Hsu MD Primary Care Provider [phone] Shannan Barrow RN Unavailable [phone] Lisbeth Johnson Unavailable Reason for Visit * Reason Comments Med Refill Encounter Details Date Type Department Care Team (Late st Contact Info) Description 02/28/2023 Refill [facility] MEDICINE [address] [place], [place] [phone] Nathalie Hsu MD [address] [place], [place] [phone] Social History Tobacco Use Types Packs/Day Years [facility] [address] [place] [address] Panchito Lamas DDS [address] [place] [address] 08/11/2024 1:15 PM EDT Office Visit [facility] MEDICINE [address] [place] [address] Renny Holloway MD [address] [place] [address] 11/09/2024 1:00 PM EDT Office Visit [facility] OPTOMETRY [address] [place] [address] Seth, Zabrina, OD [address] [place] [address] 01/08/2025 10:00 AM EDT Office Visit [facility] ADULT DENTAL [address] [place] [address] Ulises Chiquita [address] [place] [address] documented as of this encounter Visit Diagnoses Not on filedocumented in this encounter Additional Health Concerns Assessment Noted Time PHQ-9 Depression Total Score: 6 05/08/19 23 10:33 AM EST documented as of this encounter Care Teams Musician Instrumental Relationship Specialty Start Date End Date Nathalie Hsu MD [address] [place] [address] PCP - General Family Medicine 09/27/13 Shannan Barrow, RN [address] [place] [address] Registered Nurse 02/29/[address] [place] [address] Gastroenterology 03/15/24 Tonya Poole Changeover OperatorShot Grinder Operator 01/19/24 Raman ([facility]) Registered Nurse 02/29/24 Marcos Verdin MD [facility] [address] [place] [address] Cardiology 03/10/24 Omid Vincent Psychiatry 03/15/24 documented as of this encounter
--- OUTSIDE RECORDS SUMMARY | 2024-07-28 14:15 | XMS_ITS | Encounter Summary ---
Author Organization [employer] [facility] Address [address] [place] [address] Care Team Providers Care Procurement Inspector Name Role Phone Nathalie Hsu MD Primary Care Provider [phone] Shannan Barrow RN Unavailable [phone] Lisbeth Johnson Unavailable Encounter Details Date Type Department Care Team (Late st Contact Info) Description 08/11/2023 Telephone [facility] MEDICINE [address] [place], [place] [phone] Nathalie Hsu MD [address] [place], [place] [phone] Social History Tobacco Use Types Packs/Day Years [facility] [address] [place] [address] Panchito Lamas DDS [address] [place] [address] 08/11/2024 1:15 PM EDT Office Visit [facility] MEDICINE [address] [place] [address] Renny Holloway MD [address] [place] [address] 11/09/2024 1:00 PM EDT Office Visit [facility] OPTOMETRY [address] [place] [address] Zabrina Ann, GEETA [address] [place] [address] 01/08/2025 10:00 AM EDT Office Visit [facility] ADULT DENTAL [address] [place] [address] Chiquita Montgomery [address] [place] [address] documented as of this encounter Visit Diagnoses Not on filedocumented in this encounter Additional Health Concerns Assessment Noted Time PHQ-9 Depression Total Score: 0 06/09/19 24 9:13 AM EST documented as of this encounter Care Teams Procurement Inspector Relationship Specialty Start Date End Date Nathalie Hsu MD [address] [place] [address] PCP - General Family Medicine 09/27/13 Shannan Barrow, RN [address] [place] [address] Registered Nurse 02/29/24 Lisbeth Johnson [address] [place] [address] 3rd [place] [address] Gastroenterology 03/15/24 Tonya Poole [employer] ArchitectMaster Brewer 01/19/24 Raman ([facility]) Registered Nurse 02/29/24 Marcos Verdin MD [facility] [address] [place] [address] Cardiology 03/10/24 Omid Vincent Psychiatry 03/15/24 documented as of this encounter
--- OUTSIDE RECORDS SUMMARY | 2024-07-28 14:15 | XMS_ITS | Encounter Summary ---
Author Organization [employer] Address [address] [place] [address] Care Team Providers Care Gyro Mechanic Name Role Phone Nathalie Hsu MD Primary Care Provider [phone] Shannan Barrow RN Unavailable [phone] Lisbeth Johnson Unavailable Reason for Visit * Reason Onset Date Comments Med Refill 07/01/2023 Encounter Details Date Type Department Care Team (Late st Contact Info) Description 07/01/2023 Telephone [facility] MEDICINE [address] [place], [place] [phone] Nathalie Hsu MD [address] [place], [place] [phone] Med Refill Social History Tobacco Use Types [...] the past 12 months, has t he [employer], gas, oil or water [employer] threatened to shut off services in your [...] 9:11 AM EDT Medication was sent to [facility] Pharm[facility] on 03/03/23 90 day supply with 1 refill. * Telephone Encounter - Amie Ramsey - 07/01/2023 9:06 AM EDT TC from pt requesting medication refill. Medications needing refill : pantoprazole (ProtoNix) 40 MG EC tablet To be sent to: [facility] - [place], [place] - [address] [facility] [address] [facility] [id number] documented in this encounter Plan of Treatment Upcoming Encounters Date Type Department Care Team (Late st Contact Info) Description 08/03/2024 8:00 AM EDT Office Visit [facility] ADULT DENTAL [address] [place] [address] Panchito Lamas DDS [address] [place] [address] 08/11/2024 1:15 PM EDT Office Visit [facility] MEDICINE [address] [place] [address] Renny Holloway MD [address] [place] [address] 11/09/2024 1:00 PM EDT Office Visit [facility] OPTOMETRY [address] [place] [address] Seth, Zabrina, OD [address] [place] [address] 01/08/2025 10:00 AM EDT Office Visit [facility] ADULT DENTAL [address] [place] [address] Ulises, Chiquita [address] [place] [address] documented as of this encounter Visit Diagnoses Not on filedocumented in this encounter Additional Health Concerns Assessment Noted Time PHQ-9 Depression Total Score: 0 06/09/19 24 9:13 AM EST documented as of this encounter Care Teams Gyro Mechanic Relationship Specialty Start Date End Date Nathalie Hsu MD [address] [place] [phone] PCP - General Family Medicine 09/27/13 Shannan Barrow, RN [address] [place] [address] Registered Nurse 02/29/24 Lisbeth Johnson [address] [place] [address] Drive 3rd [place] [address] Gastroenterology 03/15/24 Tonya Poole [employer] Field Service Engineer 01/19/24 Raman ([facility]) Registered Nurse 02/29/24 Marcos Verdin MD [facility] [address] [place] [address] Cardiology 03/10/24 Omid Vincent Psychiatry 03/15/24 documented as of this encounter
== END 2024-07-28 14:44 | disposition home or self-care (01) ==
LOC: HO.HGI 13:32
PROVIDERS: PCP Family Medicine; Visit Provider Internal Medicine
DX: K72.90 Hepatic failure, unspecified without coma (principal); K74.60 Unspecified cirrhosis of liver; D64.9 Anemia, unspecified; F10.20 Alcohol dependence, uncomplicated; I25.10 Atherosclerotic heart disease of native coronary artery without angina pectoris; Z95.2 Presence of prosthetic heart valve; Z79.01 Long term (current) use of anticoagulants; Z55.6 Problems related to health literacy; M62.84 Sarcopenia; R54 Age-related physical debility; I42.9 Cardiomyopathy, unspecified
CPT/HCPCS: 99214

== ENCOUNTER → 2024-07-28 13:32 | Outpatient (BNVA) | payer MEDICAID, SELFPAY | PROVIDERS: PCP Family Medicine; Visit Provider Internal Medicine | DX: K72.90 Hepatic failure, unspecified without coma (principal); K74.60 Unspecified cirrhosis of liver; D64.9 Anemia, unspecified; F10.20 Alcohol dependence, uncomplicated; I25.10 Atherosclerotic heart disease of native coronary artery without angina pectoris; M62.84 Sarcopenia; R54 Age-related physical debility; I42.9 Cardiomyopathy, unspecified; Z79.01 Long term (current) use of anticoagulants; Z95.2 Presence of prosthetic heart valve; Z55.6 Problems related to health literacy | CPT/HCPCS: 99212 ==

== ENCOUNTER 2024-08-04 12:42 | Emergency (ER) | payer MEDICAID, SELFPAY ==
--- NOTE | ~2024-08-04 | XR_ITS ---
EXAMINATION: XR CHEST CLINICAL INFORMATION: chest pain COMPARISON: December 08, 2023. TECHNIQUE: 2 views of the chest were obtained. FINDINGS: Pulmonary reticular pattern. No gross consolidation pleural effusion or pneumothorax. Cardiomediastinal silhouette size is normal. Thoracic aorta with tortuosity and calcified plaques. Metallic prosthesis in the aortic valve region. Sternal wires. 2. Intact electrode leads in the right heart chambers. Right-sided pacemaker reservoir. Multilevel thoracic and upper lumbar spondylosis. Vascular clips overlapping the left hemithorax. XR/XR chest 2V IMPRESSION: Chronic interstitial lung disease. No acute airspace disease. Electronically signed by: Mehul Cordova MD 08/04/2024 01:33 PM EDT
--- NOTE | ~2024-08-04 | CT_ITS ---
EXAMINATION: CT CHEST WITHOUT CONTRAST CLINICAL INFORMATION: Left-sided chest pain COMPARISON: CT chest 12/08/2023 TECHNIQUE: Multidetector volumetric CT imaging of the chest was done. Axial MIP volume rendering provided. Sagittal and coronal reformatted images were obtained. This CT examination was performed using dose optimization techniques as appropriate, variously including the following: *Automated exposure control *Adjustment of mA and/or kV according to patient size (this includes techniques or standardized protocols for targeted exams where dose is matched to indication/reason for exam; i.e. extremities or head) *Use of iterative reconstruction technique DLP: 890 FINDINGS: BOILERMAKER ASSEMBLY AND ERECTION: Well-inflated lungs. LUNGS: The lungs are well-expanded and clear acute pneumonic process. There is a 3 mm nodule right middle lobe axial image 87/8, 6 mm nodule left lower lobe adjacent to the major fissure axial image 75/8 platelike atelectasis in the lingula. MEDIASTINUM: Thyroid lobes are symmetrical and normal. The central trachea and bronchial airway is widely patent. Heart size and the great vessels are normal caliber. Then are pacer electrodes in right atrium and right ventricle. No pericardial effusion seen. No abnormal size mediastinal or hilar lymph nodes seen. CORONARY ARTERY CALCIFICATION: Moderate coronary artery calcifications are noted PLEURA: There is no pleural effusion. No pleural mass or thickening. AXILLA: No abnormal axillary lymph nodes seen. UPPER ABDOMEN: Visualized liver, spleen, pancreas, bilateral adrenal glands and the kidneys are unremarkable. No radiopaque gallstones seen. OSSEOUS STRUCTURES: There are multiple left eighth, ninth, 10th and 11th rib old fractures . There are median sternotomy sutures from previous intervention. CT/CT chest wo IV con IMPRESSION: Multiple left eighth, ninth, 10th and 11th rib old fractures. No acute fractures seen. No lytic process. Small insignificant pulmonary nodules. Fleischner guidelines were followed. Electronically signed by: Soto Tripathi MD 08/04/2024 04:45 PM EDT
--- NOTE | ~2024-08-04 | CT_ITS ---
EXAMINATION: CT ABDOMEN AND PELVIS WITHOUT CONTRAST CLINICAL INFORMATION: Abdominal pain and diarrhea. COMPARISON: None available. TECHNIQUE: Multidetector volumetric imaging was performed from the superior aspect of the liver through the pubic symphysis. Sagittal and coronal reformatted images were obtained on the technologist's workstation. This CT examination was performed using dose optimization techniques as appropriate, variously including the following: *Automated exposure control *Adjustment of mA and/or kV according to patient size (this includes techniques or standardized protocols for targeted exams where dose is matched to indication/reason for exam; i.e. extremities or head) *Use of iterative reconstruction technique FINDINGS: LUNG BASES: The visualized lung bases are unremarkable. Heart size is normal. There are pacer electrodes in right atrium and right ventricle. Moderate coronary artery calcifications are present. There are left rib fractures as described on CT chest. LIVER, GALLBLADDER, AND BILIARY TREE: The liver is normal in size, shape, and attenuation. No focal hepatic lesion or biliary ductal dilatation is present. The gallbladder is unremarkable with no evidence of radiopaque gallstones, gallbladder wall thickening, or obvious pericholecystic inflammatory changes. PANCREAS: Unremarkable. SPLEEN: Unremarkable. ADRENAL GLANDS: Unremarkable. KIDNEYS AND URETERS: The kidneys are normal in size, shape, and attenuation. No hydronephrosis, hydroureter, or calculi seen. No perinephric stranding. There are punctate calcification in left renal hilum likely vascular.. BLADDER: Unremarkable. GASTROINTESTINAL TRACT: There is scattered stool and gas seen in colon without distention. The small bowel loops are normal caliber. Appendix is not visualized. The stomach is nondistended no inflammatory process of free air seen. ABDOMINAL WALL: No significant hernia is appreciated. LYMPH NODES: Normal. VASCULAR: There is atherosclerotic calcification of abdominal aorta without aneurysmal dilatation. PELVIC VISCERA: The prostate gland is normal size. No abnormal pelvic lymph nodes or hernia seen. OSSEOUS STRUCTURES: Mildly in this changes with vacuum disc phenomenon L5-S1, L4-5 and L2-3 disc levels. No aggressive lytic process seen. There is a wedge deformity T12 and T10 vertebra likely old. CT/CT abdomen pelvis wo IV con IMPRESSION: No acute intra-abdominal process seen. Fleischner guidelines were followed. Electronically signed by: Soto Tripathi MD 08/04/2024 04:53 PM EDT
--- NOTE | ~2024-08-04 | NM_ITS ---
CLINICAL HISTORY: positive D-dimer. PE? NM Lung Perfusion Comparison: Chest CT from 08/04/2024 Findings: 2.5 mCi technetium 99m MAA used. No ventilation imaging achieved. No medium or large peripheral wedged shaped defects by perfusion imaging. Small right lower defect measures area of air trapping with emphysematous change when comparison CT. Central uptake related to cardiomegaly. Minimal linear peripheral low-attenuation as can be seen with pleural pathology with mild pleural thickening noted on comparison chest CT with left-sided old rib fractures. IMPRESSION: Low probability of pulmonary embolism. This document has been electronically signed by: Jamaal Davies MD on 08/05/2024 02:31:25
[2024-08-04 12:54] VITALS: BP 107/70; PULSE 80; RESP 18; TEMP 36.6; O2SAT 96; BMI 31.3
--- NOTE | 2024-08-04 12:55 | ED.GENADULT ---
HPI - General Adult General Chief complaint: Abdominal Pain Stated complaint: N/V/D Time Seen by Provider: 08/04/24 14:05 Source: patient Mode of arrival: ambulatory Limitations: no limitations History of Present Illness ED Provider: Hero Walker HPI narrative: 64 yold male with pmh of alcohol abuse, GI Bleed, anemia, Dcompensated Cirrhosis presents to the ED for chest pain, left shoulder pain, abdominal pain, and multiple episodes of diarrhea and vomitting since yesterday. patient states diarreha is green. Patient states over 10 episodes of diarrhea. Patient denies any leg swelling or calf pain. Patient denies any tremors. Related Data Home Medications ?Medication ?Instructions ?Recorded ?Confirmed melatonin 5 mg tablet 2 tab PO BEDTIME PRN insomnia 10/18/20 01/23/24 atorvastatin 20 mg tablet 20 mg PO DAILY 11/18/20 01/23/24 blood pressure test kit-large #1 ea 11/18/20 02/09/23 lidocaine 5 % topical patch 1 patch topical DAILY 11/18/20 01/23/24 magnesium oxide 400 mg (241.3 mg 400 mg PO BID 11/18/20 01/23/24 magnesium) tablet pantoprazole 40 mg tablet,delayed 40 mg PO BID 11/18/20 01/23/24 release thiamine HCl (vitamin B1) 100 mg 100 mg PO DAILY 11/18/20 01/23/24 tablet olanzapine 5 mg tablet 1 tab PO BEDTIME 10/10/21 01/23/24 acetaminophen 500 mg tablet 500 mg PO BID PRN Mild Pain (Scale 05/11/22 01/23/24 Score 1-4) albuterol sulfate 90 mcg/actuation 2 puff inhalation Q4H PRN 05/11/22 01/23/24 aerosol inhaler (Ventolin HFA) Respiratory Distress buspirone 10 mg tablet 10 mg PO TID 05/11/22 01/23/24 sacubitril 24 mg-valsartan 26 mg 1 tab PO BID 06/12/22 01/23/24 tablet (Entresto) budesonide-formoterol HFA 160 2 puff inhalation BID 02/09/23 01/23/24 mcg-4.5 mcg/actuation aerosol inhaler (Symbicort) clopidogrel 75 mg tablet 75 mg PO DAILY 05/17/23 01/23/24 acamprosate 333 mg tablet,delayed 666 mg PO BID 09/15/23 01/23/24 release hydroxyzine pamoate 50 mg capsule 100 mg PO BEDTIME PRN insomnia 01/23/24 01/23/24 warfarin 5 mg tablet 5 mg PO DAILY 01/23/24 01/23/24 lactulose 10 gram/15 mL oral 30 ml PO TID 04/28/24 solution warfarin 10 mg tablet 10 mg PO DAILY 07/07/24 ferrous sulfate 325 mg (65 mg 325 mg PO QAM 07/28/24 iron) tablet,delayed release metoprolol succinate 25 mg 25 mg PO QAM 07/28/24 tablet,extended release 24 hr nicotine 14 mg/24 hr daily 1 patch topical QAM 07/28/24 transdermal patch quetiapine 50 mg tablet 50 mg PO DAILY PRN 07/28/24 Previous Rx's ?Medication ?Instructions ?Recorded furosemide 40 mg tablet 40 mg PO DAILY #30 tabs 05/29/23 rifaximin 550 mg tablet 550 mg PO BID 90 days #180 tabs 03/17/24 Allergies Allergy/AdvReac Type Severity Reaction Status Date / Time lorazepam [From ATIVAN] AdvReac Severe OPPOSITE Verified 08/04/24 12:56 EFFECT PSYCOTIC EFECTS Review of Systems Review of Systems: abdominal pain, chest pain, diarrhea, nuasea, and vomitting. Yes all other systems are reviewed and are negative [facility] Past Medical History Medical History Sepsis Rhabdomyolysis EDGAR (acute kidney injury) Supratherapeutic INR Fall Acute hyponatremia Intracranial hemorrhage Coronary artery disease Chronic systolic CHF (congestive heart failure) Hypertension Short-segment Harrell's esophagus Pacemaker Skull fracture Alcoholic liver disease Cocaine abuse Alcohol abuse Surgical History Aortic valve replaced S/P CABG (coronary artery bypass graft) H/O aortic valve replacement History of esophagogastroduodenoscopy (EGD) Social History Social History Household Members: None Housing: Apartment Do you presently have visiting nurse or other home services: Yes (vna dub room engineer) Alcohol intake: current Alcohol intake frequency: a few times a week Alcohol type: beer Comment: pt refused, to have assistance with ambulation, chair and bed alarm Patient Tobacco Use Status: Current everyday Tobacco user Tobacco use type: Cigarette Cigarette Packs Per Day: 1 Cigarettes Per Day: 20.0 Second Hand Smoke Exposure: No Substance Use Type: Marijuana Advance Directives: Yes Advance Directives on File: Yes Advance Directives Date on File: 10/11/21 service: No Current occupational status: unemployed Physical Exam ED Vital Signs: Vital Signs - 24 hr 08/04/24 19:00 08/04/24 19:43 Temperature 97.4 F 97.4 F Pulse Rate 68 68 Respiratory Rate 16 16 Blood Pressure 135/70 135/70 Pulse Oximetry 97 97 Oxygen Delivery Method Room Air Room Air BMI result Body Mass Index 31.3 Const General: cooperative, healthy appearing, comfortable, no acute distress, well developed, alert, awake and Physically active Orientation/consciousness: patient oriented x3 HENMT Head: Yes normal to inspection, Yes No palpable skull fracture present, Yes normocephalic and Yes atraumatic Ears: hearing grossly normal bilaterally, external ears normal, TM's normal bilaterally, TM normal on the right and TM normal on the left Throat: Yes posterior oropharynx normal, Yes tonsils normal and Yes uvula midline Eyes General: appearance normal, both eyes and all related structures Neck Neck: Yes normal visual inspection, Yes full ROM, Yes no lymphadenopathy, Yes no meningeal signs, Yes trachea midline, Yes supple, No anterior neck swelling and No tender Chest Chest palpation & inspection: normal inspection of the chest and normal palpation of entire chest wall Resp Effort & Inspection: normal respiratory effort and able to speak in complete sentences Auscultation: clear to auscultation bilaterally Cardio Jugular venous distension: no JVD Heart sounds: S1 normal heart sound present and S2 normal heart sound present GI Inspection: Yes normal to inspection Palpation (GI): Soft to palpation, not firm, nontender, no guarding and not rigid General: Yes no CVA tenderness Back/Spine/Pelvis Back: no CVA tenderness and No back tenderness Skin General skin exam: no rashes or lesions noted, elasticity normal and turgor normal Neuro General: patient oriented x3, gait normal, tone normal, moves all extremities, Normal light touch and pain sensation, no meningeal signs, no focal motor deficits, CN's II-XI intact bilaterally and normal sensation to monofilament Extrem General: Yes normal to inspection, Yes full ROM and Yes capillary refill normal Psych Appearance: grossly normal, well kempt and not disheveled Course Course Course Narrative: This is an RME performed by Spenser Daniels CNP: Additional HPI, ROS, PE not included below will be deferred to primary provider. Patient is a 64-year-old male who presents emergency department for evaluation with the pain from the left shoulder across his chest down into the abdomen per the right lower quadrant and radiating into the back. Associated with multiple bouts of vomiting and diarrhea. Plan: Serum labs, EKG, urinalysis, viral serologies Reevaluation(s) Reevaluation #1: 1934 -- I received patient in sign-out from Hero pending repet chem and VQ scan results. > patient is sitting comfortably in exam room, eating. I was called to patient's bedside as he informed staff interpreter that he would like to leave the ED. I use staff interpreter to communicate with patient. I informed him that we are waiting for his V/Q scan and that it should not be too much longer. He states that he has not slept in 2 days and does not wish to stay here anymore. I informed patient that we are waiting on this imaging to definitively rule out whether or not he has a clot in his lungs. I informed patient of the risks of leaving the ED prior to this imaging resulting. I informed patient that he could if he leaves the ED today. He verbalizes understanding and states that he would like to sign AMA paperwork and leave the ED. > I have reviewed all other workup results. CBC without leukocytosis or left shift. H&H stable. D-dimer mildly elevated to 336 - age adjusted cutoff 315. V/Q scan pending. Initial chemistry showing EDGAR with BUN of 30 and creatinine of 1.80 which improved to BUN of 26 and creatinine of 1.40 after fluids. Liver function WNL. BNP 117. Trop WNL x2. Urine without infection. Negative for COVID, flu, RSV. On chest CT, there are multiple left 8///11 old rib fractures. No acute rib fractures. Small pulmonary nodules noted. No effusion or infiltrate/consolidation. CT abdomen/pelvis unremarkable. Patient was unable to provide us with a stool sample for GI panel and C diff testing. > patient received 2 L of normal saline, Pepcid and Zofran. tolerating PO. alert, oriented, capable of making his own decisions. he will be signing out AMA after risks of this were discussed with him. Medications Administered Discontinued Medications Generic Name Dose Route Start Last Admin Trade Name Jessenia PRN Reason Stop Dose Admin Famotidine 20 mg 08/04/24 14:20 08/04/24 14:53 Famotidine/Pf 20 Mg/2 Ml Vial IVPUSH 08/04/24 14:21 20 mg ONCE ONE Administration Sodium Chloride 1,000 mls @ 999 mls/hr 08/04/24 14:20 08/04/24 15:42 Ns IV 08/04/24 15:20 Infused .Q1H1M STA Infusion Sodium Chloride 1,000 mls @ 999 mls/hr 08/04/24 15:02 08/04/24 16:45 Ns IV 08/04/24 16:02 Infused .Q1H1M STA Infusion Ondansetron HCl 4 mg 08/04/24 14:20 08/04/24 14:53 Ondansetron Hcl 4 Mg/2 Ml Vial IVPUSH 08/04/24 14:21 4 mg ONCE ONE Administration Medical Decision Making Medical Decision Making [facility] Narrative: 64 yold female present to the ED abdominal pain and chest pain with diarrhea. C.diff and Stool Sample. Patient is EDGAR with low GFR. Radiology does not recommend IV Chest and abdomen due to GFR and EDGAR. Dry CT scan ordered. D-dimer 330. NUclear profusion scan orderd. Chest CT, CT scan pending. Patient is not will like to eat, but patient informed to wake to results. Fluids Pepcid ordered. Second troponin repeat chemistry ordered 7:00pm: Patient Chest CT scan and abdominal CT sacn showed no new acute etiologies. Patient signed out to ANA Seals to follow NM pulmonary perfusion to rule out PE. Patient is eating food and walking around the ED. C.diff and stool sample is still pending. Differential Diagnosis Differential Diagnoses: The differential diagnosis associated with the presentation includes (Colitis, small-bowel obstruction, COVID, influenza, RSV, PE, pneumonia, viral in his) Admission/Observation Consideration of admission/observation: Escalation of care including admission/observation considered Lab Data [facility] Lab Attestation statement: I reviewed the patient's lab results. 08/04/24 13:34 08/04/24 17:49 Labs: Lab Results 05/02/25 05/02/25 05/02/25 Range/Units 13:34 15:57 16:52 WBC 7.3 (4.8-10.8) X10*3/uL RBC 4.56 L (4.60-5.80) X10*6/uL Hgb 14.2 (14.0-18.0) g/dl Hct 41.6 L (42.0-52.0) % MCV 91.2 (80.0-98.0) fL MCH 31.1 (27.0-33.0) pg MCHC 34.1 (31.0-36.0) g/dl RDW 13.9 (11.0-16.0) % Plt Count 235 (160-400) X10*3/uL MPV 9.5 (9.4-12.4) fL Immature Gran % (Auto) 0.4 (0.0-0.4) % Neut % (Auto) 58.3 (45-73) % Lymph % (Auto) 30.1 (20-40) % Talbot % (Auto) 8.7 (2-11) % Eos % (Auto) 1.4 (0-4) % Baso % (Auto) 1.1 (0-2) % Lymph # (Auto) 2.2 (1.2-4.9) X10*3/uL Talbot # (Auto) 0.6 (0.1-1.2) X10*3/uL Eos # (Auto) 0.1 (0.0-0.4) X10*3/uL Baso # (Auto) 0.1 (0.0-0.2) X10*3/uL Abs Immat Gran (auto) 0.03 (0.00-0.03) X10*3/uL Absolute Neuts (auto) 4.2 (2.0-8.3) x10*3/uL Absolute Nucleated RBC 0.000 (0.0-0.012) X10*3/uL Nucleated RBC % (auto) 0.0 (0.0-0.2) /100WBC PT 29.5 H D (10.9-12.4) SEC INR 2.5 H (0.9-1.1) D-Dimer High Sensitivty 336 NG/ML Sodium 138 (135-145) mmol/L Potassium 3.7 (3.3-5.1) mmol/L Chloride 108 (96-108) mmol/L Carbon Dioxide 21 L (22-29) mmol/L Anion Gap 13 (12-20) BUN 30 H (9-16) mg/dL Creatinine 1.80 H (0.5-1.4) mg/dL Estim Creat Clear Calc 43.6 Estimated GFR 38 Random Glucose 104 (60-115) mg/dL Calcium 9.0 (8.4-10.2) mg/dL Magnesium 1.7 (1.6-2.6) mg/dL Total Bilirubin 0.6 (0.0-1.0) mg/dL AST 25 (5-37) U/L ALT 23 (0-40) U/L Alkaline Phosphatase 116 (39-117) U/L Troponin I High Sens 7.6 D 5.5 (<3.5-35.0) ng/L B-Natriuretic Peptide 117 H (<100) pg/mL Total Protein 7.6 (6.5-8.0) g/dL Albumin 4.0 (3.5-5.0) g/dL Lipase 19 (8-78) U/L Urine Color Yellow Urine Appearance Clear Urine pH 5.5 (5.0-9.0) Ur Specific Rentz 1.020 (1.005-1.025) Urine Protein Trace (Neg-Trace) mg/dL Urine Glucose (UA) Negative (Negative) mg/dL Urine Ketones Negative (Negative) mg/dL Urine Blood Negative (Negative) Urine Nitrite Negative (Negative) Ur Leukocyte Esterase Negative (Negative) Influenza Type A (PCR) NEGATIVE (Negative) Influenza Type B (PCR) NEGATIVE (Negative) RSV RNA Qual (PCR) NEGATIVE (Negative) SARS-CoV-2 RNA (RT-PCR) NEGATIVE (Negative) 08/04/24 Range/Units 17:49 WBC (4.8-10.8) X10*3/uL RBC (4.60-5.80) X10*6/uL Hgb (14.0-18.0) g/dl Hct (42.0-52.0) % MCV (80.0-98.0) fL MCH (27.0-33.0) pg MCHC (31.0-36.0) g/dl RDW (11.0-16.0) % Plt Count (160-400) X10*3/uL MPV (9.4-12.4) fL Immature Gran % (Auto) (0.0-0.4) % Neut % (Auto) (45-73) % Lymph % (Auto) (20-40) % Talbot % (Auto) (2-11) % Eos % (Auto) (0-4) % Baso % (Auto) (0-2) % Lymph # (Auto) (1.2-4.9) X10*3/uL Talbot # (Auto) (0.1-1.2) X10*3/uL Eos # (Auto) (0.0-0.4) X10*3/uL Baso # (Auto) (0.0-0.2) X10*3/uL Abs Immat Gran (auto) (0.00-0.03) X10*3/uL Absolute Neuts (auto) (2.0-8.3) x10*3/uL Absolute Nucleated RBC (0.0-0.012) X10*3/uL Nucleated RBC % (auto) (0.0-0.2) /100WBC PT (10.9-12.4) SEC INR (0.9-1.1) D-Dimer High Sensitivty NG/ML Sodium 139 (135-145) mmol/L Potassium 3.9 (3.3-5.1) mmol/L Chloride 113 H (96-108) mmol/L Carbon Dioxide 15 L (22-29) mmol/L Anion Gap 15 (12-20) BUN 26 H (9-16) mg/dL Creatinine 1.40 (0.5-1.4) mg/dL Estim Creat Clear Calc 56.1 Estimated GFR 51 Random Glucose 97 (60-115) mg/dL Calcium 8.1 L D (8.4-10.2) mg/dL Magnesium (1.6-2.6) mg/dL Total Bilirubin 0.5 (0.0-1.0) mg/dL AST 20 (5-37) U/L ALT 20 (0-40) U/L Alkaline Phosphatase 98 (39-117) U/L Troponin I High Sens (<3.5-35.0) ng/L B-Natriuretic Peptide (<100) pg/mL Total Protein 6.6 (6.5-8.0) g/dL Albumin 3.4 L (3.5-5.0) g/dL Lipase (8-78) U/L Urine Color Urine Appearance Urine pH (5.0-9.0) Ur Specific Rentz (1.005-1.025) Urine Protein (Neg-Trace) mg/dL Urine Glucose (UA) (Negative) mg/dL Urine Ketones (Negative) mg/dL Urine Blood (Negative) Urine Nitrite (Negative) Ur Leukocyte Esterase (Negative) Influenza Type A (PCR) (Negative) Influenza Type B (PCR) (Negative) RSV RNA Qual (PCR) (Negative) SARS-CoV-2 RNA (RT-PCR) (Negative) Independent Interpretation I performed an independent interpretation of an: EKG (Negative STEMI) and CT Scan Radiology Impression Discussion of test interpretation with radiology: I have reviewed the radiologist's reading. Independent Historian Clinical information obtained from an independent historian. History obtained from or confirmed by: Other (patient) Discharge Plan Discharge Clinical Impression: EDGAR (acute kidney injury), Elevated d-dimer Patient Disposition: Left Against Medical Advice Additional Instructions: You were choosing to leave the ED today without results of your chest imaging. We discussed the risks of leaving before imaging results - worsening pain, disability, and even . You verbalized understanding and are choosing to leave the ED against medical advice. You are welcome to return at any time for further treatment or evaluation. Please follow up with your outpatient provider. Return with any new or worsening symptoms. In the case of an emergency call 911. Prescriptions: No Action rifaximin 550 mg tablet 550 mg PO BID 90 Days Qty: 180 1RF melatonin 5 mg tablet 2 tab PO BEDTIME PRN (Reason: insomnia) olanzapine 5 mg tablet 1 tab PO BEDTIME acetaminophen 500 mg Tablet 500 mg PO BID PRN (Reason: Mild Pain (Scale Score 1-4)) buspirone 10 mg Tablet 10 mg PO TID albuterol sulfate [Ventolin HFA] 90 mcg/actuation Hfa Aerosol Inhaler 2 puff INHALATION Q4H PRN (Reason: Respiratory Distress) acamprosate 333 mg tablet,delayed release (DR/EC) 666 mg PO BID hydroxyzine pamoate 50 mg capsule 100 mg PO BEDTIME PRN (Reason: insomnia) warfarin 5 mg tablet 5 mg PO DAILY budesonide-formoterol [Symbicort] 160-4.5 mcg/actuation HFA aerosol inhaler 2 puff inhalation BID clopidogrel 75 mg tablet 75 mg PO DAILY furosemide 40 mg Tablet 40 mg PO DAILY Qty: 30 0RF Protocol: Hold for SBP< HOLD for SBP < : 90 pantoprazole 40 mg tablet,delayed release (DR/EC) 40 mg PO BID magnesium oxide 400 mg (241.3 mg magnesium) tablet 400 mg PO BID thiamine HCl (vitamin B1) 100 mg tablet 100 mg PO DAILY atorvastatin 20 mg tablet 20 mg PO DAILY (DME) blood pressure test kit-large Kit See Rx Instructions .ROUTE DIRECTED Qty: 1 Rx Instructions: As directed lidocaine 5 % adhesive patch,medicated 1 patch topical DAILY Protocol: Apply to: Apply to: AFFECTED AREA Entresto 24-26 mg tablet 1 tab PO BID lactulose 10 gram/15 mL solution 30 ml PO TID quetiapine 50 mg tablet 50 mg PO DAILY PRN nicotine 14 mg/24 hr patch 24 hour 1 patch topical QAM metoprolol succinate 25 mg tablet extended release 24 hr 25 mg PO QAM ferrous sulfate 325 mg (65 mg iron) tablet,delayed release (DR/EC) 325 mg PO QAM warfarin 10 mg tablet 10 mg PO DAILY Stand Alone Forms: Against Medical Advice Interventions: ED Discharge Assessment Last Done: 08/04/24 19:43 Discharge Date/Time: 08/04/24 19:45 Print Language: Mohawk
--- NOTE | 2024-08-04 12:57 | ECG_ITS ---
Test Reason : CHEST PAIN Blood Pressure : */* mmHG Vent. Rate : 74 BPM Atrial Rate : 74 BPM P-R Int : 162 ms QRS Dur : 204 ms QT Int : 478 ms P-R-T Axes : -27 26 229 degrees QTcB Int : 530 ms Atrial-sensed ventricular-paced rhythm with occasional Premature ventricular complexes Abnormal ECG When compared with ECG of 23-Jan-2024 02:37, Premature ventricular complexes are now Present Vent. rate has decreased by 6 bpm Referred By: Greta Daniels Electronically Signed By: Roosevelt Woodruff
[2024-08-04 13:48] LABS: INTERNATIONAL NORM RATIO 2.5 (0.9-1.1); Prothrombin Time 29.5 SEC (10.9-12.4)
--- OUTSIDE RECORDS SUMMARY | 2024-08-04 13:53 | XMS_ITS | Encounter Summary ---
Author Organization [facility] Address [address] [place] [address] Care Team Providers Care Graphite Grinder Name Role Phone Nathalie Hsu MD Primary Care Provider [phone] Shannan Barrow RN Unavailable [phone] Lisbeth Johnson Unavailable Reason for Visit * Reason Onset Date Comments Dr. Lamas medication 06/20/2024 Encounter Details Date Type Department Care Team ([facility] st Contact Info) Description 06/20/2024 Telephone [facility] [address], [place] [phone] Panchito Lamas DDS [address], [place] [phone] Dr. Lamas medication Social History Tobacco Use [...] Care Team (Late st Contact Info) Description 08/11/2024 1:15 PM EDT Office Visit [facility] [address] [place] [address] Renny Holloway MD [address] [place] [address] 09/19/2024 10:00 AM EDT Office Visit [facility] [address] [place] [address] Panchito Lamas, NETTAS [address] [place] [address] 11/09/2024 1:00 PM EDT Office Visit [facility] [address] [place] [address] Zabrina Ann, OD [address] [place] [address] 01/08/2025 10:00 AM EDT Office Visit [facility] [address] [place] [address] Ulises Chiquita [address] [place] [address] documented as of this encounter Visit Diagnoses Not on filedocumented in this encounter Additional Health Concerns Assessment Noted Time PHQ-9 Depression Total Score: 0 06/09/19 24 9:13 AM EST documented as of this encounter Care Teams Graphite Grinder Relationship Specialty Start Date End Date Nathalie Hsu MD [address] [place] [id number] PCP - General Family Medicine 09/27/13 Shannan Barrow, KHAI [address] [place] [phone] Registered Nurse 02/29/24 Lisbeth Johnson [address] [place] [address] Drive [address] [place] [address] Gastroenterology 03/15/24 Tonya Poole Turbine AssemblerGathering Machine Setter 01/19/24 Raman [facility]) Registered Nurse 02/29/24 MD Wilbert Louisepden and [facility] [address] [place] [address] Cardiology 03/10/24 Omid Vincent Psychiatry 03/15/24 documented as of this encounter
--- OUTSIDE RECORDS SUMMARY | 2024-08-04 13:53 | XMS_ITS | Encounter Summary ---
Author Organization [facility] Address [address] [place] [address] Care Team Providers Care Operations Support Manager Name Role Phone Nathalie Hsu MD Primary Care Provider [phone] Shannan Barrow RN Unavailable [phone] AlexLisbeth Unavailable Reason for Visit * Reason Onset Date Comments Anticoagulation 08/02/2024 Encounter Details Date Type Department Care Team (Late st Contact Info) Description 08/02/2024 Telephone [facility] [address] [place], [place] [phone] Shannan Barrow, RN [address] [place], [place] [phone] Anticoagulation Social History Tobacco Use Types Packs/Day [...] Telephone Encounter - Shannan Barrow RN - 08/02/2024 10:10 AM EDT S: Pt is due for PT/INR yesterday due to hx of DVT's. KAVIN Duff states she forgot to call yesterday. Pt's target INR is 2.5-3.5. This RN spoke with KAVIN Duff who denies any new medications or changesin diet. Pt has been consuming EtOH again. [facility] continues to encourage abstinence in alcoholic beverages which she reports pt is annoyed with. Pt has been compliant with INR draws. Has appy with Dr Holloway 08/11/24. O: INR today is: 3.8. Current plan: 2.5mg , Th, Sa/ 5mg the rest of the week. A: Hx of DVT Risk for blood clot due to sub therapeutic INR Hx of afib Hx of prosthetic heart valve P: Advised to decrease dose to 5mg W, F, Benoit/ 2.5mg the rest of the week and recheck INR 08/08/24. Please try to abstain from alcohol use. [facility] aware of dosing and draw date. Shannan Barrow, RN documented in this encounter Plan of Treatment Upcoming Encounters Date Type Department Care Team (Late st Contact Info) Description 08/11/2024 1:15 PM EDT Office Visit [facility] [address] [place] [address] Renny Holloway MD [address] [place] [address] 09/19/2024 10:00 AM EDT Office Visit [facility] [address] [place] [address] Panchito Lamas, DDS [address] [place] [address] 11/09/2024 1:00 PM EDT Office Visit [facility] [address] [place] [address] Seth, Zabrina, OD [address] [place] [address] 01/08/2025 10:00 AM EDT Office Visit [facility] [address] [place] [address] Ulises, Chiquita [address] [place] [address] documented as of this encounter Procedures Procedure Name Priority Date/Time Associated Diagnosis Comments PROTHROMBIN TIME-INR Routine 08/01/2024 documented in this encounter Results * (ABNORMAL) Prothrombin Time-INR (08/01/2024) INR 3.80(H) 2.50 - 3.50 EXTERNAL LAB Protime EXTERNAL [...] as of this encounter Care Teams Operations Support Manager Relationship Specialty Start Date End Date Nathalie Hsu MD [address] [place] [address] PCP - General Family Medicine 09/27/13 Shannan Barrow, RN [address] [place] [address] Registered Nurse 02/29/24 Lisbeth Johnson [address] [place] [address] [address] [place] [address] Gastroenterology 03/15/24 Tonya Poole JailkeeperHull Grinder 01/19/24 Raman ([facility]) Registered Nurse 02/29/24 MD Enoc Louise and [facility] [address] [place] [address] Cardiology 03/10/24 Omid Vincent Psychiatry 03/15/24 documented as of this encounter
--- OUTSIDE RECORDS SUMMARY | 2024-08-04 13:53 | XMS_ITS | Encounter Summary ---
Author Organization [employer] Address [address] [facility] [address]t [place] [address] Care Team Providers Care Construction Tech Name Role Phone Nathalie Hsu MD Primary Care Provider [phone]- [phone] Shannan Barrow RN Unavailable [phone] Lisbeth Johnson Unavailable Reason for Visit * Reason Onset Date Comments PT1 08/02/2024 Encounter Details Date Type Department Care Team (Late st Contact Info) Description 08/02/2024 Telephone [facility] MEDICINE [address] [place], [place] [phone] Nathalie Hsu MD [address] [place], [place] [phone] PT1 Social History Tobacco Use Types Packs/Day Years [...] encounter Miscellaneous Notes * Telephone Encounter - Chiquita Mendoza - 08/02/2024 8:47 AM EDT Patient calling requesting PT1 Home Address verified: Y/N: Yes Provider name or facility name: [facility] Facility Address: [address] [place] [address] Escort needed: Y/N: No Do you have a wheelchair: Y/N: No If yes- Manual or electric: n/a Visits: 2 x a month documented in this encounter Plan of Treatment Upcoming Encounters Date Type Department Care Team ([facility] st Contact Info) Description 08/11/2024 1:15 PM EDT Office Visit [facility] MEDICINE [address] [place] [address] Renny Holloway MD [address] [place] [address] 09/19/2024 10:00 AM EDT Office Visit [facility] ADULT DENTAL [address] [place] [address] Panchito Lamas, DDS [address] [place] [address] 11/09/2024 1:00 PM EDT Office Visit [facility] OPTOMETRY [address] [place] [address] Seth, Zabrina, OD 230 [place] [address] 01/08/2025 10:00 AM EDT Office Visit [facility] ADULT DENTAL [address] [place] [address] Chiquita Montgomery [address] [place] [address] documented as of this encounter Visit Diagnoses Not on filedocumented in this encounter Additional Health Concerns Assessment Noted Time PHQ-9 Depression Total Score: 0 06/09/19 9:13 AM EST documented as of this encounter Care Teams Construction Tech Relationship Specialty Start Date End Date Nathalie Hsu MD [address] [place] [address] PCP - General Family Medicine 09/27/13 Shannan Barrow, KHAI [address] [place] [address] Registered Nurse 02/29/[address] 3rd [place] [address] Gastroenterology 03/15/24 Tonya Poole Hide DropperTemplate Reproduction Technician 01/19/24 Raman (A [facility]) Registered Nurse 02/29/24 Marcos Verdin MD [facility] [address] [place] [address] Cardiology 03/10/24 Omid Vincent Psychiatry 03/15/24 documented as of this encounter
--- OUTSIDE RECORDS SUMMARY | 2024-08-04 13:53 | XMS_ITS | Encounter Summary ---
Author Organization [employer] Address [address] [facility] [address] 7t [place] [address] Care Team Providers Care Wrapper Cashier Name Role Phone Nathalie Hsu MD Primary Care Provider [phone]- [phone] Shannan Barrow RN Unavailable [phone] Lisbeth Johnson Unavailable Reason for Visit * Reason Onset Date Comments PT-1 05/26/2024 Encounter Details Date Type Department Care Team (Late st Contact Info) Description 05/26/2024 Telephone [facility] MEDICINE [address] [place], [place] [phone] Nathalie Hsu MD [address] [place], [place] [phone] PT-1 Social History Tobacco Use Types Packs/Day [...] Y/N: Yes Provider name or facility name: [address] [address] Escort needed: Y/N: No Do you have a wheelchair: Y/N: No If yes- Manual or electric: N/A Visits: (amount of visits) ( x monthly, weekly, daily) 2 times per month. documented in this encounter Plan of Treatment Upcoming Encounters Date Type Department Care Team (Late st Contact Info) Description 08/11/2024 1:15 PM EDT Office Visit [facility] MEDICINE [address] [place] [address] Renny Holloway MD 230 [place] [address] 09/19/2024 10:00 AM EDT Office Visit [facility] ADULT DENTAL [address] [place] [address] Panchito Lamas, DDS 230 [place] [address] 11/09/2024 1:00 PM EDT Office Visit [facility] OPTOMETRY [address] [place] [address] Seth, Zabrina, OD 230 [place] [address] 01/08/2025 10:00 AM EDT Office Visit [facility] ADULT DENTAL [address] [place] [address] Adalberto Montgomeryaris [address] [place] [address] documented as of this encounter Visit Diagnoses Not on filedocumented in this encounter Additional Health Concerns Assessment Noted Time PHQ-9 Depression Total Score: 0 06/09/19 24 9:13 AM EST documented as of this encounter Care Teams Wrapper Cashier Relationship Specialty Start Date End Date Nathalie Hsu MD 230 [place] [address] PCP - General Family Medicine 09/27/13 Shannan Barrow, KHAI [address] [place] [address] Registered Nurse 02/29/[address] 3rd [place] [address] Gastroenterology 03/15/24 Tonya Poole Retail Client Solutions AnalystSystems Engineer 01/19/24 Raman (A [facility]) Registered Nurse 02/29/24 Marcos Verdin MD [place] [facility] [address] [place] [address] Cardiology 03/10/24 Omid Vincent Psychiatry 03/15/24 documented as of this encounter
--- OUTSIDE RECORDS SUMMARY | 2024-08-04 13:53 | XMS_ITS | Encounter Summary ---
Author Organization [employer] Address [address] 7t [place] [address] Care Team Providers Care Foreman/Pile Driving And Erection Name Role Phone Nathalie Hsu MD Primary Care Provider [phone]- [phone] Shannan Barrow RN Unavailable [phone] Lisbeth Johnson Unavailable Reason for Visit * Reason Comments Med Refill Encounter Details Date Type Department Care Team (Late st Contact Info) Description 07/04/2024 Refill [facility] ADULT DENTAL 230 [place] [address] Panchito Lamas DDS 230 [place], [place] [phone] Severe dental caries; Dental root caries; Advanced [...] Description 08/11/2024 1:15 PM EDT Office Visit [facility] MEDICINE 230 [place] [address] Renny Holloway MD 230 [place] [address] 09/19/2024 10:00 AM EDT Office Visit [facility] ADULT DENTAL 230 [place] [address] Panchito Lamas DDS 230 [place] [address] 11/09/2024 1:00 PM EDT Office Visit [facility] OPTOMETRY [address] [place] [address] Zabrina Ann, OD 230 [place] [address] 01/08/2025 10:00 AM EDT Office Visit [facility] ADULT DENTAL 230 [place], [place] [phone] Chiquita Montgomery 230 [place] [address] documented as of this encounter Visit Diagnoses Diagnosis Severe dental caries Dental root caries Advanced periodontitis Excessive attrition of teeth, limited to enamel Missing teeth, acquired Dental calculus Accretions on teeth documented in this encounter Additional Health Concerns Assessment Noted Time PHQ-9 Depression Total Score: 0 06/09/19 24 9:13 AM EST documented as of this encounter Care Teams Foreman/Pile Driving And Erection Relationship Specialty Start Date End Date Nathalie Hsu MD 230 [place] [address] PCP - General Family Medicine 09/27/13 Shannan Barrow, KHAI [address] [place] [address] Registered Nurse 02/29/24 Lisbeth Johnson [address] [place] [address] 3[address] [place] [address] Gastroenterology 03/15/24 Tonya Poole Airplane Gas Tank Liner AssemblerBoiler Reliner 01/19/24 Raman ([facility]) Registered Nurse 02/29/24 Marcos Verdin MD [place] [facility] [address] [place] [address] Cardiology 03/10/24 Omid Vincent Psychiatry 03/15/24 documented as of this encounter
--- OUTSIDE RECORDS SUMMARY | 2024-08-04 13:53 | XMS_ITS | Encounter Summary ---
Author Organization [employer] [facility] Address [address] [address] [facility] [facility] [address] 7t [place] [address] Care Team Providers Care Forest Nursery Supervisor Name Role Phone Nathalie Hsu MD Primary Care Provider [phone]- [phone] Shannan Barrow RN Unavailable [phone] Lisbeth Johnson Unavailable Reason for Visit * Reason Comments Filling Encounter Details Date Type Department Care Team (Late st Contact Info) Description 08/03/2024 8:00 AM EDT Office Visit [facility] ADULT DENTAL 230 [place] [address] Panchito Lamas DDS 230 [place], [place] [phone] Severe dental caries (Primary Dx) Social History Tobacco Use Types [...] Sign Reading Time Taken Comments Blood Pressure 128/74 08/03/2024 7:56 AM EDT Pulse - - Temperature - - Respiratory Rate - - Oxygen Saturation - - Inhaled Oxygen Concentration - - Weight - - Height - - Body Mass Index - - documented in this encounter Progress Notes * Panchito Lamas DDS - 08/03/2024 8:00 AM EDT Patient ID: Omid Caballero is a 64 y.o. male. Time Out: Timeout Date: 08/03/24, Timeout Time: 756 (composite on tooth #29) Location: [facility] Tooth: Mandible and #29 Procedure: Restorationist Verified the above with patient, electrical assistant, and provider. Confirmed via patient's chart, intraorally and by radiographs. Caramel Cutter Machine: not applicable Chief Complaint Patient presents with Filling Medical Hx: Vitals: Blood pressure 128/74. Medications, Med Hx reviewed with patient and updated in chart. Consent Obtained: The risks, benefits, indications, potential complications, and alternatives were explained to the patient and informed consent was obtained with good understanding. Treatment Provided: Dental procedures in this visit D2393 - RESIN-BASED COMPOSITE - 3 SURF, POSTERIOR 29 DOL (Completed) Service provider: Panchito Lamas DDS Billing provider: Panchito Lamas DDS D9450 - CASE PRESENTATION, DETAILED AND EXTENSIVE TREATMENT PLANNING (Completed) Service provider: Panchito Lamas DDS Billing provider: Panchito Lamas DDS Diagnosis: Severe caries Topical: 20% Benzocaine Anesthesia: 2% Lidocaine (Xylocaine) w/ 1:100,000 epinephrine Number of Cartridges: 1 Injection Type: Mental nerve block and Intrapapillary injection Confirmed profound anesthesia. Isolation: high speed suction and cotton rolls Prep: All caries removed and Preparation finalized Matrix: Tofflemire and wedge Etch: 37% Phosphoric Acid Etch Desensitizer: Gluma Liner/Base: LimeLite Knott: I-Knott Restorationist Material: Paradigm Composite Shade: A3 Polished. Occlusion & contacts verified. Patient satisfied with comfort and esthetics. Omid was advised about post op hypersensitivity and potential composite resin premature fracture or dislodgement due to extension of the lesion, if failure occur, options' reevaluation will be necessary. Pt seemed to understand and agreed all the conditions. Patient tolerated procedure well. Post-operative instructions were given. Patient departed alert, oriented, and in stable condition. NV: f/U as needed / Manager Licensing: Roxy Cleaning Dentist: Panchito Lamas DDS documented in this encounter Plan of Treatment Upcoming Encounters Date Type Department Care Team (Late st Contact Info) Description 08/11/2024 1:15 PM EDT Office Visit [facility] MEDICINE [address] [place], [place] [phone] Renny Holloway MD 230 [place] [address] 09/19/2024 10:00 AM EDT Office Visit [facility] ADULT DENTAL [address] [place], [place] [phone] Panchito Lamas DDS 230 [place] [address] 11/09/2024 1:00 PM EDT Office Visit [facility] OPTOMETRY [address] [place] [address] Seth, Zabrnia, OD 230 [place] [address] 01/08/2025 10:00 AM EDT Office Visit [facility] ADULT DENTAL 230 [place] [address] Ulises, Chiquita 230 [place] [address] documented as of this encounter Procedures Procedure Name Priority Date/Time Associated Diagnosis Comments 29 DOL RESIN-BASED COMPOSITE - 3 SURF, POSTERIOR Routine 08/03/2024 8:00 AM EDT CASE PRESENTATION, DETAILED AND EXTENSIVE TREATMENT PLANNING Routine 08/03/2024 8:00 AM EDT documented in this encounter Visit Diagnoses Diagnosis Severe dental caries- Primary documented in this encounter Additional Health Concerns Assessment Noted Time PHQ-9 Depression Total Score: 0 06/09/19 24 9:13 AM EST documented as of this encounter Care Teams Forest Nursery Supervisor Relationship Specialty Start Date End Date Nathalie Hsu MD 230 [place] [address] PCP - General Family Medicine 09/27/13 Shannan Barrow, RN [address] [place] [address] Registered Nurse 02/29/[address] 3rd [place] [address] Gastroenterology 03/15/24 Tonya Poole Supervisor Ticket SalesAuto Mechanic Supervisor 01/19/24 Raman (A [facility]) Registered Nurse 02/29/24 Marcos Verdin MD [place] [facility] [address] [place] [address] Cardiology 03/10/24 Omid Vincent Psychiatry 03/15/24 documented as of this encounter
[2024-08-04 13:54] LABS: Imm Gran Abs Auto 0.03 X10*3/uL (0.00-0.03); Imm Gran Pct Auto 0.4 % (0.0-0.4); Mean Platelet Volume 9.5 fL (9.4-12.4)
--- OUTSIDE RECORDS SUMMARY | 2024-08-04 13:54 | XMS_ITS | Encounter Summary ---
Author Organization [employer] Address [address] 7t [place] [address] Care Team Providers Care Racking Technician Name Role Phone Nathalie Hsu MD Primary Care Provider [phone]- [phone] Shannan Barrow RN Unavailable [phone] Lisbeth Johnson Unavailable Reason for Visit * Reason Onset Date Comments Med Refill 07/01/2023 Encounter Details Date Type Department Care Team (Late st Contact Info) Description 07/01/[address] [facility] MEDICINE 230 [place], [place] [phone] Nathalie Hsu MD 230 [place], [place] [phone] Med Refill Social History Tobacco Use Types [...] the past 12 months, has t he [employer], gas, oil or water [employer] threatened to shut off services in your [...] 9:11 AM EDT Medication was sent to [facility] on 03/03/23 90 day supply with 1 refill. * Telephone Encounter - Amie Ramsey - 07/01/2023 9:06 AM EDT TC from pt requesting medication refill. Medications needing refill : pantoprazole (ProtoNix) 40 MG EC tablet To be sent to: [facility] - [place], [place] - [address] [place] [address] 230 [facility] [phone] documented in this encounter Plan of Treatment Upcoming Encounters Date Type Department Care Team (Late st Contact Info) Description 08/11/2024 1:15 PM EDT Office Visit [facility] MEDICINE [address] [place] [address] Renny Holloway MD [address] [place] [address] 09/19/2024 10:00 AM EDT Office Visit [facility] ADULT DENTAL [address] [place] [address] Cydney Panchito, DDS 230 [place] [address] 11/09/2024 1:00 PM EDT Office Visit [facility] OPTOMETRY [address] [place] [address] Seth, Zabrina, OD 230 [place] [address] 01/08/2025 10:00 AM EDT Office Visit [facility] ADULT DENTAL [address] [place] [address] Ulises, Chiquita [address] [place] [address] documented as of this encounter Visit Diagnoses Not on filedocumented in this encounter Additional Health Concerns Assessment Noted Time PHQ-9 Depression Total Score: 0 06/09/19 24 9:13 AM EST documented as of this encounter Care Teams Racking Technician Relationship Specialty Start Date End Date Nathalie Hsu MD [address] [place] [address] PCP - General Family Medicine 09/27/13 Shannan Barrow, RN [address] [place] [address] Registered Nurse 02/29/24 Lisbeth Johnson [address] [place] [address] Drive 3rd [place] [address] Gastroenterology 03/15/24 Tonya Poole Tape Fastener Machine OperatorTeacher Public Health 01/19/24 Raman ([facility]) Registered Nurse 02/29/24 Marcos Verdin MD [place] [facility] [address] [place] [address] Cardiology 03/10/24 Omid Vincent Psychiatry 03/15/24 documented as of this encounter
--- OUTSIDE RECORDS SUMMARY | 2024-08-04 13:54 | XMS_ITS | Encounter Summary ---
Author Organization [employer] [facility] Address [address] 7t [place] [address] Care Team Providers Care Switchman Supervisor Name Role Phone Nathalie Hsu MD Primary Care Provider [phone]- [phone] Shannan Barrow RN Unavailable [phone] Lisbeth Johnson Unavailable Encounter Details Date Type Department Care Team ([facility] Contact Info) Description 05/12/2022 Abstract [facility] MEDICINE [address] [place] [address] Nathalie Hsu MD [address] [place] [address] [phone] Social History Tobacco Use Types Packs/Day Years [...] Department Care Team (Late Contact Info) Description 08/11/2024 1:15 PM EDT Office Visit [facility] MEDICINE [address] [place] [address] Renny Holloway MD 230 [place] [address] 09/19/2024 10:00 AM EDT Office Visit [facility] ADULT DENTAL [address] [place] [address] Panchito Lamas, DDS 230 [place] [address] 11/09/2024 1:00 PM EDT Office Visit [facility] OPTOMETRY [address] [place] [address] Zabrina Ann, OD 230 [place] [address] 01/08/2025 10:00 AM EDT Office Visit [facility] ADULT DENTAL [address] [place] [address] Ulises Chiquita 230 [place] [address] documented as of this encounter Procedures Procedure [...] documented as of this encounter Care Teams Switchman Supervisor Relationship Specialty Start Date End Date Nathalie Hsu MD [address] [place] [address] PCP - General Family Medicine 09/27/13 Shannan Barrow, KHAI [address] [place] [address] Registered Nurse 02/29/24 Lisbeth Johnson [address] 3rd [place] [address] Gastroenterology 03/15/24 Tonya Poole Top Tile DecoratorBag Machine Helper 01/19/24 Raman ([facility]) Registered Nurse 02/29/24 Marcos Verdin MD [place] and [facility] [address] [place] [address] Cardiology 03/10/24 Omid Vincent Psychiatry 03/15/24 documented as of this encounter
--- OUTSIDE RECORDS SUMMARY | 2024-08-04 13:54 | XMS_ITS | Encounter Summary ---
Author Organization [email or web address] [facility] Address [address] [facility] [facility] [address] 7t [place] [address] Care Team Providers Care Packager And Strapper Name Role Phone Nathalie Hsu MD Primary Care Provider [phone]- [phone] Shannan Barrow RN Unavailable [phone] Lisbeth Johnson Unavailable Encounter Details Date Type Department Care Team (Late st Contact Info) Description 08/11/2023 Telephone [facility] MEDICINE 230 [place], [place] [phone] Nathalie Hsu MD 230 [place], [place] [phone] Social History Tobacco Use Types Packs/Day Years [...] Description 08/11/2024 1:15 PM EDT Office Visit [facility] MEDICINE 230 [place] [address] Renny Holloway MD [address] [place] [address] 09/19/2024 10:00 AM EDT Office Visit [facility] ADULT DENTAL 230 [place] [address] Panchito Lamas DDS 230 [place] [address] 11/09/2024 1:00 PM EDT Office Visit [facility] OPTOMETRY [address] [place] [address] Zabrina Ann, OD 230 [place] [address] 01/08/2025 10:00 AM EDT Office Visit [facility] ADULT DENTAL 230 [place] [address] Chiquita Montgomery 230 [place] [address] documented as of this encounter Visit Diagnoses Not on filedocumented in this encounter Additional Health Concerns Assessment Noted Time PHQ-9 Depression Total Score: 0 06/09/19 24 9:13 AM EST documented as of this encounter Care Teams Packager And Strapper Relationship Specialty Start Date End Date Nathalie Hsu MD [address] [place] [address] PCP - General Family Medicine 09/27/13 Shannan Barrow, RN [address] [place] [address] Registered Nurse 02/29/24 Lisbeth Johnson [address] [place] [address] 3rd [place] [address] Gastroenterology 03/15/24 Tonya Poole Newscast DirectorSole Ruffer 01/19/24 Raman ([facility]) Registered Nurse 02/29/24 Marcos Verdin MD [place] [facility] [address] [place] [address] Cardiology 03/10/24 Omid Vincent Psychiatry 03/15/24 documented as of this encounter
--- OUTSIDE RECORDS SUMMARY | 2024-08-04 13:54 | XMS_ITS | Encounter Summary ---
Author Organization [employer] Address [address] [facility] [address] 7t [place] [address] Care Team Providers Care Turkish Line Attendant Name Role Phone Nathalie Hsu MD Primary Care Provider [phone]- [phone] Shannan Barrow RN Unavailable [phone] Lisbeth Johnson Unavailable Reason for Visit * Reason Onset Date Comments Coagulation Disorder 05/12/2023 Encounter Details Date Type Department Care Team (Late st Contact Info) Description 05/12/2023 Telephone [facility] MEDICINE 230 [place], [place] [phone] Nathalie Hsu MD 230 [place], [place] [phone] Coagulation Disorder Social History Tobacco Use Types [...] to report INR. Please contact raman at [phone] documented in this encounter Plan of Treatment Upcoming Encounters Date Type Department Care Team (Late st Contact Info) Description 08/11/2024 1:15 PM EDT Office Visit [facility] MEDICINE [address] [place] [address] Renny Holloway MD [address] [place] [address] 09/19/2024 10:00 AM EDT Office Visit [facility] ADULT DENTAL [address] [place] [address] Panchito Lamas DDS [address] [place] [address] 11/09/2024 1:00 PM EDT Office Visit [facility] OPTOMETRY [address] [place] [address] Zabrina Ann, GEETA 230 [place] [address] 01/08/2025 10:00 AM EDT [facility] Visit [facility]ULT [facility] 230 [place] [address] Chiquita Montgomery 230 [place], [place] [phone] documented as of this encounter Visit Diagnoses Not on filedocumented in this encounter Additional Health Concerns Assessment Noted Time PHQ-9 Depression Total Score: 6 05/08/19 23 10:33 AM EST documented as of this encounter Care Teams Turkish Line Attendant Relationship Specialty Start Date End Date Nathalie Hsu MD 230 [place], [place] [phone] PCP - General Family Medicine 09/27/13 Shannan Barrow, KHAI [address] [place] [address] [phone] Registered Nurse 02/29/24 Lisbeth Johnson [address] [place] [address] Drive 3rd [place] [address] Gastroenterology 03/15/24 Tonya Poole Coffee MakerCouture Dressmaker 01/19/24 Raman ([facility]) Registered Nurse 02/29/24 Marcos Verdin MD [place] [facility] [address] [place] [address] Cardiology 03/10/24 Oimd Vincent Psychiatry 03/15/24 documented as of this encounter
--- OUTSIDE RECORDS SUMMARY | 2024-08-04 13:54 | XMS_ITS | Encounter Summary ---
Author Organization [employer] Address [address] 7t [place] [address] Care Team Providers Care Pollution Control Engineer Name Role Phone Nathalie Hsu MD Primary Care Provider [phone]- [phone] Shannan Barrow RN Unavailable [phone] Lisbeth Johnson Unavailable Reason for Visit * Reason Onset Date Comments INR report 03/31/2023 Encounter Details Date Type Department Care Team (Late st Contact Info) Description 03/31/2023 Telephone [facility] MEDICINE 230 [place], [place] [phone] Nathalie Hsu MD 230 [place], [place] [phone] INR report Social History Tobacco Use Types [...] PM EST Tc from Raman VALE with [employer] requesting a call from a nurse to report an INR results. Please contact Raman @ [phone] documented in this encounter Plan of Treatment Upcoming Encounters Date Type Department Care Team (Late st Contact Info) Description 08/11/2024 1:15 PM EDT Office Visit [facility] MEDICINE 230 [place] [address] Renny Holloway MD 230 [place] [address] 09/19/2024 10:00 AM EDT Office Visit [facility] ADULT DENTAL 230 [place] [address] Panchito Lamas DDS 230 [place] [address] 11/09/2024 1:00 PM EDT Office Visit [facility] OPTOMETRY [address] [place] [address] Zabrina Ann, OD 230 [place] [address] 01/08/2025 10:00 AM EDT Office Visit [facility] ADULT DENTAL 230 [place] [address] Ulises, Chiquita 230 [place], [place] [phone] documented as of this encounter Visit Diagnoses Not on filedocumented in this encounter Additional Health Concerns Assessment Noted Time PHQ-9 Depression Total Score: 6 05/08/19 23 10:33 AM EST documented as of this encounter Care Teams Pollution Control Engineer Relationship Specialty Start Date End Date Nathalie Hsu MD 230 [place] [address] PCP - General Family Medicine 09/27/13 Shannan Barrow, KHAI [address] [place] [address] [id number] Registered Nurse 02/29/24 Lisbeth Johnson [address] [place] [address] 3rd [place] [address] Gastroenterology 03/15/24 Tonya Poole Scoop DriverRotary Drill Operator 01/19/24 Raman ([facility] S) Registered Nurse 02/29/24 Marcos Verdin MD [place] [facility] [address] [place] [address] Cardiology 03/10/24 Omid Vincent Psychiatry 03/15/24 documented as of this encounter
--- OUTSIDE RECORDS SUMMARY | 2024-08-04 13:54 | XMS_ITS | Encounter Summary ---
Author Organization [employer] Address [address] 7t [place] [address] Care Team Providers Care Combat Engineer Name Role Phone Nathalie Hsu MD Primary Care Provider [phone]- [phone] Shannan Barrow RN Unavailable [phone] Lisbeth Johnson Unavailable Encounter Details Date Type Department Care Team (Late st Contact Info) Description 05/12/2023 Orders Only [facility] MEDICINE 230 [place], [place] [phone] Nathalie Hsu MD 230 [place], [place] [phone] Social History Tobacco Use Types Packs/Day Years [...] Description 08/11/2024 1:15 PM EDT Office Visit [facility] MEDICINE [address] [place] [address] Renny Holloway MD 230 [place] [address] 09/19/2024 10:00 AM EDT Office Visit [facility] ADULT DENTAL [address] [place] [address] Panchito Lamas, DDS 230 [place] [address] 11/09/2024 1:00 PM EDT Office Visit [facility] OPTOMETRY [address] [place] [address] Zabrina Ann, OD 230 [place] [address] 01/08/2025 10:00 AM EDT Office Visit [facility] ADULT DENTAL 230 [place] [address] Ulises Chiquita 230 [place] [address] documented as of this encounter Visit Diagnoses Not on filedocumented in this encounter Additional Health Concerns Assessment Noted Time PHQ-9 Depression Total Score: 6 05/08/19 23 10:33 AM EST documented as of this encounter Care Teams Combat Engineer Relationship Specialty Start Date End Date Nathalie Hsu MD 230 [place] [address] PCP - General Family Medicine 09/27/13 Shannan Barrow, RN 230 [place] [address] Registered Nurse 02/29/24 Lisbeth Johnson [address] [place] [address] 3rd [place] [address] Gastroenterology 03/15/24 Tonya Poole Steam FlattenerShift Foreman 01/19/24 Raman ([facility]) Registered Nurse 02/29/24 Marcos Verdin MD [place] [facility] [address] [place] [address] Cardiology 03/10/24 Omid Vincent Psychiatry 03/15/24 documented as of this encounter
--- OUTSIDE RECORDS SUMMARY | 2024-08-04 13:54 | XMS_ITS | Encounter Summary ---
Author Organization [employer] Address [address] 7t [place] [address] Care Team Providers Care Stoper Name Role Phone Nathalie Hsu MD Primary Care Provider [phone]- [phone] Shannan Barrow RN Unavailable [phone] Lisbeth Johnson Unavailable Reason for Visit * Reason Comments Med Refill Encounter Details Date Type Department Care Team (Late st Contact Info) Description 02/12/2023 Refill [facility] MEDICINE 230 [place], [place] [phone] Nathalie Hsu MD 230 [place], [place] [phone] Pain Social History Tobacco Use Types Packs/Day [...] Description 08/11/2024 1:15 PM EDT Office Visit [facility] MEDICINE 230 [place] [address] Renny Holloway MD 230 [place] [address] 09/19/2024 10:00 AM EDT Office Visit [facility] ADULT DENTAL 230 [place] [address] Panchito Lamas, DDS 230 [place] [address] 11/09/2024 1:00 PM EDT Office Visit [facility] OPTOMETRY 267 [place] [address] Seth, Zabrina, OD 230 [place] [address] 01/08/2025 10:00 AM EDT Office Visit [facility] ADULT DENTAL 230 [place] [address] Ulises, Chiquita 230 [place] [address] documented as of this encounter Visit Diagnoses Diagnosis Pain Generalized pain documented in this encounter Additional Health Concerns Assessment Noted Time PHQ-9 Depression Total Score: 6 05/08/19 23 10:33 AM EST documented as of this encounter Care Teams Stoper Relationship Specialty Start Date End Date Nathalie Hsu MD 230 [place] [address] PCP - General Family Medicine 09/27/13 Shannan Barrow, RN 230 [place] [address] Registered Nurse 02/29/[address] 3rd [place] [address] Gastroenterology 03/15/24 Tonya Poole Stone Derrickman And RiggerMining Technician 01/19/24 Raman ([facility]) Registered Nurse 02/29/24 Marcos Verdin MD [place] [facility] [address] [place] [address] Cardiology 03/10/24 Omid Vincent Psychiatry 03/15/24 documented as of this encounter
--- OUTSIDE RECORDS SUMMARY | 2024-08-04 13:54 | XMS_ITS | Encounter Summary ---
Author Organization [employer] Address [address] 7t [place] [address] Care Team Providers Care Chief Drafter Name Role Phone Nathalie Hsu MD Primary Care Provider [phone]- [phone] Shannan Barrow RN Unavailable [phone] Lisbeth Johnson Unavailable Reason for Visit * Reason Comments Med Refill Encounter Details Date Type Department Care Team (Late st Contact Info) Description 02/28/2023 Refill [facility] MEDICINE 230 [place], [place] [phone] Nathalie Hsu MD 230 [place], [place] [phone] Social History Tobacco Use Types Packs/Day Years [...] Description 08/11/2024 1:15 PM EDT Office Visit [facility] MEDICINE 230 [place] [address] Renny Holloway MD 230 [place] [address] 09/19/2024 10:00 AM EDT Office Visit [facility] ADULT DENTAL [address] [place] [address] Panchito Lamas, DDS 230 [place] [address] 11/09/2024 1:00 PM EDT Office Visit [facility] OPTOMETRY 267 [place] [address] Seth, Zabrina, OD 230 [place] [address] 01/08/2025 10:00 AM EDT Office Visit [facility] ADULT DENTAL 230 [place] [address] Ulises, Chiquita 230 [place] [address] documented as of this encounter Visit Diagnoses Not on filedocumented in this encounter Additional Health Concerns Assessment Noted Time PHQ-9 Depression Total Score: 6 05/08/19 23 10:33 AM EST documented as of this encounter Care Teams Chief Drafter Relationship Specialty Start Date End Date Nathalie Hsu MD 230 [place] [address] PCP - General Family Medicine 09/27/13 Shannan Barrow, RN 230 [place] [address] Registered Nurse 02/29/[address] 3rd [place] [address] Gastroenterology 03/15/24 Tonya Poole Charter CoordinatorProgram Officer 01/19/24 Raman ([facility]) Registered Nurse 02/29/24 Marcos Verdin MD [place] [facility] [address] [place] [address] Cardiology 03/10/24 Omid Vincent Psychiatry 03/15/24 documented as of this encounter
--- OUTSIDE RECORDS SUMMARY | 2024-08-04 13:54 | XMS_ITS | Encounter Summary ---
Author Organization [employer] Address [address] 7t [place] [address] Care Team Providers Care Funeral Director/Embalmer Name Role Phone Nathalie Hsu MD Primary Care Provider [phone]- [phone] Shannan Barrow RN Unavailable [phone] Lisbeth Johnson Unavailable Reason for Visit * Reason Onset Date Comments Hospital Follow-up 03/07/2024 Medication Question 03/07/2024 Encounter Details Date Type Department Care Team (Late st Contact Info) Description 03/07/2024 Telephone [facility] MEDICINE 230 [place], [place] [phone] Nathalie Hsu MD 230 [place], [place] [phone] Hospital Follow-up; Medication Question Social History Tobacco [...] stating wrong number and he doesn't speak french (was not the pt). Telephone call placed [...] - 03/07/2024 2:00 PM EST Tc from [facility] with critical access hospital Cost Specialist requesting a HDF appt. Pt is concerned about medication melatonin 5 MG tablet he still has trouble sleeping and doesn't want to stop taking. Hospital: [facility] Date of admission: 02/11 Discharge date: 03/01 Diagnosed: Liver Issues Contact pt to schedule at [phone] *Send message to [place] Clinical Care Coordinators documented in this encounter Plan of Treatment Upcoming Encounters Date Type Department Care Team (Late st Contact Info) Description 08/11/2024 1:15 PM EDT Office Visit [facility] MEDICINE 230 [place] [address] Renny Holloway MD 230 [place] [address] 09/19/2024 10:00 AM EDT Office Visit [facility] ADULT DENTAL 230 [place] [address] Panchito Lamas DDS 230 [place] [address] 11/09/2024 1:00 PM EDT Office Visit [facility] OPTOMETRY [address] [place] [address] Zabrina Ann, GEETA 230 [place] [address] 01/08/2025 10:00 AM EDT Office Visit [facility] ADULT DENTAL 230 [place] [address] Chiquita Montgomery 230 [place] [address] documented as of this encounter Visit Diagnoses Not on filedocumented in this encounter Additional Health Concerns Assessment Noted Time PHQ-9 Depression Total Score: 0 06/09/19 24 9:13 AM EST documented as of this encounter Care Teams Funeral Director/Embalmer Relationship Specialty Start Date End Date Nathalie Hsu MD 230 [place] [address] PCP - General Family Medicine 09/27/13 Shannan Barrow, RN 230 [place] [address] Registered Nurse 02/29/24 Lisbeth Johnson [address] [place] [address] Drive 3rd [place] [address] Gastroenterology 03/15/24 Tonya Poole Laboratory Animal CaretakerHead Of Conservation 01/19/24 Raman ([facility]) Registered Nurse 02/29/24 Marcos Verdin MD [place] [facility] [address] [place] [address] Cardiology 03/10/24 Omid Vincent Psychiatry 03/15/24 documented as of this encounter
--- OUTSIDE RECORDS SUMMARY | 2024-08-04 13:54 | XMS_ITS | Encounter Summary ---
Author Organization [employer] Address [address] 7t [place] [address] Care Team Providers Care Drums Teacher Name Role Phone Nathalie Hsu MD Primary Care Provider [phone]- [phone] Shannan Barrow RN Unavailable [phone] Lisbeth Johnson Unavailable Reason for Visit * Reason Comments Med Refill Encounter Details Date Type Department Care Team (Late st Contact Info) Description 11/01/2023 Refill [facility] MED & PEDS [address] [place], [place] [phone] Nathalie Hsu MD 230 [place], [place] [phone] Mild intermittent asthma, unspecified whether complicated Social [...] the past 12 months, has t he [employer] gas, 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 threatened to [...] Office Visit [facility] MEDICINE 230 [place] [address] Renny Holloway MD 230 [place] [address] 09/19/2024 10:00 AM EDT Office Visit [facility] ADULT DENTAL 230 [place] [address] Panchito Lamas DDS 230 [place] [address] 11/09/2024 1:00 PM EDT Office Visit [facility] OPTOMETRY [address] [place] [address] Zabrina Ann, GEETA 230 [place] [address] 01/08/2025 10:00 AM EDT Office Visit [facility] ADULT DENTAL 230 [place] [address] Chiquita Montgomery 230 [place] [address] documented as of this encounter Visit Diagnoses Diagnosis Mild intermittent asthma, unspecified whether complicated documented in this encounter Additional Health Concerns Assessment Noted Time PHQ-9 Depression Total Score: 0 06/09/19 9:13 AM EST documented as of this encounter Care Teams Drums Teacher Relationship Specialty Start Date End Date Nathalie Hsu MD 230 [place] [address] PCP - General Family Medicine 09/27/13 Shannan Barrow, KHAI 230 [place] [address] Registered Nurse 02/29/24 Lisbeth Johnson [address] [place] [address] 3rd [place] [address] Gastroenterology 03/15/24 Tonya Poole Chief Cloth Finishing Range OperatorReactor Operator 01/19/24 Raman ([facility]) Registered Nurse 02/29/24 Marcos Verdin MD [place] [facility] [address] [place] [address] Cardiology 03/10/24 Omid Vincent Psychiatry 03/15/24 documented as of this encounter
--- OUTSIDE RECORDS SUMMARY | 2024-08-04 13:54 | XMS_ITS | Encounter Summary ---
Author Organization [employer] Address [address] [facility] 7t [place] [address] Care Team Providers Care Shoe Stitcher Odd Name Role Phone Nathalie Hsu MD Primary Care Provider + [phone] Shannan Barrow RN Unavailable [phone] Lisbeth Johnson Unavailable Encounter Details Date Type Department Care Team (Late st Contact Info) Description 11/27/2022 Orders Only [facility] MEDICINE [address] [place] [address] Jose Dockery 230 [place] [address] Social History Tobacco Use Types Packs/Day Years [...] 08/11/2024 1:15 PM EDT Office Visit [facility] MEDICINE [address] [place] [address] [phone] Renny Holloway MD [address] [place] [address] [phone] 09/19/2024 10:00 AM EDT Office Visit [facility] ADULT DENTAL 230 [place] [address] Panchito Lamas DDS 230 [place] [address] 11/09/2024 1:00 PM EDT Office Visit [facility] OPTOMETRY [address] [place] [address] Seth, Zabrina, OD 230 [place] [address] 01/08/2025 10:00 AM EDT Office Visit [facility] ADULT DENTAL 230 [place] [address] Adalberto Montgomeryaris 230 [place] [address] documented as of this encounter Visit Diagnoses Not on filedocumented in this encounter Additional Health Concerns Assessment Noted Time PHQ-9 Depression Total Score: 6 05/08/19 23 10:33 AM EST documented as of this encounter Care Teams Shoe Stitcher Odd Relationship Specialty Start Date End Date Nathalie Hsu MD 230 [place] [address] PCP - General Family Medicine 09/27/13 Shannan Barrow, RN 230 [place] [address] Registered Nurse 02/29/24 Lisbeth Johnson [address] [place] [address] Drive 3rd [place] [address] Gastroenterology 03/15/24 Tonya Poole Tray Line WorkerBeach Patrol Lieutenant 01/19/24 Raman ([facility]) Registered Nurse 02/29/24 Marcos Verdin MD [place] [facility] [address] [place] [address] Cardiology 03/10/24 Omid Vincent Psychiatry 03/15/24 documented as of this encounter
--- OUTSIDE RECORDS SUMMARY | 2024-08-04 13:54 | XMS_ITS | Encounter Summary ---
Author Organization [employer] Address [address] 7t [place] [address] Care Team Providers Care Baseball Player Name Role Phone Nathalie Hsu MD Primary Care Provider [phone]- [phone] Shannan Barrow RN Unavailable [phone] Lisbeth Johnson Unavailable Reason for Visit * Reason Onset Date Comments Med Refill 03/09/2024 Encounter Details Date Type Department Care Team (Late st Contact Info) Description 03/09/2024 Telephone [facility] MEDICINE 230 [place], [place] [phone] Nathalie Hsu MD 230 [place], [place] [phone] Med Refill Social History Tobacco Use Types [...] 9:13 AM EST Medication was sent to [facility] on 12/13/23 #60 with 3 refills. * Telephone Encounter - Alf Avilez - 03/09/2024 9:07 AM EST TC from pt requesting medication refill. Medications needing refill : melatonin 5 MG tablet To be sent to: [facility] documented in this encounter Plan of Treatment Upcoming Encounters Date Type Department Care Team (Late st Contact Info) Description 08/11/2024 1:15 PM EDT Office Visit [facility] MEDICINE 230 [place] [address] Renny Holloway MD 230 [place] [address] 09/19/2024 10:00 AM EDT Office Visit [facility] ADULT DENTAL 230 [place] [address] Panchito Lamas, DDS 230 [place] [address] 11/09/2024 1:00 PM EDT Office Visit [facility] OPTOMETRY [address] [place] [address] SethAshutosh funesn, OD 230 [place] [address] 01/08/2025 10:00 AM EDT Office Visit [facility] ADULT DENTAL 230 [place] [address] Ulises, Chiquita 230 [place] [address] documented as of this encounter Visit Diagnoses Not on filedocumented in this encounter Additional Health Concerns Assessment Noted Time PHQ-9 Depression Total Score: 0 06/09/19 24 9:13 AM EST documented as of this encounter Care Teams Baseball Player Relationship Specialty Start Date End Date Nathalie Hsu MD 230 [place] [address] PCP - General Family Medicine 09/27/13 Shannan Barrow, RN [address] [place] [address] Registered Nurse 02/29/[address] 3rd [place] [address] Gastroenterology 03/15/24 Tonya Poole Interior Design ConsultantAdjunct Trainer 01/19/24 Raman (A [facility]) Registered Nurse 02/29/24 Marcos Verdin MD [place] [facility] [address] [place] [address] Cardiology 03/10/24 Omid Vincent Psychiatry 03/15/24 documented as of this encounter
--- OUTSIDE RECORDS SUMMARY | 2024-08-04 13:54 | XMS_ITS | Encounter Summary ---
Author Organization [employer] Address [address] [facility] 7t [place] [address] Care Team Providers Care Rodeo Performer Name Role Phone Nathalie Hsu MD Primary Care Provider + [phone] Shannan Barrow RN Unavailable [phone] Lisbeth Johnson Unavailable Encounter Details Date Type Department Care Team (Late st Contact Info) Description 04/01/2022 Orders Only [facility] MEDICINE [address] [place] [address] Anabell Weston, KHAI Social History Tobacco Use [...] Description 08/11/2024 1:15 PM EDT Office Visit [facility] MEDICINE [address] [place] [address] Renny Holloway MD [address] [place] [address] [phone] 09/19/2024 10:00 AM EDT Office Visit [facility] ADULT DENTAL [address] [place] [address] Panchito Lamas DDS 230 [place], [place] [phone] 11/09/2024 1:00 PM EDT Office Visit [facility] OPTOMETRY [address] [place] [address] Zabrina Ann, OD 230 [place] [address] 01/08/2025 10:00 AM EDT Office Visit [facility] ADULT DENTAL 230 [place] [address] Ulises, Chiquita 230 [place] [address] documented as of this encounter Visit Diagnoses Not on filedocumented in this encounter Care Teams Rodeo Performer Relationship Specialty Start Date End Date Nathalie Hsu MD 230 [place] [address] PCP - General Family Medicine 09/27/13 Shannan Barrow, KHAI [address] [place] [address] Registered Nurse 02/29/24 Lisbeth Johnson [address] [place] [address] Drive 3rd [place] [address] Gastroenterology 03/15/24 Tonya Poole Audiovisual Production SpecialistDurability Technician 01/19/24 Raman ([facility]) Registered Nurse 02/29/24 Marcos Verdin MD [place] [facility] [address] [place] [address] Cardiology 03/10/24 Omid Vincent Psychiatry 03/15/24 documented as of this encounter
--- OUTSIDE RECORDS SUMMARY | 2024-08-04 13:54 | XMS_ITS | Encounter Summary ---
Author Organization [employer] Address [address] [facility] [address] 7t [place] [address] Care Team Providers Care Transfer Professor Name Role Phone Nathalie Hsu MD Primary Care Provider [phone]- [phone] Shannan Barrow RN Unavailable [phone] Lisbeth Johnson Unavailable Reason for Visit * Reason Onset Date Comments Results 01/12/2023 INR Encounter Details Date Type Department Care Team (Late st Contact Info) Description 01/12/2023 Telephone [facility] MED[facility]INE 230 [place] [address] Nathalie Hsu MD 230 [place], [place] [phone] Results (INR) Social History Tobacco Use Types [...] 12:36 PM EDT Tc from [facility] [employer] reporting INR results. Please call [phone] documented in this encounter Plan of Treatment Upcoming Encounters Date Type Department Care Team (Late st Contact Info) Description 08/11/2024 1:15 PM EDT Office Visit [facility] MEDICINE 230 [place] [address] Renny Holloway MD 230 [place] [address] 09/19/2024 10:00 AM EDT Office Visit [facility] ADULT DENTAL 230 [place] [address] Panchito Lmaas DDS 230 [place] [address] 11/09/2024 1:00 PM EDT Office Visit [facility] OPTOMETRY [address] [place] [address] Zabrina Ann, OD 230 [place] [address] 01/08/2025 10:00 AM EDT Office Visit [facility] ADULT DENTAL 230 [place] [address] Chiquita Montgomery 230 [place] [address] documented as of this encounter Visit Diagnoses Not on filedocumented in this encounter Additional Health Concerns Assessment Noted Time PHQ-9 Depression Total Score: 6 05/08/19 23 10:33 AM EST documented as of this encounter Care Teams Transfer Professor Relationship Specialty Start Date End Date Nathalie Hsu MD 230 [place] [address] PCP - General Family Medicine 09/27/13 Shannan Barrow, KHAI 230 [place] [address] Registered Nurse 02/29/24 Lisbeth Johnson [address] [place] [address] 3rd [place] [address] Gastroenterology 03/15/24 Tonya Poole Knit Goods Press HandPourer 01/19/24 Raman (A S) Registered Nurse 02/29/24 Marcos Verdin MD [place] [facility] [address] [place] [address] Cardiology 03/10/24 Omid Vincent Psychiatry 03/15/24 documented as of this encounter
--- OUTSIDE RECORDS SUMMARY | 2024-08-04 13:54 | XMS_ITS | Clinical Summary ---
Author Organization [employer] Address [address] [facility] [address] [place] [address] Care Team Providers Care Range Operator Name Role Phone Nathalie Hus MD Primary Care Provider [phone] Shannan Barrow RN Unavailable [phone] Lisbeth Johnson Unavailable Allergies Active Allergy [...] SLEEP 60 tablet 3 07/21/19 25 Active melatonin 5 MG [...] 12/10/23 and INR was 13, transferred to [facility] Closed fracture of transvers e [...] with patient. Alcoholic liver disease 10/20/2023 Overview (07/28/2024): Lab Results Component Value Date AST 31 07/14/2024 AST 35 04/14/2024 AST 21 08/10/2022 ALT 37 07/14/2024 ALT 28 04/14/2024 ALT 20 08/10/2022 ALT 22 08/22/2020 TOTALBILIRUB 0.6 07/14/2024 TOTALBILIRUB 1.6 (H) 04/14/2024 INR 3.60 (H) 07/25/2024 INR 1.9 (H) 07/14/2024 PLT 246 07/14/2024 PLT 258 07/14/2024 CREATININE 1.01 07/14/2024 CREATININE 1.21 10/21/2021 CREATININE 1.21 10/21/2021 NA 139 07/14/2024 MELD 3.0: 12 at 07/14/2024 1:49 PM MELD-Na: 14 at 07/14/2024 1:49 PM Calculated from: Serum Creatinine: 1.01 mg/dL at 07/14/2024 1:49 PM Serum Sodium: 139 mmol/L (Using max of 137 mmol/L) at 07/14/2024 1:49 PM Total Bilirubin: 0.6 mg/dL (Using min of 1 mg/dL) at 07/14/2024 1:49 PM Serum Albumin: 4 g/dL (Using max of 3.5 g/dL) at 07/14/2024 1:49 PM INR(ratio): 1.9 at 07/14/2024 1:49 PM Age at listing (hypothetical): 64 years Sex: Male at 07/14/2024 1:49 PM -Past Meld score 24 calculated 03/2024, (estimated 3 month mortality 19.6%) -Imaging: CT abd and pelv 09/15/23 showed liver is normal in size, shape, and attenuation. No focal hepatic lesion or biliary ductal dilatation is present. The gallbladder is unremarkable with no evidence of radiopaque gallstones, gallbladder wall thickening, or obvious pericholecystic inflammatory changes. - Compensated: yes -EGD: scheduled to be done in spring -Dieretics: lasix 20mg daily, spironolactone 25mg daily -MELD score: -Fib 4: 5.75 calculated 03/13/24 -Hepatocellular carcinoma screening: CT 09/15/23 -Varices screening: after cardiology eval -Hx encephalopathy: yes -Hx SBP: No -Rifaximin 550 BID started 04/2024 -Low sodium diet discussed. Avoid hepatotoxic agents. -Followed by: Quality Assurance Clerk, Dr. Johnson: Note from 07/28/24 reviewed -Again strongly reviewed strict abstinence from etOH which hte pt has maintained so far. However, he unfortunately continues to smoke. Strongly counseled re that as well and will be referred to [facility]. -In terms of sarcopenia frailty, encouraged daily exercise even if starting with just 10 mins a day. - Will also review indication for bidirectional endoscopy at that time - Extensively couseled on zero etOH and tobacco use -US/US abdomen complete 04/19/24 IMPRESSION: Mild diffusely increased hepatic parenchymal echogenicity, suggestive of mild steatosis. No focal suspicious lesion. No biliary abnormality. Mild adenomyomatosis of the gallbladder. Gallbladder otherwise normal. 0.8 cm simple cyst right kidney. - CBC, CMP, INR today and again in 2 weeks - He was advised that will receive a call if actionable findings jim if worsening anemia req transfusion - Rifaximin 550 BID - Add protein shakes 1-2 times a day. Avoid prolonged fasting, add a night time snack such as albanian yogurt, PB etc - Fuel Verification Technician referral - CLose follow up in 2 weeks -GI note 04/28/24 - Clarified need for CCC and Fuel Verification Technician referrals - Due for EGD/colo - needs repeat echo ordered to follow up on cardiomyopathy prev EF 20-25% - Will also confirm his OP justice professor for clearance - Pt reminded to bring home meds list - Repeat MELD labs in [address] Johnson 07/28/24 MELD 14 on most recent labs. Discussed that can be cautiously optimistic re some recuperation of liver function however if he relapses on etOH a repeat ACLF episode is inevitable. He was counseled on strict abstinence from etOH. Recently established care with Dr Holloway at [facility] for substance use disorder recovery and support. - Clarified need for CCC and Fuel Verification Technician referrals - EGD/colo to be booked. He is aware he will need to review coumadin hold with his justice professor for this procedure - US abd ordered - Repeat MELD labs in 3 months - Follow up 3 months Assessment & Plan (03/13/2024 10:02 [...] by: New appointment with GI 03/15/24 at [facility] Assessment & Plan (01/19/2024 9:14 AM [...] due after 03/03/2024 -eye care facilitated by [facility] -dental home is [facility] -health care proxy on file 02/08/2015, filed into [employer] on 06/09/23 Assessment & Plan (03/10/2024 9:55 PM EST): -next comprehensive annual evaluation due after 03/03/2024 -eye care facilitated by [facility] -dental home is [facility] -[facility] care proxy on file 02/08/2015, filed into [employer] on 06/09/23 Assessment & Plan (01/19/2024 9:20 AM EDT): -next comprehensive annual evaluation due after 03/03/2024 -eye care facilitated by [facility] -dental home is [facility] -[facility] care proxy on file 02/08/2015, filed into [employer] on 06/09/23 Assessment & Plan (12/27/2023 11:02 AM EDT): -next comprehensive annual evaluation due after 03/03/2024 -eye care facilitated by [facility] -dental home is [facility] - [facility] care proxy on file 02/08/2015, filed into [employer] on 06/09/23 Assessment & Plan (10/22/2023 11:16 AM EDT): -next physical exam due after 03/03/2024 -eye care facilitated by [facility] -dental home is [facility] - [facility] care proxy on file 02/08/2015, filed into [employer] on 06/09/23 Assessment & Plan (03/03/2023 9:35 [...] entresto startd by cardiology 05/2022 -F/u with justice professor ANA Smith -furosemide 40 mg started during [...] entresto startd by cardiology 05/2022 -F/u with justice professor ANA Smith -furosemide 40 mg started during [...] entresto startd by cardiology 05/2022 -F/u with justice professor ANA Smith -Furosemide 40 mg started during [...] entresto startd by cardiology 05/2022 -F/u with justice professor ANA Smith -Furosemide 40 mg started during [...] entresto startd by cardiology 05/2022 -F/u with justice professor ANA Smith Assessment & Plan (06/03/2022 11:12 [...] entresto startd by cardiology 05/2022 -F/u with justice professor ANA Smith Assessment & Plan (05/07/2022 10:43 [...] daily, and amlodipine 2.5mg daily -F/u with justice professor ANA Smith -He is overdue for follow [...] (12/24/2022): -Hospitalized for subarachnoid hemorrhage 10/2021 at [facility] after fall in the setting of supratheraputic INR of 16 and heavy alcohol use. He was changed to lovenox but could not tolerate the injections. Back on coumadin with improved INRs. He is also on plavix. ER precautions discussed. Assessment & Plan (10/22/2023 11:16 AM EDT): -Hospitalized for subarachnoid hemorrhage 10/2021 at [facility] after fall in the setting of supratheraputic INR of 16 and heavy alcohol use. He was changed to lovenox but could not tolerate the injections. Back on coumadin with improved INRs. He is also on plavix. ER precautions discussed. Assessment & Plan (06/09/2023 9:36 AM EST): -Hospitalized for subarachnoid hemorrhage 10/2021 at [facility] after fall in the setting of supratheraputic INR of 16 and heavy alcohol use. He was changed to lovenox but could not tolerate the injections. Back on coumadin with improved INRs. He is also on plavix. ER precautions discussed. Assessment & Plan (08/11/2022 7:29 AM EDT): -Hospitalized for subarachnoid hemorrhage 10/2021 at [facility] after fall in the setting of supratheraputic INR of 16 and heavy alcohol use. He was changed to lovenox but could not tolerate the injections. Back on coumadin with improved INRs. He is also on plavix. ER precautions discussed. Assessment & Plan (06/03/2022 11:07 AM EST): -Hospitalized for subarachnoid hemorrhage 10/2021 at [facility] after fall in the setting of supratheraputic INR of 16 and heavy alcohol use. Now on Lovenox and clopidogrel. Assessment & Plan (05/07/2022 10:53 AM EST): Hospitalized for subarachnoid hemorrhage 10/2021 at [facility] after fall in the setting [...] daily drinking and rum - established with [facility] because insurance no longer accepted by [facility]. -Patient followed at [facility] with Dr. Cristine Deleon DO, seen 06/09/23 [...] daily drinking and rum - established with [facility] because insurance no longer accepted by [facility]. -Patient followed at [facility] with Dr. Cristine Deleon DO, seen 06/09/23 [...] daily drinking and rum - established with [facility] because insurance no longer accepted by [facility]. -Patient followed at [facility] with Dr. Cristine Deleon DO, seen 06/09/23 [...] daily drinking and rum - established with [facility] because insurance no longer accepted by [facility]. -Patient followed at [facility] with Dr. Cristine Deleon DO, seen 06/09/23 [...] daily drinking and rum - established with [facility] because insurance no longer accepted by [facility] -Patient followed at [facility] with Dr. Cristine Deleon DO, seen 06/09/23 [...] daily drinking and rum - established with [facility] because insurance no longer accepted by [facility]. Assessment & Plan (11/30/2022 8:51 PM EDT): hx of aortic stenosis s/p Aortic valve repair, hx of AF , cardiomyopathy with EF 25-30%, ,hx AAA repair, complete heart block s/p pacemaker,CAD s/P stent INR goal 2.5 to 3.5 -continue to f up with his justice professor-next apt w Dr Deleon is on 12/08/2022 - I called cards' office # [phone] and confirmed day and hour and gave [...] daily drinking and rum - Established with [facility] because insurance no longer accepted by [facility]. Assessment & Plan (06/03/2022 11:09 AM [...] ETOH with intracranial bleed. - established with [facility] because insurance no longer accepted by [facility]. Last seen 05/2022 recommending 4 week follow up Assessment & Plan (05/07/2022 10:46 AM EST): Hx [address] 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 No hx CABG. Pacemaker placed for AV radha block. -On Coumadin, managed by [facility]. - established with [facility] because insurance no longer accepted by [facility]. Presence of cardiac pacemaker 03/07/2014 Overview [...] Encouraged smoking cessation resources such as pharmacomtherapy, [facility] smoking cessation group, and [facility] pharmacy smoking cessation clinic -currently smoke [...] as pharmacomtherapy, [facility] smoking cessation group, and [facility] pharmacy smoking cessation clinic -currently smoke [...] as pharmacomtherapy, [facility] smoking cessation group, and [facility] pharmacy smoking cessation clinic -currently smoke [...] as pharmacomtherapy, [facility] smoking cessation group, and [facility] pharmacy smoking cessation clinic -currently smoke [...] 06/09/23 Alcohol Use Disorder Clinic [facility] Support and [facility] televist tolerating the medication. Admits to 3 [...] 06/09/23 Alcohol Use Disorder Clinic [facility] Support and [facility] televist tolerating the medication. Admits to 3 [...] 12/24/2022 10/22/2023 Elevated international normalized ratio (INR) 05/08/1903/03/2023 Assessment & Plan (05/08/2022 11:12 AM EST): [...] Encounters Date Type Department Care Team Description 08/03/2024 8:00 AM EDT Office Visit [facility] ADULT DENTAL [address] [place] [address] Panchito Lamas DDS Severe dental caries (Primary Dx) 08/02/2024 Telephone [facility] MEDIC[facility] [address] [place] [address] Shannan Barrow, RN Anticoagulation 08/02/[address] [address] Nathalie Hsu MD PT1 07/25/2024 Telephone [facility] PEDIATRICS [address] [place] [address] 13182 Nathalie Hsu MD critical lab 07/20/2024 Refill [facility] [address] [place] [address] Nathalie Hsu MD Primary insomnia 07/19/2024 Refill [facility] [address] [place] [address] Nathalie Hsu MD Alcoholic liver disease ([facility]/HCC); Primary insomnia 07/18/2024 Telephone [facility] [address] [place] [address] 540[address] Nathalie Hsu MD INR/Coumadin Dosing 07/14/2024 1:00 PM EDT Office Visit [facility] MED[facility] [address] [place] [phone] Renny Holloway MD Alcohol use disorder, severe, dependence (CMS/HCC) (Primary Dx); Tobacco dependence 07/14/2024 Telephone [facility] [address] [place] [phone] Shannan Barrow, RN Results 07/14/2024 Orders Only GENERIC EXTERNAL DATA DEPARTMENT Provider, Generic External Data 07/14/2024 Travel 07/11/2024 Telephone [facility] [address] [place] [address] 26673 Nathalie Hsu MD INR results 07/05/2024 Telephone [facility] [address] [place] [address] 23668 Nathalie Hsu MD Referral 07/05/2024 Refill [facility] [address] [place] [address] [phone] Hermelinda Hernandez ANP History of prosthetic heart valve 07/04/2024 Anticoagulation - Warfarin Visit [address] [address] Nathalie Hsu MD History of prosthetic heart valve 07/04/2024 Telephone [facility] [address] [place] [address] 55901 Nathalie Hsu MD critical lab 07/04/2024 Refill [facility] [address] [place] [phone] Panchito Lamas DDS Severe dental caries; Dental root caries; Advanced periodontitis; Excessive attrition of teeth, limited to enamel; Missing teeth, acquired; Dental calculus 07/04/2024 Refill [facility] [address] [place] [address] Nathalie Hsu MD Anemia, unspecified type 07/03/2024 Refill [facility] [address] [place] [address] 47323 Nathalie Hsu MD Alcoholic liver disease ([facility]/HCC); Anemia, unspecified type 06/28/2024 Refill [facility] [address] [place] [address] 32867 Nathalie Hsu MD Mild intermittent asthma without complication 06/27/2024 Telephone [facility] [address] [place] [address] 09791 Nathalie Hsu MD INR results 06/27/2024 Refill [facility] [address] [place] [address] 29846 Nathalie Hsu MD Pain; Mild intermittent asthma without complication 06/20/[address] [address] Nathalie Hsu MD critical lab 06/20/2024 Telephone [facility] [address] [place] [address] [place] medication 06/19/2024 Refill [facility] [address] [place] [address] Nathalie Hsu MD 06/16/2024 Population Health Risk Score [facility] Department [address] [place] [address] [phone] Provider, Population Health Generic 06/13/2024 Telephone [facility] [address] [place] [address] [phone] Nathalie Hsu MD INR/Coumadin Dosing 06/09/2024 1:15 PM EST Telemedicine [facility] [address] [place] [address] Renny Holloway MD Alcohol use disorder, severe, dependence (CMS/HCC) (Primary Dx) 06/09/2024 Travel 06/08/2024 9:30 AM EST Office Visit [facility] [address] [place] [address] Panchito Lamas DDS Severe dental caries (Primary Dx); Dental root caries; Advanced periodontitis; Excessive attrition of teeth, limited to enamel; Missing teeth, acquired; Dental calculus 06/06/2024 Telephone [facility] [address] [place] [address] Nathalie Hsu MD Results 06/02/2024 Refill [facility] [address] [place] [address] Nathalie Hsu MD 05/30/2024 Telephone [facility] [address] [place] [address] Nathalie Hsu MD CRITICAL RESULT CALL/INR 05/29/2024 Refill [facility] [address] [place] [address] Nathalie Hsu MD Alcoholic liver disease (CMS/HCC) 05/26/2024 Patient Outreach [facility] [address] [place] [phone] Nathalie Hsu MD Care Coordination ([facility] outreach for SDOH PT-1 and food needs-referral completed /) 05/26/2024 Telephone [facility] [address] [place] [address] Nathalie Hsu MD PT-1 05/23/2024 Telephone [facility] [address], [place] [phone] Nathalie Hsu MD CRITICAL RESULT CALL 05/16/2024 Telephone [facility] [address], [place] [phone] Nathalie Hsu MD CRITICAL RESULT CALL 05/09/2024 Telephone [facility] [address] [place] [address] Nathalie Hsu MD Anticoagulation from Last 3 [...] Pressure 128/74 08/03/2024 7:56 AM EDT Pulse 88 07/14/2024 1:20 PM EDT [...] Description 08/11/2024 1:15 PM EDT Office Visit [facility] MEDICINE [address] [place] [address] Renny Holloway MD [address] [place] [address] 09/19/2024 10:00 AM EDT Office Visit [facility] ADULT DENT[facility] [address] [place] [address] Panchito Lamas, DDS [address] [place] [address] 11/09/2024 1:00 PM EDT Office Visit [facility] OPTOMETRY [address] [place] [address] Seth, Zabrina, OD [address] [place] [address] 01/08/2025 10:00 AM EDT Office Visit [facility] AD[facility] [address] [place] [address] Ulises, Chiquita [address] [place] [address] Health Maintenance Due Date Last Done Comments [...] (Patient Refused) Alcohol/Substance Use Screening 01/18/2025 01/19/2024 Dental X-Ray: Bitewings 06/09/2025 06/08/2024 Tobacco Screening 08/03/2025 08/03/2024 Colorectal Cancer Screening 12/29/2026 FIT DNA/Cologuard 12/29/2026 [...] Procedure Name Priority Date/Time Associated Diagnosis Comments CASE PRESENTATION, DETAILED AND EXTENSIVE TREATMENT PLANNING Routine 08/03/2024 8:00 AM EDT 29 DOL RESIN-BASED COMPOSITE - 3 SURF, POSTERIOR Routine 08/03/2024 8:00 AM EDT PROTHROMBIN TIME-INR Routine 08/01/2024 PROTHROMBIN TIME-INR Routine 07/25/2024 PROTHROMBIN TIME-INR Routine [...] TIME-INR Routine 05/16/2024 PROTHROMBIN TIME-INR Routine 05/09/2024 LAB COLOGUARD?? COLON CANCER SCREEN Routine 12/30/2023 [...] Health Maintenance Results * (ABNORMAL) Prothrombin Time-INR (08/01/2024) Only the most recent of14 resultswithin the time period is included. INR 3.80(H) 2.50 - 3.50 EXTERNAL LAB Protime EXTERNAL LAB Blood Venous blood specimen / Unknown us Nathalie Hsu MD LAB BLOOD ORDERABLES Final Result EXTERNAL LAB * (ABNORMAL) CBC auto differential (07/14/2024 1:49 PM EDT) Pathologist [facility] White Blood Count 9.1 4.8 - 10.8 X10*3/uL [facility] Red Blood Count 4.59(L) 4.60 - 5.80 X10*6/uL [facility] Hemoglobin 14.3 14.0 - 18.0 g/dl [facility] Hematocrit 41.7(L) 42.0 - 52.0 % [facility] Mean Corpuscular Volume 90.8 80.0 - 98.0 fL [facility] Mean Corpuscular Hemoglobin 31.2 27.0 - 33.0 pg [facility] Mean Corpuscular HGB Conc 34.3 31.0 - 36.0 g/dl [facility] Red Cell Distribution Width 14.1 11.0 - 16.0 % [facility] Platelet Count 246 160 - 400 X10*3/uL [facility] Mean Platelet Volume 9.1(L) 9.4 - 12.4 fL [facility] Neutrophils Percent Auto 56.4 45 - 73 % [facility] Imm Gran Pct Auto 0.7(H) 0.0 - 0.4 % [facility] Lymphocytes Percent Auto 31.8 20 - 40 % [facility] Monocytes Percent Auto 7.7 2 - 11 % [facility] Eosinophils Percent Auto 2.4 0 - 4 % [facility] Basophils Percent Auto 1.0 0 - 2 % [facility] NRBC Pct Auto 0.0 0.0 - 0.2 /100WBC [facility] Neutrophils Absolute Auto 5.1 2.0 - 8.3 x10*3/uL [facility] Imm Gran Abs Auto 0.06(H) 0.00 - 0.03 X10*3/uL [facility] Lymphocytes Absolute Auto 2.9 1.2 - 4.9 X10*3/uL [facility] Monocytes Absolute Auto 0.7 0.1 - 1.2 X10*3/uL [facility] Eosinophils Absolute Auto 0.2 0.0 - 0.4 X10*3/uL [facility] Basophils Absolute Auto 0.1 0.0 - 0.2 X10*3/uL [facility] NRBC Abs Auto 0.000 0.0 - 0.012 X10*3/uL [facility] Blood Venous blood specimen / Unknown 07/14/2024 1:49 PM EDT 07/14/2024 3:58 PM EDT us Renny Holloway MD LAB BLOOD ORDERABLES Final Resul t [facility] [address] [place] [address] [phone] * CBC (07/14/2024 1:49 PM EDT) White Blood Count 9.0 4.8 - 10.8 X10*3/uL [facility] Red Blood Count 4.63 4.60 - 5.80 X10*6/uL [facility] Hemoglobin 14.3 14.0 - 18.0 g/dl [facility] Hematocrit 42.4 42.0 - 52.0 % [facility] Mean Corpuscular Volume 91.6 80.0 - 98.0 fL [facility] Mean Corpuscular Hemoglobin 30.9 27.0 - 33.0 pg [facility] Mean Corpuscular HGB Conc 33.7 31.0 - 36.0 g/dl [facility] Red Cell Distribution Width 13.9 11.0 - 16.0 % [facility] Platelet Count 258 160 - 400 X10*3/uL [facility] Mean Platelet Volume 9.5 9.4 - 12.4 fL [facility] NRBC Pct Auto 0.0 0.0 - 0.2 /100WBC [facility] NRBC Abs Auto 0.000 0.0 - 0.012 X10*3/uL [facility] 07/14/2024 1:49 PM EDT 07/14/2024 3:58 PM EDT us Generic External Data Provider LAB BLOOD ORDERAB LES Final Result Performing Organization Address [facility]/ZIP Co de Phone Number [facility] [address] [place] [phone] * Hepatic Function Panel (07/14/2024 1:49 PM EDT) Pathologist [facility] Bilirubin, Direct 0.3 0.0 - 0.5 mg/dL [facility] Blood Venous blood specimen / Unknown 07/14/2024 1:49 PM EDT 07/14/2024 3:58 PM EDT us Renny Holloway MD LAB BLOOD ORDERABLES Final Resul t Performing Organization Address [facility] Co de Phone Number [facility] [facility] [address] [place] [phone] * (ABNORMAL) Comprehensive Metabolic Panel (07/14/2024 1:49 PM EDT) Sodium 139 135 - 145 mmol/L [facility] Potassium 3.8 3.3 - 5.1 mmol/L [facility] Chloride 112(H) 96 - 108 mmol/L [facility] Carbon Dioxide 21(L) 22 - 29 mmol/L [facility] Anion Gap 10(L) 12 - 20 [facility] Urea Nitrogen (BUN) 17(H) 9 - 16 mg/dL [facility] Creatinine, Serum 1.01 0.5 - 1.4 mg/dL [facility] Estimated Glomerular Filt Rate >60 [facility] Comment:Chronic Kidney Disea se: Estimated GFR < 60 mL/min/1.65w1Ahehkp Kidney Disease: Estimated GFR < 15 mL/min/1.73m2 Glucose 93 60 - 115 mg/dL [facility] Calcium 9.0 8.4 - 10.2 mg/dL [facility] Bilirubin, Total 0.6 0.0 - 1.0 mg/dL [facility] Aspartate Amino Transferase 31 5 - 37 U/L [facility] Alanine Aminotransferase 37 0 - 40 U/L [facility] Total Protein 7.8 6.5 - 8.0 g/dL [facility] Albumin Level 4.0 3.5 - 5.0 g/dL [facility] Alkaline Phosphatase 131(H) 39 - 117 U/L [facility] 07/14/2024 1:49 PM EDT 07/14/2024 3:58 PM EDT us Generic External Data Provider LAB BLOOD ORDERAB LES Final Result [facility] [address] [place] [phone] * Cologuard?? colon cancer screening (12/30/2023 1:30 AM EDT) Cologuard Result Negative Negative 01/05/20 24 1:07 AM EDT [facility] (CLIA #:[id number]) Comment: NEGATIVE TEST RESULT. A negative Cologuard [...] cancer. ??Following a negative Cologuard result, the [place] [employer] and U.S. Multi-Society Task Force screening guidelines recommend a Cologuard re-screening interval of 3 years. References: [place] [employer] Guideline for Colorectal Cancer Screening: https://www.cancer.org/cancer/knits-sdttgn-sglehr/vbcdhjsnr-lrepasxti-eeqwuhp/ac s-rec ommendations.html.; Honorio DK, Lita NEGRETE, Luba JamesK, Colorectal Cancer Screening: Recommendations for Physicians and Patients from the U.S. Multi-Society Task Force on Colorectal Cancer Screening , Am J Gastroenterology 2017; 112:5163-4467. TEST DESCRIPTION: Composite algorithmic analysis of stool [...] colonoscopy. (Tien Fleming, N Engl J Med 2014;370(14):3608-4242.) Cologuard may produce a false negative or false positive result (no colorectal cancer or precancerous polyp present at colonoscopy follow up). A negative Cologuard test result does not guarantee the absence of CRC or advanced adenoma (pre-cancer). The current Cologuard screening interval is every 3 years. ([place] [employer] and U.S. Multi-Society Task Force). Cologuard performance data in a 10,000 patient pivotal study using colonoscopy as the reference method can be accessed at the following location: www.GoMetro.Workana/results. Additional description of the Cologuard test process, warnings and precautions can be found at www.cologWhat's in My Handbagrd.com. Stool specimen (specimen) Rectal contents / Unknown 12/30/2023 1:30 AM EDT 01/01/2024 3:30 PM EDT us Nathalie Hsu MD LAB MOLECULAR DIAGNOSTICS ORDERABLES Final Result [facility] (CLIA #:[id number]) Alexandra [place] [address], * Hepatitis C Antibody with Reflex to HCV, RNA, Quantitative, Real-Time PCR (08/10/2022 11:24 AM EDT) Hepatitis C Antibody NON-REACT KG NON-REACT KG [facility] [employer] Index 0.13 <1.00 [facility] Comment: HCV antibody was non-reactive. There is no laboratory evidence of HCV infection. In most cases, no further action is required. However, if recent HCV exposure is suspected, a test for HCV RNA (test code 02431) is suggested. For additional information please refer to http://education.[employer].Workana/faq/WHR74y0 (This link is being provided for informational/ educational purposes only.) Blood Venous blood specimen / Unknown 08/10/2022 11:24 AM EDT 08/10/2022 11:25 AM EDT Narrative [facility] - 08/16/2022 12:40 AM EDT FASTING:NO FASTING: NO us Nathalie Hsu MD LAB BLOOD ORDERABLES Final Result [facility] [address], [place] [address] [facility] [address] [place] [address] * HIV-1/2 Antigen and Antibodies, Fourth Generation, with Reflexes (08/10/2022 11:24 AM EDT) Pathologist [facility] HIV Antigen/Antibody, 4th Generation NON-REAC TIVE NON-REAC TIVE [facility] [employer] Comment: HIV-1 antigen and HIV-1/HIV-2 antibodies were [...] ?? For additional information please refer to http://education.Piaochong.com/faq/SUL574 (This link is being provided for informational/ educational purposes only.) The performance of this assay has not been clinically validated in patients less than 2 years old. Blood Venous blood specimen / Unknown 08/10/2022 11:24 AM EDT 08/10/2022 11:25 AM EDT Narrative [facility] - 08/16/2022 12:40 AM EDT FASTING:NO FASTING: NO Nathalie Hsu MD LAB BLOOD ORDERABLES Final Result [facility] [address], [place] [address] [facility] [address] [place] [address] * Lipid Panel, Standard (08/10/2022 11:24 AM EDT) Cholesterol, Total 161 <200 mg/dL [facility] HDL Cholesterol 62 > OR = 40 mg/dL [facility] Triglycerides 109 <150 mg/dL [facility] LDL Cholesterol 80 mg/dL (calc) [facility] Comment: Reference range: <100 Desirable range <100 mg/dL for primary prevention; ?? <70 mg/dL for patients with CHD or diabetic patients with > or = 2 CHD risk factors. LDL-C is now calculated using the Anthony-Garner calculation, which is a validated novel method providing better accuracy than the Friedewald equation in the estimation of LDL-C. Anthony SS et al. FLAKITA. 2013;310(19): 5891-4921 (http://education.Data Impact/faq/KIN260) Chol/HDLC Ratio 2.6 <5.0 (calc) [facility] Non-HDL Cholesterol 99 <130 mg/dL (calc) [facility] Comment: For patients with diabetes plus 1 major ASCVD risk factor, treating to a non-HDL-C goal of <100 mg/dL (LDL-C of <70 mg/dL) is considered a therapeutic option. Blood Venous blood specimen / Unknown 08/10/2022 11:24 AM EDT 08/10/2022 11:25 AM EDT Narrative [facility] - 08/16/2022 12:40 AM EDT FASTING:NO FASTING: NO Nathalie Hsu MD LAB BLOOD ORDERABLES Final Result [facility] [address], [place] [address] [facility] [address] [place] [address] * Hm Colonoscopy (03/05/2012) Colonoscopy Dr. Zhang Tosha Provider HEALTH MAINTENANCE Final Result from Last 3 Months or Most Recently Relevant to Health Maintenance Insurance [facility] C3 DENTAL-[facility] MEDICAID STAND ADULT Advance Directives Documents on File Type Date Recorded Patient Sky Cap Expl anation Advance Directives and Living Will 06/10/2023 1:14 PM Health Care Proxy Care Teams Range Operator Relationship Specialty Start Date End Date Nathalie Hsu MD [address] [place] [address] PCP - General Family Medicine 09/27/13 Shannan Barrow, RN [address] [place] [address] Registered Nurse 02/29/24 Lisbeth Johnson [address] [place] [address] Drive [address] [place] [address] Gastroenterology 03/15/24 Tonya Poole Real Estate AccountantSearch Strategist 01/19/24 Raman ([facility]) Registered Nurse 02/29/24 Marcos Verdin MD [facility] [address] [place] [address] Cardiology 03/10/24 Omid Vincent Psychiatry 03/15/24
--- OUTSIDE RECORDS SUMMARY | 2024-08-04 13:54 | XMS_ITS | Encounter Summary ---
Author Organization [facility] Address [address] [place] [address] Care Team Providers Care Brim Pouncing Machine Operator Name Role Phone Nathalie Hsu MD Primary Care Provider [phone] Shannan Barrow RN Unavailable [phone] Lisbeth Johnson Unavailable Reason for Visit * Reason Comments Med Refill Encounter Details Date Type Department Care Team (Late st Contact Info) Description 03/30/2024 Refill [facility] [address] [place], [place] [phone] Nathalie Hsu MD [address] [place], [place] [phone] History of alcohol abuse; Hypomagnesemia; Mild intermittent [...] Description 08/11/2024 1:15 PM EDT Office Visit [facility] [address] [place] [address] Renny Holloway MD [address] [place] [address] 09/19/2024 10:00 AM EDT Office Visit [facility] [address] [place] [address] Panchito Lamas DDS [address] [place] [address] 11/09/2024 1:00 PM EDT Office Visit [facility] [address] [place] [address] Zabrina Ann, GEETA [address] [place] [address] 01/08/2025 10:00 AM EDT Office Visit [facility] [address] [place] [address] Chiquita Montgomery [address] [place] [address] documented as of this encounter Visit Diagnoses Diagnosis History of alcohol abuse Nondependent alcohol abuse, in remission Hypomagnesemia Disorders of magnesium metabolism Mild intermittent asthma, unspecified whether complicated documented in this encounter Additional Health Concerns Assessment Noted Time PHQ-9 Depression Total Score: 0 06/09/19 24 9:13 AM EST documented as of this encounter Care Teams Brim Pouncing Machine Operator Relationship Specialty Start Date End Date Nathalie Hsu MD [address] [place] [address] PCP - General Family Medicine 09/27/13 Shannan Barrow, KHAI [address] [place] [phone] Registered Nurse 02/29/24 Lisbeth Johnson [address] [place] [address] Drive 3[address] [place] [address] Gastroenterology 03/15/24 Tonya Poole Social Media ExecutiveMachine Package Sealer 01/19/24 Raman ([facility]) Registered Nurse 02/29/24 Marcos Verdin MD [place] [facility] [address] [place] [address] Cardiology 03/10/24 Omid Vincent Psychiatry 03/15/24 documented as of this encounter
[2024-08-04 13:56] LABS: Basophils Absolute Auto 0.1 X10*3/uL (0.0-0.2); Basophils Percent Auto 1.1 % (0-2); Eosinophils Absolute Auto 0.1 X10*3/uL (0.0-0.4); Eosinophils Percent Auto 1.4 % (0-4); Hematocrit 41.6 % (42.0-52.0); Hemoglobin 14.2 g/dl (14.0-18.0); Lymphocytes Absolute Auto 2.2 X10*3/uL (1.2-4.9); Lymphocytes Percent Auto 30.1 % (20-40); Mean Corpuscular HGB Conc 34.1 g/dl (31.0-36.0); Mean Corpuscular Hemoglobin 31.1 pg (27.0-33.0); Mean Corpuscular Volume 91.2 fL (80.0-98.0); Monocytes Absolute Auto 0.6 X10*3/uL (0.1-1.2); Monocytes Percent Auto 8.7 % (2-11); Neutrophils Absolute Auto 4.2 x10*3/uL (2.0-8.3); Neutrophils Percent Auto 58.3 % (45-73); Red Blood Count 4.56 X10*6/uL (4.60-5.80); Red Cell Distribution Width 13.9 % (11.0-16.0)
[2024-08-04 13:57] LABS: Alanine Aminotransferase 23 U/L (0-40); Alkaline Phosphatase 116 U/L (39-117); Anion Gap 13 (12-20); Aspartate Amino Transferase 25 U/L (5-37); Bilirubin Total 0.6 mg/dL (0.0-1.0); Blood Urea Nitrogen 30 mg/dL (9-16); Carbon Dioxide 21 mmol/L (22-29); Chloride 108 mmol/L (96-108); Creatinine Clr Calc Pharmacy 43.6; Estimated Glomerular Filt Rate 38; Glucose Random 104 mg/dL (60-115); Lipase 19 U/L (8-78); Magnesium 1.7 mg/dL (1.6-2.6); Platelet Count 235 X10*3/uL (160-400); Potassium 3.7 mmol/L (3.3-5.1); Sodium 138 mmol/L (135-145); Total Protein 7.6 g/dL (6.5-8.0); White Blood Count 7.3 X10*3/uL (4.8-10.8)
--- NOTE | 2024-08-04 14:00 | PC.NURSE ---
Patient is a 63 y/o man awith a history Acute toxic encephalopathy due to alcohol intoxication and polypharmacy (olanzapine, Ambien, buspirone, melatonin) presents with c/o abominal pain with assoc n/v/d. Lungs clear bilat. Respirations even and non-labored. Abdomen soft with positive bowel sounds. No significant tenderness noted. Positive pedal pulses with no edema.
[2024-08-04 14:04] LABS: Troponin-I High Sensitivity 7.6 ng/L (<3.5-35.0)
[2024-08-04 14:08] VITALS: BP 110/67; PULSE 67; RESP 18; TEMP 36.7; O2SAT 96
[2024-08-04 14:23] LABS: Influenza A PCR NEGATIVE (Negative); Influenza B PCR NEGATIVE (Negative); Resp Syncy Virus RNA Qual PCR NEGATIVE (Negative); SARS COV2 PCR INHOUSE NEGATIVE (Negative)
[2024-08-04] MEDS: 0.9 % Sodium Chloride 1,000 ML 999 ML IV ×2 (14:47→15:41)
[2024-08-04 14:49] LABS: B Type Natriuretic Peptide 117 pg/mL (<100)
[2024-08-04] MEDS: ondansetron HCL 4 MG/2 ML VIAL IVPUSH (14:53)
[2024-08-04] MEDS: Famotidine/PF 20 MG/2 ML VIAL IVPUSH (14:53)
[2024-08-04 15:18] LABS: D Dimer High Sensitivity 336 NG/ML
[2024-08-04 15:44] VITALS: BP 153/78; PULSE 84; RESP 16; TEMP 36.7; O2SAT 97
[2024-08-04 16:08] LABS: Appearance Urine Clear; Color Urine Yellow; Glucose Urine UA Negative (Negative); Leukocyte Esterase Urine Negative (Negative); Nitrite Urine Negative (Negative); PH 5.5 (5.0-9.0); Urine Blood Negative (Negative); Urine Ketones Negative (Negative); Urine Protein Trace mg/dL (Neg-Trace)
[2024-08-04 17:17] LABS: Troponin-I High Sensitivity 5.5 ng/L (<3.5-35.0)
[2024-08-04 17:23] VITALS: BP 112/82; PULSE 64; RESP 16; TEMP 36.8; O2SAT 97
--- NOTE | 2024-08-04 17:50 | MHC.EDTECH ---
Repeated labs drawn and sent to lab ,Repeated vitals taken .
[2024-08-04 19:00] VITALS: BP 135/70; PULSE 68; RESP 16; TEMP 36.3; O2SAT 97
[2024-08-04 19:09] LABS: Anion Gap 15 (12-20)
[2024-08-04 19:14] LABS: Alanine Aminotransferase 20 U/L (0-40); Albumin Level 3.4 g/dL (3.5-5.0); Alkaline Phosphatase 98 U/L (39-117); Aspartate Amino Transferase 20 U/L (5-37); Bilirubin Total 0.5 mg/dL (0.0-1.0); Blood Urea Nitrogen 26 mg/dL (9-16); Calcium 8.1 mg/dL (8.4-10.2); Carbon Dioxide 15 mmol/L (22-29); Chloride 113 mmol/L (96-108); Creatinine Clr Calc Pharmacy 56.1; Estimated Glomerular Filt Rate 51; Glucose Random 97 mg/dL (60-115); Potassium 3.9 mmol/L (3.3-5.1); Sodium 139 mmol/L (135-145); Total Protein 6.6 g/dL (6.5-8.0)
--- NOTE | 2024-08-04 19:37 | MHC.EDTECH ---
Patient was given dinner ,ate 75 % of meal ,and drank 360 ml fluids .
[2024-08-04 19:43] VITALS: BP 135/70; PULSE 68; RESP 16; TEMP 36.3; O2SAT 97
== END 2024-08-04 19:45 | disposition left against medical advice (07) ==
PROVIDERS: Nurse Practitioner Family; Physician Assistant; Emergency Provider Emergency Medicine; PCP Family Medicine
DX: N17.9 Acute kidney failure, unspecified (principal); R79.89 Other specified abnormal findings of blood chemistry; R07.9 Chest pain, unspecified; M25.512 Pain in left shoulder; R10.9 Unspecified abdominal pain; R19.7 Diarrhea, unspecified; R11.10 Vomiting, unspecified; Z03.818 Encounter for observation for suspected exposure to other biological agents ruled out
CPT/HCPCS: 0241U; 36415; 71046; 71250; 74176; 78580; 80053; 81003; 83690; 83735; 83880; 84484; 85025; 85379; 85610; 93005; 96361; 96374; 96375; 99284; 99285; A9540; J1308; J2405

== ENCOUNTER → 2024-08-04 12:57 | Outpatient (BNV) | payer MEDICAID, SELFPAY | PROVIDERS: PCP Family Medicine; Visit Provider Radiology Diagnostic Radiology | DX: R79.89 Other specified abnormal findings of blood chemistry (principal) | CPT/HCPCS: 71046; 71250; 74176; 78580 ==

== ENCOUNTER → 2024-08-04 12:57 | Outpatient (BNV) | payer MEDICAID, SELFPAY | PROVIDERS: Emergency Provider Emergency Medicine; PCP Family Medicine; Visit Provider Internal Medicine Cardiovascular Disease | DX: I49.8 Other specified cardiac arrhythmias (principal); I49.3 Ventricular premature depolarization | CPT/HCPCS: 93010 ==

== ENCOUNTER 2024-08-18 09:09 | Emergency (ER) | payer MEDICAID, SELFPAY ==
--- NOTE | ~2024-08-18 | XR_ITS ---
EXAMINATION: XR RIBS, LEFT CLINICAL INFORMATION: fall, pain COMPARISON: 08/04/2024. TECHNIQUE: PA chest, and 4 views of the left ribs were obtained. FINDINGS: Right-sided dual-lead pacer device in place with leads extending into the right atrium and right ventricle. Prior median sternotomy and aortic valve replacement. Aortic mural calcifications. Cardiac and mediastinal contours appear normal. Lungs are clear. No consolidation, pneumothorax, or pleural effusion. The cardiomediastinal silhouette and pulmonary vasculature are normal. Osseous structures are unremarkable. Acute fractures of the 8th through 10th ribs on the left. Acute comminuted distal left clavicle fracture. XR/XR ribs LT min 3V w CXR1V IMPRESSION: 1. Acute minimally displaced fractures of the lateral left eighth through 10th ribs. 2. No pneumothorax. 3. Acute comminuted fracture distal left clavicle. Electronically signed by: Keron Herrera MD 08/18/2024 10:39 AM EDT
--- NOTE | ~2024-08-18 | XR_ITS ---
EXAMINATION: XR SHOULDER, LEFT CLINICAL INFORMATION: fall, pain COMPARISON: None available. TECHNIQUE: Three views of the left shoulder. FINDINGS: Comminuted and displaced fracture of the distal clavicle. There are several bony fragments present. No significant bayoneting or angulation. Mild superior displacement of the main fragment. The glenohumeral joint is normal. The AC joint demonstrates mild arthritic changes. There is a type II acromion. No undersurface spurring. The subacromial space is preserved. Remainder of the soft tissue and bony structures appear normal. XR/XR shoulder LT min 2V IMPRESSION: Comminuted mildly displaced fracture of the distal clavicle. Electronically signed by: Keron Herrera MD 08/18/2024 10:34 AM EDT
[2024-08-18 09:15] VITALS: BP 112/70; PULSE 97; O2SAT 94
--- NOTE | 2024-08-18 09:17 | ED.ABDPAIN ---
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 He reports onset after a mechanical trip and fall Wednesday; 4 days ago. He has extensive ecchymosis over the shoulder as well as left anterior chest. He admits to a history of chronic shortness of breath but states that it has increased since the fall. He is anticoagulated on warfarin and states he has been compliant, reports [facility] comes to the home and checks his INR 3 times weekly does not recall the most recent INR level. Denies any numbness tingling or swelling of the extremities. He denies any head strike or loss of consciousness with the fall, he is without any headache, dizziness, lightheadedness, vision changes, neck pain. He additionally reports that since last night he has had 3 episodes of bilious nonbloody emesis as well as 2 episodes of soft stool described as diarrhea without bright red blood or black in color which he attributes to his lactulose usage. He denies any associated abdominal pain. He states that the stools are typical for him, however he does not always vomit. He denies any known ill contacts. Related Data Home Medications ?Medication ?Instructions ?Recorded ?Confirmed melatonin 5 mg tablet 2 tab PO BEDTIME PRN insomnia 10/18/20 01/23/24 atorvastatin 20 mg tablet 20 mg PO DAILY 11/18/20 01/23/24 blood pressure test kit-large #1 ea 11/18/20 02/09/23 lidocaine 5 % topical patch 1 patch topical DAILY 11/18/20 01/23/24 magnesium oxide 400 mg (241.3 mg 400 mg PO BID 11/18/20 01/23/24 magnesium) tablet pantoprazole 40 mg tablet,delayed 40 mg PO BID 11/18/20 01/23/24 release thiamine HCl (vitamin B1) 100 mg 100 mg PO DAILY 11/18/20 01/23/24 tablet olanzapine 5 mg tablet 1 tab PO BEDTIME 10/10/21 01/23/24 acetaminophen 500 mg tablet 500 mg PO BID PRN Mild Pain (Scale 05/11/22 01/23/24 Score 1-4) albuterol sulfate 90 mcg/actuation 2 puff inhalation Q4H PRN 05/11/22 01/23/24 aerosol inhaler (Ventolin HFA) Respiratory Distress buspirone 10 mg tablet 10 mg PO TID 05/11/22 01/23/24 sacubitril 24 mg-valsartan 26 mg 1 tab PO BID 06/12/22 01/23/24 tablet (Entresto) budesonide-formoterol HFA 160 2 puff inhalation BID 02/09/23 01/23/24 mcg-4.5 mcg/actuation aerosol inhaler (Symbicort) clopidogrel 75 mg tablet 75 mg PO DAILY 05/17/23 01/23/24 acamprosate 333 mg tablet,delayed 666 mg PO BID 09/15/23 01/23/24 release hydroxyzine pamoate 50 mg capsule 100 mg PO BEDTIME PRN insomnia 01/23/24 01/23/24 warfarin 5 mg tablet 5 mg PO DAILY 01/23/24 01/23/24 lactulose 10 gram/15 mL oral 30 ml PO TID 04/28/24 solution warfarin 10 mg tablet 10 mg PO DAILY 07/07/24 ferrous sulfate 325 mg (65 mg 325 mg PO QAM 07/28/24 iron) tablet,delayed release metoprolol succinate 25 mg 25 mg PO QA 07/28/24 tablet,extended release 24 hr nicotine 14 mg/24 hr daily 1 patch topical [facility] 07/28/24 transdermal patch quetiapine 50 mg tablet 50 mg PO DAILY PRN 07/28/24 Previous Rx's ?Medication ?Instructions ?Recorded furosemide 40 mg tablet 40 mg PO DAILY #30 tabs 05/29/23 rifaximin 550 mg tablet 550 mg PO BID 90 days #180 tabs 03/17/24 oxycodone 5 mg tablet 5 mg PO Q6H PRN pain #10 tabs 08/18/24 Allergies Allergy/AdvReac Type Severity Reaction Status Date / Time lorazepam [From ATIVAN] AdvReac Severe OPPOSITE Verified 08/18/24 09:22 EFFECT PSYCOTIC EFECTS Review of Systems Review of Systems Yes all other systems are reviewed and are negative PMFSH Past Medical History Attestation statement: The following information was validated with the patient. Source: old records reviewed Medical History Sepsis Rhabdomyolysis EDGAR (acute kidney injury) Supratherapeutic INR Fall Acute hyponatremia Intracranial hemorrhage Coronary artery disease Chronic systolic CHF (congestive heart failure) Hypertension Short-segment Harrell's esophagus Pacemaker Skull fracture Alcoholic liver disease Cocaine abuse Alcohol abuse Surgical History Aortic valve replaced S/P CABG (coronary artery bypass graft) H/O aortic valve replacement History of esophagogastroduodenoscopy (EGD) Social History Social History Household Members: None Housing: Apartment Do you presently have visiting nurse or other home services: Yes ([facility]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) Alcohol intake: current Alcohol intake frequency: a few times a week Alcohol type: beer Comment: pt refused, to have assistance with ambulation, chair and bed alarm Patient Tobacco Use Status: Current everyday Tobacco user Tobacco use type: Cigarette Cigarette Packs Per Day: 1 Cigarettes Per Day: 20.0 Second Hand Smoke Exposure: No Substance Use Type: Marijuana Advance Directives: Yes Advance Directives on File: Yes Advance Directives Date on File: 10/11/21 Do you have a plan to hurt others: No Plan service: No Current occupational status: unemployed Physical Exam ED Vital Signs: Vital Signs - 24 hr 08/18/24 09:22 Temperature 98.5 F Pulse Rate 88 Respiratory Rate 22 H Blood Pressure 119/72 Pulse Oximetry 94 Oxygen Delivery Method Room Air BMI result Body Mass Index 30.0 Appearance: Alert.?Oriented to person, place and time. No acute distress.?Normal affect. Eyes: Pupils equal, round and reactive to light.? ENT: Pharynx normal.?? Neck: Normal inspection.? Neck supple.?? CVS: Heart sounds normal. Normal heart rate and rhythm.? Pulses normal.?? Respiratory: No respiratory distress.? Lung sounds course to auscultation bilaterally?? Abdomen: Soft and non-tender. Normoactive bowel sounds. Skin: Skin warm and dry.? Normal skin color.? ? Extremities: extensive aging ecchymosis to the left shoulder in the left anterior chest decreased AROM to the left shoulder. 2+ radial pulse. No upper or lower extremity edema.? No calf ttp? Neuro: Moves all extremities spontaneously. Sensation intact bilaterally. CN II-XII intact. No focal neuro deficits. Ambulates with normal steady gait. Course Reevaluation(s) Reevaluation #1: CBC is without leukocytosis, has a mild normocytic anemia that does not meet transfusion criteria. no electrolyte derangement. No EDGAR. LFTs and lipase unremarkable. High sensitive troponin within normal range, EKG revealing paced rhythm ventricular rate of 82, QTC 541, no ST-elevation, appears consistent with prior ECG 08/04/2024. BNP within normal range. supratherapeutic INR of 4.1, he was advised not to take his Coumadin this evening, states [facility] is coming to his home today after 14:00, he will discuss with them today's current INR as well as appropriate follow-up for repeat levels. XR imaging of the left shoulder revealing a comminuted displaced fracture of the distal clavicle for which he will be placed in a sling, for outpatient follow-up with orthopedics in addition to minimally displaced fracture of the left lateral 8th 9th and 10th ribs without evidence of pneumothorax. had ambulatory O2 saturation trial performed, O2 saturation 94-95% steadily, and provide instructions on incentive spirometry. Patient has been without any episodes of diarrhea in the emergency department therefore GI panel/ C difficile testing was not sent. Has had no episodes of vomiting. He is tolerating oral intake. Abdominal examination remains benign. Medical Decision Making Medical Decision Making MDM Narrative: Patient is a 64-year-old male with past medical history of AVR on warfarin, alcohol use disorder with alcoholic liver disease, history of cocaine use disorder, CHF with reduced EF, CH be s/p pacemaker, history of intracranial hemorrhage, CAD s/p CABG, mood disorder who presents emergency department with primary complaint of left shoulder and left anterior chest pain in addition to diarrhea which as per HPI is chronic for him secondary to lactulose usage and 2 episodes of bilious non bloody vomiting since last night. Overall he appears well, no acute distress. Vital signs are stable. Lung sounds are present bilaterally into the apices however course, room air O2 saturation 93-94%, no increased work of breathing. No palpable crepitus along the left anterior chest or chest wall. Left shoulder has decreased AROM but the extremity is neurovascularly intact distally. Despite his vomiting and diarrhea, he has a benign abdominal examination, lower suspicion for acute intra-abdominal pathology. However given his history of alcohol use disorder, can not completely exclude pancreatitis. Will obtain CBC to evaluate for leukocytosis/ anemia, CMP and lipase to evaluate for abnormal electrolytes /abnormal renal function/ abnormal hepatic/biliary function, EKG and troponin to evaluate for ischemia/ACS. Chest/ Rib x-ray to evaluate for fracture/ pneumothorax, XR of the left shoulder to evaluate for fracture /dislocation. He has had prior visits as well for diarrhea, I suspect that this is most consistent with his lactulose usage however if he has any further diarrheal episodes here will send testing to lab for GI panel as well as C difficile Differential Diagnosis Differential Diagnoses: The differential diagnosis associated with the presentation includes ( see narrative above) Admission/Observation Consideration of admission/observation: Escalation of care including admission/observation considered Lab Data MDM Lab Attestation statement: I reviewed the patient's lab results. 08/18/24 10:02 08/18/24 10:37 Labs: Lab Results 08/18/24 08/18/24 08/18/24 Range/Units 10:02 10:34 10:37 WBC 9.4 (4.8-10.8) X10*3/uL RBC 4.34 L (4.60-5.80) X10*6/uL Hgb 13.8 L (14.0-18.0) g/dl Hct 39.4 L (42.0-52.0) % MCV 90.8 (80.0-98.0) fL MCH 31.8 (27.0-33.0) pg MCHC 35.0 (31.0-36.0) g/dl RDW 15.1 (11.0-16.0) % Plt Count 233 (160-400) X10*3/uL MPV 8.9 L (9.4-12.4) fL Immature Gran % (Auto) 0.5 H (0.0-0.4) % Neut % (Auto) 65.4 (45-73) % Lymph % (Auto) 22.9 (20-40) % Beauregard % (Auto) 8.7 (2-11) % Eos % (Auto) 1.6 (0-4) % Baso % (Auto) 0.9 (0-2) % Lymph # (Auto) 2.1 (1.2-4.9) X10*3/uL Beauregard # (Auto) 0.8 (0.1-1.2) X10*3/uL Eos # (Auto) 0.2 (0.0-0.4) X10*3/uL Baso # (Auto) 0.1 (0.0-0.2) X10*3/uL Abs Immat Gran (auto) 0.05 H (0.00-0.03) X10*3/uL Absolute Neuts (auto) 6.1 (2.0-8.3) x10*3/uL Absolute Nucleated RBC 0.000 (0.0-0.012) X10*3/uL Nucleated RBC % (auto) 0.0 (0.0-0.2) /100WBC Hold Purple Top SEE NOTE PT 46.6 H D (10.9-12.4) SEC INR 4.1 H (0.9-1.1) Sodium 138 (135-145) mmol/L Potassium 4.1 (3.3-5.1) mmol/L Chloride 108 (96-108) mmol/L Carbon Dioxide 22 (22-29) mmol/L Anion Gap 12 (12-20) BUN 13 (9-16) mg/dL Creatinine 0.88 (0.5-1.4) mg/dL Estim Creat Clear Calc 87.5 Estimated GFR > 60 Random Glucose 99 (60-115) mg/dL Calcium 9.1 D (8.4-10.2) mg/dL Magnesium 1.6 (1.6-2.6) mg/dL Total Bilirubin 0.7 (0.0-1.0) mg/dL AST 25 (5-37) U/L ALT 18 (0-40) U/L Alkaline Phosphatase 114 (39-117) U/L Troponin I High Sens 3.0 (<3.5-35.0) ng/L B-Natriuretic Peptide 97 (<100) pg/mL Total Protein 7.6 (6.5-8.0) g/dL Albumin 4.0 (3.5-5.0) g/dL Lipase 12 (8-78) U/L Influenza Type A (PCR) NEGATIVE (Negative) Influenza Type B (PCR) NEGATIVE (Negative) RSV RNA Qual (PCR) NEGATIVE (Negative) SARS-CoV-2 RNA (RT-PCR) NEGATIVE (Negative) Radiology Impression Discussion of test interpretation with radiology: I have reviewed the radiologist's reading. Radiologist Impression: XR/XR ribs LT min 3V w CXR1V IMPRESSION: 1. Acute minimally displaced fractures of the lateral left eighth through 10th ribs. 2. No pneumothorax. 3. Acute comminuted fracture distal left clavicle. XR/XR shoulder LT min 2V IMPRESSION: Comminuted mildly displaced fracture of the distal clavicle. Independent Historian Clinical information obtained from an independent historian. History obtained from or confirmed by: EMS External Record Review External record reviewed: Outpatient record and Other I attest that I have reviewed patients Mass[employer], and at the time prescribing the patient a controlled substance is appropriate based off of patients diagnosis and treatment plan. Chronic Conditions Patient?s care impacted by: Other ( see narrative above) Medications Administered Discontinued Medications Generic Name Dose Route Start Last Admin Trade Name Freq PRN Reason Stop Dose Admin Ondansetron HCl 4 mg 08/18/24 09:44 08/18/24 10:18 Ondansetron Odt 4 Mg Tab.Rapdis TRANSLINGU 08/18/24 09:45 4 mg ONCE ONE Administration Discharge Plan Discharge Clinical Impression: Subtherapeutic anticoagulation Clavicle fracture Qualifiers: Encounter type: initial encounter Clavicle location: lateral end Fracture type: closed Fracture alignment: displaced Laterality: left Qualified Code(s): S42.032A - Displaced fracture of lateral end of left clavicle, initial encounter for closed fracture Closed rib fracture Qualifiers: Encounter type: initial encounter Rib fracture type: multiple ribs Laterality: left Qualified Code(s): S22.42XA - Multiple fractures of ribs, left side, initial encounter for closed fracture Patient Disposition: Home, Self-Care Instructions: Clavicle Fracture (ED), Rib Fracture (ED) Additional Instructions: imaging today shows that you have a fracture of your clavicle as well as ribs on your left side 8, 9, in 10. As discussed, these can all be very painful. You have been provided with a sling to keep on your left arm. You should use a pillow or your arm to help raise the side of your chest with any coughing or sneezing as this may result in increase in pain. You were provided with an incentive spirometer while in the emergency department and instructed on appropriate usage to try and help prevent collapse of lung and/or pneumonia. Please contact your primary care provider to arrange for a follow-up visit next week. You have also been provided contact information for the orthopedic office to follow-up accordingly tracking, contact their office later today or Wednesday morning to arrange for a follow-up appointment. You can take Tylenol 500 mg, 2 tablets (1,000mg) every 4-6 hours as needed for pain, but not to exceed 3 doses daily (3,000mg).?For pain that is unrelieved by this I have sent a short prescription for oxycodone to your pharmacy. This is a narcotic medication. It may make you drowsy. You should not drive, drink alcohol, or work while taking this medication. additionally, as discussed your INR today was 4.1. This is the blood level associated with your Coumadin. Please do not take this evening's dose of Coumadin. When your visiting nurse arrives to the home today please make sure that you make her aware of this result, and they will discuss with the you appropriate follow-up for repeat level testing. If you experience any signs of bleeding you may presents emergency department for evaluation. Prescriptions: New oxycodone 5 mg tablet 5 mg PO Q6H PRN (Reason: pain) Qty: 10 0RF Rx Instructions: Partial Fill upon patient request. No Action rifaximin 550 mg tablet 550 mg PO BID 90 Days Qty: 180 1RF melatonin 5 mg tablet 2 tab PO BEDTIME PRN (Reason: insomnia) olanzapine 5 mg tablet 1 tab PO BEDTIME acetaminophen 500 mg Tablet 500 mg PO BID PRN (Reason: Mild Pain (Scale Score 1-4)) buspirone 10 mg Tablet 10 mg PO TID albuterol sulfate [Ventolin HFA] 90 mcg/actuation Hfa Aerosol Inhaler 2 puff INHALATION Q4H PRN (Reason: Respiratory Distress) acamprosate 333 mg tablet,delayed release (DR/EC) 666 mg PO BID hydroxyzine pamoate 50 mg capsule 100 mg PO BEDTIME PRN (Reason: insomnia) warfarin 5 mg tablet 5 mg PO DAILY budesonide-formoterol [Symbicort] 160-4.5 mcg/actuation HFA aerosol inhaler 2 puff inhalation BID clopidogrel 75 mg tablet 75 mg PO DAILY furosemide 40 mg Tablet 40 mg PO DAILY Qty: 30 0RF Protocol: Hold for SBP< HOLD for SBP < : 90 pantoprazole 40 mg tablet,delayed release (DR/EC) 40 mg PO BID magnesium oxide 400 mg (241.3 mg magnesium) tablet 400 mg PO BID thiamine HCl (vitamin B1) 100 mg tablet 100 mg PO DAILY atorvastatin 20 mg tablet 20 mg PO DAILY (DME) blood pressure test kit-large Kit See Rx Instructions .ROUTE DIRECTED Qty: 1 Rx Instructions: As directed lidocaine 5 % adhesive patch,medicated 1 patch topical DAILY Protocol: Apply to: Apply to: AFFECTED AREA Entresto 24-26 mg tablet 1 tab PO BID lactulose 10 gram/15 mL solution 30 ml PO TID quetiapine 50 mg tablet 50 mg PO DAILY PRN nicotine 14 mg/24 hr patch 24 hour 1 patch topical QAM metoprolol succinate 25 mg tablet extended release 24 hr 25 mg PO QAM ferrous sulfate 325 mg (65 mg iron) tablet,delayed release (DR/EC) 325 mg PO QAM warfarin 10 mg tablet 10 mg PO DAILY Referrals: [facility] [place] Orthopedic Surgeons [Provider Group] Natahlie Hsu MD [Primary Care Provider] - Print Language: Welsh
[2024-08-18 09:22] VITALS: BP 119/72; PULSE 88; RESP 22; TEMP 36.9; O2SAT 94
--- NOTE | 2024-08-18 09:31 | ECG_ITS ---
Test Reason : cp Blood Pressure : */* mmHG Vent. Rate : 82 BPM Atrial Rate : 82 BPM P-R Int : 182 ms QRS Dur : 168 ms QT Int : 446 ms P-R-T Axes : 21 47 105 degrees QTcB Int : 521 ms Atrial-sensed ventricular-paced rhythm Abnormal ECG When compared with ECG of 04-Aug-2024 13:24, Premature ventricular complexes are no longer Present Vent. rate has increased by 8 bpm Referred By: Greta Daniels Electronically Signed By: EMILIE LEVY MD
--- OUTSIDE RECORDS SUMMARY | 2024-08-18 09:54 | XMS_ITS | Encounter Summary ---
Author Organization [employer] Address [address] [place] [address] Care Team Providers Care Compensation Adjuster Name Role Phone [place], Nathalie ABDI Primary Care Provider [phone] Shannan Barrow RN Unavailable [phone] Lisbeth Johnson Unavailable Reason for Visit * Reason Onset Date Comments Dr. Lamas medication 06/20/2024 Encounter Details Date Type Department Care Team (Late st Contact Info) Description 06/20/2024 Telephone [facility] ADULT DENTAL [address] [place], [place] [phone] Panchito Lamas DDS [address] [place], [place] [phone] Dr. Lamas medication Social History Tobacco Use [...] Care Team (Late st Contact Info) Description 09/19/2024 10:00 AM EDT Office Visit [facility] [address] [place] [address] Panchito Lamas DDS [address] [place] [address] 11/09/2024 1:00 PM EDT Office Visit [facility] OPTOMETRY [address] [place] [address] Seth, Zabrina, OD [address] [place] [address] 01/08/2025 10:00 AM EDT Office Visit [facility] [address] [place] [address] Adalberto Montgomeryaris [address] [place] [address] documented as of this encounter Visit Diagnoses Not on filedocumented in this encounter Additional Health Concerns Assessment Noted Time PHQ-9 Depression Total Score: 0 06/09/19 24 9:13 AM EST documented as of this encounter Care Teams Compensation Adjuster Relationship Specialty Start Date End Date Nathalie Hsu MD [address] [place] [address] PCP - General Family Medicine 09/27/13 Shannan Barrow, RN [address] [place] [address] Registered Nurse 02/29/24 iLsbeth Johnson [address] [place] [address] Drive [address] [place] [address] Gastroenterology 03/15/24 Tonya oPole [employer] Aide 01/19/24 Raman ([facility]) Registered Nurse 02/29/24 Marcos Verdin MD [place] [facility] [address] [place] [address] Cardiology 03/10/24 Omid Vincent Psychiatry 03/15/24 documented as of this encounter
--- OUTSIDE RECORDS SUMMARY | 2024-08-18 09:55 | XMS_ITS | Clinical Summary ---
Author Organization [employer] Address [address] [place] [address] Care Team Providers Care Claim Examiner Name Role Phone LivingstonNathalie segovia MD Primary Care Provider [phone] Shannan Barrow RN Unavailable [phone] Lisbeth Johnson Unavailable Allergies Active Allergy [...] 12/10/23 and INR was 13, transferred to [facility] Closed fracture of transvers e process [...] diet discussed. Avoid hepatotoxic agents. -Followed by: Retail Product Demo Specialist, Dr. Johnson: Note from 07/28/24 reviewed -Again strongly reviewed strict abstinence from etOH which hte pt has maintained so far. However, he unfortunately continues to smoke. Strongly counseled re that as well and will be referred to [facility]. -In terms of sarcopenia frailty, encouraged daily [...] add a night time snack such as greenlandic yogurt, PB etc - Electroencephalograph Technician referral - CLose follow up in 2 weeks -GI note 04/28/24 - Clarified need for CCC and Electroencephalograph Technician referrals - Due for EGD/colo - needs repeat echo ordered to follow up on cardiomyopathy prev EF 20-25% - Will also confirm his OP munitions handler for clearance - Pt reminded to bring [...] Recently established care with Dr Holloway at [facility] for substance use disorder recovery and support. - Clarified need for CCC and Electroencephalograph Technician referrals - EGD/colo to be booked. He is aware he will need to review coumadin hold with his munitions handler for this procedure - US abd ordered [...] by: New appointment with GI 03/15/24 at [facility] Assessment & Plan (01/19/2024 9:14 [...] due after 03/03/2024 -eye care facilitated by [facility] -dental home is [facility] -health care proxy on file 02/08/2015, filed into [employer] on 06/09/23 Assessment & Plan (03/10/2024 9:55 PM EST): -next comprehensive annual evaluation due after 03/03/2024 -eye care facilitated by [facility] -dental home is [facility] care proxy on file 02/08/2015, filed into [employer] on 06/09/23 Assessment & Plan (01/19/2024 9:20 AM EDT): -next comprehensive annual evaluation due after 03/03/2024 -eye care facilitated by [facility] -dental home is [facility] care proxy on file 02/08/2015, filed into [employer] on 06/09/23 Assessment & Plan (12/27/2023 11:02 AM EDT): -next comprehensive annual evaluation due after 03/03/2024 -eye care facilitated by [facility] -dental home is [facility] care proxy on file 02/08/2015, filed into [employer] on 06/09/23 Assessment & Plan (10/22/2023 11:16 AM EDT): -next physical exam due after 03/03/2024 -eye care facilitated by [facility] -dental home is [facility] care proxy on file 02/08/2015, filed into [employer] on 06/09/23 Assessment & Plan (03/03/2023 9:35 [...] entresto startd by cardiology 05/2022 -F/u with munitions handler ANA Smith -furosemide 40 mg started during [...] entresto startd by cardiology 05/2022 -F/u with munitions handler ANA Smith -furosemide 40 mg started during [...] entresto startd by cardiology 05/2022 -F/u with munitions handler ANA Smith -Furosemide 40 mg started during [...] entresto startd by cardiology 05/2022 -F/u with munitions handler ANA Smith -Furosemide 40 mg started during [...] entresto startd by cardiology 05/2022 -F/u with munitions handler ANA Smith Assessment & Plan (06/03/2022 11:12 [...] entresto startd by cardiology 05/2022 -F/u with munitions handler ANA Smith Assessment & Plan (05/07/2022 10:43 [...] daily, and amlodipine 2.5mg daily -F/u with munitions handler ANA Smith -He is overdue for follow [...] (12/24/2022): -Hospitalized for subarachnoid hemorrhage 10/2021 at [facility] after fall in the setting of supratheraputic INR of 16 and heavy alcohol use. He was changed to lovenox but could not tolerate the injections. Back on coumadin with improved INRs. He is also on plavix. ER precautions discussed. Assessment & Plan (10/22/2023 11:16 AM EDT): -Hospitalized for subarachnoid hemorrhage 10/2021 at [facility] after fall in the setting of supratheraputic INR of 16 and heavy alcohol use. He was changed to lovenox but could not tolerate the injections. Back on coumadin with improved INRs. He is also on plavix. ER precautions discussed. Assessment & Plan (06/09/2023 9:36 AM EST): -Hospitalized for subarachnoid hemorrhage 10/2021 at [facility] after fall in the setting of supratheraputic INR of 16 and heavy alcohol use. He was changed to lovenox but could not tolerate the injections. Back on coumadin with improved INRs. He is also on plavix. ER precautions discussed. Assessment & Plan (08/11/2022 7:29 AM EDT): -Hospitalized for subarachnoid hemorrhage 10/2021 at [facility] after fall in the setting of supratheraputic INR of 16 and heavy alcohol use. He was changed to lovenox but could not tolerate the injections. Back on coumadin with improved INRs. He is also on plavix. ER precautions discussed. Assessment & Plan (06/03/2022 11:07 AM EST): -Hospitalized for subarachnoid hemorrhage 10/2021 at [facility] after fall in the setting of supratheraputic INR of 16 and heavy alcohol use. Now on Lovenox and clopidogrel. Assessment & Plan (05/07/2022 10:53 AM EST): Hospitalized for subarachnoid hemorrhage 10/2021 at [facility] after fall in the setting of [...] daily drinking and rum - established with [facility] because insurance no longer accepted by [facility]. -Patient followed at [facility] with Dr. Cristine Deleon DO, seen [...] daily drinking and rum - established with [facility] because insurance no longer accepted by [facility]. -Patient followed at [facility] with Dr. Cristine Deleon DO, seen [...] daily drinking and rum - established with [facility] because insurance no longer accepted by [facility]. -Patient followed at [facility] with Dr. Cristine Deleon DO, seen [...] daily drinking and rum - established with [facility] because insurance no longer accepted by [facility]. -Patient followed at [facility] with Dr. Cristine Deleon DO, seen [...] drinking and rum - established with [facility] because insurance no longer accepted by [facility]. -Patient followed at [facility] with Dr. Cristine Deleon DO, seen [...] drinking and rum - established with [facility] because insurance no longer accepted by [facility]. Assessment & Plan (11/30/2022 8:51 PM EDT): hx of aortic stenosis s/p Aortic valve repair, hx of AF , cardiomyopathy with EF 25-30%, ,hx AAA repair, complete heart block s/p pacemaker,CAD s/P stent INR goal 2.5 to 3.5 -continue to f up with his munitions handler-next apt w Dr Deleon is on 12/08/2022 - I called cards' office # [phone] and confirmed day and hour and gave [...] daily drinking and rum - Established with [facility] because insurance no longer accepted by [facility]. Assessment & Plan (06/03/2022 11:09 AM [...] ETOH with intracranial bleed. - established with [facility] because insurance no longer accepted by [facility]. Last seen 05/2022 recommending 4 week follow up Assessment & Plan (05/07/2022 10:46 AM EST): Hx [address] 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 No hx CABG. Pacemaker placed for AV radha block. -On Coumadin, managed by [facility]. - established with [facility] because insurance no longer accepted by [facility]. Presence of cardiac pacemaker 03/07/2014 Overview [...] Encouraged smoking cessation resources such as pharmacomtherapy, [facility] smoking cessation group, and [facility] pharmacy smoking cessation clinic -currently smoke [...] as pharmacomtherapy, [facility] smoking cessation group, and [facility] pharmacy smoking cessation clinic -currently smoke [...] as pharmacomtherapy, [facility] smoking cessation group, and [facility] pharmacy smoking cessation clinic -currently smoke [...] as pharmacomtherapy, [facility] smoking cessation group, and [facility] pharmacy smoking cessation clinic -currently smoke [...] 06/09/23 Alcohol Use Disorder Clinic [facility] Support and [facility] televist tolerating the medication. Admits [...] 06/09/23 Alcohol Use Disorder Clinic [facility] Support and [facility] televist tolerating the medication. Admits [...] tried AA. He was seeing a therapist, eJnnifer as well as some short term case [...] Encounters Date Type Department Care Team Description 08/15/2024 Telephone [facility] P[facility] [address] [place] [address] [phone] Nathalie Hsu MD Critical Lab 08/14/2024 Refill [facility] MED[facility] [address] [place] [address] [phone] Nathalie Hsu MD Alcoholic liver disease ([facility]/HCC) 08/08/2024 Telephone [facility] [address] [place] [address] [phone] Nathalie Hsu MD critical lab 08/07/2024 Patient Outreach [address] [address] Nathalie Hsu MD Care Coordination ([facility]- ED status check) 08/07/2024 Patient Outreach [address] [address] Nathalie Hsu MD 08/04/2024 Orders Only GENERIC EXTERNAL DATA DEPARTMENT Provider, Generic External Data 08/03/2024 8:00 AM EDT Office Visit [facility] ADULT DENTAL [address] [place] [phone] Panchito Lamas DDS Severe dental caries (Primary Dx) 08/02/2024 Telephone [facility] [address] [place] [address] [phone] Shannan Barrow RN Anticoagulation 08/02/2024 Telephone [facility] [address] [place] [address] 11553 Nathalie Hsu MD PT1 07/25/2024 Telephone [facility] [address] [place] [address] 05476 Nathalie Hsu MD critical lab 07/20/2024 Refill [facility] [address] [place] [address] 90787 Nathalie Hsu MD Primary insomnia 07/19/2024 Refill [facility] [address] [place] [address] [phone] Nathalie Hsu MD Alcoholic liver disease ([facility]/HCC); Primary insomnia 07/18/[address] [address] Nathalie Hsu MD INR/Coumadin Dosing 07/14/2024 1:00 PM EDT Office Visit [address] [address] Renny Holloway MD Alcohol use disorder, severe, dependence ([facility]/HCC) (Primary Dx); Tobacco dependence 07/14/[address] [address] Shannan Barrow, KHAI Results 07/14/2024 Orders Only GENERIC EXTERNAL DATA DEPARTMENT Provider, Generic External Data 07/14/2024 Travel 07/11/[address] [address] Nathalie Hsu MD INR results 07/05/[address] [address] Nathalie Hsu MD Referral 07/05/[address] [address] Hermelinda Hernandez ANP History of prosthetic heart valve 07/04/2024 Anticoagulation - Warfarin Visit [address] [address] Nathalie Hsu MD History of prosthetic heart valve 07/04/[address] [address] Nathalie Hsu MD critical lab 07/04/2024 Refill [facility] AD[facility] DENT[facility] [address] [place] [address] Panchito Lamas DDS Severe dental caries; Dental root caries; Advanced periodontitis; Excessive attrition of teeth, limited to enamel; Missing teeth, acquired; Dental calculus 07/04/[address] [address] Nathalie Hsu MD Anemia, unspecified type 07/03/[address] [address] Nathalie Hsu MD Alcoholic liver disease (CMS/HCC); Anemia, unspecified type 06/28/2024 Refill [facility] [address] [place] [address] 12895 Nathalie Hsu MD Mild intermittent asthma without complication 06/27/[address] [address] Nathalie Hsu MD INR results 06/27/2024 Refill [facility] [address] [place] [address] 60[address] Nathalie Hsu MD Pain; Mild intermittent asthma without complication 06/20/[address] [address] Nathalie Hsu MD critical lab 06/20/2024 Telephone [facility] AD[facility] DENT[facility] [address] [place] [address] Bolano medication 06/19/2024 Refill [facility] [address] [place], [place] [phone] Nathalie Hsu MD 06/16/2024 Population Health Risk Score [facility] () Department [address] [place] [phone] Provider, Population Health Generic 06/13/[address] [address] Nathalie Hsu MD INR/Coumadin Dosing 06/09/2024 1:15 PM EST Telemedicine [facility] [address] [place] [phone] Renny Holloway MD Alcohol use disorder, severe, dependence (CMS/HCC) (Primary Dx) 06/09/2024 Travel 06/08/2024 9:30 AM EST Office Visit [facility] AD[facility] DENT[facility] [address] [place] [phone] Panchito Lamas DDS Severe dental caries (Primary Dx); Dental root caries; Advanced periodontitis; Excessive attrition of teeth, limited to enamel; Missing teeth, acquired; Dental calculus 06/06/[address] [address] Nathalie Hsu MD Results 06/02/2024 Refill [facility] [address] [place] [address] Nathalie Hsu MD 05/30/2024 Telephone [facility] [address] [place] [address] Nathalie Hsu MD CRITICAL RESULT CALL/INR 05/29/2024 Refill [facility] [address] [place] [phone] Nathalie Hsu MD Alcoholic liver disease (CMS/HCC) 05/26/2024 Patient Outreach [facility] [address] [place] [phone] Nathalie Hsu MD Care Coordination ([facility] outreach for SDOH PT-1 and food needs-referral completed /) 05/26/2024 Telephone [facility] [address] [place], [place] [phone] Nathalie Hsu MD PT-1 05/23/[address] [phone] Nathalie Hsu MD CRITICAL RESULT CALL from Last 3 Months Immunizations Immunization Administration Dates Next Due DTaP 10/24/2014 Hep [...] Description 09/19/2024 10:00 AM EDT Office Visit [facility] AD[facility] DENT[facility] [address] [place] [address] Panchito Lamas, DDS [address] [place] [address] 11/09/2024 1:00 PM EDT Office Visit [facility] OPTOMET[facility] [address] [place] [address] Seth, Zabrina, OD [address] [place] [address] 01/08/2025 10:00 AM EDT Office Visit [facility] AD[facility] DENT[facility] [address] [place] [address] Ulises, Chiquita [address] [place] [address] Health Maintenance Due Date Last Done Comments [...] patient's age to complete this topic Meningococcal B Vaccine Aged Out No l onger eligible based on patient's age to complete [...] Date/Time Associated Diagnosis Comments PROTHROMBIN TIME-INR Routine 08/15/2024 PROTHROMBIN TIME-INR Routine 08/08/2024 NM LUNG PERFUSION Routine 08/05/2024 2:3 1 AM EDT COMPREHENSIVE METABOLIC PANEL Routine 08/04/2024 5:49 PM EDT HIGH SENSITIVITY TROPONIN I Routine 08/04/2024 4:52 PM EDT URINALYSIS WITH REFLEX MICROSCOPIC Routine 08/04/2024 3:[address] ABDOMEN PELVIS WO CONTRAST Routine 08/04/2024 3:[address] CHEST WO CONTRAST Routine 08/04/2024 3:02 PM EDT CASE PRESENTATION, DETAILED AND EXTENSIVE TREATMENT [...] TIME-INR Routine 05/30/2024 PROTHROMBIN TIME-INR Routine 05/23/2024 LAB COLOGUARD?? COLON CANCER SCREEN Routine 12/30/2023 [...] to Health Maintenance Results * Prothrombin Time-INR (08/15/2024) Only the most recent of14 resultswithin the time period is included. INR 3.20 2.50 - 3.50 EXTERNAL LAB Protime EXTERNAL LAB Blood Venous blood specimen / Unknown Nathalie Hsu MD LAB BLOOD ORDERABLES Final Result EXTERNAL LAB * NM Lung Perfusion (08/05/2024 2:31 AM EDT) Anatomical Region Laterality Modality Body Nuclear Medicine 08/05/2024 2:31 AM EDT Narrative 08/05/2024 2:33 AM EDT ? [facility] ?[address] ?[place] [address] ?Nuclear Medicine Report ? Signed ? Patient: Federico,Omid ?MR#: [id number] ?? 14 ? : 1960 ?Acct:[id number] ? Age/Sex: 64 / M ?ADM Date: 05/02/25 ? Loc: HO.ED ? Attending Dr: ? Ordering Physician: Hero Walker ?? Date of Service: 08/04/24 ?? Procedure(s): NM pul perfusion ?? Accession Number(s): [id number] ? cc: Hero Walker; Nathalie Hsu MD ? CLINICAL HISTORY: positive D-dimer. PE? NM Lung Perfusion ? Comparison: Chest CT from 08/04/2024 ? Findings: ?? 2.5 mCi technetium 99m MAA used. ?? No ventilation imaging achieved. ?? No medium or large peripheral wedged shaped defects by perfusion imaging. ?? Small right lower defect measures area of air trapping with emphysematous ?? change when comparison CT. Central uptake related to cardiomegaly. Minimal ?? linear peripheral low-attenuation as can be seen with pleural pathology ?? with mild pleural thickening noted on comparison chest CT with left-sided ?? old rib fractures. ? IMPRESSION: ?? Low probability of pulmonary embolism. ? This document has been electronically signed by: Jamaal Davies MD on ?? 08/05/2024 02:31:25 ? Dictated By: ?Jamaal Davies MD ? Signed By: ?<Electronically signed by Jamaal Davies MD in OV> ? 08/05/24 0232 ? DD/ 0231 ? TD/TT: 08/05/24 0231 ? Apartment Property Manager: ? Procedure Note [place], [place] - 08/05/[address] [address] Nuclear Medicine Report Signed Patient: Mandi Caballero#: [id number] 14 : 1960cct:[id number] Age/Sex: 64 / MADM Date: 08/04/24 Loc: HO.ED Attending Dr: Ordering Physician: Hero Walker Date of Service: 08/04/24 Procedure(s): NM pul perfusion Accession Number(s): [id number] cc: Hero Walker; Nathalie Hsu MD CLINICAL HISTORY: positive D-dimer. PE? NM Lung Perfusion Comparison: Chest CT from 08/04/2024 Findings: 2.5 mCi technetium 99m MAA used. No ventilation imaging achieved. No medium or large peripheral wedged shaped defects by perfusion imaging. Small right lower defect measures area of air trapping with emphysematous change when comparison CT. Central uptake related to cardiomegaly. Minimal linear peripheral low-attenuation as can be seen with pleural pathology with mild pleural thickening noted on comparison chest CT with left-sided old rib fractures. IMPRESSION: Low probability of pulmonary embolism. This document has been electronically signed by: Jamaal Davies MD on 08/05/2024 02:31:25 Dictated By: Jamaal Davies MD Signed By: <Electronically signed by Jamaal Davies MD in OV> 08/05/24231 DD/ 0 TD/TT: 08/05/24230 Apartment Property Manager: [facility] External Provider IMG NM PROCEDURES Final Result * (ABNORMAL) Comprehensive Metabolic Panel (08/04/2024 5:49 PM EDT) Only the most recent of2 resultswithin the time period is included. Sodium 139 135 - 145 mmol/L [facility] Potassium 3.9 3.3 - 5.1 mmol/L [facility] Chloride 113(H) 96 - 108 mmol/L [facility] Carbon Dioxide 15(L) 22 - 29 mmol/L [facility] Anion Gap 15 12 - 20 [facility] Urea Nitrogen (BUN) 26(H) 9 - 16 mg/dL [facility] Creatinine, Serum 1.40 0.5 - 1.4 mg/dL [facility] Creatinine Clr Calc Pharmacy 56.1 [facility] Comment:eGFR (calculated fro m the MDRD study equation) and eCrCl(calculated from the Cockcroft-Gault equation) are based ondifferent parameters and may not yield comparable results.If eCrCl result is absurd, please check patient'sheight/weight. Estimated Glomerular Filt Rate 51 [facility] Comment:Chronic Kidney Disea se: Estimated GFR < 60 mL/min/1.96k6Eunlwu Kidney Disease: Estimated GFR < 15 mL/min/1.73m2 Glucose 97 60 - 115 mg/dL [facility] Calcium 8.1(L) 8.4 - 10.2 mg/dL [facility] Bilirubin, Total 0.5 0.0 - 1.0 mg/dL [facility] Aspartate Amino Transferase 20 5 - 37 U/L [facility] Alanine Aminotransferase 20 0 - 40 U/L [facility] Total Protein 6.6 6.5 - 8.0 g/dL [facility] Albumin Level 3.4(L) 3.5 - 5.0 g/dL [facility] Alkaline Phosphatase 98 39 - 117 U/L [facility] 08/04/2024 5:49 PM EDT 08/04/2024 5:51 PM EDT Generic External Data Provider LAB BLOOD ORDERAB LES Final Result Performing Organization Address [facility] Co de Phone Number [facility] [address] [place] [phone] * High Sensitivity Troponin I (08/04/2024 4:52 PM EDT) TROPONIN I HIGH SENSITIVITY 5.5 <3.5 - 35.0 ng/L [facility] Comment:The [place] high sens itivity Troponin-I results should beused in conjunction with other diagnostic information suchas ECG, clinical observations and information, and patientsymptoms to aid in the diagnosis of [place]. 08/04/2024 4:52 PM EDT 08/04/2024 4:54 PM EDT us Generic External Data Provider LAB BLOOD ORDERAB LES Final Result Performing Organization Address [facility]/ZIP Co de Phone Number [facility] [address] [place] [address] [phone] * Urinalysis w/reflex microscopic (08/04/2024 3:57 PM EDT) Color Urine Yellow [facility] Appearance Urine Clear [facility] PH 5.5 5.0 - 9.0 [facility] Glucose Urine UA Negative Negative mg/dL [facility] Urine Blood Negative Negative [facility] Specific [place] - Urine 1.020 1.005 - 1.025 [facility] Urine Protein Trace Neg-Trace mg/dL [facility] Urine Ketones Negative Negative mg/dL [facility] Nitrite Urine Negative Negative [facility] Leukocyte Esterase Urine Negative Negative [facility] 08/04/2024 3:57 PM EDT 08/04/2024 4:03 PM EDT Narrative [facility] - 08/04/2024 4:10 PM EDT Urine, Clean Catch us Generic External Data Provider LAB URINE ORDERAB LES Final Result [facility] [address] [place], [place] [phone] * CT Chest w/o Contrast (08/04/2024 3:02 PM EDT) Anatomical Region Laterality Modality Body, Chest Computed Tomogra phy 08/04/2024 3:02 PM EDT Narrative 08/04/2024 4:48 PM EDT ? [facility] ?[address] ?[place] [address] ? CT Scan Report ? Signed ? Patient: Omid Caballero ?MR#: [id number] ?? 14 ? : 1960 ?Acct:[id number] ? Age/Sex: 64 / M ?ADM Date: 08/04/24 ? Loc: HO.ED ? Attending Dr: ? Ordering Physician: Hero Walker ?? Date of Service: 08/04/24 ?? Procedure(s): CT chest wo IV con ?? Accession Number(s): [id number] ? cc: Hero Walker; Nathalie Hsu MD ? Report Number: ?? [id number]: Total DLP = ?0.00 mGy-cm ?? EXAMINATION: ?? CT CHEST WITHOUT CONTRAST ? CLINICAL INFORMATION: ?? Left-sided chest pain ? COMPARISON: ?? CT chest 12/08/2023 ? TECHNIQUE: ?? Multidetector volumetric CT imaging of the chest was done. Axial MIP ?? volume rendering provided. Sagittal and coronal reformatted images were ?? obtained. ? This CT examination was performed using dose optimization techniques as ?? appropriate, variously including the following: ?? *Automated exposure control ?? *Adjustment of mA and/or kV according to patient size (this includes ?? techniques or standardized protocols for targeted exams where dose is ?? matched to indication/reason for exam; i.e. extremities or head) ?? *Use of iterative reconstruction technique ?? DLP: 890 ? FINDINGS: ? DREDGEMASTER: Well-inflated lungs. ? LUNGS: The lungs are well-expanded and clear acute pneumonic process. ?? There is a 3 mm nodule right middle lobe axial image 87/8, 6 mm nodule ?? left lower lobe adjacent to the major fissure axial image 75/8 ?? platelike atelectasis in the lingula. ? MEDIASTINUM: Thyroid lobes are symmetrical and normal. The central ?? trachea and bronchial airway is widely patent. Heart size and the great ?? vessels are normal caliber. Then are pacer electrodes in right atrium ?? and right ventricle. No pericardial effusion seen. ??No abnormal size ?? mediastinal or hilar lymph nodes seen. ? CORONARY ARTERY CALCIFICATION: Moderate coronary artery calcifications ?? are noted ? PLEURA: There is no pleural effusion. No pleural mass or thickening. ? AXILLA: No abnormal axillary lymph nodes seen. ? UPPER ABDOMEN: Visualized liver, spleen, pancreas, bilateral adrenal ?? glands and the kidneys are unremarkable. No radiopaque gallstones seen. ? OSSEOUS STRUCTURES: There are multiple left eighth, ninth, 10th and ?? 11th rib old fractures ??. There are median sternotomy sutures from ?? previous intervention. ? CT/CT chest wo IV con ?? IMPRESSION: ?? Multiple left eighth, ninth, 10th and 11th rib old fractures. No acute ?? fractures seen. No lytic process. Small insignificant pulmonary ?? nodules. ? Fleischner guidelines were followed. ? Electronically signed by: ??Soto Tripathi MD ??08/04/2024 04:45 PM EDT RP ? Dictated By: ?Soto Tripathi MD ? Signed By: ?<Electronically signed by Soto Tripathi MD in OV> ?08/04/24 1645 ? DD/ 1502 ? TD/TT: 08/04/24 1624 ? Apartment Property Manager: MSM ? Procedure Note [place], [place] - 08/04/[address] [address] [address] Scan Report Signed Patient: Mandi Caballero#: [id number] 14 : 1960cct:[id number] Age/Sex: 64 / MADM Date: 08/04/24 Loc: HO.ED Attending Dr: Ordering Physician: Hero Walker Date of Service: 08/04/24 Procedure(s): CT chest wo IV con Accession Number(s): [id number] cc: Hero Walker; Nathalie Hsu MD Report Number: [id number]: Total DLP = 0.00 mGy-cm EXAMINATION: CT CHEST WITHOUT CONTRAST CLINICAL INFORMATION: Left-sided chest pain COMPARISON: CT chest 12/08/2023 TECHNIQUE: Multidetector volumetric CT imaging of the chest was done. Axial MIP volume rendering provided. Sagittal and coronal reformatted images were obtained. This CT examination was performed using dose optimization techniques as appropriate, variously including the following: *Automated exposure control *Adjustment of mA and/or kV according to patient size (this includes techniques or standardized protocols for targeted exams where dose is matched to indication/reason for exam; i.e. extremities or head) *Use of iterative reconstruction technique DLP: 890 FINDINGS: DREDGEMASTER: Well-inflated lungs. LUNGS: The lungs are well-expanded and clear acute pneumonic process. There is a 3 mm nodule right middle lobe axial image 87/8, 6 mm nodule left lower lobe adjacent to the major fissure axial image 75/8 platelike atelectasis in the lingula. MEDIASTINUM: Thyroid lobes are symmetrical and normal. The central trachea and bronchial airway is widely patent. Heart size and the great vessels are normal caliber. Then are pacer electrodes in right atrium and right ventricle. No pericardial effusion seen. No abnormal size mediastinal or hilar lymph nodes seen. CORONARY ARTERY CALCIFICATION: Moderate coronary artery calcifications are noted PLEURA: There is no pleural effusion. No pleural mass or thickening. AXILLA: No abnormal axillary lymph nodes seen. UPPER ABDOMEN: Visualized liver, spleen, pancreas, bilateral adrenal glands and the kidneys are unremarkable. No radiopaque gallstones seen. OSSEOUS STRUCTURES: There are multiple left eighth, ninth, 10th and 11th rib old fractures . There are median sternotomy sutures from previous intervention. CT/CT chest wo IV con IMPRESSION: Multiple left eighth, ninth, 10th and 11th rib old fractures. No acute fractures seen. No lytic process. Small insignificant pulmonary nodules. Fleischner guidelines were followed. Electronically signed by: Soto Tripathi MD 08/04/2024 04:45 PM EDT RP Dictated By: Soto Tripathi MD Signed By: <Electronically signed by Soto Tripathi MD in OV> 08/04/24 1645 DD/ 1502 TD/TT: 08/04/24 1624 Apartment Property Manager: TAYO [facility] External Provider IMG CT PROCEDURES Final Result * CT Abdomen Pelvis w/o Contrast (08/04/2024 3:02 PM EDT) Anatomical Region Laterality Modality Body, Pelvis, Abdomen Computed T omography 08/04/2024 3:02 PM EDT Narrative 08/04/2024 4:56 PM EDT ? [facility] ?[address] ?[place] [address] ? CT Scan Report ? Signed ? Patient: Omid Caballero ?MR#: [id number] ?? 14 ? : 1960 ?Acct:[id number] ? Age/Sex: 64 / M ?ADM Date: 05/02/25 ? Loc: HO.ED ? Attending Dr: ? Ordering Physician: Hero Walker ?? Date of Service: 08/04/24 ?? Procedure(s): CT abdomen pelvis wo IV con ?? Accession Number(s): [id number] ? cc: Hero Walker; Nathalie Hsu MD ? Report Number: ?? [id number]: Total DLP = ??890.00 mGy-cm ?? EXAMINATION: ?? CT ABDOMEN AND PELVIS WITHOUT CONTRAST ? CLINICAL INFORMATION: ?? Abdominal pain and diarrhea. ? COMPARISON: ?? None available. ? TECHNIQUE: ?? Multidetector volumetric imaging was performed from the superior aspect ?? of the liver through the pubic symphysis. Sagittal and coronal ?? reformatted images were obtained on the technologist's workstation. ? This CT examination was performed using dose optimization techniques as ?? appropriate, variously including the following: ?? *Automated exposure control ?? *Adjustment of mA and/or kV according to patient size (this includes ?? techniques or standardized protocols for targeted exams where dose is ?? matched to indication/reason for exam; i.e. extremities or head) ?? *Use of iterative reconstruction technique ? FINDINGS: ?? LUNG BASES: The visualized lung bases are unremarkable. ??Heart size is ?? normal. There are pacer electrodes in right atrium and right ventricle. ?? Moderate coronary artery calcifications are present. There are left rib ?? fractures as described on CT chest. ? LIVER, GALLBLADDER, AND BILIARY TREE: The liver is normal in size, ?? shape, and attenuation. No focal hepatic lesion or biliary ductal ?? dilatation is present. The gallbladder is unremarkable with no evidence ?? of radiopaque gallstones, gallbladder wall thickening, or obvious ?? pericholecystic inflammatory changes. ? PANCREAS: Unremarkable. ? SPLEEN: Unremarkable. ? ADRENAL GLANDS: Unremarkable. ? KIDNEYS AND URETERS: The kidneys are normal in size, shape, and ?? attenuation. No hydronephrosis, hydroureter, or calculi seen. No ?? perinephric stranding. ? There are punctate calcification in left renal hilum likely vascular.. ? BLADDER: Unremarkable. ? GASTROINTESTINAL TRACT: There is scattered stool and gas seen in colon ?? without distention. The small bowel loops are normal caliber. Appendix ?? is not visualized. The stomach is nondistended no inflammatory process ?? of free air seen. ? ABDOMINAL WALL: No significant hernia is appreciated. ? LYMPH NODES: Normal. ? VASCULAR: There is atherosclerotic calcification of abdominal aorta ?? without aneurysmal dilatation. ? PELVIC VISCERA: The prostate gland is normal size. No abnormal pelvic ?? lymph nodes or hernia seen. ? OSSEOUS STRUCTURES: Mildly in this changes with vacuum disc phenomenon ?? L5-S1, L4-5 and L2-3 disc levels. No aggressive lytic process seen. ?? There is a wedge deformity T12 and T10 vertebra likely old. ? CT/CT abdomen pelvis wo IV con ?? IMPRESSION: ?? No acute intra-abdominal process seen. ? Fleischner guidelines were followed. ? Electronically signed by: ??Soto Tripathi MD ??08/04/2024 04:53 PM EDT RP ? Dictated By: ?Soto Tripathi MD ? Signed By: ?<Electronically signed by Soto Tripathi MD in OV> ?08/04/24 1653 ? DD/ 1502 ? TD/TT: 08/04/24 1624 ? Apartment Property Manager: MSM ? Procedure Note [place] - 08/04/[address] [place] [address] [address] Scan Report Signed Patient: Mandi Caballero#: [id number] 14 : 1960cct:[id number] Age/Sex: 64 / MADM Date: 08/04/24 Loc: HO.ED Attending Dr: Ordering Physician: Hero Walker Date of Service: 08/04/24 Procedure(s): CT abdomen pelvis wo IV con Accession Number(s): [id number] cc: Hero Walker; Nathalie Hsu MD Report Number: [id number]: Total DLP = 890.00 mGy-cm EXAMINATION: CT ABDOMEN AND PELVIS WITHOUT CONTRAST CLINICAL INFORMATION: Abdominal pain and diarrhea. COMPARISON: None available. TECHNIQUE: Multidetector volumetric imaging was performed from the superior aspect of the liver through the pubic symphysis. Sagittal and coronal reformatted images were obtained on the technologist's workstation. This CT examination was performed using dose optimization techniques as appropriate, variously including the following: *Automated exposure control *Adjustment of mA and/or kV according to patient size (this includes techniques or standardized protocols for targeted exams where dose is matched to indication/reason for exam; i.e. extremities or head) *Use of iterative reconstruction technique FINDINGS: LUNG BASES: The visualized lung bases are unremarkable. Heart size is normal. There are pacer electrodes in right atrium and right ventricle. Moderate coronary artery calcifications are present. There are left rib fractures as described on CT chest. LIVER, GALLBLADDER, AND BILIARY TREE: The liver is normal in size, shape, and attenuation. No focal hepatic lesion or biliary ductal dilatation is present. The gallbladder is unremarkable with no evidence of radiopaque gallstones, gallbladder wall thickening, or obvious pericholecystic inflammatory changes. PANCREAS: Unremarkable. SPLEEN: Unremarkable. ADRENAL GLANDS: Unremarkable. KIDNEYS AND URETERS: The kidneys are normal in size, shape, and attenuation. No hydronephrosis, hydroureter, or calculi seen. No perinephric stranding. There are punctate calcification in left renal hilum likely vascular.. BLADDER: Unremarkable. GASTROINTESTINAL TRACT: There is scattered stool and gas seen in colon without distention. The small bowel loops are normal caliber. Appendix is not visualized. The stomach is nondistended no inflammatory process of free air seen. ABDOMINAL WALL: No significant hernia is appreciated. LYMPH NODES: Normal. VASCULAR: There is atherosclerotic calcification of abdominal aorta without aneurysmal dilatation. PELVIC VISCERA: The prostate gland is normal size. No abnormal pelvic lymph nodes or hernia seen. OSSEOUS STRUCTURES: Mildly in this changes with vacuum disc phenomenon L5-S1, L4-5 and L2-3 disc levels. No aggressive lytic process seen. There is a wedge deformity T12 and T10 vertebra likely old. CT/CT abdomen pelvis wo IV con IMPRESSION: No acute intra-abdominal process seen. Fleischner guidelines were followed. Electronically signed by: Soto Tripathi MD 08/04/2024 04:53 PM EDT Dictated By: Soto Tripathi MD Signed By: <Electronically signed by Soto Tripathi MD in OV> 08/04/24 1653 DD/ 1502 TD/TT: 08/04/24 1624 Apartment Property Manager: TAYO [facility] External Provider IMG CT PROCEDURES Final Result * (ABNORMAL) CBC auto differential (07/14/2024 1:49 PM EDT) White Blood Count 9.1 4.8 - 10.8 X10*3/uL [facility] Red Blood Count 4.59(L) 4.60 - 5.80 X10*6/uL [facility] Hemoglobin 14.3 14.0 - 18.0 g/dl [facility] Hematocrit 41.7(L) 42.0 - 52.0 % [facility] Mean Corpuscular Volume 90.8 80.0 - 98.0 fL [facility] Mean Corpuscular Hemoglobin 31.2 27.0 - 33.0 pg [facility] Mean Corpuscular HGB Conc 34.3 31.0 - 36.0 g/dl [facility] Red Cell Distribution Width 14.1 11.0 - 16.0 % [facility] Platelet Count 246 160 - 400 X10*3/uL [facility] Mean Platelet Volume 9.1(L) 9.4 - 12.4 fL [facility] Neutrophils Percent Auto 56.4 45 - 73 % [facility] Imm Gran Pct Auto 0.7(H) 0.0 - 0.4 % [facility] Lymphocytes Percent Auto 31.8 20 - 40 % [facility] Monocytes Percent Auto 7.7 2 - 11 % [facility] Eosinophils Percent Auto 2.4 0 - 4 % [facility] Basophils Percent Auto 1.0 0 - 2 % [facility] NRBC Pct Auto 0.0 0.0 - 0.2 /100WBC [facility] Neutrophils Absolute Auto 5.1 2.0 - 8.3 x10*3/uL [facility] Imm Gran Abs Auto 0.06(H) 0.00 - 0.03 X10*3/uL [facility] Lymphocytes Absolute Auto 2.9 1.2 - 4.9 X10*3/uL [facility] Monocytes Absolute Auto 0.7 0.1 - 1.2 X10*3/uL [facility] Eosinophils Absolute Auto 0.2 0.0 - 0.4 X10*3/uL [facility] Basophils Absolute Auto 0.1 0.0 - 0.2 X10*3/uL [facility] NRBC Abs Auto 0.000 0.0 - 0.012 X10*3/uL [facility] Blood Venous blood specimen / Unknown 07/14/2024 1:49 PM EDT 07/14/2024 3:58 PM EDT us Renny Holloway MD LAB BLOOD ORDERABLES Final Resul t [facility] [address] [place] [phone] * CBC (07/14/2024 1:49 PM EDT) White Blood Count 9.0 4.8 - 10.8 X10*3/uL [facility] Red Blood Count 4.63 4.60 - 5.80 X10*6/uL [facility] Hemoglobin 14.3 14.0 - 18.0 g/dl [facility] Hematocrit 42.4 42.0 - 52.0 % [facility] Mean Corpuscular Volume 91.6 80.0 - 98.0 fL [facility] Mean Corpuscular Hemoglobin 30.9 27.0 - 33.0 pg [facility] Mean Corpuscular HGB Conc 33.7 31.0 - 36.0 g/dl [facility] Red Cell Distribution Width 13.9 11.0 - 16.0 % [facility] Platelet Count 258 160 - 400 X10*3/uL [facility] Mean Platelet Volume 9.5 9.4 - 12.4 fL [facility] NRBC Pct Auto 0.0 0.0 - 0.2 /100WBC [facility] NRBC Abs Auto 0.000 0.0 - 0.012 X10*3/uL [facility] 07/14/2024 1:49 PM EDT 07/14/2024 3:58 PM EDT us Generic External Data Provider LAB BLOOD ORDERAB LES Final Result Performing Organization Address City/[facility]/ZIP Co de Phone Number [facility] [address] [place] [phone] * Hepatic Function Panel (07/14/2024 1:49 PM EDT) Bilirubin, Direct 0.3 0.0 - 0.5 mg/dL [facility] Blood Venous blood specimen / Unknown 07/14/2024 1:49 PM EDT 07/14/2024 3:58 PM EDT us Renny Holloway MD LAB BLOOD ORDERABLES Final Resul t Performing Organization Address City/[facility]/ZIP Co de Phone Number [facility] [address] [place] [phone] * Cologuard?? colon cancer screening (12/30/2023 1:30 AM EDT) Cologuard Result Negative Negative 01/05/20 24 1:07 AM EDT [facility] (CLIA #:[id number]) Comment: NEGATIVE TEST RESULT. A negative Cologuard [...] cancer. ??Following a negative Cologuard result, the [place] [employer] and U.S. Multi-Society Task Force screening guidelines recommend a Cologuard re-screening interval of 3 years. References: [place] [employer] Guideline for Colorectal Cancer Screening: https://www.cancer.org/cancer/mnjhi-xsufag-ackjig/ckifdkacp-ftpkxwdhb-fsgcvxs/ac s-rec ommendations.html.; Honorio DK, Lita NEGRETE, Luba JamesK, Colorectal Cancer Screening: Recommendations for Physicians and Patients from the U.S. Multi-Society Task Force on Colorectal Cancer Screening , Am J Gastroenterology 2017; 112:7958-9336. TEST DESCRIPTION: Composite algorithmic analysis of stool [...] colonoscopy. (Tien Fleming, N Engl J Med 2014;370(14):9436-4409.) Cologuard may produce a false negative or false positive result (no colorectal cancer or precancerous polyp present at colonoscopy follow up). A negative Cologuard test result does not guarantee the absence of CRC or advanced adenoma (pre-cancer). The current Cologuard screening interval is every 3 years. ([place] [employer] and U.S. Multi-Society Task Force). Cologuard performance data in a 10,000 patient pivotal study using colonoscopy as the reference method can be accessed at the following location: www.eyetok.[employer]results. Additional description of the Cologuard test process, warnings and precautions can be found at [email or web address].com. Stool specimen (specimen) Rectal contents / Unknown 12/30/2023 1:30 AM EDT 01/01/2024 3:30 PM EDT us Nathalie Hsu MD LAB MOLECULAR DIAGNOSTICS ORDERABLES Final Result Performing Organization Address [facility] de Phone Number [facility] (CLIA #:[id number]) [place] [address], * Hepatitis C Antibody with Reflex to HCV, RNA, Quantitative, Real-Time PCR (08/10/2022 11:24 AM EDT) Hepatitis C Antibody NON-REACT KG NON-REACT KG [facility] [place] [facility] Index 0.13 <1.00 [facility] [place] [facility] Comment: HCV antibody was non-reactive. There is no laboratory evidence of HCV infection. In most cases, no further action is required. However, if recent HCV exposure is suspected, a test for HCV RNA (test code 29501) is suggested. For additional information please refer to http://education.BandPage.[employer]faq/JZJ25o6 (This link is being provided for informational/ educational purposes only.) Blood Venous blood specimen / Unknown 08/10/2022 11:24 AM EDT 08/10/2022 11:25 AM EDT Narrative [facility] - 08/16/2022 12:40 AM EDT FASTING:NO FASTING: NO us Nathalie Hsu MD LAB BLOOD ORDERABLES Final Result Performing Organization Address City/[facility] Co de Phone Number [facility] [address], [place] [address] [employer] [place] [employer] [address] [place] [address] * HIV-1/2 Antigen and Antibodies, Fourth Generation, with Reflexes (08/10/2022 11:24 AM EDT) HIV Antigen/Antibody, 4th Generation NON-REAC TIVE NON-REAC TIVE [facility] [place] [employer] Comment: HIV-1 antigen and HIV-1/HIV-2 antibodies were [...] ?? For additional information please refer to http://education.Ufree/faq/ZLA160 (This link is being provided for informational/ educational purposes only.) The performance of this assay has not been clinically validated in patients less than 2 years old. Blood Venous blood specimen / Unknown 08/10/2022 11:24 AM EDT 08/10/2022 11:25 AM EDT [facility] - 08/16/2022 12:40 AM EDT FASTING:NO FASTING: NO Nathalie Hsu MD LAB BLOOD ORDERABLES Final Result [facility] [address], [place] [address] [employer] [place] [employer] [address] [place] [address] * Lipid Panel, Standard (08/10/2022 11:24 AM EDT) Cholesterol, Total 161 <200 mg/dL [facility] [place] [employer] HDL Cholesterol 62 > OR = 40 mg/dL [facility] [place] [facility] Triglycerides 109 <150 mg/dL [facility] [place] [facility] LDL Cholesterol 80 mg/dL (calc) [facility] [place] [facility] Comment: Reference range: <100 Desirable range <100 mg/dL for primary prevention; ?? <70 mg/dL for patients with CHD or diabetic patients with > or = 2 CHD risk factors. LDL-C is now calculated using the Gallo calculation, which is a validated novel method providing better accuracy than the Friedewald equation in the estimation of LDL-C. Anthony SS et al. FLAKITA. 2013;310(19): 1078-6069 (http://education.[employer]/faq/NEL984) Chol/HDLC Ratio 2.6 <5.0 (calc) [facility] [place] [facility] Non-HDL Cholesterol 99 <130 mg/dL (calc) [facility] [place] [facility] Comment: For patients with diabetes plus 1 major ASCVD risk factor, treating to a non-HDL-C goal of <100 mg/dL (LDL-C of <70 mg/dL) is considered a therapeutic option. Blood Venous blood specimen / Unknown 08/10/2022 11:24 AM EDT 08/10/2022 11:25 AM EDT Narrative [facility] - 08/16/2022 12:40 AM EDT FASTING:NO FASTING: NO Nathalie Hsu MD LAB BLOOD ORDERABLES Final Result [facility] [address], [place] [address] [facility] [place] [employer] [address] [place] [address] * Hm Colonoscopy (03/05/2012) Colonoscopy Dr. Zhang Historical Provider HEALTH MAINTENANCE Final Result from Last 3 Months or Most Recently Relevant to Health Maintenance [facility] [place] AD[place] Advance Directives Documents on File Type Date Recorded Patient Lead Informatica Developer Expl anation Advance Directives and Living Will 06/10/2023 1:14 PM Health Care Proxy Care Teams Claim Examiner Relationship Specialty Start Date End Date Nathalie Hsu MD [address] [place] [address] PCP - General Family Medicine 09/27/13 Shannan Barrow, RN [address] [place] [address] Registered Nurse 02/29/24 Lisbeth Johnson [address] [place] [address] [address] [place] [address] Gastroenterology 03/15/24 Tonya Poole Training AdministratorRack Puller 01/19/24 Raman ([facility]) Registered Nurse 02/29/24 Marcos Verdin MD [place] [facility] [address] [place] [address] Cardiology 03/10/24 Omid Vincent Psychiatry 03/15/24
--- OUTSIDE RECORDS SUMMARY | 2024-08-18 09:55 | XMS_ITS | Encounter Summary ---
Author Organization [employer] Address [address] 7t [place] [address] Care Team Providers Care Associate Field Service Engineer Name Role Phone Nathalie Hsu MD Primary Care Provider +1- [phone] Shannan Barrow RN Unavailable [phone] Lisbeth Johnson Unavailable Reason for Visit * Reason Onset Date Comments Hospital Follow-up 03/07/2024 Medication Question 03/07/2024 Encounter Details Date Type Department Care Team (Late st Contact Info) Description 03/07/2024 Telephone [facility] MEDICINE [address] [place], [place] [phone] Nathalie Hsu MD 230 [place], [place] [phone] Hospital Follow-up; Medication Question Social History Tobacco [...] stating wrong number and he doesn't speak malaysian (was not the pt). Telephone call placed [...] - 03/07/2024 2:00 PM EST Tc from [facility] with [facility] Newspaper Press Operator Apprentice requesting a HDF appt. Pt is concerned about medication melatonin 5 MG tablet he still has trouble sleeping and doesn't want to stop taking. Hospital: [facility] Date of admission: 02/11 Discharge date: 03/01 Diagnosed: Liver Issues Contact pt to schedule at [phone] *Send message to [place] Clinical Care Coordinators documented in this encounter Plan of Treatment Upcoming Encounters Date Type Department Care Team (Late st Contact Info) Description 09/19/2024 10:00 AM EDT Office Visit [facility] ADULT DENTAL [address] [place] [address] Panchito Lamas, DDS [address] [place] [address] 11/09/2024 1:00 PM EDT Office Visit [facility] OPTOMETRY [address] [place] [address] Seth, Zabrina, OD 230 [place] [address] 01/08/2025 10:00 AM EDT Office Visit [facility] ADULT DENTAL [address] [place] [address] Ulises, Chiquita [address] [place] [address] documented as of this encounter Visit Diagnoses Not on filedocumented in this encounter Additional Health Concerns Assessment Noted Time PHQ-9 Depression Total Score: 0 06/09/19 24 9:13 AM EST documented as of this encounter Care Teams Associate Field Service Engineer Relationship Specialty Start Date End Date Nathalie Hsu MD [address] [place] [address] PCP - General Family Medicine 09/27/13 Shannan Barrow, RN [address] [place] [address] Registered Nurse 02/29/24 Lisbeth Johnson [address] [place] [address] Drive 3rd [place] [address] Gastroenterology 03/15/24 Tonya Poole Government GuardHeader Boss 01/19/24 Raman (A [facility]) Registered Nurse 02/29/24 Marcos Verdin MD [place] [facility] [address] [place] [address] Cardiology 03/10/24 Omid Vincent Psychiatry 03/15/24 documented as of this encounter
--- OUTSIDE RECORDS SUMMARY | 2024-08-18 09:55 | XMS_ITS | Encounter Summary ---
Author Organization [employer] Address [address] 7t [place] [address] Care Team Providers Care Transmission Maintenance Supervisor Name Role Phone Nathalie Hsu MD Primary Care Provider [phone]- [phone] Shannan Barrow RN Unavailable [phone] Lisbeth Johnson Unavailable Reason for Visit * Reason Onset Date Comments Med Refill 07/01/2023 Encounter Details Date Type Department Care Team (Late st Contact Info) Description 07/01/2023 Telephone [facility] MEDICINE [address] [place], [place] [phone] Nathalie Hsu MD 230 [place], [place] [phone] Med Refill Social History Tobacco Use Types [...] the past 12 months, has t he [employer], [employer], oil or water [employer] threatened to shut off services in your [...] 9:11 AM EDT Medication was sent to [facility] on 03/03/23 90 day supply with 1 refill. * Telephone Encounter - Amie Ramsey - 07/01/2023 9:06 AM EDT TC from pt requesting medication refill. Medications needing refill : pantoprazole (ProtoNix) 40 MG EC tablet To be sent to: [facility] - [place], [place] - 230 [facility] 230 [facility] [id number] documented in this encounter Plan of Treatment Upcoming Encounters Date Type Department Care Team (Late st Contact Info) Description 09/19/2024 10:00 AM EDT Office Visit [facility] ADULT DENTAL [address] [place] [address] Panchito Lamas DDS [address] [place] [address] 11/09/2024 1:00 PM EDT Office Visit [facility] OPTOMETRY [address] [place] [address] SethZabrina funes, OD 230 [place] [address] 01/08/2025 10:00 AM EDT Office Visit [facility] ADULT DENTAL [address] [place] [address] Ulises, Chiquita [address] [place] [address] documented as of this encounter Visit Diagnoses Not on filedocumented in this encounter Additional Health Concerns Assessment Noted Time PHQ-9 Depression Total Score: 0 06/09/19 9:13 AM EST documented as of this encounter Care Teams Transmission Maintenance Supervisor Relationship Specialty Start Date End Date Nathalie Hsu MD 230 [place] [address] PCP - General Family Medicine 09/27/13 Shannan Barrow, KHAI [address] [place] [address] Registered Nurse 02/29/24 Lisbeth Johnson [address] [place] [address] 3[address] [place] [address] Gastroenterology 03/15/24 Tonya Poole Die Maker TrimManager Night 01/19/24 Raman ([facility]) Registered Nurse 02/29/24 Marcos Verdin MD [place] [facility] [address] [place] [address] Cardiology 03/10/24 Omid Vincent Psychiatry 03/15/24 documented as of this encounter
--- OUTSIDE RECORDS SUMMARY | 2024-08-18 09:55 | XMS_ITS | Encounter Summary ---
Author Organization [employer] Address [address] 7t [place] [address] Care Team Providers Care Coffee Supervisor Name Role Phone Nathalie Hsu MD Primary Care Provider [phone]- [phone] Shannan Barrow RN Unavailable [phone] Lisbeth Johnson Unavailable Reason for Visit * Reason Comments Med Refill Encounter Details Date Type Department Care Team (Late st Contact Info) Description 11/01/2023 Refill [facility] [address] [place] [address] Nathalie Hsu MD 230 [place] [address] Mild intermittent asthma, unspecified whether complicated Social [...] the past 12 months, has t he Front Desk [employer], gas, oil or water [employer] threatened to shut off services in your [...] Description 09/19/2024 10:00 AM EDT Office Visit [facility] ADULT DENTAL 230 [place] [address] Panchito Lamas DDS 230 [place] [address] 11/09/2024 1:00 PM EDT Office Visit [facility] OPTOMETRY [address] [place] [address] Seth, Zabrina, OD 230 [place] [address] 01/08/2025 10:00 AM EDT Office Visit [facility] ADULT DENTAL [address] [place] [address] Ulises, Chiquita [address] [place] [address] documented as of this encounter Visit Diagnoses Diagnosis Mild intermittent asthma, unspecified whether complicated documented in this encounter Additional Health Concerns Assessment Noted Time PHQ-9 Depression Total Score: 0 06/09/19 24 9:13 AM EST documented as of this encounter Care Teams Coffee Supervisor Relationship Specialty Start Date End Date Nathalie Hsu MD 230 [place] [address] PCP - General Family Medicine 09/27/13 Shannan Barrow, RN 230 [place] [address] Registered Nurse 02/29/24 Lisbeth Johnson [address] [place] [address] 3rd [place] [address] Gastroenterology 03/15/24 Tonya Poole Jack SpinnerGas Engine Performance Engineer 01/19/24 Raman (A [facility]) Registered Nurse 02/29/24 Marcos Verdin MD [place] [facility] [address] [place] [address] Cardiology 03/10/24 Omid Vincent Psychiatry 03/15/24 documented as of this encounter
--- OUTSIDE RECORDS SUMMARY | 2024-08-18 09:55 | XMS_ITS | Encounter Summary ---
Author Organization [employer] Address [address] [address] [address] 7t [place] [address] Care Team Providers Care Steam Fitter Name Role Phone Nathalie Hsu MD Primary Care Provider [phone]- [phone] Shannan Barrow RN Unavailable [phone] Lisbeth Johnson Unavailable Reason for Visit * Reason Onset Date Comments PT-1 05/26/2024 Encounter Details Date Type Department Care Team (Late st Contact Info) Description 05/26/2024 Telephone [facility] MEDICINE 230 [place], [place] [phone] Nathalie Hsu MD 230 [place], [place] [phone] PT-1 Social History Tobacco Use Types Packs/Day [...] Y/N: Yes Provider name or facility name: [address] [address] Escort needed: Y/N: No Do you have a wheelchair: Y/N: No If yes- Manual or electric: N/A Visits: (amount of visits) ( x monthly, weekly, daily) 2 times per month. documented in this encounter Plan of Treatment Upcoming Encounters Date Type Department Care Team (Late st Contact Info) Description 09/19/2024 10:00 AM EDT Office Visit [facility] ADULT DENTAL [address] [place] [address] Panchito Lamas DDS 230 [place] [address] 11/09/2024 1:00 PM EDT Office Visit [facility] OPTOMETRY [address] [place] [address] SethZabrina funes, OD 230 [place] [address] 01/08/2025 10:00 AM EDT Office Visit [facility] ADULT DENTAL 230 [place] [address] Ulises, Chiquita 230 [place] [address] documented as of this encounter Visit Diagnoses Not on filedocumented in this encounter Additional Health Concerns Assessment Noted Time PHQ-9 Depression Total Score: 0 06/09/19 9:13 AM EST documented as of this encounter Care Teams Steam Fitter Relationship Specialty Start Date End Date Nathalie Hsu MD 230 [place] [address] PCP - General Family Medicine 09/27/13 Shannan Barrow, KHAI [address] [place] [address] Registered Nurse 02/29/24 Lisbeth Johnson [address] [place] [address] 3rd [place] [address] Gastroenterology 03/15/24 Tonya Poole Musical Instruments AssemblerBrazer Helper Induction 01/19/24 Raman (A [facility]) Registered Nurse 02/29/24 Marcos Verdin MD [place] [facility] [address] [place] [address] Cardiology 03/10/24 Omid Vincent Psychiatry 03/15/24 documented as of this encounter
--- OUTSIDE RECORDS SUMMARY | 2024-08-18 09:55 | XMS_ITS | Encounter Summary ---
Author Organization [employer] Address [address] [facility] 7t [place] [address] Care Team Providers Care Insurance Sales Executive Name Role Phone Nathalie Hsu MD Primary Care Provider [phone]- [phone] Shannan Barrow RN Unavailable [phone] Lisbeth Johnson Unavailable Reason for Visit * Reason Comments Med Refill Encounter Details Date Type Department Care Team (Late st Contact Info) Description 02/28/2023 Refill [facility] 230 [place], [place] 1979240 Nathalie Hsu MD 230 [place], [place] [phone] Social History Tobacco Use Types Packs/Day Years [...] Description 09/19/2024 10:00 AM EDT Office Visit [facility] ADULT DENTAL 230 [place] [address] Panchito Lamas DDS 230 [place] [address] 11/09/2024 1:00 PM EDT Office Visit [facility] OPTOMETRY [address] [place] [address] Seth, Zabrina, OD 230 [place] [address] 01/08/2025 10:00 AM EDT Office Visit [facility] ADULT DENTAL 230 [place] [address] Ulises, Chiquita 230 [place] [address] documented as of this encounter Visit Diagnoses Not on filedocumented in this encounter Additional Health Concerns Assessment Noted Time PHQ-9 Depression Total Score: 6 05/08/19 23 10:33 AM EST documented as of this encounter Care Teams Insurance Sales Executive Relationship Specialty Start Date End Date Nathalie Hsu MD [address] [place] [address] PCP - General Family Medicine 09/27/13 Shannan Barrow RN [address] [place] [address] Registered Nurse 02/29/24 Lisbeth Johnson [address] [place] [address] 3rd [place] [address] Gastroenterology 03/15/24 Tonya Poole Movie CriticFood Service Counter Clerk 01/19/24 Raman (A [facility]) Registered Nurse 02/29/24 Marcos Verdin MD [place] [facility] [address] [place] [address] Cardiology 03/10/24 Omid Vincent Psychiatry 03/15/24 documented as of this encounter
--- OUTSIDE RECORDS SUMMARY | 2024-08-18 09:55 | XMS_ITS | Encounter Summary ---
Author Organization [employer] Address [address] 7t [place] [address] Care Team Providers Care Deputy Clerk Name Role Phone Ivins, Nathalie ABDI Primary Care Provider [phone]- [phone] Shannan Barrow RN Unavailable [phone] Lisbeth Johnson Unavailable Reason for Visit * Reason Comments Med Refill Encounter Details Date Type Department Care Team (Late st Contact Info) Description 07/04/2024 Refill [facility] ADULT DENTAL 230 [place] [address] Panchito Lamas DDS 230 [place] [address] Severe dental caries; Dental root caries; Advanced [...] Description 09/19/2024 10:00 AM EDT Office Visit [facility] ADULT DENTAL 230 [place] [address] Panchito Lamas DDS 230 [place] [address] 11/09/2024 1:00 PM EDT Office Visit [facility] OPTOMETRY [address] [place] [address] Zabrina Ann, OD 230 [place] [address] 01/08/2025 10:00 AM EDT Office Visit [facility] ADULT DENTAL 230 [place] [address] Chiquita Montgomery 230 [place] [address] documented as of this encounter Visit Diagnoses Diagnosis Severe dental caries Dental root caries Advanced periodontitis Excessive attrition of teeth, limited to enamel Missing teeth, acquired Dental calculus Accretions on teeth documented in this encounter Additional Health Concerns Assessment Noted Time PHQ-9 Depression Total Score: 0 06/09/19 24 9:13 AM EST documented as of this encounter Care Teams Deputy Clerk Relationship Specialty Start Date End Date Nathalie Hsu MD [address] [place] [address] PCP - General Family Medicine 09/27/13 Shannan Barrow, KHAI [address] [place] [address] Registered Nurse 02/29/24 Lisbeth Johnson [address] [place] [address] Drive 3rd [place] [address] Gastroenterology 03/15/24 Tonya Poole It Program ManagerBook Sewing Machine Operator 01/19/24 Raman (A [facility]) Registered Nurse 02/29/24 Marcos Verdin MD [place] [facility] [address] [place] [address] Cardiology 03/10/24 Omid Vincent Psychiatry 03/15/24 documented as of this encounter
--- OUTSIDE RECORDS SUMMARY | 2024-08-18 09:55 | XMS_ITS | Encounter Summary ---
Author Organization [employer] Address [address] [address] 7t [place] [address] Care Team Providers Care Photolith Operator Name Role Phone Nathalie Hsu MD Primary Care Provider [phone]- [phone] Shannan Barrow RN Unavailable Lisbeth Johnson Unavailable Reason for Visit * Reason Onset Date Comments Critical Lab 08/15/2024 Encounter Details Date Type Department Care Team (Late st Contact Info) Description 08/15/2024 Telephone [facility] PEDIATRICS 230 [place] [address] Nathalie Hsu MD 230 [place], [place] [phone] Critical Lab Social History Tobacco Use Types Packs/Day Years [...] Telephone Encounter - Shannan Barrow RN - 08/15/2024 11:30 AM EDT S: Pt is due for PT/INR yesterday due to hx of DVT's. Pt's target INR is 2.5- 3.5. This RN spoke with KAVIN Duff who denies any new medications or changes in diet. Pt has been consuming EtOH. Pt still with left side bruising but refuses to let [facility]NA look at it because he doesn't want her to tell us. VNA continues to encourage abstinence in alcoholic beverages which she reports pt is annoyed with. Pt has been compliant with INR draws. No showed to appt for AUS last week. O: INR today is: 3.2 Current plan: 2.5mg , , Sa/ 5mg the rest of the week A: Hx of DVT Risk for blood clot due to sub therapeutic INR Hx of afib Hx of prosthetic heart valve P: Advised to continue same dose and recheck INR 5/20/25. Please try to abstain from alcohol use. VNA aware of dosing and draw date. Shannan Barrow RN * Telephone Encounter - Yesica Zamora RN - 08/15/2024 10:32 AM EDT TC incoming from [facility] to report a critical INR. INR 3.2 Nurse to route to PCP and team nurses to advise. Lesly Farley RN made aware. documented in this encounter Plan of Treatment Upcoming Encounters Date Type Department Care Team (Late st Contact Info) Description 09/19/2024 10:00 AM EDT Office Visit [facility] ADULT DENTAL [address] [place] [address] Panchito Lamas, NETTAS 230 [place] [address] 11/09/2024 1:00 PM EDT Office Visit [facility] OPTOMETRY [address] [place] [address] Seth, Zabrina, OD 230 [place] [address] 01/08/2025 10:00 AM EDT Office Visit [facility] ADULT DENTAL [address] [place] [address] Ulises, Chiquita [address] [place] [address] documented as of this encounter Procedures Procedure Name Priority Date/Time Associated Diagnosis Comments PROTHROMBIN TIME-INR Routine 08/15/2024 documented in this encounter Results * Prothrombin Time-INR (08/15/2024) INR 3.20 2.50 - 3.50 EXTERNAL LAB [...] documented as of this encounter Care Teams Photolith Operator Relationship Specialty Start Date End Date Nathalie Hsu MD 230 [place] [address] PCP - General Family Medicine 09/27/13 Shannan Barrow, RN 230 [place] [address] Registered Nurse 02/29/24 Lisbeth Johnson [address] [place] [address] 3rd [place] [address] Gastroenterology 03/15/24 Tonya Poole Qa SpecialistMedical Chemist 01/19/24 Raman ([facility]) Registered Nurse 02/29/24 Marcos Verdin MD [place] [facility] [address] [place] [address] Cardiology 03/10/24 Omid Vincent Psychiatry 03/15/24 documented as of this encounter
--- OUTSIDE RECORDS SUMMARY | 2024-08-18 09:55 | XMS_ITS | Encounter Summary ---
Author Organization [employer] Address [address] 7t [place] [address] Care Team Providers Care Director Volunteer Services Name Role Phone Nathalie Hsu MD Primary Care Provider [phone]- [phone] Shannan Barrow RN Unavailable [phone] Lisbeth Johnson Unavailable Reason for Visit * Reason Comments Med Refill Encounter Details Date Type Department Care Team (Late st Contact Info) Description 03/30/2024 Refill [facility] MEDICINE 230 [place] [address] Nathalie sHu MD 230 [place] [address] History of alcohol abuse; Hypomagnesemia; Mild intermittent [...] Description 09/19/2024 10:00 AM EDT Office Visit [facility] ADULT DENTAL [address] [place] [address] Panchito Lamas DDS [address] [place] [address] 11/09/2024 1:00 PM EDT Office Visit [facility] OPTOMETRY [address] [place] [address] Zabrina Ann, OD 230 [place] [address] 01/08/2025 10:00 AM EDT Office Visit [facility] ADULT DENTAL [address] [place] [address] Chiquita Montgomery [address] [place] [address] documented as of this encounter Visit Diagnoses Diagnosis History of alcohol abuse Nondependent alcohol abuse, in remission Hypomagnesemia Disorders of magnesium metabolism Mild intermittent asthma, unspecified whether complicated documented in this encounter Additional Health Concerns Assessment Noted Time PHQ-9 Depression Total Score: 0 06/09/19 24 9:13 AM EST documented as of this encounter Care Teams Director Volunteer Services Relationship Specialty Start Date End Date Nathalie Hsu MD 230 [place] [address] PCP - General Family Medicine 09/27/13 Shannan Barrow, KHAI [address] [place] [address] Registered Nurse 02/29/24 Lisbeth Johnson [address] [place] [address] 3rd [place] [address] Gastroenterology 03/15/24 Tonya Poole Car SalesmanDirector Money 01/19/24 Raman ([facility]) Registered Nurse 02/29/24 Marcos Verdin MD [place] [facility] [address] [place] [address] Cardiology 03/10/24 Omid Vincent Psychiatry 03/15/24 documented as of this encounter
--- OUTSIDE RECORDS SUMMARY | 2024-08-18 09:55 | XMS_ITS | Encounter Summary ---
Author Organization [employer] Address [address] 7t [place] [address] Care Team Providers Care Inshore Undersea Warfare Officer Name Role Phone Nathalie Hsu MD Primary Care Provider [phone]- [phone] Shannan Barrow RN Unavailable [phone] Lisbeth Johnson Unavailable Reason for Visit * Reason Onset Date Comments Med Refill 03/09/2024 Encounter Details Date Type Department Care Team (Late st Contact Info) Description 03/09/2024 Telephone [facility] MEDICINE 230 [place], [place] [phone] Nathalie Hsu MD 230 [place], [place] [phone] Med Refill Social History Tobacco Use Types [...] 9:13 AM EST Medication was sent to [facility] on 12/13/23 #60 with 3 refills. * Telephone Encounter - Alf Avilez - 03/09/2024 9:07 AM EST TC from pt requesting medication refill. Medications needing refill : melatonin 5 MG tablet To be sent to: [facility] documented in this encounter Plan of Treatment Upcoming Encounters Date Type Department Care Team (Late st Contact Info) Description 09/19/2024 10:00 AM EDT Office Visit [facility] ADULT DENTAL [address] [place] [address] Panchito Lamas, NETTAS 230 [place] [address] 11/09/2024 1:00 PM EDT Office Visit [facility] OPTOMETRY [address] [place] [address] Seth, Zabrina, OD 230 [place] [address] 01/08/2025 10:00 AM EDT Office Visit [facility] ADULT DENTAL 230 [place] [address] Ulises Chiquita 230 [place] [address] documented as of this encounter Visit Diagnoses Not on filedocumented in this encounter Additional Health Concerns Assessment Noted Time PHQ-9 Depression Total Score: 0 06/09/19 9:13 AM EST documented as of this encounter Care Teams Inshore Undersea Warfare Officer Relationship Specialty Start Date End Date Nathalie Hsu MD 230 [place] [address] PCP - General Family Medicine 09/27/13 Shannan Barrow, RN [address] [place] [address] Registered Nurse 02/29/24 Lisbeth Johnson [address] [place] [address] Drive 3rd [place] [address] Gastroenterology 03/15/24 Tonya Poole Director ConsumerSocial Media Content Specialist 01/19/24 Raman ([facility]) Registered Nurse 02/29/24 Marcos Verdin MD [place] [facility] [address] [place] [address] Cardiology 03/10/24 Omid Vincent Psychiatry 03/15/24 documented as of this encounter
--- OUTSIDE RECORDS SUMMARY | 2024-08-18 09:55 | XMS_ITS | Encounter Summary ---
Author Organization [employer] Address [address] [facility] [address] 7t [place] [address] Care Team Providers Care Senior Risk Analyst Name Role Phone Nathalie Hsu MD Primary Care Provider +1- [phone] Shannan Barrow RN Unavailable [phone] Lisbeth Johnson Unavailable Reason for Visit * Reason Comments Med Refill Encounter Details Date Type Department Care Team (Late st Contact Info) Description 08/14/2024 Refill [facility] MEDICINE [address] [place] [address] Nathalie Hsu MD 230 [place], [place] [phone] Alcoholic liver disease (CMS/HCC) Social History Tobacco [...] Description 09/19/2024 10:00 AM EDT Office Visit [facility] ADULT DENTAL [address] [place] [address] Panchito Lamas, NETTAS 230 [place] [address] 11/09/2024 1:00 PM EDT Office Visit [facility] OPTOMETRY [address] [place] [address] Seth, Zabrina, OD 230 [place] [address] 01/08/2025 10:00 AM EDT Office Visit [facility] ADULT DENTAL [address] [place] [address] Chiquita Montgomery 230 [place] [address] documented as of this encounter Visit Diagnoses Diagnosis Alcoholic liver disease (CMS/HCC) Unspecified alcoholic liver damage documented in this encounter Additional Health Concerns Assessment Noted Time PHQ-9 Depression Total Score: 0 06/09/19 24 9:13 AM EST documented as of this encounter Care Teams Senior Risk Analyst Relationship Specialty Start Date End Date Nathalie Hsu MD 230 [place] [address] PCP - General Family Medicine 09/27/13 Shannan Barrow, RN 230 [place] [address] Registered Nurse 02/29/24 Lisbeth Johnson [address] [place] [address] 3rd [place] [address] Gastroenterology 03/15/24 Tonya Poole Fire Chief'S AideDinkey Operator 01/19/24 Raman (A S) Registered Nurse 02/29/24 Marcos Verdin MD [place] [facility] [address] [place] [address] Cardiology 03/10/24 Omid Vincent Psychiatry 03/15/24 documented as of this encounter
--- OUTSIDE RECORDS SUMMARY | 2024-08-18 09:55 | XMS_ITS | Encounter Summary ---
Author Organization [employer] Address 75 [facility] 7t [place] [address] Care Team Providers Care Sheep Clipper Name Role Phone [place], Nathalie ADBI Primary Care Provider +- [phone] Shannan Barrow RN Unavailable [phone] Lisbeth Johnson Unavailable Encounter Details Date Type Department Care Team (Late st Contact Info) Description 11/27/2022 Orders Only [facility] MEDICINE 230 [place] [address] Jose Dockery 230 [place] [address] Social History Tobacco Use Types Packs/Day Years [...] Description 09/19/2024 10:00 AM EDT Office Visit [facility] ADULT DENTAL 230 [place] [address] Panchito Lamas DDS 230 [place] [address] 11/09/2024 1:00 PM EDT Office Visit [facility] OPTOMETRY [address] [place] [address] Zabrina Ann OD 230 [place] [address] 01/08/2025 10:00 AM EDT Office Visit [facility] ADULT DENTAL 230 [place] [address] Ulises, Chiquita 230 [place] [address] documented as of this encounter Visit Diagnoses Not on filedocumented in this encounter Additional Health Concerns Assessment Noted Time PHQ-9 Depression Total Score: 6 05/08/19 23 10:33 AM EST documented as of this encounter Care Teams Sheep Clipper Relationship Specialty Start Date End Date Nathalie Hsu MD 230 [place] [address] PCP - General Family Medicine 09/27/13 Shannan Barrow, KHAI 230 [place] [address] Registered Nurse 02/29/24 Lisbeth Johnson [address] [place] [address] 3rd [place] [address] Gastroenterology 03/15/24 Tonya Poole Time Study StatisticianWax Bleacher 01/19/24 Raman (A [facility]) Registered Nurse 02/29/24 MD [facility] [place] [facility] [address] [place] [address] Cardiology 03/10/24 Omid Vincent Psychiatry 03/15/24 documented as of this encounter
--- OUTSIDE RECORDS SUMMARY | 2024-08-18 09:55 | XMS_ITS | Encounter Summary ---
Author Organization [employer] Address [address] [facility] [address] 7t [place] [address] Care Team Providers Care Heel Lift Gouger Name Role Phone Nathalie Hsu MD Primary Care Provider +1- [phone] Shannan Barrow RN Unavailable [phone] Lisbeth Johnson Unavailable Reason for Visit * Reason Onset Date Comments Results 01/12/2023 INR Encounter Details Date Type Department Care Team (Late st Contact Info) Description 01/12/2023 Telephone [facility] MEDICINE 230 [place], [place] [phone] Nathalie Hsu MD 230 [place], [place] [phone] Results (INR) Social History Tobacco Use Types [...] 12:36 PM EDT Tc from [facility] at [facility] reporting INR results. Please call [phone] documented in this encounter Plan of Treatment Upcoming Encounters Date Type Department Care Team (Late st Contact Info) Description 09/19/2024 10:00 AM EDT Office Visit [facility] ADULT DENTAL 230 [place] [address] Panchito Lamas DDS 230 [place] [address] 11/09/2024 1:00 PM EDT Office Visit [facility] OPTOMETRY [address] [place] [address] Seth, Zabrina, OD 230 [place] [address] 01/08/2025 10:00 AM EDT Office Visit [facility] ADULT DENTAL 230 [place] [address] Ulises, Chiquita 230 [place] [address] documented as of this encounter Visit Diagnoses Not on filedocumented in this encounter Additional Health Concerns Assessment Noted Time PHQ-9 Depression Total Score: 6 05/08/19 23 10:33 AM EST documented as of this encounter Care Teams Heel Lift Gouger Relationship Specialty Start Date End Date Knott, MD Nathalie 230 [place] [address] PCP - General Family Medicine 09/27/13 Shannan Barrow, RN 230 [place] [address] Registered Nurse 02/29/24 Lisbeth Johnson [address] [place] [address] 3rd [place] [address] Gastroenterology 03/15/24 Tonya Poole Contact PersonLock And Dam Repairer 01/19/24 Raman (A [facility]) Registered Nurse 02/29/24 Marcos Verdin MD [place] [facility] [address] [place] [address] Cardiology 03/10/24 Omid Vincent Psychiatry 03/15/24 documented as of this encounter
--- OUTSIDE RECORDS SUMMARY | 2024-08-18 09:55 | XMS_ITS | Encounter Summary ---
Author Organization [employer] Address [address] [facility] [address] 7t [place] [address] Care Team Providers Care Chief Minister Name Role Phone Nathalie Hsu MD Primary Care Provider +1- [phone] Shannan Barrow RN Unavailable [phone] Lisbeth Johnson Unavailable Reason for Visit * Reason Onset Date Comments PT1 08/02/2024 Encounter Details Date Type Department Care Team (Late st Contact Info) Description 08/02/2024 Telephone [facility] MEDICINE 230 [place], [place] [phone] Nathalie Hsu MD 230 [place], [place] [phone] PT1 Social History Tobacco Use Types Packs/Day [...] Y/N: Yes Provider name or facility name: [facility] Facility Address: [address] [place] [address] Escort needed: Y/N: No Do you have a wheelchair: Y/N: No If yes- Manual or electric: n/a Visits: 2 x a month documented in this encounter Plan of Treatment Upcoming Encounters Date Type Department Care Team ([facility] Contact Info) Description 09/19/2024 10:00 AM EDT Office Visit [facility] ADULT DENTAL [address] [place] [address] Panchito Lamas DDS 230 [place] [address] 11/09/2024 1:00 PM EDT Office Visit [facility] OPTOMETRY [address] [place] [address] Zabrina Ann, OD 230 [place] [address] 01/08/2025 10:00 AM EDT Office Visit [facility] ADULT DENTAL 230 [place] [address] Ulises, Chiquita 230 [place] [address] documented as of this encounter Visit Diagnoses Not on filedocumented in this encounter Additional Health Concerns Assessment Noted Time PHQ-9 Depression Total Score: 0 06/09/19 9:13 AM EST documented as of this encounter Care Teams Chief Minister Relationship Specialty Start Date End Date Nathalie Hsu MD 230 [place] [address] PCP - General Family Medicine 09/27/13 Shannan Barrow, KHAI 230 [place] [address] Registered Nurse 02/29/24 Lisbeth Johnson [address] [place] [address] 3rd [place] [address] Gastroenterology 03/15/24 Tonya Poole Ophthalmic NurseDetail Assembler 01/19/24 Raman ([facility]) Registered Nurse 02/29/24 Marcos Verdin MD [place] [facility] [address] [place] [address] Cardiology 03/10/24 Omid Vincent Psychiatry 03/15/24 documented as of this encounter
--- OUTSIDE RECORDS SUMMARY | 2024-08-18 09:55 | XMS_ITS | Encounter Summary ---
Author Organization [employer] Address [address] [facility] [address] 7t [place] [address] Care Team Providers Care Stock Room Manager Name Role Phone Nathalie Hsu MD Primary Care Provider [phone]- [phone] Shannan Barrow RN Unavailable [phone] Lisbeth Johnson Unavailable Reason for Visit * Reason Comments Med Refill Encounter Details Date Type Department Care Team (Late st Contact Info) Description 02/12/2023 Refill [facility] MEDICINE 230 [place] [address] Nathalie Hsu MD 230 [place], [place] [phone] Pain Social History Tobacco Use Types Packs/Day [...] Description 09/19/2024 10:00 AM EDT Office Visit [facility] ADULT DENTAL 230 [place] [address] Panchito Lamas DDS 230 [place] [address] 11/09/2024 1:00 PM EDT Office Visit [facility] OPTOMETRY [address] [place] [address] Seth, Zabrina, OD 230 [place] [address] 01/08/2025 10:00 AM EDT Office Visit [facility] ADULT DENTAL 230 [place] [address] Ulises, Chiquita 230 [place] [address] documented as of this encounter Visit Diagnoses Diagnosis Pain Generalized pain documented in this encounter Additional Health Concerns Assessment Noted Time PHQ-9 Depression Total Score: 6 05/08/19 23 10:33 AM EST documented as of this encounter Care Teams Stock Room Manager Relationship Specialty Start Date End Date Nathalie Hsu MD [address] [place] [address] PCP - General Family Medicine 09/27/13 Shannan Barrow RN [address] [place] [address] Registered Nurse 02/29/24 Lisbeth Johnson [address] [place] [address] 3rd [place] [address] Gastroenterology 03/15/24 Tonya Poole Stucco MasonSpinner Tender 01/19/24 Raman (A [facility]) Registered Nurse 02/29/24 Marcos Verdin MD [place] [facility] [address] [place] [address] Cardiology 03/10/24 Omid Vincent Psychiatry 03/15/24 documented as of this encounter
--- OUTSIDE RECORDS SUMMARY | 2024-08-18 09:55 | XMS_ITS | Encounter Summary ---
Author Organization [employer] Address [address] [facility] [address] 7t [place] [address] Care Team Providers Care Solutions Architect Consultant Name Role Phone Nathalie Hsu MD Primary Care Provider +1- [phone] Shannan Barrow RN Unavailable [phone] Lisbeth Johnson Unavailable Encounter Details Date Type Department Care Team (Late st Contact Info) Description 08/11/2023 Telephone [facility] MEDICINE 230 [place], [place] [phone] Nathalie Hsu MD 230 [place], [place] [phone] Social History Tobacco Use Types Packs/Day Years [...] Description 09/19/2024 10:00 AM EDT Office Visit [facility] ADULT DENTAL 230 [place] [address] Panchito Lamas, DDS 230 [place] [address] 11/09/2024 1:00 PM EDT Office Visit [facility] OPTOMETRY [address] [place] [address] Seth, Zabrina, OD 230 [place] [address] 01/08/2025 10:00 AM EDT Office Visit [facility] ADULT DENTAL 230 [place] [address] Ulises, Chiquita 230 [place] [address] documented as of this encounter Visit Diagnoses Not on filedocumented in this encounter Additional Health Concerns Assessment Noted Time PHQ-9 Depression Total Score: 0 06/09/19 24 9:13 AM EST documented as of this encounter Care Teams Solutions Architect Consultant Relationship Specialty Start Date End Date Nathalie Hsu MD 230 [place] [address] PCP - General Family Medicine 09/27/13 Shannan Barrow, RN 230 [place] [address] Registered Nurse 02/29/[address] 3rd [place] [address] Gastroenterology 03/15/24 Tonya Poole Powerhouse MechanicSecurity Advisor 01/19/24 Raman (A S) Registered Nurse 02/29/24 Marcos Verdin MD [place] [facility] [address] [place] [address] Cardiology 03/10/24 Omid Vincent Psychiatry 03/15/24 documented as of this encounter
--- OUTSIDE RECORDS SUMMARY | 2024-08-18 09:55 | XMS_ITS | Encounter Summary ---
Author Organization [employer] Address [address] [facility] [address] 7t [place] [address] Care Team Providers Care Sales Service Executive Name Role Phone Nathalie Hsu MD Primary Care Provider [phone]- [phone] Shannan Barrow RN Unavailable [phone] Lisbeth Johnson Unavailable Encounter Details Date Type Department Care Team (Late st Contact Info) Description 05/12/2023 Orders Only [facility] MEDICINE 230 [place], [place] [phone] Nathalie Hsu MD 230 [place], [place] [phone] Social History Tobacco Use Types Packs/Day Years [...] Description 09/19/2024 10:00 AM EDT Office Visit [facility] ADULT DENTAL 230 [place] [address] Panchito Lamas, DDS 230 [place] [address] 11/09/2024 1:00 PM EDT Office Visit [facility] OPTOMETRY [address] [place] [address] Seth, Zabrina, OD 230 [place] [address] 01/08/2025 10:00 AM EDT Office Visit [facility] ADULT DENTAL 230 [place] [address] Ulises, Chiquita 230 [place] [address] documented as of this encounter Visit Diagnoses Not on filedocumented in this encounter Additional Health Concerns Assessment Noted Time PHQ-9 Depression Total Score: 6 05/08/19 23 10:33 AM EST documented as of this encounter Care Teams Sales Service Executive Relationship Specialty Start Date End Date Nathalie Hsu MD [address] [place] [address] PCP - General Family Medicine 09/27/13 Shannan Barrow RN [address] [place] [address] [place] [address] Registered Nurse 02/29/24 Lisbeth Johnson [address] 3rd [place] [address] Gastroenterology 03/15/24 Tonya Poole Public Message Service SupervisorMedia Intern 01/19/24 Raman ([facility]) Registered Nurse 02/29/24 Marcos Verdin MD [place] [facility] [address] [place] [address] Cardiology 03/10/24 Omid Vincent Psychiatry 03/15/24 documented as of this encounter
--- OUTSIDE RECORDS SUMMARY | 2024-08-18 09:55 | XMS_ITS | Encounter Summary ---
Author Organization [employer] Address [address] [facility] [address] [address] 7t [place] [address] Care Team Providers Care Machinery Cleaner Name Role Phone Nathalie Hsu MD Primary Care Provider +1- [phone] Shannan Barrow RN Unavailable [phone] Lisbeth Johnson Unavailable Reason for Visit * Reason Onset Date Comments INR report 03/31/2023 Encounter Details Date Type Department Care Team (Late st Contact Info) Description 03/31/2023 Telephone [facility] MEDICINE 230 [place], [place] [phone] Nathalie Hsu MD 230 [place], [place] [phone] INR report Social History Tobacco Use Types [...] Miscellaneous Notes * Telephone Encounter - Alexandremartita Shlomo Shook - 03/31/2023 3:39 PM EST Tc from Raman VALE with [facility] requesting a call from a nurse to report an INR results. Please contact Raman @ [phone] documented in this encounter Plan of Treatment Upcoming Encounters Date Type Department Care Team (Late st Contact Info) Description 09/19/2024 10:00 AM EDT Office Visit [facility] ADULT DENTAL 230 [place] [address] Panchito Lamas, DDS 230 [place] [address] 11/09/2024 1:00 PM EDT Office Visit [facility] OPTOMETRY [address] [place] [address] Seth, Zabrina, OD 230 [place] [address] 01/08/2025 10:00 AM EDT Office Visit [facility] ADULT DENTAL 230 [place] [address] Ulises, Chiquita 230 [place] [address] documented as of this encounter Visit Diagnoses Not on filedocumented in this encounter Additional Health Concerns Assessment Noted Time PHQ-9 Depression Total Score: 6 05/08/19 23 10:33 AM EST documented as of this encounter Care Teams Machinery Cleaner Relationship Specialty Start Date End Date Nathalie Hsu MD 230 [place] [address] PCP - General Family Medicine 09/27/13 Shannan Barrow, RN 230 [place] [address] Registered Nurse 02/29/24 Lisbeth Johnson [address] [place] [address] Drive 3rd [place] [address] Gastroenterology 03/15/24 Tonya Poole Drawer UpfitterManager Sql 01/19/24 Raman ([facility]) Registered Nurse 02/29/24 Marcos Verdin MD [place] [facility] [address] [place] [address] Cardiology 03/10/24 Omid Vincent Psychiatry 03/15/24 documented as of this encounter
--- OUTSIDE RECORDS SUMMARY | 2024-08-18 09:56 | XMS_ITS | Encounter Summary ---
Author Organization [employer] [facility] Address [address] [facility] [address] 7t [place] [address] Care Team Providers Care Research Assistant Member Name Role Phone Nathalie Hsu MD Primary Care Provider [phone]- [phone] Shannan Barrow RN Unavailable [phone] Lisbeth Johnson Unavailable Encounter Details Date Type Department Care Team (Late st Contact Info) Description 05/12/2022 Abstract [facility] MEDICINE [address] [place] [address] Nathalie Hsu MD [address] [place] [address] Social History Tobacco Use Types Packs/Day Years [...] Department Care Team (Late Contact Info) Description 09/19/2024 10:00 AM EDT Office Visit [facility] ADULT DENTAL 230 [place] [address] Panchito Lamas, DDS 230 [place] [address] 11/09/2024 1:00 PM EDT Office Visit [facility] OPTOMETRY [address] [place] [address] SethAshutosh funesn, OD 230 [place] [address] 01/08/2025 10:00 AM EDT Office Visit [facility] ADULT DENTAL 230 [place] [address] Adalberto Montgomeryaris 230 [place] [address] documented as of this encounter Procedures Procedure [...] documented as of this encounter Care Teams Research Assistant Member Relationship Specialty Start Date End Date Nathalie Hsu MD 230 [place] [address] PCP - General Family Medicine 09/27/13 Shannan Barrow, KHAI [address] [place] [address] Registered Nurse 02/29/24 Lisbeth Johnson [address] [place] [address] Drive 3rd [place] [address] Gastroenterology 03/15/24 Tonya Poole Centrifugal Casting Machine OperatorFraternity House Cook 01/19/24 Raman ([facility]) Registered Nurse 02/29/24 Marcos Verdin MD [place] [facility] [address] [place] [address] Cardiology 03/10/24 Omid Vincent Psychiatry 03/15/24 documented as of this encounter
--- OUTSIDE RECORDS SUMMARY | 2024-08-18 09:56 | XMS_ITS | Encounter Summary ---
Author Organization [employer] [facility] Address 75 [facility] 7t [place] [address] Care Team Providers Care Flyer Builder Name Role Phone [place], Nathalie ABDI Primary Care Provider + [phone] Shannan Barrow RN Unavailable [phone] Lisbeth Johnson Unavailable Encounter Details Date Type Department Care Team (Late st Contact Info) Description 04/01/2022 Orders Only [facility] MEDICINE 230 [place] [address] Anabell Weston, RN Social History Tobacco Use Types Packs/Day Years [...] Description 09/19/2024 10:00 AM EDT Office Visit [facility] ADULT DENTAL 230 [place] [address] Panchito Lamas DDS 230 [place] [address] 11/09/2024 1:00 PM EDT Office Visit [facility] OPTOMETRY [address] [place] [address] SethZabrina funes, OD 230 [place] [address] 01/08/2025 10:00 AM EDT Office Visit [facility] ADULT DENTAL 230 [place], [place] [phone] Chiquita Montgomery 230 [place] [address] documented as of this encounter Visit Diagnoses Not on filedocumented in this encounter Care Teams Flyer Builder Relationship Specialty Start Date End Date Nathalie Hsu MD 230 [place] [address] PCP - General Family Medicine 09/27/13 Shannan Barrow, KHAI [address] [place] [address] Registered Nurse 02/29/24 Lisbeth Johnson [address] [place] [address] 3rd [place] [address] Gastroenterology 03/15/24 Tonya Poole Cnc TechnicianAutism Teacher 01/19/24 Raman ([facility]) Registered Nurse 02/29/24 Marcos Verdin MD [place] [facility] [address] [place] [address] Cardiology 03/10/24 Omid Vincent Psychiatry 03/15/24 documented as of this encounter
--- OUTSIDE RECORDS SUMMARY | 2024-08-18 09:56 | XMS_ITS | Encounter Summary ---
Author Organization [employer] Address [address] [facility] [address] 7t [place] [address] Care Team Providers Care Trailer Tank Truck Driver Name Role Phone Nathalie Hsu MD Primary Care Provider [phone]- [phone] Shannan Barrow RN Unavailable [phone] Lisbeth Johnson Unavailable Reason for Visit * Reason Onset Date Comments Coagulation Disorder 05/12/2023 Encounter Details Date Type Department Care Team (Late st Contact Info) Description 05/12/2023 Telephone [facility] MEDICINE 230 [place], [place] [phone] Nathalie Hsu MD 230 [place], [place] [phone] Coagulation Disorder Social History Tobacco Use Types [...] to report INR. Please contact raman at [phone] documented in this encounter Plan of Treatment Upcoming Encounters Date Type Department Care Team (Late st Contact Info) Description 09/19/2024 10:00 AM EDT Office Visit [facility] ADULT DENTAL 230 [place] [address] Panchito Lamas, DDS 230 [place] [address] 11/09/2024 1:00 PM EDT Office Visit [facility] OPTOMETRY [address] [place] [address] Seth, Zabrina, OD 230 [place] [address] 01/08/2025 10:00 AM EDT Office Visit [facility] ADULT DENTAL 230 [place] [address] Ulises, Chiquita [address] [place] [address] documented as of this encounter Visit Diagnoses Not on filedocumented in this encounter Additional Health Concerns Assessment Noted Time PHQ-9 Depression Total Score: 6 05/08/19 23 10:33 AM EST documented as of this encounter Care Teams Trailer Tank Truck Driver Relationship Specialty Start Date End Date Nathalie Hsu MD 230 [place] [address] PCP - General Family Medicine 09/27/13 Shannan Barrow, RN 230 [place] [address] Registered Nurse 02/29/24 Lisbeth Johnson [address] [place] [address] Drive 3rd [place] [address] Gastroenterology 03/15/24 Tonya Poole Field Artillery CrewmemberSupport Analyst 01/19/24 Raman (A S) Registered Nurse 02/29/24 Marcos Verdin MD [place] [facility] [address] [place] [address] Cardiology 03/10/24 Omid Vincent Psychiatry 03/15/24 documented as of this encounter
[2024-08-18 10:07] LABS: MANUAL DIFF FLAG NO
[2024-08-18 10:09] LABS: Basophils Absolute Auto 0.1 X10*3/uL (0.0-0.2); Basophils Percent Auto 0.9 % (0-2); Eosinophils Absolute Auto 0.2 X10*3/uL (0.0-0.4); Eosinophils Percent Auto 1.6 % (0-4); Hematocrit 39.4 % (42.0-52.0); Hemoglobin 13.8 g/dl (14.0-18.0); Imm Gran Abs Auto 0.05 X10*3/uL (0.00-0.03); Imm Gran Pct Auto 0.5 % (0.0-0.4); Lymphocytes Absolute Auto 2.1 X10*3/uL (1.2-4.9); Lymphocytes Percent Auto 22.9 % (20-40); Mean Corpuscular Hemoglobin 31.8 pg (27.0-33.0); Mean Corpuscular Volume 90.8 fL (80.0-98.0); Mean Platelet Volume 8.9 fL (9.4-12.4); Monocytes Absolute Auto 0.8 X10*3/uL (0.1-1.2); Monocytes Percent Auto 8.7 % (2-11); Neutrophils Absolute Auto 6.1 x10*3/uL (2.0-8.3); Neutrophils Percent Auto 65.4 % (45-73); Platelet Count 233 X10*3/uL (160-400); Red Blood Count 4.34 X10*6/uL (4.60-5.80); Red Cell Distribution Width 15.1 % (11.0-16.0); White Blood Count 9.4 X10*3/uL (4.8-10.8)
[2024-08-18 10:14] LABS: INTERNATIONAL NORM RATIO 4.1 (0.9-1.1); Prothrombin Time 46.6 SEC (10.9-12.4)
[2024-08-18] MEDS: Ondansetron ODT 4 MG TAB.RAPDIS TRANSLINGU (10:18)
[2024-08-18 10:29] LABS: B Type Natriuretic Peptide 97 pg/mL (<100)
[2024-08-18 10:53] LABS: Influenza A PCR NEGATIVE (Negative); Influenza B PCR NEGATIVE (Negative); Resp Syncy Virus RNA Qual PCR NEGATIVE (Negative); SARS COV2 PCR INHOUSE NEGATIVE (Negative)
[2024-08-18 10:58] LABS: Alanine Aminotransferase 18 U/L (0-40); Alkaline Phosphatase 114 U/L (39-117); Anion Gap 12 (12-20); Aspartate Amino Transferase 25 U/L (5-37); Bilirubin Total 0.7 mg/dL (0.0-1.0); Blood Urea Nitrogen 13 mg/dL (9-16); Calcium 9.1 mg/dL (8.4-10.2); Carbon Dioxide 22 mmol/L (22-29); Chloride 108 mmol/L (96-108); Creatinine Clr Calc Pharmacy 87.5; Estimated Glomerular Filt Rate > 60; Glucose Random 99 mg/dL (60-115); Lipase 12 U/L (8-78); Magnesium 1.6 mg/dL (1.6-2.6); Potassium 4.1 mmol/L (3.3-5.1); Sodium 138 mmol/L (135-145); Total Protein 7.6 g/dL (6.5-8.0)
[2024-08-18 12:05] VITALS: BP 128/77; PULSE 89; RESP 24; TEMP 36.8; O2SAT 94
== END 2024-08-18 12:06 | disposition home or self-care (01) ==
PROVIDERS: Nurse Practitioner Family; Emergency Provider Emergency Medicine Emergency Medical Services; PCP Family Medicine
DX: S22.42XA Multiple fractures of ribs, left side, initial encounter for closed fracture (principal); S42.032A Displaced fracture of lateral end of left clavicle, initial encounter for closed fracture; R11.2 Nausea with vomiting, unspecified; M25.512 Pain in left shoulder; R07.89 Other chest pain; D64.9 Anemia, unspecified; R19.7 Diarrhea, unspecified; F17.210 Nicotine dependence, cigarettes, uncomplicated; R06.02 Shortness of breath; X58.XXXA Exposure to other specified factors, initial encounter; Y93.9 Activity, unspecified; Y92.9 Unspecified place or not applicable; Y99.8 Other external cause status; Z79.01 Long term (current) use of anticoagulants; Z79.899 Other long term (current) drug therapy; Z03.818 Encounter for observation for suspected exposure to other biological agents ruled out
CPT/HCPCS: 0241U; 36415; 71101; 73030; 80053; 83690; 83735; 83880; 84484; 85025; 85610; 93005; 99283

== ENCOUNTER → 2024-08-18 09:30 | Outpatient (BNV) | payer MEDICAID, SELFPAY | PROVIDERS: Emergency Provider Emergency Medicine Emergency Medical Services; PCP Family Medicine; Visit Provider Radiology Diagnostic Radiology | DX: S22.42XA Multiple fractures of ribs, left side, initial encounter for closed fracture (principal); S42.002A Fracture of unspecified part of left clavicle, initial encounter for closed fracture | CPT/HCPCS: 71101; 73030 ==

== ENCOUNTER → 2024-08-18 09:31 | Outpatient (BNV) | payer MEDICAID, SELFPAY | PROVIDERS: Emergency Provider Emergency Medicine Emergency Medical Services; PCP Family Medicine; Visit Provider Internal Medicine Cardiovascular Disease | DX: R94.31 Abnormal electrocardiogram [ECG] [EKG] (principal); Z95.0 Presence of cardiac pacemaker | CPT/HCPCS: 93010 ==

== ENCOUNTER 2024-08-31 18:37 | Emergency (ER) | payer MEDICAID, SELFPAY ==
--- NOTE | ~2024-08-31 | CT_ITS ---
CLINICAL HISTORY: fall, L anterior chest ecchymosis, pain CT chest without contrast Comparison: CT/SR - CT CHEST WO IV CON - 08/04/24 15:07 EDT Findings: There is a right subclavian pacemaker with leads in the right heart. Heart size is enlarged and there are coronary artery calcifications. There is a prosthetic aortic valve ring. The visualized thyroid and mediastinum are unremarkable. No consolidation or effusion. The visualized upper abdomen is unremarkable. There are old left 7th, 8th, 9th and 10th rib fractures. No acute rib fractures. Previous sternotomy. No evidence of acute sternal fracture. No fractures of the anterior costochondral cartilage. There is a old fracture of the medial right clavicular head. There are old thoracic compression deformities at T4, T7 and T12. No acute thoracic spine fractures. IMPRESSION: 1. No acute findings in the chest. Specifically, no acute rib fractures seen. This document has been electronically signed by: Suhas Cleveland MD on 08/31/2024 20:15:49
--- NOTE | ~2024-08-31 | CT_ITS ---
CLINICAL HISTORY: fall, ETOH CT head without contrast Comparison: CT/SR - CT HEAD/BRAIN WO IV CON - 01/23/24 03:00 EDT Findings: No intra-axial mass, midline shift, hydrocephalus, or acute hemorrhage. Encephalomalacia in the right temporal lobe. Mild cerebral atrophy globally. Wall calcifications of the carotid siphons and the intracranial vertebral arteries and basilar artery. Mild mucosal thickening of the frontoethmoidal recesses. Small amount of fluid in the left maxillary sinus. Previous left maxillary sinus surgery. The orbits are within normal limits. Prior parietal craniotomy. IMPRESSION: 1. No acute intracranial findings. This document has been electronically signed by: Suhas Cleveland MD on 08/31/2024 21:21:20
[2024-08-31 18:59] VITALS: BP 117/52; BP 148/82; PULSE 84; PULSE 92; RESP 18; TEMP 36.9; O2SAT 92; O2SAT 99; BMI 24.1
--- NOTE | 2024-08-31 19:15 | ED.GENADULT ---
HPI - General Adult General Chief complaint: ETOH/Substance Use Stated complaint: etoh, cut on L elbow not bleeding Time Seen by Provider: 08/31/24 18:54 Source: patient and EMS Mode of arrival: EMS Limitations: language barrier (Estonian-speaking medical transcription radiology utilized) and altered mental status History of Present Illness ED Provider: gilberto swain np HPI narrative: Patient is a 64-year-old male who presents emergency department via EMS for evaluation. He appears to be acutely intoxicated. Evidently EMS was called as [facility] expressed concern reporting a recent fall he is anticoagulated on Coumadin, has a abrasions to the bilateral elbows and purple/yellow ecchymosis to the left anterior chest. When asking patient, he provides various answers as to when this fall may have occurred such as 2 days ago, 4 weeks ago, as well as months ago. There is no clear history. He has appearing acutely intoxicated under the influence of alcohol. He reports that the visiting nurse comes to his home to ?check my Coumadin levels?, there is some mention of perhaps it being normal yesterday and/or low, conflicting information from patient. He reports having pain but does not localize pain anywhere specifically, he would like to call his brother for a ride home at this time. Related Data Home Medications ?Medication ?Instructions ?Recorded ?Confirmed melatonin 5 mg tablet 2 tab PO BEDTIME PRN insomnia 10/18/20 01/23/24 atorvastatin 20 mg tablet 20 mg PO DAILY 11/18/20 01/23/24 blood pressure test kit-large #1 ea 11/18/20 02/09/23 lidocaine 5 % topical patch 1 patch topical DAILY 11/18/20 01/23/24 magnesium oxide 400 mg (241.3 mg 400 mg PO BID 11/18/20 01/23/24 magnesium) tablet pantoprazole 40 mg tablet,delayed 40 mg PO BID 11/18/20 01/23/24 release thiamine HCl (vitamin B1) 100 mg 100 mg PO DAILY 11/18/20 01/23/24 tablet olanzapine 5 mg tablet 1 tab PO BEDTIME 10/10/21 01/23/24 acetaminophen 500 mg tablet 500 mg PO BID PRN Mild Pain (Scale 05/11/22 01/23/24 Score 1-4) albuterol sulfate 90 mcg/actuation 2 puff inhalation Q4H PRN 05/11/22 01/23/24 aerosol inhaler (Ventolin HFA) Respiratory Distress buspirone 10 mg tablet 10 mg PO TID 05/11/22 01/23/24 sacubitril 24 mg-valsartan 26 mg 1 tab PO BID 06/12/22 01/23/24 tablet (Entresto) budesonide-formoterol HFA 160 2 puff inhalation BID 02/09/23 01/23/24 mcg-4.5 mcg/actuation aerosol inhaler (Symbicort) clopidogrel 75 mg tablet 75 mg PO DAILY 05/17/23 01/23/24 acamprosate 333 mg tablet,delayed 666 mg PO BID 09/15/23 01/23/24 release hydroxyzine pamoate 50 mg capsule 100 mg PO BEDTIME PRN insomnia 01/23/24 01/23/24 warfarin 5 mg tablet 5 mg PO DAILY 01/23/24 01/23/24 lactulose 10 gram/15 mL oral 30 ml PO TID 04/28/24 solution warfarin 10 mg tablet 10 mg PO DAILY 07/07/24 ferrous sulfate 325 mg (65 mg 325 mg PO QAM 07/28/24 iron) tablet,delayed release metoprolol succinate 25 mg 25 mg PO [facility] 07/28/24 tablet,extended release 24 hr nicotine 14 mg/24 hr daily 1 patch topical [facility] 07/28/24 transdermal patch quetiapine 50 mg tablet 50 mg PO DAILY PRN 07/28/24 Previous Rx's ?Medication ?Instructions ?Recorded furosemide 40 mg tablet 40 mg PO DAILY #30 tabs 05/29/23 rifaximin 550 mg tablet 550 mg PO BID 90 days #180 tabs 03/17/24 oxycodone 5 mg tablet 5 mg PO Q6H PRN pain #10 tabs 08/18/24 Allergies Allergy/AdvReac Type Severity Reaction Status Date / Time lorazepam [From ATIVAN] AdvReac Severe OPPOSITE Verified 08/31/24 19:01 EFFECT PSYCOTIC EFECTS Review of Systems Review of Systems: Yes Unobtainable due to mental status [facility] Past Medical History Attestation statement: The following information was validated with the patient. Source: old records reviewed Medical History Sepsis Rhabdomyolysis EDGAR (acute kidney injury) Supratherapeutic INR Fall Acute hyponatremia Intracranial hemorrhage Coronary artery disease Chronic systolic CHF (congestive heart failure) Hypertension Short-segment Harrell's esophagus Pacemaker Skull fracture Alcoholic liver disease Cocaine abuse Alcohol abuse Surgical History Aortic valve replaced S/P CABG (coronary artery bypass graft) H/O aortic valve replacement History of esophagogastroduodenoscopy (EGD) Social History Social History Household Members: None Housing: Apartment Do you presently have visiting nurse or other home services: Yes ([facility]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) Alcohol intake: current Alcohol intake frequency: a few times a week Alcohol type: beer Comment: pt refused, to have assistance with ambulation, chair and bed alarm Patient Tobacco Use Status: Current everyday Tobacco user Tobacco use type: Cigarette Cigarette Packs Per Day: 1 Cigarettes Per Day: 20.0 Smoked in Last 30 Days: No Second Hand Smoke Exposure: No Use of substances other than those prescribed or required for medical reasons: No Substance Use Type: Marijuana Advance Directives: Yes Advance Directives on File: Yes Advance Directives Date on File: 10/11/21 Do you have a plan to hurt others: No Plan service: No Current occupational status: unemployed Physical Exam ED Vital Signs: Vital Signs - 24 hr 08/31/24 18:59 08/31/24 21:53 Temperature 98.5 F 98.1 F Pulse Rate 92 92 Respiratory Rate 18 16 Blood Pressure 117/52 L 122/70 Pulse Oximetry 92 97 Oxygen Delivery Method Room Air Room Air BMI result Body Mass Index 24.1 Appearance: Alert.?Oriented to person, place and time. No acute distress.?Normal affect. Head: Normocephalic Eyes: Pupils equal, round and reactive to light. EOMI. Conjunctiva and sclera normal? No raccoon eyes noted ENT: No septal hematoma, nares patent bilaterally. External auditory canal normal tympanic membrane pearly finley and intact bilaterally. No horowitz sign. Dentition normal, no fractured teeth. No lesions or lacerations of oropharynx. Uvula midline. Moist mucous membranes. Neck: Normal inspection.? Neck supple.??No palpable tenderness, step-off, deformities. CVS: Heart sounds normal. Normal heart rate and rhythm.? Pulses normal.??Ecchymosis to the left anterior chest purple/yellow appears to be somewhat aged, mild tenderness upon palpation. No crepitus. No palpable deformities of the chest wall. Respiratory: No respiratory distress.? Lung sounds clear to auscultation bilaterally?? Abdomen: Soft and non-tender. Normoactive bowel sounds. ?? Skin: Skin warm and dry.? Normal skin color.? ? Extremities: No lower extremity edema.? Full range of motion to bilateral hips knees and ankles. Full range of motion to bilateral shoulders elbows and wrists. Superficial abrasions to the posterior aspect of the bilateral elbows. Neuro: Moves all extremities spontaneously. Sensation intact bilaterally. CN II-XII intact. No focal neuro deficits. Course Reevaluation(s) Reevaluation #1: CBC reveals no leukocytosis, has a mild normocytic anemia that does not meet transfusion criteria, no thrombocytopenia. No significant electrolyte derangement. No EDGAR. LFTs unremarkable. Urinalysis without evidence of infection. Drug abuse screen is negative. Ethyl alcohol level of 243. CT head and chest without acute pathology. Patients brother is at bedside to provide patient with safe ride home. Patient is ambulatory with a steady gait. Offering no physical complaints at this time. Stable for discharge. Time: 23:21 Medical Decision Making Medical Decision Making MDM Narrative: Patient is a 64-year-old male past medical history of AVR on warfarin, alcohol use disorder with alcoholic liver disease, history of cocaine use disorder, CHF with reduced EF, CAD, CABG, pacemaker, history of intracranial hemorrhage, mood disorder who presents emergency department for evaluation. Evidently [facility] arrived to the Wound today expressing concern for a ? Recent fall, abrasions of the bilateral elbows. [facility] was there to check his INR, did not check it today, reports yesterday it was either normal or low. He is obviously under the influence of alcohol at this time. He does not provide much meaningful history due to his current intoxicated state. Plan to obtain serum labs including PT/INR, CT of the head out of abundance of caution given he is anticoagulated and has prior ICH with reported concern for fall, CT of the chest. He has full range of motion to the bilateral upper and lower extremities, all extremities are neurovascularly intact distally, superficial abrasions of the bilateral elbows were cleansed with normal saline and bandages applied. Offers no additional physical complaints at this time. Differential Diagnosis Differential Diagnoses: The differential diagnosis associated with the presentation includes (See narrative above) Admission/Observation Consideration of admission/observation: Escalation of care including admission/observation considered Lab Data MDM Lab Attestation statement: I reviewed the patient's lab results. 08/31/24 19:31 08/31/24 20:33 Labs: Lab Results 08/31/24 08/31/24 08/31/24 Range/Units 19:31 20:33 20:35 WBC 8.5 (4.8-10.8) X10*3/uL RBC 4.09 L (4.60-5.80) X10*6/uL Hgb 13.1 L (14.0-18.0) g/dl Hct 36.9 L (42.0-52.0) % MCV 90.2 (80.0-98.0) fL MCH 32.0 (27.0-33.0) pg MCHC 35.5 (31.0-36.0) g/dl RDW 15.9 (11.0-16.0) % Plt Count 241 (160-400) X10*3/uL MPV 9.3 L (9.4-12.4) fL Immature Gran % (Auto) 0.6 H (0.0-0.4) % Neut % (Auto) 53.5 (45-73) % Lymph % (Auto) 35.5 (20-40) % [place] % (Auto) 8.7 (2-11) % Eos % (Auto) 0.9 (0-4) % Baso % (Auto) 0.8 (0-2) % Lymph # (Auto) 3.0 (1.2-4.9) X10*3/uL [place] # (Auto) 0.7 (0.1-1.2) X10*3/uL Eos # (Auto) 0.1 (0.0-0.4) X10*3/uL Baso # (Auto) 0.1 (0.0-0.2) X10*3/uL Abs Immat Gran (auto) 0.05 H (0.00-0.03) X10*3/uL Absolute Neuts (auto) 4.5 (2.0-8.3) x10*3/uL Absolute Nucleated RBC 0.000 (0.0-0.012) X10*3/uL Nucleated RBC % (auto) 0.0 (0.0-0.2) /100WBC PT 35.9 H D (10.9-12.4) SEC INR 3.1 H (0.9-1.1) Sodium 136 (135-145) mmol/L Potassium 3.8 (3.3-5.1) mmol/L Chloride 107 (96-108) mmol/L Carbon Dioxide 18 L (22-29) mmol/L Anion Gap 15 (12-20) BUN 13 (9-16) mg/dL Creatinine 1.06 (0.5-1.4) mg/dL Estim Creat Clear Calc 73.6 Estimated GFR > 60 Random Glucose 85 (60-115) mg/dL Calcium 9.1 (8.4-10.2) mg/dL Total Bilirubin 0.7 (0.0-1.0) mg/dL AST 37 (5-37) U/L ALT 20 (0-40) U/L Alkaline Phosphatase 115 (39-117) U/L Total Protein 7.9 (6.5-8.0) g/dL Albumin 4.3 (3.5-5.0) g/dL Urine Color Yellow Urine Appearance Clear Urine pH 6.5 (5.0-9.0) Ur Specific [place]illi[place] <= 1.005 (1.005-1.025) Urine Protein Trace (Neg-Trace) mg/dL Urine Glucose (UA) Negative (Negative) mg/dL Urine Ketones Negative (Negative) mg/dL Urine Blood Small (1+) H (Negative) Urine Nitrite Negative (Negative) Ur Leukocyte Esterase Negative (Negative) Urine RBC 0-2 (0-2) /HPF Urine WBC 0-5 (0-5) /HPF Ur Squamous Epith Cells 0-2 (0-2) /HPF Urine Bacteria None Seen (None Seen) Hyaline Casts 0-2 (0-2) /LPF Urine Opiates Screen Not Detected (Not Detect) Ur Buprenorphine Scrn Not Detected (Not Detect) ng/mL Ur Oxycodone Screen Not Detected (Not Detect) ng/mL Urine Methadone Screen Not Detected (Not Detect) ng/mL Urine Fentanyl Screen Not Detected (Not Detect) Ur Barbiturates Screen Not Detected (Not Detect) Ur Phencyclidine Scrn Not Detected (Not Detect) Ur Amphetamines Screen Not Detected (Not Detect) U Benzodiazepines Scrn Not Detected (Not Detect) Urine Cocaine Screen Not Detected (Not Detect) U Marijuana (THC) Screen Not Detected (Not Detect) Ethyl Alcohol 243 mg/dL Radiology Impression Discussion of test interpretation with radiology: I have reviewed the radiologist's reading. Radiologist Impression: CT head without contrast Comparison: CT/SR - CT HEAD/BRAIN WO IV CON - 01/23/24 03:00 EDT Findings: No intra-axial mass, midline shift, hydrocephalus, or acute hemorrhage. Encephalomalacia in the right temporal lobe. Mild cerebral atrophy globally. Wall calcifications of the carotid siphons and the intracranial vertebral arteries and basilar artery. Mild mucosal thickening of the frontoethmoidal recesses. Small amount of fluid in the left maxillary sinus. Previous left maxillary sinus surgery. The orbits are within normal limits. Prior parietal craniotomy. IMPRESSION: 1. No acute intracranial findings. CT chest without contrast Comparison: CT/SR - CT CHEST WO IV CON - 08/04/24 15:07 EDT Findings: There is a right subclavian pacemaker with leads in the right heart. Heart size is enlarged and there are coronary artery calcifications. There is a prosthetic aortic valve ring. The visualized thyroid and mediastinum are unremarkable. No consolidation or effusion. The visualized upper abdomen is unremarkable. There are old left 7th, 8th, 9th and 10th rib fractures. No acute rib fractures. Previous sternotomy. No evidence of acute sternal fracture. No fractures of the anterior costochondral cartilage. There is a old fracture of the medial right clavicular head. There are old thoracic compression deformities at T4, T7 and T12. No acute thoracic spine fractures. IMPRESSION: 1. No acute findings in the chest. Specifically, no acute rib fractures seen. Independent Historian Clinical information obtained from an independent historian. History obtained from or confirmed by: EMS External Record Review External record reviewed: Outpatient record Chronic Conditions Patient?s care impacted by: Other (See narrative above) Discharge Plan Discharge Clinical Impression: Alcoholic intoxication Patient Disposition: Home, Self-Care Instructions: Alcohol Use Disorder (ED) Additional Instructions: Follow-up with your primary care doctor. Return to emergency department any new or worsening symptoms or concerns. If you are interested in assistance with detox from alcohol, there are services available. Consider cutting back the amount of alcohol that you are consuming Alcohol use disorder You were seen in the Emergency Department today for alcohol use .? If you would like to cut down or stop your alcohol use please consider calling our outpatient Addiction Treatment office:? [facility] (M-F [id number]) [address] [place] [address] [address] ? You have also been given a list of treatment providers in the area that can assist as well.? If you experience seizures, vomiting blood, black stools, falls, severe headache, chest pain, fevers, trouble breathing, hallucinations or any other concerns you need to call 911 or seek immediate care. Please stay hydrated. Prescriptions: No Action rifaximin 550 mg tablet 550 mg PO BID 90 Days Qty: 180 1RF melatonin 5 mg tablet 2 tab PO BEDTIME PRN (Reason: insomnia) olanzapine 5 mg tablet 1 tab PO BEDTIME acetaminophen 500 mg Tablet 500 mg PO BID PRN (Reason: Mild Pain (Scale Score 1-4)) buspirone 10 mg Tablet 10 mg PO TID albuterol sulfate [Ventolin HFA] 90 mcg/actuation Hfa Aerosol Inhaler 2 puff INHALATION Q4H PRN (Reason: Respiratory Distress) acamprosate 333 mg tablet,delayed release (DR/EC) 666 mg PO BID hydroxyzine pamoate 50 mg capsule 100 mg PO BEDTIME PRN (Reason: insomnia) warfarin 5 mg tablet 5 mg PO DAILY budesonide-formoterol [Symbicort] 160-4.5 mcg/actuation HFA aerosol inhaler 2 puff inhalation BID clopidogrel 75 mg tablet 75 mg PO DAILY furosemide 40 mg Tablet 40 mg PO DAILY Qty: 30 0RF Protocol: Hold for SBP< HOLD for SBP < : 90 oxycodone 5 mg tablet 5 mg PO Q6H PRN (Reason: pain) Qty: 10 0RF Rx Instructions: Partial Fill upon patient request. pantoprazole 40 mg tablet,delayed release (DR/EC) 40 mg PO BID magnesium oxide 400 mg (241.3 mg magnesium) tablet 400 mg PO BID thiamine HCl (vitamin B1) 100 mg tablet 100 mg PO DAILY atorvastatin 20 mg tablet 20 mg PO DAILY (DME) blood pressure test kit-large Kit See Rx Instructions .ROUTE DIRECTED Qty: 1 Rx Instructions: As directed lidocaine 5 % adhesive patch,medicated 1 patch topical DAILY Protocol: Apply to: Apply to: AFFECTED AREA Entresto 24-26 mg tablet 1 tab PO BID lactulose 10 gram/15 mL solution 30 ml PO TID quetiapine 50 mg tablet 50 mg PO DAILY PRN nicotine 14 mg/24 hr patch 24 hour 1 patch topical QAM metoprolol succinate 25 mg tablet extended release 24 hr 25 mg PO QAM ferrous sulfate 325 mg (65 mg iron) tablet,delayed release (DR/EC) 325 mg PO QAM warfarin 10 mg tablet 10 mg PO DAILY Print Language: Estonian
[2024-08-31 19:37] LABS: MANUAL DIFF FLAG NO
[2024-08-31 19:39] LABS: Basophils Absolute Auto 0.1 X10*3/uL (0.0-0.2); Basophils Percent Auto 0.8 % (0-2); Eosinophils Absolute Auto 0.1 X10*3/uL (0.0-0.4); Eosinophils Percent Auto 0.9 % (0-4); Hematocrit 36.9 % (42.0-52.0); Hemoglobin 13.1 g/dl (14.0-18.0); Imm Gran Abs Auto 0.05 X10*3/uL (0.00-0.03); Imm Gran Pct Auto 0.6 % (0.0-0.4); Lymphocytes Percent Auto 35.5 % (20-40); Mean Corpuscular HGB Conc 35.5 g/dl (31.0-36.0); Mean Corpuscular Volume 90.2 fL (80.0-98.0); Mean Platelet Volume 9.3 fL (9.4-12.4); Monocytes Absolute Auto 0.7 X10*3/uL (0.1-1.2); Monocytes Percent Auto 8.7 % (2-11); Neutrophils Absolute Auto 4.5 x10*3/uL (2.0-8.3); Neutrophils Percent Auto 53.5 % (45-73); Platelet Count 241 X10*3/uL (160-400); Red Blood Count 4.09 X10*6/uL (4.60-5.80); Red Cell Distribution Width 15.9 % (11.0-16.0); White Blood Count 8.5 X10*3/uL (4.8-10.8)
[2024-08-31 20:53] LABS: INTERNATIONAL NORM RATIO 3.1 (0.9-1.1); Prothrombin Time 35.9 SEC (10.9-12.4)
[2024-08-31 20:54] LABS: Alanine Aminotransferase 20 U/L (0-40); Albumin Level 4.3 g/dL (3.5-5.0); Alkaline Phosphatase 115 U/L (39-117); Anion Gap 15 (12-20); Aspartate Amino Transferase 37 U/L (5-37); Bilirubin Total 0.7 mg/dL (0.0-1.0); Blood Urea Nitrogen 13 mg/dL (9-16); Calcium 9.1 mg/dL (8.4-10.2); Carbon Dioxide 18 mmol/L (22-29); Chloride 107 mmol/L (96-108); Creatinine Clr Calc Pharmacy 73.6; Estimated Glomerular Filt Rate > 60; Ethanol 243 mg/dL; Glucose Random 85 mg/dL (60-115); Potassium 3.8 mmol/L (3.3-5.1); Sodium 136 mmol/L (135-145); Total Protein 7.9 g/dL (6.5-8.0)
[2024-08-31 20:57] LABS: Appearance Urine Clear; Color Urine Yellow; Glucose Urine UA Negative (Negative); Leukocyte Esterase Urine Negative (Negative); Nitrite Urine Negative (Negative); PH 6.5 (5.0-9.0); Specific Gravity - Urine <= 1.005 (1.005-1.025); UMIC TRIGGER UACC YES; Urine Blood Small (1+) (Negative); Urine Ketones Negative (Negative); Urine Protein Trace mg/dL (Neg-Trace)
[2024-08-31 21:07] LABS: Amphetamine Screen Urine Not Detected (Not Detect); Barbiturates, Urine Not Detected (Not Detect); Benzodiazepines Screen Urine Not Detected (Not Detect); Buprenorphine Scr Not Detected (Not Detect); Cannabinoid Screen Urine Not Detected (Not Detect); Cocaine Screen Urine Not Detected (Not Detect); Fentanyl, urine Not Detected (Not Detect); Methadone Screen, Urine Not Detected (Not Detect); Opiate Screen Urine Not Detected (Not Detect); Oxycodone Screen Urine Not Detected (Not Detect); Phencyclidine Screen Urine Not Detected (Not Detect)
[2024-08-31 21:22] LABS: Bacteria Urine None Seen (None Seen); Hyaline Casts Urine 0-2 /LPF (0-2); RBC Urine 0-2 /HPF (0-2); Squamous Epithelial Cell Urine 0-2 /HPF (0-2); WBC Urine 0-5 /HPF (0-5)
[2024-08-31 21:53] VITALS: BP 122/70; PULSE 92; RESP 16; TEMP 36.7; O2SAT 97
--- NOTE | 2024-08-31 23:18 | PC.NURSE ---
per provider patient is ready for discharge, patient's family member at bedside and will provide a safe ride home for patient, d/c instructions given
[2024-08-31 23:26] VITALS: BP 122/70; PULSE 92; RESP 16; TEMP 36.7; O2SAT 97
== END 2024-08-31 23:28 | disposition home or self-care (01) ==
PROVIDERS: Nurse Practitioner Family; Emergency Provider Emergency Medicine; PCP Family Medicine
DX: S51.012A Laceration without foreign body of left elbow, initial encounter (principal); S20.212A Contusion of left front wall of thorax, initial encounter; F10.129 Alcohol abuse with intoxication, unspecified; Y90.8 Blood alcohol level of 240 mg/100 ml or more; M54.6 Pain in thoracic spine; R51.9 Headache, unspecified; I25.10 Atherosclerotic heart disease of native coronary artery without angina pectoris; F17.210 Nicotine dependence, cigarettes, uncomplicated; W45.8XXA Other foreign body or object entering through skin, initial encounter; Y93.9 Activity, unspecified; Y92.9 Unspecified place or not applicable; Y99.8 Other external cause status; Z51.81 Encounter for therapeutic drug level monitoring; Z79.899 Other long term (current) drug therapy
CPT/HCPCS: 36415; 70450; 71250; 80053; 80307; 81001; 85025; 85610; 99284

== ENCOUNTER → 2024-08-31 19:19 | Outpatient (BNV) | payer MEDICAID, SELFPAY | PROVIDERS: Emergency Provider Emergency Medicine; PCP Family Medicine; Visit Provider Radiology Diagnostic Radiology | DX: R07.9 Chest pain, unspecified (principal); F10.20 Alcohol dependence, uncomplicated; W19.XXXA Unspecified fall, initial encounter | CPT/HCPCS: 70450; 71250 ==

== ENCOUNTER 2024-09-04 08:35 | Outpatient (REF) | payer MEDICAID, SELFPAY ==
--- OUTSIDE RECORDS SUMMARY | 2024-09-04 08:54 | XMS_ITS | Encounter Summary ---
Author Organization [employer] Address [address] [place] [address] Care Team Providers Care Education Consultant Name Role Phone [place], Nathalie ABDI Primary Care Provider [phone] Shannan Barrow RN Unavailable [phone] Lisbeth Johnson Unavailable Reason for Visit * Reason Onset Date Comments Dr. Lamas medication 06/20/2024 Encounter Details Date Type Department Care Team (Late st Contact Info) Description 06/20/2024 Telephone [facility] [address] [place], [place] [phone] Panchito Lamas DDS [address], [place] [phone] Dr. Lamas medication Social History Tobacco Use [...] Visit [facility] [address] [place] [address] Panchito Lamas DDS [address] [place] [address] 11/09/2024 1:00 PM EDT Office Visit [facility] [address] [place] [address] Seth, Zabrina, OD [address] [place] [address] 01/08/2025 10:00 AM EDT Office Visit [facility] [address] [place] [address] Adalberto Montgomeryaris [address] [place] [address] documented as of this encounter Visit Diagnoses Not on filedocumented in this encounter Additional Health Concerns Assessment Noted Time PHQ-9 Depression Total Score: 0 06/09/19 9:13 AM EST documented as of this encounter Care Teams Education Consultant Relationship Specialty Start Date End Date Nathalie Hsu MD [address] [place] [address] PCP - General Family Medicine 09/27/13 Shannan Barrow, RN [address] [place] [address] Registered Nurse 02/29/24 Lisbeth Johnson [address] [place] [address] Drive [address] [place] [address] Gastroenterology 03/15/24 Tonya Poole Chemistry AssociateRolled Oats Mill Operator 01/19/24 Sherin ([facility]) Registered Nurse 02/29/24 Marcos Verdin MD [place] [facility] [address] [place] [address] Cardiology 03/10/24 Omid Vincent Psychiatry 03/15/24 documented as of this encounter
== END 2024-09-04 08:36 | disposition home or self-care (01) ==
LOC: HO.HOSX 08:35
PROVIDERS: Visit Provider Physician Assistant
DX: Z13.89 Encounter for screening for other disorder (principal)

== ENCOUNTER 2024-09-14 11:27 | Outpatient (REF) | payer MEDICAID, SELFPAY | END 2024-09-14 11:28 | disposition home or self-care (01) | LOC: HO.HOSX 11:27 | PROVIDERS: Visit Provider Physician Assistant | DX: Z13.89 Encounter for screening for other disorder (principal) ==

== ENCOUNTER 2024-11-18 04:07 | Emergency (ER) | payer MEDICAID, SELFPAY ==
[2024-11-18 04:07] VITALS: BP 132/84; PULSE 89; O2SAT 93
[2024-11-18 04:14] VITALS: BP 111/68; PULSE 87; TEMP 36.8; O2SAT 91
[2024-11-18 04:15] VITALS: BMI 29.9
[2024-11-18 04:38] LABS: MANUAL DIFF FLAG NO
[2024-11-18 04:39] LABS: Hematocrit 44.2 % (42.0-52.0); Hemoglobin 15.7 g/dl (14.0-18.0); Imm Gran Abs Auto 0.10 X10*3/uL (0.00-0.03); Imm Gran Pct Auto 1.2 % (0.0-0.4); Lymphocytes Absolute Auto 2.4 X10*3/uL (1.2-4.9); Mean Corpuscular HGB Conc 35.5 g/dl (31.0-36.0); Mean Corpuscular Hemoglobin 33.3 pg (27.0-33.0); Mean Corpuscular Volume 93.8 fL (80.0-98.0); NRBC Abs Auto 0.000 X10*3/uL (0.0-0.012); NRBC Pct Auto 0.0 /100WBC (0.0-0.2); Platelet Count 269 X10*3/uL (160-400); Red Blood Count 4.71 X10*6/uL (4.60-5.80); White Blood Count 8.6 X10*3/uL (4.8-10.8)
--- OUTSIDE RECORDS SUMMARY | 2024-11-18 04:53 | XMS_ITS | Encounter Summary ---
Author Organization [employer] Address [address] [place] [address] Care Team Providers Care Corncob Pipe Supervisor Name Role Phone Aitkin, Nathalie ABDI Primary Care Provider [phone] Shannan Barrow RN Unavailable [phone] Lisbeth Johnson Unavailable Reason for Visit * Reason Onset Date Comments Dr. Lamas medication 06/20/2024 Encounter Details Date Type Department Care Team (Late st Contact Info) Description 06/20/2024 Telephone [facility] ADULT DENTAL [address] [place], [place] [phone] Panchito Lamas DDS [address] [place], [place] [phone] Dr. Lamas medication Social History Tobacco Use [...] Care Team (Late st Contact Info) Description 11/24/2024 1:30 PM EDT Office Visit [facility] MEDICINE [address] [place] [address] Renny Holloway MD [address] [place] [address] 12/20/2024 2:00 PM EDT Office Visit [facility] MEDICINE [address] [place] [address] Nathalie Hsu MD [address] [place] [address] 01/01/2025 9:00 AM EDT Office Visit [facility] OPTOMETRY [address] [place] [address] Seth, Zabrina, OD [address] [place] [address] 01/08/2025 10:00 AM EDT Office Visit [facility] ADULT DENTAL [address] [place] [address] Ulises, Chiquita [address] [place] [address] documented as of this encounter Visit Diagnoses Not on filedocumented in this encounter Additional Health Concerns Assessment Noted Time PHQ-9 Depression Total Score: 0 06/09/19 24 9:13 AM EST documented as of this encounter Care Teams Corncob Pipe Supervisor Relationship Specialty Start Date End Date Nathalie Hsu MD [address] [place] [phone] PCP - General Family Medicine 09/27/13 Shannan Barrow, KHAI [address] [place] [phone] Registered Nurse 02/29/24 Lisbeth Johnson [address] [place] [address] Drive [address] [place] [address] Gastroenterology 03/15/24 Tonya Poole [employer] M[employer]arry Equipment Operator 01/19/24 Sherin ([facility]) Registered Nurse 02/29/24 Marcos Verdin MD [facility] [address] [place] [address] Cardiology 03/10/24 Omid Vincent Psychiatry 03/15/24 documented as of this encounter
[2024-11-18 05:01] LABS: Alanine Aminotransferase 18 U/L (0-40); Albumin Level 4.1 g/dL (3.5-5.0); Alkaline Phosphatase 157 U/L (39-117); Anion Gap 23 (12-20); Aspartate Amino Transferase 37 U/L (5-37); Blood Urea Nitrogen 12 mg/dL (9-16); Calcium 9.0 mg/dL (8.4-10.2); Carbon Dioxide 19 mmol/L (22-29); Chloride 97 mmol/L (96-108); Creatinine Clr Calc Pharmacy 64.5; Estimated Glomerular Filt Rate > 60; Lipase 21 U/L (8-78); Potassium 4.0 mmol/L (3.3-5.1); Sodium 135 mmol/L (135-145); Total Protein 8.4 g/dL (6.5-8.0)
--- NOTE | 2024-11-18 05:40 | ED.GENADULT ---
HPI - General Adult General Chief complaint: General Medical Stated complaint: BODY PAIN,NAUSEA X2M PER EMS Time Seen by Provider: 11/18/24 05:29 Source: patient Mode of arrival: ambulatory Limitations: no limitations History of Present Illness ED Provider: Dr. Maxine Mac HPI narrative: Patient comes to the emergency room complaining of months of bilateral lower extremities and hands cramping. Patient states that today he has been vomiting. Patient admits that sometimes he drinks alcohol. Denies fever chills. Denies any falls. Patient also complaining of diffuse myalgias. Related Data Home Medications ?Medication ?Instructions ?Recorded ?Confirmed melatonin 5 mg tablet 2 tab PO BEDTIME PRN insomnia 10/18/20 01/23/24 atorvastatin 20 mg tablet 20 mg PO DAILY 11/18/20 01/23/24 blood pressure test kit-large #1 ea 11/18/20 02/09/23 lidocaine 5 % topical patch 1 patch topical DAILY 11/18/20 01/23/24 magnesium oxide 400 mg (241.3 mg 400 mg PO BID 11/18/20 01/23/24 magnesium) tablet pantoprazole 40 mg tablet,delayed 40 mg PO BID 11/18/20 01/23/24 release thiamine HCl (vitamin B1) 100 mg 100 mg PO DAILY 11/18/20 01/23/24 tablet olanzapine 5 mg tablet 1 tab PO BEDTIME 10/10/21 01/23/24 acetaminophen 500 mg tablet 500 mg PO BID PRN Mild Pain (Scale 05/11/22 01/23/24 Score 1-4) albuterol sulfate 90 mcg/actuation 2 puff inhalation Q4H PRN 05/11/22 01/23/24 aerosol inhaler (Ventolin HFA) Respiratory Distress buspirone 10 mg tablet 10 mg PO TID 05/11/22 01/23/24 sacubitril 24 mg-valsartan 26 mg 1 tab PO BID 06/12/22 01/23/24 tablet (Entresto) budesonide-formoterol HFA 160 2 puff inhalation BID 02/09/23 01/23/24 mcg-4.5 mcg/actuation aerosol inhaler (Symbicort) clopidogrel 75 mg tablet 75 mg PO DAILY 05/17/23 01/23/24 acamprosate 333 mg tablet,delayed 666 mg PO BID 09/15/23 01/23/24 release hydroxyzine pamoate 50 mg capsule 100 mg PO BEDTIME PRN insomnia 01/23/24 01/23/24 warfarin 5 mg tablet 5 mg PO DAILY 01/23/24 01/23/24 lactulose 10 gram/15 mL oral 30 ml PO TID 04/28/24 solution warfarin 10 mg tablet 10 mg PO DAILY 07/07/24 ferrous sulfate 325 mg (65 mg 325 mg PO QAM 07/28/24 iron) tablet,delayed release metoprolol succinate 25 mg 25 mg PO QAM 07/28/24 tablet,extended release 24 hr nicotine 14 mg/24 hr daily 1 patch topical QA 07/28/24 transdermal patch quetiapine 50 mg tablet 50 mg PO DAILY PRN 07/28/24 Previous Rx's ?Medication ?Instructions ?Recorded furosemide 40 mg tablet 40 mg PO DAILY #30 tabs 05/29/23 oxycodone 5 mg tablet 5 mg PO Q6H PRN pain #10 tabs 08/18/24 rifaximin 550 mg tablet (Xifaxan) 550 mg PO BID #60 tabs 09/14/24 magnesium oxide 500 mg capsule 500 mg PO DAILY #30 caps 11/18/24 Allergies Allergy/AdvReac Type Severity Reaction Status Date / Time lorazepam (From ATIVAN) AdvReac Severe OPPOSITE Verified 11/18/24 04:20 EFFECT PSYCOTIC EFECTS Review of Systems Review of Systems: Constitutional : No Weight loss, No Fever, No Chills, No Night Sweats, No Fatigue, No Malaise ENT/Mouth : No Hearing loss, No Ear Pain, No Nasal Congestion, No Sinus Pain, No Hoarseness, No sore throat, No Rhinorrhea, No Swallowing Difficulty Eyes: No Eye Pain, No Swelling, No Redness, No Foreign Body, No Discharge, No Vision Changes Cardiovascular : No Chest Pain, No SOB, No Dyspnea on Exertion, No Orthopnea, No Edema, No Palpitations Respiratory : No Cough, No Sputum, No Wheezing, No Smoke Exposure, No Dyspnea Gastrointestinal : No Nausea, No Vomiting, No Diarrhea, No Constipation, No abdominal Pain, No Hematochezia, No Melena Genitourinary : no irregular bleeding, No Dysuria, No Urinary Frequency, No Hematuria, No Urinary Incontinence, No Urgency, No Flank Pain, No Urinary Flow Changes, No Hesitancy Musculoskeletal : No joint pain, No Myalgias, No Joint Swelling Skin : No Skin Lesions, No rash Neuro : No Weakness, No Numbness, No Paresthesias, No Loss of Consciousness, No Dizziness, No Headache, complaining of myalgias and intermittent cramping of hands and legs 4 month Psych : No Anxiety/Panic, No Depression, No SI/HI/AH/VH, No Social Issues, Heme/Lymph: No Bruising, No Bleeding,No Lymphadenopathy Endocrine : No Polyuria, No Polydipsia, No Temperature Intolerance [facility] Past Medical History Medical History Sepsis Rhabdomyolysis EDGAR (acute kidney injury) Supratherapeutic INR Fall Acute hyponatremia Intracranial hemorrhage Coronary artery disease Chronic systolic CHF (congestive heart failure) Hypertension Short-segment Harrell's esophagus Pacemaker Skull fracture Alcoholic liver disease Cocaine abuse Alcohol abuse Surgical History Aortic valve replaced S/P CABG (coronary artery bypass graft) H/O aortic valve replacement History of esophagogastroduodenoscopy (EGD) Social History Social History Household Members: None Housing: Apartment Do you presently have 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) Alcohol intake: current Alcohol intake frequency: a few times a week Alcohol type: beer Comment: pt refused, to have assistance with ambulation, chair and bed alarm Patient Tobacco Use Status: Current everyday Tobacco user Tobacco use type: Cigarette Cigarette Packs Per Day: 1 Cigarettes Per Day: 20.0 Smoked in Last 30 Days: Yes Second Hand Smoke Exposure: No Use of substances other than those prescribed or required for medical reasons: No Substance Use Type: Marijuana Advance Directives: Yes Advance Directives on File: Yes Advance Directives Date on File: 10/11/21 service: No Current occupational status: unemployed Physical Exam ED Exam Exam: Appearance: Alert. Oriented X3. No acute distress. Eyes: Pupils equal, round and reactive to light. ENT: Pharynx normal. Neck: Normal inspection. Neck supple. No lymph nodes noted. No crepitus CVS: Normal heart rate and rhythm. Pulses normal. Normal S1 and S2 Respiratory: No respiratory distress. Breath sounds normal. No Wheezing. No rales Abdomen: Soft and nontender. No rigidity. No distention. Skin: Skin warm and dry. Normal skin color. Normal skin turgor. Extremities: No lower extremity edema. No Lacerations. No Rash Neuro: Oriented X 3. No motor deficit. No sensory deficit. Moving all extremities. No slurred speech. CN 2 through 12 grossly intact Psych: calm, cooperative, normal affect Vital Signs: Vital Signs - 24 hr 11/18/24 04:14 11/18/24 06:17 Temperature 98.3 F 98.1 F Pulse Rate 87 81 Blood Pressure 111/68 128/74 Pulse Oximetry 91 L 93 Oxygen Delivery Method Room Air Room Air BMI result Body Mass Index 29.9 Course Course Course Narrative: Patient reports myalgias or lower. Denies any fever or chills, complaining of intermittent muscle spasms but not at this time. Denies any acute symptoms alert and chronic pain for several months all over the body. All of patient's labs pending Reevaluation(s) Reevaluation #1: I, Dr. Cleaning have take over the care of this patient, I reviewed pertinent blood work and imaging, re-evaluated the patient when appropriate. We will re-evaluate the patient, we will anticipate discharging after magnesium infusion Time: 07:17 Medications Administered Discontinued Medications Generic Name Dose Route Start Last Admin Trade Name Freq PRN Reason Stop Dose Admin Baclofen 10 mg 11/18/24 05:41 11/18/24 07:01 Baclofen 10 Mg Tablet PO 11/18/24 05:42 10 mg ONCE ONE Administration Magnesium Sulfate 2 gm in 50 mls @ 150 mls/hr 11/18/24 06:31 11/18/24 07:22 Magnesium Sulfate/H2o IV 11/18/24 06:50 Infused ONCE ONE Infusion Medical Decision Making Medical Decision Making [facility] Narrative: My interpretation of EKG: Atrial sensed ventricular paced rhythm, heart rate 82, no ST segment depression or elevation, QTC 535 - patient receiving magnesium My interpretation of labs: No significant abnormality patient's hematology , chemistry shows a magnesium of 1.4, CPK normal, lipase normal. Patient's magnesium is low. We will go ahead and replete magnesium IV. His likely that patient may be having cramps secondary to this electrolyte deficiency. Afterwards, wants magnesium is corrected, patient may be discharged home. Magnesium level pending, sign-out given to my colleague Dr. Cleaning Differential Diagnosis Differential Diagnoses: The differential diagnosis associated with the presentation includes (Hypomagnesemia, hypokalemia, alcohol abuse) Admission/Observation Consideration of admission/observation: Escalation of care including admission/observation considered (Given patient's electrolyte imbalance, observation was considered) Lab Data MDM Lab Attestation statement: I reviewed the patient's lab results. 11/18/24 04:27 11/18/24 04:27 Labs: Lab Results 11/18/24 11/18/24 11/18/24 Range/Units 04:27 06:16 06:17 WBC 8.6 (4.8-10.8) X10*3/uL RBC 4.71 (4.60-5.80) X10*6/uL Hgb 15.7 (14.0-18.0) g/dl Hct 44.2 (42.0-52.0) % MCV 93.8 (80.0-98.0) fL MCH 33.3 H (27.0-33.0) pg MCHC 35.5 (31.0-36.0) g/dl RDW 15.0 (11.0-16.0) % Plt Count 269 (160-400) X10*3/uL MPV 9.4 (9.4-12.4) fL Immature Gran % (Auto) 1.2 H (0.0-0.4) % Neut % (Auto) 59.2 (45-73) % Lymph % (Auto) 27.8 (20-40) % Moca % (Auto) 9.5 (2-11) % Eos % (Auto) 1.5 (0-4) % Baso % (Auto) 0.8 (0-2) % Lymph # (Auto) 2.4 (1.2-4.9) X10*3/uL Moca # (Auto) 0.8 (0.1-1.2) X10*3/uL Eos # (Auto) 0.1 (0.0-0.4) X10*3/uL Baso # (Auto) 0.1 (0.0-0.2) X10*3/uL Abs Immat Gran (auto) 0.10 H (0.00-0.03) X10*3/uL Absolute Neuts (auto) 5.1 (2.0-8.3) x10*3/uL Absolute Nucleated RBC 0.000 (0.0-0.012) X10*3/uL Nucleated RBC % (auto) 0.0 (0.0-0.2) /100WBC PT 33.1 H (10.9-12.4) SEC INR 2.9 H (0.9-1.1) Sodium 135 (135-145) mmol/L Potassium 4.0 (3.3-5.1) mmol/L Chloride 97 (96-108) mmol/L Carbon Dioxide 19 L (22-29) mmol/L Anion Gap 23 H (12-20) BUN 12 (9-16) mg/dL Creatinine 1.19 (0.5-1.4) mg/dL Estim Creat Clear Calc 64.5 Estimated GFR > 60 Random Glucose 99 (60-115) mg/dL Calcium 9.0 (8.4-10.2) mg/dL Magnesium 1.4 L* (1.6-2.6) mg/dL Total Bilirubin 0.7 (0.0-1.0) mg/dL AST 37 (5-37) U/L ALT 18 (0-40) U/L Alkaline Phosphatase 157 H (39-117) U/L Total Creatine Kinase 120 (38-174) U/L Total Protein 8.4 H (6.5-8.0) g/dL Albumin 4.1 (3.5-5.0) g/dL Lipase 21 (8-78) U/L Urine Color Yellow Urine Appearance Clear Urine pH 5.5 (5.0-9.0) Ur Specific [place] 1.015 (1.005-1.025) Urine Protein 100 (2+) H (Neg-Trace) mg/dL Urine Glucose (UA) Negative (Negative) mg/dL Urine Ketones Negative (Negative) mg/dL Urine Blood Small (1+) H (Negative) Urine Nitrite Negative (Negative) Ur Leukocyte Esterase Negative (Negative) Urine RBC 0-2 (0-2) /HPF Urine WBC 0-5 (0-5) /HPF Ur Squamous Epith Cells 0-2 (0-2) /HPF Urine Bacteria None Seen (None Seen) Hyaline Casts 6-10 (0-2) /LPF COVID-19 (VICTOR M) Negative (Negative) COVID-19 Clin Com See Note Influenza Type A (PRATIMA) Negative (Negative) Influenza Type B (PRATIMA) Negative (Negative) Influenza A & B Note See Note 11/18/24 Range/Units 07:15 WBC (4.8-10.8) X10*3/uL RBC (4.60-5.80) X10*6/uL Hgb (14.0-18.0) g/dl Hct (42.0-52.0) % MCV (80.0-98.0) fL MCH (27.0-33.0) pg MCHC (31.0-36.0) g/dl RDW (11.0-16.0) % Plt Count (160-400) X10*3/uL MPV (9.4-12.4) fL Immature Gran % (Auto) (0.0-0.4) % Neut % (Auto) (45-73) % Lymph % (Auto) (20-40) % Moca % (Auto) (2-11) % Eos % (Auto) (0-4) % Baso % (Auto) (0-2) % Lymph # (Auto) (1.2-4.9) X10*3/uL Moca # (Auto) (0.1-1.2) X10*3/uL Eos # (Auto) (0.0-0.4) X10*3/uL Baso # (Auto) (0.0-0.2) X10*3/uL Abs Immat Gran (auto) (0.00-0.03) X10*3/uL Absolute Neuts (auto) (2.0-8.3) x10*3/uL Absolute Nucleated RBC (0.0-0.012) X10*3/uL Nucleated RBC % (auto) (0.0-0.2) /100WBC PT (10.9-12.4) SEC INR (0.9-1.1) Sodium (135-145) mmol/L Potassium (3.3-5.1) mmol/L Chloride (96-108) mmol/L Carbon Dioxide (22-29) mmol/L Anion Gap (12-20) BUN (9-16) mg/dL Creatinine (0.5-1.4) mg/dL Estim Creat Clear Calc Estimated GFR Random Glucose (60-115) mg/dL Calcium (8.4-10.2) mg/dL Magnesium 3.0 H (1.6-2.6) mg/dL Total Bilirubin (0.0-1.0) mg/dL AST (5-37) U/L ALT (0-40) U/L Alkaline Phosphatase (39-117) U/L Total Creatine Kinase (38-174) U/L Total Protein (6.5-8.0) g/dL Albumin (3.5-5.0) g/dL Lipase (8-78) U/L Urine Color Urine Appearance Urine pH (5.0-9.0) Ur Specific [place] (1.005-1.025) Urine Protein (Neg-Trace) mg/dL Urine Glucose (UA) (Negative) mg/dL Urine Ketones (Negative) mg/dL Urine Blood (Negative) Urine Nitrite (Negative) Ur Leukocyte Esterase (Negative) Urine RBC (0-2) /HPF Urine WBC (0-5) /HPF Ur Squamous Epith Cells (0-2) /HPF Urine Bacteria (None Seen) Hyaline Casts (0-2) /LPF COVID-19 (VICTOR M) (Negative) COVID-19 Clin Com Influenza Type A (PRATIMA) (Negative) Influenza Type B (PRATIMA) (Negative) Influenza A & B Note Critical Care Time Critical Care Time Critical Care Time: Yes Total Critical Care Time: 45 Attestation: I have personally provided critical care time. Time includes review of lab data, radiology results, discussion with consultants, and monitoring for potential decompensation. Intervention performed as documented. Discharge Plan Discharge Clinical Impression: Cramp in muscle, Hypomagnesemia Patient Disposition: Home, Self-Care Instructions: Hypomagnesemia (ED), Muscle Cramp (ED) Additional Instructions: Please follow-up with your primary care physician , continue taking magnesium as prescribed, your magnesium levels were low, these were repleted with good effect, versus a workup has been reassuring. You feel or drinking more than 5 alcoholic drinks a week please adjust your alcohol intake as these symptoms we will get worse. If you have any worsening or new symptoms, please return to the emergency room or call 911 Prescriptions: New magnesium oxide 500 mg capsule 500 mg PO DAILY Qty: 30 0RF No Action Xifaxan 550 mg tablet 550 mg PO BID Qty: 60 3RF melatonin 5 mg tablet 2 tab PO BEDTIME PRN (Reason: insomnia) olanzapine 5 mg tablet 1 tab PO BEDTIME acetaminophen 500 mg Tablet 500 mg PO BID PRN (Reason: Mild Pain (Scale Score 1-4)) buspirone 10 mg Tablet 10 mg PO TID albuterol sulfate [Ventolin HFA] 90 mcg/actuation Hfa Aerosol Inhaler 2 puff INHALATION Q4H PRN (Reason: Respiratory Distress) acamprosate 333 mg tablet,delayed release (DR/EC) 666 mg PO BID hydroxyzine pamoate 50 mg capsule 100 mg PO BEDTIME PRN (Reason: insomnia) warfarin 5 mg tablet 5 mg PO DAILY budesonide-formoterol [Symbicort] 160-4.5 mcg/actuation HFA aerosol inhaler 2 puff inhalation BID clopidogrel 75 mg tablet 75 mg PO DAILY furosemide 40 mg Tablet 40 mg PO DAILY Qty: 30 0RF Protocol: Hold for SBP< HOLD for SBP < : 90 oxycodone 5 mg tablet 5 mg PO Q6H PRN (Reason: pain) Qty: 10 0RF Rx Instructions: Partial Fill upon patient request. pantoprazole 40 mg tablet,delayed release (DR/EC) 40 mg PO BID magnesium oxide 400 mg (241.3 mg magnesium) tablet 400 mg PO BID thiamine HCl (vitamin B1) 100 mg tablet 100 mg PO DAILY atorvastatin 20 mg tablet 20 mg PO DAILY (DME) blood pressure test kit-large Kit See Rx Instructions .ROUTE DIRECTED Qty: 1 Rx Instructions: As directed lidocaine 5 % adhesive patch,medicated 1 patch topical DAILY Protocol: Apply to: Apply to: AFFECTED AREA Entresto 24-26 mg tablet 1 tab PO BID lactulose 10 gram/15 mL solution 30 ml PO TID quetiapine 50 mg tablet 50 mg PO DAILY PRN nicotine 14 mg/24 hr patch 24 hour 1 patch topical QAM metoprolol succinate 25 mg tablet extended release 24 hr 25 mg PO QAM ferrous sulfate 325 mg (65 mg iron) tablet,delayed release (DR/EC) 325 mg PO QAM warfarin 10 mg tablet 10 mg PO DAILY Print Language: Greek
[2024-11-18 06:06] LABS: Magnesium 1.4 mg/dL (1.6-2.6)
[2024-11-18 06:17] VITALS: BP 128/74; PULSE 81; TEMP 36.7; O2SAT 93
[2024-11-18 06:32] LABS: Appearance Urine Clear; Glucose Urine UA Negative (Negative); PH 5.5 (5.0-9.0); Specific Gravity - Urine 1.015 (1.005-1.025); UMIC TRIGGER UACC YES
--- NOTE | 2024-11-18 06:33 | ECG_ITS ---
Test Reason : HYPOMAGNESIUM Blood Pressure : */* mmHG Vent. Rate : 82 BPM Atrial Rate : 82 BPM P-R Int : 152 ms QRS Dur : 188 ms QT Int : 458 ms P-R-T Axes : 25 69 156 degrees QTcB Int : 535 ms Atrial-sensed ventricular-paced rhythm Abnormal ECG When compared with ECG of 18-Aug-2024 09:43, No significant change was found Referred By: Maxine Mac Electronically Signed By: Roosevelt Woodruff
[2024-11-18 06:54] LABS: INTERNATIONAL NORM RATIO 2.9 (0.9-1.1); Prothrombin Time 33.1 SEC (10.9-12.4)
[2024-11-18] MEDS: Magnesium Sulfate/H2O 2 GM/50 ML PIGGYBACK IV (07:02)
[2024-11-18 07:03] LABS: IDNOW Serial# 58CA691E
[2024-11-18 07:04] LABS: COVID-19 Test Negative (Negative)
[2024-11-18 07:04] LABS: IDNOW Serial# 55D5AD1C; Influenza B2 Negative (Negative)
[2024-11-18 07:32] LABS: Magnesium 3.0 mg/dL (1.6-2.6)
[2024-11-18 08:01] VITALS: BP 131/76; PULSE 77; RESP 18; TEMP 36.7; O2SAT 94
== END 2024-11-18 08:02 | disposition home or self-care (01) ==
PROVIDERS: Emergency Medicine; Emergency Provider Emergency Medicine
DX: E83.42 Hypomagnesemia (principal); M79.10 Myalgia, unspecified site; I25.10 Atherosclerotic heart disease of native coronary artery without angina pectoris; I11.0 Hypertensive heart disease with heart failure; I50.22 Chronic systolic (congestive) heart failure; K22.70 Barrett's esophagus without dysplasia; K70.9 Alcoholic liver disease, unspecified; F17.210 Nicotine dependence, cigarettes, uncomplicated; F12.90 Cannabis use, unspecified, uncomplicated; Z79.01 Long term (current) use of anticoagulants; Z95.0 Presence of cardiac pacemaker; Z95.2 Presence of prosthetic heart valve; Z95.1 Presence of aortocoronary bypass graft
CPT/HCPCS: 36415; 80053; 81001; 82550; 83690; 83735; 85025; 85610; 87502; 87635; 93005; 96365; 99284; 99285; J3475

== ENCOUNTER → 2024-11-18 06:33 | Outpatient (BNV) | payer MEDICAID, SELFPAY | PROVIDERS: Emergency Provider Emergency Medicine; Visit Provider Internal Medicine Cardiovascular Disease | DX: I49.8 Other specified cardiac arrhythmias (principal) | CPT/HCPCS: 93010 ==

== ENCOUNTER 2024-11-29 10:40 | Outpatient (REF) | payer MEDICAID, SELFPAY ==
--- OUTSIDE RECORDS SUMMARY | 2024-11-24 13:30 | XMS_ITS | Encounter Summary ---
Author Organization [employer] Address [address] [place] [address] Care Team Providers Care Logistics Program Manager Name Role Phone Nathalie Hsu MD Primary Care Provider [phone] Shannan Barrow RN Unavailable [phone] Lisbeth Johnson Unavailable Reason for Visit * Reason Comments AUD F/U Encounter Details Date Type Department Care Team (Late st Contact Info) Description 11/24/2024 1:30 PM EDT Office Visit [facility] [address] [place] [address] Renny Holloway MD [address] [place] [address] Alcohol use disorder, severe, dependence (CMS/HCC) (Primary Dx); Nausea and vomiting, unspecified vomiting type; Hypomagnesemia Social History Tobacco Use Types Packs/Day Years [...] Date Recorded Patient Health Questionnaire-9 Score 0 09/20/2024 Patient Health Questionnaire-9 Score 0 09/20/2024 Last PHQ-9: Questionnaire Data Not on file 0 09/20/2024 Housing Stability Answer Date Recorded What is your housing situation today? I am not s ure 09/20/[address] you li ve. Do you have problems with any of the following? None of the above 09/20/2024 Food Insecurity Answer Date Recorded Within the past 12 months, y ou worried that your food would run out before you got money to buy more: Never True 09/20/2024 Within the past 12 months,th e food you bought just didn't last and you didn't have enough money to get more: Never True Transportation Answer Date Recorded In the past 12 months, has l ack of transportation kept you from medical appts, meetings, work or from getting things needed for daily living? No 09/20/2024 Utilities Answer Date Recorded In the past 12 months, has t he electric, gas, 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 threatened to shut off services in your home? No 09/20/2024 Depression Answer Date Recorded Patient Health Questionnaire-2 Score 0 09/20/2024 Internet Access Answer Date Recorded Internet Access Q1 No 09/20/2024 Internet Access Q2 Not on file 09/20/2024 Sex and Gender Information Value Date Recorded Sex Assigned at Male 02/02/2022 10:17 AM EDT Legal Sex Male 10:17 AM EDT Gender Identity Male 02/02/2022 10:17 AM EDT Sexual Orientation Straight 02/02/2022 10 :17 AM EDT documented as of this encounter Last Filed Vital Signs Vital Sign Reading Time Taken Comments Blood Pressure 139/77 11/24/2024 1:24 PM EDT Pulse 87 11/24/2024 1:24 PM EDT Temperature 36.6 C (97.9 F) 11/24/2024 1:24 PM EDT Respiratory Rate 20 11/24/2024 1:24 PM EDT Oxygen Saturation - - Inhaled Oxygen Concentration - - Weight 83 kg (183 lb) 11/24/2024 1:24 PM EDT Height - - Body Mass Index 29.54 03/10/2024 10:18 AM EST documented in this encounter Progress Notes * Renny Holloway MD - 11/24/2024 1:30 PM EDT AUD PHYSICIAN VISIT 11/24/2024 Patient with AUD presents for a follow-up. Had another ER visit (11/18/2024) due generalized muscle cramps. Found to have low Magnesium at 1.4. Received IV supplementation of Magnesium (level went up to 3.0). CPK within normal at 120 (range 38-174 U/L). Discharged home with Magnesium Oxide 500mg daily. States he was not able to tolerate the medication beyond 3 days due to vomiting. States his muscle cramps have somewhat improved. Admits to drinking alcohol 3 days ago with 3 beers. Currently has a scheduled appointment with PCP on 11/29/2024. Would like to continue with Acamprosate for AUD as hefeels it has helped with decreased alcohol consumption. He is currently on anticoagulation due to AVR. Denies any unexplained bleeding or bruising symptoms. Agrees to checking his lab work 1 day prior to his appointment with PCP. Previous HPI: Patient with AUD here for a follow-up. Complicated medical history that includes cirrhosis, anti-coagulated with coumadin due to aortic valve replacement, CAD s/p PCI 2020, HFrecEF, hx complete heartclock, s/p dual chamber pacemaker implantation 2005 followed by extrusion resulting in reimplantation 2028, and COPD, along with severe alcohol dependence. Recent hospitalization 1 month ago due to altered mental status, hypoxia, pulmonary edema, heart failure, and RUL PNA. Admitted for management of acute respiratory failure. Not requiring supplementalO2 at this time after the antibiotic treatment and diuresis. Patient often minimizes his alcohol use. States he consumes 2-3 Coors Light every 2-3 days, which is not corroborated by his family. Patient would like to try a higher dose of Acamprosate. Currently taking Acamprosate 666mg PO BID. Previous HPI: Patient was previously hospitalized at [facility] in 02/2024 with acute liver failure with elevated ETOH level. AST/ALT were up to 9380/5465. Had waxing and waning hapatic encephalopahty. Also developed EDGAR with peak Cr at 3.68 with hypernatremia. These values have markedly improved. Received 2 unitsof pRBC during his hospitalization. Also was treated for aspiration PNA. His recent labs (04/14/2024) showed BUN/Cr 20/1.16, N+ 138, AST/ALT 35/28, Tbili 1.6 (was up to 14.7), H/H 13.6/40.6, and PLT 271. Also had Abdominal U/S (04/14/2024) which showed mild diffusely increased hepatic parenchymal echogenicity, suggestive of mild steatosis; no focal suspicious lesion; no biliary abnormality; mild adenomyomatosis of the gallbladder; 0.8 cm simple cyst right kidney. He met with GI recently for his cirrhosis follow up. Currently continuing with Lactulose. CT (01/2024) at [facility] documented to have no focal liver lesion. Currently on anticoagulation for a mechanical valve. Admits to drinking, but significantly reduced the amount to 4-5 beers since his hospital discharge. States he can have 1-2 weeks of sobriety, in-between his drinks. Would like to continue with Acamprosate Rx. Also smokes 04/07 - 04/06 PPD. Interested in Nicotine substitute. He started Acamprosate Rx in 06/09/2023. States [...] Has VNA to help managing medications daily BP 139/77 (BP Location: Left arm, Patient Position: Sitting, BP Cuff Size: Adult) Pulse 87 Temp97.9 ??F (36.6 ??C) (Oral) Resp 20 Wt 183 lb (83 kg) BMI 29.54 kg/m?? Physical Exam Pulmonary: Effort: Pulmonary effort is normal. Neurological: Mental Status: He is alert. Psychiatric: Mood and Affect: Mood normal. Behavior: Behavior normal. Omid was seen today for aud f/u. Diagnoses and all orders for this visit: Alcohol use disorder, severe, dependence (CMS/HCC) (Primary) Nausea and vomiting, unspecified vomiting type - Basic Metabolic Panel; Future - Magnesium; Future Hypomagnesemia - Basic Metabolic Panel; Future - Magnesium; Future Patient with AUD for F/U Still drinks alcohol, but report significant reduction in use and cravings since starting Acamprosate Suspect underreporting his alcohol use Would like to try a higher dose of Acamprosate (Rx for 666mg PO TID sent) Improving lab values (AST/ALT/PLT/BILI) Recent ER visit due to low Mg (unable to tolerate Rx Magnesium due to vomiting) Will check Mg level and BMP Previous Abdominal U/S showed mild diffusely increased hepatic parenchymal echogenicity, suggestiveof mild steatosis and without focal suspicious lesions [...] an event of relapse; alcohol-free sprit/beer recommended and AA support recommended Nicotine patch also prescribed for his 04/07 - 1 PPD tobacco use; encourage tobacco cessation Indications for ER and inpatient detox reviewed Advised to contact the clinic with any worsening symptoms Follow-up in 1 month This information has been disclosed to you [...] Care Team (Late st Contact Info) Description 12/20/2024 2:00 PM EDT Office Visit [facility] [address] [place] [id number] Nathalie Hsu MD [address] [place] [phone] 01/01/2025 9:00 AM EDT Office Visit [facility] [address] [place] [address] Seth, Zabrina, OD [address] [place] [address] 01/08/2025 10:00 AM EDT Office Visit [facility] [address] [place] [address] Ulises, Chiquita [address] [place] [address] 02/16/2025 1:15 PM EST Office Visit [facility] [address] [place] [address] Renny Holloway MD [address] [place] [id number] Scheduled Orders Name Type Priority Associated Diagnoses Orde r Schedule Basic Metabolic Panel Lab Routine Nausea and vomiting, unspecified vomiting type Hypomagnesemia Expected: 11/24/2024 (Approximate), Expires: 11/24/2025 Magnesium Lab Routine Nausea and vomiting, unspecified vomiting type Hypomagnesemia Expected: 11/24/2024, Expires: 11/24/2025 documented as of this encounter Visit Diagnoses Diagnosis Alcohol use disorder, severe, dependence (CMS/HCC)- Primary Nausea and vomiting, unspecified vomiting type Hypomagnesemia Disorders of magnesium metabolism documented in this encounter Additional Health Concerns Assessment Noted Time PHQ-9 Depression Total Score: 0 09/21/19 25 3:24 PM EDT documented as of this encounter Care Teams Logistics Program Manager Relationship Specialty Start Date End Date Nathalie Hsu MD [address] [place] [address] PCP - General Family Medicine 09/27/13 Shannan Barrow, RN [address] [place] [address] Registered Nurse 02/29/24 Lisbeth Johnson [address] [place] [address] [address] [place] [address] Gastroenterology 03/15/24 Tonya Poole Service Technician [employer] 01/19/24 Sherin ([facility]) Registered Nurse 02/29/24 Marcos Verdin MD [facility] [address] [place] [address] Cardiology 03/10/24 Omid Vincent Psychiatry 03/15/24 documented as of this encounter
--- OUTSIDE RECORDS SUMMARY | 2024-11-29 11:00 | XMS_ITS | Encounter Summary ---
Author Organization [facility] Address [address] [place] [address] Care Team Providers Care Lens Cutter Name Role Phone Nathalie Hsu MD Primary Care Provider [phone] Shannan Barrow RN Unavailable [phone] Lisbeth Johnson Unavailable Reason for Visit * Reason Comments follow up [facility] Encounter Details Date Type Department Care Team (Latest Contact Info) Description 11/29/2024 11:00 AM EDT Office Visit [facility] [address], [place] [id number] Nathalie Hsu MD [address], [place] [id number] Hypomagnesemia (Primary Dx); Alcohol use disorder, severe, dependence (CMS/HCC); Alcoholic liver disease (CMS/HCC); Anticoagulated on Coumadin; Cardiomyopathy, unspecified type (CMS/HCC); History of prosthetic heart valve; Tobacco dependence Social History Tobacco Use Types [...] Sign Reading Time Taken Comments Blood Pressure 122/86 11/29/2024 11:01 AM EDT Pulse 80 11/29/2024 11:01 AM EDT Temperature 37.2 C (98.9 F) 11/29/2024 11:01 AM EDT Respiratory Rate 20 11/29/2024 11:01 AM EDT Oxygen Saturation 95% 11/29/2024 11:01 AM EDT Inhaled Oxygen Concentration - - Weight 83.3 kg (183 lb 9.6 oz) 11/29/2024 11:01 AM EDT Height - - Body Mass Index 29.63 03/10/2024 10:18 AM EST documented in this encounter Progress Notes * Nathalie Hsu MD - 11/29/2024 11:00 AM EDT Shamar Anne is a 64 y.o. male with past medical history of severe alcohol dependence with regular hospitalizations and ER visits, history of withdrawal seizures, cirrhosis, anti-coagulated with coumadindue to aortic valve replacement, CAD s/p PCI 2020, HFrecEF, hx complete heart cbock, s/p dual chambe r pacemaker implantation 2005 followed by extrusion resulting in reimplantation 2028, and COPD who presents to the office today here follow magnesium follow up. He did not get his labs done prior to this visit but states he will get them now . ER visit (11/18/2024) due generalized muscle cramps. Found to have low Magnesium at 1.4. Received IVsupplementation of Magnesium (level went up to 3.0). CPK within normal at 120 (range 38-174 U/L). Discharged home with Magnesium Oxide 500mg daily. States he was not able to tolerate the medication beyond 3 days due to vomiting. States his muscle cramps have somewhat improved. Admits to drinking alcohol 3 beers. Alcohol use greatly improved with Acamprosate via [facility]. Other recent hospitalizations [facility] (09/08/24-09/11/24) Patient with complex medical history presented at family request due to concern they were more confused and purchasing substances illicitly, including sleeping medications. On admission, found to be hypoxic to the high 80s requiring LFNC. CXR concerning for pulmonary edema and developing RUL PNA. Admitted for management of acute hypoxic respiratory failure attributed to HF exacerbation and suspected bacterial PNA. AMS resolved. O2 requirement resolved on empiric abx and diuresis. Patient to continue on Augmentin and doxycycline for a total of 5 day course. Course complicated by supra therapeutic INR then sub therapeutic INR. Patient to follow up with coumadin clinic. Discharged home. Medication changes: Added: Augmentin 875-125 mg twice a day. Doxycycline hyclate 100 mg twice a day. Changed: Warfarin to be continued as 5 mg once daily until f/u with INR clinic. Social History Tobacco: approximately one pack per day Drugs: none Alcohol: Yes, 2-3 beers a day. Sexuality: Denies current sexual activity Suicide/Depression: The patient denies any present symptoms of depression or anxiety. Review of Systems Constitutional: Negative for fatigue, fever and unexpected weight change. Respiratory: Negative for cough and shortness of breath. Cardiovascular: Negative for chest pain. Gastrointestinal: Negative for abdominal pain. Genitourinary: Negative for difficulty urinating. Current Medications[1] Allergies[2] Medical History[3] Surgical History[4] Family History[5] Objective Visit Vitals BP 122/86 (BP Location: Left arm, Patient Position: Sitting, BP Cuff Size: Adult) Pulse 80 Temp 98.9 ??F (37.2 ??C) (Oral) Resp 20 Wt 183 lb 9.6 oz (83.3 kg) SpO2 95% BMI 29.63 kg/m?? Smoking Status Every Day BSA 1.97 m?? Physical Exam Constitutional: Appearance: Normal appearance. HENT: Right Ear: Tympanic membrane normal. Left Ear: Tympanic membrane normal. Nose: Nose normal. Mouth/Throat: Pharynx: Oropharynx is clear. Eyes: Extraocular Movements: Extraocular movements intact. Pupils: Pupils are equal, round, and reactive to light. Cardiovascular: Rate and Rhythm: Normal rate and regular rhythm. Heart sounds: Normal heart sounds. Comments: Clicking of heart valve. Pulmonary: Effort: Pulmonary effort is normal. Breath sounds: Normal breath sounds. No wheezing. Abdominal: General: Abdomen is flat. Palpations: Abdomen is soft. There is no fluid wave, hepatomegaly or splenomegaly. Tenderness: There is no abdominal tenderness. Comments: No caput medusa or ascites Musculoskeletal: General: Normal range of motion. Right lower leg: No edema. Left lower leg: No edema. Skin: General: Skin is warm and dry. Comments: Livido reticularis No jaundice No scleral icterus + dupuytren contracture Neurological: General: No focal deficit present. Mental Status: He is alert. Psychiatric: Mood and Affect: Mood normal. Behavior: Behavior normal. Assessment & Plan Hypomagnesemia ER visit (11/18/2024) due generalized muscle cramps. Found to have low Magnesium at 1.4. Received IVsupplementation of Magnesium (level went up to 3.0). CPK within normal at 120 (range 38-174 U/L). Discharged home with Magnesium Oxide 500mg daily. States he was not able to tolerate the medication beyond 3 days due to vomiting. He did not get lab drawn but will do so 11/29/24. If low will restart a different magnesium. Alcohol use disorder, severe, dependence (CMS/HCC) Pt with long history of severe alcohol dependence with multiple hospitalizations, history of withdrawal, history of withdrawal seizures, cirrhotic liver and dangerous supratheraputic INRs. Risks discussed at each visit. -continue thiamine and folate -continue with alcohol use disorder clinic -continue with therapist and psychiatrist -continue Acamprosate 333 mg 2 tabs BID started 06/09/23 Alcoholic liver disease (CMS/HCC) Lab Results Component Value Date AST 20 08/04/2024 AST 31 07/14/2024 AST 21 08/10/2022 ALT 20 08/04/2024 ALT 37 07/14/2024 ALT 20 08/10/2022 ALT 22 08/22/2020 TOTALBILIRUB 0.5 08/04/2024 TOTALBILIRUB 0.6 07/14/2024 INR 2.10 (L) 11/28/2024 INR 1.9 (H) 07/14/2024 PLT 246 07/14/2024 PLT 258 07/14/2024 CREATININE 1.40 08/04/2024 CREATININE 1.21 10/21/2021 CREATININE 1.21 10/21/2021 NA 139 08/04/2024 MELD 3.0: 12 at 07/14/2024 1:49 PM [...] diet discussed. Avoid hepatotoxic agents. -Followed by: Complaint Operator, Dr. Johnson: Note from 07/28/24 reviewed -Again strongly reviewed strict abstinence from etOH which hte pt has maintained so far. However, he unfortunately continues to smoke. Strongly counseled re that as well and will be referred to comprehensive care hart. -In terms of sarcopenia frailty, encouraged daily [...] add a night time snack such as sinhala yogurt, PB etc - Manager Car referral - CLose follow up in 2 weeks -GI note 04/28/24 - Clarified need for CCC and Manager Car referrals - Due for EGD/colo - needs repeat echo ordered to follow up on cardiomyopathy prev EF 20-25% - Will also confirm his OP color checker roving or yarn for clearance - Pt reminded to bring home meds list - Repeat MELD labs in [address] Johnson 07/28/24 MELD 14 on most recent labs. Discussed that can be cautiously optimistic re some recuperation of liver function however if he relapses on etOH a repeat ACLF episode is inevitable. He was counseled on strict abstinence from etOH.Recently established care with Dr Holloway at [facility] for substance use disorder recovery and support. - Clarified need for CCC and Manager Car referrals - EGD/colo to be booked. He is aware he will need to review coumadin hold with his color checker roving or yarn forthis procedure - US abd ordered - Repeat MELD labs in 3 months - Follow up 3 months Anticoagulated on Coumadin For prosthetic valve. INR goal 2.5-3.5 -pt discharged from multiple clinics for non adherence and uncontrolled INRs. Now followed by PCP for INR -was on Lovenox which is not FDA approved but pt did not like it and wanted to go back on coumadin. Cardiomyopathy, unspecified type (CMS/HCC) -Likely secondary to CAD in setting of severe alcohol use disorder. -euvolemic on exam -EF 30-35% 05/2020 -has pacemaker and mechanical aortic valve -echo 11/23/2023: moderate concentric LVH, global hypokinesis of LV contractility, EF 40-45%, indeterminate, mild pulmonary HTN diastolic dysfuntion -seen by Dr. Marcos Verdin MD 03/10/24 History of prosthetic heart valve Hx [address] 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 No hx CABG. Pacemaker placed for AV radha block. -Coumadin changed to Lovenox since 05/2022 due to INR not at goal > 90 % of the time with INRS ashigh as 16 and 26 in setting of ETOH with intracranial bleed however pt did not tolerate injectionsand hematology recommended Coumadin as first line treatment. Pt was changed back to coumadin and has continued to be uncontrolled. - Continue close monitoring on Lovenox when he is subtherapeutic He reprots he drinks 3-4 coors light on a Wednesday about every two weeks and has stopped daily drinking and rum - established with [facility] because insurance no longer accepted by [facility]. -Patient followed at [place] [facility] with Dr. Cristine Deleon DO, seen 06/09/23 Tobacco dependence -Cigg/day: more than 1 pack- daily -Age started: 11 years old -Total years smokin -Pack year history: 25 Encouraged smoking cessation resources such as pharmacomtherapy, [facility] smoking cessation group, and [facility] pharmacy smoking cessation clinic -currently smoke cigarettes or quit within the past 15 years. -LDCT: ordered 10/22/23, pt wants to wait till Spring to get it done. In precontemplative stages of quitting. Motivational interviewing done. Follow up in about 3 months (around 03/01/2025) for chornic conditions. [1] Current Outpatient Medications: acamprosate (Campral) 333 MG EC tablet, Take 2 tablets (666 mg) by mouth 3 times daily. Do not crush, chew, or split. (DOSE INCREASED TO TID), Disp: 180 tablet, Rfl: 11 Acetaminophen Extra Strength 500 MG tablet, TAKE 1 TABLET BY MOUTH EVERY 6 HOURS NEEDED FOR MILDPAIN, Disp: 20 tablet, Rfl: 0 albuterol (Ventolin HFA) 108 (90 Base) MCG/ACT inhaler, INHALE 2 PUFFS BY MOUTH EVERY 4 TO 6 HOURS NEEDED, Disp: 18 g, Rfl: 3 budesonide-formoterol (Symbicort) 160-4.5 MCG/ACT inhaler, INHALE 2 PUFFS BY MOUTH TWICE DAILY IN THE MORNING AND AT BEDTIME RINSE MOUTH AFTER USING. DO NOT SWALLOW, Disp: 10.2 g, Rfl: 2 busPIRone (Buspar) 10 MG tablet, Take by mouth [address] Vincent, Disp: , Rfl: chlorhexidine (Peridex) 0.12 % solution, Swish 15 mL morning and night for 1 minute. Spit, do not swallow. Do not eat or drink for 30 minutes following use., Disp: 473 mL, Rfl: 0 Farxiga 10 MG, Take 10 mg by mouth in the morning., Disp: , Rfl: ferrous sulfate 325 (65 Fe) MG EC tablet, TAKE 1 TABLET BY MOUTH EVERY MORNING DO NOT BREAK, CRUSH,DISSOLVE OR CHEW, Disp: 90 tablet, Rfl: 0 folic acid (Folvite) 1 MG tablet, TAKE 1 TABLET BY MOUTH EVERY MORNING, Disp: 90 tablet, Rfl: 3 furosemide (Lasix) 20 MG tablet, Take 1 tablet (20 mg) by mouth Once per day., Disp: 90 tablet, Rfl: 3 gabapentin (Neurontin) 100 MG capsule, TAKE 1 CAPSULE BY MOUTH THREE TIMES DAILY IN THE MORNING, EVENING, AND BEDTIME, Disp: 90 capsule, Rfl: 3 hydrOXYzine pamoate (Vistaril) 50 MG capsule, Take by mouth. Dr. Vincent, Disp: , Rfl: ibuprofen 600 MG tablet, Take 1 tablet (600 mg) by mouth every 6 (six) hours if needed for mild pain for up to 20 doses., Disp: 20 tablet, Rfl: 0 lactulose (Chronulac) 10 GM/15ML solution, TAKE 30 ML BY MOUTH THREE TIMES DAILY, Disp: 946 mL, Rfl: 5 lidocaine (Lidoderm) 5 % patch, APPLY 1 PATCH TOPICALLY TO SKIN, LEAVE ON FOR 12 HOURS AND OFF FOR 12 HOURS DIRECTED, Disp: 30 patch, Rfl: 5 magnesium oxide 250 MG tablet, Take 2 tablets by mouth Once per day., Disp: , Rfl: melatonin 5 MG tablet, TAKE 2 TABLETS BY MOUTH EVERY DAY AT BEDTIME NEEDED FOR SLEEP, Disp: 60 tablet, Rfl: 3 metoprolol succinate XL (Toprol-XL) 25 MG 24 hr tablet, Take 1 tablet (25 mg) by mouth Once per day., Disp: 90 tablet, Rfl: 3 nicotine (Nicoderm, Step 2) 14 MG/24HR patch, APPLY 1 PATCH TOPICALLY TO THE SKIN IN THE MORNING. DO NOT SMOKE WHILE USING PATCH., Disp: 28 patch, Rfl: 2 OLANZapine (ZyPREXA) 5 MG tablet, Take 1 tablet by mouth at bedtime., Disp: , Rfl: pantoprazole (ProtoNix) 40 MG EC tablet, TAKE 1 TABLET BY MOUTH TWICE DAILY IN THE MORNING AND IN THE EVENING, Disp: 180 tablet, Rfl: 1 QUEtiapine (SEROquel) 50 MG tablet, Take 1 tablet by mouth Once per day., Disp: , Rfl: spironolactone (Aldactone) 25 MG tablet, Take 1 tablet (25 mg) by mouth Once per day., Disp: 90 tablet, Rfl: 3 thiamine (Vitamin B-1) 100 MG tablet, TAKE 1 TABLET BY MOUTH EVERY MORNING, Disp: 90 tablet, Rfl: 3 warfarin (Coumadin) 5 MG tablet, TAKE 1 TO 2 TABLETS BY MOUTH ONCE DAILY DIRECTED BY COUMADIN CLINIC, Disp: 60 tablet, Rfl: 3 Xifaxan 550 MG tablet, Take 1 tablet by mouth 2 times daily., Disp: , Rfl: [2] Allergies Allergen Reactions Lorazepam Other reaction(s): OPPOSITE EFFECT PSYCOTIC EFECTS Ambien [Zolpidem] Unintentional overdose on zolpidem on multiple occasions [3] Past Medical History: Diagnosis Date Acute hyponatremia 12/24/2022 EDGAR (acute kidney injury) ([facility]) 06/07/2023 Alcohol use disorder, severe, dependence ([facility]) 08/24/2011 Pt with long history of severe alcohol dependence with multiple hospitalizations, history of withdrawal, history of withdrawal seizures, liver disease and dangerous supratheraputic INRs. Risks discussed at each visit. -continue thiamine and folate -continue with alcohol use disorder clinic -continue with therapist and psychiatrist -continue Acamprosate 333 mg 2 tabs BID started 06/09/23 Alcohol withdrawal ([facility]) 04/15/2023 Alcoholic liver disease ([facility]) 10/20/2023 Lab Results Component Value Date AST [...] Anticoagulated on Coumadin Harrell's esophagus 12/24/2022 Cardiomyopathy ([facility] 04/01/2022 -Likely secondary to CAD in setting [...] patches Chronic systolic CHF (congestive heart failure) ([facility]) 12/24/2022 Coronary artery disease 05/07/2022 -Cardiac catheretization [...] 04/01/2022 -Hospitalized for subarachnoid hemorrhage 10/2021 at [facility] after fall in the setting of supratheraputic INR of 16 and heavy alcohol use. He was changed to lovenox but could not tolerate the injections. Back on coumadin with improved INRs. He is also on plavix. ER precautions discussed. Hx of [facility] use of blood thinners Hypertension 08/24/2011 Multiple med changes, see med list Lung nodule 04/02/2023 CT of chest in hospital 04/01/23 IMPRESSION: Interval enlargement right middle lobe pulmonary nodule, now 5 mm. Slight enlargement left paratracheal lymph node. 3 month follow-up LDCT recommended. LDCT ordered 10/22/23 Mild intermittent asthma 01/04/2017 Well controlled. Pacemaker Paroxysmal atrial fibrillation (CMS/HCC) 05/07/2022 Asymptomatic. Rate controlled -continue metprolol succinate [...] to coordinate medications, min Rhabdomyolysis 06/09/2023 Sepsis (CMS/HCC) 06/09/2023 Subtherapeutic anticoagulation 05/07/2022 Pt INR severely [...] Encouraged smoking cessation resources such as pharmacomtherapy, [facility] smoking cessation group, and [facility] pharmacy smoking cessation clinic -currently smoke cigarettes or quit within the past 15 years. - LDCT: ordered 10/22/23, pt wants to wait till Spring to get it done. In precontempl Vitamin B 12 deficiency 05/07/2022 -B12 normal 08/2020 without supplementation -rechecking Vit B level 01/19/24 Warfarin toxicity 12/24/2022 [4] No past surgical history on file. [5] No family history on file. documented in this encounter Miscellaneous Notes * Assessment & Plan Note - Nathalie Hsu MD - 11/29/2024 11:00 AM EDT Associated Problem(s): Hypomagnesemia ER visit (11/18/2024) due generalized muscle cramps. Found to have low Magnesium at 1.4. Received IVsupplementation of Magnesium (level went up to 3.0). CPK within normal at 120 (range 38-174 U/L). Discharged home with Magnesium Oxide 500mg daily. States he was not able to tolerate the medication beyond 3 days due to vomiting. He did not get lab drawn but will do so 11/29/24. If low will restart a different magnesium. * Assessment & Plan Note - Nathalie Hsu MD - 11/29/2024 11:00 AM EDT Associated Problem(s): Alcohol use disorder, severe, dependence (CMS/HCC) Pt with long history of severe alcohol dependence with multiple hospitalizations, history of withdrawal, history of withdrawal seizures, cirrhotic liver and dangerous supratheraputic INRs. Risks discussed at each visit. -continue thiamine and folate -continue with alcohol use disorder clinic -continue with therapist and psychiatrist -continue Acamprosate 333 mg 2 tabs BID started 06/09/23 * Assessment & Plan Note - Nathalie Hsu MD - 11/29/2024 11:00 AM EDT Associated Problem(s): Alcoholic liver disease (CMS/HCC) Lab Results Component Value Date AST 20 08/04/2024 AST 31 07/14/2024 AST 21 08/10/2022 ALT 20 08/04/2024 ALT 37 07/14/2024 ALT 20 08/10/2022 ALT 22 08/22/2020 TOTALBILIRUB 0.5 08/04/2024 TOTALBILIRUB 0.6 07/14/2024 INR 2.10 (L) 11/28/2024 INR 1.9 (H) 07/14/2024 PLT 246 07/14/2024 PLT 258 07/14/2024 CREATININE 1.40 08/04/2024 CREATININE 1.21 10/21/2021 CREATININE 1.21 10/21/2021 NA 139 08/04/2024 MELD 3.0: 12 at 07/14/2024 1:49 PM [...] diet discussed. Avoid hepatotoxic agents. -Followed by: Complaint Operator, Dr. Johnson: Note from 07/28/24 reviewed -Again [...] add a night time snack such as sinhala yogurt, PB etc - Manager Car referral - CLose follow up in 2 weeks -GI note 04/28/24 - Clarified need for CCC and Manager Car referrals - Due for EGD/colo - needs repeat echo ordered to follow up on cardiomyopathy prev EF 20-25% - Will also confirm his OP color checker roving or yarn for clearance - Pt reminded to bring home meds list - Repeat MELD labs in [address] Johnson 07/28/24 MELD 14 on most recent labs. Discussed that can be cautiously optimistic re some recuperation of liver function however if he relapses on etOH a repeat ACLF episode is inevitable. He was counseled on strict abstinence from etOH.Recently established care with Dr Holloway at [facility] for substance use disorder recovery and support. - Clarified need for CCC and Manager Car referrals - EGD/colo to be booked. He is aware he will need to review coumadin hold with his color checker roving or yarn forthis procedure - US abd ordered - Repeat MELD labs in 3 months - Follow up 3 months * Assessment & Plan Note - Nathalie Hsu MD - 11/29/2024 11:00 AM EDT Associated Problem(s): Anticoagulated on Coumadin For prosthetic valve. INR goal 2.5-3.5 -pt discharged from multiple clinics for non adherence and uncontrolled INRs. Now followed by PCP for INR -was on Lovenox which is not FDA approved but pt did not like it and wanted to go back on coumadin. * Assessment & Plan Note - Nathalie Hsu MD - 11/29/2024 11:00 AM EDT Associated Problem(s): Cardiomyopathy (CMS/HCC) -Likely secondary to CAD in setting of severe alcohol use disorder. -euvolemic on exam -EF 30-35% 05/2020 -has pacemaker and mechanical aortic valve -echo 11/23/2023: moderate concentric LVH, global hypokinesis of LV contractility, EF 40-45%, indeterminate, mild pulmonary HTN diastolic dysfuntion -seen by Dr. Marcos Verdin MD 03/10/24 * Assessment & Plan Note - Nathalie Hsu MD - 11/29/2024 11:00 AM EDT Associated Problem(s): History of prosthetic heart valve Hx [address] 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 No hx CABG. Pacemaker placed for AV radha block. -Coumadin changed to Lovenox since 05/2022 due to INR not at goal > 90 % of the time with INRS ashigh as 16 and 26 in setting of ETOH with intracranial bleed however pt did not tolerate injectionsand hematology recommended Coumadin as first line treatment. Pt was changed back to coumadin and has continued to be uncontrolled. - Continue close monitoring on Lovenox when he is subtherapeutic He reprots he drinks 3-4 coors light on a Wednesday about every two weeks and has stopped daily drinking and rum - established with [facility] because insurance no longer accepted by [facility]. -Patient followed at [facility] associates with Dr. Cristine Deleon DO, seen 06/09/23 * Assessment & Plan Note - Nathalie Hsu MD - 11/29/2024 11:00 AM EDT Associated Problem(s): Tobacco dependence -Cigg/day: more than 1 pack- daily -Age started: 11 years old -Total years smokin -Pack year history: 25 Encouraged smoking cessation resources such as pharmacomtherapy, [facility] smoking cessation group, and [facility] pharmacy smoking cessation clinic -currently smoke cigarettes or quit within the past 15 years. -LDCT: ordered 10/22/23, pt wants to wait till Spring to get it done. In precontemplative stages of quitting. Motivational interviewing done. documented in this encounter Plan of Treatment Upcoming Encounters Date Type Department Care Team (Late st Contact Info) Description 12/20/2024 2:00 PM EDT Office Visit [facility] [address] [place] [id number] Nathalie Hsu MD [address] [place] [id number] 01/01/2025 9:00 AM EDT Office Visit [facility] OPTOMETRY [address] [place] [address] Seth, Zabrina, OD [address] [place] [address] 01/08/2025 10:00 AM EDT Office Visit [facility] ADULT DENTAL [address] [place] [address] Ulises, Chiquita [address] [place] [address] 02/16/2025 1:15 PM EST Office Visit [facility] MED[facility]INE [address] [place] [id number] Renny Holloway MD [address] [place] [phone] documented as of this encounter Visit Diagnoses Diagnosis Hypomagnesemia- Primary Disorders of magnesium metabolism Alcohol use disorder, severe, dependence (CMS/HCC) Alcoholic liver disease (CMS/HCC) Unspecified alcoholic liver damage Anticoagulated on Coumadin Cardiomyopathy, unspecified type (CMS/HCC) History of prosthetic heart valve Tobacco dependence Tobacco use disorder documented in this encounter Additional Health Concerns Assessment Noted Time PHQ-9 Depression Total Score: 0 09/21/19 25 3:24 PM EDT documented as of this encounter Care Teams Lens Cutter Relationship Specialty Start Date End Date Nathalie Hsu MD [address] [place] [address] PCP - General Family Medicine 09/27/13 Shannan Barrow RN [address] [place] [address] Registered Nurse 02/29/24 Lisbeth Johnson [address] [place] [address] Drive [address] [place] [address] Gastroenterology 03/15/24 Tonya Poole Cook [employer] FoodBraiding Machine Tender 01/19/24 Sherin ([facility]) Registered Nurse 02/29/24 Marcos Verdin MD [facility] [address] [place] [address] Cardiology 03/10/24 Omid Vincent Psychiatry 03/15/24 documented as of this encounter
--- OUTSIDE RECORDS SUMMARY | 2024-11-29 11:33 | XMS_ITS | Encounter Summary ---
Author Organization [employer] Address [address] [facility] 7t [place] [address] Care Team Providers Care Oracle Fusion Developer Name Role Phone Nathalie Hsu MD Primary Care Provider [phone] Shannan Barrow RN Unavailable [phone] Lisbeth Johnson Unavailable Encounter Details Date Type Department Care Team (Latest Contact Info) Description 11/24/2024 Travel Social History Tobacco Use Types Packs/Day [...] Description 12/20/2024 2:00 PM EDT Office Visit [facility] MEDICINE [address] [place] [address] Nathalie Hsu MD [address] [place] [address] 01/01/2025 9:00 AM EDT Office Visit [facility] OPTOMETRY [address] [place] [address] Seth, Zabrina, OD 230 [place] [address] 01/08/2025 10:00 AM EDT Office Visit [facility] ADULT DENTAL 230 [place] [address] Ulises, Chiquita 230 [place] [address] 02/16/2025 1:15 PM EST Office Visit [facility] MEDICINE [address] [place] [address] Renny Holloway MD [address] [place] [address] documented as of this encounter Visit Diagnoses Not on filedocumented in this encounter Additional Health Concerns Assessment Noted Time PHQ-9 Depression Total Score: 0 09/21/19 25 3:24 PM EDT documented as of this encounter Care Teams Oracle Fusion Developer Relationship Specialty Start Date End Date Nathalie Hsu MD [address] [place] [address] PCP - General Family Medicine 09/27/13 Shannan Barrow, RN [address] [place] [address] Registered Nurse 02/29/24 Lisbeth Johnson [address] [place] [address] 3rd [place] [address] Gastroenterology 03/15/24 Tonya Poole Data Operations LeaderEmployment Office Clerk 01/19/24 Sherin (A S) Registered Nurse 02/29/24 Marcos Verdin MD [facility] [address] [place] [address] Cardiology 03/10/24 Omid Vincent Psychiatry 03/15/24 documented as of this encounter
--- OUTSIDE RECORDS SUMMARY | 2024-11-29 11:33 | XMS_ITS | Encounter Summary ---
Author Organization [employer] Address [address] 7t [place] [address] Care Team Providers Care Embedded Linux Developer Name Role Phone Nathalie Hsu MD Primary Care Provider [phone] Shannan Barrow RN Unavailable [phone] Lisbeth Johnson Unavailable Reason for Visit * Reason Onset Date Comments PT-1 05/26/2024 Encounter Details Date Type Department Care Team (Late st Contact Info) Description 05/26/2024 Telephone [facility] [address] [place] [address] Nathalie Hsu MD 230 [place], [place] [phone] PT-1 Social History Tobacco Use Types Packs/Day [...] Y/N: Yes Provider name or facility name: [facility] [id number] Escort needed: Y/N: No Do you have a wheelchair: Y/N: No If yes- Manual or electric: N/A Visits: (amount of visits) ( x monthly, weekly, daily) 2 times per month. documented in this encounter Plan of Treatment Upcoming Encounters Date Type Department Care Team (Late st Contact Info) Description 12/20/2024 2:00 PM EDT Office Visit [facility] MEDICINE [address] [place] [address] Nathalie Hsu MD [address] [place] [address] 01/01/2025 9:00 AM EDT Office Visit [facility] OPTOMETRY [address] [place] [address] Zabrina Ann, OD 230 [place] [address] 01/08/2025 10:00 AM EDT Office Visit [facility] ADULT DENTAL [address] [place] [address] Ulises, Chiquita [address] [place] [address] 02/16/2025 1:15 PM EST Office Visit [facility] MED[facility]INE [address] [place] [address] Renny Holloway MD [address] [place] [address] documented as of this encounter Visit Diagnoses Not on filedocumented in this encounter Additional Health Concerns Assessment Noted Time PHQ-9 Depression Total Score: 0 06/09/19 9:13 AM EST documented as of this encounter Care Teams Embedded Linux Developer Relationship Specialty Start Date End Date Nathalie Hsu MD [address] [place] [address] PCP - General Family Medicine 09/27/13 Shannan Barrow, KHAI [address] [place] [address] Registered Nurse 02/29/[address] 3rd [place] [address] Gastroenterology 03/15/24 Tonya Poole Audit InternTag Stringer 01/19/24 Sherin ([facility]) Registered Nurse 02/29/24 Marcos Verdin MD [facility] [address] [place] [address] Cardiology 03/10/24 Omid Vincent Psychiatry 03/15/24 documented as of this encounter
--- OUTSIDE RECORDS SUMMARY | 2024-11-29 11:33 | XMS_ITS | Encounter Summary ---
Author Organization [employer] Address [address] [facility] [address] 7t [place] [address] Care Team Providers Care Wrapper Off Name Role Phone Henderson, Nathalie ABDI Primary Care Provider [phone]- [phone] Shannan Barrow RN Unavailable [phone] Lisbeth Johnson Unavailable Reason for Visit * Reason Comments Med Refill Encounter Details Date Type Department Care Team (Late st Contact Info) Description 07/04/[address] [facility] ADULT DENTAL [address] [place] [address] Panchito Lamas DDS [address] [place] [address] Severe dental caries; Dental root caries; Advanced [...] Description 12/20/2024 2:00 PM EDT Office Visit [facility] MEDICINE [address] [place] [address] Nathalie Hsu MD 230 [place] [address] 01/01/2025 9:00 AM EDT Office Visit [facility] OPTOMETRY [address] [place] [address] Zabrina Ann OD [address] [place] [address] 01/08/2025 10:00 AM EDT Office Visit [facility] ADULT DENTAL [address] [place] [address] Chiquita Montgomery [address] [place] [address] 02/16/2025 1:15 PM EST Office Visit [facility] MEDICINE [address] [place] [address] Renny Holloway MD [address] [place] [address] documented as of this encounter Visit Diagnoses Diagnosis Severe dental caries Dental root caries Advanced periodontitis Excessive attrition of teeth, limited to enamel Missing teeth, acquired Dental calculus Accretions on teeth documented in this encounter Additional Health Concerns Assessment Noted Time PHQ-9 Depression Total Score: 0 06/09/19 9:13 AM EST documented as of this encounter Care Teams Wrapper Off Relationship Specialty Start Date End Date Nathalie Hsu MD [address] [place] [address] PCP - General Family Medicine 09/27/13 hSannan Barrow, KHAI [address] [place] [address] Registered Nurse 02/29/24 Lisbeth Johnson [address] [place] [address] 3[address] [place] [address] Gastroenterology 03/15/24 Tonya Poole Thread DresserCustomer Data Technician 01/19/24 Sherin (A [facility]) Registered Nurse 02/29/24 Marcos Verdin MD [facility] [address] [place] [address] Cardiology 03/10/24 Omid Vincent Psychiatry 03/15/24 documented as of this encounter
--- OUTSIDE RECORDS SUMMARY | 2024-11-29 11:33 | XMS_ITS | Encounter Summary ---
Author Organization [employer] Address [address] [facility] 7t [place] [address] Care Team Providers Care Reordering Clerk Name Role Phone Nathalie Hsu MD Primary Care Provider [phone] Shannan Barrow RN Unavailable [phone] Lisbeth Johnson Unavailable Reason for Visit * Reason Onset Date Comments Hospital Follow-up 03/07/2024 Medication Question 03/07/2024 Encounter Details Date Type Department Care Team (Late st Contact Info) Description 03/07/2024 Telephone [facility] MED[facility]INE [address] [place], [place] [phone] Nathalie Hsu MD [address] [place] [address] Hospital Follow-up; Medication Question Social History Tobacco [...] stating wrong number and he doesn't speak polish (was not the pt). Telephone call placed [...] - 03/07/2024 2:00 PM EST Tc from [facility] with [facility] Inspector Raw Quartz requesting a HDF appt. Pt is concerned about medication melatonin 5 MG tablet he still has trouble sleeping and doesn't want to stop taking. Hospital: [facility] Date of admission: 02/11 Discharge date: 03/01 Diagnosed: Liver Issues Contact pt to schedule at [phone] *Send message to [place] [facility] Care Coordinators documented in this encounter Plan of Treatment Upcoming Encounters Date Type Department Care Team (Late st Contact Info) Description 12/20/2024 2:00 PM EDT Office Visit [facility] MEDICINE [address] [place] [address] Nathalie Hsu MD [address] [place] [address] 01/01/2025 9:00 AM EDT Office Visit [facility] OPTOMETRY [address] [place] [address] Zabrina Ann, OD [address] [place] [address] 01/08/2025 10:00 AM EDT Office Visit [facility] ADULT DENTAL [address] [place] [address] Adalberto Montgomeryaris [address] [place] [address] 02/16/2025 1:15 PM EST Office Visit [facility] MEDICINE [address] [place] [address] Renny Holloway MD [address] [place] [address] documented as of this encounter Visit Diagnoses Not on filedocumented in this encounter Additional Health Concerns Assessment Noted Time PHQ-9 Depression Total Score: 0 06/09/19 24 9:13 AM EST documented as of this encounter Care Teams Reordering Clerk Relationship Specialty Start Date End Date Nathalie Hsu MD [address] [place] [address] PCP - General Family Medicine 09/27/13 Shannan Barrow, RN [address] [place] [address] Registered Nurse 02/29/24 Lisbeth Johnson [address] [place] [address] 3rd [place] [address] Gastroenterology 03/15/24 Tonya Poole Skip TracerWeight Training Instructor 01/19/24 Sherin (A S) Registered Nurse 02/29/24 Marcos Verdin MD [facility] [address] [place] [address] Cardiology 03/10/24 Omid Vincent Psychiatry 03/15/24 documented as of this encounter
--- OUTSIDE RECORDS SUMMARY | 2024-11-29 11:33 | XMS_ITS | Encounter Summary ---
Author Organization [employer] Address [address] [facility] [address] 7t [place] [address] Care Team Providers Care Drafter Construction Name Role Phone Nathalie Hsu MD Primary Care Provider [phone] Shannan Barrow RN Unavailable [phone] Lisbeth Johnson Unavailable Reason for Visit * Reason Onset Date Comments CHART PREP 11/28/2024 Encounter Details Date Type Department Care Team (Late st Contact Info) Description 11/28/2024 Telephone [facility] MEDICINE [address] [place] [address] Nathalie Hsu MD [address] [place], [place] [phone] CHART PREP Social History Tobacco Use Types Packs/Day Years [...] encounter Miscellaneous Notes * Telephone Encounter - Chantal Nair MA - 11/28/2024 9:26 AM EDT Chart Prep Labs: not done Images: done Screenings: Not Applicable Vaccines due: RSV in Pharmacy Due and Shingles in pharmacy Due Referrals: Completed Overdue care gaps: Sbirt, GAD7, Disability , and Oral Health Patient wanted this information: Ultrasound Abdomen 11/30/24 at 12:30 (Tree Feller did call back Patient to inform him) Gastroenterology appointment is on 01/22/25 at 2 PM. (Appointment added to his care team under notes) documented in this encounter Plan of Treatment Upcoming Encounters Date Type Department Care Team (Late st Contact Info) Description 12/20/2024 2:00 PM EDT Office Visit [facility] MEDICINE [address] [place] [phone] Nathalie Hsu MD 230 [place] [address] 01/01/2025 9:00 AM EDT Office Visit [facility] OPTOMETRY [address] [place] [address] SethZabrina funes, OD [address] [place] [address] 01/08/2025 10:00 AM EDT Office Visit [facility] ADULT DENTAL [address] [place] [address] Ulises, Chiquita [address] [place] [address] 02/16/2025 1:15 PM EST Office Visit [facility] MEDICINE [address] [place] [address] Renny Holloway MD [address] [place] [address] documented as of this encounter Visit Diagnoses Not on filedocumented in this encounter Additional Health Concerns Assessment Noted Time PHQ-9 Depression Total Score: 0 09/21/19 25 3:24 PM EDT documented as of this encounter Care Teams Drafter Construction Relationship Specialty Start Date End Date Nathalie Hsu MD [address] [place] [address] PCP - General Family Medicine 09/27/13 Shannan Barrow, KHAI [address] [place] [address] Registered Nurse 02/29/24 Lisbeth Johnson [address] 3rd [place] [address] Gastroenterology 03/15/24 Tonya Poole Medical Radiation TherapistDirector Of Fundraising 01/19/24 Sherin ([facility]) Registered Nurse 02/29/24 Marcos Verdin MD [facility] [address] [place] [address] Cardiology 03/10/24 Omid Vincent Psychiatry 03/15/24 documented as of this encounter
--- OUTSIDE RECORDS SUMMARY | 2024-11-29 11:33 | XMS_ITS | Encounter Summary ---
Author Organization [employer] Address [address] [facility] 7t [place] [address] Care Team Providers Care Dimension Stone Quarry Supervisor Name Role Phone Nathalie Hsu MD Primary Care Provider [phone] Shannan Barrow RN Unavailable [phone] Lisbeth Johnson Unavailable Reason for Visit * Reason Onset Date Comments CRITICAL LAB 11/28/2024 Encounter Details Date Type Department Care Team (Late st Contact Info) Description 11/28/2024 Telephone C PEDIATRICS [address] [place] [address] Nathalie Hsu MD [address] [place] [address] CRITICAL LAB Social History Tobacco Use Types Packs/Day Years [...] Telephone Encounter - Shannan Barrow RN - 11/28/2024 1:43 PM EDT S: Pt is due for PT/INR yesterday due to hx of DVT's. Pt's target INR is 2.5- 3.5. This RN spoke with KAVIN Duff. Pt has been compliant with INR draws. Pt is a daily VNA pt so she checks on him everyday. INR today is 2.1. Sherin reports that she believes that pt had an adverse reaction to his magnesium supplement. She reports pt called her at 1am reporting he wasn't feeling well, was anxious, felt like his heart was racing and kept telling her he thinks he is going to but refused to go to the ED. Pt discontinued the mag supplement and is scared to take it again. Has felt better since he stopped taking it. She reports that she gave him a list of foods high in magnesium which pt has been increasing. She also report that pt's niece bought him an over the counter supplement from [employer] that haszinc and magnesium in it but he hasn't started it because he wants PCP to approve it. He is planning on bringing the bottle to his PCP appt tomorrow. O: INR today: 2.1 Current orders: take 2.5mg , , / 5mg the rest of the week A: Hx of DVT Risk for blood clot due to sub therapeutic INR Hx of afib Hx of prosthetic heart valve P: Orders are to continue same dose. VNA going on Vacation on Wednesday. She will recheck him on and if INR is any lower, will contact me. If stable or higher, will recheck again when she gets back on Wednesday. VNA goes to house daily and frequently checks INR in between ordered draws for ptsafety. Please try to abstain from alcohol use. VNA aware of dosing and draw date. Shannan Barrow RN * Telephone Encounter - Yesica Zamora RN - 11/28/2024 11:06 AM EDT TC incoming from SherinYARI left on critical line with INR. INR of 2.1 Will route to PCP and team nurses to advise. Greta Cleary aware. documented in this encounter Plan of Treatment Upcoming Encounters Date Type Department Care Team (Late st Contact Info) Description 12/20/2024 2:00 PM EDT Office Visit [facility] MEDICINE [address] [place] [address] Nathalie Hsu MD [address] [place] [address] 01/01/2025 9:00 AM EDT Office Visit [facility] OPTOMETRY [address] [place] [address] Zabrina Ann, OD 230 [place] [address] 01/08/2025 10:00 AM EDT Office Visit [facility] ADULT DENTAL [address] [place], [place] [phone] Adalberto Montgomeryaris [address] [place], [place] [phone] 02/16/2025 1:15 PM EST Office Visit [facility] MEDICINE 230 [facility] [address] Renny Holloway MD [address] [place], [place] [phone] documented as of this encounter Procedures Procedure Name Priority Date/Time Associated Diagnosis Comments PROTHROMBIN TIME-INR Routine 11/28/2024 documented in this encounter Results * (ABNORMAL) Prothrombin Time-INR (11/28/2024) INR 2.10(L) 2.50 - 3.50 EXTERNAL LAB [...] documented as of this encounter Care Teams Dimension Stone Quarry Supervisor Relationship Specialty Start Date End [place] [address] PCP - General Family Medicine 09/27/13 Shannan Barrow, RN [address] [place] [address] Registered Nurse 02/29/[address] 3rd [place] [address] Gastroenterology 03/15/24 Tonya Poole Editorial ManagerSock Drier 01/19/24 Sherin (JASMEETA S) Registered Nurse 02/29/24 Marcos Verdin MD [place] [facility] [address] [place] [address] Cardiology 03/10/24 Omid Vincent Psychiatry 03/15/24 documented as of this encounter
--- OUTSIDE RECORDS SUMMARY | 2024-11-29 11:33 | XMS_ITS | Encounter Summary ---
Author Organization [employer] Address [address] 7t [place] [address] Care Team Providers Care Process Coordinator Name Role Phone Chambers, Nathalie ABDI Primary Care Provider [phone]- [phone] Shannan Barrow RN Unavailable [phone] Lisbeth Johnson Unavailable Reason for Visit * Reason Onset Date Comments Dr. Lamas medication 06/20/2024 Encounter Details Date Type Department Care Team (Late st Contact Info) Description 06/20/2024 Telephone [facility] ADULT DENTAL [address] [place], [place] [phone] Panchito Lamas DDS [address] [place], [place] [phone] Dr. Lamas medication Social History Tobacco Use [...] Description 12/20/2024 2:00 PM EDT Office Visit [facility] MEDICINE 230 [place] [address] Nathalie Hsu MD 230 [place] [address] 01/01/2025 9:00 AM EDT Office Visit [facility] OPTOMETRY [address] [place] [address] Seth, Zabrina, OD 230 [place] [address] 01/08/2025 10:00 AM EDT Office Visit [facility] ADULT DENTAL 230 [place] [address] Uliess, Chiquita 230 [place] [address] 02/16/2025 1:15 PM EST Office Visit [facility] MEDICINE [address] [place] [address] Renny Holloway MD 230 [place] [address] documented as of this encounter Visit Diagnoses Not on filedocumented in this encounter Additional Health Concerns Assessment Noted Time PHQ-9 Depression Total Score: 0 06/09/19 24 9:13 AM EST documented as of this encounter Care Teams Process Coordinator Relationship Specialty Start Date End Date Nathalie Hsu MD [address] [place] [address] PCP - General Family Medicine 09/27/13 Shannan Barrow, KHAI [address] [place] [address] Registered Nurse 02/29/24 Lisbeth Johnson [address] [place] [address] Drive 3rd [place] [address] Gastroenterology 03/15/24 Tonya Poole Chain Maker MachineIos Software Engineer 01/19/24 Sherin ([facility]) Registered Nurse 02/29/24 Marcos Verdin MD [place] [facility] [address] [place] [address] Cardiology 03/10/24 Omid Vincent Psychiatry 03/15/24 documented as of this encounter
--- OUTSIDE RECORDS SUMMARY | 2024-11-29 11:33 | XMS_ITS | Encounter Summary ---
Author Organization [employer] Address [address] [facility] 7t [place] [address] Care Team Providers Care Scratch Finisher Name Role Phone Nathalie Hsu MD Primary Care Provider [phone] Shannan Barrow RN Unavailable [phone] Lisbeth Johnson Unavailable Encounter Details Date Type Department Care Team (Latest Contact Info) Description 11/29/2024 Travel Social History Tobacco Use Types Packs/Day [...] 2:00 PM EDT Office Visit [facility] MEDICINE [address] [place] [address] Nathalie Hus MD [address] [place] [address] 01/01/2025 9:00 AM EDT Office Visit [facility] OPTOMETRY [address] [place] [address] Seth, Zabrina, OD 230 [place] [address] 01/08/2025 10:00 AM EDT Office Visit [facility] ADULT DENTAL 230 [place] [address] Ulises, Chiquita 230 [place] [address] 02/16/2025 1:15 PM EST Office Visit [facility] MEDICINE [address] [place] [address] Renny Holloway MD [address] [place] [address] documented as of this encounter Visit Diagnoses Not on filedocumented in this encounter Additional Health Concerns Assessment Noted Time PHQ-9 Depression Total Score: 0 09/21/19 25 3:24 PM EDT documented as of this encounter Care Teams Scratch Finisher Relationship Specialty Start Date End Date Nathalie Hsu MD 230 [place] [address] PCP - General Family Medicine 09/27/13 Shannan Barrow, RN 230 [place] [address] Registered Nurse 02/29/24 Lisbeth Johnson [address] [place] [address] 3rd [place] [address] Gastroenterology 03/15/24 Tonya Poole Tetryl Boiling Tub OperatorCommunity Action Worker 01/19/24 Sherin (A S) Registered Nurse 02/29/24 Marcos Verdin MD [place] [facility] [address] [place] [address] Cardiology 03/10/24 Omid Vincent Psychiatry 03/15/24 documented as of this encounter
--- OUTSIDE RECORDS SUMMARY | 2024-11-29 11:33 | XMS_ITS | Encounter Summary ---
Author Organization [employer] Address [address] [facility] 7t [place] [address] Care Team Providers Care Chiropractic Assistant Name Role Phone Nathalie Hsu MD Primary Care Provider [phone] Shannan Barrow RN Unavailable [phone] Lisbeth Johnson Unavailable Reason for Visit * Reason Comments Med Refill Encounter Details Date Type Department Care Team (Late st Contact Info) Description 03/30/2024 Refill [facility] MEDICINE [address] [place] [address] Nathalie Hsu MD 230 [place] [address] History of alcohol abuse; Hypomagnesemia; Mild intermittent [...] Description 12/20/2024 2:00 PM EDT Office Visit [facility] MEDICINE [address] [place] [address] Nathalie Hsu MD 230 [place] [address] 01/01/2025 9:00 AM EDT Office Visit [facility] OPTOMETRY [address] [place] [address] Zabrina Ann OD 230 [place] [address] 01/08/2025 10:00 AM EDT Office Visit [facility] ADULT DENTAL [address] [place] [address] Chiquita Montgomery [address] [place] [address] 02/16/2025 1:15 PM EST Office Visit [facility] MEDICINE [address] [place] [address] Renny Holloway MD 230 [place] [address] documented as of this encounter Visit Diagnoses Diagnosis History of alcohol abuse Nondependent alcohol abuse, in remission Hypomagnesemia Disorders of magnesium metabolism Mild intermittent asthma, unspecified whether complicated documented in this encounter Additional Health Concerns Assessment Noted Time PHQ-9 Depression Total Score: 0 06/09/19 24 9:13 AM EST documented as of this encounter Care Teams Chiropractic Assistant Relationship Specialty Start Date End Date Nathalie Hsu MD [address] [place] [address] PCP - General Family Medicine 09/27/13 Shannan Barrow, KHAI [address] [place] [address] Registered Nurse 02/29/24 Lisbeth Johnson [address] [place] [address] 3rd [place] [address] Gastroenterology 03/15/24 Tonya Poole Ski TechnicianClinical Practitioner 01/19/24 Sherin (A [facility]) Registered Nurse 02/29/24 Marcos Verdin MD [place] [facility] [address] [place] [address] Cardiology 03/10/24 Omid Vincent Psychiatry 03/15/24 documented as of this encounter
--- OUTSIDE RECORDS SUMMARY | 2024-11-29 11:34 | XMS_ITS | Encounter Summary ---
Author Organization [employer] Address [address] [place] [address] [address] Care Team Providers Care Bowling Floor Manager Name Role Phone Nathalie Hsu MD Primary Care Provider Shannan Barrow RN Unavailable [phone] Lisbeth Johnson Unavailable Encounter Details Date Type Department Care Team (Late st Contact Info) Description 11/27/2022 Orders Only [facility] MEDICINE [address] [place] [address] Jose Dockery [address] [place] [address] Social History Tobacco Use Types Packs/Day Years [...] Description 12/20/2024 2:00 PM EDT Office Visit [facility] MEDICINE [address] [place] [address] Nathalie Hsu MD [address] [place], [place] [phone] 01/01/2025 9:00 AM EDT Office Visit [facility] OPTOMETRY [address] [place] [address] Zabrina Ann OD 230 [place] [address] 01/08/2025 10:00 AM EDT Office Visit [facility] ADULT DENTAL 230 [place] [address] Ulises, Chiquita 230 [place] [address] 02/16/2025 1:15 PM EST Office Visit [facility] MEDICINE 230 [place] [address] Renny Holloway MD [address] [place] [address] documented as of this encounter Visit Diagnoses Not on filedocumented in this encounter Additional Health Concerns Assessment Noted Time PHQ-9 Depression Total Score: 6 05/08/19 23 10:33 AM EST documented as of this encounter Care Teams Bowling Floor Manager Relationship Specialty Start Date End Date Nathalie Hsu MD [address] [place] [address] PCP - General Family Medicine 09/27/13 Shannan Barrow, RN [address] [place] [place] [address] Registered Nurse 02/29/24 Lisbeth Johnson [address] [place] [address] Drive 3rd [place] [address] Gastroenterology 03/15/24 Tonya Poole Patient Access DirectorNurse'S Assistant 01/19/24 Sherin (JASMEETA [facility]) Registered Nurse 02/29/24 Marcos Verdin MD [place] [facility] [address] [place] [address] Cardiology 03/10/24 Omid Vincent Psychiatry 03/15/24 documented as of this encounter
--- OUTSIDE RECORDS SUMMARY | 2024-11-29 11:34 | XMS_ITS | Encounter Summary ---
Author Organization [employer] Address [address] [facility] 7t [place] [address] Care Team Providers Care Beater Dumper Name Role Phone Nathalie Hsu MD Primary Care Provider [phone] Shannan Barrow RN Unavailable [phone] Lisbeth Johnson Unavailable Reason for Visit * Reason Comments Med Refill Encounter Details Date Type Department Care Team (Late st Contact Info) Description 08/14/[address] [facility] MEDICINE [address] [place] [address] Nathalie Hsu MD [address] [place], [place] [phone] Alcoholic liver disease (CMS/HCC) Social History Tobacco [...] PM EDT Office Visit [facility] MEDICINE [address] [place] [address] Nathaile Hsu MD [address] [place] [address] 01/01/2025 9:00 AM EDT Office Visit [facility] OPTOMETRY [address] [place] [address] Zabrina Ann OD 230 [place] [address] 01/08/2025 10:00 AM EDT Office Visit [facility] ADULT DENTAL 230 [place] [address] Chiquita Montgomery 230 [place] [address] 02/16/2025 1:15 PM EST Office Visit [facility] MEDICINE [address] [place] [address] Renny Holloway MD [address] [place] [address] documented as of this encounter Visit Diagnoses Diagnosis Alcoholic liver disease (CMS/HCC) Unspecified alcoholic liver damage documented in this encounter Additional Health Concerns Assessment Noted Time PHQ-9 Depression Total Score: 0 06/09/19 9:13 AM EST documented as of this encounter Care Teams Beater Dumper Relationship Specialty Start Date End Date Nathalie Hsu MD [address] [place], [place] [phone] PCP - General Family Medicine 09/27/13 Shannan Barrow, KHAI [address] [place] [address] Registered Nurse 02/29/24 Lisbeth Johnson [address] [place] [address] 3rd [place] [address] Gastroenterology 03/15/24 Tonya Poole Signal Worker HelperLaboratory Secretary 01/19/24 Sherin ([facility]) Registered Nurse 02/29/24 Marcos Verdin MD [place] [facility] [address] [place] [address] Cardiology 03/10/24 Omid Vincent Psychiatry 03/15/24 documented as of this encounter
--- OUTSIDE RECORDS SUMMARY | 2024-11-29 11:34 | XMS_ITS | Encounter Summary ---
Author Organization [employer] Address [address] [facility] 7t [place] [address] Care Team Providers Care Seismograph Shooter Name Role Phone Nathalie Hsu MD Primary Care Provider [phone] Shannan Barrow RN Unavailable [phone] Lisbeth Johnson Unavailable Reason for Visit * Reason Comments Med Refill Encounter Details Date Type Department Care Team (Late st Contact Info) Description 02/28/2023 Refill [facility] MEDICINE 230 [place], [place] [phone] Nathalie Hsu MD [address] [place], [place] [phone] Social History Tobacco Use Types Packs/Day Years [...] Description 12/20/2024 2:00 PM EDT Office Visit [facility] MEDICINE 230 [place] [address] Nathalie Hsu MD [address] [place] [address] 01/01/2025 9:00 AM EDT Office Visit [facility] OPTOMETRY [address] [place] [address] Seth, Zabrina, OD 230 [place] [address] 01/08/2025 10:00 AM EDT Office Visit [facility] ADULT DENTAL 230 [place] [address] Ulises, Chiquita [address] [place] [address] 02/16/2025 1:15 PM EST Office Visit [facility] MEDICINE 230 [place] [address] Renny Holloway MD 230 [place] [address] documented as of this encounter Visit Diagnoses Not on filedocumented in this encounter Additional Health Concerns Assessment Noted Time PHQ-9 Depression Total Score: 6 05/08/19 23 10:33 AM EST documented as of this encounter Care Teams Seismograph Shooter Relationship Specialty Start Date End Date Nathalie Hsu MD 230 [place] [address] PCP - General Family Medicine 09/27/13 Shannan Barrow, RN 230 [place] [address] Registered Nurse 02/29/24 Lisbeth Johnson [address] 3rd [place] [address] Gastroenterology 03/15/24 Tonya Poole Community Health DirectorHousekeeper Child Care 01/19/24 Sherin ([facility]) Registered Nurse 02/29/24 Marcos Verdin MD [place] [facility] [address] [place] [address] Cardiology 03/10/24 Omid Vincent Psychiatry 03/15/24 documented as of this encounter
--- OUTSIDE RECORDS SUMMARY | 2024-11-29 11:34 | XMS_ITS | Clinical Summary ---
Author Organization [employer] Address [address] [place] [address] Care Team Providers Care Radio Repairer Domestic Name Role Phone [place], Nathalie ABDI Primary Care Provider [phone] Shannan Barrow RN Unavailable [phone] Lisbeth Johnson Unavailable Allergies Active Allergy Reactions Criticality Noted Date Comments Zolpidem 06/09/2023 Unintentional overdose on zolpidem on multiple occasions Lorazepam High 09/28/2022 Other reaction(s): OPPOSITE EFFECT PSYCOTIC EFECTS Medications albuterol (Ventolin HFA) 108 (90 Base) MCG/ACT inhalerIndicatio ns:Mild intermittent asthma, unspecified whether complicated INHALE 2 PUFFS BY MOUTH EVERY 4 TO 6 HOURS NEEDED 18 g 3 12/27/19 24 Active furosemide (Lasix) 20 MG tabletIndication [...] day. 90 tablet 3 03/10/20 24 Active Farxiga 10 MGIndications:Ca rdiomyopathy, unspecified [...] following use. 473 mL 05/03/19 25 Active ibuprofen 600 MG tablet Take 1 tablet (600 mg) by mouth every 6 (six) hours if needed for mild pain for up to 20 doses. 20 tablet 06/21/19 25 Active pantoprazole (ProtoNix) 40 MG EC tabletIndication s:Gastroesophage al reflux disease without esophagitis TAKE 1 TABLET BY MOUTH TWICE DAILY IN THE MORNING AND IN THE EVENING 180 tablet 1 08/25/19 25 Active OLANZapine (ZyPREXA) 5 MG tablet Take 1 tablet by mouth at bedtime. 08/22/19 25 Active QUEtiapine (SEROquel) 50 MG tablet Take 1 tablet by mouth Once per day. 08/08/19 25 Active Xifaxan 550 MG tablet Take 1 tablet by mouth 2 times daily. 08/22/19 25 Active nicotine (Nicoderm, Step 2) 14 MG/24HR patchIndications :Tobacco dependence APPLY 1 PATCH TOPICALLY TO THE SKIN IN THE MORNING. DO NOT SMOKE WHILE USING PATCH. 28 patch 2 10/11/19 25 Active warfarin (Coumadin) 5 MG tabletIndication s:History of prosthetic heart valve TAKE 1 TO 2 TABLETS BY MOUTH ONCE DAILY DIRECTED BY COUMADIN CLINIC 60 tablet 3 10/11/19 25 Active gabapentin (Neurontin) 100 MG capsuleIndicatio ns:Pain TAKE 1 CAPSULE BY MOUTH THREE TIMES DAILY IN THE MORNING, EVENING, AND BEDTIME 90 capsule 3 10/11/19 25 Active lidocaine (Lidoderm) 5 % patchIndications :Pain APPLY 1 PATCH TOPICALLY TO SKIN, LEAVE ON FOR 12 HOURS AND OFF FOR 12 HOURS DIRECTED 30 patch 5 10/11/19 25 Active budesonide-formo terol (Symbicort) 160-4.5 MCG/ACT inhalerIndicatio ns:Mild intermittent asthma without complication INHALE 2 PUFFS BY MOUTH TWICE DAILY IN THE MORNING AND AT BEDTIME RINSE MOUTH AFTER USING. DO NOT SWALLOW 10.2 g 2 10/11/19 25 Active acamprosate (Campral) 333 MG EC tabletIndication s:Alcohol use disorder, severe, dependence (CMS/HCC) Take 2 tablets (666 mg) by mouth 3 times daily. Do not crush, chew, or split. (DOSE INCREASED TO TID) 180 tablet 11 10/14/19 25 026 Active ferrous sulfate 325 (65 Fe) MG EC tabletIndication s:Anemia, unspecified type TAKE 1 TABLET BY MOUTH EVERY MORNING DO NOT BREAK, CRUSH, DISSOLVE OR CHEW 90 tablet 10/19/19 25 Active Acetaminophen Extra Strength 500 MG tabletIndication s:Severe dental caries,Dental root caries,Advanced periodontitis,Ex cessive attrition of teeth, limited to enamel,Missing teeth, acquired,Dental calculus TAKE 1 TABLET BY MOUTH EVERY 6 HOURS NEEDED FOR MILD PAIN 20 tablet 11/03/19 25 Active lactulose (Chronulac) 10 GM/15ML solutionIndicati ons:Alcoholic liver disease (CMS/HCC) TAKE 30 ML BY MOUTH THREE TIMES DAILY 946 mL 5 11/10/19 25 Active folic acid (Folvite) 1 MG tabletIndication s:History of alcohol abuse TAKE 1 TABLET BY MOUTH EVERY MORNING 90 tablet 3 11/14/19 25 Active thiamine (Vitamin B-1) 100 MG tabletIndication s:History of alcohol abuse TAKE 1 TABLET BY MOUTH EVERY MORNING 90 tablet 3 11/14/19 25 Active melatonin 5 MG tabletIndication s:Primary insomnia TAKE 2 TABLETS BY MOUTH EVERY DAY AT BEDTIME NEEDED FOR SLEEP 60 tablet 3 11/17/19 25 Active magnesium oxide 250 MG tablet Take 2 tablets by mouth Once per day. 11/21/19 25 Active folic acid (Folvite) 1 MG tabletIndication s:History of alcohol abuse TAKE 1 TABLET BY MOUTH EVERY MORNING 90 tablet 3 12/08/19 24 025 Discontinued thiamine (Vitamin B-1) 100 MG tabletIndication s:History of alcohol abuse TAKE 1 TABLET BY MOUTH EVERY MORNING 90 tablet 3 12/08/19 24 025 Discontinued melatonin 5 MG tabletIndication s:Primary insomnia TAKE 2 TABLETS BY MOUTH EVERY DAY AT BEDTIME NEEDED FOR SLEEP 60 tablet 3 07/21/19 25 025 Discontinued lactulose (Chronulac) 10 GM/15ML solutionIndicati ons:Alcoholic liver disease (CMS/HCC) TAKE 30 ML BY MOUTH THREE TIMES DAILY 237 mL 5 09/01/19 25 025 Discontinued Acetaminophen Extra Strength 500 MG tabletIndication s:Severe dental caries,Dental root caries,Advanced periodontitis,Ex cessive attrition of teeth, limited to enamel,Missing teeth, acquired,Dental calculus TAKE 1 TABLET BY MOUTH EVERY 6 HOURS NEEDED FOR MILD PAIN 20 tablet 09/27/19 25 025 Discontinued Active Problems Problem Noted Date Diagnosed Date Hypomagnesemia 11/29/2024 Assessment & Plan (11/29/2024 11:32 AM EDT): ER visit (11/18/2024) due generalized muscle cramps. [...] If low will restart a different magnesium. Advanced periodontitis 06/08/2024 Assessment & Plan (09/22/2024 8:39 AM EDT): Orders: acetaminophen (Tylenol) 500 MG tablet; Take 1 tablet (500 mg) by mouth every 6 (six) hours if needed for mild pain for up to 20 doses. Acute renal failure 01/19/2024 Overview (03/10/2024): Hx of EDGAR Assessment & Plan (03/10/2024 9:53 PM EST): Hx of EDGAR Assessment & Plan (01/19/2024 9:21 AM EDT): Hx of EDGAR -ordered labs 01/19/24 Colon cancer screening 12/27/2023 Overview (01/05/2024): -Cologuard negative 01/05/24 Assessment & Plan (12/27/2023 11:06 AM EDT): Has ColoGuard at home 12/27/23 Closed fracture of multiple ribs 11/10/2023 Overview (08/21/2024): -pt sustained closed fracture of multiple ribs 11/06/03 after fall in the setting of EtOH use -he then fell again 12/10/23 and INR was 13, transferred to [facility] -pt fell again 08/18/24 X ray Acute minimally displaced fractures of the lateral left eighth through 10th ribs. No pneumothorax. Overweight 10/22/2023 Overview (10/22/2023): Discussed weight, diet, exercise with patient in relation to health conditions. Used motivational interviewing to illicit change talk and established initial goals with patient. Assessment & Plan (09/22/2024 8:39 AM EDT): Discussed weight, diet, exercise with patient in relation to health conditions. Used motivational interviewing to illicit change talk and established initial goals with patient. Assessment & Plan (10/22/2023 1:17 PM EDT): Discussed weight, diet, exercise with patient in relation to health conditions. Used motivational interviewing to illicit change talk and established initial goals with patient. Alcoholic liver disease 10/20/2023 Overview (11/29/2024): Lab Results Component Value Date AST 20 [...] diet discussed. Avoid hepatotoxic agents. -Followed by: Property Inspector, Dr. Johnson: Note from 07/28/24 reviewed -Again [...] add a night time snack such as british yogurt, PB etc - [facility] referral - CLose follow up in 2 weeks -GI note 04/28/24 - Clarified need for CCC and [facility] referrals - Due for EGD/colo - needs repeat echo ordered to follow up on cardiomyopathy prev EF 20-25% - Will also confirm his OP violin mechanic for clearance - Pt reminded to bring [...] Recently established care with Dr Holloway at [facility] for substance use disorder recovery and support. - Clarified need for CCC and [facility] referrals - EGD/colo to be booked. He is aware he will need to review coumadin hold with his violin mechanic for this procedure - US abd ordered - Repeat MELD labs in 3 months - Follow up 3 months Assessment & Plan (11/29/2024 11:32 AM EDT): Lab Results Component Value Date AST 20 [...] diet discussed. Avoid hepatotoxic agents. -Followed by: Property Inspector, Dr. Johnson: Note from 07/28/24 reviewed -Again [...] add a night time snack such as british yogurt, PB etc - [facility] referral - CLose follow up in 2 weeks -GI note 04/28/24 - Clarified need for CCC and [facility] referrals - Due for EGD/colo - needs repeat echo ordered to follow up on cardiomyopathy prev EF 20-25% - Will also confirm his OP violin mechanic for clearance - Pt reminded to bring [...] Recently established care with Dr Holloway at [facility] for substance use disorder recovery and support. - Clarified need for CCC and [facility] referrals - EGD/colo to be booked. He is aware he will need to review coumadin hold with his violin mechanic for this procedure - US abd ordered - Repeat MELD labs in 3 months - Follow up 3 months Assessment & Plan (09/22/2024 8:39 AM EDT): Lab Results Component Value Date AST 20 08/04/2024 AST 31 07/14/2024 AST 21 08/10/2022 ALT 20 08/04/2024 ALT 37 07/14/2024 ALT 20 08/10/2022 ALT 22 08/22/2020 TOTALBILIRUB 0.5 08/04/2024 TOTALBILIRUB 0.6 07/14/2024 INR 2.80 09/19/2024 INR 1.9 (H) 07/14/2024 PLT 246 07/14/2024 [...] diet discussed. Avoid hepatotoxic agents. -Followed by: Property Inspector, Dr. Johnson: Note from 07/28/24 reviewed -Again [...] add a night time snack such as british yogurt, PB etc - [facility] referral - CLose follow up in 2 weeks -GI note 04/28/24 - Clarified need for CCC and [facility] [employer] referrals - Due for EGD/colo - needs repeat echo ordered to follow up on cardiomyopathy prev EF 20-25% - Will also confirm his OP violin mechanic for clearance - Pt reminded to bring [...] Recently established care with Dr Holloway at [facility] for substance use disorder recovery and support. - Clarified need for CCC and [facility] referrals - EGD/colo to be booked. He is aware he will need to review coumadin hold with his violin mechanic for this procedure - US abd ordered [...] by: New appointment with GI 03/15/24 at [facility] Assessment & Plan (01/19/2024 9:14 [...] inflammatory changes. -ordered hepatic function panel 12/27/23 Anticoagulated on Coumadin 06/09/2023 Overview (10/22/2023): For prosthetic valve. INR goal 2.5-3.5 -pt discharged from multiple clinics for non adherence and uncontrolled INRs. Now followed by PCP for INR -was on Lovenox which is not FDA approved but pt did not like it and wanted to go back on coumadin. Assessment & Plan (11/29/2024 11:32 AM EDT): For prosthetic valve. INR goal 2.5-3.5 -pt discharged from multiple clinics for non adherence and uncontrolled INRs. Now followed by PCP for INR -was on Lovenox which is not FDA approved but pt did not like it and wanted to go back on coumadin. Assessment & Plan (09/22/2024 8:39 AM EDT): For prosthetic valve. INR goal [...] recommended. Other specified health status 03/03/2023 Overview (09/20/2024): -next comprehensive annual evaluation due after 09/20/25 -eye care facilitated by [facility] -dental home is [facility] -health care proxy on file 02/08/2015, filed into [facility] on 06/09/23 Assessment & Plan (09/22/2024 8:39 AM EDT): -next comprehensive annual evaluation due after 09/20/25 -eye care facilitated by [facility] -dental home is [facility] -health care proxy on file 02/08/2015, filed into [facility] on 06/09/23 Assessment & Plan (03/10/2024 9:55 PM EST): -next comprehensive annual evaluation due after 03/03/2024 -eye care facilitated by [facility] -dental home is [facility] care proxy on file 02/08/2015, filed into [employer] on 06/09/23 Assessment & Plan (01/19/2024 9:20 AM EDT): -next comprehensive annual evaluation due after 03/03/2024 -eye care facilitated by [facility] -dental home is [facility] care proxy on file 02/08/2015, filed into [employer] on 06/09/23 Assessment & Plan (12/27/2023 11:02 AM EDT): -next comprehensive annual evaluation due after 03/03/2024 -eye care facilitated by [facility] -dental home is [facility] care proxy on file 02/08/2015, filed into [employer] on 06/09/23 Assessment & Plan (10/22/2023 11:16 AM EDT): -next physical exam due after 03/03/2024 -eye care facilitated by [facility] -dental home is [facility] care proxy on file 02/08/2015, filed into [facility] on 06/09/23 Assessment & Plan (03/03/2023 9:35 [...] with their office 03/03/23 Assessment & Plan (09/22/2024 8:39 AM EDT): -Hgb on admission 02/09/23 12.9. Baseline 11-13. [...] to complete outpatient scope with Dr. Lisbeth Johnsno. We left a message with their office [...] Chronic systolic CHF (congestive heart failure) 12/24/2022 Thrombocytopenia 12/24/2022 Generalized anxiety disorder 05/08/2022 Vitamin B 12 deficiency 05/07/2022 Overview (01/19/2024): -B12 normal 08/2020 without supplementation -rechecking Vit B level 01/19/24 Assessment & Plan (09/22/2024 8:39 AM EDT): Assessment & Plan (01/19/2024 9:21 AM EDT): -B12 normal 08/2020 without supplementation -rechecking Vit B level 01/19/24 Assessment & Plan (08/11/2022 7:35 AM EDT): -B12 normal 08/2020 without supplementation Assessment & Plan (05/07/2022 10:40 AM EST): B12 normal 08/2020 Anemia 05/07/2022 Overview (09/20/2024): -Colonoscopy 2011 (reports states normal screening, endoscopy 02/2015 (esophagitis). -cologuard negative 11/2023 Lab Results Component Value Date FERRITIN 72 01/19/2024 FERRITIN 40 06/09/2023 HGB 14.3 07/14/2024 HGB 14.3 07/14/2024 HGB 11.7 (L) 08/10/2022 HGB 12.3 (L) 08/22/2020 HEMATOCRIT 37.1 (L) 08/10/2022 HEMATOCRIT 37.8 (L) 08/22/2020 -will refer to GI and hematology -start iron 01/19/24 -ferritin may be elevated due to acute illness, awaiting B12 Assessment & Plan (09/22/2024 8:39 AM EDT): -Colonoscopy 2011 (reports states normal screening, endoscopy 02/2015 (esophagitis). -cologuard negative 11/2023 Lab Results Component Value Date FERRITIN 72 01/19/2024 FERRITIN 40 06/09/2023 HGB 14.3 07/14/2024 HGB 14.3 07/14/2024 HGB 11.7 (L) 08/10/2022 HGB 12.3 (L) [...] entresto startd by cardiology 05/2022 -F/u with violin mechanic AAN Smith -furosemide 40 mg started during hospitalization 05/17/23, decreased to 20mg daily 02/2024 hospitalization -amlodipine 5mg discontinued during hospitalization 06/2023 -seen by Dr. Marcos Verdin MD 03/10/24 -continue metoprolol 100 mg daily per note, this was decreased to 25mg daily in hospital. Will contact cardiology to see correct dose. -Farxiga started 03/09/24 Assessment & Plan (09/22/2024 8:39 AM EDT): -Cardiac catheretization 05/2020 revealed severe [...] entresto startd by cardiology 05/2022 -F/u with violin mechanic ANA Smith -furosemide 40 mg started during [...] entresto startd by cardiology 05/2022 -F/u with violin mechanic ANA Smith -furosemide 40 mg started during [...] entresto startd by cardiology 05/2022 -F/u with violin mechanic ANA Smith -Furosemide 40 mg started during [...] entresto startd by cardiology 05/2022 -F/u with violin mechanic ANA mSith -Furosemide 40 mg started during hospitalization 05/17/23 [...] entresto startd by cardiology 05/2022 -F/u with violin mechanic ANA Smith Assessment & Plan (06/03/2022 11:12 [...] entresto startd by cardiology 05/2022 -F/u with violin mechanic ANA Smith Assessment & Plan (05/07/2022 10:43 [...] daily, and amlodipine 2.5mg daily -F/u with violin mechanic ANA Smith -He is overdue for follow up and was encouraged to call. Paroxysmal atrial fibrillation 05/07/2022 Overview (03/10/2024): Asymptomatic. Rate controlled -continue metprolol succinate -patient is on Coumadin Assessment & Plan (09/22/2024 8:39 AM EDT): Asymptomatic. Rate controlled -continue metprolol succinate -patient [...] Marcos Verdin MD 03/10/24 Assessment & Plan (11/29/2024 11:32 AM EDT): -Likely secondary to CAD in setting of severe alcohol use disorder. -euvolemic on exam -EF 30-35% 05/2020 -has pacemaker and mechanical aortic valve -echo 11/23/2023: moderate concentric LVH, global hypokinesis of LV contractility, EF 40-45%, indeterminate, mild pulmonary HTN diastolic dysfuntion -seen by Dr. Marcos Verdin MD 03/10/24 Assessment & Plan (09/22/2024 8:39 AM EDT): -Likely secondary to CAD in [...] (12/24/2022): -Hospitalized for subarachnoid hemorrhage 10/2021 at [facility] after fall in the setting of supratheraputic INR of 16 and heavy alcohol use. He was changed to lovenox but could not tolerate the injections. Back on coumadin with improved INRs. He is also on plavix. ER precautions discussed. Assessment & Plan (10/22/2023 11:16 AM EDT): -Hospitalized for subarachnoid hemorrhage 10/2021 at [facility] after fall in the setting of supratheraputic INR of 16 and heavy alcohol use. He was changed to lovenox but could not tolerate the injections. Back on coumadin with improved INRs. He is also on plavix. ER precautions discussed. Assessment & Plan (06/09/2023 9:36 AM EST): -Hospitalized for subarachnoid hemorrhage 10/2021 at [facility] after fall in the setting of supratheraputic INR of 16 and heavy alcohol use. He was changed to lovenox but could not tolerate the injections. Back on coumadin with improved INRs. He is also on plavix. ER precautions discussed. Assessment & Plan (08/11/2022 7:29 AM EDT): -Hospitalized for subarachnoid hemorrhage 10/2021 at [facility] after fall in the setting of supratheraputic INR of 16 and heavy alcohol use. He was changed to lovenox but could not tolerate the injections. Back on coumadin with improved INRs. He is also on plavix. ER precautions discussed. Assessment & Plan (06/03/2022 11:07 AM EST): -Hospitalized for subarachnoid hemorrhage 10/2021 at [facility] after fall in the setting of supratheraputic INR of 16 and heavy alcohol use. Now on Lovenox and clopidogrel. Assessment & Plan (05/07/2022 10:53 AM EST): Hospitalized for subarachnoid hemorrhage 10/2021 at [facility] after fall in the setting of supratheraputic [...] Overview (10/22/2023): Well controlled. Assessment & Plan (09/22/2024 8:39 AM EDT): Well controlled. Assessment & Plan (10/22/2023 1:17 [...] daily drinking and rum - established with [facility] because insurance no longer accepted by [facility]. -Patient followed at [facility] with Dr. Cristine Deleon DO, seen 06/09/23 Assessment & Plan (11/29/2024 11:32 AM EDT): Hx [address] [facility] [...] daily drinking and rum - established with [facility] because insurance no longer accepted by [facility]. -Patient followed at [facility] with Dr. Cristine Deleon DO, seen 06/09/23 Assessment & Plan (09/22/2024 8:39 AM EDT): Hx [address] Judes [...] daily drinking and rum - established with [facility] because insurance no longer accepted by [facility]. -Patient followed at [facility] with Dr. Cristine Deleon DO, seen 06/09/23 [...] daily drinking and rum - established with [facility] because insurance no longer accepted by [facility]. -Patient followed at [facility] with Dr. Cristine Deleon DO, seen 06/09/23 [...] daily drinking and rum - established with [facility] because insurance no longer accepted by [facility]. -Patient followed at [facility] with Dr. Cristine Deleon DO, seen 06/09/23 [...] daily drinking and rum - established with [facility] because insurance no longer accepted by [facility]. -Patient followed at [facility] with Dr. Cristine Deleon DO, seen 06/09/23 [...] daily drinking and rum - established with [facility] because insurance no longer accepted by [facility]. -Patient followed at [facility] with Dr. Cristine Deleon DO, [...] daily drinking and rum - established with [facility] because insurance no longer accepted by [facility]. Assessment & Plan (11/30/2022 8:51 PM EDT): hx of aortic stenosis s/p Aortic valve repair, hx of AF , cardiomyopathy with EF 25-30%, ,hx AAA repair, complete heart block s/p pacemaker,CAD s/P stent INR goal 2.5 to 3.5 -continue to f up with his violin mechanic-next apt w Dr Deleon is on 12/08/2022 - I called cards' office # [phone] and confirmed day and hour and gave [...] daily drinking and rum - Established with [facility] because insurance no longer accepted by [facility]. Assessment & Plan (06/03/2022 11:09 AM [...] ETOH with intracranial bleed. - established with [facility] because insurance no longer accepted by [facility]. Last seen 05/2022 recommending 4 week follow up Assessment & Plan (05/07/2022 10:46 AM EST): Hx [address] 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 No hx CABG. Pacemaker placed for AV radha block. -On Coumadin, managed by [facility]. - established with [facility] because insurance no longer accepted by [facility]. Presence of cardiac pacemaker 03/07/2014 Overview (12/24/2022): -Hx of [facility] Travis dual chamber PPM with extraction of device from the left side and reimplantation of the right side. For complete heart block. Assessment & Plan (09/22/2024 8:39 AM EDT): -Hx of [facility] Travis dual [...] [facility] smoking cessation group, and [facility] pharmacy smoking cessation clinic -currently smoke cigarettes or quit within the past 15 years. -LDCT: ordered 10/22/23, pt wants to wait till Spring to get it done. In precontemplative stages of quitting. Motivational interviewing done. Assessment & Plan (11/29/2024 11:32 AM EDT): -Cigg/day: more than 1 pack- daily -Age started: 11 years old -Total years smokin -Pack year history: 25 Encouraged smoking cessation resources such as pharmacomtherapy, [facility] smoking cessation [facility], and [facility] pharmacy smoking cessation clinic -currently smoke cigarettes or quit within the past 15 years. -LDCT: ordered 10/22/23, pt wants to wait till Spring to get it done. In precontemplative stages of quitting. Motivational interviewing done. Assessment & Plan (09/22/2024 8:39 AM EDT): -Cigg/day: more than 1 pack- daily -Age started: 11 years old -Total years smokin -Pack year history: 25 Encouraged smoking cessation resources such as pharmacomtherapy, [facility] smoking [facility], and [facility] pharmacy smoking cessation clinic -currently smoke [...] [facility] smoking cessation group, and [facility] pharmacy smoking cessation clinic -currently smoke [...] [facility] smoking cessation [facility], and [facility] pharmacy smoking cessation clinic -currently smoke [...] Encouraged smoking cessation resources such as pharmacomtherapy, [facility] smoking cessation group, and [facility] pharmacy smoking cessation clinic -currently smoke [...] with therapist and psychiatrist. Assessment & Plan (09/22/2024 8:39 AM EDT): Denies AMELIA. -Continue with therapist [...] -He has been referred multiple times to [facility] and has varying degrees of engagement in the past. Denies AMELIA. Hypertension 08/24/2011 Overview (03/10/2024): Multiple med changes, see med list Assessment & Plan (09/22/2024 8:39 AM EDT): Multiple med changes, see med list Assessment [...] started during hospitalization 05/17/23 [facility] Assessment & Plan (06/09/2023 9:36 AM [...] Alcohol use disorder, severe, dependence 012 Overview (11/29/2024): Pt with long history of severe alcohol dependence with multiple hospitalizations, history of withdrawal, history of withdrawal seizures, cirrhotic liver and dangerous supratheraputic INRs. Risks discussed at each visit. -continue thiamine and folate -continue with alcohol use disorder clinic -continue with therapist and psychiatrist -continue Acamprosate 333 mg 2 tabs BID started 06/09/23 Assessment & Plan (11/29/2024 11:32 AM EDT): Pt with long history of severe alcohol dependence with multiple hospitalizations, history of withdrawal, history of withdrawal seizures, cirrhotic liver and dangerous supratheraputic INRs. Risks discussed at each visit. -continue thiamine and folate -continue with alcohol use disorder clinic -continue with therapist and psychiatrist -continue Acamprosate 333 mg 2 tabs BID started 06/09/23 Assessment & Plan (09/22/2024 8:39 AM EDT): Pt with long history of severe alcohol dependence with multiple hospitalizations, history of withdrawal, history of withdrawal seizures, liver disease and dangerous supratheraputic INRs. Risks discussed at each visit. -continue thiamine and folate -continue with alcohol use disorder clinic -continue with therapist and psychiatrist -continue Acamprosate 333 mg 2 tabs BID started 06/09/23 -referred back to [facility] Clinic [facility] 09/20/24 Assessment & Plan (03/10/2024 9:54 PM EST): [...] tabs BID 06/09/23 Alcohol Use Disorder Clinic [facility] televist tolerating [...] tabs BID 06/09/23 Alcohol Use Disorder Clinic [facility] televist tolerating the medication. Admits [...] Problem Noted Date Diagnosed Date Resolved Date Decompensated cirrhosis 09/20/2024 0810/2024 Assessment & Plan (09/22/2024 8:39 AM EDT): Seizure disorder 09/20/2024 11/29/2024 Assessment & Plan (09/22/2024 8:39 AM EDT): Closed displaced fracture of acromial end of left clavicle with routine healing 08/21/202411/29 Overview (08/21/2024): -XR in ER 08/18/24 Comminuted and displaced fracture of the distal clavicle. There are several bony fragments present. No significant bayoneting or angulation. Mild superior displacement of the main fragment. Periodontal disease 06/08/2024 11/30/19 Dental root caries 06/08/2024 Assessment & Plan (09/22/2024 8:39 AM EDT): Orders: acetaminophen (Tylenol) 500 MG tablet; Take 1 tablet (500 mg) by mouth every 6 (six) hours if needed for mild pain for up to 20 doses. Excessive attrition of teeth , limited to enamel 06/08/2024 11/29/2024 Assessment & Plan (09/22/2024 8:39 AM EDT): Orders: acetaminophen (Tylenol) 500 MG tablet; Take 1 tablet (500 mg) by mouth every 6 (six) hours if needed for mild pain for up to 20 doses. Missing teeth, acquired 06/08/202411/04 Assessment & Plan (09/22/2024 8:39 AM EDT): Orders: acetaminophen (Tylenol) 500 MG tablet; Take 1 tablet (500 mg) by mouth every 6 (six) hours if needed for mild pain for up to 20 doses. Dental calculus 06/08/2024 11/29/2024 Assessment & Plan (09/22/2024 8:39 AM EDT): Orders: acetaminophen (Tylenol) 500 MG tablet; Take 1 tablet (500 mg) by mouth every 6 (six) hours if needed for mild pain for up to 20 doses. Dental abscess 05/03/2024 11/29/2024 Dental caries 05/03/2024 11/29/2024 Transaminitis 01/19/2024 03/10/2024 Closed fracture of transvers e process of lumbar vertebra with routine healing 11/10/2023 Overview (11/10/2023): -pt sustained closed fracture of multiple ribs and lumbar vertebrae 11/06/03 after fall in the setting of EtOH use Fall 06/09/2023 11/29/2024 Rhabdomyolysis 06/09/2023 10/22/2023 Sepsis 06/09/2023 10/22/2023 Ambien accidental overdose, subsequent encounter 06/09/2023 10/22/2023 Overview (06/09/2023): Confirmed with psychiatry that he is off Ambien. Assessment & Plan (06/09/2023 8:55 AM EST): Confirmed with psychiatry that he is off Ambien. Pneumonia due to infectious organism 06/09/2023 10/20/2023 EDGAR (acute kidney injury) 06/07/2023 Alcohol withdrawal 04/15/2023 04/15/2023 Alcohol abuse 12/24/2022 10/22/2023 Complete heart block 12/24/2022 025 Acute hyponatremia 12/24/2022 4 Lumbar radiculopathy 12/24/2022 [...] Encounters Date Type Department Care Team Description 11/29/2024 11:00 AM EDT Office Visit [address] [address] Nathalie Hsu MD Hypomagnesemia (Primary Dx); Alcohol use disorder, severe, dependence (CMS/HCC); Alcoholic liver disease (CMS/HCC); Anticoagulated on Coumadin; Cardiomyopathy, unspecified type (CMS/HCC); History of prosthetic heart valve; Tobacco dependence 11/29/2024 Travel 11/28/[address] [facility] [address] [place] [address] Nathalie Hsu MD CRITICAL LAB 11/28/[address] [address] Nathalie Hsu MD CHART PREP 11/24/2024 1:30 PM EDT Office Visit [address] [address] Renny Holloway MD Alcohol use disorder, severe, dependence (CMS/HCC) (Primary Dx); Nausea and vomiting, unspecified vomiting type; Hypomagnesemia 11/24/2024 Travel 11/21/[address] [facility] [address] [place] [address] Nathalie Hsu MD CRITICAL LAB 11/16/[address] [facility] [address] [place] [address] Nathalie Hsu MD History of alcohol abuse; Primary insomnia 11/14/[address] [address] Nathalie Hsu MD Critical INR 11/12/[address] [facility] [address] [place] [address] Nathalie Hsu MD History of alcohol abuse 11/09/2024 1:00 PM EDT Office Visit [facility] [address] [place] [address] Seth, Zabrina, OD Combined forms of age-related cataract of both eyes (Primary Dx); Meibomian gland disease of upper and lower eyelids of both eyes; Pinguecula of both eyes; Presbyopia 11/09/2024 Travel 11/09/2024 Refill [facility] [address] [place] [address] Nathalie Hsu MD Alcoholic liver disease ([facility]/HCC) 11/07/[address] [address] Nathalie Hsu MD INR RESULT 11/01/[address] [address] Nathalie Hsu MD Severe dental caries; Dental root caries; Advanced periodontitis; Excessive attrition of teeth, limited to enamel; Missing teeth, acquired; Dental calculus 10/31/[address] [address] Nathalie Hsu MD Results 10/30/[address] [address] Nathalie Hsu MD Medication Question 10/24/[address] [address] Nahtalie Hsu MD INR results 10/17/[address] [address] Nathalie Hsu MD Lab Orders 10/17/[address] [address] Nathalie Hsu MD Med Refill; Lab Results 10/13/2024 2:00 PM EDT Office Visit [address] [address] Renny Holloway MD Alcohol use disorder, severe, dependence ([facility]) 10/13/2024 Travel 10/10/[address] [address] Nathalie Hsu MD Coagulation Disorder 10/08/[address] [address] Nathalie Hsu MD Pain; Mild intermittent asthma without complication; History of prosthetic heart valve 10/08/[address] [address] Renny Holloway MD Alcohol use disorder, severe, dependence ([facility]) 10/06/[address] [address] Renny Holloway MD Tobacco dependence; Pain; Mild intermittent asthma without complication 10/04/[address] [address] Nathalie Hsu MD critcal lab 09/27/[address] [address] Nathalie Hsu MD PT1 09/26/[address] [address] Nathalie Hsu MD INR result 09/25/[address] [address] Nathalie Hsu MD Severe dental caries; Dental root caries; Advanced periodontitis; Excessive attrition of teeth, limited to enamel; Missing teeth, acquired; Dental calculus 09/20/2024 3:30 PM EDT Office Visit [address] [address] Nathalie Hsu MD Cardiomyopathy, unspecified type ([facility]/HCC) (Primary Dx); Chronic coronary microvascular dysfunction; History of prosthetic heart valve; Hypertension, unspecified type; Paroxysmal atrial fibrillation ([facility]/HCC); Presence of cardiac pacemaker; Anticoagulated on Coumadin; Seizure disorder ([facility]/HCC); Mild intermittent asthma, unspecified whether complicated; Alcoholic liver disease ([facility]/HCC); Alcohol use disorder, severe, dependence ([facility]/HCC); Decompensated cirrhosis ([facility]); Anemia, unspecified type; History of GI bleed; Vitamin B 12 deficiency; Depressive disorder; Tobacco dependence; Dental root caries; Severe dental caries; Dental calculus; Missing teeth, acquired; Excessive attrition of teeth, limited to enamel; Advanced periodontitis; Overweight; Dietary counseling; Exercise counseling; Other specified health status 09/20/2024 Travel 09/19/2024 10:00 AM EDT Office Visit [facility] D[facility] [address] [place] [address] Panchito Lamas DDS Advanced periodontitis (Primary Dx); Dental caries 09/19/[address] [facility] [address] [place] [address] Nathalie Hsu MD CRITICAL LAB 09/19/[address] [facility] [address] [place] [address] Elizabeth Alejandre MA chart prep 09/12/2024 Anticoagulation - Warfarin Visit [facility] [address] [place] [address] Shannan Barrow, RN History of prosthetic heart valve 09/11/2024 Patient Outreach [facility] [address] [place] [address] Nathalie Hsu MD Transition Of Care (Tcm) 09/07/2024 2:15 PM EDT Telemedicine [facility] [address] [place], [place] [phone] Amy Moreno, RN ETOH abuse; Acute pain of left shoulder 09/07/2024 Travel 09/05/[address] [facility] [address] [place] [address] Nathalie Hsu MD lab results ( INR) 08/31/2024 Orders Only [facility] External Provider, [facility] 08/31/[address] [facility] [address] [place] [address] Nathalie Hsu MD Alcoholic liver disease ([facility]/HCC) from Last 3 Months Immunizations Immunization Administration [...] 9.6 oz) 11/29/2024 11:01 AM EDT Height 167.6 cm (5' 6 ) 03/10/2024 10:18 AM EST Body Mass Index 29.63 03/10/2024 10:18 AM EST Plan of Treatment Upcoming Encounters Date Type Department Care Team (Late st Contact Info) Description 12/20/2024 2:00 PM EDT Office Visit [facility] [address] [place] [address] Nathalie Hsu MD [address] [place] [address] 01/01/2025 9:00 AM EDT Office Visit [facility] [address] [place] [address] Seth, Zabrina, OD [address] [place] [address] 01/08/2025 10:00 AM EDT Office Visit [facility] [address] [place] [address] Ulises, Chiquita [address] [place] [address] 02/16/2025 1:15 PM EST Office Visit [facility] [address] [place] [address] Renny Holloway MD [address] [place] [address] Health Maintenance Due Date Last Done Comments CT Colonography 1960 Dental Prophylaxis 1960 FIT 1960 FOBT 1960 Sigmoidoscopy 1960 RSV Patients and Patients Aged 60 years or older (1 - Risk 60-74 years 1-dose series) 2021 Colonoscopy 03/05/2022 03/05/2012 Zoster Vaccines (2 of 2) 01/19/2023 11/24/2022 Influenza Vaccine (#1) 2024 9, 06/23/2018, 12/21/2011, Additional history exists Dental Oral Exam 12/10/2024 06/08/2024 COVID-19 Vaccine ( season) 2024 05/01/2022, 11/13/2021, 11/13/2021, Additional history exists Postponed from 12/05/2023 (Patient Refused) Dental X-Ray: Bitewings 06/09/2025 06/08/2024 Depression Screening 09/20/2025 09/20/2024, 09/21/19 25 Disability Screening 09/20/2025 09/20/2024 SDOH Screening 09/20/2025 09/20/2024 Alcohol/Substance Use Screening 11/29/2025 11/29/2024 Tobacco Screening 11/29/2025 11/29/2024 Colorectal Cancer Screening 12/29/2026 FIT DNA/Cologuard 12/29/2026 [...] Associated Diagnosis Comments PROTHROMBIN TIME-INR Routine 11/28/2024 PROTHROMBIN TIME-INR Routine 11/21/2024 PROTHROMBIN TIME-INR Routine 11/14/2024 PROTHROMBIN TIME-INR Routine 11/07/2024 PROTHROMBIN TIME-INR Routine 10/31/2024 PROTHROMBIN TIME-INR Routine 10/24/2024 PROTHROMBIN TIME-INR Routine 10/17/2024 PROTHROMBIN TIME-INR Routine 10/10/2024 PROTHROMBIN TIME-INR Routine 10/03/2024 PROTHROMBIN TIME-INR Routine 09/26/2024 CASE PRESENTATION, DETAILED AND EXTENSIVE TREATMENT PLANNING Routine 09/19/2024 10:00 AM EDT 22 MFL RESIN-BASED COMPOSITE - 3 SURF, ANTERIOR Routine 09/19/2024 10:00 AM EDT 21 O RESIN-BASED COMPOSITE - 1 SURF, POSTERIOR Routine 09/19/2024 10:00 AM EDT 20 O RESIN-BASED COMPOSITE - 1 SURF, POSTERIOR Routine 09/19/2024 10:00 AM EDT 12 B(V) RESIN-BASED COMPOSITE - 1 SURF, POSTERIOR Routine 09/19/2024 10:00 AM EDT PROTHROMBIN TIME-INR Routine 09/19/2024 PROTHROMBIN TIME-INR Routine 09/12/2024 PROTHROMBIN TIME-INR Routine 09/05/2024 CT HEAD WO CONTRAST Routine 08/31/2024 9 :21 PM EDT PROTHROMBIN TIME-INR Routine 08/29/2024 INTRAORAL - COMPLETE SERIES OF RADIOGRAPHIC IMAGES Routine 06/08/2024 9:30 AM EST PERIODIC ORAL EVALUATION - ESTABLISHED PATIENT Routine 06/08/2024 9:30 AM EST LAB COLOGUARD COLON CANCER SCREEN Routine 12/30/2023 1:30 AM [...] Health Maintenance Results * (ABNORMAL) Prothrombin Time-INR (11/28/2024) Only the most recent of14 resultswithin the time period is included. INR 2.10(L) 2.50 - 3.50 EXTERNAL LAB Protime EXTERNAL LAB Blood Venous blood specimen / Unknown Nathalie Hsu MD LAB BLOOD ORDERABLES Final Result EXTERNAL LAB * CT Head w/o Contrast (08/31/2024 9:21 PM EDT) Anatomical Region Laterality Modality Head, Neck Computed Tomogra phy 08/31/2024 9:21 PM EDT Narrative 08/31/2024 9:23 PM EDT [place] [address] CT Scan Report Signed Patient: Omid Caballero MR#: [id number] 14 : 1960 Acct:[id number] Age/Sex: 64 / M ADM Date: 08/31/24 Loc: HO.ED Attending Dr: Ordering Physician: Greta Daniels CNP Date of Service: 08/31/24 Procedure(s): CT head/brain wo IV con Accession Number(s): [id number] cc: Greta Daniels CNP; Nathalie Hsu MD Report Number: [id number]: Total DLP = 0.00 mGy-cm CLINICAL HISTORY: fall, ETOH CT head without contrast Comparison: CT/SR - CT HEAD/BRAIN WO IV CON - 01/23/24 03:00 EDT Findings: No intra-axial mass, midline shift, hydrocephalus, or acute hemorrhage. Encephalomalacia in the right temporal lobe. Mild cerebral atrophy globally. Wall calcifications of the carotid siphons and the intracranial vertebral arteries and basilar artery. Mild mucosal thickening of the frontoethmoidal recesses. Small amount of fluid in the left maxillary sinus. Previous left maxillary sinus surgery. The orbits are within normal limits. Prior parietal craniotomy. IMPRESSION: 1. No acute intracranial findings. This document has been electronically signed by: Suhas Cleveland MD on 08/31/2024 21:21:20 Dictated By: Suhas Cleveland MD Signed By: <Electronically signed by Suhas Cleveland MD in OV> 08/31/242121 DD/ 20 TD/TT: 08/31/242120 Valet Parker: Procedure Note Donotuseinterpreter, Image - 08/31/[address] [place] [address] [address] Scan Report Signed Patient: Mandi Caballero#: [id number] 14 : 1960cct:[id number] Age/Sex: 64 / MADM Date: 08/31/24 Loc: .ED Attending Dr: Ordering Physician: Greta Daniels CNP Date of Service: 08/31/24 Procedure(s): CT head/brain wo IV con Accession Number(s): [id number] cc: Greta Daniels CNP; Nathalie Hsu MD Report Number: [id number]: Total DLP = 0.00 mGy-cm CLINICAL HISTORY: fall, ETOH CT head without contrast Comparison: CT/SR - CT HEAD/BRAIN WO IV CON - 01/23/24 03:00 EDT Findings: No intra-axial mass, midline shift, hydrocephalus, or acute hemorrhage. Encephalomalacia in the right temporal lobe. Mild cerebral atrophy globally. Wall calcifications of the carotid siphons and the intracranial vertebral arteries and basilar artery. Mild mucosal thickening of the frontoethmoidal recesses. Small amount of fluid in the left maxillary sinus. Previous left maxillary sinus surgery. The orbits are within normal limits. Prior parietal craniotomy. IMPRESSION: 1. No acute intracranial findings. This document has been electronically signed by: Suhas Cleveland MD on 08/31/2024 21:21:20 Dictated By: Suhas Cleveland MD Signed By: <Electronically signed by Suhas Cleveland MD in OV> 08/31/242121 DD/ 20 TD/TT: 08/31/242120 Valet Parker: [facility] External Provider IMG CT PROCEDURES Edited Result - Final * Cologuard?? colon cancer screening (12/30/2023 1:30 AM EDT) Cologuard Result Negative Negative 01/05/20 1:07 AM EDT [email or web address] (CLIA #:[id number]) Comment: NEGATIVE TEST RESULT. A negative Cologuard result indicates a low likelihood that a colorectal cancer (CRC) or advanced adenoma (adenomatous polyps with more advanced pre-malignant features) is present. The chance that a person with a negative Cologuard test has a colorectal cancer is less than 1 in 1500 (negative predictive value >99.9%) or has an advanced adenoma is less than 5.3% (negative predictive value 94.7%). These data are based on a prospective cross-sectional study of 10,000 individuals at average risk for colorectal cancer who were screened with both Cologuard and colonoscopy. (Tien Haq et al, N Engl J Med 2014;370(14):5480-5600) The normal value (reference range) for this assay is negative. COLOGUARD RE-SCREENING RECOMMENDATION: Periodic colorectal cancer screening is an important part of preventive healthcare for asymptomatic individuals at average risk for colorectal cancer. Following a negative Cologuard result, the [place] [employer] Society and U.S. Multi-Society Task Force screening guidelines recommend a Cologuard re-screening interval of 3 years. References: [place] [employer] Guideline for Colorectal Cancer Screening: https://www.cancer.org/cancer/pqqhk-itmbre-ydxneq/nkxjyfuct-ostbxqyms-xwawxqn/ac s-rec ommendations.html.; Honorio PINA, Lita NEGRETE, Luba JamesK, Colorectal Cancer Screening: Recommendations for Physicians and Patients from the U.S. Multi-Society Task Force on Colorectal Cancer Screening , Am J Gastroenterology 2017; 112:3601-9160. TEST DESCRIPTION: Composite algorithmic analysis of stool DNA-biomarkers with hemoglobin immunoassay. Quantitative values of individual biomarkers are not [...] (Tien Landeros al, N Engl J Med 2014;370(14):7973-8308.) Cologuard may produce a false negative or false positive result (no colorectal cancer or precancerous polyp present at colonoscopy follow up). A negative Cologuard test result does not guarantee the absence of CRC or advanced adenoma (pre-cancer). The current Cologuard screening interval is every 3 years. ([place] [employer] and U.S. Multi-Society Task Force). Cologuard performance data in a 10,000 patient pivotal study using colonoscopy as the reference method can be accessed at the following location: www.NORCAT.DataSync/results. Additional description of the Cologuard test process, warnings and precautions can be found at www.Abcelluterd.com. Stool specimen (specimen) Rectal contents / Unknown 12/30/2023 1:30 AM EDT 01/01/2024 3:30 PM EDT Nathalie Hsu MD LAB MOLECULAR DIAGNOSTICS ORDERABLES Final Result [email or web address] (CLIA #:[id number]) [place] [address], [place] [phone] * Hepatitis C Antibody with Reflex to HCV, RNA, Quantitative, Real-Time PCR (08/10/2022 11:24 AM EDT) Pathologist [facility] Hepatitis C Antibody NON-REACT KG NON-REACT KG [facility] [place] [facility] Index 0.13 <1.00 [facility] [place] [facility] Comment: HCV antibody was non-reactive. There is no laboratory evidence of HCV infection. In most cases, no further action is required. However, if recent HCV exposure is suspected, a test for HCV RNA (test code 04335) is suggested. For additional information please refer to http://education.[employer]/faq/LPB82t3 (This link is being provided for informational/ educational purposes only.) Blood Venous blood specimen / Unknown 08/10/2022 11:24 AM EDT 08/10/2022 11:25 AM EDT Narrative [facility] - 08/16/2022 12:40 AM EDT FASTING:NO FASTING: NO Nathalie Hsu MD LAB BLOOD ORDERABLES Final Result Performing Organization Address City/[facility] Co de Phone Number [facility] [address], [place] [address] [facility] [place] [facility] [address] [place] [address] * HIV-1/2 Antigen and Antibodies, Fourth Generation, with Reflexes (08/10/2022 11:24 AM EDT) Pathologist [facility] HIV Antigen/Antibody, 4th Generation NON-REAC TIVE NON-REAC TIVE [facility] [place] [facility] Comment: HIV-1 antigen and HIV-1/HIV-2 antibodies were not detected. There is no laboratory evidence of HIV infection. PLEASE NOTE: This information has been disclosed to you from records whose confidentiality may be protected by state law. If your state requires such protection, then the state law prohibits you from making any further disclosure of the information without the specific written consent of the person to whom it pertains, or as otherwise permitted by law. A general authorization for the release of medical or other information is NOT sufficient for this purpose. For additional information please refer to http://IVDesk.[employer]/faq/JAJ912 (This link is being provided for informational/ educational purposes only.) The performance of this assay has not been clinically validated in patients less than 2 years old. Blood Venous blood specimen / Unknown 08/10/2022 11:24 AM EDT 08/10/2022 11:25 AM EDT Narrative [facility] - 08/16/2022 12:40 AM EDT FASTING:NO FASTING: NO us Nathalie Hsu MD LAB BLOOD ORDERABLES Final Result [facility] [address], [place] [address] [facility] [place] [facility] [address] [place] [address] * Lipid Panel, Standard (08/10/2022 11:24 AM EDT) [facility] Signature Cholesterol, Total 161 <200 mg/dL [facility] [place] [facility] HDL Cholesterol 62 > OR = 40 mg/dL [facility] [place] [facility] Triglycerides 109 <150 mg/dL [facility] [place] [facility] LDL Cholesterol 80 mg/dL (calc) [facility] [place] [facility] Comment: Reference range: <100 Desirable range <100 mg/dL for primary prevention; <70 mg/dL for patients with CHD or diabetic patients with > or = 2 CHD risk factors. LDL-C is now calculated using the Gallo calculation, which is a validated novel method providing better accuracy than the Friedewald equation in the estimation of LDL-C. Anthony LITTLE et al. FLAKITA. 2013;310(19): 1533-5149 (http://education.Tappit.DataSync/faq/GLL031) Chol/HDLC Ratio 2.6 <5.0 (calc) [facility] [place] [facility] Non-HDL Cholesterol 99 <130 mg/dL (calc) [facility] [place] [facility] Comment: For patients with diabetes plus 1 major ASCVD risk factor, treating to a non-HDL-C goal of <100 mg/dL (LDL-C of <70 mg/dL) is considered a therapeutic option. Blood Venous blood specimen / Unknown 08/10/2022 11:24 AM EDT 08/10/2022 11:25 AM EDT Narrative [facility] - 08/16/2022 12:40 AM EDT FASTING:NO FASTING: NO Nathalie Hsu MD LAB BLOOD ORDERABLES Final Result [facility] [address], [place] [address] [facility] [place] [facility] [address] [place] [address] * Colonoscopy (03/05/2012) Colonoscopy Dr. 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 Advance Directives and Living Will 06/10/2023 1:14 PM Health Care Proxy Care Teams Radio Repairer Domestic Relationship Specialty Start Date End Date [place], [place] Nathalie [address] [place] [phone] PCP - General Family Medicine 09/27/13 Shannan Barrow, KHAI [address] [place] [address] Registered Nurse 02/29/24 Lisbeth Johnson [address] [place] [address] 3rd Floor [place] [address] Gastroenterology 03/15/24 Tonya Poole Mill Tender Second OperatorPersonal Lines Insurance Agent 01/19/24 Sherin ([facility]) Registered Nurse 02/29/24 MD [facility]bert [facility] [address] [place] [address] Cardiology 03/10/24 Omid [place] Psychiatry 03/15/24
--- OUTSIDE RECORDS SUMMARY | 2024-11-29 11:34 | XMS_ITS | Encounter Summary ---
Author Organization [facility] [facility] Address [address] [facility] 7t [place] [address] Care Team Providers Care Management Analyst Name Role Phone Nathalie Hsu MD Primary Care Provider [phone]- [phone] Shannan Barrow RN Unavailable [phone] Lisbeth Johnson Unavailable Encounter Details Date Type Department Care Team ([facility] Contact Info) Description 05/12/2022 Abstract [facility] MEDICINE [address] [place] [address] Nathalie Hsu MD [address] [place] [address] [phone] Social History Tobacco Use Types Packs/Day Years [...] Upcoming Encounters Date Type Department Care Team ([facility] Contact Info) Description 12/20/2024 2:00 PM EDT Office Visit [facility] MEDICINE [address] [place] [address], [place] [address] Nathalie Hsu MD 230 [place] [address] 01/01/2025 9:00 AM EDT Office Visit [facility] OPTOMETRY [address] [place] [address] Seth, Zabrina, OD 230 [place] [address] 01/08/2025 10:00 AM EDT Office Visit [facility] ADULT DENTAL 230 [place] [address] Ulises, Chiquita 230 [place] [address] 02/16/2025 1:15 PM EST Office Visit [facility] MEDICINE 230 [place] [address] Renny Holloway MD 230 [place] [address] documented as of this encounter Procedures Procedure Name Priority Date/Time Associated Diagnosis Comments COLONOSCOPY Routine 03/05/2012 documented in this encounter Results * Colonoscopy (03/05/2012) Colonoscopy Dr. Zhang Historical Provider HEALTH MAINTENANCE Final Result documented in this encounter Visit Diagnoses Not on filedocumented in this encounter Additional Health Concerns Assessment Noted Time PHQ-9 Depression Total Score: 6 05/08/19 23 10:33 AM EST documented as of this encounter Care Teams Management Analyst Relationship Specialty Start Date End Date Nathalie Hsu MD [address] [place] [address] PCP - General Family Medicine 09/27/13 Shannan Barrow, KHAI [address] [place] [address] Registered Nurse 02/29/24 Lisbeth Johnson [address] [place] [address] Drive 3rd [place] [address] Gastroenterology 03/15/24 Tonya Poole Air Brake TesterPerfumer 01/19/24 Sherin (A [facility]) Registered Nurse 02/29/24 Marcos Verdin MD [place] [facility] [address] [place] [address] Cardiology 03/10/24 Omid [place] Psychiatry 03/15/24 documented as of this encounter
--- OUTSIDE RECORDS SUMMARY | 2024-11-29 11:34 | XMS_ITS | Encounter Summary ---
Author Organization [employer] Address 75 [facility] 7t [place] [address] Care Team Providers Care Drop Wire Operator Name Role Phone Nathalie Hsu MD Primary Care Provider [phone]- [phone] Shannan Barrow RN Unavailable [phone] Lisbeth Johnson Unavailable Reason for Visit * Reason Onset Date Comments Med Refill 07/01/2023 Encounter Details Date Type Department Care Team (Late st Contact Info) Description 07/01/[address] [facility] MEDICINE 230 [place], [place] [phone] Nathalie Hsu MD 230 [place], [place] [phone] Med Refill Social History Tobacco Use Types [...] the past 12 months, has t he [employer], [employer], oil or water [employer] threatened to shut off services in your [...] AM EDT Medication was sent to [facility] on 03/03/23 90 day supply with 1 refill. * Telephone Encounter - Amie Ramsey - 07/01/2023 9:06 AM EDT TC from pt requesting medication refill. Medications needing refill : pantoprazole (ProtoNix) 40 MG EC tablet To be sent to: [facility] - [place], [place] - [address] [place] [address] 230 [facility] [id number] documented in this encounter Plan of Treatment Upcoming Encounters Date Type Department Care Team ([facility] st Contact Info) Description 12/20/2024 2:00 PM EDT Office Visit [facility] MEDICINE 230 [place], [place] [phone] Nathalie Hsu MD [address] [place] [address] [place] [address] 01/01/2025 9:00 AM EDT Office Visit [facility] OPTOMETRY [address] [place] [address] Zabrina Ann, OD 230 [place] [address] 01/08/2025 10:00 AM EDT Office Visit [facility] ADULT DENTAL 230 [place] [address] Ulises, Chiquita 230 [place] [address] 02/16/2025 1:15 PM EST Office Visit [facility] MEDICINE 230 [place] [address] Renny Holloway MD 230 [place] [address] documented as of this encounter Visit Diagnoses Not on filedocumented in this encounter Additional Health Concerns Assessment Noted Time PHQ-9 Depression Total Score: 0 06/09/19 24 9:13 AM EST documented as of this encounter Care Teams Drop Wire Operator Relationship Specialty Start Date End Date Nathalie Hsu MD [address] [place] [address] PCP - General Family Medicine 09/27/13 Shannan Barrow, RN [address] [place] [address] Registered Nurse 02/29/[address] 3rd [place] [address] Gastroenterology 03/15/24 Tonya Poole Investigation LieutenantStacker Straightener 01/19/24 Sherin ([facility]) Registered Nurse 02/29/24 Marcos Verdin MD [place] [facility] [address] [place] [address] Cardiology 03/10/24 Omid [place] Psychiatry 03/15/24 documented as of this encounter
--- OUTSIDE RECORDS SUMMARY | 2024-11-29 11:34 | XMS_ITS | Encounter Summary ---
Author Organization [email or web address] Address 75 [facility] 7t [place] [address] Care Team Providers Care Logistics Account Manager Name Role Phone Nathalie Hsu MD Primary Care Provider [phone]- [phone] Shannan Barrow RN Unavailable [phone] Lisbeth Johnson Unavailable Reason for Visit * Reason Onset Date Comments Results 01/12/2023 INR Encounter Details Date Type Department Care Team (Late st Contact Info) Description 01/12/2023 Telephone [facility] MEDICINE [address] [place] [address] Nathalie Hsu MD 230 [place], [place] [phone] Results (INR) Social History Tobacco Use Types [...] 12:36 PM EDT Tc from [facility] at [employer] reporting INR results. Please call [phone] documented in this encounter Plan of Treatment Upcoming Encounters Date Type Department Care Team (Late st Contact Info) Description 12/20/2024 2:00 PM EDT Office Visit [facility] MEDICINE [address] [place] [address] Nathalie Hsu MD 230 [place] [address] 01/01/2025 9:00 AM EDT Office Visit [facility] OPTOMETRY [address] [place] [address] Seth, Zabrina, OD 230 [place] [address] 01/08/2025 10:00 AM EDT Office Visit [facility] ADULT DENTAL [address] [place] [address] Ulises Chiquita [address] [place] [address] 02/16/2025 1:15 PM EST Office Visit [facility] MEDICINE [address] [place] [address] Renny Holloway MD 230 [place] [address] documented as of this encounter Visit Diagnoses Not on filedocumented in this encounter Additional Health Concerns Assessment Noted Time PHQ-9 Depression Total Score: 6 05/08/19 23 10:33 AM EST documented as of this encounter Care Teams Logistics Account Manager Relationship Specialty Start Date End Date Nathalie Hsu MD 230 [place], [place] [phone] PCP - General Family Medicine 09/27/13 Shannan Barrow, RN 230 [place], [place] [phone] Registered Nurse 02/29/24 Lisbeth Johnson [address] [place] [address] 3rd [place] [address] Gastroenterology 03/15/24 Tonya Poole Accountant CostDisability Case Manager 01/19/24 Sherin ([facility]) Registered Nurse 02/29/24 Marcos Verdin MD [place] [facility] [address] [place] [address] Cardiology 03/10/24 Omid [place] Psychiatry 03/15/24 documented as of this encounter
--- OUTSIDE RECORDS SUMMARY | 2024-11-29 11:34 | XMS_ITS | Encounter Summary ---
Author Organization [employer] Address [address] [facility] [address] 7t [place] [address] Care Team Providers Care Mechanical System Technician Name Role Phone Nathalie Hsu MD Primary Care Provider [phone]- [phone] Shannan Barrow RN Unavailable [phone] Lisbeth Johnson Unavailable Reason for Visit * Reason Onset Date Comments Med Refill 03/09/2024 Encounter Details Date Type Department Care Team (Late st Contact Info) Description 03/09/2024 Telephone [facility] MEDICINE 230 [place] [address] Nathalie Hsu MD 230 [place], [place] [phone] Med Refill Social History Tobacco Use Types [...] 9:13 AM EST Medication was sent to [facility] on 12/13/23 #60 with 3 refills. * Telephone Encounter - Alf Avilez - 03/09/2024 9:07 AM EST TC from pt requesting medication refill. Medications needing refill : melatonin 5 MG tablet To be sent to: [facility] documented in this encounter Plan of Treatment Upcoming Encounters Date Type Department Care Team (Late st Contact Info) Description 12/20/2024 2:00 PM EDT Office Visit [facility] MEDICINE 230 [place] [address] Nathalie Hsu MD 230 [place] [address] 01/01/2025 9:00 AM EDT Office Visit [facility] OPTOMETRY [address] [place] [address] Seth, Zabrina, OD 230 [place] [address] 01/08/2025 10:00 AM EDT Office Visit [facility] ADULT DENTAL 230 [place] [address] Ulises, Chiquita 230 [place] [address] 02/16/2025 1:15 PM EST Office Visit [facility] MEDICINE 230 [place] [address] Renny Holloway MD 230 [place] [address] documented as of this encounter Visit Diagnoses Not on filedocumented in this encounter Additional Health Concerns Assessment Noted Time PHQ-9 Depression Total Score: 0 06/09/19 9:13 AM EST documented as of this encounter Care Teams Mechanical System Technician Relationship Specialty Start Date End Date Nathalie Hsu MD [address] [place] [address] PCP - General Family Medicine 09/27/13 Shannan Barrow, KHAI [address] [place] [address] Registered Nurse 02/29/[address] 3rd [place] [address] Gastroenterology 03/15/24 Tonya Poole Crystal EvaluatorReal Estate Services Coordinator 01/19/24 Sherin ([facility]) Registered Nurse 02/29/24 Marcos Verdin MD [place] [facility] [address] [place] [address] Cardiology 03/10/24 Omid [place] Psychiatry 03/15/24 documented as of this encounter
--- OUTSIDE RECORDS SUMMARY | 2024-11-29 11:34 | XMS_ITS | Encounter Summary ---
Author Organization [employer] Address 75 [facility] 7t [place] [address] Care Team Providers Care Payloader Machine Operator Name Role Phone Nathalie Hsu MD Primary Care Provider [phone]- [phone] Shannan Barrow RN Unavailable [phone] Lisbeth Johnson Unavailable Encounter Details Date Type Department Care Team (Late st Contact Info) Description 08/11/2023 Telephone [facility] MEDICINE 230 [place], [place] [phone] Nathalie Hsu MD 230 [place], [place] [phone] Social History Tobacco Use Types Packs/Day Years [...] EDT Office Visit [facility] MEDICINE [address] [place] [address] Nathalie Hsu MD 230 [place] [address] 01/01/2025 9:00 AM EDT Office Visit [facility] OPTOMETRY 267 [place] [address] SethZabrina funes, OD 230 [place] [address] 01/08/2025 10:00 AM EDT Office Visit [facility] ADULT DENTAL 230 [place] [address] Ulises Chiquita 230 [place] [address] 02/16/2025 1:15 PM EST Office Visit [facility] MEDICINE [address] [place] [address] Renny Holloway MD 230 [place] [address] documented as of this encounter Visit Diagnoses Not on filedocumented in this encounter Additional Health Concerns Assessment Noted Time PHQ-9 Depression Total Score: 0 06/09/19 24 9:13 AM EST documented as of this encounter Care Teams Payloader Machine Operator Relationship Specialty Start Date End Date Nathalie Hsu MD 230 [place] [address] PCP - General Family Medicine 09/27/13 Shannan Barrow, RN 230 [place] [address] Registered Nurse 02/29/24 Lisbeth Johnson [address] [place] [address] 3rd [place] [address] Gastroenterology 03/15/24 Tonya Poole Endocrinology PhysicianExecutive Legal Secretary 01/19/24 Sherin ([facility]) Registered Nurse 02/29/24 MD Wilbert [facility] and [facility] [address] [place] [address] Cardiology 03/10/24 Omid [place] Psychiatry 03/15/24 documented as of this encounter
--- OUTSIDE RECORDS SUMMARY | 2024-11-29 11:34 | XMS_ITS | Encounter Summary ---
Author Organization [employer] [facility] Address [address] [place] [address] 7t [place] [address] Care Team Providers Care Press Setup Operator Name Role Phone Nathalie Hsu MD Primary Care Provider Shannan Barrow RN Unavailable [phone] Lisbeth Johnson Unavailable Encounter Details Date Type Department Care Team (Late st Contact Info) Description 04/01/2022 Orders Only [facility] MEDICINE 230 [place] [address] Anabell Weston, KHAI Social History Tobacco Use [...] Department Care Team (Late Contact Info) Description 12/20/2024 2:00 PM EDT Office Visit [facility] MEDICINE 230 [place] [address] Nathalie Hsu MD 230 [place] [address] 01/01/2025 9:00 AM EDT Office Visit [facility] OPTOMETRY [address] [place] [address] Zabrina Ann, OD 230 [place] [address] 01/08/2025 10:00 AM EDT Office Visit [facility] ADULT DENTAL 230 [place] [address] Chiquita Montgomery 230 [place] [address] 02/16/2025 1:15 PM EST Office Visit [facility] MEDICINE [address] [place] [address] Renny Holloway MD 230 [place] [address] documented as of this encounter Visit Diagnoses Not on filedocumented in this encounter Care Teams Press Setup Operator Relationship Specialty Start Date End Date Nathalie Hsu MD [address] [place] [address] PCP - General Family Medicine 09/27/13 Shannan Barrow, KHAI [address] [place] [address] Registered Nurse 02/29/24 Lisbeth Johnson [address] [place] [address] 3rd [place] [address] Gastroenterology 03/15/24 Tonya Poole Evaporator RepairerCafeteria Supervisor 01/19/24 Sherin (A [facility]) Registered Nurse 02/29/24 Marcos Verdin MD [place] [facility] [address] [place] [address] Cardiology 03/10/24 Omid [place] Psychiatry 03/15/24 documented as of this encounter
--- OUTSIDE RECORDS SUMMARY | 2024-11-29 11:34 | XMS_ITS | Encounter Summary ---
Author Organization [employer] Address [address] [facility] [address] 7t [place] [address] Care Team Providers Care Social Work Supervisor Name Role Phone Nathalie Hsu MD Primary Care Provider [phone]- [phone] Shannan Barrow RN Unavailable [phone] Lisbeth Johnson Unavailable Encounter Details Date Type Department Care Team (Late st Contact Info) Description 05/12/2023 Orders Only [facility] MEDICINE 230 [place], [place] [phone] Nathalie Hsu MD 230 [place], [place] [phone] Social History Tobacco Use Types Packs/Day Years [...] Description 12/20/2024 2:00 PM EDT Office Visit [facility] MEDICINE [address] [place] [address] Nathalie Hsu MD [address] [place] [address] 01/01/2025 9:00 AM EDT Office Visit [facility] OPTOMETRY 267 [place] [address] Seth, Zabrina, OD 230 [place] [address] 01/08/2025 10:00 AM EDT Office Visit [facility] ADULT DENTAL 230 [place] [address] Ulises, Chiquita 230 [place] [address] 02/16/2025 1:15 PM EST Office Visit [facility] MEDICINE [address] [place] [address] Renny Holloway MD [address] [place] [address] documented as of this encounter Visit Diagnoses Not on filedocumented in this encounter Additional Health Concerns Assessment Noted Time PHQ-9 Depression Total Score: 6 05/08/19 23 10:33 AM EST documented as of this encounter Care Teams Social Work Supervisor Relationship Specialty Start Date End Date Nathalie Hsu MD 230 [place] [address] PCP - General Family Medicine 09/27/13 Shannan Barrow, RN 230 [place] [address] Registered Nurse 02/29/24 Lisbeth Johnson [address] [place] [address] 3rd [place] [address] Gastroenterology 03/15/24 Tonya Poole Paint Mixer MachineMutual Fund Sales Agent 01/19/24 Sherin (A [facility]) Registered Nurse 02/29/24 Marcos Verdin MD [place] [facility] [address] [place] [address] Cardiology 03/10/24 Omid [place] Psychiatry 03/15/24 documented as of this encounter
--- OUTSIDE RECORDS SUMMARY | 2024-11-29 11:34 | XMS_ITS | Encounter Summary ---
Author Organization [employer] Address [address] [facility] [address] 7t [place] [address] Care Team Providers Care Furniture Rental Consultant Name Role Phone Nathalie Hsu MD Primary Care Provider [phone]- [phone] Shannan Barrow RN Unavailable [phone] Lisbeth Johnson Unavailable Reason for Visit * Reason Comments Med Refill Encounter Details Date Type Department Care Team (Late st Contact Info) Description 11/01/2023 Refill [facility] & PEDS [address] [place], [place] [phone] Nathalie Hsu MD 230 [place], [place] [phone] Mild intermittent asthma, unspecified whether complicated Social [...] the past 12 months, has t he [employer], gas, oil or water [employer] threatened to shut off services in your [...] Description 12/20/2024 2:00 PM EDT Office Visit [facility] MEDICINE [address] [place] [address] Nathalie Hsu MD [address] [place] [address] 01/01/2025 9:00 AM EDT Office Visit [facility] OPTOMETRY 267 [place] [address] SethZabrina funes, OD 230 [place] [address] 01/08/2025 10:00 AM EDT Office Visit [facility] ADULT DENTAL 230 [place] [address] Ulises Chiquita 230 [place] [address] 02/16/2025 1:15 PM EST Office Visit [facility] MEDICINE [address] [place] [address] Renny Holloway MD [address] [place] [address] documented as of this encounter Visit Diagnoses Diagnosis Mild intermittent asthma, unspecified whether complicated documented in this encounter Additional Health Concerns Assessment Noted Time PHQ-9 Depression Total Score: 0 06/09/19 24 9:13 AM EST documented as of this encounter Care Teams Furniture Rental Consultant Relationship Specialty Start Date End Date Nathalie Hsu MD 230 [place] [address] PCP - General Family Medicine 09/27/13 Shannan Barrow, KHAI 230 [place] [address] Registered Nurse 02/29/24 Lisbeth Johnson [address] [place] [address] 3rd [place] [address] Gastroenterology 03/15/24 Tonya Poole Senior Clinical Project ManagerCustomer Project Manager 01/19/24 Sherin ([facility]) Registered Nurse 02/29/24 Marcos Verdin MD [place] [facility] [address] [place] [address] Cardiology 03/10/24 Omid [place] Psychiatry 03/15/24 documented as of this encounter
--- OUTSIDE RECORDS SUMMARY | 2024-11-29 11:34 | XMS_ITS | Encounter Summary ---
Author Organization [email or web address] Address 75 [facility] 7t [place] [address] Care Team Providers Care Spotter Driver Name Role Phone Nathalie Hsu MD Primary Care Provider [phone] Shannan Barrow RN Unavailable [phone] Lisbeth Johnson Unavailable Reason for Visit * Reason Comments Med Refill Encounter Details Date Type Department Care Team (Late st Contact Info) Description 02/12/2023 Refill [facility] MEDICINE 230 [place], [place] [phone] Nathalie Hsu MD 230 [place], [place] [phone] Pain Social History Tobacco Use Types Packs/Day [...] 12/20/2024 2:00 PM EDT Office Visit [facility] MEDICINE [address] [place] [address] Nathalie Hsu MD [address] [place] [address] 01/01/2025 9:00 AM EDT Office Visit [facility] OPTOMETRY [address] [place] [address] Seth, Zabrina, OD 230 [place] [address] 01/08/2025 10:00 AM EDT Office Visit [facility] ADULT DENTAL 230 [place] [address] Ulises, Chiquita 230 [place] [address] 02/16/2025 1:15 PM EST Office Visit [facility] MEDICINE 230 [place] [address] Renny Holloway MD 230 [place] [address] documented as of this encounter Visit Diagnoses Diagnosis Pain Generalized pain documented in this encounter Additional Health Concerns Assessment Noted Time PHQ-9 Depression Total Score: 6 05/08/19 23 10:33 AM EST documented as of this encounter Care Teams Spotter Driver Relationship Specialty Start Date End Date Nathalie Hsu MD 230 [place] [address] PCP - General Family Medicine 09/27/13 Shannan Barrow, RN 230 [place] [address] Registered Nurse 02/29/24 Lisbeth Johnson [address] 3rd [place] [address] Gastroenterology 03/15/24 Tonya Poole Box Office AgentElectronics Assembler 01/19/24 Sherin ([facility]) Registered Nurse 02/29/24 Marcos Verdin MD [place] and [facility] [address] [place] [address] Cardiology 03/10/24 Omid [place] Psychiatry 03/15/24 documented as of this encounter
--- OUTSIDE RECORDS SUMMARY | 2024-11-29 11:34 | XMS_ITS | Encounter Summary ---
Author Organization [employer] Address [address] [facility] [address] 7t [place] [address] Care Team Providers Care Store Administrative Assistant Name Role Phone Nathalie Hsu MD Primary Care Provider +1- [phone] Shannan Barrow RN Unavailable [phone] Lisbeth Johnson Unavailable Reason for Visit * Reason Onset Date Comments Coagulation Disorder 05/12/2023 Encounter Details Date Type Department Care Team (Late st Contact Info) Description 05/12/2023 Telephone [facility] 230 [place], [place] [phone] Nathalie Hsu MD 230 [place], [place] [phone] Coagulation Disorder Social History Tobacco Use Types [...] - 05/12/2023 3:27 PM EST Tc from robert (KAVIN) calling to report INR. Please contact robert at [phone] documented in this encounter Plan of Treatment Upcoming Encounters Date Type Department Care Team (Late st Contact Info) Description 12/20/2024 2:00 PM EDT Office Visit [facility] 230 [place] [address] Nathalie Hsu MD 230 [place] [address] 01/01/2025 9:00 AM EDT Office Visit [facility] OPTOMETRY [address] [place] [address] Zabrina Ann, OD 230 [place] [address] 01/08/2025 10:00 AM EDT Office Visit [facility] ADULT DENTAL 230 [place] [address] Ulises, Chiquita 230 [place] [address] 02/16/2025 1:15 PM EST Office Visit [facility] 230 [place] [address] Renny Holloway MD 230 [place] [address] documented as of this encounter Visit Diagnoses Not on filedocumented in this encounter Additional Health Concerns Assessment Noted Time PHQ-9 Depression Total Score: 6 05/08/19 23 10:33 AM EST documented as of this encounter Care Teams Store Administrative Assistant Relationship Specialty Start Date End Date Nathalie Hsu MD 230 [place], [place] [phone] PCP - General Family Medicine 09/27/13 Shannan Barrow, KHAI [address] [place] [address] [phone] Registered Nurse 02/29/24 Lisbeth Johnson [address] [place] [address] Drive 3rd [place] [address] Gastroenterology 03/15/24 Tonya Poole Window CutterRetouching Operator 01/19/24 Sherin ([facility]) Registered Nurse 02/29/24 Marcos Verdin MD [place] [facility] [address] [place] [address] Cardiology 03/10/24 Omid Vincent Psychiatry 03/15/24 documented as of this encounter
--- OUTSIDE RECORDS SUMMARY | 2024-11-29 11:34 | XMS_ITS | Encounter Summary ---
Author Organization [employer] Address [address] [facility] [address] 7t [place] [address] Care Team Providers Care Driver/Refuse Collector Name Role Phone Nathalie Hsu MD Primary Care Provider [phone]- [phone] Shannan Barrow RN Unavailable [phone] Lisbeth Johnson Unavailable Reason for Visit * Reason Onset Date Comments INR report 03/31/2023 Encounter Details Date Type Department Care Team (Late st Contact Info) Description 03/31/2023 Telephone [facility] MEDICINE 230 [place], [place] [phone] Nathalie Hsu MD 230 [place], [place] [phone] INR report Social History Tobacco Use Types [...] PM EST Tc from Raman VALE with [employer] requesting a call from a nurse to report an INR results. Please contact Raman @ [phone] documented in this encounter Plan of Treatment Upcoming Encounters Date Type Department Care Team (Late st Contact Info) Description 12/20/2024 2:00 PM EDT Office Visit [facility] MEDICINE 230 [place] [address] Nathalie Hsu MD 230 [place] [address] 01/01/2025 9:00 AM EDT Office Visit [facility] OPTOMETRY 267 [place] [address] Zabrina Ann, OD 230 [place] [address] 01/08/2025 10:00 AM EDT Office Visit [facility] ADULT DENTAL 230 [place] [address] Adalberto Montgomeryaris 230 [place] [address] 02/16/2025 1:15 PM EST Office Visit [facility] MEDICINE 230 [place] [address] Renny Holloway MD 230 [place] [address] documented as of this encounter Visit Diagnoses Not on filedocumented in this encounter Additional Health Concerns Assessment Noted Time PHQ-9 Depression Total Score: 6 05/08/19 23 10:33 AM EST documented as of this encounter Care Teams Driver/Refuse Collector Relationship Specialty Start Date End Date Nathalie Hsu MD 230 [place] [address] PCP - General Family Medicine 09/27/13 Shannan Barrow, KHAI [address] [place] [address] Registered Nurse 02/29/24 Lisbeth Johnson [address] [place] [address] Drive 3rd [place] [address] Gastroenterology 03/15/24 Tonya Poole SodderService Order Dispatcher 01/19/24 Sherin ([facility]) Registered Nurse 02/29/24 Marcos Verdin MD [place] [facility] [address] [place] [address] Cardiology 03/10/24 Omid Vincent Psychiatry 03/15/24 documented as of this encounter
[2024-11-29 14:18] LABS: Anion Gap 11 (12-20); Blood Urea Nitrogen 20 mg/dL (9-16); Calcium 9.2 mg/dL (8.4-10.2); Carbon Dioxide 21 mmol/L (22-29); Chloride 107 mmol/L (96-108); Estimated Glomerular Filt Rate 58; Potassium 4.1 mmol/L (3.3-5.1); Sodium 135 mmol/L (135-145)
[2024-11-29 14:36] LABS: Anion Gap 13 (12-20); Blood Urea Nitrogen 19 mg/dL (9-16); Calcium 9.1 mg/dL (8.4-10.2); Carbon Dioxide 20 mmol/L (22-29); Chloride 107 mmol/L (96-108); Estimated Glomerular Filt Rate 55; Magnesium 1.4 mg/dL (1.6-2.6); Potassium 4.0 mmol/L (3.3-5.1); Sodium 136 mmol/L (135-145)
== END 2024-11-29 10:41 | disposition home or self-care (01) ==
LOC: HO.HHCL 10:40
PROVIDERS: PCP Family Medicine; Visit Provider Family Medicine
DX: E83.42 Hypomagnesemia (principal); F10.20 Alcohol dependence, uncomplicated; R11.2 Nausea with vomiting, unspecified
CPT/HCPCS: 36415; 80048; 83735

== ENCOUNTER 2024-11-30 11:56 | Outpatient (REF) | payer MEDICAID, SELFPAY ==
--- OUTSIDE RECORDS SUMMARY | 2024-11-29 11:00 | XMS_ITS | Encounter Summary ---
Author Organization [employer] Address [address] [facility] 7t [place] [address] Care Team Providers Care Canvas Cutter Name Role Phone Nathalie Iniguez MD Primary Care Provider [phone]- [phone] Shannan Barrow RN Unavailable [phone] Lisbeth Johnson Unavailable Reason for Visit * Reason Comments follow up [facility] Encounter Details Date Type Department Care Team (Latest Contact Info) Description 11/29/2024 11:00 AM EDT Office Visit [facility] [address] [place], [place] [phone] Nathalie Iniguez MD [address] [place], [place] [phone] Hypomagnesemia (Primary Dx); Alcohol use disorder, severe, [...] in this encounter Progress Notes * Nathalie Iniguez MD - 11/29/2024 11:00 AM EDT Shamar [...] with Acamprosate via Alcohol Use Disorder [facility]. Other recent hospitalizations [facility] (09/08/24-09/11/24) Patient with complex medical history presented [...] diet discussed. Avoid hepatotoxic agents. -Followed by: Water Supervisor, Dr. Johnson: Note from 07/28/24 reviewed -Again strongly reviewed strict abstinence from etOH which hte pt has maintained so far. However, he unfortunately continues to smoke. Strongly counseled re that as well and will be referred to comprehensive [place]. -In terms of sarcopenia frailty, encouraged daily [...] add a night time snack such as portuguese yogurt, PB etc - Machine Preservative Filler referral - CLose follow up in 2 weeks -GI note 04/28/24 - Clarified need for CCC and Machine Preservative Filler referrals - Due for EGD/colo - needs repeat echo ordered to follow up on cardiomyopathy prev EF 20-25% - Will also confirm his OP power shovel operator for clearance - Pt reminded to [...] etOH.Recently established care with Dr Holloway at [facility] for substance use disorder recovery and support. - Clarified need for CCC and Machine Preservative Filler referrals - EGD/colo to be booked. He is aware he will need to review coumadin hold with his power shovel operator forthis procedure - US abd ordered - [...] pulmonary HTN diastolic dysfuntion -seen by Dr. Macros Verdin MD 03/10/24 History of prosthetic heart [...] daily drinking and rum - established with [facility] because insurance no longer accepted by [facility]. -Patient followed at [facility] with Dr. Cristine Deleon DO, seen 06/09/23 Tobacco dependence -Cigg/day: more than 1 pack- daily -Age started: 11 years old -Total years smokin -Pack year history: 25 Encouraged smoking cessation resources such as pharmacomtherapy, [facility] smoking cessation group, and [facility] pharmacy smoking cessation clinic -currently smoke [...] Acute hyponatremia 12/24/2022 EDGAR (acute kidney injury) [place] 06/07/2023 Alcohol use disorder, severe, dependence ([facility] 08/24/2011 Pt with long history of severe alcohol dependence with multiple hospitalizations, history of withdrawal, history of withdrawal seizures, liver disease and dangerous supratheraputic INRs. Risks discussed at each visit. 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 He was changed to lovenox but could not tolerate the injections. Back on coumadin with improved INRs. He is also on plavix. ER precautions discussed. Hx of fdc use of blood thinners Hypertension 08/24/2011 Multiple [...] Encouraged smoking cessation resources such as pharmacomtherapy, [facility] smoking cessation group, and [facility] pharmacy smoking cessation clinic -currently smoke [...] * Assessment & Plan Note - Nathalie Iniguez MD - 11/29/2024 11:00 AM EDT Associated [...] * Assessment & Plan Note - Nathalie Iniguez MD - 11/29/2024 11:00 AM EDT Associated [...] * Assessment & Plan Note - Nathalie Iniguez MD - 11/29/2024 11:00 AM EDT Associated [...] diet discussed. Avoid hepatotoxic agents. -Followed by: Water Supervisor, Dr. Johnson: Note from 07/28/24 reviewed -Again [...] add a night time snack such as portuguese yogurt, PB etc - Machine Preservative Filler referral - CLose follow up in 2 weeks -GI note 04/28/24 - Clarified need for CCC and Machine Preservative Filler referrals - Due for EGD/colo - needs repeat echo ordered to follow up on cardiomyopathy prev EF 20-25% - Will also confirm his OP power shovel operator for clearance - Pt reminded to [...] etOH.Recently established care with Dr Holloway at [facility] for substance use disorder recovery and support. - Clarified need for CCC and Machine Preservative Filler referrals - EGD/colo to be booked. He is aware he will need to review coumadin hold with his power shovel operator forthis procedure - US abd ordered - Repeat MELD labs in 3 months - Follow up 3 months * Assessment & Plan Note - Nathalie Iniguez MD - 11/29/2024 11:00 AM EDT Associated Problem(s): Anticoagulated on Coumadin For prosthetic valve. INR goal 2.5-3.5 -pt discharged from multiple clinics for non adherence and uncontrolled INRs. Now followed by PCP for INR -was on Lovenox which is not FDA approved but pt did not like it and wanted to go back on coumadin. * Assessment & Plan Note - Nathalie Iniguez MD - 11/29/2024 11:00 AM EDT Associated [...] * Assessment & Plan Note - Nathalie Iniguez MD - 11/29/2024 11:00 AM EDT Associated [...] daily drinking and rum - established with [facility] because insurance no longer accepted by [facility]. -Patient followed at [facility] with Dr. Cristine Deleon DO, seen 06/09/23 * Assessment & Plan Note - Nathalie Iniguez MD - 11/29/2024 11:00 AM EDT Associated Problem(s): Tobacco dependence -Cigg/day: more than 1 pack- daily -Age started: 11 years old -Total years smokin -Pack year history: 25 Encouraged smoking cessation resources such as pharmacomtherapy, [facility] smoking cessation group, and [facility] pharmacy smoking cessation clinic -currently smoke cigarettes or quit within the past 15 years. -LDCT: ordered 10/22/23, pt wants to wait till Spring to get it done. In precontemplative stages of quitting. Motivational interviewing done. * Addendum Note - Nathalie Iniguez MD - 11/29/2024 11:00 AM EDTAddended by: NATHALIE INIGUEZ on: 11/29/2024 03:02 PM Modules accepted: Orders documented in this encounter Plan of Treatment Upcoming Encounters Date Type Department Care Team (Late st Contact Info) Description 12/20/2024 2:00 PM EDT Office Visit [facility] [address] [place] [address] Nathalie Iniguez MD [address] [place] [address] 01/01/2025 9:00 AM EDT Office Visit [facility] OPTOMETRY [address] [place] [address] Seth, Zabrina, OD 230 [place] [address] 01/08/2025 10:00 AM EDT Office Visit [facility] ADULT DENTAL [address] [place] [address] Adalberto Montgomeryaris [address] [place] [address] 02/16/2025 1:15 PM EST Office Visit [facility] [address] [place] [address] Renny Holloway MD [address] [place] [address] documented as of this encounter Visit Diagnoses [...] documented as of this encounter Care Teams Canvas Cutter Relationship Specialty Start Date End Date Nathalie Iniguez MD [address] [place] [address] PCP - General Family Medicine 09/27/13 Shannan Barrow, KHAI [address] [place] [address] Registered Nurse 02/29/24 Lisbeth Johnson [address] [place] [address] 3rd [place] [address] Gastroenterology 03/15/24 Tonya Poole Freight CoordinatorCarpet Layer Helper 01/19/24 Sherin (A [facility]) Registered Nurse 02/29/24 Marcos Verdin MD [facility] [address] [place] [address] Cardiology 03/10/24 Omid Vincent Psychiatry 03/15/24 documented as of this encounter
--- NOTE | ~2024-11-30 | US_ITS ---
CLINICAL HISTORY: K70.9 - Alcoholic liver disease, unspecified US abdomen complete with duplex and color Doppler Comparison: CT/SR - CT ABDOMEN PELVIS WO IV CON - 08/04/24 15:07 EDT US/SR - US ABDOMEN - 04/14/24 13:02 EST Findings: Pancreas aorta and IVC obscured by bowel gas. Liver normal size and diffusely echogenic. Right lobe 14.0 cm length. Focal fatty sparing near the gallbladder fossa. Common duct 4.0 mm diameter. Physiologic distention of the gallbladder. No gallstones or sludge. No gallbladder wall thickening. No pericholecystic fluid. No sonographic Doyle sign. Main portal vein antegrade. Right kidney normal size, 10.2 cm in length. Normal cortical width and echotexture. Stable renal cyst lower pole measuring 6 x 6 x 5 mm.No nephrolithiasis. No hydronephrosis. Left kidney normal, 11.2 cm in length. Normal cortical width and echotexture. No solid or cystic renal masses. Spleen measures 10.1 cm. No splenic masses. No ascites. No lymphadenopathy. Impression: 1. Hepatic steatosis with focal fatty sparing. MRI would be confirmatory. 2. Bowel gas obscures midline structures. 3. Stable renal cortical cyst. This document has been electronically signed by: Rich Armas MD on 12/01/2024 06:46:41
--- OUTSIDE RECORDS SUMMARY | 2024-11-30 13:00 | XMS_ITS | Encounter Summary ---
Author Organization [employer] Address 75 [facility] 7t [place] [address] Care Team Providers Care Affirmative Action Specialist Name Role Phone Nathalie Hsu MD Primary Care Provider [phone]- [phone] Shannan Barrow RN Unavailable [phone] Lisbeth Johnson Unavailable Reason for Visit * Reason Onset Date Comments Hospital Follow-up 03/07/2024 Medication Question 03/07/2024 Encounter Details Date Type Department Care Team (Late st Contact Info) Description 03/07/2024 Telephone [facility] MEDICINE 230 [place], [place] [phone] Nathalie Hsu MD 230 [place] [address] Hospital Follow-up; Medication Question Social History Tobacco [...] stating wrong number and he doesn't speak romanian (was not the pt). Telephone call placed [...] 03/07/2024 2:00 PM EST Tc from [facility] with [facility] Director Vaccine requesting a HDF appt. Pt is concerned about medication melatonin 5 MG tablet he still has trouble sleeping and doesn't want to stop taking. Hospital: [facility] Date of admission: 02/11 Discharge date: 03/01 Diagnosed: Liver Issues Contact pt to schedule at [phone] *Send message to [place] Clinical Care Coordinators documented in this encounter Plan of Treatment Upcoming Encounters Date Type Department Care Team (Late st Contact Info) Description 12/20/2024 2:00 PM EDT Office Visit [facility] MEDICINE [address] [place] [address] Nathalie Hsu MD 230 [place] [address] 01/01/2025 9:00 AM EDT Office Visit [facility] OPTOMETRY [address] [place] [address] Zabrina Ann, OD 230 [place] [address] 01/08/2025 10:00 AM EDT Office Visit [facility] ADULT DENTAL 230 [place] [address] Adalberto Montgomeryaris 230 [place] [address] 02/16/2025 1:15 PM EST Office Visit [facility] MEDICINE 230 [place] [address] Renny Holloway MD 230 [place] [address] documented as of this encounter Visit Diagnoses Not on filedocumented in this encounter Additional Health Concerns Assessment Noted Time PHQ-9 Depression Total Score: 0 06/09/19 24 9:13 AM EST documented as of this encounter Care Teams Affirmative Action Specialist Relationship Specialty Start Date End Date Nathalie Hsu MD 230 [place] [address] PCP - General Family Medicine 09/27/13 Shannan Barrow, RN 230 [place] [address] Registered Nurse 02/29/24 Lisbeth Johnson [address] [place] [address] 3rd [place] [address] Gastroenterology 03/15/24 Tonya Poole Securities UnderwriterAssociate Professor Of Philosophy 01/19/24 Sherin (A S) Registered Nurse 02/29/24 Marcos Verdin MD [place] [facility] [address] [place] [address] Cardiology 03/10/24 Omid Vincent Psychiatry 03/15/24 documented as of this encounter
--- OUTSIDE RECORDS SUMMARY | 2024-11-30 13:00 | XMS_ITS | Encounter Summary ---
Author Organization [employer] Address [address] [facility] [address] 7t [place] [address] Care Team Providers Care Engineering Manager Name Role Phone [place], Nathalie ABDI Primary Care Provider [phone]- [phone] Shannan Barrow RN Unavailable [phone] Lisbeth Johnson Unavailable Reason for Visit * Reason Comments Med Refill Encounter Details Date Type Department Care Team (Late st Contact Info) Description 07/04/2024 Refill [facility] ADULT DENTAL 230 [place] [address] Panchito Lamas DDS 230 [place] [address] Severe dental caries; Dental root caries; Advanced [...] Description 12/20/2024 2:00 PM EDT Office Visit [facility] MEDICINE 230 [place] [address] Nathalie Hsu MD 230 [place] [address] 01/01/2025 9:00 AM EDT Office Visit [facility] OPTOMETRY [address] [place] [address] Zabrina Ann OD 230 [place] [address] 01/08/2025 10:00 AM EDT Office Visit [facility] ADULT DENTAL 230 [place] [address] Chiquita [place] [address] [place] [address] 02/16/2025 1:15 PM EST Office Visit [facility] MEDICINE [address] [place] [address] Renny Holloway MD [address] [place] [address] documented as of this encounter Visit Diagnoses Diagnosis Severe dental caries Dental root caries Advanced periodontitis Excessive attrition of teeth, limited to enamel Missing teeth, acquired Dental calculus Accretions on teeth documented in this encounter Additional Health Concerns Assessment Noted Time PHQ-9 Depression Total Score: 0 06/09/19 9:13 AM EST documented as of this encounter Care Teams Engineering Manager Relationship Specialty Start Date End Date Nathalie Hsu MD [address] [place] [address] PCP - General Family Medicine 09/27/13 Shannan Barrow, KHAI [address] [place] [address] Registered Nurse 02/29/24 Lisbeth Johnson [address] [place] [address] 3rd [place] [address] Gastroenterology 03/15/24 Tonya Poole Showroom ConsultantForepart Reducer 01/19/24 Sherin ([facility]) Registered Nurse 02/29/24 Marcos Verdin MD [place] [facility] [address] [place] [address] Cardiology 03/10/24 Omid Vincent Psychiatry 03/15/24 documented as of this encounter
--- OUTSIDE RECORDS SUMMARY | 2024-11-30 13:00 | XMS_ITS | Encounter Summary ---
Author Organization [employer] Address [address] [facility] [address] 7t [place] [address] Care Team Providers Care Buyer Name Role Phone Nathalie Hsu MD Primary Care Provider [phone]- [phone] Shannan Barrow RN Unavailable [phone] Lisbeth Johnson Unavailable Reason for Visit * Reason Onset Date Comments PT-1 05/26/2024 Encounter Details Date Type Department Care Team (Late st Contact Info) Description 05/26/2024 Telephone [facility] MED[facility]INE 230 [place] [address] Nathalie Hsu MD 230 [place], [place] [phone] PT-1 Social History Tobacco Use Types Packs/Day [...] Y/N: Yes Provider name or facility name: [place] [address] Escort needed: Y/N: No Do you have a wheelchair: Y/N: No If yes- Manual or electric: N/A Visits: (amount of visits) ( x monthly, weekly, daily) 2 times per month. documented in this encounter Plan of Treatment Upcoming Encounters Date Type Department Care Team (Late st Contact Info) Description 12/20/2024 2:00 PM EDT Office Visit [facility] MEDICINE [address] [place] [address] Nathalie Hsu MD 230 [place] [address] 01/01/2025 9:00 AM EDT Office Visit [facility] OPTOMETRY [address] [place] [address] Zabrina Ann, OD 230 [place] [address] 01/08/2025 10:00 AM EDT Office Visit [facility] ADULT DENTAL 230 [place] [address] Ulises, Chiquita 230 [place] [address] 02/16/2025 1:15 PM EST Office Visit [facility] MEDICINE 230 [place] [address] Renny Holloway MD 230 [place] [address] documented as of this encounter Visit Diagnoses Not on filedocumented in this encounter Additional Health Concerns Assessment Noted Time PHQ-9 Depression Total Score: 0 06/09/19 9:13 AM EST documented as of this encounter Care Teams Buyer Relationship Specialty Start Date End Date Nathalie Hsu MD 230 [place] [address] PCP - General Family Medicine 09/27/13 Shannan Barrow, KHAI [address] [place] [address] Registered Nurse 02/29/[address] 3rd [place] [address] Gastroenterology 03/15/24 Tonya Poole MoonerNurse Wound Care 01/19/24 Sherin ([facility]) Registered Nurse 02/29/24 Marcos Verdin MD [place] [facility] [address] [place] [address] Cardiology 03/10/24 Omid Vincent Psychiatry 03/15/24 documented as of this encounter
--- OUTSIDE RECORDS SUMMARY | 2024-11-30 13:00 | XMS_ITS | Encounter Summary ---
Author Organization [employer] Address [address] [facility] [address] 7t [place] [address] Care Team Providers Care Tire Manager Name Role Phone [place], Nathalie ABDI Primary Care Provider [phone]- [phone] Shannan Barrow RN Unavailable [phone] Lisbeth Johnson Unavailable Reason for Visit * Reason Onset Date Comments Dr. Lamas medication 06/20/2024 Encounter Details Date Type Department Care Team (Late st Contact Info) Description 06/20/2024 Telephone [facility] ADULT D[facility]AL 230 [place], [place] [phone] Panchito Lamas DDS [address] [place], [place] [phone] Dr. Lamas medication Social History Tobacco Use [...] 2:00 PM EDT Office Visit [facility] MED[facility]INE 230 [place] [address] Nathalie Hsu MD 230 [place] [address] 01/01/2025 9:00 AM EDT Office Visit [facility] OPT[facility]RY 267 [place] [address] Seth, Zabrina, OD 230 [place] [address] 01/08/2025 10:00 AM EDT Office Visit [facility] ADULT DENTAL 230 [place] [address] Ulises, Chiquita 230 [place] [address] 02/16/2025 1:15 PM EST Office Visit [facility] MED[facility] 230 [place] [address] Renny Holloway MD 230 [place] [address] documented as of this encounter Visit Diagnoses Not on filedocumented in this encounter Additional Health Concerns Assessment Noted Time PHQ-9 Depression Total Score: 0 06/09/19 24 9:13 AM EST documented as of this encounter Care Teams Tire Manager Relationship Specialty Start Date End Date Nathalie Hsu MD [address] [place] [address] PCP - General Family Medicine 09/27/13 Shannan Barrow, KHAI [address] [place] [address] Registered Nurse 02/29/24 Lisbeth Johnson [address] [place] [address] Drive 3rd [place] [address] Gastroenterology 03/15/24 Tonya Poole Military Personnel SpecialistBaker Bench 01/19/24 Sherin ([facility]) Registered Nurse 02/29/24 Marcos Verdin MD [place] [facility] [address] [place] [address] Cardiology 03/10/24 Omid Vincent Psychiatry 03/15/24 documented as of this encounter
--- OUTSIDE RECORDS SUMMARY | 2024-11-30 13:00 | XMS_ITS | Encounter Summary ---
Author Organization [employer] Address 75 [facility] 7t [place] [address] Care Team Providers Care Dental Patient Coordinator Name Role Phone Nathalie Hsu MD Primary Care Provider [phone]- [phone] hSannan Barrow RN Unavailable [phone] Lisbeth Johnson Unavailable Encounter Details Date [...] 2:00 PM EDT Office Visit [facility] MEDICINE [address] [place] [address] Nathalie Hsu MD [address] [place] [address] 01/01/2025 9:00 AM EDT Office Visit [facility] OPTOMETRY [address] [place] [address] Seth, Zabrina, OD 230 [place] [address] 01/08/2025 10:00 AM EDT Office Visit [facility] ADULT DENTAL 230 [place] [address] Ulises, Chiquita 230 [place] [address] 02/16/2025 1:15 PM EST Office Visit [facility] MEDICINE [address] [place] [address] Renny Holloway MD [address] [place] [address] documented as of this encounter Visit Diagnoses Not on filedocumented in this encounter Additional Health Concerns Assessment Noted Time PHQ-9 Depression Total Score: 0 09/21/19 25 3:24 PM EDT documented as of this encounter Care Teams Dental Patient Coordinator Relationship Specialty Start Date End Date Nathalie Hsu MD 230 [place] [address] PCP - General Family Medicine 09/27/13 Shannan Barrow, RN 230 [place] [address] Registered Nurse 02/29/24 Lisbeth Johnson [address] [place] [address] 3rd [place] [address] Gastroenterology 03/15/24 Tonya Poole Millwright HelperUx Developer Designer 01/19/24 Sherin (A S) Registered Nurse 02/29/24 Marcos Verdin MD [place] [facility] [address] [place] [address] Cardiology 03/10/24 Omid Vincent Psychiatry 03/15/24 documented as of this encounter
--- OUTSIDE RECORDS SUMMARY | 2024-11-30 13:00 | XMS_ITS | Encounter Summary ---
Author Organization [employer] Address [address] [facility] [address] 7t [place] [address] Care Team Providers Care Vegetable Tier Name Role Phone Nathalie Hsu MD Primary Care Provider [phone]- [phone] Shannan Barrow RN Unavailable [phone] Lisbeth Johnson Unavailable Reason for Visit * Reason Onset Date Comments CHART PREP 11/28/2024 Encounter Details Date Type Department Care Team (Late st Contact Info) Description 11/28/[address] [facility] MEDICINE 230 [place] [address] Nathalie Hsu MD 230 [place], [place] [phone] CHART PREP Social History Tobacco Use Types [...] this information: Ultrasound Abdomen 11/30/24 at 12:30 (Data Warehouse Analyst did call back Patient to inform him) Gastroenterology appointment is on 01/22/25 at 2 PM. (Appointment added to his care team under notes) documented in this encounter Plan of Treatment Upcoming Encounters Date Type Department Care Team (Late st Contact Info) Description 12/20/2024 2:00 PM EDT Office Visit [facility] MEDICINE [address] [place] [address] [phone] Nathalie Hsu MD 230 [place] [address] 01/01/2025 9:00 AM EDT Office Visit [facility] OPTOMETRY [address] [place] [address] SethZabrina funes, OD 230 [place] [address] 01/08/2025 10:00 AM EDT Office Visit [facility] ADULT DENTAL 230 [place] [address] Ulises, Chiquita 230 [place] [address] 02/16/2025 1:15 PM EST Office Visit [facility] MEDICINE 230 [place] [address] Renny Holloway MD [address] [place] [address] documented as of this encounter Visit Diagnoses Not on filedocumented in this encounter Additional Health Concerns Assessment Noted Time PHQ-9 Depression Total Score: 0 09/21/19 25 3:24 PM EDT documented as of this encounter Care Teams Vegetable Tier Relationship Specialty Start Date End Date Nathalie Hsu MD [address] [place] [address] PCP - General Family Medicine 09/27/13 Shannan Barrow, KHAI [address] [place] [address] Registered Nurse 02/29/24 Lisbeth Johnson [address] 3rd [place] [address] Gastroenterology 03/15/24 Tonya Poole Wood Carver HandHand Paster 01/19/24 Sherin ([facility]) Registered Nurse 02/29/24 Marcos Verdin MD [place] [facility] [address] [place] [address] Cardiology 03/10/24 Omid Vincent Psychiatry 03/15/24 documented as of this encounter
--- OUTSIDE RECORDS SUMMARY | 2024-11-30 13:00 | XMS_ITS | Encounter Summary ---
Author Organization [employer] Address [address] [facility] [address] 7t [place] [address] Care Team Providers Care Offset Plate Preparation Supervisor Name Role Phone Nathalie Hsu MD Primary Care Provider [phone]- [phone] Shannan Barrow RN Unavailable Lisbeth Johnson Unavailable Reason for Visit * Reason Onset Date Comments CRITICAL LAB 11/28/2024 Encounter Details Date Type Department Care Team (Late st Contact Info) Description 11/28/2024 Telephone [facility] 230 [place] [address] Nathalie Hsu MD 230 [place] [address] CRITICAL LAB Social History Tobacco Use Types [...] him an over the counter supplement from [employer] that haszinc and magnesium in it but [...] Description 12/20/2024 2:00 PM EDT Office Visit [facility] MEDICINE 230 [place] [address] Nathalie Hsu MD 230 [place] [address] 01/01/2025 9:00 AM EDT Office Visit [facility] OPTOMETRY [address] [place] [address] Zabrina Ann, OD 230 [place] [address] 01/08/2025 10:00 AM EDT Office Visit [facility] ADULT DENTAL 230 [place], [place] [phone] Adalberto Montgomeryaris 230 [place], [place] [phone] 02/16/2025 1:15 PM EST Office Visit [facility] MEDICINE 230 [place] [address] Renny Holloway MD 230 [place], [place] [phone] documented as of this encounter Procedures Procedure [...] documented as of this encounter Care Teams Offset Plate Preparation Supervisor Relationship Specialty Start Date End Date Nathalie Hsu [place] [address] PCP - General Family Medicine 09/27/13 Shannan Barrow, RN [address] [place] [address] Registered Nurse 02/29/[address] 3rd [place] [address] Gastroenterology 03/15/24 Tonya Poole Anode RebuilderBiotechnician 01/19/24 Sherin (JASMEETA S) Registered Nurse 02/29/24 Marcos Verdin MD [place] [facility] [address] [place] [address] Cardiology 03/10/24 Omid Vincent Psychiatry 03/15/24 documented as of this encounter
--- OUTSIDE RECORDS SUMMARY | 2024-11-30 13:00 | XMS_ITS | Encounter Summary ---
Author Organization [employer] Address 75 [facility] 7t [place] [address] Care Team Providers Care Clothespin Drier Operator Name Role Phone Nathalie Hsu MD Primary Care Provider [phone]- [phone] Shannan Barrow RN Unavailable [phone] Lisbeth Johnson Unavailable Reason for Visit * Reason Comments Med Refill Encounter Details Date Type Department Care Team (Late st Contact Info) Description 03/30/2024 Refill [facility] MEDICINE [address] [place] [address] Nathalie Hsu MD 230 [place] [address] History of alcohol abuse; Hypomagnesemia; Mild intermittent [...] Description 12/20/2024 2:00 PM EDT Office Visit [facility] MEDICINE 230 [place] [address] Nathalie Hsu MD 230 [place] [address] 01/01/2025 9:00 AM EDT Office Visit [facility] OPTOMETRY [address] [place] [address] Zabrina Ann OD 230 [place] [address] 01/08/2025 10:00 AM EDT Office Visit [facility] ADULT DENTAL 230 [place] [address] Chiquita Montgomery 230 [place] [address] 02/16/2025 1:15 PM EST Office Visit [facility] MEDICINE [address] [place] [address] Renny Holloway MD [address] [place] [address] documented as of this encounter Visit Diagnoses Diagnosis History of alcohol abuse Nondependent alcohol abuse, in remission Hypomagnesemia Disorders of magnesium metabolism Mild intermittent asthma, unspecified whether complicated documented in this encounter Additional Health Concerns Assessment Noted Time PHQ-9 Depression Total Score: 0 06/09/19 24 9:13 AM EST documented as of this encounter Care Teams Clothespin Drier Operator Relationship Specialty Start Date End Date Nathalie Hsu MD [address] [place] [address] PCP - General Family Medicine 09/27/13 Shannan Barrow, KHAI [address] [place] [address] Registered Nurse 02/29/24 Lisbeth Johnson [address] [place] [address] 3rd [place] [address] Gastroenterology 03/15/24 Tonya Poole Company MarkerDouble Bottom Driver 01/19/24 Sherin ([facility]) Registered Nurse 02/29/24 Marcos Verdin MD [place] [facility] [address] [place] [address] Cardiology 03/10/24 Omid Vincent Psychiatry 03/15/24 documented as of this encounter
--- OUTSIDE RECORDS SUMMARY | 2024-11-30 13:01 | XMS_ITS | Encounter Summary ---
Author Organization [employer] Address 75 [facility] 7t [place] [address] Care Team Providers Care Luggage Attendant Name Role Phone Nathalie Hsu MD Primary Care Provider [phone]- [phone] Shannan Barrow RN Unavailable [phone] Lisbeth Johnson Unavailable Encounter Details Date Type Department Care Team (Late st Contact Info) Description 08/11/2023 Telephone [facility] MEDICINE 230 [place], [place] [phone] Nathalie Hsu MD 230 [place], [place] [phone] Social History Tobacco Use Types Packs/Day Years [...] Description 12/20/2024 2:00 PM EDT Office Visit [facility] MEDICINE [address] [place] [address] Nathalie Hsu MD 230 [place] [address] 01/01/2025 9:00 AM EDT Office Visit [facility] OPTOMETRY [address] [place] [address] SethZabrina funes, OD 230 [place] [address] 01/08/2025 10:00 AM EDT Office Visit [facility] ADULT DENTAL 230 [place] [address] Ulises Chiquita 230 [place] [address] 02/16/2025 1:15 PM EST Office Visit [facility] MEDICINE [address] [place] [address] Renny Holloway MD 230 [place] [address] documented as of this encounter Visit Diagnoses Not on filedocumented in this encounter Additional Health Concerns Assessment Noted Time PHQ-9 Depression Total Score: 0 06/09/19 24 9:13 AM EST documented as of this encounter Care Teams Luggage Attendant Relationship Specialty Start Date End Date Nathalie Hsu MD 230 [place] [address] PCP - General Family Medicine 09/27/13 Shannan Barrow, RN 230 [place] [address] Registered Nurse 02/29/24 Lisbeth Johnson [address] [place] [address] 3rd [place] [address] Gastroenterology 03/15/24 Tonya Poole Naval Gunfire SpotterCard Processing Clerk 01/19/24 Sherin ([facility]) Registered Nurse 02/29/24 MD [place] [place] [facility] [address] [place] [address] Cardiology 03/10/24 Omid Vincent Psychiatry 03/15/24 documented as of this encounter
--- OUTSIDE RECORDS SUMMARY | 2024-11-30 13:01 | XMS_ITS | Encounter Summary ---
Author Organization [employer] Address [address] [facility] [address] 7t [place] [address] Care Team Providers Care Refractory Mixer Name Role Phone Nathalie Hsu MD Primary Care Provider [phone]- [phone] Shannan Barrow RN Unavailable [phone] Lisbeth Johnson Unavailable Encounter Details Date Type Department Care Team (Late st Contact Info) Description 05/12/2023 Orders Only [facility] MEDICINE 230 [place], [place] [phone] Nathalie Hsu MD 230 [place], [place] [phone] Social History Tobacco Use Types Packs/Day Years [...] Office Visit [facility] MEDICINE [address] [place] [address] Nathalie Hsu MD [address] [place] [address] 01/01/2025 9:00 AM EDT Office Visit [facility] OPTOMETRY 267 [place] [address] Seth, Zabrina, OD 230 [place] [address] 01/08/2025 10:00 AM EDT Office Visit [facility] ADULT DENTAL 230 [place] [address] Ulises, Chiquita 230 [place] [address] 02/16/2025 1:15 PM EST Office Visit [facility] MEDICINE [address] [place] [address] Renny Holloway MD [address] [place] [address] documented as of this encounter Visit Diagnoses Not on filedocumented in this encounter Additional Health Concerns Assessment Noted Time PHQ-9 Depression Total Score: 6 05/08/19 23 10:33 AM EST documented as of this encounter Care Teams Refractory Mixer Relationship Specialty Start Date End Date Nathalie Hsu MD 230 [place] [address] PCP - General Family Medicine 09/27/13 Shannan Barrow, RN 230 [place] [address] Registered Nurse 02/29/24 Lisbeth Johnson [address] [place] [address] 3rd [place] [address] Gastroenterology 03/15/24 Tonya Poole Pole ClimberSeasoning Mixer 01/19/24 Sherin (A [facility]) Registered Nurse 02/29/24 Marcos Verdin MD [place] [facility] [address] [place] [address] Cardiology 03/10/24 Omid Vincent Psychiatry 03/15/24 documented as of this encounter
--- OUTSIDE RECORDS SUMMARY | 2024-11-30 13:01 | XMS_ITS | Encounter Summary ---
Author Organization [employer] Address 75 [facility] 7t [place] [address] Care Team Providers Care Golf Ball Marker Name Role Phone Nathalie Hsu MD Primary Care Provider [phone]- [phone] Shannan Barrow RN Unavailable [phone] Lisbeth Johnson Unavailable Reason for Visit * Reason Onset Date Comments Med Refill 07/01/2023 Encounter Details Date Type Department Care Team (Late st Contact Info) Description 07/01/2023 Telephone [facility] MEDICINE 230 [place], [place] [phone] Nathalie Hsu MD 230 [place], [place] [phone] Med Refill Social History Tobacco Use Types [...] the past 12 months, has t he [employer], [employer], oil or water [employer] threatened to shut off services in your [...] 9:11 AM EDT Medication was sent to [facility] on 03/03/23 90 day supply with 1 refill. * Telephone Encounter - Amie Ramsey - 07/01/2023 9:06 AM EDT TC from pt requesting medication refill. Medications needing refill : pantoprazole (ProtoNix) 40 MG EC tablet To be sent to: [facility] - [place], [place] - [address] [place] [address] 230 [facility] [phone] documented in this encounter Plan of Treatment Upcoming Encounters Date Type Department Care Team ([facility] st Contact Info) Description 12/20/2024 2:00 PM EDT Office Visit [facility] MEDICINE 230 [place], [place] [phone] Nathalie Hsu MD [address] [place] [address] [place] [address] 01/01/2025 9:00 AM EDT Office Visit [facility] OPTOMETRY [address] [place] [address] Zabrina Ann, OD 230 [place] [address] 01/08/2025 10:00 AM EDT Office Visit [facility] ADULT DENTAL 230 [place] [address] Ulises, Chiquita 230 [place] [address] 02/16/2025 1:15 PM EST Office Visit [facility] MEDICINE 230 [place] [address] Renny Holloway MD 230 [place] [address] documented as of this encounter Visit Diagnoses Not on filedocumented in this encounter Additional Health Concerns Assessment Noted Time PHQ-9 Depression Total Score: 0 06/09/19 24 9:13 AM EST documented as of this encounter Care Teams Golf Ball Marker Relationship Specialty Start Date End Date Nathalie Hsu MD [address] [place] [address] PCP - General Family Medicine 09/27/13 Shannan Barrow, RN [address] [place] [address] Registered Nurse 02/29/[address] 3rd [place] [address] Gastroenterology 03/15/24 Tonya Poole Metal Extrusion SupervisorHome Economics Teacher 01/19/24 Sherin ([facility]) Registered Nurse 02/29/24 Marcos Verdin MD [place] [facility] [address] [place] [address] Cardiology 03/10/24 Omid Vincent Psychiatry 03/15/24 documented as of this encounter
--- OUTSIDE RECORDS SUMMARY | 2024-11-30 13:01 | XMS_ITS | Encounter Summary ---
Author Organization [employer] Address 75 [facility] 7t [place] [address] Care Team Providers Care Animal Husbandry Manager Name Role Phone Nathalie Hsu MD Primary Care Provider [phone]- [phone] Shannan Barrow RN Unavailable [phone] Lisbeth Johnson Unavailable Encounter Details Date Type Department Care Team (Late st Contact Info) Description 11/29/2024 Orders Only [facility] MEDICINE 230 [place] [address] Nathalie Hsu MD 230 [place], [place] [phone] Social History Tobacco Use Types Packs/Day Years [...] 12/20/2024 2:00 PM EDT Office Visit [facility] MEDICINE [address] [place] [address] Nathalie Hsu MD 230 [place] [address] 01/01/2025 9:00 AM EDT Office Visit [facility] OPTOMETRY [address] [place] [address] Seth, Zabrina, OD 230 [place] [address] 01/08/2025 10:00 AM EDT Office Visit [facility] ADULT DENTAL 230 [place] [address] Adalberto Montgomeryaris 230 [place] [address] 02/16/2025 1:15 PM EST Office Visit [facility] MEDICINE [address] [place] [address] Renny Holloway MD 230 [place] [address] documented as of this encounter Procedures Procedure Name Priority Date/Time Associated Diagnosis Comments BASIC METABOLIC PANEL Routine 11/29/2024 11:20 AM EDT documented in this encounter Results * (ABNORMAL) Basic Metabolic Panel (11/29/2024 11:20 AM EDT) Sodium 136 135 - 145 mmol/L [facility] Potassium 4.0 3.3 - 5.1 mmol/L [facility] Chloride 107 96 - 108 mmol/L [facility] Carbon Dioxide 20(L) 22 - 29 mmol/L [facility] Anion Gap 13 12 - 20 [facility] Urea Nitrogen (BUN) 19(H) 9 - 16 mg/dL [facility] Creatinine, Serum 1.31 0.5 - 1.4 mg/dL [facility] Estimated Glomerular Filt Rate 55 [facility] Comment:Chronic Kidney Disea se: Estimated GFR < 60 mL/min/[id number] Kidney Disease: Estimated GFR < 15 mL/min/1.73m2 Glucose 127(H) 60 - 115 mg/dL [facility] Calcium 9.1 8.4 - 10.2 mg/dL [facility] 11/29/2024 11:2 0 AM EDT 11/29/2024 1:04 PM EDT us Nathalie Hsu MD LAB BLOOD ORDERABLES Final Result [facility] [address] [place] [address] [phone] documented in this encounter Visit Diagnoses Not on filedocumented in this encounter Additional Health Concerns Assessment Noted Time PHQ-9 Depression Total Score: 0 09/21/19 25 3:24 PM EDT documented as of this encounter Care Teams Animal Husbandry Manager Relationship Specialty Start Date End Date Nathalie Hsu MD 230 [place] [address] PCP - General Family Medicine 09/27/13 Shannan Barrow, RN 230 [place] [address] Registered Nurse 02/29/24 Lisbeth Johnson [address] [place] [address] Drive 3rd [place] [address] Gastroenterology 03/15/24 Tonya Poole Software Implementation SpecialistHand Fur Cleaner 01/19/24 Sherin (A [facility]) Registered Nurse 02/29/24 Marcos Verdin MD [place] [facility] [address] [place] [address] Cardiology 03/10/24 Omid Vincent Psychiatry 03/15/24 documented as of this encounter
--- OUTSIDE RECORDS SUMMARY | 2024-11-30 13:01 | XMS_ITS | Encounter Summary ---
Author Organization [employer] Address [address] [facility] [address] 7t [place] [address] Care Team Providers Care Electronic Warfare Operator Name Role Phone Nathalie Hsu MD Primary Care Provider [phone]- [phone] Shannan Barrow RN Unavailable [phone] Lisbeth Johnson Unavailable Reason for Visit * Reason Onset Date Comments Coagulation Disorder 05/12/2023 Encounter Details Date Type Department Care Team (Late st Contact Info) Description 05/12/2023 Telephone [facility] MEDICINE 230 [place], [place] [phone] Nathalie Hsu MD 230 [place], [place] [phone] Coagulation Disorder Social History Tobacco Use Types [...] to report INR. Please contact robert at [phone] documented in this encounter Plan of Treatment Upcoming Encounters Date Type Department Care Team (Late st Contact Info) Description 12/20/2024 2:00 PM EDT Office Visit [facility] MEDICINE [address] [place] [address] Nathalie Hsu MD 230 [place] [address] 01/01/2025 9:00 AM EDT Office Visit [facility] OPTOMETRY [address] [place] [address] Zabrina Ann, OD 230 [place] [address] 01/08/2025 10:00 AM EDT Office Visit [facility] ADULT DENTAL 230 [place] [address] Ulises, Chiquita [address] [place] [address] 02/16/2025 1:15 PM EST Office Visit [facility] MEDICINE [address] [place] [address] Renny Holloway MD 230 [place] [address] documented as of this encounter Visit Diagnoses Not on filedocumented in this encounter Additional Health Concerns Assessment Noted Time PHQ-9 Depression Total Score: 6 05/08/19 23 10:33 AM EST documented as of this encounter Care Teams Electronic Warfare Operator Relationship Specialty Start Date End Date Nathalie Hsu MD 230 [place], [place] [phone] PCP - General Family Medicine 09/27/13 Shannan Barrow, KHAI [address] [place] [address] [phone] Registered Nurse 02/29/24 Lisbeth Johnson [address] [place] [address] Drive 3rd [place] [address] Gastroenterology 03/15/24 Tonya Poole Paperboard Machine OperatorDistrict Sales Manager 01/19/24 Sherin ([facility]) Registered Nurse 02/29/24 Marcos Verdin MD [place] [facility] [address] [place] [address] Cardiology 03/10/24 Omid Vincent Psychiatry 03/15/24 documented as of this encounter
--- OUTSIDE RECORDS SUMMARY | 2024-11-30 13:01 | XMS_ITS | Encounter Summary ---
Author Organization [employer] [facility] Address [address] [place] [address] 7t [place] [address] Care Team Providers Care Pilling Machine Operator Name Role Phone Nathalie Hsu MD Primary Care Provider Shannan Barrow RN Unavailable [phone] Lisbeth Johnson Unavailable Encounter Details Date Type Department Care Team (Late st Contact Info) Description 04/01/2022 Orders Only [facility] MEDICINE [address] [place] [address] Anabell Weston, KHAI Social History Tobacco Use [...] [facility] MEDICINE 230 [place] [address] Nathalie Hsu MD 230 [place] [address] 01/01/2025 9:00 AM EDT Office Visit [facility] OPTOMETRY [address] [place] [address] Zabrina Ann, OD 230 [place] [address] 01/08/2025 10:00 AM EDT Office Visit [facility] ADULT DENTAL 230 [place] [address] Chiquita Montgomery 230 [place] [address] 02/16/2025 1:15 PM EST Office Visit [facility] MEDICINE [address] [place] [address] Renny Holloway MD 230 [place] [address] documented as of this encounter Visit Diagnoses Not on filedocumented in this encounter Care Teams Pilling Machine Operator Relationship Specialty Start Date End Date Nathalie Hsu MD [address] [place] [address] PCP - General Family Medicine 09/27/13 Shannan Barrow, KHAI [address] [place] [address] Registered Nurse 02/29/24 Lisbeth Johnson [address] [place] [address] 3rd [place] [address] Gastroenterology 03/15/24 Tonya Poole Labor Economics TeacherManager Philosophy 01/19/24 Sherin ([facility]) Registered Nurse 02/29/24 Marcos Verdin MD [place] [facility] [address] [place] [address] Cardiology 03/10/24 Omid Vincent Psychiatry 03/15/24 documented as of this encounter
--- OUTSIDE RECORDS SUMMARY | 2024-11-30 13:01 | XMS_ITS | Encounter Summary ---
Author Organization [employer] Address 75 [facility] 7t [place] [address] Care Team Providers Care Communications Agent Name Role Phone Nathalie Hsu MD Primary Care Provider [phone] Shannan Barrow RN Unavailable [phone] Lisbeth Johnson Unavailable Reason for Visit * Reason Onset Date Comments Results 01/12/2023 INR Encounter Details Date Type Department Care Team (Late st Contact Info) Description 01/12/2023 Telephone [facility] MEDICINE 230 [place], [place] [phone] Nathalie Hsu MD 230 [place], [place] [phone] Results (INR) Social History Tobacco Use Types [...] 12:36 PM EDT Tc from Gavin at [employer] reporting INR results. Please call [phone] documented in this encounter Plan of Treatment Upcoming Encounters Date Type Department Care Team (Late st Contact Info) Description 12/20/2024 2:00 PM EDT Office Visit [facility] MEDICINE [address] [place] [address] Nathalie Hsu MD 230 [place] [address] 01/01/2025 9:00 AM EDT Office Visit [facility] OPTOMETRY [address] [place] [address] Seth, Zabrina, OD 230 [place] [address] 01/08/2025 10:00 AM EDT Office Visit [facility] ADULT DENTAL 230 [place] [address] Ulises Chiquita 230 [place] [address] 02/16/2025 1:15 PM EST Office Visit [facility] MEDICINE [address] [place] [address] Renny Holloway MD 230 [place] [address] documented as of this encounter Visit Diagnoses Not on filedocumented in this encounter Additional Health Concerns Assessment Noted Time PHQ-9 Depression Total Score: 6 05/08/19 23 10:33 AM EST documented as of this encounter Care Teams Communications Agent Relationship Specialty Start Date End Date Nathalie Hsu MD 230 [place], [place] [phone] PCP - General Family Medicine 09/27/13 Shannan Barrow, RN 230 [place], [place] [phone] Registered Nurse 02/29/24 Lisbeth Johnson [address] [place] [address] 3rd [place] [address] Gastroenterology 03/15/24 Tonya Poole Courtesy Bus DriverScarfer 01/19/24 Sherin ([facility]) Registered Nurse 02/29/24 Marcos Verdin MD [place] [facility] [address] [place] [address] Cardiology 03/10/24 Omid Vincent Psychiatry 03/15/24 documented as of this encounter
--- OUTSIDE RECORDS SUMMARY | 2024-11-30 13:01 | XMS_ITS | Encounter Summary ---
Author Organization [employer] Address 75 [facility] 7t [place] [address] Care Team Providers Care Pantograph Engraver Name Role Phone Nathalie Hsu MD Primary Care Provider [phone] Shannan Barrow RN Unavailable [phone] Lisbeth Johnson Unavailable Reason for Visit * Reason Comments Med Refill Encounter Details Date Type Department Care Team (Late st Contact Info) Description 08/14/2024 Refill [facility] MEDICINE 230 [place] [address] Nathalie Hsu MD 230 [place], [place] [phone] Alcoholic liver disease (CMS/HCC) Social History Tobacco [...] Description 12/20/2024 2:00 PM EDT Office Visit [facility] MEDICINE 230 [place] [address] Nathalie Hsu MD 230 [place] [address] 01/01/2025 9:00 AM EDT Office Visit [facility] OPTOMETRY [address] [place] [address] Zabrina Ann OD 230 [place] [address] 01/08/2025 10:00 AM EDT Office Visit [facility] ADULT DENTAL 230 [place] [address] Chiquita Montgomery 230 [place] [address] 02/16/2025 1:15 PM EST Office Visit [facility] MEDICINE 230 [place] [address] Renny Holloway MD 230 [place] [address] documented as of this encounter Visit Diagnoses Diagnosis Alcoholic liver disease (CMS/HCC) Unspecified alcoholic liver damage documented in this encounter Additional Health Concerns Assessment Noted Time PHQ-9 Depression Total Score: 0 06/09/19 9:13 AM EST documented as of this encounter Care Teams Pantograph Engraver Relationship Specialty Start Date End Date Nathalie Hsu MD 230 [place], [place] [phone] PCP - General Family Medicine 09/27/13 Shannan Barrow, KHAI [address] [place] [address] Registered Nurse 02/29/24 Lisbeth Johnson [address] [place] [address] 3rd [place] [address] Gastroenterology 03/15/24 Tonya Poole Sustainable Systems AnalystPharmacy Technologist 01/19/24 Sherin ([facility]) Registered Nurse 02/29/24 Marcos Verdin MD [place] [facility] [address] [place] [address] Cardiology 03/10/24 Omid Vincent Psychiatry 03/15/24 documented as of this encounter
--- OUTSIDE RECORDS SUMMARY | 2024-11-30 13:01 | XMS_ITS | Clinical Summary ---
Author Organization [employer] Address [address] [place] [address] Care Team Providers Care Books Salesperson Name Role Phone Stevenson, Nathalie ABDI Primary Care Provider [phone] Shannan Barrow RN Unavailable [phone] Lisbeth Johnson Unavailable Allergies Active Allergy [...] capsuleIndicatio ns:Primary insomnia Take by mouth. Dr. Vicnent Active chlorhexidine (Peridex) 0.12 % solution Swish [...] mouth Once per day. 11/21/19 25 Active magnesium 200 MG tabletIndication s:Hypomagnesemia Take 1 tab po tid 90 tablet 3 11/30/19 25 Active folic acid (Folvite) 1 MG [...] 12/10/23 and INR was 13, transferred to [facility] -pt fell again 08/18/24 X ray Acute [...] diet discussed. Avoid hepatotoxic agents. -Followed by: Dandy Operator, Dr. Johnson: Note from 07/28/24 reviewed [...] add a night time snack such as yemeni yogurt, PB etc - Home Care Manager referral - CLose follow up in 2 weeks -GI note 04/28/24 - Clarified need for CCC and Home Care Manager referrals - Due for EGD/colo - needs repeat echo ordered to follow up on cardiomyopathy prev EF 20-25% - Will also confirm his OP prospecting driller for clearance - Pt reminded to bring [...] Recently established care with Dr Holloway at [facility] for substance use disorder recovery and support. - Clarified need for CCC and Home Care Manager referrals - EGD/colo to be booked. He is aware he will need to review coumadin hold with his prospecting driller for this procedure - US abd ordered [...] diet discussed. Avoid hepatotoxic agents. -Followed by: Dandy Operator, Dr. Johnson: Note from 07/28/24 reviewed [...] add a night time snack such as yemeni yogurt, PB etc - Home Care Manager referral - CLose follow up in 2 weeks -GI note 04/28/24 - Clarified need for CCC and Home Care Manager referrals - Due for EGD/colo - needs repeat echo ordered to follow up on cardiomyopathy prev EF 20-25% - Will also confirm his OP prospecting driller for clearance - Pt reminded to bring [...] Recently established care with Dr Holloway at [facility] for substance use disorder recovery and support. - Clarified need for CCC and Home Care Manager referrals - EGD/colo to be booked. He is aware he will need to review coumadin hold with his prospecting driller for this procedure - US abd ordered [...] diet discussed. Avoid hepatotoxic agents. -Followed by: Dandy Operator, Dr. Johnson: Note from 07/28/24 reviewed [...] add a night time snack such as yemeni yogurt, PB etc - Home Care Manager referral - CLose follow up in 2 weeks -GI note 04/28/24 - Clarified need for CCC and Home Care Manager referrals - Due for EGD/colo - needs repeat echo ordered to follow up on cardiomyopathy prev EF 20-25% - Will also confirm his OP prospecting driller for clearance - Pt reminded to bring [...] Recently established care with Dr Holloway at [facility] for substance use disorder recovery and support. - Clarified need for CCC and Home Care Manager referrals - EGD/colo to be booked. He is aware he will need to review coumadin hold with his prospecting driller for this procedure - US abd ordered [...] by: New appointment with GI 03/15/24 at [facility] Assessment & Plan (01/19/2024 [...] due after 09/20/25 -eye care facilitated by [facility] -dental home is [facility] -health care proxy on file 02/08/2015, filed into epic on 06/09/23 Assessment & Plan (09/22/2024 8:39 AM EDT): -next comprehensive annual evaluation due after 09/20/25 -eye care facilitated by [facility] -dental home is [facility] care proxy on file 02/08/2015, filed into [employer] on 06/09/23 Assessment & Plan (03/10/2024 9:55 PM EST): -next comprehensive annual evaluation due after 03/03/2024 -eye care facilitated by [facility] -dental home is [facility] care proxy on file 02/08/2015, filed into [employer] on 06/09/23 Assessment & Plan (01/19/2024 9:20 AM EDT): -next comprehensive annual evaluation due after 03/03/2024 -eye care facilitated by [facility] -dental home is [facility] care proxy on file 02/08/2015, filed into [employer] on 06/09/23 Assessment & Plan (12/27/2023 11:02 AM EDT): -next comprehensive annual evaluation due after 03/03/2024 -eye care facilitated by [facility] -dental home is [facility] care proxy on file 02/08/2015, filed into [employer] on 06/09/23 Assessment & Plan (10/22/2023 11:16 AM EDT): -next physical exam due after 03/03/2024 -eye care facilitated by [facility] -dental home is [facility] care proxy on file 02/08/2015, filed into [employer] on 06/09/23 Assessment & Plan (03/03/2023 9:35 [...] entresto startd by cardiology 05/2022 -F/u with prospecting driller ANA Smtih -furosemide 40 mg started during hospitalization 05/17/23, [...] entresto startd by cardiology 05/2022 -F/u with prospecting driller ANA Smith -furosemide 40 mg started during [...] entresto startd by cardiology 05/2022 -F/u with prospecting driller ANA Smith -furosemide 40 mg started during [...] entresto startd by cardiology 05/2022 -F/u with prospecting driller ANA Smith -Furosemide 40 mg started during [...] entresto startd by cardiology 05/2022 -F/u with prospecting driller ANA Smith -Furosemide 40 mg started during [...] entresto startd by cardiology 05/2022 -F/u with prospecting driller ANA Smith Assessment & Plan (06/03/2022 11:12 [...] entresto startd by cardiology 05/2022 -F/u with prospecting driller ANA Smith Assessment & Plan (05/07/2022 10:43 [...] daily, and amlodipine 2.5mg daily -F/u with prospecting driller ANA Smith -He is overdue for follow [...] (12/24/2022): -Hospitalized for subarachnoid hemorrhage 10/2021 at [facility] after fall in the setting of supratheraputic INR of 16 and heavy alcohol use. He was changed to lovenox but could not tolerate the injections. Back on coumadin with improved INRs. He is also on plavix. ER precautions discussed. Assessment & Plan (10/22/2023 11:16 AM EDT): -Hospitalized for subarachnoid hemorrhage 10/2021 at [facility] after fall in the setting of supratheraputic INR of 16 and heavy alcohol use. He was changed to lovenox but could not tolerate the injections. Back on coumadin with improved INRs. He is also on plavix. ER precautions discussed. Assessment & Plan (06/09/2023 9:36 AM EST): -Hospitalized for subarachnoid hemorrhage 10/2021 at [facility] after fall in the setting of supratheraputic INR of 16 and heavy alcohol use. He was changed to lovenox but could not tolerate the injections. Back on coumadin with improved INRs. He is also on plavix. ER precautions discussed. Assessment & Plan (08/11/2022 7:29 AM EDT): -Hospitalized for subarachnoid hemorrhage 10/2021 at [facility] after fall in the setting of supratheraputic INR of 16 and heavy alcohol use. He was changed to lovenox but could not tolerate the injections. Back on coumadin with improved INRs. He is also on plavix. ER precautions discussed. Assessment & Plan (06/03/2022 11:07 AM EST): -Hospitalized for subarachnoid hemorrhage 10/2021 at [facility] after fall in the setting of supratheraputic INR of 16 and heavy alcohol use. Now on Lovenox and clopidogrel. Assessment & Plan (05/07/2022 10:53 AM EST): Hospitalized for subarachnoid hemorrhage 10/2021 at [facility] after fall in the setting [...] daily drinking and rum - established with [facility] because insurance no longer accepted by [facility]. -Patient followed at [facility] with [...] daily drinking and rum - established with [facility] because insurance no longer accepted by [facility]. -Patient followed at [facility] with [...] daily drinking and rum - established with [facility] because insurance no longer accepted by [facility]. -Patient followed at [facility] with [...] daily drinking and rum - established with [facility] because insurance no longer accepted by [facility]. -Patient followed at [facility] with [...] daily drinking and rum - established with [facility] because insurance no longer accepted by [facility]. -Patient followed at [facility] with [...] daily drinking and rum - established with [facility] because insurance no longer accepted by [facility]. -Patient followed at [facility] with [...] daily drinking and rum - established with [facility] because insurance no longer accepted by [facility]. -Patient followed at [facility] with Dr. rCistine Deleon DO, seen 06/09/23 Assessment & Plan [...] daily drinking and rum - established with [facility] because insurance no longer accepted by [facility]. Assessment & Plan (11/30/2022 8:51 PM EDT): hx of aortic stenosis s/p Aortic valve repair, hx of AF , cardiomyopathy with EF 25-30%, ,hx AAA repair, complete heart block s/p pacemaker,CAD s/P stent INR goal 2.5 to 3.5 -continue to f up with his prospecting driller-next apt w Dr Deleon is on 12/08/2022 - I called cards' office # [phone] and confirmed day and hour and gave [...] daily drinking and rum - Established with [facility] because insurance no longer accepted by [facility]. Assessment & Plan (06/03/2022 11:09 [...] ETOH with intracranial bleed. - established with [facility] because insurance no longer accepted by [facility]. Last seen 05/2022 recommending 4 week follow up Assessment & Plan (05/07/2022 10:46 AM EST): Hx [address] 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 No hx CABG. Pacemaker placed for AV radha block. -On Coumadin, managed by [facility]. - established with [facility] because insurance no longer accepted by [facility]. Presence of cardiac pacemaker 03/07/2014 [...] as pharmacomtherapy, [facility] smoking cessation [facility], and [facility] pharmacy smoking cessation clinic -currently [...] as pharmacomtherapy, [facility] smoking [facility], and [facility] pharmacy smoking cessation clinic -currently [...] as pharmacomtherapy, [facility] smoking [facility], and [facility] pharmacy smoking cessation clinic -currently [...] as pharmacomtherapy, [facility] smoking [facility], and [facility] pharmacy smoking cessation clinic -currently [...] as pharmacomtherapy, [facility] smoking cessation group, and [facility] pharmacy smoking cessation clinic -currently [...] as pharmacomtherapy, [facility] smoking [facility], and [facility] pharmacy smoking cessation clinic -currently [...] tabs BID 06/09/23 Alcohol Use Disorder Clinic [facility] televist tolerating the medication. [...] tabs BID 06/09/23 Alcohol Use Disorder Clinic [facility] televist tolerating the medication. [...] Diagnosed Date Resolved Date Decompensated cirrhosis 09/20/2024 08/10/2024 Assessment & Plan (09/22/2024 8:39 AM EDT): [...] up to 20 doses. Missing teeth, acquired 06/08/2024 08/2 10/2024 Assessment & Plan (09/22/2024 8:39 AM EDT): [...] 04/15/2023 04/15/2023 4 Alcohol abuse 12/24/2022 10/22/2023 Complete heart block [...] Pt followed by Dr Carlton gomez signed 9/7/22 to discuss Pt case. I do not [...] Description 11/29/2024 11:00 AM EDT Office Visit [facility] [address] [place] [phone] Nathalie Hsu MD Hypomagnesemia (Primary Dx); Alcohol use disorder, severe, dependence (CMS/HCC); Alcoholic liver disease (CMS/HCC); Anticoagulated on Coumadin; Cardiomyopathy, unspecified type (CMS/HCC); History of prosthetic heart valve; Tobacco dependence 11/29/2024 Telephone [facility]AT[facility] [address] [place] [address] Nathalie Hsu MD Critical Magnesium 11/29/2024 Orders Only [facility] [address] [place] [address] Nathalie Hsu MD 11/29/2024 Travel 11/28/2024 Telephone [facility] [address] [place] [address] Nathalie Hsu MD CRITICAL LAB 11/28/[address] [address] Nathalie Hsu MD CHART PREP 11/24/2024 1:30 PM EDT Office Visit [facility] MED[facility] [address] [place] [address] Renny Holloway MD Alcohol use disorder, severe, dependence (CMS/HCC) (Primary Dx); Nausea and vomiting, unspecified vomiting type; Hypomagnesemia 11/24/2024 Travel 11/21/2024 Telephone [facility] [address] [place] [address] Nathalie Hsu MD CRITICAL LAB 11/16/[address] [address] Nathalie Hsu MD History of alcohol abuse; Primary insomnia 11/14/[address] [address] Nathalie Hsu MD Critical INR 11/12/[address] [address] Nathalie Hsu MD History of alcohol abuse 11/09/2024 1:00 PM EDT Office Visit [facility] OPTOMETRY [address] [place] [address] Seth, Zabrina, OD Combined forms of age-related cataract of both eyes (Primary Dx); Meibomian gland disease of upper and lower eyelids of both eyes; Pinguecula of both eyes; Presbyopia 11/09/2024 Travel 11/09/2024 Refill [facility] [address] [place] [address] Nathalie Hsu MD Alcoholic liver disease (CMS/HCC) 11/07/[address] [address] Nathalie Hsu MD INR RESULT 11/01/[address] [address] Nathalie Hsu MD Severe dental caries; Dental root caries; Advanced periodontitis; Excessive attrition of teeth, limited to enamel; Missing teeth, acquired; Dental calculus 10/31/2024 Telephone [facility] [address] [place] [address] Nathalie Hsu MD Results 10/30/[address] [address] Nathalie Hsu MD Medication Question 10/24/[address] [address] Nathalie Hsu MD INR results 10/17/[address] [address] Nathalie Hsu MD Lab Orders 10/17/[address] [address] Nathalie Hsu MD Med Refill; Lab Results 10/13/2024 2:00 PM EDT Office Visit [address] [address] Renny Holloway MD Alcohol use disorder, severe, dependence ([facility]/HCC) 10/13/2024 Travel 10/10/[address] [address] Nathalie Hsu MD Coagulation Disorder 10/08/[address] [address] Nathalie Hsu MD Pain; Mild intermittent asthma without complication; History of prosthetic heart valve 10/08/[address] [address] Renny Holloway MD Alcohol use disorder, severe, dependence ([facility]/HCC) 10/06/[address] [address] Renny Holloway MD Tobacco dependence; Pain; Mild intermittent asthma without complication 10/04/[address] [address] Nathalie Hsu MD critcal lab 09/27/[address] [address] Nathalie Hsu MD PT1 09/26/[address] [address] Nathalie Hsu MD INR result 09/25/2024 Refill [facility] [address] [place] [address] Nathalie Hsu MD Severe dental caries; Dental root caries; Advanced periodontitis; Excessive attrition of teeth, limited to enamel; Missing teeth, acquired; Dental calculus 09/20/2024 3:30 PM EDT Office Visit [address] [address] Nathalie Hsu MD Cardiomyopathy, unspecified type ([facility]/HCC) (Primary Dx); Chronic coronary microvascular dysfunction; History of prosthetic heart valve; Hypertension, unspecified type; Paroxysmal atrial fibrillation ([facility]); Presence of cardiac pacemaker; Anticoagulated on Coumadin; Seizure disorder ([facility]); Mild intermittent asthma, unspecified whether complicated; Alcoholic liver disease ([facility]); Alcohol use disorder, severe, dependence ([facility]/HCC); Decompensated cirrhosis ([facility]); Anemia, unspecified type; History of GI bleed; Vitamin B 12 deficiency; Depressive disorder; Tobacco dependence; Dental root caries; Severe dental caries; Dental calculus; Missing teeth, acquired; Excessive attrition of teeth, limited to enamel; Advanced periodontitis; Overweight; Dietary counseling; Exercise counseling; Other specified health status 09/20/2024 Travel 09/19/2024 10:00 AM EDT Office Visit [facility] ADULT DENTAL [address] [place] [address] Panchito Lamas DDS Advanced periodontitis (Primary Dx); Dental caries 09/19/2024 Telephone [facility] [address] [place] [address] Nathalie Hsu MD CRITICAL LAB 09/19/2024 Telephone [facility] [address] [place] [address] Elizabeth Alejandre MA chart prep 09/12/2024 Anticoagulation - Warfarin Visit [address] [phone] Shannan Barrow, RN History of prosthetic heart valve 09/11/2024 Patient Outreach [facility] [address] [place] [address] Nathalie Hsu MD Transition Of Care (Tcm) 09/07/2024 2:15 PM EDT Telemedicine [facility] [address] [place] [address] Amy Moreno, KHAI ETOH abuse; Acute pain of left shoulder 09/07/2024 Travel 09/05/2024 Telephone [facility] [address] [place] [address] Nathalie Hsu MD lab results ( INR) 08/31/2024 Orders Only [facility] External Provider, [facility] 08/31/2024 Refill [facility] [address] [place] [address] Nathalie Hsu MD Alcoholic liver disease (CMS/HCC) from Last 3 Months Immunizations Immunization Administration [...] Description 12/20/2024 2:00 PM EDT Office Visit [facility] MED[facility] [address] [place] [address] Nathalie Hsu MD [address] [place] [address] 01/01/2025 9:00 AM EDT Office Visit [facility] OPTOMETRY [address] [place] [address] Seth, Zabrina, OD [address] [place] [address] 01/08/2025 10:00 AM EDT Office Visit [facility] ADULT DENTAL [address] [place] [address] Ulises, Chiquita [address] [place] [address] 02/16/2025 1:15 PM EST Office Visit [facility] MEDICINE [address] [place] [address] Renny Holloway MD [address] [place] [address] Health Maintenance Due Date Last Done Comments [...] METABOLIC PANEL Routine 11/29/2024 11:20 AM EDT MAGNESIUM Routine 11/29/2024 11:20 AM EDT Nausea and vomiting, unspecified vomiting type Hypomagnesemia BASIC METABOLIC PANEL Routine 11/29/2024 11:20 AM EDT Nausea and vomiting, unspecified vomiting type Hypomagnesemia PROTHROMBIN TIME-INR Routine 11/28/2024 PROTHROMBIN TIME-INR Routine [...] CONTRAST Routine 08/31/2024 9 :21 PM EDT INTRAORAL - COMPLETE SERIES OF RADIOGRAPHIC IMAGES [...] Relevant to Health Maintenance Results * (ABNORMAL) Magnesium (11/29/2024 11:20 AM EDT) Magnesium 1.4(LL) 1.6 - 2.6 mg/dL [facility] Comment:Critical value for t est(s): MAGNESIUM Results called to anna back by: JESSE Person calling: HARPREET Date: 11/29/24Time: 1436 Blood Venous blood specimen / Unknown 11/29/2024 11:20 AM EDT 11/29/2024 1:04 PM EDT us Renny Holloway MD LAB BLOOD ORDERABLES Final Resul t [facility] [address] [place] [phone] * (ABNORMAL) Basic Metabolic Panel (11/29/2024 11:20 AM EDT) Only the most recent of2 resultswithin the time period is included. Sodium 136 135 - 145 mmol/L [facility] Potassium 4.0 3.3 - 5.1 mmol/L [facility] Chloride 107 96 - 108 mmol/L [facility] Carbon Dioxide 20(L) 22 - 29 mmol/L [facility] Anion Gap 13 12 - 20 [facility] Urea Nitrogen (BUN) 19(H) 9 - 16 mg/dL [facility] Creatinine, Serum 1.31 0.5 - 1.4 mg/dL [facility] Estimated Glomerular Filt Rate 55 [facility] Comment:Chronic Kidney Disea se: Estimated GFR < 60 mL/min/[id number] Kidney Disease: Estimated GFR < 15 mL/min/1.73m2 Glucose 127(H) 60 - 115 mg/dL [facility] Calcium 9.1 8.4 - 10.2 mg/dL [facility] 11/29/2024 11:2 0 AM EDT 11/29/2024 1:04 PM EDT Nathalie Hsu MD LAB BLOOD ORDERABLES Final Result Performing Organization Address City/[facility]/ZIP Co de Phone Number [facility] [address] [place] [phone] * (ABNORMAL) Prothrombin Time-INR (11/28/2024) Only the most recent of13 resultswithin the [...] PM EDT Narrative 08/31/2024 9:23 PM EDT [place] [address] [address] Scan Report Signed Patient: Omid Caballero MR#: [id number] 14 : 1960 Acct:[id number] Age/Sex: 64 / M ADM Date: 08/31/24 Loc: HO.ED Attending Dr: Ordering Physician: Greta Daniels CNP Date of Service: 08/31/24 Procedure(s): CT head/brain wo IV con Accession Number(s): [id number] cc: Greta Daniels CNP; Nathalie Hsu MD Report Number: [id number]: Total DLP = 0.00 mGy-cm CLINICAL HISTORY: [...] in OV> 08/31/242121 DD/ 20 TD/TT: 08/31/242120 Compugraph Operator: Procedure Note Donotuseinterpreter, Image - 08/31/[address] [place] [address] [address] Scan Report Signed Patient: Mandi Caballero#: [id number] 14 : 1960cct:[id number] Age/Sex: 64 / MADM Date: 08/31/24 Loc: HO.ED Attending Dr: Ordering Physician: Greta Daniels CNP Date of Service: 08/31/24 Procedure(s): CT head/brain wo IV con Accession Number(s): [id number] cc: Greta Daniels CNP; Nathalie Hsu MD Report Number: [id number]: Total DLP = 0.00 mGy-cm CLINICAL HISTORY: [...] in OV> 08/31/242121 DD/ 20 TD/TT: 08/31/242120 Compugraph Operator: [facility] External Provider IMG CT PROCEDURES Edited Result - Final * Cologuard?? colon cancer screening (12/30/2023 1:30 AM EDT) Cologuard Result Negative Negative 01/05/20 1:07 AM EDT [facility] (CLIA #:[id number]) Comment: NEGATIVE TEST RESULT. A negative Cologuard [...] Haq et al, N Engl J Med 2014;370(14):9266-7383) The normal value (reference range) for this assay is negative. COLOGUARD RE-SCREENING RECOMMENDATION: Periodic colorectal cancer screening is an important part of preventive healthcare for asymptomatic individuals at average risk for colorectal cancer. Following a negative Cologuard result, the [place] [employer] and U.S. Multi-Society Task Force screening guidelines recommend a Cologuard re-screening interval of 3 years. References: [place] [employer] Guideline for Colorectal Cancer Screening: https://www.cancer.org/cancer/jerra-ayzmpv-ubanwf/iebxybaah-qsoukkile-glnbzlw/ac s-rec ommendations.html.; Honorio PINA, Lita NEGRETE, Luba JamesK, Colorectal Cancer Screening: Recommendations for Physicians and Patients from the U.S. Multi-Society Task Force on Colorectal Cancer Screening , Am J Gastroenterology 2017; 112:9189-0001. TEST DESCRIPTION: Composite algorithmic analysis of stool [...] (Tien Landeros al, N Engl J Med 2014;370(14):0507-2724.) Cologuard may produce a false negative or false positive result (no colorectal cancer or precancerous polyp present at colonoscopy follow up). A negative Cologuard test result does not guarantee the absence of CRC or advanced adenoma (pre-cancer). The current Cologuard screening interval is every 3 years. ([place] [employer] Society and U.S. Multi-Society Task Force). Cologuard performance data in a 10,000 patient pivotal study using colonoscopy as the reference method can be accessed at the following location: www.MatsSoft/results. Additional description of the Cologuard test process, warnings and precautions can be found at www.mysportgroupogGraceful Tablesrd.PickPark. Stool specimen (specimen) Rectal contents / Unknown 12/30/2023 1:30 AM EDT 01/01/2024 3:30 PM EDT Nathalie Hsu MD LAB MOLECULAR DIAGNOSTICS ORDERABLES Final Result [facility] (CLIA #:[id number]) [place] [address], * Hepatitis C Antibody with Reflex to HCV, RNA, Quantitative, Real-Time PCR (08/10/2022 11:24 AM EDT) Hepatitis C Antibody NON-REACT KG NON-REACT KG [facility] [employer] Index 0.13 <1.00 [employer] Comment: HCV antibody was non-reactive. There is no laboratory evidence of HCV infection. In most cases, no further action is required. However, if recent HCV exposure is suspected, a test for HCV RNA (test code 31137) is suggested. For additional information please refer to http://education.Vonvo.com.PickPark/faq/CDO15i5 (This link is being provided for informational/ educational purposes only.) Blood Venous blood specimen / Unknown 08/10/2022 11:24 AM EDT 08/10/2022 11:25 AM EDT Narrative [facility] - 08/16/2022 12:40 AM EDT FASTING:NO FASTING: NO Nathalie Hus MD LAB BLOOD ORDERABLES Final Result [address], [facility] [place] [address] [facility] [place] [facility] [employer] [address] [place] [phone] * HIV-1/2 Antigen and Antibodies, Fourth Generation, with Reflexes (08/10/2022 11:24 AM EDT) [facility] HIV Antigen/Antibody, 4th Generation NON-REAC TIVE NON-REAC TIVE [facility] [place] [employer] Comment: HIV-1 antigen and HIV-1/HIV-2 antibodies were [...] purpose. For additional information please refer to http://education.Vonvo.com.PickPark/faq/VQM672 (This link is being provided for informational/ educational purposes only.) The performance of this assay has not been clinically validated in patients less than 2 years old. Blood Venous blood specimen / Unknown 08/10/2022 11:24 AM EDT 08/10/2022 11:25 AM EDT Narrative [facility] - 08/16/2022 12:40 AM EDT FASTING:NO FASTING: NO Nathalie Hsu MD LAB BLOOD ORDERABLES Final Result [address], [facility] [place] [address] [facility] [place] [facility] [address] [place] [address] * Lipid Panel, Standard (08/10/2022 11:24 AM EDT) Cholesterol, Total 161 <200 mg/dL [facility] [place] [facility] HDL Cholesterol 62 > OR = 40 mg/dL [facility] [place] [facility] Triglycerides 109 <150 mg/dL [facility] [place] [facility] LDL Cholesterol 80 mg/dL (calc) [facility] [place] [facility] Comment: Reference range: <100 Desirable range <100 mg/dL for primary prevention; <70 mg/dL for patients with CHD or diabetic patients with > or = 2 CHD risk factors. LDL-C is now calculated using the Gallo calculation, which is a validated novel method providing better accuracy than the Friedewald equation in the estimation of LDL-C. Anthony SS et al. FLAKITA. 2013;310(19): 9125-6587 (http://education.Versaworks/faq/JPU092) Chol/HDLC Ratio 2.6 <5.0 (calc) [facility] [place] [facility] Non-HDL Cholesterol 99 <130 mg/dL (calc) [facility] [place] [facility] Comment: For patients with diabetes plus 1 major ASCVD risk factor, treating to a non-HDL-C goal of <100 mg/dL (LDL-C of <70 mg/dL) is considered a therapeutic option. Blood Venous blood specimen / Unknown 08/10/2022 11:24 AM EDT 08/10/2022 11:25 AM EDT Narrative [facility] - 08/16/2022 12:40 AM EDT FASTING:NO FASTING: NO Nathalie Hsu MD LAB BLOOD ORDERABLES Final Result [facility] [address], [place] [address] [facility] [place] [facility] [address] [place] [address] * Hm Colonoscopy (03/05/2012) Colonoscopy Dr. 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 [address] [place] [address] Cardiology 03/10/24 Omid Vincent Psychiatry 03/15/24
--- OUTSIDE RECORDS SUMMARY | 2024-11-30 13:01 | XMS_ITS | Encounter Summary ---
Author Organization [employer] Address [address] [facility] [address] 7t [place] [address] Care Team Providers Care Guidance Director Name Role Phone Nathalie Hsu MD Primary Care Provider [phone]- [phone] Shannan Barrow RN Unavailable [phone] Lisebth Johnson Unavailable Reason for Visit * Reason Onset Date Comments Critical Magnesium 11/29/2024 Encounter Details Date Type Department Care Team (Late st Contact Info) Description 11/29/2024 Telephone [facility] PEDIATRICS [address] [place] [address] Nathalie Hsu MD [address] [place] [address] Critical Magnesium Social History Tobacco Use Types Packs/Day Years [...] t he electric, gas, oil or water [employer] threatened to shut off services in your [...] Telephone Encounter - Shannan Barrow RN - 11/29/2024 4:28 PM EDT Telephone call placed to pt. Informed magnesium very low. Pt refuses ED. Informed alternate mag supplement sent to be taken TID and that it is less harsh so hopefully shouldn't have side effects. Informed very important he picks up and takes EMERY. Pt agreeable. Requested I make sure it is ready in pharmacy and he will come get it. Advised repeat labs in 2 weeks. Pt agrees with plan. Pt requested I contact KAVIN Duff to inform of plan and make sure she is still coming today as he hasn't seen her yet. Telephone call placed to pharmacy. Advised discontinue last magnesium supplement and fill new one. They will get ready now. Telephone call placed to Sherin VALE. Informed of above advice. She verbalized understanding and states will go see pt shortly and will update his medbox. * Telephone Encounter - Ioana Loomis RN - 11/29/2024 2:55 PM EDT Incoming call from the [facility], [facility] . Ridge reported the pt's Magnesium level of 1.4 today . A warm hand off was given to Shannan RIDLEY . Will route this message to the PCP ,and to the green team nurses for review. TY. documented in this encounter Plan of Treatment Upcoming Encounters Date Type Department Care Team (Late st Contact Info) Description 12/20/2024 2:00 PM EDT Office Visit [facility] MEDICINE [address] [place] [address] Nathalie Hsu MD [address] [place] [address] 01/01/2025 9:00 AM EDT Office Visit [facility] OPTOMETRY [address] [place] [address] Seth, Zabrina, OD 230 [place] [address] 01/08/2025 10:00 AM EDT Office Visit [facility] ADULT DENTAL [address] [place] [address] Ulises, Chiquita [address] [place] [address] 02/16/2025 1:15 PM EST Office Visit [facility] MEDICINE [address] [place] [address] Renny Holloway MD [address] [place] [address] documented as of this encounter Visit Diagnoses Not on filedocumented in this encounter Additional Health Concerns Assessment Noted Time PHQ-9 Depression Total Score: 0 09/21/19 25 3:24 PM EDT documented as of this encounter Care Teams Guidance Director Relationship Specialty Start Date End Date Nathalie Hsu MD [address] [place] [address] PCP - General Family Medicine 09/27/13 Shannan Barrow, RN [address] [place] [address] Registered Nurse 02/29/24 Lisbeth Johnson [address] 3rd [place] [address] Gastroenterology 03/15/24 Tonya Poole Treatment CounselorConverting Operator 01/19/24 Sherin ([facility]) Registered Nurse 02/29/24 MD [place] [facility] [address] [place] [address] Cardiology 03/10/24 Omid Vincent Psychiatry 03/15/24 documented as of this encounter
--- OUTSIDE RECORDS SUMMARY | 2024-11-30 13:01 | XMS_ITS | Encounter Summary ---
Author Organization [email or web address] Address [address] [facility] [address] [place] [address] Care Team Providers Care Cell Lead Name Role Phone Nathalie Hsu MD Primary Care Provider [phone] Shannan Barrow RN Unavailable [phone] Lisbeth Johnson Unavailable Reason for Visit * Reason Onset Date Comments INR report 03/31/2023 Encounter Details Date Type Department Care Team (Late st Contact Info) Description 03/31/2023 Telephone [facility] [address] [place], [place] [phone] Nathalie Hsu MD [address] [place], [place] [phone] INR report Social History Tobacco Use Types [...] PM EST Tc from Raman VALE with [facility] requesting a call from a nurse to report an INR results. Please contact Raman @ [phone] documented in this encounter Plan of Treatment Upcoming Encounters Date Type Department Care Team (Late st Contact Info) Description 12/20/2024 2:00 PM EDT Office Visit [facility] [address] [place] [address] Nathalie Hsu MD 230 [place] [address] 01/01/2025 9:00 AM EDT Office Visit [facility] OPTOMETRY [address] [place] [address] Zabrina Ann, OD 230 [place] [address] 01/08/2025 10:00 AM EDT Office Visit [facility] ADULT DENTAL [address] [place] [address] Adalberto Montgomeryaris [address] [place] [address] 02/16/2025 1:15 PM EST Office Visit [facility] [address] [place] [address] Renny Holloway MD [address] [place] [address] documented as of this encounter Visit Diagnoses Not on filedocumented in this encounter Additional Health Concerns Assessment Noted Time PHQ-9 Depression Total Score: 6 05/08/19 23 10:33 AM EST documented as of this encounter Care Teams Cell Lead Relationship Specialty Start Date End Date Nathalie Hsu MD [address] [place] [address] PCP - General Family Medicine 09/27/13 Shannan Barrow, KHAI [address] [place] [address] Registered Nurse 02/29/24 Lisbeth Johnson [address] [place] [address] Drive 3rd [place] [address] Gastroenterology 03/15/24 Tonya Poole Belt RepairerButcher Head 01/19/24 Sherin ([facility]) Registered Nurse 02/29/24 Marcos Verdin MD [place] [facility] [address] [place] [address] Cardiology 03/10/24 Omid Vincent Psychiatry 03/15/24 documented as of this encounter
--- OUTSIDE RECORDS SUMMARY | 2024-11-30 13:01 | XMS_ITS | Encounter Summary ---
Author Organization [employer] Address [address] [facility] 7t [place] [address] Care Team Providers Care Logistics Service Representative Name Role Phone Nathalie Hsu MD Primary Care Provider [phone] Shannan Barrow RN Unavailable [phone] Lisbeth Johnson Unavailable Reason for Visit * Reason Comments Med Refill Encounter Details Date Type Department Care Team (Late st Contact Info) Description 02/12/2023 Refill [facility] MEDICINE [address] [place], [place] [phone] Nathalie Hsu MD [address] [place], [place] [phone] Pain Social History Tobacco Use Types Packs/Day [...] Description 12/20/2024 2:00 PM EDT Office Visit [facility] MEDICINE [address] [place] [address] Nathalie Hsu MD [address] [place] [address] 01/01/2025 9:00 AM EDT Office Visit [facility] OPTOMETRY [address] [place] [address] Seth, Zabrina, OD 230 [place] [address] 01/08/2025 10:00 AM EDT Office Visit [facility] ADULT DENTAL [address] [place] [address] Ulises, Chiquita [address] [place] [address] 02/16/2025 1:15 PM EST Office Visit [facility] MEDICINE [address] [place] [address] Renny Holloway MD 230 [place] [address] documented as of this encounter Visit Diagnoses Diagnosis Pain Generalized pain documented in this encounter Additional Health Concerns Assessment Noted Time PHQ-9 Depression Total Score: 6 05/08/19 23 10:33 AM EST documented as of this encounter Care Teams Logistics Service Representative Relationship Specialty Start Date End Date Nathalie Hsu MD [address] [place] [address] PCP - General Family Medicine 09/27/13 Shannan Barrow, RN [address] [place] [address] Registered Nurse 02/29/24 Lisbeth Johnson [address] 3rd [place] [address] Gastroenterology 03/15/24 Tonya Poole Refrigeration System InstallerMedical Records Coder 01/19/24 Sherin ([facility]) Registered Nurse 02/29/24 Marcos Verdin MD [place] [facility] [address] [place] [address] Cardiology 03/10/24 Omid Vincent Psychiatry 03/15/24 documented as of this encounter
--- OUTSIDE RECORDS SUMMARY | 2024-11-30 13:01 | XMS_ITS | Encounter Summary ---
Author Organization [employer] Address [address] [facility] [address] 7t [place] [address] Care Team Providers Care Vessel Crew Member Name Role Phone Nathalie Hsu MD Primary Care Provider [phone]- [phone] Shannan Barrow RN Unavailable [phone] Lisbeth Johnson Unavailable Reason for Visit * Reason Comments Med Refill Encounter Details Date Type Department Care Team (Late st Contact Info) Description 11/01/2023 Refill [facility] MED & PEDS [address] [place], [place] [phone] Nathalie Hsu MD [address] [place], [place] [phone] Mild intermittent asthma, unspecified whether complicated Social [...] the past 12 months, has t he [employer], gas, oil or water [employer] threatened to shut off services in your [...] Description 12/20/2024 2:00 PM EDT Office Visit [facility] MEDICINE [address] [place] [address] Nathalie Hsu MD [address] [place] [address] 01/01/2025 9:00 AM EDT Office Visit [facility] OPTOMETRY [address] [place] [address] SethZabrina funes, OD 230 [place] [address] 01/08/2025 10:00 AM EDT Office Visit [facility] ADULT DENTAL 230 [place] [address] Ulises Chiquita [address] [place] [address] 02/16/2025 1:15 PM EST Office Visit [facility] MEDICINE [address] [place] [address] Renny Holloway MD [address] [place] [address] documented as of this encounter Visit Diagnoses Diagnosis Mild intermittent asthma, unspecified whether complicated documented in this encounter Additional Health Concerns Assessment Noted Time PHQ-9 Depression Total Score: 0 06/09/19 24 9:13 AM EST documented as of this encounter Care Teams Vessel Crew Member Relationship Specialty Start Date End Date Nathalie Hsu MD 230 [place] [address] PCP - General Family Medicine 09/27/13 Shannan Barrow, KHAI [address] [place] [address] Registered Nurse 02/29/24 Lisbeth Johnson [address] [place] [address] 3rd [place] [address] Gastroenterology 03/15/24 Tonya Poole Robotic Maintenance TechnicianTailor Fitter 01/19/24 Sherin ([facility]) Registered Nurse 02/29/24 Marcos Verdin MD [place] [facility] [address] [place] [address] Cardiology 03/10/24 Omid Vincent Psychiatry 03/15/24 documented as of this encounter
--- OUTSIDE RECORDS SUMMARY | 2024-11-30 13:01 | XMS_ITS | Encounter Summary ---
Author Organization [employer] Address [address] [facility] [address] 7t [place] [address] Care Team Providers Care Cigarette Making Examiner Name Role Phone Nathalie Hsu MD Primary Care Provider [phone]- [phone] Shannan Barrow RN Unavailable [phone] Lisbeth Johnson Unavailable Reason for Visit * Reason Onset Date Comments Med Refill 03/09/2024 Encounter Details Date Type Department Care Team (Late st Contact Info) Description 03/09/2024 Telephone [facility] MEDICINE [address] [place] [address] Nathalie Hsu MD 230 [place], [place] [phone] Med Refill Social History Tobacco Use Types [...] 9:13 AM EST Medication was sent to [facility] on 12/13/23 #60 with 3 refills. * Telephone Encounter - Alf Avilez - 03/09/2024 9:07 AM EST TC from pt requesting medication refill. Medications needing refill : melatonin 5 MG tablet To be sent to: [facility] documented in this encounter Plan of Treatment Upcoming Encounters Date Type Department Care Team (Late st Contact Info) Description 12/20/2024 2:00 PM EDT Office Visit [facility] MEDICINE [address] [place] [address] Nathalie Hsu MD 230 [place] [address] 01/01/2025 9:00 AM EDT Office Visit [facility] OPTOMETRY [address] [place] [address] Seth, Zabrina, OD 230 [place] [address] 01/08/2025 10:00 AM EDT Office Visit [facility] ADULT DENTAL [address] [place] [address] Ulises, Chiquita [address] [place] [address] 02/16/2025 1:15 PM EST Office Visit [facility] MEDICINE [address] [place] [address] Renny Holloway MD [address] [place] [address] documented as of this encounter Visit Diagnoses Not on filedocumented in this encounter Additional Health Concerns Assessment Noted Time PHQ-9 Depression Total Score: 0 06/09/19 9:13 AM EST documented as of this encounter Care Teams Cigarette Making Examiner Relationship Specialty Start Date End Date Nathalie Hsu MD [address] [place] [address] PCP - General Family Medicine 09/27/13 Shannan Barrow, KHAI [address] [place] [address] Registered Nurse 02/29/[address] 3rd [place] [address] Gastroenterology 03/15/24 Tonya Poole Director Of ComplianceMachine Maintenance Supervisor 01/19/24 Sherin ([facility]) Registered Nurse 02/29/24 Marcos Verdin MD [place] [facility] [address] [place] [address] Cardiology 03/10/24 Omid Vincent Psychiatry 03/15/24 documented as of this encounter
--- OUTSIDE RECORDS SUMMARY | 2024-11-30 13:01 | XMS_ITS | Encounter Summary ---
Author Organization [employer] [facility] Address [address] [facility] 7t [place] [address] Care Team Providers Care Variety Saw Operator Name Role Phone Nathalie Hsu MD Primary Care Provider [phone]- [phone] Shannan Barrow RN Unavailable [phone] Lisbeth Johnson Unavailable Encounter Details Date Type Department Care Team ([facility] Contact Info) Description 05/12/2022 Abstract [facility] MEDICINE [address] [place] [address] Nathalie Hsu MD [address] [place] [phone] Social History Tobacco Use Types Packs/Day Years [...] Upcoming Encounters Date Type Department Care Team ([facility] Contact Info) Description 12/20/2024 2:00 PM EDT Office Visit [facility] MEDICINE [address] [place] [address], [place] [address] Nathalie Hsu MD 230 [place] [address] 01/01/2025 9:00 AM EDT Office Visit [facility] OPTOMETRY [address] [place] [address] Seth, Zabrina, OD 230 [place] [address] 01/08/2025 10:00 AM EDT Office Visit [facility] ADULT DENTAL [address] [place] [address] Ulises, Chiquita [address] [place] [address] 02/16/2025 1:15 PM EST Office Visit [facility] MEDICINE [address] [place] [address] Renny Holloway MD [address] [place] [address] documented as of this encounter Procedures Procedure [...] documented as of this encounter Care Teams Variety Saw Operator Relationship Specialty Start Date End Date Nathalie Hsu MD [address] [place] [address] PCP - General Family Medicine 09/27/13 Shannan Barrow, KHAI [address] [place] [address] Registered Nurse 02/29/24 Lisbeth Johnson [address] [place] [address] Drive 3rd [place] [address] Gastroenterology 03/15/24 Tonya Poole Coiled Coil InspectorCrew Director 01/19/24 Sherin ([facility]) Registered Nurse 02/29/24 Marcos Verdin MD [place] [facility] [address] [place] [address] Cardiology 03/10/24 Omid Vincent Psychiatry 03/15/24 documented as of this encounter
--- OUTSIDE RECORDS SUMMARY | 2024-11-30 13:01 | XMS_ITS | Encounter Summary ---
Author Organization [employer] Address [address] [place] [address] [place], [place] [address] Care Team Providers Care Embedded Linux Developer Name Role Phone Nathalie Hsu MD Primary Care Provider Shannan Barrow RN Unavailable [phone] Lisbeth Johnson Unavailable Encounter Details Date Type Department Care Team (Late st Contact Info) Description 11/27/2022 Orders Only [facility] MEDICINE [address] [place] [address] Jose Dockery [address] [place] [address] Social History Tobacco Use Types Packs/Day Years [...] Description 12/20/2024 2:00 PM EDT Office Visit [facility] MEDICINE [address] [place] [address] Nathalie Hsu MD [address] [place], [place] [phone] 01/01/2025 9:00 AM EDT Office Visit [facility] OPTOMETRY [address] [place] [address] Zabrina Ann OD 230 [place] [address] 01/08/2025 10:00 AM EDT Office Visit [facility] ADULT DENTAL 230 [place] [address] Ulises, Chiquita 230 [place] [address] 02/16/2025 1:15 PM EST Office Visit [facility] MEDICINE [address] [place] [address] Renny Holloway MD [address] [place] [address] documented as of this encounter Visit Diagnoses Not on filedocumented in this encounter Additional Health Concerns Assessment Noted Time PHQ-9 Depression Total Score: 6 05/08/19 23 10:33 AM EST documented as of this encounter Care Teams Embedded Linux Developer Relationship Specialty Start Date End Date Nathalie Hsu MD [address] [place] [address] PCP - General Family Medicine 09/27/13 Shannan Barrow, RN [address] [place] [address] Registered Nurse 02/29/24 Lisbeth Johnson [address] [place] [address] Drive 3rd [place] [address] Gastroenterology 03/15/24 Tonya Poole Java Core DeveloperAutomation Software Engineer 01/19/24 Sherin ([facility]) Registered Nurse 02/29/24 Marcos Verdin MD [place] [facility] [address] [place] [address] Cardiology 03/10/24 Omid Vincent Psychiatry 03/15/24 documented as of this encounter
--- OUTSIDE RECORDS SUMMARY | 2024-11-30 13:01 | XMS_ITS | Encounter Summary ---
Author Organization [id number] Address [address] [facility] 7[address] [place] [address] Care Team Providers Care Display Fabrication Supervisor Name Role Phone Nathalie Hsu MD Primary Care Provider [phone] Shannan Barrow RN Unavailable [phone] Lisbeth Johnson Unavailable Reason for Visit * Reason Comments Med Refill Encounter Details Date Type Department Care Team (Late st Contact Info) Description 02/28/2023 Refill [facility] [address] [place], [place] [phone] Nathalie Hsu MD [address] [place], [place] [phone] Social History Tobacco Use Types Packs/Day Years [...] 2:00 PM EDT Office Visit [facility] [address] [place] [address] Nathalie Hsu MD [address] [place] [address] 01/01/2025 9:00 AM EDT Office Visit [facility] OPTOMETRY [address] [place] [address] Seth, Zabrina, OD [address] [place] [address] 01/08/2025 10:00 AM EDT Office Visit [facility] ADULT DENTAL [address] [place] [address] Ulises, Chiquita [address] [place] [address] 02/16/2025 1:15 PM EST Office Visit [facility] [address] [place] [address] Renny Holloway MD [address] [place] [address] documented as of this encounter Visit Diagnoses Not on filedocumented in this encounter Additional Health Concerns Assessment Noted Time PHQ-9 Depression Total Score: 6 05/08/19 23 10:33 AM EST documented as of this encounter Care Teams Display Fabrication Supervisor Relationship Specialty Start Date End Date Nathalie Hsu MD [address] [place] [address] PCP - General Family Medicine 09/27/13 Shannan Barrow, RN [address] [place] [address] Registered Nurse 02/29/24 Lisbeth Johnson [address]rd [place] [address] Gastroenterology 03/15/24 Tonya Poole Power [employer] Plant OperatorSkelp Processor 01/19/24 Sherin ([facility]) Registered Nurse 02/29/24 Marcos Verdin MD [place] [facility] [address] [place] [address] Cardiology 03/10/24 Omid Vincent Psychiatry 03/15/24 documented as of this encounter
== END 2024-11-30 11:57 | disposition home or self-care (01) ==
LOC: HO.US 11:56
PROVIDERS: PCP Family Medicine; Visit Provider Internal Medicine
DX: K70.9 Alcoholic liver disease, unspecified (principal)
CPT/HCPCS: 76700

== ENCOUNTER → 2024-11-30 12:00 | Outpatient (BNV) | payer MEDICAID, SELFPAY | PROVIDERS: PCP Family Medicine; Visit Provider Radiology Diagnostic Radiology | DX: K70.9 Alcoholic liver disease, unspecified (principal); K76.0 Fatty (change of) liver, not elsewhere classified; N28.1 Cyst of kidney, acquired | CPT/HCPCS: 76700 ==

== ENCOUNTER 2024-12-14 11:39 | Emergency (ER) | payer MEDICAID, SELFPAY ==
--- NOTE | ~2024-12-14 | CT_ITS ---
CLINICAL HISTORY: diverticulitis?? CT abdomen and pelvis with contrast Comparison: CT - CT ABDOMEN PELVIS W IV CON - 12/14/24 20:56 EDT Findings: Motion and streak artifact limit evaluation. Diffuse esophageal mural thickening, nonspecific. Small hiatal hernia. Atelectasis. Ill-defined tree-in-bud nodular consolidations in the lower lobes. Cardiomegaly without significant pericardial effusion. Coronary artery calcifications. Cardiac pacing leads. Diffuse atheromatous plaque disease throughout the aorta and branch vessels, without aneurysmal dilatation. High-grade stenoses origins of the celiac artery, SMA and right renal artery. Hepatomegaly. No hydronephrosis. Left renal vascular calcifications redemonstrated. No obvious renal calculi. Indeterminate 1 cm lesion right lower pole kidney. Finding is similar to prior. If clinical concern persists consider follow-up MRI. Fluid-filled bowel. Air-fluid level in the rectum with mural thickening, submucosal edema and mucosal hyperemia, extending along the distal sigmoid colon which is decompressed. Colonic diverticulosis without focal diverticulitis Fat containing inguinal hernias. Appendix not visualized. Osteopenia with diffuse multilevel spondylosis. Chronic appearing multilevel thoracolumbar vertebral body height loss with Schmorl's nodes. IMPRESSION: 1. Ill-defined tree-in-bud nodular consolidations in the lower lobes. Aspiration or developing pneumonia considered. Clinical correlation with follow-up advised. 2. Findings concerning for proctocolitis. 3. Additional findings as described. This document has been electronically signed by: Lenny Cee MD on 12/14/2024 22:54:11
[2024-12-14 12:04] VITALS: BP 128/76; PULSE 94; RESP 16; TEMP 36.4; O2SAT 95; BMI 32.7
--- NOTE | 2024-12-14 12:09 | ED.GENADULT ---
HPI - General Adult General Chief complaint: General Medical Stated complaint: pace maker issues, vomiting, in pain Time Seen by Provider: 12/14/24 20:00 Source: patient Limitations: language barrier History of Present Illness ED Provider: Sandie Sarah PA-C HPI narrative: 64-year-old male with a history of alcohol use disorder, prior GI bleed, anemia, decompensated cirrhosis, hypertension, hyperlipidemia, known CAD, cocaine abuse, HTN, systolic heart failure with the EF of 45-50% on echo April of 2024, s/p pacemaker on warfarin, presents with the abdominal pain x1 week. Pain is diffuse, primarily across lower abdomen, unable to describe the nature of his discomfort. Associated nausea vomiting diarrhea. Denies recent travel, hospitalization, use of antibiotics. No sick contacts with known symptoms. No fevers. Patient states he last consumed alcohol a week ago. Related Data Home Medications ?Medication ?Instructions ?Recorded ?Confirmed melatonin 5 mg tablet 2 tab PO BEDTIME PRN insomnia 10/18/20 01/23/24 atorvastatin 20 mg tablet 20 mg PO DAILY 11/18/20 01/23/24 blood pressure test kit-large #1 ea 11/18/20 02/09/23 lidocaine 5 % topical patch 1 patch topical DAILY 11/18/20 01/23/24 magnesium oxide 400 mg (241.3 mg 400 mg PO BID 11/18/20 01/23/24 magnesium) tablet pantoprazole 40 mg tablet,delayed 40 mg PO BID 11/18/20 01/23/24 release thiamine HCl (vitamin B1) 100 mg 100 mg PO DAILY 11/18/20 01/23/24 tablet olanzapine 5 mg tablet 1 tab PO BEDTIME 10/10/21 01/23/24 acetaminophen 500 mg tablet 500 mg PO BID PRN Mild Pain (Scale 05/11/22 01/23/24 Score 1-4) albuterol sulfate 90 mcg/actuation 2 puff inhalation Q4H PRN 05/11/22 01/23/24 aerosol inhaler (Ventolin HFA) Respiratory Distress buspirone 10 mg tablet 10 mg PO TID 05/11/22 01/23/24 sacubitril 24 mg-valsartan 26 mg 1 tab PO BID 06/12/22 01/23/24 tablet (Entresto) budesonide-formoterol HFA 160 2 puff inhalation BID 02/09/23 01/23/24 mcg-4.5 mcg/actuation aerosol inhaler (Symbicort) clopidogrel 75 mg tablet 75 mg PO DAILY 05/17/23 01/23/24 acamprosate 333 mg tablet,delayed 666 mg PO BID 09/15/23 01/23/24 release hydroxyzine pamoate 50 mg capsule 100 mg PO BEDTIME PRN insomnia 01/23/24 01/23/24 warfarin 5 mg tablet 5 mg PO DAILY 01/23/24 01/23/24 lactulose 10 gram/15 mL oral 30 ml PO TID 04/28/24 solution warfarin 10 mg tablet 10 mg PO DAILY 07/07/24 ferrous sulfate 325 mg (65 mg 325 mg PO QAM 07/28/24 iron) tablet,delayed release metoprolol succinate 25 mg 25 mg PO QAM 07/28/24 tablet,extended release 24 hr nicotine 14 mg/24 hr daily 1 patch topical QA 07/28/24 transdermal patch quetiapine 50 mg tablet 50 mg PO DAILY PRN 07/28/24 Previous Rx's ?Medication ?Instructions ?Recorded furosemide 40 mg tablet 40 mg PO DAILY #30 tabs 05/29/23 oxycodone 5 mg tablet 5 mg PO Q6H PRN pain #10 tabs 08/18/24 rifaximin 550 mg tablet (Xifaxan) 550 mg PO BID #60 tabs 09/14/24 magnesium oxide 500 mg capsule 500 mg PO DAILY #30 caps 11/18/24 cefdinir 300 mg capsule 300 mg PO Q12H #20 caps 12/14/24 levofloxacin 750 mg tablet 750 mg PO DAILY #9 tabs 12/14/24 ondansetron 4 mg disintegrating 4 mg PO Q8H PRN nausea and 12/15/24 tablet vomiting #14 tabs Allergies Allergy/AdvReac Type Severity Reaction Status Date / Time lorazepam (From ATIVAN) AdvReac Severe OPPOSITE Verified 12/15/24 12:24 EFFECT PSYCOTIC EFECTS Review of Systems Review of Systems: Yes all other systems are reviewed and are negative Constitutional: Constitutional: Denies fatigue and Denies fever(s) Cardiovascular: Cardiovascular: Denies chest pain and Denies dyspnea Respiratory: Respiratory: Denies cough and Denies dyspnea Gastrointestinal: Gastrointestinal: Reports abdominal pain, Denies melena, Denies hematochezia, Reports diarrhea, Reports nausea and Reports vomiting Musculoskeletal: Musculoskeletal: Denies back pain Endocrine: Endocrine: Denies fatigue PMFSH Past Medical History Attestation statement: The following information was validated with the patient. Medical History Sepsis Rhabdomyolysis EDGAR (acute kidney injury) Supratherapeutic INR Fall Acute hyponatremia Intracranial hemorrhage Coronary artery disease Chronic systolic CHF (congestive heart failure) Hypertension Short-segment Harrell's esophagus Pacemaker Skull fracture Alcoholic liver disease Cocaine abuse Alcohol abuse Surgical History Aortic valve replaced S/P CABG (coronary artery bypass graft) H/O aortic valve replacement History of esophagogastroduodenoscopy (EGD) Social History Social History Household Members: None Housing: Apartment Do you presently have visiting nurse or other home services: Yes (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) Alcohol intake: current Alcohol intake frequency: a few times a week Alcohol type: beer Comment: pt refused, to have assistance with ambulation, chair and bed alarm Patient Tobacco Use Status: Current everyday Tobacco user Tobacco use type: Cigarette Cigarette Packs Per Day: 1 Cigarettes Per Day: 20.0 Second Hand Smoke Exposure: No Substance Use Type: Marijuana Advance Directives: Yes Advance Directives on File: Yes Advance Directives Date on File: 10/11/21 Do you have a plan to hurt others: No Plan service: No Current occupational status: unemployed Physical Exam ED Vital Signs: Vital Signs - 24 hr 12/14/24 12:04 12/14/24 19:50 Temperature 97.5 F 98.3 F Pulse Rate 94 91 Respiratory Rate 16 20 Blood Pressure 128/76 108/88 Pulse Oximetry 95 96 Oxygen Delivery Method Room Air Room Air BMI result Body Mass Index 32.7 Const Other: Alert well-appearing Orientation/consciousness: patient oriented x3 Resp Effort & Inspection: normal respiratory effort Cardio Other: Normal peripheral perfusion GI Other: Abdomen is soft, nondistended, mild to moderate tenderness across entire lower abdomen, left greater than right no objective guarding Skin Other: Warm dry no rash Neuro General: patient oriented x3, gait normal, no focal motor deficits and CN's II-XI intact bilaterally Psych Other: Cooperative Course Course Course Narrative: This is a Rapid Medical Examination (RME) performed by Mateus Graham PA-C in triage. Full HPI, ROS, assessment and treatment plan per primary provider in the Main ED. Hx: 64 yo M hx of alcohol abuse, GI Bleed, anemia, decompensated cirrhosis, CAD, cocaine abuse, HTN, CHF, s/p pacemaker here for eval of weakness, nausea, vomiting, diarrhea. states my blood is too high - cannot elaborate. no blood in vomit. reports assoc chest pain and abdominal pain he attributes to throwing up. last consumed etoh 7 days ago. Plan: labs, ekg Reevaluation(s) Reevaluation #1: I discussed findings with the patient, that it appears he may have aspiration pneumonia, and evidence of proctocolitis on CT scan. I asked the patient if he is having rectal pain he denies. I have explained to the patient we should get a formal chest x-ray to better differentiate the findings captured on the CT abdomen and pelvis, he declines. Given 2 concurrent points of infection, I offered hospital admission, the patient wants to be discharged home. He is willing to stay for a dose of IV antibiotic. Medications Administered Discontinued Medications Generic Name Dose Route Start Last Admin Trade Name Freq PRN Reason Stop Dose Admin Acetaminophen 650 mg 12/14/24 17:53 12/14/24 17:55 Acetaminophen 325 Mg Tablet PO 12/14/24 17:54 650 mg ONCE ONE Administration Ceftriaxone Sodium 2 gm 12/14/24 23:20 12/14/24 23:27 Ceftriaxone Sodium 2 Gm Vial IVPUSH 12/14/24 23:21 2 gm ONCE ONE Administration Sodium Chloride 500 mls @ 500 mls/hr 12/14/24 20:06 12/14/24 21:34 Ns IV 12/14/24 21:05 Infused .Q1H ONE Infusion Iohexol 85 ml 12/14/24 21:20 12/14/24 21:21 Iohexol 350 Mg/Ml 100 Ml Infus..Btl IV 12/14/24 21:21 85 ml ONCE ONE Administration Levofloxacin 750 mg 12/14/24 23:20 12/14/24 23:27 Levofloxacin 750 Mg Tablet PO 12/14/24 23:21 750 mg ONCE ONE Administration Morphine Sulfate 4 mg 12/14/24 20:06 12/14/24 20:33 Morphine Sulfate 4 Mg/Ml Cartridge IVPUSH 12/14/24 20:07 4 mg ONCE ONE Administration Protocol Ondansetron HCl 4 mg 12/14/24 20:06 12/14/24 20:33 Ondansetron Hcl 4 Mg/2 Ml Vial IVPUSH 12/14/24 20:07 4 mg ONCE ONE Administration Medical Decision Making Medical Decision Making MDM Narrative: 64-year-old male with a history of alcohol use disorder, prior GI bleed, anemia, decompensated cirrhosis, hypertension, hyperlipidemia, known CAD, cocaine abuse, HTN, systolic heart failure with the EF of 45-50% on echo April of 2024, s/p pacemaker on warfarin, presents with the abdominal pain x1 week. Pain is diffuse, primarily across lower abdomen, unable to describe the nature of his discomfort. Associated nausea vomiting diarrhea. Denies recent travel, hospitalization, use of antibiotics. No sick contacts with known symptoms. No fevers. Patient states he last consumed alcohol a week ago. Problem: Age, alcohol use disorder, prior GI bleed, cirrhosis, cocaine abuse, cardiac history History: Per patient I have considered the following differential diagnoses: Diverticulitis, colitis, lower GI bleed, upper GI bleed, SBP, traveler's diarrhea, C diff , viral gastroenteritis Plan: Patient is stable, his abdominal exam is overall benign, I am getting some degree of focal left lower quadrant discomfort, given distribution we will obtain a CT scan rule out diverticulitis. He is not having evidence of either upper or lower GI bleeding. His abdomen is not grossly distended to suggest ascites and potential SBP. He has no risk factors for traveler's diarrhea or C diff. he has no sick contacts with similar symptoms, he was screened for COVID was negative. I have independently reviewed the following tests: Labs: No leukocytosis, stable anemia, no electrolyte abnormality, slight bump in creatinine at 1.43, troponin 5.2, delta troponin 4.6, drug screen negative, ethanol less than 10, COVID negative CT abdomen and pelvis:IMPRESSION: 1. Ill-defined tree-in-bud nodular consolidations in the lower lobes. Aspiration or developing pneumonia considered. Clinical correlation with follow-up advised. 2. Findings concerning for proctocolitis. 3. Additional findings as described. Lab Data 12/14/24 12:27 12/14/24 12:27 Labs: Lab Results 12/14/24 12/14/24 12/14/24 Range/Units 12:27 17:26 20:35 WBC 8.5 (4.8-10.8) X10*3/uL RBC 4.44 L (4.60-5.80) X10*6/uL Hgb 14.7 (14.0-18.0) g/dl Hct 42.6 (42.0-52.0) % MCV 95.9 (80.0-98.0) fL MCH 33.1 H (27.0-33.0) pg MCHC 34.5 (31.0-36.0) g/dl RDW 14.9 (11.0-16.0) % Plt Count 221 (160-400) X10*3/uL MPV 9.2 L (9.4-12.4) fL Immature Gran % (Auto) 0.8 H (0.0-0.4) % Neut % (Auto) 70.2 (45-73) % Lymph % (Auto) 18.4 L (20-40) % Surry % (Auto) 8.1 (2-11) % Eos % (Auto) 1.9 (0-4) % Baso % (Auto) 0.6 (0-2) % Lymph # (Auto) 1.6 (1.2-4.9) X10*3/uL Surry # (Auto) 0.7 (0.1-1.2) X10*3/uL Eos # (Auto) 0.2 (0.0-0.4) X10*3/uL Baso # (Auto) 0.1 (0.0-0.2) X10*3/uL Abs Immat Gran (auto) 0.07 H (0.00-0.03) X10*3/uL Absolute Neuts (auto) 6.0 (2.0-8.3) x10*3/uL Absolute Nucleated RBC 0.000 (0.0-0.012) X10*3/uL Nucleated RBC % (auto) 0.0 (0.0-0.2) /100WBC Sodium 136 (135-145) mmol/L Potassium 4.2 (3.3-5.1) mmol/L Chloride 110 H (96-108) mmol/L Carbon Dioxide 18 L (22-29) mmol/L Anion Gap 12 (12-20) BUN 24 H (9-16) mg/dL Creatinine 1.43 H (0.5-1.4) mg/dL Estim Creat Clear Calc 59.8 Estimated GFR 50 Random Glucose 107 (60-115) mg/dL Calcium 9.1 (8.4-10.2) mg/dL Magnesium 1.7 (1.6-2.6) mg/dL Total Bilirubin 0.6 (0.0-1.0) mg/dL AST 29 (5-37) U/L ALT 21 (0-40) U/L Alkaline Phosphatase 116 (39-117) U/L Troponin I High Sens 5.2 D 4.6 (<3.5-35.0) ng/L Total Protein 8.0 (6.5-8.0) g/dL Albumin 4.1 (3.5-5.0) g/dL Lipase 15 (8-78) U/L Urine Opiates Screen Not Detected (Not Detect) Ur Buprenorphine Scrn Not Detected (Not Detect) ng/mL Ur Oxycodone Screen Not Detected (Not Detect) ng/mL Urine Methadone Screen Not Detected (Not Detect) ng/mL Urine Fentanyl Screen Not Detected (Not Detect) Ur Barbiturates Screen Not Detected (Not Detect) Ur Phencyclidine Scrn Not Detected (Not Detect) Ur Amphetamines Screen Not Detected (Not Detect) U Benzodiazepines Scrn Not Detected (Not Detect) Urine Cocaine Screen Not Detected (Not Detect) U Marijuana (THC) Screen Not Detected (Not Detect) Ethyl Alcohol < 10 mg/dL COVID-19 (VICTOR M) Negative (Negative) COVID-19 Clin Com See Note Discharge Plan Discharge Clinical Impression: Proctocolitis, Aspiration pneumonia Patient Disposition: Home, Self-Care Instructions: Aspiration Pneumonia (DC), Colitis (ED) Additional Instructions: You were found to have suspect infection in your lungs and in your colon. You were offered hospital admission you declined. Take both antibiotics as directed, make sure to complete the course of each antibiotic. You need to follow up with your primary care provider within a week for a reassessment. Return precautions for the onset of severe worsening abdominal pain, fever, intractable vomiting, shortness of breath or chest pain. Prescriptions: New cefdinir 300 mg capsule 300 mg PO Q12H Qty: 20 0RF levofloxacin 750 mg tablet 750 mg PO DAILY Qty: 9 0RF No Action Xifaxan 550 mg tablet 550 mg PO BID Qty: 60 3RF melatonin 5 mg tablet 2 tab PO BEDTIME PRN (Reason: insomnia) olanzapine 5 mg tablet 1 tab PO BEDTIME acetaminophen 500 mg Tablet 500 mg PO BID PRN (Reason: Mild Pain (Scale Score 1-4)) buspirone 10 mg Tablet 10 mg PO TID albuterol sulfate [Ventolin HFA] 90 mcg/actuation Hfa Aerosol Inhaler 2 puff INHALATION Q4H PRN (Reason: Respiratory Distress) acamprosate 333 mg tablet,delayed release (DR/EC) 666 mg PO BID hydroxyzine pamoate 50 mg capsule 100 mg PO BEDTIME PRN (Reason: insomnia) warfarin 5 mg tablet 5 mg PO DAILY magnesium oxide 500 mg capsule 500 mg PO DAILY Qty: 30 0RF ondansetron 4 mg tablet,disintegrating 4 mg PO Q8H PRN (Reason: nausea and vomiting) Qty: 14 0RF budesonide-formoterol [Symbicort] 160-4.5 mcg/actuation HFA aerosol inhaler 2 puff inhalation BID clopidogrel 75 mg tablet 75 mg PO DAILY furosemide 40 mg Tablet 40 mg PO DAILY Qty: 30 0RF Protocol: Hold for SBP< HOLD for SBP < : 90 oxycodone 5 mg tablet 5 mg PO Q6H PRN (Reason: pain) Qty: 10 0RF Rx Instructions: Partial Fill upon patient request. pantoprazole 40 mg tablet,delayed release (DR/EC) 40 mg PO BID magnesium oxide 400 mg (241.3 mg magnesium) tablet 400 mg PO BID thiamine HCl (vitamin B1) 100 mg tablet 100 mg PO DAILY atorvastatin 20 mg tablet 20 mg PO DAILY (DME) blood pressure test kit-large Kit See Rx Instructions .ROUTE DIRECTED Qty: 1 Rx Instructions: As directed lidocaine 5 % adhesive patch,medicated 1 patch topical DAILY Protocol: Apply to: Apply to: AFFECTED AREA Entresto 24-26 mg tablet 1 tab PO BID lactulose 10 gram/15 mL solution 30 ml PO TID quetiapine 50 mg tablet 50 mg PO DAILY PRN nicotine 14 mg/24 hr patch 24 hour 1 patch topical QAM metoprolol succinate 25 mg tablet extended release 24 hr 25 mg PO QAM ferrous sulfate 325 mg (65 mg iron) tablet,delayed release (DR/EC) 325 mg PO QAM warfarin 10 mg tablet 10 mg PO DAILY Interventions: ED Discharge Assessment Last Done: 12/15/24 00:26 Discharge Date/Time: 12/15/24 00:27 Print Language: Tajik
--- NOTE | 2024-12-14 12:12 | ECG_ITS ---
Test Reason : CP Blood Pressure : */* mmHG Vent. Rate : 87 BPM Atrial Rate : 87 BPM P-R Int : 146 ms QRS Dur : 186 ms QT Int : 436 ms P-R-T Axes : -26 43 179 degrees QTcB Int : 524 ms Atrial-sensed ventricular-paced rhythm Abnormal ECG When compared with ECG of 18-Nov-2024 06:59, Vent. rate has increased by 5 bpm Referred By: Bozena Graham Electronically Signed By: EMILIE LEVY MD
[2024-12-14 12:30] LABS: MANUAL DIFF FLAG NO
[2024-12-14 12:36] LABS: Hematocrit 42.6 % (42.0-52.0); Hemoglobin 14.7 g/dl (14.0-18.0); Imm Gran Abs Auto 0.07 X10*3/uL (0.00-0.03); Imm Gran Pct Auto 0.8 % (0.0-0.4); Lymphocytes Absolute Auto 1.6 X10*3/uL (1.2-4.9); Mean Corpuscular HGB Conc 34.5 g/dl (31.0-36.0); Mean Corpuscular Hemoglobin 33.1 pg (27.0-33.0); Mean Corpuscular Volume 95.9 fL (80.0-98.0); NRBC Abs Auto 0.000 X10*3/uL (0.0-0.012); NRBC Pct Auto 0.0 /100WBC (0.0-0.2); Platelet Count 221 X10*3/uL (160-400); Red Blood Count 4.44 X10*6/uL (4.60-5.80); White Blood Count 8.5 X10*3/uL (4.8-10.8)
[2024-12-14 12:47] LABS: Alanine Aminotransferase 21 U/L (0-40); Albumin Level 4.1 g/dL (3.5-5.0); Alkaline Phosphatase 116 U/L (39-117); Anion Gap 12 (12-20); Aspartate Amino Transferase 29 U/L (5-37); Blood Urea Nitrogen 24 mg/dL (9-16); Calcium 9.1 mg/dL (8.4-10.2); Carbon Dioxide 18 mmol/L (22-29); Chloride 110 mmol/L (96-108); Creatinine Clr Calc Pharmacy 59.8; Estimated Glomerular Filt Rate 50; Lipase 15 U/L (8-78); Magnesium 1.7 mg/dL (1.6-2.6); Potassium 4.2 mmol/L (3.3-5.1); Sodium 136 mmol/L (135-145); Total Protein 8.0 g/dL (6.5-8.0)
[2024-12-14 12:53] LABS: Troponin-I High Sensitivity 5.2 ng/L (<3.5-35.0)
[2024-12-14 17:53] LABS: Troponin-I High Sensitivity 4.6 ng/L (<3.5-35.0)
[2024-12-14 19:50] VITALS: BP 108/88; PULSE 91; RESP 20; TEMP 36.8; O2SAT 96
--- OUTSIDE RECORDS SUMMARY | 2024-12-14 20:27 | XMS_ITS | Encounter Summary ---
Author Organization [employer] Address [address] [facility] [address] [place] [address] Care Team Providers Care Director Rehabilitation Program Name Role Phone Nathalie Hsu MD Primary Care Provider [phone] Shannan Barrow RN Unavailable [phone] Lisbeth Johnson Unavailable Reason for Visit * Reason Comments Med Refill Encounter Details Date Type Department Care Team (Late st Contact Info) Description 03/30/2024 Refill [facility] MEDICINE [address] [place] [address] Nathalie Hsu MD [address] [place] [address] History of alcohol abuse; Hypomagnesemia; Mild intermittent [...] [facility] MED[facility]INE [address] [place] [address] Nathalie Hsu MD [address] [place] [address] 01/01/2025 9:00 AM EDT Office Visit [facility] OPTOMETRY [address] [place] [address] Zabrina Ann OD [address] [place] [address] 01/08/2025 10:15 AM EDT Office Visit [facility] ADULT DENTAL [address] [place] [address] Chiquita Montgomery [address] [place] [address] 02/16/2025 1:15 PM EST Office Visit [facility] MEDICINE [address] [place] [address] Renny Holloway MD [address] [place] [address] documented as of this encounter Visit Diagnoses Diagnosis History of alcohol abuse Nondependent alcohol abuse, in remission Hypomagnesemia Disorders of magnesium metabolism Mild intermittent asthma, unspecified whether complicated documented in this encounter Additional Health Concerns Assessment Noted Time PHQ-9 Depression Total Score: 0 06/09/19 24 9:13 AM EST documented as of this encounter Care Teams Director Rehabilitation Program Relationship Specialty Start Date End Date Nathalie Hsu MD [address] [place] [address] PCP - General Family Medicine 09/27/13 Shannan Barrow, KHAI [address] [place] [address] Registered Nurse 02/29/24 Lisbeth Johnson [address] [place] [address] 3rd [place] [address] Gastroenterology 03/15/24 Tonya Poole Wireless Team MemberPotato Inspector 01/19/24 Sherin ([facility]) Registered Nurse 02/29/24 Marcos Verdin MD [place] [facility] [address] [place] [address] Cardiology 03/10/24 Omid Vincent Psychiatry 03/15/24 documented as of this encounter
--- OUTSIDE RECORDS SUMMARY | 2024-12-14 20:27 | XMS_ITS | Encounter Summary ---
Author Organization [email or web address] Address [address] 7t [place] [address] Care Team Providers Care Beer Runner Name Role Phone Nathalie Hsu MD Primary Care Provider [phone] Shannan Barrow RN Unavailable [phone] Lisbeth Johnson Unavailable Reason for Visit * Reason Onset Date Comments Critical INR 12/12/2024 Encounter Details Date Type Department Care Team (Late st Contact Info) Description 12/12/2024 Telephone [facility] PEDIATRICS [address] [place] [address] Nathalie Hsu MD [address] [place] [address] Critical INR Social History Tobacco Use Types Packs/Day Years [...] Telephone Encounter - Shannan Barrow RN - 12/12/2024 1:53 PM EDT S: Pt is due for PT/INR yesterday due to hx of DVT's. Pt's target INR is 2.5- 3.5. This RN spoke with KAVIN Duff. Pt has been compliant with INR draws. Pt is a daily [facility]NA pt so she checks on him everyday. INR today is 6.6. Reports pt was drinking. She reports that she checked INR on Wednesday and it was 8.0. She advised pt to go to the ED but he refused and held his coumadin instead Wednesday and Wednesday. She denies any signs of bleeding: no bruising, black tarry stools, or visible bleeding. O: INR today: 6.6 Current orders: take 2.5mg , , / 5mg the rest of the week A: Hx of DVT Risk for blood clot due to sub therapeutic INR Hx of afib Hx of prosthetic heart valve P: Orders are to hold coumadin again today. Take 5mg tomorrow Wednesday and recheck INR 12/14/24. Pt's INR fluctuates frequently based on ETOH use. VNA goes to house daily and frequently checks INR in between ordered draws for pt safety. Please try to abstain from alcohol use. VNA aware of dosing and draw date. Shannan Barrow RN * Telephone Encounter - Ioana Loomis RN - 12/12/2024 12:44 PM EDT Incoming call from Sherin visiting nurse . Sherin reported the pt's INR today is 6.6 . Sherin stated the pt has been drinking . A warm hand off call was placed to Greta RIDLEY . Will route this message to the green team nurses ,and the pt's PCP for review . TY. documented in this encounter Plan of Treatment Upcoming Encounters Date Type Department Care Team (Late st Contact Info) Description 12/20/2024 2:00 PM EDT Office Visit [facility] MEDICINE [address] [place] [address] Nathalie Hsu MD [address] [place] [address] 01/01/2025 9:00 AM EDT Office Visit [facility] OPTOMETRY [address] [place] [address] Zabrina Ann, OD 230 [place] [address] 01/08/2025 10:15 AM EDT Office Visit [facility] ADULT DENTAL [address] [place] [address] Ulises Chiquita [address] [place] [address] 02/16/2025 1:15 PM EST Office Visit [facility] MEDICINE [address] [place] [address] Renny Holloway MD [address] [place] [address] documented as of this encounter Procedures Procedure Name Priority Date/Time Associated Diagnosis Comments PROTHROMBIN TIME-INR Routine 12/12/2024 documented in this encounter Results * (ABNORMAL) Prothrombin Time-INR (12/12/2024) INR 6.60(HC) 2.50 - 3.50 EXTERNAL LAB Protime EXTERNAL LAB Blood Venous blood specimen / Unknown Nathalie Hsu MD LAB BLOOD ORDERABLES Final Result EXTERNAL LAB documented in this encounter Visit Diagnoses Diagnosis History of prosthetic heart valve documented in this encounter Additional Health Concerns Assessment Noted Time PHQ-9 Depression Total Score: 0 09/21/19 25 3:24 PM EDT documented as of this encounter Care Teams Beer Runner Relationship Specialty Start Date End Date Nathalie Hsu MD [address] [place] [address] PCP - General Family Medicine 09/27/13 Shannan Barrow, RN [address] [place] [address] Registered Nurse 02/29/24 Lisbeth Johnson [address] [place] [address] Drive 3rd [place] [address] Gastroenterology 03/15/24 Tonya Poole Learning Services CoordinatorManager Strategic Marketing 01/19/24 Sherin ([facility]) Registered Nurse 02/29/24 Marcos Verdin MD [facility] [address] [place] [address] Cardiology 03/10/24 Omid Vincent Psychiatry 03/15/24 documented as of this encounter
--- OUTSIDE RECORDS SUMMARY | 2024-12-14 20:27 | XMS_ITS | Encounter Summary ---
Author Organization [employer] Address [address] 7t [place] [address] Care Team Providers Care Phys Ther Name Role Phone Nathalie Hsu MD Primary Care Provider [phone]- [phone] Shannan Barrow RN Unavailable [phone] Lisbeth Johnson Unavailable Reason for Visit * Reason Onset Date Comments PT-1 05/26/2024 Encounter Details Date Type Department Care Team (Late st Contact Info) Description 05/26/2024 Telephone [facility] MEDICINE [address] [place] [address] Nathalie Hsu MD 230 [place], [place] [phone] PT-1 Social History Tobacco Use Types Packs/Day [...] Y/N: Yes Provider name or facility name: [place] [address] Escort needed: Y/N: No Do you have a wheelchair: Y/N: No If yes- Manual or electric: N/A Visits: (amount of visits) ( x monthly, weekly, daily) 2 times per month. documented in this encounter Plan of Treatment Upcoming Encounters Date Type Department Care Team (Late st Contact Info) Description 12/20/2024 2:00 PM EDT Office Visit [facility] MEDICINE [address] [place] [address] Nathalie Hsu MD 230 [place] [address] 01/01/2025 9:00 AM EDT Office Visit [facility] OPTOMETRY [address] [place] [address] Zabrina Ann, OD 230 [place] [address] 01/08/2025 10:15 AM EDT Office Visit [facility] ADULT DENTAL [address] [place] [address] Ulises, Chiquita [address] [place] [address] 02/16/2025 1:15 PM EST Office Visit [facility] MEDICINE [address] [place] [address] Renny Holloway MD 230 [place] [address] documented as of this encounter Visit Diagnoses Not on filedocumented in this encounter Additional Health Concerns Assessment Noted Time PHQ-9 Depression Total Score: 0 06/09/19 9:13 AM EST documented as of this encounter Care Teams Phys Ther Relationship Specialty Start Date End Date Nathalie Hsu MD 230 [place] [address] PCP - General Family Medicine 09/27/13 Shannan Barrow, KHAI [address] [place] [address] Registered Nurse 02/29/[address] 3rd [place] [address] Gastroenterology 03/15/24 Tonya Poole Senior Visual DesignerPicker Packer 01/19/24 Sherin ([facility]) Registered Nurse 02/29/24 Marcos Verdin MD [facility] [address] [place] [address] Cardiology 03/10/24 Omid Vincent Psychiatry 03/15/24 documented as of this encounter
--- OUTSIDE RECORDS SUMMARY | 2024-12-14 20:27 | XMS_ITS | Encounter Summary ---
Author Organization [employer] Address [address] 7t [place] [address] Care Team Providers Care Email Marketing Manager Name Role Phone SumterNathalie segovia MD Primary Care Provider [phone] Shannan Barrow RN Unavailable [phone] Lisbeth Johnson Unavailable Encounter Details Date Type Department Care Team (Late st Contact Info) Description 12/13/2024 Telephone [facility] ADULT DENTAL [address] [place] [address] Ulises, Chiquita [address] [place] [address] Social History Tobacco Use Types Packs/Day Years [...] encounter Miscellaneous Notes * Telephone Encounter - Rula Castaneda - 12/13/2024 9:09 AM EDT Lm with new appt time. And if time did not work to call the office back. documented in this encounter Plan of Treatment Upcoming Encounters Date Type Department Care Team (Late st Contact Info) Description 12/20/2024 2:00 PM EDT Office Visit [facility] MEDICINE [address] [place] [address] Nathalie Hsu MD [address] [place] [address] 01/01/2025 9:00 AM EDT Office Visit [facility] OPTOMETRY [address] [place] [address] Zabrina Ann, OD 230 [place] [address] 01/08/2025 10:15 AM EDT Office Visit [facility] ADULT DENTAL [address] [place] [address] Adalberto Montgomeryaris 230 [place] [address] 02/16/2025 1:15 PM EST Office Visit [facility] MEDICINE [address] [place] [address] Renny Holloway MD 230 [place] [address] documented as of this encounter Visit Diagnoses Not on filedocumented in this encounter Additional Health Concerns Assessment Noted Time PHQ-9 Depression Total Score: 0 09/21/19 25 3:24 PM EDT documented as of this encounter Care Teams Email Marketing Manager Relationship Specialty Start Date End Date Nathalie Hsu MD [address] [place] [address] PCP - General Family Medicine 09/27/13 Shannan Barrow, KHAI [address] [place] [address] Registered Nurse 02/29/24 Lisbeth Johnson [address] [place] [address] [address] [place] [address] Gastroenterology 03/15/24 Tonya Poole Die FitterForm Builder 01/19/24 Sherin (A [facility]) Registered Nurse 02/29/24 Marcos Verdin MD [facility] [address] [place] [address] Cardiology 03/10/24 Omid Vincent Psychiatry 03/15/24 documented as of this encounter
--- OUTSIDE RECORDS SUMMARY | 2024-12-14 20:27 | XMS_ITS | Encounter Summary ---
Author Organization [employer] Address [address] 7t [place] [address] Care Team Providers Care Group Fitness Instructor Name Role Phone [place], Nathalie ABDI Primary Care Provider [phone] Shannan Barrow RN Unavailable [phone] Lisbeth Johnson Unavailable Reason for Visit * Reason Onset Date Comments Dr. Lamas medication 06/20/2024 Encounter Details Date Type Department Care Team (Late st Contact Info) Description 06/20/2024 Telephone [facility] ADULT DENTAL [address] [place], [place] [phone] Panchito Lamas DDS [address] [place], [place] [phone] Dr. Lamas medication Social History Tobacco Use [...] [facility] MEDICINE [address] [place] [address] Nathalie Hsu MD [address] [place] [address] 01/01/2025 9:00 AM EDT Office Visit [facility] OPTOMETRY [address] [place] [address] Seth, Zabrina, OD 230 [place] [address] 01/08/2025 10:15 AM EDT Office Visit [facility] ADULT DENTAL [address] [place] [address] Ulises, Chiquita [address] [place] [address] 02/16/2025 1:15 PM EST Office Visit [facility] MEDICINE [address] [place] [address] Renny Holloway MD [address] [place] [address] documented as of this encounter Visit Diagnoses Not on filedocumented in this encounter Additional Health Concerns Assessment Noted Time PHQ-9 Depression Total Score: 0 06/09/19 24 9:13 AM EST documented as of this encounter Care Teams Group Fitness Instructor Relationship Specialty Start Date End Date Nathalie Hsu MD [address] [place] [address] PCP - General Family Medicine 09/27/13 Shannan Barrow, KHAI [address] [place] [address] Registered Nurse 02/29/24 Lisbeth Johnson [address] [place] [address] Drive 3rd [place] [address] Gastroenterology 03/15/24 Tonya Poole Aircraft Cabin CleanerSemi Truck Driver 01/19/24 Sherin ([facility]) Registered Nurse 02/29/24 Marcos Verdin MD [place] [facility] [address] [place] [address] Cardiology 03/10/24 Omid Vincent Psychiatry 03/15/24 documented as of this encounter
--- OUTSIDE RECORDS SUMMARY | 2024-12-14 20:27 | XMS_ITS | Encounter Summary ---
Author Organization [employer] Address [address] [facility] 7t [place] [address] Care Team Providers Care Geography Department Chair Name Role Phone Nathalie Hsu MD Primary Care Provider [phone] Shannan Barrow RN Unavailable [phone] Lisbeth Johnson Unavailable Reason for Visit * Reason Onset Date Comments Hospital Follow-up 03/07/2024 Medication Question 03/07/2024 Encounter Details Date Type Department Care Team (Late st Contact Info) Description 03/07/2024 Telephone [facility] MEDICINE [address] [place], [place] [phone] Nathalie Hsu MD [address] [place] [address] Hospital Follow-up; Medication Question Social History Tobacco [...] stating wrong number and he doesn't speak albanian (was not the pt). Telephone call placed [...] EST Tc from [facility] Dural Mechanic requesting a HDF appt. Pt is concerned about medication melatonin 5 MG tablet he still has trouble sleeping and doesn't want to stop taking. Hospital: [facility] Date of admission: 02/11 Discharge date: 03/01 Diagnosed: Liver Issues Contact pt to schedule at [phone] *Send message to [place] Clinical Care Coordinators documented in this encounter Plan of Treatment Upcoming Encounters Date Type Department Care Team (Late st Contact Info) Description 12/20/2024 2:00 PM EDT Office Visit [facility] MEDICINE [address] [place] [address] Nathalie Hsu MD 230 [place] [address] 01/01/2025 9:00 AM EDT Office Visit [facility] OPTOMETRY [address] [place] [address] Zabrina Ann, OD 230 [place] [address] 01/08/2025 10:15 AM EDT Office Visit [facility] ADULT DENTAL [address] [place] [address] Adalberto Montgomeryaris [address] [place] [address] 02/16/2025 1:15 PM EST Office Visit [facility] MEDICINE [address] [place] [address] Renny Holloway MD 230 [place] [address] documented as of this encounter Visit Diagnoses Not on filedocumented in this encounter Additional Health Concerns Assessment Noted Time PHQ-9 Depression Total Score: 0 06/09/19 24 9:13 AM EST documented as of this encounter Care Teams Geography Department Chair Relationship Specialty Start Date End Date Nathalie Hsu MD [address] [place] [address] PCP - General Family Medicine 09/27/13 Shannan Barrow, RN [address] [place] [address] Registered Nurse 02/29/24 Lisbeth Johnson [address] [place] [address] 3rd [place] [address] Gastroenterology 03/15/24 Tonya Poole Research Development ManagerSenior Materials Scientist 01/19/24 Sherin (A S) Registered Nurse 02/29/24 Marcos Verdin MD [place] [facility] [address] [place] [address] Cardiology 03/10/24 Omid Vincent Psychiatry 03/15/24 documented as of this encounter
--- OUTSIDE RECORDS SUMMARY | 2024-12-14 20:27 | XMS_ITS | Encounter Summary ---
Author Organization [employer] Address [address] 7t [place] [address] Care Team Providers Care Museum Tour Guide Name Role Phone [place], Nathalie ABDI Primary Care Provider [phone] Shannan Barrow RN Unavailable [phone] Lisbeth Johnson Unavailable Reason for Visit * Reason Comments Med Refill Encounter Details Date Type Department Care Team (Late st Contact Info) Description 07/04/2024 Refill [facility] ADULT DENTAL 230 [place] [address] Panchito Lamas DDS [address] [place] [address] Severe dental caries; Dental root caries; Advanced [...] Description 12/20/2024 2:00 PM EDT Office Visit [facility] MEDICINE 230 [place] [address] Nathalie Hsu MD 230 [place] [address] 01/01/2025 9:00 AM EDT Office Visit [facility] OPTOMETRY [address] [place] [address] Zabrina Ann OD 230 [place] [address] 01/08/2025 10:15 AM EDT Office Visit [facility] ADULT DENTAL 230 [place] [address] Chiquita Montgomery [address] [place] [address] 02/16/2025 1:15 PM EST Office Visit [facility] MEDICINE [address] [place] [address] Renny Holloway MD [address] [place] [address] documented as of this encounter Visit Diagnoses Diagnosis Severe dental caries Dental root caries Advanced periodontitis Excessive attrition of teeth, limited to enamel Missing teeth, acquired Dental calculus Accretions on teeth documented in this encounter Additional Health Concerns Assessment Noted Time PHQ-9 Depression Total Score: 0 06/09/19 9:13 AM EST documented as of this encounter Care Teams Museum Tour Guide Relationship Specialty Start Date End Date Nathalie Hsu MD [address] [place] [address] PCP - General Family Medicine 09/27/13 Shannan Barrow, KHAI [address] [place] [address] Registered Nurse 02/29/24 Lisbeth Johnson [address] [place] [address] 3[address] [place] [address] Gastroenterology 03/15/24 Tonya Poole Batch MakerBody Hanger 01/19/24 Sherin (A [facility]) Registered Nurse 02/29/24 Marcos Verdin MD [place] [facility] [address] [place] [address] Cardiology 03/10/24 Omid Vincent Psychiatry 03/15/24 documented as of this encounter
--- OUTSIDE RECORDS SUMMARY | 2024-12-14 20:27 | XMS_ITS | Encounter Summary ---
Author Organization [employer] Address [address] [facility] 7t [place] [address] Care Team Providers Care Distribution Lineman Name Role Phone SterlingNathalie segovia MD Primary Care Provider [phone]- [phone] Shannan Barrow RN Unavailable [phone] Lisbeth Johnson Unavailable Encounter Details Date Type Department Care Team (Late st Contact Info) Description 12/14/2024 Orders Only GENERIC EXTERNAL DATA DEPARTMENT Provider, [...] Description 12/20/2024 2:00 PM EDT Office Visit [facility] [address] [place] [address] Nathalie Hsu MD [address] [place] [address] 01/01/2025 9:00 AM EDT Office Visit [facility] [address] [place] [address] Seth, Zabrina, OD 230 [place] [address] 01/08/2025 10:15 AM EDT Office Visit [facility] 230 [place] [address] Ulises, Chiquita 230 [place] [address] 02/16/2025 1:15 PM EST Office Visit [facility] [address] [place] [address] Renny Holloway MD [address] [place] [address] documented as of this encounter Procedures Procedure Name Priority Date/Time Associated Diagnosis Comments HIGH SENSITIVITY TROPONIN I Routine 12/14/2024 5:26 PM EDT HIGH SENSITIVITY TROPONIN I Routine 12/14/2024 12:27 PM EDT ETHANOL Routine 12/14/2024 12:27 PM EDT CBC WITH AUTO DIFFERENTIAL Routine 12/14/2024 12:27 PM EDT MAGNESIUM Routine 12/14/2024 12:27 PM EDT LIPASE Routine 12/14/2024 12:27 PM EDT COMPREHENSIVE METABOLIC PANEL Routine 12/14/2024 12:27 PM EDT documented in this encounter Results * High Sensitivity Troponin I (12/14/2024 5:26 PM EDT) [facility] TROPONIN I HIGH SENSITIVITY 4.6 <3.5 - 35.0 ng/L [facility] Comment:The [place]once high sens itivity Troponin-I results should beused in conjunction with other diagnostic information suchas ECG, clinical observations and information, and patientsymptoms to aid in the diagnosis of DC. 12/14/2024 5:26 PM EDT 12/14/2024 5:28 PM EDT us Generic External Data Provider LAB BLOOD ORDERAB LES Final Result [facility] [address] [place] [phone] * High Sensitivity Troponin I (12/14/2024 12:27 PM EDT) [facility] TROPONIN I HIGH SENSITIVITY 5.2 <3.5 - 35.0 ng/L [facility] Comment:The [facility] high sens itivity Troponin-I results should beused in conjunction with other diagnostic information suchas ECG, clinical observations and information, and patientsymptoms to aid in the diagnosis of DC. 12/14/2024 12:2 7 PM EDT 12/14/2024 12:29 PM EDT Generic External Data Provider LAB BLOOD ORDERAB LES Final Result Performing Organization Address [facility] Co de Phone Number [facility] [address] [place] [phone] * Ethanol (12/14/2024 12:27 PM EDT) ETHANOL (MG/DL) IN SER/PLAS <10 mg/dL [facility] Comment:Serum/plasma ethanol results are to be used formedical/treatment purposes only. 12/14/2024 12:2 7 PM EDT 12/14/2024 12:29 PM EDT Generic External Data Provider LAB BLOOD ORDERAB LES Final Result Performing Organization Address [facility] Co de Phone Number [facility] [address] [place] [phone] * Lipase (12/14/2024 12:27 PM EDT) Lipase 15 8 - 78 U/L [facility] 12/14/2024 12:2 7 PM EDT 12/14/2024 12:29 PM EDT Generic External Data Provider LAB BLOOD ORDERAB LES Final Result Performing Organization Address [facility] de Phone Number [facility] [address] [place] [phone] * Magnesium (12/14/2024 12:27 PM EDT) Magnesium 1.7 1.6 - 2.6 mg/dL [facility] 12/14/2024 12:2 7 PM EDT 12/14/2024 12:29 PM EDT us Generic External Data Provider LAB BLOOD ORDERAB LES Final Result [facility] [address] [place] [phone] * (ABNORMAL) Comprehensive Metabolic Panel (12/14/2024 12:27 PM EDT) Sodium 136 135 - 145 mmol/L [facility] Potassium 4.2 3.3 - 5.1 mmol/L [facility] Chloride 110(H) 96 - 108 mmol/L [facility] Carbon Dioxide 18(L) 22 - 29 mmol/L [facility] Anion Gap 12 12 - 20 [facility] Urea Nitrogen (BUN) 24(H) 9 - 16 mg/dL [facility] Creatinine, Serum 1.43(H) 0.5 - 1.4 mg/dL [facility] Creatinine Clr Calc Pharmacy 59.8 [facility] Comment:eGFR (calculated fro m the MDRD study equation) and eCrCl(calculated from the Cockcroft-Gault equation) are based ondifferent parameters and may not yield comparable results.If eCrCl result is absurd, please check patient'sheight/weight. Estimated Glomerular Filt Rate 50 [facility] Comment:Chronic Kidney Disea se: Estimated GFR < 60 mL/min/[id number] Kidney Disease: Estimated GFR < 15 mL/min/1.73m2 Glucose 107 60 - 115 mg/dL [facility] Calcium 9.1 8.4 - 10.2 mg/dL [facility] Bilirubin, Total 0.6 0.0 - 1.0 mg/dL [facility] Aspartate Amino Transferase 29 5 - 37 U/L [facility] Alanine Aminotransferase 21 0 - 40 U/L [facility] Total Protein 8.0 6.5 - 8.0 g/dL [facility] Albumin Level 4.1 3.5 - 5.0 g/dL [facility] Alkaline Phosphatase 116 39 - 117 U/L [facility] 12/14/2024 12:2 7 PM EDT 12/14/2024 12:29 PM EDT us Generic External Data Provider LAB BLOOD ORDERAB LES Final Result [facility] [address] [place] [phone] * (ABNORMAL) CBC auto differential (12/14/2024 12:27 PM EDT) White Blood Count 8.5 4.8 - 10.8 X10*3/uL [facility] Red Blood Count 4.44(L) 4.60 - 5.80 X10*6/uL [facility] Hemoglobin 14.7 14.0 - 18.0 g/dl [facility] Hematocrit 42.6 42.0 - 52.0 % [facility] Mean Corpuscular Volume 95.9 80.0 - 98.0 fL [facility] Mean Corpuscular Hemoglobin 33.1(H) 27.0 - 33.0 pg [facility] Mean Corpuscular HGB Conc 34.5 31.0 - 36.0 g/dl [facility] Red Cell Distribution Width 14.9 11.0 - 16.0 % [facility] Platelet Count 221 160 - 400 X10*3/uL [facility] Mean Platelet Volume 9.2(L) 9.4 - 12.4 fL [facility] Neutrophils Percent Auto 70.2 45 - 73 % [facility] Imm Gran Pct Auto 0.8(H) 0.0 - 0.4 % [facility] Lymphocytes Percent Auto 18.4(L) 20 - 40 % [facility] Monocytes Percent Auto 8.1 2 - 11 % [facility] Eosinophils Percent Auto 1.9 0 - 4 % [facility] Basophils Percent Auto 0.6 0 - 2 % [facility] NRBC Pct Auto 0.0 0.0 - 0.2 /100WBC [facility] Neutrophils Absolute Auto 6.0 2.0 - 8.3 x10*3/uL [facility] Imm Gran Abs Auto 0.07(H) 0.00 - 0.03 X10*3/uL [facility] Lymphocytes Absolute Auto 1.6 1.2 - 4.9 X10*3/uL [facility] Monocytes Absolute Auto 0.7 0.1 - 1.2 X10*3/uL [facility] Eosinophils Absolute Auto 0.2 0.0 - 0.4 X10*3/uL [facility] Basophils Absolute Auto 0.1 0.0 - 0.2 X10*3/uL [facility] NRBC Abs Auto 0.000 0.0 - 0.012 X10*3/uL [facility] 12/14/2024 12:2 7 PM EDT 12/14/2024 12:29 PM EDT us Generic External Data Provider LAB BLOOD ORDERAB LES Final Result Performing Organization Address City/State/[facility] Co de Phone Number [facility] [address] [place] [phone] documented in this encounter Visit Diagnoses Not on filedocumented in this encounter Additional Health Concerns Assessment Noted Time PHQ-9 Depression Total Score: 0 09/21/19 25 3:24 PM EDT documented as of this encounter Care Teams Distribution Lineman Relationship Specialty Start Date End Date Nathalie Hsu MD [address] [place] [address] PCP - General Family Medicine 09/27/13 Shannan Barrow, KHAI [address] [place] [address] Registered Nurse 02/29/24 Lisbeth Johnson [address] 3rd [place] [address] Gastroenterology 03/15/24 Tonya Poole Global LeadManager Fashion 01/19/24 Sherin (A S) Registered Nurse 02/29/24 Marcos Verdin MD [place] [facility] [address] [place] [address] Cardiology 03/10/24 Omid Vincent Psychiatry 03/15/24 documented as of this encounter
--- OUTSIDE RECORDS SUMMARY | 2024-12-14 20:28 | XMS_ITS | Encounter Summary ---
Author Organization [employer] Address [address] [facility] 7t [place] [address] Care Team Providers Care Crabbing Machine Operator Name Role Phone Nathalie Hsu MD Primary Care Provider [phone]- [phone] Shannan Barrow RN Unavailable [phone] Lisbeth Johnson Unavailable Reason for Visit * Reason Comments Med Refill Encounter Details Date Type Department Care Team (Late st Contact Info) Description 02/28/2023 Refill [facility] [address] [place], [place] [phone] Nathalie Hsu MD [address] [place], [place] [phone] Social History Tobacco Use Types Packs/Day Years [...] EDT Office Visit [facility] [address] [place] [address] Nathalie Hsu MD [address] [place] [address] 01/01/2025 9:00 AM EDT Office Visit [facility] [address] [place] [address] Seth, Zabrina, OD 230 [place] [address] 01/08/2025 10:15 AM EDT Office Visit [facility] ADULT DENTAL [address] [place] [address] Ulises, Chiquita [address] [place] [address] 02/16/2025 1:15 PM EST Office Visit [facility] [address] [place] [address] Renny Holloway MD [address] [place] [address] documented as of this encounter Visit Diagnoses Not on filedocumented in this encounter Additional Health Concerns Assessment Noted Time PHQ-9 Depression Total Score: 6 05/08/19 23 10:33 AM EST documented as of this encounter Care Teams Crabbing Machine Operator Relationship Specialty Start Date End Date Nathalie Hsu MD [address] [place] [address] PCP - General Family Medicine 09/27/13 Shannan Barrow, RN [address] [place] [address] Registered Nurse 02/29/24 Lisbeth Johnson [address] 3rd [place] [address] Gastroenterology 03/15/24 Tonya Poole Traffic Division Commanding OfficerSeed Packer 01/19/24 Sherin (VNA IHS) Registered Nurse 02/29/24 Marcos Verdin MD [place] [facility] [address] [place] [address] Cardiology 03/10/24 Omid Vincent Psychiatry 03/15/24 documented as of this encounter
--- OUTSIDE RECORDS SUMMARY | 2024-12-14 20:28 | XMS_ITS | Encounter Summary ---
Author Organization [employer] Address [address] 7t [place] [address] Care Team Providers Care Computer Trainer Name Role Phone Nathalie Hsu MD Primary Care Provider [phone]- [phone] Shannan Barrow RN Unavailable [phone] Lisbeth Johnson Unavailable Reason for Visit * Reason Onset Date Comments Coagulation Disorder 05/12/2023 Encounter Details Date Type Department Care Team (Late st Contact Info) Description 05/12/2023 Telephone [facility] [address] [place], [place] [phone] Nathalie Hsu MD 230 [place], [place] [phone] Coagulation Disorder Social History Tobacco Use Types [...] to report INR. Please contact robert at [phone] documented in this encounter Plan of Treatment Upcoming Encounters Date Type Department Care Team (Late st Contact Info) Description 12/20/2024 2:00 PM EDT Office Visit [facility] [address] [place] [address] Nathalie Hsu MD 230 [place] [address] 01/01/2025 9:00 AM EDT Office Visit [facility] [address] [place] [address] Zabrina Ann, OD 230 [place] [address] 01/08/2025 10:15 AM EDT Office Visit [facility] ADULT DENTAL [address] [place] [address] Ulises, Chiquita [address] [place] [address] 02/16/2025 1:15 PM EST Office Visit [facility] [address] [place] [address] Renny Holloway MD 230 [place] [address] documented as of this encounter Visit Diagnoses Not on filedocumented in this encounter Additional Health Concerns Assessment Noted Time PHQ-9 Depression Total Score: 6 05/08/19 23 10:33 AM EST documented as of this encounter Care Teams Computer Trainer Relationship Specialty Start Date End Date Nathalie Hsu MD [address] [place], [place] [phone] PCP - General Family Medicine 09/27/13 Shannan Barrow, KHAI [address] [place] [address] [phone] Registered Nurse 02/29/24 Lisbeth Johnson [address] [place] [address] Drive 3rd [place] [address] Gastroenterology 03/15/24 Tonya Poloe Veterans Contact RepresentativeLiterature Professor 01/19/24 Sherin (VNA IHS) Registered Nurse 02/29/24 Marcos Verdin MD [place] [facility] [address] [place] [address] Cardiology 03/10/24 Omid Vincent Psychiatry 03/15/24 documented as of this encounter
--- OUTSIDE RECORDS SUMMARY | 2024-12-14 20:28 | XMS_ITS | Encounter Summary ---
Author Organization [employer] Address [address] [facility] 7t [place] [address] Care Team Providers Care Laundry Bag Punch Operator Name Role Phone Nathalie Hsu MD Primary Care Provider [phone]- [phone] Shannan Barrow RN Unavailable [phone] Lisbeth Johnson Unavailable Reason for Visit * Reason Comments Med Refill Encounter Details Date Type Department Care Team (Late st Contact Info) Description 02/12/2023 Refill [facility] [address] [place], [place] [phone] Nathalie Hsu MD 230 [place], [place] [phone] Pain Social History Tobacco Use Types Packs/Day [...] Description 12/20/2024 2:00 PM EDT Office Visit [facility] [address] [place] [address] Nathalie Hsu MD [address] [place] [address] 01/01/2025 9:00 AM EDT Office Visit [facility] [address] [place] [address] Seth, Zabrina, OD 230 [place] [address] 01/08/2025 10:15 AM EDT Office Visit [facility] ADULT DENT[facility] [address] [place] [address] Ulises, Chiquita [address] [place] [address] 02/16/2025 1:15 PM EST Office Visit [facility] [address] [place] [address] Renny Holloway MD 230 [place] [address] documented as of this encounter Visit Diagnoses Diagnosis Pain Generalized pain documented in this encounter Additional Health Concerns Assessment Noted Time PHQ-9 Depression Total Score: 6 05/08/19 23 10:33 AM EST documented as of this encounter Care Teams Laundry Bag Punch Operator Relationship Specialty Start Date End Date Nathalie Hsu MD [address] [place] [address] PCP - General Family Medicine 09/27/13 Shannan Barrow, RN [address] [place] [address] Registered Nurse 02/29/24 Lisbeth Johnson [address] 3rd [place] [address] Gastroenterology 03/15/24 Tonya Poole Hide SpreaderFinisher Screwdown 01/19/24 Sherin (VNA IHS) Registered Nurse 02/29/24 Marcos Verdin MD [place] [facility] [address] [place] [address] Cardiology 03/10/24 Omid Vincent Psychiatry 03/15/24 documented as of this encounter
--- OUTSIDE RECORDS SUMMARY | 2024-12-14 20:28 | XMS_ITS | Encounter Summary ---
Author Organization [employer] Address [address] 7t [place] [address] Care Team Providers Care Die Casting Supervisor Name Role Phone Nathalie Hsu MD Primary Care Provider [phone]- [phone] Shannan Barrow RN Unavailable [phone] Lisbeth Johnson Unavailable Reason for Visit * Reason Comments Med Refill Encounter Details Date Type Department Care Team (Late st Contact Info) Description 11/01/2023 Refill [facility] [address] [place], [place] [phone] Nathalie Hsu MD 230 [place], [place] [phone] Mild intermittent asthma, unspecified whether complicated Social [...] the past 12 months, has t he [employer] gas, oil or water [employer] threatened to shut off services in your [...] 2:00 PM EDT Office Visit [facility] [address] [place] [address] Nathalie Hsu MD [address] [place] [address] 01/01/2025 9:00 AM EDT Office Visit [facility] OPTOM[facility] [address] [place] [address] Zabrina Ann, OD 230 [place] [address] 01/08/2025 10:15 AM EDT Office Visit [facility] ADULT DENTAL 230 [place] [address] Ulises Chiquita 230 [place] [address] 02/16/2025 1:15 PM EST Office Visit [facility] [address] [place] [address] Renny Holloway MD [address] [place] [address] documented as of this encounter Visit Diagnoses Diagnosis Mild intermittent asthma, unspecified whether complicated documented in this encounter Additional Health Concerns Assessment Noted Time PHQ-9 Depression Total Score: 0 06/09/19 24 9:13 AM EST documented as of this encounter Care Teams Die Casting Supervisor Relationship Specialty Start Date End Date Nathalie Hsu MD 230 [place] [address] PCP - General Family Medicine 09/27/13 Shannan Barrow, KHAI [address] [place] [address] Registered Nurse 02/29/24 Lisbeth Johnson [address] [place] [address] 3rd [place] [address] Gastroenterology 03/15/24 Tonya Poole Chief Supply Chain OfficerMaple Products Maker 01/19/24 Sherin (VNA IHS) Registered Nurse 02/29/24 Marcos Verdin MD [place] [facility] [address] [place] [address] Cardiology 03/10/24 Omid Vincent Psychiatry 03/15/24 documented as of this encounter
--- OUTSIDE RECORDS SUMMARY | 2024-12-14 20:28 | XMS_ITS | Encounter Summary ---
Author Organization [employer] Address [address] 7t [place] [address] Care Team Providers Care Steam Presser Name Role Phone Nathalie Hsu MD Primary Care Provider [phone]- [phone] Shannan Barrow RN Unavailable [phone] Lisbeth Johnson Unavailable Reason for Visit * Reason Onset Date Comments INR report 03/31/2023 Encounter Details Date Type Department Care Team (Late st Contact Info) Description 03/31/2023 Telephone [facility] [address] [place], [place] [phone] Nathalie Hsu MD [address] [place], [place] [phone] INR report Social History Tobacco Use Types [...] PM EST Tc from Raman VALE with [facility] requesting a call from a nurse to report an INR results. Please contact Raman @ [phone] documented in this encounter Plan of Treatment Upcoming Encounters Date Type Department Care Team (Late st Contact Info) Description 12/20/2024 2:00 PM EDT Office Visit [facility] [address] [place] [address] Nathalie Hsu MD [address] [place] [address] 01/01/2025 9:00 AM EDT Office Visit [facility] [address] [place] [address] Zabrina Ann, OD 230 [place] [address] 01/08/2025 10:15 AM EDT Office Visit [facility] ADULT DENTAL [address] [place] [address] Adalberto Montgomeryaris [address] [place] [address] 02/16/2025 1:15 PM EST Office Visit [facility] [address] [place] [address] Renny Holloway MD [address] [place] [address] documented as of this encounter Visit Diagnoses Not on filedocumented in this encounter Additional Health Concerns Assessment Noted Time PHQ-9 Depression Total Score: 6 05/08/19 23 10:33 AM EST documented as of this encounter Care Teams Steam Presser Relationship Specialty Start Date End Date Nathalie Hsu MD [address] [place] [address] PCP - General Family Medicine 09/27/13 Shannan Barrow, KHAI [address] [place] [address] Registered Nurse 02/29/24 Lisbeth Johnson [address] [place] [address] Drive 3rd [place] [address] Gastroenterology 03/15/24 Tonya Poole Technology DirectorEstate Planning Director 01/19/24 Sherin (VNA IHS) Registered Nurse 02/29/24 Marcos Verdin MD [address] [facility] [address] [place] [address] Cardiology 03/10/24 Omid Vincent Psychiatry 03/15/24 documented as of this encounter
--- OUTSIDE RECORDS SUMMARY | 2024-12-14 20:28 | XMS_ITS | Encounter Summary ---
Author Organization [employer] Address [address] [facility] 7t [place] [address] Care Team Providers Care Street Inspector Name Role Phone Nathalie Hsu MD Primary Care Provider [phone] Shannan Barrow RN Unavailable [phone] Lisbeth Johnson Unavailable Reason for Visit * Reason Onset Date Comments Med Refill 07/01/2023 Encounter Details Date Type Department Care Team (Late st Contact Info) Description 07/01/2023 Telephone [facility] [address] [place], [place] [phone] Nathalie Hsu MD 230 [place], [place] [phone] Med Refill Social History Tobacco Use Types [...] the past 12 months, has t he [employer], oil or water [employer] threatened to shut off services in your [...] EDT Medication was sent to [facility] on 03/03/23 90 day supply with 1 refill. * Telephone Encounter - Amie Ramsey - 07/01/2023 9:06 AM EDT TC from pt requesting medication refill. Medications needing refill : pantoprazole (ProtoNix) 40 MG EC tablet To be sent to: [facility] - [place], [place] - [address] [place] [address] 230 [facility] [phone] documented in this encounter Plan of Treatment Upcoming Encounters Date Type Department Care Team ([facility] st Contact Info) Description 12/20/2024 2:00 PM EDT Office Visit [facility] [address] [place], [place] [phone] Nathalie Hsu MD [address] [place] [address] [place] [address] 01/01/2025 9:00 AM EDT Office Visit [facility] OPTOMETRY [address] [place] [address] Zabrina Ann, OD 230 [place] [address] 01/08/2025 10:15 AM EDT Office Visit [facility] ADULT DENTAL [address] [place] [address] Ulises, Chiquita [address] [place] [address] 02/16/2025 1:15 PM EST Office Visit [facility] [address] [place] [address] Renny Holloway MD [address] [place] [address] documented as of this encounter Visit Diagnoses Not on filedocumented in this encounter Additional Health Concerns Assessment Noted Time PHQ-9 Depression Total Score: 0 06/09/19 24 9:13 AM EST documented as of this encounter Care Teams Street Inspector Relationship Specialty Start Date End Date Nathalie Hsu MD [address] [place] [address] PCP - General Family Medicine 09/27/13 Shannan Barrow, RN [address] [place] [address] Registered Nurse 02/29/[address]rd [place] [address] Gastroenterology 03/15/24 Tonya Poole Wire GalvanizerPark Interpretive Ranger 01/19/24 Sherin (VNA IHS) Registered Nurse 02/29/24 Marcos Verdin MD [place] [facility] [address] [place] [address] Cardiology 03/10/24 Omid Vincent Psychiatry 03/15/24 documented as of this encounter
--- OUTSIDE RECORDS SUMMARY | 2024-12-14 20:28 | XMS_ITS | Encounter Summary ---
Author Organization [employer] Address [address] [facility] 7[address] [place] [address] Care Team Providers Care E Learning Coordinator Name Role Phone Nathalie Hsu MD Primary Care Provider [phone] Shannan Barrow RN Unavailable [phone] Lisbeth Johnson Unavailable Reason for Visit * Reason Onset Date Comments Results 01/12/2023 INR Encounter Details Date Type Department Care Team (Late st Contact Info) Description 01/12/2023 Telephone [facility] [address] [place], [place] [phone] Nathalie Hsu MD [address] [place], [place] [phone] Results (INR) Social History Tobacco Use Types [...] 12:36 PM EDT Tc from [facility] at [employer] reporting INR results. Please call [phone] documented in this encounter Plan of Treatment Upcoming Encounters Date Type Department Care Team (Late st Contact Info) Description 12/20/2024 2:00 PM EDT Office Visit [facility] [address] [place] [address] Nathalie Hsu MD [address] [place] [address] 01/01/2025 9:00 AM EDT Office Visit [facility] [address] [place] [address] Seth, Zabrina, OD [address] [place] [address] 01/08/2025 10:15 AM EDT Office Visit [facility] ADULT DENTAL [address] [place] [address] Ulises Chiquita [address] [place] [address] 02/16/2025 1:15 PM EST Office Visit [facility] [address] [place] [address] Renny Holloway MD [address] [place] [address] documented as of this encounter Visit Diagnoses Not on filedocumented in this encounter Additional Health Concerns Assessment Noted Time PHQ-9 Depression Total Score: 6 05/08/19 23 10:33 AM EST documented as of this encounter Care Teams E Learning Coordinator Relationship Specialty Start Date End Date Nathalie Hsu MD [address] [place], [place] [phone] PCP - General Family Medicine 09/27/13 Shannan Barrow, RN [address] [place], [place] [phone] Registered Nurse 02/29/24 Lisbeth Johnson [address] [place] [address] 3rd [place] [address] Gastroenterology 03/15/24 Tonya Poole Utilities Estimator And DrafterTube Room Cashier 01/19/24 Sherin ([facility]) Registered Nurse 02/29/24 Marcos Verdin MD [facility] [address] [place] [address] Cardiology 03/10/24 Omid Vincent Psychiatry 03/15/24 documented as of this encounter
--- OUTSIDE RECORDS SUMMARY | 2024-12-14 20:28 | XMS_ITS | Encounter Summary ---
Author Organization [employer] [facility] Address [address] [place] [address] 7t [place] [address] Care Team Providers Care City Dispatch Supervisor Name Role Phone Nathalie Hsu MD Primary Care Provider Shannan Barrow RN Unavailable [phone] Lisbeth Johnson Unavailable Encounter Details Date Type Department Care Team (Late st Contact Info) Description 04/01/2022 Orders Only [facility] [address] [place] [address] Anabell Weston, KHAI Social History Tobacco Use [...] EDT Office Visit [facility] [address] [place] [address] Nathalie Hsu MD [address] [place] [address] 01/01/2025 9:00 AM EDT Office Visit [facility] [address] [place] [address] Zabrina Ann, OD [address] [place] [address] 01/08/2025 10:15 AM EDT Office Visit [facility] ADULT DENTAL [address] [place] [address] Chiquita Montgomery [address] [place] [address] 02/16/2025 1:15 PM EST Office Visit [facility] [address] [place] [address] Renny Holloway MD [address] [place] [address] documented as of this encounter Visit Diagnoses Not on filedocumented in this encounter Care Teams City Dispatch Supervisor Relationship Specialty Start Date End Date Nathalie Hsu MD [address] [place] [address] PCP - General Family Medicine 09/27/13 Shannan Barrow, KHAI [address] [place] [phone] Registered Nurse 02/29/24 Lisbeth Johnson [address] [place] [address] [address] [place] [address] Gastroenterology 03/15/24 Tonya Poole Property Disposal OfficerHouse Designer 01/19/24 Sherin (A [facility]) Registered Nurse 02/29/24 Marcos Verdin MD [place] [facility] [address] [place] [address] Cardiology 03/10/24 Omid Vincent Psychiatry 03/15/24 documented as of this encounter
--- OUTSIDE RECORDS SUMMARY | 2024-12-14 20:28 | XMS_ITS | Encounter Summary ---
Author Organization [employer] Address [address] [place] [address] Care Team Providers Care Payroll Services Analyst Name Role Phone Nathalie Hsu MD Primary Care Provider [phone] Shannan Barrow RN Unavailable Lisbeth Johnson Unavailable Encounter Details Date Type Department Care Team (Late st Contact Info) Description 05/12/2023 Orders Only [facility] [address] [place], [place] [phone] Nathalie Hsu MD [address] [place], [place] [phone] Social History Tobacco Use Types Packs/Day Years [...] 12/20/2024 2:00 PM EDT Office Visit [facility] [address] [place] [address] Nathalie Hsu MD [address] [place] [address] 01/01/2025 9:00 AM EDT Office Visit [facility] OPTOMET[facility] [address] [place] [address] Seth, Zabrina, OD [address] [place] [address] 01/08/2025 10:15 AM EDT Office Visit [facility] ADULT DENTAL [address] [place] [address] Ulises, Chiquita [address] [place] [address] 02/16/2025 1:15 PM EST Office Visit [facility] [address] [place] [address] Renny Holloway MD [address] [place] [phone] documented as of this encounter Visit Diagnoses Not on filedocumented in this encounter Additional Health Concerns Assessment Noted Time PHQ-9 Depression Total Score: 6 05/08/19 23 10:33 AM EST documented as of this encounter Care Teams Payroll Services Analyst Relationship Specialty Start Date End Date Nathalie Hsu MD [address] [place] [address] PCP - General Family Medicine 09/27/13 Shannan Barrow, RN [address] [place] [address] Registered Nurse 02/29/24 Lisbeth Johnson [address] [place] [address] 3rd [place] [address] Gastroenterology 03/15/24 Tonya Poole Planting Machine OperatorStrap Setter 01/19/24 Sherin (A [facility]) Registered Nurse 02/29/24 Marcos Verdin MD [place] [facility] [address] [place] [address] Cardiology 03/10/24 Omid Vincent Psychiatry 03/15/24 documented as of this encounter
--- OUTSIDE RECORDS SUMMARY | 2024-12-14 20:28 | XMS_ITS | Clinical Summary ---
Author Organization [employer] Address [address] [place] [address] Care Team Providers Care Rail Track Layer Name Role Phone Aracelis, Nathalie ABDI Primary Care Provider [phone] Shannan Barrow RN Unavailable [phone] Lisbeth Johnson Unavailable Allergies Active Allergy [...] tablet 3 03/10/20 24 Active Farxiga 10 MGIndications:C ardiomyopathy, unspecified [...] 25 Active pantoprazole (ProtoNix) 40 MG EC tabletIndicatio [...] nicotine (Nicoderm, Step 2) 14 MG/24HR patchIndication s:Tobacco dependence APPLY 1 PATCH TOPICALLY TO THE SKIN IN THE MORNING. DO NOT SMOKE WHILE USING PATCH. 28 patch 2 10/11/19 25 Active warfarin (Coumadin) 5 MG tabletIndicatio ns:History of prosthetic heart valve TAKE 1 TO 2 TABLETS BY MOUTH ONCE DAILY DIRECTED BY COUMADIN CLINIC 60 tablet 3 10/11/19 25 Active gabapentin (Neurontin) 100 MG capsuleIndicati ons:Pain TAKE 1 CAPSULE BY MOUTH THREE TIMES DAILY IN THE MORNING, EVENING, AND BEDTIME 90 capsule 3 10/11/19 25 Active lidocaine (Lidoderm) 5 % patchIndication s:Pain APPLY 1 PATCH TOPICALLY TO SKIN, LEAVE ON FOR 12 HOURS AND OFF FOR 12 HOURS DIRECTED 30 patch 5 10/11/19 25 Active budesonide-form oterol (Symbicort) 160-4.5 MCG/ACT [...] OR CHEW 90 tablet 10/19/19 25 Active lactulose (Chronulac) 10 GM/15ML solutionIndicat ions:Alcoholic liver disease (CMS/HCC) TAKE 30 ML BY MOUTH THREE TIMES DAILY 946 mL 5 11/10/19 25 Active folic acid (Folvite) 1 MG tabletIndicatio ns:History of alcohol abuse TAKE 1 TABLET BY MOUTH EVERY MORNING 90 tablet 3 11/14/19 25 Active thiamine (Vitamin B-1) 100 MG tabletIndicatio ns:History of alcohol abuse TAKE 1 TABLET BY MOUTH EVERY MORNING 90 tablet 3 11/14/19 25 Active melatonin 5 MG tabletIndicatio ns:Primary insomnia TAKE 2 TABLETS BY MOUTH EVERY DAY AT BEDTIME NEEDED FOR SLEEP 60 tablet 3 11/17/19 25 Active magnesium oxide 250 MG tablet Take 2 tablets by mouth Once per day. 11/21/19 25 Active magnesium 200 MG tabletIndicatio ns:Hypomagnesem ia Take 1 tab po tid 90 tablet 3 11/30/19 25 Active Acetaminophen Extra Strength 500 MG tabletIndicatio ns:Severe dental caries,Dental root caries,Advanced periodontitis,E xcessive attrition of teeth, limited to enamel,Missing teeth, acquired,Dental calculus Take 1 tablet (500 mg) by mouth every 6 (six) hours if needed (pain). 20 tablet 12/07/19 25 Active melatonin 5 MG tabletIndicatio ns:Primary insomnia TAKE 2 TABLETS BY MOUTH EVERY DAY AT BEDTIME NEEDED FOR SLEEP 60 tablet 3 07/21/19 25 025 Discontinued Acetaminophen Extra Strength 500 MG tabletIndicatio ns:Severe dental caries,Dental root caries,Advanced periodontitis,E xcessive attrition of teeth, limited to enamel,Missing teeth, acquired,Dental calculus TAKE 1 TABLET BY MOUTH EVERY 6 HOURS NEEDED FOR MILD PAIN 20 tablet 11/03/19 25 025 Discontinued(Re order (will not trigger notification to Pharmacy)) Active Problems Problem Noted Date Diagnosed Date [...] 12/10/23 and INR was 13, transferred to [facility] -pt fell again 08/18/24 X ray Acute [...] with patient. Alcoholic liver disease 10/20/2023 Overview (12/06/2024): Lab Results Component Value Date AST 20 [...] diet discussed. Avoid hepatotoxic agents. -Followed by: [facility] [facility], Dr. Johnson: Note from 07/28/24 reviewed -Again [...] add a night time snack such as mohawk yogurt, PB etc - Executive Chairman referral - CLose follow up in 2 weeks -GI note 04/28/24 - Clarified need for CCC and Executive Chairman referrals - Due for EGD/colo - needs repeat echo ordered to follow up on cardiomyopathy prev EF 20-25% - Will also confirm his OP pelt salter for clearance - Pt reminded to bring [...] Recently established care with Dr Holloway at [facility] for substance use disorder recovery and support. - Clarified need for CCC and Executive Chairman referrals - EGD/colo to be booked. He is aware he will need to review coumadin hold with his pelt salter for this procedure - US abd ordered - Repeat MELD labs in 3 months - Follow up 3 months -US 12/01/24 Impression: 1. Hepatic steatosis with focal fatty sparing. MRI would be confirmatory. 2. Bowel gas obscures midline structures. 3. Stable renal cortical cyst. Assessment & Plan (11/29/2024 11:32 AM EDT): [...] diet discussed. Avoid hepatotoxic agents. -Followed by: [facility] [facility], Dr. Johnson: Note from 07/28/24 reviewed -Again [...] add a night time snack such as mohawk yogurt, PB etc - Executive Chairman referral - CLose follow up in 2 weeks -GI note 04/28/24 - Clarified need for CCC and Executive Chairman referrals - Due for EGD/colo - needs repeat echo ordered to follow up on cardiomyopathy prev EF 20-25% - Will also confirm his OP pelt salter for clearance - Pt reminded to bring [...] Recently established care with Dr Holloway at [facility] for substance use disorder recovery and support. - Clarified need for CCC and Executive Chairman referrals - EGD/colo to be booked. He is aware he will need to review coumadin hold with his pelt salter for this procedure - US abd ordered [...] diet discussed. Avoid hepatotoxic agents. -Followed by: [facility] [employer], Dr. Johnson: Note from 07/28/24 reviewed -Again [...] add a night time snack such as mohawk yogurt, PB etc - Executive Chairman referral - CLose follow up in 2 weeks -GI note 04/28/24 - Clarified need for CCC and Executive Chairman referrals - Due for EGD/colo - needs repeat echo ordered to follow up on cardiomyopathy prev EF 20-25% - Will also confirm his OP pelt salter for clearance - Pt reminded to bring [...] Recently established care with Dr Holloway at [facility] for substance use disorder recovery and support. - Clarified need for CCC and Executive Chairman referrals - EGD/colo to be booked. He is aware he will need to review coumadin hold with his pelt salter for this procedure - US abd ordered [...] by: New appointment with GI 03/15/24 at [facility] Assessment & Plan (01/19/2024 9:14 AM [...] due after 09/20/25 -eye care facilitated by [facility] -dental home is [facility] -health care proxy on file 02/08/2015, filed into [employer] on 06/09/23 Assessment & Plan (09/22/2024 8:39 AM EDT): -next comprehensive annual evaluation due after 09/20/25 -eye care facilitated by [facility] -dental home is [facility] -health care proxy on file 02/08/2015, filed into [employer] on 06/09/23 Assessment & Plan (03/10/2024 9:55 PM EST): -next comprehensive annual evaluation due after 03/03/2024 -eye care facilitated by [facility] -dental home is [facility] care proxy on file 02/08/2015, filed into [employer] on 06/09/23 Assessment & Plan (01/19/2024 9:20 AM EDT): -next comprehensive annual evaluation due after 03/03/2024 -eye care facilitated by [facility] -dental home is [facility] care proxy on file 02/08/2015, filed into [employer] on 06/09/23 Assessment & Plan (12/27/2023 11:02 AM EDT): -next comprehensive annual evaluation due after 03/03/2024 -eye care facilitated by [facility] -dental home is [facility] care proxy on file 02/08/2015, filed into [employer] on 06/09/23 Assessment & Plan (10/22/2023 11:16 AM EDT): -next physical exam due after 03/03/2024 -eye care facilitated by [facility] -dental home is [facility] care proxy on file 02/08/2015, filed into [employer] on 06/09/23 Assessment & Plan (03/03/2023 9:35 [...] entresto startd by cardiology 05/2022 -F/u with pelt salter ANA Smith -furosemide 40 mg started during [...] entresto startd by cardiology 05/2022 -F/u with pelt salter ANA Smith -furosemide 40 mg started during [...] entresto startd by cardiology 05/2022 -F/u with pelt salter ANA Smith -furosemide 40 mg started during [...] entresto startd by cardiology 05/2022 -F/u with pelt salter ANA Smith -Furosemide 40 mg started during [...] entresto startd by cardiology 05/2022 -F/u with pelt salter ANA Smith -Furosemide 40 mg started during [...] entresto startd by cardiology 05/2022 -F/u with pelt salter ANA Smith Assessment & Plan (06/03/2022 11:12 [...] entresto startd by cardiology 05/2022 -F/u with pelt salter ANA Smith Assessment & Plan (05/07/2022 10:43 [...] daily, and amlodipine 2.5mg daily -F/u with pelt salter ANA Smith -He is overdue for follow [...] (12/24/2022): -Hospitalized for subarachnoid hemorrhage 10/2021 at [facility] after fall in the setting of supratheraputic INR of 16 and heavy alcohol use. He was changed to lovenox but could not tolerate the injections. Back on coumadin with improved INRs. He is also on plavix. ER precautions discussed. Assessment & Plan (10/22/2023 11:16 AM EDT): -Hospitalized for subarachnoid hemorrhage 10/2021 at [facility] after fall in the setting of supratheraputic INR of 16 and heavy alcohol use. He was changed to lovenox but could not tolerate the injections. Back on coumadin with improved INRs. He is also on plavix. ER precautions discussed. Assessment & Plan (06/09/2023 9:36 AM EST): -Hospitalized for subarachnoid hemorrhage 10/2021 at [facility] after fall in the setting of supratheraputic INR of 16 and heavy alcohol use. He was changed to lovenox but could not tolerate the injections. Back on coumadin with improved INRs. He is also on plavix. ER precautions discussed. Assessment & Plan (08/11/2022 7:29 AM EDT): -Hospitalized for subarachnoid hemorrhage 10/2021 at [facility] after fall in the setting of supratheraputic INR of 16 and heavy alcohol use. He was changed to lovenox but could not tolerate the injections. Back on coumadin with improved INRs. He is also on plavix. ER precautions discussed. Assessment & Plan (06/03/2022 11:07 AM EST): -Hospitalized for subarachnoid hemorrhage 10/2021 at [facility] after fall in the setting of supratheraputic INR of 16 and heavy alcohol use. Now on Lovenox and clopidogrel. Assessment & Plan (05/07/2022 10:53 AM EST): Hospitalized for subarachnoid hemorrhage 10/2021 at [facility] after fall in the setting of supratheraputic [...] Hospital because insurance no longer accepted by [facility]. -Patient followed at [facility] with Dr. Cristine Deleon DO, seen [...] Hospital because insurance no longer accepted by [facility]. -Patient followed at [facility] with Dr. Cristine Deleon DO, seen [...] Hospital because insurance no longer accepted by [facility]. -Patient followed at [facility] with Dr. Cristine Deleon DO, seen [...] daily drinking and rum - established with [facility] because insurance no longer accepted by [facility]. -Patient followed at [facility] with Dr. Cristine Deleon DO, seen [...] Hospital because insurance no longer accepted by [facility]. -Patient followed at [facility] with Dr. Cristine Deleon DO, seen [...] Hospital because insurance no longer accepted by [facility]. -Patient followed at [facility] with Dr. Cristine Deleon DO, seen [...] daily drinking and rum - established with [facility] because insurance no longer accepted by [facility]. -Patient followed at [facility] with Dr. Cristine [...] daily drinking and rum - established with [facility] because insurance no longer accepted by [facility]. Assessment & Plan (11/30/2022 8:51 PM EDT): hx of aortic stenosis s/p Aortic valve repair, hx of AF , cardiomyopathy with EF 25-30%, ,hx AAA repair, complete heart block s/p pacemaker,CAD s/P stent INR goal 2.5 to 3.5 -continue to f up with his pelt salter-next apt w Dr Deleon is on 12/08/2022 - I called cards' office # [phone] and confirmed day and hour and gave [...] daily drinking and rum - Established with [facility] because insurance no longer accepted by [facility]. Assessment & Plan (06/03/2022 11:09 [...] ETOH with intracranial bleed. - established with [facility] because insurance no longer accepted by [facility]. Last seen 05/2022 recommending 4 week follow up Assessment & Plan (05/07/2022 10:46 AM EST): Hx [address] 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 No hx CABG. Pacemaker placed for AV radha block. -On Coumadin, managed by [facility]. - established with [facility] because insurance no longer accepted by [facility]. Presence of cardiac pacemaker 03/07/2014 [...] as pharmacomtherapy, [facility] smoking cessation [facility], and [facility] pharmacy smoking cessation clinic -currently smoke [...] as pharmacomtherapy, [facility] smoking cessation group, and [facility] pharmacy smoking cessation clinic -currently smoke [...] as pharmacomtherapy, [facility] smoking cessation group, and [facility] pharmacy smoking cessation clinic -currently smoke [...] as pharmacomtherapy, [facility] smoking [facility] group, and [facility] pharmacy smoking cessation clinic -currently smoke [...] as pharmacomtherapy, [facility] smoking cessation group, and [facility] pharmacy smoking cessation clinic -currently smoke [...] as pharmacomtherapy, [facility] smoking cessation group, and [facility] pharmacy smoking cessation clinic -currently smoke [...] started during hospitalization 05/17/23 [facility] Assessment & Plan (10/22/2023 11:13 AM [...] tabs BID 06/09/23 Alcohol Use Disorder Clinic [facility] Support and [facility] televist tolerating the medication. Admits [...] tabs BID 06/09/23 Alcohol Use Disorder Clinic [facility] Support and [facility] televist tolerating the medication. Admits [...] Encounters Date Type Department Care Team Description 12/14/2024 Orders Only GENERIC EXTERNAL DATA DEPARTMENT Provider, Generic External Data 12/13/2024 Telephone [facility] [address] [place] [phone] Chiquita Montgomery 12/12/2024 Telephone [facility] [address] [place] [address] Nathalie Hsu MD Critical INR 12/07/2024 Refill [facility] [address] [place] [address] Panchito Lamas DDS 12/06/2024 Refill [facility] [address] [place] [address] Nathalie Hsu MD Severe dental caries; Dental root caries; Advanced periodontitis; Excessive attrition of teeth, limited to enamel; Missing teeth, acquired; Dental calculus 12/05/2024 Telephone [facility] [address] [place] [address] Nathalie Hsu MD Crtical lab / INR 12/05/2024 Telephone [facility] [address] [place] [address] Nathalie Hsu MD Results 12/05/2024 Telephone [facility] [address] [place] [address] Nathalie Hsu MD Results 11/29/2024 11:00 AM EDT Office Visit [address] [address] Nathalie Hsu MD Hypomagnesemia (Primary Dx); Alcohol use disorder, severe, dependence (CMS/HCC); Alcoholic liver disease (CMS/HCC); Anticoagulated on Coumadin; Cardiomyopathy, unspecified type (CMS/HCC); History of prosthetic heart valve; Tobacco dependence 11/29/[address] [address] Nathalie Hsu MD Critical Magnesium 11/29/2024 Orders Only [address] [address] Nathalie Hsu MD Alcoholic liver disease (CMS/HCC) (Primary Dx) 11/29/2024 Travel 11/28/[address] [address] Nathalie Hsu MD CRITICAL LAB 11/28/[address] [address] Nathalie Hsu MD CHART PREP 11/24/2024 1:30 PM EDT Office Visit [address] [address] Renny Holloway MD Alcohol use disorder, severe, dependence (CMS/HCC) (Primary Dx); Nausea and vomiting, unspecified vomiting type; Hypomagnesemia 11/24/2024 Travel 11/21/[address] [address] Nathalie Hsu MD CRITICAL LAB 11/16/2024 Refill [facility] [address] [place] [address] Nathalie Hsu MD History of alcohol abuse; Primary insomnia 11/14/[address] [address] Nathalie Hsu MD Critical INR 11/12/2024 Refill [facility] [address] [place] [address] Nathalie Hsu MD History of alcohol abuse 11/09/2024 1:00 PM EDT Office Visit [facility] [address] [place] [address] Seth, Zabrina, OD Combined forms of age-related cataract of both eyes (Primary Dx); Meibomian gland disease of upper and lower eyelids of both eyes; Presbyopia 11/09/2024 Travel 11/09/2024 Refill [facility] [address] [place] [address] Nathalie Hsu MD Alcoholic liver disease ([facility]) 11/07/[address] [address] Nathalie Hsu MD INR RESULT 11/01/[address] [address] Nathalie Hsu MD Severe dental caries; Dental root caries; Advanced periodontitis; Excessive attrition of teeth, limited to enamel; Missing teeth, acquired; Dental calculus 10/31/[address] [address] Nathalie Hsu MD Results 10/30/[address] [address] Nathalie Hsu MD Medication Question 10/24/[address] [address] Nathalie Hsu MD INR results 10/17/[address] [address] Nathalie Hsu MD Lab Orders 10/17/[address] [address] Nathalie Hsu MD Med Refill; Lab Results 10/13/2024 2:00 PM EDT Office Visit [address] [address] Renny Holloway MD Alcohol use disorder, severe, dependence ([facility]) 10/13/2024 Travel 10/10/[address] [address] Nathalie Hsu MD Coagulation Disorder 10/08/2024 Refill [facility] [address] [place] [address] Nathalie Hsu MD Pain; Mild intermittent asthma without complication; History of prosthetic heart valve 10/08/2024 Refill [facility] [address] [place] [address] Renny Holloway MD Alcohol use disorder, severe, dependence (CMS/HCC) 10/06/2024 Refill [facility] [address] [place] [address] Renny Holloway MD Tobacco dependence; Pain; Mild intermittent asthma without complication 10/04/2024 Telephone [facility] [address] [place] [address] Nathalie Hsu MD critcal lab 09/27/[address] [address] Nathalie Hsu MD PT1 09/26/[address] [address] Nathalie Hsu MD INR result 09/25/[address] [address] Nathalie Hsu MD Severe dental caries; Dental root caries; Advanced periodontitis; Excessive attrition of teeth, limited to enamel; Missing teeth, acquired; Dental calculus 09/20/2024 3:30 PM EDT Office Visit [address] [address] Nathalie Hsu MD Cardiomyopathy, unspecified type ([facility]/HCC) (Primary Dx); Chronic coronary microvascular dysfunction; History of prosthetic heart valve; Hypertension, unspecified type; Paroxysmal atrial fibrillation (CMS/HCC); Presence of cardiac pacemaker; Anticoagulated on Coumadin; Seizure disorder (CMS/HCC); Mild intermittent asthma, unspecified whether complicated; Alcoholic liver disease (CMS/HCC); Alcohol use disorder, severe, dependence (CMS/HCC); Decompensated cirrhosis (CMS/HCC); Anemia, unspecified type; History of GI bleed; Vitamin B 12 deficiency; Depressive disorder; Tobacco dependence; Dental root caries; Severe dental caries; Dental calculus; Missing teeth, acquired; Excessive attrition of teeth, limited to enamel; Advanced periodontitis; Overweight; Dietary counseling; Exercise counseling; Other specified health status 09/20/2024 Travel 09/19/2024 10:00 AM EDT Office Visit [facility] [address] [place] [address] Panchito Lamas DDS Advanced periodontitis (Primary Dx); Dental caries 09/19/2024 Telephone [facility] [address] [place] [address] Nathalie Hsu MD CRITICAL LAB 09/19/2024 Telephone [facility] [address] [place] [address] Elizabeth Alejandre MA chart prep from Last 3 Months Immunizations Immunization Administration [...] Description 12/20/2024 2:00 PM EDT Office Visit [facility] [address] [place] [address] Nathalie Hsu MD [address] [place] [address] 01/01/2025 9:00 AM EDT Office Visit [facility] [address] [place] [address] Seth, Zabrina, OD [address] [place] [address] 01/08/2025 10:15 AM EDT Office Visit [facility] [address] [place] [address] Ulises, Chiquita [address] [place] [address] 02/16/2025 1:15 PM EST Office Visit [facility] [address] [place] [address] Renny Holloway MD [address] [place] [address] Health Maintenance Due Date Last Done Comments CT Colonography 1961 Dental Prophylaxis 1961 FIT 1961 Sigmoidoscopy 1961 RSV Patients and Patients Aged 60 years or older (1 - Risk 60-74 years 1-dose series) 2021 Colonoscopy 03/05/2022 03/05/2012 Zoster Vaccines (2 of 2) 01/19/2023 11/24/2022 COVID-19 Vaccine ( season) 2024 05/01/2022, 11/13/2021, 11/13/2021, Additional history exists Influenza Vaccine (#1) 2024 9, 06/23/2018, 12/21/2011, Additional history exists Dental Oral Exam 12/10/2024 06/08/2024 FOBT 12/29/2024 12/30/2023 Dental X-Ray: Bitewings 06/09/2025 06/08/2024 Depression Screening [...] EDT ETHANOL Routine 12/14/2024 12:27 PM EDT LIPASE Routine 12/14/2024 12:27 PM EDT MAGNESIUM Routine 12/14/2024 12:27 PM EDT COMPREHENSIVE METABOLIC PANEL Routine 12/14/2024 12:27 PM EDT CBC WITH AUTO DIFFERENTIAL Routine 12/14/2024 12:27 PM EDT PROTHROMBIN TIME-INR Routine 12/12/2024 PROTHROMBIN TIME-INR Routine 12/05/2024 US ABDOMEN COMPLETE Routine 12/01/2024 6 :46 AM EDT BASIC METABOLIC PANEL Routine 11/29/2024 11:20 AM [...] 10:00 AM EDT PROTHROMBIN TIME-INR Routine 09/19/2024 INTRAORAL - COMPLETE SERIES OF RADIOGRAPHIC IMAGES [...] Recently Relevant to Health Maintenance Results * High Sensitivity Troponin I (12/14/2024 5:26 PM EDT) Only the most recent of2 resultswithin the time period is included. [facility] TROPONIN I HIGH SENSITIVITY 4.6 <3.5 - 35.0 ng/L [facility] Comment:The [place] high sens itivity Troponin-I results should beused in conjunction with other diagnostic information suchas ECG, clinical observations and information, and patientsymptoms to aid in the diagnosis of [place]. 12/14/2024 5:26 PM EDT 12/14/2024 5:28 PM EDT Generic External Data Provider LAB BLOOD ORDERAB LES Final Result Performing Organization Address [facility] Co de Phone Number [facility] [address] [place] [phone] * Ethanol (12/14/2024 12:27 PM EDT) [facility] ETHANOL (MG/DL) IN SER/PLAS <10 mg/dL [facility] Comment:Serum/plasma ethanol results are to be used formedical/treatment purposes only. 12/14/2024 12:2 7 PM EDT 12/14/2024 12:29 PM EDT Generic External Data Provider LAB BLOOD ORDERAB LES Final Result Performing Organization Address [facility]/ZIP Co de Phone Number [facility] [facility] [address] [place] [phone] * (ABNORMAL) CBC auto differential (12/14/2024 12:27 PM EDT) [facility] White Blood Count 8.5 4.8 - 10.8 X10*3/uL [facility] Red Blood Count 4.44(L) 4.60 - 5.80 X10*6/uL [facility] Hemoglobin 14.7 14.0 - 18.0 g/dl [facility] Hematocrit 42.6 42.0 - 52.0 % [facility] Mean Corpuscular Volume 95.9 80.0 - 98.0 fL [facility] Mean Corpuscular Hemoglobin 33.1(H) 27.0 - 33.0 pg [facility] Mean Corpuscular HGB Conc 34.5 31.0 - 36.0 g/dl [facility] Red Cell Distribution Width 14.9 11.0 - 16.0 % [facility] Platelet Count 221 160 - 400 X10*3/uL [facility] Mean Platelet Volume 9.2(L) 9.4 - 12.4 fL [facility] Neutrophils Percent Auto 70.2 45 - 73 % [facility] Imm Gran Pct Auto 0.8(H) 0.0 - 0.4 % [facility] Lymphocytes Percent Auto 18.4(L) 20 - 40 % [facility] Monocytes Percent Auto 8.1 2 - 11 % [facility] Eosinophils Percent Auto 1.9 0 - 4 % [facility] Basophils Percent Auto 0.6 0 - 2 % [facility] NRBC Pct Auto 0.0 0.0 - 0.2 /100WBC [facility] Neutrophils Absolute Auto 6.0 2.0 - 8.3 x10*3/uL [facility] Imm Gran Abs Auto 0.07(H) 0.00 - 0.03 X10*3/uL [facility] Lymphocytes Absolute Auto 1.6 1.2 - 4.9 X10*3/uL [facility] Monocytes Absolute Auto 0.7 0.1 - 1.2 X10*3/uL [facility] Eosinophils Absolute Auto 0.2 0.0 - 0.4 X10*3/uL [facility] Basophils Absolute Auto 0.1 0.0 - 0.2 X10*3/uL [facility] NRBC Abs Auto 0.000 0.0 - 0.012 X10*3/uL [facility] 12/14/2024 12:2 7 PM EDT 12/14/2024 12:29 PM EDT Generic External Data Provider LAB BLOOD ORDERAB LES Final Result Performing Organization Address City/[facility]/ZIP Co de Phone Number [facility] [address] [place] [phone] * Magnesium (12/14/2024 12:27 PM EDT) Only the most recent of2 resultswithin the time period is included. Magnesium 1.7 1.6 - 2.6 mg/dL [facility] 12/14/2024 12:2 7 PM EDT 12/14/2024 12:29 PM EDT Generic External Data Provider LAB BLOOD ORDERAB LES Final Result Performing Organization Address [facility]/ZIP Co de Phone Number [facility] [address] [place] [phone] * Lipase (12/14/2024 12:27 PM EDT) Pathologist [facility] Lipase 15 8 - 78 U/L [facility] 12/14/2024 12:2 7 PM EDT 12/14/2024 12:29 PM EDT Generic External Data Provider LAB BLOOD ORDERAB LES Final Result Performing Organization Address [facility]/ZIP Co de Phone Number [facility] [address] [place] [phone] * (ABNORMAL) Comprehensive Metabolic Panel (12/14/2024 12:27 PM EDT) Sodium 136 135 - 145 mmol/L [facility] Potassium 4.2 3.3 - 5.1 mmol/L [facility] Chloride 110(H) 96 - 108 mmol/L [facility] Carbon Dioxide 18(L) 22 - 29 mmol/L [facility] Anion Gap 12 12 - 20 [facility] Urea Nitrogen (BUN) 24(H) 9 - 16 mg/dL [facility] Creatinine, Serum 1.43(H) 0.5 - 1.4 mg/dL [facility] Creatinine Clr Calc Pharmacy 59.8 [facility] Comment:eGFR (calculated fro m the MDRD study equation) and eCrCl(calculated from the Cockcroft-Gault equation) are based ondifferent parameters and may not yield comparable results.If eCrCl result is absurd, please check patient'sheight/weight. Estimated Glomerular Filt Rate 50 [facility] Comment:Chronic Kidney Disea se: Estimated GFR < 60 mL/min/1.30a1Qmwqem Kidney Disease: Estimated GFR < 15 mL/min/1.73m2 Glucose 107 60 - 115 mg/dL [facility] Calcium 9.1 8.4 - 10.2 mg/dL [facility] Bilirubin, Total 0.6 0.0 - 1.0 mg/dL [facility] Aspartate Amino Transferase 29 5 - 37 U/L [facility] Alanine Aminotransferase 21 0 - 40 U/L [facility] Total Protein 8.0 6.5 - 8.0 g/dL [facility] Albumin Level 4.1 3.5 - 5.0 g/dL [facility] Alkaline Phosphatase 116 39 - 117 U/L [facility] 12/14/2024 12:2 7 PM EDT 12/14/2024 12:29 PM EDT us Generic External Data Provider LAB BLOOD ORDERAB LES Final Result Performing Organization Address City/[facility]/ZIP Co de Phone Number [facility] [address] [place] [address] [phone] * (ABNORMAL) Prothrombin Time-INR (12/12/2024) Only the most recent of13 resultswithin the time period is included. INR 6.60(HC) 2.50 - 3.50 EXTERNAL LAB Protime EXTERNAL LAB Blood Venous blood specimen / Unknown us Nathalie Hsu MD LAB BLOOD ORDERABLES Final Result EXTERNAL LAB * US Abdomen Complete (12/01/2024 6:46 AM EDT) Anatomical Region Laterality Modality Abdomen Ultrasound 12/01/2024 6:46 AM EDT Narrative 12/01/2024 6:48 AM EDT [place] [address] Ultrasound Report Signed Patient: Omid Caballero MR#: [id number] 14 : 1960 Acct:[id number] Age/Sex: 64 / M ADM Date: 11/30/24 Loc: HO.US Attending Dr: Lisbeth Johnson MD Ordering Physician: Lisbeth Johnson MD Date of Service: 11/30/24 Procedure(s): US abdomen complete Accession Number(s): [id number] cc: Nathalie Hsu MD; Lisbeth Johnson MD CLINICAL HISTORY: K70.9 - Alcoholic liver disease, unspecified US abdomen complete with duplex and color Doppler Comparison: CT/SR - CT ABDOMEN PELVIS WO IV CON - 08/04/24 15:07 EDT US/SR - US ABDOMEN - 04/14/24 13:02 EST Findings: Pancreas aorta and IVC obscured by bowel gas. Liver normal size and diffusely echogenic. Right lobe 14.0 cm length. Focal fatty sparing near the gallbladder fossa. Common duct 4.0 mm diameter. Physiologic distention of the gallbladder. No gallstones or sludge. No gallbladder wall thickening. No pericholecystic fluid. No sonographic Doyle sign. Main portal vein antegrade. Right kidney normal size, 10.2 cm in length. Normal cortical width and echotexture. Stable renal cyst lower pole measuring 6 x 6 x 5 mm.No nephrolithiasis. No hydronephrosis. Left kidney normal, 11.2 cm in length. Normal cortical width and echotexture. No solid or cystic renal masses. Spleen measures 10.1 cm. No splenic masses. No ascites. No lymphadenopathy. Impression: 1. Hepatic steatosis with focal fatty sparing. MRI would be confirmatory. 2. Bowel gas obscures midline structures. 3. Stable renal cortical cyst. This document has been electronically signed by: Rich Armas MD on 12/01/2024 06:46:41 Dictated By: Rich Armas MD Signed By: <Electronically signed by Rich Armas MD in OV> 12/01/24646 DD/ 5 TD/TT: 12/01/24645 Powder Mixer: Procedure Note Donotuseinterpreter, Image - 12/01/2024 [place] [address] Ultrasound Report Signed Patient: Mandi Caballero#: [id number] 14 : 1960cct:[id number] Age/Sex: 64 / MADM Date: 11/30/24 Loc: HO.US Attending Dr: Lisbeth Johnson MD Ordering Physician: Lisbeth Johnson MD Date of Service: 11/30/24 Procedure(s): US abdomen complete Accession Number(s): [id number] cc: Nathalie Hsu MD; Lisbeth Johnson MD CLINICAL HISTORY: K70.9 - Alcoholic liver disease, unspecified US abdomen complete with duplex and color Doppler Comparison: CT/SR - CT ABDOMEN PELVIS WO IV CON - 08/04/24 15:07 EDT US/SR - US ABDOMEN - 04/14/24 13:02 EST Findings: Pancreas aorta and IVC obscured by bowel gas. Liver normal size and diffusely echogenic. Right lobe 14.0 cm length. Focal fatty sparing near the gallbladder fossa. Common duct 4.0 mm diameter. Physiologic distention of the gallbladder. No gallstones or sludge. No gallbladder wall thickening. No pericholecystic fluid. No sonographic Doyle sign. Main portal vein antegrade. Right kidney normal size, 10.2 cm in length. Normal cortical width and echotexture. Stable renal cyst lower pole measuring 6 x 6 x 5 mm.No nephrolithiasis. No hydronephrosis. Left kidney normal, 11.2 cm in length. Normal cortical width and echotexture. No solid or cystic renal masses. Spleen measures 10.1 cm. No splenic masses. No ascites. No lymphadenopathy. Impression: 1. Hepatic steatosis with focal fatty sparing. MRI would be confirmatory. 2. Bowel gas obscures midline structures. 3. Stable renal cortical cyst. This document has been electronically signed by: Rich Armas MD on 12/01/2024 06:46:41 Dictated By: Rich Armas MD Signed By: <Electronically signed by Rich Armas MD in OV> 12/01/2447 DD/ 5 TD/TT: 12/01/24645 Powder Mixer: [facility] External Provider IMG US PROCEDURES Edited Result - Final * (ABNORMAL) Basic Metabolic Panel (11/29/2024 11:20 AM EDT) Only the most recent of2 resultswithin the time period is included. Sodium 136 135 - 145 mmol/L [facility] Potassium 4.0 3.3 - 5.1 mmol/L [facility] Chloride 107 96 - 108 mmol/L [facility] Carbon Dioxide 20(L) 22 - 29 mmol/L [facility] Anion Gap 13 12 - 20 [facility] Urea Nitrogen (BUN) 19(H) 9 - 16 mg/dL [facility] Creatinine, Serum 1.31 0.5 - 1.4 mg/dL [facility] Estimated Glomerular Filt Rate 55 [facility] Comment:Chronic Kidney Disea se: Estimated GFR < 60 mL/min/1.66f7Foixab Kidney Disease: Estimated GFR < 15 mL/min/1.73m2 Glucose 127(H) 60 - 115 mg/dL [facility] Calcium 9.1 8.4 - 10.2 mg/dL [facility] 11/29/2024 11:2 0 AM EDT 11/29/2024 1:04 PM EDT Nathalie Hsu MD LAB BLOOD ORDERABLES Final Result [facility] [address] [place] [address] [phone] * Cologuard?? colon cancer screening (12/30/2023 1:30 AM EDT) Cologuard Result Negative Negative 01/05/20 24 1:07 AM EDT [employer] (CLIA #:[id number]) Comment: NEGATIVE TEST RESULT. A negative Cologuard [...] (Tien Landeros al, N Engl J Med 2014;370(14):8513-3858) The normal value (reference range) for this assay is negative. COLOGUARD RE-SCREENING RECOMMENDATION: Periodic colorectal cancer screening is an important part of preventive healthcare for asymptomatic individuals at average risk for colorectal cancer. Following a negative Cologuard result, the [place] [employer] Society and U.S. Multi-Society Task Force screening guidelines recommend a Cologuard re-screening interval of 3 years. References: [place] [employer] Guideline for Colorectal Cancer Screening: https://www.cancer.org/cancer/lpbhk-hukqiw-xnwoik/iwrqaszxu-wknjyrpno-irbjubp/ac s-rec ommendations.html.; Honorio DK, Lita CR, Luba JamesK, Colorectal Cancer Screening: Recommendations for Physicians and Patients from the U.S. Multi-Society Task Force on Colorectal Cancer Screening , Am J Gastroenterology 2017; 112:1935-5548. TEST DESCRIPTION: Composite algorithmic analysis of stool [...] (Tien Landeros al, N Engl J Med 2014;370(14):9581-9854.) Cologuard may produce a false negative or false positive result (no colorectal cancer or precancerous polyp present at colonoscopy follow up). A negative Cologuard test result does not guarantee the absence of CRC or advanced adenoma (pre-cancer). The current Cologuard screening interval is every 3 years. ([place] [employer] Society and U.S. Multi-Society Task Force). Cologuard performance data in a 10,000 patient pivotal study using colonoscopy as the reference method can be accessed at the following location: www.[employer]/results. Additional description of the Cologuard test process, warnings and precautions can be found at www.GarpunogQuixeyrd.com. Stool specimen (specimen) Rectal contents / Unknown 12/30/2023 1:30 AM EDT 01/01/2024 3:30 PM EDT Nathalie Hsu MD LAB MOLECULAR DIAGNOSTICS ORDERABLES Final Result [employer] [facility] (CLIA #:[id number]) [address] [place] [address], * Hepatitis C Antibody with Reflex to HCV, RNA, Quantitative, Real-Time PCR (08/10/2022 11:24 AM EDT) Hepatitis C Antibody NON-REACT KG NON-REACT KG [facility] [place] [facility] Index 0.13 <1.00 [facility] [place] [facility] Comment: HCV antibody was non-reactive. There is no laboratory evidence of HCV infection. In most cases, no further action is required. However, if recent HCV exposure is suspected, a test for HCV RNA (test code 77369) is suggested. For additional information please refer to http://Audioscribe.[employer]/faq/IZH25g1 (This link is being provided for informational/ educational purposes only.) Blood Venous blood specimen / Unknown 08/10/2022 11:24 AM EDT 08/10/2022 11:25 AM EDT Narrative [facility] - 08/16/2022 12:40 AM EDT FASTING:NO FASTING: NO Nathalie Hsu MD LAB BLOOD ORDERABLES Final Result [facility] [address], [place] [address] [facility] [address] [place] [address] * HIV-1/2 Antigen and Antibodies, Fourth Generation, with Reflexes (08/10/2022 11:24 AM EDT) HIV Antigen/Antibody, 4th Generation NON-REAC TIVE NON-REAC TIVE [facility] [place] [facility] Comment: HIV-1 antigen and HIV-1/HIV-2 antibodies [...] purpose. For additional information please refer to http://Audioscribe.[employer]Beam/faq/WJM751 (This link is being provided for informational/ educational purposes only.) The performance of this assay has not been clinically validated in patients less than 2 years old. Blood Venous blood specimen / Unknown 08/10/2022 11:24 AM EDT 08/10/2022 11:25 AM EDT Narrative [facility] - 08/16/2022 12:40 AM EDT FASTING:NO FASTING: NO Nathalie Hsu MD LAB BLOOD ORDERABLES Final Result [facility] [address], [place] [address] [facility] [place] [facility] [address] [place] [address] * Lipid Panel, Standard (08/10/2022 11:24 AM EDT) [facility] Signature Cholesterol, Total 161 <200 mg/dL [facility] [place] [facility] HDL Cholesterol 62 > OR = 40 mg/dL [facility] [place] [facility] Triglycerides 109 <150 mg/dL [facility] [place] [facility] LDL Cholesterol 80 mg/dL (calc) [facility] [place] [facility] Comment: Reference range: <100 Desirable range <100 mg/dL for primary prevention; <70 mg/dL for patients with CHD or diabetic patients with > or = 2 CHD risk factors. LDL-C is now calculated using the Anthony-Pascual calculation, which is a validated novel method providing better accuracy than the Friedewald equation in the estimation of LDL-C. Anthony SS et al. FLAKITA. 2013;310(19): 2811-6840 (http://education.[employer]/faq/SFN363) Chol/HDLC Ratio 2.6 <5.0 (calc) [facility] [place] [facility] Non-HDL Cholesterol 99 <130 mg/dL (calc) [facility] Comment: For patients with diabetes plus 1 major ASCVD risk factor, treating to a non-HDL-C goal of <100 mg/dL (LDL-C of <70 mg/dL) is considered a therapeutic option. Blood Venous blood specimen / Unknown 08/10/2022 11:24 AM EDT 08/10/2022 11:25 AM EDT Narrative [facility] - 08/16/2022 12:40 AM EDT FASTING:NO FASTING: NO Nathalie Hsu MD LAB BLOOD ORDERABLES Final Result [facility] [address] [facility], [place] [address] [facility] [address] [place] [address] * Hm Colonoscopy (03/05/2012) Colonoscopy Dr. Zhang us Historical Provider MD HEALTH MAINTENANCE Final Result from Last 3 Months or Most Recently Relevant to Health Maintenance Insurance [facility] C3 DENTAL-[facility] MEDICAID STAND ADULT Advance Directives Documents on File Type Date Recorded Patient Station Agent Expl anation Advance Directives and Living Will 06/10/2023 1:14 PM Health Care Proxy Care Teams Rail Track Layer Relationship Specialty Start Date End Date [place], MD Nathalie [address] [place] [address] PCP - General Family Medicine 09/27/13 Shannan Barrow, RN [address] [place] [address] Registered Nurse 02/29/24 Lisbeth Johnson [address] [place] [address] 3rd [place] [address] Gastroenterology 03/15/24 Tonya Poole Platform AttendantRadiology Rn 01/19/24 Sherin ([facility]) Registered Nurse 02/29/24 MD Enoc Louise and [facility] [address] [place] [address] Cardiology 03/10/24 Omid Vincent Psychiatry 03/15/24
--- OUTSIDE RECORDS SUMMARY | 2024-12-14 20:28 | XMS_ITS | Encounter Summary ---
Author Organization [employer] [facility] Address [address] [facility] 7t [place] [address] Care Team Providers Care Pediatric Physical Therapy Assistant Name Role Phone Nathalie Hsu MD Primary Care Provider [phone] Shannan Barrow RN Unavailable [phone] Lisbeth Johnson Unavailable Encounter Details Date Type Department Care Team ([facility] Contact Info) Description 05/12/[address] [facility] [address] [place] [phone] Nathalie Hsu MD [address] [place] [address] [phone] Social History Tobacco Use Types Packs/Day Years [...] Care Team ([facility] Contact Info) Description 12/20/2024 2:00 PM EDT Office Visit [facility] [address] [place] [address], [place] [address] Nathalie Hsu MD [address] [place] [address] 01/01/2025 9:00 AM EDT Office Visit [facility] OPTOMETRY [address] [place] [address] SethZabrina funes, OD [address] [place] [address] 01/08/2025 10:15 AM EDT Office Visit [facility] ADULT DENTAL [address] [place] [address] Ulises, Chiquita [address] [place] [address] 02/16/2025 1:15 PM EST Office Visit [facility] [address] [place] [address] Renny Holloway MD [address] [place] [address] documented as of this encounter Procedures Procedure [...] documented as of this encounter Care Teams Pediatric Physical Therapy Assistant Relationship Specialty Start Date End Date Nathalie Hsu MD [address] [place] [address] PCP - General Family Medicine 09/27/13 Shannan Barrow, KAHI [address] [place] [address] Registered Nurse 02/29/24 Lisbeth Johnson [address] [place] [address] Drive 3rd [place] [address] Gastroenterology 03/15/24 Tonya Poole Hotel Room AttendantPaper Roller 01/19/24 Sherin ([facility]) Registered Nurse 02/29/24 Marcos Verdin MD [place] and [facility] [address] [place] [address] Cardiology 03/10/24 Omid Vincent Psychiatry 03/15/24 documented as of this encounter
--- OUTSIDE RECORDS SUMMARY | 2024-12-14 20:28 | XMS_ITS | Encounter Summary ---
Author Organization [employer] Address [address] [facility] [address] 7t [place] [address] Care Team Providers Care Scenery Builder Name Role Phone Nathalie Hsu MD Primary Care Provider [phone] Shannan Barrow RN Unavailable [phone] Lisbeth Johnson Unavailable Reason for Visit * Reason Onset Date Comments Med Refill 03/09/2024 Encounter Details Date Type Department Care Team (Late st Contact Info) Description 03/09/2024 Telephone [facility] [address] [place] [address] Nathalie Hsu MD [address] [place], [place] [phone] Med Refill Social History Tobacco Use Types [...] Miscellaneous Notes * Telephone Encounter - Bethany Roberosn LPN - 03/09/2024 9:13 AM EST Medication was sent to [facility] on 12/13/23 #60 with 3 refills. * Telephone Encounter - Alf Avilez - 03/09/2024 9:07 AM EST TC from pt requesting medication refill. Medications needing refill : melatonin 5 MG tablet To be sent to: [facility] documented in this encounter Plan of Treatment Upcoming Encounters Date Type Department Care Team (Late st Contact Info) Description 12/20/2024 2:00 PM EDT Office Visit [facility] [address] [place] [address] Nathalie Hsu MD [address] [place] [address] 01/01/2025 9:00 AM EDT Office Visit [facility] OPTOMETRY [address] [place] [address] SethAshutosh funesn, OD [address] [place] [address] 01/08/2025 10:15 AM EDT Office Visit [facility] ADULT DENTAL [address] [place] [address] Ulises, Chiquita [address] [place] [address] 02/16/2025 1:15 PM EST Office Visit [facility] MEDICINE [address] [place] [address] Renny Holloway MD [address] [place] [address] documented as of this encounter Visit Diagnoses Not on filedocumented in this encounter Additional Health Concerns Assessment Noted Time PHQ-9 Depression Total Score: 0 06/09/19 9:13 AM EST documented as of this encounter Care Teams Scenery Builder Relationship Specialty Start Date End Date Nathalie Hsu MD [address] [place] [address] PCP - General Family Medicine 09/27/13 Shannan Barrow, KHAI [address] [place] [address] Registered Nurse 02/29/[address] [place] [address] Gastroenterology 03/15/24 Tonya Poole Spray Gun SizerRecord Label Intern 01/19/24 Sherin ([facility]) Registered Nurse 02/29/24 Marcos Verdin MD [place] and [facility] [address] [place] [address] Cardiology 03/10/24 Omid Vincent Psychiatry 03/15/24 documented as of this encounter
--- OUTSIDE RECORDS SUMMARY | 2024-12-14 20:28 | XMS_ITS | Encounter Summary ---
Author Organization [employer] Address [address] [facility] 7t [place] [address] Care Team Providers Care Food Mixer Assembler Name Role Phone Nathalie Hsu MD Primary Care Provider [phone] Shannan Barrow RN Unavailable [phone] Lisbeth Johnson Unavailable Encounter Details Date Type Department Care Team (Late st Contact Info) Description 08/11/2023 Telephone [facility] [address] [place], [place] [phone] Nathalie Hsu MD [address] [place], [place] [phone] Social History Tobacco Use Types Packs/Day Years [...] EDT Office Visit [facility] [address] [place] [address] Nathalie Hsu MD [address] [place] [address] 01/01/2025 9:00 AM EDT Office Visit [facility] OPTOMETRY [address] [place] [address] SethZabrina funes, OD [address] [place] [address] 01/08/2025 10:15 AM EDT Office Visit [facility] ADULT DENTAL [address] [place] [address] Ulises Chiquita [address] [place] [address] 02/16/2025 1:15 PM EST Office Visit [facility] [address] [place] [address] Renny Holloway MD [address] [place] [address] documented as of this encounter Visit Diagnoses Not on filedocumented in this encounter Additional Health Concerns Assessment Noted Time PHQ-9 Depression Total Score: 0 06/09/19 24 9:13 AM EST documented as of this encounter Care Teams Food Mixer Assembler Relationship Specialty Start Date End Date Nathalie Hsu MD [address] [place] [address] PCP - General Family Medicine 09/27/13 Shannan Barrow, RN [address] [place] [address] Registered Nurse 02/29/24 Lisbeth Johnson [address] [place] [address] 3rd [place] [address] Gastroenterology 03/15/24 Tonya Poole Mud LoggerTray Casting Machine Operator 01/19/24 Sherin ([facility]) Registered Nurse 02/29/24 MD Wilbert [address] and [facility] [address] [place] [address] Cardiology 03/10/24 Omid Vincent Psychiatry 03/15/24 documented as of this encounter
--- OUTSIDE RECORDS SUMMARY | 2024-12-14 20:28 | XMS_ITS | Encounter Summary ---
Author Organization [employer] Address [address] [facility] [address] [place] [address] Care Team Providers Care Mixing Roll Operator Name Role Phone Nathalie Hsu MD Primary Care Provider [phone] Shannan Barrow RN Unavailable [phone] Lisbeth Johnson Unavailable Reason for Visit * Reason Comments Med Refill Encounter Details Date Type Department Care Team (Late st Contact Info) Description 08/14/2024 Refill [facility] [address] [place] [address] Nathalie Hsu MD [address] [place], [place] [phone] Alcoholic liver disease (CMS/HCC) Social History Tobacco [...] Description 12/20/2024 2:00 PM EDT Office Visit [facility] [address] [place] [address] Nathalie Hsu MD [address] [place] [address] 01/01/2025 9:00 AM EDT Office Visit [facility] [address] [place] [address] Zabrina Ann OD [address] [place] [address] 01/08/2025 10:15 AM EDT Office Visit [facility] [address] [place] [address] Chiquita Montgomery [address] [place] [address] 02/16/2025 1:15 PM EST Office Visit [facility] [address] [place] [address] Renny Holloway MD [address] [place] [address] documented as of this encounter Visit Diagnoses Diagnosis Alcoholic liver disease (CMS/HCC) Unspecified alcoholic liver damage documented in this encounter Additional Health Concerns Assessment Noted Time PHQ-9 Depression Total Score: 0 06/09/19 9:13 AM EST documented as of this encounter Care Teams Mixing Roll Operator Relationship Specialty Start Date End Date Nathalie Hsu MD [address], [place] [phone] PCP - General Family Medicine 09/27/13 Shannan Barrow, KHAI [address] [place] [id number] Registered Nurse 02/29/24 Lisbeth Johnson [address] [place] [address] 3rd [place] [address] Gastroenterology 03/15/24 Tonya Poole Systems ManagerConcrete Stone Fabricator 01/19/24 Sherin ([facility]) Registered Nurse 02/29/24 Marcos Verdin MD [place] [facility] [address] [place] [address] Cardiology 03/10/24 Omid Vincent Psychiatry 03/15/24 documented as of this encounter
--- OUTSIDE RECORDS SUMMARY | 2024-12-14 20:28 | XMS_ITS | Encounter Summary ---
Author Organization [employer] Address [address] [place] [address], [place] [address] Care Team Providers Care Loader Semiconductor Dies Name Role Phone Nathalie Hsu MD Primary Care Provider Shannan Barrow RN Unavailable [phone] Lisbeth Johnson Unavailable Encounter Details Date Type Department Care Team (Late st Contact Info) Description 11/27/2022 Orders Only [facility] [address] [place] [phone] Jose Dockery [address] [place] [phone] Social History Tobacco Use Types Packs/Day Years [...] PM EDT Office Visit [facility] [address] [place] [phone] Nathalie Hsu MD [address] [place], [place] [phone] 01/01/2025 9:00 AM EDT Office Visit [facility] [address] [place] [address] Zabrina Ann OD [address] [place] [address] 01/08/2025 10:15 AM EDT Office Visit [facility] [address] [place] [address] Ulises, Chiquita [address] [place] [address] 02/16/2025 1:15 PM EST Office Visit [facility] [address] [place] [address] Renny Holloway MD [address] [place] [address] documented as of this encounter Visit Diagnoses Not on filedocumented in this encounter Additional Health Concerns Assessment Noted Time PHQ-9 Depression Total Score: 6 05/08/19 23 10:33 AM EST documented as of this encounter Care Teams Loader Semiconductor Dies Relationship Specialty Start Date End Date Nathalie Hsu MD [address] [place] [address] PCP - General Family Medicine 09/27/13 Shannan Barrow, RN [address] [place] [address] Registered Nurse 02/29/24 Lisbeth Johnson [address] [place] [address] Drive 3rd [place] [address] Gastroenterology 03/15/24 Tonya Poole Medical Physics ResearcherLozenge Maker 01/19/24 Sherin ([facility]) Registered Nurse 02/29/24 Marcos Verdin MD [place] [facility] [address] [place] [address] Cardiology 03/10/24 Omid Vincent Psychiatry 03/15/24 documented as of this encounter
[2024-12-14 21:00] LABS: Cannabinoid Screen Urine Not Detected (Not Detect)
[2024-12-14] MEDS: iohexoL 350 MG/ML 100 ML INFUS..BTL 85 ML IV (21:21)
[2024-12-14 21:22] LABS: COVID-19 Test Negative (Negative); IDNOW Serial# 152EDE1D
[2024-12-14 23:45] VITALS: BP 155/75; PULSE 93; RESP 15; TEMP 36.8; O2SAT 93
[2024-12-15 00:26] VITALS: BP 155/75; PULSE 93; RESP 15; TEMP 36.8; O2SAT 93
== END 2024-12-15 00:27 | disposition home or self-care (01) ==
PROVIDERS: Physician Assistant Medical; Emergency Provider Emergency Medicine; PCP Family Medicine
DX: J69.0 Pneumonitis due to inhalation of food and vomit (principal); R10.9 Unspecified abdominal pain; R19.7 Diarrhea, unspecified; D64.9 Anemia, unspecified; I11.0 Hypertensive heart disease with heart failure; I50.22 Chronic systolic (congestive) heart failure; K70.30 Alcoholic cirrhosis of liver without ascites; Z95.0 Presence of cardiac pacemaker; Z79.01 Long term (current) use of anticoagulants; Z79.899 Other long term (current) drug therapy; Z53.29 Procedure and treatment not carried out because of patient's decision for other reasons
CPT/HCPCS: 36415; 74177; 80053; 80307; 83690; 83735; 84484; 85025; 87635; 93005; 96361; 96374; 96375; 99284; 99285; J0696; J2270; J2405; Q9967

== ENCOUNTER → 2024-12-14 12:12 | Outpatient (BNV) | payer MEDICAID, SELFPAY | PROVIDERS: PCP Family Medicine; Visit Provider Internal Medicine Cardiovascular Disease | DX: R94.31 Abnormal electrocardiogram [ECG] [EKG] (principal); Z95.0 Presence of cardiac pacemaker | CPT/HCPCS: 93010 ==

== ENCOUNTER → 2024-12-14 20:06 | Outpatient (BNV) | payer MEDICAID, SELFPAY | PROVIDERS: Emergency Provider Emergency Medicine; PCP Family Medicine; Visit Provider Radiology Diagnostic Radiology | DX: K52.89 Other specified noninfective gastroenteritis and colitis (principal) | CPT/HCPCS: 74177 ==

== ENCOUNTER 2024-12-15 12:16 | Emergency (ER) | payer MEDICAID, SELFPAY ==
--- NOTE | 2024-12-15 | ECG_ITS ---
Test Reason : CHEST PAIN Blood Pressure : */* mmHG Vent. Rate : 91 BPM Atrial Rate : 91 BPM P-R Int : 144 ms QRS Dur : 190 ms QT Int : 438 ms P-R-T Axes : 17 46 178 degrees QTcB Int : 538 ms Atrial-sensed ventricular-paced rhythm Abnormal ECG When compared with ECG of 14-Dec-2024 12:21, Vent. rate has increased by 4 bpm Referred By: Kayden Foss Electronically Signed By: EMILIE LEVY MD
--- NOTE | ~2024-12-15 | XR_ITS ---
EXAMINATION: XR CHEST CLINICAL INFORMATION: cough COMPARISON: August 18, 2024 TECHNIQUE: PA and lateral views FINDINGS: Pulmonary reticular pattern. No hyperinflation. No gross consolidation or pneumothorax. Blunting of the posterior costophrenic angles, minimal. A right-sided pacemaker with the 2 intact electrode leads, unchanged. Sternal wires with a heart valve prosthesis. Calcified plaque thoracic aortic arch. Tortuosity in the descending thoracic aorta. Cardiac mediastinal/size is normal. Osteopenia versus osteoporosis. Multilevel thoracolumbar spondylosis. Degenerative changes in the shoulders. Traumatic deformity left clavicle near the acromioclavicular joint with callus formation. Degenerative changes in the right shoulder.. XR/XR chest 2V IMPRESSION: Chronic interstitial lung disease without acute airspace disease. Old traumatic deformity left clavicle. Probable pleural thickening. Osteopenia versus osteoporosis. Electronically signed by: Mehul Cordova MD 12/15/2024 01:19 PM EDT
[2024-12-15 12:21] VITALS: BP 138/85; PULSE 94; RESP 20; TEMP 36.8; O2SAT 99; BMI 31.5
--- NOTE | 2024-12-15 12:38 | ED.CHESTPAIN ---
HPI - Chest Pain General Chief Complaint: Chest Pain Stated Complaint: CP PER EMS Time Seen by Provider: 12/15/24 12:20 Source: patient Mode of arrival: EMS Limitations: no limitations History of Present Illness HPI narrative: This is a 63 years old the patient with a history of alcohol abuse in the past he has a an aortic valve replacement mechanical along with ascending aortic root repair on warfarin, also status post pacemake dual-chamber for heart block. He was seen yesterday in the emergency department he was diagnosed with pneumonia was discharged with 2 antibiotic Levaquin and cefdinir the pneumonia was diagnosed with a CT scan of the abdomen and pelvis but no chest x-ray done presented to the ED complaining of nausea chest pain generalized malaise. He called 911 from the pharmacy MD complaint: chest pain Pertinent past history: other (Aortic valve replacement pacemaker) Onset (ago): day(s) (1) Onset: during rest Pain location: left chest Pain radiation: none Severity: moderate Relieving factors: nothing Exacerbating factors: nothing Associated symptoms: nausea and vomiting Related Data Home Medications ?Medication ?Instructions ?Recorded ?Confirmed melatonin 5 mg tablet 2 tab PO BEDTIME PRN insomnia 10/18/20 01/23/24 atorvastatin 20 mg tablet 20 mg PO DAILY 11/18/20 01/23/24 blood pressure test kit-large #1 ea 11/18/20 02/09/23 lidocaine 5 % topical patch 1 patch topical DAILY 11/18/20 01/23/24 magnesium oxide 400 mg (241.3 mg 400 mg PO BID 11/18/20 01/23/24 magnesium) tablet pantoprazole 40 mg tablet,delayed 40 mg PO BID 11/18/20 01/23/24 release thiamine HCl (vitamin B1) 100 mg 100 mg PO DAILY 11/18/20 01/23/24 tablet olanzapine 5 mg tablet 1 tab PO BEDTIME 10/10/21 01/23/24 acetaminophen 500 mg tablet 500 mg PO BID PRN Mild Pain (Scale 05/11/22 01/23/24 Score 1-4) albuterol sulfate 90 mcg/actuation 2 puff inhalation Q4H PRN 05/11/22 01/23/24 aerosol inhaler (Ventolin HFA) Respiratory Distress buspirone 10 mg tablet 10 mg PO TID 05/11/22 01/23/24 sacubitril 24 mg-valsartan 26 mg 1 tab PO BID 06/12/22 01/23/24 tablet (Entresto) budesonide-formoterol HFA 160 2 puff inhalation BID 02/09/23 01/23/24 mcg-4.5 mcg/actuation aerosol inhaler (Symbicort) clopidogrel 75 mg tablet 75 mg PO DAILY 05/17/23 01/23/24 acamprosate 333 mg tablet,delayed 666 mg PO BID 09/15/23 01/23/24 release hydroxyzine pamoate 50 mg capsule 100 mg PO BEDTIME PRN insomnia 01/23/24 01/23/24 warfarin 5 mg tablet 5 mg PO DAILY 01/23/24 01/23/24 lactulose 10 gram/15 mL oral 30 ml PO TID 04/28/24 solution warfarin 10 mg tablet 10 mg PO DAILY 07/07/24 ferrous sulfate 325 mg (65 mg 325 mg PO QAM 07/28/24 iron) tablet,delayed release metoprolol succinate 25 mg 25 mg PO M 07/28/24 tablet,extended release 24 hr nicotine 14 mg/24 hr daily 1 patch topical [facility] 07/28/24 transdermal patch quetiapine 50 mg tablet 50 mg PO DAILY PRN 07/28/24 Previous Rx's ?Medication ?Instructions ?Recorded furosemide 40 mg tablet 40 mg PO DAILY #30 tabs 05/29/23 oxycodone 5 mg tablet 5 mg PO Q6H PRN pain #10 tabs 08/18/24 rifaximin 550 mg tablet (Xifaxan) 550 mg PO BID #60 tabs 09/14/24 magnesium oxide 500 mg capsule 500 mg PO DAILY #30 caps 11/18/24 cefdinir 300 mg capsule 300 mg PO Q12H #20 caps 12/14/24 levofloxacin 750 mg tablet 750 mg PO DAILY #9 tabs 12/14/24 ondansetron 4 mg disintegrating 4 mg PO Q8H PRN nausea and 12/15/24 tablet vomiting #14 tabs Allergies Allergy/AdvReac Type Severity Reaction Status Date / Time lorazepam (From ATIVAN) AdvReac Severe OPPOSITE Verified 12/15/24 12:24 EFFECT PSYCOTIC EFECTS Review of Systems Constitutional: Constitutional: Reports no additional constitutional complaints Cardiovascular: Cardiovascular: Reports no additional cardiovascular complaints [facility] Past Medical History [facility] Narrative: Aortic valve replacement on warfarin/status post pacemaker/alcohol abuse Onset Time:: 12:41 Medical History Sepsis Rhabdomyolysis EDGAR (acute kidney injury) Supratherapeutic INR Fall Acute hyponatremia Intracranial hemorrhage Coronary artery disease Chronic systolic CHF (congestive heart failure) Hypertension Short-segment Harrell's esophagus Pacemaker Skull fracture Alcoholic liver disease Cocaine abuse Alcohol abuse Surgical History Aortic valve replaced S/P CABG (coronary artery bypass graft) H/O aortic valve replacement History of esophagogastroduodenoscopy (EGD) Social History Social History Household Members: None Housing: Apartment Do you presently have visiting nurse or other home services: Yes (vna sheet rock taper helper) Alcohol intake: current Alcohol intake frequency: a few times a week Alcohol type: beer Comment: pt refused, to have assistance with ambulation, chair and bed alarm Patient Tobacco Use Status: Current everyday Tobacco user Tobacco use type: Cigarette Cigarette Packs Per Day: 1 Cigarettes Per Day: 20.0 Second Hand Smoke Exposure: No Substance Use Type: Marijuana Advance Directives: Yes Advance Directives on File: Yes Advance Directives Date on File: 10/11/21 Do you have a plan to hurt others: No Plan service: No Current occupational status: unemployed Physical Exam Exam: Exam: No acute distress Vital Signs: Vital Signs: Last Vital Signs Temp 97.9 F 12/15/24 18:22 Pulse 95 12/15/24 18:22 Resp 20 12/15/24 18:22 BP 150/74 H 12/15/24 18:22 Pulse Ox 100 12/15/24 18:22 O2 Del Method Room Air 12/15/24 18:22 BMI result Body Mass Index 31.5 Const: General: cooperative Nutritional Appearance: average body habitus Orientation/consciousness: patient oriented x3 Limitations: no limitations HEENT: Head: Yes normal to inspection Ears: hearing grossly normal bilaterally General nose exam: Normal external nose present Mouth: Normal oral and palatal mucosa present Neck: Neck: Yes normal visual inspection and Yes full ROM Resp: Effort & Inspection: normal respiratory effort Auscultation: clear to auscultation bilaterally Cardio: Jugular venous distension: no JVD Rate: regular rate Rhythm: regular rhythm GI: Inspection: Yes normal to inspection Palpation (GI): Soft to palpation, not firm, nontender and no guarding Percussion: Yes normal to percussion Auscultation: normal bowel sounds Skin: General skin exam: no rashes or lesions noted and elasticity normal Lesions: no lesions Neuro: General: patient oriented x3 Extrem: General: Yes normal to inspection and Yes full ROM Course Reevaluation(s) Reevaluation #1: signed out to Dr De La Rosa Time: 16:10 Medications Administered Discontinued Medications Generic Name Dose Route Start Last Admin Trade Name Jessenia PRN Reason Stop Dose Admin Al Hydroxide/Mg Hydroxide 30 ml 12/15/24 18:09 12/15/24 18:20 Magnesium Hydrox/Alum Hydrox 30 Ml Oral.Susp PO 12/15/24 18:10 30 ml ONCE ONE Administration Famotidine 20 mg 12/15/24 18:09 12/15/24 18:20 Famotidine/Pf 20 Mg/2 Ml Vial IVPUSH 12/15/24 18:10 20 mg ONCE ONE Administration Lactated Ringer's 1,000 mls @ 999 mls/hr 12/15/24 15:15 12/15/24 16:25 Lr IV 12/15/24 16:15 Infused .Q1H1M CAMMY Infusion Lidocaine HCl 15 ml 12/15/24 18:09 12/15/24 18:20 Lidocaine Hcl Viscous 2 % 15 Ml Solution MUCOUS MEM 12/15/24 18:10 15 ml ONCE ONE Administration Morphine Sulfate 4 mg 12/15/24 14:03 12/15/24 14:18 Morphine Sulfate 4 Mg/Ml Cartridge IVPUSH 12/15/24 14:04 4 mg ONCE ONE Administration Protocol Ondansetron HCl 4 mg 12/15/24 17:46 12/15/24 17:53 Ondansetron Hcl 4 Mg/2 Ml Vial IVPUSH 12/15/24 17:47 4 mg ONCE ONE Administration Medical Decision Making Medical Decision Making MDM Narrative: Patient is here complaining of chest pain general malaise we will obtain EKG and labs including INR Delta trop is flat, bicarb of noted 15 we will give him 1 LR prior to discharge Patient's bicarb did improve to 19. This is around his baseline bicarb level. On review of his previous lab work. Patient appears to be well. He does not appear to be acutely ill on my exam. Patient does drink alcohol daily. Patient is complaining of more nausea and vomiting. He states he has not drank for the past couple of days due to nausea and vomiting. I suspect he may have some alcoholic gastritis. Zofran will be prescribed the patient. GI cocktail will be provided the patient. Patient will be discharged home. Encouraged him to follow up with his primary care doctor. band bias machine operator was used for this encounter. Differential Diagnosis Differential Diagnoses: The differential diagnosis associated with the presentation includes Atypical chest pain/acute coronary syndrome Admission/Observation Consideration of admission/observation: Escalation of care including admission/observation considered Lab Data MDM Lab Attestation statement: I reviewed the patient's lab results. 12/15/24 12:39 12/15/24 17:00 Labs: Lab Results 12/15/24 12/15/24 12/15/24 Range/Units 12:39 12:40 14:17 WBC 8.8 (4.8-10.8) X10*3/uL RBC 4.28 L (4.60-5.80) X10*6/uL Hgb 14.1 (14.0-18.0) g/dl Hct 40.8 L (42.0-52.0) % MCV 95.3 (80.0-98.0) fL MCH 32.9 (27.0-33.0) pg MCHC 34.6 (31.0-36.0) g/dl RDW 14.8 (11.0-16.0) % Plt Count 220 (160-400) X10*3/uL MPV 8.7 L (9.4-12.4) fL Immature Gran % (Auto) 0.9 H (0.0-0.4) % Neut % (Auto) 75.0 H (45-73) % Lymph % (Auto) 13.8 L (20-40) % Taylor % (Auto) 9.2 (2-11) % Eos % (Auto) 0.5 (0-4) % Baso % (Auto) 0.6 (0-2) % Lymph # (Auto) 1.2 (1.2-4.9) X10*3/uL Taylor # (Auto) 0.8 (0.1-1.2) X10*3/uL Eos # (Auto) 0.0 (0.0-0.4) X10*3/uL Baso # (Auto) 0.1 (0.0-0.2) X10*3/uL Abs Immat Gran (auto) 0.08 H (0.00-0.03) X10*3/uL Absolute Neuts (auto) 6.6 (2.0-8.3) x10*3/uL Absolute Nucleated RBC 0.000 (0.0-0.012) X10*3/uL Nucleated RBC % (auto) 0.0 (0.0-0.2) /100WBC PT 25.1 H D (10.9-12.4) SEC INR 2.2 H (0.9-1.1) Sodium 134 L (135-145) mmol/L Potassium 3.9 (3.3-5.1) mmol/L Chloride 110 H (96-108) mmol/L Carbon Dioxide 15 L (22-29) mmol/L Anion Gap 13 (12-20) BUN 15 (9-16) mg/dL Creatinine 1.00 (0.5-1.4) mg/dL Estim Creat Clear Calc 76.2 Estimated GFR > 60 Random Glucose 114 (60-115) mg/dL Calcium 8.7 (8.4-10.2) mg/dL Total Bilirubin 0.5 (0.0-1.0) mg/dL AST 26 (5-37) U/L ALT 18 (0-40) U/L Alkaline Phosphatase 107 (39-117) U/L Troponin I High Sens 3.9 4.0 (<3.5-35.0) ng/L Total Protein 7.6 (6.5-8.0) g/dL Albumin 3.9 (3.5-5.0) g/dL Urine Opiates Screen POSITIVE H (Not Detect) Ur Buprenorphine Scrn Not Detected (Not Detect) ng/mL Ur Oxycodone Screen Not Detected (Not Detect) ng/mL Urine Methadone Screen Not Detected (Not Detect) ng/mL Urine Fentanyl Screen Not Detected (Not Detect) Ur Barbiturates Screen Not Detected (Not Detect) Ur Phencyclidine Scrn Not Detected (Not Detect) Ur Amphetamines Screen Not Detected (Not Detect) U Benzodiazepines Scrn Not Detected (Not Detect) Urine Cocaine Screen Not Detected (Not Detect) U Marijuana (THC) Screen Not Detected (Not Detect) Ethyl Alcohol < 10 mg/dL 12/15/24 Range/Units 17:00 WBC (4.8-10.8) X10*3/uL RBC (4.60-5.80) X10*6/uL Hgb (14.0-18.0) g/dl Hct (42.0-52.0) % MCV (80.0-98.0) fL MCH (27.0-33.0) pg MCHC (31.0-36.0) g/dl RDW (11.0-16.0) % Plt Count (160-400) X10*3/uL MPV (9.4-12.4) fL Immature Gran % (Auto) (0.0-0.4) % Neut % (Auto) (45-73) % Lymph % (Auto) (20-40) % Taylor % (Auto) (2-11) % Eos % (Auto) (0-4) % Baso % (Auto) (0-2) % Lymph # (Auto) (1.2-4.9) X10*3/uL Taylor # (Auto) (0.1-1.2) X10*3/uL Eos # (Auto) (0.0-0.4) X10*3/uL Baso # (Auto) (0.0-0.2) X10*3/uL Abs Immat Gran (auto) (0.00-0.03) X10*3/uL Absolute Neuts (auto) (2.0-8.3) x10*3/uL Absolute Nucleated RBC (0.0-0.012) X10*3/uL Nucleated RBC % (auto) (0.0-0.2) /100WBC PT (10.9-12.4) SEC INR (0.9-1.1) Sodium 136 (135-145) mmol/L Potassium 3.9 (3.3-5.1) mmol/L Chloride 110 H (96-108) mmol/L Carbon Dioxide 19 L (22-29) mmol/L Anion Gap 11 L (12-20) BUN 14 (9-16) mg/dL Creatinine 0.90 (0.5-1.4) mg/dL Estim Creat Clear Calc 84.7 Estimated GFR > 60 Random Glucose 100 (60-115) mg/dL Calcium 8.6 (8.4-10.2) mg/dL Total Bilirubin (0.0-1.0) mg/dL AST (5-37) U/L ALT (0-40) U/L Alkaline Phosphatase (39-117) U/L Troponin I High Sens (<3.5-35.0) ng/L Total Protein (6.5-8.0) g/dL Albumin (3.5-5.0) g/dL Urine Opiates Screen (Not Detect) Ur Buprenorphine Scrn (Not Detect) ng/mL Ur Oxycodone Screen (Not Detect) ng/mL Urine Methadone Screen (Not Detect) ng/mL Urine Fentanyl Screen (Not Detect) Ur Barbiturates Screen (Not Detect) Ur Phencyclidine Scrn (Not Detect) Ur Amphetamines Screen (Not Detect) U Benzodiazepines Scrn (Not Detect) Urine Cocaine Screen (Not Detect) U Marijuana (THC) Screen (Not Detect) Ethyl Alcohol mg/dL Independent Interpretation I performed an independent interpretation of an: EKG Interpretation: Paced rhythm rate 91 Discharge Plan Discharge Clinical Impression: Chest wall pain Patient Disposition: Home, Self-Care Prescriptions: New ondansetron 4 mg tablet,disintegrating 4 mg PO Q8H PRN (Reason: nausea and vomiting) Qty: 14 0RF No Action Xifaxan 550 mg tablet 550 mg PO BID Qty: 60 3RF melatonin 5 mg tablet 2 tab PO BEDTIME PRN (Reason: insomnia) olanzapine 5 mg tablet 1 tab PO BEDTIME acetaminophen 500 mg Tablet 500 mg PO BID PRN (Reason: Mild Pain (Scale Score 1-4)) buspirone 10 mg Tablet 10 mg PO TID albuterol sulfate [Ventolin HFA] 90 mcg/actuation Hfa Aerosol Inhaler 2 puff INHALATION Q4H PRN (Reason: Respiratory Distress) acamprosate 333 mg tablet,delayed release (DR/EC) 666 mg PO BID hydroxyzine pamoate 50 mg capsule 100 mg PO BEDTIME PRN (Reason: insomnia) warfarin 5 mg tablet 5 mg PO DAILY magnesium oxide 500 mg capsule 500 mg PO DAILY Qty: 30 0RF cefdinir 300 mg capsule 300 mg PO Q12H Qty: 20 0RF levofloxacin 750 mg tablet 750 mg PO DAILY Qty: 9 0RF budesonide-formoterol [Symbicort] 160-4.5 mcg/actuation HFA aerosol inhaler 2 puff inhalation BID clopidogrel 75 mg tablet 75 mg PO DAILY furosemide 40 mg Tablet 40 mg PO DAILY Qty: 30 0RF Protocol: Hold for SBP< HOLD for SBP < : 90 oxycodone 5 mg tablet 5 mg PO Q6H PRN (Reason: pain) Qty: 10 0RF Rx Instructions: Partial Fill upon patient request. pantoprazole 40 mg tablet,delayed release (DR/EC) 40 mg PO BID magnesium oxide 400 mg (241.3 mg magnesium) tablet 400 mg PO BID thiamine HCl (vitamin B1) 100 mg tablet 100 mg PO DAILY atorvastatin 20 mg tablet 20 mg PO DAILY (DME) blood pressure test kit-large Kit See Rx Instructions .ROUTE DIRECTED Qty: 1 Rx Instructions: As directed lidocaine 5 % adhesive patch,medicated 1 patch topical DAILY Protocol: Apply to: Apply to: AFFECTED AREA Entresto 24-26 mg tablet 1 tab PO BID lactulose 10 gram/15 mL solution 30 ml PO TID quetiapine 50 mg tablet 50 mg PO DAILY PRN nicotine 14 mg/24 hr patch 24 hour 1 patch topical QAM metoprolol succinate 25 mg tablet extended release 24 hr 25 mg PO QAM ferrous sulfate 325 mg (65 mg iron) tablet,delayed release (DR/EC) 325 mg PO QAM warfarin 10 mg tablet 10 mg PO DAILY Print Language: Sri [place]ankan
[2024-12-15 12:52] LABS: MANUAL DIFF FLAG NO
[2024-12-15 12:55] LABS: Hematocrit 40.8 % (42.0-52.0); Hemoglobin 14.1 g/dl (14.0-18.0); Imm Gran Abs Auto 0.08 X10*3/uL (0.00-0.03); Imm Gran Pct Auto 0.9 % (0.0-0.4); Lymphocytes Absolute Auto 1.2 X10*3/uL (1.2-4.9); Mean Corpuscular HGB Conc 34.6 g/dl (31.0-36.0); Mean Corpuscular Hemoglobin 32.9 pg (27.0-33.0); Mean Corpuscular Volume 95.3 fL (80.0-98.0); NRBC Abs Auto 0.000 X10*3/uL (0.0-0.012); NRBC Pct Auto 0.0 /100WBC (0.0-0.2); Platelet Count 220 X10*3/uL (160-400); Red Blood Count 4.28 X10*6/uL (4.60-5.80); White Blood Count 8.8 X10*3/uL (4.8-10.8)
[2024-12-15 13:02] LABS: INTERNATIONAL NORM RATIO 2.2 (0.9-1.1); Prothrombin Time 25.1 SEC (10.9-12.4)
[2024-12-15 13:09] LABS: Cannabinoid Screen Urine Not Detected (Not Detect)
[2024-12-15 13:11] LABS: Alanine Aminotransferase 18 U/L (0-40); Albumin Level 3.9 g/dL (3.5-5.0); Alkaline Phosphatase 107 U/L (39-117); Anion Gap 13 (12-20); Aspartate Amino Transferase 26 U/L (5-37); Blood Urea Nitrogen 15 mg/dL (9-16); Calcium 8.7 mg/dL (8.4-10.2); Carbon Dioxide 15 mmol/L (22-29); Chloride 110 mmol/L (96-108); Creatinine Clr Calc Pharmacy 76.2; Estimated Glomerular Filt Rate > 60; Potassium 3.9 mmol/L (3.3-5.1); Sodium 134 mmol/L (135-145); Total Protein 7.6 g/dL (6.5-8.0)
[2024-12-15 13:18] LABS: Troponin-I High Sensitivity 3.9 ng/L (<3.5-35.0)
[2024-12-15 14:12] VITALS: BP 138/76; PULSE 100; RESP 18; TEMP 36.9; O2SAT 97
[2024-12-15 14:55] LABS: Troponin-I High Sensitivity 4.0 ng/L (<3.5-35.0)
[2024-12-15 15:08] VITALS: BP 141/70; PULSE 87; RESP 22; O2SAT 96
[2024-12-15] MEDS: Lactated Ringers 1,000 ML 999 ML IV (15:17)
[2024-12-15 16:19] VITALS: BP 145/72; PULSE 92; RESP 20; TEMP 36.9; O2SAT 95
[2024-12-15 17:22] LABS: Anion Gap 11 (12-20); Blood Urea Nitrogen 14 mg/dL (9-16); Calcium 8.6 mg/dL (8.4-10.2); Carbon Dioxide 19 mmol/L (22-29); Chloride 110 mmol/L (96-108); Creatinine Clr Calc Pharmacy 84.7; Estimated Glomerular Filt Rate > 60; Potassium 3.9 mmol/L (3.3-5.1); Sodium 136 mmol/L (135-145)
[2024-12-15] MEDS: Magnesium Hydrox/Alum Hydrox 30 ML ORAL.SUSP PO (18:20)
[2024-12-15] MEDS: Lidocaine HCl Viscous 2 % 15 ML SOLUTION MUCOUS MEM (18:20)
[2024-12-15 18:22] VITALS: BP 150/74; PULSE 95; RESP 20; TEMP 36.6; O2SAT 100
[2024-12-15 18:26] VITALS: BP 150/74; PULSE 95; RESP 20; TEMP 36.6; O2SAT 100
== END 2024-12-15 18:36 | disposition home or self-care (01) ==
PROVIDERS: Emergency Medicine; Emergency Provider Student in an Organized Health Care Education/Training Program; PCP Family Medicine
DX: R07.89 Other chest pain (principal); R11.2 Nausea with vomiting, unspecified; R53.81 Other malaise; F10.10 Alcohol abuse, uncomplicated; I50.22 Chronic systolic (congestive) heart failure; Z95.0 Presence of cardiac pacemaker; Z79.01 Long term (current) use of anticoagulants; Z79.899 Other long term (current) drug therapy
CPT/HCPCS: 36415; 71046; 80048; 80053; 80307; 84484; 85025; 85610; 93005; 99285; J1308; J2270; J2405; J7120

== ENCOUNTER → 2024-12-15 12:24 | Outpatient (BNV) | payer MEDICAID, SELFPAY | PROVIDERS: Emergency Provider Emergency Medicine; PCP Family Medicine; Visit Provider Radiology Diagnostic Radiology | DX: J84.9 Interstitial pulmonary disease, unspecified (principal) | CPT/HCPCS: 71046 ==

== ENCOUNTER → 2024-12-15 12:27 | Outpatient (BNV) | payer MEDICAID, SELFPAY | PROVIDERS: Emergency Provider Emergency Medicine; PCP Family Medicine; Visit Provider Internal Medicine Cardiovascular Disease | DX: R94.31 Abnormal electrocardiogram [ECG] [EKG] (principal); Z95.0 Presence of cardiac pacemaker | CPT/HCPCS: 93010 ==

== ENCOUNTER 2025-02-28 01:18 | Emergency (ER) | payer MEDICAID, SELFPAY ==
--- NOTE | ~2025-02-28 | CT_ITS ---
CLINICAL HISTORY: trauma CT cervical spine without contrast Comparison: CT/SR - CT CERVICAL SPINE WITHOUT IV CONTRAST - 01/23/24 03:00 EDT Findings: There is straightening of the normal cervical lordosis with moderate multilevel degenerative change. No acute fractures or dislocations. Visualized intracranial contents are unremarkable. Soft tissues of the neck are normal. Lung apices are clear. Atherosclerotic carotid bulb calcifications are present. IMPRESSION: No acute findings. This document has been electronically signed by: Angel Tirado MD, PHD on 02/28/2025 04:22:43
--- NOTE | ~2025-02-28 | CT_ITS ---
CLINICAL HISTORY: trauma CT head without contrast Comparison: CT/SR - CT HEAD/BRAIN WO IV CON - 08/31/24 19:34 EDT Findings: No intra-axial mass, midline shift, hydrocephalus, or acute hemorrhage. Areas of encephalomalacia are present within the anterior temporal lobes and right inferior frontal lobe. The visualized paranasal sinuses and mastoid air cells are normal. The orbits are unremarkable. Post surgical changes are present from prior craniotomy in the left parietal region. IMPRESSION: 1. No acute intracranial findings. This document has been electronically signed by: Angel Tirado MD, PHD on 02/28/2025 04:20:50
[2025-02-28 01:23] VITALS: BP 106/68; PULSE 74; O2SAT 93
[2025-02-28 01:29] VITALS: BP 116/91; PULSE 80; RESP 18; TEMP 36.3; O2SAT 94; BMI 24.4
--- NOTE | 2025-02-28 01:43 | ED.GENADULT ---
HPI - General Adult General Chief complaint: Fall Stated complaint: ETOH Time Seen by Provider: 02/28/25 01:37 Source: patient Limitations: language barrier and other (intoxicated) History of Present Illness ED Provider: Sandie Sarah PA-C HPI narrative: 65-year-old male with a history of alcohol use disorder, prior GI bleed, anemia, decompensated cirrhosis, hypertension, hyperlipidemia, known CAD, cocaine abuse, HTN, systolic heart failure with the EF of 45-50% on echo April of 2024, s/p pacemaker on warfarin presents after fall. Patient was outside, fell, a neighbor saw him and called EMS to the home. Patient admits to drinking overnight. History limited as the patient is clinically intoxicated. Related Data Home Medications ?Medication ?Instructions ?Recorded ?Confirmed melatonin 5 mg tablet 2 tab PO BEDTIME PRN insomnia 10/18/20 01/23/24 atorvastatin 20 mg tablet 20 mg PO DAILY 11/18/20 01/23/24 blood pressure test kit-large #1 ea 11/18/20 02/09/23 lidocaine 5 % topical patch 1 patch topical DAILY 11/18/20 01/23/24 magnesium oxide 400 mg (241.3 mg 400 mg PO BID 11/18/20 01/23/24 magnesium) tablet pantoprazole 40 mg tablet,delayed 40 mg PO BID 11/18/20 01/23/24 release thiamine HCl (vitamin B1) 100 mg 100 mg PO DAILY 11/18/20 01/23/24 tablet olanzapine 5 mg tablet 1 tab PO BEDTIME 10/10/21 01/23/24 acetaminophen 500 mg tablet 500 mg PO BID PRN Mild Pain (Scale 05/11/22 01/23/24 Score 1-4) albuterol sulfate 90 mcg/actuation 2 puff inhalation Q4H PRN 05/11/22 01/23/24 aerosol inhaler (Ventolin HFA) Respiratory Distress buspirone 10 mg tablet 10 mg PO TID 05/11/22 01/23/24 sacubitril 24 mg-valsartan 26 mg 1 tab PO BID 06/12/22 01/23/24 tablet (Entresto) budesonide-formoterol HFA 160 2 puff inhalation BID 02/09/23 01/23/24 mcg-4.5 mcg/actuation aerosol inhaler (Symbicort) clopidogrel 75 mg tablet 75 mg PO DAILY 05/17/23 01/23/24 acamprosate 333 mg tablet,delayed 666 mg PO BID 09/15/23 01/23/24 release hydroxyzine pamoate 50 mg capsule 100 mg PO BEDTIME PRN insomnia 01/23/24 01/23/24 warfarin 5 mg tablet 5 mg PO DAILY 01/23/24 01/23/24 lactulose 10 gram/15 mL oral 30 ml PO TID 04/28/24 solution warfarin 10 mg tablet 10 mg PO DAILY 07/07/24 ferrous sulfate 325 mg (65 mg 325 mg PO QAM 07/28/24 iron) tablet,delayed release metoprolol succinate 25 mg 25 mg PO QAM 07/28/24 tablet,extended release 24 hr nicotine 14 mg/24 hr daily 1 patch topical [facility] 07/28/24 transdermal patch quetiapine 50 mg tablet 50 mg PO DAILY PRN 07/28/24 Previous Rx's ?Medication ?Instructions ?Recorded furosemide 40 mg tablet 40 mg PO DAILY #30 tabs 05/29/23 oxycodone 5 mg tablet 5 mg PO Q6H PRN pain #10 tabs 08/18/24 magnesium oxide 500 mg capsule 500 mg PO DAILY #30 caps 11/18/24 cefdinir 300 mg capsule 300 mg PO Q12H #20 caps 12/14/24 levofloxacin 750 mg tablet 750 mg PO DAILY #9 tabs 12/14/24 ondansetron 4 mg disintegrating 4 mg PO Q8H PRN nausea and 12/15/24 tablet vomiting #14 tabs rifaximin 550 mg tablet (Xifaxan) 550 mg PO BID #60 tabs 01/08/25 Allergies Allergy/AdvReac Type Severity Reaction Status Date / Time lorazepam (From ATIVAN) AdvReac Severe OPPOSITE Verified 02/28/25 01:33 EFFECT PSYCOTIC EFECTS Review of Systems Review of Systems: Unable to obtain secondary to intoxication Yes all other systems are reviewed and are negative [facility] Past Medical History Attestation statement: The following information was validated with the patient. Medical History Sepsis Rhabdomyolysis EDGAR (acute kidney injury) Supratherapeutic INR Fall Acute hyponatremia Intracranial hemorrhage Coronary artery disease Chronic systolic CHF (congestive heart failure) Hypertension Short-segment Harrell's esophagus Pacemaker Skull fracture Alcoholic liver disease Cocaine abuse Alcohol abuse Surgical History Aortic valve replaced S/P CABG (coronary artery bypass graft) H/O aortic valve replacement History of esophagogastroduodenoscopy (EGD) Social History Social History Household Members: None Housing: Apartment Do you presently have visiting nurse or other home services: Yes ([facility] spring clipper) Alcohol intake: current Alcohol intake frequency: 3 or more drinks per day Alcohol type: beer Comment: pt refused, to have assistance with ambulation, chair and bed alarm Patient Tobacco Use Status: Current everyday Tobacco user Tobacco use type: Cigarette Cigarette Packs Per Day: 1 Cigarettes Per Day: 20.0 Smoked in Last 30 Days: Yes Second Hand Smoke Exposure: No Use of substances other than those prescribed or required for medical reasons: No Substance Use Type: Marijuana Advance Directives: Yes Advance Directives on File: Yes Advance Directives Date on File: 10/11/21 service: No Current occupational status: unemployed Physical Exam ED Vital Signs: Vital Signs - 24 hr 02/28/25 01:29 02/28/25 06:02 Temperature 97.3 F 97.8 F Pulse Rate 80 84 Respiratory Rate 18 16 Blood Pressure 116/91 H 108/70 Pulse Oximetry 94 96 Oxygen Delivery Method Room Air Room Air BMI result Body Mass Index 24.4 Const Other: Sleeping, easily woken with verbal stimuli no obvious sign of head trauma on exam Orientation/consciousness: oriented to person HENMT Other: Alcohol halitosis Resp Effort & Inspection: normal respiratory effort Cardio Other: Normal peripheral perfusion Skin Other: Warm dry no rash Neuro General: oriented to person, no focal motor deficits and CN's II-XI intact bilaterally Extrem Other: Moves all extremities independently, superficial abrasions noted over bilateral upper extremities and hands, not bleeding, Psych Other: Intoxicated Medications Administered Discontinued Medications Generic Name Dose Route Start Last Admin Trade Name Freq PRN Reason Stop Dose Admin Lactated Ringer's 1,000 mls @ 999 mls/hr 02/28/25 03:15 02/28/25 03:26 Lr IV 02/28/25 04:15 999 mls/hr .Q1H1M CAMMY Administration Potassium Chloride 40 meq 02/28/25 03:14 02/28/25 04:31 Potassium Chloride Er 20 Meq Tab.Er.Prt PO 02/28/25 03:15 40 meq ONCE ONE Administration Medical Decision Making Medical Decision Making MDM Narrative: 65-year-old male with a history of alcohol use disorder, prior GI bleed, anemia, decompensated cirrhosis, hypertension, hyperlipidemia, known CAD, cocaine abuse, HTN, systolic heart failure with the EF of 45-50% on echo April of 2024, s/p pacemaker on warfarin presents after fall. Patient was outside, fell, a neighbor saw him and called EMS to the home. Patient admits to drinking overnight. History limited as the patient is clinically intoxicated. Problem: Alcohol abuse, anticoagulated History: Per EMS I have considered the following differential diagnoses: Intracranial hemorrhage, cervical spine injury, fracture, dislocation, concussion, contusion Plan: The patient is not a reliable historian, he is clearly intoxicated, he is on a blood thinner scanning his head and neck. Thus far he is moving his extremities independently, I have low suspicion for a fracture or dislocation at this time, we will do a secondary assessment once I can clear his cervical collar. We will screen basic labs including an ethanol in the event that he did sustain an acute injury and requires further intervention overnight. I have independently reviewed the following tests: Labs: Leukocytosis, not anemic, subtle dehydration, potassium subtly low at 3.1, giving 40 mEq of oral potassium and 1 L of LR, ethanol 225 CT brain:Findings: No intra-axial mass, midline shift, hydrocephalus, or acute hemorrhage. Areas of encephalomalacia are present within the anterior temporal lobes and right inferior frontal lobe. The visualized paranasal sinuses and mastoid air cells are normal. The orbits are unremarkable. Post surgical changes are present from prior craniotomy in the left parietal region. IMPRESSION: 1. No acute intracranial findings. CT cervical spine:indings: There is straightening of the normal cervical lordosis with moderate multilevel degenerative change. No acute fractures or dislocations. Visualized intracranial contents are unremarkable. Soft tissues of the neck are normal. Lung apices are clear. Atherosclerotic carotid bulb calcifications are present. IMPRESSION: No acute findings. Patient had already been discharged. I was informed by the patient's nurse that they noted that the patient had a black bowel movement. Patient known to drink alcohol. A guaiac test was done, heme negative. Patient stable, patient ready for discharge Differential Diagnosis Differential Diagnoses: The differential diagnosis associated with the presentation includes See [facility] Admission/Observation Consideration of admission/observation: Escalation of care including admission/observation considered Lab Data [facility] Lab Attestation statement: I reviewed the patient's lab results. 02/28/25 02:26 02/28/25 02:26 Labs: Lab Results 02/28/25 02/28/25 Range/Units 02:26 05:51 WBC 14.3 H (4.8-10.8) X10*3/uL RBC 4.62 (4.60-5.80) X10*6/uL Hgb 15.4 (14.0-18.0) g/dl Hct 45.0 (42.0-52.0) % MCV 97.4 (80.0-98.0) fL MCH 33.3 H (27.0-33.0) pg MCHC 34.2 (31.0-36.0) g/dl RDW 13.6 (11.0-16.0) % Plt Count 204 (160-400) X10*3/uL MPV 8.9 L (9.4-12.4) fL Immature Gran % (Auto) 0.6 H (0.0-0.4) % Neut % (Auto) 79.4 H (45-73) % Lymph % (Auto) 10.0 L (20-40) % [place] % (Auto) 9.0 (2-11) % Eos % (Auto) 0.5 (0-4) % Baso % (Auto) 0.5 (0-2) % Lymph # (Auto) 1.4 (1.2-4.9) X10*3/uL [place] # (Auto) 1.3 H (0.1-1.2) X10*3/uL Eos # (Auto) 0.1 (0.0-0.4) X10*3/uL Baso # (Auto) 0.1 (0.0-0.2) X10*3/uL Abs Immat Gran (auto) 0.09 H (0.00-0.03) X10*3/uL Absolute Neuts (auto) 11.4 H (2.0-8.3) x10*3/uL Absolute Nucleated RBC 0.000 (0.0-0.012) X10*3/uL Nucleated RBC % (auto) 0.0 (0.0-0.2) /100WBC Sodium 134 L (135-145) mmol/L Potassium 3.1 L D (3.3-5.1) mmol/L Chloride 106 (96-108) mmol/L Carbon Dioxide 15 L (22-29) mmol/L Anion Gap 16 (12-20) BUN 13 (9-16) mg/dL Creatinine 1.53 H (0.5-1.4) mg/dL Estim Creat Clear Calc 53.5 Estimated GFR 46 Random Glucose 99 (60-115) mg/dL Calcium 9.3 D (8.4-10.2) mg/dL Magnesium 2.0 (1.6-2.6) mg/dL Stool Occult Blood NEGATIVE (NEGATIVE) Ethyl Alcohol 225 mg/dL Radiology Impression Discussion of test interpretation with radiology: I have reviewed the radiologist's reading. Critical Care Time Critical Care Time Critical Care Time: Yes Total Critical Care Time: 35 Attestation: I Sandie Sarah PA-C have personally performed 35 minutes of critical care time not including lines and procedures; hypokalemia need for IV fluid therapy and potassium replacement Discharge Plan Discharge Clinical Impression: Alcohol intoxication, Alcohol use disorder, Dehydration, Hypokalemia Patient Disposition: Home, Self-Care Instructions: Dehydration (ED), Potassium Content of Foods List (ED), Hypokalemia (ED), Alcohol Intoxication (ED), Abuse of Alcohol (ED) Additional Instructions: You were assessed after sustaining a fall outside, CT scans of your brain and cervical spine were obtained, there was no acute injury. You were subtly dehydrated in your potassium level was low, you received IV fluid therapy an oral potassium replacement. Alcohol use disorder If you would like to cut down or stop your alcohol use please consider calling our outpatient Addiction Treatment office:? [facility] (M-F [id number] [address] [place] [address] You have also been given a list of treatment providers in the area that can assist as well.? If you experience seizures, vomiting blood, black stools, falls, severe headache, chest pain, fevers, trouble breathing, hallucinations or any other concerns you need to call 911 or seek immediate care. Please stay hydrated. Follow up with your primary care provider as needed. Prescriptions: No Action Xifaxan 550 mg tablet 550 mg PO BID Qty: 60 3RF melatonin 5 mg tablet 2 tab PO BEDTIME PRN (Reason: insomnia) olanzapine 5 mg tablet 1 tab PO BEDTIME acetaminophen 500 mg Tablet 500 mg PO BID PRN (Reason: Mild Pain (Scale Score 1-4)) buspirone 10 mg Tablet 10 mg PO TID albuterol sulfate [Ventolin HFA] 90 mcg/actuation Hfa Aerosol Inhaler 2 puff INHALATION Q4H PRN (Reason: Respiratory Distress) acamprosate 333 mg tablet,delayed release (DR/EC) 666 mg PO BID hydroxyzine pamoate 50 mg capsule 100 mg PO BEDTIME PRN (Reason: insomnia) warfarin 5 mg tablet 5 mg PO DAILY magnesium oxide 500 mg capsule 500 mg PO DAILY Qty: 30 0RF cefdinir 300 mg capsule 300 mg PO Q12H Qty: 20 0RF levofloxacin 750 mg tablet 750 mg PO DAILY Qty: 9 0RF ondansetron 4 mg tablet,disintegrating 4 mg PO Q8H PRN (Reason: nausea and vomiting) Qty: 14 0RF budesonide-formoterol [Symbicort] 160-4.5 mcg/actuation HFA aerosol inhaler 2 puff inhalation BID clopidogrel 75 mg tablet 75 mg PO DAILY furosemide 40 mg Tablet 40 mg PO DAILY Qty: 30 0RF Protocol: Hold for SBP< HOLD for SBP < : 90 oxycodone 5 mg tablet 5 mg PO Q6H PRN (Reason: pain) Qty: 10 0RF Rx Instructions: Partial Fill upon patient request. pantoprazole 40 mg tablet,delayed release (DR/EC) 40 mg PO BID magnesium oxide 400 mg (241.3 mg magnesium) tablet 400 mg PO BID thiamine HCl (vitamin B1) 100 mg tablet 100 mg PO DAILY atorvastatin 20 mg tablet 20 mg PO DAILY (DME) blood pressure test kit-large Kit See Rx Instructions .ROUTE DIRECTED Qty: 1 Rx Instructions: As directed lidocaine 5 % adhesive patch,medicated 1 patch topical DAILY Protocol: Apply to: Apply to: AFFECTED AREA Entresto 24-26 mg tablet 1 tab PO BID lactulose 10 gram/15 mL solution 30 ml PO TID quetiapine 50 mg tablet 50 mg PO DAILY PRN nicotine 14 mg/24 hr patch 24 hour 1 patch topical QAM metoprolol succinate 25 mg tablet extended release 24 hr 25 mg PO QAM ferrous sulfate 325 mg (65 mg iron) tablet,delayed release (DR/EC) 325 mg PO QAM warfarin 10 mg tablet 10 mg PO DAILY Print Language: British
[2025-02-28 02:37] LABS: Hematocrit 45.0 % (42.0-52.0); Hemoglobin 15.4 g/dl (14.0-18.0); Imm Gran Abs Auto 0.09 X10*3/uL (0.00-0.03); Imm Gran Pct Auto 0.6 % (0.0-0.4); Lymphocytes Absolute Auto 1.4 X10*3/uL (1.2-4.9); MANUAL DIFF FLAG NO; Mean Corpuscular HGB Conc 34.2 g/dl (31.0-36.0); Mean Corpuscular Hemoglobin 33.3 pg (27.0-33.0); Mean Corpuscular Volume 97.4 fL (80.0-98.0); NRBC Abs Auto 0.000 X10*3/uL (0.0-0.012); NRBC Pct Auto 0.0 /100WBC (0.0-0.2); Platelet Count 204 X10*3/uL (160-400); Red Blood Count 4.62 X10*6/uL (4.60-5.80); White Blood Count 14.3 X10*3/uL (4.8-10.8)
[2025-02-28 02:55] LABS: Anion Gap 16 (12-20); Blood Urea Nitrogen 13 mg/dL (9-16); Calcium 9.3 mg/dL (8.4-10.2); Carbon Dioxide 15 mmol/L (22-29); Chloride 106 mmol/L (96-108); Creatinine Clr Calc Pharmacy 53.5; Estimated Glomerular Filt Rate 46; Magnesium 2.0 mg/dL (1.6-2.6); Potassium 3.1 mmol/L (3.3-5.1); Sodium 134 mmol/L (135-145)
[2025-02-28] MEDS: Lactated Ringers 1,000 ML 999 ML IV (03:26)
[2025-02-28] MEDS: Potassium Chloride ER 20 MEQ TAB.ER.PRT 40 MEQ PO (04:31)
--- OUTSIDE RECORDS SUMMARY | 2025-02-28 05:03 | XMS_ITS | Encounter Summary ---
Author Organization [employer] Address [address] [facility] [address] [place] [address] Care Team Providers Care Mechanical Field Engineer Name Role Phone Nathalie Hsu MD Primary Care Provider [phone] Shannan Barrow RN Unavailable [phone] Lisbeth Johnson Unavailable Reason for Visit * Reason Comments Med Refill Encounter Details Date Type Department Care Team (Late st Contact Info) Description 03/30/2024 Refill [facility] MED[facility] [address] [place] [address] Nathalie Hsu MD [address] [place] [address] History of alcohol abuse; Hypomagnesemia; Mild intermittent [...] Care Team (Late st Contact Info) Description 04/24/2025 11:30 AM EST Office Visit [facility] [address] [place] [address] Sheila Grant MD [address] [place] [address] 07/02/2025 1:00 PM EDT Office Visit [facility] OPTOMETRY [address] [place] [address] Zabrina Ann, GEETA [address] [place] [address] 07/24/2025 2:00 PM EDT Office Visit [facility] ADULT DENT[facility] [address] [place] [address] Adalberto Montgomeryaris [address] [place] [address] documented as of this encounter Visit Diagnoses Diagnosis History of alcohol abuse Nondependent alcohol abuse, in remission Hypomagnesemia Disorders of magnesium metabolism Mild intermittent asthma, unspecified whether complicated documented in this encounter Additional Health Concerns Assessment Noted Time PHQ-9 Depression Total Score: 0 06/09/19 24 9:13 AM EST documented as of this encounter Care Teams Mechanical Field Engineer Relationship Specialty Start Date End Date Nathalie Hsu MD [address] [place] [address] PCP - General Family Medicine 09/27/13 Shannan Barrow, KHAI [address] [place] [address] Registered Nurse 02/29/24 Lisbeth Johnson [address] [place] [address] [address] [place] [address] Gastroenterology 03/15/24 Tonya Poole Thread Pulling Machine AttendantSalesperson Handbags 01/19/24 Sherin ([facility]) Registered Nurse 02/29/24 Marcos Verdin MD [facility] [address] [place] [address] Cardiology 03/10/24 Omid Vincent Psychiatry 03/15/24 documented as of this encounter
--- OUTSIDE RECORDS SUMMARY | 2025-02-28 05:03 | XMS_ITS | Clinical Summary ---
Author Organization [employer] Address [address] [place] [address] Care Team Providers Care Mill Dresser Name Role Phone Nathalie Hsu MD Primary Care Provider [phone] Shannan Barrow RN Unavailable [phone] Lisbeth Johnson Unavailable Allergies Active Allergy Reactions Criticality Noted Date Comments Zolpidem 06/09/2023 Unintentional overdose on zolpidem on multiple occasions Lorazepam High 09/28/2022 Other reaction(s): OPPOSITE EFFECT PSYCOTIC EFECTS Medications albuterol (Ventolin HFA) 108 (90 Base) MCG/ACT inhalerIndicati ons:Mild intermittent asthma, unspecified whether complicated INHALE 2 PUFFS BY MOUTH EVERY 4 TO 6 HOURS NEEDED 18 g 3 12/27/19 24 Active metoprolol succinate XL (Toprol-XL) 25 MG 24 hr tabletIndicatio ns:Hypertension , unspecified type Take 1 tablet (25 mg) by mouth Once per day. 90 tablet 3 03/10/20 24 Active busPIRone (Buspar) 10 MG [...] 20 doses. 20 tablet 06/21/19 25 Active OLANZapine (ZyPREXA) 5 MG tablet Take 1 tablet by mouth at bedtime. 08/22/19 25 Active QUEtiapine (SEROquel) 50 MG tablet Take 1 tablet by mouth Once per day. 08/08/19 25 Active Xifaxan 550 MG tablet Take 1 tablet by mouth 2 times daily. 08/22/19 25 Active lidocaine (Lidoderm) 5 % patchIndication s:Pain APPLY 1 PATCH TOPICALLY TO SKIN, LEAVE ON FOR 12 HOURS AND OFF FOR 12 HOURS DIRECTED 30 patch 5 5 12:32 PM EST 10/11/19 25 Active acamprosate (Campral) 333 MG EC tabletIndicatio ns:Alcohol use disorder, severe, dependence (CMS/HCC) (HCC) Take 2 tablets (666 mg) by mouth 3 times daily. Do not crush, chew, or split. (DOSE INCREASED TO TID) 180 tablet 11 10/14/19 25 026 Active lactulose (Chronulac) 10 GM/15ML solutionIndicat ions:Alcoholic liver disease TAKE 30 ML BY MOUTH THREE TIMES DAILY 946 mL 5 5 12:32 PM EST 11/10/19 25 Active folic acid (Folvite) 1 [...] BEDTIME NEEDED FOR SLEEP 60 tablet 3 5 9:29 AM EST 11/17/19 25 Active magnesium oxide 250 MG tablet Take 2 tablets by mouth Once per day. 11/21/19 25 Active magnesium 200 MG tabletIndicatio ns:Hypomagnesem ia Take 1 tab po tid 90 tablet 3 11/30/19 25 Active Farxiga 10 MGIndications:C ardiomyopathy, unspecified type (CMS/HCC) (HCC) Take 1 tablet (10 mg) by mouth in the morning. 30 tablet 3 12/21/19 25 Active budesonide-form oterol (Symbicort) 160-4.5 MCG/ACT inhalerIndicati ons:Mild intermittent asthma without complication INHALE 2 PUFFS BY MOUTH TWICE DAILY IN THE MORNING AND AT BEDTIME RINSE MOUTH AFTER USING. DO NOT SWALLOW 10.2 g 2 5 9:29 AM EST 01/05/20 25 Active nicotine (Nicoderm, Step 2) 14 MG/24HR patchIndication s:Tobacco dependence APPLY 1 PATCH TOPICALLY TO THE SKIN IN THE MORNING *DO NOT SMOKE WHILE USING PATCH* 28 patch 2 01/05/20 25 Active ferrous sulfate 325 (65 Fe) MG EC tabletIndicatio ns:Anemia, unspecified type TAKE 1 TABLET BY MOUTH EVERY MORNING DO NOT BREAK, CRUSH, DISSOLVE OR CHEW 90 tablet 01/13/20 25 Active furosemide (Lasix) 20 MG tabletIndicatio ns:Hypertension , unspecified type TAKE 1 TABLET BY MOUTH EVERY MORNING 90 tablet 3 5 9:29 AM EST 02/06/20 25 Active pantoprazole (ProtoNix) 40 MG EC tabletIndicatio ns:Gastroesopha geal reflux disease without esophagitis TAKE 1 TABLET BY MOUTH TWICE DAILY IN THE MORNING AND IN THE EVENING 180 tablet 1 5 9:29 AM EST 02/06/20 25 Active spironolactone (Aldactone) 25 MG tabletIndicatio ns:Hypertension , unspecified type TAKE 1 TABLET BY MOUTH EVERY MORNING 90 tablet 3 5 9:29 AM EST 02/06/20 25 Active Acetaminophen Extra Strength 500 MG tabletIndicatio ns:Severe dental caries,Dental root caries,Advanced periodontitis,E xcessive attrition of teeth, limited to enamel,Missing teeth, acquired,Dental calculus Take 1 tablet (500 mg) by mouth every 6 (six) hours if needed (pain). 20 tablet 02/07/20 25 Active warfarin (Coumadin) 5 MG tabletIndicatio ns:History of prosthetic heart valve TAKE 1 TO 2 TABLETS BY MOUTH ONCE DAILY DIRECTED BY COUMADIN CLINIC 60 tablet 3 02/10/20 25 Active gabapentin (Neurontin) 100 MG capsuleIndicati ons:Pain TAKE 1 CAPSULE BY MOUTH THREE TIMES DAILY IN THE MORNING, EVENING, AND BEDTIME 90 capsule 3 02/10/20 25 Active furosemide (Lasix) 20 MG tabletIndicatio ns:Hypertension , unspecified type Take 1 tablet (20 mg) by mouth Once per day. 90 tablet 3 03/10/20 24 025 Discontinued spironolactone (Aldactone) 25 MG tabletIndicatio ns:Hypertension , unspecified type Take 1 tablet (25 mg) by mouth Once per day. 90 tablet 3 03/10/20 24 025 Discontinued pantoprazole (ProtoNix) 40 MG EC tabletIndicatio ns:Gastroesopha geal reflux disease without esophagitis TAKE 1 TABLET BY MOUTH TWICE DAILY IN THE MORNING AND IN THE EVENING 180 tablet 1 08/25/19 25 025 Discontinued warfarin (Coumadin) 5 MG tabletIndicatio ns:History of prosthetic heart valve TAKE 1 TO 2 TABLETS BY MOUTH ONCE DAILY DIRECTED BY COUMADIN CLINIC 60 tablet 3 10/11/19 25 025 Discontinued gabapentin (Neurontin) 100 MG capsuleIndicati ons:Pain TAKE 1 CAPSULE BY MOUTH THREE TIMES DAILY IN THE MORNING, EVENING, AND BEDTIME 90 capsule 3 10/11/19 25 025 Discontinued Acetaminophen Extra Strength 500 MG tabletIndicatio ns:Severe dental caries,Dental root caries,Advanced periodontitis,E xcessive attrition of teeth, limited to enamel,Missing teeth, acquired,Dental calculus Take 1 tablet (500 mg) by mouth every 6 (six) hours if needed (pain). 20 tablet 01/05/20 25 025 Discontinued(Re order (will not trigger notification to Pharmacy)) gabapentin (Neurontin) 100 MG capsuleIndicati ons:Pain TAKE 1 CAPSULE BY MOUTH THREE TIMES DAILY IN THE MORNING, EVENING, AND BEDTIME 90 capsule 3 02/08/20 25 025 Discontinued(Re order (will not trigger notification to Pharmacy)) Active Problems Problem Noted Date Diagnosed Date Excessive attrition of teeth, limited to enamel 01/08/2025 Dental calculus 01/08/2025 Missing teeth, acquired 01/08/2025 Hypomagnesemia 11/29/2024 Assessment & Plan (11/29/2024 11:32 [...] 12/10/23 and INR was 13, transferred to [facility] -pt fell again 08/18/24 X ray Acute [...] with patient. Alcoholic liver disease 10/20/2023 Overview (01/23/2025): Lab Results Component Value Date AST 20 [...] diet discussed. Avoid hepatotoxic agents. -Followed by: [facility], Dr. Johnson: Note from 07/28/24 reviewed -Again [...] add a night time snack such as french yogurt, PB etc - Full Time Staff Interpreter referral - CLose follow up in 2 weeks -GI note 04/28/24 - Clarified need for CCC and Full Time Staff Interpreter referrals - Due for EGD/colo - needs repeat echo ordered to follow up on cardiomyopathy prev EF 20-25% - Will also confirm his OP advertising agent for clearance - Pt reminded to bring [...] Recently established care with Dr Holloway at [facility] for substance use disorder recovery and support. - Clarified need for CCC and Full Time Staff Interpreter referrals - EGD/colo to be booked. He is aware he will need to review coumadin hold with his advertising agent for this procedure - US abd ordered - Repeat MELD labs in 3 months - Follow up 3 months -US 12/01/24 Impression: 1. Hepatic steatosis with focal fatty sparing. MRI would be confirmatory. 2. Bowel gas obscures midline structures. 3. Stable renal cortical cyst. -note from Dr. Johnson reviewed 01/20/25- Clarified need for CCC and Full Time Staff Interpreter referrals - EGD/colo to be booked. He is aware he will need to review coumadin hold with his advertising agent for this procedure - US abd ordered - Repeat MELD labs in 3 months Assessment & Plan (11/29/2024 11:32 [...] diet discussed. Avoid hepatotoxic agents. -Followed by: [facility], Dr. Johnson: Note from 07/28/24 reviewed -Again [...] add a night time snack such as french yogurt, PB etc - Full Time Staff Interpreter referral - CLose follow up in 2 weeks -GI note 04/28/24 - Clarified need for CCC and Full Time Staff Interpreter referrals - Due for EGD/colo - needs repeat echo ordered to follow up on cardiomyopathy prev EF 20-25% - Will also confirm his OP advertising agent for clearance - Pt reminded to bring [...] Recently established care with Dr Holloway at [facility] for substance use disorder recovery and support. - Clarified need for CCC and Full Time Staff Interpreter referrals - EGD/colo to be booked. He is aware he will need to review coumadin hold with his advertising agent for this procedure - US abd ordered [...] diet discussed. Avoid hepatotoxic agents. -Followed by: [facility], Dr. Johnson: Note from 07/28/24 reviewed -Again strongly reviewed strict abstinence from etOH which hte pt has maintained so far. However, he unfortunately continues to smoke. Strongly counseled re that as well and will be referred to [facility]. -In terms of sarcopenia frailty, encouraged daily [...] add a night time snack such as french yogurt, PB etc - Full Time Staff Interpreter referral - CLose follow up in 2 weeks -GI note 04/28/24 - Clarified need for CCC and Full Time Staff Interpreter referrals - Due for EGD/colo - needs repeat echo ordered to follow up on cardiomyopathy prev EF 20-25% - Will also confirm his OP advertising agent for clearance - Pt reminded to bring [...] Recently established care with Dr Holloway at [facility] for substance use disorder recovery and support. - Clarified need for CCC and Full Time Staff Interpreter referrals - EGD/colo to be booked. He is aware he will need to review coumadin hold with his advertising agent for this procedure - US abd ordered [...] by: New appointment with GI 03/15/24 at [facility] Assessment & Plan (01/19/2024 9:14 AM [...] due after 09/20/25 -eye care facilitated by [facility] -dental home is [facility] -health care proxy on file 02/08/2015, filed into [employer] on 06/09/23 Assessment & Plan (09/22/2024 8:39 AM EDT): -next comprehensive annual evaluation due after 09/20/25 -eye care facilitated by [facility] -dental home is [facility] -health care proxy on file 02/08/2015, filed into [employer] on 06/09/23 Assessment & Plan (03/10/2024 9:55 PM EST): -next comprehensive annual evaluation due after 03/03/2024 -eye care facilitated by [facility] -dental home is [facility] -health care proxy on file 02/08/2015, filed into [employer] on 06/09/23 Assessment & Plan (01/19/2024 9:20 AM EDT): -next comprehensive annual evaluation due after 03/03/2024 -eye care facilitated by [facility] -dental home is [facility] -health care proxy on file 02/08/2015, filed into [employer] on 06/09/23 Assessment & Plan (12/27/2023 11:02 AM EDT): -next comprehensive annual evaluation due after 03/03/2024 -eye care facilitated by [facility] -dental home is [facility] - Health care proxy on file 02/08/2015, filed into [employer] on 06/09/23 Assessment & Plan (10/22/2023 11:16 AM EDT): -next physical exam due after 03/03/2024 -eye care facilitated by [facility] -dental home is [facility] - Health care proxy on file 02/08/2015, filed into [employer] on 06/09/23 Assessment & Plan (03/03/2023 9:35 [...] EDT): -Hgb on admission 02/09/23 12.9. Baseline 11-. [...] entresto startd by cardiology 05/2022 -F/u with advertising agent ANA Smith -furosemide 40 mg started during [...] entresto startd by cardiology 05/2022 -F/u with advertising agent ANA Smith -furosemide 40 mg started during [...] entresto startd by cardiology 05/2022 -F/u with advertising agent ANA Smith -furosemide 40 mg started during [...] entresto startd by cardiology 05/2022 -F/u with advertising agent ANA Smith -Furosemide 40 mg started during [...] entresto startd by cardiology 05/2022 -F/u with advertising agent ANA Smith -Furosemide 40 mg started during [...] entresto startd by cardiology 05/2022 -F/u with advertising agent ANA Smith Assessment & Plan (06/03/2022 11:12 [...] entresto startd by cardiology 05/2022 -F/u with advertising agent ANA Smith Assessment & Plan (05/07/2022 10:43 [...] daily, and amlodipine 2.5mg daily -F/u with advertising agent ANA Smith -He is overdue for follow up and was encouraged to call. Paroxysmal atrial fibrillation (CMS/HCC) 023 Overview (03/10/2024): Asymptomatic. Rate controlled -continue metprolol [...] (12/24/2022): -Hospitalized for subarachnoid hemorrhage 10/2021 at [facility] after fall in the setting of supratheraputic INR of 16 and heavy alcohol use. He was changed to lovenox but could not tolerate the injections. Back on coumadin with improved INRs. He is also on plavix. ER precautions discussed. Assessment & Plan (10/22/2023 11:16 AM EDT): -Hospitalized for subarachnoid hemorrhage 10/2021 at [facility] after fall in the setting of supratheraputic INR of 16 and heavy alcohol use. He was changed to lovenox but could not tolerate the injections. Back on coumadin with improved INRs. He is also on plavix. ER precautions discussed. Assessment & Plan (06/09/2023 9:36 AM EST): -Hospitalized for subarachnoid hemorrhage 10/2021 at [facility] after fall in the setting of supratheraputic INR of 16 and heavy alcohol use. He was changed to lovenox but could not tolerate the injections. Back on coumadin with improved INRs. He is also on plavix. ER precautions discussed. Assessment & Plan (08/11/2022 7:29 AM EDT): -Hospitalized for subarachnoid hemorrhage 10/2021 at [facility] after fall in the setting of supratheraputic INR of 16 and heavy alcohol use. He was changed to lovenox but could not tolerate the injections. Back on coumadin with improved INRs. He is also on plavix. ER precautions discussed. Assessment & Plan (06/03/2022 11:07 AM EST): -Hospitalized for subarachnoid hemorrhage 10/2021 at [facility] after fall in the setting of supratheraputic INR of 16 and heavy alcohol use. Now on Lovenox and clopidogrel. Assessment & Plan (05/07/2022 10:53 AM EST): Hospitalized for subarachnoid hemorrhage 10/2021 at [facility] after fall in the setting of [...] daily drinking and rum - established with [facility] because insurance no longer accepted by [facility]. -Patient followed at [facility] with Dr. Cristine Deleon DO, seen 06/09/23 [...] daily drinking and rum - established with [facility] because insurance no longer accepted by [facility]. -Patient followed at [facility] with Dr. Cristine Deleon DO, seen 06/09/23 [...] daily drinking and rum - established with [facility] because insurance no longer accepted by [facility]. -Patient followed at [facility] with Dr. Cristine Deleon DO, seen 06/09/23 [...] daily drinking and rum - established with [facility] because insurance no longer accepted by [facility]. -Patient followed at [facility] with Dr. Cristine Deleon DO, seen 06/09/23 [...] daily drinking and rum - established with [facility] because insurance no longer accepted by [facility]. -Patient followed at [facility] with Dr. Cristine Deleon DO, seen 06/09/23 [...] daily drinking and rum - established with [facility] because insurance no longer accepted by [facility]. -Patient followed at [facility] with Dr. Cristine Deleon DO, seen 06/09/23 [...] daily drinking and rum - established with [facility] because insurance no longer accepted by [facility]. -Patient followed at [facility] with Dr. Cristine Deleon DO, seen 06/09/23 [...] daily drinking and rum - established with [facility] because insurance no longer accepted by [facility]. Assessment & Plan (11/30/2022 8:51 PM EDT): hx of aortic stenosis s/p Aortic valve repair, hx of AF , cardiomyopathy with EF 25-30%, ,hx AAA repair, complete heart block s/p pacemaker,CAD s/P stent INR goal 2.5 to 3.5 -continue to f up with his advertising agent-next apt w Dr Deleon is on 12/08/2022 - I called cards' office # [phone] and confirmed day and hour and gave [...] daily drinking and rum - Established with [facility] because insurance no longer accepted by [facility]. Assessment & Plan (06/03/2022 11:09 AM [...] ETOH with intracranial bleed. - established with [facility] because insurance no longer accepted by [facility]. Last seen 05/2022 recommending 4 week follow up Assessment & Plan (05/07/2022 10:46 AM EST): Hx [address] 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 No hx CABG. Pacemaker placed for AV radha block. -On Coumadin, managed by [facility]. - established with [facility] because insurance no longer accepted by [facility]. Presence of cardiac pacemaker 03/07/2014 Overview [...] the right side. History of substance abuse ([facility]) 07/14/2012 Assessment & Plan (08/11/2022 7:29 AM EDT): -Repots abstinence from recreational drugs. Tobacco dependence 12/30/2011 Overview (12/27/2023): -Cigg/day: more than 1 pack- daily -Age started: 11 years old -Total years smokin -Pack year history: 25 Encouraged smoking cessation resources such as [facility], [facility] smoking cessation [facility], and [facility] pharmacy smoking cessation clinic -currently [...] as pharmac[facility]therapy, [facility] smoking cessation group, and [facility] pharmacy smoking cessation clinic -currently [...] as pharmacomtherapy, [facility] smoking cessation group, and [facility] pharmacy smoking cessation clinic -currently [...] as pharmacomtherapy, [facility] smoking cessation group, and [facility] pharmacy smoking cessation clinic -currently [...] as pharmacomtherapy, [facility] smoking cessation group, and [facility] pharmacy smoking cessation clinic -currently [...] as pharmacomtherapy, [facility] smoking cessation group, and [facility] pharmacy smoking cessation clinic -currently [...] precontemplative stages of quitting. Motivational interviewing done. Recurrent major depressive disorder, in partial remission 09/14/2011 Overview (03/03/2023): Letty AMELIA. -Continue with [...] the past. Letty CISNEROS. Hypertension 08/24/2011 Overview (12/20/2024): -Blood pressure is at goal -Continue lifestyle modifications -Continue current medications Multiple med changes, see med list Assessment [...] started during hospitalization [facility]17[facility] Assessment & Plan (10/22/2023 11:13 AM EDT): -Continue metoprolol ER 50mg, and amlodipine 2.5mg daily -lisinopril discontinued by cardiology and Entresto started 05/2022 -furosemide 40 mg started during hospitalization 05/17/23 [facility] Assessment & Plan (06/09/2023 9:36 AM [...] 2.5mg daily Alcohol use disorder, severe, dependence (CMS/HC C) 08/24/2011 Overview (11/29/2024): Pt with long history of [...] tabs BID 06/09/23 [facility] Use Disorder [facility] Support and [facility] televist tolerating the medication. Admits to [...] tabs BID 06/09/23 Alcohol Use Disorder Clinic [facility] Support and [facility] televist tolerating the medication. Admits to [...] Date Diagnosed Date Resolved Date Decompensated cirrhosis (CMS/HCC) 09/20/2024 11/29/2024 Assessment & Plan (09/22/2024 8:39 AM EDT): Seizure disorder (CMS/HCC) 09/20/2024 0 11/29/2024 Assessment & Plan (09/22/2024 8:39 AM [...] Fall 06/09/2023 11/29/2024 Rhabdomyolysis 06/09/2023 10/22/2023 Sepsis ([facility]/HCC) 06/09/2023 10/22/2023 Ambien accidental overdose, subsequent encounter 06/09/2023 10/22/2023 Overview (06/09/2023): Confirmed with psychiatry that he is off Ambien. Assessment & Plan (06/09/2023 8:55 AM EST): Confirmed with psychiatry that he is off Ambien. Pneumonia due to infectious organism 06/09/2023 10/20/2023 EDGAR (acute kidney injury) 06/07/2023 Alcohol withdrawal ([facility]) 04/15/2023 04/15/2023 10/22/2023 Alcohol abuse 12/24/2022 10/22/2023 Complete heart block ([facility]) 12/24/2022 11/29/2024 Acute hyponatremia 12/24/2022 Lumbar radiculopathy 12/24/2022 024 [...] the setting of coumadin. Chronic atrial fibrillation (CMS/HCC) 04/01/2022 06/03/2022 Essential hypertension 04/01/202206/03 Mental disorder [...] Encounters Date Type Department Care Team Description 02/27/2025 Telephone [facility] P[facility] [address] [place] [address] [id number] Nathalie Hsu MD INR result 02/20/2025 Telephone [facility] [address] [place] [address] [phone] Nathalie Hsu MD CRITICAL LAB 02/13/2025 Telephone [facility] [address] [place] [address] [phone] Nathalie Hsu MD CRITICAL LAB 02/09/2025 Refill [facility] MEDICINE [address] [place] [address] [phone] Nathalie Hsu MD Pain 02/09/2025 Refill [facility] MEDICINE [address] [place] [address] Nathalie Hsu MD History of prosthetic heart valve 02/07/2025 Refill [facility] MEDIC[facility] [address] [place] [address] Nathalie Hsu MD Pain 02/06/2025 Refill [facility] [address] [place] [address] Nathalie Hsu MD Severe dental caries; Dental root caries; Advanced periodontitis; Excessive attrition of teeth, limited to enamel; Missing teeth, acquired; Dental calculus 02/06/2025 Telephone [facility] [address] [place] [address] Nathalie Hsu MD CRITICAL LAB 02/04/2025 Refill [facility] MEDICINE [address] [place] [phone] Nathalie Hsu MD Hypertension, unspecified type; Gastroesophageal reflux disease without esophagitis 02/01/2025 Outside Procedure [facility] OPTOMETRY [address] [place] [address] Zabrina Ann, OD Presbyopia (Primary Dx) 01/31/2025 10:00 AM EDT Office Visit [facility] OPTOMETRY [address] [place] [address] Zabrina Ann, OD Myopia of both eyes (Primary Dx) 01/31/2025 Travel 01/30/2025 Telephone [facility] [address] [place] [address] Nathalie Hsu MD INR result 01/23/2025 Telephone [facility] [address] [place] [address] Nathalie Hsu MD INR result 01/16/2025 Telephone [facility] [address] [place] [address] Nathalie Hsu MD INR result 01/12/2025 Refill [facility] MEDICINE [address] [place] [phone] Nathalie Hsu MD Anemia, unspecified type 01/10/2025 Telephone [facility] [address] [place] [address] Nathalie Hsu MD Coagulation Disorder 01/08/2025 10:15 AM EDT Office Visit [facility] ADULT DENTAL [address] [place] [address] UlisesChiquita Advanced periodontitis (Primary Dx); Excessive attrition of teeth, limited to enamel; Dental calculus; Missing teeth, acquired 01/04/2025 Refill [facility] [address] [place] [address] Nathalie Hsu MD Mild intermittent asthma without complication; Tobacco dependence; Severe dental caries; Dental root caries; Advanced periodontitis; Excessive attrition of teeth, limited to enamel; Missing teeth, acquired; Dental calculus 01/02/2025 Telephone [facility] [address] [place] [address] Nathalie Hsu MD results 01/02/2025 Refill [facility] MED[facility] [address] [place] [phone] Nathalie Hsu MD Tobacco dependence; History of prosthetic heart valve 01/01/2025 9:00 AM EDT Office Visit [facility] OPTOMETRY [address] [place] [address] Seth, Zabrina, OD Combined forms of age-related cataract of both eyes (Primary Dx); Glaucoma suspect of both eyes; Choroidal nevus, left eye; Skin lesion of cheek; Presbyopia 01/01/2025 Travel 12/25/2024 Refill [facility] [address] [place] [address] Nathalie Hsu MD Severe dental caries; Dental root caries; Advanced periodontitis; Excessive attrition of teeth, limited to enamel; Missing teeth, acquired; Dental calculus 12/20/[address] [address] Nathalie Hsu MD results 12/19/[address] [address] Nathalie Hsu MD CHART PREP 12/19/[address] [address] Nathalie Hsu MD Cardiomyopathy, unspecified type ([facility]) 12/19/2024 Telephone [facility] PEDIATRICS [address] [place] [address] Nathalie Hsu MD CRITICAL LAB 12/15/[address] [address] Shannan Barrow RN INR 12/15/2024 Orders Only GENERIC EXTERNAL DATA DEPARTMENT Provider, Generic External Data 12/14/2024 Orders Only GENERIC EXTERNAL DATA DEPARTMENT Provider, Generic External Data 12/13/2024 Telephone [facility] ADULT DENTAL [address] [place] [phone] Adalberto Montgomeryaris 12/12/[address] [address] Nathalie Hsu MD Critical INR 12/07/2024 Refill [facility] ADULT DENTAL [address] [place] [address] Panchito Lamas DDS 12/06/2024 Refill [facility] [address] [place] [address] Nathalie Hsu MD Severe dental caries; Dental root caries; Advanced periodontitis; Excessive attrition of teeth, limited to enamel; Missing teeth, acquired; Dental calculus 12/05/[address] [address] Nathalie Hsu MD Crtical lab / INR 12/05/[address] [address] Nathalie Hsu MD Results 12/05/[address] [address] Nathalie Hsu MD Results 11/29/2024 11:00 AM EDT Office Visit [address] [address] Nathalie Hsu MD Hypomagnesemia (Primary Dx); Alcohol use disorder, severe, dependence (CMS/HCC); Alcoholic liver disease (CMS/HCC); Anticoagulated on Coumadin; Cardiomyopathy, unspecified type (CMS/HCC); History of prosthetic heart valve; Tobacco dependence 11/29/[address] [address] Nathalie Hsu MD Critical Magnesium 11/29/2024 Orders Only [address] [address] Nathalie Hsu MD Alcoholic liver disease (CMS/HCC) (Primary Dx) 11/29/2024 Travel 11/28/[address] [address] Nathalie Hsu MD CRITICAL LAB 11/28/2024 Telephone [facility] MEDICINE [address] [place] [address] Nathalie Hsu MD CHART PREP from Last 3 Months Immunizations Immunization Administration [...] Sign Reading Time Taken Comments Blood Pressure 130/74 01/08/2025 10:18 AM EDT Pulse 80 11/29/2024 11:01 AM [...] Description 04/24/2025 11:30 AM EST Office Visit [facility] [address] [place] [address] Sheila Grant MD [address] [place] [address] 07/02/2025 1:00 PM EDT Office Visit [facility] OPTOMETRY [address] [place] [address] Seth, Zabrina, OD [address] [place] [address] 07/24/2025 2:00 PM EDT Office Visit [facility] ADULT DENTAL [address] [place] [address] Ulises, Chiquita [address] [place] [address] Health Maintenance Due Date Last Done Comments CT Colonography 1960 FIT 1960 Sigmoidoscopy 1960 RSV Patients and Patients Aged 60 years or older (1 - Risk 50-74 years 1-dose series) 2011 Colonoscopy 03/05/2022 03/05/2012 Zoster Vaccines (2 of 2) 01/19/2023 11/24/2022 COVID-19 Vaccine ( season) 2024 05/01/2022, 11/13/2021, 11/13/2021, Additional history exists Influenza Vaccine (#1) 2024 9, 06/23/2018, 12/21/2011, Additional history exists Dental Oral Exam 12/10/2024 06/08/2024 FOBT 12/29/2024 12/30/2023 Dental X-Ray: Bitewings 06/09/2025 06/08/2024 Dental Prophylaxis 07/10/2025 01/08/2025 Depression Screening 09/20/2025 09/20/2024, 09/21/19 25 Disability Screening 09/20/2025 09/20/2024 SDOH Screening 09/20/2025 09/20/2024 Alcohol/Substance Use Screening 11/29/2025 11/29/2024 Tobacco Screening 01/10/2026 01/10/2025 Colorectal Cancer Screening 12/29/2026 FIT DNA/Cologuard 12/29/2026 12/30/2023 Dental X-Ray: Full Mouth 06/10/2027 025, 05/03/2024, 12/23/2020 Lipid Panel 08/11/2027 08/10/2022, 08/22/2020 DTaP/Tdap/Td Vaccines [...] Date/Time Associated Diagnosis Comments PROTHROMBIN TIME-INR Routine 02/27/2025 PROTHROMBIN TIME-INR Routine 02/20/2025 PROTHROMBIN TIME-INR Routine 02/13/2025 PROTHROMBIN TIME-INR Routine 02/06/2025 PROTHROMBIN TIME-INR Routine 01/30/2025 PROTHROMBIN TIME-INR Routine 01/23/2025 PROTHROMBIN TIME-INR Routine 01/16/2025 PROTHROMBIN TIME-INR Routine 01/09/2025 CASE PRESENTATION, DETAILED AND EXTENSIVE TREATMENT PLANNING Routine 01/08/2025 10:15 AM EDT Advanced periodontitis Excessive attrition of teeth, limited to enamel Dental calculus Missing teeth, acquired ORAL HYGIENE INSTRUCTIONS Routine 01/08/2025 10:15 AM EDT Advanced periodontitis Excessive attrition of teeth, limited to enamel Dental calculus Missing teeth, acquired PROPHYLAXIS - ADULT Routine 01/08/2025 1 0:15 AM EDT Advanced periodontitis Dental calculus 3 MO COMPOSITE FILLING Routine 12:00 AM EDT PROTHROMBIN TIME-INR Routine 01/02/2025 OCT, OPTIC NERVE - OU - BOTH EYES Routine 01/01/2025 9:00 AM EDT Glaucoma suspect of both eyes PROTHROMBIN TIME-INR Routine 12/26/2024 PROTHROMBIN TIME-INR Routine 12/19/2024 BASIC METABOLIC PANEL Routine 12/15/2024 5:00 PM EDT HIGH SENSITIVITY TROPONIN I Routine 12/15/2024 2:17 PM EDT XR CHEST 2 VIEWS Routine 12/15/2024 1:08 PM EDT HIGH SENSITIVITY TROPONIN I Routine 12/15/2024 12:40 PM EDT COMPREHENSIVE METABOLIC PANEL Routine 12/15/2024 12:40 PM EDT DRUG MONITOR, PANEL 1, SCREEN, URINE Routine 12/15/2024 12:40 PM EDT ETHANOL Routine 12/15/2024 12:40 PM EDT PROTHROMBIN TIME-INR Routine 12/15/2024 12:40 PM EDT CBC WITH AUTO DIFFERENTIAL Routine 12/15/2024 12:[address] ABDOMEN PELVIS W CONTRAST Routine 12/14/2024 10:54 PM EDT COVID-19 ID NOW (BENEDICT) Routine 12/14/2024 8:35 PM EDT DRUG MONITOR, PANEL 1, SCREEN, URINE Routine 12/14/2024 8:35 PM EDT HIGH SENSITIVITY TROPONIN I Routine 12/14/2024 5:26 [...] vomiting type Hypomagnesemia PROTHROMBIN TIME-INR Routine 11/28/2024 INTRAORAL - COMPLETE SERIES OF RADIOGRAPHIC IMAGES [...] to Health Maintenance Results * Prothrombin Time-INR (02/27/2025) Only the most recent of15 resultswithin the time period is included. INR 3.20 2.50 - 3.50 EXTERNAL LAB Protime EXTERNAL LAB Blood Venous blood specimen / Unknown Nathalie Hsu MD LAB BLOOD ORDERABLES Final Result EXTERNAL LAB * OCT, Optic Nerve - OU - Both Eyes (01/01/2025 9:00 AM EDT) Narrative SethZabrina, OD - 01/10/2025 11:46 AM EDT Images from the original result were not included. OCT OPTIC NERVE INTERPRETATION Optical Coherence Tomography Interpretation Report Test Details: Measurements: OD OS C/D Horizontal 0.73 0.78 C/D Vertical 0.74 0.79 Disc area 2.50 mm 2 2.87 mm 2 RNFL Average 97 microns 96 microns Test findings: OD: Borderline RNFL thinning in inferior quadrant, normal RNFL thickness in all other quadrants OS: Borderline RNFL thinning in inferior quadrant, normal RNFL thickness in all other quadrants Impression and Plan: Glaucoma suspect in both eyes. Will have him return in 6 months for a visual field test. us Zabrina Ann OD OPHTH TOMOGRAPHY Final Result * (ABNORMAL) Basic Metabolic Panel (12/15/2024 5:00 PM EDT) Only the most recent of3 resultswithin the time period is included. Sodium 136 135 - 145 mmol/L [facility] Potassium 3.9 3.3 - 5.1 mmol/L [facility] Chloride 110(H) 96 - 108 mmol/L [facility] Carbon Dioxide 19(L) 22 - 29 mmol/L [facility] Anion Gap 11(L) 12 - 20 [facility] Urea Nitrogen (BUN) 14 9 - 16 mg/dL [facility] Creatinine, Serum 0.90 0.5 - 1.4 mg/dL [facility] Creatinine Clr Calc Pharmacy 84.7 [facility] Comment:eGFR (calculated fro m the MDRD study equation) and eCrCl(calculated from the Cockcroft-Gault equation) are based ondifferent parameters and may not yield comparable results.If eCrCl result is absurd, please check patient'sheight/weight. Estimated Glomerular Filt Rate >60 [facility] Comment:Chronic Kidney Disea se: Estimated GFR < 60 mL/min/[id number] Kidney Disease: Estimated GFR < 15 mL/min/1.73m2 Glucose 100 60 - 115 mg/dL [facility] Calcium 8.6 8.4 - 10.2 mg/dL [facility] 12/15/2024 5:00 PM EDT 12/15/2024 5:07 PM EDT us Generic External Data Provider LAB BLOOD ORDERAB LES Final Result [facility] [address] [place] [address] [phone] * High Sensitivity Troponin I (12/15/2024 2:17 PM EDT) Only the most recent of4 resultswithin the time period is included. TROPONIN I HIGH SENSITIVITY 4.0 <3.5 - 35.0 ng/L [facility] Comment:The Benedict high sens itivity Troponin-I results should beused in conjunction with other diagnostic information suchas ECG, clinical observations and information, and patientsymptoms to aid in the diagnosis of [place]. 12/15/2024 2:17 PM EDT 12/15/2024 2:25 PM EDT us Generic External Data Provider LAB BLOOD ORDERAB LES Final Result Performing Organization Address City/State/[facility] Co de Phone Number [facility] [address] [place] [phone] * XR Chest 2 Views (12/15/2024 1:08 PM EDT) Anatomical Region Laterality Modality Chest Radiographic Mercedes ging 12/15/2024 1:08 PM EDT Narrative 12/15/2024 1:22 PM EDT [address] [address] XRay Report Signed Patient: Omid Caballero MR#: [id number] 14 : 1960 Acct:[id number] Age/Sex: 64 / M ADM Date: 12/15/24 Loc: .ED Attending Dr: Ordering Physician: Kayden Foss MD Date of Service: 12/15/24 Procedure(s): XR chest 2V Accession Number(s): [id number] cc: Nathalie Hsu MD; Kayden Foss MD Reason for Exam: cough EXAMINATION: XR CHEST CLINICAL INFORMATION: cough COMPARISON: August 18, 2024 TECHNIQUE: PA and lateral views FINDINGS: Pulmonary reticular pattern. No hyperinflation. No gross consolidation or pneumothorax. Blunting of the posterior costophrenic angles, minimal. A right-sided pacemaker with the 2 intact electrode leads, unchanged. Sternal wires with a heart valve prosthesis. Calcified plaque thoracic aortic arch. Tortuosity in the descending thoracic aorta. Cardiac mediastinal/size is normal. Osteopenia versus osteoporosis. Multilevel thoracolumbar spondylosis. Degenerative changes in the shoulders. Traumatic deformity left clavicle near the acromioclavicular joint with callus formation. Degenerative changes in the right shoulder.. XR/XR chest 2V IMPRESSION: Chronic interstitial lung disease without acute airspace disease. Old traumatic deformity left clavicle. Probable pleural thickening. Osteopenia versus osteoporosis. Electronically signed by: Mehul Cordova MD 12/15/2024 01:19 PM EDT RP Dictated By: Mehul Lawrence MD Signed By: <Electronically signed by Mehul Barrow MD in OV> 12/15/24 1319 DD/ 1308 TD/TT: 12/15/24 1313 Java Developer Architect: Procedure Note Donotuseinterpreter, Image - 12/15/2024 [place] [address] XRay Report Signed Patient: Mandi Caballero#: [id number] 14 : 1960cct:[id number] Age/Sex: 64 / MADM Date: 12/15/24 Loc: HO.ED Attending Dr: Ordering Physician: Kayden Foss MD Date of Service: 12/15/24 Procedure(s): XR chest 2V Accession Number(s): [id number] cc: Nathalie Hsu MD; Kayden Foss MD Reason for Exam: cough EXAMINATION: XR CHEST CLINICAL INFORMATION: cough COMPARISON: August 18, 2024 TECHNIQUE: PA and lateral views FINDINGS: Pulmonary reticular pattern. No hyperinflation. No gross consolidation or pneumothorax. Blunting of the posterior costophrenic angles, minimal. A right-sided pacemaker with the 2 intact electrode leads, unchanged. Sternal wires with a heart valve prosthesis. Calcified plaque thoracic aortic arch. Tortuosity in the descending thoracic aorta. Cardiac mediastinal/size is normal. Osteopenia versus osteoporosis. Multilevel thoracolumbar spondylosis. Degenerative changes in the shoulders. Traumatic deformity left clavicle near the acromioclavicular joint with callus formation. Degenerative changes in the right shoulder.. XR/XR chest 2V IMPRESSION: Chronic interstitial lung disease without acute airspace disease. Old traumatic deformity left clavicle. Probable pleural thickening. Osteopenia versus osteoporosis. Electronically signed by: Mehul Cordova MD 12/15/2024 01:19 PM EDT RP Dictated By: Mehul Lawrence MD Signed By: <Electronically signed by Mehul Barrow MDin OV> 12/15/24 1319 DD/ 1308 TD/TT: 12/15/24 1313 Java Developer Architect: [facility] External Provider IMG XR PROCEDURES Final Result * Ethanol (12/15/2024 12:40 PM EDT) Only the most recent of2 resultswithin the time period is included. Pathologist [facility] ETHANOL (MG/DL) IN SER/PLAS <10 mg/dL [facility] Comment:Serum/plasma ethanol results are to be used formedical/treatment purposes only. 12/15/2024 12:4 0 PM EDT 12/15/2024 12:51 PM EDT Generic External Data Provider LAB BLOOD ORDERAB LES Final Result [facility] [address] [place] [phone] * (ABNORMAL) Drug Monitoring, Panel 1, Screen, Urine (12/15/2024 12:40 PM EDT) Only the most recent of2 resultswithin the time period is included. Opiate Screen Urine POSITIVE(A) Not Detect [facility] Comment:Opiate cut-off is 30 0 ng/mL.Positive results are unconfirmed and should not be used fornon-medical purposes. Barbiturates, Urine Not Detected Not Detect [facility] Comment:Barbiturate cut-off is 200 ng/mL.Positive results are unconfirmed and should not be used fornon-medical purposes. Phencyclidine Screen Urine Not Detected Not Detect [facility] Comment:Phencyclidine cut-of f is 25 ng/mL.Positive results are unconfirmed and should not be used fornon-medical purposes. Amphetamine Screen Urine Not Detected Not Detect [facility] Comment:Amphetamine cut-off is 1000 ng/mL.Positive results are unconfirmed and should not be used fornon-medical purposes. Benzodiazepines Screen Urine Not Detected Not Detect [facility] Comment:Benzodiazepine cut-o ff is 200 ng/mL.Positive results are unconfirmed and should not be used fornon-medical purposes. Cocaine Screen Urine Not Detected Not Detect [facility] Comment:Cocaine cut-off is 3 00 ng/mL.Positive results are unconfirmed and should not be used fornon-medical purposes. Cannabinoid Screen Urine Not Detected Not Detect [facility] Comment:Cannabinoid cut-off is 50 ng/mL.Positive results are unconfirmed and should not be used fornon-medical purposes. Methadone Screen, Urine Not Detected Not Detect ng/mL [facility] Comment:Methadone cut-off is 300 ng/mL.Positive results are unconfirmed and should not be used fornon-medical purposes. FENTANYL URINE Not Detected Not Detect [facility] Comment:Fentanyl cut-off is 1 ng/mL.Positive results are unconfirmed and should not be used fornon-medical purposes. Oxycodone Urine Screen Not Detected Not Detect ng/mL [facility] Comment:Oxycodone cut-off is 100 ng/mL.Positive results are unconfirmed and should not be used fornon-medical purposes. Buprenorphine Screen Not Detected Not Detect ng/mL [facility] Comment:Buprenorphine cut-of f is 5 ng/mL.Positive results are unconfirmed and should not be used fornon-medical purposes. 12/15/2024 12:4 0 PM EDT 12/15/2024 12:51 PM EDT us Generic External Data Provider LAB URINE ORDERAB LES Final Result [facility] [address] [place] [phone] * (ABNORMAL) Comprehensive Metabolic Panel (12/15/2024 12:40 PM EDT) Only the most recent of2 resultswithin the time period is included. Sodium 134(L) 135 - 145 mmol/L [facility] Potassium 3.9 3.3 - 5.1 mmol/L [facility] Chloride 110(H) 96 - 108 mmol/L [facility] Carbon Dioxide 15(L) 22 - 29 mmol/L [facility] Anion Gap 13 12 - 20 [facility] Urea Nitrogen (BUN) 15 9 - 16 mg/dL [facility] Creatinine, Serum 1.00 0.5 - 1.4 mg/dL [facility] Creatinine Clr Calc Pharmacy 76.2 [facility] Comment:eGFR (calculated fro m the MDRD study equation) and eCrCl(calculated from the Cockcroft-Gault equation) are based ondifferent parameters and may not yield comparable results.If eCrCl result is absurd, please check patient'sheight/weight. Estimated Glomerular Filt Rate >60 [facility] Comment:Chronic Kidney Disea se: Estimated GFR < 60 mL/min/[id number] Kidney Disease: Estimated GFR < 15 mL/min/1.73m2 Glucose 114 60 - 115 mg/dL [facility] Calcium 8.7 8.4 - 10.2 mg/dL [facility] Bilirubin, Total 0.5 0.0 - 1.0 mg/dL [facility] Aspartate Amino Transferase 26 5 - 37 U/L [facility] Alanine Aminotransferase 18 0 - 40 U/L [facility] Total Protein 7.6 6.5 - 8.0 g/dL [facility] Albumin Level 3.9 3.5 - 5.0 g/dL [facility] Alkaline Phosphatase 107 39 - 117 U/L [facility] 12/15/2024 12:4 0 PM EDT 12/15/2024 12:51 PM EDT us Generic External Data Provider LAB BLOOD ORDERAB LES Final Result [facility] [address] [place] [phone] * (ABNORMAL) CBC auto differential (12/15/2024 12:39 PM EDT) Only the most recent of2 resultswithin the time period is included. White Blood Count 8.8 4.8 - 10.8 X10*3/uL [facility] Red Blood Count 4.28(L) 4.60 - 5.80 X10*6/uL [facility] Hemoglobin 14.1 14.0 - 18.0 g/dl [facility] Hematocrit 40.8(L) 42.0 - 52.0 % [facility] Mean Corpuscular Volume 95.3 80.0 - 98.0 fL [facility] Mean Corpuscular Hemoglobin 32.9 27.0 - 33.0 pg [facility] Mean Corpuscular HGB Conc 34.6 31.0 - 36.0 g/dl [facility] Red Cell Distribution Width 14.8 11.0 - 16.0 % [facility] Platelet Count 220 160 - 400 X10*3/uL [facility] Mean Platelet Volume 8.7(L) 9.4 - 12.4 fL [facility] Neutrophils Percent Auto 75.0(H) 45 - 73 % [facility] Imm Gran Pct Auto 0.9(H) 0.0 - 0.4 % [facility] Lymphocytes Percent Auto 13.8(L) 20 - 40 % [facility] Monocytes Percent Auto 9.2 2 - 11 % [facility] Eosinophils Percent Auto 0.5 0 - 4 % [facility] Basophils Percent Auto 0.6 0 - 2 % [facility] NRBC Pct Auto 0.0 0.0 - 0.2 /100WBC [facility] Neutrophils Absolute Auto 6.6 2.0 - 8.3 x10*3/uL [facility] Imm Gran Abs Auto 0.08(H) 0.00 - 0.03 X10*3/uL [facility] Lymphocytes Absolute Auto 1.2 1.2 - 4.9 X10*3/uL [facility] Monocytes Absolute Auto 0.8 0.1 - 1.2 X10*3/uL [facility] Eosinophils Absolute Auto 0.0 0.0 - 0.4 X10*3/uL [facility] Basophils Absolute Auto 0.1 0.0 - 0.2 X10*3/uL [facility] NRBC Abs Auto 0.000 0.0 - 0.012 X10*3/uL [facility] 12/15/2024 12:3 9 PM EDT 12/15/2024 12:51 PM EDT us Generic External Data Provider LAB BLOOD ORDERAB LES Final Result Performing Organization Address City/State/[facility] Co de Phone Number [facility] [address] [place] [phone] * CT Abdomen Pelvis w/ Contrast (12/14/2024 10:54 PM EDT) Anatomical Region Laterality Modality Body, Pelvis, Abdomen Computed T omography 12/14/2024 10:5 4 PM EDT Narrative 12/14/2024 10:56 PM EDT [place] [address] CT Scan Report Signed Patient: Omid Caballero MR#: [id number] 14 : 1960 Acct:[id number] Age/Sex: 64 / M ADM Date: 12/14/24 Loc: .ED Attending Dr: Ordering Physician: Sandie Sarah Date of Service: 12/14/24 Procedure(s): CT abdomen pelvis w IV con Accession Number(s): [id number] cc: Nathalie Hsu MD; Sandie Sarah Report Number: [id number]: Total DLP = 521.00 mGy-cm Reason for Exam: diverticulitis?? CLINICAL HISTORY: diverticulitis?? CT abdomen and pelvis with contrast Comparison: CT - CT ABDOMEN PELVIS W IV CON - 12/14/24 20:56 EDT Findings: Motion and streak artifact limit evaluation. Diffuse esophageal mural thickening, nonspecific. Small hiatal hernia. Atelectasis. Ill-defined tree-in-bud nodular consolidations in the lower lobes. Cardiomegaly without significant pericardial effusion. Coronary artery calcifications. Cardiac pacing leads. Diffuse atheromatous plaque disease throughout the aorta and branch vessels, without aneurysmal dilatation. High-grade stenoses origins of the celiac artery, SMA and right renal artery. Hepatomegaly. No hydronephrosis. Left renal vascular calcifications redemonstrated. No obvious renal calculi. Indeterminate 1 cm lesion right lower pole kidney. Finding is similar to prior. If clinical concern persists consider follow-up MRI. Fluid-filled bowel. Air-fluid level in the rectum with mural thickening, submucosal edema and mucosal hyperemia, extending along the distal sigmoid colon which is decompressed. Colonic diverticulosis without focal diverticulitis Fat containing inguinal hernias. Appendix not visualized. Osteopenia with diffuse multilevel spondylosis. Chronic appearing multilevel thoracolumbar vertebral body height loss with Schmorl's nodes. IMPRESSION: 1. Ill-defined tree-in-bud nodular consolidations in the lower lobes. Aspiration or developing pneumonia considered. Clinical correlation with follow-up advised. 2. Findings concerning for proctocolitis. 3. Additional findings as described. This document has been electronically signed by: Lenny Cee MD on 12/14/2024 22:54:11 Dictated By: Lenny Cee MD Signed By: <Electronically signed by Lenny Cee MD in OV> 12/14/242254 DD/ 53 TD/TT: 12/14/242253 Java Developer Architect: Procedure Note Donotuseinterpreter, Image - 12/14/[address] [address] [address] Scan Report Signed Patient: Mandi Caballero#: [id number] 14 : 1960cct:[id number] Age/Sex: 64 / MADM Date: 12/14/24 Loc: HO.ED Attending Dr: Ordering Physician: Sandie Sarah Date of Service: 12/14/24 Procedure(s): CT abdomen pelvis w IV con Accession Number(s): [id number] cc: Nathalie Hsu MD; Sandie Sarah Report Number: [id number]: Total DLP = 521.00 mGy-cm Reason for Exam: diverticulitis?? CLINICAL HISTORY: diverticulitis?? CT abdomen and pelvis with contrast Comparison: CT - CT ABDOMEN PELVIS W IV CON - 12/14/24 20:56 EDT Findings: Motion and streak artifact limit evaluation. Diffuse esophageal mural thickening, nonspecific. Small hiatal hernia. Atelectasis. Ill-defined tree-in-bud nodular consolidations in the lower lobes. Cardiomegaly without significant pericardial effusion. Coronary artery calcifications. Cardiac pacing leads. Diffuse atheromatous plaque disease throughout the aorta and branch vessels, without aneurysmal dilatation. High-grade stenoses origins of the celiac artery, SMA and right renal artery. Hepatomegaly. No hydronephrosis. Left renal vascular calcifications redemonstrated. No obvious renal calculi. Indeterminate 1 cm lesion right lower pole kidney. Finding is similar to prior. If clinical concern persists consider follow-up MRI. Fluid-filled bowel. Air-fluid level in the rectum with mural thickening, submucosal edema and mucosal hyperemia, extending along the distal sigmoid colon which is decompressed. Colonic diverticulosis without focal diverticulitis Fat containing inguinal hernias. Appendix not visualized. Osteopenia with diffuse multilevel spondylosis. Chronic appearing multilevel thoracolumbar vertebral body height loss with Schmorl's nodes. IMPRESSION: 1. Ill-defined tree-in-bud nodular consolidations in the lower lobes. Aspiration or developing pneumonia considered. Clinical correlation with follow-up advised. 2. Findings concerning for proctocolitis. 3. Additional findings as described. This document has been electronically signed by: Lenny Cee MD on 12/14/2024 22:54:11 Dictated By: Lenny Cee MD Signed By: <Electronically signed by Lenny Cee MD in OV> 12/14/242254 DD/ 53 TD/TT: 12/14/242253 Java Developer Architect: [facility] External Provider IMG CT PROCEDURES Edited Result - Final * COVID-19 ID NOW (BENEDICT) (12/14/2024 8:35 PM EDT) IDNOW SERIAL# [id number] [facility] COVID-19 TEST Negative Negative [facility] COVID-19 NOTE See Note [facility] Comment: Results are for the identification of SARS-CoV2 RNA. TheSARS-CoV2 RNA is generally detectable in respiratory samplesduring the acute phase of infection. Positive results areindicative of the presence of SARS-CoV-2 RNA; clinicalcorrelation with patient history and other diagnosticinformation is necessary to determine patient infectionstatus. Positive results do not rule out bacterial infectionor co- infection with other viruses.Testing facilities within the [facility] and [facility] are required to report all positive results tothe appropriate public health authorities.Negative results should be treated as presumptive and, ifinconsistent with clinical signs and symptoms or necessaryfor patient management, should be tested with differentauthorized or cleared molecular tests. Negative results donot preclude SARS-CoV2 RNA infection and should not be usedas the sole basis for patient management decisions. Negativeresults should be considered in the context of a patient'srecent exposures, history and the presence of clinical signsand symptoms consistent with COVID-19.This test has been authorized by the FDA under an EmergencyUse Authorization (EUA) for use by authorized laboratories.Testing performed on the [employer] NOW utilizing NAAT. 12/14/2024 8:35 PM EDT 12/14/2024 8:46 PM EDT us Generic External Data Provider LAB MOLECULAR RHONDA GNOSTICS ORDERABLES Final Result [facility] [address] [place] [phone] * Magnesium (12/14/2024 12:27 PM EDT) Only the most recent of2 resultswithin the time period is included. Magnesium 1.7 1.6 - 2.6 mg/dL [facility] 12/14/2024 12:2 7 PM EDT 12/14/2024 12:29 PM EDT us Generic External Data Provider LAB BLOOD ORDERAB LES Final Result Performing Organization Address City/[facility] Co de Phone Number [facility] [address] [place] [phone] * Lipase (12/14/2024 12:27 PM EDT) Lipase 15 8 - 78 U/L [facility] 12/14/2024 12:2 7 PM EDT 12/14/2024 12:29 PM EDT us Generic External Data Provider LAB BLOOD ORDERAB LES Final Result Performing Organization Address [facility] de Phone Number [facility] [address] [place] [phone] * US Abdomen Complete (12/01/2024 6:46 AM EDT) Anatomical Region Laterality Modality Abdomen Ultrasound 12/01/2024 6:46 AM EDT Narrative 12/01/2024 6:48 AM EDT [address] [address] Ultrasound Report Signed Patient: Omid Caballero MR#: [id number] 14 : 1960 Acct:[id number] Age/Sex: 64 / M ADM Date: 11/30/24 Loc: HO.US Attending Dr: Lisbeth Johnson MD Ordering Physician: Lisbeth Johnson MD Date of Service: 11/30/24 Procedure(s): US abdomen complete Accession Number(s): [id number] cc: Nathalie Hsu MD; Lisbeth Johnson MD [...] in OV> 12/01/2447 DD/ 5 TD/TT: 12/01/24645 Java Developer Architect: Procedure Note Donotuseinterpreter, Image - 12/01/2024 [place] [address] Ultrasound Report Signed Patient: Mandi Caballero#: [id number] 14 : 1960cct:[id number] Age/Sex: 64 / MADM Date: 11/30/24 Loc: HO.US Attending Dr: Lisbeth Johnson MD Ordering Physician: Lisbeth Johnson MD Date of Service: 11/30/24 Procedure(s): US abdomen complete Accession Number(s): [id number] cc: Nathalie Hsu MD; Lisbeth Johnson MD [...] signed by Rich Armas MD in OV> 12/01/24 0647 DD/ TD/TT: 12/01/24645 Java Developer Architect: [facility] External Provider IMG US PROCEDURES Edited Result - Final * Cologuard?? colon cancer screening (12/30/2023 1:30 AM EDT) Cologuard Result Negative Negative 01/05/20 24 1:07 AM EDT [facility] (CLIA #:[id number]) Comment: NEGATIVE TEST RESULT. A negative Cologuard [...] (Tien Landeros al, N Engl J Med 2014;370(14):0450-3661) The normal value (reference range) for this assay is negative. COLOGUARD RE-SCREENING RECOMMENDATION: Periodic colorectal cancer screening is an important part of preventive healthcare for asymptomatic individuals at average risk for colorectal cancer. Following a negative Cologuard result, the [place] Cancer Society and U.S. Multi-Society Task Force screening guidelines recommend a Cologuard re-screening interval of 3 years. References: [place] [employer] Society Guideline for Colorectal Cancer Screening: https://www.cancer.org/cancer/ipoio-esaaqv-jhubon/zubnyxvti-qllgcvgih-kqvatae/ac s-rec ommendations.html.; Honorio DK, Lita NEGRETE, Luba JamesK, Colorectal Cancer Screening: Recommendations for Physicians and Patients from the U.S. Multi-Society Task Force on Colorectal Cancer Screening , Am J Gastroenterology 2017; 112:2027-3561. TEST DESCRIPTION: Composite algorithmic analysis of stool [...] colonoscopy. (Tien Fleming, N Engl J Med 2014;370(14):9669-9668.) Cologuard may produce a false negative or false positive result (no colorectal cancer or precancerous polyp present at colonoscopy follow up). A negative Cologuard test result does not guarantee the absence of CRC or advanced adenoma (pre-cancer). The current Cologuard screening interval is every 3 years. ([place] Cancer Society and U.S. Multi-Society Task Force). Cologuard performance data in a 10,000 patient pivotal study using colonoscopy as the reference method can be accessed at the following location: www.investUP/results. Additional description of the Cologuard test process, warnings and precautions can be found at www.cologLax.comrd.com. Stool specimen (specimen) Rectal contents / Unknown 12/30/2023 1:30 AM EDT 01/01/2024 3:30 PM EDT Nathalie Hsu MD LAB MOLECULAR DIAGNOSTICS ORDERABLES Final Result [facility] (CLIA #:[id number]) [place] [address], * Hepatitis C Antibody with Reflex to HCV, RNA, Quantitative, Real-Time PCR (08/10/2022 11:24 AM EDT) Hepatitis C Antibody NON-REACT KG NON-REACT KG LaunchBit Index 0.13 <1.00 [facility] Comment: HCV antibody was non-reactive. There is no laboratory evidence of HCV infection. In most cases, no further action is required. However, if recent HCV exposure is suspected, a test for HCV RNA (test code 91654) is suggested. For additional information please refer to http://education.SpeakGlobal.LifeShield Security/faq/DGB96h3 (This link is being provided for informational/ educational purposes only.) Blood Venous blood specimen / Unknown 08/10/2022 11:24 AM EDT 08/10/2022 11:25 AM EDT Narrative [facility] - 08/16/2022 12:40 AM EDT FASTING:NO FASTING: NO Nathalie Hsu MD LAB BLOOD ORDERABLES Final Result [facility] [address], [place] [address] [facility] [place] [facility] [address] [place] [address] * HIV-1/2 Antigen and Antibodies, Fourth Generation, with Reflexes (08/10/2022 11:24 AM EDT) Pathologist [facility] HIV Antigen/Antibody, 4th Generation NON-REAC TIVE NON-REAC TIVE [facility] [place] [facility] Comment: HIV-1 antigen and HIV-1/HIV-2 antibodies were [...] purpose. For additional information please refer to http://education.SpeakGlobal.LifeShield Security/faq/SBT745 (This link is being provided for informational/ educational purposes only.) The performance of this assay has not been clinically validated in patients less than 2 years old. Blood Venous blood specimen / Unknown 08/10/2022 11:24 AM EDT 08/10/2022 11:25 AM EDT [facility] 08/16/2022 12:40 AM EDT FASTING:NO FASTING: NO Nathalie Hsu MD LAB BLOOD ORDERABLES Final Result [facility] [address], [place] [address] [facility] [place] [facility] [address] [place] [address] * Lipid Panel, Standard (08/10/2022 11:24 AM EDT) Cholesterol, Total 161 <200 mg/dL [facility] HDL Cholesterol 62 > OR = 40 mg/dL [facility] Triglycerides 109 <150 mg/dL [facility] LDL Cholesterol 80 mg/dL (calc) [facility] Comment: Reference range: <100 Desirable range <100 mg/dL for primary prevention; <70 mg/dL for patients with CHD or diabetic patients with > or = 2 CHD risk factors. LDL-C is now calculated using the Anthony-Garner calculation, which is a validated novel method providing better accuracy than the Friedewald equation in the estimation of LDL-C. Anthony SS et al. FLAKITA. 2013;310(19): 5099-0115 (http://education.LearnSomething/faq/ASY498) Chol/HDLC Ratio 2.6 <5.0 (calc) [facility] Non-HDL Cholesterol 99 <130 mg/dL (calc) [facility] Comment: For patients with diabetes plus 1 major ASCVD risk factor, treating to a non-HDL-C goal of <100 mg/dL (LDL-C of <70 mg/dL) is considered a therapeutic option. Blood Venous blood specimen / Unknown 08/10/2022 11:24 AM EDT 08/10/2022 11:25 AM EDT Narrative [facility] - 08/16/2022 12:40 AM EDT FASTING:NO FASTING: NO Nathalie Hsu MD LAB BLOOD ORDERABLES Final Result [facility] [address], [place] [address] [facility] [address] [place] [address] * Hm Colonoscopy (03/05/2012) Colonoscopy Dr. Zhang Historical Provider HEALTH MAINTENANCE Final Result from Last 3 Months or Most Recently Relevant to Health Maintenance Insurance [facility] C3 DENTAL-[facility] MEDICAID STAND ADULT Advance Directives Documents on File Type Date Recorded Patient Pcmh Specialist Expl anation Advance Directives and Living Will 06/10/2023 1:14 PM Health Care Proxy Care Teams Mill Dresser Relationship Specialty Start Date End Date Nathalie Hsu MD [address] [place] [address] PCP - General Family Medicine 09/27/13 Shannan Barrow, RN [address] [place] [address] Registered Nurse 02/29/24 Lisbeth Johnson [address] [place] [address] Drive 3rd [place] [address] Gastroenterology 03/15/24 Tonya Poole Oracle ProgrammerAdministrative Manager 01/19/24 Sherin ([facility]) Registered Nurse 02/29/24 Marcos Verdin MD [place] [facility] [address] [place] [address] Cardiology 03/10/24 Omid Vincent Psychiatry 03/15/24
--- OUTSIDE RECORDS SUMMARY | 2025-02-28 05:03 | XMS_ITS | Encounter Summary ---
Author Organization [employer] Address [address] [place] [address] Care Team Providers Care Fuse Assembler Name Role Phone Nathalie Hsu MD Primary Care Provider [phone] Shannan Barrow RN Unavailable [phone] Lisbeth Johnson Unavailable Reason for Visit * Reason Onset Date Comments PT-1 05/26/2024 Encounter Details Date Type Department Care Team (Late st Contact Info) Description 05/26/2024 Telephone [facility] MEDICINE [address] [place] [address] Nathalie Hsu MD [address] [place], [place] [phone] PT-1 Social History Tobacco Use Types Packs/Day [...] Y/N: Yes Provider name or facility name: [place] [address] Escort needed: Y/N: No Do you have a wheelchair: Y/N: No If yes- Manual or electric: N/A Visits: (amount of visits) ( x monthly, weekly, daily) 2 times per month. documented in this encounter Plan of Treatment Upcoming Encounters Date Type Department Care Team (Late st Contact Info) Description 04/24/2025 11:30 AM EST Office Visit [facility] MED & PEDS [address] [place], [place] [phone] Sheila Grant MD [address] [place] [address] 07/02/2025 1:00 PM EDT Office Visit [facility] OPTOMETRY [address] [place] [address] Seth, Megan, OD [address] [place] [address] 07/24/2025 2:00 PM EDT Office Visit [facility] ADULT DENTAL [address] [place] [address] Ulises, Chiquita [address] [place] [address] documented as of this encounter Visit Diagnoses Not on filedocumented in this encounter Additional Health Concerns Assessment Noted Time PHQ-9 Depression Total Score: 0 06/09/19 9:13 AM EST documented as of this encounter Care Teams Fuse Assembler Relationship Specialty Start Date End Date Nathalie Hsu MD [address] [place] [address] PCP - General Family Medicine 09/27/13 Shannan Barrow, KHAI [address] [place] [address] Registered Nurse 02/29/24 Lisbeth Johnson [address] [place] [address] [address] [place] [address] Gastroenterology 03/15/24 Tonya Poole Manuscripts CuratorAssembler Wet Wash 01/19/24 Sherin ([facility]) Registered Nurse 02/29/24 Marcos Verdin MD [place] [facility] [address] [place], [place] Cardiology 03/10/24 Omid Vincent Psychiatry 03/15/24 documented as of this encounter
--- OUTSIDE RECORDS SUMMARY | 2025-02-28 05:03 | XMS_ITS | Encounter Summary ---
Author Organization [employer] Address [address] [facility] 7t [place] [address] Care Team Providers Care Mobility Specialist Name Role Phone Nathalie Hsu MD Primary Care Provider [phone] Shannan Barrow RN Unavailable [phone] Lisbeth Johnson Unavailable Encounter Details Date Type Department Care Team (Late st Contact Info) Description 08/11/2023 Telephone [facility] MEDICINE [address] [place], [place] [phone] Nathalie Hsu MD [address] [place], [place] [phone] Social History Tobacco Use Types Packs/Day Years [...] Description 04/24/2025 11:30 AM EST Office Visit [facility] MED & PEDS [address] [place] [address] Sheila Grant MD [address] [place] [address] 07/02/2025 1:00 PM EDT Office Visit [facility] OPTOMETRY [address] [place] [address] Seth, Zabrina, OD [address] [place] [address] 07/24/2025 2:00 PM EDT Office Visit [facility] ADULT DENTAL [address] [place] [address] Adalberto Montgomeryaris [address] [place] [address] documented as of this encounter Visit Diagnoses Not on filedocumented in this encounter Additional Health Concerns Assessment Noted Time PHQ-9 Depression Total Score: 0 06/09/19 24 9:13 AM EST documented as of this encounter Care Teams Mobility Specialist Relationship Specialty Start Date End Date Nathalie Hsu MD [address] [place] [address] PCP - General Family Medicine 09/27/13 Shannan Barrow, RN [address] [place] [address] Registered Nurse 02/29/24 Lisbeth Johnson [address] [place] [address] Drive 3rd [place] [address] Gastroenterology 03/15/24 Tonya Poole Business Information AnalystField Enumerator 01/19/24 Sheirn (A S) Registered Nurse 02/29/24 Marcos Verdin MD [place] [facility] [address] [place] [address] Cardiology 03/10/24 Omid Vincent Psychiatry 03/15/24 documented as of this encounter
--- OUTSIDE RECORDS SUMMARY | 2025-02-28 05:03 | XMS_ITS | Encounter Summary ---
Author Organization [employer] Address [address] [place] [address] Care Team Providers Care Upper Leather Cutter Name Role Phone [place], Nathalie ABDI Primary Care Provider [phone] Shannan Barrow RN Unavailable [phone] Lisbeth Johnson Unavailable Reason for Visit * Reason Comments Med Refill Encounter Details Date Type Department Care Team (Late st Contact Info) Description 07/04/2024 Refill [facility] ADULT DENTAL [address] [place] [address] Panchito Lamas DDS [address] [place] [address] Severe dental caries; Dental root caries; Advanced [...] Description 04/24/2025 11:30 AM EST Office Visit [facility] CHC MED & PEDS [address] [place] [address] Sheila Grant MD [address] [place] [address] 07/02/2025 1:00 PM EDT Office Visit [facility] OPTOMETRY [address] [place] [address] Zabrina Ann, OD [address] [place] [address] 07/24/2025 2:00 PM EDT Office Visit [facility] ADULT DENTAL [address] [place] [address] Chiquita Montgomery [address] [place] [address] documented as of this encounter Visit Diagnoses Diagnosis Severe dental caries Dental root caries Advanced periodontitis Excessive attrition of teeth, limited to enamel Missing teeth, acquired Dental calculus Accretions on teeth documented in this encounter Additional Health Concerns Assessment Noted Time PHQ-9 Depression Total Score: 0 06/09/19 24 9:13 AM EST documented as of this encounter Care Teams Upper Leather Cutter Relationship Specialty Start Date End Date Nathalie Hsu MD [address] [place] [address] PCP - General Family Medicine 09/27/13 Shannan Barrow RN [address] [place] [address] Registered Nurse 02/29/24 Lisbeth Johnson [address] [place] [address] Drive 3rd [place] [address] Gastroenterology 03/15/24 Tonya Poole Employment CoachChief Data Officer 01/19/24 Sherin ([facility]) Registered Nurse 02/29/24 Marcos Verdin MD [place] [facility] [address] [place] [address] Cardiology 03/10/24 Omid Vincent Psychiatry 03/15/24 documented as of this encounter
--- OUTSIDE RECORDS SUMMARY | 2025-02-28 05:03 | XMS_ITS | Encounter Summary ---
Author Organization [employer] Address [address] [facility] 7t [place] [address] Care Team Providers Care Power Nut Runner Operator Name Role Phone Nathalie Hsu MD Primary Care Provider [phone] Shannan Barrow RN Unavailable [phone] Lisbeth Johnson Unavailable Reason for Visit * Reason Onset Date Comments Hospital Follow-up 03/07/2024 Medication Question 03/07/2024 Encounter Details Date Type Department Care Team (Late st Contact Info) Description 03/07/2024 Telephone [facility] MEDICINE [address] [place], [place] [phone] Nathalie Hsu MD [address] [place] [address] Hospital Follow-up; Medication Question Social History Tobacco [...] stating wrong number and he doesn't speak bulgarian (was not the pt). Telephone call placed [...] - 03/07/2024 2:00 PM EST Tc from [facility] with [facility] Substation Inspector requesting a HDF appt. Pt is concerned about medication melatonin 5 MG tablet he still has trouble sleeping and doesn't want to stop taking. Hospital: [facility] Date of admission: 02/11 Discharge date: 03/01 Diagnosed: Liver Issues Contact pt to schedule at [phone] *Send message to [place] [facility] Care Coordinators documented in this encounter Plan of Treatment Upcoming Encounters Date Type Department Care Team (Late st Contact Info) Description 04/24/2025 11:30 AM EST Office Visit [facility] CH[facility] MED & PEDS [address] [place] [address] Sheila Grant MD [address] [place] [address] 07/02/2025 1:00 PM EDT Office Visit [facility] OPTOMETRY [address] [place] [address] Seth, Zabrina, OD [address] [place] [address] 07/24/2025 2:00 PM EDT Office Visit [facility] ADULT DENTAL [address] [place] [address] Ulises, Chiquita [address] [place] [address] documented as of this encounter Visit Diagnoses Not on filedocumented in this encounter Additional Health Concerns Assessment Noted Time PHQ-9 Depression Total Score: 0 06/09/19 24 9:13 AM EST documented as of this encounter Care Teams Power Nut Runner Operator Relationship Specialty Start Date End Date Nathalie Hsu MD [address] [place] [address] PCP - General Family Medicine 09/27/13 Shannan Barrow, RN [address] [place] [address] Registered Nurse 02/29/24 Lisbeth Johnson [address] [place] [address] Drive 3rd [place] [address] Gastroenterology 03/15/24 Tonya Poole [facility] ManagerCollar Stay Fuser Tender 01/19/24 Sherin ([facility]) Registered Nurse 02/29/24 Marcos Verdin MD [place] [facility] [address] [place] [address] Cardiology 03/10/24 Omid Vincent Psychiatry 03/15/24 documented as of this encounter
--- OUTSIDE RECORDS SUMMARY | 2025-02-28 05:03 | XMS_ITS | Encounter Summary ---
Author Organization [employer] Address [address] [facility] [address] [place] [address] Care Team Providers Care Speech Teacher Name Role Phone Nathalie Hsu MD Primary Care Provider [phone] Shannan Barrow RN Unavailable [phone] Lisbeth Johnson Unavailable Reason for Visit * Reason Onset Date Comments Med Refill 03/09/2024 Encounter Details Date Type Department Care Team (Late st Contact Info) Description 03/09/2024 Telephone [facility] MEDICINE [address] [place] [address] Nathalie Hsu MD [address] [place], [place] [phone] Med Refill Social History Tobacco Use Types [...] 9:13 AM EST Medication was sent to [facility] on 12/13/23 #60 with 3 refills. * Telephone Encounter - Alf Avilez - 03/09/2024 9:07 AM EST TC from pt requesting medication refill. Medications needing refill : melatonin 5 MG tablet To be sent to: [facility] documented in this encounter Plan of Treatment Upcoming Encounters Date Type Department Care Team (Late st Contact Info) Description 04/24/2025 11:30 AM EST Office Visit [facility]EDS [address] [place], [place] [phone] Sheila Grant MD [address] [place] [address] 07/02/2025 1:00 PM EDT Office Visit [facility] OPTOMETRY [address] [place] [address] Seth, Zabrina, OD [address] [place] [address] 07/24/2025 2:00 PM EDT Office Visit [facility] ADULT DENTAL [address] [place] [address] Ulises, Chiquita [address] [place] [address] documented as of this encounter Visit Diagnoses Not on filedocumented in this encounter Additional Health Concerns Assessment Noted Time PHQ-9 Depression Total Score: 0 06/09/19 9:13 AM EST documented as of this encounter Care Teams Speech Teacher Relationship Specialty Start Date End Date Nathalie Hsu MD [address] [place] [address] PCP - General Family Medicine 09/27/13 Shannan Barrow, KHAI [address] [place] [address] Registered Nurse 02/29/24 Lisbeth Johnson [address] [place] [address] Drive 3rd [place] [address] Gastroenterology 03/15/24 Tonya Poole Glass WorkerInpatient Nursing Aide 01/19/24 Sherin ([facility]) Registered Nurse 02/29/24 Marcos Verdin MD [place] [facility] [address] [place], [place] Cardiology 03/10/24 Omid Vincent Psychiatry 03/15/24 documented as of this encounter
--- OUTSIDE RECORDS SUMMARY | 2025-02-28 05:03 | XMS_ITS | Encounter Summary ---
Author Organization [employer] Address [address] [facility] [address] 7t [place] [address] Care Team Providers Care Coding Support Specialist Name Role Phone [place], Nathalie ABDI Primary Care Provider +1- [phone] Shannan Barrow RN Unavailable [phone] Lisbeth Johnson Unavailable Reason for Visit * Reason Onset Date Comments Dr. Lamas medication 06/20/2024 Encounter Details Date Type Department Care Team (Late st Contact Info) Description 06/20/2024 Telephone [facility] ADULT DENTAL [address] [place], [place] [phone] Panchito Lamas DDS [address] [place], [place] [phone] Dr. Lamas medication Social History Tobacco Use [...] Description 04/24/2025 11:30 AM EST Office Visit [facility] CHC MED & PEDS 505 [place] [address] Sheila Grant MD 505 [place] [address] 07/02/2025 1:00 PM EDT Office Visit [facility] OPTOMETRY [address] [place] [address] Seth, Zabrina, OD 230 [place] [address] 07/24/2025 2:00 PM EDT Office Visit [facility] ADULT DENTAL 230 [place] [address] Ulises, Chiquita 230 [place] [address] documented as of this encounter Visit Diagnoses Not on filedocumented in this encounter Additional Health Concerns Assessment Noted Time PHQ-9 Depression Total Score: 0 06/09/19 9:13 AM EST documented as of this encounter Care Teams Coding Support Specialist Relationship Specialty Start Date End Date Nathalie Hsu MD 230 [place] [address] PCP - General Family Medicine 09/27/13 Shannan Barrow, RN 230 [place] [address] Registered Nurse 02/29/[address] 3rd [place] [address] Gastroenterology 03/15/24 Tonya Poole Casing PullerPsychiatric Np 01/19/24 Sherin ([facility]) Registered Nurse 02/29/24 Marcos Verdin MD [place] [facility] [address] [place], [place] Cardiology 03/10/24 Omid Vincent Psychiatry 03/15/24 documented as of this encounter
--- OUTSIDE RECORDS SUMMARY | 2025-02-28 05:03 | XMS_ITS | Encounter Summary ---
Author Organization [employer] Address [address] [facility] 7t [place] [address] Care Team Providers Care Associate Professor Of Radiology Name Role Phone Nathalie Hsu MD Primary Care Provider [phone]- [phone] Shannan Barrow RN Unavailable [phone] Lisbeth Johnson Unavailable Reason for Visit * Reason Onset Date Comments Med Refill 07/01/2023 Encounter Details Date Type Department Care Team (Late st Contact Info) Description 07/01/2023 Telephone [facility] MEDICINE 230 [place], [place] [phone] Nathalie Hsu MD 230 [place], [place] [phone] Med Refill Social History Tobacco Use Types [...] the past 12 months, has t he [employer], [place], oil or water [employer] threatened to shut off services in your [...] 9:11 AM EDT Medication was sent to [facility] on 03/03/23 90 day supply with 1 refill. * Telephone Encounter - Amie Ramsey - 07/01/2023 9:06 AM EDT TC from pt requesting medication refill. Medications needing refill : pantoprazole (ProtoNix) 40 MG EC tablet To be sent to: [facility] - [place], [place] - 230 [facility] 230 [facility] [phone] documented in this encounter Plan of Treatment Upcoming Encounters Date Type Department Care Team ([place] [facility] st Contact Info) Description 04/24/2025 11:30 AM EST Office Visit [facility] CHC MED & PEDS 505 [place] [address] Sheila Grant MD 505 [place] [address] 07/02/2025 1:00 PM EDT Office Visit [facility] OPTOMETRY [address] [place] [address] SethZabrina funes, OD 230 [place] [address] 07/24/2025 2:00 PM EDT Office Visit [facility] ADULT DENTAL 230 [place] [address] Ulises, Chiquita 230 [place] [address] documented as of this encounter Visit Diagnoses Not on filedocumented in this encounter Additional Health Concerns Assessment Noted Time PHQ-9 Depression Total Score: 0 06/09/19 9:13 AM EST documented as of this encounter Care Teams Associate Professor Of Radiology Relationship Specialty Start Date End Date Nathalie Hsu MD 230 [place] [address] PCP - General Family Medicine 09/27/13 Shannan Barrow, KHAI [address] [place] [address] Registered Nurse 02/29/24 Lisbeth Johnson [address] [place] [address] 3[address] [place] [address] Gastroenterology 03/15/24 Tonya Poole Manager PlanningAssociate Director Finance 01/19/24 Sherin ([facility]) Registered Nurse 02/29/24 Marcos Verdin MD [place] [facility] [address] [place], [place] Cardiology 03/10/24 Omid Vincent Psychiatry 03/15/24 documented as of this encounter
--- OUTSIDE RECORDS SUMMARY | 2025-02-28 05:03 | XMS_ITS | Encounter Summary ---
Author Organization [employer] Address [address] [place] [address] [place] [address] Care Team Providers Care Pcmh Specialist Name Role Phone [place], Nathalie ABDI Primary Care Provider +1- [phone] Shannan Barrow RN Unavailable [phone] Lisbeth Johnson Unavailable Encounter Details Date Type Department Care Team (Late Contact Info) Description 11/27/2022 Orders Only [facility] MEDICINE 230 [place] [address] Jose Dockery 230 [place] [address] Social History Tobacco Use Types Packs/Day Years [...] Description 04/24/2025 11:30 AM EST Office Visit [facility] CHC MED & PEDS 505 [place], [place] [phone] Sheila Grant MD 505 [place], [place] [phone] 07/02/2025 1:00 PM EDT Office Visit [facility] OPTOMETRY [address] [place] [address] Zabrina Ann, OD 230 [place] [address] 07/24/2025 2:00 PM EDT Office Visit [facility] ADULT DENTAL 230 [place] [address] Ulises, Chiquita 230 [place] [address] documented as of this encounter Visit Diagnoses Not on filedocumented in this encounter Additional Health Concerns Assessment Noted Time PHQ-9 Depression Total Score: 6 05/08/19 23 10:33 AM EST documented as of this encounter Care Teams Pcmh Specialist Relationship Specialty Start Date End Date Nathalie Hsu MD 230 [place] [address] PCP - General Family Medicine 09/27/13 Shannan Barrow, KHAI 230 [place] [address] Registered Nurse 02/29/24 Lisbeth Johnson [address] [place] [address] 3rd [place] [address] Gastroenterology 03/15/24 Tonya Poole Auditor/[employer]Rock Lather 01/19/24 Sherin ([facility]) Registered Nurse 02/29/24 Marcos Verdin MD [place] [facility] [address] [place] [address] Cardiology 03/10/24 Omid Vincent Psychiatry 03/15/24 documented as of this encounter
--- OUTSIDE RECORDS SUMMARY | 2025-02-28 05:03 | XMS_ITS | Encounter Summary ---
Author Organization [employer] Address [address] [facility] [address] 7t [place] [address] Care Team Providers Care Director Translation Name Role Phone Nathalie Hsu MD Primary Care Provider [phone]- [phone] Shannan Barrow RN Unavailable [phone] Lisbeth Johnson Unavailable Reason for Visit * Reason Comments Med Refill Encounter Details Date Type Department Care Team (Late st Contact Info) Description 11/01/2023 Refill [facility] CHC MED & PEDS [address] [place], [place] [phone] Nathalie Hsu MD 230 [place], [place] [phone] Mild intermittent asthma, unspecified whether complicated Social [...] the past 12 months, has t he [employer] 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, 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 threatened to [...] 04/24/2025 11:30 AM EST Office Visit [facility] CHC MED & PEDS 505 [place] [address] Sheila Grant MD 505 [place] [address] 07/02/2025 1:00 PM EDT Office Visit [facility] OPTOMETRY 267 [place] [address] Seth, Zabrina, OD 230 [place] [address] 07/24/2025 2:00 PM EDT Office Visit [facility] ADULT DENTAL 230 [place] [address] Ulises, Chiquita 230 [place] [address] documented as of this encounter Visit Diagnoses Diagnosis Mild intermittent asthma, unspecified whether complicated documented in this encounter Additional Health Concerns Assessment Noted Time PHQ-9 Depression Total Score: 0 06/09/19 24 9:13 AM EST documented as of this encounter Care Teams Director Translation Relationship Specialty Start Date End Date Nathalie Hsu MD 230 [place] [address] PCP - General Family Medicine 09/27/13 Shannan Barrow, RN 230 [place] [address] Registered Nurse 02/29/24 Lisbeth Johnson [address] [place] [address] 3rd [place] [address] Gastroenterology 03/15/24 Tonya Poole Counter StitcherManager Of Medical 01/19/24 Sherin ([facility]) Registered Nurse 02/29/24 Marcos Verdin MD [place] [facility] [address] [place] [address] Cardiology 03/10/24 Omid Vincent Psychiatry 03/15/24 documented as of this encounter
--- OUTSIDE RECORDS SUMMARY | 2025-02-28 05:03 | XMS_ITS | Encounter Summary ---
Author Organization [employer] Address 75 [facility] 7t [place] [address] Care Team Providers Care Inspector Metal Can Name Role Phone Nathalie Hsu MD Primary Care Provider [phone]- [phone] Shannan Barrow RN Unavailable [phone] Lisbeth Johnson Unavailable Reason for Visit * Reason Onset Date Comments Results 01/12/2023 INR Encounter Details Date Type Department Care Team (Late st Contact Info) Description 01/12/2023 Telephone [facility] MEDICINE 230 [place] [address] Nathalie Hsu MD 230 [place], [place] [phone] Results (INR) Social History Tobacco Use Types [...] 12:36 PM EDT Tc from [facility] at [facility] reporting INR results. Please call [phone] documented in this encounter Plan of Treatment Upcoming Encounters Date Type Department Care Team (Late st Contact Info) Description 04/24/2025 11:30 AM EST Office Visit [facility] CHC MED & PEDS 505 [place] [address] Sheila Grant MD 505 [place] [address] 07/02/2025 1:00 PM EDT Office Visit [facility] OPTOMETRY [address] [place] [address] Seth, Zabrina, OD 230 [place] [address] 07/24/2025 2:00 PM EDT Office Visit [facility] ADULT DENTAL 230 [place] [address] Ulises, Chiquita 230 [place] [address] documented as of this encounter Visit Diagnoses Not on filedocumented in this encounter Additional Health Concerns Assessment Noted Time PHQ-9 Depression Total Score: 6 05/08/19 23 10:33 AM EST documented as of this encounter Care Teams Inspector Metal Can Relationship Specialty Start Date End Date Nathalie Hsu MD 230 [place] [address] PCP - General Family Medicine 09/27/13 Shannan Barrow, RN 230 [place] [address] Registered Nurse 02/29/24 Lisbeth Johnson [address] [place] [address] 3rd [place] [address] Gastroenterology 03/15/24 Tonya Poole Supervisory Air Intercept ControllerCoke Still Cleaner 01/19/24 Sherin ([facility]) Registered Nurse 02/29/24 Marcos Verdin MD [place] [facility] [address] [place] [address] Cardiology 03/10/24 Omid Vincent Psychiatry 03/15/24 documented as of this encounter
--- OUTSIDE RECORDS SUMMARY | 2025-02-28 05:04 | XMS_ITS | Encounter Summary ---
Author Organization [employer] Address 75 [facility] 7t [place] [address] Care Team Providers Care Used Car Lot Porter Name Role Phone Nathalie Hsu MD Primary Care Provider [phone]- [phone] Shannan Barrow RN Unavailable [phone] Lisbeth Johnson Unavailable Reason for Visit * Reason Comments Med Refill Encounter Details Date Type Department Care Team (Late st Contact Info) Description 08/14/2024 Refill [facility] MEDICINE 230 [place] [address] Nathalie Hsu MD 230 [place], [place] [phone] Alcoholic liver disease (CMS/HCC) Social History Tobacco [...] Description 04/24/2025 11:30 AM EST Office Visit [facility] CHC MED & PEDS 505 [place] [address] Sheila Grant MD 505 [place] [address] 07/02/2025 1:00 PM EDT Office Visit [facility] OPTOMETRY [address] [place] [address] Zabrina Ann, OD 230 [place] [address] 07/24/2025 2:00 PM EDT Office Visit [facility] ADULT DENTAL 230 [place] [address] Chiquita Montgomery 230 [place] [address] documented as of this encounter Visit Diagnoses Diagnosis Alcoholic liver disease Unspecified alcoholic liver damage documented in this encounter Additional Health Concerns Assessment Noted Time PHQ-9 Depression Total Score: 0 06/09/19 24 9:13 AM EST documented as of this encounter Care Teams Used Car Lot Porter Relationship Specialty Start Date End Date Nathalie Hsu MD 230 [place] [address] PCP - General Family Medicine 09/27/13 Shannan Barrow, RN 230 [place] [address] Registered Nurse 02/29/24 Lisbeth Johnson [address] [place] [address] 3rd [place] [address] Gastroenterology 03/15/24 Tonya Poole Net FisherSide Stapler 01/19/24 Sherin ([facility]) Registered Nurse 02/29/24 Marcos Verdin MD [place] [facility] [address] [place] [address] Cardiology 03/10/24 Omid Vincent Psychiatry 03/15/24 documented as of this encounter
--- OUTSIDE RECORDS SUMMARY | 2025-02-28 05:04 | XMS_ITS | Encounter Summary ---
Author Organization [employer] Address [address] [facility] [address] 7t [place] [address] Care Team Providers Care Pot Room Tapper Name Role Phone Nathalie Hsu MD Primary Care Provider +1- [phone] Shannan Barrow RN Unavailable [phone] Lisbeth Johnson Unavailable Encounter Details Date Type Department Care Team (Late st Contact Info) Description 05/12/2023 Orders Only [facility] MEDICINE 230 [place], [place] [phone] Nathalie Hsu MD 230 [place], [place] [phone] Social History Tobacco Use Types Packs/Day Years [...] Description 04/24/2025 11:30 AM EST Office Visit [facility] CHC MED & PEDS 505 [place] [address] Sheila Grant MD 505 [place] [address] 07/02/2025 1:00 PM EDT Office Visit [facility] OPTOMETRY [address] [place] [address] Seth, Zabrina, OD 230 [place] [address] 07/24/2025 2:00 PM EDT Office Visit [facility] ADULT DENTAL 230 [place] [address] Ulises, Chiquita 230 [place] [address] documented as of this encounter Visit Diagnoses Not on filedocumented in this encounter Additional Health Concerns Assessment Noted Time PHQ-9 Depression Total Score: 6 05/08/19 23 10:33 AM EST documented as of this encounter Care Teams Pot Room Tapper Relationship Specialty Start Date End Date Nathalie Hsu MD [address] [place] [address] PCP - General Family Medicine 09/27/13 Shannan Barrow RN 230 [place] [address] Registered Nurse 02/29/24 Lisbeth Johnson [address] 3rd [place] [address] Gastroenterology 03/15/24 Tonya Poole Gantry Crane OperatorSlasher Operator 01/19/24 Sherin ([facility]) Registered Nurse 02/29/24 Marcos Verdin MD [place] [facility] [address] [place] [address] Cardiology 03/10/24 Omid Vincent Psychiatry 03/15/24 documented as of this encounter
--- OUTSIDE RECORDS SUMMARY | 2025-02-28 05:04 | XMS_ITS | Encounter Summary ---
Author Organization [employer] Address 75 [facility] 7t [place] [address] Care Team Providers Care Bid Writer Name Role Phone Nathalie Hsu MD Primary Care Provider [phone]- [phone] Shannan Barrow RN Unavailable [phone] Lisbeth Johnson Unavailable Reason for Visit * Reason Comments Med Refill Encounter Details Date Type Department Care Team (Late st Contact Info) Description 02/28/2023 Refill [facility] MEDICINE 230 [place], [place] [phone] Nathalie Hsu MD 230 [place], [place] [phone] Social History Tobacco Use Types Packs/Day Years [...] Description 04/24/2025 11:30 AM EST Office Visit [facility] CHC MED & PEDS 505 [place] [address] Sheila Grant MD 505 [place] [address] 07/02/2025 1:00 PM EDT Office Visit [facility] OPTOMETRY [address] [place] [address] Seth, Zabrina, OD 230 [place] [address] 07/24/2025 2:00 PM EDT Office Visit [facility] ADULT DENTAL 230 [place] [address] Ulises, Chiquita 230 [place] [address] documented as of this encounter Visit Diagnoses Not on filedocumented in this encounter Additional Health Concerns Assessment Noted Time PHQ-9 Depression Total Score: 6 05/08/19 23 10:33 AM EST documented as of this encounter Care Teams Bid Writer Relationship Specialty Start Date End Date Nathalie Hsu MD [address] [place] [address] PCP - General Family Medicine 09/27/13 Shannan Barrow, KHAI [address] [place] [address] Registered Nurse 02/29/24 Alex Lisbeth [address] 3rd [place] [address] Gastroenterology 03/15/24 Tonya Poole Maintainer Central OfficePigment Making Supervisor 01/19/24 Sherin ([facility]) Registered Nurse 02/29/24 Marcos Verdin MD [place] [facility] [address] [place] [address] Cardiology 03/10/24 Omid Vincent Psychiatry 03/15/24 documented as of this encounter
--- OUTSIDE RECORDS SUMMARY | 2025-02-28 05:04 | XMS_ITS | Encounter Summary ---
Author Organization [employer] [facility] Address 75 [facility] 7t [place] [address] Care Team Providers Care Wire Hanger Name Role Phone Nathalie Hsu MD Primary Care Provider [phone]- [phone] Shannan Barrow RN Unavailable [phone] Lisbeth Johnson Unavailable Encounter Details Date Type Department Care Team (Late st Contact Info) Description 05/12/2022 Abstract [facility] MEDICINE 230 [place] [address] Nathalie Hsu MD 230 [place] [address] Social History Tobacco Use Types Packs/Day Years [...] Description 04/24/2025 11:30 AM EST Office Visit [facility] CHC MED & PEDS [address] [place] [address] Sheila Grant MD 505 [place] [address] 07/02/2025 1:00 PM EDT Office Visit [facility] OPTOMETRY [address] [place] [address] SethAshutosh funesn, OD 230 [place] [address] 07/24/2025 2:00 PM EDT Office Visit [facility] ADULT DENTAL 230 [place] [address] Ulises, Chiquita 230 [place] [address] documented as of this encounter Procedures Procedure [...] documented as of this encounter Care Teams Wire Hanger Relationship Specialty Start Date End Date Nathalie Hsu MD [address] [place] [address] PCP - General Family Medicine 09/27/13 Shannan Barrow, KHAI [address] [place] [address] Registered Nurse 02/29/24 Lisbeth Johnson [address] [place] [address] Drive 3rd [place] [address] Gastroenterology 03/15/24 Tonya Poole DoulaIndustrial Production Manager 01/19/24 Sherin ([facility]) Registered Nurse 02/29/24 Marcos Verdin MD [place] [facility] [address] [place] [address] Cardiology 03/10/24 Omid Vincent Psychiatry 03/15/24 documented as of this encounter
--- OUTSIDE RECORDS SUMMARY | 2025-02-28 05:04 | XMS_ITS | Encounter Summary ---
Author Organization [employer] Address [address] 7t [place] [address] Care Team Providers Care Edging Machine Setter Name Role Phone Nathalie Hsu MD Primary Care Provider [phone]- [phone] Shannan Barrow RN Unavailable [phone] Lisbeth Johnson Unavailable Reason for Visit * Reason Onset Date Comments INR report 03/31/2023 Encounter Details Date Type Department Care Team (Late st Contact Info) Description 03/31/2023 Telephone [facility] MEDICINE 230 [place], [place] [phone] Nathalie Hsu MD 230 [place], [place] [phone] INR report Social History Tobacco Use Types [...] Miscellaneous Notes * Telephone Encounter - Garry Shook - 03/31/2023 3:39 PM EST Tc from Raman VALE with [employer] requesting a call from a nurse to report an INR results. Please contact Raman @ [phone] documented in this encounter Plan of Treatment Upcoming Encounters Date Type Department Care Team (Late st Contact Info) Description 04/24/2025 11:30 AM EST Office Visit [facility] CHC MED & PEDS [address] [place] [address] Sheila Grant MD 505 [place] [address] 07/02/2025 1:00 PM EDT Office Visit [facility] OPTOMETRY [address] [place] [address] Seth, Zabrina, OD 230 [place] [address] 07/24/2025 2:00 PM EDT Office Visit [facility] ADULT DENTAL 230 [place] [address] Ulises, Chiquita 230 [place] [address] documented as of this encounter Visit Diagnoses Not on filedocumented in this encounter Additional Health Concerns Assessment Noted Time PHQ-9 Depression Total Score: 6 05/08/19 23 10:33 AM EST documented as of this encounter Care Teams Edging Machine Setter Relationship Specialty Start Date End Date Nathalie Hsu MD 230 [place] [address] PCP - General Family Medicine 09/27/13 Shannan Barrow, RN 230 [place] [address] Registered Nurse 02/29/24 Lisbeth Johnson [address] 3rd [place] [address] Gastroenterology 03/15/24 Tonya Poole Industrial Hygiene TechnicianGore Inserter 01/19/24 Sherin ([facility]) Registered Nurse 02/29/24 Marcos Verdin MD [place] [facility] [address] [place] [address] Cardiology 03/10/24 Omid [place] Psychiatry 03/15/24 documented as of this encounter
--- OUTSIDE RECORDS SUMMARY | 2025-02-28 05:04 | XMS_ITS | Encounter Summary ---
Author Organization [employer] Address 75 [facility] 7t [place] [address] Care Team Providers Care Carpenter Ship Name Role Phone Nathalie Hsu MD Primary Care Provider +1- [phone] Shannan Barrow RN Unavailable [phone] Lisbeth Johnson Unavailable Reason for Visit * Reason Onset Date Comments INR result 02/27/2025 Encounter Details Date Type Department Care Team ([facility] st Contact Info) Description 02/27/2025 Telephone C PEDIATRICS 230 [place] [address] Nathalie Hsu MD 230 [place] [address] INR result Social History Tobacco Use Types Packs/Day Years [...] Telephone Encounter - Shannan Barrow RN - 02/27/2025 4:08 PM EST S: Pt is due for PT/INR today due to hx of DVT's. Pt's target INR is 2.5-3.5. This RN spoke with KAVIN Duff. Pt has been compliant with INR draws. Pt is a daily VNA pt so she checks on him everyday. INR today is 3.2. Pt took all doses of warfarin as Rxd this past week. She did want to report that pttold her that his psychiatrist gave him a Rx for Ambien. He wouldn't let Sherin see the bottle to check dose or prescriber. She wanted to notify us as she knows he has a history of Ambien overdose andwasn't supposed to be on Ambien. O: INR today: 3.3 Current orders: take 5mg W, Benoit/ 2.5mg the rest of the week A: Hx of DVT Risk for blood clot due to sub therapeutic INR Hx of afib Hx of prosthetic heart valve P: Orders are to continue same dose and recheck INR 03/06/25. Pt's INR fluctuates frequently based on ETOH use. VNA goes to house daily and frequently checks INR in between ordered draws for pt safety. Please try to abstain from alcohol use. VNA aware of dosing and draw date. Shannan Barrow RN * Telephone Encounter - Ioana Loomis RN - 02/27/2025 3:53 PM EST Incoming call from Sherin RIDLEY , visiting nurse . Sherin reported the pt's INR today is 3.2 . A warm hand off call was given to Greta RIDLEY . Will route this message to the green team nurses ,and the pt's PCP for review. TY. documented in this encounter Plan of Treatment Upcoming Encounters Date Type Department Care Team (Late st Contact Info) Description 04/24/2025 11:30 AM EST Office Visit [facility] CHC MED & PEDS 505 [place] [address] Sheila Grant MD 505 [place] [address] 07/02/2025 1:00 PM EDT Office Visit [facility] OPTOMETRY [address] [place] [address] Seth, Zabrina, OD 230 [place] [address] 07/24/2025 2:00 PM EDT Office Visit [facility] ADULT DENTAL 230 [place] [address] Ulises, Chiquita 230 [place] [address] documented as of this encounter Procedures Procedure Name Priority Date/Time Associated Diagnosis Comments PROTHROMBIN TIME-INR Routine 02/27/2025 documented in this encounter Results * Prothrombin Time-INR (02/27/2025) INR 3.20 2.50 - 3.50 EXTERNAL LAB [...] documented as of this encounter Care Teams Carpenter Ship Relationship Specialty Start Date End Date Nathalie Hsu MD 230 [place] [address] PCP - General Family Medicine 09/27/13 Shannan Barrow, KHAI [address] [place] [address] Registered Nurse 02/29/24 Lisbeth Johnson [address] [place] [address] 3rd [place] [address] Gastroenterology 03/15/24 Tonya Poole Clerical Administrative AssistantWeb Content Executive 01/19/24 Sherin ([facility]) Registered Nurse 02/29/24 Marcos Verdin MD [place] [facility] [address] [place] [address] Cardiology 03/10/24 Omid Vincent Psychiatry 03/15/24 documented as of this encounter
--- OUTSIDE RECORDS SUMMARY | 2025-02-28 05:04 | XMS_ITS | Encounter Summary ---
Author Organization [employer] Address [address] [facility] [address] 7t [place] [address] Care Team Providers Care Tank Bottom Assembler Name Role Phone Nathalie Hsu MD Primary Care Provider [phone]- [phone] Shannan Barrow RN Unavailable [phone] Lisbeth Johnson Unavailable Reason for Visit * Reason Onset Date Comments Coagulation Disorder 05/12/2023 Encounter Details Date Type Department Care Team (Late st Contact Info) Description 05/12/2023 Telephone [facility] MEDICINE [address] [place], [place] [phone] Nathalie Hsu MD 230 [place], [place] [phone] Coagulation Disorder Social History Tobacco Use Types [...] to report INR. Please contact robert at [phone] documented in this encounter Plan of Treatment Upcoming Encounters Date Type Department Care Team (Late st Contact Info) Description 04/24/2025 11:30 AM EST Office Visit [facility] CHC MED & PEDS 505 [place] [address] Sheila Grant MD 505 [place] [address] 07/02/2025 1:00 PM EDT Office Visit [facility] OPTOMETRY [address] [place] [address] Seth, Zabrina, OD 230 [place] [address] 07/24/2025 2:00 PM EDT Office Visit [facility] ADULT DENTAL 230 [place] [address] Ulises, Chiquita 230 [place] [address] documented as of this encounter Visit Diagnoses Not on filedocumented in this encounter Additional Health Concerns Assessment Noted Time PHQ-9 Depression Total Score: 6 05/08/19 23 10:33 AM EST documented as of this encounter Care Teams Tank Bottom Assembler Relationship Specialty Start Date End Date Nathalie Hsu MD 230 [place] [address] PCP - General Family Medicine 09/27/13 Shannan Barrow, RN 230 [place] [address] Registered Nurse 02/29/24 Lisbeth Johnson [address] [place] [address] Drive 3rd [place] [address] Gastroenterology 03/15/24 Tonya Poole Buddhist MonkBezel Cutter 01/19/24 Sherin ([facility]) Registered Nurse 02/29/24 Marcos Verdin MD [facility] [address] [place] [address] Cardiology 03/10/24 Omid [place] [facility] 03/15/24 documented as of this encounter
--- OUTSIDE RECORDS SUMMARY | 2025-02-28 05:04 | XMS_ITS | Encounter Summary ---
Author Organization [employer] Address [address] [place] [address] [place] [address] Care Team Providers Care Insurance Agency Sales Manager Name Role Phone [place], Nathalie ABDI Primary Care Provider + [phone] Shannan Barrow RN Unavailable [phone] Lisbeth Johnson Unavailable Encounter Details Date Type Department Care Team (Late st Contact Info) Description 04/01/2022 Orders Only [facility] MEDICINE 230 [place] [address] Anabell Weston, KHAI Social History Tobacco Use [...] Department Care Team (Late Contact Info) Description 04/24/2025 11:30 AM EST Office Visit [facility] CHC MED & PEDS 505 [place] [address] Sheila Grant MD 505 [place] [address] 07/02/2025 1:00 PM EDT Office Visit [facility] OPTOMETRY [address] [place] [address] Zabrina Ann, OD 230 [place] [address] 07/24/2025 2:00 PM EDT Office Visit [facility] ADULT DENTAL 230 [place], [place] [phone] Chiquita Montgomery 230 [place] [address] documented as of this encounter Visit Diagnoses Not on filedocumented in this encounter Care Teams Insurance Agency Sales Manager Relationship Specialty Start Date End Date Nathalie Hsu MD 230 [place], [place] [phone] PCP - General Family Medicine 09/27/13 Shannan Barrow, KHAI 230 [place], [place] [phone] Registered Nurse 02/29/24 Lisbeth Johnson [address] [place] [address] 3rd [place] [address] Gastroenterology 03/15/24 Tonya Poole Wealth Management ManagerGlass Handler 01/19/24 Sherin ([facility]) Registered Nurse 02/29/24 Marcos Verdin MD [place] [facility] [address] [place] [address] Cardiology 03/10/24 Omid Vincent Psychiatry 03/15/24 documented as of this encounter
--- OUTSIDE RECORDS SUMMARY | 2025-02-28 05:04 | XMS_ITS | Encounter Summary ---
Author Organization [employer] Address 75 [facility] 7t [place] [address] Care Team Providers Care Assistant Professor Of Biology Name Role Phone Nathalie Hsu MD Primary Care Provider [phone]- [phone] Shannan Barrow RN Unavailable [phone] Lisbeth Johnson Unavailable Reason for Visit * Reason Comments Med Refill Encounter Details Date Type Department Care Team (Late st Contact Info) Description 02/12/2023 Refill [facility] MEDICINE 230 [place] [address] Nathalie Hsu MD 230 [place], [place] [phone] Pain Social History Tobacco Use Types Packs/Day [...] Description 04/24/2025 11:30 AM EST Office Visit [facility] CHC MED & PEDS 505 [place] [address] Sheila Grant MD 505 [place] [address] 07/02/2025 1:00 PM EDT Office Visit [facility] OPTOMETRY [address] [place] [address] Seth, Zabrina, OD 230 [place] [address] 07/24/2025 2:00 PM EDT Office Visit [facility] ADULT DENTAL 230 [place] [address] Ulises, Chiquita 230 [place] [address] documented as of this encounter Visit Diagnoses Diagnosis Pain Generalized pain documented in this encounter Additional Health Concerns Assessment Noted Time PHQ-9 Depression Total Score: 6 05/08/19 23 10:33 AM EST documented as of this encounter Care Teams Assistant Professor Of Biology Relationship Specialty Start Date End Date Nathalie Hsu MD [address] [place] [address] PCP - General Family Medicine 09/27/13 Shannan Barrow, KHAI [address] [place] [address] Registered Nurse 02/29/24 Alex Lisbeth [address] 3rd [place] [address] Gastroenterology 03/15/24 Tonya Poole Machine Operator Slitter TechnicianTemple Marker 01/19/24 Sherin (A [facility]) Registered Nurse 02/29/24 Marcos Verdin MD [facility] [address] [place] [address] Cardiology 03/10/24 Omid Vincent Psychiatry 03/15/24 documented as of this encounter
[2025-02-28 05:55] LABS: OBS Int Ctl Valid YES; OBS1 NEGATIVE (NEGATIVE)
[2025-02-28 06:02] VITALS: BP 108/70; PULSE 84; RESP 16; TEMP 36.6; O2SAT 96
--- NOTE | 2025-02-28 06:14 | PC.NURSE ---
Patient brought in by ambulance for unwitnessed fall outside of apartment, pt intoxicated, unknown thinners and positive head strike. Patient sleeping and upon arrival, unable to answer questions appropriately. Labs drawn, IV #22 in R-wrist. IV fluids administered. Ct clear, collar removed by provider. Pt medicated with Klorcon per orders. Pt discharged by provider, able to leave with a sober ride. Brother called and informed of patients current condition and discharge. Brother Ruben has no car, will call and try to get a ride for patient. Patient then attempting to get out of bed, unaware of surroundings, or of fall. Patient incontinent of urine and stool. Stool dark, black looking. notified and laura ordered and sent to lab, Patient cleaned, dry hospital attire applied, tab alarm on patient and back to bed. Patient made aware of plan with the assistance of locomotive engineer.
--- NOTE | 2025-02-28 07:16 | PC.NURSE ---
continues to attempt to find ride home, spoke with family on phone who states he does not have a car but will attempt to find a ride to pick him up
--- NOTE | 2025-02-28 07:42 | PC.NURSE ---
attempted to call hospital van x3 w/ no answer. patient states he often uses this to get home. unable to find ride home from family/friends
--- NOTE | 2025-02-28 08:08 | PC.NURSE ---
ambulates with independently with steady gait speaking in full clear sentences
[2025-02-28 08:11] VITALS: BP 108/70; PULSE 84; RESP 16; TEMP 36.6; O2SAT 96
== END 2025-02-28 08:11 | disposition home or self-care (01) ==
PROVIDERS: Physician Assistant Medical; Emergency Provider Emergency Medicine
DX: F10.129 Alcohol abuse with intoxication, unspecified (principal); Y90.7 Blood alcohol level of 200-239 mg/100 ml; E86.0 Dehydration; E87.6 Hypokalemia; I10 Essential (primary) hypertension; E78.5 Hyperlipidemia, unspecified; I25.10 Atherosclerotic heart disease of native coronary artery without angina pectoris
CPT/HCPCS: 36415; 70450; 72125; 80048; 80307; 82272; 83735; 85025; 96360; 96361; 99284; J7120

== ENCOUNTER → 2025-02-28 01:38 | Outpatient (BNV) | payer MEDICAID, SELFPAY | PROVIDERS: Emergency Provider Emergency Medicine; Visit Provider General Practice | DX: Z04.3 Encounter for examination and observation following other accident (principal) | CPT/HCPCS: 70450; 72125 ==

== ENCOUNTER 2025-04-01 00:47 | Emergency (ER) | payer MEDICAID, SELFPAY ==
--- NOTE | 2025-04-01 | ECG_ITS ---
Test Reason : CP Blood Pressure : */* mmHG Vent. Rate : 84 BPM Atrial Rate : 84 BPM P-R Int : 154 ms QRS Dur : 184 ms QT Int : 436 ms P-R-T Axes : -18 89 264 degrees QTcB Int : 515 ms Atrial-sensed ventricular-paced rhythm with Premature atrial complexes Abnormal ECG When compared with ECG of 15-Dec-2024 12:27, Vent. rate has decreased by 7 bpm Referred By: Generic ED Physician Electronically Signed By: EMILIE LEVY MD
--- NOTE | ~2025-04-01 | CT_ITS ---
CLINICAL HISTORY: fall, L chest rib pain CT chest without contrast Comparison: 08/31/2024 Findings: The heart is normal size. The visualized thyroid and mediastinum are unremarkable. No consolidation or effusion. The visualized upper abdomen is unremarkable. 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 There are no acute fractures. IMPRESSION: 1. No acute findings This document has been electronically signed by: Roney Henderson MD on 04/01/2025 07:06:22
--- NOTE | ~2025-04-01 | XR_ITS ---
CLINICAL HISTORY: chest pain 2 view chest x-ray Comparison: CR/SR - XR CHEST 2V - 12/15/24 13:17 EDT Findings: No consolidation or effusion. Right subclavian dual lead pacemaker with leads in the right atrium and right ventricle. Heart size is normal. Sternotomy wires are present. Prosthetic valve overlies the heart. No acute fracture. IMPRESSION: 1. No acute findings. This document has been electronically signed by: Suhas Cleveland MD on 04/01/2025 02:15:08
[2025-04-01 00:54] VITALS: BP 113/70; BP 129/69; PULSE 83; PULSE 88; RESP 22; TEMP 36.9; O2SAT 93; O2SAT 98; BMI 23.3
[2025-04-01 01:06] VITALS: BP 140/71; PULSE 83; RESP 13; TEMP 36.9; O2SAT 93
[2025-04-01 01:12] LABS: Hematocrit 39.1 % (42.0-52.0); Hemoglobin 13.0 g/dl (14.0-18.0); Imm Gran Abs Auto 0.05 X10*3/uL (0.00-0.03); Imm Gran Pct Auto 0.9 % (0.0-0.4); Lymphocytes Absolute Auto 1.1 X10*3/uL (1.2-4.9); MANUAL DIFF FLAG NO; Mean Corpuscular HGB Conc 33.2 g/dl (31.0-36.0); Mean Corpuscular Hemoglobin 33.4 pg (27.0-33.0); Mean Corpuscular Volume 100.5 fL (80.0-98.0); NRBC Abs Auto 0.000 X10*3/uL (0.0-0.012); NRBC Pct Auto 0.0 /100WBC (0.0-0.2); Platelet Count 196 X10*3/uL (160-400); Red Blood Count 3.89 X10*6/uL (4.60-5.80); White Blood Count 5.3 X10*3/uL (4.8-10.8)
[2025-04-01 01:19] LABS: INTERNATIONAL NORM RATIO 4.1 (0.9-1.1); Prothrombin Time 48.4 SEC (11.2-13.5)
[2025-04-01 01:28] LABS: Alanine Aminotransferase 14 U/L (0-40); Albumin Level 3.5 g/dL (3.5-5.0); Alkaline Phosphatase 160 U/L (39-117); Anion Gap 12 (12-20); Aspartate Amino Transferase 34 U/L (5-37); Blood Urea Nitrogen 14 mg/dL (9-16); Calcium 8.6 mg/dL (8.4-10.2); Carbon Dioxide 18 mmol/L (22-29); Chloride 107 mmol/L (96-108); Creatinine Clr Calc Pharmacy 53.8; Estimated Glomerular Filt Rate > 60; Magnesium 1.7 mg/dL (1.6-2.6); Potassium 4.4 mmol/L (3.3-5.1); Sodium 133 mmol/L (135-145); Total Protein 6.9 g/dL (6.5-8.0)
[2025-04-01 01:34] LABS: Troponin-I High Sensitivity 3.2 ng/L (<3.5-35.0)
[2025-04-01 01:48] LABS: Resp Syncy Virus RNA Qual PCR NEGATIVE (Negative); SARS COV2 PCR INHOUSE NEGATIVE (Negative)
--- OUTSIDE RECORDS SUMMARY | 2025-04-01 03:05 | XMS_ITS | Encounter Summary ---
Author Organization [employer] Address 75 [facility] 7t [place] [address] Care Team Providers Care Stamp Redemption Clerk Name Role Phone Nathalie Hsu MD Primary Care Provider [phone] Shannan Barrow RN Unavailable [phone] Lisbeth Johnson Unavailable Encounter Details Date Type Department Care Team (Late st Contact Info) Description 08/11/2023 Telephone [facility] MEDICINE 230 [place], [place] [phone] Nathalie Hsu MD 230 [place], [place] [phone] Social History Tobacco Use Types Packs/Day Years [...] [facility] CH[facility] PEDS 505 [place] [address] Sheila Grant MD 505 [place] [address] 05/08/2025 10:30 AM EST Office Visit [facility] ADULT DENTAL 230 [place] [address] Panchito Lamas, NETTAS 230 [place] [address] 05/29/2025 11:00 AM EST Office Visit [facility] ADULT DENTAL 230 [place] [address] Ulises Chiquita 230 [place] [address] 07/02/2025 1:00 PM EDT Office Visit [facility] OPTOMETRY [address] [place] [address] Zabrina Ann, OD 230 [place] [address] 07/24/2025 2:00 PM EDT Office Visit [facility] ADULT DENTAL 230 [place] [address] Chiquita Montgomery 230 [place] [address] documented as of this encounter Visit Diagnoses Not on filedocumented in this encounter Additional Health Concerns Assessment Noted Time PHQ-9 Depression Total Score: 0 06/09/19 9:13 AM EST documented as of this encounter Care Teams Stamp Redemption Clerk Relationship Specialty Start Date End Date Nathalie Hsu MD 230 [place] [address] PCP - General Family Medicine 09/27/13 Shannan Barrow, RN [address] [place] [address] Registered Nurse 02/29/24 Lisbeth Johnson [address] [place] [address] Drive 3rd [place] [address] Gastroenterology 03/15/24 Tonya Poole Oracle Soa ConsultantWholesaler 01/19/24 Sherin (A [facility]) Registered Nurse 02/29/24 Marcos Verdin MD [place] [facility] [address] [place] [address] Cardiology 03/10/24 Omid Vincent Psychiatry 03/15/24 [employer] 05/17/22 documented as of this encounter
--- OUTSIDE RECORDS SUMMARY | 2025-04-01 03:05 | XMS_ITS | Encounter Summary ---
Author Organization [employer] Address [address] [facility] [address] 7t [place] [address] Care Team Providers Care K 12 School Professional Name Role Phone Nathalie Hsu MD Primary Care Provider [phone]- [phone] Shannan Barrow RN Unavailable [phone] Lisbeth Johnson Unavailable Reason for Visit * Reason Onset Date Comments PT-1 05/26/2024 Encounter Details Date Type Department Care Team (Late st Contact Info) Description 05/26/2024 Telephone [facility] MED[facility] 230 [place] [address] Nathalie Hsu MD 230 [place], [place] [phone] PT-1 Social History Tobacco Use Types Packs/Day [...] Y/N: Yes Provider name or facility name: [place] [address] Escort needed: Y/N: No Do you have a wheelchair: Y/N: No If yes- Manual or electric: N/A Visits: (amount of visits) ( x monthly, weekly, daily) 2 times per month. documented in this encounter Plan of Treatment Upcoming Encounters Date Type Department Care Team (Late st Contact Info) Description 04/24/2025 11:30 AM EST Office Visit [facility] ED MED & PEDS 505 [place], [place] [phone] Sheila Grant MD 505 [place] [address] 05/08/2025 10:30 AM EST Office Visit [facility] ADULT D[facility] [address] [facility] [place] [address] AjPanchtio ludwig, DDS 230 [place] [address] 05/29/2025 11:00 AM EST Office Visit [facility] AD[facility] [address] [facility] [place] [address] Ulises, Chiquita 230 [place] [address] 07/02/2025 1:00 PM EDT Office Visit [facility] OPTOMETRY [address] [place] [address] Seth, Zabrina, OD 230 [place] [address] 07/24/2025 2:00 PM EDT Office Visit [facility] ADULT DENT[facility] [address] [facility] [place] [address] Ulises Chiquita 230 [place] [address] documented as of this encounter Visit Diagnoses Not on filedocumented in this encounter Additional Health Concerns Assessment Noted Time PHQ-9 Depression Total Score: 0 06/09/19 24 9:13 AM EST documented as of this encounter Care Teams K 12 School Professional Relationship Specialty Start Date End Date Nathalie Hsu MD 230 [place] [address] PCP - General Family Medicine 09/27/13 Shannan Barrow, KHAI 230 [place] [address] Registered Nurse 02/29/24 Lisbeth Johnson [address] 3rd [place] [address] Gastroenterology 03/15/24 Tonya Poole Battery Tester And RepairerPillowcase Sewer 01/19/24 Sherin (VNA S) Registered Nurse 02/29/24 Marcos Verdin MD [place] [facility] [address] [place] [address] Cardiology 03/10/24 Omid Vincent Psychiatry 03/15/24 [employer] 05/17/22 documented as of this encounter
--- OUTSIDE RECORDS SUMMARY | 2025-04-01 03:05 | XMS_ITS | Encounter Summary ---
Author Organization [employer] Address [address] [facility] [address] 7t [place] [address] Care Team Providers Care Boom Worker Name Role Phone Nathalie Hsu MD Primary Care Provider [phone]- [phone] Shannan Barrow RN Unavailable [phone] Lisbeth Johnson Unavailable Reason for Visit * Reason Comments Med Refill Encounter Details Date Type Department Care Team (Late st Contact Info) Description 03/28/2025 Refill [facility] CHC MED & PEDS [address] [place] [address] Nathalie Hsu MD 230 [place] [address] Mild intermittent asthma without complication; Hypomagnesemia Social History Tobacco Use Types Packs/Day [...] Description 04/24/2025 11:30 AM EST Office Visit [facility] CHC MED & PEDS 505 [place] [address] Sheila Grant MD 505 [place] [address] 05/08/2025 10:30 AM EST Office Visit [facility] ADULT DENTAL 230 [place] [address] Panchito Lamas DDS 230 [place] [address] 05/29/2025 11:00 AM EST Office Visit [facility] ADULT DENTAL 230 [place] [address] Chiquita Montgomery 230 [place] [address] 07/02/2025 1:00 PM EDT Office Visit [facility] OPTOMETRY [address] [place] [address] Zabrina Ann OD [address] [place] [address] 07/24/2025 2:00 PM EDT Office Visit [facility] ADULT DENTAL 230 [place] [address] Ulises, Chiquita 230 [place] [address] documented as of this encounter Visit Diagnoses Diagnosis Mild intermittent asthma without complication Hypomagnesemia Disorders of magnesium metabolism documented in this encounter Additional Health Concerns Assessment Noted Time PHQ-9 Depression Total Score: 0 09/21/19 25 3:24 PM EDT documented as of this encounter Care Teams Boom Worker Relationship Specialty Start Date End Date Nathalie Hsu MD 230 [place] [address] PCP - General Family Medicine 09/27/13 Shannan Barrow, KHAI [address] [place] [address] Registered Nurse 02/29/24 Lisbeth Johnson [address] [place] [address] 3rd [place] [address] Gastroenterology 03/15/24 Tonya Poole Cutter Apprentice HandLevel Glass Vial Filler 01/19/24 Sherin ([facility]) Registered Nurse 02/29/24 Marcos Verdin MD [place] [facility] [address] [place], [place] Cardiology 03/10/24 Omid Vincent Psychiatry 03/15/24 [employer] 05/17/22 documented as of this encounter
--- OUTSIDE RECORDS SUMMARY | 2025-04-01 03:05 | XMS_ITS | Encounter Summary ---
Author Organization [employer] Address [address] [place] [address] [address], [place] [address] Care Team Providers Care Senior Linux Systems Administrator Name Role Phone [facility], Nathalie ABDI Primary Care Provider [phone]- [phone] Shannan Barrow RN Unavailable [phone] Lisbeth Johnson Unavailable Encounter Details Date Type Department Care Team (Late Contact Info) Description 11/27/2022 Orders Only [facility] MEDICINE 230 [place] [address] Jose Dockery 230 [place] [address] Social History Tobacco Use Types Packs/Day Years [...] 11:30 AM EST Office Visit [facility] CHC MED & PEDS [address] [place], [place] [phone] Sheila Grant MD 505 [place], [place] [phone] 05/08/2025 10:30 AM EST Office Visit [facility] ADULT DENTAL 230 [place] [address] Panchito Lamas DDS 230 [place] [address] 05/29/2025 11:00 AM EST Office Visit [facility] ADULT DENTAL 230 [place] [address] Ulises, Chiquita 230 [place] [address] 07/02/2025 1:00 PM EDT Office Visit [facility] OPTOMETRY [address] [place] [address] Seth, Zabrina, OD 230 [place] [address] 07/24/2025 2:00 PM EDT Office Visit [facility] ADULT DENTAL 230 [place] [address] Ulises, Chiquita 230 [place] [address] documented as of this encounter Visit Diagnoses Not on filedocumented in this encounter Additional Health Concerns Assessment Noted Time PHQ-9 Depression Total Score: 6 05/08/19 23 10:33 AM EST documented as of this encounter Care Teams Senior Linux Systems Administrator Relationship Specialty Start Date End Date Nathalie Hsu MD 230 [place] [address] PCP - General Family Medicine 09/27/13 Shannan Barrow, KHAI 230 [place] [address] Registered Nurse 02/29/24 Lisbeth Johnson [address] [place] [address] Drive 3rd [place] [address] Gastroenterology 03/15/24 Tonya Poole Wrapping Machine HelperEmployee Health Nurse 01/19/24 Sherin (JASMEETA S) Registered Nurse 02/29/24 Marcos Verdin MD [place] [facility] [address] [place] [address] Cardiology 03/10/24 Omid Vincent Psychiatry 03/15/24 [employer] 05/17/22 documented as of this encounter
--- OUTSIDE RECORDS SUMMARY | 2025-04-01 03:05 | XMS_ITS | Encounter Summary ---
Author Organization [employer] Address [address] [facility] [address] 7t [place] [address] Care Team Providers Care Insole Doubler Name Role Phone Nathalie Hsu MD Primary Care Provider +1- [phone] Shannan Barrow RN Unavailable [phone] Lisbeth Johnson Unavailable Encounter Details Date Type Department Care Team (Late st Contact Info) Description 05/12/2023 Orders Only [facility] MEDICINE [address] [place], [place] [phone] Nathalie Hsu MD 230 [place], [place] [phone] Social History Tobacco Use Types Packs/Day Years [...] Description 04/24/2025 11:30 AM EST Office Visit [facility] CHC MED & PEDS 505 [place] [address] Sheila Grant MD 505 [place] [address] 05/08/2025 10:30 AM EST Office Visit [facility] ADULT DENTAL 230 [place] [address] Panchito Lamas DDS 230 [place] [address] 05/29/2025 11:00 AM EST Office Visit [facility] ADULT DENTAL 230 [place] [address] Ulises, Chiquita 230 [place] [address] 07/02/2025 1:00 PM EDT Office Visit [facility] OPTOMETRY [address] [place] [address] Zabrina Ann, OD 230 [place] [address] 07/24/2025 2:00 PM EDT Office Visit [facility] ADULT DENTAL 230 [place] [address] Ulises, Chiquita 230 [place] [address] documented as of this encounter Visit Diagnoses Not on filedocumented in this encounter Additional Health Concerns Assessment Noted Time PHQ-9 Depression Total Score: 6 05/08/19 23 10:33 AM EST documented as of this encounter Care Teams Insole Doubler Relationship Specialty Start Date End Date Nathalie Hsu MD 230 [place] [address] PCP - General Family Medicine 09/27/13 Shannan Barrow, RN 230 [place] [address] Registered Nurse 02/29/24 Lisbeth Johnson [address] [place] [address] 3rd [place] [address] Gastroenterology 03/15/24 Tonya Poole Camp TenderSoil Engineer 01/19/24 Sherin (A S) Registered Nurse 02/29/24 Marcos Verdin MD [facility] [address] [place] [address] Cardiology 03/10/24 Omid Vincent Psychiatry 03/15/24 [employer] 05/17/22 documented as of this encounter
--- OUTSIDE RECORDS SUMMARY | 2025-04-01 03:05 | XMS_ITS | Encounter Summary ---
Author Organization [employer] Address [address] [facility] [address] 7t [place] [address] Care Team Providers Care Traveling Operator Name Role Phone [place], Nathalie ABDI Primary Care Provider +1- [phone] Shannan Barrow RN Unavailable [phone] Lisbeth Johnson Unavailable Reason for Visit * Reason Onset Date Comments DR LAMAS 03/07/2025 Encounter Details Date Type Department Care Team (Late st Contact Info) Description 03/07/2025 Telephone [facility] ADULT DENTAL 230 [place] [address] Panchito Lamas DDS [address] [place], [place] [phone] DR LAMAS Social History Tobacco Use Types Packs/Day Years [...] encounter Miscellaneous Notes * Telephone Encounter - Arthur Whitley - 03/07/2025 11:42 AM EST Pt is calling in with some questions about the medication. Im unable to answer why he got certain medications sent to him. Please call pt with info. Thank you documented in this encounter Plan of Treatment Upcoming Encounters Date Type Department Care Team (Late st Contact Info) Description 04/24/2025 11:30 AM EST Office Visit [facility] MED & PEDS 505 [place] [address] Sheila Grant MD 505 [place] [address] 05/08/2025 10:30 AM EST Office Visit [facility] ADULT DENTAL [address] [place] [address] Panchito Lamas DDS [address] [place] [address] 05/29/2025 11:00 AM EST Office Visit [facility] [address] [place] [address] Chiquita Montgomery 230 [place] [address] 07/02/2025 1:00 PM EDT Office Visit [facility] OPTOMETRY [address] [place] [address] Seth, Zabrina, OD 230 [place] [address] 07/24/2025 2:00 PM EDT Office Visit [facility] ADULT DENT[facility] 230 [place] [address] Chiquita Montgomery [address] [place] [address] documented as of this encounter Visit Diagnoses Not on filedocumented in this encounter Additional Health Concerns Assessment Noted Time PHQ-9 Depression Total Score: 0 09/21/19 25 3:24 PM EDT documented as of this encounter Care Teams Traveling Operator Relationship Specialty Start Date End Date Nathalie Hsu MD 230 [place] [address] PCP - General Family Medicine 09/27/13 Shannan Barrow, KHAI [address] [place] [address] Registered Nurse 02/29/24 Lisbeth Johnson [address] 3rd [place] [address] Gastroenterology 03/15/24 Tonya Poole Machine CraterPoultry Sexer 01/19/24 Sherin (JASMEETA IHS) Registered Nurse 02/29/24 Marcos Verdin MD [facility] [address] [place] [address] Cardiology 03/10/24 Omid Vincent Psychiatry 03/15/24 [employer] 05/17/22 documented as of this encounter
--- OUTSIDE RECORDS SUMMARY | 2025-04-01 03:05 | XMS_ITS | Encounter Summary ---
Author Organization [employer] Address [address] [facility] 7t [place] [address] Care Team Providers Care Orthophoto Tech/Draftsman Name Role Phone Nathalie Hsu MD Primary Care Provider +1- [phone] Shannan Barrow RN Unavailable [phone] Lisbeth Johnson Unavailable Reason for Visit * Reason Comments Med Refill Encounter Details Date Type Department Care Team (Late st Contact Info) Description 02/12/2023 Refill [facility] MEDICINE 230 [place], [place] [phone] Nathalie Hsu MD 230 [place], [place] [phone] Pain Social History Tobacco Use Types Packs/Day [...] Description 04/24/2025 11:30 AM EST Office Visit [facility] CHC MED & PEDS 505 [place] [address] Sheila Grant MD 505 [place] [address] 05/08/2025 10:30 AM EST Office Visit [facility] ADULT DENTAL 230 [place] [address] Panchito Lamas, DDS 230 [place] [address] 05/29/2025 11:00 AM EST Office Visit [facility] ADULT DENTAL 230 [place] [address] Ulises, Chiquita 230 [place] [address] 07/02/2025 1:00 PM EDT Office Visit [facility] OPTOMETRY [address] [place] [address] Seth, Zabrian, OD 230 [place] [address] 07/24/2025 2:00 PM EDT Office Visit [facility] ADULT DENTAL 230 [place] [address] Ulises, Chiquita 230 [place] [address] documented as of this encounter Visit Diagnoses Diagnosis Pain Generalized pain documented in this encounter Additional Health Concerns Assessment Noted Time PHQ-9 Depression Total Score: 6 05/08/19 23 10:33 AM EST documented as of this encounter Care Teams Orthophoto Tech/Draftsman Relationship Specialty Start Date End Date Nathalie Hsu MD 230 [place] [address] PCP - General Family Medicine 09/27/13 Shannan Barrow, RN 230 [place] [address] Registered Nurse 02/29/24 Lisbeth Johnson [address] [place] [address] Drive 3rd [place] [address] Gastroenterology 03/15/24 Tonya Poole Supervisor Type PhotographyHoop Riveting Machine Operator 01/19/24 Sherin (A S) Registered Nurse 02/29/24 Marcos Verdin MD [facility] [address] [place] [address] Cardiology 03/10/24 Omid Vincent Psychiatry 03/15/24 [employer] 05/17/22 documented as of this encounter
--- OUTSIDE RECORDS SUMMARY | 2025-04-01 03:05 | XMS_ITS | Encounter Summary ---
Author Organization [employer] Address [address] [facility] 7t [place] [address] Care Team Providers Care Cartographic Technician Name Role Phone Nathalie Hsu MD Primary Care Provider +1- [phone] Shannan Barrow RN Unavailable [phone] Lisbeth Johnson Unavailable Reason for Visit * Reason Onset Date Comments Hospital Follow-up 03/07/2024 Medication Question 03/07/2024 Encounter Details Date Type Department Care Team (Late st Contact Info) Description 03/07/2024 Telephone [facility] MEDICINE [address] [place], [place] [phone] Nathalie Hsu MD 230 [place] [address] Hospital Follow-up; Medication Question Social History Tobacco [...] stating wrong number and he doesn't speak greenlandic (was not the pt). Telephone call placed [...] - 03/07/2024 2:00 PM EST Tc from [facility] with [facility] Crochet Machine Operator requesting a HDF appt. Pt is concerned about medication melatonin 5 MG tablet he still has trouble sleeping and doesn't want to stop taking. Hospital: [facility] Date of admission: 02/11 Discharge date: 03/01 Diagnosed: Liver Issues Contact pt to schedule at [phone] *Send message to [place] Clinical Care Coordinators documented in this encounter Plan of Treatment Upcoming Encounters Date Type Department Care Team (Late st Contact Info) Description 04/24/2025 11:30 AM EST Office Visit [facility] CHC MED & PEDS 505 [place] [address] Sheila Grant MD 505 [place] [address] 05/08/2025 10:30 AM EST Office Visit [facility] ADULT DENTAL 230 [place] [address] Panchito Lamas DDS 230 [place] [address] 05/29/2025 11:00 AM EST Office Visit [facility] ADULT DENTAL 230 [place] [address] Ulises Chiquita 230 [place] [address] 07/02/2025 1:00 PM EDT Office Visit [facility] OPTOMETRY [address] [place] [address] Zabrina Ann, OD 230 [place] [address] 07/24/2025 2:00 PM EDT Office Visit [facility] ADULT DENTAL 230 [place], [place] [phone] Chiquita Montgomery 230 [place] [address] documented as of this encounter Visit Diagnoses Not on filedocumented in this encounter Additional Health Concerns Assessment Noted Time PHQ-9 Depression Total Score: 0 06/09/19 9:13 AM EST documented as of this encounter Care Teams Cartographic Technician Relationship Specialty Start Date End Date Nathalie Hsu MD 230 [place], [place] [phone] PCP - General Family Medicine 09/27/13 Shannan Barrow, KHAI [address] [place] [address] Registered Nurse 02/29/24 Lisbeth Johnson [address] [place] [address] Drive 3rd [place] [address] Gastroenterology 03/15/24 Tonya Poole Gill Box FixerTwister Frame Tender 01/19/24 Sherin (VNA S) Registered Nurse 02/29/24 Marcos Verdin MD [place] [facility] [address] [place] [address] Cardiology 03/10/24 Omid Vincent Psychiatry 03/15/24 [employer] 05/17/22 documented as of this encounter
--- OUTSIDE RECORDS SUMMARY | 2025-04-01 03:05 | XMS_ITS | Encounter Summary ---
Author Organization [employer] Address [address] [facility] [address] 7t [place] [address] Care Team Providers Care Continuous Process Coffee Roaster Name Role Phone Nathalie Hsu MD Primary Care Provider [phone]- [phone] Shannan Barrow RN Unavailable [phone] Lisbeth Johnson Unavailable Reason for Visit * Reason Comments Med Refill Encounter Details Date Type Department Care Team (Late st Contact Info) Description 03/30/2024 Refill [facility] MEDICINE 230 [place] [address] Nathalie Hsu MD 230 [place] [address] History of alcohol abuse; Hypomagnesemia; Mild intermittent [...] 04/24/2025 11:30 AM EST Office Visit [facility] CHC MED & PEDS 505 [place] [address] Sheila Grant MD 505 [place] [address] 05/08/2025 10:30 AM EST Office Visit [facility] ADULT DENTAL 230 [place] [address] Panchito Lamas DDS 230 [place] [address] 05/29/2025 11:00 AM EST Office Visit [facility] ADULT DENTAL 230 [place] [address] Chiquita Montgomery 230 [place] [address] 07/02/2025 1:00 PM EDT Office Visit [facility] OPTOMETRY [address] [place] [address] Zabrina Ann, OD 230 [place] [address] 07/24/2025 2:00 PM EDT Office Visit [facility] ADULT DENTAL 230 [place] [address] Ulises, Chiquita 230 [place] [address] documented as of this encounter Visit Diagnoses Diagnosis History of alcohol abuse Nondependent alcohol abuse, in remission Hypomagnesemia Disorders of magnesium metabolism Mild intermittent asthma, unspecified whether complicated documented in this encounter Additional Health Concerns Assessment Noted Time PHQ-9 Depression Total Score: 0 06/09/19 24 9:13 AM EST documented as of this encounter Care Teams Continuous Process Coffee Roaster Relationship Specialty Start Date End Date Nathalie Hsu MD 230 [place] [address] PCP - General Family Medicine 09/27/13 Shannan Barrow, RN [address] [place] [address] Registered Nurse 02/29/24 Lisbeth Johnson [address] [place] [address] Drive 3rd [place] [address] Gastroenterology 03/15/24 Tonya Poole Denture Contour Wire SpecialistAir And Water Tester 01/19/24 Sherin (VNA IHS) Registered Nurse 02/29/24 Marcos Verdin MD [facility] [address] [place], [place] Cardiology 03/10/24 Omid Vincent Psychiatry 03/15/24 [employer] 05/17/22 documented as of this encounter
--- OUTSIDE RECORDS SUMMARY | 2025-04-01 03:05 | XMS_ITS | Encounter Summary ---
Author Organization [employer] Address [address] [facility] [facility] [address] 7t [place] [address] Care Team Providers Care Case Making Machine Operator Name Role Phone [place], Nathalie ABDI Primary Care Provider [phone]- [phone] Shannan Barrow RN Unavailable [phone] Lisbeth Johnson Unavailable Reason for Visit * Reason Comments Med Refill Encounter Details Date Type Department Care Team (Late st Contact Info) Description 07/04/2024 Refill [facility] ADULT DENTAL 230 [place] [address] Panchito Lamas DDS 230 [place] [address] Severe dental caries; Dental root caries; Advanced [...] Description 04/24/2025 11:30 AM EST Office Visit [facility] CHC MED & PEDS 505 [place] [address] Sheila Grant MD 505 [place] [address] 05/08/2025 10:30 AM EST Office Visit [facility] ADULT DENTAL 230 [place] [address] Panchito Lamas DDS 230 [place] [address] 05/29/2025 11:00 AM EST Office Visit [facility] ADULT DENTAL 230 [place] [address] Chiquita Montgomery 230 [place] [address] 07/02/2025 1:00 PM EDT Office Visit [facility] OPTOMETRY [address] [place] [address] Seth, Zabrina, OD 230 [place] [address] 07/24/2025 2:00 PM EDT Office Visit [facility] ADULT DENTAL 230 [place] [address] Chiquita Montgomery 230 [place] [address] documented as of this encounter Visit Diagnoses Diagnosis Severe dental caries Dental root caries Advanced periodontitis Excessive attrition of teeth, limited to enamel Missing teeth, acquired Dental calculus Accretions on teeth documented in this encounter Additional Health Concerns Assessment Noted Time PHQ-9 Depression Total Score: 0 06/09/19 24 9:13 AM EST documented as of this encounter Care Teams Case Making Machine Operator Relationship Specialty Start Date End Date Nathalie Hsu MD 230 [place] [address] PCP - General Family Medicine 09/27/13 Shannan Barrow, RN [address] [place] [address] Registered Nurse 02/29/24 Lisbeth Johnson [address] [place] [address] Drive 3rd [place] [address] Gastroenterology 03/15/24 Tonya Poole Carpenter And JoinerOpera Singer 01/19/24 Sherin (VNA IHS) Registered Nurse 02/29/24 Marcos Verdin MD [facility] [facility] [address] [place] [address] Cardiology 03/10/24 Omid Vincent Psychiatry 03/15/24 [employer] 05/17/22 documented as of this encounter
--- OUTSIDE RECORDS SUMMARY | 2025-04-01 03:05 | XMS_ITS | Encounter Summary ---
Author Organization [employer] Address [address] [facility] 7t [place] [address] Care Team Providers Care Malt Liquors Sales Supervisor Name Role Phone Nathalie Hsu MD Primary Care Provider [phone]- [phone] Shannan Barrow RN Unavailable [phone] Lisbeth Johnson Unavailable Reason for Visit * Reason Onset Date Comments Results 01/12/2023 INR Encounter Details Date Type Department Care Team (Late st Contact Info) Description 01/12/2023 Telephone [facility] MEDICINE 230 [place], [place] [phone] Nathalie Hsu MD 230 [place], [place] [phone] Results (INR) Social History Tobacco Use Types [...] 12:36 PM EDT Tc from [facility] reporting INR results. Please call [phone] documented in this encounter Plan of Treatment Upcoming Encounters Date Type Department Care Team (Late st Contact Info) Description 04/24/2025 11:30 AM EST Office Visit [facility] CHC MED & PEDS 505 [place] [address] Sheila Grant MD 505 [place] [address] 05/08/2025 10:30 AM EST Office Visit [facility] ADULT DENTAL 230 [place] [address] Panchito Lamas DDS [address] [place] [address] 05/29/2025 11:00 AM EST Office Visit [facility] ADULT DENTAL 230 [place] [address] Ulises Chiquita 230 [place] [address] 07/02/2025 1:00 PM EDT Office Visit [facility] OPTOMETRY [address] [place] [address] Seth, Zabrina, OD 230 [place] [address] 07/24/2025 2:00 PM EDT Office Visit [facility] ADULT DENTAL 230 [place] [address] Chiquita Montgomery 230 [place] [address] documented as of this encounter Visit Diagnoses Not on filedocumented in this encounter Additional Health Concerns Assessment Noted Time PHQ-9 Depression Total Score: 6 05/08/19 23 10:33 AM EST documented as of this encounter Care Teams Malt Liquors Sales Supervisor Relationship Specialty Start Date End Date Nathalie Hsu MD 230 [place], [place] [phone] PCP - General Family Medicine 09/27/13 Shannan Barrow, KHAI [address] [place] [address] Registered Nurse 02/29/24 Lisbeth Johnson [address] [place] [address] Drive 3rd [place] [address] Gastroenterology 03/15/24 Tonya Poole Pocket Machine OperatorCovering Machine Operator 01/19/24 Sherin (VNA IHS) Registered Nurse 02/29/24 Marcos Verdin MD [place] [facility] [address] [place] [address] Cardiology 03/10/24 Omid Vincent Psychiatry 03/15/24 [employer] 05/17/22 documented as of this encounter
--- OUTSIDE RECORDS SUMMARY | 2025-04-01 03:05 | XMS_ITS | Encounter Summary ---
Author Organization [employer] Address [address] [facility] [address] 7t [place] [address] Care Team Providers Care Senior Information Systems Architect Name Role Phone Nathalie Hsu MD Primary Care Provider [phone]- [phone] Shannan Barrow RN Unavailable [phone] Lisbeth Johnson Unavailable Reason for Visit * Reason Comments Med Refill Encounter Details Date Type Department Care Team (Late st Contact Info) Description 11/01/2023 Refill [facility] CHC MED & PEDS [address] [place], [place] [phone] Nathalie Hsu MD 230 [place], [place] [phone] Mild intermittent asthma, unspecified whether complicated Social [...] the past 12 months, has t he [employer], gas, oil or water [employer] threatened to shut off services in your [...] 11:30 AM EST Office Visit [facility] CHC MED & PEDS 505 [place] [address] Sheila Grant MD 505 [place] [address] 05/08/2025 10:30 AM EST Office Visit [facility] ADULT DENTAL 230 [place] [address] Panchito Lamas DDS 230 [place] [address] 05/29/2025 11:00 AM EST Office Visit [facility] ADULT DENTAL 230 [place] [address] Adalberto Montgomeryaris 230 [place] [address] 07/02/2025 1:00 PM EDT Office Visit [facility] OPTOMETRY [address] [place] [address] Zabrina Ann, OD 230 [place] [address] 07/24/2025 2:00 PM EDT Office Visit [facility] ADULT DENTAL 230 [place], [place] [phone] Chiquita Montgomery 230 [place] [address] documented as of this encounter Visit Diagnoses Diagnosis Mild intermittent asthma, unspecified whether complicated documented in this encounter Additional Health Concerns Assessment Noted Time PHQ-9 Depression Total Score: 0 06/09/19 9:13 AM EST documented as of this encounter Care Teams Senior Information Systems Architect Relationship Specialty Start Date End Date Nathalie Hsu MD 230 [place] [address] PCP - General Family Medicine 09/27/13 Shannan Barrow, KHAI [address] [place] [address] Registered Nurse 02/29/24 Lisbeth Johnson [address] [place] [address] Drive 3rd [place] [address] Gastroenterology 03/15/24 Tonya Poole Slurry Control Operator HelperTag Writer 01/19/24 Sherin (VNA IHS) Registered Nurse 02/29/24 Marcos Verdin MD [place] [facility] [address] [place] [address] Cardiology 03/10/24 Omid Coggon Psychiatry 03/15/24 [employer] 05/17/22 documented as of this encounter
--- OUTSIDE RECORDS SUMMARY | 2025-04-01 03:05 | XMS_ITS | Encounter Summary ---
Author Organization [employer] Address 75 [facility] 7t [place] [address] Care Team Providers Care Special Effects Person Name Role Phone Nathalie Hsu MD Primary Care Provider [phone]- [phone] Shannan Barrow RN Unavailable [phone] Lisbeth Johnson Unavailable Reason for Visit * Reason Comments Med Refill Encounter Details Date Type Department Care Team (Late st Contact Info) Description 03/04/2025 Refill [facility] MEDICINE 230 [place] [address] Nathalie Hsu MD 230 [place], [place] [phone] Primary insomnia Social History Tobacco Use Types [...] the past 12 months, has t he [employer], gas, 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 threatened to [...] 11:30 AM EST Office Visit [facility] CHC MED & PEDS 505 [place] [address] Sheila Grant MD 505 [place] [address] 05/08/2025 10:30 AM EST Office Visit [facility] ADULT DENTAL 230 [place] [address] Panchito Lamas DDS 230 [place] [address] 05/29/2025 11:00 AM EST Office Visit [facility] ADULT DENTAL 230 [place] [address] Chiquita Montgomery 230 [place] [address] 07/02/2025 1:00 PM EDT Office Visit [facility] OPTOMETRY [address] [place] [address] Zabrina Ann, OD 230 [place] [address] 07/24/2025 2:00 PM EDT Office Visit [facility] ADULT DENTAL 230 [place] [address] Ulises, Chiquita 230 [place] [address] documented as of this encounter Visit Diagnoses Diagnosis Primary insomnia Persistent disorder of initiating or maintaining sleep documented in this encounter Additional Health Concerns Assessment Noted Time PHQ-9 Depression Total Score: 0 09/21/19 3:24 PM EDT documented as of this encounter Care Teams Special Effects Person Relationship Specialty Start Date End Date Nathalie Hsu MD 230 [place] [address] PCP - General Family Medicine 09/27/13 Shannan Barrow, KHAI [address] [place] [address] Registered Nurse 02/29/24 Lisbeth Johnson [address] [place] [address] 3rd [place] [address] Gastroenterology 03/15/24 Tonya Poole Estimator Paperboard BoxesRecruiting Assistant 01/19/24 Sherin ([facility]) Registered Nurse 02/29/24 MD [place] [facility] [address] [place], [place] Cardiology 03/10/24 Omid Vincent Psychiatry 03/15/24 [employer] 05/17/22 documented as of this encounter
--- OUTSIDE RECORDS SUMMARY | 2025-04-01 03:05 | XMS_ITS | Encounter Summary ---
Author Organization [employer] Address [address] [facility] 7t [place] [address] Care Team Providers Care Stator Winder Name Role Phone Nathalie Hsu MD Primary Care Provider [phone]- [phone] Shannan Barrow RN Unavailable [phone] Lisbeth Johnson Unavailable Reason for Visit * Reason Comments Med Refill Encounter Details Date Type Department Care Team (Late st Contact Info) Description 08/14/2024 Refill [facility] MEDICINE [address] [place] [address] Nathalie Hsu MD 230 [place], [place] [phone] Alcoholic liver disease (CMS/HCC) Social History Tobacco [...] Description 04/24/2025 11:30 AM EST Office Visit [facility] CHC MED & PEDS [address] [place] [address] Sheila Grant MD 505 [place] [address] 05/08/2025 10:30 AM EST Office Visit [facility] ADULT DENTAL [address] [place] [address] Panchito Lamas DDS 230 [place] [address] 05/29/2025 11:00 AM EST Office Visit [facility] ADULT DENTAL [address] [place] [address] Chiquita Montgomery 230 [place] [address] 07/02/2025 1:00 PM EDT Office Visit [facility] OPTOMETRY [address] [place] [address] Zabrina Ann, OD 230 [place] [address] 07/24/2025 2:00 PM EDT Office Visit [facility] ADULT DENTAL [address] [place] [address] Ulises, Chiquita [address] [place] [address] documented as of this encounter Visit Diagnoses Diagnosis Alcoholic liver disease Unspecified alcoholic liver damage documented in this encounter Additional Health Concerns Assessment Noted Time PHQ-9 Depression Total Score: 0 06/09/19 9:13 AM EST documented as of this encounter Care Teams Stator Winder Relationship Specialty Start Date End Date Nathalie Hsu MD 230 [place] [address] PCP - General Family Medicine 09/27/13 Shannan Barrow, KHAI [address] [place] [address] Registered Nurse 02/29/24 Lisbeth Johnson [address] [place] [address] 3rd [place] [address] Gastroenterology 03/15/24 Tonya Poole Director AutomotiveTobacco Curer 01/19/24 Sherin (VNA IHS) Registered Nurse 02/29/24 Marcos Verdin MD [facility] [address] [place] [address] Cardiology 03/10/24 Omid Vincent Psychiatry 03/15/24 [employer] 05/17/22 documented as of this encounter
--- OUTSIDE RECORDS SUMMARY | 2025-04-01 03:05 | XMS_ITS | Encounter Summary ---
Author Organization [email or web address] Address [address] [facility] [address] 7t [place] [address] Care Team Providers Care Mix Mill Tender Name Role Phone Nathalie Hsu MD Primary Care Provider [phone]- [phone] Shannan Barrow RN Unavailable [phone] Lisbeth Johnson Unavailable Reason for Visit * Reason Comments Med Refill Encounter Details Date Type Department Care Team (Late st Contact Info) Description 03/06/2025 Refill [facility] CHC MED & PEDS [address] [place] [address] Nathalie Hsu MD 230 [place] [address] Severe dental caries; Dental root caries; Advanced [...] Description 04/24/2025 11:30 AM EST Office Visit [facility] CHC MED & PEDS 505 [place] [address] Sheila Grant MD 505 [place] [address] 05/08/2025 10:30 AM EST Office Visit [facility] ADULT DENTAL 230 [place] [address] Panchito Lamas DDS 230 [place] [address] 05/29/2025 11:00 AM EST Office Visit [facility] ADULT DENTAL [address] [place] [address] Chiquita Montgomery 230 [place] [address] 07/02/2025 1:00 PM EDT Office Visit [facility] OPTOMETRY [address] [place] [address] Seth, Zabrina, OD 230 [place] [address] 07/24/2025 2:00 PM EDT Office Visit [facility] ADULT DENTAL [address] [place] [address] Chiquita Montgomery [address] [place] [address] documented as of this encounter Visit Diagnoses Diagnosis Severe dental caries Dental root caries Advanced periodontitis Excessive attrition of teeth, limited to enamel Missing teeth, acquired Dental calculus Accretions on teeth documented in this encounter Additional Health Concerns Assessment Noted Time PHQ-9 Depression Total Score: 0 09/21/19 25 3:24 PM EDT documented as of this encounter Care Teams Mix Mill Tender Relationship Specialty Start Date End Date Nathalie Hsu MD 230 [place] [address] PCP - General Family Medicine 09/27/13 Shannan Barrow, RN [address] [place] [address] Registered Nurse 02/29/24 Lisbeth Johnson [address] [place] [address] Drive 3rd [place] [address] Gastroenterology 03/15/24 Tonya Poole Office EngineerGuest Relations Agent 01/19/24 Sherin (VNA IHS) Registered Nurse 02/29/24 Marcos Verdin MD [place] [facility] [address] [place], [place] Cardiology 03/10/24 Omid Vincent Psychiatry 03/15/24 [employer] 2 documented as of this encounter
--- OUTSIDE RECORDS SUMMARY | 2025-04-01 03:05 | XMS_ITS | Encounter Summary ---
Author Organization [email or web address] Address [address] [facility] [address] 7t [place] [address] Care Team Providers Care Seam Closer Name Role Phone Fries, Nathalie ABDI Primary Care Provider [phone]- [phone] Shannan Barrow RN Unavailable [phone] Lisbeth Johnson Unavailable Reason for Visit * Reason Onset Date Comments medication 03/06/2025 Encounter Details Date Type Department Care Team (Late st Contact Info) Description 03/06/2025 Telephone [facility] ADULT DENTAL 230 [place] [address] Panchito Lamas DDS 230 [place], [place] [phone] medication Social History Tobacco Use Types Packs/Day [...] encounter Miscellaneous Notes * Telephone Encounter - Adilia Cortez - 03/06/2025 10:21 AM EST Patient called in staing that medication has not been sent to pharmacy. He was under impression Tynelol was going to be sent in. documented in this encounter Plan of Treatment Upcoming Encounters Date Type Department Care Team (Late st Contact Info) Description 04/24/2025 11:30 AM EST Office Visit [facility] CHC MED & PEDS 505 [place] [address] Sheila Grant MD 505 [place] [address] 05/08/2025 10:30 AM EST Office Visit [facility] ADULT DENTAL 230 [place] [address] Panchito Lamas DDS [address] [place] [address] 05/29/2025 11:00 AM EST Office Visit [facility] ADULT DENTAL [address] [place] [address] Chiquita Montgomery 230 [place] [address] 07/02/2025 1:00 PM EDT Office Visit [facility] OPTOMETRY [address] [place] [address] Seth, Zabrina, OD 230 [place] [address] 07/24/2025 2:00 PM EDT Office Visit [facility] ADULT DENTAL 230 [place] [address] Chiquita Montgomery 230 [place] [address] documented as of this encounter Visit Diagnoses Not on filedocumented in this encounter Additional Health Concerns Assessment Noted Time PHQ-9 Depression Total Score: 0 09/21/19 25 3:24 PM EDT documented as of this encounter Care Teams Seam Closer Relationship Specialty Start Date End Date Nathalie Hsu MD 230 [place] [address] PCP - General Family Medicine 09/27/13 Shannan Barrow, RN [address] [place] [address] Registered Nurse 02/29/[address] 3rd [place] [address] Gastroenterology 03/15/24 Tonya Poole Chart ReaderProgram Director/Air Personality 01/19/24 Sherin (VNA IHS) Registered Nurse 02/29/24 Marcos Verdin MD [place] [facility] [address] [place] [address] Cardiology 03/10/24 Omid Vincent Psychiatry 03/15/24 [employer] 05/17/22 documented as of this encounter
--- OUTSIDE RECORDS SUMMARY | 2025-04-01 03:05 | XMS_ITS | Encounter Summary ---
Author Organization [employer] Address [address] [facility] [address] 7t [place] [address] Care Team Providers Care Clay Caster Name Role Phone Nathalie Hsu MD Primary Care Provider [phone] Shannan Barrow RN Unavailable [phone] Lisbeth Johnson Unavailable Reason for Visit * Reason Onset Date Comments Coagulation Disorder 05/12/2023 Encounter Details Date Type Department Care Team (Late st Contact Info) Description 05/12/2023 Telephone [facility] MED[facility]INE [address] [place], [place] [phone] Nathalie Hsu MD 230 [place], [place] [phone] Coagulation Disorder Social History Tobacco Use Types [...] to report INR. Please contact robert at [phone] documented in this encounter Plan of Treatment Upcoming Encounters Date Type Department Care Team (Late st Contact Info) Description 04/24/2025 11:30 AM EST Office Visit [facility] CHC MED & PEDS [address] [place] [address] Sheila Grant MD 505 [place] [address] 05/08/2025 10:30 AM EST Office Visit [facility] ADULT DENTAL 230 [place] [address] Panchito Lamas DDS [address] [place] [address] 05/29/2025 11:00 AM EST Office Visit [facility] ADULT DENTAL 230 [place] [address] Chiquita Montgomery 230 [place] [address] 07/02/2025 1:00 PM EDT Office Visit [facility] OPTOMETRY [address] [place], [place] [phone] Zabrina Ann, OD 230 [place] [address] 07/24/2025 2:00 PM EDT Office Visit [facility] ADULT DENTAL 230 [place] [address] Chiquita Montgomery 230 [place] [address] documented as of this encounter Visit Diagnoses Not on filedocumented in this encounter Additional Health Concerns Assessment Noted Time PHQ-9 Depression Total Score: 6 05/08/19 23 10:33 AM EST documented as of this encounter Care Teams Clay Caster Relationship Specialty Start Date End Date Nathalie Hsu MD 230 [place] [address] PCP - General Family Medicine 09/27/13 Shannan Barrow, KHAI [address] [place] [address] Registered Nurse 02/29/24 Lisbeth Johnson [address] [place] [address] Drive 3rd [place] [address] Gastroenterology 03/15/24 Tonya Poole Service Center RepresentativeVault Custodian 01/19/24 Sherin (VNA S) Registered Nurse 02/29/24 Marcos Verdin MD [place] [facility] [address] [place] [address] Cardiology 03/10/24 Omid Vincent Psychiatry 03/15/24 [employer] 05/17/22 documented as of this encounter
--- OUTSIDE RECORDS SUMMARY | 2025-04-01 03:05 | XMS_ITS | Encounter Summary ---
Author Organization [employer] Address [address] [facility] 7t [place] [address] Care Team Providers Care Claim Service Representative Name Role Phone Nathalie Hsu MD Primary Care Provider [phone] Shannan Barrow RN Unavailable [phone] Lisbeth Johnson Unavailable Reason for Visit * Reason Onset Date Comments Appointment Request 03/27/2025 Encounter Details Date Type Department Care Team ([facility] st Contact Info) Description 03/27/2025 Telephone [facility] MEDICINE [address] [place], [place] [phone] Shannan Barrow, RN 230 [place] [address] Appointment Request Social History Tobacco Use Types Packs/Day Years [...] Telephone Encounter - Shannan Barrow RN - 03/27/2025 1:36 PM EST Spoke with PCP regarding pt needing follow up who advised to book him for soonest possible OV extended. documented in this encounter Plan of Treatment Upcoming Encounters Date Type Department Care Team (Late st Contact Info) Description 04/24/2025 11:30 AM EST Office Visit [facility] CHC MED & PEDS 505 [place] [address] Sheila Grant MD 505 [place] [address] 05/08/2025 10:30 AM EST Office Visit [facility] ADULT DENTAL [address] [place] [address] Panchito Lamas DDS [address] [place] [address] 05/29/2025 11:00 AM EST Office Visit [facility] ADULT DENTAL 230 [place] [address] Chiquita Montgomery 230 [place] [address] 07/02/2025 1:00 PM EDT Office Visit [facility] OPTOMETRY [address] [place] [address] Seth, Zabrina, OD 230 [place] [address] 07/24/2025 2:00 PM EDT Office Visit [facility] ADULT DENTAL [address] [place] [address] Chiquita Montgomery 230 [place] [address] documented as of this encounter Visit Diagnoses Not on filedocumented in this encounter Additional Health Concerns Assessment Noted Time PHQ-9 Depression Total Score: 0 09/21/19 25 3:24 PM EDT documented as of this encounter Care Teams Claim Service Representative Relationship Specialty Start Date End Date Nathalie Hsu MD 230 [place] [address] PCP - General Family Medicine 09/27/13 Shannan Barrow, RN [address] [place] [address] Registered Nurse 02/29/24 Lisbeth Johnson [address] [place] [address] 3rd [place] [address] Gastroenterology 03/15/24 Tonya Poole Qa Automation EngineerDb2 Systems Programmer 01/19/24 Sherin (JASMEETA S) Registered Nurse 02/29/24 Marcos Verdin MD [place] [facility] [address] [place] [address] Cardiology 03/10/24 Omid Vincent Psychiatry 03/15/24 [employer] 05/17/22 documented as of this encounter
--- OUTSIDE RECORDS SUMMARY | 2025-04-01 03:05 | XMS_ITS | Encounter Summary ---
Author Organization [employer] Address [address] [facility] 7t [place] [address] Care Team Providers Care Vice President Mission Integration Name Role Phone AustinNathalie segovia MD Primary Care Provider [phone]- [phone] Shannan Barrow RN Unavailable [phone] Lisbeth Johnson Unavailable Encounter Details Date Type Department Care Team (Late st Contact Info) Description 04/01/2025 Orders Only GENERIC EXTERNAL DATA DEPARTMENT Provider, [...] 04/24/2025 11:30 AM EST Office Visit [facility] CHC MED & PEDS 505 [place] [address] Sheila Grant MD 505 [place] [address] 05/08/2025 10:30 AM EST Office Visit [facility] ADULT DENTAL 230 [place] [address] Panchito Lamas DDS [address] [place] [address] 05/29/2025 11:00 AM EST Office Visit [facility] ADULT DENTAL [address] [place] [address] Ulises Chiquita [address] [place] [address] 07/02/2025 1:00 PM EDT Office Visit [facility] OPTOMETRY [address] [place] [address] Zabrina Ann, OD 230 [place] [address] 07/24/2025 2:00 PM EDT Office Visit [facility] ADULT DENTAL 230 [place] [address] Chiquita Montgomery 230 [place] [address] documented as of this encounter Procedures Procedure Name Priority Date/Time Associated Diagnosis Comments COMPREHENSIVE METABOLIC PANEL, FASTING Routine 04/01/2025 1:05 AM EST HIGH SENSITIVITY TROPONIN I Routine 04/01/2025 1:05 AM EST SARS COV2/INFLUENZA A/B AND RSV RNA QL NAAT Routine 04/01/2025 1:05 AM EST CBC WITH AUTO DIFFERENTIAL Routine 04/01/2025 1:05 AM EST PROTHROMBIN TIME-INR Routine 04/01/2025 1:05 AM EST MAGNESIUM Routine 04/01/2025 1:05 AM EST documented in this encounter Results * SARS-CoV-2 RNA, Influenza A/B, and RSV RNA, Ql NAAT (04/01/2025 1:05 AM EST) Influenza A PCR NEGATIVE Negative [facility] Influenza B PCR NEGATIVE Negative [facility] Resp Syncy Virus RNA Qual PCR NEGATIVE Negative [facility] SARS COV2 PCR NEGATIVE Negative [facility] Comment:All test results mus t be correlated with clinical findings.Negative results do not preclude SARS-CoV2, influenza Avirus, influenza B virus and/or RSV infectionand should not be used as the sole basis for treatment orother patient management decisions. Negative results must becombined with clinical observations, patient history, andepidemiological information.This test has not been evaluated for monitoring treatment ofinfection.This test has been authorized by the FDA under an EmergencyUse Authorization (EUA) for use by authorized laboratories.Testing performed on the [employer] GeneXpert utilizingreal-time RT-PCR.All SARS CoV2 and positive influenza A/B results arereported to [facility]. 04/01/2025 1:05 AM EST 04/01/2025 2:29 AM EST Generic External Data Provider LAB MICROBIOLOGY - GENERAL ORDERABLES Final Result Performing Organization Address [facility] Co de Phone Number [facility] [address] [place] [phone] * High Sensitivity Troponin I (04/01/2025 1:05 AM EST) Pathologist [facility] TROPONIN I HIGH SENSITIVITY 3.2 <3.5 - 35.0 ng/L [facility] Comment:The [place] high sens itivity Troponin-I results should beused in conjunction with other diagnostic information suchas ECG, clinical observations and information, and patientsymptoms to aid in the diagnosis of CT. 04/01/2025 1:05 AM EST 04/01/2025 1:09 AM EST Generic External Data Provider LAB BLOOD ORDERAB LES Final Result Performing Organization Address [facility] Co de Phone Number [facility] [address] [place] [phone] * Magnesium (04/01/2025 1:05 AM EST) [facility] Magnesium 1.7 1.6 - 2.6 mg/dL [facility] 04/01/2025 1:05 AM EST 04/01/2025 1:09 AM EST Generic External Data Provider LAB BLOOD ORDERAB LES Final Result Performing Organization Address [facility] Co de Phone Number [facility] [address] [place] [phone] * (ABNORMAL) Comprehensive Metabolic Panel, Fasting (04/01/2025 1:05 AM EST) Pathologist [facility] Sodium 133(L) 135 - 145 mmol/L [facility] Potassium 4.4 3.3 - 5.1 mmol/L [facility] Comment:Slight Hemolysis.Int erpret result with caution. Chloride 107 96 - 108 mmol/L [facility] Carbon Dioxide 18(L) 22 - 29 mmol/L [facility] Anion Gap 12 12 - 20 [facility] Urea Nitrogen (BUN) 14 9 - 16 mg/dL [facility] Creatinine, Serum 1.07 0.5 - 1.4 mg/dL [facility] Creatinine Clr Calc Pharmacy 53.8 [facility] Comment:eGFR (calculated fro m the MDRD study equation) and eCrCl(calculated from the Cockcroft-Gault equation) are based ondifferent parameters and may not yield comparable results.If eCrCl result is absurd, please check patient'sheight/weight. Estimated Glomerular Filt Rate >60 [facility] Comment:Chronic Kidney Disea se: Estimated GFR < 60 mL/min/1.80e0Hcxqre Kidney Disease: Estimated GFR < 15 mL/min/1.73m2 Glucose Fasting 96 60 - 99 mg/dL [facility] Calcium 8.6 8.4 - 10.2 mg/dL [facility] Bilirubin, Total 0.2 0.0 - 1.0 mg/dL [facility] Aspartate Amino Transferase 34 5 - 37 U/L [facility] Comment:Slight Hemolysis.Int erpret result with caution. Alanine Aminotransferase 14 0 - 40 U/L [facility] Total Protein 6.9 6.5 - 8.0 g/dL [facility] Albumin Level 3.5 3.5 - 5.0 g/dL [facility] Alkaline Phosphatase 160(H) 39 - 117 U/L [facility] 04/01/2025 1:05 AM EST 04/01/2025 1:09 AM EST us Generic External Data Provider LAB BLOOD ORDERAB LES Final Result [facility] [address] [place] [address] [phone] * (ABNORMAL) Prothrombin Time-INR (04/01/2025 1:05 AM EST) Pathologist [facility] Prothrombin Time 48.4(H) 11.2 - 13.5 SEC [facility] INTERNATIONAL NORM RATIO 4.1(H) 0.9 - 1.1 [facility] Comment:INTERNATIONAL NORMAL IZED RATIO (INR) REFERENCE RANGES Reference RangeFor patients not on anticoagulant therapy: 0.9 - 1.1INR ranges for oral anticoagulanttherapy:For prevention and treatment of venous thrombosis and pulmonary embolism: 2.0 - 3.0For acute myocardial infarction with aspirin therapy: 2.0 - 3.0For acute myocardial infarction without aspirin therapy: 3.0 - 4.0For patients with mechanical prosthetic heart valves: 2.5 - 3.5 04/01/2025 1:05 AM EST 04/01/2025 1:09 AM EST us Generic External Data Provider LAB BLOOD ORDERAB LES Final Result Performing Organization Address City/State/[facility] Co de Phone Number [facility] [address] [place] [phone] * (ABNORMAL) CBC auto differential (04/01/2025 1:05 AM EST) [facility] White Blood Count 5.3 4.8 - 10.8 X10*3/uL [facility] Red Blood Count 3.89(L) 4.60 - 5.80 X10*6/uL [facility] Hemoglobin 13.0(L) 14.0 - 18.0 g/dl [facility] Hematocrit 39.1(L) 42.0 - 52.0 % [facility] Mean Corpuscular Volume 100.5(H) 80.0 - 98.0 fL [facility] Mean Corpuscular Hemoglobin 33.4(H) 27.0 - 33.0 pg [facility] Mean Corpuscular HGB Conc 33.2 31.0 - 36.0 g/dl [facility] Red Cell Distribution Width 16.2(H) 11.0 - 16.0 % [facility] Platelet Count 196 160 - 400 X10*3/uL [facility] Mean Platelet Volume 9.5 9.4 - 12.4 fL [facility] Neutrophils Percent Auto 60.4 45 - 73 % [facility] Imm Gran Pct Auto 0.9(H) 0.0 - 0.4 % [facility] Lymphocytes Percent Auto 20.6 20 - 40 % [facility] Monocytes Percent Auto 16.7(H) 2 - 11 % [facility] Eosinophils Percent Auto 0.6 0 - 4 % [facility] Basophils Percent Auto 0.8 0 - 2 % [facility] NRBC Pct Auto 0.0 0.0 - 0.2 /100WBC [facility] Neutrophils Absolute Auto 3.2 2.0 - 8.3 x10*3/uL [facility] Imm Gran Abs Auto 0.05(H) 0.00 - 0.03 X10*3/uL [facility] Lymphocytes Absolute Auto 1.1(L) 1.2 - 4.9 X10*3/uL [facility] Monocytes Absolute Auto 0.9 0.1 - 1.2 X10*3/uL [facility] Eosinophils Absolute Auto 0.0 0.0 - 0.4 X10*3/uL [facility] Basophils Absolute Auto 0.0 0.0 - 0.2 X10*3/uL [facility] NRBC Abs Auto 0.000 0.0 - 0.012 X10*3/uL [facility] 04/01/2025 1:05 AM EST 04/01/2025 1:09 AM EST us Generic External Data Provider LAB BLOOD ORDERAB LES Final Result [facility] [address] [place] [phone] [phone] documented in this encounter Visit Diagnoses Not on filedocumented in this encounter Additional Health Concerns Assessment Noted Time PHQ-9 Depression Total Score: 0 09/21/19 25 3:24 PM EDT documented as of this encounter Care Teams Vice President Mission Integration Relationship Specialty Start Date End Date Nathalie Hsu MD [address] [place] [address] PCP - General Family Medicine 09/27/13 Shannan Barrow, RN [address] [place] [address] Registered Nurse 02/29/24 Lisbeth Johnson [address] [place] [address] Drive 3rd [place] [address] Gastroenterology 03/15/24 Tonya Poole Fisheries SpecialistFeather Maker 01/19/24 Sherin ([facility]) Registered Nurse 02/29/24 Marcos Verdin MD [place] [facility] [address] [place] [address] Cardiology 03/10/24 Omid Vincent Psychiatry 03/15/24 [employer] 05/17/22 documented as of this encounter
--- OUTSIDE RECORDS SUMMARY | 2025-04-01 03:05 | XMS_ITS | Encounter Summary ---
Author Organization [employer] Address [address] [facility]] [address] [place] [address] Care Team Providers Care Blog Writer Name Role Phone Duxbury, Nathalie ABDI Primary Care Provider [phone] Shannan Barrow RN Unavailable [phone] Lisbeth Johnson Unavailable Reason for Visit * Reason Onset Date Comments Dr. Lamas medication 06/20/2024 Encounter Details Date Type Department Care Team (Late st Contact Info) Description 06/20/2024 Telephone [facility] [address] [place], [place] [phone] Panchito Lamas DDS [address] [place], [place] [phone] Dr. Lamas medication Social History Tobacco Use [...] [facility] [address] [place] [address] Sheila Grant MD [address] [place] [address] 05/08/2025 10:30 AM EST Office Visit [facility] [address] [place] [address] Panchito Lamas DDS [address] [place] [address] 05/29/2025 11:00 AM EST Office Visit [facility] 230 [facility] [place] [address] Ulises, Chiquita [address] [place] [address] 07/02/2025 1:00 PM EDT Office Visit [facility] OPT[facility] [address] [place] [address] Seth, Zabrina, OD [address] [place] [address] 07/24/2025 2:00 PM EDT Office Visit [facility] 230 [facility] [place] [address] Ulises Chiquita [address] [place] [address] documented as of this encounter Visit Diagnoses Not on filedocumented in this encounter Additional Health Concerns Assessment Noted Time PHQ-9 Depression Total Score: 0 06/09/19 9:13 AM EST documented as of this encounter Care Teams Blog Writer Relationship Specialty Start Date End Date Nathalie Hsu MD [address] [place] [address] PCP - General Family Medicine 09/27/13 Shannan Barrow, KHAI [address] [place] [address] Registered Nurse 02/29/24 Lisbeth Johnson [address]rd [place] [address] Gastroenterology 03/15/24 Tonya Poole Medical Reimbursement SpecialistWhite Sourer 01/19/24 Sherin (A [facility]) Registered Nurse 02/29/24 Marcos Verdin MD [place] [facility] [address] [place] [address] Cardiology 03/10/24 Omid Vincent Psychiatry 03/15/24 [employer] 05/17/22 documented as of this encounter
--- OUTSIDE RECORDS SUMMARY | 2025-04-01 03:05 | XMS_ITS | Encounter Summary ---
Author Organization [employer] Address [address] [facility] [address] [place] [address] Care Team Providers Care Instrument Inspector Name Role Phone Nathalie Hsu MD Primary Care Provider [phone] Shannan Barrow RN Unavailable [phone] Lisbeth Johnson Unavailable Reason for Visit * Reason Comments Med Refill Encounter Details Date Type Department Care Team (Late st Contact Info) Description 02/28/2023 Refill [facility] [address] [place], [place] [phone] Nathalie Hsu MD [address] [place], [place] [phone] Social History Tobacco Use Types Packs/Day Years [...] 04/24/2025 11:30 AM EST Office Visit [facility] [address] [place] [address] Sheila Grant MD [address] [place] [address] 05/08/2025 10:30 AM EST Office Visit [facility] [address] [place] [address] Panchito Lamas, DDS [address] [place] [address] 05/29/2025 11:00 AM EST Office Visit [facility] [address] [place] [address] Ulises, Chiquita [address] [place] [address] 07/02/2025 1:00 PM EDT Office Visit [facility] OPTOMETRY [address] [place] [address] Seth, Zabrina, OD [address] [place] [address] 07/24/2025 2:00 PM EDT Office Visit [facility] [address] [place] [address] Ulises, Chiquita [address] [place] [address] documented as of this encounter Visit Diagnoses Not on filedocumented in this encounter Additional Health Concerns Assessment Noted Time PHQ-9 Depression Total Score: 6 05/08/19 23 10:33 AM EST documented as of this encounter Care Teams Instrument Inspector Relationship Specialty Start Date End Date Nathalie Hsu MD [address] [place] [address] PCP - General Family Medicine 09/27/13 Shannan Barrow, RN [address] [place] [address] Registered Nurse 02/29/24 Lisbeth Johnson [address] [place] [address] Drive 3rd [place] [address] Gastroenterology 03/15/24 Tonya Poole [employer] ChiefSheet Tailer 01/19/24 Sherin (A S) Registered Nurse 02/29/24 Marcos Verdin MD [place] [facility] [address] [place] [address] Cardiology 03/10/24 Omid Vincent Psychiatry 03/15/24 [employer] 05/17/22 documented as of this encounter
--- OUTSIDE RECORDS SUMMARY | 2025-04-01 03:05 | XMS_ITS | Encounter Summary ---
Author Organization [employer] Address [address] [facility] [address] [place] [address] Care Team Providers Care Financial Investigator Name Role Phone Nathalie Hsu MD Primary Care Provider [phone] Shannan Barrow RN Unavailable [phone] Lisbeth Johnson Unavailable Reason for Visit * Reason Onset Date Comments INR report 03/31/2023 Encounter Details Date Type Department Care Team (Late st Contact Info) Description 03/31/2023 Telephone [facility] [address] [place], [place] [phone] Nathalie Hsu MD [address] [place], [place] [phone] INR report Social History Tobacco Use Types [...] PM EST Tc from Raman VALE with [employer] requesting a call from a nurse to report an INR results. Please contact Raman @ [phone] documented in this encounter Plan of Treatment Upcoming Encounters Date Type Department Care Team (Late st Contact Info) Description 04/24/2025 11:30 AM EST Office Visit [facility] [address] [place] [address] Sheila Grant MD 505 [place] [address] 05/08/2025 10:30 AM EST Office Visit [facility] ADULT [facility] [address] [place] [address] Panchito Lamas DDS [address] [place] [address] 05/29/2025 11:00 AM EST Office Visit [facility] ADULT [facility] [address] [place] [address] Chiquita Montgomery [address] [place] [address] 07/02/2025 1:00 PM EDT Office Visit [facility] OPTOMETRY [address] [place], [place] [phone] Zabrina Ann OD [address] [place] [address] 07/24/2025 2:00 PM EDT Office Visit [facility] ADULT D[facility] [address] [place] [address] Chiquita Montgomery [address] [place] [address] documented as of this encounter Visit Diagnoses Not on filedocumented in this encounter Additional Health Concerns Assessment Noted Time PHQ-9 Depression Total Score: 6 05/08/19 23 10:33 AM EST documented as of this encounter Care Teams Financial Investigator Relationship Specialty Start Date End Date Nathalie Hsu MD [address] [place] [address] PCP - General Family Medicine 09/27/13 Shannan Barrow RN [address] [place] [address] Registered Nurse 02/29/24 Lisbeth Johnson [address] [place] [address] Drive 3rd [place] [address] Gastroenterology 03/15/24 Tonya Poole Boat PullerFreight Dispatcher 01/19/24 Sherin ([facility]) Registered Nurse 02/29/24 Marcos Verdin MD [place] [facility] [address] [place] [address] Cardiology 03/10/24 Omid Vincent Psychiatry 03/15/24 [employer] 05/17/22 documented as of this encounter
--- OUTSIDE RECORDS SUMMARY | 2025-04-01 03:05 | XMS_ITS | Clinical Summary ---
Author Organization [employer] Address [address] [place] [address] Care Team Providers Care Juice Standardizer Name Role Phone Nathalie Hsu MD Primary Care Provider [phone] Shannan Barrow RN Unavailable [phone] Lisbeth Johnson Unavailable Allergies Active Allergy [...] (DOSE INCREASED TO TID) 180 tablet 11 5 2:49 PM EST 10/14/19 25 026 Active lactulose (Chronulac) 10 [...] MORNING 90 tablet 3 11/14/19 25 Active Farxiga 10 MGIndications:C ardiomyopathy, unspecified type (CMS/HCC) (HCC) Take 1 tablet (10 mg) by mouth in the morning. 30 tablet 3 5 10:53 AM EST 12/21/19 25 Active nicotine (Nicoderm, Step 2) 14 MG/24HR patchIndication s:Tobacco dependence APPLY 1 PATCH TOPICALLY TO THE SKIN IN THE MORNING *DO NOT SMOKE WHILE USING PATCH* 28 patch 2 5 2:49 PM EST 01/05/20 25 Active ferrous sulfate 325 (65 [...] 5 9:29 AM EST 02/06/20 25 Active warfarin (Coumadin) 5 MG tabletIndicatio ns:History of prosthetic heart valve TAKE 1 TO 2 TABLETS BY MOUTH ONCE DAILY DIRECTED BY COUMADIN CLINIC 60 tablet 3 5 10:53 AM EST 02/10/20 25 Active gabapentin (Neurontin) 100 MG capsuleIndicati ons:Pain TAKE 1 CAPSULE BY MOUTH THREE TIMES DAILY IN THE MORNING, EVENING, AND BEDTIME 90 capsule 3 5 10:53 AM EST 02/10/20 25 Active melatonin 5 MG tabletIndicatio ns:Primary insomnia TAKE 2 TABLETS BY MOUTH EVERY DAY AT BEDTIME NEEDED FOR SLEEP 60 tablet 3 5 10:53 AM EST 03/05/20 25 Active acetaminophen (Tylenol 8 Hour) 650 MG ER tablet Take 1 tablet (650 mg) by mouth every 8 (eight) hours if needed for mild pain. Do not crush, chew, or split. 30 tablet 5 2:49 PM EST 03/06/20 25 Active budesonide-form oterol (Symbicort) 160-4.5 MCG/ACT inhalerIndicati ons:Mild intermittent asthma without complication INHALE 2 PUFFS BY MOUTH TWICE DAILY IN THE MORNING AND IN THE EVENING. RINSE MOUTH AFTER USING. 10.2 g 2 03/28/20 25 Active magnesium 200 MG tabletIndicatio ns:Hypomagnesem ia TAKE 1 TABLET BY MOUTH THREE TIMES DAILY 270 tablet 1 03/28/20 Active melatonin 5 MG tabletIndicatio ns:Primary insomnia TAKE 2 TABLETS BY MOUTH EVERY DAY AT BEDTIME NEEDED FOR SLEEP 60 tablet 3 5 9:29 AM EST 11/17/19 025 Discontinued(Re order (will not trigger notification to Pharmacy)) magnesium oxide 250 MG tablet Take 2 tablets by mouth Once per day. 11/21/19 25 025 Discontinued magnesium 200 MG tabletIndicatio ns:Hypomagnesem ia Take 1 tab po tid 90 tablet 3 5 10:53 AM EST 11/30/19 25 025 Discontinued budesonide-form oterol (Symbicort) 160-4.5 MCG/ACT inhalerIndicati ons:Mild intermittent asthma without complication INHALE 2 PUFFS BY MOUTH TWICE DAILY IN THE MORNING AND AT BEDTIME RINSE MOUTH AFTER USING. DO NOT SWALLOW 10.2 g 2 5 10:53 AM EST 01/05/20 025 Discontinued Acetaminophen Extra Strength 500 MG tabletIndicatio ns:Severe dental caries,Dental root caries,Advanced periodontitis,E xcessive attrition of teeth, limited to enamel,Missing teeth, acquired,Dental calculus Take 1 tablet (500 mg) by mouth every 6 (six) hours if needed (pain). 20 tablet 02/07/20 25 025 Discontinued amoxicillin (Amoxil) 500 MG capsule Take 1 capsule (500 mg) by mouth every 8 (eight) hours for 7 days. 21 capsule 5 2:18 PM EST 03/06/20 25 025 Active Problems Problem Noted Date Diagnosed Date Pain, dental 03/05/2025 Dental root caries 03/05/2025 Excessive attrition of teeth, limited to enamel [...] 12/10/23 and INR was 13, transferred to [facility] -pt fell again 08/18/24 X ray Acute [...] diet discussed. Avoid hepatotoxic agents. -Followed by: [employer], Dr. Johnson: Note from 07/28/24 reviewed -Again strongly reviewed strict abstinence from etOH which hte pt has maintained so far. However, he unfortunately continues to smoke. Strongly counseled re that as well and will be referred to [facility]. -In terms of sarcopenia frailty, encouraged daily [...] add a night time snack such as emirati yogurt, PB etc - Tack Maker referral - CLose follow up in 2 weeks -GI note 04/28/24 - Clarified need for CCC and Tack Maker referrals - Due for EGD/colo - needs repeat echo ordered to follow up on cardiomyopathy prev EF 20-25% - Will also confirm his OP modeling manager for clearance - Pt reminded to bring [...] Recently established care with Dr Holloway at [facility] for substance use disorder recovery and support. - Clarified need for CCC and Tack Maker referrals - EGD/colo to be booked. He is aware he will need to review coumadin hold with his modeling manager for this procedure - US abd ordered - Repeat MELD labs in 3 months - Follow up 3 months -US 12/01/24 Impression: 1. Hepatic steatosis with focal fatty sparing. MRI would be confirmatory. 2. Bowel gas obscures midline structures. 3. Stable renal cortical cyst. -note from Dr. Johnson reviewed 01/20/25- Clarified need for CCC and Tack Maker referrals - EGD/colo to be booked. He is aware he will need to review coumadin hold with his modeling manager for this procedure - US abd ordered [...] diet discussed. Avoid hepatotoxic agents. -Followed by: [employer], Dr. Johnson: Note from 07/28/24 reviewed -Again [...] add a night time snack such as emirati yogurt, PB etc - Tack Maker referral - CLose follow up in 2 weeks -GI note 04/28/24 - Clarified need for CCC and Tack Maker referrals - Due for EGD/colo - needs repeat echo ordered to follow up on cardiomyopathy prev EF 20-25% - Will also confirm his OP modeling manager for clearance - Pt reminded to bring [...] Recently established care with Dr Holloway at [facility] for substance use disorder recovery and support. - Clarified need for CCC and Tack Maker referrals - EGD/colo to be booked. He is aware he will need to review coumadin hold with his modeling manager for this procedure - US abd ordered [...] diet discussed. Avoid hepatotoxic agents. -Followed by: [facility], Dr. Johnson: Note from 07/28/24 reviewed -Again [...] add a night time snack such as emirati yogurt, PB etc - Tack Maker referral - CLose follow up in 2 weeks -GI note 04/28/24 - Clarified need for CCC and Tack Maker referrals - Due for EGD/colo - needs repeat echo ordered to follow up on cardiomyopathy prev EF 20-25% - Will also confirm his OP modeling manager for clearance - Pt reminded to bring [...] Recently established care with Dr Holloway at [facility] for substance use disorder recovery and support. - Clarified need for CCC and Tack Maker referrals - EGD/colo to be booked. He is aware he will need to review coumadin hold with his modeling manager for this procedure - US abd ordered [...] by: New appointment with GI 03/15/24 at [facility] Assessment & Plan (01/19/2024 [...] due after 09/20/25 -eye care facilitated by [facility] -dental home is [facility] -health care proxy on file 02/08/2015, filed into [employer] on 06/09/23 Assessment & Plan (09/22/2024 8:39 AM EDT): -next comprehensive annual evaluation due after 09/20/25 -eye care facilitated by [facility] -dental home is [facility] -health care proxy on file 02/08/2015, filed into [employer] on 06/09/23 Assessment & Plan (03/10/2024 9:55 PM EST): -next comprehensive annual evaluation due after 03/03/2024 -eye care facilitated by [facility] -dental home is [facility] care proxy on file 02/08/2015, filed into [employer] on 06/09/23 Assessment & Plan (01/19/2024 9:20 AM EDT): -next comprehensive annual evaluation due after 03/03/2024 -eye care facilitated by [facility] -dental home is [facility] care proxy on file 02/08/2015, filed into [employer] on 06/09/23 Assessment & Plan (12/27/2023 11:02 AM EDT): -next comprehensive annual evaluation due after 03/03/2024 -eye care facilitated by [facility] -dental home is [facility] care proxy on file 02/08/2015, filed into [employer] on 06/09/23 Assessment & Plan (10/22/2023 11:16 AM EDT): -next physical exam due after 03/03/2024 -eye care facilitated by [facility] -dental home is [facility] care proxy on file 02/08/2015, filed into [employer] on 06/09/23 Assessment & Plan (03/03/2023 9:35 [...] EDT): -Hgb on admission 02/09/23 12.9. Baseline 02-15. [...] entresto startd by cardiology 05/2022 -F/u with modeling manager ANA Smith -furosemide 40 mg started during [...] entresto startd by cardiology 05/2022 -F/u with modeling manager ANA Smith -furosemide 40 mg started during [...] entresto startd by cardiology 05/2022 -F/u with modeling manager ANA Smith -furosemide 40 mg started during [...] entresto startd by cardiology 05/2022 -F/u with modeling manager ANA Smith -Furosemide 40 mg started during [...] entresto startd by cardiology 05/2022 -F/u with modeling manager ANA Smith -Furosemide 40 mg started during [...] entresto startd by cardiology 05/2022 -F/u with modeling manager ANA Smith Assessment & Plan (06/03/2022 11:12 [...] entresto startd by cardiology 05/2022 -F/u with modeling manager ANA Smith Assessment & Plan (05/07/2022 10:43 [...] daily, and amlodipine 2.5mg daily -F/u with modeling manager ANA Smith -He is overdue for follow [...] (12/24/2022): -Hospitalized for subarachnoid hemorrhage 10/2021 at [facility] after fall in the setting of supratheraputic INR of 16 and heavy alcohol use. He was changed to lovenox but could not tolerate the injections. Back on coumadin with improved INRs. He is also on plavix. ER precautions discussed. Assessment & Plan (10/22/2023 11:16 AM EDT): -Hospitalized for subarachnoid hemorrhage 10/2021 at [facility] after fall in the setting of supratheraputic INR of 16 and heavy alcohol use. He was changed to lovenox but could not tolerate the injections. Back on coumadin with improved INRs. He is also on plavix. ER precautions discussed. Assessment & Plan (06/09/2023 9:36 AM EST): -Hospitalized for subarachnoid hemorrhage 10/2021 at [facility] after fall in the setting of supratheraputic INR of 16 and heavy alcohol use. He was changed to lovenox but could not tolerate the injections. Back on coumadin with improved INRs. He is also on plavix. ER precautions discussed. Assessment & Plan (08/11/2022 7:29 AM EDT): -Hospitalized for subarachnoid hemorrhage 10/2021 at [facility] after fall in the setting of supratheraputic INR of 16 and heavy alcohol use. He was changed to lovenox but could not tolerate the injections. Back on coumadin with improved INRs. He is also on plavix. ER precautions discussed. Assessment & Plan (06/03/2022 11:07 AM EST): -Hospitalized for subarachnoid hemorrhage 10/2021 at [facility] after fall in the setting of supratheraputic INR of 16 and heavy alcohol use. Now on Lovenox and clopidogrel. Assessment & Plan (05/07/2022 10:53 AM EST): Hospitalized for subarachnoid hemorrhage 10/2021 at [facility] after fall in the setting of supratheraputic [...] daily drinking and rum - established with [facility] because insurance no longer accepted by [facility]. -Patient followed at [facility] with Dr. Cristine Deleon DO, [...] daily drinking and rum - established with [facility] because insurance no longer accepted by [facility]. -Patient followed at [facility] with Dr. Cristine Deleon DO, [...] daily drinking and rum - established with [facility] because insurance no longer accepted by [facility]. -Patient followed at [facility] with Dr. Cristine Deleon DO, [...] daily drinking and rum - established with [facility] because insurance no longer accepted by [facility]. -Patient followed at [facility] with Dr. Cristine Deleon DO, [...] daily drinking and rum - established with [facility] because insurance no longer accepted by [facility]. -Patient followed at [facility] with Dr. Cristine Deleon DO, [...] daily drinking and rum - established with [facility] because insurance no longer accepted by [facility]. -Patient followed at [facility] with Dr. Cristine Deleon [...] daily drinking and rum - established with [facility] because insurance no longer accepted by [facility]. -Patient followed at [facility] with Dr. Cristine Deleon [...] daily drinking and rum - established with [facility] because insurance no longer accepted by [facility]. Assessment & Plan (11/30/2022 8:51 PM EDT): hx of aortic stenosis s/p Aortic valve repair, hx of AF , cardiomyopathy with EF 25-30%, ,hx AAA repair, complete heart block s/p pacemaker,CAD s/P stent INR goal 2.5 to 3.5 -continue to f up with his modeling manager-next apt w Dr Deleon is on 12/08/2022 - I called cards' office # [phone] and confirmed day and hour and gave [...] daily drinking and rum - Established with [facility] because insurance no longer accepted by [facility]. Assessment & Plan (06/03/2022 11:09 AM EST): [...] ETOH with intracranial bleed. - established with [facility] because insurance no longer accepted by [facility]. Last seen 05/2022 recommending 4 week follow up Assessment & Plan (05/07/2022 10:46 AM EST): Hx [address] 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 No hx CABG. Pacemaker placed for AV radha block. -On Coumadin, managed by [facility]. - established with [facility] because insurance no longer accepted by [facility]. Presence of cardiac pacemaker 03/07/2014 Overview (12/24/2022): [...] the right side. History of substance abuse ([facility]) 07/14/2012 Assessment & Plan (08/11/2022 7:29 AM EDT): -Repots abstinence from recreational drugs. Tobacco dependence 12/30/2011 Overview (12/27/2023): -Cigg/day: more than 1 pack- daily -Age started: 11 years old -Total years smokin -Pack year history: 25 Encouraged smoking cessation resources such as pharmac[facility]rapy, [facility] smoking cessation [facility], and [facility] pharmacy smoking cessation clinic -currently [...] as pharmacomtherapy, [facility] smoking cessation group, and [facility] pharmacy smoking cessation clinic -currently [...] as pharmacomtherapy, [facility] smoking cessation group, and [facility] pharmacy smoking cessation clinic -currently [...] as pharmacomtherapy, [facility] smoking cessation group, and [facility] pharmacy smoking cessation clinic -currently [...] as pharmacomtherapy, [facility] smoking cessation group, and [facility] pharmacy smoking cessation clinic -currently [...] as pharmacomtherapy, [facility] smoking cessation group, and [facility] pharmacy smoking cessation clinic -currently [...] disorder, in partial remission 09/14/2011 Overview (03/03/2023): Denies AMELIA. -Continue with [...] the past. Letty AMELIA. Hypertension 08/24/2011 Overview (12/20/2024): -Blood pressure is [...] started during hospitalization 05/17/23 [facility] Assessment & Plan (10/22/2023 11:13 AM EDT): -Continue metoprolol ER 50mg, and amlodipine 2.5mg daily -lisinopril discontinued by cardiology and Entresto started 05/2022 -furosemide 40 mg started during hospitalization 05/17/23 -[facility] Assessment & Plan (06/09/2023 9:36 [...] [facility] and [facility] televist tolerating the medication. Admits to 3 [...] Disorder [facility] and [facility] televist tolerating the medication. Admits to 3 [...] to 20 doses. Missing teeth, acquired 06/08/2024 0810/2024 Assessment & Plan (09/22/2024 8:39 AM [...] Fall 06/09/2023 11/29/2024 Rhabdomyolysis 06/09/2023 10/22/2023 Sepsis (CMS/HCC) 06/09/2023 10/22/2023 Ambien accidental overdose, subsequent encounter 06/09/2023 10/22/2023 Overview (06/09/2023): Confirmed with psychiatry that he is off Ambien. Assessment & Plan (06/09/2023 8:55 AM EST): Confirmed with psychiatry that he is off Ambien. Pneumonia due to infectious organism 06/09/2023 10/20/2023 EDGAR (acute kidney injury) 06/07/2023 Alcohol withdrawal ([facility]) 04/15/2023 04/15/2023 10/22/2023 Alcohol abuse 12/24/2022 10/22/2023 Complete heart block ([facility]) 12/24/2022 11/29/2024 Acute hyponatremia 12/24/2022 Lumbar radiculopathy [...] Encounters Date Type Department Care Team Description 04/01/2025 Orders Only GENERIC EXTERNAL DATA DEPARTMENT Provider, Generic External Data 03/28/2025 Refill [facility] [address] [place] [address] Nathalie Hsu MD Mild intermittent asthma without complication; Hypomagnesemia 03/27/2025 Telephone [facility] [address] [place] [phone] Nathalie Hsu MD Critical INR 03/27/[address] [address] Shannan Barrow, RN Appointment Request 03/21/[address] [phone] Nathalie Hsu MD Critical INR 03/14/2025 Telephone [facility] [address] [place] [address] Nathalie Hsu MD Call Back Request 03/13/2025 Telephone [facility] [address] [place] [phone] Nathalie Hsu MD CRITICAL LAB 03/09/2025 11:00 AM EST Office Visit [facility] [address] [place] [phone] Chiquita Montgomery Dental calculus (Primary Dx); Advanced periodontitis 03/07/2025 Telephone [facility] [address] [place] [address] BOLANO 03/07/2025 Telephone [facility] [address] [place] [phone] Nathalie Hsu MD INR Result 03/06/2025 Telephone [facility] [address] [place] [phone] Panchito Lamas DDS 03/06/2025 Refill [facility] [address] [place] [address] Nathalie Hsu MD Severe dental caries; Dental root caries; Advanced periodontitis; Excessive attrition of teeth, limited to enamel; Missing teeth, acquired; Dental calculus 03/06/2025 Telephone [facility] [address] [place] [phone] Panchito Lamas DDS medication 03/05/2025 2:00 PM EST Office Visit [facility] [address] [place] [phone] Panchito Lamas DDS Pain, dental (Primary Dx); Dental root caries 03/05/2025 Refill [facility] [address] [place] [phone] Nathalie Hsu MD Primary insomnia 03/04/2025 Refill [facility] [address] [place] [phone] Nathalie Hsu MD Primary insomnia 02/28/2025 Orders Only GENERIC EXTERNAL DATA DEPARTMENT Provider, Generic External Data 02/27/2025 Telephone [facility] [address] [place] [phone] Nathalie Hsu MD INR result 02/20/2025 Telephone [facility] [address] [place] [address] Nathalie Hsu MD CRITICAL LAB 02/13/2025 Telephone [facility] [address] [place] [phone] Nathalie Hsu MD CRITICAL LAB 02/09/2025 Refill [facility] [address] [place] [phone] Nathalie Hsu MD Pain 02/09/2025 Refill [facility] [address] [place] [phone] Nathalie Hsu MD History of prosthetic heart valve 02/07/2025 Refill [facility] [address] [place] [address] Nathalie Hsu MD Pain 02/06/2025 Refill [facility] [address] [place] [address] Nathalie Hsu MD Severe dental caries; Dental root caries; Advanced periodontitis; Excessive attrition of teeth, limited to enamel; Missing teeth, acquired; Dental calculus 02/06/2025 Telephone [facility] [address] [place] [phone] Nathalie Hsu MD CRITICAL LAB 02/04/2025 Refill [facility] [address] [place] [phone] Nathalie Hsu MD Hypertension, unspecified type; Gastroesophageal reflux disease without esophagitis 02/01/2025 Outside Procedure [facility] [address] [place] [phone] Seth, Zabrina, OD Presbyopia (Primary Dx) 01/31/2025 10:00 AM EDT Office Visit [facility] [address] [place] [phone] Seth Zabrina, OD Myopia of both eyes (Primary Dx) 01/31/2025 Travel 01/30/2025 Telephone [facility] [address] [place] [address] Nathalie Hsu MD INR result 01/23/2025 Telephone [facility] [address] [place] [address] Nathalie Hsu MD INR result 01/16/2025 Telephone [facility] [address] [place] [address] Nathalie Hsu MD INR result 01/12/2025 Refill [facility] [address] [place] [phone] Nathalie Hsu MD Anemia, unspecified type 01/10/2025 Telephone [facility] [address] [place] [address] Nathalie Hsu MD Coagulation Disorder 01/08/2025 10:15 AM EDT Office Visit [facility] [address] [place] [address] Chiquita Montgomery Advanced periodontitis (Primary Dx); Excessive attrition of teeth, limited to enamel; Dental calculus; Missing teeth, acquired 01/04/2025 Refill [facility] [address] [place] [address] Nathalie Hsu MD Mild intermittent asthma without complication; Tobacco dependence; Severe dental caries; Dental root caries; Advanced periodontitis; Excessive attrition of teeth, limited to enamel; Missing teeth, acquired; Dental calculus 01/02/2025 Telephone [facility] [address] [place] [address] Nathalie Hsu MD results 01/02/2025 Refill [facility] [address] [place] [address] Nathalie Hsu MD Tobacco dependence; History of prosthetic heart valve 01/01/2025 9:00 AM EDT Office Visit [facility] [address] [place] [address] Seth, Zabrina, OD Combined forms of age-related cataract of both eyes (Primary Dx); Glaucoma suspect of both eyes; Choroidal nevus, left eye; Skin lesion of cheek; Presbyopia 01/01/2025 Travel from Last 3 Months Immunizations Immunization Administration [...] Sign Reading Time Taken Comments Blood Pressure 128/76 03/09/2025 10:51 AM EST Pulse 80 11/29/2024 11:01 AM EDT Temperature [...] Description 04/24/2025 11:30 AM EST Office Visit [facility] [address] [place] [address] Sheila Grant MD [address] [place] [address] 05/08/2025 10:30 AM EST Office Visit [facility] [address] [place] [address] Panchito Lamas DDS [address] [place] [address] 05/29/2025 11:00 AM EST Office Visit [facility] [address] [place] [address] Chiquita Montgomery [address] [place] [address] 07/02/2025 1:00 PM EDT Office Visit [facility] [address] [place] [address] Zabrina Ann, OD [address] [place] [address] 07/24/2025 2:00 PM EDT Office Visit [facility] [address] [place] [address] Adalberto [facility] [address] [place] [address] Health Maintenance Due Date Last Done Comments [...] Exam 12/10/2024 06/08/2024 FOBT 12/29/2024 12/30/2023 Dental Prophylaxis 07/10/2025 01/08/2025 Depression Screening 09/20/2025 09/20/2024, 09/21/19 25 Disability Screening 09/20/2025 09/20/2024 SDOH Screening 09/20/2025 09/20/2024 Alcohol/Substance Use Screening 11/29/2025 11/29/2024 Dental X-Ray: Bitewings 03/06/2026 03/05/2025, 06/08 Tobacco Screening 03/09/2026 03/09/2025 Colorectal Cancer Screening 12/29/2026 FIT DNA/Cologuard 12/29/2026 [...] Diagnosis Comments HIGH SENSITIVITY TROPONIN I Routine 04/01/2025 1:05 AM EST MAGNESIUM Routine 04/01/2025 1:05 AM EST COMPREHENSIVE METABOLIC PANEL, FASTING Routine 04/01/2025 1:05 AM EST PROTHROMBIN TIME-INR Routine 04/01/2025 1:05 AM EST CBC WITH AUTO DIFFERENTIAL Routine 04/01/2025 1:05 AM EST SARS COV2/INFLUENZA A/B AND RSV RNA QL NAAT Routine 04/01/2025 1:05 AM EST PROTHROMBIN TIME-INR Routine 03/27/2025 PROTHROMBIN TIME-INR Routine 03/20/2025 PROTHROMBIN TIME-INR Routine 03/13/2025 CASE PRESENTATION, DETAILED AND EXTENSIVE TREATMENT PLANNING Routine 03/09/2025 11:00 AM EST Dental calculus Advanced periodontitis LL PERIODONTAL SCALING AND ROOT PLANING - 4 OR MORE TEETH PER QUADRANT Routine 03/09/2025 11:00 AM EST Dental calculus Advanced periodontitis UL PERIODONTAL SCALING AND ROOT PLANING - 4 OR MORE TEETH PER QUADRANT Routine 03/09/2025 11:00 AM EST Dental calculus Advanced periodontitis PROTHROMBIN TIME-INR Routine 03/06/2025 CASE PRESENTATION, DETAILED AND EXTENSIVE TREATMENT PLANNING Routine 03/05/2025 2:00 PM EST BITEWING - SINGLE RADIOGRAPHIC IMAGE Routine 03/05/2025 2:00 PM EST INTRAORAL - PERIAPICAL FIRST RADIOGRAPHIC IMAGE Routine 03/05/2025 2:00 PM EST LIMITED ORAL EVALUATION - PROBLEM FOCUSED Routine 03/05/2025 2:00 PM EST OBSX1 Routine 02/28/2025 5:51 AM EST PROTHROMBIN TIME-INR Routine 02/27/2025 PROTHROMBIN TIME-INR Routine [...] Dental calculus 3 MO COMPOSITE FILLING Routine 01/08/2025 12:00 AM EDT PROTHROMBIN TIME-INR Routine 01/02/2025 OCT, OPTIC NERVE - OU - BOTH EYES Routine 01/01/2025 9:00 AM EDT Glaucoma suspect of both eyes INTRAORAL - COMPLETE SERIES OF RADIOGRAPHIC IMAGES [...] Relevant to Health Maintenance Results * (ABNORMAL) Comprehensive Metabolic Panel, Fasting (04/01/2025 1:05 AM EST) Sodium 133(L) 135 - 145 mmol/L [facility] Potassium 4.4 3.3 - 5.1 mmol/L [facility] Comment:Slight Hemolysis.Int erpret result with caution. Chloride 107 96 - 108 mmol/L [facility] Carbon Dioxide 18(L) 22 - 29 mmol/L [facility] Anion Gap 12 12 - 20 [facility] Urea Nitrogen (BUN) 14 9 - 16 mg/dL [facility] Creatinine, Serum 1.07 0.5 - 1.4 mg/dL [facility] Creatinine Clr Calc Pharmacy 53.8 [facility] Comment:eGFR (calculated fro m the MDRD study equation) and eCrCl(calculated from the Cockcroft-Gault equation) are based ondifferent parameters and may not yield comparable results.If eCrCl result is absurd, please check patient'sheight/weight. Estimated Glomerular Filt Rate >60 [facility] Comment:Chronic Kidney Disea se: Estimated GFR < 60 mL/min/1.21h5Zicgng Kidney Disease: Estimated GFR < 15 mL/min/1.73m2 Glucose Fasting 96 60 - 99 mg/dL [facility] Calcium 8.6 8.4 - 10.2 mg/dL [facility] Bilirubin, Total 0.2 0.0 - 1.0 mg/dL [facility] Aspartate Amino Transferase 34 5 - 37 U/L [facility] Comment:Slight Hemolysis.Int erpret result with caution. Alanine Aminotransferase 14 0 - 40 U/L [facility] Total Protein 6.9 6.5 - 8.0 g/dL [facility] Albumin Level 3.5 3.5 - 5.0 g/dL [facility] Alkaline Phosphatase 160(H) 39 - 117 U/L [facility] 04/01/2025 1:05 AM EST 04/01/2025 1:09 AM EST us Generic External Data Provider LAB BLOOD ORDERAB LES Final Result [facility] [address] [place] [phone] * High Sensitivity Troponin I (04/01/2025 1:05 AM EST) TROPONIN I HIGH SENSITIVITY 3.2 <3.5 - 35.0 ng/L [facility] Comment:The Ponce high sens itivity Troponin-I results should beused in conjunction with other diagnostic information suchas ECG, clinical observations and information, and patientsymptoms to aid in the diagnosis of [place]. 04/01/2025 1:05 AM EST 04/01/2025 1:09 AM EST Generic External Data Provider LAB BLOOD ORDERAB LES Final Result Performing Organization Address [facility] de Phone Number [facility] [address] [place] [phone] * SARS-CoV-2 RNA, Influenza A/B, and RSV RNA, Ql NAAT (04/01/2025 1:05 AM EST) Pathologist [facility] Influenza A PCR NEGATIVE Negative [facility] Influenza B PCR NEGATIVE Negative [facility] Resp Syncy Virus RNA Qual PCR NEGATIVE Negative [facility] SARS COV2 PCR NEGATIVE Negative [facility] Comment:All test results mus t be [...] use by authorized laboratories.Testing performed on the [employer] GeneXpert utilizingreal-time RT-PCR.All SARS CoV2 and positive influenza A/B results arereported to [facility]. 04/01/2025 1:05 AM EST 04/01/2025 2:29 AM EST Generic External Data Provider LAB MICROBIOLOGY - GENERAL ORDERABLES Final Result Performing Organization Address [facility] Co de Phone Number [facility] [address] [place] [address] [phone] * (ABNORMAL) CBC auto differential (04/01/2025 1:05 AM EST) Pathologist [facility] White Blood Count 5.3 4.8 - 10.8 X10*3/uL [facility] Red Blood Count 3.89(L) 4.60 - 5.80 X10*6/uL [facility] Hemoglobin 13.0(L) 14.0 - 18.0 g/dl [facility] Hematocrit 39.1(L) 42.0 - 52.0 % [facility] Mean Corpuscular Volume 100.5(H) 80.0 - 98.0 fL [facility] Mean Corpuscular Hemoglobin 33.4(H) 27.0 - 33.0 pg [facility] Mean Corpuscular HGB Conc 33.2 31.0 - 36.0 g/dl [facility] Red Cell Distribution Width 16.2(H) 11.0 - 16.0 % [facility] Platelet Count 196 160 - 400 X10*3/uL [facility] Mean Platelet Volume 9.5 9.4 - 12.4 fL [facility] Neutrophils Percent Auto 60.4 45 - 73 % [facility] Imm Gran Pct Auto 0.9(H) 0.0 - 0.4 % [facility] Lymphocytes Percent Auto 20.6 20 - 40 % [facility] Monocytes Percent Auto 16.7(H) 2 - 11 % [facility] Eosinophils Percent Auto 0.6 0 - 4 % [facility] Basophils Percent Auto 0.8 0 - 2 % [facility] NRBC Pct Auto 0.0 0.0 - 0.2 /100WBC [facility] Neutrophils Absolute Auto 3.2 2.0 - 8.3 x10*3/uL [facility] Imm Gran Abs Auto 0.05(H) 0.00 - 0.03 X10*3/uL [facility] Lymphocytes Absolute Auto 1.1(L) 1.2 - 4.9 X10*3/uL [facility] Monocytes Absolute Auto 0.9 0.1 - 1.2 X10*3/uL [facility] Eosinophils Absolute Auto 0.0 0.0 - 0.4 X10*3/uL [facility] Basophils Absolute Auto 0.0 0.0 - 0.2 X10*3/uL [facility] NRBC Abs Auto 0.000 0.0 - 0.012 X10*3/uL [facility] 04/01/2025 1:05 AM EST 04/01/2025 1:09 AM EST us Generic External Data Provider LAB BLOOD ORDERAB LES Final Result Performing Organization Address [facility] Co de Phone Number [facility] [address] [place] [address] [phone] * (ABNORMAL) Prothrombin Time-INR (04/01/2025 1:05 AM EST) Only the most recent of14 resultswithin the time period is included. Prothrombin Time 48.4(H) 11.2 - 13.5 SEC [facility] INTERNATIONAL NORM RATIO 4.1(H) 0.9 - 1.1 [facility] Comment:INTERNATIONAL NORMAL IZED RATIO (INR) REFERENCE [...] ORDERAB LES Final Result Performing Organization Address [facility] Co de Phone Number [facility] [address] [place] [address] [phone] * Magnesium (04/01/2025 1:05 AM EST) Magnesium 1.7 1.6 - 2.6 mg/dL [facility] 04/01/2025 1:05 AM EST 04/01/2025 1:09 AM EST Generic External Data Provider LAB BLOOD ORDERAB LES Final Result Performing Organization Address [facility]/State/ZIP Co de Phone Number [facility] [address] [place] [phone] * OBSX1 (02/28/2025 5:51 AM EST) OBS1 NEGATIVE NEGATIVE [facility] 02/28/2025 5:51 AM EST 02/28/2025 5:54 AM EST Generic External Data Provider LAB BLOOD ORDERAB LES Final Result [facility] [address] [place] [phone] [phone] * OCT, Optic Nerve - OU - [...] 6 months for a visual field test. Zabrina Ann OD OPHTH TOMOGRAPHY Final Result * Cologuard?? colon cancer screening (12/30/2023 1:30 AM EDT) Cologuard Result Negative Negative 01/05/20 1:07 AM EDT [facility] (CLIA #:[id number]) Comment: NEGATIVE TEST RESULT. A negative Cologuard [...] (Tien Landeros al, N Engl J Med 2014;370(14):7129-8560) The normal value (reference range) for this assay is negative. COLOGUARD RE-SCREENING RECOMMENDATION: Periodic colorectal cancer screening is an important part of preventive healthcare for asymptomatic individuals at average risk for colorectal cancer. Following a negative Cologuard result, the [place] [employer] Society and U.S. Multi-Society Task Force screening guidelines recommend a Cologuard re-screening interval of 3 years. References: [place] [employer] Guideline for Colorectal Cancer Screening: https://www.cancer.org/cancer/pooqh-kkghjf-rfkjdd/fthgdfslr-bwivmytlt-wxwccrh/ac s-rec ommendations.html.; Honorio DK, Lita NEGRETE, Luba JamesK, Colorectal Cancer Screening: Recommendations for Physicians and Patients from the U.S. Multi-Society Task Force on Colorectal Cancer Screening , Am J Gastroenterology 2017; 112:9478-3837. TEST DESCRIPTION: Composite algorithmic analysis of stool [...] (Tien Landeros al, N Engl J Med 2014;370(14):9066-7368.) Cologuard may produce a false negative or false positive result (no colorectal cancer or precancerous polyp present at colonoscopy follow up). A negative Cologuard test result does not guarantee the absence of CRC or advanced adenoma (pre-cancer). The current Cologuard screening interval is every 3 years. ([place] [employer] and U.S. Multi-Society Task Force). Cologuard performance data in a 10,000 patient pivotal study using colonoscopy as the reference method can be accessed at the following location: www.[employer].BOKU/results. Additional description of the Cologuard test process, warnings and precautions can be found at www.[employer].BOKU. Stool specimen (specimen) Rectal contents / Unknown 12/30/2023 1:30 AM EDT 01/01/2024 3:30 PM EDT Nathalie Hsu MD LAB MOLECULAR DIAGNOSTICS ORDERABLES Final Result [facility] (CLIA #:[id number]) [place] [address], * Hepatitis C Antibody with Reflex to HCV, RNA, Quantitative, Real-Time PCR (08/10/2022 11:24 AM EDT) Hepatitis C Antibody NON-REACT KG NON-REACT KG [employer] [place] [employer] Index 0.13 <1.00 [employer] [place] [employer] Comment: HCV antibody was non-reactive. There is no laboratory evidence of HCV infection. In most cases, no further action is required. However, if recent HCV exposure is suspected, a test for HCV RNA (test code 85669) is suggested. For additional information please refer to http://education.[employer]/faq/ATE42x4 (This link is being provided for informational/ educational purposes only.) Blood Venous blood specimen / Unknown 08/10/2022 11:24 AM EDT 08/10/2022 11:25 AM EDT Narrative [facility] - 08/16/2022 12:40 AM EDT FASTING:NO FASTING: NO Nathalie Hsu MD LAB BLOOD ORDERABLES Final Result [facility] [address], [place] [address] [employer] [place] [employer] [address] [place] [address] * HIV-1/2 Antigen and Antibodies, Fourth Generation, with Reflexes (08/10/2022 11:24 AM EDT) [facility] HIV Antigen/Antibody, 4th Generation NON-REAC TIVE NON-REAC TIVE [employer] [place] [employer] Comment: HIV-1 antigen and HIV-1/HIV-2 antibodies were [...] purpose. For additional information please refer to http://education.[employer].BOKU/faq/YJM345 (This link is being provided for informational/ educational purposes only.) The performance of this assay has not been clinically validated in patients less than 2 years old. Blood Venous blood specimen / Unknown 08/10/2022 11:24 AM EDT 08/10/2022 11:25 AM EDT Narrative [facility] - 08/16/2022 12:40 AM EDT FASTING:NO FASTING: NO Nathalie Hsu MD LAB BLOOD ORDERABLES Final Result [facility] [address], [place] [address] [employer] [place] [employer] [address] [place] [address] * Lipid Panel, Standard (08/10/2022 11:24 AM EDT) Cholesterol, Total 161 <200 mg/dL [employer] [place] [employer] HDL Cholesterol 62 > OR = 40 mg/dL [employer] [place] [employer] Triglycerides 109 <150 mg/dL [employer] [place] [employer] LDL Cholesterol 80 mg/dL (calc) [employer] [place] [employer] Comment: Reference range: <100 Desirable range <100 mg/dL for primary prevention; <70 mg/dL for patients with CHD or diabetic patients with > or = 2 CHD risk factors. LDL-C is now calculated using the Gallo calculation, which is a validated novel method providing better accuracy than the Friedewald equation in the estimation of LDL-C. Anthony SS et al. FLAKITA. 2013;310(19): 6998-6252 (http://education.UB Access/faq/COA741) Chol/HDLC Ratio 2.6 <5.0 (calc) [employer] [place] [employer] Non-HDL Cholesterol 99 <130 mg/dL (calc) [employer] [place] [employer] Comment: For patients with diabetes plus 1 major ASCVD risk factor, treating to a non-HDL-C goal of <100 mg/dL (LDL-C of <70 mg/dL) is considered a therapeutic option. Blood Venous blood specimen / Unknown 08/10/2022 11:24 AM EDT 08/10/2022 11:25 AM EDT Narrative [facility] - 08/16/2022 12:40 AM EDT FASTING:NO FASTING: NO Nathalie Hsu MD LAB BLOOD ORDERABLES Final Result [facility] [address], [place] [address] [employer] [place] [employer] [address] [place] [address] * Hm Colonoscopy (03/05/2012) Colonoscopy Dr. Zhang Tosha Mak MD HEALTH MAINTENANCE Final Result from Last 3 Months or Most Recently Relevant to Health Maintenance Insurance [facility] C3 DENTAL-[facility] MEDICAID STAND ADULT Advance Directives Documents on File Type Date Recorded Patient Pomology Teacher Expl anation Advance Directives and Living Will 06/10/2023 1:14 PM Health Care Proxy Care Teams Juice Standardizer Relationship Specialty Start Date End Date Nathalie Hsu MD [address] [place] [address] PCP - General Family Medicine 09/27/13 Shannan Barrow, RN [address] [place] [address] Registered Nurse 02/29/24 Lisbeth Johnson [address] [place] [address] Drive 3rd [place] [address] Gastroenterology 03/15/24 Tonya Poole Funeral Service ApprenticeHand Clerical Verifier 01/19/24 Sherin ([facility]) Registered Nurse 02/29/24 Marcos Verdin MD [place] [facility] [address] [place] [address] Cardiology 03/10/24 Omid Vincent Psychiatry 03/15/24 2[employer]uche 05/17/22
--- OUTSIDE RECORDS SUMMARY | 2025-04-01 03:05 | XMS_ITS | Encounter Summary ---
Author Organization [employer] Address [address] [place] [address] Care Team Providers Care Clam Dredger Name Role Phone Nathalie Hsu MD Primary Care Provider [phone] Shannan Barrow RN Unavailable [phone] Lisbeth Johnson Unavailable Reason for Visit * Reason Onset Date Comments Critical INR 03/27/2025 Encounter Details Date Type Department Care Team (Late st Contact Info) Description 03/27/2025 Telephone [facility] [address] [place] [address] Nathalie Hsu MD [address] [place] [address] Critical INR Social History Tobacco Use Types [...] Encounter - Shannan Barrow RN - 03/27/2025 3:32 PM EST S: Pt is due for PT/INR today due to hx of DVT's. Pt's target INR is 2.5-3.5. This RN spoke with KAVIN Duff. Pt has been compliant with INR draws. Pt is a daily [facility]NA pt so she checks on him everyday. INR today is 2.8. Pt took all doses of coumadin this week per Sherin and told her that he hasn't been drinking. O: INR today: 2.8 Current orders: take 5mg M, F/ 2.5mg the rest of the week A: Hx of DVT Risk for blood clot due to sub therapeutic INR Hx of afib Hx of prosthetic heart valve P: Will keep same dose d/t pt with fluctuating INR. Orders are to continue same dose and recheck INR 04/03/25. Pt's INR fluctuates frequently based on ETOH use. VNA goes to house daily and frequentlychecks INR in between ordered draws for pt safety. Please try to abstain from alcohol use. [facility]NA aware of dosing and draw date. Shannan Barrow RN * Telephone Encounter - Ioana Loomis RN - 03/27/2025 2:56 PM EST Incoming call from Sherin homecare RN . Sherin states the pt's INR today is 2.8 . Will route this message to the Green team nurses ,and the pt ' s PCP for review. TY. A warm handoff call was placed to Greta RIDLEY . documented in this encounter Plan of Treatment Upcoming Encounters Date Type Department Care Team (Late st Contact Info) Description 04/24/2025 11:30 AM EST Office Visit [facility] P[facility] [address] [place] [address] Sheila Grant MD [address] [place] [address] 05/08/2025 10:30 AM EST Office Visit [facility] ADULT DENTAL [address] [place] [address] Panchito Lamas DDS [address] [place] [address] 05/29/2025 11:00 AM EST Office Visit [facility] ADULT DENT[facility] [address] [place] [address] Ulises, Chiquita [address] [place] [address] 07/02/2025 1:00 PM EDT Office Visit [facility] OPTOMETRY [address] [place] [address] Zabrina Ann, OD [address] [place] [address] 07/24/2025 2:00 PM EDT Office Visit [facility] ADULT DENT[facility] [address] [place] [address] Chiquita Montgomery [address] [place] [address] documented as of this encounter Procedures Procedure Name Priority Date/Time Associated Diagnosis Comments PROTHROMBIN TIME-INR Routine 03/27/2025 documented in this encounter Results * Prothrombin Time-INR (03/27/2025) INR 2.80 2.50 - 3.50 EXTERNAL LAB Protime EXTERNAL LAB Blood Venous blood specimen / Unknown Nathalie Hsu MD LAB BLOOD ORDERABLES Final Result EXTERNAL LAB documented in this encounter Visit Diagnoses Diagnosis History of prosthetic heart valve documented in this encounter Additional Health Concerns Assessment Noted Time PHQ-9 Depression Total Score: 0 09/21/19 25 3:24 PM EDT documented as of this encounter Care Teams Clam Dredger Relationship Specialty Start Date End Date Nathalie Hsu MD [address] [place] [address] PCP - General Family Medicine 09/27/13 Shannan Barrow, RN [address] [place] [address] Registered Nurse 02/29/24 Lisbeth Johnson [address] [place] [address] Drive 3rd [place] [address] Gastroenterology 03/15/24 Tonya Poole Refrigerating Machine OperatorTire Care Manager 01/19/24 Sherin (JASMEETA S) Registered Nurse 02/29/24 Marcos Verdin MD [facility] [facility] [address] [place] [address] Cardiology 03/10/24 Omid Vincent Psychiatry 03/15/24 [employer] 05/17/22 documented as of this encounter
--- OUTSIDE RECORDS SUMMARY | 2025-04-01 03:05 | XMS_ITS | Encounter Summary ---
Author Organization [employer] Address [address] [facility] [facility] 7t [place] [address] Care Team Providers Care Printing Screen Assembler Name Role Phone Nathalie Hsu MD Primary Care Provider [phone] Shannan Barrow RN Unavailable [phone] Lisbeth Johnson Unavailable Reason for Visit * Reason Onset Date Comments Med Refill 07/01/2023 Encounter Details Date Type Department Care Team (Late st Contact Info) Description 07/01/2023 Telephone [facility] [address] [place], [place] [phone] Nathalie Hsu MD [address] [place], [place] [phone] Med Refill Social History Tobacco Use Types [...] the past 12 months, has t he [employer], [employer], oil or water [employer] threatened to shut off services in your [...] 9:11 AM EDT Medication was sent to [facility] on 03/03/23 90 day supply with 1 refill. * Telephone Encounter - Amie Ramsey - 07/01/2023 9:06 AM EDT TC from pt requesting medication refill. Medications needing refill : pantoprazole (ProtoNix) 40 MG EC tablet To be sent to: [facility] - [place], [place] - [address] [facility] [address] [facility] [phone] documented in this encounter Plan of Treatment Upcoming Encounters Date Type Department Care Team ([facility] st Contact Info) Description 04/24/2025 11:30 AM EST Office Visit [facility] MED [facility] PEDS [address] [place] [address] Sheila Grant MD [address] [place] [address] 05/08/2025 10:30 AM EST Office Visit [facility] ADULT DENTAL [address] [place] [address] Cydney Panchito, DDS [address] [place] [address] 05/29/2025 11:00 AM EST Office Visit [facility] ADULT DENTAL [address] [place] [address] Ulises Chiquita [address] [place] [address] 07/02/2025 1:00 PM EDT Office Visit [facility] OPTOMETRY [address] [place] [address] Seth, Zabrina, OD [address] [place] [address] 07/24/2025 2:00 PM EDT Office Visit [facility] ADULT DENTAL [address] [place] [address] Ulises Chiquita [address] [place] [address] documented as of this encounter Visit Diagnoses Not on filedocumented in this encounter Additional Health Concerns Assessment Noted Time PHQ-9 Depression Total Score: 0 06/09/19 9:13 AM EST documented as of this encounter Care Teams Printing Screen Assembler Relationship Specialty Start Date End Date Nathalie Hsu MD [address] [place] [phone] PCP - General Family Medicine 09/27/13 Shannan Barrow, KHAI [address] [place] [address] Registered Nurse 02/29/[address] [place] [address] Gastroenterology 03/15/24 Tonya Poole Diesel Bus MechanicBaby Doctor 01/19/24 Sherin ([facility]) Registered Nurse 02/29/24 MD [facility] [facility] [address] [place] [address] Cardiology 03/10/24 Omid Vincent Psychiatry 03/15/24 [email or web address] 05/17/22 documented as of this encounter
--- OUTSIDE RECORDS SUMMARY | 2025-04-01 03:05 | XMS_ITS | Encounter Summary ---
Author Organization [employer] Address [address] [place] [address] Care Team Providers Care Drawing Operator Name Role Phone Nathalie Hsu MD Primary Care Provider [phone]- [phone] Shannan Barrow RN Unavailable [phone] Lisbeth Johnson Unavailable Reason for Visit * Reason Onset Date Comments Med Refill 03/09/2024 Encounter Details Date Type Department Care Team (Late st Contact Info) Description 03/09/2024 Telephone [facility] MEDICINE [address] [place] [address] Nathalie Hsu MD [address] [place], [place] [id number] Med Refill Social History Tobacco Use Types [...] 9:13 AM EST Medication was sent to [facility] on 12/13/23 #60 with 3 refills. * Telephone Encounter - Alf Avilez - 03/09/2024 9:07 AM EST TC from pt requesting medication refill. Medications needing refill : melatonin 5 MG tablet To be sent to: [facility] documented in this encounter Plan of Treatment Upcoming Encounters Date Type Department Care Team (Late st Contact Info) Description 04/24/2025 11:30 AM EST Office Visit [facility] MED & PEDS [address] [place], [place] [phone] Sheila Grant MD 505 [place] [address] 05/08/2025 10:30 AM EST Office Visit [facility] ADULT DENTAL [address] [place] [address] Panchito Lamas, DDS [address] [place] [address] 05/29/2025 11:00 AM EST Office Visit [facility] ADULT DENTAL [address] [place] [address] Ulises Chiquita [address] [place] [address] 07/02/2025 1:00 PM EDT Office Visit [facility] OPTOMETRY [address] [place] [address] Seth, Zabrina, OD [address] [place] [address] 07/24/2025 2:00 PM EDT Office Visit [facility] ADULT DENTAL [address] [place] [address] Adalberto Montgomeryaris [address] [place] [address] documented as of this encounter Visit Diagnoses Not on filedocumented in this encounter Additional Health Concerns Assessment Noted Time PHQ-9 Depression Total Score: 0 06/09/19 24 9:13 AM EST documented as of this encounter Care Teams Drawing Operator Relationship Specialty Start Date End Date Nathalie Hsu MD [address] [place] [address] PCP - General Family Medicine 09/27/13 Shannan Barrow, KHAI [address] [place] [address] Registered Nurse 02/29/24 Lisbeth Johnson [address] 3rd [place] [address] Gastroenterology 03/15/24 Tonya Poole Bell ClerkTechnology Recruiter 01/19/24 Sherin ([facility]) Registered Nurse 02/29/24 MD [facility] [facility] [address] [place] [address] Cardiology 03/10/24 Omid Vincent Psychiatry 03/15/24 [employer] 05/17/22 documented as of this encounter
--- OUTSIDE RECORDS SUMMARY | 2025-04-01 03:05 | XMS_ITS | Encounter Summary ---
Author Organization [employer] Address [address] 7[address] [place] [address] Care Team Providers Care Central Supply Supervisor Name Role Phone Nathalie Hsu MD Primary Care Provider [phone] Shannan Barrow RN Unavailable [phone] Lisbeth Johnson Unavailable Reason for Visit * Reason Onset Date Comments Call Back Request 03/14/2025 Encounter Details Date Type Department Care Team (Late st Contact Info) Description 03/14/2025 Telephone [facility] MEDICINE [address] [place] [address] Nathalie Hsu MD [address] [place] [address] Call Back Request Social History Tobacco Use Types Packs/Day [...] Telephone Encounter - Greta Burt RN - 03/19/2025 2:52 PM EST Telephone call returned to KAVIN Duff at [facility]. She states that the pt has been refusing to take lactulose 3x daily as prescribed, she educated him on importance of this medication, he is currently taking it 1x daily. She reports that his drinking has increased recently and he has dark stools. She would like PCP to be aware. She will call with his INR tomorrow as scheduled. No further updates provided. Pt was no show to [facility] 02/16/25. Was prescribed 90 days of iron on 01/12/25. * Telephone Encounter - Scott Young - 03/14/2025 2:39 PM EST Tc from Sherin with [facility] [employer] reporting that pt has been drinking more and that his feces has been really dark. Sherin also states that pt is having a hard time taking the medication lactulose (Chronulac) 10 GM/15ML solution . Sherin would like a call back at [phone] documented in this encounter Plan of Treatment Upcoming Encounters Date Type Department Care Team (Late st Contact Info) Description 04/24/2025 11:30 AM EST Office Visit [facility]EDS [address] [place] [address] Sheila Grant MD 505 [place] [address] 05/08/2025 10:30 AM EST Office Visit [facility] ADULT DENTAL [address] [place] [address] Panchito Lamas DDS [address] [place] [address] 05/29/2025 11:00 AM EST Office Visit [facility] ADULT DENTAL [address] [place] [address] Ulises, Chiquita [address] [place] [address] 07/02/2025 1:00 PM EDT Office Visit [facility] OPTOMETRY [address] [place] [address] SethZabrina funes, OD 230 [place] [address] 07/24/2025 2:00 PM EDT Office Visit [facility] ADULT DENTAL [address] [place] [address] Ulises, Chiquita [address] [place] [address] documented as of this encounter Visit Diagnoses Not on filedocumented in this encounter Additional Health Concerns Assessment Noted Time PHQ-9 Depression Total Score: 0 09/21/19 25 3:24 PM EDT documented as of this encounter Care Teams Central Supply Supervisor Relationship Specialty Start Date End Date Nathalie Hsu MD [address] [place] [address] PCP - General Family Medicine 09/27/13 Shannan Barrow, RN [address] [place] [address] Registered Nurse 02/29/[address] [place] [address] Gastroenterology 03/15/24 Tonya Poole Brick Chimney BuilderWarehouse Processor 01/19/24 Sherin ([facility]) Registered Nurse 02/29/24 Marcos Verdin MD [place] [facility] [address] [place] [address] Cardiology 03/10/24 Omid Vincent Psychiatry 03/15/24 [employer] 05/17/22 documented as of this encounter
--- OUTSIDE RECORDS SUMMARY | 2025-04-01 03:06 | XMS_ITS | Encounter Summary ---
Author Organization [employer] [facility] Address [address] 7t [place] [address] Care Team Providers Care Counterintelligence/Humint Specialist Name Role Phone Nathalie Hsu MD Primary Care Provider [phone] Shanann Barrow RN Unavailable [phone] Lisbeth Johnson Unavailable Encounter Details Date Type Department Care Team (Late st Contact Info) Description 05/12/2022 Abstract [facility] MEDICINE [address] [place] [address] Nathalie Hsu MD [address] [place] [address] Social History Tobacco Use Types Packs/Day Years [...] Description 04/24/2025 11:30 AM EST Office Visit [facility] [address] [place] [address] Sheila Grant MD 505 [place] [address] 05/08/2025 10:30 AM EST Office Visit [facility] ADULT DENTAL [address] [place] [address] Panchito Lamas DDS [address] [place] [address] 05/29/2025 11:00 AM EST Office Visit [facility] ADULT DENTAL [address] [place] [address] Ulises Chiquita [address] [place] [address] 07/02/2025 1:00 PM EDT Office Visit [facility] OPTOMETRY [address] [place] [address] Seth, Zabrina, OD [address] [place] [address] 07/24/2025 2:00 PM EDT Office Visit [facility] ADULT DENTAL [address] [place] [address] Chiquita Montgomery [address] [place] [address] documented as of this encounter Procedures Procedure [...] documented as of this encounter Care Teams Counterintelligence/Humint Specialist Relationship Specialty Start Date End Date Nathalie Hsu MD [address] [place] [address] PCP - General Family Medicine 09/27/13 Shannan Barrow, RN [address] [place] [address] Registered Nurse 02/29/24 Lisbeth Johnson [address] [place] [address] 3rd [place] [address] Gastroenterology 03/15/24 Tonya Poole Board Certified Family PhysicianIntake Man 01/19/24 Sherin (A S) Registered Nurse 02/29/24 Marcos Verdin MD [place] [facility] [address] [place] [address] Cardiology 03/10/24 Omid Vincent Psychiatry 03/15/24 [employer] [facility] 05/17/22 documented as of this encounter
--- OUTSIDE RECORDS SUMMARY | 2025-04-01 03:06 | XMS_ITS | Encounter Summary ---
Author Organization [employer] Address [address] [place] [address], [place] [address] Care Team Providers Care Noc Technician Name Role Phone Blackwell, Nathalie ABDI Primary Care Provider + [phone] Shannan Barrow RN Unavailable [phone] Lisbeth Johnson Unavailable Encounter Details Date Type Department Care Team (Late st Contact Info) Description 04/01/2022 Orders Only [facility] MEDICINE [address] [place] [address] Anabell Weston, KHAI Social History Tobacco Use [...] 04/24/2025 11:30 AM EST Office Visit [facility] MED & PEDS [address] [place] [address] Sheila Grant MD [address] [place] [address] 05/08/2025 10:30 AM EST Office Visit [facility] ADULT DENTAL [address] [place] [address] Panchito Lamas DDS [address] [place] [address] 05/29/2025 11:00 AM EST Office Visit [facility] ADULT DENTAL [address] [place] [address] Chiquita Montgomery [address] [place] [address] 07/02/2025 1:00 PM EDT Office Visit [facility] OPTOMETRY [address] [place] [address] Seth, Zabrina, OD [address] [place] [address] 07/24/2025 2:00 PM EDT Office Visit [facility] ADULT DENTAL [address] [place] [address] Chiquita Montgomery [address] [place] [address] documented as of this encounter Visit Diagnoses Not on filedocumented in this encounter Care Teams Noc Technician Relationship Specialty Start Date End Date Nathalie Hsu MD [address] [place] [address] PCP - General Family Medicine 09/27/13 Shannan Barrow, RN [address] [place] [address] Registered Nurse 02/29/24 Lisbeth Johnson [address] [place] [address] Drive 3rd [place] [address] Gastroenterology 03/15/24 Tonya Poole Plodding Machine OperatorHoning Machine Set Up Operator 01/19/24 Sherin ([facility]) Registered Nurse 02/29/24 Marcos Verdin MD [place] [facility] [address] [place], [place] Cardiology 03/10/24 Omid Vincent Psychiatry 03/15/24 [employer] 05/17/22 documented as of this encounter
--- NOTE | 2025-04-01 03:57 | ED.CHESTPAIN ---
HPI - Chest Pain General Chief Complaint: Chest Pain Stated Complaint: CP 2WEEKS Time Seen by Provider: 04/01/25 01:48 Source: patient, EMS, RN notes reviewed, old records reviewed and hourly sign language interpreter Mode of arrival: EMS Limitations: language barrier History of Present Illness ED Provider: Dr. Ludmila Garcia HPI narrative: 65-year-old male with a history of pacemaker placement who presents to the ED for evaluation of chest pain and rib pain. The patient states he fell on Thanksgiving, striking his chest (?I fell and I hit here, and it hurts?) and has had persistent pain since that time. He reports associated bleeding at the site of impact and states the pain has worsened over the past two weeks, prompting today?s visit. Additional symptoms include intermittent headaches and an episode of ?blacking? out when he stood up. He endorses a subjective fever earlier today. He denies abdominal pain when palpated in the ED. He has avoided seeking care until now because he is ?afraid of needles.? He has been taking unspecified pain medications provided at home by a line palletizer named Sherin, who was unable to come yesterday due to snow. No prior evaluation has been obtained since the fall. No recent hospitalizations. Related Data Home Medications ?Medication ?Instructions ?Recorded ?Confirmed melatonin 5 mg tablet 2 tab PO BEDTIME PRN insomnia 10/18/20 01/23/24 atorvastatin 20 mg tablet 20 mg PO DAILY 11/18/20 01/23/24 blood pressure test kit-large #1 ea 11/18/20 02/09/23 lidocaine 5 % topical patch 1 patch topical DAILY 11/18/20 01/23/24 magnesium oxide 400 mg (241.3 mg 400 mg PO BID 11/18/20 01/23/24 magnesium) tablet pantoprazole 40 mg tablet,delayed 40 mg PO BID 11/18/20 01/23/24 release thiamine HCl (vitamin B1) 100 mg 100 mg PO DAILY 11/18/20 01/23/24 tablet olanzapine 5 mg tablet 1 tab PO BEDTIME 10/10/21 01/23/24 acetaminophen 500 mg tablet 500 mg PO BID PRN Mild Pain (Scale 05/11/22 01/23/24 Score 1-4) albuterol sulfate 90 mcg/actuation 2 puff inhalation Q4H PRN 05/11/22 01/23/24 aerosol inhaler (Ventolin HFA) Respiratory Distress buspirone 10 mg tablet 10 mg PO TID 05/11/22 01/23/24 sacubitril 24 mg-valsartan 26 mg 1 tab PO BID 06/12/22 01/23/24 tablet (Entresto) budesonide-formoterol HFA 160 2 puff inhalation BID 02/09/23 01/23/24 mcg-4.5 mcg/actuation aerosol inhaler (Symbicort) clopidogrel 75 mg tablet 75 mg PO DAILY 05/17/23 01/23/24 acamprosate 333 mg tablet,delayed 666 mg PO BID 09/15/23 01/23/24 release hydroxyzine pamoate 50 mg capsule 100 mg PO BEDTIME PRN insomnia 01/23/24 01/23/24 warfarin 5 mg tablet 5 mg PO DAILY 01/23/24 01/23/24 lactulose 10 gram/15 mL oral 30 ml PO TID 04/28/24 solution warfarin 10 mg tablet 10 mg PO DAILY 07/07/24 ferrous sulfate 325 mg (65 mg 325 mg PO QAM 07/28/24 iron) tablet,delayed release metoprolol succinate 25 mg 25 mg PO M 07/28/24 tablet,extended release 24 hr nicotine 14 mg/24 hr daily 1 patch topical [facility] 07/28/24 transdermal patch quetiapine 50 mg tablet 50 mg PO DAILY PRN 07/28/24 Previous Rx's ?Medication ?Instructions ?Recorded furosemide 40 mg tablet 40 mg PO DAILY #30 tabs 05/29/23 oxycodone 5 mg tablet 5 mg PO Q6H PRN pain #10 tabs 08/18/24 magnesium oxide 500 mg capsule 500 mg PO DAILY #30 caps 11/18/24 cefdinir 300 mg capsule 300 mg PO Q12H #20 caps 12/14/24 levofloxacin 750 mg tablet 750 mg PO DAILY #9 tabs 12/14/24 ondansetron 4 mg disintegrating 4 mg PO Q8H PRN nausea and 12/15/24 tablet vomiting #14 tabs rifaximin 550 mg tablet (Xifaxan) 550 mg PO BID #60 tabs 01/08/25 Allergies Allergy/AdvReac Type Severity Reaction Status Date / Time lorazepam (From ATIVAN) AdvReac Severe OPPOSITE Verified 04/01/25 01:02 EFFECT PSYCOTIC EFECTS Review of Systems Review of Systems: as per HPI, full review of systems performed and negative but for the above mentioned pertinent positives and negatives. [facility] Past Medical History Medical History Sepsis Rhabdomyolysis EDGAR (acute kidney injury) Supratherapeutic INR Fall Acute hyponatremia Intracranial hemorrhage Coronary artery disease Chronic systolic CHF (congestive heart failure) Hypertension Short-segment Harrell's esophagus Pacemaker Skull fracture Alcoholic liver disease Cocaine abuse Alcohol abuse Surgical History Aortic valve replaced S/P CABG (coronary artery bypass graft) H/O aortic valve replacement History of esophagogastroduodenoscopy (EGD) Social History Social History Household Members: None Housing: Apartment Do you presently have visiting nurse or other home services: Yes ([facility] director) Alcohol intake: current Alcohol intake frequency: a few times a week Alcohol type: beer Comment: pt refused, to have assistance with ambulation, chair and bed alarm Patient Tobacco Use Status: Current everyday Tobacco user Tobacco use type: Cigarette Cigarette Packs Per Day: 1 Cigarettes Per Day: 20.0 Smoked in Last 30 Days: Yes Second Hand Smoke Exposure: No Use of substances other than those prescribed or required for medical reasons: No Substance Use Type: Marijuana Advance Directives: Yes Advance Directives on File: Yes Advance Directives Date on File: 10/11/21 service: No Current occupational status: unemployed Physical Exam Exam: Exam: GENERAL: Chronically ill-appearing, conversant, no acute distress. SKIN: Normal skin color for ethnicity, warm, dry, no rashes noted. HEENT: Normocephalic, atraumatic, no stridor, posterior oropharynx nonerythematous, EOMI. NECK: Soft, supple, full ROM, midline structures nontender, no step-offs, no deformities, no lymphadenopathy. CHEST: Heart irregularly irregular rhythm, no murmurs, symmetric chest rise and fall, left lateral chest wall tenderness to palpation with voluntary guarding, no crepitus. PULMONARY: Clear to auscultation bilaterally, no labored breathing, no wheezes/rhales/ rhonchi. ABDOMINAL: Soft, nondistended, nontender, positive bowel sounds in all quadrants. : Deferred. MUSCULOSKELETAL: Normal tone, full range of motion, no deformities, no peripheral edema. NEURO: Alert and oriented to person, CN II through XII intact, no focal neurologic deficits. PSYCHIATRIC: Flat affect, fluid speech, appropriate demeanor. Vital Signs: Vital Signs: Last Vital Signs Temp 98.6 F 04/01/25 08:01 Pulse 76 04/01/25 08:01 Resp 18 04/01/25 08:01 BP 132/70 04/01/25 08:01 Pulse Ox 95 04/01/25 08:01 O2 Del Method Room Air 04/01/25 08:01 BMI result Body Mass Index 23.3 Medications Administered Discontinued Medications Generic Name Dose Route Start Last Admin Trade Name Freq PRN Reason Stop Dose Admin Gabapentin 300 mg 04/01/25 05:46 04/01/25 05:53 Gabapentin 300 Mg Capsule PO 04/01/25 05:47 300 mg ONCE ONE Administration Acetaminophen 1,000 mg in 100 mls @ 400 mls/hr 04/01/25 05:48 04/01/25 06:16 Ofirmev IV 04/01/25 06:02 Infused ONCE ONE Infusion Medical Decision Making Medical Decision Making [place] Narrative: Patient presents today with a chief complaint of chest pain. Differential diagnosis includes, but is not limited to, acute coronary syndrome, musculoskeletal pain, pneumothorax, GERD, pleurisy, pulmonary embolism, dissection, among others. I will order EKG, chest x-ray, laboratory workup including cardiac enzymes to further evaluate for etiology. Diagnosis: Chest/rib pain following fall; rule out rib fracture or other thoracic injury. Plan: - Pain control ? patient requesting medication; analgesia to be administered. - Further evaluation ? chest CT since he had no chest imaging after his fall in February. - Monitor vitals and reassess symptoms. Differential Diagnosis Differential Diagnoses: The differential diagnosis associated with the presentation includes (as above) Admission/Observation Consideration of admission/observation: Escalation of care including admission/observation considered Lab Data [place] Lab Attestation statement: I reviewed the patient's lab results. 04/01/25 01:05 04/01/25 01:05 Labs: Lab Results 04/01/25 Range/Units 01:05 WBC 5.3 (4.8-10.8) X10*3/uL RBC 3.89 L (4.60-5.80) X10*6/uL Hgb 13.0 L (14.0-18.0) g/dl Hct 39.1 L (42.0-52.0) % MCV 100.5 H (80.0-98.0) fL MCH 33.4 H (27.0-33.0) pg MCHC 33.2 (31.0-36.0) g/dl RDW 16.2 H (11.0-16.0) % Plt Count 196 (160-400) X10*3/uL MPV 9.5 (9.4-12.4) fL Immature Gran % (Auto) 0.9 H (0.0-0.4) % Neut % (Auto) 60.4 (45-73) % Lymph % (Auto) 20.6 (20-40) % [place] % (Auto) 16.7 H (2-11) % Eos % (Auto) 0.6 (0-4) % Baso % (Auto) 0.8 (0-2) % Lymph # (Auto) 1.1 L (1.2-4.9) X10*3/uL [place] # (Auto) 0.9 (0.1-1.2) X10*3/uL Eos # (Auto) 0.0 (0.0-0.4) X10*3/uL Baso # (Auto) 0.0 (0.0-0.2) X10*3/uL Abs Immat Gran (auto) 0.05 H (0.00-0.03) X10*3/uL Absolute Neuts (auto) 3.2 (2.0-8.3) x10*3/uL Absolute Nucleated RBC 0.000 (0.0-0.012) X10*3/uL Nucleated RBC % (auto) 0.0 (0.0-0.2) /100WBC PT 48.4 H (11.2-13.5) SEC INR 4.1 H (0.9-1.1) Sodium 133 L (135-145) mmol/L Potassium 4.4 D (3.3-5.1) mmol/L Chloride 107 (96-108) mmol/L Carbon Dioxide 18 L (22-29) mmol/L Anion Gap 12 (12-20) BUN 14 (9-16) mg/dL Creatinine 1.07 (0.5-1.4) mg/dL Estim Creat Clear Calc 53.8 Estimated GFR > 60 Fasting Glucose 96 (60-99) mg/dL Calcium 8.6 D (8.4-10.2) mg/dL Magnesium 1.7 (1.6-2.6) mg/dL Total Bilirubin 0.2 (0.0-1.0) mg/dL AST 34 (5-37) U/L ALT 14 (0-40) U/L Alkaline Phosphatase 160 H (39-117) U/L Troponin I High Sens 3.2 (<3.5-35.0) ng/L Total Protein 6.9 (6.5-8.0) g/dL Albumin 3.5 (3.5-5.0) g/dL Influenza Type A (PCR) NEGATIVE (Negative) Influenza Type B (PCR) NEGATIVE (Negative) RSV RNA Qual (PCR) NEGATIVE (Negative) SARS-CoV-2 RNA (RT-PCR) NEGATIVE (Negative) Independent Interpretation I performed an independent interpretation of an: EKG and Plain X-Ray Interpretation: My independent interpretation of the chest x-ray reveals no consolidations, pulmonary edema, pleural effusion, pneumothorax, obvious bony abnormalities, pacemaker in place. EKG shows a paced rhythm, no evidence of ischemia Radiology Impression Discussion of test interpretation with radiology: I have reviewed the radiologist's reading. Radiologist Impression: CT chest without contrast Comparison: 08/31/2024 Findings: The heart is normal size. The visualized thyroid and mediastinum are unremarkable. No consolidation or effusion. The visualized upper abdomen is unremarkable. 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 There are no acute fractures. IMPRESSION: 1. No acute findings Independent Historian Clinical information obtained from an independent historian. History obtained from or confirmed by: EMS External Record Review External record reviewed: Inpatient record Prescription Management I considered prescription management with: Pain Medication Chronic Conditions Patient?s care impacted by: Diabetes, Hypertension and Other (Atrial fibrillation) Social Determinants Patient?s care significantly limited by Social Determinants of Health including: Problems related to primary support group and Other Social Determinant of Health Discharge Plan Discharge Clinical Impression: Atypical chest pain, Multiple rib fractures Patient Disposition: Home, Self-Care Instructions: Chest Wall Pain (ED), Rib Fracture (ED) Additional Instructions: DIAGNOSIS & TREATMENT: You were seen in the Emergency Department for your chest discomfort. We performed an EKG, laboratory work and chest xray which did not reveal any acute abnormalities that would explain your symptoms. FURTHER CARE: We have not found any emergent physical exam or lab abnormalities that would require admission to the hospital today. Many people who come to the ER with chest discomfort do not leave with a specific diagnosis at the end of their visit. In the Emergency Department we try to make sure that there is no emergent problem that needs admission to the hospital or antibiotics right now. This does not mean that your evaluation is complete--please be sure to follow up with your regular doctor as additional testing as an outpatient may be indicated. Please be certain to drink plenty of fluids over the next several days. Take your gabapentin as needed for chest pain. WHEN YOU SHOULD BE SEEN NEXT: Please follow-up with your primary care provider within the next 2-3 days for reevaluation of your symptoms. WHEN TO RETURN TO THE ED: Monitor your symptoms closely and return to the emergency department immediately for any new/worsening symptoms including: Worsening chest pain, difficulty breathing, fevers greater than 100 degrees, passing out, any new symptom that concerns you. Call 911 with any medical emergency. Prescriptions: No Action Xifaxan 550 mg tablet 550 mg PO BID Qty: 60 3RF melatonin 5 mg tablet 2 tab PO BEDTIME PRN (Reason: insomnia) olanzapine 5 mg tablet 1 tab PO BEDTIME acetaminophen 500 mg Tablet 500 mg PO BID PRN (Reason: Mild Pain (Scale Score 1-4)) buspirone 10 mg Tablet 10 mg PO TID albuterol sulfate [Ventolin HFA] 90 mcg/actuation Hfa Aerosol Inhaler 2 puff INHALATION Q4H PRN (Reason: Respiratory Distress) acamprosate 333 mg tablet,delayed release (DR/EC) 666 mg PO BID hydroxyzine pamoate 50 mg capsule 100 mg PO BEDTIME PRN (Reason: insomnia) warfarin 5 mg tablet 5 mg PO DAILY magnesium oxide 500 mg capsule 500 mg PO DAILY Qty: 30 0RF cefdinir 300 mg capsule 300 mg PO Q12H Qty: 20 0RF levofloxacin 750 mg tablet 750 mg PO DAILY Qty: 9 0RF ondansetron 4 mg tablet,disintegrating 4 mg PO Q8H PRN (Reason: nausea and vomiting) Qty: 14 0RF budesonide-formoterol [Symbicort] 160-4.5 mcg/actuation HFA aerosol inhaler 2 puff inhalation BID clopidogrel 75 mg tablet 75 mg PO DAILY furosemide 40 mg Tablet 40 mg PO DAILY Qty: 30 0RF Protocol: Hold for SBP< HOLD for SBP < : 90 oxycodone 5 mg tablet 5 mg PO Q6H PRN (Reason: pain) Qty: 10 0RF Rx Instructions: Partial Fill upon patient request. pantoprazole 40 mg tablet,delayed release (DR/EC) 40 mg PO BID magnesium oxide 400 mg (241.3 mg magnesium) tablet 400 mg PO BID thiamine HCl (vitamin B1) 100 mg tablet 100 mg PO DAILY atorvastatin 20 mg tablet 20 mg PO DAILY (DME) blood pressure test kit-large Kit See Rx Instructions .ROUTE DIRECTED Qty: 1 Rx Instructions: As directed lidocaine 5 % adhesive patch,medicated 1 patch topical DAILY Protocol: Apply to: Apply to: AFFECTED AREA Entresto 24-26 mg tablet 1 tab PO BID lactulose 10 gram/15 mL solution 30 ml PO TID quetiapine 50 mg tablet 50 mg PO DAILY PRN nicotine 14 mg/24 hr patch 24 hour 1 patch topical QAM metoprolol succinate 25 mg tablet extended release 24 hr 25 mg PO QAM ferrous sulfate 325 mg (65 mg iron) tablet,delayed release (DR/EC) 325 mg PO QAM warfarin 10 mg tablet 10 mg PO DAILY Print Language: Sami
[2025-04-01 05:22] VITALS: BP 140/90; PULSE 87; RESP 22; TEMP 36.5; O2SAT 95
[2025-04-01 05:55] VITALS: BP 137/71; PULSE 80; RESP 18; TEMP 36.9; O2SAT 96
[2025-04-01 08:01] VITALS: BP 132/70; PULSE 76; RESP 18; TEMP 37; O2SAT 95
[2025-04-01 09:23] VITALS: BP 132/70; PULSE 76; RESP 18; TEMP 37; O2SAT 95
== END 2025-04-01 09:23 | disposition home or self-care (01) ==
PROVIDERS: Emergency Provider Emergency Medicine
DX: R07.89 Other chest pain (principal); S22.42XD Multiple fractures of ribs, left side, subsequent encounter for fracture with routine healing; X58.XXXD Exposure to other specified factors, subsequent encounter; I49.1 Atrial premature depolarization; Z03.818 Encounter for observation for suspected exposure to other biological agents ruled out; I10 Essential (primary) hypertension; F17.200 Nicotine dependence, unspecified, uncomplicated; Z71.6 Tobacco abuse counseling; Z95.0 Presence of cardiac pacemaker
CPT/HCPCS: 71046; 71250; 80053; 83735; 84484; 85025; 85610; 87637; 93005; 96365; 99284; J0131

== ENCOUNTER → 2025-04-01 00:54 | Outpatient (BNV) | payer MEDICAID, SELFPAY | PROVIDERS: Emergency Provider Emergency Medicine; Visit Provider Internal Medicine Cardiovascular Disease | DX: I49.1 Atrial premature depolarization (principal); Z95.0 Presence of cardiac pacemaker | CPT/HCPCS: 93010 ==

== ENCOUNTER → 2025-04-01 01:44 | Outpatient (BNV) | payer MEDICAID, SELFPAY | PROVIDERS: Emergency Provider Emergency Medicine; Visit Provider Radiology Diagnostic Radiology | DX: R07.89 Other chest pain (principal); Z04.3 Encounter for examination and observation following other accident; R07.9 Chest pain, unspecified | CPT/HCPCS: 71046; 71250 ==